=== PATIENT | female | born 1995 | race Caucasian/White ===

== ENCOUNTER 2022-10-13 19:51 | Outpatient (REF) | payer OTHER, SELFPAY ==
[2022-10-19 15:08] LABS: Age Gdln ACOG Testing Note (.); IGP, rfx Aptima HPV ASCU Note (.)
== END 2022-10-13 19:52 | disposition home or self-care (01) ==
LOC: LAB 19:51
PROVIDERS: Visit Provider Obstetrics & Gynecology
DX: Z01.419 Encounter for gynecological examination (general) (routine) without abnormal findings (principal)
CPT/HCPCS: G0145

== ENCOUNTER 2022-11-17 14:28 | Outpatient (OUT) | payer OTHER, SELFPAY ==
--- NOTE | 2022-11-17 14:32 | US_ITS ---
The [address] [address] Patient Name: ADINA RENE MRN: [id number] date: 1995 Sex: F Assigned Patient Location: [place] Current Patient Location: [place] Accession/Order Number: [id number] Exam Date: 11/17/2022 14:33 Report Date: 11/17/2022 15:41 At the request of: RAFAEL BORDEN Procedure: US pelvis w/ transvaginal EXAM: US pelvis w/ transvaginal HISTORY: PELVIC PAIN COMPARISON: Pelvic ultrasound 11/12/2020. TECHNIQUE: Real-time transabdominal and transvaginal imaging of the pelvis. Findings: Evaluation is limited due to patient's body habitus. The uterus measures 8.4 x 5.0 x 6.6 cm. Unremarkable parenchymal echotexture. No intrauterine mass. The endometrium is 0.9 cm thick. No fluid within the endometrial canal. The right ovary is not visualized due to overlying bowel gas. The left ovary measures 2.0 x 1.4 x 2.9 cm and is unremarkable.Blood flow is identified in the left ovary. No adnexal mass or free pelvic fluid. US/US pelvis w/ transvaginal IMPRESSION: 1. Nonvisualization of the right ovary. Otherwise, unremarkable pelvic ultrasound for age. Electronically authenticated by: STEPHANIE MUÑOZ Date: 11/17/2022 15:41
== END 2022-11-17 14:29 | disposition home or self-care (01) ==
LOC: US 14:28
PROVIDERS: Visit Provider Obstetrics & Gynecology
DX: R10.2 Pelvic and perineal pain (principal)
CPT/HCPCS: 76830; 76856

== ENCOUNTER 2023-10-18 21:51 | Outpatient (REF) | payer OTHER, SELFPAY ==
[2023-10-24 14:10] LABS: Age Gdln ACOG Testing Note (.); IGP, rfx Aptima HPV ASCU Note (.)
== END 2023-10-18 21:52 | disposition home or self-care (01) ==
LOC: LAB 21:51
PROVIDERS: Visit Provider Obstetrics & Gynecology
DX: Z01.419 Encounter for gynecological examination (general) (routine) without abnormal findings (principal)
CPT/HCPCS: 88175

== ENCOUNTER 2024-09-16 21:44 | Emergency (ER) | payer OTHER, SELFPAY ==
--- OUTSIDE RECORDS SUMMARY | 2013-11-24 09:40 | XMS_ITS | Continuity of Care Document ---
Author Organization [facility] Address [address] [facility] [place] [address] Phone Care Team Providers Care Service Desk Team Lead Name Role Phone Filomena Alvarado CNP, CNP Unavailable Un available Allergies, Adverse Reactions, Alerts Substance Reaction Status Criticality No Known Allergies Active No Inform ation Medications Medication Instructions Dosage Effective Dates (start - stop) Status Comments Sprintec (28) 0.25 mg-35 mcg tablet take 1 tablet by oral route every day 1.00 tablet - Active tobramycin 0.3 % eye drops instill 1 drop by ophthalmic route every 4 hours into affected eye(s) 1.00 drop - Active Procedures Procedure Date OFFICE/OUTPATIENT VISIT, [facility] Advance Directives Directive Yes / No Effective Date File Name No Information Encounters Encounter Description Practice Location Reason(s) For Visit Diagnoses Date Provider Providers Copied on Encounter OFFICE/OUTPA TIENT VISIT, [address] [facility], [address] [facility] [address], [place], [place], [id number] , [place] tel:[phone] [facility] eye problem (chief complaint) Conjunctivitis [address] [facility] [address], [place], [place], [id number], [place]. tel:[phone] Referring Provider: Filomena mckeon CNP, [facility] [address], [place], [address]. tel:[phone] Family History Family Member Type Diagnosis Age At Onset No Information Payers Payer name Insurance type Covered republican ID Authoriza tililiana(s) [facility] [id number] Social History Type Description Quantity Date Captured Comments Alcohol Use Details Unknown Caffeine Use Details Unknown Tobacco Use Status Never smoked tobacco 2013 Smoking Status Never smoker Non-Smoking Tobacco Use Details : No Details Available : No Details Available Sex Female Vital Signs Date / Time: Height Weight BMI Pulse Rate Blood Pressure Temperature Respiratory Rate Body Surface Area Head Circumference Head Circ. Percentile Wt./[place]. Percentile BMI percentile Pulse Ox Inhaled Ox 2:05 PM 112.037 kg (247.00 lbs) 82 /min 126/80 mm[Hg] 98.20 F 14 /min Chief Complaint And Reason For Visit From encounter dated '11/24/2013 13:40'. eye problem (chief complaint). Description: Onset: 1 Week. The problem is severe. The problem has worsened. The symptoms are persistent. Symptoms located at left upper lid and left conjunctiva. Discomfort is described as dull pain and sharp pain. Patient reports no discharge. Symptoms are associated with contact lens use. Symptoms are not associated with exposure to pink eye. Aggravating factors include contact lenses and light. Symptoms are relieved by OTC eye drops. Associated symptoms include eye pain, headache and rhinorrhea. Pertinent negatives include blurred vision. Reason For Referral Reason For Referral No Information History Of Present Illness Encounter Date Complaint History Of Prese nt Illness eye problem Onset: 1 Week. T he problem is severe. The problem has worsened. The symptoms are persistent. Symptoms located at left upper lid and left conjunctiva. Discomfort is described as dull pain and sharp pain. Patient reports no discharge. Symptoms are associated with contact lens use. Symptoms are not associated with exposure to pink eye. Aggravating factors include contact lenses and light. Symptoms are relieved by OTC eye drops. Associated symptoms include eye pain, headache and rhinorrhea. Pertinent negatives include blurred vision. Functional Status Date Functional Assessmen t No Information Instructions Date Instruction Additional Infor mation see plan detail Related to Conju nctivitis Assessments Type Assessment Date assessment Conjunctivitis Mental Status Date Cognitive Assessment Orientation - Gunter ed to time, place, person, situation. Patient Care Teams Name Effective Dates (start - stop) Status Members No Information
--- OUTSIDE RECORDS SUMMARY | 2024-09-12 08:44 | XMS_ITS ---
Author Name Auto Generated Organization OHIP Care Team Providers Care Preparatory Technician Name Role Phone QUIQUE VARGAS Attending Unavailable ROXANN, LINNEA J Primary Care Unavailable QUIQUE VARGAS Attending Unavailable QUIQUE VARGAS Referring Unavailable ROXANN, LINNEA J Primary Care Unavailable QUIQUE VARGAS M Referring Unavailable ROXANN, LINNEA J Primary Care Unavailable ROXANN LINNEA J Attending Unavailable ROXANN LINNEA J Attending Unavailable ROXANNALBERTINAH J Attending Unavailable RAFAEL BORDEN Attending Unavailable ROXANN, LINNEA J Attending Unavailable ROXANN, LINNEA J Attending Unavailable Roxann, Linnea J Primary Care Unavailable Kuns - CHC, Black P Admitting Unavailable Kuns - CHC, Black P Attending Unavailable Roxann, Linnea J Admitting Unavailable Roxann, Linnea J Primary Care Unavailable Roxann, Linnea J Attending Unavailable Quique Vargas Attending Unavailable Nidia Hughes Referring Unavailable Roxann, Linnea J Primary Care Unavailable Steven Vargasan Admitting Unavailable ROXANN, Linnea J Admitting Unavailable ROXANN, Linnea J Attending Unavailable Cliff Gusman. Attending Unavailable Cliff Gusman. Attending Unavailable Santos Booker Attending Unavailable Cliff Gusman Attending Unavailable Linnea HACKETT Admitting Unavailable Linnea HACKETT Attending Unavailable MOSHE MANRIQUEZ Attending Unavailable LINNEA HACKETT Primary Care Unavailabl e ROXANN, LINNEA KAISER Primary Care Unavailabl e BOBO SLAUGHTER Attending Unavailable KIMBERLY HENDERSON Referring Unavailable RUDDY SLATER Referring Unavailable KIMBERLY HENDERSON Attending Unavailable LINNEA HACKETT Primary Care Unavailabl e PROBLEMS DATE TYPE CONDITION / CODE ATTENDING STATUS [facility] 09/12/2024 Admitting Diagnosis Type 2 diabetes mellitus without complications / E11.9(ICD-10) QUIQUE VARGAS [facility] 08/29/2024 Active Abdominal bloati ng / R14.0(ICD-10) BOBO SLAUGHTER [facility] 08/29/2024 Active Epigastric pain / R10.13(ICD-10) BOBO SLAUGHTER Active [facility] 07/30/2024 Active Dyspepsia / R10.13(ICD-10) KIMBERLY HENDERSON Active [facility] 07/30/2024 Active Unintentional we ight loss / R63.4(ICD-10) KIMBERLY HENDERSON Active [facility] 06/21/2024 Active Generalized abdominal pain / R10.84(ICD-10) MOSHE MANRIQUEZ Active [facility] 06/21/2024 Active Nausea and vomit ing, unspecified vomiting type / R11.2(ICD-10) MOSHE MANRIQUEZ Active [facility] 06/21/2024 Active Decreased appeti te / R63.0(ICD-10) MOSHE MANRIQUEZ Active [facility] 06/21/2024 Active Acute cystitis w ith hematuria / N30.01(ICD-10) MOSHE MANRIQUEZ Active [facility] 05/08/2024 Admitting Diagnosis Postural orthostatic tachycardia syndrome (POTS) / G90.A(ICD-10) QUIQUE VARGAS [facility] 05/08/2024 Admitting Diagnosis Syncope and collapse / R55(ICD-10) QUIQUE VARGAS [facility] 05/08/2024 Admitting Diagnosis Hypothyroidism, unspecified / E03.9(ICD-10) [facility] 05/08/2024 Admitting Diagnosis Body mass index (BMI) 40.0-44.9, adult (Multi) / Z68.41(ICD-10) [facility] 05/08/2024 Admitting Diagnosis Other specified health status / Z78.9(ICD-10) [facility] PROCEDURES No Procedure Records Found RESULTS ANES POSTPROC EVAL Observed: 08/30/2024 12:18 PM Status: COMPLETED Source: [facility] HNO ID: [id number] Author: CAMI ESPINOSA APRN.CRNA Service: Anesthesiology Author Type: Nurse Oxygraph Operator Type: Anesthesia Postprocedure Evaluation Filed: 08/30/2024 12:20 Note Text: POST ANESTHESIA EVALUATION NOTE : 1995 Procedure Summary Date: 08/29/24 Room / Location: Ambulatory Surgery Anesthesia Start: 1111 Anesthesia Stop: 1139 Procedures: EGD DIAGNOSTIC COLONOSCOPY DIAGNOSTIC Diagnosis: Nausea and vomiting, unspecified vomiting type Abdominal bloating Epigastric pain Scheduled Providers: Bobo Slaughter MD Responsible Provider: Cami Espinosa APRN.CRNA Anesthesia Type: MAC ASA Status: 3 Anesthesia Type: MAC Last Vitals Vitals Value Taken Time BP 128/77 08/29/24 1205 Temp 08/30/24 1218 HR SpO2 80 08/29/24 1207 Resp 16 08/29/24 1205 SpO2 99 % 08/29/24 1207 Vitals shown include unfiled device data. Post Anesthesia Patient Status Patient Evaluation: bedside. Anticipated Disposition: phase 2 then home. Neurological Status: aware and responsive. Pulmonary Status: breathing comfortably on room air Airway Control: returned to baseline unsupported. Cardiovascular Status: stable. Pain Management: clinically adequate Postoperative Hydration: acceptable. Intraoperative Events: no significant anesthesia events Post Operative Nausea/Vomiting Status: no significant post operative nausea or vomiting Recommendation: continue current plan of care. 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 Refer to note in patient chart for documentation of history and physical. Last Colonoscopy: none. The patient's first colonoscopy is today. Referring Physician: Kimberly Henderson CNP (Referring MD), Linnea Hackett (Referring MD) Medicines: Monitored Anesthesia Care Complications: No immediate complications. Requesting Provider: Procedure: Pre-Anesthesia Assessment: - Prior to the procedure, a History and Physical was performed, and patient medications and allergies were reviewed. The patient is competent. The risks and benefits of the procedure and the sedation options and risks were discussed with the patient. All questions were answered and informed consent was obtained. Patient identification and proposed procedure were verified by the physician, the nurse and the bridge instructor in the procedure room at 11:11. Mental Status Examination: alert and oriented. Airway Examination: normal oropharyngeal airway and neck mobility. Respiratory Examination: clear to auscultation. CV Examination: normal. Prophylactic Antibiotics: The patient does not require prophylactic antibiotics. Prior Anticoagulants: The patient has taken no anticoagulant or antiplatelet agents. ASA Grade Assessment: II - A patient with mild systemic disease. After reviewing the risks and benefits, the patient was deemed in satisfactory condition to undergo the procedure. The anesthesia plan was to use monitored anesthesia care (MAC). Immediately prior to administration of medications, the patient was re-assessed for adequacy to receive sedatives. The heart rate, respiratory rate, oxygen saturations, blood pressure, adequacy of pulmonary ventilation, and response to care were monitored throughout the procedure. The physical status of the patient was re-assessed after the procedure. After I obtained informed consent, the scope was passed under direct vision. Throughout the procedure, the patient's blood pressure, pulse, and oxygen saturations were monitored continuously. The Colonoscope was introduced through the anus and advanced to the terminal ileum, with identification of the appendiceal orifice and IC valve. I was present and participated during the entire procedure, including non-mendez portions, and during the administration and monitoring of Moderate Sedation. The colonoscopy was performed without difficulty. The patient tolerated the procedure well. The quality of the bowel preparation was good. The terminal ileum, ileocecal valve, appendiceal orifice, and rectum were photographed. Scope Withdrawal Time: 0 hours 8 minutes 40 seconds Moderate Sedation: MAC anesthesia was administered by the anesthesia team. Findings: The perianal and digital rectal examinations were normal. Pertinent negatives include normal sphincter tone. The colon (entire examined portion) appeared normal. There is no endoscopic evidence of bleeding, diverticula, erythema, inflammation, mass, polyps, stenosis, stricture or ulcerations in the entire colon. The terminal ileum appeared normal. Impression: - The entire examined colon is normal. - The examined portion of the ileum was normal. - No specimens collected. Recommendation: - Patient has a contact number available for emergencies. The signs and symptoms of potential delayed complications were discussed with the patient. Return to normal activities tomorrow. Written discharge instructions were provided to the patient. - Resume previous diet. - Continue present medications. - Repeat colonoscopy at age 45 for surveillance. - Return to referring physician PRN. - Use Citrucel one tablespoon PO daily indefinitely. - Discharge patient to home (ambulatory). Procedure Code(s): --- Professional --- 21759, Colonoscopy, flexible; diagnostic, including collection of specimen(s) by brushing or washing, when performed (separate procedure) Diagnosis Code(s): --- Professional --- R10.84, Generalized abdominal pain CPT copyright 2020 [employer]. All rights reserved. The codes documented in this report are preliminary and upon pharmacist assistant review may be revised to meet current compliance requirements. Scope In: 11:25:29 AM Scope Out: 11:38:57 AM MD Bobo Sparks MD 08/29/2024 11:41:28 AM This report has been signed electronically by Bobo Slaughter MD Number of Addenda: 0 Note Initiated On: 08/29/2024 11:23 AM Estimated Blood Loss: Estimated blood loss: none. TISS PATH BX REPORT Collected: 08/30/19 11:16 AM Status: F Source: [facility] Order Comment: Specimen Type : TISSUE SPECIMEN Ordering Facility: [facility] Address: [address] [place] [address] TYPE CODE TESTS RESULT OUT OF RANGE REFERENCE UNITS PATHOLOGY [id number] CASE REPORT Result Comment: Surgical Pat hology Report Case: [id number] Authorizing Provider: Bobo Slaughter MD Collected: 08/29/2024 11:16 AM Ordering Location: Ambulatory Surgery Received: 08/29/2024 08:14 PM Pathologist: Ed Pruett MD, PhD Specimens: A) - Small Bowel, Duodenum, Biopsy, r/o celiac B) - Stomach, Biopsy, r/o h. pylori C) - Esophagus, Biopsy, r/o eoe and barretts PATHOLOGY [id number] FINAL DIAGNOSIS Result Comment: A. Duodenum, biopsy: - Duodenal mucosa with no significant diagnostic abnormality. B. Stomach, biopsy: - Reactive gastric antral and oxyntic mucosa with focal minimally active inflammation. - No evidence of H. pylori microorganisms on H&E sections. C. Esophagus, biopsy: - Reactive squamous mucosa and inflamed gastric cardia-type mucosa, negative for intestinal metaplasia. at 1549 EDT PATHOLOGY [id number] GROSS DESCRIPTION Result Comment: A. Small [place] el, Duodenum, Biopsy Received in formalin are multiple pieces of payne-brown, soft tissue aggregating to 1.0 x 0.3 x 0.2 cm. Totally submitted in one cassette. B. Stomach, Biopsy Received in formalin are multiple pieces of payne-brown, soft tissue aggregating to 1.6 x 0.4 x 0.2 cm. Totally submitted in one cassette. C. Esophagus, Biopsy Received in formalin are multiple pieces of payne, soft tissue aggregating to 1.8 x 0.3 x 0.2 cm. Totally submitted in one cassette. DL August 30, 2024 12:14 AM Gross examination performed at [facility], [address] [place] [address] PATHOLOGY [facility] FINAL PERFORMING LAB Result Comment: Diagnostic i nterpretation performed at: [facility], [address] [place] [address], Desk [place] [id number] CLIA# [id number] Mandrel Maker: Jose Heaton MD PATHOLOGY [id number] AP DISCLAIMER Result Comment: Laboratory D eveloped Test (LDT) Disclaimer: Performance characteristics of immunohistochemical, immunofluorescent, and chromogenic in-situ hybridization tests have been determined by the performing laboratory within [facility]'s Erick Macias Pathology and Laboratory Medicine Department ([facility], [facility], [facility], [facility], [facility], Count Includes [facility], or [facility]) in a manner consistent with CLIA requirements. One or more of these tests may not have been cleared or approved by the FDA. [facility] is regulated under CLIA as qualified to perform high-complexity testing. These tests are used for clinical purposes. These should not be regarded as investigational or for research. Positive and negative controls stain appropriately. Performed By: #### [id number] # ### [facility] CLIA [id number] [address] [place] [address] [place] HISTORY PHYSICAL Observed: 08/29/2024 11:15 AM Status: COMPLETED Source: [facility] HNO ID: [id number] Author: BOBO SLAUGHTER MD Service: Gastroenterology Author Type: Physician Type: H&P Filed: 08/29/2024 11:05 Note Text: HISTORY AND PHYSICAL Adina Rene, 29 year old female Current history and physical on file: Yes Is a new History and Physical required for today's visit? Yes Indication for procedure: Abdominal pain and Nausea AND Vomiting PROCEDURE(S) SCHEDULED FOR: Colonoscopy with or without biopsies and with or without removal of polyps or lesions, dilation (any means), treatment of bleeding (any means), based on clinical findings. and EGD (Esophagogastroduodenoscopy) with or without biopsies, removal of polyps or lesions, dilation ( any means), treatment of bleeding ( any means), Barrx treatment of Mannie's Esophagus, image tube placement or cryo therapy treatment based on clinical findings. BASELINE BEHAVIOR: Calm BASELINE ORIENTATION: A AND O x3 All medications and allergies reviewed: Yes Skin Assessment: Warm dry mucus membranes pink Airway/Respiratory Assessment: Airway: visualization of the uvula- Yes Mouth: opening greater than 2 fingerbreadths- Yes Neck: full range of motion- Yes Breath sounds clear/equal- Yes Cardiac Assessment: Regular rate and rhythm without murmur Abdominal Assessment: Abdomen soft, non-tender, no masses or organomegaly. Sedation Plan: MAC Additional Comments: None Bobo Slaughter MD NURSING PROG Observed: 08/29/2024 11:08 AM Status: COMPLETED Source: [facility] HNO ID: [id number] Author: TASIA EL RN Service: Nursing Author Type: Registered Nurse Type: Nursing Progress Note Filed: 08/29/2024 11:09 Note Text: PRE OP LEARNING ASSESSMENT PROCEDURE/SURGERY: GI PROCEDURES: Colonoscopy and EGD READINESS TO LEARN COGNITIVE ABILITY: Alert and oriented MOTIVATION TO LEARN: Interested FAMILY SUPPORT: Unable to assess - Family not present PATIENT LEARNS BEST BY: Individual Instruction Verbal Instruction FACTORS AFFECTING LEARNING: None PHYSICAL LIMITATIONS AFFECTING LEARNING: None Electronically Signed By: Tasia El RN In Department: AMBULATORY SURGERY UPPER GI ENDOSCOPY Observed: 08/29/2024 11:02 AM Status: C Source: [facility] G[facility] Patient Name: Adina Rene Procedure Date: 08/29/2024 11:02 AM Date of : 1995 Admit Type: Outpatient Age: 29 Room: [facility] 1 Gender: Female 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 Refer to note in patient chart for documentation of history and physical. Patient has symptoms of acute dyspepsia and acute vomiting. Referring Physician: Kimberly Henderson CNP (Referring MD), Linnea Hackett (Referring MD) Medicines: Monitored Anesthesia Care Complications: No immediate complications. Requesting Provider: Procedure: Pre-Anesthesia Assessment: - Prior to the procedure, a History and Physical was performed, and patient medications and allergies were reviewed. The patient is competent. The risks and benefits of the procedure and the sedation options and risks were discussed with the patient. All questions were answered and informed consent was obtained. Patient identification and proposed procedure were verified by the physician, the nurse and the bridge instructor in the procedure room at 11:11. Mental Status Examination: alert and oriented. Airway Examination: normal oropharyngeal airway and neck mobility. Respiratory Examination: clear to auscultation. CV Examination: normal. Prophylactic Antibiotics: The patient does not require prophylactic antibiotics. Prior Anticoagulants: The patient has taken no anticoagulant or antiplatelet agents. ASA Grade Assessment: II - A patient with mild systemic disease. After reviewing the risks and benefits, the patient was deemed in satisfactory condition to undergo the procedure. The anesthesia plan was to use monitored anesthesia care (MAC). Immediately prior to administration of medications, the patient was re-assessed for adequacy to receive sedatives. The heart rate, respiratory rate, oxygen saturations, blood pressure, adequacy of pulmonary ventilation, and response to care were monitored throughout the procedure. The physical status of the patient was re-assessed after the procedure. After obtaining informed consent, the endoscope was passed under direct vision. Throughout the procedure, the patient's blood pressure, pulse, and oxygen saturations were monitored continuously. The Endoscope was introduced through the mouth, and advanced to the third part of duodenum. I was present and participated during the entire procedure, including non-mendez portions, and during the administration and monitoring of Moderate Sedation. The upper GI endoscopy was accomplished without difficulty. The patient tolerated the procedure well. Moderate Sedation: MAC anesthesia was administered by the anesthesia team. Findings: LA Grade A (one or more mucosal breaks less than 5 mm, not extending between tops of 2 mucosal folds) esophagitis with no bleeding was found 37 to 38 cm from the incisors. Biopsies were taken with a cold forceps for histology. The exam of the esophagus was otherwise normal. The entire examined stomach was normal. Biopsies were taken with a cold forceps for histology. The examined duodenum was normal. Biopsies were taken with a cold forceps for histology. Impression: - LA Grade A reflux esophagitis with no bleeding. Biopsied. - Normal stomach. Biopsied. - Normal examined duodenum. Biopsied. Recommendation: - Await pathology results. - Resume previous diet. - Continue present medications. - Observe patient's clinical course. - Discharge patient to home (ambulatory). - Perform a colonoscopy today. Procedure Code(s): --- Professional --- 27888, Esophagogastroduodenoscopy, flexible, transoral; with biopsy, single or multiple Diagnosis Code(s): --- Professional --- K21.00, Gastro-esophageal reflux disease with esophagitis, without bleeding R11.2, Nausea with vomiting, unspecified CPT copyright 2020 [employer]. All rights reserved. The codes documented in this report are preliminary and upon pharmacist assistant review may be revised to meet current compliance requirements. Scope In: 11:15:53 AM Scope Out: 11:20:18 AM MD Bobo Sparks MD 08/29/2024 11:23:44 AM This report has been signed electronically by Bobo Slaughter MD Number of Addenda: 0 Note Initiated On: 08/29/2024 11:02 AM Estimated Blood Loss: Estimated blood loss: none. ANES PRE-OP Observed: 08/29/2024 11:00 AM Status: COMPLETED Source: [facility] HNO ID: [id number] Author: CAMI ESPINOSA APRN.CRNA Service: Anesthesiology Author Type: Nurse Oxygraph Operator Type: Anesthesia Preprocedure Evaluation Filed: 08/29/2024 11:03 Note Text: ANESTHESIOLOGY DAY OF SURGERY NOTE : 1995 Procedure Information Date/Time: 08/29/24 1115 Scheduled providers: Bobo Slaughter MD Procedures: EGD DIAGNOSTIC COLONOSCOPY DIAGNOSTIC Location: Ambulatory Surgery Estimated body mass index is 41.78 kg/m? as calculated from the following: Height as of 06/21/24: 172.7 cm (5' 8 ). Weight as of 07/30/24: 124.6 kg (274 lb 12.9 oz). Most recent hematocrit and potassium results: Hematocrit 38.2 06/21/2024 Potassium 4.0 06/21/2024 Relevant Problems ENDO (+) Acquired hypothyroidism I - PHYSICAL EVALUATION AIRWAY Patient intubated: No. Tracheostomy tube not present Mallampati: I. TM distance: >3 FB. Neck ROM: full ROM without neurological symptoms. Mouth opening: adequate. Short neck: no. Thick neck: no Amador present: no Microretrognathia/Micronagthia/Recessed Chin: No DENTAL Dental findings: teeth intact. Additional exam findings: no II - ANESTHESIA PLAN ASA Score: 3 Anesthetic Plan: MAC NPO Status: adequate Beta Ruslan Monitoring Plan Monitoring plan: standard ASA. Post Procedure Analgesic Plan Postoperative analgesic plan: per surgical service. Informed Consent Anesthetic risks, benefits, alternatives, personnel and consent discussed: yes. Patient / Responsible Alliance Party agrees to proceed: yes Patient / Surrogate agrees to blood products: blood products not planned DNR status not reviewed with patient and/or family prior to surgery. Significant changes in the patient condition since the History and Physical, not otherwise documented in primary service progress note: no. Potential Anesthesia issues that may suggest increased risk of complications or contraindication to planned procedure: none. No vitals data found for the desired time range. Outpatient Medications as of 08/29/2024 Medication Sig - albuterol-budesonide HFA (AIRSUPRA) 90-80 mcg/actuation inhaler Inhale 2 puffs as instructed every 4 hours as needed. - levothyroxine (SYNTHROID) 100 mcg tablet Take 100 mcg by mouth daily before breakfast. - omeprazole (PRILOSEC) 20 mg capsule Take 20 mg by mouth once daily. - metFORMIN (GLUCOPHAGE) 500 mg tablet Take 500 mg by mouth daily with breakfast. - Cholecalciferol, Vitamin D3, (VITAMIN D) 25 mcg (1,000 unit) cap Take 1,000 Units by mouth once daily. (Patient not taking: Reported on 07/30/2024) No current facility-administered medications on file as of 08/29/2024. I have interviewed and examined the patient. I have reviewed the medical record and/or the pre-anesthesia evaluation, pertinent labs, and test results. This contains updated information obtained within 48 hours of Surgery/Procedure. SIGNATURE: Cami Espinosa APRN.CRNA PATIENT NAME: Adina Rene DATE: August 29, 2024 TIME: 11:00 AM CSN: [id number] CA TILT TABLE TEST Observed: 08/28/2024 10:10 AM Status: COMPLETED Source: [facility] [place] [address] Cardiology Report Signed Patient: Adina Rene MR#: [id number] : 1995 Acct:[id number] Age/Sex: 29 / F ADM Date: 08/28/24 Loc: Room: Type: [facility] Attending Dr: Quique Vargas MD Copies to: Nidia Hughes MD Ordering Provider: Nidia Hughes MD Date of Service: 08/28/24 CA/CA tilt table test: Syncope, pre-syncope REFERRING PHYSICIAN: Dr. Vargas. REASON FOR STUDY: Orthostatic lightheadedness, dizziness, and presyncope. PROCEDURE: The patient underwent head-up tilt table test. She initially received a total of 250 mL of normal saline. Continuous blood pressure, ultrasound, and heart rate monitoring were established. The patient was tilted to the upright position. Initially, she demonstrated physiologic response to tilt maneuver. Around minute 8 through minute 21 of the test, the patient developed gradual profound symptomatic hypotension with systolic blood pressure down to 70, which was not associated with excessive tachycardia or bradycardia. This pattern seemed to be more consistent with autonomic dysfunction. The patient was placed in the supine position with improvement of his symptoms. CONCLUSION: Positive tilt table test for induction of symptomatic profound hypotension without excessive tachy or bradyarrhythmia consistent with autonomic dysfunction/autonomic failure with abnormal response to tilt maneuver. RECOMMENDATION: Advise the patient to increase her fluid and salt intake and assume supine position with any prodromal symptoms and to continue her long-term followup with her primary building associate. Transcribed By: MARY JANE 08/28/24 1738 Dictated By: Nidia Hughes MD 08/28/24 1010 Signed By: <Electronically signed by MD Nidia Hughes> 08/29/[address] ABDOMEN PELVIS WO CON Observed: 08/14 10:31 AM Status: COMPLETED Source: [facility] [place] [address] CT Scan Report Signed Patient: Adina Rene MR#: [id number] : 1995 Acct:[id number] Age/Sex: 29 / F ADM Date: 08/14/24 Loc: CT Room: Type: [facility] Attending Dr: Linnea Hackett PA-C, Copies to: Linnea Hackett Pa-C Ordering Provider: Linnea Hackett Pa-C Date of Service: 08/14/24 CT/CT abdomen pelvis wo con: R10.32, R19.05 CT ABDOMEN AND PELVIS WITHOUT INTRAVENOUS CONTRAST: CLINICAL HISTORY: Periumbilical mass COMPARISON: CT abdomen pelvis from outside facility 02/14/2023 TECHNIQUE: Spiral images were obtained through the abdomen and pelvis without intravenous contrast. This CT exam was performed using one or more following dose reduction techniques: Automated exposure control, adjustment of the mA and/or kV according to patient size, or use of iterative reconstruction technique. FINDINGS: Lung Bases: [No focal opacity within the bases. Small hiatal hernia.] Organs:Liver, spleen, adrenals, kidneys, pancreas unremarkable. Negative for nephrolithiasis. No hydronephrosis. Prior cholecystectomy.[ GI: Small hiatal hernia. Loof-tl-gfpejhlh retained stool within the colon. Mild colonic diverticulosis. Unremarkable appendix.[ Pelvis:[Bladder is collapsed. Uterus unremarkable. No adnexal mass.] Peritoneum/Retroperitoneum:No free air or free fluid. No adenopathy.[ Abd wall/Bones:Cutaneous markers right umbilical region. Likely areas of scarring noted right periumbilical region appearing decrease prior examination[no evidence of periumbilical mass identified. No suspicious osseous lesion. CT/CT abdomen pelvis wo con IMPRESSION: No soft tissue mass at site of clinical concern. Impression dictated by: Meet Miller M.D. 08/14/2024 11:03 AM Dictation Location: RADIO-PC-23 Transcribed By: [facility] 08/14/24 1103 Dictated By: Meet Miller MD 08/14/24 1031 Signed By: <Electronically signed by Meet Miller MD in OV> 08/14/24 1103 CNOV Observed: 07/30/2024 8:50 AM Status: COMPLETED Source: [facility] Office Visit ([facility]) ADINA RENE ([id number]) 1995 F Date Time Provider Department 07/30/24 8:50 AM KIMBERLY HENDERSON [facility] During your visit today, we recorded the following information about you: Pulse Blood pressure Weight 85/minute 120/81 124.6 kg Kimberly Henderson APRN.TAXONOMY TEACHER 07/30/2024 9:42 AM Signed Consultation requested by Dr. Ruddy Slater for an opinion regarding nausea/vomiting and abdominal pain. My final recommendations will be communicated back to the requesting physician by way of shared medical record or fax. REASON FOR VISIT: Abdominal Pain (Patient stated x2 years) HPI: Adina Rene is a 29 year old female who presents for chronic nausea, vomiting and abdominal pain which have been ongoing for approximately two years. Symptoms have progressively worsened, with significant exacerbations in May and June of this year. During these episodes, she was unable to retain any food, leading to an emergency room visit in June. Currently, she experiences intermittent severe nausea and vomiting, often occurring within 10 minutes of eating. If food is retained, she reports a sensation of it remaining in her stomach for 5-6 hours, accompanied by severe pain and bloating in the epigastric region. She describes the pain as hurts like no other and notes that her abdomen feels really hard and huge after eating. She denies daily heartburn or acid reflux but experiences these symptoms when food feels like it is sitting right here. To manage her symptoms, she often lies down immediately after eating in an attempt to keep food down. She denies any rectal bleeding. Patient has been taking omeprazole and Zofran for symptom management. Recently, her primary care physician prescribed Reglan, but she reports no improvement with this medication. She denies the use of injectable weight loss medications, marijuana, THC gummies, smoking, or alcohol consumption. She reports regular bowel movements and denies constipation. However, she has a history of severe constipation from fifth grade until about a year and a half ago, during which she would go three to four days without a bowel movement, sometimes causing her to miss school. She attributes the improvement in her bowel habits to a decreased food intake over the past year and a half due to her current symptoms. She has unintentionally lost 20 pounds since March of this year. Patient denies heartburn, regurgitation, dysphagia, changes in appetite, change in bowel habits, melena, hematochezia or hematemesis. No prior history of EGD or colonoscopy. No known FHx of GI tract malignancy or disease. History of cholecystectomy. Past Clinical Work-Up: [facility] 06/21/24: No acute findings in the abdomen or pelvis. MRI abdomen 02/23/23: Postoperative changes in the right ventral abdominal wall without residual/recurrent mass. Mild hepatic steatosis. ALLERGIES Allergen Reactions Bees Anaphylaxis Berries Hives raspberries PAST MEDICAL HISTORY Diagnosis Date Hypothyroidism Obesity Polycystic ovarian syndrome PAST SURGICAL HISTORY Procedure Laterality Date PAST SURGICAL HISTORY OF 12/2022 Resection right sided abdominal wall soft tissue mass No family history on file. Current Outpatient Medications Medication Sig levothyroxine (SYNTHROID) 100 mcg tablet Take 100 mcg by mouth daily before breakfast. FLUoxetine (PROZAC) 20 mg capsule Take 20 mg by mouth once daily. metFORMIN (GLUCOPHAGE) 500 mg tablet Take 500 mg by mouth daily with breakfast. Cholecalciferol, Vitamin D3, (VITAMIN D) 25 mcg (1,000 unit) cap Take 1,000 Units by mouth once daily. No current facility-administered medications for this visit. I have confirmed and edited, if necessary, the PFSH obtained by others. REVIEW OF SYSTEMS: CONSTITUTIONAL: Negative for malaise or fevers, +unintentional weight loss HEENT: Negative for frequent/significant headaches, changes in hearing/vision, nose bleeds or other nasal problems RESPIRATORY: Negative for cough, hemoptysis, wheezing or dyspnea CARDIOVASCULAR: Negative for chest pain, palpitations, syncope or lightheadedness GI: See HPI NEURO: Negative for encephalopathy, tremor or gait abnormality PSYCH: Negative for new changes in mood or affect I have confirmed and edited, if necessary, the PFSH obtained by others. PHYSICAL EXAM: BP 120/81 Pulse 85 Wt 124.6 kg (274 lb 12.9 oz) SpO2 97% BMI 41.78 kg/m? Gen: Comfortable in NAD Head: Normocephalic, atraumatic Skin: No jaundice, rashes or skin lesions Eyes: Sclera anicteric, conjunctiva pink Lungs: unlabored breathing Abd: Soft, non-distended, non-tender, bowel sounds present, no palpable masses or organomegaly Rectal Exam: Examination deferred by patient Neuro: Alert and oriented, no tremor or gross focal motor deficits Psych: Congruent mood and affect, appropriate insight and judgement ASSESSMENT/PLAN: Ms. 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 1. Nausea and vomiting, unspecified vomiting type (R11.2) Abdominal bloating (R14.0) Epigastric pain (R10.13) Dyspepsia (R10.13) Chronic symptoms for approximately two years, with exacerbations in May and June. Previous cholecystectomy and removal of a sarcoma. Currently on omeprazole, Zofran, and Reglan with minimal relief. No daily heartburn or acid reflux. Vomiting occurs shortly after eating, and food feels undigested. Abdominal bloating and epigastric pain present. No history of endoscopy or colonoscopy. No use of marijuana or THC products. No family history of gastrointestinal issues. Physical exam reveals tenderness in the epigastric area. - Ordered EGD and colonoscopy to evaluate for structural abnormalities. - Ordered gastric emptying study to assess for delayed gastric emptying. - Provided instructions for colonoscopy preparation using Miralax and Gatorade. - Advised patient that procedures will be performed at [facility]. - Discussed sedation and post-procedure care, including no working or driving on the day of the procedures. - Informed patient that if all tests are normal, a follow-up with a gastrointestinal MD 2. Unintentional weight loss (R63.4) Patient has lost approximately 20 pounds since March without trying. This note was dictated using [employer] speech recognition software and may contain some errors that were a result of the program not accurately transcribing what was dictated. Recording using [employer] (formerly [employer]) software for draft documentation of the visit was discussed with the patient/authorized direct sales representative; all questions welcomed and answered. Patient/authorized direct sales representative agreed to proceed Kimberly Henderson APRN.Kimberly Villafana APRN.CNP 07/30/2024 9:07 AM Addendum Thank you for seeing me in clinic today. As we discussed, my recommendations are as follows: 1.EGD 2.Colonoscopy 3.gastric emptying study If you have any questions about the above treatment plan, please do not hesitate to call the office or send me a [employer] message. COLONOSCOPY BOWEL PREPARATION INSTRUCTIONS MiraLAX? Your doctor has scheduled you for a colonoscopy. To have a successful colonoscopy, you must have a clean colon, that is empty. A clean colon allows your doctor to see the entire colon AND diagnose issues like polyps or cancer. For doctors, a clean colon is like driving on a ming day; a dirty colon like driving in a storm. It is very important that you follow these instructions exactly, or your colonoscopy may not be as effective, could be canceled, and you may need to do the bowel prep and colonoscopy again. TRANSPORTATION REQUIREMENTS You are receiving IV sedation. For your safety, a responsible adult escort must accompany you to and from your procedure: Your adult escort MUST be present with you at check-in for your colonoscopy. Your adult escort MUST remain in the endoscopy area until you are discharged. Your adult escort MUST transport you home once you are discharged. You are NOT allowed to operate any form of transportation (i.e. drive a car, bicycle, etc) or leave the Endoscopy Center ALONE. It is not safe to do so. If you cannot meet these requirements, your procedure will be canceled. MEDICATION REQUIREMENTS For your safety, certain medications will need to be stopped or adjusted before you can have your procedure: BLOOD THINNERS: If you take blood thinners, such as Coumadin (warfarin), Plavix (clopidogrel), Ticlid (ticlopidine hydrochloride), Agrylin (anagrelide), Xarelto (Rivaroxaban), Pradaxa (Dabigatran), Eliquis (Apixaban), or Effient (Prasugrel), contact the physician who is prescribing these medications at least 2 weeks prior to your procedure to discuss any necessary adjustments. DIABETES: If you take medications for diabetes, your dosage may need to be adjusted. If you are being treated for diabetes with insulin, diabetic pills, or other injectable medications do not take your REGULAR dose after midnight on the day of your procedure. If you are taking any other types of insulin such as Lantus, Humalog, NPH (long-acting insulin), or 70/30 insulin, take half your normal dose the day before your procedure. DIABETES/WEIGHT MANAGEMENT: If you take medications for weight-loss, your dosage may need to be adjusted Contact the doctor who prescribes this medication for further instructions. If you take medications for weight-loss like semaglutide (Ozempic, Wegovy, Rybelsus), dulaglutide (Trulicity), liraglutide (Victoza, Saxenda), exenatide (Byetta, Bydureon), or lixisenatide (Adylyxin), stop your medication 1 week prior to your procedure. If you take medications like canagliflozin (Invokana), dapagliflozin (Farxiga, Forxiga), empagliflozin (Jardiance), stop your medication 3 days prior to your procedure. If you take ertugliflozin (Steglatro) stop your medication 4 days prior to your procedure. IRON: If you take iron pills, STOP them 1 week BEFORE your procedure, may resume after. OTHER MEDS: May take all other medications (including aspirin, antibiotics, water pills / diuretics like Lasix or Metolozone, blood pressure meds, etc.) at their usual scheduled time with water. DIET REQUIREMENTS The day before your colonoscopy, you may have a clear liquid diet (see below). The day of your colonoscopy, you may continue a clear liquid diet until 3 hours before your colonoscopy. Within 3 hours of your colonoscopy, take only any medications (as above) with a sip of water. Clear Liquid Diet Broth (chicken, beef or vegetable broth or bullion. Just the broth, no solids). Water Coffee or Tea (NO milk or creamer), but sugar and sugar substitutes are allowed. Clear liquids including clear, yellow, green, blue (NO red, NO orange, NO purple) Sodas / soft drinks; Gatorade or other sports drinks Fruit juice (strained; no-pulp); Donte-Aid or flavored drinks Plain Jell-O or other gelatins Popsicles or hard candy Bowel prep can work differently from person to person. ? Some people's bowels move slowly and they may need different instructions. Please see your doctor in office or virtually for personalized bowel prep instructions if you have: BOWEL PREPARATION (MIRALAX/GATORADE) Split Dosing Bowel Prep: This means drinking your bowel prep in two doses. Split dosing helps clean your colon better and makes it less likely that your procedure will be canceled. You will need to purchase the following (no prescriptions are needed): 64 ounces Gatorade, Propel, Crystal Lite or other noncarbonated clear liquid sports drink (NOT red, orange, or purple). Diabetic patients buy sugar-free, e.g. Gatorade G2 4 Dulcolax laxative tablets containing 5mg bisacodyl each (do not buy the stool softener) 8.3 oz MiraLAX (238g) powder or generic polyethylene glycol 3350 (find in laxative aisle) The day before your colonoscopy mix 64 oz of the sports drink with 8.3 oz MiraLAX (238 g) in a pitcher. Stir or shake until MiraLAX completely dissolved. Chill if desired. On the evening before your colonoscopy: 5 PM take 4 Dulcolax laxative tablets with water by mouth. 6 PM drink the first half of the Gatorade/MiraLAX solution Drink one 8-ounce glass every 15 minutes. Six hours before your colonoscopy, drink the second half of the solution. Drink one 8-ounce glass every 15 minutes. You may continue a clear liquid diet until 3 hours before your colonoscopy. Bowel prep can work differently from person to person. Some people's bowels move slowly and they may need different instructions. Please see your doctor in office or virtually for personalized bowel prep instructions if you have: Medical condition that needs special accommodations Had a poor bowel prep results or failed bowel prep attempts in the past. Had difficulty with anesthesia during the procedure. FREQUENTLY ASKED QUESTIONS Q: What if I suffer from constipation? A: Recommend taking extra laxatives to resolve your constipation days prior to entering the bowel prep day. Q: What if have had prior poor preps results in past? A: Contact your physician as you will likely need additional bowel prep instructions. Q: What if I have motility issues like Parkinson's, MS (multiple sclerosis), wheelchair dependent, etc.? or on medications that slow colonic transit times (narcotics, gabapentin, anticholinergic medications etc.) A: Contact your physician as you will likely need extra time and additional laxatives to complete your bowel prep. Q: What if I cannot drink large volume of liquid? A: Start your prep 2-3 hours earlier to allow yourself more time to complete the entire prep. Q: What if I had bariatric surgery? Do I still have to complete the entire prep? A: Yes, gastric bypass surgery involves the stomach AND small bowel. You may need to drink smaller amounts, slower (may need more time to complete your bowel prep). Gastric bypass does not alter the length of your colon so you will need to complete the entire bowel prep, it may just take longer time to complete it. Q: What if I am on dialysis? A: Please consult your recruiting associate prior to scheduling to get instructions pertinent to you. In general, dialysis patients take the IPICOly bowel prep and have the procedure same day of their dialysis (colonoscopy in AM, dialysis in PM). Q: How do I know if something is considered as clear liquid diet? A: If you can pour it in a glass and you can see through it, it is considered clear liquid Q: Can I eat nuts, seeds, beans, popcorn, dried fruits, vegetables AND fruits that have skin peel? A: No, you will need to not eat these items starting 3 days prior to procedure. Q: Can I take Uber/Lyft/taxi/bus home? A: An adult MUST be present with you at check-in for your colonoscopy and remain in the endoscopy area until you are discharged. You can take Uber home only if this adult escort is with you at check in, remain in the endoscopy area until you are discharged, and takes the Uber with you to home. Q: Can I ?sleep it off? here and drive myself home? A: No, you must have an adult with you at time of procedure check in, remain in the endoscopy center during your procedure, and drive you home. You cannot drive a vehicle after your procedure the rest of the day. Q: What if I can't finish my bowel prep? A: If you cannot complete your entire bowel prep, there is high likelihood that your colonoscopy will need to be rescheduled due to inadequate prep quality. Referring Provider: RUDDY SLATER [[id number]] Allergies As of Date: 07/30/2024 Noted Allergy Reaction BEES 02/03/2023 10 - Anaphylaxis BERRIES 02/03/2023 4 - Hives Comments: raspberries Date Reviewed: 07/30/2024 Reviewed by: Jinny Zavaleta MA - Fully Assessed Reason for Visit: Abdominal Pain [1] Cmt: Patient stated about 2 years ago Primary Visit Diagnosis:Nausea and vomiting, unspecified vomiting type [R11.2] Other Visit Diagnoses:Abdominal bloating [R14.0] Epigastric pain [R10.13] Dyspepsia [R10.13] Unintentional weight loss [R63.4] Order(s):EGD DIAGNOSTIC [GI9] Order #: [id number] FUTURE COLONOSCOPY DIAGNOSTIC [GI11] Order #: [id number] FUTURE NM GASTRIC EMPTYING SOLID [9754974] Order #: [id number] FUTURE Prescriptions as of 07/30/2024 - albuterol-budesonide HFA (AIRSUPRA) 90-80 mcg/actuation inhaler Inhale 2 puffs as instructed every 4 hours as needed. - omeprazole (PRILOSEC) 20 mg capsule Take 20 mg by mouth once daily. - ondansetron (ZOFRAN) 4 mg tablet Take 4 mg by mouth three times a day as needed. - levothyroxine (SYNTHROID) 100 mcg tablet Take 100 mcg by mouth daily before breakfast. - metFORMIN (GLUCOPHAGE) 500 mg tablet Take 500 mg by mouth daily with breakfast. - Cholecalciferol, Vitamin D3, (VITAMIN D) 25 mcg (1,000 unit) cap Take 1,000 Units by mouth once daily. Problem List As Of Date 07/30/2024 Noted Resolved Acquired hypothyroidism [E03.9] 10/11/2019 Anxiety disorder [F41.9] 08/02/2022 Obesity (BMI 30-39.9) [E66.9] 01/30/2011 Depressive disorder [F32.A] 07/30/2024 Sarcoma (HCC) [C49.9] 03/28/2023 Other instructions from your clinician: Thank you for seeing me in clinic today. As we discussed, my recommendations are as follows: 1.EGD 2.Colonoscopy 3.gastric emptying study If you have any questions about the above treatment plan, please do not hesitate to call the office or send me a [employer] message. COLONOSCOPY BOWEL PREPARATION INSTRUCTIONS MiraLAX? Your doctor has scheduled you for a colonoscopy. To have a successful colonoscopy, you must have a clean colon, that is empty. A clean colon allows your doctor to see the entire colon AND diagnose issues like polyps or cancer. For doctors, a clean colon is like driving on a ming day; a dirty colon like driving in a storm. It is very important that you follow these instructions exactly, or your colonoscopy may not be as effective, could be canceled, and you may need to do the bowel prep and colonoscopy again. TRANSPORTATION REQUIREMENTS You are receiving IV sedation. For your safety, a responsible adult escort must accompany you to and from your procedure: Your adult escort MUST be present with you at check-in for your colonoscopy. Your adult escort MUST remain in the endoscopy area until you are discharged. Your adult escort MUST transport you home once you are discharged. You are NOT allowed to operate any form of transportation (i.e. drive a car, bicycle, etc) or leave the Endoscopy Center ALONE. It is not safe to do so. If you cannot meet these requirements, your procedure will be canceled. MEDICATION REQUIREMENTS For your safety, certain medications will need to be stopped or adjusted before you can have your procedure: BLOOD THINNERS: If you take blood thinners, such as Coumadin (warfarin), Plavix (clopidogrel), Ticlid (ticlopidine hydrochloride), Agrylin (anagrelide), Xarelto (Rivaroxaban), Pradaxa (Dabigatran), Eliquis (Apixaban), or Effient (Prasugrel), contact the physician who is prescribing these medications at least 2 weeks prior to your procedure to discuss any necessary adjustments. DIABETES: If you take medications for diabetes, your dosage may need to be adjusted. If you are being treated for diabetes with insulin, diabetic pills, or other injectable medications do not take your REGULAR dose after midnight on the day of your procedure. If you are taking any other types of insulin such as Lantus, Humalog, NPH (long-acting insulin), or 70/30 insulin, take half your normal dose the day before your procedure. DIABETES/WEIGHT MANAGEMENT: If you take medications for weight-loss, your dosage may need to be adjusted Contact the doctor who prescribes this medication for further instructions. If you take medications for weight-loss like semaglutide (Ozempic, Wegovy, Rybelsus), dulaglutide (Trulicity), liraglutide (Victoza, Saxenda), exenatide (Byetta, Bydureon), or lixisenatide (Adylyxin), stop your medication 1 week prior to your procedure. If you take medications like canagliflozin (Invokana), dapagliflozin (Farxiga, Forxiga), empagliflozin (Jardiance), stop your medication 3 days prior to your procedure. If you take ertugliflozin (Steglatro) stop your medication 4 days prior to your procedure. IRON: If you take iron pills, STOP them 1 week BEFORE your procedure, may resume after. OTHER MEDS: May take all other medications (including aspirin, antibiotics, water pills / diuretics like Lasix or Metolozone, blood pressure meds, etc.) at their usual scheduled time with water. DIET REQUIREMENTS The day before your colonoscopy, you may have a clear liquid diet (see below). The day of your colonoscopy, you may continue a clear liquid diet until 3 hours before your colonoscopy. Within 3 hours of your colonoscopy, take only any medications (as above) with a sip of water. Clear Liquid Diet Broth (chicken, beef or vegetable broth or bullion. Just the broth, no solids). Water Coffee or Tea (NO milk or creamer), but sugar and sugar substitutes are allowed. Clear liquids including clear, yellow, green, blue (NO red, NO orange, NO purple) Sodas / soft drinks; Gatorade or other sports drinks Fruit juice (strained; no-pulp); Donte-Aid or flavored drinks Plain Jell-O or other gelatins Popsicles or hard candy Bowel prep can work differently from person to person. ? Some people's bowels move slowly and they may need different instructions. Please see your doctor in office or virtually for personalized bowel prep instructions if you have: BOWEL PREPARATION (MIRALAX/GATORADE) Split Dosing Bowel Prep: This means drinking your bowel prep in two doses. Split dosing helps clean your colon better and makes it less likely that your procedure will be canceled. You will need to purchase the following (no prescriptions are needed): 64 ounces Gatorade, Propel, Crystal Lite or other noncarbonated clear liquid sports drink (NOT red, orange, or purple). Diabetic patients buy sugar-free, e.g. Gatorade G2 4 Dulcolax laxative tablets containing 5mg bisacodyl each (do not buy the stool softener) 8.3 oz MiraLAX (238g) powder or generic polyethylene glycol 3350 (find in laxative aisle) The day before your colonoscopy mix 64 oz of the sports drink with 8.3 oz MiraLAX (238 g) in a pitcher. Stir or shake until MiraLAX completely dissolved. Chill if desired. On the evening before your colonoscopy: 5 PM take 4 Dulcolax laxative tablets with water by mouth. 6 PM drink the first half of the Gatorade/MiraLAX solution Drink one 8-ounce glass every 15 minutes. Six hours before your colonoscopy, drink the second half of the solution. Drink one 8-ounce glass every 15 minutes. You may continue a clear liquid diet until 3 hours before your colonoscopy. Bowel prep can work differently from person to person. Some people's bowels move slowly and they may need different instructions. Please see your doctor in office or virtually for personalized bowel prep instructions if you have: Medical condition that needs special accommodations Had a poor bowel prep results or failed bowel prep attempts in the past. Had difficulty with anesthesia during the procedure. FREQUENTLY ASKED QUESTIONS Q: What if I suffer from constipation? A: Recommend taking extra laxatives to resolve your constipation days prior to entering the bowel prep day. Q: What if have had prior poor preps results in past? A: Contact your physician as you will likely need additional bowel prep instructions. Q: What if I have motility issues like Parkinson's, MS (multiple sclerosis), wheelchair dependent, etc.? or on medications that slow colonic transit times (narcotics, gabapentin, anticholinergic medications etc.) A: Contact your physician as you will likely need extra time and additional laxatives to complete your bowel prep. Q: What if I cannot drink large volume of liquid? A: Start your prep 2-3 hours earlier to allow yourself more time to complete the entire prep. Q: What if I had bariatric surgery? Do I still have to complete the entire prep? A: Yes, gastric bypass surgery involves the stomach AND small bowel. You may need to drink smaller amounts, slower (may need more time to complete your bowel prep). Gastric bypass does not alter the length of your colon so you will need to complete the entire bowel prep, it may just take longer time to complete it. Q: What if I am on dialysis? A: Please consult your recruiting associate prior to scheduling to get instructions pertinent to you. In general, dialysis patients take the RatePointytely bowel prep and have the procedure same day of their dialysis (colonoscopy in AM, dialysis in PM). Q: How do I know if something is considered as clear liquid diet? A: If you can pour it in a glass and you can see through it, it is considered clear liquid Q: Can I eat nuts, seeds, beans, popcorn, dried fruits, vegetables AND fruits that have skin peel? A: No, you will need to not eat these items starting 3 days prior to procedure. Q: Can I take Uber/Lyft/taxi/bus home? A: An adult MUST be present with you at check-in for your colonoscopy and remain in the endoscopy area until you are discharged. You can take Uber home only if this adult escort is with you at check in, remain in the endoscopy area until you are discharged, and takes the Uber with you to home. Q: Can I ?sleep it off? here and drive myself home? A: No, you must have an adult with you at time of procedure check in, remain in the endoscopy center during your procedure, and drive you home. You cannot drive a vehicle after your procedure the rest of the day. Q: What if I can't finish my bowel prep? A: If you cannot complete your entire bowel prep, there is high likelihood that your colonoscopy will need to be rescheduled due to inadequate prep quality. Medications Discontinued During This Encounter Prescriptions - FLUoxetine (PROZAC) 20 mg capsule (Discontinued) Reported on 07/30/2024 Encounter Status:Closed by KIMBERLY HENDERSON on 07/30/24 HISTORY PHYSICAL Observed: 07/30/2024 8:39 AM Status: COMPLETED Source: [facility] HNO ID: [id number] Author: KIMBERLY HENDERSON APRN.TAXONOMY TEACHER Service: ? Author Type: Nurse Practitioner Type: H&P Filed: 07/30/2024 09:42 Note Text: Consultation requested by Dr. Ruddy Slater for an opinion regarding nausea/vomiting and abdominal pain. My final recommendations will be communicated back to the requesting physician by way of shared medical record or fax. REASON FOR VISIT: Abdominal Pain (Patient stated x2 years) HPI: Adina Rene is a 29 year old female who presents for chronic nausea, vomiting and abdominal pain which have been ongoing for approximately two years. Symptoms have progressively worsened, with significant exacerbations in May and June of this year. During these episodes, she was unable to retain any food, leading to an emergency room visit in June. Currently, she experiences intermittent severe nausea and vomiting, often occurring within 10 minutes of eating. If food is retained, she reports a sensation of it remaining in her stomach for 5-6 hours, accompanied by severe pain and bloating in the epigastric region. She describes the pain as hurts like no other and notes that her abdomen feels really hard and huge after eating. She denies daily heartburn or acid reflux but experiences these symptoms when food feels like it is sitting right here. To manage her symptoms, she often lies down immediately after eating in an attempt to keep food down. She denies any rectal bleeding. Patient has been taking omeprazole and Zofran for symptom management. Recently, her primary care physician prescribed Reglan, but she reports no improvement with this medication. She denies the use of injectable weight loss medications, marijuana, THC gummies, smoking, or alcohol consumption. She reports regular bowel movements and denies constipation. However, she has a history of severe constipation from fifth grade until about a year and a half ago, during which she would go three to four days without a bowel movement, sometimes causing her to miss school. She attributes the improvement in her bowel habits to a decreased food intake over the past year and a half due to her current symptoms. She has unintentionally lost 20 pounds since March of this year. Patient denies heartburn, regurgitation, dysphagia, changes in appetite, change in bowel habits, melena, hematochezia or hematemesis. No prior history of EGD or colonoscopy. No known FHx of GI tract malignancy or disease. History of cholecystectomy. Past Clinical Work-Up: CTAP 06/21/24: No acute findings in the abdomen or pelvis. MRI abdomen 02/23/23: Postoperative changes in the right ventral abdominal wall without residual/recurrent mass. Mild hepatic steatosis. ALLERGIES Allergen Reactions Bees Anaphylaxis Berries Hives raspberries PAST MEDICAL HISTORY Diagnosis Date Hypothyroidism Obesity Polycystic ovarian syndrome PAST SURGICAL HISTORY Procedure Laterality Date PAST SURGICAL HISTORY OF 12/2022 Resection right sided abdominal wall soft tissue mass No family history on file. Current Outpatient Medications Medication Sig levothyroxine (SYNTHROID) 100 mcg tablet Take 100 mcg by mouth daily before breakfast. FLUoxetine (PROZAC) 20 mg capsule Take 20 mg by mouth once daily. metFORMIN (GLUCOPHAGE) 500 mg tablet Take 500 mg by mouth daily with breakfast. Cholecalciferol, Vitamin D3, (VITAMIN D) 25 mcg (1,000 unit) cap Take 1,000 Units by mouth once daily. No current facility-administered medications for this visit. I have confirmed and edited, if necessary, the PFSH obtained by others. REVIEW OF SYSTEMS: CONSTITUTIONAL: Negative for malaise or fevers, +unintentional weight loss HEENT: Negative for frequent/significant headaches, changes in hearing/vision, nose bleeds or other nasal problems RESPIRATORY: Negative for cough, hemoptysis, wheezing or dyspnea CARDIOVASCULAR: Negative for chest pain, palpitations, syncope or lightheadedness GI: See HPI NEURO: Negative for encephalopathy, tremor or gait abnormality PSYCH: Negative for new changes in mood or affect I have confirmed and edited, if necessary, the PFSH obtained by others. PHYSICAL EXAM: BP 120/81 Pulse 85 Wt 124.6 kg (274 lb 12.9 oz) SpO2 97% BMI 41.78 kg/m? Gen: Comfortable in NAD Head: Normocephalic, atraumatic Skin: No jaundice, rashes or skin lesions Eyes: Sclera anicteric, conjunctiva pink Lungs: unlabored breathing Abd: Soft, non-distended, non-tender, bowel sounds present, no palpable masses or organomegaly Rectal Exam: Examination deferred by patient Neuro: Alert and oriented, no tremor or gross focal motor deficits Psych: Congruent mood and affect, appropriate insight and judgement ASSESSMENT/PLAN: Ms. 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 1. Nausea and vomiting, unspecified vomiting type (R11.2) Abdominal bloating (R14.0) Epigastric pain (R10.13) Dyspepsia (R10.13) Chronic symptoms for approximately two years, with exacerbations in May and June. Previous cholecystectomy and removal of a sarcoma. Currently on omeprazole, Zofran, and Reglan with minimal relief. No daily heartburn or acid reflux. Vomiting occurs shortly after eating, and food feels undigested. Abdominal bloating and epigastric pain present. No history of endoscopy or colonoscopy. No use of marijuana or THC products. No family history of gastrointestinal issues. Physical exam reveals tenderness in the epigastric area. - Ordered EGD and colonoscopy to evaluate for structural abnormalities. - Ordered gastric emptying study to assess for delayed gastric emptying. - Provided instructions for colonoscopy preparation using Miralax and Gatorade. - Advised patient that procedures will be performed at [facility]. - Discussed sedation and post-procedure care, including no working or driving on the day of the procedures. - Informed patient that if all tests are normal, a follow-up with a gastrointestinal MD 2. Unintentional weight loss (R63.4) Patient has lost approximately 20 pounds since March without trying. This note was dictated using [employer] speech recognition software and may contain some errors that were a result of the program not accurately transcribing what was dictated. Recording using [employer] (formerly [employer]) software for draft documentation of the visit was discussed with the patient/authorized direct sales representative; all questions welcomed and answered. Patient/authorized direct sales representative agreed to proceed Kimberly Henderson APRN.CNP TRANSTHORACIC ECHO (TTE) COMPLETE Observed: 07/10/2024 7:46 AM Status: F Source: [address], [address] [place] [address] TRANSTHORACIC ECHOCARDIOGRAM REPORT Patient Name: ADINA WATERSMAITE Reading Physician: [id number] Quique Vargas MD, [facility] Study Date: 07/10/2024 Ordering Provider: [id number] QUIQUE VARGAS MRN/PID: [id number] Fellow: Nurse: Date of /Age: 11 1995 / years Mechanical Unit Repairer: Marli Castro RDCS Anna Gender Assigned at Additional Staff: : Height: 172.72 cm Admit Date: Weight: 129.73 kg Admission Status: BSA / BMI: 2.38 m2 / 43.49 Department Location: [facility] kg/m2 Heart [place] Blood Pressure: 114 /82 mmHg Study Type: TRANSTHORACIC ECHO (TTE) COMPLETE Diagnosis/ICD: Syncope-R55 Indication: Tachycardia, Morbid Obesity, Hypothyroid CPT Codes: Echo Complete w Full Doppler-[id number] Study Detail: The following Echo studies were performed: 2D, M-Mode, Doppler and color flow. PHYSICIAN INTERPRETATION: Left Ventricle: Left ventricular ejection fraction is normal, by visual estimate at 60-65%. There are no regional wall motion abnormalities. The left ventricular cavity size is normal. There is normal septal and normal posterior left ventricular wall thickness. Spectral Doppler shows a normal pattern of left ventricular diastolic filling. Left Atrium: The left atrial size is normal. Right Ventricle: The right ventricle is normal in size. There is normal right ventricular global systolic function. Right Atrium: The right atrial size is normal. Aortic Valve: The aortic valve is trileaflet. The aortic valve dimensionless index is 0.88. There is no evidence of aortic valve regurgitation. The peak instantaneous gradient of the aortic valve is 5 mmHg. The mean gradient of the aortic valve is 3 mmHg. Mitral Valve: The mitral valve is normal in structure. The peak instantaneous gradient of the mitral valve is 3 mmHg. There is no evidence of mitral valve regurgitation. Tricuspid Valve: The tricuspid valve is structurally normal. No evidence of tricuspid regurgitation. Pulmonic Valve: The pulmonic valve is structurally normal. There is no indication of pulmonic valve regurgitation. Pericardium: No pericardial effusion noted. Aorta: The aortic root is normal. Additional Comments: Normal Echocardiogram. In comparison to the previous echocardiogram(s): No previous studies are available for comparison. CONCLUSIONS: 1. Normal Echocardiogram. 2. Left ventricular ejection fraction is normal, by visual estimate at 60-65%. 3. No previous studies are available for comparison. QUANTITATIVE DATA SUMMARY: 2D MEASUREMENTS: Normal Ranges: Ao Root s: 2.50 cm LAs: 3.44 cm (2.7-4.0cm) RVIDd: 2.50 cm (0.9-3.6cm) IVSd: 0.93 cm (0.6-1.1cm) LVPWd: 0.78 cm (0.6-1.1cm) LVIDd: 5.08 cm (3.9-5.9cm) LVIDs: 3.50 cm LV Mass Index: 63.9 g/m2 LVEDV Index: 36.39 ml/m2 LV % FS 31.1 % LEFT ATRIUM: Normal Ranges: LA Vol A4C: 34.6 ml (22+/-6mL/m2) LA Vol A2C: 55.3 ml LA Vol BP: 45.9 ml LA Vol Index A4C: 14.5ml/m2 LA Vol Index A2C: 23.3 ml/m2 LA Vol Index BP: 19.3 ml/m2 LA Vol A4C: 31.6 ml LA Vol A2C: 51.4 ml LA Vol Index BSA: 17.4 ml/m2 LV SYSTOLIC FUNCTION: Normal Ranges: EF-A4C View: 52 % (>=55%) EF-A2C View: 52 % EF-Biplane: 52 % EF-Visual: 63 % LV EF Reported: 63 % LV DIASTOLIC FUNCTION: Normal Ranges: MV Peak E: 0.72 m/s (0.7-1.2 m/s) MV Peak A: 0.60 m/s (0.42-0.7 m/s) E/A Ratio: 1.21 (1.0-2.2) MV e' 0.117 m/s (>8.0) MV lateral e' 0.13 m/s MV medial e' 0.11 m/s E/e' Ratio: 6.19 (<8.0) MITRAL VALVE: Normal Ranges: MV Vmax: 0.81 m/s (<=1.3m/s) MV peak P.6 mmHg (<5mmHg) MV mean P.0 mmHg (<48mmHg) MV VTI: 24.70 cm (10-13cm) MV DT: 235 msec (150-240msec) AORTIC VALVE: Normal Ranges: AoV Vmax: 1.11 m/s (<=1.7m/s) AoV Peak P.9 mmHg (<20mmHg) AoV Mean P.8 mmHg (1.7-11.5mmHg) LVOT Max Praful: 1.01 m/s (<=1.1m/s) AoV VTI: 23.67 cm (18-25cm) LVOT VTI: 20.84 cm LVOT Diameter: 2.20 cm (1.8-2.4cm) AoV Area, VTI: 3.34 cm2 (2.5-5.5cm2) AoV Area,Vmax: 3.47 cm2 (2.5-4.5cm2) AoV Dimensionless Index: 0.88 RIGHT VENTRICLE: RV Basal 3.61 cm RV Mid 3.00 cm RV Major 5.9 cm RV s' 0.13 m/s TRICUSPID VALVE/RVSP: Normal Ranges: IVC Diam: 1.64 cm PULMONIC VALVE: Normal Ranges: RVOT Vmax: 0.56 m/s (0.6-0.9m/s) AORTA: Asc Ao Diam 2.86 cm [id number] Quique Vargas MD, FACC Electronically signed on 07/11/2024 at 7:44:30 AM Final ED NOTE Observed: 06/21/2024 8:20 PM Status: COMPLETED Source[facility] HNO ID: [id number] Author: RICH BATES, RN Service: Emergency Medicine Author Type: Registered Nurse Type: ED Notes Filed: 06/21/2024 20:20 Note Text: Pt. Provided with discharge instructions at this time. All questions answered, medications discussed and follow-up information reviewed at length. Pt. Verbalized understanding. VSS, PIV removed, pt. Ambulatory off unit in stable condition. CT ABD/PEL W IVCON Observed: 06/21/2024 6:21 PM Status: F Source: [facility] * * *Final Report* * * DATE OF EXAM: Jun 21 2024 6:21PM [facility] 0530 - CT ABD/PEL W IVCON / PROCEDURE REASON: Abdominal abscess/infection suspected * * * * Physician Interpretation * * * * EXAMINATION: CT ABDOMEN AND PELVIS WITH IV CONTRAST CLINICAL HISTORY: Upper abdominal pain for the last month. TECHNIQUE: CT of the abdomen and pelvis was performed using standard technique, scanning from just above the dome of the diaphragm to the symphysis pubis. MQ: CTAP_3 Contrast: IV: 100 ml of Omnipaque 350 CT Radiation dose: Integrated Dose-length product (DLP) for this visit = 1226 mGy*cm. CT Dose Reduction Employed: Automated exposure control (AEC) COMPARISON: CT abdomen and pelvis 11/18/2022, MRI 04/26/2022 RESULT: Liver: No mass. Biliary: No bile duct dilation. Cholecystectomy. Spleen: No mass. No splenomegaly. Pancreas: No mass or duct dilation. Adrenals: No mass. Kidneys: No mass, calculus or hydronephrosis. GI tract: No dilation or wall thickening. Normal appendix. Lymph nodes: No abdominal or pelvic lymphadenopathy. Mesentery/Peritoneum: Surgical clip seen in the left anterior pelvis (2:133), new from previous exam. No ascites or mass. Retroperitoneum: No mass or fluid collection. Vasculature: - Abdominal aorta and iliac arteries: No aneurysm. - Celiac and SMA: Patent without stenosis. - Portal venous system (SMV, splenic vein, portal vein and branches): Patent. - Hepatic veins: Incompletely opacified, likely due to early phase of enhancement. Pelvis: No mass, ascites or fluid collection. Bones/Soft Tissues: Previously noted subcutaneous fatty lesion in the right hemiabdomen has been resected in the interval. No significant osseous abnormality. Lower thorax: Metallic densities are again seen along the anterior right pericardium and right costochondral junction (2:8, 13) which may be related to prior operation or trauma. Right lower lobe granuloma. Localizer images: No additional findings. IMPRESSION: No acute findings in the abdomen or pelvis. 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 Transcribe Date/Time: Jun 21 2024 7:16P Dictated by : MUKUL CURTIS MD This examination was interpreted and the report reviewed and electronically signed by: JOVANY VALDEZ MD on Jun 21 2024 7:40PM EST [id number] COMP METAB 2000 PNL SERPL Collected: 3:02 PM Status: F Source: [facility] Order Comment: Specimen Type : BLOOD SPECIMEN Ordering Facility: [facility] Address: [address] [place] [address] TYPE CODE TESTS RESULT OUT OF RANGE REFERENCE UNITS LAB 2885-2(LOINC) Prot SerPl-mCnc 7.8 6.3-8.0 g/dL LAB 1751-7(LOINC) Albumin SerPl-mCnc 4.8 3.9-4.9 g/dL LAB 06031-2(LOINC) Calcium SerPl-mCnc 9.5 8.5-10.2 mg/dL LAB 1975-2(LOINC) Bilirub SerPl-mCnc 0.5 0.2-1.3 mg/dL LAB 6768-6(LOINC) ALP SerPl-cCnc 81 34-123 U/L LAB 1920-8(LOINC) AST SerPl-cCnc 27 13-35 U/L LAB 1742-6(LOINC) ALT SerPl-cCnc 31 7-38 U/L LAB 2345-7(LOINC) Glucose SerPl-mCnc 89 74-99 mg/dL Result Comment: The [place] Diabetes Association (ADA) provides guidance for cutoff values for fasting glucose and random glucose. The ADA defines fasting as no caloric intake for at least 8 hours. Fasting plasma glucose results between 100 to 125 mg/dL indicate increased risk for diabetes (prediabetes). Fasting plasma glucose results greater than or equal to 126 mg/dL meet the criteria for diagnosis of diabetes. In the absence of unequivocal hyperglycemia, results should be confirmed by repeat testing. In a patient with classic symptoms of hyperglycemia or hyperglycemic crisis, random plasma glucose results greater than or equal to 200 mg/dL meet the criteria for diagnosis of diabetes. Reference: Standards of Medical Care in Diabetes 2016, [place] [employer]. Diabetes Care. 2016.39(Suppl 1). LAB 3094-0(LOINC) BUN SerPl-mCnc 12 7-21 mg/ dL LAB 2160-0(LOINC) Creat SerPl-mCnc 0.70 0.58-0.96 mg/dL LAB 2951-2(LOINC) Sodium SerPl-sCnc 138 136-144 mmol/L LAB 2823-3(LOINC) Potassium SerPl-sCnc 4.0 3.7-5.1 mmol/L LAB 2075-0(LOINC) Chloride SerPl-sCnc 103 98-107 mmol/L LAB 2027-9(LOINC) CO2 SerPl-sCnc 23 22-30 mmo l/L LAB 56658-7(LOINC) Anion Gap SerPl-sCnc 12 8-15 mmol/L LAB 14921-8(LOINC) Creatinine + eGFR Pnl SerPlBld 120 >=60 mL/min/1 .73m??? Result Comment: Estimated Gl omerular Filtration Rate (eGFR) is calculated using the 2020 CKD-EPI creatinine equation. This equation utilizes serum creatinine, sex, and age as parameters. The creatinine assay has traceable calibration to isotope dilution-mass spectrometry. Refer to KDIGO guidelines for clinical interpretation. In patients with unstable renal function, e.g. those with acute kidney injury, the eGFR may not accurately reflect actual GFR. Performed By: #### 05855-5, 3040-3, 78059-2 #### [facility] CLIA [id number] [address] [place] [address] [place] LIPASE SERPL-CCNC Collected: 06/21/2024 3:02 PM Stat us: F Source: [facility] Order Comment: Specimen Type : BLOOD SPECIMEN Ordering Facility: [facility] Address: [address] [place] [address] TYPE CODE TESTS RESULT OUT OF RANGE REFERENCE UNITS LAB 3040-3(LOINC) Lipase SerPl-cCnc 28 16-61 U/L Performed By: #### 87461-9, 3040-3, 53475-4 #### [facility] CLIA [id number] [address] [place] [address] OF [facility] MAGNESIUM SERPL-MCNC Collected: 06/21/2024 3:02 PM S tatus: F Source: [facility] Order Comment: Specimen Type : BLOOD SPECIMEN Ordering Facility: [facility] Address: [address] [place] [address] TYPE CODE TESTS RESULT OUT OF RANGE REFERENCE UNITS LAB 54703-6([facility]) Magnesium SerPl-mCnc 2.1 1.7-2.3 mg/dL Performed By: #### 40609-2, 3040-3, 64312-4 #### [facility] CLIA [id number] [address] [place] [address] OF [facility] CBC W AUTO DIFF BLD Collected: 06/21/2024 3:[address] atus: F Source: [facility] Order Comment: Specimen Type : BLOOD SPECIMEN Ordering Facility: [facility] Address: [address] [place] [address] TYPE CODE TESTS RESULT OUT OF RANGE REFERENCE UNITS LAB 6690-2([facility]) WBC # Bld Auto 7.86 3.70-11.00 k/uL LAB 789-8(INC) RBC # Bld Auto 4.42 3.90-5.20 m/ uL LAB 718-7(INC) Hgb Bld-mCnc 12.4 11.5-15.5 g/dL LAB 4544-3([facility]) Hct VFr Bld Auto 38.2 36.0-46.0 % LAB 787-2(LOINC) MCV RBC Auto 86.4 80.0-100.0 fL LAB 785-6(LOINC) MCH RBC Qn Auto 28.1 26.0-34.0 p g LAB 786-4([facility]) MCHC RBC Auto-mCnc 32.5 30.5-36.0 g/dL LAB 48497-6([facility]) RDW RBC-Rto 13.4 11.5-15.0 % LAB 777-3([facility]) Platelet # Bld Auto 338 150-400 k/uL LAB 03356-6([facility]) PMV Bld Auto 10.0 9.0-12.7 fL LAB 770-8([facility]) Neutrophils/leuk NFr Bld Auto 66.0 % LAB 751-8([facility]) Neutrophils # Bld Auto 5.18 1.45-7.50 k/uL LAB 736-9([facility]) Lymphocytes/leuk NFr Bld Auto 26.8 % LAB 731-0([facility]) Lymphocytes # Bld Auto 2.11 1.00-4.00 k/uL LAB 5905-5([facility]) Monocytes/leuk NFr Bld Auto 5.3 % LAB 742-7([facility]) Monocytes # Bld Auto 0.42 <0.87 k/uL LAB 713-8([facility]) Eosinophil/leuk NFr Bld Auto 0.6 % LAB 711-2([facility]) Eosinophil # Bld Auto 0.05 <0.46 k/uL LAB 706-2([facility]) Basophils/leuk NFr Bld Auto 0.3 % LAB 704-7([facility]) Basophils # Bld Auto <0.03 <0.11 k/uL LAB 02366-3([facility]) Imm Granulocytes/laura k NFr Bld Auto 1.0 % LAB 10777-0([facility]) Imm Granulocytes # Bld Auto 0.08 <0.10 k/uL LAB 62195-1([facility]) nRBC/100 WBC Bld-Rto 0.0 /100 WBC LAB 771-6([facility]) nRBC # Bld Auto <0.01 <0.01 k/u L LAB 52396-5([facility]) Differential method Bld Auto Performed By: #### 58798-2 # ### [facility] CLIA [id number] [address] [place] [address] [place] HCG PREG UR QL Collected: 5 2:54 PM Status: F Source: [facility] Order Comment: Specimen Type : URINE SPECIMEN Ordering Facility: [facility] Address: [address] [place] [id number] TYPE CODE TESTS RESULT OUT OF RANGE REFERENCE UNITS LAB 2106-3([facility]) HCG Preg Ur Ql Negative Negative Result Comment: This test is intended to aid in the early detection of . Very dilute urine samples, as indicated by a low specific gravity, may not contain direct sales representative levels of hCG. This test detects intact hCG only. This test does not reliably detect hCG degradation products, including free-beta subunit and beta- core fragment. Therefore, this test may show reduced reactivity in urine after 8 weeks gestation. A number of conditions other than , including trophoblastic disease and certain non-trophoblastic neoplasms cause elevated levels of hCG. As with any assay employing mouse antibodies, the possibility exists for interference by human anti-mouse antibodies (HAMA) in the specimen. The test provides a presumptive diagnosis for . Performed By: #### 2106-3 ## ## [facility] CLIA [id number] [address] [place] [address] [place] URINALYSIS COMPLETE PNL UR Collected: 06/21/2024 2:54 PM Status: F Source: [facility] Order Comment: Specimen Type : URINE SPECIMEN Ordering Facility: [facility] Address: [address] [place] [address] TYPE CODE TESTS RESULT OUT OF RANGE REFERENCE UNITS LAB 5778-6(LOINC) Color Ur Yellow Yellow LAB 28942-9(LOINC) Clarity Spec Cloudy Abnormal Clear LAB 5792-7(LOINC) Glucose Ur Strip-mCnc Negative Negative LAB 5770-3(LOINC) Bilirub Ur Ql Strip Negative Negative LAB 2514-8(LOINC) Ketones Ur Strip Trace Abnormal Negative LAB 5811-5(LOINC) Sp Gr Ur Strip 1.026 1.005-1.030 LAB 5794-3(LOINC) Hgb Ur Ql Strip 2+ Abnormal Negative LAB 5803-2(LOINC) pH Ur Strip 5.5 <8.5 LAB 5804-0(LOINC) Prot Ur Strip-mCnc 1+ Abnormal Negative LAB 5818-0(LOINC) Urobilinogen Ur Strip 0.2 EU/dL 0.2-1.0 EU/dL LAB 5802-4(LOINC) Nitrite Ur Ql Strip Negative Negative LAB 5799-2(LOINC) Leukocyte esterase Ur Ql Strip 1+ Abnormal Negative LAB 5821-4(LOINC) WBC #/area UrnS HPF 11-20 /HPF Abnormal 0-5 /HPF LAB 06379-2(LOINC) RBC #/area UrnS HPF 3-5 /HPF Abnormal 0-2 /HPF LAB [id number] BACTERIA UL >9821 High Negative uL LAB 5787-7(LOINC) Epi Cells #/area UrnS HPF Many /HPF LAB 5796-8(LOINC) Hyaline Casts #/area UrnS LPF >10 /LPF Abnormal 0 /LPF Performed By: #### 630-4, 24 356-8 #### [facility] CLIA [id number] [address] [place] [address] BACTERIA UR CULT Observed: 06/21/2024 2:54 PM Status: F Source: [facility] ORGANISM ID: 1 >=100,000 CFU/ml Normal urogenital antwan Performed By: #### 630-4, 356-8 #### [facility] CLIA [id number] [address] [place] [address] OF [facility] ED PROV NOTE Observed: 06/21/2024 2:41 PM Status: COMPLETED Source: [facility] HNO ID: [id number] Author: RUDDY SLATER PA-C Service: Emergency Medicine Author 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 I performed a substantive portion of the visit including all aspects of the following. My mendez findings include: MDM/Plan: 29 year old female who presented with 5 weeks of abdominal pain and daily episodes of nonbloody, nonbilious emesis. Patient reports pain that is dull in nature in the upper abdomen and becomes sharp and more severe with eating. Reports that she has been vomiting frequently. Follow-up with her primary doctor and was prescribed Zofran without improvement. 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 Patient nontoxic and well-appearing. Afebrile. Does have tenderness across the upper abdomen without rebound or guarding. Labs interpreted and ED course and unrevealing. UA concerning for UTI, will treat. Patient signed out to oncoming attending at [address] abdomen and reevaluation. Review of external notes: Chart review per ED course. Independent test interpretation: see ED course Management decisions: Ddx considered, but not limited to pancreatitis, gastritis, gerd, malignancy less likely but considered given hx, sbo unlikely given duration of sx / clinical presentation, uti ED Course as of 06/23/24 0954 Anaya Hagen's Documentation MonJun 21, 2024 1500 Urinalysis w Microscopic, reflex Culture(!): Color Yellow Clarity Cloudy(!) Glucose, Urine Negative Bilirubin, Urine Negative Ketones, Urine Trace(!) Specific [place], Ur 1.026 Hemoglobin/Blood,Ur 2+(!) pH, Urine 5.5 Protein, Urine 1+(!) Urobilinogen 0.2 EU/dL Nitrites Negative Leukest 1+(!) WBC, Urine 11-20 /HPF(!) RBC, Urine 3-5 /HPF(!) Bacteria uL >9,821(!) Epithelial Cells Many Hyaline Cast >10 /LPF(!) Will treat for poss UTI 1500 HCG URINE QUALITATIVE: HCG Qualitative, Urine Negative Neg upreg 1501 Chart review: seen by cardiology 05/08/2024 for syncope and tachycardia thought to be due to POTS 1505 CBC + DIFF: WBC 7.86 RBC 4.42 Hemoglobin 12.4 Hematocrit 38.2 MCV 86.4 MCH 28.1 MCHC 32.5 RDW-CV 13.4 Platelet Count 338 MPV 10.0 Neut% 66.0 Abs Neut (ANC) 5.18 Lymph% 26.8 Abs Lymph 2.11 Garrard% 5.3 Abs Garrard 0.42 Eosin% 0.6 Abs Eosin 0.05 Baso% 0.3 Abs Baso <0.03 Immature Gran % 1.0 IMMATURE GRANS (ABS) 0.08 NRBC 0.0 Absolute nRBC <0.01 DTYPE Auto On leukocytosis or anemia 1505 COMP METABOLIC PANEL (BMP+LFT): Protein, Total 7.8 Albumin 4.8 Calcium 9.5 Bilirubin, Total 0.5 Alkaline Phosphatase 81 AST 27 ALT 31 Glucose 89 BUN 12 Creatinine 0.70 Sodium 138 Potassium 4.0 Chloride 103 CO2 23 Anion Gap 12 eGFR 120 Normal lytes and renal function 1505 MAGNESIUM BLD: Magnesium 2.1 wnl 1505 LIPASE BLD: Lipase 28 wnl Clinical Impressions as of 06/23/24 0954 Generalized abdominal pain Nausea and vomiting, unspecified vomiting type Decreased appetite Acute cystitis with hematuria Signature: Anaya Hagen DO Date: 06/23/2024 Time: 9:48 AM ED Provider Note Patient Name: Adina Rene : 1995 SERVICE DATE: 06/21/24 History Patient presents with: Abdominal Pain: Pt endorsing abdominal pain and nausea x1 month. 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 For past 3 days unable to tolerate any p.o. She reports daily for 5 episodes of nonbilious nonbloody vomiting. Nothing makes it better or worse. She denies any bowel movement changes. Last bowel movement was today morning. She denies any illicit drug use, excessive alcohol use. She was seen by her PCP give antiemetics with no relief. [place]atisfied with health care. Postcholecystectomy 03/2023. No other abdominal surgeries in the past. She denies fever, chills, shortness of breath, chest pain, URI symptoms. She denies frequency, urgency, pain with urination. She denies any vaginal bleeding, vaginal discharge. Currently none sexually active. No new medications. No other complaints PAST MEDICAL HISTORY Diagnosis Date Hypothyroidism Obesity Polycystic ovarian syndrome PAST SURGICAL HISTORY Procedure Laterality Date PAST SURGICAL HISTORY OF 12/2022 Resection right sided abdominal wall soft tissue mass No family history on file. Social History Tobacco Use Smoking status: Not on file Smokeless tobacco: Not on file Substance and Sexual Activity Alcohol use: Not on file Drug use: Not on file Sexual activity: Not on file ALLERGIES Allergen Reactions Bees Anaphylaxis Berries Hives raspberries Review of Systems Constitutional: Negative for chills and fever. Respiratory: Negative for shortness of breath. Cardiovascular: Negative for chest pain. Gastrointestinal: Positive for abdominal pain, nausea and vomiting. Negative for diarrhea. Genitourinary: Negative for dysuria, flank pain, frequency, urgency, vaginal bleeding, vaginal discharge and vaginal pain. Neurological: Negative for dizziness, weakness, light-headedness, numbness and headaches. Psychiatric/Behavioral: Negative for confusion. Physical Exam Vitals BP Pulse Temp Temp src Resp SpO2 Weight Height 06/21/24 1436 06/21/24 1435 06/21/24 1435 06/21/24 1435 06/21/24 1435 06/21/24 1435 06/21/24 1435 06/21/24 1435 139/97 74 36.8 ?C (98.2 ?F) Oral 18 99 % 122.5 kg (270 lb) 1.727 m (5' 8 ) Physical Exam Vitals and nursing note reviewed. Constitutional: General: She is not in acute distress. Appearance: Normal appearance. She is well-developed. She is not ill-appearing, toxic-appearing or diaphoretic. HENT: Head: Normocephalic and atraumatic. Mouth/Throat: Lips: [place]. Mouth: Mucous membranes are moist. Eyes: General: Lids are normal. Extraocular Movements: Extraocular movements intact. Conjunctiva/sclera: Conjunctivae normal. Pupils: Pupils are equal, round, and reactive to light. Cardiovascular: Rate and Rhythm: Normal rate and regular rhythm. Pulses: Normal pulses. Pulmonary: Effort: Pulmonary effort is normal. Breath sounds: Normal breath sounds. No decreased breath sounds, wheezing or rhonchi. Comments: Lungs CTA B/L Abdominal: General: Abdomen is flat. Bowel sounds are normal. There is no distension. Palpations: Abdomen is soft. Tenderness: There is abdominal tenderness in the epigastric area and left upper quadrant. There is no right CVA tenderness, left CVA tenderness, guarding or rebound. Comments: Mild TTP to epigastric/ LUQ No rebound or guarding No CVA TTP B/L Musculoskeletal: General: No swelling, tenderness or signs of injury. Normal range of motion. Cervical back: Full passive range of motion without pain. Right lower leg: No edema. Left lower leg: No edema. Skin: General: Skin is warm. Capillary Refill: Capillary refill takes less than 2 seconds. Neurological: General: No focal deficit present. Mental Status: She is alert and oriented to person, place, and time. Cranial Nerves: Cranial nerves 2-12 are intact. Sensory: Sensation is intact. Motor: Motor function is intact. Gait: Gait is intact. Psychiatric: Attention and Perception: Attention normal. Mood and Affect: Mood normal. Speech: Speech normal. Behavior: Behavior normal. Behavior is cooperative. Diagnostic Testing ED Labs Ordered and Reviewed - No data to display Procedures ED Course / Clinical Impression ED Course as of 06/21/241948 Others' Documentation MonJun 21, 2024 1501 Chart review: seen by cardiology 05/08/2024 for syncope and tachycardia thought to be due to POTS [KL] ED Course User Index [KL] Anaya Hagen DO Clinical Impressions as of 06/21/241948 Generalized abdominal pain Nausea and vomiting, unspecified vomiting type Decreased appetite Acute cystitis with hematuria MDM / Disposition / Plan Triage records were reviewed. Medical records were reviewed. Nursing notes were reviewed and incorporated. Physical exam demonstrated as above Chart review from relevant prior emergency / outpatient visits were reviewed. Relevant medical history in electronic chart was reviewed. HIPAA: Patient acknowledged and consented to discussion of HPI/PE/medical care/dispo with family/friends in room 04/1106/21/24 06/21/24 06/21/24 1600 1630 1700 1730 BP: 112/61 119/75 120/73 112/53 Pulse: 80 90 75 67 Resp: Temp: TempSrc: SpO2: 97% 97% 99% 98% Weight: Height: Patient is a 29-year-old female who presents to the ED with concerns of generalized abdominal pain, nausea, vomiting which has been gradually getting worse for the past 5 weeks. She is well-appearing, hemodynamically stable in no acute distress sitting in the bed comfortably. Afebrile, nontacky, BP 112/53. SpO2 99% on room air. On physical exam mild tenderness to palpation to the epigastric, and left upper quadrant. No rebound tenderness, guarding, no CVA tenderness bilaterally. No other abnormal findings as demonstrated above. Labs obtained. Giving persistent pain with a history of sarcoma, cholecystectomy. CT abdomen was obtained for further evaluation. Negative leukocytosis, HANDH within normal limits. CMP unremarkable negative JAMES negative transaminitis. Bilirubin, alkphos, calcium within normal limits. Lipase, magnesium within normal limits. hCG negative. UA 11/20 WBC, leuk esterase. Will treat prophylactically with Keflex. CT scan: No acute findings in the abdomen or pelvis. Patient was given 1 g of Tylenol for headache. Treated with GI cocktail, Pepcid, Zofran with some relief. On reevaluation patient reports some improvement. Able to tolerate PO Findings discussed with patient as noted above no acute abnormal finding on CT scan Most likely she feels comfortable going home and follow-up with GI has an appointment in September However I did place a follow-up request with [facility] request placed Scaption was sent to pharmacy. Discharged home with return verbal instructions return precautions with any worsening symptoms or concerns. History and Record Review External record(s) reviewed: immunization history and prior outpatient record. 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), Chronic bronchitis (2021), and Hypothyroidism Differential Diagnoses - Small bowel obstruction is less likely for the following reason(s): no evidence on imaging - Abdominal mass is less likely for the following reason(s): no evidence on imaging - Pancreatitis is less likely for the following reason(s): laboratory studies not suggestive and no evidence on imaging - Appendicitis is less likely for the following reason(s): no evidence on imaging and laboratory studies not suggestive - Pyelonephritis is less likely for the following reason(s): laboratory studies not suggestive and no evidence on imaging Management Radiology Reports CT ABD/PEL W IVCON Final Result IMPRESSION: No acute findings in the abdomen or pelvis. 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 Transcribe Date/Time: Jun 21 2024 7:16P Dictated by : MUKUL CURTIS MD This examination was interpreted and the report reviewed and electronically signed by: JOVANY VALDEZ MD on Jun 21 2024 7:40PM EST Meds Given During Visit ED Medication Administration from 06/21/2024 1427 to 06/21/2024 1959 Date/Time Order Dose Route Action 06/21/2024 1536 EDT famotidine 20 mg injection (PEPCID) 20 mg INTRAVENOUS Given 06/21/2024 1536 EDT ondansetron (PF) 4 mg injection (ZOFRAN) 4 mg INTRAVENOUS Given 06/21/2024 1639 EDT cefTRIAXone iv piggyback 1 g in dextrose (iso-osmotic) 50 mL (ROCEPHIN) 1 g INTRAVENOUS New Bag/Syringe/Bottle 06/21/2024 1709 EDT cefTRIAXone iv piggyback 1 g in dextrose (iso-osmotic) 50 mL (ROCEPHIN) 0 g INTRAVENOUS Infusion Complete 06/21/2024 1639 EDT acetaminophen 1,000 mg tab(s) (TYLENOL) 1,000 mg ORAL Given 06/21/2024 1639 EDT aluminum-magnesium hydroxide-simethicone 200-200-20 mg/5 mL 30 mL 30 mL ORAL Given Re-evaluation patient tolerating PO and clinically improved and feeling better Ruddy Slater PA-C Disposition The patient was discharged. Yes Escalation of care including transfer to ED considered. Reason(s) for deciding against admission/observation: No acute abnormal findings requiring hospitalization Counseled patient regarding lab results, radiology results and suspected diagnosis. Prescriptions and Discharge Orders Discharge Orders cephALEXin (KEFLEX) 500 mg capsule 2 TIMES DAILY Route: ORAL Dose: 500 mg metoclopramide HCl (REGLAN) 5 mg tablet EVERY 6 HOURS NEEDED Route: ORAL Dose: 5 mg SIGNATURE: KADY Jaffe ELISSAR 06/21/241958 ANAYA HAGEN 06/23/24 0954ANAYA HAGEN 06/23/24 0954 ED TRIAGE NOTE Observed: 06/21/2024 2:36 PM Status: COMPLETED Source: [facility] HNO ID: [id number] Author: CLIFFORD SCOTT MD Service: Emergency Medicine Author Type: Physician Type: ED Triage Notes Filed: 06/21/2024 14:37 Note Text: ED TRIAGE PROVIDER NOTE Patient Name: Adina Rene Service Date: 06/21/24 BRIEF HPI: This is a 29 year old female who presents to the ED with: upper abdominal pain for the last month. Unable to tolerate food BRIEF EXAM: NAD Awake and Alert Non labored breathing No focal neurological deficits INITIAL WORKUP AND DECISION MAKING: Orders Placed This Encounter COMP METABOLIC PANEL (BMP+LFT) MAGNESIUM BLD LIPASE BLD CBC + DIFF Urinalysis w Microscopic, reflex Culture HCG URINE QUALITATIVE SIGNATURE: Clifford Scott MD TSH WITH T4FR REFLEX Collected: 025 11:08 AM Status: F Source: [facility] TYPE CODE TESTS RESULT OUT OF RANGE REFERENCE UNITS LAB 3016-3(LOINC) THYROTROPIN:A CNC:PT:SER/PL :QN: 6.68 High 0.34-5.60 mcIU/mL Performed By: #### [id number] #### [facility] [address] [place] [address] FREE T4 Collected: 11:08 AM Status: F Source: [facility] TYPE CODE TESTS RESULT OUT OF RANGE REFERENCE UNITS LAB 3024-7(LOINC) THYROXINE.JACQUELYN E:MCNC:PT:SER /PLAS:QN: 0.61 Normal 0.58-1.64 ng/dL Performed By: #### [id number] # ### [facility] [address] [place] [address] ED PATIENT EDUCATION NOTE Observed: 11/12 6:47 PM Status: F Source: [facility] ED Patient Education Note Pulmonary Medicine Nonspecific Chest Pain, Adult Chest pain is an uncomfortable, tight, or painful feeling in the chest. The pain can feel like a crushing, aching, or squeezing pressure. A person can feel a burning or tingling sensation. Chest pain can also be felt in your back, neck, jaw, shoulder, or arm. This pain can be worse when you move, sneeze, or take a deep breath. Chest pain can be caused by a condition that is life-threatening. This must be treated right away. It can also be caused by something that is not life- threatening. If you have chest pain, it can be hard to know the difference, so it is important to get help right away to make sure that you do not have a serious condition. Some life-threatening causes of chest pain include: ? Heart attack. ? A tear in the body's main blood vessel (aortic dissection). ? Inflammation around your heart (pericarditis). ? A problem in the lungs, such as a blood clot (pulmonary embolism) or a collapsed lung (pneumothorax). Some non life-threatening causes of chest pain include: ? Heartburn. ? Anxiety or stress. ? Damage to the bones, muscles, and cartilage that make up your chest wall. ? Pneumonia or bronchitis. ? Shingles infection (varicella-zoster virus). Your chest pain may come and go. It may also be constant. Your health care provider will do tests and other studies to find the cause of your pain. Treatment will depend on the cause of your chest pain. Follow these instructions at home: Medicines ? Take [id number]-hyeeffm and prescription medicines only as told by your health care provider. ? If you were prescribed an antibiotic medicine, take it as told by your health care provider. Do not stop taking the antibiotic even if you start to feel better. Activity ? Avoid any activities that cause chest pain. ? Do not lift anything that is heavier than 10 lb (4.5 kg), or the limit that you are told, until your health care provider says that it is safe. ? Rest as directed by your health care provider. ? Return to your normal activities only as told by your health care provider. Ask your health care provider what activities are safe for you. Lifestyle ? Do not use any products that contain nicotine or tobacco, such as cigarettes, e-cigarettes, and chewing tobacco. If you need help quitting, ask your health care provider. ? Do not drink alcohol. ? Make healthy lifestyle changes as recommended. These may include: ? Getting regular exercise. Ask your health care provider to suggest some exercises that are safe for you. ? Eating a heart-healthy diet. This includes plenty of fresh fruits and vegetables, whole grains, low-fat (lean) protein, and low-fat dairy products. A dietitian can help you find healthy eating options. ? Maintaining a healthy weight. ? Managing any other health conditions you may have, such as high blood pressure (hypertension) or diabetes. ? Reducing stress, such as with yoga or relaxation techniques. General instructions ? Pay attention to any changes in your symptoms. ? It is up to you to get the results of any tests that were done. Ask your health care provider, or the department that is doing the tests, when your results will be ready. ? Keep all follow-up visits as told by your health care provider. This is important. ? You may be asked to go for further testing if your chest pain does not go away. Contact a health care provider if: ? Your chest pain does not go away. ? You feel depressed. ? You have a fever. ? You notice changes in your symptoms or develop new symptoms. Get help right away if: ? Your chest pain gets worse. ? You have a cough that gets worse, or you cough up blood. ? You have severe pain in your abdomen. ? You faint. ? You have sudden, unexplained chest discomfort. ? You have sudden, unexplained discomfort in your arms, back, neck, or jaw. ? You have shortness of breath at any time. ? You suddenly start to sweat, or your skin gets clammy. ? You feel nausea or you vomit. ? You suddenly feel lightheaded or dizzy. ? You have severe weakness, or unexplained weakness or fatigue. ? Your heart begins to beat quickly, or it feels like it is skipping beats. These symptoms may represent a serious problem that is an emergency. Do not wait to see if the symptoms will go away. Get medical help right away. Call your local emergency services (911 in the [place] Do not drive yourself to the hospital. Summary ? Chest pain can be caused by a condition that is serious and requires urgent treatment. It may also be caused by something that is not life-threatening. ? Your health care provider may do lab tests and other studies to find the cause of your pain. ? Follow your health care provider's instructions on taking medicines, making lifestyle changes, and getting emergency treatment if symptoms become worse. ? Keep all follow-up visits as told by your health care provider. This includes visits for any further testing if your chest pain does not go away. This information is not intended to replace advice given to you by your health care provider. Make sure you discuss any questions you have with your health care provider. Document Revised: 01/12/2023 Document Reviewed: 01/12/2023 [employer] Patient Education ? 2023 [employer]. ED PATIENT SUMMARY Observed: 12/06/2023 6:47 PM Status: F Source: [facility] ED Patient Summary [place] [id number] Patient Discharge Instructions Person Information Name: ADINA RENE Age: 28 Years Arrival Date: 12/06/2023 15:42:10 Discharge Diagnosis: Chest pain; Shortness of breath Primary Care Physician: Linnea HACKETT PA-C Provider Information Primary Provider: Cliff Gusman DO Advanced Health Safety Coordinator:Julio Chung PA-C The exam and treatment you received in the Emergency Department were for an urgent problem and are not intended as complete care. It is important that you follow up with a doctor, nurse practitioner, or physician?s faculty i on call medical assistant for ongoing care. If your symptoms become worse or you do not improve as expected and you are unable to reach your usual health care provider, you should return to the Emergency Department. We are available 24 hours a day. ADINA RENE has been given the following list of patient education materials, prescriptions and follow-up instructions: Follow-up Instructions: With: Address: When: Moises Ewing In 3 days 12/09/2023 With: Address: When: Linnea HACKETT [address] [place] [id number] [facility] (1) In 3 days In the event that this physician does not participate in your insurance network, please consult with your insurance company to find a nearby participating provider. Patient Education Materials: Nonspecific Chest Pain, Adult A MESSAGE TO ALL PATIENTS REGARDING OPIOIDS PRESCRIPTION OPIOIDS: WHAT YOU NEED TO KNOW Prescription opioids can be used to help relieve hlguazny-io-kcshje pain and are often prescribed following a surgery or injury, or for certain health conditions. These medications can be an important part of the treatment but also come with serious risks. It is important to work with your healthcare provider to make sure you are getting the safest, most effective care. WHAT ARE THE RISKS AND SIDE EFFECTS OF OPIOID USE? Prescription opioids carry serious risks of addiction and overdose, especially with prolonged use. An opioid overdose, often marked by slowed breathing, can cause sudden . The use of prescription opioids can have a number of side effects as well, even when taken as directed: ? Tolerance?meaning you might need to take more of the medication for the same pain relief ? Physical dependence?meaning you have symptoms of withdrawal when a medication is stopped ? Increased sensitivity to pain ? Constipation ? Nausea, vomiting, and dry mouth ? Sleepiness and dizziness ? Confusion ? Depression ? Low levels of testosterone that can result in lower sex drive, energy, and strength ? Itching and sweating RISKS ARE GREATER WITH: ? History of drug misuse, substance use disorder, or overdose ? Mental health conditions (such as depression or anxiety) ? Sleep apnea ? Older age (65 years and older) ? Avoid alcohol while taking prescription opioids. Also, unless specifically advised by your health care provider, medications to avoid include: ? Benzodiazepines (such as Xanax or Valium) ? Muscle relaxants (such as Soma or Flexeril) ? Hypnotics (such as Ambien or Lunesta) ? Other prescription opioids KNOW YOUR OPTIONS Talk to your health care provider about ways to manage your pain that don?t involve prescription opioids. Some of these options may actually work better and have fewer risks and side effects. Options may include: ? Pain relievers such as acetaminophen, ibuprofen, and naproxen ? Some medication that are also used for depression or seizures ? Physical therapy and exercise ? Cognitive behavioral therapy, a psychological, goal-directed approach, in which patients learn how to modify physical, behavioral, and emotional triggers of pain and stress. IF YOU ARE PRESCRIBED OPIOIDS FOR PAIN: ? Never take opioids in greater amounts or more often than prescribed. ? Follow up with your primary health care provider. o Work together to create a plan on how to manage your pain. o Talk about ways to help manage your pain that don?t involve prescription opioids. o Talk about any and all concerns and side effects. ? Help prevent misuse and abuse o Never sell or share prescription opioids. o Never use another person?s prescription opioids. ? Store prescription opioids in a secure place and out of reach of others (this may include visitors, children, friends, and family). ? Safely dispose of unused prescription opioids: Find your community drug take- back program or your pharmacy mail-back program, or flush them down the toilet, following guidance from the Food and Drug Administration (www.fda.gov/Drugs/ResourcesForYou). ? Visit www.cdc.gov/drugoverdose to learn about the risks of opioids abuse and overdose. ? If you believe you may be struggling with addiction, tell your health career development associate and ask for guidance or call [facility] National Helpline at 4-843-321-EOKD. d Source: [place] Department of Health and Human Services/Center for Disease Control & Prevention [facility] Medications Given: Medication Dose Route albuterol-ipratropium 3.00 mL Inhalation ketorolac 30.00 mg IV Push Right Antecubit Mico Medication Information: Medications to Continue with No Changes Other Medications dextromethorphan-promethazine (Promethazine DM oral syrup) 5 Milliliter By Mouth every 6 hours as needed for cough. Refills: 0. levothyroxine (levothyroxine 137 mcg (0.137 mg) oral capsule) 1 Capsules By Mouth every day. predniSONE (predniSONE 20 mg Tab) 3 By Mouth every day. Refills: 0. Comment: Pharmacy Information: Patient Portal You may access all of your results and other medical record information on our secure patient portal. If you are not signed up for this yet, please contact [employer] at [phone] to get signed up today. KOLE Award Nomination The KOLE (Diseases Attacking the Immune SYstem) Award is an international recognition program that honors and celebrates the skillful, compassionate care nurses provide every day. Anyone who experiences or observes amazing care being provided by a nurse is encouraged to submit a nomination. To nominate your nurse, use your smart phone to scan the QR code below. You may receive a survey from [employer] asking you to rate your care experience. Your feedback is important and will help us understand what we do well and how we can improve the quality of care we provide to you, your loved ones and our community. It?s an honor to serve you. Thank you for choosing [facility] Patient Education Materials: Nonspecific Chest Pain, Adult Chest pain is an uncomfortable, tight, or painful feeling in the chest. The pain can feel like a crushing, aching, or squeezing pressure. A person can feel a burning or tingling sensation. Chest pain can also be felt in your back, neck, jaw, shoulder, or arm. This pain can be worse when you move, sneeze, or take a deep breath. Chest pain can be caused by a condition that is life-threatening. This must be treated right away. It can also be caused by something that is not life- threatening. If you have chest pain, it can be hard to know the difference, so it is important to get help right away to make sure that you do not have a serious condition. Some life-threatening causes of chest pain include: ? Heart attack. ? A tear in the body's main blood vessel (aortic dissection). ? Inflammation around your heart (pericarditis). ? A problem in the lungs, such as a blood clot (pulmonary embolism) or a collapsed lung (pneumothorax). Some non life-threatening causes of chest pain include: ? Heartburn. ? Anxiety or stress. ? Damage to the bones, muscles, and cartilage that make up your chest wall. ? Pneumonia or bronchitis. ? Shingles infection (varicella-zoster virus). Your chest pain may come and go. It may also be constant. Your health care provider will do tests and other studies to find the cause of your pain. Treatment will depend on the cause of your chest pain. Follow these instructions at home: Medicines ? Take jcnl-rfa-yyujnbf and prescription medicines only as told by your health care provider. ? If you were prescribed an antibiotic medicine, take it as told by your health care provider. Do not stop taking the antibiotic even if you start to feel better. Activity ? Avoid any activities that cause chest pain. ? Do not lift anything that is heavier than 10 lb (4.5 kg), or the limit that you are told, until your health care provider says that it is safe. ? Rest as directed by your health care provider. ? Return to your normal activities only as told by your health care provider. Ask your health care provider what activities are safe for you. Lifestyle ? Do not use any products that contain nicotine or tobacco, such as cigarettes, e-cigarettes, and chewing tobacco. If you need help quitting, ask your health care provider. ? Do not drink alcohol. ? Make healthy lifestyle changes as recommended. These may include: ? Getting regular exercise. Ask your health care provider to suggest some exercises that are safe for you. ? Eating a heart-healthy diet. This includes plenty of fresh fruits and vegetables, whole grains, low-fat (lean) protein, and low-fat dairy products. A dietitian can help you find healthy eating options. ? Maintaining a healthy weight. ? Managing any other health conditions you may have, such as high blood pressure (hypertension) or diabetes. ? Reducing stress, such as with yoga or relaxation techniques. General instructions ? Pay attention to any changes in your symptoms. ? It is up to you to get the results of any tests that were done. Ask your health care provider, or the department that is doing the tests, when your results will be ready. ? Keep all follow-up visits as told by your health care provider. This is important. ? You may be asked to go for further testing if your chest pain does not go away. Contact a health care provider if: ? Your chest pain does not go away. ? You feel depressed. ? You have a fever. ? You notice changes in your symptoms or develop new symptoms. Get help right away if: ? Your chest pain gets worse. ? You have a cough that gets worse, or you cough up blood. ? You have severe pain in your abdomen. ? You faint. ? You have sudden, unexplained chest discomfort. ? You have sudden, unexplained discomfort in your arms, back, neck, or jaw. ? You have shortness of breath at any time. ? You suddenly start to sweat, or your skin gets clammy. ? You feel nausea or you vomit. ? You suddenly feel lightheaded or dizzy. ? You have severe weakness, or unexplained weakness or fatigue. ? Your heart begins to beat quickly, or it feels like it is skipping beats. These symptoms may represent a serious problem that is an emergency. Do not wait to see if the symptoms will go away. Get medical help right away. Call your local emergency services (911 in the [place] Do not drive yourself to the hospital. Summary ? Chest pain can be caused by a condition that is serious and requires urgent treatment. It may also be caused by something that is not life-threatening. ? Your health care provider may do lab tests and other studies to find the cause of your pain. ? Follow your health care provider's instructions on taking medicines, making lifestyle changes, and getting emergency treatment if symptoms become worse. ? Keep all follow-up visits as told by your health care provider. This includes visits for any further testing if your chest pain does not go away. This information is not intended to replace advice given to you by your health care provider. Make sure you discuss any questions you have with your health care provider. Document Revised: 01/12/2023 Document Reviewed: 01/12/2023 [employer] Patient Education ? 2023 [employer] ANJU Cruz OLIVIA PAIGE , have received the following patient education materials/instructions and have verbalized understanding: Patient Education Materials: Nonspecific Chest Pain, Adult Follow-up Instructions: With: Address: When: Moises Ewing In 3 days 12/09/2023 With: Address: When: Linnea HACKETT [address] [place] [phone] Business (1) In 3 days Patient Signature Date Clinician/Nurse Signature Date 12/06/2023 18:47:53 ED CLINICAL SUMMARY Observed: 12/06/2023 6:47 PM Status: F Source: [facility] ED Clinical Summary [place] [id number] ED Clinical Summary Person Information Name: ADINA RENE Kenny/[facility] Age: 28 Years : 1995 Sex: Female Language: Lao PCP: Linnea HACKETT PA-C Marital Status: Single Visit Id: Visit Reason: Shortness of breath; Chest pain; CHEST PAIN /O2 LOW Speciality: Acuity: 2 Enc Type: Emergency Med Service: Emergency Arrival: 12/06/2023 15:42:10 Discharge: 12/06/2023 18:47:34 LOS: 000 03:05 Checkin: 12/06/2023 15:42:10 Checkout: 12/06/2023 18:47:34 Dispo Type: Home (Routine DC) EVENTS: Event Name Event Status Request Date/Time Start Date/Time Complete Date/Time Arrive Complete 12/06/2023 15:42:10 12/06/2023 15:42:10 12/06/2023 15:42:10 Document Home Meds Request 12/06/2023 15:42:10 Triage Complete 12/06/2023 15:42:10 12/06/2023 15:53:38 12/06/2023 15:53:38 Bed Assign Complete 12/06/2023 15:46:23 12/06/2023 15:46:23 12/06/2023 15:46:23 Dr Exam Complete 12/06/2023 15:46:23 12/06/2023 15:46:54 12/06/2023 15:46:54 RN Exam Complete 12/06/2023 15:46:23 12/06/2023 16:03:53 12/06/2023 16:03:53 Registration Complete 12/06/2023 15:46:54 12/06/2023 15:55:43 12/06/2023 15:55:43 Dr Exam Complete 12/06/2023 15:47:35 12/06/2023 15:47:35 12/06/2023 15:47:35 EKG Complete 12/06/2023 15:48:17 12/06/2023 15:53:32 Reg Complete Request 12/06/2023 15:55:43 Reg Bed Request Complete 12/06/2023 15:55:43 12/06/2023 15:55:43 12/06/2023 15:55:43 Pending Labs Complete 12/06/2023 16:06:06 12/06/2023 17:57:52 Lab Complete 12/06/2023 16:06:06 12/06/2023 16:45:25 Patient Care Request 12/06/2023 16:06:06 X-Ray Complete 12/06/2023 16:06:06 12/06/2023 16:07:05 12/06/2023 16:40:21 Pending Labs Complete 12/06/2023 16:06:21 12/06/2023 16:50:19 Lab Complete 12/06/2023 16:06:22 12/06/2023 16:50:19 Swab Complete 12/06/2023 16:06:22 12/06/2023 16:50:19 Pending Labs Cancel 12/06/2023 16:10:58 12/06/2023 16:42:38 Lab Cancel 12/06/2023 16:10:58 12/06/2023 16:42:38 Pending Labs Complete 12/06/2023 16:18:35 12/06/2023 16:18:35 12/06/2023 16:45:25 Lab Complete 12/06/2023 16:18:35 12/06/2023 16:18:35 12/06/2023 16:45:25 Meds Admin Complete 12/06/2023 16:19:36 12/06/2023 16:34:46 RT Tx/ABG Complete 12/06/2023 16:19:37 12/06/2023 16:37:44 12/06/2023 16:37:44 RT Tx/ABG Complete 12/06/2023 16:19:37 12/06/2023 16:37:38 12/06/2023 16:37:38 Pending Labs Complete 12/06/2023 16:31:15 12/06/2023 16:31:15 12/06/2023 16:31:16 Wet Read Request 12/06/2023 16:40:21 Pending Labs Complete 12/06/2023 16:43:12 12/06/2023 16:43:12 12/06/2023 16:56:35 Lab Complete 12/06/2023 16:43:12 12/06/2023 16:43:12 12/06/2023 16:56:35 Meds Admin Complete 12/06/2023 17:06:18 12/06/2023 17:17:50 Discharge Complete 12/06/2023 18:27:34 12/06/2023 18:47:51 12/06/2023 18:47:51 Transfer Complete 12/06/2023 18:47:51 12/06/2023 18:47:51 12/06/2023 18:47:51 ADDRESS: [address] [place] [id number] [facility] DOC NOTES: MEDICAL INFORMATION: Prescriptions Given: Medications to Continue with No Changes Other Medications dextromethorphan-promethazine (Promethazine DM oral syrup) 5 Milliliter By Mouth every 6 hours as needed for cough. Refills: 0. levothyroxine (levothyroxine 137 mcg (0.137 mg) oral capsule) 1 Capsules By Mouth every day. predniSONE (predniSONE 20 mg Tab) 3 By Mouth every day. Refills: 0. PATIENT EDUCATION INFORMATION: Instructions: Nonspecific Chest Pain, Adult Follow up: With: Address: When: Moises Ewing In 3 days 12/09/2023 With: Address: When: Linnea HACKETT [address] [place] [address] Business (1) In 3 days DIAGNOSIS: Chest pain; Shortness of breath TROPONIN 1 HR. Collected: 5:17 PM Status: F Source: [facility] Order Comment: due @ 1714 TYPE CODE TESTS RESULT OUT OF RANGE REFERENCE UNITS LAB 54457605(LOINC) Troponin HS <2.30 Low 10.10-27.10 pg/mL Result Comment: The 95% CI ( Confidence Interval) PPV (Positive Predictive Value) for myocardial infarction in females is 38 pg/mL, in males 51 pg/mL. The results should be used in conjunction with clinical conditions of myocardial infarction. (Access High Sensitivity Troponin I Instructions For Use, [employer], October 2017) Performed By: #### [id number] #### [facility] [address] [place] [address] XR CHEST SINGLE VIEW Observed: 4:29 PM Status: F Source: [facility] Exam Date/Time: 12/06/2023 16:40 EDT Reason for Exam: Chest pain Report IMPRESSION: NO RADIOGRAPHIC EVIDENCE OF ACUTE INTRATHORACIC PROCESS. EXAM: XR Chest Single View History: Chest pain Technique: Portable AP view of the chest. Comparison: 10/13/2023 Findings: The cardiomediastinal silhouette is within normal limits. No pneumothorax, pleural effusion, or consolidation. Numerous metallic foreign bodies are again identified overlying the right hemithorax and right neck region. No acute osseous abnormality. Ordering Provider: Julio Chung FINAL REPORT Dictated: 12/06/2023 4:50 pm Erick Smart DO Signed (Electronic Signature): 12/06/2023 4:50 pm Signed by: Erick Smart DO Transcribed by: MIRIAM Technologist: JACKIE Technical Comments Radiation Dose: Ka,r in mGy = na DAP = na RAPID COVID ANTIGEN ([facility]) Collected: 0 12/06/2023 4:21 PM Status: F Source: [facility] TYPE CODE TESTS RESULT OUT OF RANGE REFERENCE UNITS LAB 70266-1(LOINC) SARS CORONAVIRUS+SA RS CORONAVIRUS 2 AG:PRTHR:PT:RE SPIRATORY SYSTEM SPECIMEN:ORD:I A.RAPID Not Detected Normal Not Detected Result Comment: The BD Verit or? System for Rapid Detection of SARS-CoV-2 is a chromatographic digital immunoassay intended for the direct and qualitative detection of SARS-CoV-2 nucleocapsid antigens in nasal swabs from individuals who are suspected of COVID-19 by their healthcare provider within the first five days of the onset of symptoms. Negative results should be treated as presumptive, do not rule out SARS-CoV-2 infection and should not be used as the sole basis for treatment or patient management decisions, including infection control decisions. Negative results should be considered in the context of a patient?s recent exposures, history and the presence of clinical signs and symptoms consistent with COVID-19, and confirmed with a molecular assay, if necessary, for patient management. For in vitro diagnostic use. In the [place], only for use under an Emergency Use Authorization. In the [place], this test has not been FDA cleared or approved; this test has been authorized by FDA under an EUA for use by authorized laboratories; use by laboratories certified under the CLIA, 42 U.S.C. ?263a, that meet requirements to perform moderate, high, or waived complexity tests and at the Point of Care (POC), i.e., in patient care settings operating under a CLIA Certificate of Waiver, Certificate of Compliance, or Certificate of Accreditation. This test has been authorized only for the detection of proteins from SARS-CoV-2, not for any other viruses or pathogens; and, in the [place], this test is only authorized for the duration of the declaration that circumstances exist justifying the authorization of emergency use of in vitro diagnostics for detection and/or diagnosis of the virus that causes COVID-19 under Section 564(b)(1) of the Act, 21 U.S.C. ? 360bbb- 3(b)(1), unless the authorization is terminated or revoked sooner. LAB CD:[id number]( [facility]) Rapid COV Int POS Ctl Pass Normal LAB CD:[id number]( [facility]) Rapid COV Int NEG Ctl Pass Normal Performed By: #### [id number] #### [facility] [address] [place] [id number] INFLUENZA A&B AG Collected: 12/06/2023 4:21 PM Statu s: F Source: [facility] TYPE CODE TESTS RESULT OUT OF RANGE REFERENCE UNITS LAB 17645456(LOINC) Influenzae A Ag NEGATIVE Normal Negativ e LAB 19496171(LOINC) Influenzae B Ag NEGATIVE Normal Negativ e Result Comment: Test sensiti vity and specificity vary for age group, specimen type, antigen types, and prevalence of disease. Test results must be evaluated in conjunction with other clinical data available to the physician. Individuals who received nasally administered Influenza A vaccine may have positive test results up to 3 days after vaccination. Performed By: #### [id number] #### [facility] [address] [place] [address] TROPONIN 0 HR. Collected: 4 4:14 PM Status: F Source: [facility] TYPE CODE TESTS RESULT OUT OF RANGE REFERENCE UNITS LAB [id number]([facility]) Troponin HS <2.30 Low 10.10-27.10 pg/mL Result Comment: The 95% CI ( Confidence Interval) PPV (Positive Predictive Value) for myocardial infarction in females is 38 pg/mL, in males 51 pg/mL. The results should be used in conjunction with clinical conditions of myocardial infarction. (Access High Sensitivity Troponin I Instructions For Use, [employer] [place], October 2017) Performed By: #### [id number] #### [facility] [address] [place] [address] PT & PTT Collected: 4 4:14 PM Status: F Source: [facility] TYPE CODE TESTS RESULT OUT OF RANGE REFERENCE UNITS LAB 5902-2(LOINC) COAGULATION TISSUE FACTOR INDUCED:TIME:P T:PPP:QN:COAG 10.9 Normal 9.4-12.5 second(s ) Result Comment: 15 days - 4 weeks 1 - 5 months 6 -11 months 1 ? 5 years 6 ? 10 years 11 -17 years Mean: 11.2 (9.5 ? 12.6) Mean: 11.0 (9.7 ? 12.8) Mean: 11.0 (9.8 ? 13.0) Mean: 11.3 (9.9 ? 13.4) Mean: 11.7 (10.0 ? 14.6) Mean: 11.8 (10.0 - 14.1) Pediatric Reference ranges were obtained from a study by Chris Henriquez et al. prepared from 1437 samples obtained at 7 different centers using the same coagulation reagent and instrumentation as [facility]. Currently there are no coagulation studies available worldwide for children to 14 days, and no normal ranges. LAB 99889-2([facility]) COAGULATION SURFACE INDUCED:TIME:P T:PPP:QN:COAG 34.3 Normal 25.1-36.5 second(s ) Result Comment: Parameter 15 days - 4 weeks 1 - 5 months 6 - 11 months 1 - 5 years 6 - 10 years 11 - 17 years PTT Mean: 35.4 (27.6-45.6) Mean: 33.5 (24.8-40.7) Mean: 32.4 (25.1-40.7) Mean: 31.6 (24.0-39.2) Mean: 31.6 (26.9-38.7) Mean: 31.0 (24.6-38.4) Pediatric Reference ranges were obtained from a study by Chris Henriquez et al. prepared from 1437 samples obtained at 7 different centers using the same coagulation reagent and instrumentation as [facility]. Currently there are no coagulation studies available worldwide for children to 14 days, and no normal ranges. Heparin therapeutic range (represented by Anti-Factor Xa activity of 0.2 - 0.4 U/mL) corresponds to PTT of 56.6 - 109.0 sec. LAB 6301-6([facility]) COAGULATION TISSUE FACTOR INDUCED.INR:RE LTIME:PT:PPP:Q N:COAG 0.97 Unknown Result Comment: INR results are specifically intended to assess patients stabilized on long-term Anticoagulation therapy suggested INR?s ?Less Intensive Anticoagulation? 2.0 ? 3.0 Conventional Range 3.0 ? 4.5 Performed By: #### [id number] #### [facility] [address] [place] [address] [facility] Collected: 4 4:14 PM Status: F Source: [facility] TYPE CODE TESTS RESULT OUT OF RANGE REFERENCE UNITS LAB 2345-7([facility]) GLUCOSE:MCNC :PT:SER/PLAS :QN: 118 Normal 55-199 mg/dL LAB 3094-0([facility]) UREA NITROGEN:MCN C:PT:SER/WINSOME S:QN: 11 Normal 5-21 mg/dL LAB 2160-0([facility]) CREATININE:M CNC:PT:SER/P LAS:QN: 0.7 Normal 0.5-1.3 mg/dL LAB 3097-3([facility]) UREA NITROGEN/CRE ATININE:MRTO :PT:SER/PLAS :QN: 16 Normal 10-20 No Units LAB 30178-6([facility]) CALCIUM:MCNC :PT:SER/PLAS :QN: 9.2 Normal 8.9-11.1 mg/dL LAB 2951-2([facility]) SODIUM:SCNC: PT:SER/PLAS: QN: 136 Normal 135-145 mmol/L LAB 2823-3([facility]) POTASSIUM:SC NC:PT:SER/PL :QN: 3.7 Normal 3.5-5.3 mmol/L LAB 2075-0([facility]) CHLORIDE:SCN C:PT:SER/WINSOME S:QN: 105 Normal 101-111 mmol/L LAB 2027-9([facility]) CARBON DIOXIDE:SCNC :PT:SER/PLAS :QN: 23 Normal 21-31 mmol/L LAB 27742-2([facility]) ANION GAP:SCNC:PT: SER/PLAS:QN: 12 Normal 6-16 mEq/L Performed By: #### [id number] # ### [facility] [address] [place] [id number] HEP FUNC PANEL Collected: 12/06/2023 4:14 PM Status: F Source: [facility] TYPE CODE TESTS RESULT OUT OF RANGE REFERENCE UNITS LAB 1744-2([facility]) ALANINE AMINOTRANSFERA SE:CCNC:PT:SER /PLAS:QN:NO ADDITION OF P-5'-P 17 Normal 6-46 Int._Unit /L LAB 1920-8([facility]) ASPARTATE AMINOTRANSFERA SE:CCNC:PT:SER /PLAS:QN: 16 Normal 5-43 Int._Unit /L LAB 1751-7([facility]) ALBUMIN:MCNC:P T:SER/PLAS:QN: 4.5 Normal 3.3-5.0 gm/dL LAB 70091-1([facility]) GLOBULIN:MCNC: PT:SER:QN:CALC ULATED 2.7 Normal 1.4-4.0 gm/dL LAB 01633-6([facility]) ALBUMIN/GLOBUL IN:MCRTO:PT:SE R:QN: 1.7 Normal 1.1-2.2 LAB 6768-6([facility]) ALKALINE PHOSPHATASE:CC NC:PT:SER/PLAS :QN: 73 Normal 21-98 Int._Unit /L LAB 1967-09([facility]) BILIRUBIN.GLUC URONIDATED+SCOTTY IRUBIN.ALBUMIN BOUND:MCNC:PT: SER/PLAS:QN: 0.0 Normal 0.0-0.4 mg/dL LAB 13182-9([facility]) BILIRUBIN.NON- GLUCURONIDATED :MSCNC:PT:SER/ PLAS:QN: 0.3 Normal 0.1-0.9 mg/dL LAB 1974-([facility]) BILIRUBIN:MCNC :PT:SER/PLAS:Q N: 0.3 Normal 0.0-1.1 mg/dL LAB 288-2([facility]) PROTEIN:MCNC:P T:SER/PLAS:QN: 7.2 Normal 6.0-7.8 gm/dL Performed By: #### [id number] # ### [facility] [address] [place] [address] CBC W/ AUTO DIFF Collected: 12/06/2023 4:14 PM Statu s: F Source: [facility] TYPE CODE TESTS RESULT OUT OF RANGE REFERENCE UNITS LAB 41293-3([facility]) LEUKOCYTES^^ELAINE ECTED FOR NUCLEATED ERYTHROCYTES:NCN C:PT:BLD:QN:AUTO MATED COUNT 10.7 Normal 4.0-11.0 E9/L LAB 789-8([facility]) ERYTHROCYTES:NCN C:PT:BLD:QN:AUTO MATED COUNT 4.2 Low 4.3-5.9 E12/L LAB 718-7([facility]) HEMOGLOBIN:MCNC: PT:BLD:QN: 12.2 Normal 12.0-16.0 gm/dL LAB 4544-3([facility]) HEMATOCRIT:VFR:P T:BLD:QN:AUTOMAT ED COUNT 36.1 Normal 34.0-46.0 % LAB 788-0([facility]) ERYTHROCYTE DISTRIBUTION WIDTH:RATIO:PT:R BC:QN:AUTOMATED COUNT 14.3 High 10.9-14.2 % LAB 785-6([facility]) ERYTHROCYTE MEAN CORPUSCULAR HEMOGLOBIN:ENTMA SS:PT:RBC:QN:AUT OMATED COUNT 29.2 Normal 27.0-34.0 pg LAB 786-4([facility]) ERYTHROCYTE MEAN CORPUSCULAR HEMOGLOBIN CONCENTRATION:MC NC:PT:RBC:QN:AUT OMATED COUNT 33.9 Normal 31.4-36.0 gm/dL LAB 787-2([facility]) ERYTHROCYTE MEAN CORPUSCULAR VOLUME:ENTVOL:PT :RBC:QN:AUTOMATE D COUNT 86.1 Normal 80.0-100.0 fL LAB 46737-9([facility]) PLATELET MEAN VOLUME:ENTVOL:PT :BLD:QN:AUTOMATE D COUNT 8.0 Normal 6.4-10.8 fL LAB 777-3([facility]) PLATELETS:NCNC:P T:BLD:QN:AUTOMAT ED COUNT 285.0 Normal 150.0-500.0 E9/L LAB 71584-7([facility]) NEUTROPHILS/100 LEUKOCYTES:NFR:P T:BLD:QN: 69.6 Normal 36.0-75.0 % LAB 731-0([facility]) LYMPHOCYTES:NCNC :PT:BLD:QN:AUTOM ATED COUNT 24.0 Normal 14.0-50.0 % LAB 742-7([facility]) MONOCYTES:NCNC:P T:BLD:QN:AUTOMAT ED COUNT 0.6 Normal 0.2-1.0 E9/L LAB 713-8([facility]) EOSINOPHILS/100 LEUKOCYTES:NFR:P T:BLD:QN:AUTOMAT ED COUNT 0.9 Normal 0.0-8.0 % LAB 704-7([facility]) BASOPHILS:NCNC:P T:BLD:QN:AUTOMAT ED COUNT 0.3 Normal 0.0-2.0 % LAB 751-8(INC) NEUTROPHILS:NCNC :PT:BLD:QN:AUTOM ATED COUNT 7.4 Normal 2.0-7.5 E9/L LAB 10639-4([facility]) LYMPHOCYTES:NCNC :PT:BLD:QN: 2.6 Normal 1.0-4.0 E9/L LAB 80785-8(LOINC) EOSINOPHILS:NCNC :PT:BLD:QN: 0.1 Normal 0.0-0.5 E9/L LAB 72414-0(LOINC) BASOPHILS/LEUKOC YTES:NFR.DF:PT:B LD:QN:AUTOMATED COUNT 0.0 Normal 0.0-0.2 E9/L Performed By: #### [id number] # ### [facility] [address] [place] [address] LIPASE LEVEL Collected: 12/06/2023 4:14 PM Status: F Source: [facility] TYPE CODE TESTS RESULT OUT OF RANGE REFERENCE UNITS LAB 3040-3([facility]) TRIACYLGLYCEROL LIPASE:CCNC:PT:SER/ PLAS:QN: 18 Normal 13-58 unit/L Performed By: #### [id number] # ### [facility] [address] [place] [address] EGFR Collected: 4:14 PM Status: F Source: [facility] TYPE CODE TESTS RESULT OUT OF RANGE REFERENCE UNITS LAB [id number]([facility]) eGFR 120 Normal >=59 mL/min/1 .7 3 m2 Performed By: #### [id number] #### [facility] [address] [place] [address] ED NOTE-PHYSICIAN Observed: 12/06/2023 4:11 PM Status: F Source: [facility] ED Note-Physician Basic Information Time Seen: Julio Chung PA-C 12/06/2023 15:46 Chief Complaint pt to er c/o CP and SOB that started a few days ago. Pt reports O2 at home dropped to 87%. 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 History of Present Illness Patient is a 28-year-old female with PMH of chronic migraines, depression, PCOS, anxiety that presents today for evaluation of her chest pain and shortness of breath it has been going on for the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
--- OUTSIDE RECORDS SUMMARY | 2024-09-12 09:00 | XMS_ITS | Encounter Summary ---
Author Organization [facility] Address [address] [place] [address] Phone Care Team Providers Care Vp Data Name Role Phone Linnea Escalante PA-C Primary Care Provider [phone] Reason for Referral * Consultation (Routine) - Authorized Specialty Diagnoses / Procedures Referred By Contac t Referred To Contact Cardiology Diagnoses Syncope, unspecified syncope type Procedures Follow Up In Cardiology Quique Vargas MD [address] [place] [address] 2, [address] [address] Phone: tel: fax: Quique Vargas MD [address] [place] [address] 2, [address] [address] Phone: tel: fax: Referral ID Status Reason Start Date Expiration Date V isits Requested Visits Authorized [id number] Authorized 09/12/2024 09/12/2025 1 1 Reason for Visit * Reason Comments Follow-up Tilt table * Consultation (Routine) - Authorized Specialty Diagnoses / Procedures Referred By Contac t Referred To Contact Cardiology Diagnoses Syncope, unspecified syncope type Procedures Follow Up In Cardiology Quique Vargas MD [address] [place] [address] 2, [address] [address] Phone: tel: fax: Quique Vargas MD [address] [place] [address] 2, [address] [address] Phone: tel: fax: Referral ID Status Reason Start Date Expiration Date V isits Requested Visits Authorized [id number] Authorized 05/08/2024 05/08/2025 1 1 Encounter Details Date Type Department Care Team (Late st Contact Info) Description 09/12/2024 9:00 AM EDT Office Visit [facility] [address] [facility] [address] [place] [address] Quique Vargas MD [address] [facility] [address] [place] [address] POTS (postural orthostatic tachycardia syndrome); Postural orthostatic tachycardia syndrome (POTS); Acquired hypothyroidism; Type 2 diabetes mellitus without complication, without long-term current use of insulin; Never smoked tobacco; BMI 40.0-44.9, adult (Multi) Social History Tobacco Use Types Packs/Day Years Used Date Smoking Tobacco: Never Smokeless Tobacco: Never Alcohol Use Standard Drinks/Week Comments Yes 0 (1 standard drink = 0.6 oz pur e alcohol) 1-2 yearly Comments Unknown Sex and Gender Information Value Date Recorded Sex Assigned at Not on file Legal Sex Female 12:14 PM EST Gender Identity Not on file Sexual Orientation Not on file documented as of this encounter Last Filed Vital Signs Vital Sign Reading Time Taken Comments Blood Pressure 132/72 09/12/2024 8:51 AM EDT Pulse 72 09/12/2024 8:51 AM EDT Temperature - - Respiratory Rate - - Oxygen Saturation - - Inhaled Oxygen Concentration - - Weight 126 kg (277 lb) 09/12/2024 8:51 AM EDT Height 172.7 cm (5' 8 ) 09/12/2024 8:51 AM EDT Body Mass Index 42.12 09/12/2024 8:51 AM EDT documented in this encounter Patient Instructions * Patient Instructions* Radha Hill LPN - 09/12/2024 9:00 AM EDT Please bring all medicines, vitamins, and herbal supplements with you when you come to the office. Prescriptions will not be filled unless you are compliant with your follow up appointments or have a follow up appointment scheduled as per instruction of your physician. Refills should be requested at the time of your visit. BMI was above normal measurement. Current weight: 126 kg (277 lb) Weight change since last visit (-) denotes wt loss -9 lbs Weight loss needed to achieve BMI 25: 112.9 Lbs Weight loss needed to achieve BMI 30: 80.1 Lbs Provided instructions on dietary changes Provided instructions on exercise. * Attachments The following attachments cannot be sent through Care Everywhere. * Heart Healthy Diet (Citizen Of [place]) documented in this encounter Progress Notes * Quique Vargas MD - 09/12/2024 9:00 AM EDT HPI Patient is in the office for follow-up for neurocardiogenic syncope that was confirmed by tilt table testing she had few months ago. She had profound hypotension but without tachycardia so it was a typical form of POTS. Since that time she had 1 episode of syncope at home unwitnessed. No injuries. She has been educated about the measures to ensure avoiding dehydration and has been following thesemeasures with drinking 4 L of fluid daily and increasing salt intake. Currently not on medical therapy for POTS. Her weight remains in the morbid obesity range at 42 kg/m??, she works in [employer] for [employer] and [employer]. She reports no palpitations orthopnea PND no chest pain and no dyspnea on exertion. Had an echocardiogram since her last visit which was normal and I shared the findings with her. Apart from morbid obesity physical examination today was normal. Assessment/recommendations: 1-POTS syndrome confirmed by tilt table testing, patient has taken the measures needed to ensure that she is always hydrated with increased salt intake and adequate hydration. Will add metoprolol succinate 50 mg daily open to prevent recurrent syncopal event. She continued to have intermittent episode of severe tachycardia with heart rate up to 190 bpm. We elected to open for other measures such as midodrine and Florinef. She will continue to monitor blood pressure reading at home. 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 Medical therapy is expected to relieve the symptoms. 5-hypothyroidism on replacement therapy under control managed by PCP 6-type 2 diabetes on metformin, weight loss and active lifestyle was recommended proper diet was advocated ROS Intermittent syncope Vitals: 09/12/24 0851 BP: 132/72 BP Location: Left arm Patient Position: Sitting Pulse: 72 Weight: 126 kg (277 lb) Height: 1.727 m (5' 8 ) Objective Physical Exam Constitutional: Appearance: Normal appearance. HENT: Nose: Nose normal. Neck: Vascular: No carotid bruit. Cardiovascular: Rate and Rhythm: Normal rate. Pulses: Normal pulses. Heart sounds: Normal heart sounds. Pulmonary: Effort: Pulmonary effort is normal. Abdominal: General: Bowel sounds are normal. Palpations: Abdomen is soft. Musculoskeletal: General: Normal range of motion. Cervical back: Normal range of motion. Right lower leg: No edema. Left lower leg: No edema. Skin: General: Skin is warm and dry. Neurological: General: No focal deficit present. Mental Status: She is alert. Psychiatric: Mood and Affect: Mood normal. Behavior: Behavior normal. Thought Content: Thought content normal. Judgment: Judgment normal. Allergies Patient has no known allergies. Current Medications Current Outpatient Medications Medication Instructions levothyroxine (SYNTHROID, LEVOXYL) 112 mcg, Daily before breakfast metFORMIN XR (GLUCOPHAGE-XR) 500 mg, Daily metoprolol succinate XL (TOPROL-XL) 50 mg, oral, Daily, Do not crush or chew. omeprazole (PRILOSEC) 20 mg, Daily RT Assessment/Plan 1. Syncope, unspecified syncope type Follow Up In Cardiology Follow Up In Cardiology 2. Postural orthostatic tachycardia syndrome (POTS) metoprolol succinate XL (Toprol-XL) 50 mg 24 hrtablet 3. Acquired hypothyroidism 4. Type 2 diabetes mellitus without complication, without long-term current use of insulin 5. Never smoked tobacco 6. BMI 40.0-44.9, adult (Multi) Scribe Attestation By signing my name below, Radha Cruz LPN, Scribe attest that this documentation has been prepared under the direction and in the presence of Quique Vargas MD. Provider Attestation - Scribe documentation All medical record entries made by the Scribe were at my direction and personally dictated by me. Edwina reviewed the chart and agree that the record accurately reflects my personal performance of the history, physical exam, discussion and plan. documented in this encounter Plan of Treatment Upcoming Encounters Date Type Department Care Team (Late st Contact Info) Description 05/06/2025 8:50 AM EST Office Visit [facility] [address] [facility] [address] [place] [address] Quique Vargas MD [facility] [facility] [address] [place] [address] documented as of this encounter Visit Diagnoses Diagnosis POTS (postural orthostatic tachycardia syndrome) Unspecified tachycardia Postural orthostatic tachycardia syndrome (POTS) Acquired hypothyroidism Unspecified hypothyroidism Type 2 diabetes mellitus without complication, without long-term current use of insulin Never smoked tobacco BMI 40.0-44.9, adult (Multi) documented in this encounter Additional Health Concerns Assessment Noted Time A fall risk assessment has been complete d for the patient 09/12/2024 8:50 AM EDT documented as of this encounter Care Teams Vp Data Relationship Specialty Start Date End Date Linnea Escalante PA-C [address] [place] [address] PCP - General Internal Medicine 04/16/24 documented as of this encounter
[2024-09-16 21:53] VITALS: BP 139/87; PULSE 98; TEMP 36.7; O2SAT 97; BMI 40.1
--- OUTSIDE RECORDS SUMMARY | 2024-09-16 21:54 | XMS_ITS | Encounter Summary ---
Author Organization [facility] Address [address] [place] [address] Care Team Providers Care Transmission System Operator Name Role Phone Linnea Escalante Unavailable [phone] Nickolas Isaacs MD Primary Care Provider [phone] Linnea Escalante Unavailable [phone] Encounter Details Date Type Department Care Team (Late st Contact Info) Description 12/27/2022 Abstract [facility] [address] [place] [address] Linnea Escalante PA [address] [place] [address] Social History Tobacco Use Types Packs/Day Years Used Date Smoking Tobacco: Never Smokeless Tobacco: Never Alcohol Use Standard Drinks/Week Comments Yes 0 (1 standard drink = 0.6 oz pure alcohol) 1-2 drinks of alcohol less than mthly Humiliation, Afraid, Rape, and Kick questionnair e Answer Date Recorded Within the last year, have y ou been afraid of your partner or ex-partner? No 08/01/2022 Within the last year, have y ou been humiliated or emotionally abused in other ways by your partner or ex-partner? No Within the last year, have y ou been kicked, hit, slapped, or otherwise physically hurt by your partner or ex-partner? No 08/01/2022 Within the last year, have y ou been raped or forced to have any kind of sexual activity by your partner or ex-partner? No 08/01/2022 Social Connection and Isolation Panel [NHANES] A nswer Date Recorded In a typical week, how many times do you talk on the phone with family, friends, or neighbors? Once a week 08/03/19 How often do you get togethe r with friends or relatives? Once a week 08/02/2022 How often do you attend chur ch or mu-ism services? 1 to 4 times per year 08/02/2022 Do you belong to any clubs o r organizations such as anglican groups, unions, fraternal or athletic groups, or school groups? No 08/02/2022 How often do you attend meet ings of the clubs or organizations you belong to? Never 08/02/2022 Are you , , di vorced, , never , or living with a partner? Never 08/02/2022 AUDIT-C Answer Date Recorded Q1: How often do you have a drink containing alc ohol? Monthly or less 08/01/2022 Q2: How many drinks containi ng alcohol do you have on a typical day when you are drinking? 1 or 2 08/01/2022 Q3: How often do you have si x or more drinks on one occasion? Never 08/01/2022 Overall Financial Resource Strain (CARDIA) Answe r Date Recorded How hard is it for you to pa y for the very basics like food, housing, medical care, and heating? Somewhat hard 08/01/2022 [facility] - Occupational Stress Questionnaire Answer Date Recorded Do you feel stress - tense, restless, nervous, or anxious, or unable to sleep at night because your mind is troubled all the time - these days? Not at all 08/02/2022 Exercise Vital Sign Answer Date Recorde d On average, how many days pe r week do you engage in moderate to strenuous exercise (like a brisk walk)? 4 days 08/01/2022 On average, how many minutes do you engage in exercise at this level? 50 min 08/01/2022 Hunger Vital Sign Answer Date Recorded Within the past 12 months, y ou worried that your food would run out before you got the money to buy more. Never true 08/03/19 Within the past 12 months, t he food you bought just didn't last and you didn't have money to get more. Never true 08/02/2022 PRAPARE - Transportation Answer Date Re corded In the past 12 months, has l ack of transportation kept you from medical appointments or from getting medications? No 07/12 In the past 12 months, has l ack of transportation kept you from meetings, work, or from getting things needed for daily living? No 08/01/2022 Housing Stability Vital Sign Answer Bryan e Recorded In the last 12 months, was t here a time when you were not able to pay the mortgage or rent on time? No 08/01/2022 In the last 12 months, how many places have you lived? 1 08/01/2022 In the last 12 months, was t here a time when you did not have a steady place to sleep or slept in a custodial (including now)? No 08/01/2022 Comments No Sex and Gender Information Value Date Recorded Sex Assigned at Female 08/01/2022 4:36 PM EDT Legal Sex Female 7:27 PM EDT Gender Identity Female 05/25/2022 7:27 PM EDT Sexual Orientation Straight 08/03/2022 8: 31 PM EDT COVID-19 Exposure Response Date Recorded In the last 10 days, have yo u been in contact with someone who was confirmed or suspected to have Coronavirus/COVID-19? No / Unsure 12/27/2022 9:43 AM EDT documented as of this encounter Plan of Treatment Upcoming Encounters Date Type Department Care Team (Late st Contact Info) Description 10/23/2024 3:00 PM EDT Office Visit [facility] [address] [facility] [place] [address] Db Keane, DO [address] [facility] [place] [address] documented as of this encounter Visit Diagnoses Not on filedocumented in this encounter Care Teams Transmission System Operator Relationship Specialty Start Date End Date Linnea Escalante PA [address] [place] [address] PCP - Medical [employer] 08/11/22 10/03/23 Nickolas Isaacs MD [address] [place] [address] PCP - General Family Medicine 09/28/22 Linnea Escalante PA [address] [place] [address] Physician Finish Specialist Family Medicine 09/28/22 documented as of this encounter
--- OUTSIDE RECORDS SUMMARY | 2024-09-16 21:54 | XMS_ITS | Encounter Summary ---
Author Organization [facility] Address [address] [place] [address] Care Team Providers Care Party Planner Name Role Phone Linnea Escalante Unavailable [phone] Nickolas Isaacs MD Primary Care Provider [phone] Linnea Escalante Unavailable [phone] Encounter Details Date Type Department Care Team (Late st Contact Info) Description 01/16/2023 Abstract [facility] [place] [address] [place] [address] Linnea Escalante PA [address] [place] [address] Social History Tobacco Use Types Packs/Day Years [...] often do you attend chur ch or christianity services? 1 to 4 times per year 08/02/2022 Do you belong to any clubs o r organizations such as mosque groups, unions, fraternal or athletic groups, or [...] medical care, and heating? Somewhat hard 08/01/2022 [facility] - Occupational [...] place to sleep or slept in a senior care (including now)? No 08/01/2022 Comments No Sex [...] suspected to have Coronavirus/COVID-19? No / Unsure 01/04/2023 12:44 PM EDT documented as of this encounter Plan of Treatment Upcoming Encounters Date Type Department Care Team (Late st Contact Info) Description 10/23/2024 3:00 PM EDT Office Visit [facility] [address] [facility] [address] Db Keane, DO [address] [facility] [place] [address] documented as of this encounter Visit Diagnoses Not on filedocumented in this encounter Care Teams Party Planner Relationship Specialty Start Date End Date Linnea Escalante PA [address] [place] [address] PCP - Medical [employer] 08/11/22 10/03/23 Nickolas Isaacs MD [address] [place] [address] PCP - General Family Medicine 09/28/22 Linnea Escalante PA [address] [place] [address] Physician Aluminum Molding Machine Operator Family Medicine 09/28/22 documented as of this encounter
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
--- OUTSIDE RECORDS SUMMARY | 2024-09-16 21:54 | XMS_ITS | Encounter Summary ---
Author Organization [facility] Address [address] [place] [address] Care Team Providers Care Fine Arts Teacher Name Role Phone Nickolas Isaacs MD Primary Care Provider [phone] Linnea Escalante Unavailable [phone] Encounter Details Date Type Department Care Team (Late st Contact Info) Description 10/10/2023 Orders Only [facility] [address] [place] [address] Ese Jones LPN [address] [place] [address] Social History Tobacco Use Types Packs/Day Years Used Date Smoking Tobacco: Never Smokeless Tobacco: Never Alcohol Use Standard Drinks/Week Comments Yes 0 (1 standard drink = 0.6 oz pure alcohol) 1-2 drinks of alcohol less than mthly B1300 Health Literacy Answer Date Recor ded How often do you need to hav e someone help you when you read instructions, pamphlets, or other written material from your doctor or pharmacy? Never 10/04/2023 Humiliation, Afraid, Rape, and Kick questionnair e [...] or ex-partner? No 08/01/2022 Social Connection and Isolat ion Panel [NHANES] Answer Date Recorded In a typical week, how many times do you talk on the phone with family, friends, or neighbors? Twice a week 10/04/2023 How often do you get togethe r with friends or relatives? Twice a week 10/04/2023 How often do you attend chur or christianity services? More than 4 times per year 10/04/2023 Do you belong to any clubs o r organizations such as uatsdin groups, unions, fraternal or athletic groups, or school groups? No 10/04/2023 How often do you attend meet ings of the clubs or organizations you belong to? Patient declined 10/04/2023 Are you , , di vorced, , never , or living with a partner? Never 10/04/2023 AUDIT-C Answer Date Recorded Q1: How often do you have a drink containing alcohol? Never 10/04/2023 Q2: How many drinks containi ng alcohol do you have on a typical day when you are drinking? Patient does not drink Q3: How often do you have si x or more drinks on one occasion? Never 10/04/2023 Overall Financial Resource Strain (CARDIA) Answe r Date Recorded How hard is it for you to pa y for the very basics like food, housing, medical care, and heating? Patient declined 10/04/2023 [facility] - Occupational Stress Questionnaire Answer Date Recorded Do you feel stress - tense, restless, nervous, or anxious, or unable to sleep at night because your mind is troubled all the time - these days? To some extent 10/04/2023 Exercise Vital Sign Answer Date Recorde d On average, how many days pe r week do you engage in moderate to strenuous exercise (like a brisk walk)? 5 days 10/04/2023 On average, how many minutes do you engage in exercise at this level? 50 min 10/04/2023 Hunger Vital Sign Answer Date Recorded Within the past 12 months, y ou worried that your food would run out before you got the money to buy more. Patient declined Within the past 12 months, t he food you bought just didn't last and you didn't have money to get more. Patient declined PRAPARE - Transportation Answer Date Re corded In the past 12 months, has l ack of transportation kept you from medical appointments or from getting medications? No 09/11 In the past 12 months, has l ack of transportation kept you from meetings, work, or from getting things needed for daily living? No 10/04/2023 Housing Stability Vital Sign Answer Bryan e [...] place to sleep or slept in a chcf (including now)? No 08/01/2022 Housing Stability Vital Sign Answer Bryan e Recorded In the last 12 months, was t here a time when you were not able to pay the mortgage or rent on time? Yes 10/04/2023 In the past 12 months, how m any times have you moved where you were living? 0 10/04/2023 At any time in the past 12 m [facility], were you homeless or living in a chcf (including now)? No 10/04/2023 Comments No Sex and Gender Information Value Date Recorded Sex Assigned at Female 08/01/2022 4:36 PM EDT Legal Sex Female 7:27 PM EDT Gender Identity Female 05/25/2022 7:27 PM EDT Sexual Orientation Straight 08/03/2022 8: 31 PM EDT documented as of this encounter Plan of Treatment Upcoming Encounters Date Type Department Care Team (Late st Contact Info) Description 10/23/2024 3:00 PM EDT Office Visit [facility] [address] [facility] [address] Db Keane, DO [address] [place] [address] documented as of this encounter Procedures Procedure Name Priority Date/Time Associated Diagnosis Comments PAP SMEAR Routine 10/13/2022 12:00 AM EDT documented in this encounter Results * Pap Smear (10/13/2022 12:00 AM EDT) Swab Cervical swab / Unknown us Diya Nurse [facility] LAB CYTOLOGY ORDERABLES Final Result EXTERNAL LAB documented in this encounter Visit Diagnoses Not on filedocumented in this encounter Care Teams Fine Arts Teacher Relationship Specialty Start Date End Date Nickolas Isaacs MD [address] [place] [address] PCP - General Family Medicine 09/28/22 Linnea Escalante PA [address] [place] [address] Orderly Family Medicine 09/28/22 documented as of this encounter
--- OUTSIDE RECORDS SUMMARY | 2024-09-16 21:54 | XMS_ITS | Encounter Summary ---
Author Organization [facility] Address [address] [place] [address] Care Team Providers Care Administrative Processor Name Role Phone Linnea Escalante PA-C Primary Care Provider Maddi Ochoa RN Unavailable Source Comments In the event this information is protected by the Federal Confidentiality of Alcohol and Drug AbusePatient Records regulations: The Federal rules restrict any use of the information to criminally investigate or prosecute any alcohol or drug abuse patient.[facility] Encounter Details Date Type Department Care Team (Late st Contact Info) Description 08/28/2024 GI Preprocedure Call Ambulatory Surgery [address] [place] [address] [place] [address] [place] [id number] Social History Tobacco Use Types Packs/Day Years Used Date Smoking Tobacco: Never Assessed Area Deprivation Index Answer Date Satish rded National Score (1-100), lower number is lower ri sk 76 11/18/2022 State Score (1-10), lower number is lower risk 6 11/18/2022 Data from: https://www.neigh marihoodatroas.medicine.[facility].edu/. Last address used for calculation [address] 11/18/2022 Comments Unknown Sex and Gender Information Value Date Recorded Sex Assigned at Female 01/12/2023 3:43 PM EDT Legal Sex Female 7:53 PM EDT Gender Identity Female 01/12/2023 3:43 PM EDT Sexual Orientation Straight 01/12/2023 3: 43 PM EDT documented as of this encounter Plan of Treatment Upcoming Encounters Date Type Department Care Team (Late st Contact Info) Description 09/24/2024 8:30 AM EDT Appointment Molecular Imaging [address] [place], [place] [id number] [place] GASTRIC EMPTYING SOLID documented as of this encounter Visit Diagnoses Not on filedocumented in this encounter Care Teams Administrative Processor Relationship Specialty Start Date End Date Linnea Escalante PA-C [address] [place] [address] PCP - General Family Medicine 02/03/23 Maddi Ochoa, [place] [address] [place] [phone] Specialty Rn Surgery Hematology/Oncology 02/10/23 documented as of this encounter
--- OUTSIDE RECORDS SUMMARY | 2024-09-16 21:54 | XMS_ITS | Encounter Summary ---
Author Organization [facility] Address [address] [place] [address] Care Team Providers Care Backside Grinder Name Role Phone Linnea Escalante PA-C Primary Care Provider Maddi Ochoa RN Unavailable Source Comments In the event this information is protected by the Federal Confidentiality of Alcohol and Drug AbusePatient Records regulations: The Federal rules restrict any use of the information to criminally investigate or prosecute any alcohol or drug abuse patient.[facility] Encounter Details Date Type Department Care Team (Late st Contact Info) Description 09/03/2024 Results Follow-Up Ambulatory Surgery [address] [place] [address] [place] [address] [place] [address] Social History Tobacco Use Types Packs/Day Years Used Date Smoking Tobacco: Never Smokeless Tobacco: Never Alcohol Use Standard Drinks/Week Comments Never 0 (1 standard drink = 0.6 oz pur e alcohol) Area Deprivation Index Answer Date Satish rded National Score (1-100), lower number is lower ri sk 76 11/18/2022 State Score (1-10), lower number is lower risk 6 11/18/2022 Data from: https://www.neigh marihoodatlas.medicine.[facility].edu/. Last address used for calculation 24 [...] 09/24/2024 8:30 AM EDT Appointment Molecular Imaging [address] [place] [address] [place] [employer] SOLID documented as of this encounter Visit Diagnoses Not on filedocumented in this encounter Care Teams Backside Grinder Relationship Specialty Start Date End Date Linnea Escalante PA-C [address] [place] [address] PCP - General Family Medicine 02/03/23 [place] [address] [place] [address] Specialty Real Estate Firm Manager Hematology/Oncology 02/10/23 documented as of this encounter
--- OUTSIDE RECORDS SUMMARY | 2024-09-16 21:54 | XMS_ITS | Encounter Summary ---
Author Organization [facility] Address [address] [place] [address] Phone Care Team Providers Care Pasteurizing Supervisor Name Role Phone Linnea Escalante PA-C Primary Care Provider [phone] Encounter Details Date Type Department Care Team (Late st Contact Info) Description 1995 Scanned Document [facility] [address] [place] [id number] Scanning, Generic Provider Social History Tobacco Use Types Packs/Day Years Used Date Smoking Tobacco: Never Assessed Comments Unknown Sex and Gender Information Value Date Recorded Sex Assigned at Not on file Legal Sex Female 12:14 PM EST Gender Identity Not on file Sexual Orientation Not on file documented as of this encounter Plan of Treatment Upcoming Encounters Date Type Department Care Team (Late st Contact Info) Description 05/06/2025 8:50 AM EST Office Visit [facility] [address] [facility] [address] [place] [address] Quique Vargas MD [address] [facility] [address], [address] [place], [place] [id number] documented as of this encounter Visit Diagnoses Not on filedocumented in this encounter Care Teams Pasteurizing Supervisor Relationship Specialty Start Date End Date Linnea Escalante PA-C [address] [place] [address] PCP - General Internal Medicine 04/16/24 documented as of this encounter
--- OUTSIDE RECORDS SUMMARY | 2024-09-16 21:54 | XMS_ITS | Encounter Summary ---
Author Organization [facility] Address [address] [place] [address] Care Team Providers Care Cryptologic Technician Operator/Analyst Name Role Phone Linnea Escalante PA-C Primary Care Provider Maddi Ochoa RN Unavailable Source Comments In the event this information is protected by the Federal Confidentiality of Alcohol and Drug AbusePatient Records regulations: The Federal rules restrict any use of the information to criminally investigate or prosecute any alcohol or drug abuse patient.[facility] Encounter Details Date Type Department Care Team (Late st Contact Info) Description 02/21/2023 [place] [address] Provider, Ccf Questionnaire Submission Social History Tobacco Use Types Packs/Day Years Used Date Smoking Tobacco: Never Assessed Area Deprivation Index Answer Date Satish rded National Score (1-100), lower number is lower ri sk 76 11/18/2022 State Score (1-10), lower number is lower risk 6 11/18/2022 Data from: https://www.neigh borhoodatlas.medicine.[facility].edu/. Last address used for calculation [address] [...] 8:30 AM EDT Appointment Molecular Imaging [address] [place] [address] [place] [employer] E[employer] SOLID documented as of this encounter Visit Diagnoses Not on filedocumented in this encounter Care Teams Cryptologic Technician Operator/Analyst Relationship Specialty Start Date End Date Linnea Escalante PA-C [address] [place] [address] PCP - General Family Medicine 02/03/23 [place] [address] [place] [address] Specialty Brush Polisher Hematology/Oncology 02/10/23 documented as of this encounter
--- OUTSIDE RECORDS SUMMARY | 2024-09-16 21:54 | XMS_ITS | Encounter Summary ---
Author Organization [facility] Address [address] [place] [address] Care Team Providers Care Flight Communications Specialist Name Role Phone Linnea Escalante Unavailable [phone] Nickolas Isaacs MD Primary Care Provider [phone] Linnea Escalante Unavailable [phone] Encounter Details Date Type Department Care Team (Late st Contact Info) Description 03/15/2023 Clinisync Result Encounter [facility] External Department Unsolicited Mily Dailey NP [address] [place], [place] [id number] Social History Tobacco Use Types Packs/Day Years [...] often do you attend chur ch or orthodoxy services? 1 to 4 times per year 08/02/2022 Do you belong to any clubs o r organizations such as mormon groups, unions, fraternal or athletic groups, or [...] medical care, and heating? Somewhat hard 08/01/2022 [facility] - Occupational [...] place to sleep or slept in a half-way (including now)? No 08/01/2022 Comments No Sex [...] PM EST documented as of this encounter Miscellaneous Notes * Result Encounter Note - Mily Dailey NP - 03/15/2023 11:59 PM EST No change since cta on 12/26. Does pt see pulmonology? documented in this encounter Plan of Treatment Upcoming Encounters Date Type Department Care Team (Late st Contact Info) Description 10/23/2024 3:00 PM EDT Office Visit [facility] [address] [facility] [place] [address] Db Keane, DO [address] [place], [place] [id number] documented as of this encounter Procedures Procedure Name Priority Date/Time Associated Diagnosis Comments XR CHEST 2 VIEWS 03/15/2023 6:28 PM EST documented in this encounter Results * XR CHEST 2 VIEWS (03/15/2023 6:28 PM EST) Anatomical Region Laterality Modality Other 03/15/2023 6:28 PM EST Narrative 03/15/2023 6:56 PM EST Exam Date/Time: 03/15/2023 18:37 EST Reason for Exam: Cough Report IMPRESSION: NO EVIDENCE OF ACTIVE CARDIOPULMONARY DISEASE. EXAM: XR Chest 2 Views DATE: 03/15/2023 6:28 PM CLINICAL HISTORY: Cough. COMPARISON: Two-view chest 04/11/2022 and chest CTA 12/26/2022 . TECHNIQUE: Upright PA and lateral radiographs of the chest were obtained. FINDINGS: There is no significant pulmonary infiltrate, cardiomegaly, pleural effusion, vascular congestion, pneumothorax, or displaced fractures identified. Numerous small radiodense BBs predominantly overlying the right thoracic inlet and a small calcified granuloma within the right lower lobe are again noted. Ordering Provider: , FINAL REPORT Dictated: 03/15/2023 6:53 pm Anton Mcneill MD Signed (Electronic Signature): 03/15/2023 6:53 pm Signed by: Anton Mcneill MD Transcribed by: MIRIAM Technologist: BRADLEY Technical Comments Radiation Dose: Ka,r in mGy = na DAP = na Procedure Note Radiology, Radiologist, - 03/16/2023 Exam Date/Time: 03/15/2023 18:37 EST Reason for Exam: Cough Report IMPRESSION: NO EVIDENCE OF ACTIVE CARDIOPULMONARY DISEASE. EXAM: XR Chest 2 Views DATE: 03/15/2023 6:28 PM CLINICAL HISTORY: Cough. COMPARISON: Two-view chest 04/11/2022 and chest CTA 12/26/2022 . TECHNIQUE: Upright PA and lateral radiographs of the chest wereobtained. FINDINGS: There is no significant pulmonary infiltrate, cardiomegaly, pleuraleffusion, vascular congestion, pneumothorax, or displaced fractures identified.Numerous small radiodense BBs predominantly overlying the right thoracic inlet and asmall calcified granuloma within the right lower lobe are again noted. Ordering Provider: , FINAL REPORT Dictated: 03/15/2023 6:53 pm Anton Mcneill MD Signed (Electronic Signature): 03/15/2023 6:53 pm Signed by: Anton Mcneill MD Transcribed by: MIRIAM Technologist: BRADLEY Technical Comments Radiation Dose: Ka,r in mGy = na DAP = na us Mily Dailey HORTICULTURE INSTRUCTOR [facility] Final Resul t documented in this encounter Visit Diagnoses Not on filedocumented in this encounter Care Teams Flight Communications Specialist Relationship Specialty Start Date End Date Linnea Escalante PA [address] [place] [address] PCP - Medical [facility] 08/11/22 10/03/23 Nickolas Isaacs MD [address] [place] [address] PCP - General Family Medicine 09/28/22 Linnea Escalante PA [address] [place] [address] Physician Goodwill Representative Family Medicine 09/28/22 documented as of this encounter
--- OUTSIDE RECORDS SUMMARY | 2024-09-16 21:54 | XMS_ITS | Encounter Summary ---
Author Organization [facility] Address [address] [place] [address] Care Team Providers Care Supervisor Alteration Workroom Name Role Phone Linnea Escalante Unavailable [phone] Nickolas Isaacs MD Primary Care Provider [phone] Linnea Escalante Unavailable [phone] Encounter Details Date Type Department Care Team (Late st Contact Info) Description 06/14/2023 Clinisync Result Encounter [facility] External Department Unsolicited Deon Parra MD [address] [facility] [place] [id number] Social History Tobacco Use Types Packs/Day Years [...] often do you attend chur ch or roman catholic services? 1 to 4 times per year 08/02/2022 Do you belong to any clubs o r organizations such as latter day groups, unions, fraternal or athletic groups, or school groups? No 08/02/2022 How often do you attend meet ings of the clubs or organizations you belong to? Never 08/02/2022 Are you , , di vorced, , never , or living with a partner? Never 08/02/2022 AUDIT-C Answer Date Recorded Q1: How often do you have a drink containing alc ohol? Monthly or less 04/19/2023 Q2: How many drinks containi ng alcohol do you have on a typical day when you are drinking? 1 or 2 04/19/2023 Q3: How often do you have si x or more drinks on one occasion? Never 04/19/2023 Overall Financial Resource Strain (CARDIA) Answe r Date Recorded How hard is it for you to pa y for the very basics like food, housing, medical care, and heating? Somewhat hard 08/01/2022 [facility] - Occupational Stress [...] place to sleep or slept in a assisted (including now)? No 08/01/2022 Comments No Sex [...] EDT Office Visit [facility] OB [address] [facility] [place] [phone] Db Keane, DO [address] [place] [address] [address] [place], [place] [id number] documented as of this encounter Procedures Procedure Name Priority Date/Time Associated Diagnosis Comments MRI BRAIN W/ + W/O CONTRAST 06/14/2023 7:50 AM EDT documented in this encounter Results * MRI BRAIN W/ + W/O CONTRAST (06/14/2023 7:50 AM EDT) Anatomical Region Laterality Modality Other 06/14/2023 7:50 AM EDT Narrative 06/15/2023 4:20 PM EDT Exam Date/Time: 06/14/2023 08:43 EDT Reason for Exam: G44.52 New daily persistent headache (NDPH), H81.4 Report IMPRESSION: No acute intracranial process or suspicious enhancement. Few punctate foci of increased T2 and FLAIR signal are noted in the supratentorial white matter which is a nonspecific finding, but likely within normal limits for age, or could be seen with migraine headaches or minimal microvascular ischemia. EXAMINATION: MRI Brain w/ + w/o Contrast HISTORY: G44.52 New daily persistent headache (NDPH), H81.4 TECHNIQUE: Routine brain MRI protocol without and with contrast including diffusion images. CONTRAST: 10 mL gadolinium (Vueway) COMPARISON: CT head 01/26/2023. RESULT: Acute Change: There is no evidence of restricted diffusion to suggest an acute infarct. Hemorrhage: No evidence of prior parenchymal hemorrhage. Mass Lesion/ Mass Effect: No evidence of an intracranial mass or extra-axial fluid collection. No abnormal parenchymal or leptomeningeal enhancement following contrast administration. No significant mass effect. Chronic Change: Few punctate foci of increased T2 and FLAIR signal are noted in the supratentorial white matter which is a nonspecific finding, but likely within normal limits for age, or could be seen with migraine headaches or minimal microvascular ischemia. Parenchyma: No significant volume loss for age. The brain parenchyma is otherwise within normal limits of signal intensity and morphology. Ventricles: Normal caliber and morphology. Skull Base: Hypothalamic and pituitary region are grossly normal. Craniocervical junction is normal. No significant marrow replacement process. Vasculature: Major intracranial arterial structures, and dural venous sinuses show typical flow void, suggesting patency. Report Other: The visualized paranasal are clear. Mastoid air cells are clear. The orbits are unremarkable. The extracranial soft tissues are unremarkable. Ordering Provider: Deon Parra FINAL REPORT Dictated: 06/15/2023 4:17 pm Leonardo Fairchild MD Signed (Electronic Signature): 06/15/2023 4:17 pm Signed by: Leonardo Fairchild MD Transcribed by: MIRIAM Technologist: FRANCESCA Technical Comments Vueway Contrast amount in ml's: 10 Procedure Note Radiology, Radiologist, - 06/15/2023 Exam Date/Time: 06/14/2023 08:43 EDT Reason for Exam: G44.52 New daily persistent headache (NDPH), H81.4 Report IMPRESSION: No acute intracranial process or suspicious enhancement. Few punctate foci of increased T2 and FLAIR signal are noted in thesupratentorial white matter which is a nonspecific finding, but likely within normallimits for age, or could be seen with migraine headaches or minimal microvascularischemia. EXAMINATION: MRI Brain w/ + w/o Contrast HISTORY: G44.52 New daily persistent headache (NDPH), H81.4 TECHNIQUE: Routine brain MRI protocol without and with contrast includingdiffusion images. CONTRAST: 10 mL gadolinium (Vueway) COMPARISON: CT head 01/26/2023. RESULT: Acute Change: There is no evidence of restricted diffusion to suggest anacute infarct. Hemorrhage: No evidence of prior parenchymal hemorrhage. Mass Lesion/ Mass Effect: No evidence of an intracranial mass orextra-axial fluid collection. No abnormal parenchymal or leptomeningeal enhancementfollowing contrast administration. No significant mass effect. Chronic Change: Few punctate foci of increased T2 and FLAIR signal arenoted in the supratentorial white matter which is a nonspecific finding, but likelywithin normal limits for age, or could be seen with migraine headaches or minimalmicrovascular ischemia. Parenchyma: No significant volume loss for age. The brain parenchyma isotherwise within normal limits of signal intensity and morphology. Ventricles: Normal caliber and morphology. Skull Base: Hypothalamic and pituitary region are grossly normal.Craniocervical junction is normal. No significant marrow replacement process. Vasculature: Major intracranial arterial structures, and dural venoussinuses show typical flow void, suggesting patency. Report Other: The visualized paranasal are clear. Mastoid air cells are clear.The orbits are unremarkable. The extracranial soft tissues are unremarkable. Ordering Provider: Deon Parra FINAL REPORT Dictated: 06/15/2023 4:17 pm Leonardo Fairchild MD. Signed (Electronic Signature): 06/15/2023 4:17 pm Signed by: Leonardo Fairchild MD Transcribed by: MIRIAM Technologist: FRANCESCA Technical Comments Vueway Contrast amount in ml's: 10 us Deon Parra MD [facility] Final Resul t documented in this encounter Visit Diagnoses Not on filedocumented in this encounter Care Teams Supervisor Alteration Workroom Relationship Specialty Start Date End Date Linnea Escalante PA [address] [place] [address] PCP - Medical [facility] 08/11/22 10/03/23 Nickolas Isaacs MD [address] [place] [address] PCP - General Family Medicine 09/28/22 Linnea Escalante PA [address] [place] [address] Physician Furnace Attendant Family Medicine 09/28/22 documented as of this encounter
--- OUTSIDE RECORDS SUMMARY | 2024-09-16 21:54 | XMS_ITS | Encounter Summary ---
Author Organization [facility] Address [address] [place] [address] Care Team Providers Care Pocket Operator Name Role Phone Nickolas Isaacs MD Primary Care Provider [phone] Linnea Escalante Unavailable [phone] Encounter Details Date Type Department Care Team (Late st Contact Info) Description 08/14/2024 External Result Encounter [facility] External Department Unsolicited Linnea Escalante PA [address] [place] [address] Social History Tobacco Use Types Packs/Day Years [...] How often do you attend chur or hoahaoism services? More than 4 times per year 10/04/2023 Do you belong to any clubs o r organizations such as shinto groups, unions, fraternal or athletic groups, or [...] medical care, and heating? [facility] Answer Date Recorded [...] place to sleep or slept in a long-term (including now)? No 08/01/2022 Housing Stability Vital Sign Answer Bryan e Recorded In the last 12 months, was t here a time when you were not able to pay the mortgage or rent on time? Yes 10/04/2023 In the past 12 months, how m any times have you moved where you were living? 0 10/04/2023 At any time in the [facility], were you homeless or living in a long-term (including now)? No 10/04/2023 Comments No Sex [...] EDT Office Visit [facility] [address] [place] [address] Db Keane, [address] [place], [place] [id number] documented as of this encounter Procedures Procedure Name Priority Date/Time Associated Diagnosis Comments CT ABDOMEN PELVIS WO IV CONTRAST 08/14/2024 10:31 AM EDT documented in this encounter Results * CT abdomen pelvis wo IV contrast (08/14/2024 10:31 AM EDT) Anatomical Region Laterality Modality Body, Pelvis, Abdomen Computed T omography 08/14/2024 10:3 1 AM EDT Impressions 08/14/2024 11:05 AM EDT No soft tissue mass at site of clinical concern. Impression dictated by: Meet Miller M.D. 08/14/2024 11:03 AM Dictation Location: [facility]-- Transcribed By: [facility] 08/14/24 1103 Dictated By: Meet Miller MD 08/14/24 1031 Signed By: <Electronically signed by Meet Miller MD in OV> 08/14/24 1103 Narrative 08/14/2024 11:05 AM EDT [facility] [place] [place] [address] CT Scan Report Signed Patient: Yolie Martinez MR#: [id number] : 1995 Acct:[id number] Age/Sex: 29 / F ADM Date: 08/14/24 Loc: CT Room: Type: [facility] Attending Dr: Linnea Escalante PA-C, Copies to: Linnea Escalante Pa-C Ordering Provider: Linnea Escalante Pa-C Date of Service: 08/14/24 CT/CT abdomen [...] hydronephrosis. Prior cholecystectomy.[ GI: Small hiatal hernia. Yshi-tt-kmqbygqb retained stool within the colon. Mild colonic diverticulosis. Unremarkable appendix.[ Pelvis:[Bladder is collapsed. Uterus unremarkable. No adnexal mass.] Peritoneum/Retroperitoneum:No free air or free fluid. No adenopathy.[ Abd wall/Bones:Cutaneous markers right umbilical region. Likely areas of scarring noted right periumbilical region appearing decrease prior examination[no evidence of periumbilical mass identified. No suspicious osseous lesion. CT/CT abdomen pelvis wo con Procedure Note Radiology, Radiologist, - 08/14/2024 [facility] [place] [address] [place] [address] CT Scan Report Signed Patient: Yolie Martinez PMR#: [id number] : 1995Acct:[id number] Age/Sex: 29 / FADM Date: 08/14/24 Loc: CT Room:Type: [facility] Attending Dr: Linnea Escalante PA-C, Copies to: Linnea Escalante Pa-C Ordering Provider: Linnea Escalante Pa-C Date of Service: 08/14/24 CT/CT abdomen pelvis wo con: R10.32, R19.05 CT ABDOMEN AND PELVIS WITHOUT INTRAVENOUS CONTRAST: CLINICAL HISTORY: Periumbilical mass COMPARISON: CT abdomen pelvis from outside facility 02/14/2023 TECHNIQUE: Spiral images were obtained through the abdomen and pelviswithout intravenous contrast. This CT exam was performed using one or more following dose reductiontechniques: Automated exposure control, adjustment of the mA and/or kV according to patientsize, or use of iterative reconstruction technique. FINDINGS: Lung Bases: [No focal opacity within the bases. Small hiatal hernia.] Organs:Liver, spleen, adrenals, kidneys, pancreas unremarkable. Negativefor nephrolithiasis. No hydronephrosis. Prior cholecystectomy.[ GI: Small hiatal hernia. Eeyk-gw-ohsxgdli retained stool within thecolon. Mild colonic diverticulosis. Unremarkable appendix.[ Pelvis:[Bladder is collapsed. Uterus unremarkable. No adnexal mass.] Peritoneum/Retroperitoneum:No free air or free fluid. No adenopathy.[ Abd wall/Bones:Cutaneous markers right umbilical region. Likely areas ofscarring noted right periumbilical region appearing decrease prior examination[no evidence ofperiumbilical mass identified. No suspicious osseous lesion. CT/CT abdomen pelvis wo con IMPRESSION: No soft tissue mass at site of clinical concern. Impression dictated by: Meet Miller M.D. 08/14/2024 11:03 AM Dictation Location: [facility]--23 Transcribed By: [facility] 08/14/24 1103 Dictated By: Meet Miller MD 08/14/24 1031 Signed By: <Electronically signed by Meet Miller MD in OV> 08/14/24 1103 us Linnea [facility] IM[facility] CT PROCEDURES Final Res ult documented in this encounter Visit Diagnoses Not on filedocumented in this encounter Care Teams Pocket Operator Relationship Specialty Start Date End Date Nickolas Isaacs MD [address] [place] [address] PCP - General Family Medicine 09/28/22 Linnea Escalante PA [address] [place] [address] Physician Chairlift Operator Family Medicine 09/28/22 documented as of this encounter
--- OUTSIDE RECORDS SUMMARY | 2024-09-16 21:54 | XMS_ITS | Encounter Summary ---
Author Organization [facility] Address [facility] [place] [address] Care Team Providers Care Senior Logistics Manager Name Role Phone Linnea Escalante PA-C Primary Care Provider Maddi Ochoa RN Unavailable Source Comments In the event this information is protected by the Federal Confidentiality of Alcohol and Drug AbusePatient Records regulations: The Federal rules restrict any use of the information to criminally investigate or prosecute any alcohol or drug abuse patient.[facility] Encounter Details Date Type Department Care Team (Late st Contact Info) Description 08/14/2024 Patient Msg [facility] [address] [place] [address] ProviderKieran colon prep instructions Social History Tobacco Use Types Packs/Day Years Used Date Smoking Tobacco: Never Assessed Area Deprivation Index Answer Date Satish rded National Score (1-100), lower number is lower ri sk 76 11/18/2022 State Score (1-10), lower number is lower risk 6 11/18/2022 Data from: https://www.neigh marihoodatrosa.medicine.[facility].edu/. Last address used for calculation [address] [...] 8:30 AM EDT Appointment Molecular Imaging [address] [place] [address] [place] [employer]STR[employer] EMPTY[employer] SOLID documented as of this encounter Visit Diagnoses Not on filedocumented in this encounter Care Teams Senior Logistics Manager Relationship Specialty Start Date End Date Linnea Escalante PA-C [address] [place] [address] PCP - General Family Medicine 02/03/23 [place] [address] [place] [address] Specialty Senior Statistical Programmer Hematology/Oncology 02/10/23 documented as of this encounter
--- OUTSIDE RECORDS SUMMARY | 2024-09-16 21:54 | XMS_ITS | Encounter Summary ---
Author Organization [facility] Address [address] [place] [address] Care Team Providers Care Rail Gang Supervisor Name Role Phone Linnea Escalante Unavailable [phone] Nickolas Isaacs MD Primary Care Provider [phone] Linnea Escalante Unavailable [phone] Encounter Details Date Type Department Care Team (Late st Contact Info) Description 04/05/[address] [facility] [address] [place] [id number] Linnea Escalante PA [address] [place] [address] Social History Tobacco Use Types Packs/Day Years [...] often do you attend chur ch or jain services? 1 to 4 times per year 08/02/2022 Do you belong to any clubs o r organizations such as baptist groups, unions, fraternal or athletic groups, or [...] medical care, and heating? Somewhat hard 08/01/2022 [facility] Occupat ional Health - Occupational Stress [...] place to sleep or slept in a intermediate (including now)? No 08/01/2022 Comments No Sex [...] 10/23/2024 3:00 PM EDT Office Visit [facility] OB [address] [place] [address] Db Keane, DO [address] [place], [place] [id number] documented as of this encounter Procedures Procedure Name Priority Date/Time Associated Diagnosis Comments MRI ABDOMEN W & WO CON Routine 04/05/2023 8:57 AM EST documented in this encounter Results * MRI ABDOMEN W & WO CON (04/05/2023 8:57 AM EST) Anatomical Region Laterality Modality Radiographic Magui ging us Linnea [facility] IMG XR PROCEDURES Final Res ult documented in this encounter Visit Diagnoses Not on filedocumented in this encounter Care Teams Rail Gang Supervisor Relationship Specialty Start Date End Date Linnea Escalante PA [address] [place] [address] PCP - Medical [facility] 08/11/22 10/03/23 Nickolas Isaacs MD [address] [place] [address] PCP - General Family Medicine 09/28/22 Linnea Escalante PA [address] [place] [address] Physician Egg Factory Worker Family Medicine 09/28/22 documented as of this encounter
--- OUTSIDE RECORDS SUMMARY | 2024-09-16 21:54 | XMS_ITS | Encounter Summary ---
Author Organization [facility] Address [address] [place] [address] Phone Care Team Providers Care Aircraft Structural Repair Mechanic Name Role Phone Linnea Escalante PA-C Primary Care Provider [phone] Encounter Details Date Type Department Care Team (Late st Contact Info) Description 04/16/2024 Scanned Document [facility] [address] [place] [phone] Scanning, Generic Provider Social History Tobacco Use [...] Description 05/06/2025 8:50 AM EST Office Visit [facility] [address] [facility] [address] [place] [address] Quique Vargas MD [address] [facility] [address], [address] [place], [place] [id number] documented as of this encounter Visit Diagnoses Not on filedocumented in this encounter Care Teams Aircraft Structural Repair Mechanic Relationship Specialty Start Date End Date Linnea Escalante PA-C [address] [place] [address] PCP - General Internal Medicine 04/16/24 documented as of this encounter
--- OUTSIDE RECORDS SUMMARY | 2024-09-16 21:54 | XMS_ITS | Encounter Summary ---
Author Organization [facility] Address [address] [place] [address] Phone Care Team Providers Care Pharmacy Cashier Name Role Phone Linnea Escalante PA-C Primary Care Provider [phone] Encounter Details Date Type Department Care Team (Late st Contact Info) Description 08/28/[address] [facility] [address] [place] [phone] Scanning, Generic Provider Social History Tobacco Use [...] Description 05/06/2025 8:50 AM EST Office Visit [facility] [address] [facility] [address] [place] [address] Quique Vargas MD [address] [facility] [address], [address] [place] [address] documented as of this encounter Visit Diagnoses Not on filedocumented in this encounter Care Teams Pharmacy Cashier Relationship Specialty Start Date End Date Linnea Escalante PA-C [address] [place] [address] PCP - General Internal Medicine 04/16/24 documented as of this encounter
--- OUTSIDE RECORDS SUMMARY | 2024-09-16 21:54 | XMS_ITS | Encounter Summary ---
Author Organization [facility] Address [address] [place] [address] Phone Care Team Providers Care Grit Removal Operator Name Role Phone Linnea Escalante PA-C Primary Care Provider [phone] Encounter Details Date Type Department Care Team (Latest Contact Info) Description 09/05/2024 Travel Social History Tobacco Use Types Packs/Day Years Used Date Smoking Tobacco: Never Smokeless Tobacco: Never Alcohol Use Standard Drinks/Week Comments Not Currently 0 (1 standard drink = 0.6 oz [...] Description 05/06/2025 8:50 AM EST Office Visit [facility] [address] [facility] [address] [place] [phone] Quique Vargas MD [address] [facility] [address], [address] [place] [address] documented as of this encounter Visit Diagnoses Not on filedocumented in this encounter Care Teams Grit Removal Operator Relationship Specialty Start Date End Date Linnea Escalante PA-C [address] [place] [address] PCP - General Internal Medicine 04/16/24 documented as of this encounter
--- OUTSIDE RECORDS SUMMARY | 2024-09-16 21:54 | XMS_ITS | Encounter Summary ---
Author Organization [facility] Address [address] [place] [address] Care Team Providers Care Kitchenhand Name Role Phone Linnea Escalante Unavailable [phone] Nickolas Isaacs MD Primary Care Provider [phone] Linnea Escalante Unavailable [phone] Encounter Details Date Type Department Care Team [...] How often do you attend chur or rastafari services? 1 to 4 times per year 08/02/2022 Do you belong to any clubs o r organizations such as synagogue groups, unions, fraternal or athletic groups, or [...] medical care, and heating? Somewhat hard 08/01/2022 [facility] Occupat ional Health - Occupational [...] place to sleep or slept in a penitentiary (including now)? No 08/01/2022 Comments No Sex [...] 10/23/2024 3:00 PM EDT Office Visit [facility] [address] [address] Db Keane, DO [address] [place] [address] [address] [place] [place], [place] [phone] documented as of this encounter Procedures Procedure Name Priority Date/Time Associated Diagnosis Comments MRI ABDOMEN WO/W IVCON 02/23/2023 3:32 PM EST documented in this encounter Results * MRI ABDOMEN WO/W IVCON (02/23/2023 3:32 PM EST) Anatomical Region Laterality Modality Other 02/23/2023 3:32 PM EST Narrative 02/23/2023 4:30 PM EST * * *Final Report* * * DATE OF EXAM: Feb 23 2023 3:32PM [facility] 0689 - MRI ABDOMEN WO/W IVCON / PROCEDURE REASON: [facility] referring - soft tissue mass, flank, deep * * * * Physician Interpretation * * * * RESULT: MRI ABDOMEN WITHOUT AND WITH IV CONTRAST CLINICAL HISTORY: 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 TECHNIQUE: Magnet: 1.5T scanner. Multiplanar MRI of the abdomen with multiple sequences, including both pre- and post-contrast imaging, utilizing liver protocol. Contrast: Intravenous: 19 ml of Dotarem COMPARISON: CT abdomen/pelvis 11/18/2022 RESULT: Liver: Normal morphology. Mild hepatic steatosis. No mass. Biliary: No intrahepatic or extrahepatic bile duct dilation. No biliary filling defect. Cholelithiasis. Spleen: No mass. No splenomegaly. Pancreas: No mass or duct dilation. Adrenals: No mass. Kidneys: No solid or cystic mass. No hydronephrosis. GI: No dilated bowel or wall thickening along imaged segments. Lymph nodes: No abdominal lymphadenopathy. Mesentery / Peritoneum / Retroperitoneum: No ascites or mass. Vasculature: The celiac axis and SMA are patent. The portal vein and branches, splenic vein, SMV, and hepatic veins are patent. Bones/Soft Tissues: Postoperative changes in the right mid ventral abdominal wall related to interval mass resection with linear T2 hypointense scarring. No residual mass or area of abnormal enhancement. Lower chest: Chest imaging performed will be reported separately. IMPRESSION: Postoperative changes in the right ventral abdominal wall without residual/recurrent mass. Mild hepatic steatosis. Transcribe Date/Time: Feb 23 2023 3:44P Dictated by: JESSICA BRIDGES, DO This examination was interpreted and the report reviewed and electronically signed by: PAULINE BAPTISTE MD on Feb 23 2023 4:28PM EST Thank you for allowing us to participate in the care of your patient. Should there be any questions regarding this interpretation, please call [phone]. If you are unable to reach us at the number above, please feel free to contact [facility] at [phone]. 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 TECHNIQUE: Magnet: 1.5T scanner. Multiplanar MRI of the abdomen with multiple sequences, including both pre- and post-contrast imaging, utilizing liver protocol. Contrast: Intravenous: 19 ml of Dotarem COMPARISON: CT abdomen/pelvis 11/18/2022 RESULT: Liver: Normal morphology. Mild hepatic steatosis. No mass. Biliary: No intrahepatic or extrahepatic bile duct dilation. No biliary filling defect. Cholelithiasis. Spleen: No mass. No splenomegaly. Pancreas: No mass or duct dilation. Adrenals: No mass. Kidneys: No solid or cystic mass. No hydronephrosis. GI: No dilated bowel or wall thickening along imaged segments. Lymph nodes: No abdominal lymphadenopathy. Mesentery / Peritoneum / Retroperitoneum: No ascites or mass. Vasculature: The celiac axis and SMA are patent. The portal vein and branches, splenic vein, SMV, and hepatic veins are patent. Bones/Soft Tissues: Postoperative changes in the right mid ventral abdominal wall related to interval mass resection with linear T2 hypointense scarring. No residual mass or area of abnormal enhancement. Lower chest: Chest imaging performed will be reported separately. IMPRESSION: Postoperative changes in the right ventral abdominal wall without residual/recurrent mass. Mild hepatic steatosis. Transcribe Date/Time: Feb 23 2023 3:44P Dictated by: JESSICA BRIDGES, DO This examination was interpreted and the report reviewed and electronically signed by: PAULINE BAPTISTE MD on Feb 23 2023 4:28PM EST Thank you for allowing us to participate in the care of your patient. Should there be any questions regarding this interpretation, please call [phone]. If you are unable to reach us at the number above, please feel free to contact [facility] at [phone]. [id number]^[email or web address]^ACN us Generic External Data Provider [facility] Final Result documented in this encounter Visit Diagnoses Not on filedocumented in this encounter Care Teams Kitchenhand Relationship Specialty Start Date End Date Boris, Linnea J, PA [address] [place] [address] PCP - Medical [facility] 08/11/22 10/03/23 Nickolas Isaacs MD [address] [place] [address] PCP - General Family Medicine 09/28/22 Linnea Escalante PA [address] [place] [address] Physician Fuel Cell Binder Family Medicine 09/28/22 documented as of this encounter
--- OUTSIDE RECORDS SUMMARY | 2024-09-16 21:54 | XMS_ITS | Encounter Summary ---
Author Organization [facility] Address [address] [place] [address] Care Team Providers Care Dimension Warehouse Supervisor Name Role Phone Linnea Escalante PA-C Primary Care Provider Maddi Ochoa RN Unavailable Source Comments In the event this information is protected by the Federal Confidentiality of Alcohol and Drug AbusePatient Records regulations: The Federal rules restrict any use of the information to criminally investigate or prosecute any alcohol or drug abuse patient.[facility] Encounter Details Date Type Department Care Team (Late st Contact Info) Description 09/05/2024 Get Medical Advice Gastroenterology [address] [place], [place] [phone] Irma Nava APRN.ANGLE SHEAR SET UP OPERATOR [address] [place], [place] [id number] GASTRIC EMPTYING STUDY Social History Tobacco Use Types Packs/Day Years Used Date Smoking Tobacco: Never Smokeless Tobacco: Never Alcohol Use Standard Drinks/Week Comments Never 0 (1 standard drink = 0.6 oz pur e alcohol) Area Deprivation Index Answer Date Satish rded National Score (1-100), lower number is lower ri sk 76 11/18/2022 State Score (1-10), lower number is lower risk 6 11/18/2022 Data from: https://www.neigh marihoodatrosa.medicine.[facility].edu/. Last address used for calculation 24 [...] 8:30 AM EDT Appointment Molecular Imaging [address] [id number] [place] GASTRIC EMPTYING SOLID documented as of this encounter Visit Diagnoses Not on filedocumented in this encounter Care Teams Dimension Warehouse Supervisor Relationship Specialty Start Date End Date Linnea Escalante PA-C [address] [place] [address] PCP - General Family Medicine 02/03/23 [place] [address] [place] [place] [id number] Specialty Faith Doctor Hematology/Oncology 02/10/23 documented as of this encounter
--- OUTSIDE RECORDS SUMMARY | 2024-09-16 21:54 | XMS_ITS | Encounter Summary ---
Author Organization [facility] Address [address] [place] [address] Care Team Providers Care Furnace Loader Name Role Phone Linnea Escalante Unavailable [phone] Nickolas Isaacs MD Primary Care Provider [phone] Linnea Escalante Unavailable [phone] Encounter Details Date Type Department Care Team (Late st Contact Info) Description 11/17/2022 Clinisync Result Encounter [facility] External Department Unsolicited Rafael Keane, DO [address] [place] [address] Social History Tobacco Use Types Packs/Day Years Used Date Smoking Tobacco: Never Smokeless Tobacco: Never Alcohol Use Standard Drinks/Week Comments Yes 0 (1 standard drink = 0.6 oz pur e alcohol) Caffeine: none Humiliation, Afraid, Rape, and Kick questionnair e [...] often do you attend chur ch or sabianism services? 1 to 4 times per year 08/02/2022 Do you belong to any clubs o r organizations such as yazidism groups, unions, fraternal or athletic groups, or [...] medical care, and heating? Somewhat hard 08/01/2022 [facility] Occupat ional Health - Occupational Stress [...] to sleep or slept in a senior living (including now)? No 08/01/2022 Comments No Sex [...] suspected to have Coronavirus/COVID-19? No / Unsure 11/17/2022 12:41 PM EDT documented as of this encounter Plan of Treatment Upcoming Encounters Date Type Department Care Team (Late st Contact Info) Description 10/23/2024 3:00 PM EDT Office Visit [facility] [address] [place] [address] Rafael Keane, DO [address] [place] [address] documented as of this encounter Procedures Procedure Name Priority Date/Time Associated Diagnosis Comments US PELVIS W/ TRANSVAGINAL 11/17/2022 3:41 PM EDT documented in this encounter Results * US PELVIS W/ TRANSVAGINAL (11/17/2022 3:41 PM EDT) Anatomical Region Laterality Modality Other 11/17/2022 3:41 PM EDT Narrative 11/17/2022 3:41 [place] [address] Ultrasound Report Signed Patient: ADINA MARTINEZ MR#: [id number] : 1995 Acct:[id number] Age/Sex: 27 / F ADM Date: 11/17/22 Loc: US Attending Dr: Rafael Keane D.O. Ordering Physician: Rafael Keane D.O. Date of Service: 11/17/22 Procedure(s): US pelvis w/ transvaginal Accession Number(s): [id number] cc: Rafael Keane D.O.; Physician,Non-Staff [place] [place] [id number] Patient Name: ADINA MARTINEZ MRN: [id number] date: 1995 Sex: F Assigned Patient Location: US Current Patient Location: US Accession/Order Number: [id number] Exam Date: 11/17/2022 14:33 Report Date: 11/17/2022 15:41 At the request of: RAFAEL KEANE Procedure: US pelvis w/ transvaginal EXAM: US pelvis w/ transvaginal HISTORY: PELVIC PAIN COMPARISON: Pelvic ultrasound 11/12/2020. TECHNIQUE: Real-time transabdominal and transvaginal imaging of the pelvis. Findings: Evaluation is limited due to patient's body habitus. The uterus measures 8.4 x 5.0 x 6.6 cm. Unremarkable parenchymal echotexture. No intrauterine mass. The endometrium is 0.9 cm thick. No fluid within the endometrial canal. The right ovary is not visualized due to overlying bowel gas. The left ovary measures 2.0 x 1.4 x 2.9 cm and is unremarkable.Blood flow is identified in the left ovary. No adnexal mass or free pelvic fluid. US/US pelvis w/ transvaginal IMPRESSION: 1. Nonvisualization of the right ovary. Otherwise, unremarkable pelvic ultrasound for age. Electronically authenticated by: STEPHANIE DAMON Date: 11/17/2022 15:41 Dictated By: Stephanie Damon M.D. Signed By: 11/17/22 1544 DD/ 1541 TD/TT: Visual Merchandising Associate: Procedure Note Radiology, Radiologist, MD - 12/02/2022 [place] [address] Ultrasound Report Signed Patient: ADINA MARTINEZMR#: [id number] : 1995Acct:[id number] Age/Sex: 27 / FADM Date: 11/17/22 Loc: US Attending Dr: Rafael Keane D.O. Ordering Physician: Rafael Keane D.O. Date of Service: 11/17/22 Procedure(s): US pelvis w/ transvaginal Accession Number(s): [id number] cc: Rafael Keane D.O.; Physician,Non-Staff [place] [facility] [place] [address] Patient Name: ADINA MARTINEZ MRN: [id number] date: 1995 Sex: F Assigned Patient Location: US Current Patient Location: US Accession/Order Number: [id number] Exam Date: 11/17/2022 14:33 Report Date: 11/17/2022 15:41 At the request of: RAFAEL KEANE Procedure: US pelvis w/ transvaginal EXAM: US pelvis w/ transvaginal HISTORY: PELVIC PAIN COMPARISON: Pelvic ultrasound 11/12/2020. TECHNIQUE: Real-time transabdominal and transvaginal imaging of thepelvis. Findings: Evaluation is limited due to patient's body habitus. The uterus measures 8.4 x 5.0 x 6.6 cm. Unremarkable parenchymalechotexture. No intrauterine mass. The endometrium is 0.9 cm thick. No fluid within the endometrial canal. The right ovary is not visualized due to overlying bowel gas. The leftovary measures 2.0 x 1.4 x 2.9 cm and is unremarkable.Blood flow is identifiedin the left ovary. No adnexal mass or free pelvic fluid. US/US pelvis w/ transvaginal IMPRESSION: 1. Nonvisualization of the right ovary. Otherwise, unremarkable pelvic ultrasound for age. Electronically authenticated by: STEPHANIE DAMON Date: 11/17/2022 15:41 Dictated By: Stephanie Damon M.D. Signed By:11/17/22 1544 DD/ 1541 TD/TT: Visual Merchandising Associate: us Rafael Diya DO [facility] Final Result documented in this encounter Visit Diagnoses Not on filedocumented in this encounter Care Teams Furnace Loader Relationship Specialty Start Date End Date Linnea Escalante PA [address] [place] [address] PCP - Medical [facility] 08/11/22 10/03/23 Nickolas Isaacs MD [address] [place] [address] PCP - General Family Medicine 09/28/22 Linnea Escalante PA [address] [place] [address] Physician Design Architect Family Medicine 09/28/22 documented as of this encounter
--- OUTSIDE RECORDS SUMMARY | 2024-09-16 21:54 | XMS_ITS | Encounter Summary ---
Author Organization [facility] Address [address] [place] [address] Phone Care Team Providers Care Collar Starcher Name Role Phone Linnea Escalante PA-C Primary Care Provider [phone] Encounter Details Date Type Department Care Team (Latest Contact Info) Description 09/12/2024 Travel Social History Tobacco Use Types Packs/Day [...] Description 05/06/2025 8:50 AM EST Office Visit [facility] [address] [facility] [address] [place] [id number] Quique Vargas MD [address] [place] [address] 2, [facility] [address] [place] [address] documented as of this encounter Visit Diagnoses Not on filedocumented in this encounter Additional Health Concerns Assessment Noted Time A fall risk assessment has been complete d for the patient 09/12/2024 8:50 AM EDT documented as of this encounter Care Teams Collar Starcher Relationship Specialty Start Date End Date Linnea Escalante PA-C [address] [place] [address] PCP - General Internal Medicine 04/16/24 documented as of this encounter
--- OUTSIDE RECORDS SUMMARY | 2024-09-16 21:54 | XMS_ITS | Clinical Summary ---
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 Radiologist, - 08/14/2024 [facility] Main [place] [address] [place] [address] CT Scan Report Signed Patient: Adina Rene PMR#: [id number] : 1995Acct:[id number] Age/Sex: 29 / FADM Date: 08/14/24 Loc: CT Room:Type: [facility] Attending Dr: Linnea Escalante PA-C, Copies [...] hydronephrosis. Prior cholecystectomy.[ GI: Small hiatal hernia. Ixzj-vz-sryzsuia retained stool within thecolon. Mild colonic diverticulosis. [...] Miller M.D. 08/14/2024 11:03 AM Dictation Location: [place] [address] Transcribed By: [facility] 08/14/24 1103 Dictated By: Meet Miller MD 08/14/24 1031 Signed By: <Electronically signed by Meet Miller MD in OV> 08/14/24 1103 us Linnea WEBSTER IMG CT PROCEDURES Final Res ult * Transthoracic echo (TTE) complete (07/10/2024 7:46 AM EDT) Anatomical Region Laterality Modality Ultrasound 07/10/2024 7:46 AM EDT Narrative 07/11/2024 7:44 AM EDT [address], [address] [address] TRANSTHORACIC ECHOCARDIOGRAM REPORT Patient Name: ADINASONY RENE Reading Physician: [id number] Aixa Vargas MD, [facility] Study Date: 07/10/2024 Ordering Provider: [id number] AIXA VARGAS MRN/PID: [id number] Fellow: Nurse: Date of /Age: 11 1995 / years Steam Hand: Marli Castro RDCS, T Gender Assigned at F Additional Staff: : Height: 172.72 cm Admit Date: Weight: 129.73 kg Admission Status: BSA / BMI: 2.38 m2 / 43.49 Department Location: [facility] kg/m2 [facility] Blood Pressure: 114 /82 mmHg Study Type: TRANSTHORACIC ECHO (TTE) COMPLETE Diagnosis/ICD: Syncope-R55 Indication: Tachycardia, Morbid Obesity, Hypothyroid CPT Codes: Echo Complete w Full Doppler-[id number] Study Detail: The following Echo studies were [...] (0.6-0.9m/s) AORTA: Asc Ao Diam 2.86 cm [id number] Aixa Vargas MD, [facility] Electronically signed on 07/11/2024 at 7:44:30 AM Final Procedure Note Radiology, Radiologist, - 07/11/[address], [address] [place] [address] TRANSTHORACIC ECHOCARDIOGRAM REPORT Patient Name: ADINA RENE Reading Physician: [id number] Peacock [facility] Study Date: 07/10/2024 Ordering Provider: [id number] VARGAS MRN/PID: [id number] Fellow: Nurse: Date of /Age: 11 1995 / 29 years Steam Hand: Sparkle BROCK RVT Gender Assigned at F Additional Staff: : Height: 172.72 cm Admit Date: Weight: 129.73 kg Admission Status: BSA / BMI: 2.38 m2 / 43.49 Department Location: [address] Blood Pressure: 114 /82 mmHg Study Type: TRANSTHORACIC ECHO (TTE) COMPLETE Diagnosis/ICD: Syncope-R55 Indication: Tachycardia, Morbid Obesity, Hypothyroid CPT Codes: Echo Complete w Full Doppler-[id number] Study Detail: The following Echo studies were performed: 2D, M-Mode,Doppler and color flow. PHYSICIAN INTERPRETATION: Left Ventricle: Left ventricular ejection fraction is normal, by visualestimate at 60-65%. There are no regional wall motion abnormalities. Theleft ventricular cavity size is normal. There is normal septal and normalposterior left ventricular wall thickness. Spectral Doppler shows a normalpattern of left ventricular diastolic filling. Left Atrium: The left atrial size is normal. Right Ventricle: The right ventricle is normal in size. There is normalright ventricular global systolic function. Right Atrium: The right atrial size is normal. Aortic Valve: The aortic valve is trileaflet. The aortic valvedimensionless index is 0.88. There is no evidence of aortic valveregurgitation. The peak instantaneous gradient of the aortic valve is 5mmHg. The mean gradient of the aortic valve is 3 mmHg. Mitral Valve: The mitral valve is normal in structure. The peakinstantaneous gradient of the mitral valve is 3 mmHg. There is no evidenceof mitral valve regurgitation. Tricuspid Valve: The tricuspid valve is structurally normal. No evidenceof tricuspid regurgitation. Pulmonic Valve: The pulmonic valve is structurally normal. There is noindication of pulmonic valve regurgitation. Pericardium: No pericardial effusion noted. Aorta: The aortic root is normal. Additional Comments: Normal Echocardiogram. In comparison to the previous echocardiogram(s): No previous studies areavailable for comparison. CONCLUSIONS: 1. Normal Echocardiogram. 2. Left ventricular ejection fraction is normal, by visual estimate at60-65%. 3. No previous studies are available for [...] (0.6-0.9m/s) AORTA: Asc Ao Diam 2.86 cm [id number] Aixa Vargas MD, [facility] Electronically signed on 07/11/2024 at 7:44:30 AM Final Generic External Data Provider CV ECHO PROCEDURE S Final Result * [facility] BACTERIA UR CULT (06/21/2024 2:54 PM EDT) [facility] BACTERIA UR CULT ORGANISM ID: 1 [id number] BACTERIA UR CULT >=100,000 CFU/ml Normal urogenital antwan [facility] 06/21/2024 2:54 PM EDT 06/21/2024 3:01 PM EDT Narrative [facility] - 06/22/2024 2:51 PM EDT Original Ordering Provider: CLIFFORD SCOTT Generic External Data Provider ESTELA F inal Result ESTELA [facility] [address] [place] [address] [facility] from Last 3 Months Insurance [employer] Care Teams Manager Concrete Relationship Specialty Start Date End Date Nickolas Isaacs MD [address] [place] [address] PCP - General Family Medicine 09/28/22 Linnea Escalante PA [address] [place] [address] Physician Plasma Processing Technician Family Medicine 09/28/22
--- OUTSIDE RECORDS SUMMARY | 2024-09-16 21:54 | XMS_ITS | Encounter Summary ---
Author Organization [facility] Address [address] [place] [address] Care Team Providers Care Assistant Program Director Name Role Phone Linnea Escalante Unavailable [phone] Nickolas Isaacs MD Primary Care Provider [phone] Linnea Escalante Unavailable [phone] Encounter Details Date Type Department Care Team (Late st Contact Info) Description 11/15/2022 Abstract [facility] [address] [place] [phone] Lizzie Garcia PA [address] [place], [place] [id number] Social History Tobacco Use Types Packs/Day Years [...] any clubs o r organizations such as religion groups, unions, fraternal or athletic groups, or [...] medical care, and heating? Somewhat hard 08/01/2022 [facility] [place] [facility] Occupat ional [facility] - Occupational Stress [...] place to sleep or slept in a care home (including now)? No 08/01/2022 Comments No Sex [...] EDT Office Visit [facility] [address] [place] [address] Db Keane, DO [address] [place], [place] [id number] documented as of this encounter Visit Diagnoses Not on filedocumented in this encounter Care Teams Assistant Program Director Relationship Specialty Start Date End Date Linnea Esclaante PA [address] [place] [address] PCP - Medical [employer] 08/11/22 10/03/23 Nickolas Isaacs MD [address] [place] [address] PCP - General Family Medicine 09/28/22 Linnea Escalante PA [address] [place] [address] Physician Metal Solderer Family Medicine 09/28/22 documented as of this encounter
--- OUTSIDE RECORDS SUMMARY | 2024-09-16 21:54 | XMS_ITS | Encounter Summary ---
Author Organization [facility] Address [address] [place] [address] Phone Care Team Providers Care Automotive Quality Manager Name Role Phone Linnea Escalante PA-C Primary Care Provider [phone] Encounter Details Date Type Department Care Team (Late st Contact Info) Description 12/06/2023 Scanned Document [facility] [address] [place] [phone] Scanning, Generic Provider Social History Tobacco Use [...] Description 05/06/2025 8:50 AM EST Office Visit [facility] [address] [phone] Quique Vargas MD [address] [facility] [address] [place] [address] documented as of this encounter Procedures Procedure Name Priority Date/Time Associated Diagnosis Comments OUTSIDE IMAGING SCAN 12/06/2023 documented in this encounter Results * OUTSIDE IMAGING SCAN (12/06/2023) Anatomical Region Laterality Modality Other Narrative 12/06/2023 Ordered by an unspecified provider. us Generic Provider Scanning OUTSIDE SCAN Final Result documented in this encounter Visit Diagnoses Not on filedocumented in this encounter Care Teams Automotive Quality Manager Relationship Specialty Start Date End Date Linnea Escalante, KADY [address] [place] [address] PCP - General Internal Medicine 04/16/24 documented as of this encounter
--- OUTSIDE RECORDS SUMMARY | 2024-09-16 21:54 | XMS_ITS | Clinical Summary ---
Author Organization [facility] Address [address] [place] [address] Care Team Providers Care Community Engagement Specialist Name Role Phone Linnea Escalante PA-C Primary Care Provider Maddi Ochoa RN Unavailable Allergies Active Allergy Reactions Criticality Noted Date Comments Bees Anaphylaxis 02/03/2023 Berries Hives 02/03/2023 raspberries Medications levothyroxine (SYNTHROID) 100 mcg tablet Take 100 mcg by mouth daily before breakfast. Active metFORMIN (GLUCOPHAGE) 500 mg tablet Take 500 mg by mouth daily with breakfast. Active Cholecalcifero l, Vitamin D3, (VITAMIN D) 25 mcg (1,000 unit) cap Take 1,000 Units by mouth once daily. Active albuterol-bude sonide HFA (AIRSUPRA) 90-80 mcg/actuation inhaler Inhale 2 puffs as instructed every 4 hours as needed. 05/31/[address] (PROTONIX) 40 mg tablet Take 1 tablet by mouth once daily. 90 tablet 08/30/19 25 025 Active omeprazole (PRILOSEC) 20 mg capsule Take 20 mg by mouth once daily. 04/19/19 25 025 Discontinued ondansetron (ZOFRAN) 4 mg tablet Take 4 mg by mouth three times a day as needed. 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 Anxiety disorder 08/02/2022 Acquired hypothyroidism 10/11/2019 Obesity (BMI 30-39.9) 01/30/2011 Encounters Date Type Department Care Team Description 09/05/2024 Get Medical Advice Gastroenterology [address] [place] [address] Irma Nava APRN.CNP GASTRIC EMPTYING STUDY 09/03/2024 Results Follow-Up Ambulatory Surgery [address] [place] [address] Gene Parson MD 08/29/2024 11:11 AM EDT Anesthesia Event Ambulatory Surgery [address] [place] [address] Cami Rivera APRN.CRNA Synk, Lacey, APRN.PANEL INSTRUMENT REPAIRER 08/29/2024 10:43 AM EDT - 08/29/2024 11:59 PM EDT Hospital Encounter Ambulatory Surgery [address] [place] [address] Gene Parson MD Nausea and vomiting, unspecified vomiting type [R11.2] Discharge Disposition: Home 08/29/2024 Travel 08/28/2024 Travel 08/28/2024 GI Preprocedure Call Ambulatory Surgery [address] [place] [address] Gene Parson MD 08/14/2024 Patient Msg [facility] [address] [place] [address] Provider, Ccf colon prep instructions 07/30/2024 8:50 AM EDT Office Visit Gastroenterology [address] [place] [address] Irma Nava APRN.CNP Nausea and vomiting, unspecified vomiting type (Primary Dx); Abdominal bloating; Epigastric pain; Dyspepsia; Unintentional weight loss 07/30/2024 Travel 07/23/2024 Travel 06/21/2024 2:39 PM EDT - 06/21/2024 8:20 PM EDT Emergency [facility] Emergency Department [address] [place] [address] Anaya Hagen DO Roth, Phuc Bernal DO, DPM stomach pain Discharge Disposition: Home 06/21/2024 Travel from Last 3 Months Social History Tobacco Use Types Packs/Day Years Used Date Smoking Tobacco: Never Smokeless Tobacco: Never Tobacco Cessation:Counseling Given: Not Answered Alcohol Use Standard Drinks/Week Comments Never 0 (1 standard drink = 0.6 oz pur e alcohol) Area Deprivation Index Answer Date Satish rded National Score (1-100), lower number is lower ri sk 76 11/18/2022 State Score (1-10), lower number is lower risk 6 11/18/2022 Data from: https://www.[facility]hoodatlas.medicine.[facility].edu/. Last address used for calculation [address] 11/18/2022 Comments Unknown Sex and Gender Information Value Date Recorded Sex Assigned at Female 01/12/2023 3:43 PM EDT Legal Sex Female 7:53 PM EDT Gender Identity Female 01/12/2023 3:43 PM EDT Sexual Orientation Straight 01/12/2023 3: 43 PM EDT Last Filed Vital Signs Vital Sign Reading Time Taken Comments Blood Pressure 128/77 08/29/2024 12:05 PM EDT Pulse 77 08/29/2024 12:05 PM EDT Temperature 36.8 C (98.2 F) 06/21/2024 2:35 PM EDT Respiratory Rate 16 08/29/2024 12:05 PM EDT Oxygen Saturation 99% 08/29/2024 12:05 PM EDT Inhaled Oxygen Concentration - - Weight 124.3 kg (274 lb) 08/29/2024 11:00 AM EDT Height 172.7 cm (5' 8 ) 08/29/2024 11:00 AM EDT Body Mass Index 41.66 08/29/2024 11:00 AM EDT Plan of Treatment Upcoming Encounters Date Type Department Care Team (Late st Contact Info) Description 09/24/2024 8:30 AM EDT Appointment Molecular Imaging [address] [place] [address] [place] GASTRIC EMPTYING SOLID Health Maintenance Due Date Last Done Comments DTaP,Tdap,Td Vaccine (6 - Tdap) 2006 06/30/2000, 04/24/1996, 1995, Additional history exists Annual PCP Team Chronic Dise ase Visit 2013 HIV Screening 2013 Hepatitis C Screening 2013 Cervical Cancer Screening 01/20/2016 Covid-19 Vaccine (4 - 2024-2 5 season) 2023 02/11/2021, 04/17/2020, 03/20/2020 Influenza Vaccine (#1) 2024 4, 11/12/2023, 12/08/2022, Additional history exists Hepatitis B Vaccine Completed 1995, 1995, 1995 Procedures Procedure Name Priority Date/Time Associated Diagnosis Comments COLONOSCOPY (THERAPEUTIC) Routine 08/29/2024 11:23 AM EDT COLONOSCOPY DIAGNOSTIC Routine 11:23 AM EDT Nausea and vomiting, unspecified vomiting type Abdominal bloating Epigastric pain SURGICAL PATHOLOGY Routine 08/29/2024 11 :16 AM EDT Nausea and vomiting, unspecified vomiting type Abdominal bloating Epigastric pain EGD - THERAPEUTIC, EUS, OR TUBE INTERVENTIONS Routine 08/29/2024 11:02 AM EDT EGD DIAGNOSTIC Routine 08/29/2024 11:02 AM EDT Nausea and vomiting, unspecified vomiting type PT ED DIGESTIVE DISEASE 07/31/2024 PT ED DIGESTIVE DISEASE 07/31/2024 PT ED PATIENT INFORMATION 07/09/2024 CT ABD/PEL W IVCON STAT 06/21/2024 6: 21 PM EDT CBC + DIFF STAT 06/21/2024 3:02 PM EDT LIPASE BLD STAT 06/21/2024 3:02 PM EDT MAGNESIUM BLD STAT 06/21/2024 3:02 PM EDT COMPREHENSIVE METABOLIC PANEL STAT 06/21/2024 3:02 PM EDT URINE CULTURE STAT 06/21/2024 2:54 PM EDT HCG QUAL UR STAT 06/21/2024 2:54 PM EDT URINALYSIS (WITH MICROSCOPIC) WITH CULTURE IF INDICATED STAT 06/21/2024 2:54 PM EDT from Last 3 Months Results * COLONOSCOPY DIAGNOSTIC (08/29/2024 11:23 AM EDT) Anatomical Region Laterality Modality Other 08/29/2024 11:2 3 AM EDT Narrative 09/09/2024 12:34 PM EDT [facility] Gastroenterology Gastrointestinal Endoscopy Patient Name: Adina Rene Procedure Date: 08/29/2024 11:23 AM Date of : 1995 Admit Type: Outpatient Age: 29 Room: [place] [address] Gender: Female Note Status: Manufacturing Operator Override Attending MD: Gene Parson MD, [id number] Procedure: Colonoscopy Indications: Generalized abdominal pain Providers: Gene Parson MD Patient Profile: This is a 29 year old female. Refer to note in patient chart for documentation of history and physical. Last Colonoscopy: none. The patient's first colonoscopy is today. Referring Physician: Irma Nava CNP (Referring MD), Linnea Escalante (Referring ) Medicines: Monitored Anesthesia Care Complications: No immediate [...] by the physician, the nurse and the drencher in the procedure room at 11:11. Mental [...] home (ambulatory). Procedure Code(s): --- Professional --- 37843, Colonoscopy, flexible; diagnostic, including collection of specimen(s) by brushing or washing, when performed (separate procedure) Diagnosis Code(s): --- Professional --- R10.84, Generalized abdominal pain CPT copyright 2020 [employer]. All rights reserved. The codes documented in this report are preliminary and upon company manager review may be revised to meet current compliance requirements. Scope In: 11:25:29 AM Scope Out: 11:38:57 AM MD Gene Sparks MD 08/29/2024 11:41:28 AM This report has been signed electronically by Gene Parson MD Number of Addenda: 0 Note Initiated On: 08/29/2024 11:23 AM Estimated Blood Loss: Estimated blood loss: none. Irma Nava APRN.CNP DIGESTIVE DISEASE Edited Re sult - Final * COLONOSCOPY (THERAPEUTIC) (08/29/2024 11:23 AM EDT) Anatomical Region Laterality Modality Other 08/29/2024 11:2 3 AM EDT Narrative 08/29/2024 11:43 AM EDT [facility] Gastroenterology Gastrointestinal Endoscopy Patient Name: Adina Rene Procedure Date: 08/29/2024 11:23 AM Date of : 1995 Admit Type: Outpatient Age: 29 Room: [facility]CLUDES [facility] 1 Gender: Female Note Status: Finalized Attending MD: Gene Parson MD, [id number] Procedure: Colonoscopy Indications: Generalized abdominal pain Providers: Gene Parson MD Patient Profile: This is a 29 [...] by the physician, the nurse and the drencher in the procedure room at 11:11. Mental [...] home (ambulatory). Procedure Code(s): --- Professional --- 17529, Colonoscopy, flexible; diagnostic, including collection of specimen(s) by brushing or washing, when performed (separate procedure) Diagnosis Code(s): --- Professional --- R10.84, Generalized abdominal pain CPT copyright 2020 [employer]. All rights reserved. The codes documented in this report are preliminary and upon company manager review may be revised to meet current compliance requirements. Scope In: 11:25:29 AM Scope Out: 11:38:57 AM MD Gene Sparks MD 08/29/2024 11:41:28 AM This report has been signed electronically by Gene Parson MD Number of Addenda: 0 Note Initiated On: 08/29/2024 11:23 AM Estimated Blood Loss: Estimated blood loss: none. Irma Pack PULP AND PAPER TESTER.AVIATION TECHNICAL SYSTEMS SPECIALIST DIGESTIVE DISEASE Final Res ult * SURGICAL PATHOLOGY (08/29/2024 11:16 AM EDT) Case Report Surgical Pathology Report Case: [id number] Authorizing Provider: Gene Parson MD Collected: 08/29/2024 11:16 AM Ordering Location: Ambulatory Surgery Received: 08/29/2024 08:14 PM Pathologist: Ed Pruett MD, PhD Specimens: A) - Small Bowel, Duodenum, Biopsy, r/o celiac B) - Stomach, Biopsy, r/o h. pylori C) - Esophagus, Biopsy, r/o eoe and barretts 08/30/2024 3:49 PM EDT [facility] FINAL DIAGNOSIS A. Duodenum, biopsy: - Duodenal mucosa with no significant diagnostic abnormality. B. Stomach, biopsy: - Reactive gastric antral and oxyntic mucosa with focal minimally active inflammation. - No evidence of H. pylori microorganisms on H&E sections. C. Esophagus, biopsy: - Reactive squamous mucosa and inflamed gastric cardia-type mucosa, negative for intestinal metaplasia. 08/30/2024 3:49 PM EDT [facility] at 1549 EDT Gross Description A. Small Bowel, Duodenum, Biopsy Received in [...] 2024 12:14 AM Gross examination performed at [facility], [address] [place] [address] 08/30/2024 3:49 PM EDT [facility] Performing Lab Diagnostic interpretation performed at: [facility], [address] [place] [address], [place] [address] CLIA# [id number] Escalator Constructor: Jose Heaton MD 08/30/2024 3:49 PM EDT [facility] Disclaimer Laboratory Developed Test (LDT) Disclaimer: Performance characteristics of immunohistochemica l, immunofluorescent, and chromogenic in-situ hybridization tests have been determined by the performing laboratory within [facility]'s [facility] Pathology and Laboratory Medicine Department ([facility], [facility], [facility], [facility], [facility], [facility], or [facility]) in a manner consistent with CLIA requirements. One or more of these tests may not have been cleared or approved by the FDA. [facility] is regulated under CLIA as qualified to perform high-complexity testing. These tests are used for clinical purposes. These should not be regarded as investigational or for research. Positive and negative controls stain appropriately. 08/30/2024 3:49 PM EDT [facility] Tissue SPECIMEN FROM ESOPHAGUS OBTAINED BY INCISIONAL BIOPSY / Unknown 08/29/2024 11:16 AM EDT 08/29/2024 8:14 PM EDT Tissue specimen (specimen) BIOPSY OF STOMACH / Unknown 08/29/2024 11:16 AM EDT 08/29/2024 8:14 PM EDT Tissue specimen (specimen) SPECIMEN FROM ESOPHAGUS OBTAINED BY INCISIONAL BIOPSY / Unknown 08/29/2024 11:16 AM EDT 08/29/2024 8:14 PM EDT Gene Parson MD SURGICAL PATHOLOGY Final Resu lt [facility] [address] [facility] [address] [place] [address], [place] * EGD DIAGNOSTIC (08/29/2024 11:02 AM EDT) Anatomical Region Laterality Modality Other 08/29/2024 11:0 2 AM EDT Narrative 09/09/2024 12:36 PM EDT [facility] Gastroenterology Gastrointestinal Endoscopy Patient Name: Adina Rene Procedure Date: 08/29/2024 11:02 AM Date of : 1995 Admit Type: Outpatient Age: 29 Room: [place] [address] Gender: Female Note Status: Manufacturing Operator Override Attending MD: Gene Parson MD, [id number] Procedure: Upper GI endoscopy Indications: Nausea with vomiting Providers: Gene Parson MD Patient Profile: This is a 29 [...] by the physician, the nurse and the drencher in the procedure room at 11:11. Mental [...] colonoscopy today. Procedure Code(s): --- Professional --- 87559, Esophagogastroduodenoscopy, flexible, transoral; with biopsy, single or multiple Diagnosis Code(s): --- Professional --- K21.00, Gastro-esophageal reflux disease with esophagitis, without bleeding R11.2, Nausea with vomiting, unspecified CPT copyright 2020 [employer]. All rights reserved. The codes documented in this report are preliminary and upon company manager review may be revised to meet current compliance requirements. Scope In: 11:15:53 AM Scope Out: 11:20:18 AM MD Gene Sparks MD 08/29/2024 11:23:44 AM This report has been signed electronically by Gene Parson MD Number of Addenda: 0 Note Initiated On: 08/29/2024 11:02 AM Estimated Blood Loss: Estimated blood loss: none. Irma Nava PULP AND PAPER TESTER.KATHE DIGESTIVE DISEASE Edited Re sult - Final * EGD - THERAPEUTIC, EUS, OR TUBE INTERVENTIONS (08/29/2024 11:02 AM EDT) Anatomical Region Laterality Modality Other 08/29/2024 11:0 2 AM EDT Narrative 08/29/2024 11:26 AM EDT [facility] Gastroenterology Gastrointestinal Endoscopy Patient Name: Adina Rene Procedure Date: 08/29/2024 11:02 AM Date of : 1995 Admit Type: Outpatient Age: 29 Room: [place] [address] Gender: Female Note Status: Finalized Attending MD: Gene Parson MD, [id number] Procedure: Upper GI endoscopy Indications: Nausea with vomiting Providers: Gene Parson MD Patient Profile: This is a 29 [...] by the physician, the nurse and the drencher in the procedure room at 11:11. Mental [...] colonoscopy today. Procedure Code(s): --- Professional --- 24200, Esophagogastroduodenoscopy, flexible, transoral; with biopsy, single or multiple Diagnosis Code(s): --- Professional --- K21.00, Gastro-esophageal reflux disease with esophagitis, without bleeding R11.2, Nausea with vomiting, unspecified CPT copyright 2020 [employer]. All rights reserved. The codes documented in this report are preliminary and upon company manager review may be revised to meet current compliance requirements. Scope In: 11:15:53 AM Scope Out: 11:20:18 AM MD Gene Sparks MD 08/29/2024 11:23:44 AM This report has been signed electronically by Gene Parson MD Number of Addenda: 0 Note Initiated On: 08/29/2024 11:02 AM Estimated Blood Loss: Estimated blood loss: none. us Irma Pack PULP AND PAPER TESTER.AVIATION TECHNICAL SYSTEMS SPECIALIST DIGESTIVE DISEASE Final Res ult * PT ED DIGESTIVE DISEASE (07/31/2024) Only the most recent of2 resultswithin the time period is included. 07/31/2024 Narrative [facility] - 07/31/2024 Provider BLADES your patient ADINA RENE started their Flakito on 07-31-2024 and completed it on 07-31-2024 [facility] program: UPPER GI ENDOSCOPY (EGD) Gene Parson MD [facility] Final Result Performing Organization Address City/[facility] Co de Phone Number [facility] * PT ED PATIENT INFORMATION (07/09/2024) 07/09/2024 Narrative [facility] - 07/15/2024 Provider PACK your patient ADINA RENE started their Flakito on 07-15-2024 and completed it on 07-15-2024 Flakito program: PATIENT SAFETY INSTRUCTIONS FOR HEALTHCARE SETTINGS us Irma Pack PULP AND PAPER TESTER.AVIATION TECHNICAL SYSTEMS SPECIALIST [facility] Final Resul t Performing Organization Address City/[facility] Co de Phone Number [facility] * CT ABD/PEL W IVCON (06/21/2024 6:21 PM EDT) Anatomical Region Laterality Modality Abdomen Computed Tomogra phy 06/21/2024 6:21 PM EDT Impressions 06/21/2024 7:42 PM EDT IMPRESSION: No acute findings in the abdomen or pelvis. Front Desk Admin: BRIT Transcribe Date/Time: Jun 21 2024 7:16P Dictated by : MUKUL CURTIS MD This examination was interpreted and the report reviewed and electronically signed by: JOVANY VALDEZ MD on Jun 21 2024 7:40PM EST Narrative 06/21/2024 7:42 PM EDT * * *Final Report* * * DATE OF EXAM: Jun 21 2024 6:21PM [facility] 0530 - CT ABD/PEL W IVCON [...] lobe granuloma. Localizer images: No additional findings. Procedure Note Provider, [facility] [place] - 06/21/2024 * * *Final Report* * * DATE OF EXAM: Jun 21 2024 6:21PM [facility] 0530 - CT ABD/PEL W IVCON [...] lobe granuloma. Localizer images: No additional findings. IMPRESSION IMPRESSION: No acute findings in the abdomen or pelvis. Front Desk Admin: BRIT Transcribe Date/Time: Jun 21 2024 7:16P Dictated by : MUKUL CURTIS MD This examination was interpreted and the report reviewed and electronically signed by: JOVANY VALDEZ MD on Jun 21 2024 7:40PM EST us Ruddy Zimmerman PA-C [facility] Final Resul t * MAGNESIUM (06/21/2024 3:02 PM EDT) [facility] Magnesium 2.1 1.7 - 2.3 mg/dL 06/21/2024 3:30 PM EDT [facility] Blood BLOOD SPECIMEN / Unknown Venipuncture / Unknown 06/21/2024 3:02 PM EDT 06/21/2024 3:09 PM EDT Lucy Hawkins MD LABORATORY Final Result Performing Organization Address City/[facility]/ZIP Co de Phone Number [facility] [address] [place] [address], [place] * LIPASE (06/21/2024 3:02 PM EDT) [facility] Lipase 28 16 - 61 U/L 06/21/2024 3:30 PM EDT [facility] Blood BLOOD SPECIMEN / Unknown Venipuncture / Unknown 06/21/2024 3:02 PM EDT 06/21/2024 3:09 PM EDT Lucy Hawkins MD LABORATORY Final Result [facility] [address] [place] [address], [place] * COMPREHENSIVE METABOLIC PANEL (06/21/2024 3:02 PM EDT) [facility] Protein, Total 7.8 6.3 - 8.0 g/dL 06/21/2024 3:30 PM EDT [facility] Albumin 4.8 3.9 - 4.9 g/dL 06/21/2024 3:30 PM EDT [facility] Calcium, Total 9.5 8.5 - 10.2 mg/dL 06/21/2024 3:30 PM EDT [facility] Bilirubin, Total 0.5 0.2 - 1.3 mg/dL 06/21/2024 3:30 PM EDT [facility] Alkaline Phosphatase 81 34 - 123 U/L 06/21/2024 3:30 PM EDT [facility] AST 27 13 - 35 U/L 06/21/2024 3:30 PM EDT [facility] ALT 31 7 - 38 U/L 06/21/2024 3:30 PM EDT [facility] Glucose 89 74 - 99 mg/dL 06/21/2024 3:30 PM EDT [facility] Comment: The [place] [employer] (ADA) provides guidance for cutoff [...] Standards of Medical Care in Diabetes 2016, [place] [employer]. Diabetes Care. 2016.39(Suppl 1). BUN 12 7 - 21 mg/dL 06/21/2024 3:30 PM EDT [facility] Creatinine 0.70 0.58 - 0.96 mg/dL 06/21/2024 3:30 PM T [facility] Sodium 138 136 - 144 mmol/L 06/21/2024 3:30 PM T [facility] Potassium 4.0 3.7 - 5.1 mmol/L 06/21/2024 3:30 PM T [facility] Chloride 103 98 - 107 mmol/L 06/21/2024 3:30 PM EDT [facility] CO2 23 22 - 30 mmol/L 06/21/2024 3:30 PM EDT [facility] Anion Gap 12 8 - 15 mmol/L 06/21/2024 3:30 PM EDT [facility] Estimated Glomerular Filtration Rate 120 >=60 mL/min/1.7 3m 06/21/2024 3:30 PM EDT [facility] Comment:Estimated Glomerular Filtration Rate (eGFR) is calculated using the 2020 CKD-EPI creatinine equation. This equation utilizes serum creatinine, sex, and age as parameters. The creatinine assay has traceable calibration to isotope dilution- mass spectrometry. Refer to KDIGO guidelines for clinical interpretation. In patients with unstable renal function, e.g. those with acute kidney injury, the eGFR may not accurately reflect actual GFR. Blood BLOOD SPECIMEN / Unknown Venipuncture / Unknown 06/21/2024 3:02 PM EDT 06/21/2024 3:09 PM EDT us Lucy Hawkins MD LABORATORY Final Result [facility] [address] [place] [address], * COMPLETE BLOOD COUNT AND DIFFERENTIAL (06/21/2024 3:02 PM EDT) WBC 7.86 3.70 - 11.00 k/uL 06/21/2024 3:16 PM EDT [facility] RBC 4.42 3.90 - 5.20 m/uL 06/21/2024 3:16 PM EDT [facility] Hemoglobin 12.4 11.5 - 15.5 g/dL 06/21/2024 3:16 PM EDT [facility] Hematocrit 38.2 36.0 - 46.0 % 06/21/2024 3:16 PM EDT [facility] MCV 86.4 80.0 - 100.0 fL 06/21/2024 3:16 PM EDT [facility] MCH 28.1 26.0 - 34.0 pg 06/21/2024 3:16 PM EDT [facility] MCHC 32.5 30.5 - 36.0 g/dL 06/21/2024 3:16 PM EDT [facility] RDW-CV 13.4 11.5 - 15.0 % 06/21/2024 3:16 PM EDT [facility] Platelet Count 338 150 - 400 k/uL 06/21/2024 3:16 PM EDT [facility] MPV 10.0 9.0 - 12.7 fL 06/21/2024 3:16 PM EDT [facility] Neutrophils % 66.0 % 06/21/2024 3:16 PM EDT [facility] Abs Neut 5.18 1.45 - 7.50 k/uL 06/21/2024 3:16 PM EDT [facility] Lymphocytes % 26.8 % 06/21/2024 3:16 PM EDT [facility] Abs Lymph 2.11 1.00 - 4.00 k/uL 06/21/2024 3:16 PM EDT [facility] Monocytes % 5.3 % 06/21/2024 3:16 PM EDT [facility] Abs Jasper 0.42 <0.87 k/uL 06/21/2024 3:16 PM EDT [facility] Eosinophils % 0.6 % 06/21/2024 3:16 PM EDT [facility] Abs Eosin 0.05 <0.46 k/uL 06/21/2024 3:16 PM EDT [facility] Basophils % 0.3 % 06/21/2024 3:16 PM EDT [facility] Abs Baso <0.03 <0.11 k/uL 06/21/2024 3:16 PM EDT [facility] Immature Granulocytes % 1.0 % 06/21/2024 3:16 PM EDT [facility] Abs Immature Gran 0.08 <0.10 k/uL 025 3:16 PM EDT [facility] NRBC 0.0 /100 WBC 06/21/2024 3:16 PM EDT [facility] Absolute nRBC <0.01 <0.01 k/uL 06/21/2024 3:16 PM EDT [facility] Diff Type Auto 06/21/2024 3:16 PM EDT [facility] Blood BLOOD SPECIMEN / Unknown Venipuncture / Unknown 06/21/2024 3:02 PM EDT 06/21/2024 3:09 PM EDT us Lucy Hawkins MD LABORATORY Final Result [facility] [address] [facility] [address], [place] * URINE CULTURE IF INDICATED (06/21/2024 2:54 PM EDT) Culture, Urine >=100,000 CFU/ml Normal urogenital antwan 06/22/2024 2:51 PM EDT [facility] Urine MID-STREAM URINE SPECIMEN / Unknown Non Blood / Unknown 06/21/2024 2:54 PM EDT 06/21/2024 3:01 PM EDT us Lucy Hawkins MD MICROBIOLOGY Final Result Performing Organization Address City/[facility] Co de Phone Number [facility] [address] [address], [place] * (ABNORMAL) URINALYSIS (WITH MICROSCOPIC) WITH CULTURE IF INDICATED (06/21/2024 2:54 PM EDT) Color Yellow Yellow 06/21/2024 3:42 PM EDT [facility] Clarity Cloudy(A) Clear 06/21/2024 3:42 PM EDT [facility] Glucose, Urine Negative Negative 06/21/2024 3:42 PM EDT [facility] Bilirubin, Urine Negative Negative 06/22/19 25 3:42 PM EDT [facility] Ketones, Urine Trace(A) Negative 06/21/2024 3:42 PM EDT [facility] Specific [place], Ur 1.026 1.005 - 1.030 06/21/2024 3:42 PM EDT [facility] Hemoglobin/Blood ,Ur 2+(A) Negative 06/21/2024 3:42 PM EDT [facility] pH, Urine 5.5 <8.5 06/21/2024 3:42 PM EDT [facility] Protein, Urine 1+(A) Negative 06/21/2024 3:42 PM EDT [facility] Urobilinogen 0.2 EU/dL 0.2-1.0 EU/dL 06/21/2024 3:42 PM EDT [facility] Nitrites Negative Negative 06/21/2024 3:42 PM EDT [facility] Leuk Esterase 1+(A) Negative 06/21/2024 3:42 PM EDT [facility] WBC, Urine 11-20 /HPF(A) 0-5 /HPF 06/21/2024 3:42 PM EDT [facility] RBC, Urine 3-5 /HPF(A) 0-2 /HPF 06/21/2024 3:42 PM EDT [facility] Bacteria uL >9,821(H) Negative uL 06/21/2024 3:42 PM EDT [facility] Squamous Epithelial Cells Many /HPF 06/21/2024 3:42 PM EDT [facility] Casts, Hyaline >10 /LPF(A) 0 /LPF 3:42 PM EDT [facility] Urine MID-STREAM URINE SPECIMEN / Unknown Non Blood / Unknown 06/21/2024 2:54 PM EDT 06/21/2024 3:01 PM EDT Narrative [facility] - 06/21/2024 3:42 PM EDT Rechecked by light microscopy Result rechecked This test was developed and its performance characteristics determined by [facility]'s Erick Jurado [facility] Pathology and Laboratory Medicine [place] ([facility]). It has not been cleared or approved by the FDA. [facility] is regulated under CLIA as qualified to perform high-complexity testing. This test is used for clinical purposes. It should not be regarded as investigational or for research. us Lucy Hawkins MD LABORATORY Final Result [facility] [address] [facility] Desk [address] [address], [place] * HCG, QUALITATIVE, URINE (06/21/2024 2:54 PM EDT) HCG Qualitative, Urine Negative Negative 06/21/2024 3:27 PM EDT [facility] Comment:This test is intende d to aid in the early detection of . Very dilute urine samples, as indicated by a low specific gravity, may not contain manufacturing sales representative levels of hCG. This test detects intact hCG only. This test does not reliably detect hCG degradation products, including free-beta subunit and beta-core fragment. Therefore, this test may show reduced reactivity in urine after 8 weeks gestation. A number of conditions other than , including trophoblastic disease and certain non-trophoblastic neoplasms cause elevated levels of hCG. As with any assay employing mouse antibodies, the possibility exists for interference by human anti-mouse antibodies (HAMA) in the specimen. The test provides a presumptive diagnosis for . 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
--- OUTSIDE RECORDS SUMMARY | 2024-09-16 21:55 | XMS_ITS | Clinical Summary ---
Author Organization [facility] Address [address] [place] [address] Phone Care Team Providers Care Customer Sales Consultant Name Role Phone Linnea Escalante PA-C Primary Care Provider [phone] Allergies No known active allergies Medications levothyroxine (Synthroid, Levoxyl) 112 mcg tablet Take 1 tablet (112 mcg) by mouth once daily in the morning. Take before meals. 04/18/2024 Active metFORMIN XR 500 mg 24 hr tablet Take 1 tablet (500 mg) by mouth once daily. 04/22/2024 Active omeprazole (PriLOSEC) [address] capsule Take 1 capsule (20 mg) by mouth once daily. 04/19/2024 07/14/19 26 Active metoprolol succinate XL (Toprol-XL) 50 mg 24 hr tabletIndication s:Postural orthostatic tachycardia syndrome (POTS) Take 1 tablet (50 mg) by mouth once daily. Do not crush or chew. 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 Hypothyroid 05/08/2024 Syncope 05/08/2024 Postural orthostatic tachycardia syndrome (POTS) 05/08/2024 Encounters Date Type Department Care Team Description 09/12/2024 9:00 AM EDT Office Visit [place] [address] [address] Aixa Vargas MD POTS (postural orthostatic tachycardia syndrome); Postural orthostatic tachycardia syndrome (POTS); Acquired hypothyroidism; Type 2 diabetes mellitus without complication, without long-term current use of insulin; Never smoked tobacco; BMI 40.0-44.9, adult (Multi) 09/12/2024 Travel 09/05/2024 Travel 08/28/2024 Orders Only [facility] [address] [place] [address] Nidia Hughes MD 08/28/2024 Scanned Document [facility] [address] [place] [phone] Scanning, Generic Provider 07/23/2024 Telephone [facility] [address] [facility] [address] [place] [phone] Aixa Vargas MD 07/10/2024 7:38 AM EDT - 07/10/2024 11:59 PM EDT Hospital Encounter [facility] [address] [facility] [address] [place] [address] Syncope, unspecified syncope type Discharge Disposition: Home 07/10/2024 Travel 07/03/2024 Travel from Last 3 Months Immunizations Immunization Administration Dates Next Due DTP 06/30/2000, 7,1995,1995,1995 Flu vaccine (IIV4), preserva tive free *Check age/dose* 12/08/2022 HPV, Unspecified 10/31/2007 Hepatitis B vaccine, 19 yrs and under (RECOMBIVAX, ENGERIX) 1995,1995,1995 HiB, unspecified 04/14/1996, 6,1995,1995 Influenza, seasonal, injectable 11/12/2023 MMR vaccine, subcutaneous (MMR II) 06/30/2000, Polio, Unspecified 06/30/2000, 6,1995,1995 Family History Medical History Relation Name Comments Hypertension Father Diabetes Mother Relation Name Status Comments Father Mother Social History Tobacco Use Types Packs/Day Years [...] on file Sexual Orientation Not on file Last Filed Vital Signs Vital Sign Reading [...] Mass Index 42.12 09/12/2024 8:51 AM EDT Plan of Treatment Upcoming Encounters Date Type Department Care Team (Late st Contact Info) Description 05/06/2025 8:50 AM EST Office Visit [facility] [address] [address] Aixa Vargas MD 703 [facility] 2, [facility] [address] [place] [address] Health Maintenance Due Date Last Done Comments Diabetes: Hemoglobin A1C 1995 Diabetes: Urine Protein Screening 1995 HIV Screening 1995 Lipid Panel 1995 TSH Level 1995 Diabetes: Retinopathy Screening 2005 DTaP/Tdap/Td Vaccines (6 - Tdap) 2006 06/30/2000, 04/24/1996, 1995, Additional history exists Varicella Vaccines (1 of 2 - 13+ 2-dose series) 01/20/2008 HPV Vaccines (2 - 2-dose series) 05/02/2008 10/31/2007 Hepatitis C Screening 2013 Pneumococcal Vaccine: Pediatrics and At-Risk Adult Patients (1 of 2 - PCV) 2014 Cervical Cancer Screening 01/20/2016 HPV/Cotest 01/20/2016 Pap Smear 01/20/2016 COVID-19 Vaccine ( season) 2023 02/11/2021, 04/17/2020, 03/20/2020 Yearly Adult Physical 10/18/2024 10/18/2023 , 10/06/2023, 10/13/2022 Influenza Vaccine (#1) 2024 , 11/12/2023, 12/08/2022 Zoster Vaccines (1 of 2) 2045 Hepatitis B Vaccines Completed 1995, 1995, 1995 HIB Vaccines Completed 04/14/1996, 10/1995, 1995, Additional history exists IPV Vaccines Completed 06/30/2000, 10/1995, 1995, Additional history exists MMR Vaccines Completed 06/30/2000, 04/14/1996 Hepatitis A Vaccines Aged Out No long er eligible based on patient's age to complete this topic Meningococcal Vaccine Aged Out No angelica kahlil eligible based on patient's age to complete this topic Rotavirus Vaccines Aged Out No longer eligible based on patient's age to complete this topic Procedures Procedure Name Priority Date/Time Associated Diagnosis Comments TILT TABLE 08/28/2024 10:10 AM EDT TRANSTHORACIC ECHO (TTE) COMPLETE Routine 07/10/2024 8:21 AM EDT Syncope, unspecified syncope type from Last 3 Months Results * Tilt table (08/28/2024 10:10 AM EDT) 08/28/2024 10:1 0 AM EDT Narrative [facility] - 08/29/2024 5:18 PM EDT [place] [address] Cardiology Report Signed Patient: Adina Martinez MR#: [id number] : 1995 Acct:[id number] Age/Sex: 29 / F ADM Date: 08/28/24 Loc: Room: [facility] Attending Dr: Aixa Vargas MD Copies to: Nidia Hughes MD [...] continue her 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 Transcribed By: MARY JANE 08/28/24 1738 Dictated By: Nidia Hughes MD 08/28/24 1010 Signed By: <Electronically signed by MD Nidia Hughes> 08/29/24 1718 us Nidia Hughes MD CV CARDIAC SERVICES PROCED URES Final Result [facility] [address] [place] [address], [place] * TRANSTHORACIC ECHO (TTE) COMPLETE (07/10/2024 8:21 AM EDT) AV mn grad 3 mmHg [facility] AV pk praful 1.11 m/s SYNGO LV Biplane EF 52 % SYNGO LVOT diam 2.20 cm SYNGO MV E/A ratio 1.21 SYNGO MV avg E/e' ratio 6.12 SYNGO LA vol index A/L 19.3 ml/m2 SYNGO LV EF 63 % SYNGO RV free wall pk S' 13.08 cm/s SYNGO LVIDd 5.08 cm SYNGO Aortic Valve Area by Continuity of Peak Velocity 3.47 cm2 SYNGO AV pk grad 5 mmHg SYNGO Aortic Valve Area by Continuity of VTI 3.34 cm2 SYNGO LV A4C EF 52.5 SYNGO 07/10/2024 7:46 AM EDT Narrative [facility] - 07/11/2024 7:44 AM EDT [address], [address], [place] [address] TRANSTHORACIC ECHOCARDIOGRAM REPORT Patient Name: ADINA MARTINEZ Reading Physician: [id number] Aixa Vargas MD, [facility] Study Date: 07/10/2024 Ordering Provider: [id number] AIXA VARGAS MRN/PID: [id number] Fellow: Nurse: Date of /Age: 11 1995 / years Service Plumber: Marli Castro RD, RVT Gender Assigned at F Additional Staff: : Height: 172.72 cm Admit Date: Weight: 129.73 kg Admission Status: BSA / BMI: 2.38 m2 / 43.49 Department Location: [facility] kg/m2 [facility] Blood Pressure: 114 /82 mmHg Study Type: TRANSTHORACIC ECHO (TTE) COMPLETE Diagnosis/ICD: Syncope-R55 Indication: Tachycardia, Morbid Obesity, Hypothyroid CPT Codes: Echo Complete w Full Doppler-[id number] Study Detail: The following Echo studies were [...] (0.6-0.9m/s) AORTA: Asc Ao Diam 2.86 cm [id number] Aixa Vargas MD, [facility] Electronically signed on 07/11/2024 at 7:44:30 AM Final Procedure Note Aixa Vargas MD - 07/11/[address], [address] [address] TRANSTHORACIC ECHOCARDIOGRAM REPORT Patient Name: ADINA MARTINEZ Reading Physician: [id number] Peacock [facility] Study Date: 07/10/2024 Ordering Provider: [id number] M VARGAS MRN/PID: [id number] Fellow: Nurse: Date of /Age: 11 1995 / 29 years Service Plumber: Sparkle BROCKRVT Gender Assigned at F Additional Staff: : Height: 172.72 cm Admit Date: Weight: 129.73 kg Admission Status: BSA / BMI: 2.38 m2 / 43.49 Department Location: [address] Blood Pressure: 114 /82 mmHg Study Type: TRANSTHORACIC ECHO (TTE) COMPLETE Diagnosis/ICD: Syncope-R55 Indication: Tachycardia, Morbid Obesity, Hypothyroid CPT Codes: Echo Complete w Full Doppler-[id number] Study Detail: The following Echo studies were [...] (0.6-0.9m/s) AORTA: Asc Ao Diam 2.86 cm [id number] Aixa Vargas MD, [facility] Electronically signed on 07/11/2024 at 7:44:30 AM Final us Aixa Vargas MD CV ECHO PROCEDURES Final Res ult IBAN from Last 3 Months Insurance [facility] Care Teams Customer Sales Consultant Relationship Specialty Start Date End Date Linnea Escalante PA-C [address] [place] [address] PCP - General Internal Medicine 04/16/24
--- OUTSIDE RECORDS SUMMARY | 2024-09-16 21:55 | XMS_ITS | Encounter Summary ---
Author Organization [facility] Address [address] [place] [address] Care Team Providers Care Rejogger Name Role Phone Linnea Hackett Unavailable [phone] Nickolas Isaacs MD Primary Care Provider [phone] Linnea Hackett Unavailable [phone] Encounter Details Date Type Department Care Team (Late st Contact Info) Description 08/01/2023 Clinisync Result Encounter [facility] Department Unsolicited Linnea Hackett PA [address] [place], [place] [id number] Social History Tobacco Use Types Packs/Day Years [...] any clubs o r organizations such as catholic groups, unions, fraternal or athletic groups, or [...] medical care, and heating? Somewhat hard 08/01/2022 [facility] - Occupational Stress [...] EDT Office Visit [facility] [address] [place] [address] Db Keane, DO [address] [place], [place] [id number] documented as of this encounter Procedures Procedure Name Priority Date/Time Associated Diagnosis Comments CTA NECK 08/01/2023 6:54 AM EDT documented in this encounter Results * CTA NECK (08/01/2023 6:54 AM EDT) Anatomical Region Laterality Modality Other 08/01/2023 6:54 AM EDT Narrative 08/03/2023 2:23 PM EDT Exam Date/Time: 08/01/2023 07:26 EDT Reason for Exam: S10.95XA Report IMPRESSION: STABLE NECK CT FROM 01/04/2022. EXAM: CTA Neck DATE: 08/01/2023 6:54 AM CLINICAL HISTORY: S10.95XA. COMPARISON: Neck CT 01/04/2022 and head MRI 06/14/2023. TECHNIQUE: Spiral imaging was obtained of the neck after the uneventful infusion of approximately 100 mL of Isovue 370 contrast with CTA protocol. All CT scans at this facility use dose modulation, iterative reconstruction, and/or weight based dosing when appropriate to reduce radiation dose to as low as reasonably achievable. Luminal narrowings are estimated by NASCET criteria. Routine and volume rendered images were obtained on a three-dimensional workstation. Unless otherwise stated, incidental findings identified in this report do not require routine follow-up imaging. FINDINGS: Numerous very small radiodense foreign bodies are again noted predominantly within the superficial aspect of the right neck and supraclavicular fossa; some oh- along the anterior margin of the right internal jugular vein. Brain: Visualized portions of the brain appear unremarkable Face: Unremarkable. Oropharynx: No significant tonsillar enlargement. No peritonsillar abscess. Hypopharynx: Unremarkable. Larynx: Unremarkable. Normal epiglottis and aryepiglottic folds. Trachea: Unremarkable. Retropharyngeal space: Unremarkable. Submandibular/parotid glands: Unremarkable. Glands are normal in size. Thyroid: Unremarkable. Bones/joints: No acute fracture or dislocation. Paraspinous soft tissues: Unremarkable. Vasculature: No significant atherosclerotic plaquing, significant stenosis, or evidence of dissection. Lymph nodes: Small shotty appearing cervical lymph nodes similar to the prior study. No pathologically enlarged lymph nodes. Orbits: Unremarkable. Sinuses: Clear paranasal sinuses. Report Mastoid air cells and middle ear cavities: Clear. Lung apices: Visualized upper lung murillo are clear. Additional findings: Noncontributory. Ordering Provider: Linnea HACKETT FINAL REPORT Dictated: 08/03/2023 2:20 pm Anton Mcneill MD Signed (Electronic Signature): 08/03/2023 2:20 pm Signed by: Anton Mcneill MD Transcribed by: MIRIAM Technologist: JOE Technical Comments GFR (mL/min/1/73m2) age Contrast: Isovue 370 Contrast amount in ml's: 100 Procedure Note Radiology, Radiologist, - 08/03/2023 Exam Date/Time: 08/01/2023 07:26 EDT Reason for Exam: S10.95XA Report IMPRESSION: STABLE NECK CT FROM 01/04/2022. EXAM: CTA Neck DATE: 08/01/2023 6:54 AM CLINICAL HISTORY: S10.95XA. COMPARISON: Neck CT 01/04/2022 and head MRI 06/14/2023. TECHNIQUE: Spiral imaging was obtained of the neck after the uneventfulinfusion of approximately 100 mL of Isovue 370 contrast with CTA protocol. All CT scans at this facility use dose modulation, iterativereconstruction, and/or weight based dosing when appropriate to reduce radiation dose to as low asreasonably achievable. Luminal narrowings are estimated by NASCET criteria. Routine and volumerendered images were obtained on a three-dimensional workstation. Unless otherwise stated, incidental findings identified in this report donot require routine follow-up imaging. FINDINGS: Numerous very small radiodense foreign bodies are again notedpredominantly within the superficial aspect of the right neck and supraclavicular fossa; someoh-along the anterior margin of the right internal jugular vein. Brain: Visualized portions of the brain appear unremarkable Face: Unremarkable. Oropharynx: No significant tonsillar enlargement. No peritonsillarabscess. Hypopharynx: Unremarkable. Larynx: Unremarkable. Normal epiglottis and aryepiglottic folds. Trachea: Unremarkable. Retropharyngeal space: Unremarkable. Submandibular/parotid glands: Unremarkable. Glands are normal in size. Thyroid: Unremarkable. Bones/joints: No acute fracture or dislocation. Paraspinous soft tissues: Unremarkable. Vasculature: No significant atherosclerotic plaquing, significantstenosis, or evidence of dissection. Lymph nodes: Small shotty appearing cervical lymph nodes similar to theprior study. No pathologically enlarged lymph nodes. Orbits: Unremarkable. Sinuses: Clear paranasal sinuses. Report Mastoid air cells and middle ear cavities: Clear. Lung apices: Visualized upper lung murillo are clear. Additional findings: Noncontributory. Ordering Provider: Linnea HACKETT FINAL REPORT Dictated: 08/03/2023 2:20 pm Anton Mcneill MD Signed (Electronic Signature): 08/03/2023 2:20 pm Signed by: Anton Mcneill MD Transcribed by: MIRIAM Technologist: JOE Technical Comments GFR (mL/min/1/73m2) age Contrast: Isovue 370 Contrast amount in ml's: 100 us [facility] Final Res ult documented in this encounter Visit Diagnoses Not on filedocumented in this encounter Care Teams Rejogger Relationship Specialty Start Date End Date Linnea Hackett PA [address] [place] [address] PCP - Medical [employer] 08/11/22 10/03/23 Nickolas Isaacs MD [address] [place] [address] PCP - General Family Medicine 09/28/22 Linnea Hackett PA [address] [place] [address] Physician Metal Trimmer Family Medicine 09/28/22 documented as of this encounter
--- OUTSIDE RECORDS SUMMARY | 2024-09-16 21:55 | XMS_ITS | Encounter Summary ---
Author Organization [facility] Address [address] [place] [address] Care Team Providers Care Youth Liaison Officer Name Role Phone Linnea Escalante PA-C Primary Care Provider Maddi Ochoa RN Unavailable Source Comments In the event this information is protected by the Federal Confidentiality of Alcohol and Drug AbusePatient Records regulations: The Federal rules restrict any use of the information to criminally investigate or prosecute any alcohol or drug abuse patient.[facility] Encounter Details Date Type Department Care Team (Late st Contact Info) Description 12/27/2022 Lab Requisition [facility] [place] [address] Dequan Cortes MD [address] [place] [address] Person encountering health services to consult on behalf of another person Social History Tobacco Use Types Packs/Day Years Used Date Smoking Tobacco: Never Assessed Area Deprivation Index Answer Date Satish rded National Score (1-100), lower number is lower ri sk 76 11/18/2022 State Score (1-10), lower number is lower risk 6 11/18/2022 Data from: https://[email or web address] [email or web address]/. Last address used for calculation [address] [...] 09/24/2024 8:30 AM EDT Appointment Molecular Imaging [address] [place] [address] NM GASTRIC EMPTYING SOLID documented as of this encounter Procedures Procedure Name Priority Date/Time Associated Diagnosis Comments SURGICAL PATHOLOGY REFERENCE LAB CONSULT Routine 12/27/2022 10:33 AM EDT Person encountering health services to consult on behalf of another person FISH FOR MDM2 Routine 12/27/2022 10:33 AM EDT Person encountering health services to consult on behalf of another person SARCOMA FUSION NGS PANEL Routine 12/27/2022 10:33 AM EDT Person encountering health services to consult on behalf of another person documented in this encounter Results * SARCOMA FUSION NGS PANEL (12/27/2022 10:33 AM EDT) SARCOMA FUSION NGS PANL Sarcoma Fusion NGS Laboratory Accession Number: [id number] Case #: [id number] Block #: [id number] ([id number]) Sample Type: FFPET % Tumor: 95 Result: Not Detected No gene fusions were detected in the submitted specimen. Methodology: The Sarcoma and Solid Tumor Fusion Analysis by Next Generation Sequencing is a laboratory developed test (LDT) based on anchored multiplex polymerase chain reaction (PCR). Total nucleic acid extracted from the specimen was subjected to nested multiplex PCR enriching 59 gene targets. The amplicons were subjected to massively parallel sequencing with 150x2 cycle pair-end reads. An informatics pipeline (v6.2.7) was used for read alignment (genome build [id number]), fusion gene identification (if any), and annotation. Reporting criteria of a gene fusion are (i) a minimum of five unique reads spanning the fusion junction, (ii) at least three unique start sites are present among these unique reads, and (iii) at least 10% of reads surrounding the break point support the fusion event. Fusion genes that do not meet the above criteria may be reported if they have been previously documented. Limitations: Based on validation, this LDT delivered greater than 900,000 total reads. The test demonstrated 94.1% sensitivity and 75.0% specificity in fusion gene identification. The lower limit of detection is approximately 10% of tumor cells present in the submitted specimen. Fusions below 10% of tumor proportion may be reported at the discretion of the molecular pathology professional staff if the technical quality of the sequencing is sufficient at that location and the call is unequivocal. Reported variants include known disease associated gene fusions and unclear fusion variants with little or no literature support. A sample may be reported as quality not sufficient when the following quality metric circumstances are not met: (i) the number of unique RNA reads is <20% of total reads; (ii) the average number of RNA reads with unique start sites derived from the control gene-specific primer 2 (GSP2) is <10. Due to the labile nature of this LDT's analyte, RNA, false negative results may not be excluded. Fusions resulting from complex rearrangements may not be detected. Fusions which have not been directly validated (see asterisks in table below) may not be detected. Structural variants that do not lead to a chimeric fusion transcript will not be detected. This test is not designed to detect single nucleotide variants, insertions, deletions, copy number changes, and RNA transcript isoforms, with the exception of BCOR exon 15 internal tandem duplications (ITD). This test does not distinguish between somatic and inherited variants. The following genes and corresponding exons are interrogated in this LDT: Gene Transcript Exon(s) Covered ALK NM_004304 2,4,6,10,16-21,25, 26 BCOR NM_[id number] 3-8,12,14,15,ex15 ITD BCOR NM_017745 8 BRAF NM_004333 1-5,7-16,18 CAMTA1 NM_015215 3,8-10 CCNB3 NM_033031 2-6 CIC NM_015125 12,17-20 CRTC1 NM_015321 1-4 CSF1 NM_000757 5-8 CSF1 NM_172212 9 EPC1 NM_025209 9-11 ETV6 NM_001987 1-7 EWSR1 NM_005243 4-14 FOS NM_005252 4 FOSB NM_006732 1,2 FOXO1 NM_002015 1-3 FUS NM_004960 3-11,13,14 GLI1 NM_005269 4-7 HMGA2 NM_003483 1-5 JAZF1 NM_175061 2-4 MAML2 NM_032427 2,3 MEAF6 NM_001270875 4,5 MKL2 NM_014048 11-13 MYB* NM_001130173 7-9,11-16 NCOA1 NM_147223 12-15 NCOA2 NM_006540 11-16 NCOA3 NM_181659 2,13-16 NCOA3 NM_181659 20 NOTCH1* NM_017617 2,4,24-31 NOTCH2 NM_024408 5-7,24-29 NOTCH3 NM_000435 25-30 NR4A3 NM_173200 3,4 NR4A3 NM_006981 2 NTRK1 NM_002529 2,4,6,8,10-14 NTRK2 NM_006180 5,7,9,11-18 NTRK3 NM_001007156 15 NTRK3 NM_002530 4,7,10,12-16 NUTM1 NM_175741 2-4,6 PAX3 NM_181459 6-8 PAX7 NM_002584 6-8 PDGFB NM_002608 2,3 PDGFD NM_025208 5-7 PGR* NM_000926 1-3 PHF1 NM_024165 1,2,10-12 PLAG1 NM_002655 1-4 PRDM10 NM_199437 12,13 PRKD1* NM_002742 10-13 RAF1* NM_002880 4-12 RELA NM_021975 3,4,11 RET NM_020630 2,4,6,11,15,16 RET NM_020975 8-14 ROS1 NM_002944 2,4,7,31-38 SRF NM_003131 2-4 SS18 NM_001007559 2-6,8-11 SS18 NM_005637 2,3 STAT6 NM_001178078 1-7,15-20 TAF15 NM_139215 5-7 TCF12 NM_207036 4-6 TFE3 NM_006521 2-8 TFEB* NM_007162 1-4,9 TFG NM_006070 3-7 TRIM11 NM_145214 2,3 USP6 NM_004505 1-3 WWTR1 NM_015472 3,4 YAP1 NM_001130145 1-9 YWHAE NM_006761 5 *Fusions involving these genes have not been previously identified in this laboratory. Disclaimer: This test was developed and its performance characteristics determined by [facility]'s [facility] [place] ([facility]). It has not been cleared or approved by the FDA. [facility] is regulated under CLIA as certified to perform high- complexity testing. This test is used for clinical purposes. It should not be regarded as investigational or for research. Testing and interpretation performed at [facility], [address] [place] [address]. CLIA Number: [id number] References: 1) Song VENTURA, Maco AM, Imani DEWEYG, Sruthi D, van Kim T, Afshin Grider, et al. Molecular Analysis of Gene Fusions in Bone and Soft Tissue Tumors by Anchored Multiplex PCR-Based Targeted Next-Generation Sequencing. J Mol Diagn. 2018 Sep;20(5):653-663. 2) NCCN Guidelines, Soft Tissue Sarcoma, Version 2.2018. 3) Michel Grider, Edinson Grider, Solomon Gregory. Role of Next-Generation Sequencing as a Diagnostic Tool for the Evaluation of Bone and Soft- Tissue Tumors. Pathobiology. 2017; 84(6):323-338. As reviewed by Kristy Heart, PhD, [facility] 01/26/2023 12:30 PM EST ILLUMINA Near Page LIMS Blocks or Slides PARAFFIN EMBEDDED TISSUE BLOCK SPECIMEN / Unknown 12/27/2022 10:33 AM EDT 01/17/2023 10:03 AM EST us Dequan Cortes MD LABORATORY Final Re sult [facility]UMINA CLARITY LIMS [address] [facility] [address] [place] [address], [place] * FISH FOR MDM2 (12/27/2022 10:33 AM EDT) FISH FOR MDM2 FISH for MDM2 Amplification Laboratory Accession Number: [id number] Block/Part ID: [id number] ([id number]; 3) Case: [id number] Sample Type: FFPET Sample Description: RIGHT ABDOMINAL WALL, LIPOMA Received Date: 12/30/2022 Number of nuclei scored: 40 RESULT: Amplification of the MDM2 gene at 12q15 was not observed. Clinical and pathological correlation is recommended. INTERPRETATION: A majority of tumor cells displayed at least 1 centromeric chromosome 12 signal and 1 MDM2 signal. There is no amplification of MDM2. The following results were observed: MDM2: 2.35 CEP12: 2.40 MDM2/CEP12 Ratio: 0.98 Chromosomal variation: EUSOMIC Nomenclature: nuc vivienne([id number],MDM2)x2[ ] METHODOLOGY: Interphase fluorescence in situ hybridization (FISH) was performed on formalin-fixed paraffin embedded tissue sections using probes specific to the MDM2 gene at 12q15 (LSI MDM2) and to the centromere of chromosome 12 (CEP 12) ([employer], [place], [place]). DISCLAIMER: This test was developed and its performance characteristics determined by the [facility]'s Erick [facility] [place] (-[facility]). It has not been cleared or approved by the FDA. -[facility] is regulated under CLIA as qualified to perform high- complexity testing. This test is used for clinical purposes. It should not be regarded as investigational or for research. Interpretation performed at [facility], [address] [place], [place] [address]. CLIA Number: [id number] As reviewed by Justyna Fine MD, PhD 01/05/2023 5:02 PM EDT ILLUMINA CLARITY LIMS Blocks or Slides PARAFFIN EMBEDDED TISSUE BLOCK SPECIMEN / Unknown 12/27/2022 10:33 AM EDT 12/29/2022 11:41 AM EDT Dequan Cortes MD LABORATORY Final Re sult AMBROSIO CALVO [address] [facility] [address] [place] [address], * SURGICAL PATHOLOGY REFERENCE LAB CONSULT (12/27/2022 10:33 AM EDT) Case Report Surgical Pathology Report Case: [id number] Authorizing Provider: Dequan Cortes MD Collected: 12/27/2022 10:33 AM Ordering Location: [facility] Received: 12/27/2022 10:29 AM [facility] Laboratory Pathologist: Lori Butcher MD Specimen: SLIDE(S)/BLOCK(S), 12 SLIDES ( 3 BLOCKS 2,3,5) [id number] 01/26/2023 3:51 PM EST [facility] FINAL DIAGNOSIS Soft tissue, right abdominal wall, 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 See comment. 01/26/2023 3:51 PM [facility] at 1318 EDT Diagnosis Comment Many thanks for sending in consultation this excision specimen from the right abdominal wall of a 27-year-old female. Per report, this is a 8.2 cm mass. . Histologic examination reveals a circumscribed mesenchymal neoplasm composed of scattered foci of spindled cells with pale eosinophilic cytoplasm arranged in short fascicles. These foci are admixed with extensive zones of adipocytes and vacuolated cells highly reminiscent of lipoblasts. Examination of the spindle cell component at higher magnification reveals subtle cytologic atypia and scattered mitoses but no atypical mitotic figures. Immunohistochemical stains performed at the [facility] show that the neoplastic cells are negative for PLAG1, S100, SOX10, HMB45, SMA, desmin, CD34, CK, and STAT6. To further characterize this process, FISH was performed at the [facility] and was negative for MDM2 gene amplification. This is a very challenging case. Although the morphologic features raised the possibility of PEComa with extensive lipid rich PEC cells, the tumor cells lack expression of HMB45 and Melan-A. We also considered the possibility of the newly recognized atypical spindle cell lipomatous tumor; however the tumor cells are negative for CD34, S100 and desmin. While this does not exclude this diagnosis, it makes it less likely. Finally our differential included the possibility of atypical lipomatous tumor, but the young age of the patient and absence of MDM2 amplification does not fit with this possibility. Regrettably, we are finding definitive diagnosis extremely challenging. This may represent an unusual lipomatous neoplasm or potentially another mesenchymal tumor with adipocytic differentiation. Given the unusual nature of the case, our next generation sequencing assay will be performed with results and a refined diagnosis reported in an addendum report. Thank you again for the opportunity to provide an opinion in this case. Please call the Bone and Soft Tissue Pathology Consultation Service at [phone] with questions or if additional follow-up information becomes available regarding this patient. This case was reviewed in conjunction with the Bone and Soft Tissue Pathology fellow, Dolly Johnson MD, PhD. Laboratory Developed Test (LDT) Disclaimer: Performance characteristics of immunohistochemical, immunofluorescent and chromogenic in-situ hybridization tests have been determined by the performing laboratory within [facility] s [facility] [place] ([facility], [facility], [facility], [facility], [facility], [facility], [facility], or [facility]) in a manner consistent with CLIA requirements. One or more of these tests have not been cleared or approved by the FDA. [facility] is regulated under CLIA as qualified to perform high-complexity testing. These tests are used for clinical purposes. They should not be regarded as investigational or for research. Positive and negative controls stain appropriately. 01/26/2023 3:51 PM EST [facility] Clinical History CONSULT REQUESTED 01/26/2023 3:51 PM EST [facility] Performing Lab Diagnostic interpretation performed at [facility], [address] [place] [id number] CLIA# [id number] [employer] Press Operator: Jose Heaton M.D. 01/26/2023 3:51 PM EST [facility] Addendum The tumor cells are negative for ERG and CD31. The diagnosis remains unchanged. 01/26/2023 3:51 PM EST [facility] Addendum electronically signed by Lori Butcher MD on 01/17/2023 at 1557 EST Addendum A next-generation sequencing sarcoma fusion panel performed at the [facility] was negative for gene fusions. 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 Given the challenges in classification, the biologic behavior of this lesion is also uncertain. Complete surgical excision with negative margins and clinical follow-up monitoring for local recurrence is recommended. 01/26/2023 3:51 PM EST [facility] Addendum electronically signed by Lori Butcher MD on 01/26/2023 at 1551 EST Blocks or Slides PARAFFIN EMBEDDED TISSUE BLOCK SPECIMEN / Unknown 12/27/2022 10:33 AM EDT 12/27/2022 10:29 AM EDT us Deqaun Cortes MD SURGICAL PATHOLOGY Edite d Result - Final [facility] [address] [address], documented in this encounter Visit Diagnoses Diagnosis Person encountering health services to consult on behalf of another person Other person consulting on behalf of another person documented in this encounter Care Teams Youth Liaison Officer Relationship Specialty Start Date End Date Linnea Escalante PA-C [address] [place] [address] PCP - General Family Medicine 02/03/23 Maddi Ochoa, [place] [address] [place] [address] Specialty Slitter Processed Film Hematology/Oncology 02/10/23 documented as of this encounter
--- OUTSIDE RECORDS SUMMARY | 2024-09-16 21:55 | XMS_ITS | Encounter Summary ---
Author Organization [facility] Address [address] [place] [address] Care Team Providers Care Central Supply Manager Name Role Phone Linnea Escalante Unavailable [phone] Nickolas Isaacs MD Primary Care Provider [phone] Linnea Escalante Unavailable [phone] Encounter Details Date Type Department Care Team (Late st Contact Info) Description 07/17/2023 Orders Only [facility] [address] [facility] [address] [place] [address] Isi Witt MA Social History Tobacco Use Types Packs/Day Years [...] often do you attend chur ch or confucianism services? 1 to 4 times per year 08/02/2022 Do you belong to any clubs o r organizations such as temple groups, unions, fraternal or athletic groups, or [...] medical care, and heating? Somewhat hard 08/01/2022 [facility] [place] of Occupat ional Health - Occupational Stress [...] place to sleep or slept in a halfway (including now)? No 08/01/2022 Comments No Sex [...] EDT Office Visit [facility] [address] [place] [id number] Db Keane DO [address] [place] [address] documented as of this encounter Visit Diagnoses Not on filedocumented in this encounter Care Teams Central Supply Manager Relationship Specialty Start Date End Date Linnea Escalante PA [address] [place] [address] PCP - Medical [employer] 08/11/22 10/03/23 Nickolas Isaacs MD [address] [place] [address] PCP - General Family Medicine 09/28/22 Linnea Escalante PA [address] [place] [address] Physician Polls Or Surveys Interviewer Family Medicine 09/28/22 documented as of this encounter
--- NOTE | 2024-09-16 22:14 | ED_ITS ---
HPI - Abdominal Pain General Chief Complaint: Abdominal Pain Stated Complaint: ABDOMINAL PAIN Time Seen by Provider: 09/16/24 21:53 Source: patient Mode of arrival: walk-in History of Present Illness HPI narrative: The patient is a 29-year-old female presenting to the emergency department with pelvic pain. The pelvic pain has been present for 5 days. The patient indicates that the pain is always there and about a 4 out of 10 but then she has intermittent sharp pains the last 4 to 5 minutes and are 7-8 out of 10 when they occur. And they move around. Sometimes they are in the left pelvis sometimes are in the right pelvis and sometimes in the right upper quadrant. Patient has had a cholecystectomy. Patient states that she has lumbar back pain as well with symmetrical on both sides. There is no midline point tenderness. She has not had any heavy lifting, moving, twisting or repetitive movements. She is not having any bulging in her abdomen at all. She has constant nausea with her currently working her up for gastroparesis. It is not worse than normal. She is not having any diarrhea or constipation. No recent black, bloody, tarry stools. The patient states that her period this month was 5 days late which is unusual for her. In addition, it is very heavy. Patient has a known past medical history of PCOS. Patient has abnormal periods as a result. Patient's never been . Patient is concerned at this time that she may be . She did not take any test prior to coming in. She denies any dysuria, hematuria, urgency with urination although she does admit she has frequency. She took Tylenol this morning and then again at 4 PM. Related Data Home Medications ?Medication ?Instructions ?Recorded ?Confirmed levothyroxine 112 mcg tablet 112 mcg PO DAILY 09/16/24 09/16/24 metformin 500 mg tablet,extended 500 mg PO DAILY 09/1609/16/24 release 24 hr omeprazole 20 mg capsule,delayed 20 mg PO Q8H 09/16/24 09/16/24 release Previous Rx's ?Medication ?Instructions ?Recorded hydrocodone 5 mg-acetaminophen 325 1 tab PO Q4H PRN pa in #10 tabs 09/16/24 mg tablet naproxen 500 mg tablet (Naprosyn) 500 mg PO BID PRN pa in #20 tabs 09/16/24 Allergies Allergy/AdvReac Type Severity Reaction Status Date / Time bee venom protein (honey bee) Allergy Severe Anaphylaxis Verified 09/16/24 21:51 raspberry Allergy Mild Anaphylaxis Verified 09/16/24 21:51 Review of Systems ROS Narrative 10 Systems were reviewed, and unless not ed in the HPI, all other systems are reviewed, unremarkable, or noncontributory. 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 Prior to touching the patient, I asked for consent to examine the patient.? General: Alert and oriented, well nourished, mild distress. Eye: PERRL, EOMI, normal conjunctiva. HENT: Normocephalic, normal hearing, moist oral mucosa, no scleral icterus Neck: Supple, non-tender, no carotid bruits, no JVD, no lymphadenopathy. Lungs: Clear to auscultation and percussion, non-labored respiration. No rhonchi, rales, wheezing Heart: Normal rate, regular rhythm, no murmur, gallop or edema. Abdomen: Soft, tender in the pelvis diffusely, non-distended, normal bowel sounds, no masses. Musculoskeletal: Normal range of motion and strength, no tenderness or swelling. No midline point tenderness Skin: Skin is warm, dry and pink, no rashes or lesions. Neurologic: Awake, alert, and oriented X3, CN II-XII intact. Psychiatric: Cooperative, appropriate mood and affect.? Following the conclusion of the examination, I have washed my hands thoroughly after removing examination gloves. Constitutional Vital Signs, click to edit/add: Last Vital Signs Temp 98.0 F 09/16/24 21:53 Pulse 98 H 09/16/24 21:53 Resp 18 09/16/24 21:53 BP 139/87 09/16/24 21:53 Pulse Ox 97 09/16/24 21:53 O2 Del Method Room Air 09/16/24 21:53 Course Course Hospital Course: Patient presents to the emergency department concerned that she has an ectopic . She appears uncomfortable but nontoxic and in no acute distress. Working to give her Toradol 15 mg IM for analgesic management. Next, we are getting blood work form her were to get a CBC, BMP and a quantitative hCG. If her quantitative hCG is high we will call the field handyman and for evaluation for an ectopic . Reevaluation(s) Reevaluation #1: I went back in and spoke with the patient. I gave her all the results and information opportunity to ask questions. At this time I believe the patient is having evidence of dysfunctional uterine bleeding. I did tell her that we could treat this with antiinflammatories and I would give her a couple of pain medications for her discomfort. Patient was told if her symptoms worsen and change her quality or characteristic she needs to return to the ER soon as poss ible for further evaluation and treatment. Time: 23:37 Vital Signs Vital signs: Vital Signs Temperature 98.0 F 09/16/24 21:53 Pulse Rate 98 H 09/16/24 21:53 Respiratory Rate 18 09/16/24 21:53 Blood Pressure 139/87 09/16/24 21:53 Pulse Oximetry 97 09/16/24 21:53 Oxygen Delivery Method Room Air 09/16/24 21:53 Temperature 98.0 F 09/16/24 21:53 Pulse Rate 98 H 09/16/24 21:53 Respiratory Rate 18 09/16/24 21:53 Blood Pressure 139/87 09/16/24 21:53 Pulse Oximetry 97 09/16/24 21:53 Oxygen Delivery Method Room Air 09/16/24 21:53 MDM - Abdominal Pain MDM Narrative Medical decision making narrative: Patient is a 29-year-old female with a history of POTS, hypothyroidism, PCOS, and who presents to the emergency department with pelvic pain for 5 days. Unknown what makes worse. Nothing makes it better. Patient would like to be evaluated for /ectopic Differential Diagnosis Differential diagnosis: Likely abdominal pain, acute appendicitis, calculus of kidney, constipation, diverticulitis, endometriosis, gastroenteritis, small bowel obstruction and other (ectopic , ocarian cyst) Medical Records Attestation: I reviewed the patient's medical records. Lab Data Attestation: I reviewed the patient's lab results. Labs: Lab Results 09/16/24 09/16/24 Range/Units 22:24 22:35 WBC 11.3 H (4.0-11.0) 10^3/uL RBC 4.03 L (4.20-5.40) 10^6/uL Hgb 11.8 L (12.0-16.0) g/dL Hct 34.8 L (36.0-48.0) % MCV 86.4 (81.0-99.0) fL MCH 29.3 (26.7-34.0) pg MCHC 33.9 (29.9-35.2) g/dL RDW 13.2 (11.0-15.0) % Plt Count 338 (150-450) 10^3/uL MPV 9.6 (9.5-13.5) fL Neut % (Auto) 63.0 (43.0-75.0) % Lymph % (Auto) 29.9 (20.5-60.0) % Alpine % (Auto) 5.8 (1.7-12.0) % Eos % (Auto) 0.9 (0.9-7.0) % Baso % (Auto) 0.2 (0.2-2.0) % Neut # (Auto) 7.1 H (1.4-6.5) 10^3/uL Lymph # (Auto) 3.4 (1.2-3.8) 10^3/uL Alpine # (Auto) 0.7 (0.3-0.8) 10^3/uL Eos # (Auto) 0.1 (0.0-0.7) 10^3/uL Baso # (Auto) 0.0 (0.0-0.1) 10^3/uL Abs Immat Gran (auto) 0.02 (0.00-0.03) 10^3/uL Imm/Tot Granulo (auto) 0.2 (0.0-0.5) % Sodium 140 (136-145) mmol/L Potassium 3.6 (3.5-5.1) mmol/L Chloride 105 (98-107) mmol/L Carbon Dioxide 24.2 (21.0-32.0) mmol/L Anion Gap 14.4 BUN 13.0 (7.0-18.0) mg/dL Creatinine 0.80 (0.55-1.02) mg/dL Est GFR ( Amer) >60 (>=60 mL/min/1.73m^2) Est GFR (Non-Af Amer) >60 (>=60 mL/min/1.73m^2) BUN/Creatinine Ratio 16.2 Glucose 114 H (74-106) mg/dL Calcium 8.9 (8.5-10.1) mg/dL HCG, Quant <1 mIU/mL Urine Color Lt. yellow (YELLOW) Urine Clarity Clear (CLEAR) Urine pH 6.0 (5.0-9.0) Ur Specific Yoder 1.020 (1.005-1.025) Urine Protein Negative (NEG/TRACE) mg/dL Urine Glucose (UA) Negative (NEGATIVE) mg/dL Urine Ketones Negative (NEGATIVE) mg/dL Urine Occult Blood Moderate A (NEGATIVE) Urine Nitrite Negative (NEGATIVE) Urine Bilirubin Negative (NEGATIVE) Urine Urobilinogen 0.2 (0.2-1.0) EU/dL Ur Leukocyte Esterase Negative (NEGATIVE) Urine RBC 0-2 (0-2) #/HPF Urine WBC 2-5 A (NONE SEEN) #/HPF Ur Squamous Epith Cells Moderate A (NONE/RARE) #/LPF Urine Crystals None seen (None Seen) #/HPF Urine Bacteria Small A (NONE SEEN) #/HPF Urine Casts None seen (NONE SEEN) #/LPF Urine Mucus None seen (NONE SEEN) Ur Culture Indicated? Yes-[facility] [place] Discharge Plan Discharge Chief Complaint: Abdominal Pain Clinical Impression: DUB (dysfunctional uterine bleeding) Patient Disposition: Home, Self-Care Time of Disposition Decision: 23:37 Condition: Good Mode of Transportation: Private Vehicle Prescriptions / Home Meds: New naproxen [Naprosyn] 500 mg tablet 500 mg PO BID PRN (Reason: pain) Qty: 20 0RF hydrocodone-acetaminophen 5-325 mg tablet 1 tab PO Q4H PRN (Reason: pain) Qty: 10 0RF No Action omeprazole 20 mg capsule,delayed release(DR/EC) 20 mg PO Q8H metformin 500 mg tablet extended release 24 hr 500 mg PO DAILY levothyroxine 112 mcg tablet 112 mcg PO DAILY Print Language: Costa [place] Instructions: Abnormal (Dysfunctional) Uterine Bleeding (ED) Referrals: Physician,Non-Staff, [Physician] - 1 week Discharge Date/Time: 09/16/24 23:46
[2024-09-16 22:30] LABS: Hematocrit 34.8 % (36.0-48.0); Hemoglobin 11.8 g/dL (12.0-16.0); Immature Granulocytes Abs Auto 0.02 10^3/uL (0.00-0.03); Immature Granulocytes Pct Auto 0.2 % (0.0-0.5); Lymphocytes Absolute Auto 3.4 10^3/uL (1.2-3.8); Mean Corpuscular HGB Conc 33.9 g/dL (29.9-35.2); Mean Corpuscular Hemoglobin 29.3 pg (26.7-34.0); Mean Corpuscular Volume 86.4 fL (81.0-99.0); Platelet Count 338 10^3/uL (150-450); Red Blood Count 4.03 10^6/uL (4.20-5.40); White Blood Count 11.3 10^3/uL (4.0-11.0)
[2024-09-16] MEDS: KETOROLAC TROMETHAMINE 30 MG/ML VIAL 15 MG IM (22:31)
[2024-09-16 22:51] LABS: Anion Gap 14.4; Blood Urea Nitrogen 13.0 mg/dL (7.0-18.0); Calcium 8.9 mg/dL (8.5-10.1); Carbon Dioxide 24.2 mmol/L (21.0-32.0); Chloride 105 mmol/L (98-107); Estimated GFR (African America >60 (>=60 mL/min/1.73m^2); Estimated GFR (Non-African Ame >60 (>=60 mL/min/1.73m^2); Glucose 114 mg/dL (74-106); Potassium 3.6 mmol/L (3.5-5.1); Sodium 140 mmol/L (136-145)
[2024-09-16 23:22] LABS: Glucose Urine UA NEGATIVE (NEGATIVE)
[2024-09-16 23:31] LABS: Cast Seen? NONE SEEN #/LPF (NONE SEEN); Crystals Seen? None Seen #/HPF (None Seen); Urine Culture Indicated YES-FRMC
== END 2024-09-16 23:46 | disposition home or self-care (01) ==
PROVIDERS: Emergency Provider Emergency Medicine; PCP Physician Assistant
DX: N93.8 Other specified abnormal uterine and vaginal bleeding (principal); Z90.49 Acquired absence of other specified parts of digestive tract
CPT/HCPCS: 36415; 80048; 81001; 81003; 84702; 85025; 87086; 96372; 99284; J1885

== ENCOUNTER 2024-10-21 17:42 | Emergency (ER) | payer OTHER, SELFPAY ==
--- OUTSIDE RECORDS SUMMARY | 2024-10-14 12:20 | XMS_ITS | Encounter Summary ---
Author Organization [facility] Address [address] [facility] [place] [address] Care Team Providers Care Slot Editor Name Role Phone Nickolas Isaacs MD Primary Care Provider [phone] Linnea Escalante Unavailable [phone] Encounter Details Date Type Department Care Team (Late st Contact Info) Description 10/14/2024 12:20 PM EDT Office Visit [facility] [address] [place] [address] Linnea Escalante PA [address] [place] [address] Preventative health care (Primary Dx) Social History [...] How often do you attend chur or baptist services? 1 to 4 times per year 10/08/2024 Do you belong to any clubs o r organizations such as mu-ism groups, unions, fraternal or athletic groups, or [...] and heating? Somewhat hard 10/08/2024 [facility] of Occupat ional Health - Occupational [...] place to sleep or slept in a residential (including now)? No 08/01/2022 Housing Stability Vital Sign Answer Bryan e Recorded In the last 12 months, was t here a time when you were not able to pay the mortgage or rent on time? No 10/08/2024 In the past 12 months, how m any times have you moved where you were living? 1 10/08/2024 At any time in the past 12 m [facility], were you homeless or living in a residential (including now)? No 10/08/2024 Comments No Sex [...] which led to a consultation with a open die inspector. This specialist referred her to a motility expert at the [facility]. She underwent an EGD and colonoscopy, [...] a tilt table test performed by her client partner, who initially suspected orthostatic hypotension. However, based on the tilt table results and her heart rate over the past year, he now believes she may have POTS. During the tilt table test, her blood pressure was recorded as 70/40. She was prescribed metoprolol 100 mg twice daily, which has been beneficial. Her client partner also advised her to monitor for reactive [...] 2 puffs, Inhalation, Every 4 hours PRN Zjlurhupsrc-Jqdoksahs-Kodjcw (Trelegy Ellipta) 200-62.5-25 MCG/ACT aerosol powder 1 [...] blood sugar levels twice a day. - Cream Tester advised to watch for reactive hypoglycemia. Assessment/Plan Problem List Items Addressed This Visit Preventative health care - Primary Health Maintenance Due Topic Date Due Influenza Vaccine (1) 11/11/2024 documented in this encounter Plan of Treatment Upcoming Encounters Date Type Department Care Team (Late st Contact Info) Description 10/23/2024 3:00 PM EDT Office Visit [facility] [address] [place] [address] Diya, Db, [address] [place] [address] 12/20/2024 8:00 AM EDT Office Visit [facility] [address] [place] [address] Linnea Escalante PA [address] [place] [address] documented as of this encounter Visit Diagnoses Diagnosis Preventative health care- Primary Routine general medical examination at a health care facility documented in this encounter Care Teams Slot Editor Relationship Specialty Start Date End Date Nickolas Isaacs MD [address] [place] [address] PCP - General Family Medicine 09/28/22 Linnea Escalante PA [address] [place] [address] Physician Financial Assistance Specialist Family Medicine 09/28/22 documented as of this encounter
[2024-10-21 17:45] VITALS: BP 133/84; PULSE 83; TEMP 36.6; O2SAT 100; BMI 40.6
--- OUTSIDE RECORDS SUMMARY | 2024-10-21 17:48 | XMS_ITS | Encounter Summary ---
Author Organization [facility] Address [address] [place] [address] Care Team Providers Care Bi Architect Name Role Phone Linnea Escalante Unavailable [phone] Nickolas Isaacs MD Primary Care Provider [phone] Linnea Escalante Unavailable [phone] Encounter Details Date Type Department Care Team [...] How often do you attend chur or episcopal services? 1 to 4 times per year 08/02/2022 Do you belong to any clubs o r organizations such as confucianism groups, unions, fraternal or athletic groups, or [...] medical care, and heating? Somewhat hard 08/01/2022 [facility] of Occupat ional Health - Occupational Stress [...] place to sleep or slept in a usp (including now)? No 08/01/2022 Comments No Sex [...] 10/23/2024 3:00 PM EDT Office Visit JAIME DIAZ [address] [facility] [address] Db Keane DO [address] [place], [place] [id number] 12/20/2024 8:00 AM EDT Office Visit [facility] [address] [place] [address] Linnea Escalante PA [address] [place] [address] documented as of this encounter Procedures Procedure Name Priority Date/Time Associated Diagnosis Comments MRI ABDOMEN WO/W IVCON 02/23/2023 3:32 PM EST documented in this encounter Results * MRI ABDOMEN WO/W IVCON (02/23/2023 3:32 PM EST) Anatomical Region Laterality Modality Other 02/23/2023 3:32 PM EST Narrative 02/23/2023 4:30 PM EST * * *Final Report* * * DATE OF EXAM: Feb 23 2023 3:32PM [facility] 0689 - MRI ABDOMEN WO/W IVCON / [...] 23 2023 3:44P Dictated by: JESSICA BRIDGES, This examination was interpreted and the report reviewed and electronically signed by: PAULINE BAPTISTE MD on Feb 23 2023 4:28PM EST Thank you for allowing us to participate in the care of your patient. Should there be any questions regarding this interpretation, please call [phone]. If you are unable to reach us at the number above, please feel free to contact [facility] at [phone]. [id number]^[email or web address]^ACN Procedure Note Radiology, Radiologist, - 02/24/2023 * * *Final Report* * * DATE OF EXAM: Feb 23 2023 3:32PM [facility] 0689 - MRI ABDOMEN WO/W IVCON / [...] any questions regarding this interpretation, please call [phone]. If you are unable to reach us at the number above, please feel free to contact [facility] at [phone]. [id number]^[email or web address]^SI^ACN us Generic External Data Provider [facility] Final Result documented in this encounter Visit Diagnoses Not on filedocumented in this encounter Care Teams Bi Architect Relationship Specialty Start Date End Date Linnea Escalante PA [address] [place] [address] PCP - Medical [place] [employer] 08/11/22 10/03/23 Nickolas Isaacs MD [address] [place] [address] PCP - General Family Medicine 09/28/22 Linnea Escalante PA [address] [place] [address] Physician Car Usher Family Medicine 09/28/22 documented as of this encounter
--- OUTSIDE RECORDS SUMMARY | 2024-10-21 17:48 | XMS_ITS | Encounter Summary ---
Author Organization [facility] Address [address] [place] [address] Care Team Providers Care Asbestos Removal Worker Name Role Phone Linnea Escalante Unavailable [phone] Nickolas Isaacs MD Primary Care Provider [phone] Linnea Escalante Unavailable [phone] Encounter Details Date Type Department Care Team [...] medical care, and heating? Somewhat hard 08/01/2022 [facility] of Occupat ional Health - Occupational [...] PM EDT Office Visit JAIME DIAZ [address] [place] [phone] Db Keane DO [address] [facility] [address] [place], [place] [id number] 12/20/2024 8:00 AM EDT Office Visit [facility] [address] [place] [address] Linnea Escalante PA [address] [place] [address] documented as of this encounter Procedures Procedure [...] MRI scan report for the abdomen findings. Night Clerk (topogram) images: No additional findings. IMPRESSION: 1. [...] any questions regarding this interpretation, please call [phone]. If you are unable to reach us at the number above, please feel free to contact [facility] at [phone]. [id number]^AGFA_[email or web address]^SI^ACN Procedure Note Radiology, Radiologist, - 02/24/2023 * [...] MRI scan report for the abdomen findings. Night Clerk (topogram) images: No additional findings. IMPRESSION: 1. [...] any questions regarding this interpretation, please call [phone]. If you are unable to reach us at the number above, please feel free to contact [facility] at [phone]. [id number]^[email or web address]^SI^ACN us Generic External Data Provider IMG CT PROCEDURES Final Result documented in this encounter Visit Diagnoses Not on filedocumented in this encounter Care Teams Asbestos Removal Worker Relationship Specialty Start Date End Date Linnea Escalante PA [address] [place] [address] PCP - Medical [place] [employer] 08/11/22 10/03/23 Nickolas Isaacs MD [address] [place] [address] PCP - General Family Medicine 09/28/22 Linnea Escalante PA [address] [place] [address] Physician Grain And Yeast Plants Supervisor Family Medicine 09/28/22 documented as of this encounter
--- OUTSIDE RECORDS SUMMARY | 2024-10-21 17:48 | XMS_ITS | Encounter Summary ---
Author Organization [facility] Address [address] [place] [address] Care Team Providers Care Bladder Blower Name Role Phone Linnea Escalante Unavailable [phone] Nickolas Isaacs MD Primary Care Provider [phone] Linnea Escalante Unavailable [phone] Encounter Details Date Type Department Care Team (Late st Contact Info) Description 11/15/2022 Abstract [facility] [address] [place] [address] Lizzie Garcia PA [address] [facility] [address] [place], [facility] Social History Tobacco Use Types Packs/Day Years [...] often do you attend chur ch or taoist services? 1 to 4 times per year [...] and heating? Somewhat hard 08/01/2022 [facility] Occupat ional Health - [...] in a mcfp (including now)? No 08/01/2022 Comments No Sex [...] PM EDT Office Visit JAIME DIAZ [address] [place] [address] Db Keane DO [address] [facility] [place] [address] 12/20/2024 8:00 AM EDT Office Visit [facility] [address] [place] [address] Linnea Escalante PA [address] [place] [address] documented as of this encounter Visit Diagnoses Not on filedocumented in this encounter Care Teams Bladder Blower Relationship Specialty Start Date End Date Linnea Escalante PA [address] [place] [address] PCP - Medical [facility] 08/11/22 10/03/23 Nickolas Isaacs MD [address] [place] [address] PCP - General Family Medicine 09/28/22 Linnea Escalante PA [address] [place] [address] Physician Materials Management Manager Family Medicine 09/28/22 documented as of this encounter
--- OUTSIDE RECORDS SUMMARY | 2024-10-21 17:48 | XMS_ITS | Encounter Summary ---
Author Organization [facility] Address [address] [facility] [place] [place] [address] Care Team Providers Care Psychiatric Lpn Name Role Phone Nickolas Isaacs MD Primary Care Provider [phone] Linnea Escalante Unavailable [phone] Encounter Details Date Type Department Care Team (Late st Contact Info) Description 10/14/2024 Bamboo flowsheet [facility] [address] [place] [address] Linnea Escalante PA [address] [place] [address] Social History Tobacco Use Types Packs/Day Years [...] How often do you attend chur or rastafarian services? 1 to 4 times per year 10/08/2024 Do you belong to any clubs o r organizations such as presybeterian groups, unions, fraternal or athletic groups, or [...] medical care, and heating? Somewhat hard 10/08/2024 [facility] of Occupat ional Health - [...] place to sleep or slept in a group home (including now)? No 08/01/2022 Housing Stability Vital Sign Answer Bryan e Recorded In the last 12 months, was t here a time when you were not able to pay the mortgage or rent on time? No 10/08/2024 In the past 12 months, how m any times have you moved where you were living? 1 10/08/2024 At any time in the past 12 m [facility], were you homeless or living in a group home (including now)? No 10/08/2024 Comments No Sex [...] Description 10/23/2024 3:00 PM EDT Office Visit [facility] [address] [facility] [place] [address] Db Keane, DO [address] [facility] [address] [place], [place] [address] 12/20/2024 8:00 AM EDT Office Visit [facility] [address] [place] [address] Linnea Escalante PA [address] [place] [address] documented as of this encounter Visit Diagnoses Not on filedocumented in this encounter Care Teams Psychiatric Lpn Relationship Specialty Start Date End Date Nickolas Isaacs MD [address] [place] [address] PCP - General Family Medicine 09/28/22 Linnea Escalante PA [address] [place] [address] Physician Power Transformer Repairer Family Medicine 09/28/22 documented as of this encounter
--- OUTSIDE RECORDS SUMMARY | 2024-10-21 17:48 | XMS_ITS | Encounter Summary ---
Author Organization [facility] Address [address] [facility] [place] [address] Care Team Providers Care Strand Forming Machine Operator Name Role Phone Nickolas Isaacs MD Primary Care Provider [phone] Linnea Escalante Unavailable [phone] Encounter Details Date Type Department Care Team (Late st Contact Info) Description 10/10/2023 Orders Only [facility] [address] [place] [address] Ese Jones LPN [address] [place] [address] Social History Tobacco Use Types [...] do you attend chur or rastafarian services? More than 4 times per year [...] Patient declined 10/04/2023 [facility] of Occupat ionga Health - Occupational Stress Questionnaire Answer Date [...] a senior care (including now)? No 08/01/2022 Housing Stability Vital Sign Answer Bryan e Recorded In the last 12 months, was t here a time when you were not able to pay the mortgage or rent on time? Yes 10/04/2023 In the past 12 months, how m any times have you moved where you were living? 0 10/04/2023 At any time in the past 12 m [facility], were you homeless or living in a senior care (including now)? No 10/04/2023 Comments No Sex [...] 10/23/2024 3:00 PM EDT Office Visit [facility] D[facility] [address] [facility] [address] [address] Db Keane, DO [address] [place], [place] [address] 12/20/2024 8:00 AM EDT Office Visit [facility] [address] [place] [address] Linnea Escalante PA [address] [place] [address] documented as of this encounter Procedures Procedure [...] on filedocumented in this encounter Care Teams Strand Forming Machine Operator Relationship Specialty Start Date End Date Nickolas Isaacs MD [address] [place] [address] PCP - General Family Medicine 09/28/22 Linnea Escalante PA [address] [place] [address] Physician Asphalt Tile Floor Layer Family Medicine 09/28/22 documented as of this encounter
--- OUTSIDE RECORDS SUMMARY | 2024-10-21 17:49 | XMS_ITS | Encounter Summary ---
Author Organization [facility] Address [address] [place] [address] Care Team Providers Care 3D Modeler Name Role Phone Linnea Escalante PA-C Primary Care Provider Maddi Ochoa RN Unavailable Source Comments In the event this information is protected by the Federal Confidentiality of Alcohol and Drug AbusePatient Records regulations: The Federal rules restrict any use of the information to criminally investigate or prosecute any alcohol or drug abuse patient.[facility] Encounter Details Date Type Department Care Team (Late st Contact Info) Description 02/21/2023 [place] [address] Provider, Ccf Questionnaire Submission Social History Tobacco Use Types Packs/Day Years Used Date Smoking Tobacco: Never Assessed Area Deprivation Index Answer Date Satish rded National Score (1-100), lower number is lower ri sk 76 11/18/2022 State Score (1-10), lower number is lower risk 6 11/18/2022 Data from: https://www.neigh borhoodatlas.medicine.[facility]/. Last address used for calculation [address] [...] Care Team (Late st Contact Info) Description 10/31/2024 8:00 AM EDT Office Visit Vascular Surgery [address] [place] [address] Nausea and vomiting, unspecified vomiting type [R11.2] 11/05/2024 9:00 AM EDT Nurse Visit [facility] Gastroenterology [facility] [address] [facility] [address] [place], [place] [id number] [facility], Nurse [facility] [address] [facility] [address] [place], [place] [address] Nausea and vomiting, unspecified vomiting type [R11.2] documented as of this encounter Visit Diagnoses Not on filedocumented in this encounter Care Teams 3D Modeler Relationship Specialty Start Date End Date Linnea Escalante PA-C [address] [place] [address] PCP - General Family Medicine 02/03/23 [place] [address] [place] [address] Specialty Electric Train Driver Hematology/Oncology 02/10/23 documented as of this encounter
--- OUTSIDE RECORDS SUMMARY | 2024-10-21 17:49 | XMS_ITS | Encounter Summary ---
Author Organization [facility] Address [address] [place] [address] Care Team Providers Care Online Program Coordinator Name Role Phone Nickolas Isaacs MD Primary Care Provider [phone] Linnea Escalante Unavailable [phone] Encounter Details Date Type Department Care Team (Late st Contact Info) Description 08/14/2024 External Result Encounter [facility] External Department Unsolicited Linnea Escalante PA [address] [place] [address] Social History Tobacco Use Types Packs/Day Years [...] How often do you attend chur or mandaeism services? More than 4 times per year 10/04/2023 Do you belong to any clubs o r organizations such as buddhist groups, unions, fraternal or athletic groups, or [...] medical care, and heating? Patient declined [facility] Answer Date [...] place to sleep or slept in a alf (including now)? No 08/01/2022 Housing Stability Vital Sign Answer Bryan e Recorded In the last 12 months, was t here a time when you were not able to pay the mortgage or rent on time? Yes 10/04/2023 In the past 12 months, how m any times have you moved where you were living? 0 10/04/2023 At any time in the past 12 m [facility], were you homeless or living in a alf (including now)? No 10/04/2023 Comments No Sex [...] PM EDT Office Visit JAIME DIAZ [address] [facility] [place] [address] Db Keane DO [address] [facility] [place] [address] 12/20/2024 8:00 AM EDT Office Visit [facility] [address] [place] [address] Linnea Escalante PA [address] [place] [address] documented as of this encounter Procedures Procedure [...] Miller M.D. 08/14/2024 11:03 AM Dictation Location: [facility] Transcribed By: [facility] 08/14/24 1103 Dictated By: Meet Miller MD 08/14/24 1031 Signed By: <Electronically signed by Meet Miller MD in OV> 08/14/24 1103 Narrative 08/14/2024 11:05 AM EDT [facility] Main [address] [address] [address] Scan Report Signed Patient: Yolie Martinez MR#: [id number] : 1995 Acct:[id number] Age/Sex: 29 / F ADM Date: 08/14/24 Loc: CT Room: Type: [facility] Attending Dr: Linnea Escalante PA-C, Copies to: [...] hydronephrosis. Prior cholecystectomy.[ GI: Small hiatal hernia. Kdea-aw-wggxbjic retained stool within the colon. Mild colonic diverticulosis. Unremarkable appendix.[ Pelvis:[Bladder is collapsed. Uterus unremarkable. No adnexal mass.] Peritoneum/Retroperitoneum:No free air or free fluid. No adenopathy.[ Abd wall/Bones:Cutaneous markers right umbilical region. Likely areas of scarring noted right periumbilical region appearing decrease prior examination[no evidence of periumbilical mass identified. No suspicious osseous lesion. CT/CT abdomen pelvis wo con Procedure Note Radiology, Radiologist, - 09/19/2024 [facility] Main [place] [address] [place] [address] CT Scan Report Signed Patient: Yolie Martinez PMR#: [id number] : 1995Acct:[id number] Age/Sex: 29 FADM Date: 08/14/24 Loc: CT Room:Type: [facility] Attending Dr: Linnea Escalante PA-C, Copies to: [...] hydronephrosis. Prior cholecystectomy.[ GI: Small hiatal hernia. Rkba-un-smaevabh retained stool within thecolon. Mild colonic diverticulosis. [...] Miller M.D. 08/14/2024 11:03 AM Dictation Location: [place] [address] Transcribed By: [facility] 08/14/24 1103 Dictated By: Meet Miller MD 08/14/24 1031 Signed By: <Electronically signed by Meet Miller MD in OV> 08/14/24 [address] PROCEDURES Edited Re sult - Final documented in this encounter Visit Diagnoses Not on filedocumented in this encounter Care Teams Online Program Coordinator Relationship Specialty Start Date End Date Nickolas Isaacs MD [address] [place] [address] PCP - General Family Medicine 09/28/22 Linnea Escalante PA [address] [place] [address] Physician Compress Trucker Family Medicine 09/28/22 documented as of this encounter
--- OUTSIDE RECORDS SUMMARY | 2024-10-21 17:49 | XMS_ITS | Clinical Summary ---
Author Organization [facility] Address [address] [place] [address] Care Team Providers Care Transportation Dispatcher Name Role Phone Nickolas Isaacs MD Primary Care Provider [phone] Linnea Escalante Unavailable [phone] Allergies Active Allergy Reactions Criticality Noted Date Comments Bee Venom Hives,Anaphylaxis High 08/02/2022 Food Rash Low 02/14/2020 Pt allergic to berries Other Unknown 02/14/2020 Raspberry Rash,Anaphylaxis High 10/13/2022 Medications albuterol HFA 90 mcg/act inhaler Inhale 2 [...] (four) hours if needed (SOB/wheezing) 10.7 g 5 05/31/19 24 Active promethazine-dextr omethorphan (Phenergan-DM) 6.25-15 MG/5ML syrupIndications:V iral upper respiratory tract infection,Mild intermittent asthma without complication (HCC) Take 5 mL by mouth every 6 (six) hours if needed for cough 240 mL 01/08/20 24 Active levothyroxine (Synthroid) 112 MCG [...] in the morning. 04/19/19 25 026 Active pantoprazole (ProtoNix) 40 MG EC tablet Take 40 mg by mouth Daily Active cholecalciferol (Vitamin D-3) 25 MCG (1000 UT) capsule Take 2 capsules by mouth Daily 025 Discontin ued(Thera py completed ) topiramate (Topamax) 100 MG tabletIndications: Intractable chronic migraine without aura and without status migrainosus Take 1 tablet (100 mg) by mouth at bedtime 30 tablet 11 06/17/19 24 025 Discontin ued(Thera py completed ) Drospirenone (Slynd) 4 MG tabletIndications: Menorrhagia with regular cycle Take 4 mg by mouth Daily 28 tablet 11 10/18/19 24 025 Discontin ued(Thera py completed ) albuterol (2.5 MG/3ML) 0.083% nebulizer solutionIndication s:Viral upper respiratory tract infection,Mild intermittent asthma without complication (HCC) Take 3 mL (2.5 mg) by nebulization every 6 (six) hours if needed for wheezing 75 mL 11 01/08/20 24 025 Discontin ued(Thera py completed ) azithromycin (Zithromax) 250 MG tabletIndications: Viral upper respiratory tract infection,Mild intermittent asthma without complication (HCC) Take 2 tabs PO x 1 day then 1 tab PO daily x 4 days 6 tablet 01/08/20 24 025 Discontin ued(Thera py completed ) methylPREDNISolone (Medrol Dospak) 4 MG tabletsIndications :Non-recurrent acute serous otitis media of right ear Follow schedule on package instructions 21 tablet 01/08/20 24 025 Discontin ued(Thera py completed ) Ubrelvy 100 MG tablet TAKE 1 TABLET BY MOUTH DAILY NEEDED. MAY REPEAT in 2 hours. max of 2 TABLETS in 24 hours. 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 Boo on Monday Assessment & Plan (11/22/2022 2:21 PM EDT): Reviewed CT results with patient Will refer to Dr. Rajeev CRYSTALP for further eval Abdominal pain 09/29/2022 Assessment [...] Encounters Date Type Department Care Team Description 10/21/2024 Travel 10/14/2024 12:20 PM EDT Office Visit [facility] [address] [place] [address] Linnea Escalante PA Preventative health care (Primary Dx) 10/14/2024 [facility] [address] [place] [address] Linnea Escalante PA 10/14/2024 Bamboo flowsheet [facility] [address] [place] [address] Linnea Escalante PA 10/14/2024 Travel 10/08/2024 Travel 09/24/2024 Clinisync Result Encounter [facility] External Department Unsolicited Provider, Generic External Data 09/18/2024 Patient Outreach [facility] [address] [place] [address] Bella Escalante LSW 09/16/2024 Clinisync Result Encounter [facility] External Department Unsolicited Provider, Generic External Data 08/29/2024 Clinisync Result Encounter [facility] External Department Unsolicited Provider, Generic External Data 08/29/2024 Clinisync Result Encounter [facility] External Department Unsolicited Provider, Generic External Data 08/14/2024 External Result Encounter [facility] External Department Unsolicited Linnea Escalante PA from Last 3 Months Immunizations Immunization Administration [...] History Relation Name Comments Hypertension Father Leonardo Martinez Mental illness Mother Fernanda Kenyon Miscarriages / Stillbirths Mother Fernanda Kenyon Cancer Paternal Grandfather Leonardo Cancer Paternal Grandmother Kathie Relation Name Status Comments Brother 1 5 brothers Brother 2 Alive Brother 3 Alive Brother 4 Alive Brother 5 Alive Father Leonardo Martinez Alive Mother Fernanda [place] Alive Paternal Grandfather Leonardo Paternal Grandmother Kathie [...] How often do you attend chur or lutheran services? 1 to 4 times per year 10/08/2024 Do you belong to any clubs o r organizations such as caodaism groups, unions, fraternal or athletic groups, or [...] medical care, and heating? Somewhat hard 10/08/2024 [facility] - Occupational [...] place to sleep or slept in a nursing home (including now)? No 08/01/2022 Housing Stability [...] any time in the past 12 m [facility], were you homeless or living in a nursing home (including now)? No 10/08/2024 Comments No [...] Mass Index 42.42 10/14/2024 12:05 PM EDT Plan of Treatment Upcoming Encounters Date Type Department Care Team (Late st Contact Info) Description 10/23/2024 3:00 PM EDT Office Visit [facility] [address] [place] [address] Db [place], [address] [place] [address] 12/20/2024 8:00 AM EDT Office Visit [facility] [place] [facility] [address] [place] [phone] Linnea Escalante PA [address] [place] [address] Health Maintenance Due Date Last Done Comments Influenza Vaccine (#1) 2024 , 11/12/2023, 12/08/2022, Additional history exists Procedures Procedure Name Priority Date/Time Associated Diagnosis Comments NM GASTRIC EMPTYING SOLID 09/24/2024 12:45 PM EDT URINE CULTURE - [facility] Routine 09/16/2024 10:35 PM EDT COLONOSCOPY 08/29/2024 11:23 AM EDT TISS PATH BX REPORT Routine 08/29/2024 1 1:16 AM EDT UPPER GI ENDOSCOPY 08/29/2024 11 :[address] ABDOMEN PELVIS WO IV CONTRAST 08/14/2024 10:31 AM EDT from Last 3 Months Results * NM GASTRIC EMPTYING SOLID (09/24/2024 12:45 PM EDT) Anatomical Region Laterality Modality Other 09/24/2024 12:4 5 PM EDT Narrative 09/27/2024 11:53 AM EDT * * *Final Report* * * DATE OF EXAM: Sep 24 2024 12:45PM [facility] 0017 - NM GASTRIC EMPTYING SOLID / PROCEDURE REASON: Dyspepsia * * * * Physician Interpretation * * * * EXAM: SOLID MEAL GASTRIC EMPTYING STUDY HISTORY: Dyspepsia Assess for abnormal gastric emptying of a solid meal. TECHNIQUE: 0.86 millicuries of Tc-99m sulfur colloid was administered PO in a meal consisting of 4 oz Egg Beaters, 1 slices of toast, 1 oz jelly, and 8 oz water, consumed over 5 to 10 minutes. Planar anterior and posterior images of the gastric region were obtained at 0, 1, 2, and 4 hours after ingestion. RESULTS: Solid meal gastric retention values: * 85% retention at 1 hour (normal range, 37-90%; accelerated emptying defined as <30% at 1 hour) * 49% retention at 2 hours (normal range, 30-60%) * 2% retention at 4 hours (normal range, 0-10%) IMPRESSION: Normal gastric emptying rate for the solid meal. Railroad Brake Repairer: PSCB Transcribe Date/Time: Sep 27 2024 11:50A Dictated by : PIETRO JONES MD This examination was interpreted and the report reviewed and electronically signed by: PIETRO JONES MD on Sep 27 2024 11:51AM EST [id number] Procedure Note Radiology, Radiologist, - 09/27/2024 * * *Final Report* * * DATE OF EXAM: Sep 24 2024 12:45PM [facility] 0017 - NM GASTRIC EMPTYING SOLID / PROCEDURE REASON: Dyspepsia * * * * Physician Interpretation * * * * EXAM: SOLID MEAL GASTRIC EMPTYING STUDY HISTORY: Dyspepsia Assess for abnormal gastric emptying of a solid meal. TECHNIQUE: 0.86 millicuries of Tc-99m sulfur colloid was administered PO in a meal consisting of 4 oz Egg Beaters, 1 slices of toast, 1 oz jelly, and 8 oz water, consumed over 5 to 10 minutes. Planar anterior and posterior images of the gastric region were obtained at 0, 1, 2, and 4 hours after ingestion. RESULTS: Solid meal gastric retention values: * 85% retention at 1 hour (normal range, 37-90%; accelerated emptying defined as <30% at 1 hour) * 49% retention at 2 hours (normal range, 30-60%) * 2% retention at 4 hours (normal range, 0-10%) IMPRESSION: Normal gastric emptying rate for the solid meal. Railroad Brake Repairer[facility] Transcribe Date/Time: Sep 27 2024 11:50A Dictated by : PIETRO JONES MD This examination was interpreted and the report reviewed and electronically signed by: PIETRO JONES MD on Sep 27 2024 11:51AM EST [id number] Generic External Data Provider [facility] Final Result * URINE CULTURE - [facility] (09/16/2024 10:35 PM EDT) [facility] URINE CULTURE - [facility] Urine Culture - [facility] <9,000 colonies/ml mixed [facility] URINE CULTURE - [facility] bacterial skin contaminants [facility] URINE CULTURE - [facility] 2 Days [facility] URINE [facility]ULTURE - [facility] URINE CULTURE - [facility] Testing performed at [facility] URINE CULTURE - [facility] [address] [place] [address] [facility] 09/16/2024 10:3 5 PM EDT 09/16/2024 11:20 PM EDT Narrative [facility] - 09/19/2024 12:08 PM EDT Generic External Data Provider LAB BLOOD ORDERAB LES Final Result [facility] * COLONOSCOPY (08/29/2024 11:23 AM EDT) Anatomical Region Laterality Modality Other 08/29/2024 11:2 3 AM EDT Addenda Addendum by Radiology, RadiologistMD on 09/09/2024 12:34 PM EDT [facility] Gastrointestinal Endoscopy Patient Name: Yolie Martinez Procedure Date: 08/29/2024 11:23 AM Date of : 1995 Admit Type: Outpatient Age: 29 Room: [facility] 1 Gender: Female Note Status: Trustee Of Estate Override Attending MD: Bobo Slaughter MD, [id number] Procedure: Colonoscopy Indications: Generalized abdominal pain Providers: [...] by the physician, the nurse and the septic technician in the procedure room at 11:11. Mental [...] home (ambulatory). Procedure Code(s): --- Professional --- 60786, Colonoscopy, flexible; diagnostic, including collection of specimen(s) by brushing or washing, when performed (separate procedure) Diagnosis Code(s): --- Professional --- R10.84, Generalized abdominal pain CPT copyright 2020 [employer]. All rights reserved. The codes documented in this report are preliminary and upon fountain roller assembler review may be revised to meet current compliance requirements. Scope In: 11:25:29 AM Scope Out: 11:38:57 AM MD Bobo Sparks MD 08/29/2024 11:41:28 AM This report has been signed electronically by Bobo Slaughter MD Number of Addenda: 0 Note Initiated On: 08/29/2024 11:23 AM Estimated Blood Loss: Estimated blood loss: none. Narrative 08/29/2024 11:41 AM EDT [facility] Gastrointestinal Endoscopy Patient Name: Yolie Martinez Procedure Date: 08/29/2024 11:23 AM Date of : 1995 Admit Type: Outpatient Age: 29 Room: [facility] 1 Gender: Female Note Status: Finalized Attending MD: Bobo Slaughter MD, [id number] Procedure: Colonoscopy Indications: Generalized abdominal pain Providers: [...] by the physician, the nurse and the septic technician in the procedure room at 11:11. Mental [...] home (ambulatory). Procedure Code(s): --- Professional --- 32502, Colonoscopy, flexible; diagnostic, including collection of specimen(s) by brushing or washing, when performed (separate procedure) Diagnosis Code(s): --- Professional --- R10.84, Generalized abdominal pain CPT copyright 2020 [employer]. All rights reserved. The codes documented in this report are preliminary and upon fountain roller assembler review may be revised to meet current compliance requirements. Scope In: 11:25:29 AM Scope Out: 11:38:57 AM MD Bobo Sparks MD 08/29/2024 11:41:28 AM This report has been signed electronically by Bobo Slaughter MD Number of Addenda: 0 Note Initiated On: 08/29/2024 11:23 AM Estimated Blood Loss: Estimated blood loss: none. Procedure Note Radiology, Radiologist, - 09/09/2024 [facility] Gastrointestinal Endoscopy Patient Name: Yolie Martinez Procedure Date: 08/29/2024 11:23 AM Date of : 1995 Admit Type: Outpatient Age: 29 Room: [place] [address] Gender: Female Note Status: Finalized Attending MD: Bobo Slaughter MD, [id number] Procedure: Colonoscopy Indications: Generalized abdominal pain Providers: [...] by the physician, the nurse and the septic technician in the procedure room at 11:11. Mental [...] home (ambulatory). Procedure Code(s): --- Professional --- 68256, Colonoscopy, flexible; diagnostic, including collection of specimen(s) by brushing or washing, when performed (separate procedure) Diagnosis Code(s): --- Professional --- R10.84, Generalized abdominal pain CPT copyright 2020 [employer]. All rights reserved. The codes documented in this report are preliminary and upon fountain roller assembler review may be revised to meet current compliance requirements. Scope In: 11:25:29 AM Scope Out: 11:38:57 AM MD Bobo Sparks MD 08/29/2024 11:41:28 AM This report has been signed electronically by Bobo Slaughter MD Number of Addenda: 0 Note Initiated On: 08/29/2024 11:23 AM Estimated Blood Loss: Estimated blood loss: none. us Generic External Data Provider K121 Edited Result - Final * TISS PATH BX REPORT (08/29/2024 11:16 AM EDT) [facility] CASE REPORT [facility] Comment: Surgical Pathology Report Case: [id number] Authorizing Provider: Bobo Slaughter MD Collected: 08/29/2024 [...] 2024 12:14 AM Gross examination performed at [facility], [address] [place] [address] [facility] FINAL PERFORMING LAB [facility] Comment: Diagnostic interpretation performed at: [facility], [address] [place] [address], [place] [address] CLIA# [id number] Dispatch Machine Runner: Jose Heaton MD AP DISCLAIMER [facility] Comment: Laboratory Developed Test (LDT) Disclaimer: Performance characteristics of immunohistochemical, immunofluorescent, and chromogenic in-situ hybridization tests have been determined by the performing laboratory within [facility]'s Erick Rhiannon [facility] Pathology and Laboratory Medicine Department ([facility], [facility], [facility], [facility], [facility], [facility], or [facility]) in [...] 6 AM EDT 08/29/2024 8:14 PM EDT Chantelle PALMER - 08/30/2024 3:49 PM EDT Specimen Type: TISSUE SPECIMEN Ordering Facility: [facility] Address: [address] [place] [address] Original Ordering Provider: BOBO SLAUGHTER us Generic External Data Provider LAB BLOOD ORDERAB LES Final Result [facility] [address] [place], [place] [id number] * UPPER GI ENDOSCOPY (08/29/2024 11:02 AM EDT) Anatomical Region Laterality Modality Other 08/29/2024 11:0 2 AM EDT Addenda Addendum by Radiology, Radiologist, on 09/09/2024 12:36 PM EDT [facility] Gastrointestinal Endoscopy Patient Name: Yolie Martinez Procedure Date: 08/29/2024 11:02 AM Date of : 1995 Admit Type: Outpatient Age: 29 Room: [place] [address] Gender: Female Note Status: Trustee Of Estate Override Attending MD: Bobo Slaughter MD, [id number] Procedure: Upper GI endoscopy Indications: Nausea with [...] by the physician, the nurse and the septic technician in the procedure room at 11:11. Mental [...] colonoscopy today. Procedure Code(s): --- Professional --- 10876, Esophagogastroduodenoscopy, flexible, transoral; with biopsy, single or multiple Diagnosis Code(s): --- Professional --- K21.00, Gastro-esophageal reflux disease with esophagitis, without bleeding R11.2, Nausea with vomiting, unspecified CPT copyright 2020 [employer]. All rights reserved. The codes documented in this report are preliminary and upon fountain roller assembler review may be revised to meet current compliance requirements. Scope In: 11:15:53 AM Scope Out: 11:20:18 AM MD Bobo Sparks MD 08/29/2024 11:23:44 AM This report has been signed electronically by Bobo Slaughter MD Number of Addenda: 0 Note Initiated On: 08/29/2024 11:02 AM Estimated Blood Loss: Estimated blood loss: none. Narrative 08/29/2024 11:23 AM [facility]astroenterology Gastrointestinal Endoscopy Patient Name: oYlie Martinez Procedure Date: 08/29/2024 11:02 AM Date of : 1995 Admit Type: Outpatient Age: 29 Room: [place] [address] Gender: Female Note Status: Finalized Attending MD: Bobo Slaughter MD, [id number] Procedure: Upper GI endoscopy Indications: Nausea with [...] by the physician, the nurse and the septic technician in the procedure room at 11:11. Mental [...] colonoscopy today. Procedure Code(s): --- Professional --- 87270, Esophagogastroduodenoscopy, flexible, transoral; with biopsy, single or multiple Diagnosis Code(s): --- Professional --- K21.00, Gastro-esophageal reflux disease with esophagitis, without bleeding R11.2, Nausea with vomiting, unspecified CPT copyright 2020 [employer]. All rights reserved. The codes documented in this report are preliminary and upon fountain roller assembler review may be revised to meet current compliance requirements. Scope In: 11:15:53 AM Scope Out: 11:20:18 AM MD Bobo Sparks MD 08/29/2024 11:23:44 AM This report has been signed electronically by Bobo Slaughter MD Number of Addenda: 0 Note Initiated On: 08/29/2024 11:02 AM Estimated Blood Loss: Estimated blood loss: none. Procedure Note Radiology, Sam, - 09/09/2024 [facility] Gastrointestinal Endoscopy Patient Name: Yolie Martinez Procedure Date: 08/29/2024 11:02 AM Date of : 1995 Admit Type: Outpatient Age: 29 Room: [place] [address] Gender: Female Note Status: Finalized Attending MD: Bobo Slaughter MD, [id number] Procedure: Upper GI endoscopy Indications: Nausea with [...] by the physician, the nurse and the septic technician in the procedure room at 11:11. Mental [...] colonoscopy today. Procedure Code(s): --- Professional --- 67031, Esophagogastroduodenoscopy, flexible, transoral; with biopsy, single or multiple Diagnosis Code(s): --- Professional --- K21.00, Gastro-esophageal reflux disease with esophagitis, without bleeding R11.2, Nausea with vomiting, unspecified CPT copyright 2020 [employer]. All rights reserved. The codes documented in this report are preliminary and upon fountain roller assembler review may be revised to meet current compliance requirements. Scope In: 11:15:53 AM Scope Out: 11:20:18 AM MD Bobo Sparks MD 08/29/2024 11:23:44 AM This report has been signed electronically by Bobo Slaughter MD Number of Addenda: 0 Note Initiated On: 08/29/2024 11:02 AM Estimated Blood Loss: Estimated blood loss: none. us Generic External Data Provider [facility] Edited Result - Final * CT abdomen pelvis wo IV contrast (08/14/2024 10:31 AM EDT) Anatomical Region Laterality Modality Body, Pelvis, Abdomen Computed T omography 08/14/2024 10:3 1 AM EDT Impressions 08/14/2024 11:05 AM EDT No soft tissue mass at site of clinical concern. Impression dictated by: Meet Miller M.D. 08/14/2024 11:03 AM Dictation Location: [place] [address] Transcribed By: [facility] 08/14/24 1103 Dictated By: Meet Miller MD 08/14/24 1031 Signed By: <Electronically signed by Meet Miller MD in OV> 08/14/24 1103 Narrative 08/14/2024 11:05 AM EDT [facility] [place] [address] CT Scan Report Signed Patient: Yolie Martinez MR#: [id number] : 1995 Acct:[id number] Age/Sex: 29 / F ADM Date: 08/14/24 Loc: CT Room: Type: [facility] Attending Dr: Linnea Escalante PA-C, Copies to: [...] hydronephrosis. Prior cholecystectomy.[ GI: Small hiatal hernia. Japc-rb-vnrrsbtl retained stool within the colon. Mild colonic diverticulosis. Unremarkable appendix.[ Pelvis:[Bladder is collapsed. Uterus unremarkable. No adnexal mass.] Peritoneum/Retroperitoneum:No free air or free fluid. No adenopathy.[ Abd wall/Bones:Cutaneous markers right umbilical region. Likely areas of scarring noted right periumbilical region appearing decrease prior examination[no evidence of periumbilical mass identified. No suspicious osseous lesion. CT/CT abdomen pelvis wo con Procedure Note Radiology, Radiologist, MD - 09/19/2024 [facility] Main [place] [address] [place] [address] CT Scan Report Signed Patient: Yolie Martinez PMR#: [id number] : 1995Acct:[id number] Age/Sex: 29 / FADM Date: 08/14/24 Loc: CT Room:Type: [facility] Attending Dr: Linnea Escalante PA-C, Copies to: [...] hydronephrosis. Prior cholecystectomy.[ GI: Small hiatal hernia. Zjhz-bb-aukumazd retained stool within thecolon. Mild colonic diverticulosis. [...] Miller M.D. 08/14/2024 11:03 AM Dictation Location: [place] [address] Transcribed By: [facility] 08/14/24 1103 Dictated By: Meet Miller MD 08/14/24 1031 Signed By: <Electronically signed by Meet Miller MD in OV> 08/14/24 [address] PROCEDURES Edited Re sult - Final from Last 3 Months Insurance [employer] Member Subscriber Plan / Payer (Ef fective 2022-Present) Name:Yolie Martinez Relation to Subscriber:Self Name:Yolie Martinez Payer ID:Not on file Type:Not on file Address: [place] [phone] Care Teams Transportation Dispatcher Relationship Specialty Start Date End Date Nickolas Isaacs MD [address] [place] [address] PCP - General Family Medicine 09/28/22 Linnea Escalante PA [address] [place] [address] Physician Solar Energy Advisor Family Medicine 09/28/22
--- OUTSIDE RECORDS SUMMARY | 2024-10-21 17:49 | XMS_ITS | Encounter Summary ---
Author Organization [facility] Address [address] [facility] [place] [address] Care Team Providers Care Sleeping Room Cleaner Name Role Phone Linnea Escalante Unavailable [phone] Nickolas Isaacs MD Primary Care Provider [phone] Linnea Escalante Unavailable [phone] Encounter Details Date Type Department Care Team (Late st Contact Info) Description 12/27/2022 Abstract [facility] [address] [place] [address] Linnea Escalante PA [address] [place] [address] Social History Tobacco Use Types Packs/Day Years [...] often do you attend chur ch or temple services? 1 to 4 times per year 08/02/2022 Do you belong to any clubs o r organizations such as denominational groups, unions, fraternal or athletic groups, or [...] medical care, and heating? Somewhat hard 08/01/2022 [facility] of Occupat ional [facility] - Occupational Stress Questionnaire Answer Date Recorded [...] PM EDT Office Visit JAIME DIAZ [address] [place] [address] Db Keane DO [address] [facility] [place] [address] 12/20/2024 8:00 AM EDT Office Visit [facility] [place] [facility] [address] [place] [phone] Linnea Escalante PA [address] [place] [address] documented as of this encounter Visit Diagnoses Not on filedocumented in this encounter Care Teams Sleeping Room Cleaner Relationship Specialty Start Date End Date Linnea Escalante PA [address] [place] [address] PCP - Medical [place] [employer] 08/11/22 10/03/23 Nickolas Isaacs MD [address] [place] [address] PCP - General Family Medicine 09/28/22 Linnea Escalante PA [address] [place] [address] Physician Plastics Process Hand Family Medicine 09/28/22 documented as of this encounter
--- OUTSIDE RECORDS SUMMARY | 2024-10-21 17:49 | XMS_ITS | Encounter Summary ---
Author Organization [facility] Address [address] [place] [address] Care Team Providers Care Chemistry Quality Control Technician Name Role Phone Linnea Escalante Unavailable [phone] Nickolas Isaacs MD Primary Care Provider [phone] Linnea Escalante Unavailable [phone] Encounter Details Date Type Department Care Team (Late st Contact Info) Description 03/15/2023 Clinisync Result Encounter [facility] External Department Unsolicited Mily Dailey NP [address] [place], [place] [id number] Social History Tobacco Use Types Packs/Day Years [...] often do you attend chur ch or yazidi services? 1 to 4 times per year 08/02/2022 Do you belong to any clubs o r organizations such as jain groups, unions, fraternal or athletic groups, or [...] medical care, and heating? Somewhat hard 08/01/2022 [facility] Occupat ional Health [...] 10/23/2024 3:00 PM EDT Office Visit [facility] [address] [place] [phone] Db Keane DO [address] [facility] [address] [place], [place] [id number] 12/20/2024 8:00 AM EDT Office Visit [facility] [address] [place] [address] Linnea Escalante PA [address] [place] [address] documented as of this encounter Procedures Procedure [...] na DAP = na us Mily Dailey [facility] Final Resul t documented in this encounter Visit Diagnoses Not on filedocumented in this encounter Care Teams Chemistry Quality Control Technician Relationship Specialty Start Date End Date Linnea Escalante PA [address] [place] [address] PCP - Medical Irene Commercial 08/11/22 10/03/23 Nickolas Isaacs MD [address] [place] [address] PCP - General Family Medicine 09/28/22 Linnea Escalante PA [address] [place] [address] Physician Ecd Family Medicine 09/28/22 documented as of this encounter
--- OUTSIDE RECORDS SUMMARY | 2024-10-21 17:49 | XMS_ITS | Encounter Summary ---
Author Organization [facility] Address [address] [place] [address] Care Team Providers Care Clinical Trial Leader Name Role Phone Nickolas Isaacs MD Primary Care Provider [phone] Linnea Escalante Unavailable [phone] Encounter Details Date Type Department Care Team (Latest Contact Info) Description 10/14/2024 Travel Social History Tobacco Use Types Packs/Day [...] 10/08/2024 How often do you attend chur ch or holiness services? 1 to 4 times per year 10/08/2024 Do you belong to any clubs o r organizations such as anabaptism groups, unions, fraternal or athletic groups, or [...] medical care, and heating? Somewhat hard 10/08/2024 [facility] of Occupat ional Health - Occupational Stress [...] place to sleep or slept in a [place] health care facility (including now)? No 08/01/2022 Housing Stability Vital Sign Answer Bryan e Recorded In the last 12 months, was t here a time when you were not able to pay the mortgage or rent on time? No 10/08/2024 In the past 12 months, how m any times have you moved where you were living? 1 10/08/2024 At any time in the past 12 m [facility], were you homeless or living in a [place] health care facility (including now)? No 10/08/2024 Comments No Sex [...] 3:00 PM EDT Office Visit [facility] [place] [facility] [address] [place] [address] Db Keane DO [address] [facility] [place] [address] 12/20/2024 8:00 AM EDT Office Visit [facility] [address] [place] [address] Linnea Escalante PA [address] [place] [address] documented as of this encounter Visit Diagnoses Not on filedocumented in this encounter Care Teams Clinical Trial Leader Relationship Specialty Start Date End Date Nickolas Isaacs MD [address] [place] [address] PCP - General Family Medicine 09/28/22 Linnea Escalante PA [address] [place] [address] Physician Communications Assistant Family Medicine 09/28/22 documented as of this encounter
--- OUTSIDE RECORDS SUMMARY | 2024-10-21 17:49 | XMS_ITS | Encounter Summary ---
Author Organization [facility] Address [address] [place] [address] Care Team Providers Care Motion Picture Commentator Name Role Phone Linnea Escalante PA-C Primary Care Provider Maddi Ochoa RN Unavailable Source Comments In the event this information is protected by the Federal Confidentiality of Alcohol and Drug AbusePatient Records regulations: The Federal rules restrict any use of the information to criminally investigate or prosecute any alcohol or drug abuse patient.[facility] Encounter Details Date Type Department Care Team (Late st Contact Info) Description 08/28/2024 GI Preprocedure Call Ambulatory Surgery [address] [place] [address] [place] [address] [place] [address] Social History Tobacco Use Types Packs/Day Years Used Date Smoking Tobacco: Never Assessed Area Deprivation Index Answer Date Satish rded National Score (1-100), lower number is lower ri sk 76 11/18/2022 State Score (1-10), lower number is lower risk 6 11/18/2022 Data from: https://www.neigh marihoodatrosa.medicine.[facility].edu/. Last address used for calculation [address] [...] 8:00 AM EDT Office Visit Vascular Surgery [address] [place] [phone] Nausea and vomiting, unspecified vomiting type [R11.2] 11/05/2024 9:00 AM EDT Nurse Visit [facility] Gastroenterology [facility] [address] [place] [address] [facility], Nurse [facility] [address] [facility] [address] [place], [place] [phone] Nausea and vomiting, unspecified vomiting type [R11.2] documented as of this encounter Visit Diagnoses Not on filedocumented in this encounter Care Teams Motion Picture Commentator Relationship Specialty Start Date End Date Linnea Escalante PA-C [address] [place] [address] PCP - General Family Medicine 02/03/23 [place] [address] [place] [address] Specialty Digital Composer Hematology/Oncology 02/10/23 documented as of this encounter
--- OUTSIDE RECORDS SUMMARY | 2024-10-21 17:49 | XMS_ITS | Clinical Summary ---
Author Organization [facility] Address [address] 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 05/31/2023 Active cholecalciferol (VITAMIN D3) 25 mcg (1,000 unit) capsule Take 2 capsules by mouth in the morning. Active TRELEGY ELLIPTA 200-62.5-25 mcg disk inhaler Inhale 1 puff by mouth in the morning. 05/31/2023 Active topiramate (TOPAMAX) 100 mg tablet Take 100 mg by mouth at bedtime. 06/17/2023 Active levothyroxine (SYNTHROID) 100 mcg tablet Take 100 mcg by mouth once daily, 30 min prior to meal. Active albuterol 2.5 mg/3 mL (0.083 %) NEB solution 2.5 mg every six to eight hours as needed. 01/08/2024 10/28/20 25 Active omeprazole 20 mg delayed release capsule Take 1 capsule (20 mg) by mouth once daily, 30 min prior to meal. 90 capsule 4 04/19/2024 07/14/19 26 Active Active Problems Problem Noted Date Diagnosed Date Nausea & vomiting 04/22/2024 Immunizations Immunization Administration Dates Next Due Influenza, Quadrivalent (P-f ree) (6 Mo And Older) (Inject) (Seasonal Historic) 12/08/2022 Family History Medical History Relation Name Comments Hypertension Father Leonardo Lung cancer Maternal Aunt Vera Ovarian cancer Maternal Aunt Vera Cystic fibrosis Maternal Cousin Laurent Thyroid disease Maternal Grandmother Mayra Hypo thyroid Breast cancer Maternal Great-Grandmother Alexandra Autoimmune disease Paternal Cousin Nallely POTS Diabetes Paternal Grandfather Leonardo Heart disease Paternal Grandfather Leonardo Melanoma Paternal Great-Grandmother Kathie Relation Name Status Comments Father Leonardo Maternal Aunt Vera Maternal Cousin Laurent Maternal Grandmother Mayra Maternal Great-Grandmother Alexandra Paternal Cousin Nallely Paternal Grandfather Leonardo Paternal Great-Grandmother Kathie Social History Tobacco Use Types Packs/Day Years Used Date Smoking Tobacco: Never Smokeless Tobacco: Never Tobacco Cessation:Counseling Given: Not Answered Comments:No changes 07/17/2024 AA Alcohol Use Standard Drinks/Week Comments Never 0 (1 standard drink = 0.6 oz pur e alcohol) [facility] Utilities Answer Date Recorded In the past 12 months has th e electric, gas, oil, or water company threatened to shut off services in your home? No 04/16/2024 Hunger Vital Sign Answer Date Recorded Within the past 12 months, y ou worried that your food would run out before you got the money to buy more. Never true 04/16/19 25 Within the past 12 months, t he food you bought just didn't last and you didn't have money to get more. Never true 04/16/2024 PRAPARE - Transportation Answer Date Re corded In the past 12 months, has l ack of transportation kept you from medical appointments or from getting medications? No 04/10/2023 Lack of Transportation (Non-Medical) Not on file 04/10/2023 [facility] - Inadequate Housing Answer Date Re corded Current Living Situation Not on file [address] you li ve. Do you have problems with any of the following? None of the above 04/16/2024 NCSS - Interpersonal Safety Answer Date Recorded Do you feel physically and e motionally safe where you currently live? Yes 04/16/2024 Within the past 12 months, h ave you been hit, slapped, kicked or otherwise physically hurt by someone? No 04/16/2024 Within the past 12 months, h ave you been humiliated or emotionally abused in other ways by your partner or ex-partner? No 04/16/2024 AHC - Transportation Answer Date Record ed In the past 12 months, has l ack of reliable transportation kept you from medical appointments, meetings, work or from getting things needed for daily living? No 04/16/2024 [facility] - Financial Strain Answer Date Satish rded How hard is it for you to pa y for the very basics like food, housing, medical care, and heating? Would you say it is: Somewhat hard 04/16/2024 Job Training Answer Date Recorded Do you have a hard time find ing work or another steady source of income? No 04/16/2024 Do you need help finding a [employer] center and/or job training? No 04/16/2024 Child or Elder Care Answer Date Recorde d In the last 4 weeks, did get ting summer child caregiver, elder care, or care for another person make it difficult to work, study, or get to medical visits? 2 No 04/16/2024 Virtual Care Answer Date Recorded How would you describe your comfort level with using technology (smart phones, mobile apps, patient portals) to access your health care? Rather comfortable 04/16/2024 Do you have internet access in your home that would allow you to participate in a realtime video visit with your provider? Yes 04/16/2024 Do you have access to a sung ce that would allow you to participate in virtual care with your provider, such as a laptop, computer, smart phone or tablet? Yes 06/2024 Social Isolation Answer Date Recorded Within the last 12 months, h ow often do you feel isolated from others? 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 file Not on file Not on file Last Filed Vital Signs Vital Sign Reading Time Taken Comments Blood Pressure 118/66 07/17/2024 8:18 AM EDT Pulse 82 07/17/2024 8:18 AM EDT Temperature 36.5 C (97.7 F) 07/17/2024 8:18 AM EDT Respiratory Rate 16 07/17/2024 8:18 AM EDT Oxygen Saturation - - Inhaled Oxygen Concentration - - Weight 125 kg (275 lb 9.6 oz) 07/17/2024 8:18 AM EDT WITH SHOES Height 170.2 cm (5' 7.01 ) 07/17/2024 8:18 AM ED T VERIFIED Body Mass Index 43.15 07/17/2024 8:18 AM EDT Plan of Treatment Upcoming Encounters Date Type Department Care Team (Late st Contact Info) Description 04/16/2025 8:30 AM EST Appointment [facility] Radiology [facility] Floor B1 Fire Prevention Chief A [address] [place] [address] [address] [place] [address] 04/16/2025 10:00 AM EST Office Visit [facility] Floor B1 Fire Prevention Chief E [address] [place] [address] Dr [address] [place] [phone] Rebeka Aleman PA-C [address] [place] [address] Dr [address] [facility] Center Floor B1 Fire Prevention Chief B [facility] [place] [address] Health Maintenance Due Date Last Done Comments Hepatitis C Screening 1995 DTaP,Tdap,and Td Vaccines (6 - Tdap) 2006 06/30/2000, 04/24/1996, 1995, Additional history exists Cervical Cancer Screening: Cytology 01/20/2016 COVID-19 Vaccine ( season) 2023 02/11/2021, 04/17/2020, 03/20/2020 Influenza Vaccine (#1) 2024 3, 2021, 01/10/2020 Respiratory Syncytial Virus (RSV) or ages 60 years and older (1 - 1-dose 75+ series) 2070 Hepatitis B Vaccine ages 19 years and older Completed 1995, 1995, 1995 Pneumococcal Combined Aged Out No angelica akhlil eligible based on patient's age to complete this topic Respiratory Syncytial Virus (RSV) ages 0 thru 19 months Aged Out No longer el igible based on patient's age to complete this topic Medical Devices Implanted Type Area Quality Compliance Consultant Device Identifier Shelf Expiration Date Model / Serial / Lot Unsafe Metal Fragments Insurance [facility] Care Teams Web Press Operator Assistant Relationship Specialty Start Date End Date Linnea Escalante PA-C [address] [place] [phone] PCP - General 04/16/24 Edmundo Sharma [address] [place] [address] Hematology and Oncology 03/28/23 Elizabeth Randall MD [address] [place] [address] [facility] Internal [place] [address] Specialty Physician Medical Oncology 04/12/23 Shyla Nuñez Oncology Bond Writer 04/14/23
--- OUTSIDE RECORDS SUMMARY | 2024-10-21 17:49 | XMS_ITS | Encounter Summary ---
Author Organization [facility] Address [address] [place] [address] Care Team Providers Care Naval Marine Engineer Name Role Phone Linnea Escalante PA-C Primary Care Provider Maddi Ochoa RN Unavailable Source Comments In the event this information is protected by the Federal Confidentiality of Alcohol and Drug AbusePatient Records regulations: The Federal rules restrict any use of the information to criminally investigate or prosecute any alcohol or drug abuse patient.[facility] Encounter Details Date Type Department Care Team (Late st Contact Info) Description 09/05/2024 Get Medical Advice Gastroenterology [address] [place], [place] [phone] Irma Nava APRN.STOCKBROKER [address] [place], [place] [phone] GASTRIC EMPTYING STUDY Social History Tobacco Use [...] risk 6 11/18/2022 Data from: https://www.neigh marihoodatrosa.medicine.[facility]/. Last address used for calculation [...] AM EDT Office Visit Vascular Surgery [address] [place] [address] Nausea and vomiting, unspecified vomiting type [R11.2] 11/05/2024 9:00 AM EDT Nurse Visit [facility] Gastroenterology [facility] [address] [place] [address] [facility], Nurse [facility] [address] [place], [place] [phone] Nausea and vomiting, unspecified vomiting type [R11.2] documented as of this encounter Visit Diagnoses Not on filedocumented in this encounter Care Teams Naval Marine Engineer Relationship Specialty Start Date End Date Linnea Escalante PA-C [address] [place] [address] PCP - General Family Medicine 02/03/23 [place] [address] [place] [address] Specialty Seed Pelleter Hematology/Oncology 02/10/23 documented as of this encounter
--- OUTSIDE RECORDS SUMMARY | 2024-10-21 17:49 | XMS_ITS | Encounter Summary ---
Author Organization [facility] Address [address] [place] [address] Care Team Providers Care Open Hearth Helper Name Role Phone Nickolas Isaacs MD Primary Care Provider [phone] Linnea Escalante Unavailable Encounter Details Date Type Department Care Team (Latest Contact Info) Description 10/08/2024 Travel Social History Tobacco Use Types Packs/Day [...] often do you attend chur ch or pentecostalism services? 1 to 4 times per year [...] medical care, and heating? Somewhat hard 10/08/2024 [facility] [place] of Occupat ional Health - Occupational Stress [...] place to sleep or slept in a long term (including now)? No 08/01/2022 Housing Stability Vital [...] time in the past 12 m [facility], were you homeless or living in a long term (including now)? No 10/08/2024 Comments No Sex and Gender Information Value Date Recorded Sex Assigned at Female 08/01/2022 4:36 PM EDT Legal Sex Female 7:27 PM EDT Gender Identity Female 05/25/2022 7:27 PM EDT Sexual Orientation Straight 08/03/2022 8: 31 PM EDT documented as of this encounter Functional Status * Audit-C Score Answer Date of Assessment Author 0 10/08/2024 10:37 AM EDT Mario, Generic * Q1: How often do you have a drink containing alcohol? Answer Date of Assessment Author Never 10/08/2024 10:37 AM EDT Mario, Generic * Q2: How many drinks containing alcohol do you have on a typical day when you are drinking? Answer Date of Assessment Author Patient does not drink 10/08/2024 10:37 AM EDT Steven castro Generic * Q3: How often do you have six or more drinks on one occasion? Answer Date of Assessment Author Never 10/08/2024 10:37 AM EDT Mario Generic documented as of this encounter Plan of Treatment Upcoming Encounters Date Type Department Care Team (Late st Contact Info) Description 10/23/2024 3:00 PM EDT Office Visit JAIME DIAZ [address] [place] [address] Db Keane DO [address] [facility] [address] [place] [address] 12/20/2024 8:00 AM EDT Office Visit [facility] [place] [facility] [address] [place] [address] Linnea Escalante PA [address] [place] [address] documented as of this encounter Visit Diagnoses Not on filedocumented in this encounter Care Teams Open Hearth Helper Relationship Specialty Start Date End Date Nickolas Isaacs MD [address] [place] [address] PCP - General Family Medicine 09/28/22 Linnea Escalante PA [address] [place] [address] Physician Cook Syrup Maker Family Medicine 09/28/22 documented as of this encounter
--- OUTSIDE RECORDS SUMMARY | 2024-10-21 17:49 | XMS_ITS | Encounter Summary ---
Author Organization [facility] Address [facility] [place] [address] Care Team Providers Care Etl Data Architect Name Role Phone Linnea Escalante PA-C Primary Care Provider Maddi Ochoa RN Unavailable Source Comments In the event this information is protected by the Federal Confidentiality of Alcohol and Drug AbusePatient Records regulations: The Federal rules restrict any use of the information to criminally investigate or prosecute any alcohol or drug abuse patient.[facility] Encounter Details Date Type Department Care Team (Late st Contact Info) Description 08/14/2024 Patient Msg [facility] [address] [place] [address] ProviderKieran colon prep instructions Social History Tobacco Use Types Packs/Day Years Used Date Smoking Tobacco: Never Assessed Area Deprivation Index Answer Date Satish rded National Score (1-100), lower number is lower ri sk 76 11/18/2022 State Score (1-10), lower number is lower risk 6 11/18/2022 Data from: https://www.elin guerrahoodphilip.medicine.[facility].edu/. Last address used for calculation 24 [...] AM EDT Office Visit Vascular Surgery [address] [place] [address] Nausea and vomiting, unspecified vomiting type [R11.2] 11/05/2024 9:00 AM EDT Nurse Visit [facility] Gastroenterology [facility] [address] [facility] [address] [place], [place] [phone] [facility], Nurse Beatrice Dunmore [address] [address] [place] [address] Nausea and vomiting, unspecified vomiting type [R11.2] documented as of this encounter Visit Diagnoses Not on filedocumented in this encounter Care Teams Etl Data Architect Relationship Specialty Start Date End Date Linnea Escalante PA-C [address] [place] [address] PCP - General Family Medicine 02/03/23 Madd[place], [place] [address] [place] [address] Specialty Automotive Parts Advisor Hematology/Oncology 02/10/23 documented as of this encounter
--- OUTSIDE RECORDS SUMMARY | 2024-10-21 17:49 | XMS_ITS | Encounter Summary ---
Author Organization [facility] Address [address] [place] [address] Care Team Providers Care Gifted Teacher Name Role Phone Linnea Escalante Unavailable [phone] Nickolas Isaacs MD Primary Care Provider [phone] Linnea Escalante Unavailable [phone] Encounter Details Date Type Department Care Team (Late st Contact Info) Description 04/05/2023 Orders Only [facility] [address] [place] [id number] Linnea Escalante PA [address] [place] [address] Social History Tobacco Use Types [...] often do you attend chur ch or amish services? 1 to 4 times per year 08/02/2022 Do you belong to any clubs o r organizations such as yarsanism groups, unions, fraternal or athletic groups, or [...] medical care, and heating? Somewhat hard 08/01/2022 [facility] - Occupational [...] a nursing home (including now)? No 08/01/2022 Comments No [...] PM EDT Office Visit JAIME DIAZ [address] [place] [phone] Db Keane DO [address] [facility] [facility] [address] [place], [place] [id number] 12/20/2024 8:00 AM EDT Office Visit [facility] [address] [place] [phone] Linnea Escalante PA [address] [place] [address] documented as of this encounter Procedures Procedure [...] on filedocumented in this encounter Care Teams Gifted Teacher Relationship Specialty Start Date End Date Linnea Escalante PA [address] [place] [address] PCP - Medical [place] [employer] 08/11/22 10/03/23 Nickolas Isaacs MD [address] [place] [address] PCP - General Family Medicine 09/28/22 Linnea Escalante PA [address] [place] [address] Physician Glass Lined Tank Repairer Family Medicine 09/28/22 documented as of this encounter
--- OUTSIDE RECORDS SUMMARY | 2024-10-21 17:49 | XMS_ITS | Encounter Summary ---
Author Organization [facility] Address [address] [place] [address] Care Team Providers Care Coke Oven Patcher Name Role Phone Linnea Escalante Unavailable [phone] Nickolas Isaacs MD Primary Care Provider [phone] Linnea Escalante Unavailable [phone] Encounter Details Date Type Department Care Team (Late st Contact Info) Description 06/14/2023 Clinisync Result Encounter [facility] External Department Unsolicited Deon Parra MD [address] [facility] [place] [id number] Social History Tobacco Use Types Packs/Day Years [...] often do you attend chur ch or worship services? 1 to 4 times per year 08/02/2022 Do you belong to any clubs o r organizations such as rastafari groups, unions, fraternal or athletic groups, or [...] medical care, and heating? Somewhat hard 08/01/2022 [facility] - Occupational [...] 10/23/2024 3:00 PM EDT Office Visit [facility] [place] [facility] [address] [facility] [address] [phone] Db Keane DO [address] [facility] [address] [place], [place] [phone] 12/20/2024 8:00 AM EDT Office Visit [facility] [address] [place] [address] Linnea Escalante PA [address] [place] [address] documented as of this encounter Procedures Procedure [...] Parra FINAL REPORT Dictated: 06/15/2023 4:17 pm Devorah VELASQUEZ, Leonardo Infante Signed (Electronic Signature): 06/15/2023 4:17 pm Signed [...] Parra FINAL REPORT Dictated: 06/15/2023 4:17 pm Devorah MD, Leonardo L. Signed (Electronic Signature): 06/15/2023 4:17 pm Signed by: Leonardo Fairchild MD Transcribed by: MIRIAM Technologist: FRANCESCA Technical Comments Vueway Contrast amount in ml's: 10 us Deon Parra MD [facility] Final Resul t documented in this encounter Visit Diagnoses Not on filedocumented in this encounter Care Teams Coke Oven Patcher Relationship Specialty Start Date End Date Linnea Escalante PA [address] [place] [address] PCP - Medical [place] Commercial 08/11/22 10/03/23 Nickolas Isaacs MD [address] [place] [address] PCP - General Family Medicine 09/28/22 Linnea Escalante PA [address] [place] [address] Physician Semiconductor Packages Leak Tester Family Medicine 09/28/22 documented as of this encounter
--- OUTSIDE RECORDS SUMMARY | 2024-10-21 17:49 | XMS_ITS | Clinical Summary ---
Author Organization [facility] Address [address] [place] [address] Care Team Providers Care Wellfield Technician Name Role Phone Linnea Escalante PA-C Primary Care Provider Maddi Ochoa RN Unavailable Allergies Active Allergy Reactions Criticality Noted Date Comments Bees Anaphylaxis 02/03/2023 Berries Hives 02/03/2023 raspberries Medications levothyroxine (SYNTHROID) 100 mcg tablet Take 100 mcg by mouth daily before breakfast. Active metFORMIN (GLUCOPHAGE) 500 mg tablet Take 500 mg by mouth daily with breakfast. Active Cholecalciferol , Vitamin D3, (VITAMIN D) 25 mcg (1,000 unit) cap Take 1,000 Units by mouth once daily. Active albuterol-budes onide HFA (AIRSUPRA) 90-80 mcg/actuation inhaler Inhale 2 puffs as instructed every 4 hours as needed. [address] (PROTONIX) 40 mg tablet Take 1 tablet by mouth once daily. 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 Anxiety disorder 08/02/2022 Acquired hypothyroidism 10/11/2019 Obesity (BMI 30-39.9) 01/30/2011 Encounters Date Type Department Care Team Description 09/30/2024 Get Medical Advice Gastroenterology [address] [place] [address] [place] [address] Irma Nava APRN.CNP Next steps 09/30/2024 Results Follow-Up Gastroenterology [address] [place] [address] [place] [address] Irma Nava APRN.DRIVER LIFTER OF SANITATION TRUCK 09/24/2024 8:21 AM EDT - 09/24/2024 11:59 PM EDT Hospital Encounter Molecular Imaging [address] [place] [address] Dyspepsia [R10.13] Discharge Disposition: Home 09/17/2024 Travel 09/05/2024 Get Medical Advice Gastroenterology [address] [place] [address] [place] [address] Irma Nava APRN.DRIVER LIFTER OF SANITATION TRUCK GASTRIC EMPTYING STUDY 09/03/2024 Results Follow-Up Ambulatory Surgery [address] [place] [address] Gene Parson MD 08/29/2024 11:11 AM EDT Anesthesia Event Ambulatory Surgery [address] [place] [address] Cami Rivera APRN.CRNA Synk, Lacey, APRN.CRNA 08/29/2024 10:43 AM EDT - 08/29/2024 11:59 PM EDT Hospital Encounter Ambulatory Surgery [address] [place] [address] Gene Parson MD Nausea and vomiting, unspecified vomiting type [R11.2] Discharge Disposition: Home 08/29/2024 Travel 08/28/2024 Travel 08/28/2024 GI Preprocedure Call Ambulatory Surgery [address] [place] [address] Gene Parson MD 08/14/2024 Patient Msg [facility] [address] [place] [address] Provider, [facility] colon prep instructions 07/30/2024 8:50 AM EDT Office Visit Gastroenterology [address] [place] [address] [place] [address] Irma Nava APRN.CNP Nausea and vomiting, unspecified vomiting type (Primary Dx); Abdominal bloating; Epigastric pain; Dyspepsia; Unintentional weight loss 07/30/2024 Travel 07/23/2024 Travel from Last 3 Months Social History [...] lower risk 6 11/18/2022 Data from: https://www.[facility] [email or web address].medicine.[facility].edu/. Last address used for calculation 24 [...] 8:00 AM EDT Office Visit Vascular Surgery [address] [place], [place] [phone] Nausea and vomiting, unspecified vomiting type [R11.2] 11/05/2024 9:00 AM EDT Nurse Visit [facility] Gastroenterology [facility] [address] [facility] [address] [place] [address] [facility], Nurse [place] [address] [facility] [address] [place] [address] Nausea and vomiting, unspecified vomiting type [R11.2] Health Maintenance Due Date Last Done Comments DTaP,Tdap,Td Vaccine (6 - Tdap) 2006 06/30/2000, 04/24/1996, 1995, Additional history exists Annual PCP Team Chronic Dise ase Visit 2013 HIV Screening 2013 Hepatitis C Screening 2013 Cervical Cancer Screening 01/20/2016 Influenza Vaccine (#1) 2024 , 11/12/2023, 12/08/2022, Additional history exists Hepatitis B Vaccine Completed 1995, 1995, 1995 HPV Vaccine Completed 10/31/2007, 05/11, 03/27/2007 Procedures Procedure Name Priority Date/Time Associated Diagnosis Comments PT ED PATIENT INFORMATION 10/09/2024 NM GASTRIC EMPTYING SOLID Routine 09/27/2024 11:02 AM EDT Dyspepsia COLONOSCOPY (THERAPEUTIC) Routine 08/29/2024 11:23 AM EDT [...] DISEASE 07/31/2024 PT ED DIGESTIVE DISEASE 07/31/2024 from Last 3 Months Results * PT ED PATIENT INFORMATION (10/09/2024) 10/09/2024 Narrative FLAKITO - 10/15/2024 Provider PROVIDER your patient ADINA RENE started their Flakito on 10-15-2024 and completed it on 10-15-2024 Flakito program: PATIENT SAFETY INSTRUCTIONS FOR HEALTHCARE SETTINGS us [facility] Provider FLAKITO Final Result FLAKITO * NM GASTRIC EMPTYING SOLID (09/27/2024 11:02 AM EDT) Anatomical Region Laterality Modality Nuclear Medicine 09/24/2024 12:4 5 PM EDT Impressions 09/27/2024 11:53 AM EDT IMPRESSION: Normal gastric emptying rate for the solid meal. Building Estimator: BRIT Transcribe Date/Time: Sep 27 2024 11:50A Dictated by : PIETRO JONES MD This examination was interpreted and the report reviewed and electronically signed by: PIETRO JONES MD on Sep 27 2024 11:51AM EST Narrative 09/27/2024 11:53 AM EDT * * *Final Report* * * DATE OF EXAM: Sep 24 2024 12:45PM N 0017 - NM GASTRIC EMPTYING SOLID / [...] retention at 4 hours (normal range, 0-10%) Procedure Note Provider, [facility] [place] - 09/27/2024 * * *Final Report* * * DATE OF EXAM: Sep 24 2024 12:45PM [facility] 0017 - NM GASTRIC EMPTYING SOLID / [...] retention at 4 hours (normal range, 0-10%) IMPRESSION IMPRESSION: Normal gastric emptying rate for the solid meal. Building Estimator: PSCB Transcribe Date/Time: Sep 27 2024 11:50A Dictated by : PIETRO JONES MD This examination was interpreted and the report reviewed and electronically signed by: PIETRO JONES MD on Sep 27 2024 11:51AM EST Irma Elijah TOOL DISTRIBUTOR.DRIVER LIFTER OF SANITATION TRUCK NM-PAMA Final Resul t * COLONOSCOPY DIAGNOSTIC (08/29/2024 11:23 AM EDT) Anatomical Region Laterality Modality Other 08/29/2024 11:2 3 AM EDT Narrative 09/09/2024 12:[address] [facility] Gastroenterology Gastrointestinal Endoscopy Patient Name: Adina Rene Procedure Date: 08/29/2024 11:23 AM Date of : 1995 Admit Type: Outpatient Age: 29 Room: [place] [address] Gender: Female Note Status: Neurosurgical Nurse Practitioner Override Attending MD: Gene Parson MD, [id number] Procedure: Colonoscopy Indications: Generalized abdominal pain Providers: [...] by the physician, the nurse and the relief salesperson in the procedure room at 11:11. Mental [...] home (ambulatory). Procedure Code(s): --- Professional --- 54041, Colonoscopy, flexible; diagnostic, including collection of specimen(s) by brushing or washing, when performed (separate procedure) Diagnosis Code(s): --- Professional --- R10.84, Generalized abdominal pain CPT copyright 2020 [employer]. All rights reserved. The codes documented in this report are preliminary and upon hair cutter review may be revised to meet current compliance requirements. Scope In: 11:25:29 AM Scope Out: 11:38:57 AM MD Gene Sparks MD 08/29/2024 11:41:28 AM This report has been signed electronically by Gene Parson MD Number of Addenda: 0 Note Initiated On: 08/29/2024 11:23 AM Estimated Blood Loss: Estimated blood loss: none. us Irma Pack TOOL DISTRIBUTOR.DRIVER LIFTER OF SANITATION TRUCK DIGESTIVE DISEASE Edited Re sult - Final * COLONOSCOPY (THERAPEUTIC) (08/29/2024 11:23 AM EDT) Anatomical Region Laterality Modality Other 08/29/2024 11:2 3 AM EDT Narrative 08/29/2024 11:[address] [facility] Gastroenterology Gastrointestinal Endoscopy Patient Name: Adina Rene Procedure Date: 08/29/2024 11:23 AM Date of : 1995 Admit Type: Outpatient Age: 29 Room: [facility] Gender: Female Note Status: Finalized Attending MD: Gene Parson MD, [id number] Procedure: Colonoscopy Indications: Generalized abdominal pain Providers: [...] by the physician, the nurse and the relief salesperson in the procedure room at 11:11. Mental [...] home (ambulatory). Procedure Code(s): --- Professional --- 05561, Colonoscopy, flexible; diagnostic, including collection of specimen(s) by brushing or washing, when performed (separate procedure) Diagnosis Code(s): --- Professional --- R10.84, Generalized abdominal pain CPT copyright 2020 [employer]. All rights reserved. The codes documented in this report are preliminary and upon hair cutter review may be revised to meet current compliance requirements. Scope In: 11:25:29 AM Scope Out: 11:38:57 AM MD Gene Sparks MD 08/29/2024 11:41:28 AM This report has been signed electronically by Gene Parson MD Number of Addenda: 0 Note Initiated On: 08/29/2024 11:23 AM Estimated Blood Loss: Estimated blood loss: none. us Irma Nava TOOL DISTRIBUTOR.DRIVER LIFTER OF SANITATION TRUCK DIGESTIVE DISEASE Final Res ult * SURGICAL PATHOLOGY (08/29/2024 11:16 AM EDT) Case Report Surgical Pathology Report Case: [id number] Authorizing Provider: Gene Parson MD Collected: 08/29/2024 11:16 AM Ordering Location: Ambulatory Surgery Received: 08/29/2024 08:14 PM Pathologist: Ed Pruett MD, PhD Specimens: A) - Small Bowel, Duodenum, Biopsy, r/o celiac B) - Stomach, Biopsy, r/o h. pylori C) - Esophagus, Biopsy, r/o eoe and barretts 08/30/2024 3:49 PM EDT [facility] FINAL DIAGNOSIS A. Duodenum, biopsy: - Duodenal mucosa with no significant diagnostic abnormality. B. Stomach, biopsy: - Reactive gastric antral and oxyntic mucosa with focal minimally active inflammation. - No evidence of H. pylori microorganisms on H&E sections. C. Esophagus, biopsy: - Reactive squamous mucosa and inflamed gastric cardia-type mucosa, negative for intestinal metaplasia. 08/30/2024 3:49 PM EDT [facility] at 1549 EDT Gross Description A. [...] 2024 12:14 AM Gross examination performed at [facility], [address] [place] [address] 08/30/2024 3:49 PM EDT [facility] Performing Lab Diagnostic interpretation performed at: [facility], [address] [place] [address], [place] [id number] CLIA# [id number] Wader Boot Top Assembler: Jose Heaton MD 08/30/2024 3:49 PM EDT [facility] Disclaimer Laboratory Developed Test (LDT) Disclaimer: Performance characteristics of immunohistochemica l, immunofluorescent, and chromogenic in-situ hybridization tests have been determined by the performing laboratory within [facility]'s Erick Macias Pathology and Laboratory Medicine Department ([facility], [facility], [facility], [facility], [facility], [facility], or [facility]) in a manner consistent with CLIA requirements. One or more of these tests may not have been cleared or approved by the FDA. [facility] is regulated under CLIA as qualified to perform high-complexity testing. These tests are used for clinical purposes. These should not be regarded as investigational or for research. Positive and negative controls stain appropriately. 08/30/2024 3:49 PM EDT [facility] Tissue SPECIMEN FROM ESOPHAGUS OBTAINED BY INCISIONAL BIOPSY / Unknown 08/29/2024 11:16 AM EDT 08/29/2024 8:14 PM EDT Tissue specimen (specimen) BIOPSY OF STOMACH / Unknown 08/29/2024 11:16 AM EDT 08/29/2024 8:14 PM EDT Tissue specimen (specimen) SPECIMEN FROM ESOPHAGUS OBTAINED BY INCISIONAL BIOPSY / Unknown 08/29/2024 11:16 AM EDT 08/29/2024 8:14 PM EDT Gene Parson MD SURGICAL PATHOLOGY Final Resu lt Performing Organization Address City/State/[facility] Co de Phone Number [facility] [address] [place] [phone], * EGD DIAGNOSTIC (08/29/2024 11:02 AM EDT) Anatomical Region Laterality Modality Other 08/29/2024 11:0 2 AM EDT Narrative 09/09/2024 12:[address] [facility] Gastroenterology Gastrointestinal Endoscopy Patient Name: Adina Rene Procedure Date: 08/29/2024 11:02 AM Date of : 1995 Admit Type: Outpatient Age: 29 Room: [facility] Gender: Female Note Status: Neurosurgical Nurse Practitioner Override Attending MD: Gene Parson MD, [id number] Procedure: Upper GI endoscopy Indications: Nausea with [...] by the physician, the nurse and the relief salesperson in the procedure room at 11:11. Mental [...] colonoscopy today. Procedure Code(s): --- Professional --- 17341, Esophagogastroduodenoscopy, flexible, transoral; with biopsy, single or multiple Diagnosis Code(s): --- Professional --- K21.00, Gastro-esophageal reflux disease with esophagitis, without bleeding R11.2, Nausea with vomiting, unspecified CPT copyright 2020 [employer]. All rights reserved. The codes documented in this report are preliminary and upon hair cutter review may be revised to meet current compliance requirements. Scope In: 11:15:53 AM Scope Out: 11:20:18 AM MD Gene Sparks MD 08/29/2024 11:23:44 AM This report has been signed electronically by Gene Parson MD Number of Addenda: 0 Note Initiated On: 08/29/2024 11:02 AM Estimated Blood Loss: Estimated blood loss: none. Irma Nava TOOL DISTRIBUTOR.DRIVER LIFTER OF SANITATION TRUCK DIGESTIVE DISEASE Edited Re sult - Final * EGD - THERAPEUTIC, EUS, OR TUBE INTERVENTIONS (08/29/2024 11:02 AM EDT) Anatomical Region Laterality Modality Other 08/29/2024 11:0 2 AM EDT Narrative 08/29/2024 11:[address] [facility] Gastroenterology Gastrointestinal Endoscopy Patient Name: Adina Rene Procedure Date: 08/29/2024 11:02 AM Date of : 1995 Admit Type: Outpatient Age: 29 Room: [place] [address] Gender: Female Note Status: Finalized Attending MD: Gene Parson MD, [id number] Procedure: Upper GI endoscopy Indications: Nausea with [...] by the physician, the nurse and the relief salesperson in the procedure room at 11:11. Mental [...] colonoscopy today. Procedure Code(s): --- Professional --- 00480, Esophagogastroduodenoscopy, flexible, transoral; with biopsy, single or multiple Diagnosis Code(s): --- Professional --- K21.00, Gastro-esophageal reflux disease with esophagitis, without bleeding R11.2, Nausea with vomiting, unspecified CPT copyright 2020 [employer]. All rights reserved. The codes documented in this report are preliminary and upon hair cutter review may be revised to meet current compliance requirements. Scope In: 11:15:53 AM Scope Out: 11:20:18 AM MD Gene Spraks MD 08/29/2024 11:23:44 AM This report has been signed electronically by Gene Parson MD Number of Addenda: 0 Note Initiated On: 08/29/2024 11:02 AM Estimated Blood Loss: Estimated blood loss: none. Irma Nava TOOL DISTRIBUTOR.DRIVER LIFTER OF SANITATION TRUCK DIGESTIVE DISEASE Final Res ult * PT ED DIGESTIVE DISEASE (07/31/2024) Only the most recent of2 resultswithin the time period is included. 07/31/2024 Narrative FLAKITO - 07/31/2024 Provider SUKHJINDER your patient ADINA RENE started their Flakito on 07-31-2024 and completed it on 07-31-2024 Flakito program: UPPER GI ENDOSCOPY (EGD) Gene Parson MD FLAKITO Final Result FLAKITO from Last 3 Months Insurance MMO [employer] PPO Care Teams Wellfield Technician Relationship Specialty Start Date End Date Linnea Esaclante PA-C [address] [place] [address] PCP - General Family Medicine 02/03/23 [place] [address] [place] [address] Specialty Boiler Out Hematology/Oncology 02/10/23
--- OUTSIDE RECORDS SUMMARY | 2024-10-21 17:49 | XMS_ITS | Encounter Summary ---
Author Organization [facility] Address [address] [place] [address] Care Team Providers Care Sustainable Systems Analyst Name Role Phone Linnea Escalante PA-C Primary Care Provider Maddi Ochoa RN Unavailable Source Comments In the event this information is protected by the Federal Confidentiality of Alcohol and Drug AbusePatient Records regulations: The Federal rules restrict any use of the information to criminally investigate or prosecute any alcohol or drug abuse patient.[facility] Encounter Details Date Type Department Care Team (Late st Contact Info) Description 12/27/2022 Lab Requisition [facility] [place] [address] Dequan Cortes MD [address] [place] [address] Person encountering health services to consult on behalf of another person Social History Tobacco Use Types Packs/Day Years Used Date Smoking Tobacco: Never Assessed Area Deprivation Index Answer Date Satish rded National Score (1-100), lower number is lower ri sk 76 11/18/2022 State Score (1-10), lower number is lower risk 6 11/18/2022 Data from: https://www.elin higgins.medicine.[facility]/. Last address used for calculation [address] [...] 8:00 AM EDT Office Visit Vascular Surgery [address] [place] [address] Nausea and vomiting, unspecified vomiting type [R11.2] 11/05/2024 9:00 AM EDT Nurse Visit [facility] Gastroenterology [facility] [address] [facility] [address] [place] [address] [facility], Nurse [facility] [address] [facility] [address] [place], [place] [id number] Nausea and vomiting, unspecified vomiting type [R11.2] documented as of this encounter Procedures Procedure [...] PANL Sarcoma Fusion NGS Laboratory Accession Number: [id number] Case #: [id number] Block #: A2 ([id number] 3) Sample Type: FFPET % Tumor: 95 [...] developed and its performance characteristics determined by [facility] Pathology and Laboratory Medicine [place] ([facility]). It has not been cleared or approved by the FDA. [facility] is regulated under CLIA as certified to perform high- complexity testing. This test is used for clinical purposes. It should not be regarded as investigational or for research. Testing and interpretation performed at [facility], [address] [place] [address]. CLIA Number: [id number] References: 1) Song VENTURA, Maco SANCHEZ, Imani BALDERAS, Sruthi D, joy Alvarez T, Afshin K, et al. Molecular Analysis of Gene Fusions [...] 84(6):323-338. As reviewed by Kristy Heart, PhD, [facility] 01/26/2023 12:30 PM EST [facility] Blocks or Slides PARAFFIN EMBEDDED TISSUE BLOCK SPECIMEN / Unknown 12/27/2022 10:33 AM EDT 01/17/2023 10:03 AM EST us Dequan Cortes MD LABORATORY Final Re sult [facility] [address] [facility] [place] [id number], * FISH FOR MDM2 (12/27/2022 10:33 AM EDT) FISH FOR MDM2 FISH for MDM2 Amplification Laboratory Accession Number: [id number] Block/Part ID: A2 ([id number]; 3) Case: [id number] Sample Type: FFPET Sample Description: RIGHT ABDOMINAL [...] and its performance characteristics determined by the [facility]'s Erick Rhiannon [facility] Pathology and Laboratory Medicine [place] ([facility]). It has not been cleared or approved by the FDA. [facility] is regulated under CLIA as qualified to perform high- complexity testing. This test is used for clinical purposes. It should not be regarded as investigational or for research. [place] [address]. CLIA Number: [id number] As reviewed by Justyna Fine MD, PhD 01/05/2023 5:02 PM EDT [facility] Blocks or Slides PARAFFIN EMBEDDED TISSUE BLOCK SPECIMEN / Unknown 12/27/2022 10:33 AM EDT 12/29/2022 11:41 AM EDT us Dequan Cortes MD LABORATORY Final Re sult [facility] [address] [place] [address] Desk 0 [place] [address], * SURGICAL PATHOLOGY REFERENCE LAB CONSULT (12/27/2022 10:33 AM EDT) Case Report Surgical Pathology Report Case: [id number] Authorizing Provider: Dequan Cortes MD Collected: 12/27/2022 10:33 AM Ordering Location: [facility] Received: 12/27/2022 10:29 AM [facility] Pathologist: Lori Butcher MD Specimen: SLIDE(S)/BLOCK(S), 12 SLIDES ( 3 BLOCKS 2,3,5) [id number] 01/26/2023 3:51 PM EST [facility] FINAL DIAGNOSIS Soft tissue, right abdominal wall, 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 See comment. 01/26/2023 3:51 PM [facility] at 1318 EDT Diagnosis Comment Many [...] mitotic figures. Immunohistochemical stains performed at the [facility] show that the neoplastic cells are negative for PLAG1, S100, SOX10, HMB45, SMA, desmin, CD34, CK, and STAT6. To further characterize this process, FISH was performed at the [facility] and was negative for MDM2 gene amplification. [...] and Soft Tissue Pathology Consultation Service at [phone] with questions or if additional follow-up information becomes available regarding this patient. This case was reviewed in conjunction with the Bone and Soft Tissue Pathology fellow, Dolly Johnson MD, PhD. Laboratory Developed Test (LDT) Disclaimer: Performance characteristics of immunohistochemical, immunofluorescent and chromogenic in-situ hybridization tests have been determined by the performing laboratory within [facility] s Erick Hutton Pathology and Laboratory Medicine [place] ([facility], [facility], [facility], [facility], [facility], [facility], or [facility]) in a manner consistent with CLIA requirements. One or more of these tests have not been cleared or approved by the FDA. [facility] is regulated under CLIA as qualified to perform high-complexity testing. These tests are used for clinical purposes. They should not be regarded as investigational or for research. Positive and negative controls stain appropriately. 01/26/2023 3:51 PM EST [facility] Clinical History CONSULT REQUESTED 01/26/2023 3:51 PM EST [facility] Performing Lab Diagnostic interpretation performed at [facility], [address] [place], [place] [id number] [facility]# [id number] Inspector Floor Sub Assembly: Jose Heaton M.D. 01/26/2023 3:51 PM EST [facility] Addendum The tumor cells are negative for ERG and CD31. The diagnosis remains unchanged. 01/26/2023 3:51 PM EST [facility] Addendum electronically signed by Lori Butcher MD on 01/17/2023 at 1557 EST Addendum A next-generation sequencing sarcoma fusion panel performed at the [facility] was negative for gene fusions. 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 Given the challenges in classification, the biologic behavior of this lesion is also uncertain. Complete surgical excision with negative margins and clinical follow-up monitoring for local recurrence is recommended. 01/26/2023 3:51 PM EST [facility] Addendum electronically signed by Lori Butcher MD on 01/26/2023 at 1551 EST Blocks or Slides PARAFFIN EMBEDDED TISSUE BLOCK SPECIMEN / Unknown 12/27/2022 10:33 AM EDT 12/27/2022 10:29 AM EDT us Dequan Cortes MD SURGICAL PATHOLOGY Edite d Result - Final [facility] [address] [place] [address] Desk [address] [place] [address], documented in this encounter Visit Diagnoses Diagnosis Person encountering health services to consult on behalf of another person Other person consulting on behalf of another person documented in this encounter Care Teams Sustainable Systems Analyst Relationship Specialty Start Date End Date Linnea Escalante PA-C [address] [place] [address] PCP - General Family Medicine 02/03/23 Maddi Ochoa, [place] [address] [place] [address] Specialty Office Nurse Practitioner Hematology/Oncology 02/10/23 documented as of this encounter
--- OUTSIDE RECORDS SUMMARY | 2024-10-21 17:49 | XMS_ITS | Clinical Summary ---
Author Organization [facility] Address [address] [place] [address] Phone Care Team Providers Care Property Field Inspector Name Role Phone Linnea Escalante PA-C Primary Care Provider [phone] Allergies No known active allergies Medications levothyroxine [...] Description 09/12/2024 9:00 AM EDT Office Visit [place] [address] [address] Quique Vargas MD POTS (postural orthostatic tachycardia syndrome); Postural orthostatic tachycardia syndrome (POTS); Acquired hypothyroidism; Type 2 diabetes mellitus without complication, without long-term current use of insulin; Never smoked tobacco; BMI 40.0-44.9, adult (Multi) 09/12/2024 Travel 09/05/2024 Travel 08/28/2024 Orders Only [facility] [address] [place] [address] Nidia Hughes MD 08/28/[address] [facility] [address] [place] [address] Scanning, Generic Provider 07/23/2024 Telephone [facility] [address] [address] Quique Vargas MD from Last 3 Months Immunizations Immunization Administration [...] Description 05/06/2025 8:50 AM EST Office Visit [facility] [address] [facility] [address] [place] [address] Quique Vargas MD [address] [facility] [address] [place] [address] Health Maintenance Due Date Last Done Comments Diabetes: Hemoglobin A1C 1995 Diabetes: Urine Protein Screening 1995 HIV Screening 1995 Lipid Panel 1995 TSH Level 1995 Diabetes: Retinopathy Screening 2005 DTaP/Tdap/Td Vaccines (6 - Tdap) 2006 06/30/2000, 04/24/1996, 1995, Additional history exists HPV Vaccines (2 - 2-dose series) 05/02/2008 [...] Comments TILT TABLE 08/28/2024 10:10 AM EDT from Last 3 Months Results * Tilt table (08/28/2024 10:10 AM EDT) 08/28/2024 10:1 0 AM EDT Narrative [facility] - 08/29/2024 5:18 PM EDT [facility] [place] [address] Cardiology Report Signed Patient: Yolie Martinez MR#: [id number] : 1995 Acct:[id number] Age/Sex: 29 / F ADM Date: 08/28/24 Loc: Room: Type: [facility] Attending Dr: Quique Vargas MD Copies [...] continue her long-term followup with her primary starter mechanic. Transcribed By: MARY JANE 08/28/24 1738 Dictated By: Nidia Hughes MD 08/28/24 1010 Signed By: <Electronically signed by MD Nidia Hughes> 08/29/24 1718 Nidia Hughes MD CV CARDIAC SERVICES PROCED URES Final Result [facility] [address] [place] [id number], from Last 3 Months Insurance [facility] Care Teams Property Field Inspector Relationship Specialty Start Date End Date Linnea Escalante PA-C [address] [place] [address] PCP - General Internal Medicine 04/16/24
--- OUTSIDE RECORDS SUMMARY | 2024-10-21 17:49 | XMS_ITS | Encounter Summary ---
Author Organization [facility] Address [address] [place] [address] Care Team Providers Care Hand Winder Name Role Phone Nickolas Isaacs MD Primary Care Provider [phone] Linnea Escalante Unavailable [phone] Encounter Details Date Type Department Care Team (Latest Contact Info) Description 10/21/2024 Travel Social History Tobacco Use Types Packs/Day [...] any clubs o r organizations such as hinduism groups, unions, fraternal or athletic groups, or [...] medical care, and heating? Somewhat hard 10/08/2024 [facility] [place] of Occupat ional Health - Occupational Stress [...] in a retirement (including now)? No 08/01/2022 Housing Stability Vital [...] time in the past 12 m [facility], were you homeless or living in a retirement (including now)? No 10/08/2024 Comments No Sex [...] EDT Office Visit [facility] [place] [facility] [address] [place] [address] Db Keane DO [address] [facility] [place] [address] 12/20/2024 8:00 AM EDT Office Visit [facility] [place] [facility] [address] [place] [address] Linnea Escalante PA [address] [place] [address] documented as of this encounter Visit Diagnoses Not on filedocumented in this encounter Care Teams Hand Winder Relationship Specialty Start Date End Date Nickolas Isaacs MD [address] [place] [address] PCP - General Family Medicine 09/28/22 Linnea Escalante PA [address] [place] [address] Physician Endbander Family Medicine 09/28/22 documented as of this encounter
--- OUTSIDE RECORDS SUMMARY | 2024-10-21 17:49 | XMS_ITS | Encounter Summary ---
Author Organization [facility] Address [address] [facility] [place] [address] Care Team Providers Care Shift Boss Name Role Phone Linnea Escalante Unavailable [phone] Nickolas Isaacs MD Primary Care Provider [phone] Linnea Escalante Unavailable [phone] Encounter Details Date Type Department Care Team (Late st Contact Info) Description 01/16/2023 Abstract [facility] [address] [place] [address] Linnea Escalante PA [address] [place] [address] Social History Tobacco Use Types Packs/Day Years [...] often do you attend chur ch or cheondoism services? 1 to 4 times per year 08/02/2022 Do you belong to any clubs o r organizations such as adventism groups, unions, fraternal or athletic groups, or [...] medical care, and heating? Somewhat hard 08/01/2022 [facility] of Occupat ional [facility] - Occupational Stress Questionnaire Answer Date Recorded [...] PM EDT Office Visit JAIME DIAZ [address] [place] [address] Db Keane DO [address] [facility] [place] [address] 12/20/2024 8:00 AM EDT Office Visit [facility] [address] [place] [address] Linnea Escalante PA [address] [place] [address] documented as of this encounter Visit Diagnoses Not on filedocumented in this encounter Care Teams Shift Boss Relationship Specialty Start Date End Date Linnea Escalante PA [address] [place] [address] PCP - Medical [employer] 08/11/22 10/03/23 Nickolas Isaacs MD [address] [place] [address] PCP - General Family Medicine 09/28/22 Linnea Escalante PA [address] [place] [address] Physician Headliner Installer Family Medicine 09/28/22 documented as of this encounter
--- OUTSIDE RECORDS SUMMARY | 2024-10-21 17:49 | XMS_ITS | Encounter Summary ---
Author Organization [facility] Address [address] [place] [address] Phone Care Team Providers Care Mortgage Collector Name Role Phone Linnea Escalante PA-C Primary Care Provider [phone] Encounter Details Date Type Department Care Team (Late st Contact Info) Description 1995 Scanned Document [facility] [address] [place] [address] Scanning, Generic Provider Social History Tobacco Use [...] Description 05/06/2025 8:50 AM EST Office Visit [facility] [address] [facility] [address] [place] [address] Quique Vargas MD [address] [facility] [address], [address] [place], [place] [address] documented as of this encounter Visit Diagnoses Not on filedocumented in this encounter Care Teams Mortgage Collector Relationship Specialty Start Date End Date Linnea Escalante PA-C [address] [place] [address] PCP - General Internal Medicine 04/16/24 documented as of this encounter
--- OUTSIDE RECORDS SUMMARY | 2024-10-21 17:49 | XMS_ITS | Encounter Summary ---
Author Organization [facility] Address [address] [place] [address] Care Team Providers Care Truss Builder Name Role Phone Linnea Escalante PA-C Primary Care Provider Maddi Ochoa RN Unavailable Source Comments In the event this information is protected by the Federal Confidentiality of Alcohol and Drug AbusePatient Records regulations: The Federal rules restrict any use of the information to criminally investigate or prosecute any alcohol or drug abuse patient.[facility] Encounter Details Date Type Department Care Team (Late st Contact Info) Description 09/03/2024 Results Follow-Up Ambulatory Surgery [address] [place], [place] [phone] [place] [address] [place] [address] Social History Tobacco Use Types [...] 6 11/18/2022 Data from: https://www.neigh marihoodatrosa.medicine.[facility]/. Last address used for calculation 24 [...] AM EDT Office Visit Vascular Surgery [address] [place] [address] Nausea and vomiting, unspecified vomiting type [R11.2] 11/05/2024 9:00 AM EDT Nurse Visit [facility] Gastroenterology [facility] [address] [facility] [address] [place] [address] [facility], Nurse [facility] [address] [facility] [address] [place], [place] [address] Nausea and vomiting, unspecified vomiting type [R11.2] documented as of this encounter Visit Diagnoses Not on filedocumented in this encounter Care Teams Truss Builder Relationship Specialty Start Date End Date Linnea Escalante PA-C [address] [place] [address] PCP - General Family Medicine 02/03/23 [place] [address] [place] [address] Specialty Blueprint Reproducer Hematology/Oncology 02/10/23 documented as of this encounter
--- OUTSIDE RECORDS SUMMARY | 2024-10-21 17:49 | XMS_ITS | Encounter Summary ---
Author Organization [facility] Address [address] [place] [address] Care Team Providers Care Water Chaser Name Role Phone Linnea Escalante PA-C Primary Care Provider Maddi Ochoa RN Unavailable Source Comments In the event this information is protected by the Federal Confidentiality of Alcohol and Drug AbusePatient Records regulations: The Federal rules restrict any use of the information to criminally investigate or prosecute any alcohol or drug abuse patient.[facility] Encounter Details Date Type Department Care Team (Late st Contact Info) Description 09/30/2024 Results Follow-Up Gastroenterology [address] [address] [place], [place] [phone] Irma Nava APRN.JANITORIAL TECH [address] [facility] [facility] [address] [place], [place] [address] Social History Tobacco Use Types Packs/Day Years Used Date Smoking Tobacco: Never Smokeless Tobacco: Never Alcohol Use Standard Drinks/Week Comments Never 0 (1 standard drink = 0.6 oz pur e alcohol) Area Deprivation Index Answer Date Satish rded National Score (1-100), lower number is lower ri sk 76 11/18/2022 State Score (1-10), lower number is lower risk 6 11/18/2022 Data from: https://www.neigh marihoodatrosa.medicine.[facility]/. Last address used for calculation [address] [...] AM EDT Office Visit Vascular Surgery [address] [place] [address] Nausea and vomiting, unspecified vomiting type [R11.2] 11/05/2024 9:00 AM EDT Nurse Visit [facility] Gastroenterology [facility] [address] [facility] [address] [place] [address] [facility], Nurse [facility] [address] [facility] [address] [place], [place] [phone] Nausea and vomiting, unspecified vomiting type [R11.2] documented as of this encounter Visit Diagnoses Not on filedocumented in this encounter Care Teams Water Chaser Relationship Specialty Start Date End Date Linnea Escalante PA-C [address] [place] [address] PCP - General Family Medicine 02/03/23 [place] [address] [place] [address] Hematology/Oncology 02/10/23 documented as of this encounter
--- OUTSIDE RECORDS SUMMARY | 2024-10-21 17:49 | XMS_ITS | Encounter Summary ---
Author Organization [facility] Address [address] [facility] [place] [address] Care Team Providers Care Larriman Name Role Phone Nickolas Isaacs MD Primary Care Provider [phone] Linnea Escalante Unavailable [phone] Encounter Details Date Type Department Care Team (Late st Contact Info) Description 10/14/2024 Results Follow-Up [facility] [place] [facility] [address] [place] [address] Linnea Escalante PA [address] [place] [address] Social History Tobacco Use Types Packs/Day Years [...] any clubs o r organizations such as pentecostal groups, unions, fraternal or athletic groups, or [...] medical care, and heating? Somewhat hard 10/08/2024 [facility] of Occupat ional Health - [...] in a intermediate (including now)? No 08/01/2022 Housing Stability Vital Sign Answer Bryan e Recorded In the last 12 months, was t here a time when you were not able to pay the mortgage or rent on time? No 10/08/2024 In the past 12 months, how m any times have you moved where you were living? 1 10/08/2024 At any time in the past 12 m [facility], were you homeless or living in a intermediate (including now)? No 10/08/2024 Comments No Sex [...] PM EDT Office Visit [facility] [address] [place] [phone] Db Keane, [address] [facility] [address] [place] [place], [place] [address] 12/20/2024 8:00 AM EDT Office Visit [facility] [address] [place] [address] Linnea Escalante PA [address] [place] [address] documented as of this encounter Visit Diagnoses Not on filedocumented in this encounter Care Teams Larriman Relationship Specialty Start Date End Date Nickolas Isaacs MD [address] [place] [address] PCP - General Family Medicine 09/28/22 Linnea Escalante PA [address] [place] [address] Physician Hospital Pharmacy Director Family Medicine 09/28/22 documented as of this encounter
--- OUTSIDE RECORDS SUMMARY | 2024-10-21 17:49 | XMS_ITS | Encounter Summary ---
Author Organization [facility] Address [address] [place] [address] Care Team Providers Care Human Relations Professor Name Role Phone Linnea Escalante Unavailable [phone] Nickolas Isaacs MD Primary Care Provider [phone] Linnea Escalante Unavailable [phone] Encounter Details Date Type Department Care Team (Late st Contact Info) Description 11/17/2022 Clinisync Result Encounter [facility] External Department Unsolicited Rafael Keane, DO [address] [facility] [place] [address] Social History Tobacco Use Types Packs/Day Years [...] often do you attend chur ch or nondenominational services? 1 to 4 times per year 08/02/2022 Do you belong to any clubs o r organizations such as nondenominational groups, unions, fraternal or athletic groups, or [...] medical care, and heating? Somewhat hard 08/01/2022 [facility] [place] of Occupat ional Health - Occupational Stress [...] place to sleep or slept in a longterm (including now)? No 08/01/2022 Comments No Sex [...] DIAZ [address] [place] [address] Rafael Keane DO [address] [place], [place] [id number] 12/20/2024 8:00 AM EDT Office Visit [facility] [address] [place] [address] Linnea Escalante PA [address] [place] [address] documented as of this encounter Procedures Procedure Name Priority Date/Time Associated Diagnosis Comments US PELVIS W/ TRANSVAGINAL 11/17/2022 3:41 PM EDT documented in this encounter Results * US PELVIS W/ TRANSVAGINAL (11/17/2022 3:41 PM EDT) Anatomical Region Laterality Modality Other 11/17/2022 3:41 PM EDT Narrative 11/17/2022 3:41 [place] [address] Ultrasound Report Signed Patient: ADINA MARTINEZ MR#: [id number] : 1995 Acct:[id number] Age/Sex: 27 / F ADM Date: 11/17/22 Loc: US Attending Dr: Rafael Keane D.O. Ordering Physician: Rafael Keane D.O. Date of Service: 11/17/22 Procedure(s): US pelvis w/ transvaginal Accession Number(s): [id number] cc: Rafael Keane D.O.; Physician,Non-Staff M.[facility] [place] [id number] Patient Name: ADINA MARTINEZ MRN: [id number] date: 1995 Sex: F Assigned Patient Location: Current Patient Location: Accession/Order Number: [id number] Exam Date: 11/17/2022 14:33 Report Date: 11/17/2022 [...] Signed By: 11/17/22 1544 DD/ 1541 TD/TT: Die Presser: Procedure Note Radiology, Radiologist, MD - 12/02/2022 [place] [address] Ultrasound Report Signed Patient: ADINA MARTINEZMR#: [id number] : 1995Acct:[id number] Age/Sex: 27 / FADM Date: 11/17/22 Loc: US Attending Dr: Rafael Keane D.O. Ordering Physician: Rafael Keane D.O. Date of Service: 11/17/22 Procedure(s): US pelvis w/ transvaginal Accession Number(s): [id number] cc: Rafael Keane D.O.; Physician,Non-Staff [place] [facility] [place] [id number] Patient Name: ADINA MARTINEZ MRN: [id number] date: 1995 Sex: F Assigned Patient Location: Current Patient Location: US Accession/Order Number: [id number] Exam Date: 11/17/2022 14:33 Report Date: 11/17/2022 [...] M.D. Signed By:11/17/22 1544 DD/ 1541 TD/TT: Die Presser: us Rafael Diya DO [facility] Final Result documented in this encounter Visit Diagnoses Not on filedocumented in this encounter Care Teams Human Relations Professor Relationship Specialty Start Date End Date Linnea Escalante PA [address] [place] [address] PCP - Medical [place] [employer] 08/11/22 10/03/23 Nickolas Isaacs MD [address] [place] [address] PCP - General Family Medicine 09/28/22 Linnea Escalante PA [address] [place] [address] Physician Pocketbook Maker Family Medicine 09/28/22 documented as of this encounter
--- OUTSIDE RECORDS SUMMARY | 2024-10-21 17:49 | XMS_ITS | Encounter Summary ---
Author Organization [facility] Address [address] [place] [address] Phone Care Team Providers Care Space Operations Name Role Phone Linnea Escalante PA-C Primary Care Provider [phone] Encounter Details Date Type Department Care Team (Late st Contact Info) Description 08/28/2024 Scanned Document [facility] [address] [place] [phone] Scanning, Generic Provider Social History Tobacco Use [...] Office Visit [facility] [address] [facility] [address] [place] [address] Quique Vargas MD [address] [facility] [address] [place] [address] documented as of this encounter Visit Diagnoses Not on filedocumented in this encounter Care Teams Space Operations Relationship Specialty Start Date End Date Linnea Escalante PA-C [address] [place] [address] PCP - General Internal Medicine 04/16/24 documented as of this encounter
--- OUTSIDE RECORDS SUMMARY | 2024-10-21 17:49 | XMS_ITS | Encounter Summary ---
Author Organization [facility] Address [address] [place] [address] Phone Care Team Providers Care Communication Analyst Name Role Phone Linnea Escalante PA-C Primary Care Provider [phone] Encounter Details Date Type Department Care Team (Late st Contact Info) Description 12/06/2023 Scanned Document [facility] [address] [place] [phone] Scanning, Generic Provider Social History Tobacco Use [...] Description 05/06/2025 8:50 AM EST Office Visit [facility] [address] [phone] Quique Vargas MD [address] [facility] [address] [place] [address] documented as of this encounter Procedures Procedure Name Priority Date/Time Associated Diagnosis Comments OUTSIDE IMAGING SCAN 12/06/2023 documented in this encounter Results * OUTSIDE IMAGING SCAN (12/06/2023) Anatomical Region Laterality Modality Other Narrative 12/06/2023 Ordered by an unspecified provider. us Generic Provider Scanning OUTSIDE SCAN Final Result documented in this encounter Visit Diagnoses Not on filedocumented in this encounter Care Teams Communication Analyst Relationship Specialty Start Date End Date Linnea Escalante, KADY [address] [place] [address] PCP - General Internal Medicine 04/16/24 documented as of this encounter
--- OUTSIDE RECORDS SUMMARY | 2024-10-21 17:49 | XMS_ITS | Encounter Summary ---
Author Organization [facility] Address [address] [place] [address] Phone Care Team Providers Care Economics Instructor Name Role Phone Linnea Escalante PA-C Primary Care Provider [phone] Encounter Details Date Type Department Care Team (Late st Contact Info) Description 04/16/2024 Scanned Document [facility] [address] [place] [phone] Scanning, Generic Provider Social History Tobacco Use [...] Description 05/06/2025 8:50 AM EST Office Visit [facility] [address] [facility] [address] [place] [phone] Quique Vargas MD [address] [facility] [address], [address] [place], [place] [phone] documented as of this encounter Visit Diagnoses Not on filedocumented in this encounter Care Teams Economics Instructor Relationship Specialty Start Date End Date Linnea Escalante PA-C [address] [place] [address] PCP - General Internal Medicine 04/16/24 documented as of this encounter
--- OUTSIDE RECORDS SUMMARY | 2024-10-21 17:49 | XMS_ITS | Encounter Summary ---
Author Organization [facility] Address [address] [address] Care Team Providers Care Fire And Explosion Investigator Name Role Phone Linnea Escalante Unavailable [phone] Nickolas Isaacs MD Primary Care Provider [phone] Linnea Escalante Unavailable [phone] Encounter Details Date Type Department Care Team (Late st Contact Info) Description 07/17/2023 Orders Only [facility] [address] [place] [address] Isi Witt MA Social History Tobacco Use [...] any clubs o r organizations such as protestant groups, unions, fraternal or athletic groups, or [...] medical care, and heating? Somewhat hard 08/01/2022 [facility] [place] of Occupat ional Health - Occupational Stress [...] place to sleep or slept in a jail (including now)? No 08/01/2022 Comments No Sex and Gender Information Value Date Recorded Sex Assigned at Female 08/01/2022 4:36 PM EDT Legal Sex Female 7:27 PM EDT Gender Identity Female 05/25/2022 7:27 PM EDT Sexual Orientation Straight 08/03/2022 8 :31 PM EDT documented as of this encounter Plan of Treatment Upcoming Encounters Date Type Department Care Team (Late st Contact Info) Description 10/23/2024 3:00 PM EDT Office Visit [facility] [address] [place] [address] Db Keane DO [address] [facility] [address] [place] [address] 12/20/2024 8:00 AM EDT Office Visit [facility] [address] [place] [address] Linnea Escalante PA [address] [place] [address] documented as of this encounter Visit Diagnoses Not on filedocumented in this encounter Care Teams Fire And Explosion Investigator Relationship Specialty Start Date End Date Linnea Escalante PA [address] [place] [address] PCP - Medical [facility] 08/11/22 10/03/23 Nickolas Isaacs MD [address] [place] [address] PCP - General Family Medicine 09/28/22 iLnnea Escalante PA [address] [place] [address] Physician Trouble Shooter Family Medicine 09/28/22 documented as of this encounter
--- OUTSIDE RECORDS SUMMARY | 2024-10-21 17:50 | XMS_ITS | Encounter Summary ---
Author Organization [facility] Address [address] [place] [address] Care Team Providers Care Driver Manager Name Role Phone Linnea Hackett Unavailable [phone] Nickolas Isaacs MD Primary Care Provider [phone] Linnae Hackett Unavailable [phone] Encounter Details Date Type Department Care Team (Late st Contact Info) Description 08/01/2023 Clinisync Result Encounter [facility] External Department Unsolicited Linnea Hackett PA [address] [place], [place] [id number] Social History Tobacco Use Types Packs/Day Years [...] often do you attend chur ch or oriental orthodox services? 1 to 4 times per year 08/02/2022 Do you belong to any clubs o r organizations such as orthodox groups, unions, fraternal or athletic groups, or [...] medical care, and heating? Somewhat hard 08/01/2022 [facility] of Occupat ional Health - [...] a long term (including now)? No 08/01/2022 Comments No Sex [...] PM EDT Office Visit [facility] DIAZ [address] [place] [phone] Db Keane DO [address] [place], [place] [id number] 12/20/2024 8:00 AM EDT Office Visit [facility] [address] [place] [address] Linnea Hackett PA [address] [place] [address] documented as of this encounter Procedures Procedure [...] on filedocumented in this encounter Care Teams Driver Manager Relationship Specialty Start Date End Date Linnea Hackett PA [address] [place] [address] PCP - Medical [place] [employer] 08/11/22 10/03/23 Nickolas Isaacs MD [address] [place] [address] PCP - General Family Medicine 09/28/22 Linnea Hackett PA [address] [place] [address] Physician Manager Wellness Family Medicine 09/28/22 documented as of this encounter
[2024-10-21 19:19] VITALS: BP 136/98; PULSE 68; TEMP 36.7; O2SAT 98
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
--- NOTE | 2024-10-21 19:31 | ED.GENADUL1 ---
HPI HPI - General Adult General Chief complaint: Extremity Injury, Upper Stated complaint: SHOULDER PAIN; R, BACK PAIN, R ARM PAIN/TINGLING Time Seen by Provider: 10/21/24 19:14 Source: patient Mode of arrival: walk-in History of Present Illness HPI narrative: The patient is a very pleasant 29-year-old female with a history of a sarcoma who in 2022, who presents to the emergency department secondary to right upper extremity pain. She has pain in her right shoulder, right scapular area, and right side of the neck that radiates down her right arm. It feels numb and tingly. It also feels swollen. She has decreased range of motion in her fingers as a result of the swelling. She has never had a history of a DVT or PE. She denies any history of injury. The patient indicates to me that she has not had any direct trauma to the right upper extremity. Pain is moderate in severity. Nothing has made it better. Touching it makes it exquisitely worse. No history of previous injury. Related Data Home Medications ?Medication ?Instructions ?Recorded ?Confirmed levothyroxine 112 mcg tablet 112 mcg PO DAILY 09/16/24 09/16/24 metformin 500 mg tablet,extended 500 mg PO DAILY 09/16/24 09/16/24 release 24 hr omeprazole 20 mg capsule,delayed 20 mg PO Q8H 09/16/24 09/16/24 release Previous Rx's ?Medication ?Instructions ?Recorded hydrocodone 5 mg-acetaminophen 325 1 tab PO Q4H PRN pain #10 tabs 09/16/24 mg tablet naproxen 500 mg tablet (Naprosyn) 500 mg PO BID PRN pain #20 tabs 09/16/24 cyclobenzaprine 5 mg tablet 5 mg PO TID PRN muscle spasm #14 10/22/24 tabs hydrocodone 5 mg-acetaminophen 325 1 tab PO Q6H PRN pain #10 tabs 10/22/24 mg tablet prednisone 10 mg tablet 10 mg PO DAILY #30 tabs 10/22/24 Allergies Allergy/AdvReac Type Severity Reaction Status Date / Time bee venom protein (honey bee) Allergy Severe Anaphylaxis Verified 09/16/24 21:51 raspberry Allergy Mild Anaphylaxis Verified 09/16/24 21:51 Opioid HPI Opioid Management Most Recent Opioid Data: Last Pain Scale 5 Today, 00:34 Last ED Pain Assessment 10/21/24, 19:30 Last MAR Pain Assessment 10/21/24, 20:30 Review of Systems ROS Status of ROS 10 or more systems reviewed and unremarkable except as noted in history and below [facility] Medical History Gall bladder disease ?K82.9 - Disease of gallbladder, unspecified (ICD-10) Mast cell activation, 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, unspecified (ICD-10) Hypothyroid ?E03.9 - Hypothyroidism, unspecified (ICD-10) 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) Cholecystitis ?K81.9 - Cholecystitis, unspecified (ICD-10) PCOS (polycystic ovarian syndrome) ?E28.2 - Polycystic ovarian syndrome (ICD-10) Sarcoma ?C49.9 - Malignant neoplasm of connective and soft tissue, unspecified (ICD-10) Surgical History (Updated 09/16/24 @ 22:18 by Haily Cabrera DO) H/O right knee surgery ?Z98.890 - Other specified postprocedural states (ICD-10) Social History Little interest or pleasure in doing things: not at all Feeling down, depressed, or hopeless: not at all Exam Narrative Exam Narrative: Prior to examining the patient, I have washed with hospital approved and provided Antiseptic Hand Instrument Mechanics Supervisor and have also applied gloves.? Prior to touching the patient, I asked for consent to examine the patient.? General: Alert and oriented, well nourished, mild distress. Eye: PERRL, EOMI, normal conjunctiva. HENT: Normocephalic, normal hearing, moist oral mucosa, no scleral icterus, Neck: Supple, tender along the right sternocleidomastoid muscle and trapezius, no lymphadenopathy. No midline point tenderness. Lungs: Clear to auscultation and percussion, non-labored respiration. Heart: Normal rate, regular rhythm, no murmur, gallop or edema. Musculoskeletal: Exquisite tenderness to palpation of the right paraspinal musculature of the right shoulder including the scapula, rhomboids, and lats. Skin: Skin is warm, dry and pink, no rashes or lesions. Neurologic: Awake, alert, and oriented X3, CN II-XII intact. No weakness to the upper extremity. But pain is elicited. Psychiatric: Cooperative, appropriate mood and affect.? Following the conclusion of the examination, I have washed my hands thoroughly after removing examination gloves. Constitutional Vital Signs, click to edit/add: Last Vital Signs Temp 98.1 F 10/21/24 19:19 Pulse 68 10/21/24 19:19 Resp 16 10/21/24 19:19 BP 136/98 H 10/21/24 19:19 Pulse Ox 98 10/21/24 19:19 O2 Del Method Room Air 10/21/24 17:45 Course Course Hospital Course: Patient was seen and evaluated in the emergency department. She received an injection of orphenadrine 60 mg IM and Toradol 30 mg IM. She had 1 tablet of [place]. She was doing well. X-ray was found to be unremarkable. When she was waiting for the ultrasound, 4 hours, the pain returned to a 5 out of 10. She was given a second tab of [place] and Flexeril 5 mg by mouth. Vital Signs Vital signs: Vital Signs Temperature 97.9 F 10/21/24 17:45 Pulse Rate 83 10/21/24 17:45 Respiratory Rate 20 10/21/24 17:45 Blood Pressure 133/84 10/21/24 17:45 Pulse Oximetry 100 10/21/24 17:45 Oxygen Delivery Method Room Air 10/21/24 17:45 Temperature 98.1 F 10/21/24 19:19 Pulse Rate 68 10/21/24 19:19 Respiratory Rate 16 10/21/24 19:19 Blood Pressure 136/98 H 10/21/24 19:19 Pulse Oximetry 98 10/21/24 19:19 Oxygen Delivery Method Room Air 10/21/24 17:45 Medical Decision Making MDM Narrative Medical decision making narrative: Patient is a 29-year-old female who presents to the emergency room with right upper extremity pain in the absence of any injury. This ogeuy-lclm-vulmzuwu female stated that she was having pain that radiated from her neck down into her shoulder and down her arm and then portions of her upper back were also involved and exquisitely tender to touch. X-ray was negative. Ultrasound is negative for DVT. My expectation for the patient is for her to follow-up with her primary care physician. 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 A CT scan may be the next best thing but does not have to be done on an emergent basis tonight. This can be done as an outpatient. At this time, we can get the patient's pain under control and hopefully with additional use of steroids will help to bring the nerve inflammation under control. Differential Diagnosis Differential Diagnosis: Fracture, dislocation, subluxation, complex regional pain syndrome, muscle Medical Records Medical records reviewed: Yes I reviewed the patient's medical records Imaging Data Xray shoulder: Attestation: I have reviewed the pertinent imaging results. Radiologist's impression: ITS Impressions Shoulder X-Ray 10/21/24 19:30 IMPRESSION: No acute findings. Impression dictated by: Ruy Merida M.D. 10/21/2024 8:36 PM Dictation Location: [facility] Electronically authenticated by: [id number] Y Date: 10/21/2024 20:36 Ultrasound was interpreted by board-certified radiologist and revealed that there is no evidence of DVT. Discharge Plan Discharge Chief Complaint: Extremity Injury, Upper Clinical Impression: Cervical radiculopathy Patient Disposition: Home, Self-Care Time of Disposition Decision: 00:57 Condition: Good Mode of Transportation: Private Vehicle Prescriptions / Home Meds: New hydrocodone-acetaminophen 5-325 mg tablet 1 tab PO Q6H PRN (Reason: pain) Qty: 10 0RF prednisone 10 mg tablet 10 mg PO DAILY Qty: 30 0RF Rx Instructions: 4 tabs x 3 days then 3 tabs x 3 days then 2 tabs x 3 days then 1 tab x 3 days cyclobenzaprine 5 mg tablet 5 mg PO TID PRN (Reason: muscle spasm) Qty: 14 0RF No Action omeprazole 20 mg capsule,delayed release(DR/EC) 20 mg PO Q8H metformin 500 mg tablet extended release 24 hr 500 mg PO DAILY levothyroxine 112 mcg tablet 112 mcg PO DAILY naproxen [Naprosyn] 500 mg tablet 500 mg PO BID PRN (Reason: pain) Qty: 20 0RF hydrocodone-acetaminophen 5-325 mg tablet 1 tab PO Q4H PRN (Reason: pain) Qty: 10 0RF Print Language: Hebrew Instructions: Cervical Radiculopathy (ED) Referrals: KYLER HACKETT [Primary Care Provider, Family Practice] - 1 week
[2024-10-21] MEDS: HYDROCODONE/ACET 5-325 MG TABLET 1 TAB PO (20:30)
[2024-10-21] MEDS: KETOROLAC TROMETHAMINE 30 MG/ML VIAL IM (20:31)
[2024-10-21] MEDS: ORPHENADRINE 60 MG/2 ML VIAL IM (20:31)
[2024-10-22] MEDS: HYDROCODONE/ACET 5-325 MG TABLET 1 TAB PO (00:34)
[2024-10-22] MEDS: CYCLOBENZAPRINE HCL 10 MG TABLET 5 MG PO (00:35)
[2024-10-22 01:03] VITALS: BP 132/88; O2SAT 98
== END 2024-10-22 01:06 | disposition home or self-care (01) ==
PROVIDERS: Emergency Provider Emergency Medicine; PCP Physician Assistant
DX: M54.12 Radiculopathy, cervical region (principal); M25.511 Pain in right shoulder; R20.2 Paresthesia of skin; R60.0 Localized edema
CPT/HCPCS: 73030; 93971; 96372; 99284; J1885; J2360

== ENCOUNTER 2024-10-23 18:59 | Outpatient (REF) | payer OTHER, SELFPAY ==
--- OUTSIDE RECORDS SUMMARY | 2024-10-14 12:20 | XMS_ITS | Encounter Summary ---
Author Organization [facility] Address [address] [facility] [place] [address] Care Team Providers Care Inspector Machine [employer] Name Role Phone Nickolas Isaacs MD Primary Care Provider [phone] Linnea Escalante Unavailable [phone] Encounter Details Date Type Department Care Team (Late st Contact Info) Description 10/14/2024 12:20 PM EDT Office Visit [facility] [address] [place] [id number] Linnea Escalante PA [address] [place] [address] Preventative health care (Primary Dx) Social History Tobacco Use Types Packs/Day Years [...] material from your doctor or pharmacy? Never 10/08/2024 Humiliation, Afraid, Rape, and Kick questionnair e Answer Date Recorded Within the last year, have y ou been afraid of your partner or ex-partner? No 10/08/2024 Within the last year, have y ou been humiliated or emotionally abused in other ways by your partner or ex-partner? No Within the last year, have y ou been kicked, hit, slapped, or otherwise physically hurt by your partner or ex-partner? No 10/08/2024 Within the last year, have y ou been raped or forced to have any kind of sexual activity by your partner or ex-partner? No 10/08/2024 Social Connection and Isolat ion Panel [NHANES] Answer Date Recorded In a typical week, how many times do you talk on the phone with family, friends, or neighbors? More than three times a week 10/08/2024 How often do you get togethe r with friends or relatives? Three times a week 10/08/2024 How often do you attend chur or church services? 1 to 4 times per year 10/08/2024 Do you belong to any clubs o r organizations such as restorationism groups, unions, fraternal or athletic groups, or school groups? No 10/08/2024 How often do you attend meet ings of the clubs or organizations you belong to? Never 10/08/2024 Are you , , di vorced, , never , or living with a partner? Never 10/08/2024 AUDIT-C Answer Date Recorded Q1: How often do you have a drink containing alcohol? Never 10/08/2024 Q2: How many drinks containi ng alcohol do you have on a typical day when you are drinking? Patient does not drink Q3: How often do you have si x or more drinks on one occasion? Never 10/08/2024 Overall Financial Resource Strain (CARDIA) Answe r Date Recorded How hard is it for you to pa y for the very basics like food, housing, medical care, and heating? Somewhat hard 10/08/2024 [facility] - Occupational Stress Questionnaire Answer Date Recorded Do you feel stress - tense, restless, nervous, or anxious, or unable to sleep at night because your mind is troubled all the time - these days? Only a little 10/08/2024 Exercise Vital Sign Answer Date Recorde d On average, how many days pe r week do you engage in moderate to strenuous exercise (like a brisk walk)? 4 days 10/08/2024 On average, how many minutes do you engage in exercise at this level? 40 min 10/08/2024 Hunger Vital Sign Answer Date Recorded Within the past 12 months, y ou worried that your food would run out before you got the money to buy more. Never true 10/09/19 25 Within the past 12 months, t he food you bought just didn't last and you didn't have money to get more. Never true 10/08/2024 PRAPARE - Transportation Answer Date Re corded In the past 12 months, has l ack of transportation kept you from medical appointments or from getting medications? No 09/11 In the past 12 months, has l ack of transportation kept you from meetings, work, or from getting things needed for daily living? No 10/08/2024 Housing Stability Vital Sign Answer Bryan e [...] a senior living (including now)? No 08/01/2022 Housing Stability Vital Sign Answer Bryan e Recorded In the last 12 months, was t here a time when you were not able to pay the mortgage or rent on time? No 10/08/2024 In the past 12 months, how m any times have you moved where you were living? 1 10/08/2024 At any time in the past 12 m [facility], were you homeless or living in a senior living (including now)? No 10/08/2024 Comments No Sex and Gender Information Value Date Recorded Sex Assigned at Female 08/01/2022 4:36 PM EDT Legal Sex Female 7:27 PM EDT Gender Identity Female 05/25/2022 7:27 PM EDT Sexual Orientation Straight 08/03/2022 8: 31 PM EDT documented as of this encounter Last Filed Vital Signs Vital Sign Reading Time Taken Comments Blood Pressure 118/82 10/14/2024 12:05 PM EDT Pulse 84 10/14/2024 12:05 PM EDT Temperature 36.5 C (97.7 F) 10/14/2024 12:05 PM EDT Respiratory Rate - - Oxygen Saturation 99% 10/14/2024 12:05 PM EDT Inhaled Oxygen Concentration - - Weight 127 kg (279 lb) 10/14/2024 12:05 PM EDT Height 172.7 cm (5' 8 ) 10/14/2024 12:05 PM EDT Body Mass Index 42.42 10/14/2024 12:05 PM EDT documented in this encounter Progress Notes * DARIN Mclean - 10/14/2024 12:20 PM EDT Images from the original note were not included. Yolie Martinez is a 29 y.o. female presents with chief complaint of No chief complaint on file. HPI: History of Present Illness The patient is a 29-year-old female who presents for her annual wellness physical. She has been experiencing difficulty with eating, which led to a consultation with a welding setter. This specialist referred her to a motility expert at the [facility]. She underwent an EGD and colonoscopy, which revealed esophagitis and diverticulosis. She was also diagnosed with acid reflux and prescribed pantoprazole, which has significantly improved her condition. A gastric emptying study was conducted, and the results were normal. However, she continues to experience daily vomiting without weight loss, severe bloating, and abdominal hardness and pain during bloating episodes. She is scheduled for a SIBO glucose breath test and a mesenteric ultrasound on 10/31/2024 and respectively to rule out any pressure on her celiac artery. She is currently taking omeprazole 40 mg and Zofran as needed, and was previously on Reglan. She had a tilt table test performed by her manager treasury, who initially suspected orthostatic hypotension. However, based on the tilt table results and her heart rate over the past year, he now believes she may have POTS. During the tilt table test, her blood pressure was recorded as 70/40. She was prescribed metoprolol 100 mg twice daily, which has been beneficial. Her manager treasury also advised her to monitor for reactive hypoglycemia due to previous episodes of low blood sugar. She has been checking her blood sugar twice daily. A few weeks ago, while assistingwith a move, her blood sugar dropped to 48, causing dizziness and near fainting. She carries a backpack with all her medications, including a glucometer and an oxygen device. She has been unable to donate blood due to consistently low iron levels. Her hemoglobin level was satisfactory during her last work physical, which was surprising as it typically ranges from 8 to 9. 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 metoclopramide (REGLAN) 5 mg, Every 6 hours PRN omeprazole (PRILOSEC) 20 mg, Daily RT pantoprazole (PROTONIX) 40 mg, Daily promethazine-dextromethorphan (Phenergan-DM) 6.25-15 MG/5ML syrup 5 mL, Oral, Every 6 hours PRN ALLERGIES: Allergies Allergen Reactions Bee Venom Hives and Anaphylaxis Raspberry Rash and Anaphylaxis Other Unknown Food Rash Pt allergic to berries Review of Systems General: Denies fever, chills, fatigue, CLAUDIO or weight loss/gain CV: Denies CP, palpitations or swelling in legs Resp: denies cough, SOB or wheezing GI: Denies abd pain/n/v/c/d Skin: Denies rash Neuro: Denies LH or dizziness Medical, Surgical, Family, and Social History reviewed. OBJECTIVE: Visit Vitals BP 118/82 (BP Location: Right arm, Patient Position: Sitting, BP Cuff Size: Large adult) Pulse 84 Temp 97.7 ??F (Temporal) Ht 5' 8 Wt 279 lb SpO2 99% BMI 42.42 kg/m?? OB Status Having periods Smoking Status Never BSA 2.47 m?? BP Readings from Last 3 Encounters: 10/14/24 118/82 07/08/24 124/82 04/16/24 114/78 Wt Readings from Last 3 Encounters: 10/14/24 279 lb 07/08/24 273 lb 3.2 oz 04/16/24 283 lb 9.6 oz Physical Exam Physical Exam Other: Blood pressure reading is 118/80. General: alert & oriented, NAD Head: NC/AT Oral Cavity: MMM Skin: warm, dry Heart: RRR, No m/r/g, S1S2 nml Lungs: CTA b/l Abdomen: soft, ND/NT, BS wnl Musculoskeletal: normal gait Extremities: no clubbing, cyanosis or edema Neurological: nonfocal Psych: mood/affect full range Results Labs - Hemoglobin: Fairly decent - Cholesterol levels: Normal Imaging - EGD: Esophagitis with mild to moderate inflammation in the esophagus and stomach tissue moving upinto the esophagus - Colonoscopy: Mild diverticulosis - Gastric emptying study: Normal Diagnostic Testing - Tilt table test: Orthostatic hypotension and POTS ASSESSMENT AND PLAN: Assessment & Plan 1. Esophagitis. - Reports pantoprazole has been significantly helpful for symptoms. - Gastric emptying study was normal; further tests including SIBO glucose breath test and mesenteric ultrasound are scheduled. - Mild to moderate inflammation noted in the esophagus. - Continues pantoprazole as prescribed. 2. Diverticulosis. - Diagnosed with mild diverticulosis. - No immediate treatment changes necessary. - Stomach tissue moving up into the esophagus noted. - Continues monitoring for any progression. 3. Orthostatic Hypotension. - Tilt table test indicated orthostatic hypotension. - Currently on metoprolol 100 mg twice a day, which has been beneficial. - Blood pressure during tilt table test was 70/40. - Continues metoprolol as prescribed. 4. Presyncope. - Experienced significant drop in blood sugar to 48 mg/dL a few weeks ago, leading to dizziness andnear-fainting. - Advised to carry quick sources of sugar, such as glucose tablets. - Continues monitoring blood sugar levels twice a day. - Hall Manager advised to watch for reactive hypoglycemia. Assessment/Plan Problem List Items Addressed This Visit Preventative health care - Primary Health Maintenance Due Topic Date Due Influenza Vaccine (1) 11/11/2024 documented in this encounter Plan of Treatment Upcoming Encounters Date Type Department Care Team (Late st Contact Info) Description 10/24/2024 12:40 PM EDT Office Visit [facility] [address] [place] [id number] Linnea Escalante PA [address] [place] [address] 12/20/2024 8:00 AM EDT Office Visit [facility] [address] [place] [phone] Linnea Escalante PA [address] [place] [address] documented as of this encounter Visit Diagnoses Diagnosis Preventative health care- Primary Routine general medical examination at a health care facility documented in this encounter Care Teams Inspector [employer] Relationship Specialty Start Date End Date Nickolas Isaacs MD [address] [place] [address] PCP - General Family Medicine 09/28/22 Linnea Escalante PA [address] [place] [address] Physician [facility] 09/28/22 documented as of this encounter
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
--- OUTSIDE RECORDS SUMMARY | 2024-10-23 19:05 | XMS_ITS | Encounter Summary ---
Author Organization [facility] Address [address] [place] [address] Care Team Providers Care Private Detective Name Role Phone Linnea Escalante Unavailable [phone] Nickolas Isaacs MD Primary Care Provider [phone] Linnea Escalante Unavailable [phone] Encounter Details Date Type Department Care Team (Late st Contact Info) Description 06/14/2023 Clinisync Result Encounter [facility] External Department Unsolicited Deon Parra MD [address] [facility] [place] [id number] Social History Tobacco Use Types Packs/Day Years [...] often do you attend chur ch or baptism services? 1 to 4 times per year 08/02/2022 Do you belong to any clubs o r organizations such as scientology groups, unions, fraternal or athletic groups, or [...] medical care, and heating? Somewhat hard 08/01/2022 [facility] [...] in a long-term (including now)? No 08/01/2022 Comments No Sex [...] Description 10/24/2024 12:40 PM EDT Office Visit [facility] [address] [place] [address] Linnea Escalante PA [address] [place] [address] 12/20/2024 8:00 AM EDT Office Visit [facility] [address] [place] [address] Linnea Escalante PA [address] [place] [address] documented as of this encounter Procedures Procedure [...] (Electronic Signature): 06/15/2023 4:17 pm Signed by: Devorah VELASQUEZ, Leonardo Infante Transcribed by: MIRIAM Technologist: FRANCESCA Technical Comments Vueway Contrast amount in ml's: 10 us Deon Parra MD [facility] Final Resul t documented in this encounter Visit Diagnoses Not on filedocumented in this encounter Care Teams Private Detective Relationship Specialty Start Date End Date Linnea Escalante PA [address] [place] [address] PCP - Medical [place] [employer] 08/11/22 10/03/23 Nickolas Isaacs MD [address] [place] [address] PCP - General Family Medicine 09/28/22 Linnea Escalante PA [address] [place] [address] Physician Coat Maker Family Medicine 09/28/22 documented as of this encounter
--- OUTSIDE RECORDS SUMMARY | 2024-10-23 19:05 | XMS_ITS | Encounter Summary ---
Author Organization [facility] Address [facility] [place] [address] Care Team Providers Care Swimming Pool Attendant Name Role Phone Linnea Escalante PA-C Primary Care Provider Maddi Ochoa RN Unavailable Source Comments In the event this information is protected by the Federal Confidentiality of Alcohol and Drug AbusePatient Records regulations: The Federal rules restrict any use of the information to criminally investigate or prosecute any alcohol or drug abuse patient.[facility] Encounter Details Date Type Department Care Team (Late st Contact Info) Description 08/14/2024 Patient Msg [facility] [address] [place] [address] ProviderKieran colon prep instructions Social History Tobacco Use Types Packs/Day Years Used Date Smoking Tobacco: Never Assessed Area Deprivation Index Answer Date Satish rded National Score (1-100), lower number is lower ri sk 76 11/18/2022 State Score (1-10), lower number is lower risk 6 11/18/2022 Data from: https://www.elin guerrahoodphilip.medicine.[facility].edu/. Last address used for calculation [address] [...] AM EDT Office Visit Vascular Surgery [address] [place] [address] Nausea and vomiting, unspecified vomiting type [R11.2] 11/05/2024 9:00 AM EDT Nurse Visit [facility] Gastroenterology [facility] [address] [facility] [address] [place], [place] [id number] [facility], Nurse Beatrice Luebbering [address] [place] [address] Nausea and vomiting, unspecified vomiting type [R11.2] documented as of this encounter Visit Diagnoses Not on filedocumented in this encounter Care Teams Swimming Pool Attendant Relationship Specialty Start Date End Date Linnea Escalante PA-C [address] [place] [place] [address] PCP - General Family Medicine 02/03/23 Maddi Ochoa, [place] [address] [place] [address] Specialty Speech Pathologist Hematology/Oncology 02/10/23 documented as of this encounter
--- OUTSIDE RECORDS SUMMARY | 2024-10-23 19:05 | XMS_ITS | Encounter Summary ---
Author Organization [facility] Address [address] [place] [address] Care Team Providers Care Paint Sprayer Sandblaster Name Role Phone Nickolas Isaacs MD Primary Care Provider [phone] Linnea Escalante Unavailable [phone] Encounter Details Date Type Department Care Team (Late st Contact Info) Description 10/23/2024 Bamboo flowsheet [facility] [address] [address] Db Keane DO [address] [facility] [address] [facility] [address] [place] [id number] Social History Tobacco Use Types Packs/Day Years [...] How often do you attend chur or catholic services? 1 to 4 times per year 10/08/2024 Do you belong to any clubs o r organizations such as scientologist groups, unions, fraternal or athletic groups, or [...] medical care, and heating? Somewhat hard 10/08/2024 [facility] of Occupat ional Health - [...] in a assisted (including now)? No 08/01/2022 Housing Stability Vital Sign Answer Bryan e Recorded In the last 12 months, was t here a time when you were not able to pay the mortgage or rent on time? No 10/08/2024 In the past 12 months, how m any times have you moved where you were living? 1 10/08/2024 At any time in the past 12 m [facility], were you homeless or living in a assisted (including now)? No 10/08/2024 Comments No Sex [...] [facility] [address] [place] [address] Linnea Escalante PA [address] [place] [address] 12/20/2024 8:00 AM EDT Office Visit [facility] [address] [place] [address] Linnea Escalante PA [address] [place] [address] documented as of this encounter Visit Diagnoses Not on filedocumented in this encounter Care Teams Paint Sprayer Sandblaster Relationship Specialty Start Date End Date Nickolas Isaacs MD [address] [place] [address] PCP - General Family Medicine 09/28/22 Linnea Escalante PA [address] [place] [address] Physician Spool Hauler Family Medicine 09/28/22 documented as of this encounter
--- OUTSIDE RECORDS SUMMARY | 2024-10-23 19:05 | XMS_ITS | Encounter Summary ---
Author Organization [facility] Address [address] [place] [address] Care Team Providers Care Choir Member Name Role Phone Nickolas Isaacs MD Primary Care Provider Linnea Escalante Unavailable [phone] Encounter Details Date Type Department Care Team [...] often do you attend chur ch or anglican services? 1 to 4 times per year 10/08/2024 Do you belong to any clubs o r organizations such as jew groups, unions, fraternal or athletic groups, or [...] medical care, and heating? Somewhat hard 10/08/2024 [facility] [place] of Occupat ional Health - Occupational Stress [...] time in the past 12 m [facility], were you homeless or living in [...] [facility] [address] [place] [phone] Linnea Escalante PA [address] [place] [address] 12/20/2024 8:00 AM EDT Office Visit [facility] [address] [place] [address] Linnea Escalante PA [address] [place] [address] documented as of this encounter Visit Diagnoses Not on filedocumented in this encounter Care Teams Choir Member Relationship Specialty Start Date End Date Nickolas Isaacs MD [address] [place] [address] PCP - General Family Medicine 09/28/22 Linnea Escalante PA [address] [place] [address] Physician Cardiac Nurse Family Medicine 09/28/22 documented as of this encounter
--- OUTSIDE RECORDS SUMMARY | 2024-10-23 19:05 | XMS_ITS | Encounter Summary ---
Author Organization [facility] Address [address] [place] [address] Care Team Providers Care Mental Retardation Nurse Name Role Phone Linnea Escalante PA-C Primary Care Provider Maddi Ochoa RN Unavailable Source Comments In the event this information is protected by the Federal Confidentiality of Alcohol and Drug AbusePatient Records regulations: The Federal rules restrict any use of the information to criminally investigate or prosecute any alcohol or drug abuse patient.[facility] Encounter Details Date Type Department Care Team (Late st Contact Info) Description 02/21/2023 [place] [address] Provider, C[facility] Questionnaire Submission Social History Tobacco Use Types Packs/Day Years Used Date Smoking Tobacco: Never Assessed Area Deprivation Index Answer Date Satish rded National Score (1-100), lower number is lower ri sk 76 11/18/2022 State Score (1-10), lower number is lower risk 6 11/18/2022 Data from: https://www.neigh borhoodatlas.medicine.[facility]/. Last address used for calculation 24 [...] AM EDT Office Visit Vascular Surgery [address] [place] [address] Nausea and vomiting, unspecified vomiting type [R11.2] 11/05/2024 9:00 AM EDT Nurse Visit [facility] Gastroenterology [facility] [address] [facility] [address] [place], [place] [phone] [facility], Nurse [facility] [address] [place], [place] [id number] Nausea and vomiting, unspecified vomiting type [R11.2] documented as of this encounter Visit Diagnoses Not on filedocumented in this encounter Care Teams Mental Retardation Nurse Relationship Specialty Start Date End Date Linnea Escalante PA-C [address] [place] [address] PCP - General Family Medicine 02/03/23 [place] [address] [place] [address] Specialty Language Tutor Hematology/Oncology 02/10/23 documented as of this encounter
--- OUTSIDE RECORDS SUMMARY | 2024-10-23 19:05 | XMS_ITS | Clinical Summary ---
Author Organization [facility] Address [address] [place] [address] Care Team Providers Care Brain Picker Name Role Phone Edmundo Sharma Unavailable Elizabeth [...] drink = 0.6 oz pur e alcohol) [facility] Utilities Answer Date Recorded In the [...] of Transportation (Non-Medical) Not on file 04/10/2023 [facility] - Inadequate Housing Answer Date Re [...] things needed for daily living? No 04/16/2024 [facility] - Financial Strain Answer Date Satish [...] 04/16/2024 Do you need help finding a [employer] center and/or job training? No 04/16/2024 Child or Elder Care Answer Date Recorde d In the last 4 weeks, did get ting child care assistant, elder care, or care for another person [...] Info) Description 04/16/2025 8:30 AM EST Appointment [facility] Radiology [facility] Floor B1 Assembler Mechanical Ordnance A [address] [place] [address] Dr [address] [place] [address] 04/16/2025 10:00 AM EST Office Visit [facility] [place] Floor B1 Assembler Mechanical Ordnance E [address] [place] [address] Dr [address] [place] [phone] Rebeka Aleman PA-C [address] [place] [address] Dr [address]AN [address] [facility] Floor B1 Assembler Mechanical Ordnance B [facility] [place] [address] Health Maintenance Due Date Last [...] 1995 Pneumococcal Combined Aged Out No angelica kahlil eligible based on patient's age to complete this topic Respiratory Syncytial Virus (RSV) ages 0 thru 19 months Aged Out No longer el igible based on patient's age to complete this topic Medical Devices Implanted Type Area Brim Plater Device Identifier Shelf Expiration Date Model / Serial / Lot [employer] Insurance [facility] Care Teams Brain Picker Relationship Specialty Start Date End Date Linnea Escalante PA-C [address] [place] [phone] PCP - General 04/16/24 Edmundo Sharma [address] [place] [address] Hematology and Oncology 03/28/23 Elizabeth Randall MD [address] [place] [address] [facility] [place] [address] Specialty Physician Medical Oncology 04/12/23 Shyla Nuñez Oncology Slasher Machine Operator 04/14/23
--- OUTSIDE RECORDS SUMMARY | 2024-10-23 19:05 | XMS_ITS | Encounter Summary ---
Author Organization [facility] Address [address] [place] [address] Care Team Providers Care Graduate Student Name Role Phone Linnea Escalante PA-C Primary Care Provider Maddi Ochoa RN Unavailable Source Comments In the event this information is protected by the Federal Confidentiality of Alcohol and Drug AbusePatient Records regulations: The Federal rules restrict any use of the information to criminally investigate or prosecute any alcohol or drug abuse patient.[facility] Encounter Details Date Type Department Care Team (Late st Contact Info) Description 09/30/2024 Results Follow-Up Gastroenterology [address] [place], [place] [id number] Irma Nava APRN.ASSISTANT BANQUET MANAGER [address] [place], [place] [id number] Social History Tobacco Use Types Packs/Day Years Used Date Smoking Tobacco: Never Smokeless Tobacco: Never Alcohol Use Standard Drinks/Week Comments Never 0 (1 standard drink = 0.6 oz pur e alcohol) Area Deprivation Index Answer Date Satish rded National Score (1-100), lower number is lower ri sk 76 11/18/2022 State Score (1-10), lower number is lower risk 6 11/18/2022 Data from: https://www.neigh marihoodatrosa.medicine.[facility]/. Last address used for calculation 24 [...] AM EDT Office Visit Vascular Surgery [address] [place] [address] Nausea and vomiting, unspecified vomiting type [R11.2] 11/05/2024 9:00 AM EDT Nurse Visit [facility] Gastroenterology [facility] [address] [place] [address] [facility], Nurse [facility] [address] [place], [place] [id number] Nausea and vomiting, unspecified vomiting type [R11.2] documented as of this encounter Visit Diagnoses Not on filedocumented in this encounter Care Teams Graduate Student Relationship Specialty Start Date End Date Linnea Escalante PA-C [address] [place] [address] PCP - General Family Medicine 02/03/23 [place] [address] [place] [address] Specialty Data Center Consultant Hematology/Oncology 02/10/23 documented as of this encounter
--- OUTSIDE RECORDS SUMMARY | 2024-10-23 19:05 | XMS_ITS | Encounter Summary ---
Author Organization [facility] Address [address] [facility] [place] [address] Care Team Providers Care Pace Analyst Name Role Phone Linnea Escalante Unavailable [phone] Nickolas Isaacs MD Primary Care Provider [phone] Linnea Escalante Unavailable [phone] Encounter Details Date Type Department Care Team (Late st Contact Info) Description 01/16/2023 Abstract [facility] [address] [place] [address] Linnea Escalante PA [address] [place] [address] Social History Tobacco Use Types Packs/Day Years [...] often do you attend chur ch or mormonism services? 1 to 4 times per year 08/02/2022 Do you belong to any clubs o r organizations such as confucianist groups, unions, fraternal or athletic groups, or [...] [facility] ional [facility] - Occupational Stress Questionnaire Answer Date [...] place to sleep or slept in a fpc (including now)? No 08/01/2022 Comments No Sex [...] Description 10/24/2024 12:40 PM EDT [facility] [address] [place] [phone] Linnea Escalante PA [address] [place] [address] 12/20/2024 8:00 AM EDT Office Visit [facility] [address] [place] [phone] Linnea Escalante PA [address] [place] [phone] documented as of this encounter Visit Diagnoses Not on filedocumented in this encounter Care Teams Pace Analyst Relationship Specialty Start Date End Date Linnea Escalante PA [address] [place] [address] PCP - Medical [facility] 08/11/22 10/03/23 Nickolas Isaacs MD [address] [place] [address] PCP - General Family Medicine 09/28/22 Linnea Escalante PA [address] [place] [address] Physician Forestry Engineer Family Medicine 09/28/22 documented as of this encounter
--- OUTSIDE RECORDS SUMMARY | 2024-10-23 19:05 | XMS_ITS | Encounter Summary ---
Author Organization [facility] Address [address] [place] [address] Care Team Providers Care Utility Locate Technician Name Role Phone Linnea Escalante Unavailable [phone] Nickolas Isaacs MD Primary Care Provider [phone] Linnea Escalante Unavailable [phone] Encounter Details Date Type Department Care Team (Late st Contact Info) Description 11/17/2022 Clinisync Result Encounter [facility] External Department Unsolicited Rafael Keane, DO [address] [place] [address] Social History Tobacco Use Types Packs/Day Years [...] often do you attend chur ch or buddhist services? 1 to 4 times per year 08/02/2022 Do you belong to any clubs o r organizations such as amish groups, unions, fraternal or athletic groups, or [...] medical care, and heating? Somewhat hard 08/01/2022 [facility] of Occupat ional Health - Occupational Stress [...] health care facility (including now)? No 08/01/2022 Comments No Sex [...] [facility] [address] [place] [address] Linnea Esclaante PA [address] [place] [address] 12/20/2024 8:00 AM EDT Office Visit [facility] [address] [place] [address] Linnea Escalante PA [address] [place] [address] documented as of this encounter Procedures Procedure Name Priority Date/Time Associated Diagnosis Comments US PELVIS W/ TRANSVAGINAL 11/17/2022 3:41 PM EDT documented in this encounter Results * US PELVIS W/ TRANSVAGINAL (11/17/2022 3:41 PM EDT) Anatomical Region Laterality Modality Other 11/17/2022 3:41 PM EDT Narrative 11/17/2022 3:41 [place] [address] Ultrasound Report Signed Patient: ADINA MARTINEZ MR#: [id number] : 1995 Acct:[id number] Age/Sex: 27 / F ADM Date: 11/17/22 Loc: US Attending Dr: Rafael Keane D.O. Ordering Physician: Rafael Keane D.O. Date of Service: 11/17/22 Procedure(s): US pelvis w/ transvaginal Accession Number(s): [id number] cc: Rafael Keane D.O.; Physician,Non-Staff M.DEula [facility] [place] [id number] Patient Name: ADINA MARTINEZ MRN: [id number] date: 1995 Sex: F Assigned Patient Location: Current Patient Location: Accession/Order Number: [id number] Exam Date: 11/17/2022 14:33 Report Date: 11/17/2022 [...] Signed By: 11/17/22 1544 DD/ 1541 TD/TT: Elderly Companion: Procedure Note Radiology, Radiologist, MD - 12/02/2022 [place] [address] Ultrasound Report Signed Patient: ADINA MARTINEZMR#: [id number] : 1995Acct:[id number] Age/Sex: 27 / FADM Date: 11/17/22 Loc: US Attending Dr: Rafael Keane D.O. Ordering Physician: Rafael Keane D.O. Date of Service: 11/17/22 Procedure(s): US pelvis w/ transvaginal Accession Number(s): [id number] cc: Rafael Keane D.O.; Physician,Non-Staff Keagan [facility] [place] [id number] Patient Name: ADINA MARTINEZ MRN: [id number] date: 1995 Sex: F Assigned Patient Location: US Current Patient Location: US Accession/Order Number: [id number] Exam Date: 11/17/2022 14:33 Report Date: 11/17/2022 [...] M.D. Signed By:11/17/22 1544 DD/ 1541 TD/TT: Elderly Companion: us Rafael Diya DO [facility] Final Result documented in this encounter Visit Diagnoses Not on filedocumented in this encounter Care Teams Utility Locate Technician Relationship Specialty Start Date End Date Linnea Escalante PA [address] [place] [address] PCP - Medical [place] [employer] 08/11/22 10/03/23 Nickolas Isaacs MD [address] [place] [address] PCP - General Family Medicine 09/28/22 Linnea Escalante PA [address] [place] [address] Physician Solar Energy Sales Specialist Family Medicine 09/28/22 documented as of this encounter
--- OUTSIDE RECORDS SUMMARY | 2024-10-23 19:05 | XMS_ITS | Encounter Summary ---
Author Organization [facility] Address [address] [place] [address] Care Team Providers Care Nurse Practitioner Physicians Assistant Name Role Phone Nickolas Isaacs MD Primary Care Provider [phone] Linnea Escalante Unavailable [phone] Encounter Details Date Type Department Care Team (Late st Contact Info) Description 10/14/2024 Bamboo flowsheet [facility] [address] [place] [address] Linnea Escalante PA [address] [place] [address] Social History Tobacco Use Types Packs/Day Years [...] How often do you attend chur or mosque services? 1 to 4 times per year 10/08/2024 Do you belong to any clubs o r organizations such as cheondoism groups, unions, fraternal or athletic groups, or [...] medical care, and heating? Somewhat hard 10/08/2024 [facility] Occupat ional Health - [...] place to sleep or slept in a mcc (including now)? No 08/01/2022 Housing Stability Vital [...] in the past 12 m [facility], were you homeless or living in a mcc (including now)? No 10/08/2024 Comments No Sex [...] [facility] [address] [place] [phone] Linnea Escalante PA [address] [place] [address] 12/20/2024 8:00 AM EDT Office Visit [facility] [address] [place] [address] Linnea Escalante PA [address] [place] [address] documented as of this encounter Visit Diagnoses Not on filedocumented in this encounter Care Teams Nurse Practitioner Physicians Assistant Relationship Specialty Start Date End Date Nickolas Isaacs MD [address] [place] [address] PCP - General Family Medicine 09/28/22 Linnea Escalante PA [address] [place] [address] Physician Time Cycle Operator Family Medicine 09/28/22 documented as of this encounter
--- OUTSIDE RECORDS SUMMARY | 2024-10-23 19:05 | XMS_ITS | Encounter Summary ---
Author Organization [facility] Address [address] [place] [address] Care Team Providers Care Fatback Trimmer Name Role Phone Nickolas Isaacs MD Primary Care Provider [phone] Linnea Escalante Unavailable [phone] Encounter Details Date Type Department Care Team (Late st Contact Info) Description 08/14/2024 External Result Encounter [facility] External Department Unsolicited Linnea Escalante PA [address] [place] [address] Social History Tobacco Use Types Packs/Day Years [...] How often do you attend chur or mormonism services? More than 4 times per year 10/04/2023 Do you belong to any clubs o r organizations such as gnosticist groups, unions, fraternal or athletic groups, or [...] medical care, and heating? Patient declined [facility]/04/2023 [facility] Questionnaire Answer Date Recorded [...] place to sleep or slept in a fdc (including now)? No 08/01/2022 Housing Stability Vital [...] time in the past 12 m [facility], were you homeless or living in a fdc (including now)? No 10/04/2023 Comments No Sex [...] [facility] [address] [place] [phone] Linnea Escalante PA [address] [place] [address] 12/20/2024 8:00 AM EDT Office Visit [facility] [address] [place] [address] Linnea Escalante PA [address] [place] [address] documented as of this encounter Procedures Procedure [...] Miller M.D. 08/14/2024 11:03 AM Dictation Location: [place] [address] Transcribed By: CHARLENE 08/14/24 1103 Dictated By: Meet Miller MD 08/14/24 1031 Signed By: <Electronically signed by Meet Miller MD in OV> 08/14/24 1103 Narrative 08/14/2024 11:05 AM EDT [facility] Main [place] [id number] CT Scan Report Signed Patient: Yolie Martinez MR#: [id number] : 1995 Acct:[id number] Age/Sex: 29 / F ADM Date: 08/14/24 Loc: CT Room: Type: [facility] Attending Dr: Linnea Escalante PA-C, [...] hydronephrosis. Prior cholecystectomy.[ GI: Small hiatal hernia. Dhmd-gc-nvswlahl retained stool within the colon. Mild colonic [...] con Procedure Note Radiology, Radiologist, - 09/19/2024 [facility] Main [place] [address] [place] [address] CT Scan Report Signed Patient: Yolie Martinez PMR#: [id number] : 1995Acct:[id number] Age/Sex: 29 FADM Date: 08/14/24 Loc: CT Room:Type: [facility] Attending Dr: Linnea Escalante PA-C, [...] hydronephrosis. Prior cholecystectomy.[ GI: Small hiatal hernia. Ktry-sc-oldlaopp retained stool within thecolon. Mild colonic diverticulosis. [...] Miller M.D. 08/14/2024 11:03 AM Dictation Location: [place] [address] Transcribed By: [facility] 08/14/24 1103 Dictated By: Meet Miller MD 08/14/24 1031 Signed By: <Electronically signed by Meet Miller MD in OV> 08/14/24 [address] PROCEDURES Edited Re sult - Final documented in this encounter Visit Diagnoses Not on filedocumented in this encounter Care Teams Fatback Trimmer Relationship Specialty Start Date End Date Nickolas Isaacs MD [address] [place] [address] PCP - General Family Medicine 09/28/22 Linnea Escalante PA [address] [place] [address] Physician Precision Agronomist Family Medicine 09/28/22 documented as of this encounter
--- OUTSIDE RECORDS SUMMARY | 2024-10-23 19:05 | XMS_ITS | Encounter Summary ---
Author Organization [facility] Address [address] [facility] [place] [address] Care Team Providers Care Compounding Scaler Name Role Phone Nickolas Isaacs MD Primary Care Provider [phone] Linnea Escalante Unavailable [phone] Encounter Details Date Type Department Care Team (Late st Contact Info) Description 10/14/2024 Results Follow-Up [facility] [address] [place] [address] Linnea Escalante PA [address] [place] [address] Social History Tobacco Use Types Packs/Day Years [...] How often do you attend chur or gnosticism services? 1 to 4 times per year [...] medical care, and heating? Somewhat hard 10/08/2024 [facility] of Occupat ional Health - Occupational [...] any time in the past 12 m [facility], were you homeless or living in a fdc (including now)? No 10/08/2024 Comments No Sex [...] [facility] [address] [place] [phone] Linnea Escalante PA [address] [place] [address] 12/20/2024 8:00 AM EDT Office Visit [facility] [address] [place] [address] Linnea Escalante PA [address] [place] [address] documented as of this encounter Visit Diagnoses Not on filedocumented in this encounter Care Teams Compounding Scaler Relationship Specialty Start Date End Date Nickolas Isaacs MD [address] [place] [address] PCP - General Family Medicine 09/28/22 Linnea Escalante PA [address] [place] [address] Physician Dry Janitor Family Medicine 09/28/22 documented as of this encounter
--- OUTSIDE RECORDS SUMMARY | 2024-10-23 19:05 | XMS_ITS | Encounter Summary ---
Author Organization [facility] Address [address] [facility] [place] [address] Care Team Providers Care Trolley Worker Name Role Phone Linnea Escalante Unavailable [phone] Nickolas Isaacs MD Primary Care Provider [phone] Linnea Escalante Unavailable [phone] Encounter Details Date Type Department Care Team (Late st Contact Info) Description 12/27/2022 Abstract [facility] [address] [place] [address] Linnea Escalante PA [address] [place] [address] Social History Tobacco Use Types Packs/Day Years [...] often do you attend chur ch or druze services? 1 to 4 times per year 08/02/2022 Do you belong to any clubs o r organizations such as congregational groups, unions, fraternal or athletic groups, or [...] 08/01/2022 [facility] of Occupat ional [facility] - Occupational Stress Questionnaire Answer Date [...] Description 10/24/2024 12:40 PM EDT [facility] [address] [place] [phone] Linnea Escalante PA [address] [place] [address] 12/20/2024 8:00 AM EDT Office Visit [facility] [address] [place] [phone] Linnea Escalante PA [address] [place] [phone] documented as of this encounter Visit Diagnoses Not on filedocumented in this encounter Care Teams Trolley Worker Relationship Specialty Start Date End Date Linnea Escalante PA [address] [place] [address] PCP - Medical [facility] 08/11/22 10/03/23 Nickolas Isaacs MD [address] [place] [address] PCP - General Family Medicine 09/28/22 Linnea Escalante PA [address] [place] [address] Physician Logistics Management Specialist Family Medicine 09/28/22 documented as of this encounter
--- OUTSIDE RECORDS SUMMARY | 2024-10-23 19:05 | XMS_ITS | Encounter Summary ---
Author Organization [facility] Address [address] [place] [address] Care Team Providers Care Strike Operations Officer Name Role Phone Nickolas Isaacs MD Primary Care Provider Linnea Escalante Unavailable [phone] Encounter Details Date Type Department Care Team (Latest Contact Info) Description 10/23/2024 Travel Social History Tobacco Use Types Packs/Day [...] medical care, and heating? Somewhat hard 10/08/2024 [facility] of Occupat ional Health - Occupational Stress [...] place to sleep or slept in a detention (including now)? No 08/01/2022 Housing Stability Vital Sign Answer Bryan e Recorded In the last 12 months, was t here a time when you were not able to pay the mortgage or rent on time? No 10/08/2024 In the past 12 months, how m any times have you moved where you were living? 1 10/08/2024 At any time in the past 12 m [facility], were you homeless or living in a detention (including now)? No 10/08/2024 Comments No Sex [...] [facility] [address] [place] [phone] Linnea Escalante PA [address] [place] [address] 12/20/2024 8:00 AM EDT Office Visit [facility] [address] [place] [address] Linnea Escalante PA [address] [place] [address] documented as of this encounter Visit Diagnoses Not on filedocumented in this encounter Care Teams Strike Operations Officer Relationship Specialty Start Date End Date Nickolas Isaacs MD [address] [place] [address] PCP - General Family Medicine 09/28/22 Linnea Escalante PA [address] [place] [address] Physician Manager Valuation Family Medicine 09/28/22 documented as of this encounter
--- OUTSIDE RECORDS SUMMARY | 2024-10-23 19:05 | XMS_ITS | Clinical Summary ---
Author Organization [facility] Address [address] [place] [address] Care Team Providers Care Senior Windows Engineer Name Role Phone Nickolas Isaacs MD Primary Care Provider [phone] Linnea Escalante Unavailable [phone] Allergies Active Allergy Reactions Criticality Noted Date Comments Bee Venom Hives,Anaphylaxis High 08/02/2022 Food Rash Low 02/14/2020 Pt allergic to berries Other Unknown 02/14/2020 Raspberry Rash,Anaphylaxis High 10/13/2022 Medications albuterol HFA 90 mcg/act inhaler Inhale 2 puffs every 4 (four) hours if needed for wheezing Active Albuterol-Budeson anthony (Airsupra) 90-80 MCG/ACT aerosolIndication s:Mild intermittent asthma without complication (HCC) Inhale 2 puffs every 4 (four) hours if needed (SOB/wheezing) 10.7 g 5 024 Active promethazine-dext romethorphan (Phenergan-DM) 6.25-15 MG/5ML syrupIndications: Viral upper respiratory tract infection,Mild intermittent asthma without complication (HCC) Take 5 mL by mouth every 6 (six) hours if needed for cough 240 mL 024 Active levothyroxine (Synthroid) 112 MCG tabletIndications :Acquired hypothyroidism Take 1 tablet (112 mcg) by mouth in the morning. Take before meals. 30 tablet 3 025 Active metoclopramide (Reglan) 5 MG tablet Take 5 mg by mouth every 6 (six) hours if needed 025 Active omeprazole (PriLOSEC) [address] capsule Take 20 mg by mouth in the morning. 025 2025 Active pantoprazole (ProtoNix) 40 MG EC tablet Take 40 mg by mouth Daily Active HYDROcodone-aceta minophen (Parsons) 5-325 MG tablet Take 1 tablet by mouth every 4 (four) hours if needed Active predniSONE (Deltasone) 10 MG tablet Take 10 mg by mouth Daily Active cyclobenzaprine (Flexeril) 5 MG tablet Take by mouth 2024 Active metFORMIN XR (Glucophage-XR) 500 MG 24 hr tabletIndications :Encounter for weight management,Weight gain Take 2 tablets (1,000 mg) by mouth in the evening. Take with meals Do not crush, chew, or split. 60 tablet 2025 Active cholecalciferol (Vitamin D-3) 25 MCG (1000 UT) capsule Take 2 capsules by mouth Daily 2024 Discontinued(T herapy completed) Fluticasone-Umecl idin-Vilant (Trelegy Ellipta) 200-62.5-25 MCG/ACT aerosol powderIndications :Mild intermittent asthma without complication (HCC) Inhale 1 puff Daily 1 each 5 2024 Discontinued topiramate (Topamax) 100 MG tabletIndications :Intractable chronic migraine without aura and without status migrainosus Take 1 tablet (100 mg) by mouth at bedtime 30 tablet 11 2024 Discontinued(T herapy completed) Drospirenone (Slynd) 4 MG tabletIndications :Menorrhagia with regular cycle Take 4 mg by mouth Daily 28 tablet 11 024 2024 Discontinued(T herapy completed) albuterol (2.5 MG/3ML) 0.083% nebulizer solutionIndicatio ns:Viral upper respiratory tract infection,Mild intermittent asthma without complication (HCC) Take 3 mL (2.5 mg) by nebulization every 6 (six) hours if needed for wheezing 75 mL 11 024 2024 Discontinued(T herapy completed) azithromycin (Zithromax) 250 MG tabletIndications :Viral upper respiratory tract infection,Mild intermittent asthma without complication (HCC) Take 2 tabs PO x 1 day then 1 tab PO daily x 4 days 6 tablet 024 2024 Discontinued(T herapy completed) methylPREDNISolon e (Medrol Dospak) 4 MG tabletsIndication s:Non-recurrent acute serous otitis media of right ear Follow schedule on package instructions 21 tablet 024 2024 Discontinued(T herapy completed) metFORMIN XR (Glucophage-XR) 500 MG 24 hr tabletIndications :Encounter for weight management Take 1 tablet (500 mg) by mouth in the evening. Take with meals Do not crush, chew, or split. 30 tablet 11 025 2024 Discontinued(R eorder) Ubrelvy 100 MG tablet TAKE 1 TABLET BY MOUTH DAILY NEEDED. MAY REPEAT in 2 hours. max of 2 TABLETS in 24 hours. 024 2024 Discontinued(T herapy completed) Active Problems Problem Noted Date Diagnosed Date [...] EDT): Patient will being seeing oncology at [facility] Had PET Scan done tomorrow Acute recurrent [...] EDT): Healing well, patient needs work excuse [id number]-- Patient was advised to work on deep breathing exercises [place] diet Patient has appt with Dr. Boo on Monday Assessment & Plan (11/22/2022 2:21 PM EDT): Reviewed CT results with patient Will refer to Dr. Boo [facility] for further eval Abdominal pain 09/29/2022 Assessment [...] Encounters Date Type Department Care Team Description 10/23/2024 3:00 PM EDT Office Visit [facility] DIA[facility] [address] [place] [address] Db Keane, Well woman exam with routine gynecological exam; Encounter for weight management; Weight gain 10/23/2024 Bamboo flowsheet [facility] Karen DIAZ [address] [place] [address] Db Keane DO 10/23/2024 Travel 10/22/2024 Patient Outreach [facility] [address] [place] [phone] Jimena Williamson LPN 10/21/2024 Travel 10/14/2024 12:20 PM EDT Office Visit [facility] [place] [facility] [address] [place] [phone] Linnea Escalante, PA Preventative health care (Primary Dx) 10/14/2024 Results Follow-Up [facility] [address] [place] [address] Linnea Escalante PA 10/14/2024 Bamboo flowsheet [facility] [address] [place] [phone] Linnea Escalante PA 10/14/2024 Travel 10/08/2024 Travel 09/24/2024 Clinisync Result Encounter [facility] External Department Unsolicited Provider, Generic External Data 09/18/2024 Patient Outreach [facility] [address] [place] [address] Bella Escalante LSW 09/16/2024 Clinisync Result Encounter [facility] External Department Unsolicited Provider, Generic External Data 08/29/2024 Clinisync Result Encounter [facility] External Department Unsolicited Provider, Generic External Data 08/29/2024 Clinisync Result Encounter [facility] External Department Unsolicited Provider, Generic External Data 08/14/2024 External Result Encounter [facility] External Department Unsolicited Linnea Escalante, PA from Last 3 Months Immunizations Immunization [...] Alive Father Leonardo Martinez Alive Mother Fernanda Kenyon Alive Paternal Grandfather [...] often do you attend chur ch or zoroastrianism services? 1 to 4 times per year [...] medical care, and heating? Somewhat hard 10/08/2024 [facility] of Occupat ional Health - Occupational Stress [...] in a usp (including now)? No 08/01/2022 Housing Stability Vital Sign Answer Bryan e Recorded In the last 12 months, was t here a time when you were not able to pay the mortgage or rent on time? No 10/08/2024 In the past 12 months, how m any times have you moved where you were living? 1 10/08/2024 At any time in the past 12 m [facility], were you homeless or living in a usp (including now)? No 10/08/2024 Comments No Sex and Gender Information Value Date Recorded Sex Assigned at Female 08/01/2022 4:36 PM EDT Legal Sex Female 7:27 PM EDT Gender Identity Female 05/25/2022 7:27 PM EDT Sexual Orientation Straight 08/03/2022 8: 31 PM EDT Last Filed Vital Signs Vital Sign Reading Time Taken Comments Blood Pressure 108/70 10/23/2024 3:19 PM EDT Pulse 84 10/14/2024 12:05 PM EDT Temperature 36.5 C (97.7 F) 10/14/2024 12:05 PM EDT Respiratory Rate - - Oxygen Saturation 99% 10/14/2024 12:05 PM EDT Inhaled Oxygen Concentration - - Weight 129 kg (283 lb 12 oz) 10/23/2024 3:19 PM EDT Height 172.7 cm (5' 8 ) 10/14/2024 12:05 PM EDT Body Mass Index 43.14 10/14/2024 12:05 PM EDT Plan of Treatment Upcoming Encounters Date Type Department Care Team (Late st Contact Info) Description 10/24/2024 12:40 PM EDT Office Visit [facility] [place] [facility] [address] [place] [phone] Linnea Escalante PA [address] [place] [address] 12/20/2024 8:00 AM EDT Office Visit [facility] [place] [facility] [address] [place] [address] Linnea Escalante PA [address] [place] [address] Health Maintenance Due Date Last Done Comments Influenza Vaccine (#1) 2024 , 11/12/2023, 12/08/2022, Additional history exists Procedures Procedure Name Priority Date/Time Associated Diagnosis Comments NM GASTRIC EMPTYING SOLID 09/24/2024 12:45 PM EDT [place] [facility] Routine 09/16/2024 10:35 PM EDT COLONOSCOPY 08/29/2024 [...] DATE OF EXAM: Sep 24 2024 12:45PM [facility] 0017 - NM GASTRIC EMPTYING SOLID [...] gastric emptying rate for the solid meal. Tomb Maker Helper: BRIT Transcribe Date/Time: Sep 27 2024 11:50A Dictated by : PIETRO JONES MD This examination was interpreted and the report reviewed and electronically signed by: PIETRO JONES MD on Sep 27 2024 11:51AM EST [id number] Procedure Note Radiology, Radiologist, - 09/27/2024 * * *Final Report* * * DATE OF EXAM: Sep 24 2024 12:45PM [facility] 0017 - NM GASTRIC EMPTYING SOLID [...] gastric emptying rate for the solid meal. Tomb Maker Helper: BRIT Transcribe Date/Time: Sep 27 2024 11:50A Dictated by : PIETRO JONES MD This examination was interpreted and the report reviewed and electronically signed by: PIETRO JONES MD on Sep 27 2024 11:51AM EST [id number]^[email or web address]^ACN us Generic External Data Provider [facility] Final Result * [facility] [place] [facility] (09/16/2024 10:35 PM EDT) [facility]ULTURE - [facility] Urine Culture - FR <9,000 colonies/ml mixed [facility] URINE CULTURE - FR bacterial skin contaminants [facility] URINE CULTURE - [facility] 2 Days [facility] URINE [facility]ULTURE - [facility]INE [facility]ULTURE - [facility] Testing performed at [facility]URE - [facility] [address] [place] [address] [facility] 09/16/2024 10:3 5 PM EDT 09/16/2024 11:20 PM EDT Narrative [facility] - 09/19/2024 12:08 PM EDT us Generic External Data Provider LAB BLOOD ORDERAB LES Final [facility] COLONOS[facility] (08/29/2024 11:23 AM EDT) Anatomical Region Laterality Modality Other 08/29/2024 11:2 3 AM EDT Addenda Addendum by Radiology, RadiologistMD on 09/09/2024 12:34 PM EDT [facility] Gastrointestinal Endoscopy Patient Name: Yolie Martinez Procedure Date: 08/29/2024 11:23 AM Date of : 1995 Admit Type: Outpatient Age: 29 Room: [place] [address] Gender: Female Note Status: Hat Liner Override Attending MD: Bobo Slaughter MD, [id number] Procedure: Colonoscopy Indications: Generalized abdominal pain Providers: [...] by the physician, the nurse and the emissions inspector in the procedure room at 11:11. Mental [...] home (ambulatory). Procedure Code(s): --- Professional --- 23099, Colonoscopy, flexible; diagnostic, including collection of specimen(s) by brushing or washing, when performed (separate procedure) Diagnosis Code(s): --- Professional --- R10.84, Generalized abdominal pain CPT copyright 2020 [employer]. All rights reserved. The codes documented in this report are preliminary and upon excellence manager review may be revised to meet current compliance requirements. Scope In: 11:25:29 AM Scope Out: 11:38:57 AM MD Bobo Sparks MD 08/29/2024 11:41:28 AM This report has been signed electronically by Bobo Slaughter MD Number of Addenda: 0 Note Initiated On: 08/29/2024 11:23 AM Estimated Blood Loss: Estimated blood loss: none. Narrative 08/29/2024 11:41 AM T [facility] Gastro[facility] Endoscopy Patient Name: Yolie Martinez Procedure Date: 08/29/2024 11:23 AM Date of : 1995 Admit Type: Outpatient Age: 29 Room: [place] [address] Gender: Female Note Status: Finalized Attending MD: Bobo Slaughter MD, [id number] Procedure: Colonoscopy Indications: Generalized abdominal pain Providers: [...] by the physician, the nurse and the emissions inspector in the procedure room at 11:11. Mental [...] home (ambulatory). Procedure Code(s): --- Professional --- 38319, Colonoscopy, flexible; diagnostic, including collection of specimen(s) by brushing or washing, when performed (separate procedure) Diagnosis Code(s): --- Professional --- R10.84, Generalized abdominal pain CPT copyright 2020 [employer]. All rights reserved. The codes documented in this report are preliminary and upon excellence manager review may be revised to meet current compliance requirements. Scope In: 11:25:29 AM Scope Out: 11:38:57 AM MD Bobo Sparks MD 08/29/2024 11:41:28 AM This report has been signed electronically by Bobo Slaughter MD Number of Addenda: 0 Note Initiated On: 08/29/2024 11:23 AM Estimated Blood Loss: Estimated blood loss: none. Procedure Note Radiology, Radiologist, - 09/09/2024 [facility] Gastrointestinal Endoscopy Patient Name: Yolie Martinez Procedure Date: 08/29/2024 11:23 AM Date of : 1995 Admit Type: Outpatient Age: 29 Room: [place] [address] Gender: Female Note Status: Finalized Attending MD: Bobo Slaughter MD, [id number] Procedure: Colonoscopy Indications: Generalized abdominal pain Providers: [...] by the physician, the nurse and the emissions inspector in the procedure room at 11:11. Mental [...] home (ambulatory). Procedure Code(s): --- Professional --- 21263, Colonoscopy, flexible; diagnostic, including collection of specimen(s) by brushing or washing, when performed (separate procedure) Diagnosis Code(s): --- Professional --- R10.84, Generalized abdominal pain CPT copyright 2020 [employer]. All rights reserved. The codes documented in this report are preliminary and upon excellence manager review may be revised to meet current compliance requirements. Scope In: 11:25:29 AM Scope Out: 11:38:57 AM MD Bobo Sparks MD 08/29/2024 11:41:28 AM This report has been signed electronically by Bobo Slaughter MD Number of Addenda: 0 Note Initiated On: 08/29/2024 11:23 AM Estimated Blood Loss: Estimated blood loss: none. us Generic External Data Provider [facility] Edited Result - Final * TISS PATH BX REPORT (08/29/2024 11:16 AM EDT) [facility] CASE REPORT [facility] Comment: Surgical Pathology Report Case: [id number] Authorizing Provider: Bobo Slaughter MD Collected: 08/29/2024 [...] 2024 12:14 AM Gross examination performed at [facility], [address] [place] [address] [facility] FINAL PERFORMING LAB [facility] Comment: Diagnostic interpretation performed at: [facility], [address] [place] [address], [place] [address] CLIA# [id number] Personnel Technician: Jose Heaton MD AP DISCLAIMER [facility] Comment: Laboratory Developed Test (LDT) Disclaimer: Performance characteristics of immunohistochemical, immunofluorescent, and chromogenic in-situ hybridization tests have been determined by the performing laboratory within [facility]'s [facility] Pathology and Laboratory Medicine Department ([facility], [facility], [facility], [facility], [facility], [facility], or [facility]) in a manner consistent with CLIA [...] AM EDT 08/29/2024 8:14 PM EDT Narrative [facility] - 08/30/2024 3:49 PM EDT Specimen Type: TISSUE SPECIMEN Ordering Facility: [facility] Address: [address] [place] [address] Original Ordering Provider: BOBO SLAUGHTER Authorkendra Provider Result Type Result Stat us Generic External Data Provider LAB BLOOD ORDERAB LES Final Result [facility] [id number] * UPPER GI ENDOSCOPY (08/29/2024 11:02 AM EDT) Anatomical Region Laterality Modality Other 08/29/2024 11:0 2 AM EDT Addenda Addendum by Radiology, RadiologistMD on 09/09/2024 12:36 PM EDT [facility] Gastrointestinal Endoscopy Patient Name: Yolie Martinez Procedure Date: 08/29/2024 11:02 AM Date of : 1995 Admit Type: Outpatient Age: 29 Room: [facility] Gender: Female Note Status: Hat Liner Override Attending MD: Bobo Slaughter MD, [id number] Procedure: Upper GI endoscopy Indications: Nausea with [...] by the physician, the nurse and the emissions inspector in the procedure room at 11:11. Mental [...] colonoscopy today. Procedure Code(s): --- Professional --- 11810, Esophagogastroduodenoscopy, flexible, transoral; with biopsy, single or multiple Diagnosis Code(s): --- Professional --- K21.00, Gastro-esophageal reflux disease with esophagitis, without bleeding R11.2, Nausea with vomiting, unspecified CPT copyright 2020 [employer]. All rights reserved. The codes documented in this report are preliminary and upon excellence manager review may be revised to meet current compliance requirements. Scope In: 11:15:53 AM Scope Out: 11:20:18 AM MD Bobo Sparks MD 08/29/2024 11:23:44 AM This report has been signed electronically by Bobo Slaughter MD Number of Addenda: 0 Note Initiated On: 08/29/2024 11:02 AM Estimated Blood Loss: Estimated blood loss: none. Narrative 08/29/2024 11:23 AM EDT [facility] Gastrointestinal Endoscopy Patient Name: Yolie Martinez Procedure Date: 08/29/2024 11:02 AM Date of : 1995 Admit Type: Outpatient Age: 29 Room: [facility] Gender: Female Note Status: Finalized Attending MD: Bobo Slaughter MD, [id number] Procedure: Upper GI endoscopy Indications: Nausea with [...] by the physician, the nurse and the emissions inspector in the procedure room at 11:11. Mental [...] colonoscopy today. Procedure Code(s): --- Professional --- 83194, Esophagogastroduodenoscopy, flexible, transoral; with biopsy, single or multiple Diagnosis Code(s): --- Professional --- K21.00, Gastro-esophageal reflux disease with esophagitis, without bleeding R11.2, Nausea with vomiting, unspecified CPT copyright 2020 [employer]. All rights reserved. The codes documented in this report are preliminary and upon excellence manager review may be revised to meet current compliance requirements. Scope In: 11:15:53 AM Scope Out: 11:20:18 AM MD Bobo Sparks MD 08/29/2024 11:23:44 AM This report has been signed electronically by Bobo Slaughter MD Number of Addenda: 0 Note Initiated On: 08/29/2024 11:02 AM Estimated Blood Loss: Estimated blood loss: none. Procedure Note Radiology, Radiologist, - 09/09/2024 [facility] Gastrointestinal Endoscopy Patient Name: Yolie Martinez Procedure Date: 08/29/2024 11:02 AM Date of : 1995 Admit Type: Outpatient Age: 29 Room: [place] [address] Gender: Female Note Status: Finalized Attending MD: Bobo Slaughter MD, [id number] Procedure: Upper GI endoscopy Indications: Nausea with [...] by the physician, the nurse and the emissions inspector in the procedure room at 11:11. Mental [...] colonoscopy today. Procedure Code(s): --- Professional --- 48857, Esophagogastroduodenoscopy, flexible, transoral; with biopsy, single or multiple Diagnosis Code(s): --- Professional --- K21.00, Gastro-esophageal reflux disease with esophagitis, without bleeding R11.2, Nausea with vomiting, unspecified CPT copyright 2020 [employer]. All rights reserved. The codes documented in this report are preliminary and upon excellence manager review may be revised to meet current compliance requirements. Scope In: 11:15:53 AM Scope Out: 11:20:18 AM MD Bobo Sparks MD 08/29/2024 11:23:44 AM This report has been signed electronically by Bobo Slaughter MD Number of Addenda: 0 Note Initiated On: 08/29/2024 11:02 AM Estimated Blood Loss: Estimated blood loss: none. [facility] External Data Provider [facility] Edited Result - Final * CT abdomen pelvis wo IV contrast (08/14/2024 10:31 AM EDT) Anatomical Region Laterality Modality Body, Pelvis, Abdomen Computed T omography 08/14/2024 10:3 1 AM EDT Impressions 08/14/2024 11:05 AM EDT No soft tissue mass at site of clinical concern. Impression dictated by: Meet Miller M.D. 08/14/2024 11:03 AM Dictation Location: [place] [address] Transcribed By: [facility] 08/14/24 1103 Dictated By: Meet Miller MD 08/14/24 1031 Signed By: <Electronically signed by Meet Miller MD in OV> 08/14/24 1103 Narrative 08/14/2024 11:05 AM EDT [facility] [place] [address] CT Scan Report Signed Patient: Yolie Martinez MR#: [id number] : 1995 Acct:[id number] Age/Sex: 29 / F ADM Date: 08/14/24 Loc: CT Room: Type: [facility] Attending Dr: Linnea Escalante PA-C, [...] hydronephrosis. Prior cholecystectomy.[ GI: Small hiatal hernia. Onsi-xa-fbnckkqm retained stool within the colon. Mild colonic [...] con Procedure Note Radiology, Radiologist, - 09/19/2024 [facility] Main [place] [id number] CT Scan Report Signed Patient: Yolie Martinez PMR#: [id number] : 1995Acct:[id number] Age/Sex: 29 / FADM Date: 08/14/24 Loc: CT Room:Type: [facility] Attending Dr: Linnea Escalante PA-C, [...] hydronephrosis. Prior cholecystectomy.[ GI: Small hiatal hernia. Xqmx-hp-zsnrqdoe retained stool within thecolon. Mild colonic diverticulosis. [...] Miller M.D. 08/14/2024 11:03 AM Dictation Location: [place] [address] Transcribed By: [facility] 08/14/24 1103 Dictated By: Meet Miller MD 08/14/24 1031 Signed By: <Electronically signed by Meet Miller MD in OV> 08/14/24 1103 us Linnea WEBSTER IMG CT PROCEDURES Edited Re sult - Final from Last 3 Months Insurance [employer] Care Teams Senior Windows Engineer Relationship Specialty Start Date End Date Nickolas Isaacs MD [address] [place] [address] PCP - General Family Medicine 09/28/22 Linnea Escalante PA [address] [place] [address] Physician Sound Effects Supervisor Family Medicine 09/28/22
--- OUTSIDE RECORDS SUMMARY | 2024-10-23 19:05 | XMS_ITS | Encounter Summary ---
Author Organization [facility] Address [address] [place] [place] [address] Care Team Providers Care Technology Infusion Specialist Name Role Phone Linnea Escalante Unavailable [phone] Nickolas Isaacs MD Primary Care Provider [phone] Linnea Escalante Unavailable [phone] Encounter Details Date Type Department Care Team (Late st Contact Info) Description 11/15/2022 Abstract [facility] [address] [place] [phone] Lizzie Garcia PA [address] [place], [facility] Social History Tobacco Use Types Packs/Day Years [...] often do you attend chur ch or quaker services? 1 to 4 times per year 08/02/2022 Do you belong to any clubs o r organizations such as jehovah's witness groups, unions, fraternal or athletic groups, or [...] medical care, and heating? Somewhat hard 08/01/2022 [facility] of Occupat ional Health - Occupational [...] Description 10/24/2024 12:40 PM EDT [facility] [address] [place] [phone] Linnea Escalante PA [address] [place] [address] 12/20/2024 8:00 AM EDT Office Visit [facility] [address] [place] [address] Linnea Escalante PA [address] [place] [id number] documented as of this encounter Visit Diagnoses Not on filedocumented in this encounter Care Teams Technology Infusion Specialist Relationship Specialty Start Date End Date Linnea Escalante PA [address] [place] [address] PCP - Medical [place] [employer] 08/11/22 10/03/23 Nickolas Isaacs MD [address] [place] [address] PCP - General Family Medicine 09/28/22 Linnea Escalante PA [address] [place] [address] Physician Grinder [facility]ke [place] [facility] 09/28/22 documented as of this encounter
--- OUTSIDE RECORDS SUMMARY | 2024-10-23 19:05 | XMS_ITS | Encounter Summary ---
Author Organization [facility] Address [address] [place] [address] Care Team Providers Care Brake Specialist Name Role Phone Linnea Escalante PA-C Primary Care Provider Maddi Ochoa RN Unavailable Source Comments In the event this information is protected by the Federal Confidentiality of Alcohol and Drug AbusePatient Records regulations: The Federal rules restrict any use of the information to criminally investigate or prosecute any alcohol or drug abuse patient.[facility] Encounter Details Date Type Department Care Team (Late st Contact Info) Description 09/05/2024 Get Medical Advice Gastroenterology [address] [place], [place] [id number] Irma Nava APRN.WHIPPER BEATER [address] [place], [place] [id number] GASTRIC EMPTYING STUDY Social History Tobacco Use [...] lower risk 6 11/18/2022 Data from: https://www.neigh marihoodatrosa.medicine.[facility]/. Last address used for calculation [...] AM EDT Office Visit Vascular Surgery [address] [place] [address] Nausea and vomiting, unspecified vomiting type [R11.2] 11/05/2024 9:00 AM EDT Nurse Visit [facility] Gastroenterology [facility] [address] [facility] [address] [place] [address] [facility], Nurse [facility] [address] [place], [place] [id number] Nausea and vomiting, unspecified vomiting type [R11.2] documented as of this encounter Visit Diagnoses Not on filedocumented in this encounter Care Teams Brake Specialist Relationship Specialty Start Date End Date Linnea Escalante PA-C [address] [place] [address] PCP - General Family Medicine 02/03/23 [place] [address] [place] [address] Specialty Server Systems Administrator Hematology/Oncology 02/10/23 documented as of this encounter
--- OUTSIDE RECORDS SUMMARY | 2024-10-23 19:05 | XMS_ITS ---
Author Organization [facility] Address [address] [facility] [place] [address] Care Team Providers Care Policy Intern Name Role Phone Nickolas Isaacs MD Primary Care Provider [phone] Linnea Escalante Unavailable [phone] Emergency Department Transitional Care Management (TCM) Status:Closed (Closed) Start date:10/22/2024 Enrollment date:10/22/2024 Enrollment reason:Identified using hospital discharge data End date:10/22/2024 Close reason:Assistance not needed Overview Discharged from The ER on 10/22. Please contact within 2 days of discharge for ERTOC and schedule a follow-up appointment if needed. Continued Care and Services Coordination
--- OUTSIDE RECORDS SUMMARY | 2024-10-23 19:05 | XMS_ITS | Encounter Summary ---
Author Organization [facility] Address [address] [place] [address] Care Team Providers Care Pipe Supervisor Name Role Phone Nickolas Isaacs MD Primary Care Provider [phone] Linnea Escalante Unavailable [phone] Encounter Details Date Type Department Care Team (Late st Contact Info) Description 10/22/2024 Patient Outreach [facility] [address] [place] [phone] Jimena Williamson LPN [address] [place] [address] Social History Tobacco Use [...] How often do you attend chur or moravian services? 1 to 4 times per year 10/08/2024 Do you belong to any clubs o r organizations such as quaker groups, unions, fraternal or athletic groups, or [...] medical care, and heating? Somewhat hard 10/08/2024 [employer] [employer] of Occupat ional Health - Occupational Stress [...] [facility] the [facility] were you [facility] or living in a fdc (including now)? No 10/08/2024 Comments No Sex and Gender Information Value Date Recorded Sex Assigned at Female 08/01/2022 4:36 PM EDT Legal Sex Female 7:27 PM EDT Gender Identity Female 05/25/2022 7:27 PM EDT Sexual Orientation Straight 08/03/2022 8: 31 PM EDT documented as of this encounter Progress Notes * Jimena Williamson LPN - 10/22/2024 11:08 AM EDT Images from the original note were not included. [facility] to [facility] for R upper ext pain, R shoulder, scapula and R neck to R arm area. The area felt swollen to pt with decreased movement to fingers. Pt received injection of orphenadrine 60 mgIM and Toradol 30 mg IM with 1 tablet of [place]. Xrays and US negative. Pt is to FU OP with PCP for possible CT scan. 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 Call to pt, message simona desai tcb. <October 22, 2024, 11:29 - Jimena Williamson LPN> Pt returns call and she is still having numbness/tingling in her arm. 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 Appt made for FU with Chitra Escalante 10/24/25. She will discuss getting an CT done at [facility]. LEONARDA completed and medications reconciled with pt. <October 22, 2024, 14:40 - Jimena Williamson LPN> Flowsheet Row Patient Outreach from 10/22/2024 in [facility] with Jimena Williamson LPN Hospital Information ED, Hospital or Nursing Home Facility Discharge? ED Patient has been contacted within 2 days of being seen in the ED Yes Diagnosis Cervical Radiculopathy Discharge Date 10/22/24 Discharged To: Home Setting Discharge Hospital [facility] Engagement Admission Date 10/21/24 Medications Discharge medications reviewed and reconciled from hospital? Yes Is the patient having any side effects they believe may be caused by any medication additions or changes? No Does the patient have all medications ordered at discharge? Yes Nursing Interventions Nurse provided patient education Prescription Comments Hydrocodone-Acetaminophen 5-325mg q6hprn, Prednisone 10mg as directed, Flexeril 5mg TID prn Is the patient taking all medications as directed (includes completed medication regime)? Yes Nursing Interventions Nurse provided patient education Appointments Does the patient have a primary care provider? Yes Nursing Interventions Verified appointment date/time/provider [10/24/24] Does the patient have any upcoming specialty appointments? No Nursing Interventions Advised patient to keep appointment Self Management Does patient have home health? no Patient Teaching Does the patient have access to their discharge instructions? Yes Nursing Interventions Reviewed instructions with patient What is the patient's perception of their health status since discharge? Improving Wrap Up Wrap Up Additional Comments Xray R shoulder, US R shoulder documented in this encounter Plan of Treatment Upcoming Encounters Date Type Department Care Team (Late st Contact Info) Description 10/24/2024 12:40 PM EDT Office Visit [facility] [place] [address] [place] [phone] Linnea Escalante PA [address] [place] [address] 12/20/2024 8:00 AM EDT Office Visit [facility] [place] [address] [place] [address] Linnea Escalante PA [address] [place] [address] documented as of this encounter Visit Diagnoses Diagnosis Cervical radiculopathy- Primary Brachial neuritis or radiculitis nos 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
--- OUTSIDE RECORDS SUMMARY | 2024-10-23 19:05 | XMS_ITS | Encounter Summary ---
Author Organization [facility] Address [address] [place] [address] Care Team Providers Care Car Repairer Pullman Name Role Phone Nickolas Isaacs MD Primary Care Provider [phone] Linnea Escalante Unavailable [phone] Encounter Details Date Type Department Care Team (Late st Contact Info) Description 10/10/2023 Orders Only [facility] [address] [place] [address] Ese Jones LPN [address] [place] [address] Social History Tobacco Use Types [...] How often do you attend chur or taoism services? More than 4 times per year 10/04/2023 Do you belong to any clubs o r organizations such as muslim groups, unions, fraternal or athletic groups, or [...] medical care, and heating? Patient declined 10/04/2023 [facility] of Occupat ionsd Health - Occupational Stress Questionnaire Answer Date [...] any time in the past 12 m onths, were you homeless or living in a [...] [facility] [address] [place] [phone] Linnea Escalante PA [address] [place] [address] 12/20/2024 8:00 AM EDT Office Visit [facility] [address] [place] [address] Linnea Escalante PA [address] [place] [address] documented as of this encounter Procedures Procedure [...] on filedocumented in this encounter Care Teams Car Repairer Pullman Relationship Specialty Start Date End Date Nickolas Isaacs MD [address] [place] [address] PCP - General Family Medicine 09/28/22 Linnea Escalante PA [address] [place] [address] Physician Materials And Processes Manager Family Medicine 09/28/22 documented as of this encounter
--- OUTSIDE RECORDS SUMMARY | 2024-10-23 19:05 | XMS_ITS | Encounter Summary ---
Author Organization [facility] Address [address] [place] [address] Care Team Providers Care Stratigraphy Teacher Name Role Phone Linnea Escalante Unavailable [phone] Nickolas Isaacs MD Primary Care Provider [phone] Linnea Escalante Unavailable [phone] Encounter Details Date Type Department Care Team [...] How often do you attend chur or mu-ism services? 1 to 4 times [...] place to sleep or slept in a fci (including now)? No 08/01/2022 Comments No Sex [...] Description 10/24/2024 12:40 PM EDT [facility] [address] [place] [address] Linnea Escalante PA [address] [place] [address] 12/20/2024 8:00 AM EDT [facility] [address] [place] [address] Linnea Escalante PA [address] [place] [address] documented as of this encounter Procedures Procedure Name Priority Date/Time Associated Diagnosis Comments MRI ABDOMEN WO/W IVCON 02/23/2023 3:32 PM EST documented in this encounter Results * MRI ABDOMEN WO/W IVCON (02/23/2023 3:32 PM EST) Anatomical Region Laterality Modality Other 02/23/2023 3:32 PM EST Narrative 02/23/2023 4:30 PM EST * * *Final Report* * * DATE OF EXAM: Feb 23 2023 3:32PM [facility] 0[facility] - MRI ABDOMEN WO/W IVCON / [...] any questions regarding this interpretation, please call [phone]. If you are unable to reach us at the number above, please feel free to contact [facility] at [phone]. [id number]^AGFA_IDC^SI^ACN Procedure Note Radiology, Radiologist, - 02/24/2023 * * *Final Report* * * DATE OF EXAM: Feb 23 2023 3:32PM [facility]689 - MRI ABDOMEN WO/W IVCON / [...] any questions regarding this interpretation, please call [phone]. If you are unable to reach us at the number above, please feel free to contact [facility] at [phone]. [id number]^AGFA_IDC^SI^ACN us Generic External Data Provider [facility] Final Result documented in this encounter Visit Diagnoses Not on filedocumented in this encounter Care Teams Stratigraphy Teacher Relationship Specialty Start Date End Date Linnea Escalante PA [address] [place] [address] PCP - Medical [employer] 08/11/22 10/03/23 Nickolas Isaacs MD [address] [place] [address] PCP - General Family Medicine 09/28/22 Linnea Escalante PA [address] [place] [address] Physician Facilities Custodian Family Medicine 09/28/22 documented as of this encounter
--- OUTSIDE RECORDS SUMMARY | 2024-10-23 19:05 | XMS_ITS | Encounter Summary ---
Author Organization [facility] Address [address] [place] [address] Care Team Providers Care Cabin Equipment Supervisor Name Role Phone Nickolas Isaacs MD Primary Care Provider [phone] Linnea Escalante Unavailable [phone] Encounter Details Date Type Department Care Team [...] often do you attend chur ch or jewish services? 1 to 4 times per year 10/08/2024 Do you belong to any clubs o r organizations such as taoism groups, unions, fraternal or athletic groups, or [...] medical care, and heating? Somewhat hard 10/08/2024 [facility] [place] of Occupat ional Health - Occupational Stress [...] any time in the past [address] [facility], were you homeless or living in [...] [facility] [address] [place] [phone] Linnea Escalante PA [address] [place] [address] 12/20/2024 8:00 AM EDT Office Visit [facility] [address] [place] [address] Linnea Escalante PA [address] [place] [address] documented as of this encounter Visit Diagnoses Not on filedocumented in this encounter Care Teams Cabin Equipment Supervisor Relationship Specialty Start Date End Date Nickolas Isaacs MD [address] [place] [address] PCP - General Family Medicine 09/28/22 Linnea Escalante PA [address] [place] [address] Physician Supervisor [employer] Family Medicine 09/28/22 documented as of this encounter
--- OUTSIDE RECORDS SUMMARY | 2024-10-23 19:05 | XMS_ITS | Encounter Summary ---
Author Organization [facility] Address [address] [place] [address] Care Team Providers Care Business Information Manager Name Role Phone Linnea Escalante PA-C Primary Care Provider Maddi Ochoa RN Unavailable Source Comments In the event this information is protected by the Federal Confidentiality of Alcohol and Drug AbusePatient Records regulations: The Federal rules restrict any use of the information to criminally investigate or prosecute any alcohol or drug abuse patient.[facility] Encounter Details Date Type Department Care Team (Late st Contact Info) Description 08/28/2024 GI Preprocedure Call Ambulatory Surgery [address] [place] [address] [place] [address] [place] [address] Social History Tobacco Use Types Packs/Day Years Used Date Smoking Tobacco: Never Assessed Area Deprivation Index Answer Date Satish rded National Score (1-100), lower number is lower ri sk 76 11/18/2022 State Score (1-10), lower number is lower risk 6 11/18/2022 Data from: https://www.neigh marihoodatrosa.medicine.[facility].edu/. Last address used for calculation 24 [...] 8:00 AM EDT Office Visit Vascular Surgery [address] [place] [id number] Nausea and vomiting, unspecified vomiting type [R11.2] 11/05/2024 9:00 AM EDT Nurse Visit [facility] Gastroenterology [facility] [address] [facility] [address] [place] [address] [facility], Nurse [facility] [address] [facility] [address] [place], [place] [phone] Nausea and vomiting, unspecified vomiting type [R11.2] documented as of this encounter Visit Diagnoses Not on filedocumented in this encounter Care Teams Business Information Manager Relationship Specialty Start Date End Date Linnea Esaclante PA-C [address] [place] [address] PCP - General Family Medicine 02/03/23 [place] [address] [place] [address] Specialty Mechanical Piping Designer Hematology/Oncology 02/10/23 documented as of this encounter
--- OUTSIDE RECORDS SUMMARY | 2024-10-23 19:05 | XMS_ITS | Encounter Summary ---
Author Organization [facility] Address [address] [place] [address] Care Team Providers Care Senior It Specialist Name Role Phone Linnea Escalante Unavailable [phone] Nickolas Isaacs MD Primary Care Provider [phone] Linnea Escalante Unavailable [phone] Encounter Details Date Type Department Care Team [...] medical care, and heating? Somewhat hard 08/01/2022 [facility] of Occupat ional Health - Occupational [...] Description 10/24/2024 12:40 PM EDT [facility] [address] [place] [address] Linnea Escalante PA [address] [place] [address] 12/20/2024 8:00 AM EDT [facility] [address] [place] [address] Linnea Escalante PA [address] [place] [address] documented as of this encounter Procedures Procedure [...] MRI scan report for the abdomen findings. Manager Paid (topogram) images: No additional findings. IMPRESSION: 1. [...] any questions regarding this interpretation, please call [phone]. If you are unable to reach us at the number above, please feel free to contact [facility] at [phone]. [id number]^AGFA_IDC^SI^ACN Procedure Note Radiology, Radiologist, - 02/24/2023 * [...] MRI scan report for the abdomen findings. Manager Paid (topogram) images: No additional findings. IMPRESSION: 1. [...] any questions regarding this interpretation, please call [phone]. If you are unable to reach us at the number above, please feel free to contact [facility] at [phone]. [id number]^AGFA_IDC^SI^ACN us Generic External Data Provider IMG CT PROCEDURES Final Result documented in this encounter Visit Diagnoses Not on filedocumented in this encounter Care Teams Senior It Specialist Relationship Specialty Start Date End Date Linnea Escalante PA [address] [place] [address] PCP - Medical [facility] 08/11/22 10/03/23 Nickolas Isaacs MD [address] [place] [address] PCP - General Family Medicine 09/28/22 Linnea Escalante PA [address] [place] [address] Physician Mutuel Machine Operator Family Medicine 09/28/22 documented as of this encounter
--- OUTSIDE RECORDS SUMMARY | 2024-10-23 19:06 | XMS_ITS | Encounter Summary ---
Author Organization [facility] Address [address] [place] [address] Care Team Providers Care Supervisor Pipeline Name Role Phone Linnea Escalante PA-C Primary Care Provider Maddi Ochoa RN Unavailable Source Comments In the event this information is protected by the Federal Confidentiality of Alcohol and Drug AbusePatient Records regulations: The Federal rules restrict any use of the information to criminally investigate or prosecute any alcohol or drug abuse patient.[facility] Encounter Details Date Type Department Care Team (Late st Contact Info) Description 12/27/2022 Lab Requisition [facility] Laboratory [facility] [place] [address] Dequan Cortes MD [address] [place] [address] Person encountering health services to consult on behalf of another person Social History Tobacco Use Types Packs/Day Years Used Date Smoking Tobacco: Never Assessed Area Deprivation Index Answer Date Satish rded National Score (1-100), lower number is lower ri sk 76 11/18/2022 State Score (1-10), lower number is lower risk 6 11/18/2022 Data from: https://www.elin higgins.medicine.[facility]/. Last address used for calculation 24 [...] 8:00 AM EDT Office Visit Vascular Surgery [address] [place] [address] Nausea and vomiting, unspecified vomiting type [R11.2] 11/05/2024 9:00 AM EDT Nurse Visit [facility] Gastroenterology [facility] [address] [place] [address] [facility], Nurse [facility] [address] [facility] [address] [place], [place] [id number] Nausea and vomiting, unspecified vomiting type [R11.2] [...] PANL Sarcoma Fusion NGS Laboratory Accession Number: [id number] Case #: [id number] Block #: A2 ([id number] 3) Sample Type: FFPET % Tumor: 95 [...] developed and its performance characteristics determined by [facility]'s [facility] [place] ([facility]). It has not been cleared or approved by the FDA. [facility] is regulated under CLIA as certified to perform high- complexity testing. This test is used for clinical purposes. It should not be regarded as investigational or for research. Testing and interpretation performed at [facility], [address] [place] [address]. CLIA Number: [id number] References: 1) Song VENTURA, Maco SANCHEZ, Imani [...] Tumors. Pathobiology. 2017; 84(6):323-338. As reviewed by Krsity Heart, PhD, [facility] 01/26/2023 12:30 PM EST [facility] Blocks or Slides PARAFFIN EMBEDDED TISSUE BLOCK SPECIMEN / Unknown 12/27/2022 10:33 AM EDT 01/17/2023 10:03 AM EST us Dequan Cortes MD LABORATORY Final Re sult [facility] [address] [facility] [place] [id number], * FISH FOR MDM2 (12/27/2022 10:33 AM EDT) FISH FOR MDM2 FISH for MDM2 Amplification Laboratory Accession Number: [id number] Block/Part ID: A2 ([id number]; 3) Case: [id number] Sample Type: FFPET Sample Description: RIGHT ABDOMINAL [...] and its performance characteristics determined by the [facility]'s [facility] Pathology and Laboratory Medicine [place] ([facility]). It has not been cleared or approved by the FDA. [facility] is regulated under CLIA as qualified to perform high- complexity testing. This test is used for clinical purposes. It should not be regarded as investigational or for research[place] [address]. CLIA Number: [id number] As reviewed by Justyna Fine MD, PhD 01/05/2023 5:02 PM EDT [facility] Blocks or Slides PARAFFIN EMBEDDED TISSUE BLOCK SPECIMEN / Unknown 12/27/2022 10:33 AM EDT 12/29/2022 11:41 AM EDT us Dequan Cortes MD LABORATORY Final Re sult [facility] [address] [place] [address] [address] [place] [address], * SURGICAL PATHOLOGY REFERENCE LAB CONSULT (12/27/2022 10:33 AM EDT) Case Report Surgical Pathology Report Case: [id number] Authorizing Provider: Dequan Cortes MD Collected: 12/27/2022 10:33 AM Ordering Location: [facility] Received: 12/27/2022 10:29 AM [facility] Laboratory Pathologist: Lori Butcher MD Specimen: SLIDE(S)/BLOCK(S), 12 SLIDES ( 3 BLOCKS 2,3,5) [id number] 01/26/2023 3:51 PM EST [facility] FINAL DIAGNOSIS Soft tissue, right abdominal wall, 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 See comment. 01/26/2023 3:51 PM [facility] at 1318 EDT Diagnosis Comment [...] mitotic figures. Immunohistochemical stains performed at the [facility] show that the neoplastic cells are negative for PLAG1, S100, SOX10, HMB45, SMA, desmin, CD34, CK, and STAT6. To further characterize this process, FISH was performed at the [facility] and was negative for MDM2 gene [...] and Soft Tissue Pathology Consultation Service at [phone] with questions or if additional follow-up information becomes available regarding this patient. This case was reviewed in conjunction with the Bone and Soft Tissue Pathology fellow, Dolly Johnson MD, PhD. Laboratory Developed Test (LDT) Disclaimer: Performance characteristics of immunohistochemical, immunofluorescent and chromogenic in-situ hybridization tests have been determined by the performing laboratory within [facility] s [facility] Pathology and Laboratory Medicine [place] ([facility], [facility], [facility], [facility], [facility], [facility], or [facility]) in a manner consistent with CLIA requirements. One or more of these tests have not been cleared or approved by the FDA. [facility] is regulated under CLIA as qualified to perform high-complexity testing. These tests are used for clinical purposes. They should not be regarded as investigational or for research. Positive and negative controls stain appropriately. 01/26/2023 3:51 PM EST [facility] Clinical History CONSULT REQUESTED 01/26/2023 3:51 PM EST [facility] Performing Lab Diagnostic interpretation performed at [facility], [address] [place], [place] [id number] [facility]# [id number] Oil Speculator: Jose Heaton M.D. 01/26/2023 3:51 PM EST [facility] Addendum The tumor cells are negative for ERG and CD31. The diagnosis remains unchanged. 01/26/2023 3:51 PM EST [facility] Addendum electronically signed by Lori Butcher MD on 01/17/2023 at 1557 EST Addendum A next-generation sequencing sarcoma fusion panel performed at the [facility] was negative for gene fusions. 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 Given the challenges in classification, the biologic behavior of this lesion is also uncertain. Complete surgical excision with negative margins and clinical follow-up monitoring for local recurrence is recommended. 01/26/2023 3:51 PM EST [facility] Addendum electronically signed by Lori Butcher MD on 01/26/2023 at 1551 EST Blocks or Slides PARAFFIN EMBEDDED TISSUE BLOCK SPECIMEN / Unknown 12/27/2022 10:33 AM EDT 12/27/2022 10:29 AM EDT us Dequan Cortes MD SURGICAL PATHOLOGY Edite d Result - Final [facility] [address] [place] [address] [address] [place] [address], documented in this encounter Visit Diagnoses Diagnosis Person encountering health services to consult on behalf of another person Other person consulting on behalf of another person documented in this encounter Care Teams Supervisor Pipeline Relationship Specialty Start Date End Date Linnea Escalante PA-C [address] [place] [address] PCP - General Family Medicine 02/03/23 Maddi Ochoa, CONY [address] [place] [address] Specialty Environmental Services Associate Hematology/Oncology 02/10/23 documented as of this encounter
--- OUTSIDE RECORDS SUMMARY | 2024-10-23 19:06 | XMS_ITS | Encounter Summary ---
Author Organization [facility] Address [address] [place] [address] Phone Care Team Providers Care General Clerk Name Role Phone Linnea Escalante PA-C Primary Care Provider [phone] Encounter Details Date Type Department Care Team (Late st Contact Info) Description 08/28/[address] [facility] [address] [place] [phone] Scanning, Generic Provider Social History Tobacco Use [...] Description 05/06/2025 8:50 AM EST Office Visit [facility] [address] [facility] [address] [place] [address] Quique Vargas MD [address] [facility] [address] [place] [address] documented as of this encounter Visit Diagnoses Not on filedocumented in this encounter Care Teams General Clerk Relationship Specialty Start Date End Date Linnea Escalante PA-C [address] [place] [address] PCP - General Internal Medicine 04/16/24 documented as of this encounter
--- OUTSIDE RECORDS SUMMARY | 2024-10-23 19:06 | XMS_ITS | Encounter Summary ---
Author Organization [facility] Address [address] [place] [address] Care Team Providers Care Children'S Minister Name Role Phone Linnea Escalante Unavailable [phone] Nickolas Isaacs MD Primary Care Provider [phone] Linnea Escalante Unavailable [phone] Encounter Details Date Type Department Care Team (Late st Contact Info) Description 04/05/2023 Orders Only [facility] [address] [place] [phone] Linnea Escalante PA [address] [place] [address] Social History Tobacco Use Types [...] often do you attend chur ch or sabianist services? 1 to 4 times per year 08/02/2022 Do you belong to any clubs o r organizations such as baptism groups, unions, fraternal or athletic groups, or [...] medical care, and heating? Somewhat hard 08/01/2022 [facility] - [...] in a fdc (including now)? No 08/01/2022 Comments No Sex [...] Description 10/24/2024 12:40 PM EDT [facility] [address] [place] [address] Linnea Escalante PA [address] [place] [address] 12/20/2024 8:00 AM EDT Office Visit [facility] [address] [place] [address] Linnea Escalante PA [address] [place] [address] documented as of this encounter Procedures Procedure [...] on filedocumented in this encounter Care Teams Children'S Minister Relationship Specialty Start Date End Date Linnea Escalante PA [address] [place] [address] PCP - Medical [employer] 08/11/22 10/03/23 Nickolas Isaacs MD [address] [place] [address] PCP - General Family Medicine 09/28/22 Linnea Escalante PA [address] [place] [address] Physician Export Freight Clerk Family Medicine 09/28/22 documented as of this encounter
--- OUTSIDE RECORDS SUMMARY | 2024-10-23 19:06 | XMS_ITS | Encounter Summary ---
Author Organization [facility] Address [address] [place] [address] Phone Care Team Providers Care Wood Patternmaker Apprentice Name Role Phone Linnea Escalante PA-C Primary Care Provider [phone] Encounter Details Date Type Department Care Team (Late st Contact Info) Description 04/16/2024 Scanned Document [facility] [address] [place] [phone] Scanning, Generic Provider Social History Tobacco Use [...] EST Office Visit [facility] [address] [facility] [address] [place] [address] Quique Vargas MD [address] [facility] [address], [address] [place], [place] [phone] documented as of this encounter Visit Diagnoses Not on filedocumented in this encounter Care Teams Wood Patternmaker Apprentice Relationship Specialty Start Date End Date Linnea Escalante PA-C [address] [place] [address] PCP - General Internal Medicine 04/16/24 documented as of this encounter
--- OUTSIDE RECORDS SUMMARY | 2024-10-23 19:06 | XMS_ITS | Encounter Summary ---
Author Organization [facility] Address [address] [place] [address] Care Team Providers Care Baseball Hand Sewer Name Role Phone Linnea Escalante PA-C Primary Care Provider Maddi Ochoa RN Unavailable Source Comments In the event this information is protected by the Federal Confidentiality of Alcohol and Drug AbusePatient Records regulations: The Federal rules restrict any use of the information to criminally investigate or prosecute any alcohol or drug abuse patient.[facility] Encounter Details Date Type Department Care Team (Late st Contact Info) Description 09/03/2024 Results Follow-Up Ambulatory Surgery [address] [place], [place] [id number] [place] [address] [place] [address] Social History Tobacco Use Types [...] lower risk 6 11/18/2022 Data from: https://www.neigh marihoodatrosa.medicine.[facility]/. Last address used for calculation [address] [...] AM EDT Office Visit Vascular Surgery [address] [place] [address] Nausea and vomiting, unspecified vomiting type [R11.2] 11/05/2024 9:00 AM EDT Nurse Visit [facility] Gastroenterology [facility] [address] [facility] [address] [place] [address] [facility], Nurse [facility] [address] [facility] [address] [place], [place] [id number] Nausea and vomiting, unspecified vomiting type [R11.2] documented as of this encounter Visit Diagnoses Not on filedocumented in this encounter Care Teams Baseball Hand Sewer Relationship Specialty Start Date End Date Linnea Escalante PA-C [address] [place] [address] PCP - General Family Medicine 02/03/23 [place] [address] [place] [address] Specialty Cafe Attendant Hematology/Oncology 02/10/23 documented as of this encounter
--- OUTSIDE RECORDS SUMMARY | 2024-10-23 19:06 | XMS_ITS | Encounter Summary ---
Author Organization [facility] Address [address] [facility] [place] [address] Care Team Providers Care Specialty Trimmer Name Role Phone Linnea Hackett Unavailable [phone] Nickolas Isaacs MD Primary Care Provider [phone] Linnea Hackett Unavailable [phone] Encounter Details Date Type Department Care Team (Late st Contact Info) Description 08/01/2023 Clinisync Result Encounter [facility] External Department Unsolicited Linnea Hackett PA [address] [place], [place] [id number] Social History Tobacco Use Types Packs/Day Years [...] any clubs o r organizations such as islam groups, unions, fraternal or athletic groups, or [...] Description 10/24/2024 12:40 PM EDT [facility] [address] [place] [address] Linnea Hackett PA [address] [place] [address] 12/20/2024 8:00 AM EDT [facility] [address] [place] [address] Linnea Hackett PA [address] [place] [address] documented as of this encounter Procedures Procedure [...] on filedocumented in this encounter Care Teams Specialty Trimmer Relationship Specialty Start Date End Date Linnea Hackett PA [address] [place] [address] PCP - Medical [place] [employer] 08/11/22 10/03/23 Nickolas Isaacs MD [address] [place] [address] PCP - General Family Medicine 09/28/22 Linnea Hackett PA [address] [place] [address] Physician Math And Science Instructor Family Medicine 09/28/22 documented as of this encounter
--- OUTSIDE RECORDS SUMMARY | 2024-10-23 19:06 | XMS_ITS | Encounter Summary ---
Author Organization [facility] Address [address] [place] [address] Phone Care Team Providers Care Audit Machine Operator Name Role Phone Linnea Escalante PA-C Primary Care Provider [phone] Encounter Details Date Type Department Care Team (Late st Contact Info) Description 12/06/2023 Scanned Document [facility] [address] [place] [address] Scanning, Generic Provider Social History Tobacco Use [...] Description 05/06/2025 8:50 AM EST Office Visit [facility] [address] [phone] Quique Vargas MD 703 [facility] [address], [address] [place] [address] documented as of this encounter Procedures Procedure Name Priority Date/Time Associated Diagnosis Comments OUTSIDE IMAGING SCAN 12/06/2023 documented in this encounter Results * OUTSIDE IMAGING SCAN (12/06/2023) Anatomical Region Laterality Modality Other Narrative 12/06/2023 Ordered by an unspecified provider. us Generic Provider Scanning OUTSIDE SCAN Final Result documented in this encounter Visit Diagnoses Not on filedocumented in this encounter Care Teams Audit Machine Operator Relationship Specialty Start Date End Date Linnea Escalante, KADY [address] [place] [address] PCP - General Internal Medicine 04/16/24 documented as of this encounter
--- OUTSIDE RECORDS SUMMARY | 2024-10-23 19:06 | XMS_ITS | Clinical Summary ---
Author Organization [facility] Address [address] [place] [address] Care Team Providers Care Slip Feeder Name Role Phone Linnea Escalante PA-C Primary [...] Team Description 09/30/2024 Get Medical Advice Gastroenterology [address] [place] [address] [place] [address] Irma Nava APRN.CNP Next steps 09/30/2024 Results Follow-Up Gastroenterology [address] [place] [address] [place] [address] rIma Nava APRN.DRY ROOM OPERATOR 09/24/2024 8:21 AM EDT - 09/24/2024 11:59 PM EDT Hospital Encounter Molecular Imaging [address] [place] [address] Dyspepsia [R10.13] Discharge Disposition: Home 09/17/2024 Travel 09/05/2024 Get Medical Advice Gastroenterology [address] [place] [address] [place] [address] Irma Nava APRN.DRY ROOM OPERATOR GASTRIC EMPTYING STUDY 09/03/2024 Results Follow-Up Ambulatory Surgery [address] [place] [address] Gene Parson MD 08/29/2024 11:11 AM EDT Anesthesia Event Ambulatory Surgery [address] [place] [address] Cami Rivera APRN.CRNA Synk, Lacey, APRN.CRNA 08/29/2024 10:43 AM EDT - 08/29/2024 11:59 PM EDT Hospital Encounter Ambulatory Surgery [address] [place] [address] Gene Parson MD Nausea and vomiting, unspecified vomiting type [R11.2] Discharge Disposition: Home 08/29/2024 Travel 08/28/2024 Travel 08/28/2024 GI Preprocedure Call Ambulatory Surgery [address] [place] [address] Gene Parson MD 08/14/2024 Patient Msg [facility] [address] [place] [address] Provider, Ccf colon prep instructions 07/30/2024 8:50 AM EDT Office Visit Gastroenterology [address] [place] [address] [place] [address] Irma Nava APRN.CNP Nausea and vomiting, unspecified [...] lower risk 6 11/18/2022 Data from: https://www.neigh peacehealthhoodatlas.medicine.[facility].edu/. Last address used for calculation 24 [...] 8:00 AM EDT Office Visit Vascular Surgery [address] [place], [place] [id number] Nausea and vomiting, unspecified vomiting type [R11.2] 11/05/2024 9:00 AM EDT Nurse Visit [facility] Gastroenterology [facility] [address] [facility] [address] [place] [address] [facility], Nurse [place] [address] [facility] [address] [place] [address] Nausea and vomiting, unspecified vomiting [...] gastric emptying rate for the solid meal. Marketing Automation Analyst: BRIT Transcribe Date/Time: Sep 27 2024 11:50A [...] hours (normal range, 0-10%) Procedure Note Provider, [facility] Imaging Welcome - 09/27/2024 * * *Final Report* * * DATE OF EXAM: Sep 24 2024 12:45PM [facility] 0017 - [place] GASTRIC EMPTYING SOLID [...] gastric emptying rate for the solid meal. Marketing Automation Analyst: PSCB Transcribe Date/Time: Sep 27 2024 11:50A Dictated by : PIETRO JONES MD This examination was interpreted and the report reviewed and electronically signed by: PIETRO JONES MD on Sep 27 2024 11:51AM EST Irma Elijah DIRECTOR OF LAND.DRY ROOM OPERATOR NM-PAMA Final Resul t * COLONOSCOPY DIAGNOSTIC (08/29/2024 11:23 AM EDT) Anatomical Region Laterality Modality Other 08/29/2024 11:2 3 AM EDT Narrative 09/09/2024 12:34 PM EDT [facility] Gastroenterology Gastrointestinal Endoscopy Patient Name: Adina Rene Procedure Date: 08/29/2024 11:23 AM Date of : 1995 Admit Type: Outpatient Age: 29 Room: [place] [address] Gender: Female Note Status: Knife Grinder Override Attending MD: Gene Parson MD, [id number] Procedure: Colonoscopy Indications: Generalized abdominal pain Providers: [...] by the physician, the nurse and the tile power shear operator in the procedure room at 11:11. Mental [...] and participated during the entire procedure, including non-menedz portions, and during the administration and monitoring [...] home (ambulatory). Procedure Code(s): --- Professional --- 62549, Colonoscopy, flexible; diagnostic, including collection of specimen(s) by brushing or washing, when performed (separate procedure) Diagnosis Code(s): --- Professional --- R10.84, Generalized abdominal pain CPT copyright 2020 [employer]. All rights reserved. The codes documented in this report are preliminary and upon manager lan review may be revised to meet current compliance requirements. Scope In: 11:25:29 AM Scope Out: 11:38:57 AM MD Gene Sparks MD 08/29/2024 11:41:28 AM This report has been signed electronically by Gene Parson MD Number of Addenda: 0 Note Initiated On: 08/29/2024 11:23 AM Estimated Blood Loss: Estimated blood loss: none. us Irma Pack DIRECTOR OF LAND.DRY ROOM OPERATOR DIGESTIVE DISEASE Edited Re sult - Final * COLONOSCOPY (THERAPEUTIC) (08/29/2024 11:23 AM EDT) Anatomical Region Laterality Modality Other 08/29/2024 11:2 3 AM EDT Narrative 08/29/2024 11:43 AM EDT [facility] Gastroenterology Gastrointestinal Endoscopy Patient Name: Adina Rene Procedure Date: 08/29/2024 11:23 AM Date of : 1995 Admit Type: Outpatient Age: 29 [facility] Gender: Female Note Status: Finalized Attending MD: Gene Parson MD, [id number] Procedure: Colonoscopy Indications: Generalized abdominal pain Providers: [...] by the physician, the nurse and the tile power shear operator in the procedure room at 11:11. Mental [...] home (ambulatory). Procedure Code(s): --- Professional --- 34500, Colonoscopy, flexible; diagnostic, including collection of specimen(s) by brushing or washing, when performed (separate procedure) Diagnosis Code(s): --- Professional --- R10.84, Generalized abdominal pain CPT copyright 2020 [employer]. All rights reserved. The codes documented in this report are preliminary and upon manager lan review may be revised to meet current compliance requirements. Scope In: 11:25:29 AM Scope Out: 11:38:57 AM MD Gene Sparks MD 08/29/2024 11:41:28 AM This report has been signed electronically by Gene Parson MD Number of Addenda: 0 Note Initiated On: 08/29/2024 11:23 AM Estimated Blood Loss: Estimated blood loss: none. us Irma Nava DIRECTOR OF LAND.DRY ROOM OPERATOR DIGESTIVE DISEASE Final Res ult * SURGICAL PATHOLOGY (08/29/2024 11:16 AM EDT) Case Report Surgical Pathology Report Case: [id number] Authorizing Provider: Gene Parson MD Collected: 08/29/2024 11:16 AM Ordering Location: Ambulatory Surgery Received: 08/29/2024 08:14 PM Pathologist: Ed Pruett MD, PhD Specimens: A) - Small Bowel, Duodenum, Biopsy, r/o celiac B) - Stomach, Biopsy, r/o h. pylori C) - Esophagus, Biopsy, r/o eoe and barretts 08/30/2024 3:49 PM EDT [facility] FINAL DIAGNOSIS A. Duodenum, biopsy: - Duodenal mucosa with no significant diagnostic abnormality. B. Stomach, biopsy: - Reactive gastric antral and oxyntic mucosa with focal minimally active inflammation. - No evidence of H. pylori microorganisms on H&E sections. C. Esophagus, biopsy: - Reactive squamous mucosa and inflamed gastric cardia-type mucosa, negative for intestinal metaplasia. 08/30/2024 3:49 PM EDT [facility] at 1549 EDT Gross Description A. [...] 2024 12:14 AM Gross examination performed at [facility], [address] [place] [address] 08/30/2024 3:49 PM EDT [facility] Performing Lab Diagnostic interpretation performed at: [facility], [address] [place] [address], [place] [id number] CLIA# [id number] Touch Up Carver: Jose Heaton MD 08/30/2024 3:49 PM EDT [facility] Disclaimer Laboratory Developed Test (LDT) Disclaimer: Performance characteristics of immunohistochemica l, immunofluorescent, and chromogenic in-situ hybridization tests have been determined by the performing laboratory within [facility]'s Erick Macias Pathology and Laboratory Medicine Department ([facility], [facility], [facility], [facility], [facility], [facility], or [facility]) in a manner consistent with CLIA requirements. One or more of these tests may not have been cleared or approved by the FDA. [facility] is regulated under CLIA as qualified to perform high-complexity testing. These tests are used for clinical purposes. These should not be regarded as investigational or for research. Positive and negative controls stain appropriately. 08/30/2024 3:49 PM EDT [facility] Tissue SPECIMEN FROM ESOPHAGUS OBTAINED BY [...] PATHOLOGY Final Resu lt Performing Organization Address City/State/[facility] Co de Phone Number [facility] [address] [phone], * EGD DIAGNOSTIC (08/29/2024 11:02 AM EDT) Anatomical Region Laterality Modality Other 08/29/2024 11:0 2 AM EDT Narrative 09/09/2024 12:36 PM EDT [facility] Gastroenterology Gastrointestinal Endoscopy Patient Name: Adina Rene Procedure Date: 08/29/2024 11:02 AM Date of : 1995 Admit Type: Outpatient Age: 29 [facility] Gender: Female Note Status: Knife Grinder Override Attending MD: Gene Parson MD, [id number] Procedure: Upper GI endoscopy Indications: Nausea with vomiting Providers: Gene Parson MD Patient Profile: This is a 29 year old female. Refer to note in patient chart for documentation of history and physical. Patient has symptoms of acute dyspepsia and acute vomiting. Referring Physician: Irma Nava CNP (Referring MD), Linnea Esaclante (Referring MD) Medicines: Monitored Anesthesia Care Complications: [...] by the physician, the nurse and the tile power shear operator in the procedure room at 11:11. Mental [...] colonoscopy today. Procedure Code(s): --- Professional --- 26990, Esophagogastroduodenoscopy, flexible, transoral; with biopsy, single or multiple Diagnosis Code(s): --- Professional --- K21.00, Gastro-esophageal reflux disease with esophagitis, without bleeding R11.2, Nausea with vomiting, unspecified CPT copyright 2020 [employer]. All rights reserved. The codes documented in this report are preliminary and upon manager lan review may be revised to meet current compliance requirements. Scope In: 11:15:53 AM Scope Out: 11:20:18 AM MD Gene Sparks MD 08/29/2024 11:23:44 AM This report has been signed electronically by Gene Parson MD Number of Addenda: 0 Note Initiated On: 08/29/2024 11:02 AM Estimated Blood Loss: Estimated blood loss: none. Irma Nava DIRECTOR OF LAND.DRY ROOM OPERATOR DIGESTIVE DISEASE Edited Re sult - Final * EGD - THERAPEUTIC, EUS, OR TUBE INTERVENTIONS (08/29/2024 11:02 AM EDT) Anatomical Region Laterality Modality Other 08/29/2024 11:0 2 AM EDT Narrative 08/29/2024 11:26 AM EDT [facility] Gastroenterology Gastrointestinal Endoscopy Patient Name: Adina Rene Procedure Date: 08/29/2024 11:02 AM Date of : 1995 Admit Type: Outpatient Age: 29 Room: [place] [address] Gender: Female Note Status: Finalized Attending MD: Gene Parson MD, [id number] Procedure: Upper GI endoscopy Indications: Nausea with [...] by the physician, the nurse and the tile power shear operator in the procedure room at 11:11. Mental [...] colonoscopy today. Procedure Code(s): --- Professional --- 81778, Esophagogastroduodenoscopy, flexible, transoral; with biopsy, single or multiple Diagnosis Code(s): --- Professional --- K21.00, Gastro-esophageal reflux disease with esophagitis, without bleeding R11.2, Nausea with vomiting, unspecified CPT copyright 2020 [employer]. All rights reserved. The codes documented in this report are preliminary and upon manager lan review may be revised to meet current compliance requirements. Scope In: 11:15:53 AM Scope Out: 11:20:18 AM MD Gene Sparks MD 08/29/2024 11:23:44 AM This report has been signed electronically by Gene Parson MD Number of Addenda: 0 Note Initiated On: 08/29/2024 11:02 AM Estimated Blood Loss: Estimated blood loss: none. Irma Nava DIRECTOR OF LAND.DRY ROOM OPERATOR DIGESTIVE DISEASE Final Res ult * PT [...] Months Insurance [employer] P[employer] Care Teams Slip Feeder Relationship Specialty Start Date End Date Linnea Escalante PA-C [address] [place] [place] [address] PCP - General Family Medicine 02/03/23 [place] [address] [place] [address] Specialty Stockroom Inventory Clerk Hematology/Oncology 02/10/23
--- OUTSIDE RECORDS SUMMARY | 2024-10-23 19:06 | XMS_ITS | Clinical Summary ---
Author Organization [facility] Address [address] [place] [address] Phone Care Team Providers Care Baby Nurse Name Role Phone Linnea Escalante PA-C Primary Care Provider [phone] Allergies No known active allergies Medications levothyroxine [...] Description 09/12/2024 9:00 AM EDT Office Visit [place] [address] [address] Quique Vargas MD POTS (postural orthostatic tachycardia syndrome); Postural orthostatic tachycardia syndrome (POTS); Acquired hypothyroidism; Type 2 diabetes mellitus without complication, without long-term current use of insulin; Never smoked tobacco; BMI 40.0-44.9, adult (Multi) 09/12/2024 Travel 09/05/2024 Travel 08/28/2024 Orders Only [facility] [address] [place] [address] Nidia Hughes MD 08/28/2024 Scanned Document [facility] [address] [place] [phone] Scanning, Generic Provider 07/23/2024 Telephone [facility] [address] [address] Quique Vargas MD from Last [...] Description 05/06/2025 8:50 AM EST Office Visit [facility] [address] [facility] [address] [place] [phone] Quique Vargas MD [address] [facility] [address] [place] [address] Health Maintenance Due Date Last [...] EDT) 08/28/2024 10:1 0 AM EDT Narrative [facility] - 08/29/2024 5:18 PM EDT [facility] [place] [address] Cardiology Report Signed Patient: Yolie Martinez MR#: [id number] : 1995 Acct:[id number] Age/Sex: 29 / F ADM Date: 08/28/24 Loc: Room: Type: [facility] Attending Dr: Quique Vargas MD Copies to: [...] continue her long-term followup with her primary liquefied natural gas plant operator. Transcribed By: MARY JANE 08/28/24 1738 Dictated By: Nidia Hughes MD 08/28/24 1010 Signed By: <Electronically signed by MD Nidia Hughes> 08/29/24 1718 Nidia Hughes MD CV CARDIAC SERVICES PROCED URES Final Result [facility] [address] [phone], from Last 3 Months Insurance [facility] Care Teams Baby Nurse Relationship Specialty Start Date End Date Linnea Escalante PA-C [address] [place] [address] PCP - General Internal Medicine 04/16/24
--- OUTSIDE RECORDS SUMMARY | 2024-10-23 19:06 | XMS_ITS | Encounter Summary ---
Author Organization [facility] Address [address] [place] [address] Care Team Providers Care Director Search Name Role Phone Linnea Escalante Unavailable [phone] Nickolas Isaacs MD Primary Care Provider [phone] Linnea Escalante Unavailable [phone] Encounter Details Date Type Department Care Team (Late st Contact Info) Description 03/15/2023 Clinisync Result Encounter [facility] External Department Unsolicited Mily Dailey NP [address] [place], [place] [id number] Social History Tobacco Use Types Packs/Day Years [...] often do you attend chur ch or jainism services? 1 to 4 times per year [...] medical care, and heating? Somewhat hard 08/01/2022 [facility] - Occupational [...] [facility] [address] [place] [phone] Linnea Escalante PA [address] [place] [address] 12/20/2024 8:00 AM EDT Office Visit [facility] [address] [place] [address] Linnea Escalante PA [address] [place] [address] documented as of this encounter Procedures Procedure [...] na DAP = na us Mily Dailey [facility] Final Resul t documented in this encounter Visit Diagnoses Not on filedocumented in this encounter Care Teams Director Search Relationship Specialty Start Date End Date Linnea Escalante PA [address] [place] [address] PCP - Medical [place] [employer] 08/11/22 10/03/23 Nickolas Isaacs MD [address] [place] [address] PCP - General Family Medicine 09/28/22 Linnea Escalante PA [address] [place] [address] Physician Shipping Services Sales Representative Family Medicine 09/28/22 documented as of this encounter
--- OUTSIDE RECORDS SUMMARY | 2024-10-23 19:06 | XMS_ITS | Encounter Summary ---
Author Organization [facility] Address [address] [place] [address] Phone Care Team Providers Care Volunteer Services Manager Name Role Phone Linnea Escalante PA-C Primary Care Provider [phone] Encounter Details Date Type Department Care Team (Late st Contact Info) Description 1995 Scanned Document [facility] [address] [place] [phone] Scanning, Generic Provider Social History Tobacco Use [...] Description 05/06/2025 8:50 AM EST Office Visit [facility] [address] [facility] [address] [place] [phone] Quique Vargas MD [address] [facility] [address] [place], [place] [phone] documented as of this encounter Visit Diagnoses Not on filedocumented in this encounter Care Teams Volunteer Services Manager Relationship Specialty Start Date End Date Linnea Esclaante PA-C [address] [place] [address] PCP - General Internal Medicine 04/16/24 documented as of this encounter
--- OUTSIDE RECORDS SUMMARY | 2024-10-23 19:06 | XMS_ITS | Encounter Summary ---
Author Organization [facility] Address [address] [place] [address] Care Team Providers Care Main Line Assembler Name Role Phone Linnea Escalante Unavailable [phone] Nickolas Isaacs MD Primary Care Provider [phone] Linnea Escalante Unavailable [phone] Encounter Details Date Type Department Care Team (Late st Contact Info) Description 07/17/2023 Orders Only [facility] [address] [place] [address] Isi Witt MA Social History Tobacco Use [...] often do you attend chur ch or gnosticism services? 1 to 4 times per year 08/02/2022 Do you belong to any clubs o r organizations such as sikh groups, unions, fraternal or athletic groups, or [...] medical care, and heating? Somewhat hard 08/01/2022 [facility] [place] [facility] Occupat ional Health - Occupational Stress [...] PM EDT Office [facility] [address] [place] [phone] Linnea Escalante PA [address] [place] [address] 12/20/2024 8:00 AM EDT Office Visit [facility] [address] [place] [address] Linnea Escalante PA [address] [place] [address] documented as of this encounter Visit Diagnoses Not on filedocumented in this encounter Care Teams Main Line Assembler Relationship Specialty Start Date End Date Linnea Escalante PA [address] [place] [address] PCP - Medical [place] [employer] 08/11/22 10/03/23 Nickolas Isaacs MD [address] [place] [address] PCP - General Family Medicine 09/28/22 Linnea Escalante PA [address] [place] [address] Physician Vp Patient Family Medicine 09/28/22 documented as of this encounter
--- OUTSIDE RECORDS SUMMARY | 2024-10-23 19:07 | XMS_ITS | CCD ---
Author Organization [facility] Care Team Providers Care Reduction Plant Supervisor Name Role Phone DR GRACIE RAMIREZ Consulting Unavailable DIYA, DR HALL Attending Unavailable DIYA, DR HALL Admitting Unavailable PREET, DR RICK Parsons Consulting Unavailable MD Nickolas Isaacs Primary Care Provider DO Black Zaidi Attending Provider Faby Fay Unavailable Nickolas Isaacs Primary Care Physician Linnea HACKETT Primary Care Physician Faby Gusman Unavailable MD Nickolas Isaacs Primary Care Provider [phone] DO Black Zaidi Attending Provider Linnea Hackett PA-C Primary Care Provider MD Kirk Rush Attending Provider KADY Hackett Primary Care Provider [phone] Linnea Pires Unavailable Nickolas Isaacs MD Primary Care Provider [phone] Linnea Pires Unavailable [phone] KADY Hackett Primary Care Provider DO Black Saleh Attending Provider Gabe GODWIN Attending Unavailable DO Jean Bullard Attending Unavailable REFERRAL, SELF Referring Unavailable Magdi Duong Admitting Unavailable Magdi Duong Attending Unavailable Santos Booker Attending Unavailable aSntos Booker Attending Unavailable Cliff Gusman Attending Unavailable NILL, Gabe R Admitting Unavailable NILL, Gabe R Attending Unavailable NILL, Gabe R Referring Unavailable NILL, Gabe R Attending Unavailable NILL, Gabe R Referring Unavailable NILL, Gabe R Admitting Unavailable IYER, IVETH Herndon Admitting Unavailable IYERIVETH Attending Unavailable Parra, Deon Moffett Admitting Unavailable Parra, Deon Moffett Attending Unavailable ParraDeon segal W Referring Unavailable Linnea HACKETT Attending Unavailable Linnea HACKETT Referring Unavailable Linnea HACKETT Admitting Unavailable SHARMAJACQUELINE Buenrostro Admitting Unavailabl e JACQUELINE SHARMA Attending Unavailabl e Linnea HACKETT Attending Unavailable Linnea HACKETT Admitting Unavailable Linnea HACKETT Admitting Unavailable Linnea HACKETT Attending Unavailable Héctor Christianson Attending Unavailable Linnea HACKETT Referring Unavailable NILDaniel, Gabe Parsons Attending Unavailable Linnea Hackett PA-C Primary Care Provider Maddi Ochoa RN Unavailable Linnea HACKETT Admitting Unavailable Linnea HACKETT Attending Unavailable Cliff Gusman Attending Unavailable Linnea HACKETT Attending Unavailable Linnea HACKETT Admitting Unavailable Linnea Hackett PA-C Primary Care Provider [phone] QUIQUE VAZQUEZ Referring Unavailable LINNEA HACKETT Primary Care Unavailable Linnea Hackett PA-C Primary Care Provider Linnea Hackett PA-C Attending Provider QUIQUE VAZQUEZ Attending Unavailable LINNEA HACKETT Primary Care Unavailable QUIQUE VAZQUEZ Attending Unavailable QUIQUE VAZQUEZ Referring Unavailable LINNEA HACKETT Primary Care Unavailable Quique Vazquez MD Attending Provider Nidia Hughes MD Referring Provider Hialy Mulligan DO Attending Provide r LINNEA HACKETT Primary Care Unavailabl e KIMBERLY NAVA Referring Unavailable ROXANNLINNEA PATTON Primary Care Unavailabl e RUDDY SLATER Referring Unavailable PACKKIMBERLY Attending Unavailable ROXANNLINNEA PATTON Primary Care Unavailabl e BOBO PARSON Attending Unavailable PACK, KIMBERLY Referring Unavailable MOSHE MANRIQUEZ Attending Unavailable LINNEA HACKETT Primary Care Unavailabl e NO FAMILY, PHYSICIAN Primary Care Provider Unava ilable [facility] Black BELTRAN Attending Provider Haily Mulligan Attending Unav ailable Haily Mulligan Admitting Unav ailable Nidia Hughes Referring Unavailable Quique Vazquez Attending Unavailable Quique Vazquez Admitting Unavailable Roxann, Linnea Herndon Primary Care Unavailable Roxann, Linnea Herndon Admitting Unavailable Roxann, Linnea Herndon Attending Unavailable Roxann, Linnea Herndon Primary Care Unavailable NO FAMILY, PHYSICIAN [facility] Ad[facility] Unavailable ROXANNLINNEA Attending Unavailable ROXANN, LINNEA Herndon Attending Unavailable ROXANN, LINNEA Herndon Attending Unavailable DB KEANE Attending Unavailable ROXANN, LINNEA Herndon Attending Unavailable ROXANN, LINNEA Herndon Attending Unavailable Allergies Allergy Classification Reported Allergen(s) Allergy Type Date of Onset Reaction(s) Facility Bee/Wasp/Ant Venom (2 sources) Bee/Wasp/Ant venom Substance Allergy Anaphylaxis [facility] raspberry extract (2 sources) raspberry extract; Translations: [raspberry] Drug Allergy Eruption of skin (disorder) [facility] (20 sources) Bee/Wasp/Ant venom; Translations: [Bee Stings] Allergy to substance 4 Weal (disorder), Swelling (morphologic abnormality) [facility] (20 sources) raspberry extract; Translations: [raspberry] Drug Allergy 4 Eruption of skin (disorder) [facility] (9 sources) [place]; Translations: [BERRIES] Food Allergy 3 Hives [facility] (9 sources) Bees; Translations: [BEES] Allergy to substance 3 Anaphylaxis [facility] (20 sources) Honey bee venom Allergy to substance 3 Hives, Anaphylaxis [facility] (20 sources) raspberry allergenic extract Drug Allergy 3 Rash, Anaphylaxis [facility] (20 sources) Food Propensity to adverse reactions 0 Rash [facility] (20 sources) Other Propensity to adverse reactions 0 Unknown [facility] Work Phone: Medications Current Medications Medication Drug Class(es) Dates Sig (Normalized) Sig (Original) acetaminophen 325 mg / HYDROcodone bitartrate 5 mg oral tablet (8 sources) Opioid Agonist Start: 09-17-2024 take 1 tablet by mouth every four hours as needed HYDROcodone-aceta minophen ([place]) 5-325 MG tablet Take 1 tablet by mouth every 4 (four) hours if needed 09/17/2024 Active Start: 04-06-2023 take 1 tablet by mouth every s ix hours as needed for pain Albuterol (Eqv-ProAir HFA) 90 mcg/inh inhalation aerosol (9 sources) Start: 12-12-2022 take 1 puff(s) by inhalation every six hours Albuterol (Eqv-ProAir HFA) 90 mcg/inh inhalation aerosol 1 puff(s), Inhalation, q6hr Shortness of breath or wheezing, Refill(s) 0 Start Date: 12/12/22 Status: Ordered Albuterol-Budesonide (Airsupra) 90-80 MCG/ACT aerosol (20 sources) Start: 05-31-2023 take 2 puff(s) by inhalation every four hours Albuterol-Budesonide (Airsupra) 90-80 MCG/ACT aerosol Indications: Mild intermittent asthma without complication (HCC) Inhale 2 puffs every 4 (four) hours if needed (SOB/wheezing) 10.7 g 5 05/31/2023 Active Start: 05-31-2023 take 2 puff(s) by in halation every four hours Albuterol-Budesonide (Airsupra) 90-80 MCG/ACT aerosol Indications: Mild intermittent asthma without complication (CMS/HCC) Inhale 2 puffs every 4 (four) hours if needed (SOB/wheezing) 10.7 g 5 05/31/2023 Active albuterol-budesonide HFA (AIRSUPRA) 90-80 mcg/actuation inhaler (3 sources) Start: 05-31-2023 take 2 puff(s) by inhalation every four hours as needed albuterol-budesonide HFA (AIRSUPRA) 90-80 mcg/actuation inhaler Inhale 2 puffs as instructed every 4 hours as needed. 05/31/2023 Active brompheniramine maleate 0.4 mg/ml / dextromethorphan hydrobromide 2 mg/ml / pseudoephedrine hydrochloride 6 mg/ml oral solution (3 sources) alpha-Adrenergic Agonist, Uncompetitive L-wjwfee-A-aspar zeng Receptor Antagonist, Sigma-1 Agonist Start: 05-26-2023 take 5 mL by mouth four times daily Bromfed DM oral syrup 5 mL, Oral, QID for cold symptoms, 200 mL, Refill(s) 0, [facility]/pharmacy #[id number], 173, cm, 05/25/23 22:46:00 EDT, Height/Length Dosing, 130.4, kg, 05/25/23 22:46:00 EDT, Weight Dosing Start Date: 05/26/23 Status: Ordered busPIRone hydrochloride 10 mg oral tablet (15 sources) Start: 11-24-2021 take 10 mg by mouth once daily busPIRone 10 mg, Oral, Daily, Refills(s) 0 Start Date: 11/24/21 Status: Ordered take 1 tablet by sheba th every twelve hours busPIRone HCl 10 MG 1 tablet Orally Twic e a day Active cyclobenzaprine hydrochloride 10 mg oral tablet (15 sources) Muscle Relaxant Start: 01-04-2022 take 1 tablet by mouth three times daily as needed for pain cyclobenzaprine 10 mg Tab 10 mg = 1 tab(s), Oral, TID, PRN Muscle pain, # 20 tab(s), Refills(s) 0, Pharmacy: [facility]/pharmacy #[id number], 174, cm, 01/04/22 0:47:00 EDT, Height/Length Dosing, 121.7, kg, 01/04/22 0:47:00 EDT, Weight Dosing Start Date: 01/04/22 Status: Ordered End: 10-31-2024 cyclobenzaprine (Flexeril) 5 MG tablet Take by mouth 10/31/2024 Active dextromethorphan hydrobromide 3 mg/ml / promethazine hydrochloride 1.25 mg/ml oral solution (20 sources) Phenothiazine, Uncompetitive R-hhwres-H-aspartate Receptor Antagonist, Sigma-1 Agonist Start: 01-08-2024 promethazine-dextromethorpha n (Phenergan-DM) 6.25-15 MG/5ML syrup Indications: Viral upper respiratory tract infection , Mild intermittent asthma without complication (HCC) Take 5 mL by mouth every 6 (six) hours if needed for cough 240 mL 01/08/2024 Active dicyclomine hydrochloride 10 mg oral capsule (16 sources) Anticholinergic Start: 02-14-2023 End: 02-21-2023 take 1 capsul e by mouth four times daily Bentyl 10 mg Cap 10 mg = 1 cap(s), Oral, QID, X 7 day(s), # 28 cap(s), Refills(s) 0, Pharmacy: [facility]/pharmacy #[id number], 173, cm, 02/14/23 2:34:00 EST, Height/Length Dosing, 119.3, kg, 02/14/23 2:34:00 EST, Weight Dosing Start Date: 02/14/23 Stop Date: 02/21/23 Status: Ordered Start: 02-14-2020 take 1 tablet by sheba th four times daily dicyclomine 20 mg Tab 20 mg = 1 tab(s), Oral, QID, # 12 tab(s), Refills(s) 0, Pharmacy: [facility]/pharmacy #[id number], 173, cm, 02/14/20 3:19:00 EST, Height/Length Dosing, 120, kg, 02/14/20 3:19:00 EST, Weight Dosing Start Date: 02/14/20 Status: Ordered doxycycline monohydrate 100 mg oral tablet (1 source) Tetracycline-class Drug Start: 10-13-2023 End: 10-20-2023 take 1 tablet by mouth twice daily doxycycline monohydrate 100 mg oral tablet 100 mg = 1 tab(s), Oral, BID, X 7 day(s), # 14 tab(s), Refills(s) 0, Pharmacy: [facility]/pharmacy #[id number], 173, cm, 10/13/23 7:45:00 EDT, Height/Length Dosing, 124.7, kg, 10/13/23 7:45:00 EDT, Weight Dosing Start Date: 10/13/23 Stop Date: 10/20/23 Status: Ordered famotidine 20 mg oral tablet (16 sources) Histamine-2 Receptor Antagonist Start: 02-14-2023 End: 02-21-2023 take 1 tablet by mouth once daily Pepcid 20 mg Tab 20 mg = 1 tab(s), Oral, Daily, X 7 day(s), # 7 tab(s), Refills(s) 0, Pharmacy: [facility]/pharmacy #[id number], 173, cm, 02/14/23 2:34:00 EST, Height/Length Dosing, 119.3, kg, 02/14/23 2:34:00 EST, Weight Dosing Start Date: 02/14/23 Stop Date: 02/21/23 Status: Ordered Start: 02-14-2020 take 1 tablet by sheba th twice daily Pepcid 20 mg Tab 20 mg = 1 tab(s), Oral, BID, # 15 tab(s), Refills(s) 0, Pharmacy: [facility]/pharmacy #[id number], 173, cm, 02/14/20 3:19:00 EST, Height/Length Dosing, 120, kg, 02/14/20 3:19:00 EST, Weight Dosing Start Date: 02/14/20 Status: Ordered FLUoxetine 10 mg oral capsule (20 sources) Serotonin Reuptake Inhibitor Start: 11-24-2021 take 1 capsule by mouth once daily Prozac 10 mg Cap 10 mg = 1 cap(s), Oral, Daily, Refills(s) 0, Anxiety Start Date: 11/24/21 Status: Ordered take 1 capsule by mouth once diane ly FLUoxetine (PROZAC) 20 mg capsule Take 20 mg by mouth once daily. Active Comment on above: Take 20 mg by mouth once daily. iv contrast (will be provided with radiology test) (2 sources) Start: 02-08-2023 End: 02-09-2023 iv contrast (will be provided with radiology test) CT Chest W -Inject, intravenously, once for 1 dose.No IV access, insert saline lock prior to the beginning of sedation, infusion, injection of imaging exam. Discontinue saline lock post exam. If Pt. has a central line or IVAD, may access for administration according to line specific nursing protocol. Once exam is complete flush line and de-access according to line specific nursing protocol in the CT contrast administration guidelines link. 1 Each 0 02/08/2023 02/09/2023 Active Start: 02-03-2023 End: 02-04-2023 iv contrast (will be provide d with radiology test) MRI ABD/PEL Inject, intravenously, once for 1 dose. No IV access, insert saline lock prior to the beginning of sedation, infusion, injection of imaging exam. Discontinue saline lock post exam. If Pt. has a central line or IVAD, may access for administration according to line specific nursing protocol. Once exam is complete flush line and de-access according to line specific nursing protocol in the MR contrast administration guidelines link. 1 Each 0 02/03/2023 02/04/2023 Active Comment on above: MRI ABD/PEL Inject, intravenously, once for 1 dose. No IV access, insert saline lock prior to the beginning of sedation, infusion, injection of imaging exam. Discontinue saline lock post exam. If Pt. has a central line or IVAD, may access for administration according to line specific nursing protocol. Once exam is complete flush line and de-access according to line specific nursing protocol in the MR contrast administration guidelines link. CT Chest W -Inject, intravenously, once for 1 dose.No IV access, insert saline lock prior to the beginning of sedation, infusion, injection of imaging exam. Discontinue saline lock post exam. If Pt. has a central line or IVAD, may access for administration according to line specific nursing protocol. Once exam is complete flush line and de-access according to line specific nursing protocol in the CT contrast administration guidelines link. levothyroxine sodium 0.112 mg oral tablet (20 sources) l-Thyroxine Start: 025 take 1 tablet by mouth before mealtime levothyroxine (Synthroid) 112 MCG tablet Indications: Acquired hypothyroidism Take 1 tablet (112 mcg) by mouth in the morning. Take before meals. 30 tablet 3 04/18/2024 Active Start: 01-16-2023 End: 04-18-2024 take 1 tablet by mouth once daily Start: 12-09-2022 take 1 capsule by [facility] daily levothyroxine 137 mcg (0.137 mg) oral capsule 137 mcg = 1 cap(s), Oral, Daily, Refills(s) 0, Thyroid Start Date: 12/09/22 Status: Ordered Start: 12-13-2019 take 1 tablet by sheba th once daily levothyroxine 50 mcg (0.05 mg) Tab 50 microgram = 1 tab(s), Oral, Daily, Refills(s) 0, Thyroid Start Date: 12/13/19 Status: Ordered take 1 tablet by sheba th once daily in the morning Levothyroxine Sodium 75 MCG 1 tablet in the morning on an empty stomach Orally Once a day Active Comment on above: Take 100 mcg by mout h daily before breakfast. 24 hr metFORMIN hydrochloride 500 mg extended release oral tablet (20 sources) Biguanide Start: End: take 2 tablets by mouth every twenty-four hours at mealtime metFORMIN XR (Glucophage-XR) 500 MG 24 hr tablet Indications: Encounter for weight management , Weight gain Take 2 tablets (1,000 mg) by mouth in the evening. Take with meals Do not crush, chew, or split. 60 tablet 11 10/23/2024 10/23/2025 Active Start: 04-22-2024 End: 10-23-2024 take 1 tablet by mouth every twenty-four hours at mealtime metFORMIN XR (Glucophage-XR) 500 MG 24 hr tablet Indications: Encounter for weight management Take 1 tablet (500 mg) by mouth in the evening. Take with meals Do not crush, chew, or split. 30 tablet 11 04/22/2024 10/23/2024 Discontinued (Reorder) Start: 04-22-2024 End: 05-22-2024 take 1 tablet by mouth once daily metFORMIN XR 500 mg 24 hr tablet Take 1 tablet (500 mg) by mouth once daily. 04/22/2024 Active Start: 11-30-2022 take 1 tablet by sheba th once daily metformin 500 mg ER Tab 500 mg = 1 tab(s), Oral, Daily, Refills(s) 0, Other (see comment) Start Date: 11/30/22 Status: Ordered Comment on above: Take 500 mg by mouth daily with breakfast. methocarbamol 750 mg oral tablet (1 source) Muscle Relaxant Start: End: take 1 tablet by mouth three times daily Robaxin-750 oral tablet 750 mg = 1 tab(s), Oral, TID, X 7 day(s), # 21 tab(s), Refills(s) 0, Pharmacy: [facility]/pharmacy #[id number], 173, cm, 10/13/23 7:45:00 EDT, Height/Length Dosing, 124.7, kg, 10/13/23 7:45:00 EDT, Weight Dosing Start Date: 10/13/23 Stop Date: 10/20/23 Status: Ordered metoclopramide 5 mg oral tablet (13 sources) Dopamine-2 Receptor Antagonist Start: take 1 tablet by mouth every six hours as needed metoclopramide (Reglan) 5 MG tablet Take 5 mg by mouth every 6 (six) hours if needed 06/21/2024 Active 24 hr metoprolol succinate 50 mg extended release oral tablet (1 source) beta-Adrenergic Ruslan Start: End: take 1 tablet by mouth once daily metoprolol succinate XL (Toprol-XL) 50 mg 24 hr tablet Indications: Postural orthostatic tachycardia syndrome (POTS) Take 1 tablet (50 mg) by mouth once daily. Do not crush or chew. 90 tablet 3 09/12/2024 09/12/2025 Active naproxen 500 mg oral tablet (9 sources) Nonsteroidal Anti-inflammatory Drug Start: 023 take 1 tablet by mouth twice daily Naprosyn 500 mg Tab 500 mg = 1 tab(s), Oral, BID, # 20 tab(s), Refills(s) 0, Pharmacy: [facility]/pharmacy #[id number], 170, cm, 12/26/22 14:57:00 EDT, Height/Length Dosing, 115.4, kg, 12/26/22 14:57:00 EDT, Weight Dosing Start Date: 12/26/22 Status: Ordered nitrofurantoin, macrocrystals 25 mg / nitrofurantoin, monohydrate 75 mg oral capsule (3 sources) Nitrofuran Antibacterial Start: End: take 1 capsule by mouth in the morning nitrofurantoin, macrocrystal-monohydr ate, (Macrobid) 100 MG capsule Indications: Acute cystitis with hematuria Take 1 capsule (100 mg) by mouth in the morning and 1 capsule (100 mg) before bedtime. Do all this for 7 days. 14 capsule 07/08/2024 07/15/2024 Active omeprazole 20 mg delayed release oral capsule (19 sources) Proton Pump Inhibitor Start: End: 026 take 1 capsule by mouth in the morning omeprazole (PriLOSEC) [address] capsule Take 20 mg by mouth in the morning. 04/19/2024 07/13/2025 Active take 1 tablet by mouth once cornelius y PriLOSEC OTC 20 MG 1 tablet 30 minutes before morning meal Orally Once a day Active pantoprazole 40 mg delayed release oral tablet (8 sources) Proton Pump Inhibitor Start: 08-29-2024 End: 11-27-2024 take 1 tablet by mouth once daily pantoprazole DR (PROTONIX) 40 mg tablet Take 1 tablet by mouth once daily. 90 tablet 08/29/2024 11/27/2024 Active phentermine hydrochloride 37.5 mg oral tablet (10 sources) Sympathomimetic Amine Anorectic Start: 11-30-2022 take 1 tablet by mouth once daily Adipex-P 37.5 mg Tab 37.5 mg = 1 tab(s), Oral, Daily, Refills(s) 0 Start Date: 11/30/22 Status: Ordered predniSONE 20 mg oral tablet (7 sources) Start: 10-13-2023 take 3 tablets by mouth once daily predniSONE 20 mg Tab 3, Oral, Daily, # 15 tab(s), Refills(s) 0, Pharmacy: [facility]/pharmacy #[id number], 173, cm, 10/13/23 7:45:00 EDT, Height/Length Dosing, 124.7, kg, 10/13/23 7:45:00 EDT, Weight Dosing Start Date: 10/13/23 Status: Ordered Start: 10-14-2022 End: 10-19-2022 take 3 tablets by mouth once daily predniSONE 20 mg Tab 60 mg = 3 tab(s), Oral, Daily, X 5 day(s), # 15 tab(s), Refills(s) 0, Pharmacy: [facility]/pharmacy #[id number], 172, cm, 10/14/22 16:35:00 EDT, Height/Length Dosing, 122.5, kg, 10/14/22 16:35:00 EDT, Weight Dosing Start Date: 10/14/22 Stop Date: 10/19/22 Status: Ordered take 1 tablet by sheba th once daily predniSONE (Deltasone) 10 MG tablet Take 10 mg by mouth Daily Active Promethazine (18 sources) Phenothiazine Start: 10-13-2023 take 5 mL by mouth every six hours for cough Promethazine DM oral syrup 5 mL, Oral, q6hr for cough, 120 mL, Refill(s) 0, [facility]/pharmacy #[id number], 173, cm, 10/13/23 7:45:00 EDT, Height/Length Dosing, 124.7, kg, 10/13/23 7:45:00 EDT, Weight Dosing Start Date: 10/13/23 Status: Ordered Start: 11-26-2021 take 12.5 mg rectal route every four hours as needed for nausea promethazine 12.5 mg Supp 12.5 mg = 1 supp, Rectal, q4hr, PRN for nausea/vomiting, # 12 supp, Refills(s) 0, Pharmacy: [facility], 172, cm, 11/26/21 18:14:00 EDT, Height/Length Dosing, 120.5, kg, 11/26/21 18:14:00 EDT, Weight Dosing Start Date: 11/26/21 Status: Ordered Start: 11-24-2021 End: 11-29-2021 take 1 tablet by mouth every six hours as needed for nausea promethazine 12.5 mg oral tablet 12.5 mg = 1 tab(s), Oral, q6hr, PRN for nausea/vomiting, X 5 day(s), # 20 tab(s), Refills(s) 0, Pharmacy: [facility], 172.7, cm, 11/24/21 21:47:00 EDT, Height/Length Dosing, 120.5, kg, 11/24/21 21:47:00 EDT, Weight Dosing Start Date: 11/24/21 Stop Date: 11/29/21 Status: Ordered Zofran ODT 4 mg Tab-Dis (17 sources) Start: 05-26-2023 take 1 tablet by mouth every eight hours Zofran ODT 4 mg Tab-Dis 4 mg = 1 tab(s), Oral, q8hr, # 12 tab(s), Refills(s) 0, Pharmacy: [facility]/pharmacy #[id number], 173, cm, 05/25/23 22:46:00 EDT, Height/Length Dosing, 130.4, kg, 05/25/23 22:46:00 EDT, Weight Dosing Start Date: 05/26/23 Status: Ordered Start: 02-14-2020 take 1 tablet by sheba th every eight hours Zofran ODT 4 mg Tab-Dis 4 mg = 1 tab(s), Oral, q8hr, # 10 tab(s), Refills(s) 0, [id number], cm, 02/14/20 3:19:00 EST, Height/Length Dosing, 120, kg, 02/14/20 3:19:00 EST, Weight Dosing Start Date: 02/14/20 Status: Ordered Completed/Discontinued Medications Medication Drug Class(es) Dates Sig (Normalized) Sig (Original) albuterol 0.83 mg/ml inhalation solution (20 sources) beta2-Adrenergic Agonist Start: 01-08-2024 End: 01-07-2025 albuterol (2.5 MG/3ML) 0.083% nebulizer solution Indications: Viral upper respiratory tract infection , Mild intermittent asthma without complication (HCC) Take 3 mL (2.5 mg) by nebulization every 6 (six) hours if needed for wheezing 75 mL 11 01/08/2024 10/14/2024 Discontinued (Therapy completed) take 2 puff(s) by in halation every four hours for wheezing albuterol HFA 90 mcg/act inhaler Inhale 2 puffs every 4 (four) hours if needed for wheezing Active azithromycin 250 mg oral tablet (20 sources) Macrolide Antimicrobial Start: 01-08-2024 End: 10-14-2024 azithromycin (Zithromax) 250 MG tablet Indications: Viral upper respiratory tract infection , Mild intermittent asthma without complication (HCC) Take 2 tabs PO x 1 day then 1 tab PO daily x 4 days 6 tablet 01/08/2024 10/14/2024 Discontinued (Therapy completed) cholecalciferol 0.025 mg oral capsule (20 sources) Vitamin D End: 10-14-2024 take 2 capsules by mouth once daily cholecalciferol (Vitamin D-3) 25 MCG (1000 UT) capsule Take 2 capsules by mouth Daily 10/14/2024 Discontinued (Therapy completed) Comment on above: Take 1,000 Units by mouth once daily. {21 (Desogestrel 0.15 MG / Ethinyl Estradiol 0.03 MG Oral Tablet) / 7 (Inert Ingredients 1 MG Oral Tablet) } Pack [Isibloom 28 Day] (10 sources) Progestin, Estrogen Start: 12-12-2022 take 1 tablet by mouth once daily Isibloom 0.15 mg-0.03 mg oral tablet 1 tab(s), Oral, Daily, Refill(s) 0, control/menstrual regulation Start Date: 12/12/22 Status: Ordered Start: 11-30-2022 take 1 tablet by sheba th once daily Apri oral tablet 1 tab(s), Oral, Daily, Refill(s) 0 Start Date: 11/30/22 Status: Ordered drospirenone 4 mg oral tablet (20 sources) Progestin Start: 10-18-2023 End: 10-14-2024 take 1 tablet by mouth once daily Drospirenone (Slynd) 4 MG tablet Indications: Menorrhagia with regular cycle Take 4 mg by mouth Daily 28 tablet 11 10/18/2023 10/14/2024 Discontinued (Therapy completed) Fluticasone-Umeclidi n-Vilant (Trelegy Ellipta) 200-62.5-25 MCG/ACT aerosol powder (20 sources) Start: 05-31-2023 End: 10-23-2024 take 1 puff(s) by inhalation once daily Fluticasone-Umeclid in-Vilant (Trelegy Ellipta) 200-62.5-25 MCG/ACT aerosol powder Indications: Mild intermittent asthma without complication (HCC) Inhale 1 puff Daily 1 each 5 05/31/2023 10/23/2024 Discontinued Start: 05-31-2023 take 1 puff(s) by inhalation once daily Psqgmpuguig-Xsuhevhon-Dkxxln (Trelegy Ellipta) 200-62.5-25 MCG/ACT aerosol powder Indications: Mild intermittent asthma without complication (HCC) Inhale 1 puff Daily 1 each 5 05/31/2023 Active Start: 05-31-2023 take 1 puff(s) by inhalation once daily Orfdlvgxxln-Qbaoubhsc-Ekasvf (Trelegy Ellipta) 200-62.5-25 MCG/ACT aerosol powder Indications: Mild intermittent asthma without complication (CMS/HCC) Inhale 1 puff Daily 1 each 5 05/31/2023 Active methylPREDNISolone (20 sources) Corticosteroid Start: 01-08-2024 End: 10-14-2024 methylPREDNISolone (Medrol Dospak) 4 MG tablets Indications: Non-recurrent acute serous otitis media of right ear Follow schedule on package instructions 21 tablet 01/08/2024 10/14/2024 Discontinued (Therapy completed) Start: 01-08-2024 methylPREDNISo lone (Medrol Dospak) 4 MG tablets Indications: Non-recurrent acute serous otitis media of right ear Follow schedule on package instructions 21 tablet 01/08/2024 Active ondansetron 4 mg oral tablet (7 sources) Serotonin-3 Receptor Antagonist Start: 11-23-2021 End: 04-04-2023 take 1 tablet by mouth every six hours as needed for nausea and vomiting Ondansetron Hcl 4 mg tablet Discontinued 4 MG PO Q6H as needed for nausea and vomiting November 23, 2021 6:38pm April 04, 2023 5:52pm topiramate 100 mg oral tablet (20 sources) Start: 06-17-2023 End: 10-14-2024 take 1 tablet by mouth at bedtime topiramate (Topamax) 100 MG tablet Indications: Intractable chronic migraine without aura and without status migrainosus Take 1 tablet (100 mg) by mouth at bedtime 30 tablet 11 06/17/2023 10/14/2024 Discontinued (Therapy completed) Toradol 30 mg/ml (1 source) Start: 03-22-2022 Toradol 30 mg/ ml Mar, 60 mg ubrogepant 100 mg oral tablet (11 sources) Start: 07-18-2023 End: 10-14-2024 take 1 tablet by mouth once daily as needed, then take 2 tablets by mouth every twenty-four hours as needed Ubrelvy 100 MG tablet TAKE 1 TABLET BY MOUTH DAILY NEEDED. MAY REPEAT in 2 hours. max of 2 TABLETS in 24 hours. 07/18/2023 10/14/2024 Discontinued (Therapy completed) Problems Active Problems Problem Classification Problem Date Documented Da te Episodic/Chronic Administrative/social admission (2 sources) Patient encounter status; Translations: [Persons encountering health services in other specified circumstances] 10-23-2024 Episodic Anxiety disorders (20 sources) Anxiety; Translations: [Anxiety disorder] Onset: 08-02-2022 11-30-2022 Chronic Asthma (20 sources) Mild intermittent asthma; Translations: [Mild intermittent asthma, uncomplicated] Onset: 12-27-2022 12-27-2022 Chronic Cancer of bone and connective tissue (20 sources) Sarcoma; 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, unspecified] Onset: 03-28-2023 03-28-2023 Chronic Cancer; other and unspecified primary (2 sources) History of soft tissue sarcoma; Translations: [Personal history of malignant neoplasm of soft tissue] 02-08-2023 Episodic Cardiac dysrhythmias (6 sources) Postural orthostatic tachycardia syndrome ; Translations: [Postural orthostatic tachycardia syndrome (POTS)] Onset: 05-08-2024 05-08-2024 Chronic Diabetes mellitus without complication (4 sources) Type 2 diabetes mellitus; Translations: [Type 2 diabetes mellitus without complications] Onset: 09-12-2024 09-12-2024 Chronic Headache; including migraine (20 sources) Migraine, unspecified, not intractable, without status migrainosus; Translations: [Migraine] Onset: 02-14-2023 Chronic Menstrual disorders (6 sources) Excessive and frequent menstruation with regular cycle; Translations: [Amenorrhea] Onset: 11-12-2020 Chronic Neoplasms of unspecified nature or uncertain behavior (2 sources) Neoplasm of soft tissue; Translations: [Neoplasm of unspecified behavior of bone, soft tissue, and skin] 02-03-2023 Episodic Nonspecific chest pain (4 sources) Chest pain; Translations: [Chest pain, unspecified] Onset: 11-24-2021 Episodic Other and unspecified benign neoplasm (2 sources) Lipoma of skin and subcutaneous tissue of trunk; Translations: [Benign lipomatous neoplasm of skin and subcutaneous tissue of trunk] Onset: 12-09-2022 Episodic Other endocrine disorders (20 sources) Polycystic ovary syndrome; Translations: [Polycystic ovarian syndrome] Onset: 02-14-2023 12-22-2022 Chronic Other gastrointestinal disorders (1 source) Abdominal bloating; Translations: [Abdominal distension (gaseous)] 08-29-2024 Episodic Other gastrointestinal disorders (1 source) Abdominal distension (gaseous); Translations: [Abdominal bloating] Onset: 07-30-2024 Episodic Other lower respiratory disease (3 sources) Dyspnea; Translations: [Dyspnea, unspecified] Onset: 11-24-2021 Episodic Other nutritional; endocrine; and metabolic disorders (20 sources) Body mass index 30+ - obesity; Translations: [Body mass index (BMI) 38.0-38.9, adult] Onset: 01-30-2011 12-09-2022 Chronic Other nutritional; endocrine; and metabolic disorders (20 sources) Morbid obesity; Translations: [Morbid (severe) obesity due to excess calories] Onset: 10-11-2019 11-30-2022 Chronic Other nutritional; endocrine; and metabolic disorders (20 sources) Obesity caused by energy imbalance; Translations: [Morbid (severe) obesity due to excess calories] Onset: 01-10-2020 08-02-2022 Chronic Other nutritional; endocrine; and metabolic disorders (5 sources) Body mass index 40+ - severely obese; Translations: [Body mass index (BMI) 40.0-44.9, adult] Onset: 05-08-2024 05-08-2024 Chronic Other nutritional; endocrine; and metabolic disorders (2 sources) Body mass index (BMI) 40.0-44.9, adult; Translations: [Body mass index (BMI) 40.0-44.9, adult (Multi)] Onset: 05-08-2024 Chronic Other nutritional; endocrine; and metabolic disorders (1 source) Abnormal weight loss; Translations: [Unintentional weight loss] Onset: 07-30-2024 Episodic Other nutritional; endocrine; and metabolic disorders (2 sources) Weight increased; Translations: [Abnormal weight gain] 10-23-2024 Episodic Otitis media and related conditions (2 sources) Acute non-suppurative otitis media - serous; Translations: [Acute serous otitis media, right ear] 01-08-2024 Episodic Pleurisy; pneumothorax; pulmonary collapse (1 source) Pleurisy; Translations: [Pleurisy] Onset: 12-26-2022 Episodic Pneumonia (except that caused by tuberculosis or sexually transmitted disease) (1 source) Pneumonia; Translations: [Pneumonia, unspecified organism] Onset: 10-13-2023 Episodic Poisoning by nonmedicinal substances (1 source) Poisoning by bee sting; Translations: [Toxic effect of venom of bees, accidental (unintentional), initial encounter] Onset: 10-14-2022 Episodic Residual codes; unclassified (2 sources) Family history of cancer; Translations: [Family history of malignant neoplasm, unspecified] 02-08-2023 Episodic Residual codes; unclassified (5 sources) Never smoked tobacco; Translations: [Other specified health status] Onset: 05-08-2024 05-08-2024 Episodic Spondylosis; intervertebral disc disorders; other back problems (1 source) Neck pain; Translations: [Cervicalgia] Onset: 01-04-2022 Episodic Sprains and strains (1 source) Injury of muscle and tendon at neck level; Translations: [Strain of muscle, fascia and tendon at neck level, initial encounter] Onset: 10-13-2023 Episodic Thyroid disorders (20 sources) Hypothyroidism; Translations: [Acquired hypothyroidism] Onset: 10-11-2019 12-13-2019 Chronic Past or Other Problems Problem Classification Problem Date Documented Da te Episodic/Chronic Abdominal pain (20 sources) Lower abdominal pain; Translations: [Abdominal pain] Onset: 09-29-2022 11-30-2022 Episodic Acute bronchitis (20 sources) Acute bronchitis co-occurrent with wheeze; Translations: [Acute bronchitis, unspecified] Onset: 03-16-2023 03-16-2023 Episodic Biliary tract disease (20 sources) Calculus of gallbladder with cholecystitis; Translations: [Calculus of gallbladder with chronic cholecystitis without obstruction] Onset: 03-16-2023 03-16-2023 Episodic Cardiac dysrhythmias (20 sources) Palpitations; Translations: [Tachycardia] Onset: 04-16-2024 04-16-2024 Episodic Chronic obstructive pulmonary disease and bronchiectasis (20 sources) Bronchitis; Translations: [Bronchitis, not specified as acute or chronic] Onset: 03-09-2023 03-09-2023 Episodic Conditions associated with dizziness or vertigo (20 sources) Vertigo of central origin; Translations: [Vertigo of central origin] Onset: 06-05-2023 06-05-2023 Episodic Diabetes mellitus without complication (20 sources) Prediabetes; Translations: [Prediabetes] Onset: 02-14-2023 Resolved: 05-26-2023 02-14-2023 Episodic Joint disorders and dislocations; trauma-related (20 sources) Tear of lateral meniscus of knee; Translations: [Other tear of lateral meniscus, current injury, unspecified knee, initial encounter] Onset: 08-02-2022 12-13-2019 Episodic Comment on above: right Malaise and fatigue (20 sources) Fatigue; Translations: [Other post infection and related fatigue syndromes] Onset: 08-02-2022 08-02-2022 Episodic Mood disorders (20 sources) Depressive disorder; Translations: [Depression] Onset: 02-14-2023 Resolved: 05-26-2023 11-30-2022 Chronic Nausea and vomiting (20 sources) Nausea; Translations: [Nausea] Onset: 12-27-2022 Resolved: 05-26-2023 12-27-2022 Episodic Other and unspecified benign neoplasm (20 sources) Lipoma of abdominal wall; Translations: [Benign lipomatous neoplasm of skin and subcutaneous tissue of trunk] Onset: 02-14-2023 Resolved: 05-26-2023 12-09-2022 Episodic Other circulatory disease (4 sources) Postural orthostatic tachycardia syndrome ; Translations: [Postural orthostatic tachycardia syndrome (POTS)] Onset: 05-08-2024 05-08-2024 Episodic Other connective tissue disease (20 sources) Muscle pain; Translations: [Myalgia, unspecified site] Onset: 08-02-2022 Resolved: 05-26-2023 08-02-2022 Episodic Other gastrointestinal disorders (20 sources) Central abdominal mass; Translations: [Periumbilic swelling, mass or lump] Onset: 11-22-2022 11-30-2022 Episodic Other infections; including parasitic (20 sources) Personal history of other infectious and parasitic diseases; Translations: [Personal history of COVID-19] Onset: 08-02-2022 08-02-2022 Episodic Other injuries and conditions due to external causes (20 sources) H/O: injury; Translations: [Personal history of other (healed) physical injury and trauma] Onset: 02-14-2023 11-30-2022 Episodic Other nervous system disorders (20 sources) Acute postoperative pain; Translations: [Other acute postprocedural pain] Onset: 05-26-2023 Resolved: 05-26-2023 04-06-2023 Episodic Other nutritional; endocrine; and metabolic disorders (1 source) Anorexia; Translations: [Decreased appetite] Onset: 06-21-2024 Episodic Other skin disorders (20 sources) Mass of subcutaneous tissue of abdominal wall; Translations: [Localized swelling, mass and lump, trunk] Onset: 02-14-2023 01-12-2023 Episodic Other skin disorders (20 sources) Pharyngeal swelling; Translations: [Localized swelling, mass and lump, neck] Onset: 04-16-2024 04-16-2024 Episodic Other upper respiratory infections (20 sources) Frontal sinusitis; Translations: [Chronic frontal sinusitis] Onset: 08-02-2022 Resolved: 10-12-2022 10-12-2022 Chronic Other upper respiratory infections (20 sources) Acute upper respiratory infection, unspecified; Translations: [Acute recurrent frontal sinusitis] Onset: 03-28-2023 Episodic Residual codes; unclassified (20 sources) Face goes red; Translations: [Flushing] Onset: 08-02-2022 Resolved: 05-26-2023 08-02-2022 Episodic Residual codes; unclassified (2 sources) Other specified health status; Translations: [Other specified health status] Onset: 05-08-2024 Episodic Superficial injury; contusion (20 sources) Superficial injury of neck; Translations: [Superficial foreign body of unspecified part of neck, initial encounter] Onset: 07-17-2023 Episodic Syncope (14 sources) Syncope; Translations: [Syncope and collapse] Onset: 05-08-2024 05-08-2024 Episodic Unclassified (1 source) Contact with and (suspected) exposure to covid-19 Z20.822 Onset: 11-23-2021 Resolved: 11-23-2021 Unclassified (1 source) Cough R05.9 Unclassified (1 source) Onset: 09-12-2024 09-12-2024 Urinary tract infections (16 sources) Acute cystitis; Translations: [Acute cystitis with hematuria] Onset: 06-21-2024 07-08-2024 Episodic Viral infection (20 sources) Disease caused by 2019-nCoV; Translations: [COVID-19] Onset: 05-26-2023 Resolved: 05-26-2023 11-23-2021 Episodic Viral infection (3 sources) COVID-19; Translations: [Disease caused by 2019-nCoV] Onset: 11-23-2021 Resolved: 11-23-2021 Results Test Name Value Interpretation Reference Range Facility Alanine aminotransferase [En zymatic activity/volume] in Serum or PlasmaOrdered By: Black Zaidi on 10-02-2024 ALT [Catalytic activity/Vol] 17 U/L Normal 7-52 [facility] Comment on above: Performed By: #### P ILLAR CMP, PILLAR CBC, PILLAR LIPID #### [facility] [address] [place] [address] [place] Albumin [Mass/volume] in Ser um or Plasma by Bromocresol green (BCG) dye binding methoOrdered By: Black Zaidi on 10-02-2024 Albumin BCG dye [Mass/Vol] 4.1 g/dL 3.5-5.7 [facility] Alkaline phosphatase [Enzyma tic activity/volume] in Serum or PlasmaOrdered By: Black Zaidi on 10-02-2024 ALP [Catalytic activity/Vol] 72 U/L Normal 34-104 [facility] Comment on above: Performed By: #### P ILLAR CMP, PILLAR CBC, PILLAR LIPID #### [facility] [address] [place] [address] [place] Aspartate aminotransferase [ Enzymatic activity/volume] in Serum or PlasmaOrdered By: Black Zaidi on 10-02-2024 AST [Catalytic activity/Vol] 16 U/L Normal 13-39 [facility] Comment on above: Performed By: #### P ILLAR CMP, PILLAR CBC, PILLAR LIPID #### [facility] [address] [place] [address] [place] Basophils [#/volume] in Bloo d by Automated countOrdered By: Black Zaidi on 10-02-2024 Basophils (Bld) [#/Vol] 0.1 10*3/uL Normal 0.0-0.2 [facility] Comment on above: Result Comment: PERF ORMED BY: [place] [address] PATHOLOGIST JEWEL WAXER BENOIT S MIKE M.D. Performed By: #### P ILLAR CMP, PILLAR CBC, PILLAR LIPID #### [facility] [address] [place] [address] [place] Basophils/100 leukocytes in Blood by Automated countOrdered By: Black Zaidi on 10-02-2024 Basophils/100 WBC (Bld) 0.9 % Normal . [facility] Comment on above: Performed By: #### P ILLAR CMP, PILLAR CBC, PILLAR LIPID #### [facility] [address] Bilirubin.total [Mass/volume ] in Serum or PlasmaOrdered By: Black Zaidi on 10-02-2024 Bilirubin [Mass/Vol] 0.4 mg/dL Normal 0.3-1.0 [facility] Comment on above: Performed By: #### P ILLAR CMP, PILLAR CBC, PILLAR LIPID #### [facility] [address] Calcium [Mass/volume] in Ser um or PlasmaOrdered By: Black Zaidi on 10-02-2024 Calcium [Mass/Vol] 8.6 mg/dL Normal 8.6-10.3 [facility] Comment on above: Performed By: #### P ILLAR CMP, PILLAR CBC, PILLAR LIPID #### [facility] [address] [place] [address] [place] Carbon dioxide, total [Moles /volume] in Serum or PlasmaOrdered By: Black Zaidi on 10-02-2024 CO2 [Moles/Vol] 25.2 mmol/L Normal 21.0-31.0 [facility] Comment on above: Performed By: #### P ILLAR CMP, PILLAR CBC, PILLAR LIPID #### [facility] [address] [place] [address] [place] Chloride [Moles/volume] in S ministerio or PlasmaOrdered By: Black Zaidi on 10-02-2024 Chloride [Moles/Vol] 106 mmol/L Normal 98-107 [facility] Comment on above: Performed By: #### P ILLAR CMP, PILLAR CBC, PILLAR LIPID #### [facility] [address] [place] [id number] [place] Cholesterol [Mass/volume] in Serum or PlasmaOrdered By: Black Zaidi on 10-02-2024 Cholesterol [Mass/Vol] 143 mg/dL Normal 140-200 [facility] Comment on above: Chol less than 200 m g/dl low riskChol 201-239 mg/dl borderline riskChol 240 mg/dl and greater high risk Result Comment: Chol less than 200 mg/dl low risk Chol 201-239 mg/dl borderline risk Chol 240 mg/dl and greater high risk Performed By: #### P ILLAR CMP, PILLAR CBC, PILLAR LIPID #### [facility] [address] [place] [id number] [place] Cholesterol in HDL [Mass/vol ume] in Serum or PlasmaOrdered By: Black Zaidi on 10-02-2024 Cholesterol in HDL [Mass/Vol] 37 mg/dL Normal 23-92 [facility] Comment on above: HDL CHOL ATP-III CLA SSIFICATION Cardiovascular RiskHDL > or equal to 60 mg/dL LOWHDL < 40 mg/dL HIGH Result Comment: HDL CHOL ATP-III CLASSIFICATION Cardiovascular Risk HDL > or equal to 60 mg/dL LOW HDL < 40 mg/dL HIGH Performed By: #### P ILLAR CMP, PILLAR CBC, PILLAR LIPID #### [facility] [address] [place] [id number] [place] Cholesterol in LDL Calc [Mas s/Vol]Ordered By: Black Zaidi on 10-02-2024 Cholesterol in LDL [Mass/Vol] 93 mg/dL 0-100 [facility] Comment on above: LDL ATP III CLASSIFI CATIONLDL less than 100 mg/dL OptimalLDL 100-129 mg/dL Near or above optimalLDL 130-159 mg/dL Borderline highLDL 160-189 mg/dL HighLDL greater than 189 mg/dL Very high Cholesterol in VLDL Calc [Ma ss/Vol]Ordered By: Black Zaidi on 10-02-2024 Cholesterol in VLDL [Mass/Vol] 13 mg/dL [facility] Creatinine [Mass/volume] in Serum or PlasmaOrdered By: Black Zaidi on 10-02-2024 Creatinine [Mass/Vol] 0.78 mg/dL Normal 0.60-1.20 [facility] Comment on above: Performed By: #### P ILLAR CMP, PILLAR CBC, PILLAR LIPID #### [facility] [address] [place] [address] Employee Comp Metabolic Pane angelica 10-02-2024 Albumin [Mass/Vol] 4.1 g/dL Normal 3.5-5.7 [facility] Comment on above: Performed By: #### P ILLAR CMP, PILLAR CBC, PILLAR LIPID #### [address] GFR/1.73 sq M.predicted MDRD (S/P/Bld) [Vol rate/Area] mL/min/{1.73_m2} Normal [facility] Comment on above: Performed By: #### P ILLAR CMP, PILLAR CBC, PILLAR LIPID #### [address] Employee Complete Blood Coun ton 10-02-2024 Mean Corpuscular HGB Conc 33.5 g/dL Normal 32.0-35.0 [facility] Comment on above: Performed By: #### P ILLAR CMP, PILLAR CBC, PILLAR LIPID #### [address] NRBC% 0.1 /100{WBC} Normal 0-0.5 [facility] Comment on above: Performed By: #### P ILLAR CMP, PILLAR CBC, PILLAR LIPID #### [address] White Blood Count 8.7 [CFU]/mL Normal 3.8-11.6 [facility] Comment on above: Performed By: #### P ILLAR CMP, PILLAR CBC, PILLAR LIPID #### [address] Employee Lipid Profileon LDL Cholesterol,Calculated 93 mg/dL Normal 0-100 [facility] Comment on above: Result Comment: LDL ATP III CLASSIFICATION LDL less than 100 mg/dL Optimal LDL 100-129 mg/dL Near or above optimal LDL 130-159 mg/dL Borderline high LDL 160-189 mg/dL High LDL greater than 189 mg/dL Very high Performed By: #### P ILLAR CMP, PILLAR CBC, PILLAR LIPID #### [address] Triglyceride w/Reflex 65 mg/dL Normal 0-149 [facility] Comment on above: Result Comment: TRIG ATP III CLASSIFICATION TRIG less than 150 mg/dL Normal TRIG 150-199 mg/dL Borderline high TRIG 200-500 mg/dL High TRIG greater than 500 mg/dL Very high Standard traceable to the Center for Disease Conrtrol and Prevention (CDC) test method. Performed By: #### P ILLAR CMP, PILLAR CBC, PILLAR LIPID #### [address] VLDL CHOLESTEROL 13 mg/dL Normal [facility] Comment on above: Performed By: #### P ILLAR CMP, PILLAR CBC, PILLAR LIPID #### [address] Eosinophils [#/volume] in Bl ood by Automated countOrdered By: Black Zaidi on 10-02-2024 Eosinophils (Bld) [#/Vol] 0.1 10*3/uL Normal 0.0-0.45 [facility] Comment on above: Performed By: #### P ILLAR CMP, PILLAR CBC, PILLAR LIPID #### [address] Eosinophils/100 leukocytes i n Blood by Automated countOrdered By: Black Zaidi on 10-02-2024 Eosinophils/100 WBC (Bld) 0.8 % Normal . [facility] Comment on above: Performed By: #### P ILLAR CMP, PILLAR CBC, PILLAR LIPID #### [address] Erythrocyte distribution wid th [Ratio] by Automated countOrdered By: Black Zaidi on 10-02-2024 Erythrocyte distribution width (RBC) [Ratio] 14.1 % Normal 11.9-15.3 [facility] Comment on above: Performed By: #### P ILLAR CMP, PILLAR CBC, PILLAR LIPID #### [facility] [address] Erythrocytes [#/volume] in B lood by Automated countOrdered By: Black Zaidi on 10-02-2024 RBC (Bld) [#/Vol] 4.14 10*6/uL Normal 3.60-5.00 [facility] Comment on above: Performed By: #### P ILLAR CMP, PILLAR CBC, PILLAR LIPID #### [facility] [address] [place] [address] [place] Glucose [Mass/volume] in Ser um or PlasmaOrdered By: Black Zaidi on 10-02-2024 Glucose [Mass/Vol] 92 mg/dL Normal 70-100 [facility] Comment on above: Performed By: #### P ILLAR CMP, PILLAR CBC, PILLAR LIPID #### [facility] [address] [place] [address] Hematocrit [Volume Fraction] of Blood by Automated countOrdered By: Black Zaidi on 10-02-2024 Hematocrit (Bld) [Volume fraction] 36.0 % Normal 34.0-46.4 [facility] Comment on above: Performed By: #### P ILLAR CMP, PILLAR CBC, PILLAR LIPID #### [facility] [address] [place] [address] Hemoglobin [Mass/volume] in BloodOrdered By: Black Zaidi on 10-02-2024 Hemoglobin (Bld) [Mass/Vol] 12.0 g/dL Normal 11.8-15.4 [facility] Comment on above: Performed By: #### P ILLAR CMP, PILLAR CBC, PILLAR LIPID #### [facility] [address] [place] [address] Leukocytes [#/volume] correc kiki for nucleated erythrocytes in Blood by Automated counOrdered By: Black Zaidi on 10-02-2024 WBC corrected for nucl RBC Auto (Bld) [#/Vol] 8.7 10*3/uL 3.8-11.6 [facility] Leukocytes [#/volume] in Blo od by Automated countOrdered By: Black Zaidi on 10-02-2024 WBC (Bld) [#/Vol] 8.7 10*3/uL Normal 3.8-11.6 [facility] Comment on above: Performed By: #### P ILLAR CMP, PILLAR CBC, PILLAR LIPID #### [facility] [address] Lymphocytes [#/volume] in Bl ood by Automated countOrdered By: Black Zaidi on 10-02-2024 Lymphocytes (Bld) [#/Vol] 2.1 10*3/uL Normal 1.00-4.8 [facility] Comment on above: Performed By: #### P ILLAR CMP, PILLAR CBC, PILLAR LIPID #### [address] Lymphocytes/100 leukocytes i n Blood by Automated countOrdered By: Black Zaidi on 10-02-2024 Lymphocytes/100 WBC (Bld) 24.0 % Normal . [facility] Comment on above: Performed By: #### P ILLAR CMP, PILLAR CBC, PILLAR LIPID #### [address] MCH [Entitic mass] by Automa kiki countOrdered By: Black Zaidi on 10-02-2024 MCH (RBC) [Entitic mass] 29.1 pg Normal 24.7-34.3 [facility] Comment on above: Performed By: #### P ILLAR CMP, PILLAR CBC, PILLAR LIPID #### [facility] [address] [place] [address] MCHC Auto (RBC) [Mass/Vol]Or dered By: Black Zaidi on 10-02-2024 MCHC (RBC) [Mass/Vol] 33.5 g/dL 32.0-35.0 [facility] MCV [Entitic volume] by Auto mated countOrdered By: Black Zaidi on 10-02-2024 MCV (RBC) [Entitic vol] 86.8 fL Normal 80-100 [facility] Comment on above: Performed By: #### P ILLAR CMP, PILLAR CBC, PILLAR LIPID #### [facility] [address] [place] [address] [place] Monocytes [#/volume] in Bloo d by Automated countOrdered By: Black Zaidi on 10-02-2024 Monocytes (Bld) [#/Vol] 0.4 10*3/uL Normal 0.0-0.8 [facility] Comment on above: Performed By: #### P ILLAR CMP, PILLAR CBC, PILLAR LIPID #### [facility] [address] [place] [address] [place] Monocytes/100 leukocytes in Blood by Automated countOrdered By: Black Zaidi on 10-02-2024 Monocytes/100 WBC (Bld) 4.2 % Normal . [facility] Comment on above: Performed By: #### P ILLAR CMP, PILLAR CBC, PILLAR LIPID #### [facility] [address] [place] [address] Neutrophils [#/volume] in Bl ood by Automated countOrdered By: Black Zaidi on 10-02-2024 Neutrophils (Bld) [#/Vol] 6.1 10*3/uL Normal 1.8-7.7 [facility] Comment on above: Performed By: #### P ILLAR CMP, PILLAR CBC, PILLAR LIPID #### [facility] [address] [place] [address] [place] Neutrophils/100 leukocytes i n Blood by Automated countOrdered By: Black Zaidi on 10-02-2024 Neutrophils/100 WBC (Bld) 70.1 % Normal . [facility] Comment on above: Performed By: #### P ILLAR CMP, PILLAR CBC, PILLAR LIPID #### [facility] [address] [place] [address] No Panel InformationOrdered By: Black Zaidi on 10-02-2024 Estimated GFR (CKD-EPI) > 60.0 mL/Min [facility] Creatinine Clearance (Chem N/A [facility] Nucleated erythrocytes [Pres ence] in Blood by Automated countOrdered By: Black Zaidi on 10-02-2024 Nucleated RBC Auto Ql (Bld) 0.1 /100{WBC} 0-0.5 [facility] Platelet mean volume [Entiti c volume] in Blood by Automated countOrdered By: Black Zaidi on 10-02-2024 Platelet mean volume (Bld) [Entitic vol] 8.6 fL Normal 6.3-10.7 [facility] Comment on above: Performed By: #### P ILLAR CMP, PILLAR CBC, PILLAR LIPID #### [facility] [address] Platelets [#/volume] in Bloo d by Automated countOrdered By: Black Zaidi on 10-02-2024 Platelets (Bld) [#/Vol] 308 10*3/uL Normal 150-450 [facility] Comment on above: Performed By: #### P ILLAR CMP, PILLAR CBC, PILLAR LIPID #### [address] Potassium [Moles/volume] in Serum or PlasmaOrdered By: Black Zaidi on 10-02-2024 Potassium [Moles/Vol] 4.3 mmol/L Normal 3.5-5.1 [facility] Comment on above: Performed By: #### P ILLAR CMP, PILLAR CBC, PILLAR LIPID #### [facility] [address] [place] [address] Protein [Mass/volume] in Ser um or PlasmaOrdered By: Black Zaidi on 10-02-2024 Protein [Mass/Vol] 6.5 g/dL Normal 6.4-8.9 [facility] Comment on above: Performed By: #### P ILLAR CMP, PILLAR CBC, PILLAR LIPID #### [facility] [address] [place] [address] Serum globulin measurement b y calculation (mass/volume)Ordered By: Black Zaidi on 10-02-2024 Globulin (S) [Mass/Vol] 2.4 g/dL Normal [facility] Comment on above: Performed By: #### P ILLAR CMP, PILLAR CBC, PILLAR LIPID #### [facility] [address] [place] [address] Serum or plasma albumin/glob ulin mass ratioOrdered By: Black Zaidi on 10-02-2024 Albumin/Globulin [Mass ratio] 1.7 {ratio} Normal [facility] Comment on above: Performed By: #### P ILLAR CMP, PILLAR CBC, PILLAR LIPID #### [facility] [address] Serum or plasma anion gap de terminationOrdered By: Black Zaidi on 10-02-2024 Anion gap [Moles/Vol] 10.1 mmol/L Normal 6.0-15.0 [facility] Comment on above: Performed By: #### P ILLAR CMP, PILLAR CBC, PILLAR LIPID #### [facility] [address] [place] [address] Serum or plasma total choles terol/high density lipoprotein (HDL) cholesterol mass ratOrdered By: Black Zaidi on 10-02-2024 Cholesterol.total/Ioana sterol in HDL [Mass ratio] 3.9 {ratio} Normal <5.0 [facility] Comment on above: Result Comment: PERF ORMED BY: [place] [address] PATHOLOGIST JEWEL WAXER BENOIT MCKEON M.D. Performed By: #### P ILLAR CMP, PILLAR CBC, PILLAR LIPID #### [address] Sodium [Moles/volume] in Ser um or PlasmaOrdered By: Black Zaidi on 10-02-2024 Sodium [Moles/Vol] 137 mmol/L Normal 136-145 [facility] Comment on above: Performed By: #### P ILLAR CMP, PILLAR CBC, PILLAR LIPID #### [facility] [address] [place] [address] Triglyceride [Mass/volume] i n Serum or PlasmaOrdered By: Black Zaidi on 10-02-2024 Triglyceride [Mass/Vol] 65 mg/dL 0-149 [facility] Comment on above: TRIG ATP III CLASSIF ICATIONTRIG less than 150 mg/dL NormalTRIG 150-199 mg/dL Borderline highTRIG 200-500 mg/dL High TRIG greater than 500 mg/dL Very highStandard traceable to the Center for Disease Conrtrol and Prevention (CDC) test method. Urea nitrogen [Mass/volume] in Serum or PlasmaOrdered By: Black Zaidi on 10-02-2024 Urea nitrogen [Mass/Vol] 9 mg/dL Normal 7-25 [facility] Comment on above: Performed By: #### P ILLAR CMP, PILLAR CBC, PILLAR LIPID #### [facility] [address] [place] GASTRIC EMPTYING SOLIDon 09-27-2024 * * *Final Report* * * DATE OF EXAM: Sep 24 2024 12:45PM [facility] 0017 - [place] GASTRIC EMPTYING SOLID / [...] gastric emptying rate for the solid meal. Activities Director Scouting: BRIT Transcribe Date/Time: Sep 27 2024 11:50A Dictated by : PIETRO JONES MD This examination was interpreted and the report reviewed and electronically signed by: PIETRO JONES MD on Sep 27 2024 11:51AM EST [id number] ^ACN [facility], Radiologist, - 09/27/2024 * * *Final Report* * * DATE OF EXAM: Sep 24 2024 12:45PM [facility] 0017 - [place] GASTRIC EMPTYING SOLID / [...] gastric emptying rate for the solid meal. Activities Director Scouting: BRIT Transcribe Date/Time: Sep 27 2024 11:50A Dictated by : PIETRO JONES MD This examination was interpreted and the report reviewed and electronically signed by: PIETRO JONES MD on Sep 27 2024 11:51AM EST [id number] ^ACN [facility] [place] GASTRIC EMPTYING SOLIDOrd ered By: Radiologist Radiology on 09-27-2024 [facility] Work Phone: [place] GASTRIC EMPTYING SOLIDon 09-24-2024 [place] GASTRIC EMPTYING SOLID * * *Final Report* * * DATE OF EXAM: Sep 24 2024 12:45PM [facility] 0017 - [place] GASTRIC EMPTYING SOLID [...] gastric emptying rate for the solid meal. Activities Director Scouting: PSCB Transcribe Date/Time: Sep 27 2024 11:50A Dictated by : PIETRO JONES MD This examination was interpreted and the report reviewed and electronically signed by: PIETRO JONES MD on Sep 27 2024 11:51AM EST [id number] Normal [facility] Radiology Study observation (narrative) [facility] Urine Cultureon 09-16-2024 Bacteria identified Cx Nom (U) <9,000 colonies/ml mixed bacterial skin contaminants 2 Days PERFORMED BY: [facility] [address] [place] [address] PATHOLOGIST JEWEL WAXER BENOIT Romero [facility] Comment on above: Performed By: #### C UU #### [facility] [address] Urine cultureOrdered By: Darryn Ash on 09-16-2024 Bacteria identified Cx Nom (U) 2 Days [facility] ANES POSTPROC EVALon 025 ANES POSTPROC EVAL HNO ID: [id number] Author: CAMI RIVERA APRN.CRNA Service: Anesthesiology Author Type: Nurse Pneumatic Hoist Operator Type: Anesthesia Postprocedure Evaluation Filed: 08/30/2024 12:20 Note Text: POST ANESTHESIA EVALUATION NOTE : 1995 Procedure Summary Date: 08/29/24 Room / Location: Ambulatory Surgery Anesthesia Start: 1111 Anesthesia Stop: 1139 Procedures: EGD DIAGNOSTIC COLONOSCOPY DIAGNOSTIC Diagnosis: Nausea and vomiting, unspecified vomiting type Abdominal bloating Epigastric pain Scheduled Providers: Bobo Parson MD Responsible Provider: Cami Rivera APRN.CRNA Anesthesia Type: MAC ASA Status: 3 [...] care. Anesthesia Observations No Documentation SIGNATURE: Cami Rivera APRN.CRNA PATIENT NAME: Adina Martinez DATE: August 30, 2024 TIME: 12:18 PM CSN: [id number] Normal [facility] ANES PRE-OPon 08-29-2024 ANES PRE-OP HNO ID: [id number] Author: CAMI RIVERA APRN.CRNA Service: Anesthesiology Author Type: Nurse Pneumatic Hoist Operator Type: Anesthesia Preprocedure Evaluation Filed: 08/29/2024 11:03 Note Text: ANESTHESIOLOGY DAY OF SURGERY NOTE : 1995 Procedure Information Date/Time: 08/29/24 1115 Scheduled providers: Bobo Parson MD Procedures: EGD DIAGNOSTIC COLONOSCOPY DIAGNOSTIC Location: [...] no. Thick neck: no Amador present: no Microretrognathia/Rodri ronagthia/Recessed Chin: No DENTAL Dental findings: teeth intact. Additional exam findings: no II - ANESTHESIA PLAN ASA Score: 3 Anesthetic Plan: MAC NPO Status: adequate Beta Ruslan Monitoring Plan Monitoring plan: standard ASA. Post Procedure Analgesic Plan Postoperative analgesic plan: per surgical service. Informed Consent Anesthetic risks, benefits, alternatives, personnel and consent discussed: yes. Patient / Responsible Democrat agrees to proceed: yes Patient / Surrogate [...] within 48 hours of Surgery/Procedure. SIGNATURE: Cami Rivera APRN.CRNA PATIENT NAME: Adina Martinez DATE: August 29, 2024 TIME: 11:00 AM CSN: [id number] Normal [facility] COLONOSCOPYon 08-29-2024 [facility] Gastroenterology Gastrointestinal Endoscopy Patient Name: Adina Martinez Procedure Date: 08/29/2024 11:23 AM Date of : 1995 Admit Type: Outpatient Age: 29 Room: [facility] Gender: Female Note Status: Finalized Attending MD: Bobo Parson MD, [id number] Procedure: Colonoscopy Indications: Generalized abdominal pain Providers: Bobo Parson MD Patient Profile: This is a 29 year old female. Refer to note in patient chart for documentation of history and physical. Last Colonoscopy: none. The patient's first colonoscopy is today. Referring Physician: Kimberly Nava CNP (Referring MD) Medicines: Monitored Anesthesia [...] by the physician, the nurse and the rn clinical documentation specialist in the procedure room at 11:11. Mental [...] Patient has a contact number available for (more content not included)... [facility], Radiologist, - 08/29/2024 [facility] Gastroenterology Gastrointestinal Endoscopy Patient Name: Adina Martinez Procedure Date: 08/29/2024 11:23 AM Date of : 1995 Admit Type: Outpatient Age: 29 Room: [place] [address] Gender: Female Note Status: Finalized Attending MD: Bobo Parson MD, [id number] Procedure: Colonoscopy Indications: Generalized abdominal pain Providers: Bobo Parson MD Patient Profile: This is a 29 year old female. Refer to note in patient chart for documentation of history and physical. Last Colonoscopy: none. The patient's first colonoscopy is today. Referring Physician: Kimberly Nava CNP (Referring MD) Medicines: Monitored Anesthesia [...] by the physician, the nurse and the rn clinical documentation specialist in the procedure room at 11:11. Mental [...] home (ambulatory). Procedure Code(s): --- Professional --- 57441, Colonoscopy, flexible; diagnostic, including collection of specimen(s) by brushing or washing, when performed (separate procedure) Diagnosis Code(s): --- Professional --- R10.84, Generalized abdominal pain CPT copyright 2020 [employer]. All rights reserved. The codes documented in this report are preliminary and upon warm in worker review may be revised to meet current compliance requirements. Scope In: 11:25:29 AM Scope Out: 11:38:57 AM MD Bobo Sparks MD 08/29/2024 11:41:28 AM This report has been signed electronically by Elgin Blades , MD Number (more content not included)... [facility] COLONOSCOPYOrdered By: [employer] [facility] Radiology on 08-29-2024 [facility] Work Phone: Colonoscopyon 08-29-2024 Colonoscopy [facility] Gastroenterology Gastrointestinal Endoscopy Patient Name: Adina Martinez Procedure Date: 08/29/2024 11:23 AM Date of : 1995 Admit Type: Outpatient Age: 29 Room: [facility] Gender: Female Note Status: Vest Tailor Override Attending MD: Bobo Parson MD, [id number] Procedure: Colonoscopy Indications: Generalized abdominal pain Providers: Bobo Parson MD Patient Profile: This is a 29 year old female. Refer to note in patient chart for documentation of history and physical. Last Colonoscopy: none. The patient's first colonoscopy is today. Referring Physician: Kimberly Nava CNP (Referring MD), Linnea Hackett (Referring MD) [...] by the physician, the nurse and the rn clinical documentation specialist in the procedure room at 11:11. Mental [...] home (ambulatory). Procedure Code(s): --- Professional --- 16083, Colonoscopy, flexible; diagnostic, including collection of specimen(s) by brushing or washing, when performed (separate procedure) Diagnosis Code(s): --- Professional --- R10.84, Generalized abdominal pain CPT copyright 2020 [employer]. All rights reserved. The codes documented in this report are preliminary and upon warm in worker review may be revised to meet current compliance requirements. Scope In: 11:25:29 AM Scope Out: 11:38:57 AM MD Bobo Sparks MD 08/29/2024 11:41:28 AM This report has been signed electronically by Bobo Parson MD Number of Addenda: 0 Note Initiated On: 08/29/2024 11:23 AM (more content not included)... Normal [facility] Colonoscopy studyon 08-30-19 [facility] Gastroenterology Gastrointestinal Endoscopy Patient Name: Adina Martinez Procedure Date: 08/29/2024 11:23 AM Date of : 1995 Admit Type: Outpatient Age: 29 Room: [facility] Gender: Female Note Status: Finalized Attending MD: Bobo Parson MD, [id number] Procedure: Colonoscopy Indications: Generalized abdominal pain Providers: Bobo Parson MD Patient Profile: This is a 29 year old female. Refer to note in patient chart for documentation of history and physical. Last Colonoscopy: none. The patient's first colonoscopy is today. Referring Physician: Kimberly Nava CNP (Referring MD) Medicines: Monitored Anesthesia [...] by the physician, the nurse and the rn clinical documentation specialist in the procedure room at 11:11. Mental [...] Patient has a contact number available for (more content not included)... [facility] EGD Study observation Irasema villanueva 08-29-2024 [facility] Gastroenterology Gastrointestinal Endoscopy Patient Name: Adina Martinez Procedure Date: 08/29/2024 11:02 AM Date of : 1995 Admit Type: Outpatient Age: 29 Room: [place] [address] Gender: Female Note Status: Finalized Attending MD: Bobo Parson MD, [id number] Procedure: Upper GI endoscopy Indications: Nausea with vomiting Providers: Bobo Parson MD Patient Profile: This is a 29 year old female. Refer to note in patient chart for documentation of history and physical. Patient has symptoms of acute dyspepsia and acute vomiting. Referring Physician: Kimberly Nava CNP (Referring MD) Medicines: Monitored Anesthesia [...] by the physician, the nurse and the rn clinical documentation specialist in the procedure room at 11:11. Mental [...] present medications. - Observe patient's clinical course. (more content not included)... [facility] HISTORY PHYSICALon HISTORY PHYSICAL HNO ID: [id number] Author: BOBO PARSON MD Service: Gastroenterology Author Type: Physician Type: H&P Filed: 08/29/2024 11:05 Note Text: HISTORY AND PHYSICAL Adina Martinez, 29 year old female Current history and physical on file: Yes Is a new History and Physical required for today's visit? Yes Indication for procedure: Abdominal pain and Nausea AND Vomiting PROCEDURE(S) SCHEDULED FOR: Colonoscopy with or without biopsies and with or without removal of polyps or lesions, dilation (any means), treatment of bleeding (any means), based on clinical findings. and EGD (Esophagogastroduoden oscopy) with or without biopsies, removal of polyps [...] Sedation Plan: MAC Additional Comments: None Bobo Parson MD Normal [facility] NURSING PROGon 08-29-2024 NURSING PROG HNO ID: [id number] Author: TASIA EL, RN Service: Nursing Author Type: Registered Nurse [...] Tasia El RN In Department: AMBULATORY SURGERY Normal [facility] No Panel Informationon 08-29 Radiology Study observation (narrative) [facility] Radiology Study observation (narrative) [facility] Pathology biopsy report Brodie (Tiss)on 08-29-2024 AP DISCLAIMER Normal [facility] Comment on above: Order Comment: Speci men Type: TISSUE SPECIMEN Ordering Facility: [facility] Address: [address] [place] [address] Result Comment: Leslie hancock Developed Test (LDT) Disclaimer: Performance characteristics of immunohistochemical, immunofluorescent, and chromogenic in-situ hybridization tests have been determined by the performing laboratory within [facility]'s [facility] Pathology and Laboratory Medicine Department ([facility], [facility], [facility], [facility], [facility], [facility], or [facility]) in a manner consistent with CLIA requirements. One or more of these tests may not have been cleared or approved by the FDA. [facility] is regulated under CLIA as qualified to perform high-complexity testing. These tests are used for clinical purposes. These should not be regarded as investigational or for research. Positive and negative controls stain appropriately. Performed By: #### 6 6121-5 #### [facility] CLIA [id number] [address] [place] [address] [place] CASE REPORT Normal [facility] Comment on above: Order Comment: Specjean rodríguez Type: TISSUE SPECIMEN Ordering Facility: [facility] Address: [address] [place] [address] Result Comment: Surg ica Pathology Report Case: [id number] Authorizing Provider: Bobo Parson MD Collected: 08/29/2024 11:16 AM Ordering Location: Ambulatory Surgery Received: 08/29/2024 08:14 PM Pathologist: Ed Pruett MD, PhD Specimens: A) - Small Bowel, Duodenum, Biopsy, r/o celiac B) - Stomach, Biopsy, r/o h. pylori C) - Esophagus, Biopsy, r/o eoe and barretts Performed By: #### 6 6121-5 #### [facility] CLIA [id number] [address] [place] [address] OF [facility] FINAL DIAGNOSIS Normal [facility] Comment on above: Order Comment: Jamar rodríguez Type: TISSUE SPECIMEN Ordering Facility: [facility] Address: [address] [place] [address] Result Comment: A. D uodenum, biopsy: - Duodenal mucosa with no significant diagnostic abnormality. B. Stomach, biopsy: - Reactive gastric antral and oxyntic mucosa with focal minimally active inflammation. - No evidence of H. pylori microorganisms on H&E sections. C. Esophagus, biopsy: - Reactive squamous mucosa and inflamed gastric cardia-type mucosa, negative for intestinal metaplasia. at 1549 EDT Performed By: #### 6 6121-5 #### [facility] CLIA [id number] [address] [place] [address] [place] FINAL PERFORMING LAB Normal [facility] Comment on above: Order Comment: Speci men Type: TISSUE SPECIMEN Ordering Facility: [facility] Address: [address] [place] [address] Result Comment: Diag nostic interpretation performed at: [facility], [address] [place] [address] CLIA# [id number] Radio Operator Ground: Jose Heaton MD Performed By: #### 6 6121-5 #### [facility] CLIA [id number] [address] [place] [address] OF [facility] GROSS DESCRIPTION Normal [facility] Comment on above: Order Comment: Speci men Type: TISSUE SPECIMEN Ordering Facility: [facility] Address: [address] [place] [address] Result Comment: A. S mall Bowel, Duodenum, Biopsy Received in formalin are [...] 2024 12:14 AM Gross examination performed at [facility], [address] [place] [address] Performed By: #### 6 6121-5 #### [facility] CLIA [id number] [address] [place] [address] [place] UPPER GI ENDOSCOPYon 08-29-2 025 [facility] Gastroenterology Gastrointestinal Endoscopy Patient Name: Adina Martinez Procedure Date: 08/29/2024 11:02 AM Date of : 1995 Admit Type: Outpatient Age: 29 Room: [place] [address] Gender: Female Note Status: Finalized Attending MD: Bobo Parson MD, [id number] Procedure: Upper GI endoscopy Indications: Nausea with vomiting Providers: Bobo Parson MD Patient Profile: This is a 29 year old female. Refer to note in patient chart for documentation of history and physical. Patient has symptoms of acute dyspepsia and acute vomiting. Referring Physician: Kimberly Nava CNP (Referring MD) Medicines: Monitored Anesthesia [...] by the physician, the nurse and the rn clinical documentation specialist in the procedure room at 11:11. Mental [...] present medications. - Observe patient's clinical course. (more content not included)... [facility], Radiologist, - 08/29/2024 [facility] Gastroenterology Gastrointestinal Endoscopy Patient Name: Adina Martinez Procedure Date: 08/29/2024 11:02 AM Date of : 1995 Admit Type: Outpatient Age: 29 Room: [place] [address] Gender: Female Note Status: Finalized Attending MD: Bobo Parson MD, [id number] Procedure: Upper GI endoscopy Indications: Nausea with vomiting Providers: Bobo Parson MD Patient Profile: This is a 29 year old female. Refer to note in patient chart for documentation of history and physical. Patient has symptoms of acute dyspepsia and acute vomiting. Referring Physician: Kimberly Nava CNP (Referring MD) Medicines: Monitored Anesthesia [...] by the physician, the nurse and the rn clinical documentation specialist in the procedure room at 11:11. Mental [...] colonoscopy today. Procedure Code(s): --- Professional --- 64098, Esophagogastroduodeno scopy, flexible, transoral; with biopsy, single or multiple Diagnosis Code(s): --- Professional --- K21.00, Gastro-esophageal reflux disease with esophagitis, without bleeding R11.2, Nausea with vomiting, unspecified CPT copyright 2020 [employer]. All rights reserved. The codes documented in this report are preliminary and upon warm in worker review may be revised to meet current compliance requirements. Scope In: 11:15:53 AM Scope Out: 11:20:18 AM MD Bobo Sparks MD 08/29/2024 11:23:44 AM This report has been signed electronically by Bobo Parson MD Number of Addenda: 0 Note Initiated On: 08/29/2024 11:02 AM Estimated Blood Loss: Estimated blood loss: none. [facility] [place] UPPER GI ENDOSCOPYOrdered By : Radiologist Radiology on 08-29-2024 [facility] [place] Work Phone: Upper GI endoscopyon 025 Upper GI endoscopy [facility] Gastroenterology Gastrointestinal Endoscopy Patient Name: Adina Martinez Procedure Date: 08/29/2024 11:02 AM Date of : 1995 Admit Type: Outpatient Age: 29 Room: [place] [address] Gender: Female Note Status: Vest Tailor Override Attending MD: Bobo Parson MD, [id number] Procedure: Upper GI endoscopy Indications: Nausea with vomiting Providers: Bobo Parson MD Patient Profile: This is a 29 year old female. Refer to note in patient chart for documentation of history and physical. Patient has symptoms of acute dyspepsia and acute vomiting. Referring Physician: Kimberly Nava CNP (Referring MD), Linnea Hackett (Referring MD) [...] by the physician, the nurse and the rn clinical documentation specialist in the procedure room at 11:11. Mental [...] colonoscopy today. Procedure Code(s): --- Professional --- 56958, Esophagogastroduodeno scopy, flexible, transoral; with biopsy, single or multiple Diagnosis Code(s): --- Professional --- K21.00, Gastro-esophageal reflux disease with esophagitis, without bleeding R11.2, Nausea with vomiting, unspecified CPT copyright 2020 [employer]. All rights reserved. The codes documented in this report are preliminary and upon warm in worker review may be revised to meet current compliance requirements. Scope In: 11:15:53 AM Scope Out: 11:20:18 AM MD Bobo Sparks MD 08/29/2024 11:23:44 AM This report has been signed electronically by Bobo Parson MD Number of Addenda: 0 Note Initiated On: 08/29/2024 11:02 AM Estimated Blood Loss: Estimated blood loss: none. Normal [facility] tilt table teston 025 [place] tilt table test [facility] [place] [address] [place] [address] Cardiology Report Signed Patient: Adina Martienz MR#: [id number] : 1995 Acct:[id number] Age/Sex: 29 / F ADM Date: 08/28/24 Loc: Room: Type: [facility] Attending Dr: Quique Vazquez MD Copies to: Nidia Hughes MD Ordering Provider: Nidia Hughes MD Date of Service: 08/28/24 CA/[place] tilt table test: Syncope, pre-syncope REFERRING PHYSICIAN: Dr. Vazquez. 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 Transcribed By: MARY JANE 08/28/24 1738 Dictated By: Nidia Hughes MD 08/28/24 1010 Signed By: 08/29/24 1718 Normal [facility] [place] abdomen pelvis wo conon 0 08-14-2024 CT abdomen pelvis wo con [facility] Main [address] [address] [address] Scan Report Signed Patient: Adina Martinez MR#: [id number] : 1995 Acct:[id number] Age/Sex: 29 / F ADM Date: 08/14/24 Loc: CT Room: Type: [facility] CLI Attending Dr: Linnea Hackett PA-C, Copies to: [...] hydronephrosis. Prior cholecystectomy.[ GI: Small hiatal hernia. Koml-ad-wvkushuo retained stool within the colon. Mild colonic diverticulosis. Unremarkable appendix.[ Pelvis:[Bladder is collapsed. Uterus unremarkable. No adnexal mass.] Peritoneum/Retroperit oneum:No free air or free fluid. No adenopathy.[ Abd wall/Bones:Cutaneous markers right umbilical region. Likely areas of scarring noted right periumbilical region appearing decrease prior examination[no evidence of periumbilical mass identified. No suspicious osseous lesion. CT/CT abdomen pelvis wo con IMPRESSION: No soft tissue mass at site of clinical concern. Impression dictated by: Meet Miller M.D. 08/14/2024 11:03 AM Dictation Location: [place] [address] Transcribed By: CHARLENE 08/14/24 1103 Dictated By: Meet Miller MD 08/14/24 1031 Signed By: 08/14/24 1103 Normal [facility] Hector 07-30-2024 CNOV Office Visit ([facility] ) ADINA MARTINEZ ([id number]) 1995 F Date Time Provider Department 07/30/24 8:[address] [facility] During your visit today, we recorded the following information about you: Pulse Blood pressure Weight 85/minute 120/81 124.6 kg Kimberly Nava APRN.CNP 07/30/2024 9:42 AM Signed Consultation requested by Dr. Ruddy Slater for an opinion regarding nausea/vomiting and abdominal pain. My final recommendations will be communicated back to the requesting physician by way of shared medical record or fax. REASON FOR VISIT: Abdominal Pain (Patient stated x2 years) HPI: Adina Martinez is a 29 year old female who [...] focal motor deficits Psych: Congruent mood and af (more content not included)... Normal [facility] HISTORY PHYSICALon HISTORY PHYSICAL HNO ID: [id number] Author: KIMBERLY NAVA APRN.KATHE Service: ? Author Type: Nurse Practitioner Type: H&P Filed: 07/30/2024 09:42 Note Text: Consultation requested by Dr. Ruddy Slater for an opinion regarding nausea/vomiting and abdominal pain. My final recommendations will be communicated back to the requesting physician by way of shared medical record or fax. REASON FOR VISIT: Abdominal Pain (Patient stated x2 years) HPI: Adina Martinez is a 29 year old female who [...] affect, appropriate insight and judgement ASSESSMENT/PLAN: Ms. 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 Normal [facility] Transthoracic echo (TTE) com pleteon 07-11-[address], [address] [address] TRANSTHORACIC ECHOCARDIOGRAM REPORT Patient Name: ADINA MARTINEZ Reading Physician: [id number] Quique Vazquez MD, [facility] Study Date: 07/10/2024 Ordering Provider: [id number] QUIQUE VAZQUEZ MRN/PID: [id number] Fellow: Nurse: Date of /Age: 11 1995 / 29 years Career Orientation Teacher: Marli Castro RDCS Giselle Gender Assigned at F Additional Staff: : Height: 172.72 cm Admit Date: Weight: 129.73 kg Admission Status: BSA / BMI: 2.38 m2 / 43.49 Department Location: [facility] kg/m2 [facility] Blood Pressure: 114 /82 mmHg Study Type: TRANSTHORACIC ECHO (TTE) COMPLETE Diagnosis/ICD: Syncope-R55 Indication: Tachycardia, Morbid Obesity, Hypothyroid CPT Codes: Echo Complete w Full Doppler-61593 Study Detail: The following Echo studies were [...] 23.67 cm (18-25cm) LVOT VTI: 20.84 cm LV (more content not included)... Radiology, Radiologist, MD - 07/11/[address], [address], [place] [address] TRANSTHORACIC ECHOCARDIOGRAM REPORT Patient Name: ADINA WATERSRASHID Pineda Physician: [id number] Quique Vazquez MD, [facility] Study Date: 07/10/2024 Ordering Provider: [id number] QUIQUE VAZQUEZ MRN/PID: [id number] Fellow: Nurse: Date of /Age: 11 1995 / 29 years Career Orientation Teacher: Marli Castro RDCS, RVT Gender Assigned at F Additional Staff: : Height: 172.72 cm Admit Date: Weight: 129.73 kg Admission Status: BSA / BMI: 2.38 m2 / 43.49 Department Location: [facility] kg/m2 [facility] [place] Blood Pressure: 114 /82 mmHg Study Type: TRANSTHORACIC ECHO (TTE) COMPLETE Diagnosis/ICD: Syncope-R55 Indication: Tachycardia, Morbid Obesity, Hypothyroid CPT Codes: Echo Complete w Full Doppler-07690 Study Detail: The following Echo studies were [...] (0.6-0.9m/s) AORTA: Asc Ao Diam 2.86 cm [id number] Quique Vazquez MD, [facility] Electronically signed on 07/11/2024 at 7:44:30 AM Final [facility] Transthoracic echo (TTE) com pleteOrdered By: Radiologist Radiology on 07-11-2024 [facility] Work Phone: TRANSTHORACIC ECHO (TTE) COM PLETEon 07-10-2024 TRANSTHORACIC ECHO (TTE) COMPLETE [address], [address] [place] [address] TRANSTHORACIC ECHOCARDIOGRAM REPORT Patient Name: ADINA Pineda Physician: [id number] Quique Vazquez MD, [facility] Study Date: 07/10/2024 Ordering Provider: [id number] QUIQUE VAZQUEZ MRN/PID: [id number] Fellow: Nurse: Date of /Age: 11 1995 / 29 years Career Orientation Teacher: Marli Castro RDCS RVT Gender Assigned at F Additional Staff: : Height: 172.72 cm Admit Date: Weight: 129.73 kg Admission Status: BSA / BMI: 2.38 m2 / 43.49 Department Location: [facility] [address] Blood Pressure: 114 /82 mmHg Study Type: TRANSTHORACIC ECHO (TTE) COMPLETE Diagnosis/ICD: Syncope-R55 Indication: Tachycardia, Morbid Obesity, Hypothyroid CPT Codes: Echo Complete w Full Doppler-83300 Study Detail: The following Echo studies were [...] (0.6-0.9m/s) AORTA: Asc Ao Diam 2.86 cm [id number] Quique Vazquez MD, FACC Electronically signed on 07/11/2024 at 7:44:30 AM Final Normal [facility] Transthoracic echo (TTE) com pleteon 07-10-2024 Radiology Study observation (narrative) [facility] BACTERIA UR CULTon 06-22 [facility] BACTERIA UR CULT ORGANISM ID: 1 [facility] BACTERIA UR CULT >=100,000 CFU/ml Normal urogenital antwan [facility] Original Ordering Provider: CLIFFORD PALMER [facility] Bacteria Ur Culton Bacteria identified Cx Nom (U) ORGANISM ID: 1 >=100,000 CFU/ml Normal urogenital antwan Normal [facility] Comment on above: Performed By: #### 2 4356-8, 630-4 #### [facility] CLIA [id number] [address] [place] [address] [place] CBC W Auto Differential pane l (Bld)on 06-21-2024 Basophils (Bld) [#/Vol] 10*3/uL Normal <0.11 [facility] Comment on above: Order Comment: Speci men Type: TISSUE SPECIMEN Ordering Facility: [facility] Address: [address] [place] [address] Performed By: #### 6 6121-5 #### [facility] [place] [id number] [address] [place] [address] [place] Basophils/100 WBC (Bld) 0.3 % Normal [facility] Comment on above: Order Comment: Speci men Type: TISSUE SPECIMEN Ordering Facility: [facility] Address: [address] [place] [address] Performed By: #### 6 6121-5 #### [facility] CLIA [id number] [address] [place] [address] [place] Differential cell count method Nom (Bld) Auto Normal [facility] Comment on above: Order Comment: Speci men Type: TISSUE SPECIMEN Ordering Facility: [facility] Address: [address] [place] [address] Performed By: #### 6 6121-5 #### [facility] CLIA [id number] [address] [place] [address] [place] Eosinophils (Bld) [#/Vol] 0.05 10*3/uL Normal <0.46 [facility] Comment on above: Order Comment: Speci men Type: TISSUE SPECIMEN Ordering Facility: [facility] Address: [address] [place] [address] Performed By: #### 6 6121-5 #### [facility] CLIA [id number] [address] [place] [address] [place] Eosinophils/100 WBC (Bld) 0.6 % Normal [facility] Comment on above: Order Comment: Speci men Type: TISSUE SPECIMEN Ordering Facility: [facility] Address: [address] [place] [address] Performed By: #### 6 6121-5 #### [facility] CLIA [id number] [address] [place] [address] [place] Erythrocyte distribution width (RBC) [Ratio] 13.4 % Normal 11.5-15.0 [facility] Comment on above: Order Comment: Speci men Type: TISSUE SPECIMEN Ordering Facility: [facility] Address: [address] [place] [address] Performed By: #### 6 6121-5 #### [facility] CLIA [id number] [address] [place] [address] [place] Hematocrit (Bld) [Volume fraction] 38.2 % Normal 36.0-46.0 [facility] Comment on above: Order Comment: Speci men Type: TISSUE SPECIMEN Ordering Facility: [facility] Address: [address] [place] [address] Performed By: #### 6 6121-5 #### [facility] CLIA [id number] [address] [place] [address] [place] Hemoglobin (Bld) [Mass/Vol] 12.4 g/dL Normal 11.5-15.5 [facility] Comment on above: Order Comment: Speci men Type: TISSUE SPECIMEN Ordering Facility: [facility] Address: [address] [place] [address] Performed By: #### 6 6121-5 #### [facility] CLIA [id number] [address] [place] [address] [place] Immature granulocytes (Bld) [#/Vol] 0.08 10*3/uL Normal <0.10 [facility] Comment on above: Order Comment: Speci men Type: TISSUE SPECIMEN Ordering Facility: [facility] Address: [address] [place] [address] Performed By: #### 6 6121-5 #### [facility] CLIA [id number] [address] [place] [address] [place] Immature granulocytes/100 WBC (Bld) 1.0 % Normal [facility] Comment on above: Order Comment: Speci men Type: TISSUE SPECIMEN Ordering Facility: [facility] Address: [address] [place] [address] Performed By: #### 6 6121-5 #### [facility] CLIA [id number] [address] [place] [address] [place] Lymphocytes (Bld) [#/Vol] 2.11 10*3/uL Normal 1.00-4.00 [facility] Comment on above: Order Comment: Speci men Type: TISSUE SPECIMEN Ordering Facility: [facility] Address: [address] [place] [address] Performed By: #### 6 6121-5 #### [facility] CLIA [id number] [address] [place] [address] [place] Lymphocytes/100 WBC (Bld) 26.8 % Normal [facility] Comment on above: Order Comment: Speci men Type: TISSUE SPECIMEN Ordering Facility: [facility] Address: [address] [place] [address] Performed By: #### 6 6121-5 #### [facility] CLIA [id number] [address] [place] [address] [place] MCH (RBC) [Entitic mass] 28.1 pg Normal 26.0-34.0 [facility] Comment on above: Order Comment: Speci men Type: TISSUE SPECIMEN Ordering Facility: [facility] Address: [address] [place] [address] Performed By: #### 6 6121-5 #### [facility] CLIA [id number] [address] [place] [address] [place] MCHC (RBC) [Mass/Vol] 32.5 g/dL Normal 30.5-36.0 Rafa [facility] Comment on above: Order Comment: Speci men Type: TISSUE SPECIMEN Ordering Facility: [facility] Address: [address] [place] [address] Performed By: #### 6 6121-5 #### [facility] CLIA [id number] [address] [place] [address] [place] MCV (RBC) [Entitic vol] 86.4 fL Normal 80.0-100.0 C [facility] Comment on above: Order Comment: Speci men Type: TISSUE SPECIMEN Ordering Facility: [facility] Address: [address] [place] [address] Performed By: #### 6 6121-5 #### [facility] CLIA [id number] [address] [id number] [address] [place] Monocytes (Bld) [#/Vol] 0.42 10*3/uL Normal <0.87 [facility] Comment on above: Order Comment: Speci men Type: TISSUE SPECIMEN Ordering Facility: [facility] Address: [address] [place] [address] Performed By: #### 6 6121-5 #### [facility] CLIA [id number] [address] [place] [address] [place] Monocytes/100 WBC (Bld) 5.3 % Normal [facility] Comment on above: Order Comment: Speci men Type: TISSUE SPECIMEN Ordering Facility: [facility] Address: [address] [place] [address] Performed By: #### 6 6121-5 #### [facility] CLIA [id number] [address] [place] [address] [place] Neutrophils (Bld) [#/Vol] 5.18 10*3/uL Normal 1.45-7.50 [facility] Comment on above: Order Comment: Speci men Type: TISSUE SPECIMEN Ordering Facility: [facility] Address: [address] [place] [address] Performed By: #### 6 6121-5 #### [facility] CLIA [id number] [address] [place] [address] [place] Neutrophils/100 WBC (Bld) 66.0 % Normal [facility] Comment on above: Order Comment: Speci men Type: TISSUE SPECIMEN Ordering Facility: [facility] Address: [address] [place] [address] Performed By: #### 6 6121-5 #### [facility] CLIA [id number] [address] [place] [address] [place] Nucleated RBC (Bld) [#/Vol] 10*3/uL Normal <0.01 [facility] Comment on above: Order Comment: Speci men Type: TISSUE SPECIMEN Ordering Facility: [facility] Address: [address] [place] [address] Performed By: #### 6 6121-5 #### [facility] CLIA [id number] [address] [place] [address] [place] Nucleated RBC/100 WBC (Bld) [Ratio] 0.0 /100 WBC Normal [facility] Comment on above: Order Comment: Speci men Type: TISSUE SPECIMEN Ordering Facility: [facility] Address: [address] [place] [address] Performed By: #### 6 6121-5 #### [facility] CLIA [id number] [address] [place] [address] [place] Platelet mean volume (Bld) [Entitic vol] 10.0 fL Normal 9.0-12.7 [facility] Comment on above: Order Comment: Speci men Type: TISSUE SPECIMEN Ordering Facility: [facility] Address: [address] [place] [address] Performed By: #### 6 6121-5 #### [facility] CLIA [id number] [address] [place] [address] [place] Platelets (Bld) [#/Vol] 338 10*3/uL Normal 150-400 [facility] Comment on above: Order Comment: Speci men Type: TISSUE SPECIMEN Ordering Facility: [facility] Address: [address] [place] [address] Performed By: #### 6 6121-5 #### [facility] CLIA [id number] [address] [place] [address] [place] RBC (Bld) [#/Vol] 4.42 10*6/uL Normal 3.90-5.20 [facility] Comment on above: Order Comment: Speci men Type: TISSUE SPECIMEN Ordering Facility: [facility] Address: [address] [place] [address] Performed By: #### 6 6121-5 #### [facility] CLIA [id number] [address] [place] [address] [place] WBC (Bld) [#/Vol] 7.86 10*3/uL Normal 3.70-11.00 [facility] Comment on above: Order Comment: Speci men Type: TISSUE SPECIMEN Ordering Facility: [facility] Address: [address] [place] [address] Performed By: #### 6 6121-5 #### [facility] CLIA [id number] [address] [place], [place] [address] [place] CT ABD/PEL W IVCONon 025 CT ABD/PEL W IVCON * * *Final Report* * * DATE OF EXAM: Jun 21 2024 6:21PM [facility] 0530 - CT ABD/PEL W IVCON [...] acute findings in the abdomen or pelvis. Activities Director Scouting: PSCB Transcribe Date/Time: Jun 21 2024 7:16P Dictated by : MUKUL CURTIS MD This examination was interpreted and the report reviewed and electronically signed by: JOVANY VALDEZ MD on Jun 21 2024 7:40PM EST [id number] Normal [facility] Comprehensive metabolic 2000 panelon 06-21-2024 Albumin [Mass/Vol] 4.8 g/dL Normal 3.9-4.9 [facility] Comment on above: Order Comment: Speci men Type: BLOOD SPECIMENOrdering Facility: [facility] Address: [address] [place] [address] Performed By: #### 2 4356-8, 630-4 #### [facility] CLIA [id number] [address] [place] [address] [place] ALP [Catalytic activity/Vol] 81 U/L Normal 34-123 [facility] Comment on above: Order Comment: Speci men Type: BLOOD SPECIMENOrdering Facility: [facility] Address: [address] [place] [address] Performed By: #### 2 4356-8, 630-4 #### [facility] CLIA [id number] [address] [place] [address] [place] ALT [Catalytic activity/Vol] 31 U/L Normal 7-38 [facility] Comment on above: Order Comment: Speci men Type: BLOOD SPECIMENOrdering Facility: [facility] Address: [address] [place] [address] Performed By: #### 2 4356-8, 630-4 #### [facility] CLIA [id number] [address] [place], [place] [address] [place] Anion gap [Moles/Vol] 12 mmol/L Normal 8-15 [facility] Comment on above: Order Comment: Speci men Type: BLOOD SPECIMENOrdering Facility: [facility] Address: [address] [place] [address] Performed By: #### 2 4356-8, 630-4 #### [facility] CLIA [id number] [address] [place], [place] [address] [place] AST [Catalytic activity/Vol] 27 U/L Normal 13-35 [facility] Comment on above: Order Comment: Speci men Type: BLOOD SPECIMENOrdering Facility: [facility] Address: [address] [place] [address] Performed By: #### 2 4356-8, 630-4 #### [facility] CLIA [id number] [address] [place] [address] [place] Bilirubin [Mass/Vol] 0.5 mg/dL Normal 0.2-1.3 [facility] Comment on above: Order Comment: Speci men Type: BLOOD SPECIMENOrdering Facility: [facility] Address: [address] [place] [address] Performed By: #### 2 4356-8, 630-4 #### [facility] CLIA [id number] [address] [place] [address] [place] Calcium [Mass/Vol] 9.5 mg/dL Normal 8.5-10.2 [facility] Comment on above: Order Comment: Speci men Type: BLOOD SPECIMENOrdering Facility: [facility] Address: [address] [place] [address] Performed By: #### 2 4356-8, 630-4 #### [facility] CLIA [id number] [address] [place] [address] [place] Chloride [Moles/Vol] 103 mmol/L Normal 98-107 [facility] Comment on above: Order Comment: Speci men Type: BLOOD SPECIMENOrdering Facility: [facility] Address: [address] [place] [address] Performed By: #### 2 4356-8, 630-4 #### [facility] CLIA [id number] [address] [place] [address] [place] CO2 [Moles/Vol] 23 mmol/L Normal 22-30 [facility] Comment on above: Order Comment: Speci men Type: BLOOD SPECIMENOrdering Facility: [facility] Address: [address] [place] [address] Performed By: #### 2 4356-8, 630-4 #### [facility] CLIA [id number] [address] [place] [address] [place] Creatinine [Mass/Vol] 0.70 mg/dL Normal 0.58-0.96 [facility] Comment on above: Order Comment: Speci men Type: BLOOD SPECIMENOrdering Facility: [facility] Address: [address] [place] [address] Performed By: #### 2 4356-8, 630-4 #### [facility] CLIA [id number] [address] [place] [address] [facility] [place] Creatinine and Glomerular filtration rate.predicted panel (S/P/Bld) 120 mL/min/1.73m??? Normal >=60 [facility] Comment on above: Order Comment: Speci men Type: BLOOD SPECIMENOrdering Facility: [facility] Address: [address] [place] [address] Result Comment: Cristy mated Glomerular Filtration Rate (eGFR) is calculated using the 2020 CKD-EPI creatinine equation. This equation utilizes serum creatinine, sex, and age as parameters. The creatinine assay has traceable calibration to isotope dilution-mass spectrometry. Refer to KDIGO guidelines for clinical interpretation. In patients with unstable renal function, e.g. those with acute kidney injury, the eGFR may not accurately reflect actual GFR. Performed By: #### 2 4356-8, 630-4 #### [facility] CLIA [id number] [address] [place] [address] [place] Glucose [Mass/Vol] 89 mg/dL Normal 74-99 [facility] Comment on above: Order Comment: Speci men Type: BLOOD SPECIMENOrdering Facility: [facility] Address: [address] [place] [address] Result Comment: The [place] Diabetes Association (ADA) provides guidance for cutoff [...] Standards of Medical Care in Diabetes 2016, [place] Diabetes Association. Diabetes Care. 2016.39(Suppl 1). Performed By: #### 2 4356-8, 630-4 #### [facility] CLIA [id number] [address] [place] [address] [place] Potassium [Moles/Vol] 4.0 mmol/L Normal 3.7-5.1 [facility] Comment on above: Order Comment: Speci men Type: BLOOD SPECIMENOrdering Facility: [facility] Address: [address] [place] [address] Performed By: #### 2 4356-8, 630-4 #### [facility] IA [id number] [address] [place] [address] [place] Protein [Mass/Vol] 7.8 g/dL Normal 6.3-8.0 [facility] Comment on above: Order Comment: Speci men Type: BLOOD SPECIMENOrdering Facility: [facility] Address: [address] [place] [id number] Performed By: #### 2 4356-8, 630-4 #### [facility] CLIA [id number] [address] [place] [address] [place] Sodium [Moles/Vol] 138 mmol/L Normal 136-144 [facility] Comment on above: Order Comment: Speci men Type: BLOOD SPECIMENOrdering Facility: [facility] Address: [address] [place] [address] Performed By: #### 2 4356-8, 630-4 #### [facility] CLIA [id number] [address] [place] [address] [place] Urea nitrogen [Mass/Vol] 12 mg/dL Normal 7-21 [facility] Comment on above: Order Comment: Speci men Type: BLOOD SPECIMENOrdering Facility: [facility] Address: [address] [place] [address] Performed By: #### 2 4356-8, 630-4 #### [facility] CLIA [id number] [address] [place] [address] [place] ED NOTEon 06-21-2024 ED NOTE HNO ID: [id number] Author: RICH BATES RN Service: Emergency Medicine Author Type: Registered Nurse Type: ED Notes Filed: 06/21/2024 20:20 Note Text: Pt. Provided with discharge instructions at this time. All questions answered, medications discussed and follow-up information reviewed at length. Pt. Verbalized understanding. VSS, PIV removed, pt. Ambulatory off unit in stable condition. Normal [facility] ED PROV NOTEon 06-21-2024 ED PROV NOTE HNO ID: [id number] Author: RUDDY SLATER PA-C Service: Emergency Medicine Author Type: Physician Day Habilitation Supervisor Type: ED Provider Notes Filed: 06/21/2024 19:59 [...] Bilirubin, Urine Negative Ketones, Urine Trace(!) Specific [place], Ur 1.026 Hemoglobin/Blood,Ur 2+(!) pH, Urine 5.5 [...] (ANC) 5.18 Lymph% 26.8 Abs Lymph 2.11 [place]% 5.3 Abs [place] 0.42 Eosin% 0.6 Abs Eosin 0.05 Baso% [...] AM ED Provider Note Patient Name: Adina Martienz : 1995 SERVICE DATE: 06/21/24 History Patient [...] SURGICAL HISTORY Procedure Laterality Date PAST SURGICAL HIS (more content not included)... Normal [facility] ED Triage Noteon 06-21-2024 ED Triage Note HNO ID: [id number] Author: CLIFFORD SCOTT MD Service: Emergency Medicine Author Type: Physician Type: ED Triage Notes Filed: 06/21/2024 14:37 Note Text: ED TRIAGE PROVIDER NOTE Patient Name: Adina Martinez Service Date: 06/21/24 BRIEF HPI: This is [...] HCG URINE QUALITATIVE SIGNATURE: Clifford Scott MD Normal [facility] HCG Preg Ur Qlon 06-21-2024 HCG ( test) Ql (U) Negative Normal Negative [facility] Comment on above: Order Comment: Speci men Type: TISSUE SPECIMEN Ordering Facility: [facility] Address: [address] [place] [address] Result Comment: This test is intended to aid in the early detection of . Very dilute urine samples, as indicated by a low specific gravity, may not contain sales promotion representative levels of hCG. This test detects [...] presumptive diagnosis for . Performed By: #### 6 6121-5 #### [facility] CLIA [id number] [address] [place] [address] [place] Lipase SerPl-cCncon 06-22-19 25 Lipase [Catalytic activity/Vol] 28 U/L Normal 16-61 [facility] Comment on above: Order Comment: Speci men Type: BLOOD SPECIMENOrdering Facility: [facility] Address: [address] [place] [address] Performed By: #### 2 4356-8, 630-4 #### [facility] CLIA [id number] [address] [place] [address] [place] Magnesium SerPl-mCncon 06-21 Magnesium [Mass/Vol] 2.1 mg/dL Normal 1.7-2.3 [facility] Comment on above: Order Comment: Speci marcos Type: BLOOD SPECIMENOrdering Facility: [facility] Address: [address] [place] [address] Performed By: #### 2 4356-8, 630-4 #### [facility] CLIA [id number] [address] [place] [address] [place] Urinalysis complete panel (U )on 06-21-2024 BACTERIA UL >9821 High Negative [facility] Comment on above: Order Comment: Speci men Type: URINE SPECIMEN Ordering Facility: [facility] Address: [address] [place] [address] Performed By: #### 2 4356-8, 630-4 #### [facility] CLIA [id number] [address] [id number] [place] Bilirubin Ql (U) Negative Normal Negative [facility] Comment on above: Order Comment: Speci men Type: URINE SPECIMEN Ordering Facility: [facility] Address: [address] [place] [address] Performed By: #### 2 4356-8, 630-4 #### [facility] CLIA [id number] [address] [place] [address] [place] Clarity (Unsp spec) Cloudy Abnormal Clear [facility] Comment on above: Order Comment: Speci men Type: URINE SPECIMEN Ordering Facility: [facility] Address: [address] [place] [address] Performed By: #### 2 4356-8, 630-4 #### [facility] CLIA [id number] [address] [place] [address] [place] [facility] Color (U) Yellow Normal Yellow [facility] Comment on above: Order Comment: Speci men Type: URINE SPECIMEN Ordering Facility: [facility] Address: [address] [place] [address] Performed By: #### 2 4356-8, 630-4 #### [facility] CLIA [id number] [address] [place] [address] [place] Epithelial cells LM.HPF (Urine sed) [#/Area] Many Normal [facility] Comment on above: Order Comment: Speci men Type: URINE SPECIMEN Ordering Facility: [facility] Address: [address] [place] [address] Performed By: #### 2 4356-8, 630-4 #### [facility] CLIA [id number] [address] [place] [address] [place] Glucose Test strip (U) [Mass/Vol] Negative Normal Negative [facility] Comment on above: Order Comment: Speci men Type: URINE SPECIMEN Ordering Facility: [facility] Address: [address] [place] [address] Performed By: #### 2 4356-8, 630-4 #### [facility] CLIA [id number] [address] [place] [address] [place] Hemoglobin Ql (U) 2+ Abnormal Negative [facility] Comment on above: Order Comment: Speci men Type: URINE SPECIMEN Ordering Facility: [facility] Address: [address] [place] [address] Performed By: #### 2 4356-8, 630-4 #### [facility] CLIA [id number] [address] [place] [address] [place] Hyaline casts (Urine sed) [#/Area] /[LPF] Abnormal 0 /LPF [facility] Comment on above: Order Comment: Speci men Type: URINE SPECIMEN Ordering Facility: [facility] Address: [address] [place] [address] Performed By: #### 2 4356-8, 630-4 #### [facility] CLIA [id number] [address] [place] [address] [place] Ketones Ql (U) Trace Abnormal Negative [facility] Comment on above: Order Comment: Speci men Type: URINE SPECIMEN Ordering Facility: [facility] Address: [address] [place] [address] Performed By: #### 2 4356-8, 630-4 #### [facility] CLIA [id number] [address] [place] [address] [place] Leukocyte esterase Test strip Ql (U) 1+ Abnormal Negative [facility] Comment on above: Order Comment: Speci men Type: URINE SPECIMEN Ordering Facility: [facility] Address: [address] [place] [address] Performed By: #### 2 4356-8, 630-4 #### [facility] CLIA [id number] [address] [place] [address] [place] Nitrite Ql (U) Negative Normal Negative [facility] Comment on above: Order Comment: Speci men Type: URINE SPECIMEN Ordering Facility: [facility] Address: [address] [place] [address] Performed By: #### 2 4356-8, 630-4 #### [facility] CLIA [id number] [address] [place] [address] [place] pH (U) 5.5 [pH] Normal <8.5 [facility] Comment on above: Order Comment: Speci men Type: URINE SPECIMEN Ordering Facility: [facility] Address: [address] [place] [address] Performed By: #### 2 4356-8, 630-4 #### [facility] CLIA [id number] [address] [place] [address] [place] Protein (U) [Mass/Vol] 1+ Abnormal Negative [facility] Comment on above: Order Comment: Speci men Type: URINE SPECIMEN Ordering Facility: [facility] Address: [address] [place] [address] Performed By: #### 2 4356-8, 630-4 #### [facility] CLIA [id number] [address] [place] [address] [place] RBC LM.HPF (Urine sed) [#/Area] 3-5 /HPF Abnormal 0-2 /HPF [facility] Comment on above: Order Comment: Speci men Type: URINE SPECIMEN Ordering Facility: [facility] Address: [address] [place] [address] Performed By: #### 2 4356-8, 630-4 #### [facility] CLIA [id number] [address] [place] [address] [place] Specific gravity (U) [Rel density] 1.026 Normal 1.005-1.030 [facility] Comment on above: Order Comment: Speci men Type: URINE SPECIMEN Ordering Facility: [facility] Address: [address] [place] [address] Performed By: #### 2 4356-8, 630-4 #### [facility] CLIA [id number] [address] [place] [address] [place] Urobilinogen Ql (U) 0.2 EU/dL Normal 0.2-1.0 EU/dL [facility] Comment on above: Order Comment: Speci men Type: URINE SPECIMEN Ordering Facility: [facility] Address: [address] [place] [address] Performed By: #### 2 4356-8, 630-4 #### [facility] CLIA [id number] [address] [place] [address] [place] WBC LM.HPF (Urine sed) [#/Area] 11-20 /HPF Abnormal 0-5 /HPF [facility] Comment on above: Order Comment: Speci men Type: URINE SPECIMEN Ordering Facility: [facility] Address: [address] [place] [address] Performed By: #### 2 4356-8, 630-4 #### [facility] CLIA [id number] [address] [place] [address] [place] ECG 12 Leadon 05-08-2024 ECG revealed normal sinus rhythm, normal ECG [facility] Work Phone: CHEMISTRYOrdered By: SYSTEM SYSTEM on 04-16-2024 Free T4 [Mass/Vol] 0.61 ng/dL Normal 0.58 - 1. 64 ng/dL [facility] Chem TSH Qn 6.68 m[IU]/L High 0.34 - 5.60 mcIU/mL Remisol Chem [facility] TSH WITH T4FR REFLEXon 04-16-2024 FT THYROTROPIN:ACNC:PT:SER /PLAS:QN: 6.68 High [facility] Interpretation and review of laboratory results Abnormal [facility] Original Ordering Provider: [facility]Y [facility]ACK[facility]T [facility] Free T4on 04-16-2024 Free T4 [Mass/Vol] 0.61 ng/dL Normal 0.58-1.64 [facility] Comment on above: Performed By: #### 2 [id number] #### [facility] [address] [place] [address] TSH With T4fr Reflexon 04-16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 80.0-100.0 [facility] Comment on above: Performed By: #### 2 [id number] #### [facility] [address] [place] [address] Platelet mean volume (Bld) [Entitic vol] 8.1 fL Normal 6.4-10.8 [facility] Comment on above: Performed By: #### 2 [id number] #### [facility] [address] [place] [address] Platelets (Bld) [#/Vol] 347.0 E9/L Normal 150.0-500.0 [facility] Comment on above: Performed By: #### 2 [id number] #### [facility] [address] [place] [address] RBC (Bld) [#/Vol] 4.4 E12/L Normal 4.3-5.9 [facility] Comment on above: Performed By: #### 2 [id number] #### [facility] [address] [place] [address] WBC corrected for nucl RBC Auto (Bld) [#/Vol] 10.7 E9/L Normal 4.0-11.0 [facility] Comment on above: Performed By: #### 2 [id number] #### [facility] [address] [place] [address] CHEMISTRYOrdered By: SYSTEM SYSTEM on 02-14-2023 Albumin [Mass/Vol] 3.8 g/dL Normal 3.3 - 5.0 gm/dL [facility] Albumin/Globulin [Mass ratio] 1.0 {ratio} Low 1.1 - 2.2 [facility] ALP [Catalytic activity/Vol] 72 [iU]/d Normal 21 - 98 Int._Unit/L [facility] ALT No additional P-5'-P [Catalytic activity/Vol] 14 [iU]/d Normal 6 - 46 Int._Unit/L [facility] Anion gap [Moles/Vol] 10 mmol/L Normal 6 - 16 mEq/L [facility] AST [Catalytic activity/Vol] 20 [iU]/d Normal 5 - 43 Int._Unit/L [facility] Bilirubin [Mass/Vol] 0.3 mg/dL Normal 0.0 - 1 .1 mg/dL [facility] Calcium [Mass/Vol] 9.6 mg/dL Normal 8.9 - 11. 1 mg/dL [facility] Chloride [Moles/Vol] 109 mmol/L Normal 101 - 1 11 mmol/L [facility] CO2 [Moles/Vol] 24 mmol/L Normal 21 - 31 mmol/L [facility] Creatinine [Mass/Vol] 0.7 mg/dL Normal 0.5 - 1.3 mg/dL [facility] GFR/1.73 sq M.predicted among non-blacks MDRD (S/P/Bld) [Vol rate/Area] 121 mL/min/1.73 m2 Normal >=59mL/min/ 1.73 m2 [facility] Chem S Comment on above: Interpretive Data: C hronic kidney disease could be indicated at eGFR's of less than 60 mL/min/1.73m2. Kidney failure is indicated at less than 15 mL/min/1.73m2. Globulin (S) [Mass/Vol] 3.7 g/dL Normal 1.4 - 4.0 gm/dL [facility] Glucose [Mass/Vol] 92 mg/dL Normal 55 - 199 mg/dL [facility] Comment on above: Interpretive Data: I f this glucose result represents a fasting glucose, interpretation should refer to the following reference range: 55-99 mg/dL Potassium [Moles/Vol] 3.9 mmol/L Normal 3.5 - 5.3 mmol/L [facility] Protein [Mass/Vol] 7.5 g/dL Normal 6.0 - 7.8 gm/dL [facility] Sodium [Moles/Vol] 139 mmol/L Normal 135 - 145 mmol/L [facility] Urea nitrogen [Mass/Vol] 12 mg/dL Normal 5 - 21 mg/dL [facility] Urea nitrogen/Creatinine [Mass ratio] 17 mg/mg Normal 10 - 20 [facility] Albumin [Mass/Vol] 3.7 g/dL Normal 3.3 - 5.0 gm/dL [facility] Albumin/Globulin [Mass ratio] 1.1 {ratio} Normal 1.1 - 2.2 [facility] ALP [Catalytic activity/Vol] 74 [iU]/d Normal 21 - 98 Int._Unit/L [facility] ALT No additional P-5'-P [Catalytic activity/Vol] 14 [iU]/d Normal 6 - 46 Int._Unit/L [facility] Anion gap [Moles/Vol] 9 mmol/L Normal 6 - 16 mEq/L [facility] AST [Catalytic activity/Vol] 15 [iU]/d Normal 5 - 43 Int._Unit/L [facility] Bilirubin [Mass/Vol] 0.2 mg/dL Normal 0.0 - 1 .1 mg/dL [facility] Bilirubin.direct [Mass/Vol] mg/dL Normal 0.1 - 0.4 mg/dL [facility] Bilirubin.indirect [Mass or moles/Vol] Unable to Calculate mg/dL Invalid Interpretation Code 0.1 - 0.9 mg/dL [facility] Calcium [Mass/Vol] 8.7 mg/dL Low 8.9 - 11. 1 mg/dL [facility] Chloride [Moles/Vol] 108 mmol/L Normal 101 - 1 11 mmol/L [facility] CO2 [Moles/Vol] 24 mmol/L Normal 21 - 31 mmol/L [facility] Creatinine [Mass/Vol] 0.8 mg/dL Normal 0.5 - 1.3 mg/dL [facility] GFR/1.73 sq M.predicted among non-blacks MDRD (S/P/Bld) [Vol rate/Area] 103 mL/min/1.73 m2 Normal >=59mL/min/ 1.73 m2 [facility] Chem S Comment on above: Interpretive Data: C hronic kidney disease could be indicated at eGFR's of less than 60 mL/min/1.73m2. Kidney failure is indicated at less than 15 mL/min/1.73m2. Globulin (S) [Mass/Vol] 3.4 g/dL Normal 1.4 - 4.0 gm/dL [facility] Glucose [Mass/Vol] 107 mg/dL Normal 55 - 199 mg/dL [facility] Comment on above: Interpretive Data: I f this glucose result represents a fasting glucose, interpretation should refer to the following reference range: 55-99 mg/dL Lipase [Catalytic activity/Vol] 35 U/L Normal 13 - 58 unit/L [facility] Potassium [Moles/Vol] 3.5 mmol/L Normal 3.5 - 5.3 mmol/L [facility] Protein [Mass/Vol] 7.1 g/dL Normal 6.0 - 7.8 gm/dL [facility] Sodium [Moles/Vol] 137 mmol/L Normal 135 - 145 mmol/L [facility] Urea nitrogen [Mass/Vol] 13 mg/dL Normal 5 - 21 mg/dL [facility] Remisol Urea nitrogen/Creatinine [Mass ratio] 16 mg/mg Normal 10 - 20 [facility] Remisol CMPon 02-14-2023 Albumin [Mass/Vol] 3.8 g/dL Normal 3.3-5.0 [facility] Comment on above: Performed By: #### 2 [id number] #### [facility] [address] [place] [address] Albumin/Globulin (S) [Mass conc ratio] 1.0 Low 1.1-2.2 [facility] Comment on above: Performed By: #### 2 [id number] #### [facility] [address] [place] [address] ALP [Catalytic activity/Vol] 72 Int._Unit/L Normal 21-98 [facility] Comment on above: Performed By: #### 2 [id number] #### [facility] [address] [place] [address] ALT No additional P-5'-P [Catalytic activity/Vol] 14 Int._Unit/L Normal 6-46 [facility] Comment on above: Performed By: #### 2 [id number] #### [facility] [address] [place] [address] Anion gap [Moles/Vol] 10 mmol/L Normal 6-16 [facility] Comment on above: Performed By: #### 2 [id number] #### [facility] [address] [place] [address] AST [Catalytic activity/Vol] 20 Int._Unit/L Normal 5-43 [facility] Comment on above: Performed By: #### 2 [id number] #### [facility] [address] [place] [address] Bilirubin [Mass/Vol] 0.3 mg/dL Normal 0.0-1.1 [facility] Comment on above: Performed By: #### 2 [id number] #### [facility] [address] [place] [address] Calcium [Mass/Vol] 9.6 mg/dL Normal 8.9-11.1 [facility] Comment on above: Performed By: #### 2 [id number] #### [facility] [address] [place] [address] Chloride [Moles/Vol] 109 mmol/L Normal 101-[address] [facility] Comment on above: Performed By: #### 2 [id number] #### [facility] [address] [place] [address] CO2 [Moles/Vol] 24 mmol/L Normal 21-31 [facility] Comment on above: Performed By: #### 2 [id number] #### [facility] [address] [place] [address] Creatinine [Mass/Vol] 0.7 mg/dL Normal 0.5-1.3 [facility] Comment on above: Performed By: #### 2 [id number] #### [facility] [address] [place] [address] Globulin (S) [Mass/Vol] 3.7 g/dL Normal 1.4-4.0 [facility] Comment on above: Performed By: #### 2 [id number] #### [facility] [address] [place] [address] Glucose [Mass/Vol] 92 mg/dL Normal 55-199 [facility] Comment on above: Result Comment: If t his glucose result represents a fasting glucose, interpretation should refer to the following reference range: 55-99 mg/dL Performed By: #### 2 [id number] #### [facility] [address] [place] [address] Potassium [Moles/Vol] 3.9 mmol/L Normal 3.5-5.3 [facility] Comment on above: Performed By: #### 2 [id number] #### [facility] [address] [place] [address] Protein [Mass/Vol] 7.5 g/dL Normal 6.0-7.8 [facility] Comment on above: Performed By: #### 2 [id number] #### [facility] [address] [place] [address] Sodium [Moles/Vol] 139 mmol/L Normal 135-145 [facility] Comment on above: Performed By: #### 2 [id number] #### [facility] [address] [place] [address] Urea nitrogen [Mass/Vol] 12 mg/dL Normal 5-21 [facility] Comment on above: Performed By: #### 2 [id number] #### [facility] [address] [place] [address] Urea nitrogen/Creatinine [Mass ratio] 17 No Units Normal 10-20 [facility] Comment on above: Performed By: #### 2 [id number] #### [facility] [address] [place] [address] CT Abdomen/Pelvis w/ Contras ton 02-14-2023 CT Abdomen/Pelvis w/ Contrast Exam Date/Time: 02/14/2023 03:58 EST Reason for Exam: Abdominal pain, acute, nonlocalized;Other (please specify) Report IMPRESSION: No acute process in the abdomen/pelvis. Likely postsurgical changes/scarring of the right abdominal wall from resection fat density lesion, as discussed. Correlate with the surgical pathology. EXAMINATION: CT Abdomen/Pelvis w/ Contrast HISTORY: Abdominal pain, acute, nonlocalized. Upper abdominal pain, worsening. History of PCOS. History of excision of lipoma from the right abdominal wall. TECHNIQUE: CT of the abdomen and pelvis was performed using standard technique with intravenous contrast, scanning from just above the dome of the diaphragm to the symphysis pubis. Including delayed images through the kidneys. Including sagittal and coronal reconstructions on both phases. All CT scans at this facility use dose modulation, iterative reconstruction, and/or weight based dosing when appropriate to reduce radiation dose to as low as reasonably achievable. COMPARISON: CT 11/18/2022. RESULT: Liver: No mass or lesion. Biliary: Gallbladder unremarkable. No biliary ductal dilation. Pancreas: No mass or duct dilation. Spleen: No mass or splenomegaly. Adrenals: No mass. Kidneys: No mass, calculus or hydronephrosis. Delayed phase imaging with normal excreted contrast in the renal collecting system, ureters, and bladder. GI tract: No dilation or wall thickening. Normal appendix. No evidence for diverticulitis. Scattered colonic feces. Lymph nodes: No abdominal or pelvic lymphadenopathy. Mesentery/Peritoneum/ Retroperitoneum: No ascites or mass. Report Vasculature: The celiac axis and SMA are patent. The portal vein and branches, splenic vein, SMV, and hepatic veins are patent. No abdominal aortic or iliac artery aneurysm. Pelvis: No significant free fluid. Uterus unremarkable. Bladder unremarkable. Bones: No acute osseous findings. Soft tissues: Small area of ill-defined subcutaneous stranding within the right abdomen periumbilical region, likely postsurgical scarring, as on the prior study from 11/18/2022 there is a well-circumscribed fat density lesion at this site, and there is given clinical history of resection of lipoma from the right abdominal wall. Subcutaneous tissues otherwise unremarkable. Lower thorax: Calcified granuloma at the right lung base. Ordering Provider: Héctor Christianson FINAL REPORT Dictated: 02/14/2023 8:53 am Leonardo Fairchild MD Signed (Electronic Signature): 02/14/2023 8:53 am Signed by: Leonardo Fairchild MD Transcribed by: MIRIAM Technologist: CAROLINE Technical Comments GFR (mL/min/1/73m2) n/a; age Contrast: Isovue 300 Contrast amount in ml's: 100 Normal [facility] Consent for Treatmenton Consent for Treatment [id number]#1 .00TIFF Normal [facility] Consent for Treatment [id number] .00TIFF Normal [facility] Discharge Instructionson Discharge Instructions [id number]# 1.00TIFF Normal [facility] ED Clinical Summaryon 2022 ED Clinical Summary [place] [id number] ED Clinical Summary Person Information Name: ADINA MARTINEZ/[facility] Age: 28 Years : 1995 Sex: Female Language: Australian PCP: Linnea HACKETT PA-C Marital Status: Single Visit Id: Visit Reason: Medical problem - minor; Abdominal pain; ABD PAIN Speciality: Acuity: 3 Enc Type: Emergency Med Service: Emergency Arrival: 02/14/2023 02:28:07 Discharge: 02/14/2023 07:13:50 LOS: 000 04:45 Checkin: 02/14/2023 02:28:07 Checkout: 02/14/2023 07:13:50 Dispo Type: Home (Routine DC) EVENTS: Event Name Event Status Request Date/Time Start Date/Time Complete Date/Time Arrive Complete 02/14/2023 02:28:07 02/14/2023 02:28:07 02/14/2023 02:28:07 Document Home Meds Request 02/14/2023 02:28:07 Triage Complete 02/14/2023 02:28:07 02/14/2023 02:34:25 02/14/2023 02:34:25 Registration Complete 02/14/2023 02:30:20 02/14/2023 02:30:20 02/14/2023 02:30:20 Reg Complete Request 02/14/2023 02:30:20 Reg Bed Request Complete 02/14/2023 02:30:20 02/14/2023 02:30:20 02/14/2023 02:30:20 Dr Exam Complete 02/14/2023 02:31:33 02/14/2023 02:31:33 02/14/2023 02:31:33 Registration Start 02/14/2023 02:31:33 02/14/2023 02:35:46 Bed Assign Complete 02/14/2023 02:35:46 02/14/2023 02:35:46 02/14/2023 02:35:46 RN Exam Complete 02/14/2023 02:35:46 02/14/2023 05:36:36 02/14/2023 05:36:36 Meds Admin Complete 02/14/2023 02:40:11 02/14/2023 02:49:52 Pending Labs Complete 02/14/2023 02:40:11 02/14/2023 06:11:09 Lab Complete 02/14/2023 02:40:11 02/14/2023 06:11:09 Urine Collect Complete 02/14/2023 02:40:11 02/14/2023 06:11:09 Patient Care Request 02/14/2023 02:40:11 CT Complete 02/14/2023 02:40:11 02/14/2023 03:36:20 02/14/2023 03:58:43 Pending Labs Complete 02/14/2023 02:51:43 02/14/2023 02:51:43 02/14/2023 03:18:21 Lab Complete 02/14/2023 02:51:43 02/14/2023 02:51:43 02/14/2023 03:18:21 Pending Labs Complete 02/14/2023 02:55:24 02/14/2023 02:55:24 02/14/2023 02:55:34 Lab Complete 02/14/2023 02:55:24 02/14/2023 02:55:24 02/14/2023 02:55:34 Meds Admin Complete 02/14/2023 03:12:47 02/14/2023 03:21:46 Meds Admin Complete 02/14/2023 03:41:47 02/14/2023 04:11:53 Pending Labs Complete 02/14/2023 06:07:23 02/14/2023 06:07:23 02/14/2023 06:07:23 Pending Labs Collected 02/14/2023 06:11:10 02/14/2023 06:11:10 Lab Collected 02/14/2023 06:11:10 02/14/2023 06:11:10 Discharge Complete 02/14/2023 06:26:02 02/14/2023 07:14:20 02/14/2023 07:14:20 Transfer Complete 02/14/2023 07:14:20 02/14/2023 07:14:20 02/14/2023 07:14:20 ADDRESS: [address] [place] [id number] PHYS DOC NOTES: MEDICAL INFORMATION: Prescriptions Given: New Medications [id number], [address] [place], [place] [id number], [phone] dicyclomine (Bentyl 10 mg Cap) 1 Capsules By Mouth 4 times a day for 7 Days. Refills: 0. famotidine (Pepcid 20 mg Tab) 1 Tablets By Mouth every day for 7 Days. Refills: 0. Medications to Continue with No Changes Other Medications albuterol (Albuterol (Eqv-ProAir HFA) 90 mcg/inh inhalation aerosol) 1 Puffs Inhalation every 6 hours as needed Shortness of breath or wheezing. desogestrel-ethinyl estradiol (Isibloom 0.15 mg-0.03 mg oral tablet) 1 Tablets By Mouth every day. fluoxetine (Prozac 10 mg Cap) 1 Capsules By Mouth every day. levothyroxine (levothyroxine 137 mcg (0.137 mg) oral capsule) 1 Capsules By Mouth every day. metformin (metformin 500 mg ER Tab) 1 Tablets By Mouth every day. naproxen (Naprosyn 500 mg Tab) 1 Tablets By Mouth 2 times a day. Refills: 0. phentermine (Adipex-P 37.5 mg Tab) 1 Tablets By Mouth every day. PATIENT EDUCATION INFORMATION: Instructions: Abdominal Pain, Adult Follow up: With: Address: When: Linnea HACKETT [address] [place] [address] Business (1) In 3 days DIAGNOSIS: AP (abdominal pain) Normal [facility] ED Note-Physicianon 02-15-20 ED Note-Physician Basic Information Time Seen: Héctor Christianson DO 02/14/2023 02:31 Chief Complaint Upper ABD pain since 0000 and feels as though everything is twisting. Pain has been worsening. No N/V/D. History of Present Illness HPI: Patient is a 28-year-old female past ministry of anxiety, depression, migraines, PCOS who presents the ED for abdominal pain. Patient states this for started yesterday morning and has been steadily worsening. The pain is in her upper abdomen more on the right than the left. She states that it feels like it is pushing on her diaphragm and making it hard to breathe. She denies any nausea or vomiting. She denies any change in bowel movements. She denies any urinary symptoms. She denies any fever or chills. She has never had pain like this in the past. ROS: Pertinent review of systems conducted and is negative except as noted above. Physical exam: General: nontoxic appearing and in no distress HEENT: Mucous membranes moist Neuro: awake and alert Neck: supple, trachea midline Card: Heart regular rate and rhythm no murmur Resp: Lungs clear to auscultation no wheeze or rhonchi Abd: Soft and nondistended. Right Upper quadrant tenderness without rebound or guarding. Small horizontal surgical scar to the right of the umbilicus with out surrounding erythema. Ext: No gross deformity or edema Physical Exam Vitals & Measurements T: 37.1 ?C(Tympanic) HR: 94(Peripheral) RR: 16 BP: 156/113 SpO2: 100% HT: 173 cm WT: 119.3 kg BMI: 39.86 Medical Decision Making MEDICAL DECISION MAKING Number and Complexity of Problems Differential Diagnosis: [] [facility] Data External documents reviewed: N/A My EKG interpretation: Noted in chart if applicable My CT interpretation: N/A My X-ray interpretation: Noted in chart if applicable My Ultrasound interpretation: N/A Decision rules/scores evaluated: N/A Discussed with: N/A Treatment and Disposition ED Course: Patient is nontoxic-appearing and in no distress. She does have some significant tenderness of the right upper quadrant so we will obtain a CT scan of the abdomen pelvis in addition to blood work and urinalysis to evaluate. Patient was given IV fluids as well as Toradol initially for pain. Blood work is overall reassuring. Urine shows no sign of acute infection. She did have some continued discomfort so she was given a dose of morphine as well. CT abdomen pelvis shows no acute intra-abdominal process. There is some subcutaneous infiltration of the right abdominal wall to the right of the umbilicus. On reviewing of the CT scan and reevaluation of the patient's abdomen the small area of subcutaneous infiltration noted on the scan is in the area where she has the small surgical incision scar where she had a small lipoma removed. There is no erythema or tenderness in this area. I discussed the patient's results with her at bedside. We discussed the plan of discharge with a prescription for Bentyl and Pepcid. She reports that she already has a appointment scheduled with her physician later today. I encouraged her to keep this follow-up appointment. We also discussed increasing oral hydration and sticking to an easy to digest diet. Patient states understanding agreement this plan is discharged in stable condition. Shared decision making: As above Code status: N/A Assessment/Plan AP (abdominal pain) (R10.9: Unspecified abdominal pain) Orders: dicyclomine, 10 mg = 1 cap(s), Oral, QID, X 7 day(s), # 28 cap(s), Refills(s) 0, Pharmacy: [id number], 173, cm, 02/14/23 2:34:00 EST, Height/Length Dosing, 119.3, kg, 02/14/23 2:34:00 EST, Weight Dosing famotidine, 20 mg = 1 tab(s), Oral, Daily, X 7 day(s), # 7 tab(s), Refills(s) 0, Pharmacy: [id number], 173, cm, 02/14/23 2:34:00 EST, Height/Length Dosing, 119.3, kg, 02/14/23 2:34:00 EST, Weight Dosing HYDROmorphone, 0.5 mg = 0.5 mL, Injection, IV Push, Once, Stop date 02/14/23 3:41:00 EST, STAT, Start date 02/14/23 3:41:00 EST, 02/14/23 3:41:00 EST ketorolac, 15 mg = 1 mL, Injection, IV Push, Once, Stop date 02/14/23 2:39:00 EST, STAT, Start date 02/14/23 2:39:00 EST, 02/14/23 2:39:00 EST morphine, 4 mg = 1 mL, Injection, IV Push, Once, Stop date 02/14/23 3:12:00 EST, STAT, Start date 02/14/23 3:12:00 EST, 02/14/23 3:12:00 EST Sodium Chloride 0.9% intravenous solution, 1,000 mL, Soln-IV, IV, Once, Stop date 02/14/23 2:39:00 EST, STAT, Start date 02/14/23 2:39:00 EST, Infuse over 61, minute(s) Automated Diff Basic Metabolic Panel Beta hCG Qual CBC w/ Auto Diff CT Abdomen/Pelvis w/ Contrast eGFR Extra Blue Tube Hepatic Function Panel Lipase Level Saline Lock Insert UA With Cult Reflex Urine Culture Medications Administered Given HYDROmorphone 1 mg/mL injectable solution, 0.5 mg, IV Push ketorolac 15 mg/mL Inj, 15 mg, IV Push morphine 4 mg/mL Inj, 4 mg, IV Push NS 1000 ml Bolus, 1000 mL, IV Disposition Plan Discharge Prescription List Prescriptions Bentyl 10 mg Cap, 10 mg= 1 cap(s (more content not included)... Normal [facility] Comment on above: Result Comment: Elec tronically Signed By: Héctor Christianson DO\.br\Date and Time Signed: 02/14/23 06:29 EST ED Patient Education Noteon 02-14-2023 ED Patient Education Note Gastroenterology Abdominal Pain, Adult Pain in the abdomen (abdominal pain) can be caused by many things. Often, abdominal pain is not serious and it gets better with no treatment or by being treated at home. However, sometimes abdominal pain is serious. Your health care provider will ask questions about your medical history and do a physical exam to try to determine the cause of your abdominal pain. Follow these instructions at home: Medicines ? Take zclo-tzl-wzszmbs and prescription medicines only as told by your health care provider. ? Do not take a laxative unless told by your health care provider. General instructions ? Watch your condition for any changes. ? Drink enough fluid to keep your urine pale yellow. ? Keep all follow-up visits as told by your health care provider. This is important. Contact a health care provider if: ? Your abdominal pain changes or gets worse. ? You are not hungry or you lose weight without trying. ? You are constipated or have diarrhea for more than 2?3 days. ? You have pain when you urinate or have a bowel movement. ? Your abdominal pain wakes you up at night. ? Your pain gets worse with meals, after eating, or with certain foods. ? You are vomiting and cannot keep anything down. ? You have a fever. ? You have blood in your urine. Get help right away if: ? Your pain does not go away as soon as your health care provider told you to expect. ? You cannot stop vomiting. ? Your pain is only in areas of the abdomen, such as the right side or the left lower portion of the abdomen. Pain on the right side could be caused by appendicitis. ? You have bloody or black stools, or stools that look like tar. ? You have severe pain, cramping, or bloating in your abdomen. ? You have signs of dehydration, such as: ? Dark urine, very little urine, or no urine. ? Cracked lips. ? Dry mouth. ? Sunken eyes. ? Sleepiness. ? Weakness. ? You have trouble breathing or chest pain. Summary ? Often, abdominal pain is not serious and it gets better with no treatment or by being treated at home. However, sometimes abdominal pain is serious. ? Watch your condition for any changes. ? Take erkr-adu-dobcsfc and prescription medicines only as told by your health care provider. ? Contact a health care provider if your abdominal pain changes or gets worse. ? Get help right away if you have severe pain, cramping, or bloating in your abdomen. This information is not intended to replace advice given to you by your health care provider. Make sure you discuss any questions you have with your health care provider. Document Revised: 04/17/2020 Document Reviewed: 07/08/2019 [employer] Patient Education ? 2022 [employer] Normal [facility] ED Patient Summaryon 023 ED Patient Summary [place] [id number] Patient Discharge Instructions Person Information Name: ADINA MARTINEZ Age: 28 Years Arrival Date: 02/14/2023 02:28:07 Discharge Diagnosis: AP (abdominal pain) Primary Care Physician: Linnea HACKETT PA-C Provider Information Primary Provider: Héctor Christianson DO [employer] Sr Strategy Manager:None The exam and treatment you received in the Emergency Department were for an urgent problem and are not intended as complete care. It is important that you follow up with a doctor, nurse practitioner, or physician?s plant attendant or assistant operator for ongoing care. If your symptoms become worse or you do not improve as expected and you are unable to reach your usual health care provider, you should return to the Emergency Department. We are available 24 hours a day. ADINA MARTINEZ has been given the following list of patient education materials, prescriptions and follow-up instructions: Follow-up Instructions: With: Address: When: Linnea HACKETT [address] [place] [phone] Business (1) In 3 days In the event that this physician does not participate in your insurance network, please consult with your insurance company to find a nearby participating provider. Patient Education Materials: Abdominal Pain, Adult A MESSAGE TO ALL PATIENTS REGARDING OPIOIDS PRESCRIPTION OPIOIDS: WHAT YOU NEED TO KNOW Prescription opioids can be used to help relieve ngjsunri-vb-gkdquq pain and are often prescribed following a [...] unused prescription opioids: Find your community drug take-back program or your pharmacy mail-back program, or flush them down the toilet, following guidance from the Food and Drug Administration (www.fda.gov/Drugs/Re sourcesForYou). ? Visit www.cdc.gov/drugoverd ose to learn about the risks of opioids abuse and overdose. ? If you believe you may be struggling with addiction, tell your health nanny caregiver and ask for guidance or call [facility] National Helpline at 8-757-261-WVEJ. i Source: [place] Department of (more content not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 02/14/2020 03:36 Tiff Mcgill RN Comment: jessica - 11/26/2021 18:17 - Maddi Gomez RN Comment: Denies. - 01/04/2022 00:Maricruz - Kely Luis RN 12/12/2022 Use: Current Frequency: 1-2 times per year Substance Abuse 12/12/2022 Risk Assessment: Denies Substance Abuse Comment: denmary - 02/14/2020 03:36 - Tiff Benoit RN Comment: jessica - 11/26/2021 18:17 - Maddi Gomez RN Comment: Denies. - 01/04/2022 00:Kely Rodriguez RN Tobacco 12/12/2022 Risk Assessment: Denies Tobacco Use 12/12/2022 Tobacco Use: Never (less than 100 in l Smokeless tobacco use: Never . Physical Examination Airway: Mallampati classification: II (soft palate, fauces, uvula visible). Respiratory: adequate air exchange. Cardiovascular: Regular rhythm. Plan [place] [employer]hesi[employer] (ASA) physical status classification: Class II. Anesthetic Preoperative Plan: Anesthesia General. [facility] Comment on above: Result Comment: Elec tronically Signed By: Chapito Holland Jr, DO\.afsaneh\Date and Time Signed: 12/23/22 15:47 EDT Progress Note-Physician Patient: ADINA MARTINEZ Age: 27 years Sex: Female : 1995 Associated Diagnoses: None Author: Chapito Holland Jr, DO Postoperative Information Postoperative disposition: Postoperative disposition: To PACU. Optimetrix number: Optimetrix number [id number]. Anesthetic utilized: General. Health Status Allergies: Allergic Reactions (Selected) Severe Bee Stings- Anaphylaxis. Moderate Raspberry- Rash. Physical Examination Vital Signs 12/22/2022 11:01 EDT Respiratory Rate 20 br/min 12/22/2022 11:01 EDT Temperature Axillary 36.4 DegC 12/22/2022 11:00 EDT Systolic Blood Pressure 141 mmHg HI Diastolic Blood Pressure 91 mmHg HI Blood Pressure Location Right arm Mean Arterial Pressure, Monitered 108 mmHg 12/22/2022 10:13 EDT Heart Rate Monitored 79 bpm SpO2 97 % 12/22/2022 10:12 EDT Systolic Blood Pressure 134 mmHg Diastolic Blood Pressure 80 mmHg Mean Arterial Pressure, Monitered 98 mmHg 12/22/2022 10:12 EDT Temperature Temporal Artery 36.7 DegC Heart Rate Monitored 80 bpm Respiratory Rate 12 br/min LOW Respiratory Rate Monitored 15 br/min Blood Pressure Location Right arm Mean Arterial Pressure, Cuff 98 mmHg SpO2 95 % 12/22/2022 10:05 EDT Temperature Axillary 36.9 DegC HI Heart Rate Monitored 78 bpm Respiratory Rate Monitored 15 br/min Systolic Blood Pressure 122 mmHg Diastolic Blood Pressure 84 mmHg Blood Pressure Location Right arm Mean Arterial Pressure, Cuff 97 mmHg SpO2 95 % Pain Assessment: Controlled. General: Awake, Alert, Appropriate. Respiratory: Adequate air exchange. Cardiovascular: Stable, Normal peripheral perfusion. Neurological: Normal sensory function, Normal motor function. Assessment Anesthetic outcome No anesthetic complications noted. Adequate pain relief. able to void without difficulty, able to ambulate with assist, tolerating PO intake, no N/V. Review / Management Condition: Stable. Plan Transfer/Discharge: Transfer/Discharge Discharge when meets criteria ( To home ). Normal [facility] Comment on above: Result Comment: Elec tronically Signed By: Chapito Holland Jr, DO\.br\Date and Time Signed: 12/23/22 15:46 EDT Capillary Glucose POCon 12-11 Glucose [Mass/Vol] 93 mg/dL Normal 55-99 [facility] Comment on above: Result Comment: Tonia lynn Meter Performed By: #### 2 [id number] #### [facility] [address] [place] [address] Consent for Treatmenton 12-11 Consent for Treatment [id number] Normal [facility] Discharge Instructionson Discharge Instructions ADINA MARTINEZ :1995 Visit Date:12/22/2022 Inpatient Discharge Instructions Your Care Team Admitting Physician - Gabe GODWIN MD Referring Physician - CITLALI VELASQUEZ, Gabe Parsons Reason for Your Visit LIPOMA Procedure History Arthroscopy of knee (12/20/2019), Extraction of wisdom tooth. What to do next Instructions From Your Doctor Event Name Event Result Discharge Instructions Freetext may shower tomorrow, remove dressing tomorrow and leave open to air, no tub baths for 10 days Discharge Activity Resume normal activities in 24 hours, Arrange for a responsible adult supervision for 24 hours Discharge Restrictions No driving for 24 hrs, Do not operate machinery or tools, Do not make important decisions for 24 hours, Do not drink alcoholic beverages for 24 hours Discharge Diet(s) Regular Call Your Doctor For Persistent or heavy bleeding, Temperature above 101.5 degrees, Redness, swelling, or pus at operative site, Severe pain at the operative site, Persistent vomiting Wound Care Keep incision dry, Remove dressing as instructed Remove Dressing On 1 Discharge Instructions Discharge Instructions New Follow Up Appointments after Discharge Follow Up with Gabe GODWIN When: Within 7 to 10 days Where: [facility] [address], [address] [address]- [facility] (1) Medications What How Much When Instructions Next Dose Unchanged albuterol (Albuterol (Eqv-ProAir HFA) 90 mcg/ inh inhalation aerosol) 1 Puffs Inhalation Every 6 hours as needed for Shortness of breath or wheezing Unchanged desogestrel-ethinyl estradiol (Isibloom 0.15 mg-0.03 mg oral tablet) 1 Tablets By Mouth Every day Unchanged fluoxetine (Prozac 10 mg Cap) 1 Capsules By Mouth Every day Unchanged levothyroxine (levothyroxine 137 mcg (0.137 mg) oral capsule) 1 Capsules By Mouth Every day Unchanged metformin (metformin 500 mg ER Tab) 1 Tablets By Mouth Every day Unchanged phentermine (Adipex-P 37.5 mg Tab) 1 Tablets By Mouth Every day Education Materials Lipoma Removal, Care After The following information offers guidance on how to care for yourself after your procedure. Your health care provider may also give you more specific instructions. If you have problems or questions, contact your health care provider. What can I expect after the procedure? After the procedure, it is common to have: ? Mild pain. ? Swelling. ? Bruising. Follow these instructions at home: Bathing ? Do not take baths, swim, or use a hot tub until your health care provider approves. Ask your health care provider if you may take showers. You may only be allowed to take sponge baths. ? Keep your bandage (dressing) clean and dry until your health care provider says it can be removed. Incision care ? Follow instructions from your health care provider about how to take care of your incision. Make sure you: ? Wash your hands with soap and water for at least 20 seconds before and after you change your dressing. If soap and water are not available, use hand ultimate hoops scoreboard operator. ? Change your dressing as told by your health care provider. ? Leave stitches (sutures), skin glue, or adhesive strips in place. These skin closures may need to stay in place for 2 weeks or longer. If adhesive strip edges start to loosen and curl up, you may trim the loose edges. Do not remove adhesive strips completely unless your health care provider tells you to do that. ? Check your incision area every day for signs of infection. Check for: ? More redness, swelling, or pain. ? Fluid or blood. ? Warmth. ? Pus or a bad smell. Medicines ? Take [id number] and prescription medicines only as told by your health care provider. ? If you were prescribed an antibiotic medicine, use it as told by your health care provider. Do not stop using the antibiotic even if you start to feel better. General instructions ? If you were given a sedative during the procedure, it can affect you for several hours. Do not drive or operate machinery until your health care provider says that it is safe. ? Do not use any products that contain nicotine or tobacco before the procedure. These products include cigarettes, chewing tobacco, and vaping devices, such as e-cigarettes. These can delay healing after surgery. If you need help quitting, ask your health care provider. ? Return to your normal activities as told by your health care provider. Ask your health care provider what activities are safe for you. ? Keep all follow-up visits. This is important. Contact a health care provider if: ? You have more redness, swelling, or pain around your incision. ? You have fluid or blood coming from your incision. ? Your incision feels warm to the touch. ? You have pus or a bad smell coming from your incision. ? You have pain philip (more content not included)... Normal [facility] Comment on above: Result Comment: Elec tronically Signed By: Placido DONNELLY, Gordon Grider\.br\Date and Time Signed: 12/22/22 10:15 EDT Inpatient Patient Summaryon 12-22-2022 Inpatient Patient Summary [place] [id number] [facility] Clinical Discharge Instructions PERSON INFORMATION Name: ADINA MARTINEZ PHYSICIANS Admitting Physician: Gabe GODWIN MD Attending Physician: Gabe GODWIN MD PCP: Linnea HACKETT PA-C Discharge Diagnosis: Lipoma of abdominal wall Comment: PATIENT EDUCATION INFORMATION Instructions: Medication Leaflets: Follow up: With: Address: When: Gabe GODWIN [address] [place] [address], [facility] [address], [place] [address] [facility] (1) Within 7 to 10 days MEDICATION LIST Medications to Continue with No Changes Other Medications albuterol (Albuterol (Eqv-ProAir HFA) 90 mcg/inh inhalation aerosol) 1 Puffs Inhalation every 6 hours as needed Shortness of breath or wheezing. desogestrel-ethinyl estradiol (Isibloom 0.15 mg-0.03 mg oral tablet) 1 Tablets By Mouth every day. fluoxetine (Prozac 10 mg Cap) 1 Capsules By Mouth every day. levothyroxine (levothyroxine 137 mcg (0.137 mg) oral capsule) 1 Capsules By Mouth every day. metformin (metformin 500 mg ER Tab) 1 Tablets By Mouth every day., PCOS phentermine (Adipex-P 37.5 mg Tab) 1 Tablets By Mouth every day., PCOS Comment: Normal [facility] Main OR Intraoperative Recor gayatri 12-22-2022 Main OR Intraoperative Record IntraOp Document Type FT Summary Primary Physician: Gabe GODWIN MD Finalized Date/Time: 12/22/22 13:42:37 Pt. Name: ADINA MARTINEZ /Sex: 1995 Female Med Rec #: [id number] Physician: Gabe GODWIN MD Financial #: [id number] Pt. Type: A Room/Bed: [place] [address] Admit/Disch: 12/22/22 06:48:48 - 12/22/22 11:25:00 Institution: Case Times FT Entry 1 Patient Times In Room 12/22/22 08:42:00 Out Room 12/22/22 09:19:00 Procedure Times Start 12/22/22 08:53:00 Stop 12/22/22 09:08:00 Anesthesia Times Start 12/22/22 08:42:00 Stop 12/22/22 09:19:00 Last Modified By: Sarah DONNELLY, Tatianna Warner 12/22/22 09:21:15 General Comments: 12/22/22 Chart oened to review and send charges LRoth CSFA Case Attendance FT Entry 1 Entry 2 Entry 3 Case Attendee Abhilash JORGE, Kemi GODWIN MD, Chapito Casiano Role Performed FUNDS DEVELOPMENT DIRECTOR Surgeon - Primary PSYCHOLOGIST INDUSTRIAL ORGANIZATIONAL/SA Time In 12/22/22 08:42:00 12/22/22 08:42:00 12/22/22 08:42:00 Time Out 12/22/22 09:19:00 12/22/22 09:19:00 12/22/22 09:19:00 Procedure CYST LESION REMOVAL CYST LESION REMOVAL CYST LESION REMOVAL GENERAL ANES(.) GENERAL ANES(.) GENERAL ANES(.) Comments DR. HOLLAND SUPERVISING Last Modified By: Sarah DONNELLY, Tatianna Smith RN, Tatianna Smith RN, Tatianna Warner 12/22/22 Dolly Warner 12/22/22 Dolly Warner 12/22/22 09:21:16 09:21:16 09:21:16 Entry 4 Entry 5 Case Attendee Sarah DONNELLY, Ursula Mckeon Role Performed Reimbursement Analyst - Primary Scrub - Primary Time In 12/22/22 08:42:00 12/22/22 08:42:00 Time Out 12/22/22 09:19:00 12/22/22 09:19:00 Procedure CYST LESION REMOVAL CYST LESION REMOVAL GENERAL ANES(.) GENERAL ANES(.) Comments Last Modified By: Sarah DONNELLY, Tatianna Owens RN 12/22/22 Dolly Warenr 12/22/22 09:21:16 09:21:16 Perioperative Protocols FT Pre-Care Text: Implements protective measures prior to operative or invasive procedure, confirms identity before the operative or invasive procedure, verifies operative procedure, surgical site, and laterality Entry 1 Procedure(s) CYST LESION REMOVAL Patient Identity Birthday, ID Band GENERAL ANES(.) Verified (select at Check, Patient least 2): Participation Consents / H and P Anesthesia Consent, Operative Site Present Verified HandP, Surgery/Procedure Marking Verified Consent Surgical Site Yes Laterality Verified Yes Verified Procedure Verified Yes Correct Patient Yes Position Verified Availability Equipment, Medication Prep Dry n/a Verified (If Applicable) PreOp Antibiotic Yes Time Out Gabe GODWIN MD, Given Participants Kemi Hung CRNA, Boyer, James W, Sarah DONNELLY, Leidy Torres Sydney A Time Out Complete 12/22/22 08:53:00 Outcomes Met? Yes Last Modified By: Tatianna Smith RN 12/22/22 08:56:47 Post-Care Text: The patient is free from signs and symptoms of injury caused by extraneous objects Allergy Information FT Pre-Care Text: Verifies allergies Entry 1 Allergies Reviewed? Yes Allergies Reviewed Self/Patient With Outcomes Met? Yes Last Modified By: Tatianna Smith RN 12/22/22 08:56:51 Post-Care Text: The patient received appropriate medication(s) safely administered during the perioperative period Surgical Procedures FT Entry 1 Procedure Description Procedure CYST LESION REMOVAL Modifiers . GENERAL ANES Surgeon Description RIGHT ABDOMINAL WALL LIPOMA EXCISION Primary Procedure Yes Primary Surgeon Gabe GODWIN MD Start 12/22/22 08:53:00 Stop 12/22/22 09:08:00 Anesthesia Type General Surgical Service General Wound Class 1 - Clean Last Modified By: Tatianna Smith RN 12/22/22 09:08:38 General Case Data FT Pre-Care Text: Classifies surgical wound, implements aseptic technique, initiates traffic control Entry 1 Case Information OR OR 5 FT Case Level Level 2 Wound Class 1 - Clean Specialty General ASA Class 2 Preop Diagnosis ABDOMINAL WALL LIPOMA Postop Same As Preop Yes Postop Diagnosis ABDOMINAL WALL LIPOMA Outcomes Met? Yes Last Modified By: Tatianna Smith RN 12/22/22 08:57:17 Post-Care Text: The patient is free from signs and symptoms of infection Skin Assessment (Pre Procedure) FT Pre-Care Text: Implements protective measures to prevent skin/ tissue injury due to thermal or mechanical sources Evaluates for signs and symptoms of physical injury to skin and tissue Entry 1 Skin Integrity Intact, [place], Warm, and Skin Abnormality No Dry Outcomes Met? Yes Last Modified By: Tatianna Smith RN 12/22/22 08:57:22 Post-Care Text: The patient is free from signs and symptoms of injury caused by extraneous objects Patient Positioning FT Pre-Care Text: Identifies physical alterations that require additional precautions for procedure-specific positioning, verifies presence of prosthetics or corrective devices, positions the patient, evaluates the patient fo (more content not included)... Normal [facility] Main OR PACU I Recordon 12-11 Main OR PACU I Record PACU Phase I Docum ent Type FT Summary Primary Physician: Gabe GODWIN MD Finalized Date/Time: 12/22/22 10:30:05 Pt. Name: ADINA MARTINEZ/Sex: 1995 Female Med Rec #: [id number] Physician: Gabe GODWIN MD Financial #: [id number] Pt. Type: A Room/Bed: [facility] Admit/Disch: 12/22/22 06:48:48 - Institution: Case Times PACU I FT Pre-Care Text: Identifies barriers to communication and implements measures to provide psychological support Develops individualized plan of care, and ensures continuity of care Maintains patient's dignity and privacy, and maintains patient confidentiality Identifies and reports philosophical, cultural, and spiritual beliefs and values Identifies individual values and wishes concerning care Implements aseptic technique, and administers prescribed antibiotic therapy and immunizing agents as ordered Evaluates postoperative tissue perfusion Implements thermoregulation measures, and monitors body temperature Evaluates postoperative respiratory status Evaluates postoperative cardiac status Evaluates postoperative neurological status Assesses pain control, collaborated in initiating patient-controlled analgesia and implements alternative methods of pain control Verifies allergies, administers prescribed medications and solutions, evaluates response to medications Entry 1 In PACU I 12/22/22 09:16:00 Discharge from PACU 12/22/22 10:08:00 I Outcomes Met? Yes Last Modified By: Wendy Solomon RN 12/22/22 10:29:51 Post-Care Text: The patient demonstrates knowledge of the expected response to the operative or invasive procedure The patient's care is consistent with the individualized perioperative plan of care The patient's right to privacy is maintained The patient's value system, lifestyle, ethnicity, and culture are considered, respected, and incorporated into the perioperative plan of care The patient participates in decisions affecting his or her perioperative plan of care The patient is free from signs and symptoms of infection The patient has wound/tissue perfusion consistent with or improved from baseline levels established preoperatively The patient is at or returning to normothermia at the conclusion of the immediate postoperative period The patient's respiratory function is consistent with or improved from baseline levels established preoperatively The patient's cardiovascular status is consistent with or improved from baseline levels established preoperatively The patient's cardiovascular status is consistent with or improved from baseline levels established preoperatively The patient demonstrates and/or reports adequate pain control throughout the perioperative period The patient received appropriate medication(s), safely administered during the perioperative period Acuity Level PACU I FT Entry 1 Start Time 12/22/22 09:16:00 Stop Time 12/22/22 10:08:00 Acuity Level Acuity Level I Last Modified By: Wendy Solomon RN 12/22/22 10:30:02 Finalized By: Wendy Solomon RN Document Signatures Signed By: Wendy Solomon RN 12/22/22 10:30 [facility] Main OR PACU II Recordon Main OR PACU II Record PACU Phase II Document Type FT Summary Primary Physician: Gabe GODWIN MD Finalized Date/Time: 12/22/22 12:44:13 Pt. Name: ADINA MARTINEZ /Sex: 1995 Female Med Rec #: [id number] Physician: Gabe GODWIN MD Financial #: [id number] Pt. Type: A Room/Bed: [place] [address] Admit/Disch: 12/22/22 06:48:48 - Institution: Case Times PACU II FT Pre-Care Text: Identifies barriers to communication and implements measures to provide psychological support and determines knowledge level Develops individualized plan of care, and ensures continuity of care Maintains patient's dignity and privacy, and maintains patient confidentiality Identifies and reports philosophical, cultural, and spiritual beliefs and values Identifies individual values and wishes concerning care administers prescribed antibiotic therapy and immunizing agents as ordered, Evaluates postoperative tissue perfusion Implements thermoregulation measures, and monitors body temperature Evaluates postoperative respiratory status Evaluates postoperative cardiac status Evaluates postoperative neurological status Assesses pain control, collaborated in initiating patient-controlled analgesia and implements alternative methods of pain control Verifies allergies, administers prescribed medications and solutions, evaluates response to medications Entry 1 In PACU II 12/22/22 10:10:00 Discharge from PACU 12/22/22 11:25:00 II Outcomes Met? Yes Last Modified By: Geraldine Ivan LPN 12/22/22 12:44:05 Post-Care Text: The patient demonstrates knowledge of the expected response to the operative or invasive procedure The patient's care is consistent with the individualized perioperative plan of care The patient's right to privacy is maintained The patient's value system, lifestyle, ethnicity, and culture are considered, respected, and incorporated into the perioperative plan of care The patient participates in decisions affecting his or her perioperative plan of care. The patient is free from signs and symptoms of infection The patient has wound/tissue perfusion consistent with or improved from baseline levels established preoperatively The patient is at or returning to normothermia at the conclusion of the immediate postoperative period The patient's respiratory function is consistent with or improved from baseline levels established preoperatively The patient's cardiovascular status is consistent with or improved from baseline levels established preoperatively The patient's neurological status is consistent with or improved from baseline levels established preoperatively The patient demonstrates and/or reports adequate pain control throughout the perioperative period The patient received appropriate medication(s), safely administered during the perioperative period Finalized By: Geraldine Ivan LPN Document Signatures Signed By: Geraldine Ivan LPN 12/22/22 12:44 Geraldine Ivan LPN 12/22/22 12:44 Normal [facility] Main OR Preoperative Recordo n 12-22-2022 Main OR Preoperative Record PreOp Document Type FT Summary Primary Physician: Gabe GODWIN MD Finalized Date/Time: 12/22/22 08:59:46 Pt. Name: ADINA MARTINEZ /Sex: 1995 Female Med Rec #: [id number] Physician: Gabe GODWIN MD Financial #: [id number] Pt. Type: A Room/Bed: [facility] Admit/Disch: 12/22/22 06:48:48 - Institution: Case Times PreOp FT Pre-Care Text: Verifies consent for planned procedure, identifies individual values and wishes concerning care, includes family members in perioperative teaching Entry 1 Patient Times. In Pre Surgery 12/22/22 06:55:00 Out Pre Surgery 12/22/22 08:40:00 Outcomes Met? Yes Last Modified By: Tatianna Smith RN 12/22/22 08:59:45 Post-Care Text: The patient participates in decisions affecting his or her perioperative plan of care Finalized By: Tatianna Smith RN Document Signatures Signed By: Tatianna Smith RN 12/22/22 08:59 Normal [facility] Monitor Recordon 12-22-2022 Monitor Record [id number] Normal [facility] Outpatient Surgery Discharge Instructionon 12-22-2022 Outpatient Surgery Discharge Instruction [address] [address] Patient Discharge Instructions PERSON INFORMATION Name: ADINA MARTINEZ Date of : 1995 Current Date: 12/22/2022 09:19:15 PHYSICIANS Admitting Physician: Gabe GODWIN MD Discharge Diagnosis: Lipoma of abdominal wall ADINA MARTINEZ has been given the following list of follow-up instructions, prescriptions, and patient education materials: PATIENT FOLLOW-UP INFORMATION Diet: Regular Discharge Activity: Resume normal activities in 24 hours, Arrange for a responsible adult supervision for 24 hours Discharge Restrictions: No driving for 24 hrs, Do not operate machinery or tools, Do not make important decisions for 24 hours, Do not drink alcoholic beverages for 24 hours Call Your Doctor For: Persistent or heavy bleeding, Temperature above 101.5 degrees, Redness, swelling, or pus at operative site, Severe pain at the operative site, Persistent vomiting Wound Care Instructions: Keep incision dry, Remove dressing as instructed Remove Your Dressing In 1 Days Additional Instructions: may shower tomorrow, remove dressing and leave open to air, no tub baths for 10 days IF UNABLE TO CONTACT YOUR PHYSICIAN AND YOU FEEL IT IS AN EMERGENCY, GO TO THE NEAREST EMERGENCY ROOM OR CALL 911 JUAN Cruz OLIVIA PAIGE, have received the attached patient education materials/instruction s and have verbalized understanding: May we do a follow up call? Yes No I was present when discharge instructions were given Patient Signature Date Clinican/Nurse Signature Date Follow up: With: Address: When: [address], [address], [place] [address] [facility] (1) Within 7 to 10 days Pharmacy Information: You may receive a survey from [employer] asking you to rate your care experience. Your feedback is important and will help us understand what we do well and how we can improve the quality of care we provide to you, your loved ones and our community. It?s an honor to serve you. Thank you for choosing [facility] HERE ARE THE MEDICATION CHANGES THAT OCCURRED DURING YOUR HOSPITAL STAY Medications to Continue with No Changes Other Medications albuterol (Albuterol (Eqv-ProAir HFA) 90 mcg/inh inhalation aerosol) 1 Puffs Inhalation every 6 hours as needed Shortness of breath or wheezing. desogestrel-ethinyl estradiol (Isibloom 0.15 mg-0.03 mg oral tablet) 1 Tablets By Mouth every day. fluoxetine (Prozac 10 mg Cap) 1 Capsules By Mouth every day. levothyroxine (levothyroxine 137 mcg (0.137 mg) oral capsule) 1 Capsules By Mouth every day. metformin (metformin 500 mg ER Tab) 1 Tablets By Mouth every day., PCOS phentermine (Adipex-P 37.5 mg Tab) 1 Tablets By Mouth every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 [facility] Platelets Auto (Bld) [#/Vol] Ordered By: Black Zaidi on 10-29-2021 Platelets (Bld) [#/Vol] 320 10*3/uL 150-450 [facility] Protein [Mass/volume] in Ser um or PlasmaOrdered By: Black Zaidi on 10-29-2021 Protein [Mass/Vol] 6.5 g/dL 6.1-7.9 [facility] RBC Auto (Bld) [#/Vol]Ordere d By: Black Zaidi on 10-29-2021 RBC (Bld) [#/Vol] 4.26 10*6/uL 3.60-5.00 [facility] Serum or plasma alanine ellis otransferase measurement without P-5'-P (enzymatic activiOrdered By: Black Zaidi on 10-29-2021 ALT No additional P-5'-P [Catalytic activity/Vol] 20 U/L 10-60 [facility] Serum or plasma albumin/glob ulin mass ratioOrdered By: Black Zaidi on 10-29-2021 Albumin/Globulin [Mass ratio] 1.4 {ratio} [facility] Serum or plasma alkaline niru sphatase measurement (enzymatic activity/volume)Ordered By: Black Zaidi on 10-29-2021 ALP [Catalytic activity/Vol] 64 U/L 32-92 [facility] Serum or plasma aspartate am inotransferase measurement (enzymatic activity/volume)Ordered By: Black Zaidi on 10-29-2021 AST [Catalytic activity/Vol] 20 U/L 10-42 [facility] Serum or plasma calcium ian urement (mass/volume)Ordered By: Black Zaidi on 10-29-2021 Calcium [Mass/Vol] 9.4 mg/dL 8.2-10.2 [facility] Serum or plasma chloride harika surement (moles/volume)Ordered By: Black Zaidi on 10-29-2021 Chloride [Moles/Vol] 104 mmol/L 95-114 [facility] Serum or plasma high density lipoprotein (HDL) cholesterol measurementOrdered By: Black Zaidi on 10-29-2021 Cholesterol in HDL [Mass/Vol] 40 mg/dL 35-85 [facility] Comment on above: HDL CHOL ATP-III CLA SSIFICATION Cardiovascular Risk HDL > or equal to 60 mg/dL LOW HDL < 40 mg/dL HIGH Serum or plasma potassium me asurement (moles/volume)Ordered By: Black Zaidi on 10-29-2021 Potassium [Moles/Vol] 4.2 mmol/L 3.5-5.1 [facility] Serum or plasma sodium measu rement (moles/volume)Ordered By: Black Zaidi on 10-29-2021 Sodium [Moles/Vol] 137 mmol/L 136-146 [facility] Serum or plasma total biliru bin measurement (mass/volume)Ordered By: Black Zaidi on 10-29-2021 Bilirubin [Mass/Vol] 0.3 mg/dL 0.3-1.2 [facility] Serum or plasma total carbon dioxide measurement (moles/volume)Ordered By: Black Zaidi on 10-29-2021 CO2 [Moles/Vol] 22.5 mmol/L 22.0-30.0 [facility] Serum or plasma total choles terol/high density lipoprotein (HDL) cholesterol mass ratOrdered By: Black Zaidi on 10-29-2021 Cholesterol.total/Ioana sterol in HDL [Mass ratio] 3.8 {ratio} <5.0 [facility] Serum or plasma urea nitroge n measurement (mass/volume)Ordered By: Black Zaidi on 10-29-2021 Urea nitrogen [Mass/Vol] 10 mg/dL 12-03 [facility] TSH DL <= 0.005 mIU/L QnOrde red By: Black Zaidi on 10-29-2021 TSH Qn 6.15 m[IU]/L 0.45-5.33 [facility] Free T4on 07-08-2021 Free T4 [Mass/Vol] 0.95 ng/dL Normal 0.80-1.80 [facility] [employer] Comment on above: Performed By: #### F T4, TSH reflex FT4 #### [facility] [address], [place] [id number] TSH w/ Reflex to Free T4on 0 07-08-2021 FT4 reflex Free T4 Normal [facility] [employer] Comment on above: Performed By: #### F T4, TSH reflex FT4 #### [facility] [address], [place] [id number] TSH 4.690 uIU/mL High 0.400-4.500 [facility] [employer] Comment on above: Performed By: #### F T4, TSH reflex FT4 #### [facility] [address], [place] [id number] US PELVIS AND TRANSVAGon US PELVIS AND TRANSVAG EXAMINATION: US PELVIS AND TRANSVAG HISTORY: Excessive and frequent menstruation COMPARISON: No relevant comparison available. TECHNIQUE: Transabdominal and transvaginal sonographic examination. FINDINGS: UTERUS: Normal size and appearance. Uterus size: 9.4 x 6.6 x 4.9 cm ENDOMETRIUM: Normal homogeneous appearance. Endometrial thickness: 7 mm RIGHT OVARY: Normal size and appearance. Blood flow present within ovary on color Doppler. Ovary size: 3.5 x 1.7 x 1.5 cm LEFT OVARY: Contains a 2.8 cm benign-appearing cyst. Duplex Doppler demonstrates normal waveform and flow; resistive index 0.53. Ovary size: 3.5 x 3.0 x 2.4 cm CUL-DE-SAC: Unremarkable. No significant free fluid. BLADDER: Unremarkable. OTHER: None. IMPRESSION: 1. No suspicious findings to account for the patient's symptoms. Electronically authenticated by: RICK OVIEDO Date: 2020-11-12 13:48 Normal [facility] Vital Signs Date Time Vital Sign Value Performing Clinician Facility 10-23-2024 15:19-0400 Body mass index (BMI) [Ratio] 43.14 kg/m2 [employer] Work Phone: [facility] 10-23-2024 15:19-0400 Body weight 128.71 kg [employer] Work Phone: [facility] 10-23-2024 15:19-0400 Diastolic blood pressure 70 mm[Hg] [employer] Work Phone: [facility] 10-23-2024 15:19-0400 Systolic blood pressure 108 mm[Hg] [employer] Work Phone: [facility] 10-14-2024 12:05-0400 Body height 172.7 cm Linnea Hackett PA Work Phone: [facility] 10-14-2024 12:05-0400 Body mass index (BMI) [Ratio] 42.42 kg/m2 Linnea Hackett PA Work Phone: [facility] 10-14-2024 12:05-0400 Body temperature 97.7 [degF] Linnea Hackett PA Work Phone: [facility] 10-14-2024 12:05-0400 Body weight 126.55 kg Linnea Hackett PA Work Phone: [facility] 10-14-2024 12:05-0400 Diastolic blood pressure 82 mm[Hg] Linnea Hackett PA Work Phone: [facility] 10-14-2024 12:05-0400 Heart rate 84 /min Linnea Hackett PA Work Phone: [facility] 10-14-2024 12:05-0400 SaO2% (BldA) [Mass fraction] 99 % Linnea WEBSTER Work Phone: [facility] 10-14-2024 12:05-0400 Systolic blood pressure 118 mm[Hg] Linnea WEBSTER Work Phone: [facility] 09-12-2024 08:51-0400 Body height 172.7 cm Quique Vazquez MD Work Phone: [facility] 09-12-2024 08:51-0400 Body mass index (BMI) [Ratio] 42.12 kg/m2 Quique Vazquez MD Work Phone: [facility] 09-12-2024 08:51-0400 Body weight 125.65 kg Quique Vazquez MD Work Phone: [facility] 09-12-2024 08:51-0400 Diastolic blood pressure 72 mm[Hg] Quique Vazquez MD Work Phone: [facility] 09-12-2024 08:51-0400 Heart rate 72 /min Quique Vazquez MD Work Phone: [facility] 09-12-2024 08:51-0400 Systolic blood pressure 132 mm[Hg] Quique Vazquez MD Work Phone: [facility] 08-29-2024 12:05-0400 Diastolic blood pressure 77 mm[Hg] Bobo Parson MD Work Phone: [facility] 08-29-2024 12:05-0400 Heart rate 77 /min Bobo Parson MD Work Phone: [facility] 08-29-2024 12:05-0400 Respiratory rate 16 /min Bobo Parson MD Work Phone: [facility] 08-29-2024 12:05-0400 SaO2% (BldA) [Mass fraction] 99 % Bobo Parson MD Work Phone: [facility] 08-29-2024 12:05-0400 Systolic blood pressure 128 mm[Hg] Bobo Parson MD Work Phone: [facility] 08-29-2024 11:00-0400 Body height 172.7 cm Bobo Parson MD Work Phone: [facility] 08-29-2024 11:00-0400 Body mass index (BMI) [Ratio] 41.66 kg/m2 Bobo Parson MD Work Phone: [facility] 08-29-2024 11:00-0400 Body weight 124.29 kg Bobo Parson MD Work Phone: [facility] 08-28-2024 10:49-0400 SaO2% (BldA) [Mass fraction] 99 % Linnea Hackett PA-C Work Phone: [facility] 07-10-2024 07:44-0400 Body height 172.[address] 07-10-2024 07:44-0400 Body mass index (BMI) [Ratio] 43.49 kg/m2 [address] 07-10-2024 07:44-0400 Body weight 129.[address] 07-10-2024 07:44-0400 Diastolic blood pressure 82 mm[Hg] [address] 07-10-2024 07:44-0400 Systolic blood pressure 114 mm[Hg] [address] 07-08-2024 10:54-0400 Body height 172.7 cm Linnea WEBSTER Work Phone: [facility] 07-08-2024 10:54-0400 Body mass index (BMI) [Ratio] 41.54 kg/m2 Linnea WEBSTER Work Phone: [facility] 07-08-2024 10:54-0400 Body temperature 98.01 [degF] Linnea WEBSTER Work Phone: [facility] 07-08-2024 10:54-0400 Body weight 123.92 kg Linnea WEBSTER Work Phone: [facility] 07-08-2024 10:54-0400 Diastolic blood pressure 82 mm[Hg] Linnea Hackett PA Work Phone: [facility] 07-08-2024 10:54-0400 Heart rate 83 /min Linnea Hackett PA Work Phone: [facility] 07-08-2024 10:54-0400 SaO2% (BldA) [Mass fraction] 98 % Linnea Hackett PA Work Phone: [facility] 07-08-2024 10:54-0400 Systolic blood pressure 124 mm[Hg] Linnea Hackett PA Work Phone: [facility] 05-08-2024 09:42-0500 Diastolic blood pressure 82 mm[Hg] Quique Vazquez MD Work Phone: [facility] 05-08-2024 09:42-0500 Systolic blood pressure 118 mm[Hg] Quique Vazquez MD Work Phone: [facility] 05-08-2024 09:36-0500 Body height 172.7 cm Quique Vazquez MD Work Phone: [facility] 05-08-2024 09:36-0500 Body mass index (BMI) [Ratio] 43.49 kg/m2 Quique Vazquez MD Work Phone: [facility] 05-08-2024 09:36-0500 Body weight 129.73 kg Quique Vazquez MD Work Phone: [facility] 05-08-2024 09:36-0500 Heart rate 79 /min Quique Vazquez MD Work Phone: [facility] 04-16-2024 09:59-0500 Body height 172.7 cm Linnea Hackett PA Work Phone: [facility] 04-16-2024 09:59-0500 Body mass index (BMI) [Ratio] 43.12 kg/m2 Linnea WEBSTER Work Phone: [facility] 04-16-2024 09:59-0500 Body temperature 98.4 [degF] Linnea Roxann PA Work Phone: [facility] 04-16-2024 09:59-0500 Body weight 128.64 kg Linnea Roxann PA Work Phone: [facility] 04-16-2024 09:59-0500 Diastolic blood pressure 78 mm[Hg] Linnea Roxann PA Work Phone: [facility] 04-16-2024 09:59-0500 Heart rate 80 /min Linnea Roxann PA Work Phone: [facility] 04-16-2024 09:59-0500 SaO2% (BldA) [Mass fraction] 99 % Linnea Roxann PA Work Phone: [facility] 04-16-2024 09:59-0500 Systolic blood pressure 114 mm[Hg] Linnea Roxann PA Work Phone: [facility] 01-18-2024 08:17-0500 Body height 172.7 cm Linnea Roxann PA Work Phone: [facility] 01-18-2024 08:17-0500 Body mass index (BMI) [Ratio] 42.06 kg/m2 Linnea Roxann PA Work Phone: [facility] 01-18-2024 08:17-0500 Body temperature 97.7 [degF] Linnea Roxann PA Work Phone: [facility] 01-18-2024 08:17-0500 Body weight 125.47 kg Linnea Roxann PA Work Phone: [facility] 01-18-2024 08:17-0500 Diastolic blood pressure 82 mm[Hg] Linnea Roxann PA Work Phone: [facility] 01-18-2024 08:17-0500 Heart rate 78 /min Linnea Roxann PA Work Phone: [facility] 01-18-2024 08:17-0500 SaO2% (BldA) [Mass fraction] 98 % Linnea Hackett PA Work Phone: [facility] 01-18-2024 08:17-0500 Systolic blood pressure 118 mm[Hg] Linnea Hackett PA Work Phone: [facility] 01-08-2024 11:17-0400 Body height 172.7 cm Linnea Hackett PA Work Phone: [facility] 01-08-2024 11:17-0400 Body mass index (BMI) [Ratio] 42.45 kg/m2 Linnea Hackett PA Work Phone: [facility] 01-08-2024 11:17-0400 Body temperature 98.6 [degF] Linnea Hackett PA Work Phone: [facility] 01-08-2024 11:17-0400 Body weight 126.64 kg Linnea Hackett PA Work Phone: [facility] 01-08-2024 11:17-0400 Diastolic blood pressure 78 mm[Hg] Linnea Hackett PA Work Phone: [facility] 01-08-2024 11:17-0400 Heart rate 87 /min Linnea Hackett PA Work Phone: [facility] 01-08-2024 11:17-0400 SaO2% (BldA) [Mass fraction] 97 % Linnea Hackett PA Work Phone: [facility] 01-08-2024 11:17-0400 Systolic blood pressure 124 mm[Hg] Linnea Hackett PA Work Phone: [facility] 12-06-2023 18:32-0400 Hourly Rounding Cliff Gusman [facility] 12-06-2023 18:31-0400 Diastolic blood pressure 76 mm[Hg] Cliff Gusman [facility] 12-06-2023 18:31-0400 Heart rate 75 /min Cliff Naseem [facility] 12-06-2023 18:31-0400 Mean blood pressure 91 mm[Hg] Cliff Naseem [facility] 12-06-2023 18:31-0400 Respiratory rate 22 /min Cliff Naseem [facility] 12-06-2023 18:31-0400 SaO2% (BldA) [Mass fraction] 99 % Cliff Naseem [facility] 12-06-2023 18:31-0400 Systolic blood pressure 121 mm[Hg] Cliff Naseem [facility] 12-06-2023 17:45-0400 Diastolic blood pressure 76 mm[Hg] Cliff Naseem [facility] 12-06-2023 17:45-0400 Heart rate 83 /min Cliff Naseem [facility] 12-06-2023 17:45-0400 Hourly Rounding Cliff Naseem [facility] 12-06-2023 17:45-0400 Mean blood pressure 90 mm[Hg] Cliff Naseem [facility] 12-06-2023 17:45-0400 Respiratory rate 18 /min Cliff Naseem [facility] 12-06-2023 17:45-0400 SaO2% (BldA) [Mass fraction] 99 % Cliff Naseem [facility] 12-06-2023 17:45-0400 Systolic blood pressure 119 mm[Hg] Cliff Naseem [facility] 12-06-2023 16:45-0400 Diastolic blood pressure 98 mm[Hg] Cliff Naseem [facility] 12-06-2023 16:45-0400 Heart rate 93 /min Cliff Naseem [facility] 12-06-2023 16:45-0400 Hourly Rounding Cliff Naseem [facility] 12-06-2023 16:45-0400 Mean blood pressure 104 mm[Hg] Cliff Naseem [facility] 12-06-2023 16:45-0400 Promise to Return Cliff Naseem [facility] 12-06-2023 16:45-0400 Respiratory rate 16 /min Cliff Naseem [facility] 12-06-2023 16:45-0400 SaO2% (BldA) [Mass fraction] 99 % Cliff Naseem [facility] 12-06-2023 16:45-0400 Systolic blood pressure 116 mm[Hg] Cliff Naseem [facility] 12-06-2023 16:43-0400 Respiratory rate 20 /min Cliff Naseem [facility] 12-06-2023 16:34-0400 Respiratory rate 20 /min Cliff Naseem [facility] 12-06-2023 15:46-0400 Body temperature 97.88 [degF] Cliff Naseem [facility] 12-06-2023 15:46-0400 Heart rate 90 /min Cliff Naseem [facility] 12-06-2023 15:46-0400 Respiratory rate 22 /min Cliff Naseem [facility] 10-13-2023 08:26-0400 Heart rate 116 /min Santos Booker [facility] 10-13-2023 08:26-0400 Respiratory rate 18 /min Santos Booker [facility] 10-13-2023 07:43-0400 Body temperature 98.24 [degF] Santos Booker [facility] 10-13-2023 07:43-0400 Diastolic blood pressure 93 mm[Hg] Santos Booker [facility] 10-13-2023 07:43-0400 Heart rate 116 /min Santos Booker [facility] 10-13-2023 07:43-0400 Respiratory rate 18 /min Santos Booker [facility] 10-13-2023 07:43-0400 SaO2% (BldA) [Mass fraction] 97 % Santos Booker [facility] 10-13-2023 07:43-0400 Systolic blood pressure 146 mm[Hg] Santos Booker [facility] 09-04-2023 07:58-0400 Blood Pressure Location Magdi Duong [facility] 09-04-2023 07:58-0400 Diastolic blood pressure 88 mm[Hg] Didipietro Ad [facility] 09-04-2023 07:58-0400 Heart rate 96 /min Magdi Ad [facility] 09-04-2023 07:58-0400 Respiratory rate 16 /min Magdi Ad [facility] 09-04-2023 07:58-0400 SaO2% (BldA) [Mass fraction] 99 % Magdi Ad [facility] 09-04-2023 07:58-0400 Systolic blood pressure 130 mm[Hg] Magdi Ad [facility] 05-26-2023 01:32-0400 Hourly Rounding Kaylinn Dokken [facility] 05-26-2023 01:32-0400 Promise to Return Kaylinn Dokken [facility] 05-26-2023 01:00-0400 Diastolic blood pressure 85 mm[Hg] Kaylinn Dokken [facility] 05-26-2023 01:00-0400 Heart rate 71 /min Kaylinn Dokken [facility] 05-26-2023 01:00-0400 Respiratory rate 18 /min Kaylinn Dokken [facility] 05-26-2023 01:00-0400 SaO2% (BldA) [Mass fraction] 98 % Kaylinn Dokken [facility] 05-26-2023 01:00-0400 Systolic blood pressure 132 mm[Hg] Kaylinn Dokken [facility] 05-26-2023 00:00-0400 Heart rate 76 /min Kaylinn Dokken [facility] 05-26-2023 00:00-0400 Hourly Rounding Kaylinn Dokken [facility] 05-26-2023 00:00-0400 Promise to Return Kaylinn Dokken [facility] 05-26-2023 00:00-0400 Systolic blood pressure 142 mm[Hg] Kaylinn Dokken [facility] 05-25-2023 23:44-0400 Diastolic blood pressure 90 mm[Hg] Kaylinn Dokken [facility] 05-25-2023 23:44-0400 Heart rate 86 /min Janellinn Dokken [facility] 05-25-2023 23:44-0400 Mean blood pressure 110 mm[Hg] Sandraylinn Dokken [facility] 05-25-2023 23:44-0400 Respiratory rate 20 /min Janellinn Dokken [facility] 05-25-2023 23:44-0400 SaO2% (BldA) [Mass fraction] 99 % Janellinn Dokken [facility] 05-25-2023 23:44-0400 Systolic blood pressure 150 mm[Hg] Janellinn Dokken [facility] 05-25-2023 22:41-0400 Body temperature 98.06 [degF] Tarynn kken [facility] 05-25-2023 22:41-0400 Heart rate 99 /min Tarynn Dokken [facility] 04-06-2023 15:56-0500 Diastolic blood pressure 80 mm[Hg] PA-C Linnea Roxann Work Phone: [facility] 04-06-2023 15:56-0500 Heart rate 91 /min PA-C Linnea Roxann Work Phone: [facility] 04-06-2023 15:56-0500 Respiratory rate 16 /min PA-C Linnea Roxann Work Phone: [facility] 04-06-2023 15:56-0500 SaO2% (BldA) [Mass fraction] 96 % PA-C Linnea Roxann Work Phone: [facility] 04-06-2023 15:56-0500 Systolic blood pressure 123 mm[Hg] PA-C Linnea Hackett Work Phone: [facility] 04-06-2023 15:06-0500 Body temperature 98 [degF] PA-C Linnea Hackett Work Phone: [facility] 04-06-2023 14:31-0500 Inhaled oxygen flow rate 10 L/min PA-C Linnea Hackett Work Phone: [facility] 04-06-2023 12:40-0500 Body height 172.72 cm PA-C Linnea Hackett Work Phone: [facility] 04-06-2023 12:40-0500 Body mass index (BMI) [Ratio] 41.2 kg/m2 PA-C Linnea Hackett Work Phone: [facility] 04-06-2023 12:40-0500 Body weight 123 kg PA-C Linnea Hackett Work Phone: [facility] 02-14-2023 06:30-0500 Diastolic blood pressure 74 mm[Hg] Héctor Meghan [facility] 02-14-2023 06:30-0500 Heart rate 69 /min Héctor Meghan [facility] 02-14-2023 06:30-0500 Mean blood pressure 91 mm[Hg] Héctor Meghan [facility] 02-14-2023 06:30-0500 SaO2% (BldA) [Mass fraction] 98 % Héctor Meghan [facility] 02-14-2023 06:30-0500 Systolic blood pressure 126 mm[Hg] Héctor Meghan [facility] 02-14-2023 06:00-0500 Diastolic blood pressure 83 mm[Hg] Héctor Meghan [facility] 02-14-2023 06:00-0500 Heart rate 68 /min Héctor Meghan [facility] 02-14-2023 06:00-0500 Mean blood pressure 99 mm[Hg] Héctor Meghan [facility] 02-14-2023 06:00-0500 SaO2% (BldA) [Mass fraction] 100 % Héctor Meghan [facility] 02-14-2023 06:00-0500 Systolic blood pressure 132 mm[Hg] Héctor Meghan [facility] 02-14-2023 05:00-0500 Diastolic blood pressure 76 mm[Hg] Héctor Meghan [facility] 02-14-2023 05:00-0500 Heart rate 85 /min Héctor Meghan [facility] 02-14-2023 05:00-0500 Mean blood pressure 90 mm[Hg] Héctor Meghan [facility] 02-14-2023 05:00-0500 Respiratory rate 17 /min Héctor Meghan [facility] 02-14-2023 05:00-0500 Systolic blood pressure 118 mm[Hg] Héctor Meghan [facility] 02-14-2023 02:30-0500 Body temperature 98.78 [degF] Héctor Meghan [facility] 02-14-2023 02:30-0500 Heart rate 94 /min Héctor Meghan [facility] 02-14-2023 02:30-0500 Respiratory rate 16 /min Héctor Meghan [facility] 02-03-2023 07:56-0500 Body height 169.9 cm Jacqueline Sharma MD Work Phone: [facility] 02-03-2023 07:56-0500 Body temperature 96.8 [degF] Jacqueline Sharma MD Work Phone: [facility] 02-03-2023 07:56-0500 Body weight 118.62 kg Jacqueline Sharma MD Work Phone: [facility] 02-03-2023 07:56-0500 Diastolic blood pressure 78 mm[Hg] Jacqueline Sharma MD Work Phone: [facility] 02-03-2023 07:56-0500 Heart rate 111 /min Jacqueline Sharma MD Work Phone: [facility] 02-03-2023 07:56-0500 Respiratory rate 20 /min Jacqueline Sharma MD Work Phone: [facility] 02-03-2023 07:56-0500 SaO2% (BldA) [Mass fraction] 98 % Jacqueline Sharma MD Work Phone: [facility] 02-03-2023 07:56-0500 Systolic blood pressure 145 mm[Hg] Jacqueline Sharma MD Work Phone: [facility] 12-26-2022 18:04-0400 Diastolic blood pressure 95 mm[Hg] Santos Booker [facility] 12-26-2022 18:04-0400 Heart rate 112 /min Santos [facility] [facility] 12-26-2022 18:04-0400 Mean blood pressure 111 mm[Hg] Santos Booker [facility] 12-26-2022 18:04-0400 Respiratory rate 18 /min Santos Galee [facility] 12-26-2022 18:04-0400 SaO2% (BldA) [Mass fraction] 99 % Santos Jhony [facility] 12-26-2022 18:04-0400 Systolic blood pressure 144 mm[Hg] Santos Jhony [facility] 12-26-2022 17:42-0400 Diastolic blood pressure 96 mm[Hg] Santos Jhony [facility] 12-26-2022 17:42-0400 Heart rate 106 /min Santos Jhony [facility] 12-26-2022 17:42-0400 Mean blood pressure 112 mm[Hg] Santos Jhony [facility] 12-26-2022 17:42-0400 Respiratory rate 18 /min Santos Jhony [facility] 12-26-2022 17:42-0400 SaO2% (BldA) [Mass fraction] 99 % Santos Jhony [facility] 12-26-2022 17:42-0400 Systolic blood pressure 144 mm[Hg] Santos Jhony [facility] 12-26-2022 16:56-0400 Diastolic blood pressure 96 mm[Hg] Santos Jhony [facility] 12-26-2022 16:56-0400 Heart rate 105 /min Santos Jhony [facility] 12-26-2022 16:56-0400 Mean blood pressure 111 mm[Hg] Santos Jhony [facility] 12-26-2022 16:56-0400 Respiratory rate 18 /min Santos Jhony [facility] 12-26-2022 16:56-0400 SaO2% (BldA) [Mass fraction] 100 % Santos Jhony [facility] 12-26-2022 16:56-0400 Systolic blood pressure 140 mm[Hg] Santos Booker [facility] 12-26-2022 14:52-0400 Body temperature 98.06 [degF] Santos Booker [facility] 12-26-2022 14:52-0400 Heart rate 135 /min Santos Booker [facility] 12-26-2022 14:52-0400 Respiratory rate 20 /min Santos Booker [facility] 12-09-2022 09:29-0400 Blood Pressure Location Gabe NILL [facility] [place] 12-09-2022 09:29-0400 Diastolic blood pressure 85 mm[Hg] Gabe NILL [facility] [place] 12-09-2022 09:29-0400 Heart rate 89 /min Gabe NILL [facility] [place] 12-09-2022 09:29-0400 Respiratory rate 16 /min Gabe NILL [facility] [place] 12-09-2022 09:29-0400 Systolic blood pressure 121 mm[Hg] Gabe NILL [facility] [place] 10-14-2022 16:30-0400 Body temperature 97.88 [degF] Cliff Gusman [facility] 10-14-2022 16:30-0400 Diastolic blood pressure 102 mm[Hg] Cliff Gusman [facility] 10-14-2022 16:30-0400 Heart rate 106 /min Cliff Gusman [facility] 08-04-2023 16:30-0400 Mean blood pressure 119 mm[Hg] Cliff Gusman [facility] 10-14-2022 16:30-0400 Respiratory rate 18 /min Cliff Gusman [facility] 10-14-2022 16:30-0400 SaO2% (BldA) [Mass fraction] 100 % Cliff Gusman [facility] 10-14-2022 16:30-0400 Systolic blood pressure 153 mm[Hg] Cliff Gusman [facility] 03-22-2022 12:00-0500 Body height 172.72 cm Faby Gusman Other [employer] Other 03-22-2022 12:00-0500 Body mass index (BMI) [Ratio] 41.05 kg/m2 Faby Gusman Other [employer] Other 03-22-2022 12:00-0500 Body temperature 98.5 [degF] Faby Gusman Other [employer] Other 03-22-2022 12:00-0500 Body weight 122.47 kg Faby Gusman Other [employer] Other 03-22-2022 12:00-0500 Diastolic blood pressure 76 mm[Hg] Faby Gusman Other [employer] Other 03-22-2022 12:00-0500 Respiratory rate 20 /min Faby Gusman Other [employer] Other 03-22-2022 12:00-0500 SaO2% (BldA) [Mass fraction] 99 % Faby Gusman Other [employer] Other 03-22-2022 12:00-0500 Systolic blood pressure 119 mm[Hg] Faby Naseem Other [place] [employer] Other 02-22-2022 15:41-0500 Blood Pressure Location Leonardo Bates [facility] 02-22-2022 15:41-0500 Diastolic blood pressure 86 mm[Hg] Leonardo Bates [facility] 02-22-2022 15:41-0500 Heart rate 79 /min Leonardo Bates [facility] 02-22-2022 15:41-0500 Respiratory rate 18 /min Leonardo Bates [facility] 02-22-2022 15:41-0500 SaO2% (BldA) [Mass fraction] 100 % Leonardo Bates [facility] 02-22-2022 15:41-0500 Systolic blood pressure 128 mm[Hg] Leonardo Bates [facility] 01-04-2022 14:00-0400 Hourly Rounding Héctor Meghan [facility] 01-04-2022 14:00-0400 Promise to Return Héctor Meghan [facility] 01-04-2022 02:44-0400 Diastolic blood pressure 80 mm[Hg] Héctor Meghan [facility] 01-04-2022 02:44-0400 Heart rate 71 /min Héctor Meghan [facility] 01-04-2022 02:44-0400 Mean blood pressure 92 mm[Hg] Héctor Meghan [facility] 01-04-2022 02:44-0400 SaO2% (BldA) [Mass fraction] 98 % Héctor Meghan [facility] 01-04-2022 02:44-0400 Systolic blood pressure 117 mm[Hg] Héctor Meghan [facility] 01-04-2022 01:41-0400 Diastolic blood pressure 75 mm[Hg] Héctor Meghan [facility] 01-04-2022 01:41-0400 Heart rate 79 /min Héctor Meghan [facility] 01-04-2022 01:41-0400 Mean blood pressure 89 mm[Hg] Héctor Meghan [facility] 01-04-2022 01:41-0400 SaO2% (BldA) [Mass fraction] 99 % Héctor Meghan [facility] 01-04-2022 01:41-0400 Systolic blood pressure 118 mm[Hg] Héctor Meghan [facility] 01-04-2022 01:00-0400 Hourly Rounding Héctor Meghan [facility] 01-04-2022 01:00-0400 Promise to Return Héctor Meghan [facility] 01-04-2022 00:45-0400 Body temperature 97.52 [degF] Héctor Meghan [facility] 01-04-2022 00:45-0400 Diastolic blood pressure 88 mm[Hg] Héctor Meghan [facility] 01-04-2022 00:45-0400 Heart rate 82 /min Héctor Meghan [facility] 01-04-2022 00:45-0400 Respiratory rate 16 /min Héctor Meghan [facility] 01-04-2022 00:45-0400 SaO2% (BldA) [Mass fraction] 100 % Héctor Christianson [facility] 01-04-2022 00:45-0400 Systolic blood pressure 154 mm[Hg] Héctor Christianson [facility] 11-26-2021 20:34-0400 Diastolic blood pressure 89 mm[Hg] Cliff Gusman [facility] 11-26-2021 20:34-0400 Heart rate 73 /min Cliff Gusman [facility] 11-26-2021 20:34-0400 Respiratory rate 18 /min Cliff Gusman [facility] 11-26-2021 20:34-0400 SaO2% (BldA) [Mass fraction] 100 % Cliff Gusman [facility] 11-26-2021 20:34-0400 Systolic blood pressure 128 mm[Hg] Cliff Gusman [facility] 11-26-2021 19:35-0400 Diastolic blood pressure 84 mm[Hg] Cliff Gusman [facility] 11-26-2021 19:35-0400 Heart rate 72 /min Cliff Gusman [facility] 11-26-2021 19:35-0400 Hourly Rounding Cliff Gusman [facility] 11-26-2021 19:35-0400 Mean blood pressure 99 mm[Hg] Cliff Gusman [facility] 11-26-2021 19:35-0400 Nursing Progress Note Reason Other: Pt back from CT and resting on cart. Denies any needs at this time. Cliff Gusman [facility] 11-26-2021 19:35-0400 Respiratory rate 18 /min Cliff Naseem [facility] 11-26-2021 19:35-0400 SaO2% (BldA) [Mass fraction] 100 % Cliff Naseem [facility] 11-26-2021 19:35-0400 Systolic blood pressure 130 mm[Hg] Cliff Naseem [facility] 11-26-2021 19:08-0400 Diastolic blood pressure 74 mm[Hg] Cliff Naseem [facility] 11-26-2021 19:08-0400 Heart rate 67 /min Cliff Naseem [facility] 11-26-2021 19:08-0400 Mean blood pressure 92 mm[Hg] Cliff Naseem [facility] 11-26-2021 19:08-0400 Respiratory rate 18 /min Cliff Naseem [facility] 11-26-2021 19:08-0400 SaO2% (BldA) [Mass fraction] 97 % Cliff Gusman [facility] 11-26-2021 19:08-0400 Systolic blood pressure 129 mm[Hg] Cliff Gusman [facility] 11-26-2021 18:08-0400 Body temperature 97.88 [degF] Cliff Gusman [facility] 11-26-2021 18:08-0400 Heart rate 82 /min Cliff Naseem [facility] 11-24-2021 23:30-0400 Diastolic blood pressure 61 mm[Hg] Héctor Meghan [facility] 11-24-2021 23:30-0400 Heart rate 71 /min Héctor Meghan [facility] 11-24-2021 23:30-0400 Mean blood pressure 75 mm[Hg] Héctor Meghan [facility] 11-24-2021 23:30-0400 Respiratory rate 22 /min Héctor Meghan [facility] 11-24-2021 23:30-0400 SaO2% (BldA) [Mass fraction] 98 % Héctor Meghan [facility] 11-24-2021 23:30-0400 Systolic blood pressure 104 mm[Hg] Héctor Meghan [facility] 11-24-2021 22:21-0400 Diastolic blood pressure 72 mm[Hg] Héctor Meghan [facility] 11-24-2021 22:21-0400 Heart rate 79 /min Héctor Meghan [facility] 11-24-2021 22:21-0400 Mean blood pressure 86 mm[Hg] Héctor Meghan [facility] 11-24-2021 22:21-0400 Respiratory rate 15 /min Héctor Meghan [facility] 11-24-2021 22:21-0400 SaO2% (BldA) [Mass fraction] 98 % Héctor Meghan [facility] 11-24-2021 22:21-0400 Systolic blood pressure 115 mm[Hg] Héctor Meghan [facility] 11-24-2021 21:32-0400 Body temperature 98.06 [degF] Héctor Meghan [facility] 11-24-2021 21:32-0400 Diastolic blood pressure 94 mm[Hg] Héctor Meghan [facility] 11-24-2021 21:32-0400 Heart rate 86 /min Héctor Walkerner [facility] 11-24-2021 21:32-0400 Respiratory rate 28 /min Héctor Christianson [facility] 11-24-2021 21:32-0400 SaO2% (BldA) [Mass fraction] 98 % Héctor Meghan [facility] 11-24-2021 21:32-0400 Systolic blood pressure 124 mm[Hg] Héctor Meghan [facility] Encounters Encounter Date Encounter Type Care Provider Facility Start: 10-23-2024 End: 10-23-2024 Patient encounter procedure Db Diya DO Work Phone: [facility] Start: 10-23-2024 End: 10-23-2024 Periodic preventive med est patient 18-39 yrs Db Diya DO Work Phone: [facility] Comment on above: Well woman exam with routine gynecological exam; Encounter for weight management; Weight gain Start: 10-23-2024 End: 10-23-2024 Bamboo flowsheet Db Diya DO Work Phone: [facility] Start: 10-23-2024 End: 10-23-2024 Bamboo flowsheet Db Diya DO Work Phone: [facility] Start: 10-14-2024 End: 10-14-2024 Bamboo flowsheet Lninea WEBSTER Work Phone: [facility] Start: 10-14-2024 End: 10-14-2024 Bamboo flowsheet Linnea WEBSTER Work Phone: [facility] Start: 10-14-2024 End: 10-14-2024 Patient encounter status Linnea WEBSTER Work Phone: [facility] Work Phone: Start: 10-14-2024 End: 10-14-2024 Periodic preventive med est patient 18-39 yrs Linnea Hackett PA Work Phone: [facility] [place] [facility] Comment on above: Preventative health care (Primary Dx) Start: 10-14-2024 End: 10-14-2024 ambulatory LINNEA HACKETT Not Available Start: 10-02-2024 End: 10-02-2024 Departed Referred Black Warner DO [facility] Start: 10-02-2024 End: 10-02-2024 ambulatory Linnea JOHNSONC Work Phone: [facility] Work Phone: Start: 09-30-2024 End: 10-01-2024 ambulatory Kimberly Pack [employer] Work Phone: Gastroenterology Comment on above: Next steps Start: 09-24-2024 End: 09-27-2024 Clinisync Result Encounter Generic External Data Provider [facility] External Department Unsolicited Start: 09-24-2024 End: 09-27-2024 Clinisync Result Encounter Generic External Data Provider [facility] External Department Unsolicited Start: 09-24-2024 ambulatory LINNEA HACKETT Facility:[facility] Start: 09-24-2024 End: 09-24-2024 Subsequent hospital visit by physician [facility] Comment on above: Dyspepsia [R10.13] Start: 09-16-2024 End: 09-16-2024 ambulatory Linnea JOHNSONC Work Phone: [facility] Work Phone: Start: 09-16-2024 End: 09-16-2024 Departed Referred Haily Harris DO -[facility] Start: 09-16-2024 End: 09-16-2024 Clinisync Result Encounter Generic External Data Provider [facility] External Department Unsolicited Start: 09-16-2024 End: 09-16-2024 Clinisync Result Encounter Generic External Data Provider [facility] External Department Unsolicited Start: 09-12-2024 End: 09-12-2024 Office outpatient visit 25 minutes Quique Vazquez MD Work Phone: [facility] Comment on above: POTS (postural ortho static tachycardia syndrome); Postural orthostatic tachycardia syndrome (POTS); Acquired hypothyroidism; Type 2 diabetes mellitus without complication, without long-term current use of insulin; Never smoked tobacco; BMI 40.0-44.9, adult (Multi) Start: 09-12-2024 End: 09-12-2024 ambulatory QUIQUE Harris [facility] Start: 08-29-2024 End: 08-29-2024 Clinisync Result Encounter Generic External Data Provider [facility] External Department Unsolicited Start: 08-29-2024 End: 08-29-2024 Clinisync Result Encounter Generic External Data Provider [facility] External Department Unsolicited Start: 08-29-2024 ambulatory LINNEA HACKETT Facility:[facility] Start: 08-29-2024 End: 08-29-2024 Subsequent hospital visit by physician Bobo Parson MD Work Phone: Ambulatory Surgery Comment on above: Nausea and vomiting, unspecified vomiting type [R11.2] Start: 08-28-2024 End: 08-28-2024 Patient encounter procedure Quique Harris MD [facility] -Electrodiagnostics Work Phone: Start: 08-28-2024 End: 08-28-2024 ambulatory Nidia Hughes Facility:[facility] Start: 08-14-2024 End: 08-14-2024 Patient encounter procedure Linnea Hackett PA-C Work Phone: [facility] [place] Work Phone: Start: 08-14-2024 End: 08-14-2024 ambulatory Linnea Hackett PA-C Work Phone: [facility] Work Phone: Start: 07-30-2024 End: 07-30-2024 ambulatory LINNEA HACKETT Facility:[facility] Start: 07-10-2024 End: 07-11-2024 Clinisync Result Encounter Generic External Data Provider [facility] External Department Unsolicited Start: 07-10-2024 End: 07-11-2024 Clinisync Result Encounter Generic External Data Provider [facility] External Department Unsolicited Start: 07-10-2024 End: 07-10-2024 Subsequent hospital visit by physician Karo Avina Echo/Vasc Room 2 [facility] Comment on above: Syncope, unspecified syncope type Start: 07-10-2024 End: 07[facility]10[facility] Start: 07-08-2024 End: 07-08-2024 Bamboo flowsheet Linnea Hackett PA Work Phone: [facility] Start: 07-08-2024 End: 07-08-2024 Bamboo flowsheet Linnea Hackett PA Work Phone: [facility] Start: 07-08-2024 End: 07-08-2024 Office outpatient visit 25 minutes Linnea WEBSTER Work Phone: [facility] Comment on above: Acute cystitis with hematuria (Primary Dx); Periumbilical mass; Epigastric pain Start: 07-08-2024 End: 07-08-2024 ambulatory LINNEA HACKETT Not Available Start: 06-21-2024 End: 06-21-2024 Emergency department patient visit MOSHE MANRIQUEZ Facility:[facility] Start: 06-21-2024 End: 06-22-2024 Clinisync Result Encounter Generic External Data Provider [facility] External Department Unsolicited Start: 06-21-2024 End: 06-22-2024 Clinisync Result Encounter Generic External Data Provider [facility] External Department Unsolicited Start: 05-08-2024 End: 05-08-2024 Office outpatient new 45 minutes Quique Vazquez MD Work Phone: [facility] Comment on above: Postural orthostatic tachycardia syndrome (POTS) (Primary Dx); Syncope, unspecified syncope type; Hypothyroidism, unspecified type; BMI 40.0-44.9, adult (Multi); Never smoked tobacco; Morbid obesity (Multi) Start: 05-08-2024 End: 05-08-2024 ambulatory [facility] Start: 04-18-2024 End: 04-19-2024 Telephone encounter Linnea WEBSTER Work Phone: [facility] Start: 04-16-2024 End: 04-16-2024 Bamboo flowsheet Linnea Hackett PA Work Phone: [facility] Start: 04-16-2024 End: 04-16-2024 Bamboo flowsheet Linnea Hackett PA Work Phone: [facility] Start: 04-16-2024 End: 04-16-2024 Clinisync Result Encounter Linnea Hackett PA Work Phone: [facility] Department Unsolicited Start: 04-16-2024 End: 04-16-2024 ambulatory Linnea HACKETT Facility:[facility] Start: 04-16-2024 End: 04-16-2024 Patient encounter procedure Linnea HACKETT [facility] Start: 04-16-2024 End: 04-16-2024 Office outpatient visit 25 minutes Linnea Hackett PA Work Phone: [facility] Comment on above: Throat swelling (Megan karen Dx); Lower abdominal pain; Heart palpitations; Tachycardia; Acquired hypothyroidism ([facility]/HCC) Start: 04-16-2024 End: 04-16-2024 ambulatory LINNEA HACKETT Not Available Start: 01-18-2024 End: 01-18-2024 Bamboo flowsheet Linnea Hackett PA Work Phone: [facility] Start: 01-18-2024 End: 01-18-2024 Bamboo flowsheet Linnea Hackett PA Work Phone: [facility] Start: 01-18-2024 End: 01-18-2024 Office outpatient visit 25 minutes Linnea WEBSTER Work Phone: [facility] Comment on above: Viral upper respirat ory tract infection (Primary Dx); Mild intermittent asthma without complication (CMS/HCC) Start: 01-18-2024 End: 01-18-2024 ambulatory LINNEA HACKETT Not Available Start: 01-08-2024 End: 01-08-2024 Bamboo flowsheet Linnea Hackett PA Work Phone: [facility] Start: 01-08-2024 End: 01-08-2024 Bamboo flowsheet Linnea Hackett PA Work Phone: [facility] Start: 01-08-2024 End: 01-08-2024 Office outpatient visit 25 minutes Linnea WEBSTER Work Phone: [facility] Comment on above: Viral upper respirat ory tract infection (Primary Dx); Mild intermittent asthma without complication (CMS/HCC); Non-recurrent acute serous otitis media of right ear Start: 01-08-2024 End: 01-08-2024 ambulatory LINNEA HACKETT Not Available Start: 12-06-2023 End: 12-06-2023 Emergency department patient visit Cliff Gusman [facility] Start: 10-18-2023 End: 10-18-2023 ambulatory DB KEANE Not Available Start: 10-13-2023 End: 10-13-2023 Emergency department patient visit Santos Booker [facility] Start: 10-06-2023 Patient encounter status Linnea WEBSTER Work Phone: [facility] Start: 09-21-2023 End: 09-21-2023 ambulatory KADY Hackett Work Phone: [facility] Work Phone: Start: 09-21-2023 End: 09-21-2023 Departed Referred KADY Hackett Work Phone: [facility] Start: 09-04-2023 End: 09-04-2023 ambulatory SELF REFERRAL Facility:[facility] Start: 09-04-2023 End: 09-04-2023 Patient encounter procedure Magdi ReglaEula Duong [facility] Start: 08-01-2023 End: 08-01-2023 ambulatory Linnea HACKETT Facility:[facility] Start: 08-01-2023 End: 08-01-2023 Patient encounter procedure Linnea HACKETT [facility] Start: 06-14-2023 End: 06-14-2023 ambulatory Deon Parra Facility:[facility] Start: 06-14-2023 End: 06-14-2023 Patient encounter procedure Deon Parra [facility] Start: 05-25-2023 End: 05-26-2023 Emergency department patient visit Tarynbia Mariana Aleah [facility] Start: 05-08-2023 End: 05-08-2023 ambulatory Linnea HACKETT Facility:[facility] Start: 04-19-2023 Chart abstracting Kirk guillen MD Work Phone: [facility] Start: 04-18-2023 End: 04-18-2023 Office outpatient visit 15 minutes Linnea WEBSTER Work Phone: [facility] Comment on above: Intractable chronic migraine without 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); Sarcoma (CMS/HCC) Start: 04-06-2023 End: 04-06-2023 Admission to same day surgery center KADY Hackett Work Phone: [facility] [place] Start: 04-06-2023 End: 04-06-2023 ambulatory DARIN-Subha Hackett Work Phone: [facility] Work Phone: Start: 04-04-2023 End: 04-04-2023 ambulatory DARIN-Subha Hackett Work Phone: [facility] Work Phone: Start: 04-04-2023 End: 04-04-2023 Patient encounter procedure KADY Hackett Work Phone: [facility] Work Phone: Start: 03-15-2023 End: 03-15-2023 ambulatory IVETH IYER Facility:[facility] Start: 03-15-2023 End: 03-15-2023 Patient encounter procedure IVETH IYER [facility] Start: 02-23-2023 End: 02-23-2023 Subsequent hospital visit by physician Adri Lancaster (Lg Bore/1.5t) Work Phone: Radiology Comment on above: 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 Sharma) Start: 02-03-2023 End: 02-03-2023 ambulatory Jacqueline Sharma MD Work Phone: Hematology/Oncology Comment on above: History of sarcoma o f soft tissue (Primary Dx); Family history of cancer Start: 02-03-2023 End: 02-03-2023 Patient encounter procedure Leonardo Bray MD Work Phone: General Surgery Comment on above: Soft tissue tumor (P rimary Dx) Start: 01-26-2023 End: 01-26-2023 Emergency department patient visit Cliff Gusman Facility:[facility] Start: 01-05-2023 End: 01-05-2023 ambulatory Linnea HACKETT Facility:[facility] Start: 01-05-2023 End: 01-05-2023 Patient encounter procedure Linnea HACKETT [facility] Start: 12-30-2022 End: 12-30-2022 ambulatory Gabe R DELMYL Facility:[facility] Start: 12-30-2022 End: 12-30-2022 Patient encounter procedure Gabe R NILL [facility] Start: 12-26-2022 End: 12-26-2022 Emergency department patient visit Santos Booker [facility] Start: 12-22-2022 End: 12-22-2022 ambulatory Gabe R NILL Facility:[facility] Start: 12-12-2022 End: 12-12-2022 ambulatory Gabe R NILL Facility:[facility] Start: 12-09-2022 End: 12-09-2022 ambulatory Linnea HACKETT [facility] [facility] Start: 12-09-2022 End: 12-09-2022 Patient encounter procedure Gabe R NILL [facility] Start: 12-08-2022 End: 12-08-2022 ambulatory MD Nickolas Isaacs Work Phone: [facility] Work Phone: Start: 12-08-2022 End: 12-08-2022 Patient encounter procedure MD Nickolas Isaacs Work Phone: [facility]-Flu Vaccine Start: 11-24-2022 ambulatory Gabe GODWIN Facility:Yahir Guillen [place] Start: 10-14-2022 End: 10-14-2022 Emergency department patient visit Cliff Gusman [facility] Start: 10-13-2022 End: 10-13-2022 Patient encounter procedure Db KEANE [facility] Start: 04-11-2022 End: 04-11-2022 Patient encounter procedure Neyda Weinstein [facility] Start: 03-22-2022 End: 03-22-2022 Patient encounter procedure Linnea HACKETT [facility] Start: 03-22-2022 End: 03-22-2022 ambulatory Faby Gusman Other [email or web address] Other Start: 03-22-2022 Office outpatient vi sit 15 minutes Faby Gusman [facility] Start: 03-16-2022 End: 04-01-2022 Pre-admission assessment Rebeka ALVAREZ [facility] Start: 02-28-2022 End: 02-28-2022 Patient encounter procedure Leonardo Bates [facility] Start: 02-23-2022 End: 04-05-2022 Pre-admission assessment Leonardo Herndon Bates [facility] Start: 02-22-2022 End: 02-22-2022 Patient encounter procedure Leonardo Herndon Bates [facility] Start: 02-08-2022 End: 02-08-2022 Patient encounter procedure Linnea Yanick HACKETT [facility] Start: 01-04-2022 End: 01-04-2022 Emergency department patient visit Héctor SEula Christianson [facility] Start: 11-26-2021 End: 11-26-2021 Emergency department patient visit Cliff Gusman [facility] Start: 11-24-2021 End: 11-24-2021 Emergency department patient visit Héctor ConnieEula Christianson [facility] Start: 11-23-2021 End: 11-23-2021 ambulatory Faby Fay Other [place] [employer] Other Start: 11-23-2021 Office outpatient vi sit 5 minutes Faby Fay [facility] Start: 10-29-2021 End: 10-29-2021 Departed Referred MD Nickolas Isaacs Work Phone: [facility]-Employee Benefit Screening Start: 11-12-2020 End: 11-13-[address] GRACIE RAMIREZ Facility:H1 Procedures Date Procedure Procedure Detail Performing Clinician Start: 09-24-2024 NM GASTRIC EMPTYING SOLID Generic External Data Provider Start: 09-16-2024 [facility] [place] [place] [facility] [place] [facility] External Data Provider Start: 09-16-2024 Urine culture Linnea alvarez PA-C Work Phone: Start: 08-29-2024 Colonoscopy Generic Ex ternal Data Provider Start: 08-29-2024 Colonoscopy flx dx w /collj spec when pfrmd Kimberly Pack [employer] Work Phone: Start: 08-29-2024 Esophagoscp rig velasquez soral hypopharynx crv esoph Kimberly Pack [employer] Work Phone: Start: 08-29-2024 UPPER GI ENDOSCOPY Gene lian External Data Provider Start: 08-14-2024 CT of abdomen and pe lvis without contrast Linnea Hackett PA-C Work Phone: Start: 07-10-2024 Echo tthrc r-t 2d w/ wom-mode compl spec&colr d Generic External Data Provider Start: 06-21-2024 [facility] Ge neric External Data Provider Start: 05-08-2024 Ecg routine ecg w/le ast 12 lds w/i&r Quique Vazquez MD Work Phone: Start: 04-16-2024 [facility] TSH WITH T4FR REFLEX Linnea WEBSTER Work Phone: Start: 04-06-2023 Laparoscopic cholecystectomy KADY Hackett Work Phone: Start: 02-23-2023 Mri abdomen w/o & w/ contrast material Leonardo Bray MD Work Phone: Start: 02-23-2023 Ct thorax w/contrast material Jacqueline Sharma MD Work Phone: Start: 12-22-2022 Excision of lipoma Santos Booker Start: 12-20-2019 Arthroscopy of knee Elizabeth h Meghan Comment on above: RIGHT KNEE ARTHROSCO PY, partial lateral menisectomy Extraction of wisdom tooth N oah Meghan Plan of Treatment Date Care Activity Detail Author Start: 2045 Zoster Vaccines (1 o f 2) Zoster Vaccines (1 of 2) [facility] Start: 05-06-2025 End: 05-06-2025 Patient encounter procedure 05/06/2025 8:50 AM EST Office Visit [facility] [address] [place] [phone] Quique Vazquez MD [address] [place] [address] [facility] Start: 12-20-2024 End: 12-20-2024 Patient encounter procedure 12/20/2024 8:00 AM EDT Office Visit [facility] [place] [facility] [address] [place] [address] Linnea Hackett PA [address] [place] [address] [facility] [place] [facility] Start: 11-11-2024 Influenza vaccination Influenza Vacc ine (#1) [facility] Start: 10-24-2024 End: 10-24-2024 Patient encounter procedure 10/24/2024 12:40 PM EDT Office Visit [facility] [place] [facility] [address] [place] [address] Linnea Hackett, PA [address] [place] [address] [facility] [place] [facility] Start: 10-23-2024 End: 10-23-2024 Patient encounter procedure [facility] Comment on above: Arrived Start: 10-18-2024 Yearly Adult Physical Yearly Adult P hysical [facility] Start: 10-14-2024 End: 10-14-2024 Patient encounter procedure 10/14/2024 12:20 PM EDT Office Visit [facility] [place] [facility] [address] [place] [id number] Linnea Hackett PA [address] [place] [address] Arrived [facility] [place] [facility] Comment on above: Arrived Start: 09-16-2024 Urine culture [facility] Start: 09-16-2024 Bacteria identified in Urine by Culture Urine Culture [facility] Start: 08-01-2024 End: 08-01-2024 Patient encounter procedure 08/01/2024 10:40 AM EDT Office Visit [facility] [address] [place] [address] Quique Vazquez MD [address] [place] [address] [facility] Start: 07-08-2024 End: 07-08-2024 Patient encounter procedure 07/08/2024 11:00 AM EDT Office Visit JAIME DEXTER [address] [place] [address] Linnea Hackett PA [address] [place] [address] Arrived [facility] DEXTER Comment on above: Arrived Start: 05-08-2024 End: 05-08-2026 Tilt table study [facility] Routine Postural orthostatic tachycardia syndrome (POTS) Syncope, unspecified syncope type Expected: 05/08/2024 (Approximate), Expires: 05/08/2026 [facility] Service Area Work Phone: Comment on above: Expected: 05/08/2024 (Approximate), Expires: 05/08/2026 Start: 04-16-2024 End: 04-16-2025 TSH W/REFLEX TO FT4 TSH W/REFLEX TO FT4 Lab Routine Acquired hypothyroidism (CMS/HCC) Expected: 04/16/2024 (Approximate), Expires: 04/16/2025 [facility] Work Phone: Comment on above: Expected: 04/16/2024 (Approximate), Expires: 04/16/2025 Start: 04-16-2024 End: 04-16-2024 Patient encounter procedure 04/16/2024 10:00 AM EST Office Visit [facility] [address] [place] [phone] Linnea Hackett PA [address] [place] [address] Arrived [facility] Comment on above: Arrived Start: 01-18-2024 End: 01-18-2024 Patient encounter procedure [facility] Comment on above: Arrived Start: 01-08-2024 End: 01-08-2024 Patient encounter procedure 01/08/2024 11:30 AM EDT Office Visit [facility] [address] [place] [phone] Linnea Hackett, PA [address] [place] [address] Arrived [facility] Comment on above: Arrived Start: 11-12-2023 Covid-19 Vaccine ( season) Covid-19 Vaccine ( season) [facility] Start: 11-12-2023 COVID-19 Vaccine ( season) COVID-19 Vaccine ( season) [facility] Start: 11-12-2023 Influenza vaccination Influenza Vacc ine (#1) [facility] Start: 10-18-2023 End: 10-18-2023 Patient encounter procedure 10/18/2023 2:20 PM EDT Office Visit [facility] [address] [place] [phone] Db [place], [address] [place] [address] [facility] Start: 05-31-2023 End: 05-31-2023 Patient encounter procedure 05/31/2023 9:00 AM EDT Consult [facility] [address] [place] [phone] Nichol Kiser, DO [address] [place] [address] [facility] Start: 04-19-2023 End: 04-19-2023 Patient encounter procedure 04/19/2023 9:30 AM EST Office Visit [facility] [address] [facility] [address] [place] [phone] Kirk Rush MD [address] [facility] [address] [place] [address] [facility] Start: 04-06-2023 [facility] Start: 04-06-2023 [facility] Start: 02-15-2023 End: 03-09-2024 CT CHEST W IVCON CT CHEST W IVCON Radiology Routine History of sarcoma of soft tissue Family history of cancer Expected: 02/15/2023, Expires: 03/09/2024 [facility] Work Phone: Comment on above: Expected: 02/15/2023 , Expires: 03/09/2024 Start: 11-11-2022 Covid-19 Vaccine ( season) Covid-19 Vaccine ( season) [facility] Start: 03-13-2022 Depression Assessment Depression Ass essment [facility] Start: 01-20-2016 Pap Testing Pap Testing [facility] Start: 01-20-2016 Screening for malign ant neoplasm of cervix [facility] Start: 2014 Pneumococcal Vaccine : Pediatrics and At-Risk Adult Patients (1 of 2 - PCV) Pneumococcal Vaccine: Pediatrics and At-Risk Adult Patients (1 of 2 - PCV) [facility] Start: 2013 Annual 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 Disease Visit Annual PCP Team Chronic Disease Visit [facility] Start: 2013 Anxiety Screening Anxiety Screening [facility] Start: 2013 Depression Screening Depression Scre ening [facility] Start: 2013 Diabetes mellitus screening Diabetes Screening [facility] Start: 11-09-2013 Hepatitis C Screening Hepatitis C [facility] Start: 2013 Hepatitis C screening Hepatitis C [facility] Start: 2013 HIV Screening HIV Screening [facility] Start: 2013 HIV screening HIV Screening [facility] Start: 05-02-2008 HPV Vaccines (2 - 2-dose series) HPV Vaccines (2 - 2-dose series) [facility] Start: 01-20-2008 Varicella vaccination Varicell a Vaccines (1 of 2 - 13+ 2-dose series) [facility] Start: 2006 DTaP/Tdap/Td Vaccine s (6 - Tdap) DTaP/Tdap/Td Vaccines (6 - Tdap) [facility] Start: 2006 Urine microalbumin profile DTaP,Tdap,Td Vaccine (6 - Tdap) [facility] Start: 2005 Glaucoma screening Diabetes: R etinopathy Screening [facility] Start: 1995 Hemoglobin A1c measurement Diabetes: Hemoglobin A1C [facility] Start: 1995 HIV screening HIV Screening [facility] Start: 1995 Lipid panel Lipid Panel [facility] Start: 1995 Thyroid stimulating hormone measurement TSH Level [facility] Start: 1995 Urine screening for protein Diabetes: Urine Protein Screening [facility] Start: 1995 Yearly Adult Physical Yearly Adult P hysical [facility] End: 10-01-2025 BREATH TEST GLUCOSE BREATH TEST GLUCOSE Endoscopy Routine Nausea and vomiting, unspecified vomiting type 1 Occurrences starting 10/01/2024 until 10/01/2025 [facility] Comment on above: 1 Occurrences starti ng 10/01/2024 until 10/01/2025 Cytology Cervical or vaginal smear or scraping study Pap Smear Pathology and Cytology Routine Well woman exam with routine gynecological exam Ordered: 10/23/2024 [facility] Work Phone: Comment on above: Ordered: 10/23/2024 End: 03-04-2024 Mri abdomen w/o & w/contrast material MRI ABDOMEN WO/W IVCON Radiology Routine Soft tissue tumor 1 Occurrences starting 02/03/2023 until 03/04/2024 [facility] Work Phone: Comment on above: 1 Occurrences starti ng 02/03/2023 until 03/04/2024 NM Stomach Views for gastric emptying solid phase W radionuclide PO NM GASTRIC EMPTYING SOLID Radiology Routine Dyspepsia 09/24/2024 9:32 AM EDT [facility] Work Phone: Patient Education Cholecystectom y (DC) Hydrocodone and Acetaminophen [facility]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 seen in the ED Yes Diagnosis Stomach pain Discharge Date 06/21/24 Discharged To: Home Setting Discharge [facility] Engagement Admission Date 06/21/24 Medications Discharge medications reviewed and reconciled from hospital? Yes Is the patient having any side effects they believe may be caused by any medication additions or changes? No Does the patient have all medications ordered at discharge? Yes Nursing Interventions No intervention needed Is the patient taking all medications as directed (includes completed medication regime)? Yes Nursing Interventions Nurse provided patient education Appointments Does the patient have a primary care provider? Yes Nursing Interventions Verified appointment date/time/provider Self Management Does patient have home health? no Patient Teaching Does the patient have access to their discharge instructions? Yes Nursing Interventions Reviewed instructions with patient What is the patient's perception of their health status since discharge? Improving Is the patient/caregiver able to teach back the hierarchy of who to call/visit for symptoms/problems? PCP, Specialist, Home Health nurse, Urgent Care, ED, 911 Yes Wrap Up Is the patient/caregiver familiar with Advance Care Planning? Yes Would the patient like more information on Advance Care Planning? No Wrap Up Additional Comments PT had CT, labs, and urine done History of Present Illness The patient is a 29-year-old female who presents for evaluation of nausea and vomiting, urinary tract infection, POTS, and bruising. Approximately 6 weeks ago, she experienced an episode of severe illness following a meal, initially attributing it to food poisoning. However, the symptoms have persisted, with postprandial nausea and vomiting occurring 2 to 3 hours after eating. An inability to retain even water is reported, as evidenced by an episode of vomiting at 1:00 AM today. Despite normal CT scan results, an antibiotic was prescribed due to elevated bacterial levels, which did not alleviate her gastrointestinal symptoms. A burning sensation in her stomach is described, accompanied by sweating, nausea, and excessive salivation. A sensation of food stagnation in her stomach for several hours post-consumption is also reported. A scheduled appointment with a msws is on 09/03/2024. Her father had advised her to go to the [facility] in hopes of getting an earlier appointment. However, they informed her that this could not be arranged through the emergency department. Pain medication and Zofran were administered, and she was then sent home. Attempts to consume crackers, mashed potatoes, rice, and chicken broth have all resulted in vomiting. She continues to force herself to eat despite the associated discomfort and has lost weight. She recalls going on vacation in May before all these symptoms started. She was in [place] and had a good time. For the most part, she felt well while she was there, although she did experience some pain here and there. Additionally, being out in the sun made her feel exhausted. She has been prescribed Reglan, Zofran, and omeprazole, but these medications have not provided significant relief. No dysuria was initially reported, but a recent development of a burning sensation during urination is noted. Keflex was previously prescribed for a urinary tract infection. An echocardiogram was done on Monday through [facility] because a doctor diagnosed her with POTS due to all her cardiac issues. He thinks that might be part of the reason why she has had extreme fatigue, shortness of breath, and migraines. Confirmation with the tilt table test is planned for next . Unexplained bruising on various parts of her body, including her shoulder blade and buttocks, is reported without any history of falls. MEDICATIONS: Current Outpatient Medications Medication Instructions albuterol HFA 90 mcg/act inhaler 2 puffs, Every 4 hours PRN Albuterol-Budesonide (Airsupra) 90-80 MCG/ACT aerosol 2 puffs, Inhalation, Every 4 hours PRN albuterol 2.5 mg, Nebulization, Every 6 hours PRN azithromycin (Zithromax) 250 MG tablet Take 2 tabs PO x 1 day then 1 tab PO daily x 4 days cholecalciferol (Vitamin D-3) 25 MCG (1000 UT) capsule 2 capsules, Daily Ooolslctvyr-Aulrwhgxt-Yvbdpt (Trelegy Ellipta) 200-62.5-25 MCG/ACT aerosol powder 1 puff, Inhalation, Daily levothyroxine (SYNTHROID) 112 mcg, Oral, Daily before breakfast metFORMIN XR (GLUCOPHAGE-XR) 500 mg, Oral, Daily with evening meal, Do not crush, chew, or split. methylPREDNISolone (Medrol Dospak) 4 MG tablets Follow schedule on package instructions metoclopramide (REGLAN) 5 mg, Every 6 hours PRN nitrofurantoin (macrocrystal-monohydrate) (MACROBID) 100 mg, Oral, 2 times daily omeprazole (PRILOSEC) 20 mg, Daily RT promethazine-dextromethorphan (Phenergan-DM) 6.25-15 MG/5ML syrup 5 mL, Oral, Every 6 hours PRN Slynd 4 mg, Oral, Daily topiramate (TOPAMAX) 100 mg, Oral, Nightly Ubrelvy 100 MG tablet TAKE 1 TABLET BY MOUTH DAILY NEEDED. MAY REPEAT in 2 hours. max of 2 TABLETS in 24 hours. ALLERGIES: Allergies Allergen Reactions Bee Venom Hives [...] Social History reviewed. OBJECTIVE: Visit Vitals BP 124/82 (BP Location: Right arm, Patient Position: Sitting, BP Cuff Size: Large adult) Pulse 83 Temp 98 F (Temporal) Ht 5' 8 Wt 273 lb 3.2 oz SpO2 98% BMI 41.54 kg/m OB Status Having periods Smoking Status Never BSA 2.44 m BP Readings from Last 3 Encounters: 07/08/24 124/82 04/16/24 114/78 01/18/24 118/82 Wt Readings from Last 3 Encounters: 07/08/24 273 lb 3.2 oz 04/16/24 283 lb 9.6 oz 01/18/24 276 lb 9.6 oz Physical Exam Physical Exam General: alert & oriented, NAD Head: NC/AT Oral Cavity: MMM Skin: warm, dry Heart: RRR, No m/r/g, S1S2 nml Lungs: CTA b/l Abdomen: soft, ND/NT, BS wnl Musculoskeletal: normal gait Extremities: no clubbing, cyanosis or edema Neurological: nonfocal Psych: mood/affect full range Results Labs - Urinalysis: 06/21/2024, Significant bacteria count greater than 9000, normal urogenital antwan Imaging - CT scan: Normal ASSESSMENT AND PLAN: Assessment & Plan 1. Nausea and vomiting. - Symptoms suggest a potential motility disorder, characterized by delayed gastric emptying and subsequent nausea. - Despite normal CT scan results, significant discomfort persists. - Currently taking metoclopramide, Zofran, and omeprazole; initial relief from metoclopramide was noted but has since diminished. - Encouraged to keep the upcoming appointment with the msws on 09/03/2024 for further evaluation. 2. Urinary tract infection. - Reports a burning sensation during urination. - Urinalysis showed a significant bacterial count with normal urogenital antwan. - Previously prescribed Keflex, which did not alleviate symptoms. - Prescription for Macrobid will be sent to [facility] in [place] to target the urinary tract infection more specifically. 3. Postural Orthostatic Tachycardia Syndrome (POTS). - Diagnosed with POTS, contributing to symptoms of extreme fatigue, shortness of breath, and migraines. - Recent echocardiogram performed; scheduled for a tilt table test next to confirm the diagnosis. - Follow-up with the irrigationist designer next week. 4. Bruising. - Reports unexplained bruising on the shoulder blade and buttocks. - Potentially related to current medications. - No changes to the medication regimen recommended at this time. FMLA completed Assessment/Plan Problem List Items Addressed This Visit Abdominal pain Periumbilical mass Acute cystitis with hematuria - Primary Relevant Medications nitrofurantoin, macrocrystal-monohydrate, (Macrobid) 100 MG capsule There are no preventive care reminders to display for this patient. documented in this encounter [facility] 05-08-2024 History of Present illness Narrative Cardiology Consultation- New Consult Reason for referral: Tachycardia/syncope HPI: Adina Martinez is a 29 y.o. female who is being seen for evaluation of recurrent symptoms of tachycardia and syncope. The patient has classical symptoms of POTS started 2 years ago. She has multiple events of syncope during activity and during situations of being in hot humid environment. Examples of that would be like being in the shower. She was evaluated by Dr. Mcfadden at [facility] couple years ago and had an echocardiogram which was normal. She had no other testing. She has no sleep apnea and no history of seizure activities. She has morbid obesity and recently was started on metformin. 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 It seems to be quiescent. The patient has polycystic ovarian disease. EKG revealed normal sinus rhythm and physical examination was normal outside of her morbid obesity. She is non-smoker nondrinker with no family history of premature cardiovascular disease. She is single. Assessment/recommendations: 1-clinical scenario highly consistent with POTS syndrome. Patient was provided with extensive education about the conservative measures to prevent clinical events such as maintaining adequate hydration, high salt diet, avoiding environments of heat and humidity. Medical therapy was not prescribed and the options available were discussed with the patient. She will be referred for a formal documentation of the disease with a tilt table test. After that further advice to be provided, will obtain copy of the echocardiogram from [facility]. 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 5-hypothyroidism on replacement therapy under control managed by PCP Past Medical History: She has no past medical history on file. Surgical History: She has a past surgical history that includes Knee cartilage surgery (2019); Cholecystectomy; and Other surgical history. Family History: Family History Problem Relation Name Age of Onset Diabetes Mother Hypertension Father Social History: Social History Tobacco Use Smoking status: Never Smokeless tobacco: Never Substance Use Topics Alcohol use: Yes Comment: 1-2 yearly Allergies: Patient has no known allergies. Current Medications: Current Outpatient Medications: levothyroxine (Synthroid, Levoxyl) 112 mcg tablet, Take 1 tablet (112 mcg) by mouth once daily in the morning. Take before meals., Disp: , Rfl: metFORMIN XR 500 mg 24 hr tablet, Take 1 tablet (500 mg) by mouth once daily., Disp: , Rfl: omeprazole (PriLOSEC) [address] capsule, Take 1 capsule (20 mg) by mouth once daily., Disp: , Rfl: Vitals: Vitals: 05/08/24 0936 05/08/24 0942 BP: 110/86 118/82 BP Location: Right arm Left arm Patient Position: Sitting Sitting Pulse: 79 Weight: 130 kg (286 lb) Height: 1.727 m (5' 8 ) EKG done in office today Review of Systems Constitutional: Positive for malaise/fatigue. Cardiovascular: Positive for chest pain, irregular heartbeat, palpitations and syncope. Respiratory: Positive for shortness of breath. Neurological: Positive for light-headedness. All other systems reviewed and are negative. Objective Physical Exam Constitutional: Appearance: Normal appearance. [...] Content: Thought content normal. Judgment: Judgment normal. Assessment and Plan: 1. Postural orthostatic tachycardia syndrome (POTS) 2. Syncope, unspecified syncope type 3. Hypothyroidism, unspecified type 4. BMI 40.0-44.9, adult (Multi) 5. Never smoked tobacco Scribe Attestation By signing my name below, I, Irais Gregory LPN , Gila attest that this documentation has been prepared under the direction and in the presence of Quique Vazquez MD. Provider Attestation - Scribe documentation All medical record entries made by the Scribe were at my direction and personally dictated by me. I have reviewed the chart and agree that the record accurately reflects my personal performance of the history, physical exam, discussion and plan. documented in this encounter [facility] Work Phone: 05-08-2024 Instructions Irais Antoine LPN - 05/08/2024 9:40 AM EST Please bring all medicines, vitamins, and herbal supplements with you when you come to the office. Prescriptions will not be filled unless you are compliant with your follow up appointments or have a follow up appointment scheduled as per instruction of your physician. Refills should be requested at the time of your visit. [place] [facility] [place] Visit for results BMI was above normal measurement. Current weight: 130 kg (286 lb) Weight change since last visit (-) denotes wt loss 286 lbs Weight loss needed to achieve BMI 25: 121.9 Lbs Weight loss needed to achieve BMI 30: 89.1 Lbs Provided instructions on dietary changes. documented in this encounter [facility] Work Phone: 04-19-2024 Telephone encounter Note reviewed [facility] 04-19-2024 Miscellaneous Notes reviewed Please call patient blood work shows we need to increase thyroid medication, sent new dose to [facility] See in 3 months for follow up documented in this encounter [facility] 04-18-2024 Telephone encounter Note Please call patient blood work shows we need to increase thyroid medication, sent new dose to [facility] See in 3 months for follow up [facility] 04-16-2024 History of Present illness Narrative Images from the original note were not included. Adina Martinez is a 29 y.o. female presents with chief complaint of Allergy Testing and Heart Problem (Wants to talk about cardiology referral) HPI: History of Present Illness The patient is a 29-year-old female who presents for evaluation of tachycardia, weight gain, abdominal pain, sarcoma, and suspected allergies. She was previously advised to seek a cardiology consultation following an emergency room visit due to elevated heart rate and decreased oxygen saturation. She reports persistent tachycardia, with heart rates ranging from 80 to 120 at rest, and escalating to 140 or 150 during physical activity. This has been ongoing for approximately 3 months. She experiences occasional presyncope, dizziness upon standing, and vertigo-like symptoms. She also reports tinnitus. Her blood pressure today is 114/78, although she notes it tends to be higher during hospital visits, which she attributes to pain and anxiety. She has an upcoming appointment with her oncologist on 07/11/2024. During her last visit, it was noted that the pancreatic lesion remained unchanged, but there was evidence of growth in the pulmonary nodules. A follow-up imaging study is planned for July 2024. If the nodules continue to enlarge or exhibit changes, a biopsy will be considered. Subsequent treatment options, including chemotherapy and radiation therapy, will be discussed based on the biopsy results. She has been experiencing bloating after consuming certain foods, accompanied by a sensation of throat swelling. She also reports severe abdominal pain at night, describing it as a burning sensation. She has attempted dietary modifications, including gluten elimination and sugar reduction, in an effort to lose weight, but these have been unsuccessful. She has not had her thyroid function tested recently. Despite regular exercise, she continues to gain weight. She has noticed a hard lump in the middle of her abdomen, which she is unsure if it is related to muscle contraction during sit-ups. She has expressed interest in undergoing allergy testing with Dr. Davies. She recalls a previous plan for allergy and genetic testing at the [facility], but these were not completed. She has not discussed this with her oncologist. She has been monitoring her blood glucose levels due to rapid drops. She carries a nebulizer and 5 different inhalers with her at all times. She plans to discuss hormone testing with her cattle sorter, as her mother suggested this could be contributing to her weight loss challenges, given her history of polycystic ovary syndrome (PCOS). MEDICATIONS: Current Outpatient Medications Medication Instructions albuterol HFA 90 mcg/act inhaler 2 puffs, Every 4 hours PRN Albuterol-Budesonide (Airsupra) 90-80 MCG/ACT aerosol 2 puffs, Inhalation, Every 4 hours PRN albuterol 2.5 mg, Nebulization, Every 6 hours PRN azithromycin (Zithromax) 250 MG tablet Take 2 tabs PO x 1 day then 1 tab PO daily x 4 days cholecalciferol (Vitamin D-3) 25 MCG (1000 UT) capsule 2 capsules, Daily Ylovndhpbyq-Xevgrjkfi-Geygpd (Trelegy Ellipta) 200-62.5-25 MCG/ACT aerosol powder 1 puff, Inhalation, Daily levothyroxine (Synthroid, Levoxyl) 100 MCG tablet TAKE 1 TABLET BY MOUTH EVERY MORNING; TAKE BEFORE MEALS methylPREDNISolone (Medrol Dospak) 4 MG tablets Follow schedule on package instructions promethazine-dextromethorphan (Phenergan-DM) 6.25-15 MG/5ML syrup 5 mL, Oral, Every 6 hours PRN Slynd 4 mg, Oral, Daily topiramate (TOPAMAX) 100 mg, Oral, Nightly ALLERGIES: Allergies Allergen Reactions Bee Venom Hives [...] Social History reviewed. OBJECTIVE: Visit Vitals BP 114/78 (BP Location: Left arm, Patient Position: Sitting, BP Cuff Size: Large adult) Pulse 80 Temp 98.4 F (Temporal) Ht 5' 8 Wt 283 lb 9.6 oz SpO2 99% BMI 43.12 kg/m OB Status Having periods Smoking Status Never BSA 2.49 m BP Readings from Last 3 Encounters: 04/16/24 114/78 01/18/24 118/82 01/08/24 124/78 Wt Readings from Last 3 Encounters: 04/16/24 283 lb 9.6 oz 01/18/24 276 lb 9.6 oz 01/08/24 279 lb 3.2 oz Physical Exam Physical Exam Vital Signs The patient's blood pressure is 114/78. The patient's heart rate is 80. General: alert & oriented, NAD Head: NC/AT Oral Cavity: MMM Skin: warm, dry Heart: RRR, No m/r/g, S1S2 nml Lungs: CTA b/l Abdomen: soft, ND/NT, BS wnl Musculoskeletal: normal gait Extremities: no clubbing, cyanosis or edema Neurological: nonfocal Psych: mood/affect full range Results ASSESSMENT AND PLAN: Assessment & Plan 1. Tachycardia. She reports experiencing high heart rates, ranging from 80-120 bpm at rest and 140-150 bpm with minimal activity, persisting for about 3 months. She also experiences dizziness and ringing in her ears. A referral to Cardiology at [facility] has been initiated. 2. Abdominal pain. She describes a burning sensation in her abdomen, particularly at night, which is not related to her known acid reflux. She has also noticed a hard lump in the middle of her abdomen. She is advised to inform her sarcoma specialist about this new symptom, as it may be related to her existing condition. 3. Sarcoma. She has a scheduled appointment with her sarcoma specialist on 07/11/2024 to evaluate the existing pancreatic lesion and growing lung nodules. She is advised to discuss the possibility of genetic testing with her sarcoma specialist during her next visit. If the nodules have grown or changed, a biopsy will be considered, followed by potential chemotherapy or radiation therapy if cancerous. 4. Suspected allergies. She experiences bloating and throat swelling with certain foods. A referral for allergy testing with Dr. Davies has been initiated. 5. Weight gain. Despite cutting out gluten and reducing sugar intake, she continues to gain weight. A thyroid function test has been ordered to rule out any underlying issues. She is advised to continue her current diet and exercise regimen. Assessment/Plan Problem List Items Addressed This Visit Acquired hypothyroidism (CMS/HCC) Relevant Orders TSH W/REFLEX TO FT4 Abdominal pain Relevant Orders Ambulatory referral to Allergy Throat swelling - Primary Relevant Orders Ambulatory referral to Allergy Heart palpitations Relevant Orders Ambulatory referral to Cardiology Tachycardia Relevant Orders Ambulatory referral to Cardiology There are no preventive care reminders to display for this patient. documented in this encounter [facility] 01-18-2024 History of Present illness Narrative Images from the original note were not included. Adina Martinez is a 28 y.o. female presents with chief complaint of Follow-up HPI: History of Present Illness The patient is a 28-year-old female who presents for a follow-up visit. She was unable to attend her scheduled follow-up in 09/2023 due to unforeseen circumstances. She had a consultation in [place] yesterday where it was discovered that her uterus is approximately three times its normal size. She was advised to consult her cattle sorter as this could be indicative of Polycystic Ovary Syndrome (PCOS) or another condition. 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 While these are often benign, there is a 1 to 10 percent chance of them developing into pancreatic cancer. Her doctor plans to discuss the preliminary reports with a chemical engineering technician and will contact her to discuss the findings. She also has a hiatal hernia. Spots on her lungs, initially measured at 0.01 cm, have grown to 4 cm. She was given an x-ray and a CT scan of her chest, but she has not yet received the results. Her doctor suggested that the spots could be scar tissue from a recent illness. She continues to use Trelegy and albuterol, and performs breathing treatments twice daily. She has completed her course of antibiotics and steroids, and has some cough suppressant medication remaining. She has requested paperwork for her Family and Medical Leave Act (FMLA) to be completed. MEDICATIONS: Current Outpatient Medications Medication Instructions albuterol HFA 90 mcg/act inhaler 2 puffs, Every 4 hours PRN Albuterol-Budesonide (Airsupra) 90-80 MCG/ACT aerosol 2 puffs, Inhalation, Every 4 hours PRN albuterol 2.5 mg, Nebulization, Every 6 hours PRN azithromycin (Zithromax) 250 MG tablet Take 2 tabs PO x 1 day then 1 tab PO daily x 4 days cholecalciferol (Vitamin D-3) 25 MCG (1000 UT) capsule 2 capsules, Daily Aberprgfxwu-Xyfqbawgv-Fauqji (Trelegy Ellipta) 200-62.5-25 MCG/ACT aerosol powder 1 puff, Inhalation, Daily levothyroxine (Synthroid, Levoxyl) 100 MCG tablet TAKE 1 TABLET BY MOUTH EVERY MORNING; TAKE BEFORE MEALS methylPREDNISolone (Medrol Dospak) 4 MG tablets Follow schedule on package instructions promethazine-dextromethorphan (Phenergan-DM) 6.25-15 MG/5ML syrup 5 mL, Oral, Every 6 hours PRN Slynd 4 mg, Oral, Daily topiramate (TOPAMAX) 100 mg, Oral, Nightly ALLERGIES: Allergies Allergen Reactions Bee Venom Hives and Anaphylaxis Raspberry Rash and Anaphylaxis Other Unknown Food Rash Pt allergic to berries Review of Systems General: Denies fever, chills, fatigue, CLADUIO or weight loss/gain CV: Denies CP, palpitations or swelling in legs Resp: denies cough, SOB or wheezing GI: Denies abd pain/n/v/c/d Skin: Denies rash Neuro: Denies LH or dizziness Medical, Surgical, Family, and Social History reviewed. OBJECTIVE: Visit Vitals BP 118/82 (BP Location: Left arm, Patient Position: Sitting, BP Cuff Size: Large adult) Pulse 78 Temp 97.7 F (Temporal) Ht 5' 8 Wt 276 lb 9.6 oz LMP 12/12/2023 SpO2 98% BMI 42.06 kg/m OB Status Having periods Smoking Status Never BSA 2.45 m BP Readings from Last 3 Encounters: 01/18/24 118/82 01/08/24 124/78 10/18/23 122/72 Wt Readings from Last 3 Encounters: 01/18/24 276 lb 9.6 oz 01/08/24 279 lb 3.2 oz 10/18/23 279 lb Physical Exam Physical Exam General: alert & oriented, NAD Head: NC/AT Oral Cavity: MMM Skin: warm, dry Heart: RRR, No m/r/g, S1S2 nml Lungs: CTA b/l Abdomen: soft, ND/NT, BS wnl Musculoskeletal: normal gait Extremities: no clubbing, cyanosis or edema Neurological: nonfocal Psych: mood/affect full range Results Imaging Uterus is about three times the size it should be. Tumor on pancreas, identified as a sidebranch IPMN. Hiatal hernia present. Spots on lungs have increased from 0.01 cm to 4 cm. Chest X-ray shows no evidence of acute cardiopulmonary disease, congestion, focal consolidation, mass, effusion, pneumothorax, pulmonary nodules, or abnormally enlarged lymph nodes. ASSESSMENT AND PLAN: Assessment & Plan 1. Enlarged Uterus. The patient reports that her uterus is about three times the size it should be. She was advised to contact her cattle sorter for further evaluation. Differential diagnosis includes Polycystic Ovary Syndrome (PCOS) and other potential gynecological conditions. 2. Pancreatic Tumor. A tumor on the pancreas was identified, suspected to be a side-branch Intraductal Papillary Mucinous Neoplasm (IPMN). Preliminary reports suggest it is likely benign, but there is a 1-10% chance of it becoming pancreatic cancer. Awaiting official radiology report for further assessment. 3. Hiatal Hernia. The patient has been diagnosed with a hiatal hernia. No specific treatment plan was discussed during this visit. 4. Lung Nodules. Previously identified lung spots have increased from 0.01 cm to 4 cm. A chest x-ray was performed, showing no evidence of acute cardiopulmonary disease, congestion, focal consolidation, mass, effusion, pneumothorax, pulmonary nodules, or enlarged lymph nodes. A CT scan of the chest was also performed, and results are pending. The patient was informed that the spots might be scar tissue from a recent illness. 5. Respiratory Symptoms. The patient continues to use Trelegy, albuterol, and perform breathing treatments twice a day. She recently completed a course of antibiotics and steroids. She has some remaining cough suppressant medication but did not request a refill. Her lungs sound quiet but are moving air adequately. 6. Medication Management. The patient completed her antibiotic and steroid courses. She continues to use Trelegy and albuterol as prescribed. Assessment/Plan Problem List Items Addressed This Visit Mild intermittent asthma without complication (CMS/HCC) Viral upper respiratory tract infection - Primary There are no preventive care reminders to display for this patient. documented in this encounter [facility] 01-08-2024 History of Present illness Narrative Images from the original note were not included. Telehealth Encounter: Verbal consent was obtained from patient for Telehealth Services. Patient Location ([place]) Adina Martinez is a 28 y.o. female presents with chief complaint of Shortness of Breath (Patient reporting issues with breathing. Patient reporting exposure to RSV and pneumonia approximately two weeks. States breathing has been getting worse over last two weeks. Reporting no fevers.) and Cough (Patient reporting chronic cough over last two weeks. ) HPI: History of Present Illness The patient is a 28-year-old female who presents for evaluation of a persistent cough. She has been experiencing this cough for the past 2 weeks, which has progressively worsened. Despite testing negative for COVID-19 on four separate occasions, she has been exposed to RSV and pneumonia. Her coughing episodes are severe, leading to vomiting and urinary incontinence. She has been producing green phlegm from her nose and mouth. A month ago, she sought emergency care due to a low oxygen level of 88, but the cause was not identified. She was given breathing treatments and discharged. She has been managing her symptoms with Trelegy, Airsupra, and a regular inhaler, which were effective prior to this illness. She also has a nebulizer but lacks albuterol. She reports feeling winded easily and experiences a tingling sensation and squeaky noise when blowing her nose. Her symptoms tend to worsen at night, around 9 or 10 PM, and when lying down. She has been trying to alleviate this by lying on her stomach or sitting up. She has also been experiencing episodes of low blood sugar. For example, during a recent hike with her sister, her blood sugar dropped to 58 by the time she returned to the car. She has been monitoring her blood sugar regularly. She is uncertain if these episodes are related to the tumor on her pancreas. She is scheduled for a CT scan of her chest and abdomen. MEDICATIONS: Current Outpatient Medications Medication Instructions albuterol HFA 90 mcg/act inhaler 2 puffs, Every 4 hours PRN Albuterol-Budesonide (Airsupra) 90-80 MCG/ACT aerosol 2 puffs, Inhalation, Every 4 hours PRN albuterol 2.5 mg, Nebulization, Every 6 hours PRN azithromycin (Zithromax) 250 MG tablet Take 2 tabs PO x 1 day then 1 tab PO daily x 4 days cholecalciferol (Vitamin D-3) 25 MCG (1000 UT) capsule 2 capsules, Daily Kchpdwmjybw-Upparpaqj-Lznoig (Trelegy Ellipta) 200-62.5-25 MCG/ACT aerosol powder 1 puff, Inhalation, Daily levothyroxine (Synthroid, Levoxyl) 100 MCG tablet TAKE 1 TABLET BY MOUTH EVERY MORNING; TAKE BEFORE MEALS methylPREDNISolone (Medrol Dospak) 4 MG tablets Follow schedule on package instructions promethazine-dextromethorphan (Phenergan-DM) 6.25-15 MG/5ML syrup 5 mL, Oral, Every 6 hours PRN Slynd 4 mg, Oral, Daily topiramate (TOPAMAX) 100 mg, Oral, Nightly ALLERGIES: Allergies Allergen Reactions Bee Venom Hives [...] Social History reviewed. OBJECTIVE: Visit Vitals BP 124/78 (BP Location: Left arm, Patient Position: Sitting, BP Cuff Size: Large adult) Pulse 87 Temp 98.6 F (Temporal) Ht 5' 8 Wt 279 lb 3.2 oz LMP 12/12/2023 SpO2 97% BMI 42.45 kg/m OB Status Having periods Smoking Status Never BSA 2.47 m BP Readings from Last 3 Encounters: 01/08/24 124/78 10/18/23 122/72 10/06/23 110/66 Wt Readings from Last 3 Encounters: 01/08/24 279 lb 3.2 oz 10/18/23 279 lb 10/06/23 279 lb 3.2 oz Physical Exam Physical Exam Vital Signs Oxygen saturation is at 97 percent. General: alert & oriented, NAD Head: NC/AT Oral Cavity: MMM Skin: warm, dry Heart: RRR, No m/r/g, S1S2 nml Lungs: CTA b/l Abdomen: soft, ND/NT, BS wnl Musculoskeletal: normal gait Extremities: no clubbing, cyanosis or edema Neurological: nonfocal Psych: mood/affect full range Results Laboratory Studies Covid test: Negative ASSESSMENT AND PLAN: Assessment & Plan 1. Respiratory Infection. The patient has been experiencing worsening symptoms over the past two weeks, including coughing up green phlegm and vomiting due to severe coughing. She tested negative for COVID-19 but has been exposed to RSV and pneumonia. An antibiotic regimen with Z-Stephan will be initiated to target the suspected mycoplasma bacteria. A cough medicine containing Phenergan will be prescribed to help suppress the cough and alleviate nausea. A round of steroids will also be initiated to reduce inflammation. Refills for the nebulizer, including albuterol, will be sent to [facility] in [place]. 2. Asthma. The patient has been using Trelegy, her regular inhaler, and a nebulizer but has run out of albuterol. She will continue using her current asthma medications, and albuterol will be called in for her nebulizer. 3. Hypoglycemia. The patient has been experiencing low blood sugar levels, particularly after physical activity. She has been monitoring her blood sugar regularly using her mother's old glucometer. She is advised to eat small, frequent meals to help manage her blood sugar levels. She will discuss this further with her oncologist during her upcoming appointment. 4. Pancreatic Tumor. The patient has a known tumor on her pancreas, which may be contributing to her hypoglycemia. She will undergo a CT scan of her chest and abdomen on January 17, 2024, followed by an appointment with her oncologist to review the results and determine the next steps. Assessment/Plan Problem List Items Addressed This Visit Mild intermittent asthma without complication (CMS/HCC) Relevant Medications promethazine-dextromethorphan (Phenergan-DM) 6.25-15 MG/5ML syrup albuterol (2.5 MG/3ML) 0.083% nebulizer solution azithromycin (Zithromax) 250 MG tablet Viral upper respiratory tract infection - Primary Relevant Medications promethazine-dextromethorphan (Phenergan-DM) 6.25-15 MG/5ML syrup albuterol (2.5 MG/3ML) 0.083% nebulizer solution azithromycin (Zithromax) 250 MG tablet Other Visit Diagnoses Non-recurrent acute serous otitis media of right ear Relevant Medications methylPREDNISolone (Medrol Dospak) 4 MG tablets There are no preventive care reminders to display for this patient. documented in this encounter [facility] 12-06-2023 Hospital Discharge instructions Patient Education 12/06/2023 18:47:51 Nonspecific Chest Pain, Adult Nonspecific Chest Pain, Adult Chest pain is [...] caused by something that is not life-threatening. If you have chest pain, it can be hard to know the difference, so it is important to get help right away to make sure that you do not have a serious condition. Some life-threatening causes of chest pain include: Heart attack. A tear in the body's main blood vessel (aortic dissection). Inflammation around your heart (pericarditis). A problem in the lungs, such as a blood clot (pulmonary embolism) or a collapsed lung (pneumothorax). Some non life-threatening causes of chest pain include: Heartburn. Anxiety or stress. Damage to the bones, muscles, and cartilage that make up your chest wall. Pneumonia or bronchitis. Shingles infection (varicella-zoster virus). Your chest pain may come and go. It may also be constant. Your health care provider will do tests and other studies to find the cause of your pain. Treatment will depend on the cause of your chest pain. Follow these instructions at home: Medicines Take xguv-hjq-boinlon and prescription medicines only as told by your health care provider. If you were prescribed an antibiotic medicine, take it as told by your health care provider. Do not stop taking the antibiotic even if you start to feel better. Activity Avoid any activities that cause chest pain. Do not lift anything that is heavier than 10 lb (4.5 kg), or the limit that you are told, until your health care provider says that it is safe. Rest as directed by your health care provider. Return to your normal activities only as told by your health care provider. Ask your health care provider what activities are safe for you. Lifestyle Do not use any products that contain nicotine or tobacco, such as cigarettes, e-cigarettes, and chewing tobacco. If you need help quitting, ask your health care provider. Do not drink alcohol. Make healthy lifestyle changes as recommended. These may include: ?Getting regular exercise. Ask your health care provider to suggest some exercises that are safe for you. ?Eating a heart-healthy diet. This includes plenty of fresh fruits and vegetables, whole grains, low-fat (lean) protein, and low-fat dairy products. A dietitian can help you find healthy eating options. ?Maintaining a healthy weight. ?Managing any other health conditions you may have, such as high blood pressure (hypertension) or diabetes. ?Reducing stress, such as with yoga or relaxation techniques. General instructions Pay attention to any changes in your symptoms. It is up to you to get the results of any tests that were done. Ask your health care provider, or the department that is doing the tests, when your results will be ready. Keep all follow-up visits as told by your health care provider. This is important. You may be asked to go for further testing if your chest pain does not go away. Contact a health care provider if: Your chest pain does not go away. You feel depressed. You have a fever. You notice changes in your symptoms or develop new symptoms. Get help right away if: Your chest pain gets worse. You have a cough that gets worse, or you cough up blood. You have severe pain in your abdomen. You faint. You have sudden, unexplained chest discomfort. You have sudden, unexplained discomfort in your arms, back, neck, or jaw. You have shortness of breath at any time. You suddenly start to sweat, or your skin gets clammy. You feel nausea or you vomit. You suddenly feel lightheaded or dizzy. You have severe weakness, or unexplained weakness or fatigue. Your heart begins to beat quickly, or it feels like it is skipping beats. These symptoms may represent a serious problem that is an emergency. Do not wait to see if the symptoms will go away. Get medical help right away. Call your local emergency services (911 in the [place] Do not drive yourself to the hospital. Summary Chest pain can be caused by a condition that is serious and requires urgent treatment. It may also be caused by something that is not life-threatening. Your health care provider may do lab tests and other studies to find the cause of your pain. Follow your health care provider's instructions on taking medicines, making lifestyle changes, and getting emergency treatment if symptoms become worse. Keep all follow-up visits as told by your health care provider. This includes visits for any further testing if your chest pain does not go away. This information is not intended to replace advice given to you by your health care provider. Make sure you discuss any questions you have with your health care provider. Document Revised: 01/12/2023 Document Reviewed: 01/12/2023 [employer] Patient Education 2023 [employer]. Follow Up Care 12/06/2023 15:44:08 With:Moises Ewing Address:Unknown When:12/09/2023 18:27:27 With:Linnea HACKETT Address: [address] [place] [address]- Business (1) When:Within 3 Day(s) [facility] 12-06-2023 Note ED Patient Education Note Pulmonary Medicine Nonspecific [...] caused by something that is not life-threatening. If you have chest pain, it can [...] these instructions at home: Medicines ? Take kszj-zqb-antamrl and prescription medicines only as told by [...] if symptoms become worse. ? Keep all follo (more content not included)... [facility] 12-06-2023 Evaluation + Plan note Extrac kiki from: Title:ED Note Author:Julio Chung PA-C te:12/06/23 Chest pain (R07.9: Chest natasha n, unspecified) Shortness of breath (R06.02: Shortness of [...] Saturation PT & PTT Rapid COVID Antigen ([facility]) Saline Lock Insert Troponin 0 Hr. Troponin 1 Hr. XR Chest Single View [facility] 08-02-2024 Evaluation + Plan noteExtracted from: Title:ED Note Author:Santos Booker DO Date:10/12 Neck strain (S16.1XXA: Strai n of muscle, fascia and tendon at neck level, initial encounter) Pneumonia (J18.9: Pneumonia, unspecified organism) Orders: albuterol-ipratropium, 3 mL, Soln-Inh, Inhalation, Once, Stop date 10/13/23 8:08:00 EDT, STAT, Start date 10/13/23 8:08:00 EDT dextromethorphan-promethazine, 5 mL, Oral, q6hr for cough, 120 mL, Refill(s) 0, [id number], 173, cm, 10/13/23 7:45:00 EDT, Height/Length Dosing, 124.7, kg, 10/13/23 7:45:00 EDT, Weight Dosing doxycycline, 100 mg = 1 tab(s), Oral, BID, X 7 day(s), # 14 tab(s), Refills(s) 0, Pharmacy: [id number], 173, cm, 10/13/23 7:45:00 EDT, Height/Length Dosing, 124.7, kg, 10/13/23 7:45:00 EDT, Weight Dosing methocarbamol, 750 mg = 1 tab(s), Oral, TID, X 7 day(s), # 21 tab(s), Refills(s) 0, Pharmacy: [id number], 173, cm, 10/13/23 7:45:00 EDT, Height/Length Dosing, 124.7, kg, 10/13/23 7:45:00 EDT, Weight Dosing predniSONE, 3, Oral, Daily, # 15 tab(s), Refills(s) 0, Pharmacy: [id number], 173, cm, 10/13/23 7:45:00 EDT, Height/Length Dosing, 124.7, kg, 10/13/23 7:45:00 EDT, Weight Dosing XR Chest 2 Views [facility] 08-02-2024 Hospital Discharge instructions Follow Up Care 10/13/2023 07:41:30 With:Linnea HACKETT Address: [address] [place], [place] [id number] Business (1) When:Within 3 Day(s) [facility] 03-15-2024 Evaluation + Plan noteExtracted from: Title:ED Note Author:Jean Bullard DO Date :05/26/23 Acute URI (J06.9: Acute uppe r respiratory infection, unspecified) N&V (nausea and vomiting) (R11.2: Nausea with vomiting, unspecified) Orders: albuterol-ipratropium, 3 mL, Soln-Inh, Inhalation, Once, Stop date 05/25/23 23:23:00 EDT, STAT, Start date 05/25/23 23:23:00 EDT brompheniramine/dextromethorphan/PSE, 5 mL, Oral, QID for cold symptoms, 200 mL, Refill(s) 0, [id number], 173, cm, 05/25/23 22:46:00 EDT, Height/Length Dosing, 130.4, kg, 05/25/23 22:46:00 EDT, Weight Dosing brompheniramine/dextromethorphan/PSE, 5 mL, Syrup, Oral, Once, Stop date 05/25/23 23:23:00 EDT, STAT, Start date 05/25/23 23:23:00 EDT dexamethasone, 10 mg = 2.5 mL, Injection, IV Push, Once, Stop date 05/25/23 23:23:00 EDT, STAT, Start date 05/25/23 23:23:00 EDT, 05/25/23 23:23:00 EDT ketorolac, 30 mg = 1 mL, Injection, IV Push, Once, Stop date 05/25/23 23:23:00 EDT, STAT, Start date 05/25/23 23:23:00 EDT, 05/25/23 23:23:00 EDT metoclopramide, 10 mg = 2 mL, Injection, IV Push, Once, Stop date 05/25/23 23:23:00 EDT, STAT, Start date 05/25/23 23:23:00 EDT, 05/25/23 23:23:00 EDT ondansetron, 4 mg = 1 tab(s), Oral, q8hr, # 12 tab(s), Refills(s) 0, Pharmacy: [facility]/pharmacy #[id number], 173, cm, 05/25/23 22:46:00 EDT, Height/Length Dosing, 130.4, kg, 05/25/23 22:46:00 EDT, Weight Dosing Sodium Chloride 0.9% intravenous solution 1,000 mL, 1,000 mL, IV, 983.61 mL/hr, for 30 day(s), Stop date 06/24/23 23:23:00 EDT, STAT, Start date 05/25/23 23:24:00 EDT, 61 minute(s), Total volume (mL): 1,000, 130.4 kg, 2.5, m2 B-Type Natriuretic Peptide Basic Metabolic Panel Beta hCG Qual CBC w/ Auto Diff Continuous Pulse Oximetry ECG 12 Lead Adult ED Cardiac Monitoring eGFR Group A Strep by PCR Influenza A&B Ag Oxygen Therapy PT & PTT Rapid COVID Antigen ([facility]) Rapid Strep w/rfx Saline Lock Insert Troponin 0 Hr. XR Chest Single View [facility]03-15-2024 Hospital Discharge instructions Patient Education 05/26/2023 01:33:30 Upper Respiratory Infection, Adult, Pxgj-gk-Tvkj Upper Respiratory Infection, Adult An upper respiratory infection (URI) affects the nose, throat, and upper airways that lead to the lungs. The most common type of URI is often called the common cold. URIs usually get better on their own, without medical treatment. What are the causes? A URI is caused by a germ (virus). You may catch these germs by: Breathing in droplets from an infected person's cough or sneeze. Touching something that has the germ on it (is contaminated) and then touching your mouth, nose, oreyes. What increases the risk? You are more likely to get a URI if: You are very young or very old. You have close contact with others, such as at work, school, or a health care facility. You smoke. You have long-term (chronic) heart or lung disease. You have a weakened disease-fighting system (immune system). You have nasal allergies or asthma. You have a lot of stress. You have poor nutrition. What are the signs or symptoms? Runny or stuffy (congested) nose. Cough. Sneezing. Sore throat. Headache. Feeling tired (fatigue). Fever. Not wanting to eat as much as usual. Pain in your forehead, behind your eyes, and over your cheekbones (sinus pain). Muscle aches. Redness or irritation of the eyes. Pressure in the ears or face. How is this treated? URIs usually get better on their own within 7 10 days. Medicines cannot cure URIs, but your doctor may recommend certain medicines to help relieve symptoms, such as: Fplj-gds-berfrhn cold medicines. Medicines to reduce coughing (cough suppressants). Coughing is a type of defense against infection that helps to clear the nose, throat, windpipe, and lungs (respiratory system). Take these medicinesonly as told by your doctor. Medicines to lower your fever. Follow these instructions at home: Activity Rest as needed. If you have a fever, stay home from work or school until your fever is gone, or until your doctor says you may return to work or school. ?You should stay home until you cannot spread the infection anymore (you are not contagious). ?Your doctor may have you wear a face mask so you have less risk of spreading the infection. Relieving symptoms Rinse your mouth often with salt water. To make salt water, dissolve 1 tsp (3 6 g) of salt in 1 cup(237 mL) of warm water. Use a cool-mist humidifier to add moisture to the air. This can help you breathe more easily. Eating and drinking Drink enough fluid to keep your pee (urine) pale yellow. Eat soups and other clear broths. General instructions Take vimv-kht-ldpawmg and prescription medicines only as told by your doctor. Do not smoke or use any products that contain nicotine or tobacco. If you need help quitting, ask your doctor. Avoid being where people are smoking (avoid secondhand smoke). Stay up to date on all your shots (immunizations), and get the flu shot every year. Keep all follow-up visits. How to prevent the spread of infection to others Wash your hands with soap and water for at least 20 seconds. If you cannot use soap and water, use hand ultimate hoops scoreboard operator. Avoid touching your mouth, face, eyes, or nose. Cough or sneeze into a tissue or your sleeve or elbow. Do not cough or sneeze into your hand or into the air. Contact a doctor if: You are getting worse, not better. You have any of these: ?A fever or chills. ?Brown or red mucus in your nose. ?Yellow or brown fluid (discharge)coming from your nose. ?Pain in your face, especially when you bend forward. ?Swollen neck glands. ?Pain when you swallow. ?White areas in the back of your throat. Get help right away if: You have shortness of breath that gets worse. You have very bad or constant: ?Headache. ?Ear pain. ?Pain in your forehead, behind your eyes, and over your cheekbones (sinus pain). ?Chest pain. You have long-lasting (chronic) lung disease along with any of these: ?Making high-pitched whistling sounds when you breathe, most often when you breathe out (wheezing). ?Long-lasting cough (more than 14 days). ?Coughing up blood. ?A change in your usual mucus. You have a stiff neck. You have changes in your: ?Vision. ?Hearing. ?Thinking. ?Mood. These symptoms may be an emergency. Get help right away. Call 911. Do not wait to see if the symptoms will go away. Do not drive yourself to the hospital. Summary An upper respiratory infection (URI) is caused by a germ (virus). The most common type of URI is often called the common cold. URIs usually get better within 7 10 days. Take qbme-bdv-jhwsftm and prescription medicines only as told by your doctor. This information is not intended to replace advice given to you by your health care provider. Make sure you discuss any questions you have with your health care provider. Document Revised: 09/29/2021 Document Reviewed: 09/29/2021 [employer] Patient Education 2022 [employer]. 05/26/2023 01:33:30 Nausea and Vomiting, Adult, Lhpf-el-Dixs Nausea and Vomiting, Adult Nausea is feeling that you have an upset stomach and that you are about to vomit. Vomiting is when food in your stomach forcefully comes out of your mouth. Vomiting can make you feel weak. If you vomit, or if you are not able to drink enough fluids, you may not have enough water in your body (get dehydrated). If you do not have enough water in your body, you may: Feel tired. Feel thirsty. Have a dry mouth. Have cracked lips. Pee (urinate) less often. Older adults and people with other diseases or a weak body defense system (immune system) are at higher risk for not having enough water in the body. If you feel like you may vomit or you vomit, it is important to follow instructions from your doctor about how to take care of yourself. Follow these instructions at home: Watch your symptoms for any changes. Tell your doctor about them. Eating and drinking Take an ORS (oral rehydration solution). This is a drink that is sold at pharmacies and stores. Drink clear fluids in small amounts as you are able, such as: ?Water. ?Ice chips. ?Fruit juice that has water added (diluted fruit juice). ?Low-calorie sports drinks. Eat bland, enqw-wx-mgapgk foods in small amounts as you are able, such as: ?Bananas. ?Applesauce. ?Rice. ?Low-fat (lean) meats. ?Colma. ?Crackers. Avoid drinking fluids that have a lot of sugar or caffeine in them. This includes energy drinks, sports drinks, and soda. Avoid alcohol. Avoid spicy or fatty foods. General instructions Take phie-zrp-mwrwlqu and prescription medicines only as told by your doctor. Drink enough fluid to keep your pee (urine) pale yellow. Wash your hands often with soap and water for at least 20 seconds. If you cannot use soap and water, use hand ultimate hoops scoreboard operator. Make sure that everyone in your home washes their hands well and often. Rest at home until you feel better. Watch your condition for any changes. Take slow and deep breaths when you feel like you may vomit. Keep all follow-up visits. Contact a doctor if: Your symptoms get worse. You have new symptoms. You have a fever. You cannot drink fluids without vomiting. You feel like you may vomit for more than 2 days. You feel light-headed or dizzy. You have a headache. You have muscle cramps. You have a rash. You have pain while peeing. Get help right away if: You have pain in your chest, neck, arm, or jaw. You feel very weak or you faint. You vomit again and again. You have vomit that is bright red or looks like black coffee grounds. You have bloody or black poop (stools) or poop that looks like tar. You have a very bad headache, a stiff neck, or both. You have very bad pain, cramping, or bloating in your belly (abdomen). You have trouble breathing. You are breathing very quickly. Your heart is beating very quickly. Your skin feels cold and clammy. You feel confused. You have signs of losing too much water in your body, such as: ?Dark pee, very little pee, or no pee. ?Cracked lips. ?Dry mouth. ?Sunken eyes. ?Sleepiness. ?Weakness. These symptoms may be an emergency. Get help right away. Call 911. Do not wait to see if the symptoms will go away. Do not drive yourself to the hospital. Summary Nausea is feeling that you have an upset stomach and that you are about to vomit. Vomiting is when food in your stomach comes out of your mouth. Follow instructions from your doctor about eating and drinking. Take aybi-mbg-ilgqwbp and prescription medicines only as told by your doctor. Contact your doctor if your symptoms get worse or you have new symptoms. Keep all follow-up visits. This information is not intended to replace advice given to you by your health care provider. Make sure you discuss any questions you have with your health care provider. Document Revised: 09/03/2021 Document Reviewed: 09/03/2021 [employer] Patient Education 2022 [employer]. Follow Up Care 05/25/2023 22:37:43 With:Linnea HACKETT Address: [address] [place] [address] Business (1) When:05/29/2023 Comments:You can use the Bromfed, Zofran every 6 hours as needed for cough, nausea and vomiting. Please follow-up with your primary care doctor in the next 2 to 3 days for further evaluation management. Please return to the ED for any new or worsening symptoms. [facility]02-06-2024 History of Present illness Narrative* DARIN Mclean - 04/18/2023 1:30 PM EST Telehealth Encounter: Verbal consent was obtained from patient for Telehealth Services. Patient Location ([place]) Adina Martinez is a 28 y.o. female presents with chief complaint of No chief complaint on file. HPI: HPI Patient states that she is here for follow up. Went to [facility] for second opinion regarding sarcoma. Has pulmomology appt in one month Patient states has history of migraines, and specialist for sarcoma and wants referral to neurology SUBJECTIVE: MEDICATIONS: Current Outpatient Medications Medication Instructions levothyroxine (SYNTHROID) 100 mcg, Oral, Daily before breakfast ALLERGIES: Allergies Allergen Reactions Bee Venom Hives and Anaphylaxis Raspberry Rash Other Unknown Food Rash Pt allergic to berries SOCIAL HISTORY: Social History Tobacco Use Smoking status: Never Smokeless tobacco: Never Substance Use Topics Alcohol use: Yes Comment: 1-2 drinks of alcohol less than mthly Drug use: Never Depression: Not on file REVIEW OF SYMPTOMS: General: Denies fever, chills, fatigue, CLAUDIO or weight loss/gain CV: Denies CP, palpitations or swelling in legs Resp: denies cough, SOB or wheezing GI: Denies abd pain/n/v/c/d Skin: Denies rash Neuro: Denies LH or dizziness OBJECTIVE: Visit Vitals OB Status Having periods Smoking Status Never General: alert & oriented, NAD Head: NC/AT Oral Cavity: MMM Skin: warm, dry Extremities: no clubbing, cyanosis or edema Neurological: nonfocal Psych: mood/affect full range ASSESSMENT AND PLAN: Assessment/Plan Problem List Items Addressed This Visit Migraines ([facility]) - Primary Relevant Orders Ambulatory referral to Neurology Sarcoma ([facility]) Relevant Orders Ambulatory referral to Neurology documented in this encounterF[facility] [id number] History of Present illness Narrative* Chapito Dean RT(R) - 02/23/2023 3:00 PM EST Radiology Service Progress Note DATE OF SERVICE: February 23, 2023 TIME: 2:53 PM PATIENT IDENTITY VERIFICATION COMPLETED USING TWO (2) STANDARD IDENTIFIERS: Name and Date of confirmed by patient verbally. FALL SCREENING: Has the patient had 2 falls in the last year or 1 fall with injury or currently using an Ambulatory Assistive Device (Walker, Cane, Wheelchair, Crutches, etc.)? No PATIENT GENDER DATA: Female. status: : No status: NO. PATIENT RELEVANT IMPLANT DATA REVIEWED: Yes ALLERGIES: Reviewed and unchanged CONTRAST ALLERGY: NO. EXAM: MRI - CONTRAST TYPE: GROUP II PERIPHERAL IV DATA: Ambulatory: A peripheral IV was started in the Left antecubital site with a Angio cath: 22 gauge. RADIOLOGY DEPARTMENT: MR; Exam(s) Completed: Body: Liver (routine) SIGNATURE: RT Aristeo(Issa) PATIENT NAME: Adina Martinez DATE: February 23, 2023 TIME: 2:53 PM [facility] History of Present illness Narrative* Osiris Laureano Tech - 02/23/2023 2:00 PM EST Radiology Service Progress Note DATE OF SERVICE: February 23, 2023 TIME: 1:54 PM PATIENT IDENTITY VERIFICATION COMPLETED USING TWO (2) STANDARD IDENTIFIERS: Name and Date of confirmed by patient verbally. FALL SCREENING: Has the patient had 2 falls in the last year or 1 fall with injury or currently using an Ambulatory Assistive Device (Walker, Cane, Wheelchair, Crutches, etc.)? No PATIENT GENDER DATA: Female. status: : No status: NO. PATIENT RELEVANT IMPLANT DATA REVIEWED: Not Applicable ALLERGIES: Reviewed and unchanged CONTRAST ALLERGY: NO. EXAM: CT -CONTRAST INDUCED NEPHROPATHY RISK FACTORS: History of Kidney surgery, Kidney neoplasm, Liver disease, and/or any recent Nephrotoxic Chemotherapy or other Nephrotoxic medications CREATININE: Creatinine Date Value Ref Range Status 11/18/2022 0.69 0.58 - 0.96 mg/dL Final Estimated Glomerular Filtration Rate Date Value Ref Range Status 11/18/2022 122 >=60 mL/min/1.73m Final Comment: Estimated Glomerular Filtration Rate (eGFR) is calculated using the 2020 CKD-EPI creatinine equation. This equation utilizes serum creatinine, sex, and age as parameters. The creatinine assay has traceable calibration to isotope dilution- mass spectrometry. Refer to KDIGO guidelines for clinical interpretation. In patients with unstable renal function, e.g. those with acute kidney injury, the eGFRmay not accurately reflect actual GFR. P.O.C.T. RESULTS: Outside Creatinine: 0.7 mg/dl, Calculated GFR 120.7, Date 02/14/23 February 23, 2023 TREATMENT: N/A PERIPHERAL IV DATA: Ambulatory: A peripheral IV was started in the Right antecubital site with a Angio cath/Butterfly: 22 gauge. RADIOLOGY DEPARTMENT: CT; Exam(s) Completed: Chest SIGNATURE: Charissa Kurtz PATIENT NAME: Adina Martinez DATE: February 23, 2023 TIME: 1:54 PM documented in this encounterOhio [facility]12-[facility]23 Evaluation + Plan note Extracted from: Title:ED Note Author:Héctor Christianson DO Date :02/14/23 AP (abdominal pain) (R10.9: Unspecified abdominal pain) Orders: dicyclomine, 10 mg = 1 cap(s), Oral, QID, X 7 day(s), # 28 cap(s), Refills(s) 0, [id number], cm, 02/14/23 2:34:00 EST, Height/Length Dosing, 119.3, kg, 02/14/23 2:34:00 EST, Weight Dosing famotidine, 20 mg = 1 tab(s), Oral, Daily, X 7 day(s), # 7 tab(s), Refills(s) 0, [id number] 173, cm, 02/14/23 2:34:00 EST, Height/Length Dosing, 119.3, kg, 02/14/23 2:34:00 EST, Weight Dosing HYDROmorphone, 0.5 mg = 0.5 mL, Injection, IV Push, Once, Stop date 02/14/23 3:41:00 EST, STAT, Start date 02/14/23 3:41:00 EST, 02/14/23 3:41:00 EST ketorolac, 15 mg = 1 mL, Injection, IV Push, Once, Stop date 02/14/23 2:39:00 EST, STAT, Start date 02/14/23 2:39:00 EST, 02/14/23 2:39:00 EST morphine, 4 mg = 1 mL, Injection, IV Push, Once, Stop date 02/14/23 3:12:00 EST, STAT, Start date 02/14/23 3:12:00 EST, 02/14/23 3:12:00 EST Sodium Chloride 0.9% intravenous solution, 1,000 mL, Soln-IV, IV, Once, Stop date 02/14/23 2:39:00 EST, STAT, Start date 02/14/23 2:39:00 EST, Infuse over 61, minute(s) Automated Diff Basic Metabolic Panel Beta hCG Qual CBC w/ Auto Diff CT Abdomen/Pelvis w/ Contrast eGFR Extra Blue Tube Hepatic Function Panel Lipase Level Saline Lock Insert UA With Cult Reflex Urine Culture Diagnostic Tests Pending * Urine Culture 02/14/23 Future Scheduled Tests Laboratory* Lipid Panel 02/22/22 [facility]12-05-2023 Hospital Discharge instructions Patient Education 02/14/2023 07:14:20 Abdominal Pain, Adult Abdominal Pain, Adult Pain in the abdomen (abdominal pain) can be caused by many things. Often, abdominal pain is not serious and it gets better with no treatment or by being treated at home. However, sometimes abdominal pain is serious. Your health care provider will ask questions about your medical history and do a physical exam to try to determine the cause of your abdominal pain. Follow these instructions at home: Medicines Take lgjt-xge-puavsee and prescription medicines only as told by your health care provider. Do not take a laxative unless told by your health care provider. General instructions Watch your condition for any changes. Drink enough fluid to keep your urine pale yellow. Keep all follow-up visits as told by your health care provider. This is important. Contact a health care provider if: Your abdominal pain changes or gets worse. You are not hungry or you lose weight without trying. You are constipated or have diarrhea for more than 2 3 days. You have pain when you urinate or have a bowel movement. Your abdominal pain wakes you up at night. Your pain gets worse with meals, after eating, or with certain foods. You are vomiting and cannot keep anything down. You have a fever. You have blood in your urine. Get help right away if: Your pain does not go away as soon as your health care provider told you to expect. You cannot stop vomiting. Your pain is only in areas of the abdomen, such as the right side or the left lower portion of the abdomen. Pain on the right side could be caused by appendicitis. You have bloody or black stools, or stools that look like tar. You have severe pain, cramping, or bloating in your abdomen. You have signs of dehydration, such as: ?Dark urine, very little urine, or no urine. ?Cracked lips. ?Dry mouth. ?Sunken eyes. ?Sleepiness. ?Weakness. You have trouble breathing or chest pain. Summary Often, abdominal pain is not serious and it gets better with no treatment or by being treated at home. However, sometimes abdominal pain is serious. Watch your condition for any changes. Take evtv-hbx-wlfamgh and prescription medicines only as told by your health care provider. Contact a health care provider if your abdominal pain changes or gets worse. Get help right away if you have severe pain, cramping, or bloating in your abdomen. This information is not intended to replace advice given to you by your health care provider. Make sure you discuss any questions you have with your health care provider. Document Revised: 04/17/2020 Document Reviewed: 07/08/2019 [employer] Patient Education 2022 [employer]. Follow Up Care 02/14/2023 02:28:51 With:Linnea SYEDMERS Address: [address] [place] [phone] Business (1) When:Within 3 Day(s) [facility]11-29-2023 Miscellaneous Notes* Telephone Encounter - Maddi Ochoa RN - 02/08/2023 11:29 AM EST Note and orders faxed as requested. Maddi Ochoa RN, BSN Specialty Technician Anatomic Pathology * Telephone Encounter - Winsome Blanc - 02/06/2023 1:09 PM EST Adina Juan('s) is calling Jacqueline Sharma MD today regarding Technician Anatomic Pathology - Other (Need office note from 02/[address] Sharma) Anne Marie from Dr. Godwin's office called requesting the office note from 02/03 visit. The note needs to be completed. Once completed, the note will be faxed to [phone] Patient has been identified by name and birthdate. Requesting response back: [phone] (home) [phone] (cell) Winsome Blanc February 06, 2023 [facility] History of Present illness Narrative* Jacqueline Sharma MD - 02/08/2023 10:24 AM EST This consult was requested by Dr. Gabe Godwin for an opinion regarding systemic treatment options for a resected tumor from the abdominal wall and my final recommendations will be communicated to the requesting health care provider by way of a the shared electronic medical record or a letter viathe [employer]. HISTORY OF PRESENT ILLNESS: Ms. Martinez is a 28-year-old female who noted a lump in her abdomen earlier this year. Also reported some weight loss. Initially a CT scan was denied. Eventually went to the emergency room on November 16, 2022. CT scan showed a mass measuring about 7 cm in the right lower abdominal wall abutting the anterior sheath of the rectus muscle. In December 2022, she had resection of the tumor. Reported aspiecemeal resection. Path[facility] without inability to determine a precise histology. 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 Since surgery, she has some occasional bloating and early satiety. Reports constipation. Has a decrease in the weight loss. Occasional nausea. Has noted migraines for the past [address] scan of the chest. Review of systems is otherwise negative. Current Outpatient Medications Medication Sig Dispense Refill levothyroxine (SYNTHROID) 100 mcg tablet Take 100 mcg by mouth daily before breakfast. FLUoxetine (PROZAC) 20 mg capsule Take 20 mg by mouth once daily. metFORMIN (GLUCOPHAGE) 500 mg tablet Take 500 mg by mouth daily with breakfast. Cholecalciferol, Vitamin D3, (VITAMIN D) 25 mcg (1,000 unit) cap Take 1,000 Units by mouth once daily. No current facility-administered medications for this visit. PAST MEDICAL HISTORY Diagnosis Date Hypothyroidism Obesity Polycystic ovarian syndrome PAST SURGICAL HISTORY Procedure Laterality Date PAST SURGICAL HISTORY OF 12/2022 Resection right sided abdominal wall soft tissue mass FAMILY HISTORY: Maternal great aunt with ovarian cancer, maternal great-grandmother with breast cancer, maternal great aunt with lung cancer, paternal grandfather with Hodgkin's, paternal great grandfather with a skin cancer of unknown type, paternal great grandfather with prostate cancer. PHYSICAL EXAM : BP 145/78 Pulse 111 Temp 36 C (96.8 F) Resp 20 Ht 169.9 cm (5' 6.89 ) Wt 118.6 kg (261 lb8 oz) SpO2 98% BMI 41.09 kg/m General Appearance : Patient is in no acute distress. ECOG 1 HEENT : EOMI with no scleral icterus Cardiovascular : Asymptomatic tachycardia Abdomen : Not distended MS: Normal gait. Psych: conversational with normal affect ASSESSMENT/RECOMMENDATIONS A 28-year-old female with recent resection of a tumor from the abdominal wall here today for discussion of adjuvant treatment. We have reviewed the pathology from her resection. Unfortunately, margins cannot be determined based on the removal of tumor in pieces. This does not fit neatly into a defined histology, but looks tofollow within the category of a sarcoma. We have discussed the lack of clear benefit for adjuvant chemotherapy in this setting. She is meeting with general surgery. Tumor board discussion for the role of any radiation, however this is not likely to be recommended. Tumor board discussion for reexcision versus observation. I recommended a CT scan of the chest for completeness and she is worried about her overall risk for cancer and I have recommended a consult with a genetic counselor which I have ordered. Jacqueline Sharma MD, PhD Staff, Hematology and Medical Oncology cc: DARIN Mclean, PA-C [address] [place] [address] Gabe Godwin [address] [place] [address] [address] [place] [address] documented in [facility] History of Present illness Narrative* Leonardo Bray MD - 02/03/2023 8:44 AM EST Consultation requested by Dr. Godwin for an opinion regarding abdominal wall tumor. My final recommendations will be communicated back to the requesting physician by way of shared Medical record or letter to requesting physician via [place] mail. This is a 28-year-old female who presents for the evaluation of an abdominal wall tumor. She felt amass in the right lower quadrant last July. She ultimately had a CT scan in November (directly reviewed) which was notable for a ~[id number] mass in the right lower abdominal wall (deep to Scarpas) abutting the anterior sheath of the rectus muscle. She was taken to the OR in December 2022 for resection, per the operative report it was a piecemeal resection. 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 MDM2 was not amplified and the sarcoma fusion panel did not reveal any abnormalities. She recovered from the resection fairly well but did have some shortness of breath, she had post op nausea and vomiting too. She thinks shemight feel something on the left side now. CT chest directly reviewed - no evidence of metastatic disease. PMHx notable for hypothyroidism, PCOS and obesity Current Outpatient Medications on File Prior to Visit Medication Sig levothyroxine (SYNTHROID) 100 mcg tablet Take 100 mcg by mouth daily before breakfast. FLUoxetine (PROZAC) 20 mg capsule Take 20 mg by mouth once daily. metFORMIN (GLUCOPHAGE) 500 mg tablet Take 500 mg by mouth daily with breakfast. Cholecalciferol, Vitamin D3, (VITAMIN D) 25 mcg (1,000 unit) cap Take 1,000 Units by mouth once daily. No current facility-administered medications on file prior to visit. Heart Reg Breathing comfortably on room air Abdo soft, non tender, healed transverse incision in right mid abdomen, I am unable to clearly palpate a mass on the left Imp: S/P non oncologic resection of abdominal wall mass, the tumor does not fit a clear histologic entity Plan: Check MRI to look for residual disease and as a baseline Based on that and discussion at sarcoma tumor board will decide on observation versus re-excision. Doubt there is a role for adjuvant radiation. Medical Decision Making: Problems: Moderate: New problem with uncertain prognosis Data: Unique test result(s) reviewed: 3+ Unique test(s) ordered: 1 Medical Decision Making Level: 4 - Moderate Leonardo Bray MD documented in [facility] Nurse Note* Mildred Rudd LPN - 02/03/2023 8:18 AM EST Reviewed and confirmed with patient that there were no changes in the the nursing assessment and vitals that were completed on 02/03/2023 during previous provider appointment. documented in [facility] Nurse Note* Brooke Garrett RN - 02/03/2023 7:55 AM EST Additional intake questions: Has the patient had fever, nausea, vomiting, diarrhea, constipation, fatigue for > 1 week? Yes, fatigue and migrains Does the patient have a decreased appetite? No Does patient want to see a Pile Driving Technician? No (yes to any of above refer patient to schedulers for dietitian appointment) ) Does patient have any new or increased numbness or tingling of extremities? No Is patient interested in fertility information? No Does patient need any prescription refills? No Does patient have an advanced directive in place? No, Patient referred to [facility] documented in [facility] Hospital Discharge instructions Patient Education 12/26/2022 18:20:38 Pleurisy Pleurisy Pleurisy is irritation and inflammation of the linings of the lungs (pleura). Pleura cover the outside of the lungs and the inside of the chest wall. Normally, there is a small amount of fluid (pleural fluid) between the pleura that allows the lungsto move in and out smoothly when you breathe. Pleurisy can cause the pleura to be rough and dry andrub together when breathing, making it difficult to breathe or cough. In some cases, pleurisy can be associated with a buildup of fluid between the pleura (pleural effusion). Pleurisy is also called pleuritis. What are the causes? Common causes of this condition include: A lung infection caused by bacteria or a virus. A blood clot that travels to the lungs (pulmonary embolism). Air leaking into the pleural space (pneumothorax). This can happen due to injury or trauma to the chest. Lung cancer or a lung tumor. Heart or chest surgery. Lung damage from inhaling asbestos. A lung reaction to certain medicines, or treatments for cancer, such as chemotherapy or radiation therapy to the chest. Diseases that can cause lung inflammation. These include rheumatoid arthritis, lupus, sickle cell disease, inflammatory bowel disease, and pancreatitis. Sometimes, the cause of this condition is not known. What are the signs or symptoms? The main symptom of this condition is chest pain. The pain is usually on one side. Chest pain may start suddenly and be sharp or stabbing. It may become a constant dull ache. You may also feel pain in your back or shoulder. The pain may get worse when you cough, take deep breaths, or make sudden movements. Other symptoms may include: Shortness of breath. Noisy breathing (wheezing or rattling). Cough. Chills. Fever. Coughing up blood (hemoptysis) or yellowish mucus from your lungs (sputum). Symptoms can be worse with certain positions, such as when lying down or lying to one side. Signs and symptoms of pleurisy may be very similar to the signs and symptoms of a heart attack or inflammation of the heart (pericarditis). How is this diagnosed? This condition may be diagnosed based on: Your medical history, especially if you have heart or lung disease. Your symptoms. A physical exam. Your health care provider will listen to your breathing with a stethoscope to check for a rough, rubbing sound (friction rub) when you breathe. Your breath sounds may be muffled and decreased on the affected side. Tests. You may have: ?Blood tests to check for infections or diseases and to measure the oxygen in your blood. ?An EKG to look at your heart rhythm. ?Imaging tests of your lungs. These may include a chest X-ray, ultrasound, an MRI, or a CT scan. ?A procedure using a needle to remove pleural fluid for testing (thoracentesis). How is this treated? Treatment for this condition depends on the cause. Pleurisy that was caused by a virus usually clears up within 2 weeks. Treatment for pleurisy may include: NSAIDs, such as ibuprofen, to help relieve pain and inflammation. Antibiotic medicines, if your condition was caused by a bacterial infection. Prescription pain medicine or cough medicine. Blood-thinning (anticoagulant) medicines to treat blood clots, if your condition was caused by pulmonary embolism. Removal of pleural fluid (thoracentesis) or air, using a chest tube to vacuum fluid or air from thepleural space. Follow these instructions at home: Medicines Take bwgg-dmz-mkyddrv and prescription medicines only as told by your health care provider. If you were prescribed an antibiotic, take it as told by your health care provider. Do not stop taking the antibiotic even if you start to feel better. If you were prescribed medicines to remove extra fluid from your lungs (diuretics), take them as told by your health care provider. If you were prescribed an anticoagulant, take it exactly as told by your health care provider. Thisis important. Activity Rest and return to your normal activities as told by your health care provider. Ask your health care provider what activities are safe for you. Ask your health care provider if the medicine prescribed to you requires you to avoid driving or using machinery. General instructions Watch for any changes in your condition. Take deep breaths often, even if it is painful. This can help prevent lung infection (pneumonia) and collapse of lung tissue (atelectasis). You may be given a medical laboratory scientist (incentive spirometer) to help exercise your lungs and breathing,to prevent lung complications. Do not use any products that contain nicotine or tobacco, such as cigarettes, e- cigarettes, and chewing tobacco. If you need help quitting, ask your health care provider. Keep all follow-up visits as told by your health care provider. This is important. Contact a health care provider if: You have pain that: ?Gets worse or more frequent. ?Does not get better with medicines you were prescribed. You have a fever or chills. Your cough or shortness of breath is not improving or getting worse. You cough up pus-like (purulent) fluid. Get help right away if: You cough up blood. You have any of the following symptoms that get worse: ?Difficulty breathing with activity, especially minimal activity. ?Shortness of breath. ?Wheezing. You have pain that spreads into your neck, arms, or jaw. You feel dizzy or faint. These symptoms may represent a serious problem that is an emergency. Do not wait to see if the symptoms will go away. Get medical help right away. Call your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 recommend that you see a physical therapist. This person can help youcome up with a safe exercise program. Do any exercises as told by your physical therapist. Lower your stress level. Stress can worsen musculoskeletal pain. Ways to lower stress may include meditation, yoga, cognitive or behavioral therapy, acupuncture, and massage therapy. This information is not intended to replace advice given to you by your health care provider. Make sure you discuss any questions you have with your health care provider. Document Released: 02/27/2006 Document Revised: 02/09/2018 Document Reviewed: 03/29/2017 [employer] Patient Education 2020 [employer]. Follow Up Care 01/04/2022 00:38:27 With:Linnea HACKETT Address: [address] [place] [phone] Business (1) When:Within 3 Day(s) [facility]09-16-2022 Hospital Discharge instructions Patient Education 11/26/2021 20:55:46 Shortness of Breath, Adult Shortness of Breath, Adult Shortness of breath is when a person has trouble breathing enough air or when a person feels like she or he is having trouble breathing in enough air. Shortness of breath could be a sign of a medicalproblem. Follow these instructions at home: Pay attention to any changes in your symptoms. Do not use any products that contain nicotine or tobacco, such as cigarettes, e- cigarettes, and chewing tobacco. Do not smoke. Smoking is a common cause of shortness of breath. If you need help quitting, ask yourhealth care provider. Avoid things that can irritate your airways, such as: ?Mold. ?Dust. ?Air pollution. ?Chemical fumes. ?Things that can cause allergy symptoms (allergens), if you have allergies. Keep your living space clean and free of mold and dust. Rest as needed. Slowly return to your usual activities. Take gjff-rui-kawbvas and prescription medicines only as told by your health care provider. This includes oxygen therapy and inhaled medicines. Keep all follow-up visits as told by your health care provider. This is important. Contact a health care provider if: Your condition does not improve as soon as expected. You have a hard time doing your normal activities, even after you rest. You have new symptoms. Get help right away if: Your shortness of breath gets worse. You have shortness of breath when you are resting. You feel light-headed or you faint. You have a cough that is not controlled with medicines. You cough up blood. You have pain with breathing. You have pain in your chest, arms, shoulders, or abdomen. You have a fever. You cannot walk up stairs or exercise the way that you normally do. These symptoms may represent a serious problem that is an emergency. Do not wait to see if the symptoms will go away. Get medical help right away. Call your local emergency services (911 in the [place] Do not drive yourself to the hospital. Summary Shortness of breath is when a person has trouble breathing enough air. It can be a sign of a medical problem. Avoid things that irritate your lungs, such as smoking, pollution, mold, and dust. Pay attention to changes in your symptoms and contact your health care provider if you have a hard time completing daily activities because of shortness of breath. This information is not intended to replace advice given to you by your health care provider. Make sure you discuss any questions you have with your health care provider. Document Released: 11/22/2001 Document Revised: 07/30/2018 Document Reviewed: 07/30/2018 [employer] Patient Education 2020 [employer]. 11/26/2021 20:55:46 Nonspecific Chest Pain, Adult Nonspecific Chest Pain, Adult Chest pain can be caused by many different conditions. It can be caused by a condition that is life-threatening and requires treatment right away. It can also be caused by something that is not life-threatening. If you have chest pain, it can be hard to know the difference, so it is important to get help right away to make sure that you do not have a serious condition. Some life-threatening causes of chest pain include: Heart attack. A tear in the body's main blood vessel (aortic dissection). Inflammation around your heart (pericarditis). A problem in the lungs, such as a blood clot (pulmonary embolism) or a collapsed lung (pneumothorax). Some non life-threatening causes of chest pain include: Heartburn. Anxiety or stress. Damage to the bones, muscles, and cartilage that make up your chest wall. Pneumonia or bronchitis. Shingles infection (varicella-zoster virus). Chest pain can feel like: Pain or discomfort on the surface of your chest or deep in your chest. Crushing, pressure, aching, or squeezing pain. Burning or tingling. Dull or sharp pain that is worse when you move, cough, or take a deep breath. Pain or discomfort that is also felt in your back, neck, jaw, shoulder, or arm, or pain that spreads to any of these areas. Your chest pain may come and go. It may also be constant. Your health care provider will do lab tests and other studies to find the cause of your pain. Treatment will depend on the cause of your chest pain. Follow these instructions at home: Medicines Take arkk-npa-fwhivvp and prescription medicines only as told by your health care provider. If you were prescribed an antibiotic, take it as told by your health care provider. Do not stop taking the antibiotic even if you start to feel better. Lifestyle Rest as directed by your health care provider. Do not use any products that contain nicotine or tobacco, such as cigarettes and e-cigarettes. If you need help quitting, ask your health care provider. Do not drink alcohol. Make healthy lifestyle choices as recommended. These may include: ?Getting regular exercise. Ask your health care provider to suggest some activities that are safe for you. ?Eating a heart-healthy diet. This includes plenty of fresh fruits and vegetables, whole grains, low-fat (lean) protein, and low-fat dairy products. A dietitian can help you find healthy eating options. ?Maintaining a healthy weight. ?Managing any other health conditions you have, such as high blood pressure (hypertension) or diabetes. ?Reducing stress, such as with yoga or relaxation techniques. General instructions Pay attention to any changes in your symptoms. Tell your health care provider about them or any newsymptoms. Avoid any activities that cause chest pain. Keep all follow-up visits as told by your health care provider. This is important. This includes visits for any further testing if your chest pain does not go away. Contact a health care provider if: Your chest pain does not go away. You feel depressed. You have a fever. Get help right away if: Your chest pain gets worse. You have a cough that gets worse, or you cough up blood. You have severe pain in your abdomen. You faint. You have sudden, unexplained chest discomfort. You have sudden, unexplained discomfort in your arms, back, neck, or jaw. You have shortness of breath at any time. You suddenly start to sweat, or your skin gets clammy. You feel nausea or you vomit. You suddenly feel lightheaded or dizzy. You have severe weakness, or unexplained weakness or fatigue. Your heart begins to beat quickly, or it feels like it is skipping beats. These symptoms may represent a serious problem that is an emergency. Do not wait to see if the symptoms will go away. Get medical help right away. Call your local emergency services (911 in the [place] Do not drive yourself to the hospital. Summary Chest pain can be caused by a condition that is serious and requires urgent treatment. It may also be caused by something that is not life-threatening. If you have chest pain, it is very important to see your health care provider. Your health care provider may do lab tests and other studies to find the cause of your pain. Follow your health care provider's instructions on taking medicines, making lifestyle changes, and getting emergency treatment if symptoms become worse. Keep all follow-up visits as told by your health care provider. This includes visits for any further testing if your chest pain does not go away. This information is not intended to replace advice given to you by your health care provider. Make sure you discuss any questions you have with your health care provider. Document Released: 12/07/2005 Document Revised: 08/30/2018 Document Reviewed: 08/30/2018 [employer] 2020 [employer]. 11/26/2021 20:55:46 Cough, Adult Cough, Adult Coughing is a reflex that clears your throat and your airways (respiratory system). Coughing helps to heal and protect your lungs. It is normal to cough occasionally, but a cough that happens with other symptoms or lasts a long time may be a sign of a condition that needs treatment. An acute cough may only last 2 3 weeks, while a chronic cough may last 8 or more weeks. Coughing is commonly caused by: Infection of the respiratory systemby viruses or bacteria. Breathing in substances that irritate your lungs. Allergies. Asthma. Mucus that runs down the back of your throat (postnasal drip). Smoking. Acid backing up from the stomach into the esophagus (gastroesophageal reflux). Certain medicines. Chronic lung problems. Other medical conditions such as heart failure or a blood clot in the lung (pulmonary embolism). Follow these instructions at home: Medicines Take jths-pwm-naamaiw and prescription medicines only as told by your health care provider. Talk with your health care provider before you take a cough suppressant medicine. Lifestyle Avoid cigarette smoke. Do not use any products that contain nicotine or tobacco, such as cigarettes, e-cigarettes, and chewing tobacco. If you need help quitting, ask your health care provider. Drink enough fluid to keep your urine pale yellow. Avoid caffeine. Do not drink alcohol if your health care provider tells you not to drink. General instructions Pay close attention to changes in your cough. Tell your health care provider about them. Always cover your mouth when you cough. Avoid things that make you cough, such as perfume, candles, cleaning products, or campfire or tobacco smoke. If the air is dry, use a cool mist vaporizer or humidifier in your bedroom or your home to help loosen secretions. If your cough is worse at night, try to sleep in a semi-upright position. Rest as needed. Keep all follow-up visits as told by your health care provider. This is important. Contact a health care provider if you: Have new symptoms. Cough up pus. Have a cough that does not get better after 2 3 weeks or gets worse. Cannot control your cough with cough suppressant medicines and you are losing sleep. Have pain that gets worse or pain that is not helped with medicine. Have a fever. Have unexplained weight loss. Have night sweats. Get help right away if: You cough up blood. You have difficulty breathing. Your heartbeat is very fast. These symptoms may represent a serious problem that is an emergency. Do not wait to see if the symptoms will go away. Get medical help right away. Call your local emergency services (911 in the [place] Do not drive yourself to the hospital. Summary Coughing is a reflex that clears your throat and your airways. It is normal to cough occasionally, but a cough that happens with other symptoms or lasts a long time may be a sign of a condition that needs treatment. Take ilaw-oxl-szebmph and prescription medicines only as told by your health care provider. Always cover your mouth when you cough. Contact a health care provider if you have new symptoms or a cough that does not get better after 23 weeks or gets worse. This information is not intended to replace advice given to you by your health care provider. Make sure you discuss any questions you have with your health care provider. Document Released: 08/26/2011 Document Revised: 03/18/2019 Document Reviewed: 03/18/2019 [employer] Patient Education 2020 [employer]. 11/26/2021 20:55:46 COVID-19: How to Protect Yourself and Others - CDC COVID-19: How to Protect Yourself and Others Know how it spreads There is currently no vaccine to prevent coronavirus disease 2019 (COVID-19). The best way to prevent illness is to avoid being exposed to this virus. The virus is thought to spread mainly from pbaehh-ca-dntorf. ?Between people who are in close contact with one another (within about 6 feet). ?Through respiratory droplets produced when an infected person coughs, sneezes or talks. ?These droplets can land in the mouths or noses of people who are nearby or possibly be inhaled into the lungs. ?Some recent studies have suggested that COVID-19 may be spread by people who are not showing symptoms. Everyone should Clean your hands often Wash your hands often with soap and water for at least 20 seconds especially after you have been es public place, or after blowing your nose, coughing, or sneezing. If soap and water are not readily available, use a hand ultimate hoops scoreboard operator that contains at least 60% alcohol. Cover all surfaces of your hands and rub them together until they feel dry. Avoid touching your eyes, nose, and mouth with unwashed hands. Avoid close contact Limit contact with others as much as possible. Avoid close contact with people who are sick. Put distance between yourself and other people. ?Remember that some people without symptoms may be able to spread virus. ?This is especially important for people who are at higher risk of getting very sick.www.cdc.gov/cor onavirus/2019-ncov/nykk-ckdnr-nurtyqakhen/fuwxeq-yp-nxtnwc-risk.html Cover your mouth and nose with a cloth face cover when around others You could spread COVID-19 to others even if you do not feel sick. Everyone should wear a cloth face covering in public settings and when around people not living in their household, especially when social distancing is difficult to maintain. ?Cloth face coverings should not be placed on young children under age 2, anyone who has trouble breathing, or is unconscious, incapacitated or otherwise unable to remove the mask without assistance. The cloth face cover is meant to protect other people in case you are infected. Do NOT use a facemask meant for a healthcare worker. Continue to keep about 6 feet between yourself and others. The cloth face cover is not a substitutefor social distancing. Cover coughs and sneezes Always cover your mouth and nose with a tissue when you cough or sneeze or use the inside of your elbow. Throw used tissues in the trash. Immediately wash your hands with soap and water for at least 20 seconds. If soap and water are not readily available, clean your hands with a hand ultimate hoops scoreboard operator that contains at least 60% alcohol. Clean and disinfect Clean AND disinfect frequently touched surfaces daily. This includes tables, doorknobs, light switches, countertops, handles, desks, phones, keyboards, toilets, faucets, and sinks. www.cdc.gov/coronav irus/2019-ncov/bxaodht-motdxaz-bcoa/qlkrgehrllxx-fkea-aoky.html If surfaces are dirty, clean them: Use detergent or soap and water prior to disinfection. Then, use a household disinfectant. You can see a list of EPA-registered household disinfectants here. cdc.gov/coronavirus 09/10/2019 This information is not intended to replace advice given to you by your health care provider. Make sure you discuss any questions you have with your health care provider. Document Released: 06/25/2019 Document Revised: 09/19/2019 Document Reviewed: 09/19/2019 [employer] Patient Education 2020 [employer] 11/26/2021 20:55:46 COVID-19 Frequently Asked Questions COVID-19 Frequently Asked Questions COVID-19 (coronavirus disease) is an infection that is caused by a large family of viruses. Some viruses cause illness in people and others cause illness in animals like camels, cats, and bats. In some cases, the viruses that cause illness in animals can spread to humans. Where did the coronavirus come from? In February 2019, [place] told the World Health Organization (WHO) of several cases of lung disease (human respiratory illness). These cases were linked to an open seafood and livestock market in the city of [place]. The link to the seafood and livestock market suggests that the virus may have spread from animals to humans. However, since that first outbreak in February, the virus has also been shownto spread from person to person. What is the name of the disease and the virus? Disease name Early on, this disease was called novel coronavirus. This is because scientists determined that thedisease was caused by a new (novel) respiratory virus. The World Health Organization (WHO) has now named the disease COVID-19, or coronavirus disease. Virus name The virus that causes the disease is called severe acute respiratory syndrome coronavirus 2 (SARS-CoV-2). More information on disease and virus naming World Health Organization (WHO): www.who.int/emergencies/diseases/ynuic-nowypbgmecv-3488/technical-g uidance/jwyurz-yez-dvcqkcaqscb-disease-(covid-2019)-lro-jnq-vaoux-gsmf-bhgafa-da Who is at risk for complications from coronavirus disease? Some people may be at higher risk for complications from coronavirus disease. This includes older adults and people who have chronic diseases, such as heart disease, diabetes, and lung disease. If you are at higher risk for complications, take these extra precautions: Avoid close contact with people who are sick or have a fever or cough. Stay at least 3 6 ft (1 2 m)away from them, if possible. Wash your hands often with soap and water for at least 20 seconds. Avoid touching your face, mouth, nose, or eyes. Keep supplies on hand at home, such as food, medicine, and cleaning supplies. Stay home as much as possible. Avoid social gatherings and travel. How does coronavirus disease spread? The virus that causes coronavirus disease spreads easily from person to person (is contagious). There are also cases of community-spread disease. This means the disease has spread to: People who have no known contact with other infected people. People who have not traveled to areas where there are known cases. It appears to spread from one person to another through droplets from coughing or sneezing. Can I get the virus from touching surfaces or objects? There is still a lot that we do not know about the virus that causes coronavirus disease. Scientists are basing a lot of information on what they know about similar viruses, such as: Viruses cannot generally survive on surfaces for long. They need a human body (host) to survive. It is more likely that the virus is spread by close contact with people who are sick (direct contact), such as through: ?Shaking hands or hugging. ?Breathing in respiratory droplets that travel through the air. This can happen when an infected person coughs or sneezes on or near other people. It is less likely that the virus is spread when a person touches a surface or object that has the virus on it (indirect contact). The virus may be able to enter the body if the person touches a surface or object and then touches his or her face, eyes, nose, or mouth. Can a person spread the virus without having symptoms of the disease? It may be possible for the virus to spread before a person has symptoms of the disease, but this ismost likely not the main way the virus is spreading. It is more likely for the virus to spread by being in close contact with people who are sick and breathing in the respiratory droplets of a sick person's cough or sneeze. What are the symptoms of coronavirus disease? Symptoms vary from person to person and can range from mild to severe. Symptoms may include: Fever. Cough. Tiredness, weakness, or fatigue. Fast breathing or feeling short of breath. These symptoms can appear anywhere from 2 to 14 days after you have been exposed to the virus. If you develop symptoms, call your health care provider. People with severe symptoms may need hospital care. If I am exposed to the virus, how long does it take before symptoms start? Symptoms of coronavirus disease may appear anywhere from 2 to 14 days after a person has been exposed to the virus. If you develop symptoms, call your health care provider. Should I be tested for this virus? Your health care provider will decide whether to test you based on your symptoms, history of exposure, and your risk factors. How does a health care provider test for this virus? Health care providers will collect samples to send for testing. Samples may include: Taking a swab of fluid from the nose. Taking fluid from the lungs by having you cough up mucus (sputum) into a sterile cup. Taking a blood sample. Taking a stool or urine sample. Is there a treatment or vaccine for this virus? Currently, there is no vaccine to prevent coronavirus disease. Also, there are no medicines like antibiotics or antivirals to treat the virus. A person who becomes sick is given supportive care, which means rest and fluids. A person may also relieve his or her symptoms by using tfet-enx-dolakax medicines that treat sneezing, coughing, and runny nose. These are the same medicines that a person takes for the common cold. If you develop symptoms, call your health care provider. People with severe symptoms may need hospital care. What can I do to protect myself and my family from this virus? You can protect yourself and your family by taking the same actions that you would take to prevent the spread of other viruses. Take the following actions: Wash your hands often with soap and water for at least 20 seconds. If soap and water are not available, use alcohol-based hand ultimate hoops scoreboard operator. Avoid touching your face, mouth, nose, or eyes. Cough or sneeze into a tissue, sleeve, or elbow. Do not cough or sneeze into your hand or the air. ?If you cough or sneeze into a tissue, throw it away immediately and wash your hands. Disinfect objects and surfaces that you frequently touch every day. Avoid close contact with people who are sick or have a fever or cough. Stay at least 3 6 ft (1 2 m)away from them, if possible. Stay home if you are sick, except to get medical care. Call your health care provider before you get medical care. Make sure your vaccines are up to date. Ask your health care provider what vaccines you need. What should I do if I need to travel? Follow travel recommendations from your local health authority, the CDC, and WHO. Travel information and advice Centers for Disease Control and Prevention (CDC): www.cdc.gov/coronavirus/2019-ncov/travelers/index.html World Health Organization (WHO): www.who.int/emergencies/diseases/dbtkv-hkezxrsluxh-2809/travel-advice Know the risks and take action to protect your health You are at higher risk of getting coronavirus disease if you are traveling to areas with an outbreak or if you are exposed to travelers from areas with an outbreak. Wash your hands often and practice good hygiene to lower the risk of catching or spreading the virus. What should I do if I am sick? General instructions to stop the spread of infection Wash your hands often with soap and water for at least 20 seconds. If soap and water are not available, use alcohol-based hand ultimate hoops scoreboard operator. Cough or sneeze into a tissue, sleeve, or elbow. Do not cough or sneeze into your hand or the air. If you cough or sneeze into a tissue, throw it away immediately and wash your hands. Stay home unless you must get medical care. Call your health care provider or local health authority before you get medical care. Avoid public areas. Do not take public transportation, if possible. If you can, wear a mask if you must go out of the house or if you are in close contact with someonewho is not sick. Keep your home clean Disinfect objects and surfaces that are frequently touched every day. This may include: ?Counters and tables. ?Doorknobs and light switches. ?Sinks and faucets. ?Electronics such as phones, remote controls, keyboards, computers, and tablets. Wash dishes in hot, soapy water or use a patient insurance clerk. Air-dry your dishes. Wash laundry in hot water. Prevent infecting other household members Let healthy household members care for children and pets, if possible. If you have to care for children or pets, wash your hands often and wear a mask. Sleep in a different bedroom or bed, if possible. Do not share personal items, such as razors, toothbrushes, deodorant, jimenez, brushes, towels, and washcloths. Where to find more information Centers for Disease Control and Prevention (CDC) Information and news updates: www.cdc.gov/coronavirus/2019-ncov World Health Organization (WHO) Information and news updates: www.who.int/emergencies/diseases/hgffg-bbhfrewifnr-3757 Coronavirus health topic: www.who.int/health-topics/coronavirus Questions and answers on COVID-19: www.who.int/news-room/q-a-detail/u-m-rtlsblqhhzdju Global tracker: who.[employer] [place] [employer] (AAP) Information for families: www.healthychildren.org/[place]/health-issues/conditions/chest-lungs/Pages /1700-Azijm-Qxwpxxeeiso.aspx The coronavirus situation is changing rapidly. Check your local health authority website or the CDCand WHO websites for updates and news. When should I contact a health care provider? Contact your health care provider if you have symptoms of an infection, such as fever or cough, andyou: ?Have been near anyone who is known to have coronavirus disease. ?Have come into contact with a person who is suspected to have coronavirus disease. ?Have traveled outside of the country. When should I get emergency medical care? Get help right away by calling your local emergency services (911 in the [place] if you have: ?Trouble breathing. ?Pain or pressure in your chest. ?Confusion. ?Blue-tinged lips and fingernails. ?Difficulty waking from sleep. ?Symptoms that get worse. Let the emergency medical personnel know if you think you have coronavirus disease. Summary A new respiratory virus is spreading from person to person and causing COVID-19 (coronavirus disease). The virus that causes COVID-19 appears to spread easily. It spreads from one person to another through droplets from coughing or sneezing. Older adults and those with chronic diseases are at higher risk of disease. If you are at higher risk for complications, take extra precautions. There is currently no vaccine to prevent coronavirus disease. There are no medicines, such as antibiotics or antivirals, to treat the virus. You can protect yourself and your family by washing your hands often, avoiding touching your face, and covering your coughs and sneezes. This information is not intended to replace advice given to you by your health care provider. Make sure you discuss any questions you have with your health care provider. Document Released: 06/25/2019 Document Revised: 06/25/2019 Document Reviewed: 06/25/2019 [employer] Patient Education 2019 [employer]. 11/26/2021 20:55:46 COVID-19 COVID-19 COVID-19 is a respiratory infection that is caused by a virus called severe acute respiratory syndrome coronavirus 2 (SARS-CoV-2). The disease is also known as coronavirus disease or novel coronavirus. In some people, the virus may not cause any symptoms. In others, it may cause a serious infection. The infection can get worse quickly and can lead to complications, such as: Pneumonia, or infection of the lungs. Acute respiratory distress syndrome or ARDS. This is fluid build-up in the lungs. Acute respiratory failure. This is a condition in which there is not enough oxygen passing from thelungs to the body. Sepsis or septic shock. This is a serious bodily reaction to an infection. Blood clotting problems. Secondary infections due to bacteria or fungus. The virus that causes COVID-19 is contagious. This means that it can spread from person to person through droplets from coughs and sneezes (respiratory secretions). What are the causes? This illness is caused by a virus. You may catch the virus by: Breathing in droplets from an infected person's cough or sneeze. Touching something, like a table or a doorknob, that was exposed to the virus (contaminated) and then touching your mouth, nose, or eyes. What increases the risk? Risk for infection You are more likely to be infected with this virus if you: Live in or travel to an area with a COVID-19 outbreak. Come in contact with a sick person who recently traveled to an area with a COVID-19 outbreak. Provide care for or live with a person who is infected with COVID-19. Risk for serious illness You are more likely to become seriously ill from the virus if you: Are 65 years of age or older. Have a long-term disease that lowers your body's ability to fight infection (immunocompromised). Live in a longterm or long-term care facility. Have a long-term (chronic) disease such as: ?Chronic lung disease, including chronic obstructive pulmonary disease or asthma ?Heart disease. ?Diabetes. ?Chronic kidney disease. ?Liver disease. Are obese. What are the signs or symptoms? Symptoms of this condition can range from mild to severe. Symptoms may appear any time from 2 to 14days after being exposed to the virus. They include: A fever. A cough. Difficulty breathing. Chills. Muscle pains. A sore throat. Loss of taste or smell. Some people may also have stomach problems, such as nausea, vomiting, or diarrhea. Other people may not have any symptoms of COVID-19. How is this diagnosed? This condition may be diagnosed based on: Your signs and symptoms, especially if: ?You live in an area with a COVID-19 outbreak. ?You recently traveled to or from an area where the virus is common. ?You provide care for or live with a person who was diagnosed with COVID-19. A physical exam. Lab tests, which may include: ?A nasal swab to take a sample of fluid from your nose. ?A throat swab to take a sample of fluid from your throat. ?A sample of mucus from your lungs (sputum). ?Blood tests. Imaging tests, which may include, X-rays, CT scan, or ultrasound. How is this treated? At present, there is no medicine to treat COVID-19. Medicines that treat other diseases are being used on a trial basis to see if they are effective against COVID-19. Your health care provider will talk with you about ways to treat your symptoms. For most people, the infection is mild and can be managed at home with rest, fluids, and oqvc-sre-enuzhxi medicines. Treatment for a serious infection usually takes places in a hospital intensive care unit (ICU). It may include one or more of the following treatments. These treatments are given until your symptoms improve. Receiving fluids and medicines through an IV. Supplemental oxygen. Extra oxygen is given through a tube in the nose, a face mask, or a carranza. Positioning you to lie on your stomach (prone position). This makes it easier for oxygen to get into the lungs. Continuous positive airway pressure (CPAP) or bi-level positive airway pressure (BPAP) machine. This treatment uses mild air pressure to keep the airways open. A tube that is connected to a motor delivers oxygen to the body. Ventilator. This treatment moves air into and out of the lungs by using a tube that is placed in your windpipe. Tracheostomy. This is a procedure to create a hole in the neck so that a breathing tube can be inserted. Extracorporeal membrane oxygenation (ECMO). This procedure gives the lungs a chance to recover by taking over the functions of the heart and lungs. It supplies oxygen to the body and removes carbon dioxide. Follow these instructions at home: Lifestyle If you are sick, stay home except to get medical care. Your health care provider will tell you how long to stay home. Call your health care provider before you go for medical care. Rest at home as told by your health care provider. Do not use any products that contain nicotine or tobacco, such as cigarettes, e- cigarettes, and chewing tobacco. If you need help quitting, ask your health care provider. Return to your normal activities as told by your health care provider. Ask your health care provider what activities are safe for you. General instructions Take ngoo-ghz-loyxogn and prescription medicines only as told by your health care provider. Drink enough fluid to keep your urine pale yellow. Keep all follow-up visits as told by your health care provider. This is important. How is this prevented? There is no vaccine to help prevent COVID-19 infection. However, there are steps you can take to protect yourself and others from this virus. To protect yourself: Do not travel to areas where COVID-19 is a risk. The areas where COVID-19 is reported change often.To identify high-risk areas and travel restrictions, check the CDC travel website: wwwnc.cdc.gov/travel/notices If you live in, or must travel to, an area where COVID-19 is a risk, take precautions to avoid infection. ?Stay away from people who are sick. ?Wash your hands often with soap and water for 20 seconds. If soap and water are not available, usean alcohol-based hand ultimate hoops scoreboard operator. ?Avoid touching your mouth, face, eyes, or nose. ?Avoid going out in public, follow guidance from your state and local health authorities. ?If you must go out in public, wear a cloth face covering or face mask. ?Disinfect objects and surfaces that are frequently touched every day. This may include: ?Counters and tables. ?Doorknobs and light switches. ?Sinks and faucets. ?Electronics, such as phones, remote controls, keyboards, computers, and tablets. To protect others: If you have symptoms of COVID-19, take steps to prevent the virus from spreading to others. If you think you have a COVID-19 infection, contact your health care provider right away. Tell yourhealth care team that you think you may have a COVID-19 infection. Stay home. Leave your house only to seek medical care. Do not use public transport. Do not travel while you are sick. Wash your hands often with soap and water for 20 seconds. If soap and water are not available, use alcohol-based hand ultimate hoops scoreboard operator. Stay away from other members of your household. Let healthy household members care for children andpets, if possible. If you have to care for children or pets, wash your hands often and wear a mask.If possible, stay in your own room, separate from others. Use a different bathroom. Make sure that all people in your household wash their hands well and often. Cough or sneeze into a tissue or your sleeve or elbow. Do not cough or sneeze into your hand or into the air. Wear a cloth face covering or face mask. Where to find more information Centers for Disease Control and Prevention: www.cdc.gov/coronavirus/2019-ncov/index.html World Health Organization: www.who.int/health-topics/coronavirus Contact a health care provider if: You live in or have traveled to an area where COVID-19 is a risk and you have symptoms of the infection. You have had contact with someone who has COVID-19 and you have symptoms of the infection. Get help right away if: You have trouble breathing. You have pain or pressure in your chest. You have confusion. You have bluish lips and fingernails. You have difficulty waking from sleep. You have symptoms that get worse. These symptoms may represent a serious problem that is an emergency. Do not wait to see if the symptoms will go away. Get medical help right away. Call your local emergency services (911 in the [place] Do not drive yourself to the hospital. Let the emergency medical personnel know if you think you have COVID-19. Summary COVID-19 is a respiratory infection that is caused by a virus. It is also known as coronavirus disease or novel coronavirus. It can cause serious infections, such as pneumonia, acute respiratory distress syndrome, acute respiratory failure, or sepsis. The virus that causes COVID-19 is contagious. This means that it can spread from person to person through droplets from coughs and sneezes. You are more likely to develop a serious illness if you are 65 years of age or older, have a weak immunity, live in a longterm, or have chronic disease. There is no medicine to treat COVID-19. Your health care provider will talk with you about ways to treat your symptoms. Take steps to protect yourself and others from infection. Wash your hands often and disinfect objects and surfaces that are frequently touched every day. Stay away from people who are sick and wear amask if you are sick. This information is not intended to replace advice given to you by your health care provider. Make sure you discuss any questions you have with your health care provider. Document Released: 04/04/2019 Document Revised: 07/25/2019 Document Reviewed: 04/04/2019 [employer] Patient Education 2020 [employer] Follow Up Care 11/26/2021 18:05:35 With:Nickolas Isaacs Address: [address] [place] [address] [facility] [place] [address] Business (1) When:11/29/2021 20:25:56 Comments:Follow-up with your primary care provider in 3 to 5 days. If symptoms worsen, do not improve, or new symptoms arise please report back to emergency department for further evaluation. [facility]09-15-2022 Hospital Discharge instructions Patient Education 11/24/2021 23:34:54 Shortness of Breath, Adult, Etjr-fs-Yhcw Shortness of Breath, Adult Shortness of breath means you have trouble breathing. Shortness of breath could be a sign of a medical problem. Follow these instructions at home: Watch for any changes in your symptoms. Do not use any products that contain nicotine or tobacco, such as cigarettes, e- cigarettes, and chewing tobacco. Do not smoke. Smoking can cause shortness of breath. If you need help to quit smoking, ask your doctor. Avoid things that can make it harder to breathe, such as: ?Mold. ?Dust. ?Air pollution. ?Chemical smells. ?Things that can cause allergy symptoms (allergens), if you have allergies. Keep your living space clean. Use products that help remove mold and dust. Rest as needed. Slowly return to your normal activities. Take wstc-gdj-kvffqot and prescription medicines only as told by your doctor. This includes oxygen therapy and inhaled medicines. Keep all follow-up visits as told by your doctor. This is important. Contact a doctor if: Your condition does not get better as soon as expected. You have a hard time doing your normal activities, even after you rest. You have new symptoms. Get help right away if: Your shortness of breath gets worse. You have trouble breathing when you are resting. You feel light-headed or you pass out (faint). You have a cough that is not helped by medicines. You cough up blood. You have pain with breathing. You have pain in your chest, arms, shoulders, or belly (abdomen). You have a fever. You cannot walk up stairs. You cannot exercise the way you normally do. These symptoms may represent a serious problem that is an emergency. Do not wait to see if the symptoms will go away. Get medical help right away. Call your local emergency services (911 in the [place] Do not drive yourself to the hospital. Summary Shortness of breath is when you have trouble breathing enough air. It can be a sign of a medical problem. Avoid things that make it hard for you to breathe, such as smoking, pollution, mold, and dust. Watch for any changes in your symptoms. Contact your doctor if you do not get better or you get worse. This information is not intended to replace advice given to you by your health care provider. Make sure you discuss any questions you have with your health care provider. Document Released: 08/15/2008 Document Revised: 07/30/2018 Document Reviewed: 07/30/2018 [employer] Patient Education 2020 [employer]. 11/24/2021 23:34:54 Nonspecific Chest Pain, Adult, Iyxl-du-Wstv Nonspecific Chest Pain Chest pain can be caused by many different conditions. Some causes of chest pain can be life-threatening. These will require treatment right away. Serious causes of chest pain include: Heart attack. A tear in the body's main blood vessel. Redness and swelling (inflammation) around your heart. Blood clot in your lungs. Other causes of chest pain may not be so serious. These include: Heartburn. Anxiety or stress. Damage to bones or muscles in your chest. Lung infections. Chest pain can feel like: Pain or discomfort in your chest. Crushing, pressure, aching, or squeezing pain. Burning or tingling. Dull or sharp pain that is worse when you move, cough, or take a deep breath. Pain or discomfort that is also felt in your back, neck, jaw, shoulder, or arm, or pain that spreads to any of these areas. It is hard to know whether your pain is caused by something that is serious or something that is not so serious. So it is important to see your doctor right away if you have chest pain. Follow these instructions at home: Medicines Take vnyq-tkz-aoinwlq and prescription medicines only as told by your doctor. If you were prescribed an antibiotic medicine, take it as told by your doctor. Do not stop taking the antibiotic even if you start to feel better. Lifestyle Rest as told by your doctor. Do not use any products that contain nicotine or tobacco, such as cigarettes, e- cigarettes, and chewing tobacco. If you need help quitting, ask your doctor. Do not drink alcohol. Make lifestyle changes as told by your doctor. These may include: ?Getting regular exercise. Ask your doctor what activities are safe for you. ?Eating a heart-healthy diet. A diet and nutritionist public health (dietitian) can help you to learn healthy eating options. ?Staying at a healthy weight. ?Treating diabetes or high blood pressure, if needed. ?Lowering your stress. Activities such as yoga and relaxation techniques can help. General instructions Pay attention to any changes in your symptoms. Tell your doctor about them or any new symptoms. Avoid any activities that cause chest pain. Keep all follow-up visits as told by your doctor. This is important. You may need more testing if your chest pain does not go away. Contact a doctor if: Your chest pain does not go away. You feel depressed. You have a fever. Get help right away if: Your chest pain is worse. You have a cough that gets worse, or you cough up blood. You have very bad (severe) pain in your belly (abdomen). You pass out (faint). You have either of these for no clear reason: ?Sudden chest discomfort. ?Sudden discomfort in your arms, back, neck, or jaw. You have shortness of breath at any time. You suddenly start to sweat, or your skin gets clammy. You feel sick to your stomach (nauseous). You throw up (vomit). You suddenly feel lightheaded or dizzy. You feel very weak or tired. Your heart starts to beat fast, or it feels like it is skipping beats. These symptoms may be an emergency. Do not wait to see if the symptoms will go away. Get medical help right away. Call your local emergency services (911 in the [place] Do not drive yourself to the hospital. Summary Chest pain can be caused by many different conditions. The cause may be serious and need treatment right away. If you have chest pain, see your doctor right away. Follow your doctor's instructions for taking medicines and making lifestyle changes. Keep all follow-up visits as told by your doctor. This includes visits for any further testing if your chest pain does not go away. Be sure to know the signs that show that your condition has become worse. Get help right away if you have these symptoms. This information is not intended to replace advice given to you by your health care provider. Make sure you discuss any questions you have with your health care provider. Document Released: 08/15/2008 Document Revised: 08/30/2018 Document Reviewed: 08/30/2018 [employer] Patient Education 2020 [employer] 11/24/2021 23:34:54 COVID-19: How to Protect Yourself and Others - [facility] COVID-19: How to Protect Yourself and Others Know how it spreads There is currently no vaccine to prevent coronavirus disease 2019 (COVID-19). The best way to prevent illness is to avoid being exposed to this virus. The virus is thought to spread mainly from eabhps-tu-kdemhj. ?Between people who are in close contact with one another (within about 6 feet). ?Through respiratory droplets produced when an infected person coughs, sneezes or talks. ?These droplets can land in the mouths or noses of people who are nearby or possibly be inhaled into the lungs. ?Some recent studies have suggested that COVID-19 may be spread by people who are not showing symptoms. Everyone should Clean your hands often Wash your hands often with soap and water for at least 20 seconds especially after you have been es public place, or after blowing your nose, coughing, or sneezing. If soap and water are not readily available, use a hand ultimate hoops scoreboard operator that contains at least 60% alcohol. Cover all surfaces of your hands and rub them together until they feel dry. Avoid touching your eyes, nose, and mouth with unwashed hands. Avoid close contact Limit contact with others as much as possible. Avoid close contact with people who are sick. Put distance between yourself and other people. ?Remember that some people without symptoms may be able to spread virus. ?This is especially important for people who are at higher risk of getting very sick.www.cdc.gov/cor onavirus/2019-ncov/yhqa-fbbjw-rtssxmlohhq/fiiloo-jf-uuibej-risk.html Cover your mouth and nose with a cloth face cover when around others You could spread COVID-19 to others even if you do not feel sick. Everyone should wear a cloth face covering in public settings and when around people not living in their household, especially when social distancing is difficult to maintain. ?Cloth face coverings should not be placed on young children under age 2, anyone who has trouble breathing, or is unconscious, incapacitated or otherwise unable to remove the mask without assistance. The cloth face cover is meant to protect other people in case you are infected. Do NOT use a facemask meant for a healthcare worker. Continue to keep about 6 feet between yourself and others. The cloth face cover is not a substitutefor social distancing. Cover coughs and sneezes Always cover your mouth and nose with a tissue when you cough or sneeze or use the inside of your elbow. Throw used tissues in the trash. Immediately wash your hands with soap and water for at least 20 seconds. If soap and water are not readily available, clean your hands with a hand ultimate hoops scoreboard operator that contains at least 60% alcohol. Clean and disinfect Clean AND disinfect frequently touched surfaces daily. This includes tables, doorknobs, light switches, countertops, handles, desks, phones, keyboards, toilets, faucets, and sinks. www.cdc.gov/coronav irus/2019-ncov/pzmmklj-lqhscmc-elhn/midwlrnqbcnl-kvjr-rcrp.html If surfaces are dirty, clean them: Use detergent or soap and water prior to disinfection. Then, use a household disinfectant. You can see a list of EPA-registered household disinfectants here. cdc.gov/coronavirus 09/10/2019 This information is not intended to replace advice given to you by your health care provider. Make sure you discuss any questions you have with your health care provider. Document Released: 06/25/2019 Document Revised: 09/19/2019 Document Reviewed: 09/19/2019 [employer] Patient Education 2019 [employer] 11/24/2021 23:34:54 COVID-19 Frequently Asked Questions COVID-19 Frequently Asked Questions COVID-19 (coronavirus disease) is an infection that is caused by a large family of viruses. Some viruses cause illness in people and others cause illness in animals like camels, cats, and bats. In some cases, the viruses that cause illness in animals can spread to humans. Where did the coronavirus come from? In February 2019, [place] told the World Health Organization (WHO) of several cases of lung disease (human respiratory illness). These cases were linked to an open seafood and livestock market in the city of [place]. The link to the seafood and livestock market suggests that the virus may have spread from animals to humans. However, since that first outbreak in February, the virus has also been shownto spread from person to person. What is the name of the disease and the virus? Disease name Early on, this disease was called novel coronavirus. This is because scientists determined that thedisease was caused by a new (novel) respiratory virus. The World Health Organization (WHO) has now named the disease COVID-19, or coronavirus disease. Virus name The virus that causes the disease is called severe acute respiratory syndrome coronavirus 2 (SARS-CoV-2). More information on disease and virus naming World Health Organization (WHO): www.who.int/emergencies/diseases/riwrs-xukjtdzyuni-8802/technical-g uidance/enpqic-fiw-akacyciemyx-disease-(covid-2019)-uue-zad-jhdyr-gyua-risfsd-cs Who is at risk for complications from coronavirus disease? Some people may be at higher risk for complications from coronavirus disease. This includes older adults and people who have chronic diseases, such as heart disease, diabetes, and lung disease. If you are at higher risk for complications, take these extra precautions: Avoid close contact with people who are sick or have a fever or cough. Stay at least 3 6 ft (1 2 m)away from them, if possible. Wash your hands often with soap and water for at least 20 seconds. Avoid touching your face, mouth, nose, or eyes. Keep supplies on hand at home, such as food, medicine, and cleaning supplies. Stay home as much as possible. Avoid social gatherings and travel. How does coronavirus disease spread? The virus that causes coronavirus disease spreads easily from person to person (is contagious). There are also cases of community-spread disease. This means the disease has spread to: People who have no known contact with other infected people. People who have not traveled to areas where there are known cases. It appears to spread from one person to another through droplets from coughing or sneezing. Can I get the virus from touching surfaces or objects? There is still a lot that we do not know about the virus that causes coronavirus disease. Scientists are basing a lot of information on what they know about similar viruses, such as: Viruses cannot generally survive on surfaces for long. They need a human body (host) to survive. It is more likely that the virus is spread by close contact with people who are sick (direct contact), such as through: ?Shaking hands or hugging. ?Breathing in respiratory droplets that travel through the air. This can happen when an infected person coughs or sneezes on or near other people. It is less likely that the virus is spread when a person touches a surface or object that has the virus on it (indirect contact). The virus may be able to enter the body if the person touches a surface or object and then touches his or her face, eyes, nose, or mouth. Can a person spread the virus without having symptoms of the disease? It may be possible for the virus to spread before a person has symptoms of the disease, but this ismost likely not the main way the virus is spreading. It is more likely for the virus to spread by being in close contact with people who are sick and breathing in the respiratory droplets of a sick person's cough or sneeze. What are the symptoms of coronavirus disease? Symptoms vary from person to person and can range from mild to severe. Symptoms may include: Fever. Cough. Tiredness, weakness, or fatigue. Fast breathing or feeling short of breath. These symptoms can appear anywhere from 2 to 14 days after you have been exposed to the virus. If you develop symptoms, call your health care provider. People with severe symptoms may need hospital care. If I am exposed to the virus, how long does it take before symptoms start? Symptoms of coronavirus disease may appear anywhere from 2 to 14 days after a person has been exposed to the virus. If you develop symptoms, call your health care provider. Should I be tested for this virus? Your health care provider will decide whether to test you based on your symptoms, history of exposure, and your risk factors. How does a health care provider test for this virus? Health care providers will collect samples to send for testing. Samples may include: Taking a swab of fluid from the nose. Taking fluid from the lungs by having you cough up mucus (sputum) into a sterile cup. Taking a blood sample. Taking a stool or urine sample. Is there a treatment or vaccine for this virus? Currently, there is no vaccine to prevent coronavirus disease. Also, there are no medicines like antibiotics or antivirals to treat the virus. A person who becomes sick is given supportive care, which means rest and fluids. A person may also relieve his or her symptoms by using rxnn-sik-fxezokg medicines that treat sneezing, coughing, and runny nose. These are the same medicines that a person takes for the common cold. If you develop symptoms, call your health care provider. People with severe symptoms may need hospital care. What can I do to protect myself and my family from this virus? You can protect yourself and your family by taking the same actions that you would take to prevent the spread of other viruses. Take the following actions: Wash your hands often with soap and water for at least 20 seconds. If soap and water are not available, use alcohol-based hand ultimate hoops scoreboard operator. Avoid touching your face, mouth, nose, or eyes. Cough or sneeze into a tissue, sleeve, or elbow. Do not cough or sneeze into your hand or the air. ?If you cough or sneeze into a tissue, throw it away immediately and wash your hands. Disinfect objects and surfaces that you frequently touch every day. Avoid close contact with people who are sick or have a fever or cough. Stay at least 3 6 ft (1 2 m)away from them, if possible. Stay home if you are sick, except to get medical care. Call your health care provider before you get medical care. Make sure your vaccines are up to date. Ask your health care provider what vaccines you need. What should I do if I need to travel? Follow travel recommendations from your local health authority, the CDC, and WHO. Travel information and advice Centers for Disease Control and Prevention (CDC): www.cdc.gov/coronavirus/2019-ncov/travelers/index.html World Health Organization (WHO): www.who.int/emergencies/diseases/xcenz-ykgqzcmdert-4014/travel-advice Know the risks and take action to protect your health You are at higher risk of getting coronavirus disease if you are traveling to areas with an outbreak or if you are exposed to travelers from areas with an outbreak. Wash your hands often and practice good hygiene to lower the risk of catching or spreading the virus. What should I do if I am sick? General instructions to stop the spread of infection Wash your hands often with soap and water for at least 20 seconds. If soap and water are not available, use alcohol-based hand ultimate hoops scoreboard operator. Cough or sneeze into a tissue, sleeve, or elbow. Do not cough or sneeze into your hand or the air. If you cough or sneeze into a tissue, throw it away immediately and wash your hands. Stay home unless you must get medical care. Call your health care provider or local health authority before you get medical care. Avoid public areas. Do not take public transportation, if possible. If you can, wear a mask if you must go out of the house or if you are in close contact with someonewho is not sick. Keep your home clean Disinfect objects and surfaces that are frequently touched every day. This may include: ?Counters and tables. ?Doorknobs and light switches. ?Sinks and faucets. ?Electronics such as phones, remote controls, keyboards, computers, and tablets. Wash dishes in hot, soapy water or use a patient insurance clerk. Air-dry your dishes. Wash laundry in hot water. Prevent infecting other household members Let healthy household members care for children and pets, if possible. If you have to care for children or pets, wash your hands often and wear a mask. Sleep in a different bedroom or bed, if possible. Do not share personal items, such as razors, toothbrushes, deodorant, jimenez, brushes, towels, and washcloths. Where to find more information Centers for Disease Control and Prevention (CDC) Information and news updates: www.cdc.gov/coronavirus/2019-ncov World Health Organization (WHO) Information and news updates: www.who.int/emergencies/diseases/nmdtg-oebnoacbayv-7909 Coronavirus health topic: www.who.int/health-topics/coronavirus Questions and answers on COVID-19: www.who.int/news-room/q-a-detail/f-z-mjubccsggtavk Global tracker: who.Flybits [place] [employer] (AAP) Information for families: www.healthychildren.org/Australian/health-issues/conditions/chest-lungs/Pages /9229-Tksbs-Laausdiwnlr.aspx The coronavirus situation is changing rapidly. Check your local health authority website or the CDCand WHO websites for updates and news. When should I contact a health care provider? Contact your health care provider if you have symptoms of an infection, such as fever or cough, andyou: ?Have been near anyone who is known to have coronavirus disease. ?Have come into contact with a person who is suspected to have coronavirus disease. ?Have traveled outside of the country. When should I get emergency medical care? Get help right away by calling your local emergency services (911 in the [place] if you have: ?Trouble breathing. ?Pain or pressure in your chest. ?Confusion. ?Blue-tinged lips and fingernails. ?Difficulty waking from sleep. ?Symptoms that get worse. Let the emergency medical personnel know if you think you have coronavirus disease. Summary A new respiratory virus is spreading from person to person and causing COVID-19 (coronavirus disease). The virus that causes COVID-19 appears to spread easily. It spreads from one person to another through droplets from coughing or sneezing. Older adults and those with chronic diseases are at higher risk of disease. If you are at higher risk for complications, take extra precautions. There is currently no vaccine to prevent coronavirus disease. There are no medicines, such as antibiotics or antivirals, to treat the virus. You can protect yourself and your family by washing your hands often, avoiding touching your face, and covering your coughs and sneezes. This information is not intended to replace advice given to you by your health care provider. Make sure you discuss any questions you have with your health care provider. Document Released: 06/25/2019 Document Revised: 06/25/2019 Document Reviewed: 06/25/2019 [employer] Patient Education 2020 [employer] 11/24/2021 23:34:54 COVID-19 COVID-19 COVID-19 is a respiratory infection that is caused by a virus called severe acute respiratory syndrome coronavirus 2 (SARS-CoV-2). The disease is also known as coronavirus disease or novel coronavirus. In some people, the virus may not cause any symptoms. In others, it may cause a serious infection. The infection can get worse quickly and can lead to complications, such as: Pneumonia, or infection of the lungs. Acute respiratory distress syndrome or ARDS. This is fluid build-up in the lungs. Acute respiratory failure. This is a condition in which there is not enough oxygen passing from thelungs to the body. Sepsis or septic shock. This is a serious bodily reaction to an infection. Blood clotting problems. Secondary infections due to bacteria or fungus. The virus that causes COVID-19 is contagious. This means that it can spread from person to person through droplets from coughs and sneezes (respiratory secretions). What are the causes? This illness is caused by a virus. You may catch the virus by: Breathing in droplets from an infected person's cough or sneeze. Touching something, like a table or a doorknob, that was exposed to the virus (contaminated) and then touching your mouth, nose, or eyes. What increases the risk? Risk for infection You are more likely to be infected with this virus if you: Live in or travel to an area with a COVID-19 outbreak. Come in contact with a sick person who recently traveled to an area with a COVID-19 outbreak. Provide care for or live with a person who is infected with COVID-19. Risk for serious illness You are more likely to become seriously ill from the virus if you: Are 65 years of age or older. Have a long-term disease that lowers your body's ability to fight infection (immunocompromised). Live in a longterm or long-term care facility. Have a long-term (chronic) disease such as: ?Chronic lung disease, including chronic obstructive pulmonary disease or asthma ?Heart disease. ?Diabetes. ?Chronic kidney disease. ?Liver disease. Are obese. What are the signs or symptoms? Symptoms of this condition can range from mild to severe. Symptoms may appear any time from 2 to 14days after being exposed to the virus. They include: A fever. A cough. Difficulty breathing. Chills. Muscle pains. A sore throat. Loss of taste or smell. Some people may also have stomach problems, such as nausea, vomiting, or diarrhea. Other people may not have any symptoms of COVID-19. How is this diagnosed? This condition may be diagnosed based on: Your signs and symptoms, especially if: ?You live in an area with a COVID-19 outbreak. ?You recently traveled to or from an area where the virus is common. ?You provide care for or live with a person who was diagnosed with COVID-19. A physical exam. Lab tests, which may include: ?A nasal swab to take a sample of fluid from your nose. ?A throat swab to take a sample of fluid from your throat. ?A sample of mucus from your lungs (sputum). ?Blood tests. Imaging tests, which may include, X-rays, CT scan, or ultrasound. How is this treated? At present, there is no medicine to treat COVID-19. Medicines that treat other diseases are being used on a trial basis to see if they are effective against COVID-19. Your health care provider will talk with you about ways to treat your symptoms. For most people, the infection is mild and can be managed at home with rest, fluids, and ymzt-ahp-fatcroi medicines. Treatment for a serious infection usually takes places in a hospital intensive care unit (ICU). It may include one or more of the following treatments. These treatments are given until your symptoms improve. Receiving fluids and medicines through an IV. Supplemental oxygen. Extra oxygen is given through a tube in the nose, a face mask, or a carranza. Positioning you to lie on your stomach (prone position). This makes it easier for oxygen to get into the lungs. Continuous positive airway pressure (CPAP) or bi-level positive airway pressure (BPAP) machine. This treatment uses mild air pressure to keep the airways open. A tube that is connected to a motor delivers oxygen to the body. Ventilator. This treatment moves air into and out of the lungs by using a tube that is placed in your windpipe. Tracheostomy. This is a procedure to create a hole in the neck so that a breathing tube can be inserted. Extracorporeal membrane oxygenation (ECMO). This procedure gives the lungs a chance to recover by taking over the functions of the heart and lungs. It supplies oxygen to the body and removes carbon dioxide. Follow these instructions at home: Lifestyle If you are sick, stay home except to get medical care. Your health care provider will tell you how long to stay home. Call your health care provider before you go for medical care. Rest at home as told by your health care provider. Do not use any products that contain nicotine or tobacco, such as cigarettes, e- cigarettes, and chewing tobacco. If you need help quitting, ask your health care provider. Return to your normal activities as told by your health care provider. Ask your health care provider what activities are safe for you. General instructions Take vvbh-jyp-clwixjl and prescription medicines only as told by your health care provider. Drink enough fluid to keep your urine pale yellow. Keep all follow-up visits as told by your health care provider. This is important. How is this prevented? There is no vaccine to help prevent COVID-19 infection. However, there are steps you can take to protect yourself and others from this virus. To protect yourself: Do not travel to areas where COVID-19 is a risk. The areas where COVID-19 is reported change often.To identify high-risk areas and travel restrictions, check the CDC travel website: wwwnc.cdc.gov/travel/notices If you live in, or must travel to, an area where COVID-19 is a risk, take precautions to avoid infection. ?Stay away from people who are sick. ?Wash your hands often with soap and water for 20 seconds. If soap and water are not available, usean alcohol-based hand ultimate hoops scoreboard operator. ?Avoid touching your mouth, face, eyes, or nose. ?Avoid going out in public, follow guidance from your state and local health authorities. ?If you must go out in public, wear a cloth face covering or face mask. ?Disinfect objects and surfaces that are frequently touched every day. This may include: ?Counters and tables. ?Doorknobs and light switches. ?Sinks and faucets. ?Electronics, such as phones, remote controls, keyboards, computers, and tablets. To protect others: If you have symptoms of COVID-19, take steps to prevent the virus from spreading to others. If you think you have a COVID-19 infection, contact your health care provider right away. Tell yourhealth care team that you think you may have a COVID-19 infection. Stay home. Leave your house only to seek medical care. Do not use public transport. Do not travel while you are sick. Wash your hands often with soap and water for 20 seconds. If soap and water are not available, use alcohol-based hand ultimate hoops scoreboard operator. Stay away from other members of your household. Let healthy household members care for children andpets, if possible. If you have to care for children or pets, wash your hands often and wear a mask.If possible, stay in your own room, separate from others. Use a different bathroom. Make sure that all people in your household wash their hands well and often. Cough or sneeze into a tissue or your sleeve or elbow. Do not cough or sneeze into your hand or into the air. Wear a cloth face covering or face mask. Where to find more information Centers for Disease Control and Prevention: www.cdc.gov/coronavirus/2019-ncov/index.html World Health Organization: www.who.int/health-topics/coronavirus Contact a health care provider if: You live in or have traveled to an area where COVID-19 is a risk and you have symptoms of the infection. You have had contact with someone who has COVID-19 and you have symptoms of the infection. Get help right away if: You have trouble breathing. You have pain or pressure in your chest. You have confusion. You have bluish lips and fingernails. You have difficulty waking from sleep. You have symptoms that get worse. These symptoms may represent a serious problem that is an emergency. Do not wait to see if the symptoms will go away. Get medical help right away. Call your local emergency services (911 in the [place] Do not drive yourself to the hospital. Let the emergency medical personnel know if you think you have COVID-19. Summary COVID-19 is a respiratory infection that is caused by a virus. It is also known as coronavirus disease or novel coronavirus. It can cause serious infections, such as pneumonia, acute respiratory distress syndrome, acute respiratory failure, or sepsis. The virus that causes COVID-19 is contagious. This means that it can spread from person to person through droplets from coughs and sneezes. You are more likely to develop a serious illness if you are 65 years of age or older, have a weak immunity, live in a longterm, or have chronic disease. There is no medicine to treat COVID-19. Your health care provider will talk with you about ways to treat your symptoms. Take steps to protect yourself and others from infection. Wash your hands often and disinfect objects and surfaces that are frequently touched every day. Stay away from people who are sick and wear amask if you are sick. This information is not intended to replace advice given to you by your health care provider. Make sure you discuss any questions you have with your health care provider. Document Released: 04/04/2019 Document Revised: 07/25/2019 Document Reviewed: 04/04/2019 [employer] Patient Education 2020 [employer] Follow Up Care 11/24/2021 21:32:05 With:Nickolas Isaacs Address: [address] [place] [phone] Business (1) When:11/27/2021 Comments:Follow-up with your primary care provider in 3 to 5 days. If symptoms worsen, do not improve, or new symptoms arise please report back to emergency department for further evaluation. Continue to takeyour inhaler and nausea medication, as well as Tylenol and ibuprofen to deal with your symptoms. [facility]09-14-2022 Evaluation + Plan noteExtracted from: Title:ED Note Author:Laurent Apodaca PA-C te:11/24/21 COVID (U07.1: COVID-19) Dyspnea (R06.00: Dyspnea, unspecified) Nonspecific chest pain (R07.9: Chest pain, unspecified) Orders: dexamethasone, 8 mg = 2 mL, Injection, Oral, Once, Stop date 11/24/21 22:56:00 EDT, STAT, Start date 11/24/21 22:56:00 EDT, 11/24/21 22:56:00 EDT promethazine, 25 mg = 1 tab(s), Tab, Oral, Once, Stop date 11/24/21 22:57:00 EDT, STAT, Start date 11/24/21 22:57:00 EDT, 11/24/21 22:57:00 EDT promethazine, 12.5 mg = 0.5 mL, Injection, IV Push, Once, Stop date 11/24/21 21:57:00 EDT, STAT, Start date 11/24/21 21:57:00 EDT, 11/24/21 21:57:00 EDT promethazine, 12.5 mg = 1 tab(s), Oral, q6hr, PRN for nausea/vomiting, X 5 day(s), # 20 tab(s), Refills(s) 0, Pharmacy: [facility], 172.7, cm, 11/24/21 21:47:00 EDT, Height/Length Dosing, 120.5, kg, 11/24/21 21:47:00 EDT, Weight Dosing Automated Diff Basic Metabolic Panel CBC w/ Auto Diff ED Cardiac Monitoring eGFR Oxygen Saturation PT & PTT Saline Lock Insert Troponin 0 Hr. Troponin 3 Hr. Troponin 6 Hr. Troponin 9 Hr. XR Chest Single View [facility]09-13-2022 Evaluation note* Encounter Date Diagnosis Assessment Notes Treatment Notes Treatment Clinical Notes Nov, Contact with and (suspected) exposure to covid-19 (ICD-10 - Z20.822) covid pos, see above. Nov, COVID (ICD-10 - U07.1) Informed pt of POS covid test. They are to contact the covid employee hotline regarding quarantine and RTW instructions. Pt understood and agreed to tx plan. [employer] Other [phone] Evaluation + Plan note Future Appointments Appointment Date:03/31/2022 01:00:00 PM Scheduled Provider: Location:[facility] Appointment Type:CV Echo (FT) Appointment Date:03/31/2022 02:45:00 PM Scheduled Provider: Location[facility] Appointment Type:CV Stress (FT) Appointment Date:04/04/2022 03:45:00 PM Scheduled Provider:Leonardo Bates MD Location:[facility] Appointment Type:Cardiology Follow Up (FT) Diagnostic Tests Pending * Respiratory Panel by PCR 03/22/22 * Sputum Culture 03/22/22 Future Scheduled Tests Laboratory* Lipid Panel 02/22/22 Radiology* Echo Transthoracic Complete 03/31/22 * ECG Stress Exercise 03/31/22 [facility]2020 Evaluation + Plan note Future Appointments Appointment Date:03/31/2022 01:00:00 PM Scheduled Provider: Location[facility] Appointment Type:CV Echo (FT) Appointment Date:03/31/2022 02:45:00 PM Scheduled Provider: Location[facility] Appointment Type:CV Stress (FT) Appointment Date:04/04/2022 03:45:00 PM Scheduled Provider:Leonardo Bates MD Location:[facility] Appointment Type:Cardiology Follow Up (FT) Future Scheduled Tests Laboratory* Lipid Panel 02/22/22 Radiology* Echo Transthoracic Complete 03/31/22 * ECG Stress Exercise [facility]31[facility]22 [facility]ments Appointment Date:03/24/2022 10:45:00 AM Scheduled Provider: Location[facility] Appointment Type:NM Myocard Spect Multi Rest/Stress-Res Appointment Date:03/24/2022 11:45:00 AM Scheduled Provider: Location[facility] Appointment Type:NM Myocard Spect Multi Rest/Stress - R Appointment Date:03/31/2022 08:30:00 AM Scheduled Provider: Location[facility] Appointment Type:NM Myocard Spect MultiRest/Stress-Stre Appointment Date:03/31/2022 09:30:00 AM Scheduled Provider: Location[facility] Appointment Type:NM Myocard Spect Multi Rest/Stress - S Appointment Date:03/31/2022 01:00:00 PM Scheduled Provider: [facility] Type:CV Echo ([facility]) Appointment Date:04/04/2022 03:45:00 PM Scheduled Provider:Leonardo Bates MD Location[facility] Appointment Type:Cardiology Follow Up (FT) Future Scheduled Tests Laboratory* Lipid Panel 02/22/22 Radiology* NM Myocardial Spect Rest/Stress 1 Day 02/22/22 * Echo Transthoracic Complete 03/31/22 * NM Myocardial Spect Rest/Stress 2 Day 03[facility]24/22 [facility] Future App[facility]ments Appointment Date:12/12/2022 02:30:00 PM Scheduled Provider: Location:[facility] Appointment Type:Surgical PAT FT Appointment Date:12/22/2022 09:00:00 AM Scheduled Provider: Location:[facility] Appointment Type:Surgery FT Future Scheduled Tests Laboratory* Lipid Panel 02/22/22 [facility] [place] Evaluation noteNo assessment information available [facility] Work Phone: Evaluation note* Diagnosis 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, soft tissue, and skin [facility] Diagnosis History of sarcoma of soft tissue- Primary Personal history of malignant neoplasm of other site Family history of cancer Family history of unspecified malignant neoplasm [facility] Diagnosis Intractable chronic migraine without aura and without status migrainosus (CMS/HCC)- Primary 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, site unspecified [facility] Soft tissue tumor Neoplasm of unspecified nature of bone, soft tissue, and skin [facility] History of sarcoma of soft tissue Personal history of malignant neoplasm of other site Family history of cancer Family history of unspecified malignant neoplasm [facility] Diagnosis Acquired hypothyroidism (CMS/HCC)- Primary Unspecified hypothyroidism Generalized anxiety disorder (CMS/HCC) Generalized anxiety disorder Periumbilical abdominal pain Abdominal pain, periumbilic Periumbilical mass Abdominal or pelvic swelling, mass or lump, periumbilic Lower abdominal pain- Primary Abdominal pain, other specified site Periumbilical mass Abdominal or pelvic swelling, mass or lump, periumbilic Periumbilical mass- Primary Abdominal or pelvic swelling, mass or lump, periumbilic Mild intermittent asthma without complication (CMS/HCC) Nausea Nausea alone Acquired hypothyroidism (CMS/HCC)- Primary Unspecified hypothyroidism Subcutaneous mass of abdominal wall- Primary 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, site unspecified Acute bronchitis with wheezing Mild intermittent asthma without complication (CMS/HCC) Acute recurrent frontal sinusitis Generalized anxiety disorder (CMS/HCC)- Primary Generalized anxiety disorder Acquired hypothyroidism (CMS/HCC) Unspecified hypothyroidism Intractable chronic migraine without aura and without status migrainosus (CMS/HCC) 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, site unspecified Preventative health care- Primary Routine general medical examination at a health care facility Viral upper respiratory tract infection- Primary Acute upper respiratory infections of unspecified site Mild intermittent asthma without complication (CMS/HCC) Non-recurrent acute serous otitis media of right ear [facility] Acquired hypothyroidism (CMS/HCC)- Primary Unspecified hypothyroidism Generalized anxiety disorder (CMS/HCC) Generalized anxiety disorder Periumbilical abdominal pain Abdominal pain, periumbilic Periumbilical mass Abdominal or pelvic swelling, mass or lump, periumbilic Lower abdominal pain- Primary Abdominal pain, other specified site Periumbilical mass Abdominal or pelvic swelling, mass or lump, periumbilic Periumbilical mass- Primary Abdominal or pelvic swelling, mass or lump, periumbilic Mild intermittent asthma without complication (CMS/HCC) Nausea Nausea alone Acquired hypothyroidism (CMS/HCC)- Primary Unspecified hypothyroidism Subcutaneous mass of abdominal wall- Primary 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, site unspecified Acute bronchitis with wheezing Mild intermittent asthma without complication (CMS/HCC) Acute recurrent frontal sinusitis Generalized anxiety disorder (CMS/HCC)- Primary Generalized anxiety disorder Acquired hypothyroidism (CMS/HCC) Unspecified hypothyroidism Intractable chronic migraine without aura and without status migrainosus (CMS/HCC) 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, site unspecified Preventative health care- Primary Routine general medical examination at a health care facility Viral upper respiratory tract infection- Primary Acute upper respiratory infections of unspecified site Mild intermittent asthma without complication (CMS/HCC) documented in this encounter [facility]* Diagnosis Acquired hypothyroidism (CMS/HCC)- Primary Unspecified hypothyroidism Generalized anxiety disorder (CMS/HCC) Generalized anxiety disorder Periumbilical abdominal pain Abdominal pain, periumbilic Periumbilical mass Abdominal or pelvic swelling, mass or lump, periumbilic Lower abdominal pain- Primary Abdominal pain, other specified site Periumbilical mass Abdominal or pelvic swelling, mass or lump, periumbilic Periumbilical mass- Primary Abdominal or pelvic swelling, mass or lump, periumbilic Mild intermittent asthma without complication (CMS/HCC) Nausea Nausea alone Acquired hypothyroidism (CMS/HCC)- Primary Unspecified hypothyroidism Subcutaneous mass of abdominal wall- Primary 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, site unspecified Acute bronchitis with wheezing Mild intermittent asthma without complication (CMS/HCC) Acute recurrent frontal sinusitis Generalized anxiety disorder (CMS/HCC)- Primary Generalized anxiety disorder Acquired hypothyroidism (CMS/HCC) Unspecified hypothyroidism Intractable chronic migraine without aura and without status migrainosus (CMS/HCC) 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, site unspecified Preventative health care- Primary Routine general medical examination at a health care facility Throat swelling- Primary Swelling, mass, or lump in head and neck Lower abdominal pain Abdominal pain, other specified site Heart palpitations Palpitations Tachycardia Unspecified tachycardia Acquired hypothyroidism (CMS/HCC) Unspecified hypothyroidism documented in this encounter [facility] HealthcareEvaluation note* Diagnosis Acquired hypothyroidism (CMS/HCC)- Primary Unspecified hypothyroidism Generalized anxiety disorder (CMS/HCC) Generalized anxiety disorder Periumbilical abdominal pain Abdominal pain, periumbilic Periumbilical mass Abdominal or pelvic swelling, mass or lump, periumbilic Lower abdominal pain- Primary Abdominal pain, other specified site Periumbilical mass Abdominal or pelvic swelling, mass or lump, periumbilic Periumbilical mass- Primary Abdominal or pelvic swelling, mass or lump, periumbilic Mild intermittent asthma without complication (CMS/HCC) Nausea Nausea alone Acquired hypothyroidism (CMS/HCC)- Primary Unspecified hypothyroidism Subcutaneous mass of abdominal wall- Primary 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, site unspecified Acute bronchitis with wheezing Mild intermittent asthma without complication (CMS/HCC) Acute recurrent frontal sinusitis Generalized anxiety disorder (CMS/HCC)- Primary Generalized anxiety disorder Acquired hypothyroidism (CMS/HCC) Unspecified hypothyroidism Intractable chronic migraine without aura and without status migrainosus (CMS/HCC) 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, site unspecified Preventative health care- Primary Routine general medical examination at a health care facility Acquired hypothyroidism (CMS/HCC)- Primary Unspecified hypothyroidism [facility] Diagnosis Postural orthostatic tachycardia syndrome (POTS)- Primary Syncope, unspecified syncope type Hypothyroidism, unspecified type BMI 40.0-44.9, adult (Multi) Never smoked tobacco Morbid obesity (Multi) Morbid obesity documented in this encounter [facility] Work Phone: Evaluation note* Diagnosis Acquired hypothyroidism (CMS/HCC)- Primary Unspecified hypothyroidism Generalized anxiety disorder (CMS/HCC) Generalized anxiety disorder Periumbilical abdominal pain Abdominal pain, periumbilic Periumbilical mass Abdominal or pelvic swelling, mass or lump, periumbilic Lower abdominal pain- Primary Abdominal pain, other specified site Periumbilical mass Abdominal or pelvic swelling, mass or lump, periumbilic Periumbilical mass- Primary Abdominal or pelvic swelling, mass or lump, periumbilic Mild intermittent asthma without complication (CMS/HCC) Nausea Nausea alone Acquired hypothyroidism (CMS/HCC)- Primary Unspecified hypothyroidism Subcutaneous mass of abdominal wall- Primary 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, site unspecified Acute bronchitis with wheezing Mild intermittent asthma without complication (CMS/HCC) Acute recurrent frontal sinusitis Generalized anxiety disorder (CMS/HCC)- Primary Generalized anxiety disorder Acquired hypothyroidism (CMS/HCC) Unspecified hypothyroidism Intractable chronic migraine without aura and without status migrainosus (CMS/HCC) 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, site unspecified Preventative health care- Primary Routine general medical examination at a health care facility Acute cystitis with hematuria- Primary Periumbilical mass Abdominal or pelvic swelling, mass or lump, periumbilic Epigastric pain Abdominal pain, epigastric [facility]* Diagnosis Syncope, unspecified syncope type documented in this encounter [facility] Work Phone: Evaluation note* Diagnosis Nausea and vomiting, unspecified vomiting type Abdominal bloating Flatulence, eructation, and gas pain Epigastric pain Abdominal pain, epigastric [facility] Diagnosis POTS (postural orthostatic tachycardia syndrome) Unspecified tachycardia Postural orthostatic tachycardia syndrome (POTS) Acquired hypothyroidism Unspecified hypothyroidism Type 2 diabetes mellitus without complication, without long-term current use of insulin Never smoked tobacco BMI 40.0-44.9, adult (Multi) documented in this encounter [facility] Work Phone: Evaluation note* Diagnosis Dyspepsia Dyspepsia and other specified disorders of function of stomach [facility] Diagnosis Nausea and vomiting, unspecified vomiting type- Primary [facility] Diagnosis Acquired hypothyroidism- Primary Unspecified hypothyroidism Generalized anxiety disorder Generalized anxiety disorder Periumbilical abdominal pain Abdominal pain, periumbilic Periumbilical mass Abdominal or pelvic swelling, mass or lump, periumbilic Lower abdominal pain- Primary Abdominal pain, other specified site Periumbilical mass Abdominal or pelvic swelling, mass or lump, periumbilic Periumbilical mass- Primary Abdominal or pelvic swelling, mass or lump, periumbilic Mild intermittent asthma without complication (HCC) Nausea Nausea alone Acquired hypothyroidism- Primary Unspecified hypothyroidism Subcutaneous mass of abdominal wall- Primary Sarcoma (HCC) 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, site unspecified Acute bronchitis with wheezing Mild intermittent asthma without complication (HCC) Acute recurrent frontal sinusitis Generalized anxiety disorder- Primary Generalized anxiety disorder Acquired hypothyroidism Unspecified hypothyroidism Intractable chronic migraine without aura and without status migrainosus Sarcoma (HCC) 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, site unspecified Preventative health care- Primary Routine general medical examination at a health care facility Preventative health care- Primary Routine general medical examination at a health care facility [facility] Acquired hypothyroidism- Primary Unspecified hypothyroidism Generalized anxiety disorder Generalized anxiety disorder Periumbilical abdominal pain Abdominal pain, periumbilic Periumbilical mass Abdominal or pelvic swelling, mass or lump, periumbilic Lower abdominal pain- Primary Abdominal pain, other specified site Periumbilical mass Abdominal or pelvic swelling, mass or lump, periumbilic Periumbilical mass- Primary Abdominal or pelvic swelling, mass or lump, periumbilic Mild intermittent asthma without complication (HCC) Nausea Nausea alone Acquired hypothyroidism- Primary Unspecified hypothyroidism Subcutaneous mass of abdominal wall- Primary Sarcoma (HCC) 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, site unspecified Acute bronchitis with wheezing Mild intermittent asthma without complication (HCC) Acute recurrent frontal sinusitis Generalized anxiety disorder- Primary Generalized anxiety disorder Acquired hypothyroidism Unspecified hypothyroidism Intractable chronic migraine without aura and without status migrainosus Sarcoma (HCC) 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 [employer] Other Hospital course Narrative No data available for this section [facility] No data available for this section [facility] Discharge instructions Additional Instructions 1. No driving if taking narcotic pain medication. 2. No lifting more than 20 pounds for 2 weeks. 3. May shower.[facility] Work Phone: Progress note No data available for this section [facility]ative[facility] Consultation (Routine) - Pending Review Specialty Diagnoses / Procedures Referred By Linda desai Referred To Contact Neurology Diagnoses Intractable chronic migraine without aura and without status migrainosus (CMS/HCC) Sarcoma (CMS/HCC) Procedures [place] OFFICE/OUTPATIENT [facility] 60 MINUTES Linnea Hackett PA [address] [place] [address] Deon Parra MD [address] [facility] [address] [place] [address] Referral ID Status Reason Start Date Expiration Date Visits Requested Visits Authorized [id number] Pending Review Specialty Services Required 04/18/2023 10/15/2023 1 1 [facility] (narrative)No reason for referral [facility] Reason for visit Narrative* CV Imaging (Routine) - Authorized Specialty Diagnoses / Procedures Referred By Linda t Referred To Contact Cardiology Diagnoses Syncope, unspecified syncope type Procedures Transthoracic Echo Complete [place] ECHO TTHRC R-T 2D W/WOM-MODE COMPL SPEC&COLR D Quique Vazquez MD [address] [facility] [address] [place] [address] Phone: tel: fax: Referral ID Status Reason Start Date Expiration Date Visits Requested Visits Authorized [id number] Authorized Perform Procedure 05/09/2024 05/09/2025 1 1 [facility] Work Phone: Reason for visit Narrative* Outpatient Procedure (Routine) - Closed Specialty Diagnoses / Procedures Referred By Linda desai Referred To Contact [facility] Diagnoses Nausea and vomiting, unspecified vomiting type Abdominal bloating Epigastric pain Procedures COLONOSCOPY DIAGNOSTIC COLONOSCOPY FLX DX W/COLLJ SPEC WHEN PFRMD Kimberly Nava APRN.EXECUTIVE PRODUCER [address] [place] [address] Phone: tel: fax: [facility] [address] [place] [address] Referral ID Status Reason Start Date Expiration Date V isits Requested Visits Authorized [id number] Closed Auto-Generate d Referral 07/30/2024 07/30/2025 1 1 [facility] Summary Purpose Family History Relationship Condition Age at Onset Recorded Date/T soren father Hypertension Unknown Not Specified Hodgkin lymphoma Unknown Not Specified Alive and well Unknown Not Specified Malignant neoplasm of ovary Unknown Not Specified Hepatic cirrhosis Unknown Relationship Condition Age at Onset Recorded Date/T soren father Hypertension Unknown paternal grandfather Hodgkin lymphoma Unknown mother Alive and well Unknown paternal grandmother Malignant neoplasm of ovary Unkno wn maternal grandmother Hepatic cirrhosis Unknown Advance Directives Advance Directive Response Recorded Date/ Time Advance Directives No April 2:22pm Advance Directive Response Recorded Date/ Time Advance Directives No April 1:22pm Chief Complaint and Reason for Visit Chief Complaint pillars Chief Complaint flu vaccine Chief Complaint cholelithiasis Chief Complaint cholelithiasis cholelithiasis Chief Complaint Pillars Chief Complaint Admit Date R10.33 R19.05 August 14, 2024 7:38a m Chief Complaint Admit Date R10.33 R19.05 August 14, 2024 7:38a m G90.A R55 August 28, 2024 8:28 am Unknown September 16, 2024 10:35 pm Chief Complaint Admit Date R10.33 R19.05 August 14, 2024 7:38a m G90.A R55 August 28, 2024 8:28 am Unknown September 16, 2024 10:35 pm Pillars October 02, 2024 8:04 am Reason for Referral Specialty Diagnoses / Procedures Referred By Linda desai Referred To Contact CT IMAGING Diagnoses History of sarcoma of soft tissue Family history of cancer Procedures CT CHEST W IVCON DIAGNOSTIC COMPUTED TOMOGRAPHY THORAX W/[place] [id number] Imaging [id number] Referral ID Status Reason Start Date Expiration Date Visits Requested Visits Authorized [id number] Pending Review Auto-Generat ed Referral 02/15/2023 03/09/2024 1 1 Specialty Diagnoses / Procedures Referred By Linda desai Referred To Contact Diagnoses History of sarcoma of soft tissue Family history of cancer Procedures CONSULT TO SOLID TUMOR GENOMICS CLINIC OFFICE/OUTPATIENT [facility] HIGH MDM 60-[place] [id number] Referral ID Status Reason Start Date Expiration Date Visits Requested Visits Authorized [id number] Authorized PCP Requested Referral 02/08/2024 1 1 Specialty Diagnoses / Procedures Referred By Linda desai Referred To Contact MR IMAGING Diagnoses Soft tissue tumor Procedures MRI ABDOMEN WO/W IVCON MRI ABDOMEN W/O & W/CONTRAST MATERIAL Leonardo Bray MD [address] [facility] [place] [address] Mr Imaging [place] [address] Referral ID Status Reason Start Date Expiration Date Visits Requested Visits Authorized [id number] Pending Review Auto-Generat ed Referral 3 03/04/2024 1 1 Additional Source Comments INFORMATION SOURCE (unrecogn ized section and content) DATE CREATED AUTHOR 11/22/2020 [facility] DATE CREATED AUTHOR AUTHOR'S ORGANIZ ATION 07/11/2021 [facility] dical Specialist DATE CREATED AUTHOR AUTHOR'S ORGANIZ ATION 10/20/2023 [facility] DATE CREATED AUTHOR AUTHOR'S ORGANIZ ATION 04/18/2024 [facility] DATE CREATED AUTHOR AUTHOR'S ORGANIZ ATION 04/27/2024 [facility] DATE CREATED AUTHOR AUTHOR'S ORGANIZ ATION 07/24/2024 [facility] DATE CREATED AUTHOR AUTHOR'S ORGANIZ ATION 09/14/2024 [facility] DATE CREATED AUTHOR AUTHOR'S ORGANIZ ATION 09/27/2024 [facility] DATE CREATED AUTHOR AUTHOR'S ORGANIZ ATION 10/03/2024 [facility] DATE CREATED AUTHOR AUTHOR'S ORGANIZ ATION 10/16/2024 [facility] dical Specialists EPIC Care Teams (unrecognized sec tion and content) Team Status: Active Member Role Status Dates Nickolas Isaacs MD Primary Care Provider Active Team Status: Inactive Member Role Status Dates Nickolas Isaacs MD Primary Care Provider Active Black Zaidi , [facility] Attending Provider Active Reduction Plant Supervisor Relationship Specialty Start Date End Date Linnea Hackett PA-C [address] [place] [address] PCP - General Family Medicine 02/03/23 [employer] Plant Supervisor Relationship Specialty Start Date End Date Linnea Hackett PA-C [address] [place] [address] PCP - General Family Medicine 02/03/23 Reduction Plant Supervisor Relationship Specialty Start Date End Date Linnea Hackett PA-C [address] [place] [address] PCP - General Family Medicine 02/03/23 Team Status: Active Member Role Status Dates Linnea Hackett PA-C Primary Care Provider Active Team Status: Inactive Member Role Status Dates Kirk Rush MD Attending Provider Active Sta rt: April 04, 2023 End: April 04, 2023 Linnea Hackett PA-C Primary Care Provider Active Start: April 04, 2023 End: April 04, 2023 Team Status: Inactive Member Role Status Dates Kirk Rush MD Attending Provider Active Sta rt: April 06, 2023 End: April 06, 2023 Linnea Hackett PA-C Primary Care Provider Active Start: April 06, 2023 End: April 06, 2023 Reduction Plant Supervisor Relationship Specialty Start Date End Date Linnea Hackett PA [address] [place] [address] PCP - Medical [facility] 08/11/22 Nickolas Isaacs MD [address] [place] [address] PCP - General Family Medicine 09/28/22 Linnea Hackett PA [address] [place] [address] Physician Day Habilitation Supervisor Family Medicine 09/28/22 Reduction Plant Supervisor Relationship Specialty Start Date End Date Linnea Hackett PA [address] [place] [address] PCP - Medical [facility] 08/11/22 Nickolas Isaacs MD [address] [place] [address] PCP - General Family Medicine 09/28/22 Linnea Hackett PA [address] [place] [address] Physician Day Habilitation Supervisor Family Medicine 09/28/22 Team Status: Inactive Member Role Status Dates Linnea Hackett PA-C Primary Care Provider Active Start: September 21, 2023 End: September 21, 2023 Black Zaidi - [facility] , DO [facility] Attending Provider Active Start: September 21, 2023 End: September 21, 2023 Reduction Plant Supervisor Relationship Specialty Start Date End Date Linnea Hackett PA-C [address] [place] [address] PCP - General Family Medicine 02/03/23 [place] [address] [place] [address] Specialty Technician Anatomic Pathology Hematology/Oncology 02/10/23 Reduction Plant Supervisor Relationship Specialty Start Date End Date Linnea Hackett PA-C [address] [place] [address] PCP - General Family Medicine 02/03/23 [place] [address] [place] [address] Specialty Technician Anatomic Pathology Hematology/Oncology 02/10/23 Reduction Plant Supervisor Relationship Specialty Start Date End Date Nickolas Isaacs MD [address] [place] [address] PCP - General Family Medicine 09/28/22 Linnea Hackett PA [address] [place] [address] Physician Day Habilitation Supervisor Family Medicine 09/28/22 Reduction Plant Supervisor Relationship Specialty Start Date End Date Nickolas Isaacs MD [address] [place] [address] PCP - General Family Medicine 09/28/22 Linnea Hackett PA [address] [place] [address] Physician Day Habilitation Supervisor Family Medicine 09/28/22 Reduction Plant Supervisor Relationship Specialty Start Date End Date Nickolas Isaacs MD [address] [place] [address] PCP - General Family Medicine 09/28/22 Linnea Hackett PA [address] [place] [address] Physician Day Habilitation Supervisor Family Medicine 09/28/22 Reduction Plant Supervisor Relationship Specialty Start Date End Date Nickolas Isaacs MD [address] [place] [address] PCP - General Family Medicine 09/28/22 Linnea Hackett PA [address] [place] [address] Physician Day Habilitation Supervisor Family Medicine 09/28/22 Reduction Plant Supervisor Relationship Specialty Start Date End Date Nickolas Isaacs MD [address] [place] [address] PCP - General Family Medicine 09/28/22 Linnea Hackett PA [address] [place] [address] Physician Day Habilitation Supervisor Family Medicine 09/28/22 Reduction Plant Supervisor Relationship Specialty Start Date End Date Nickolas Isaacs MD [address] [place] [address] PCP - General Family Medicine 09/28/22 Linnea Hackett PA [address] [place] [address] Physician Day Habilitation Supervisor Family Medicine 09/28/22 Reduction Plant Supervisor Relationship Specialty Start Date End Date Linnea Hackett PA-C [address] [place] [address] PCP - General Internal Medicine 04/16/24 Reduction Plant Supervisor Relationship Specialty Start Date End Date Nickolas Isaacs MD [address] [place] [address] PCP - General Family Medicine 09/28/22 Linnea Hackett PA [address] [place] [address] Physician Day Habilitation Supervisor Family Medicine 09/28/22 Reduction Plant Supervisor Relationship Specialty Start Date End Date Nickolas Isaacs MD [address] [place] [address] PCP - General Family Medicine 09/28/22 Linnea Hackett PA [address] [place] [address] Physician Day Habilitation Supervisor Family Medicine 09/28/22 Reduction Plant Supervisor Relationship Specialty Start Date End Date Linnea Hackett PA-C [address] [place] [address] PCP - General Internal Medicine 04/16/24 Reduction Plant Supervisor Relationship Specialty Start Date End Date Nickolas Isaacs MD [address] [place] [address] PCP - General Family Medicine 09/28/22 Linnea Hackett PA [address] [place] [address] Physician Day Habilitation Supervisor Family Medicine 09/28/22 Team Status: Inactive Member Role Status Dates Linnea Hackett PA-C Primary Care Pr ovidernesto, Attending Provider Active Start: August 14, 2024 End: August 14, 2024 Reduction Plant Supervisor Relationship Specialty Start Date End Date Nickolas Isaacs MD [address] [place] [address] PCP - General Family Medicine 09/28/22 Linnea Hackett PA [address] [place] [address] Physician Day Habilitation Supervisor Family Medicine 09/28/22 Reduction Plant Supervisor Relationship Specialty Start Date End Date Linnea Hackett PA-C [address] [place] [address] PCP - General Family Medicine 02/03/23 [place] [address] [place] [address] Specialty Technician Anatomic Pathology Hematology/Oncology 02/10/23 Reduction Plant Supervisor Relationship Specialty Start Date End Date Linnea Hackett PA-C [address] [place] [address] PCP - General Internal Medicine 04/16/24 Reduction Plant Supervisor Relationship Specialty Start Date End Date Nickolas Isaacs MD [address] [place] [address] PCP - General Family Medicine 09/28/22 Linnea Hackett PA [address] [place] [address] Physician Day Habilitation Supervisor Family Medicine 09/28/22 Team Status: Inactive Member Role Status Dates Linnea Hackett PA-C Primary Care Provider Active Start: August 14, 2024 End: August 14, 2024 Linnea Hackett PA-C Attending Provider Active Start: August 14, 2024 End: August 14, 2024 Team Status: Inactive Member Role Status Dates Linnea Hackett PA-C Primary Care Provider Active Start: August 28, 2024 End: August 28, 2024 Quique Vazquez MD Attending Provider Active St art: August 28, 2024 End: August 28, 2024 Nidia Hughes MD Referring Provider Active Start: August 28, 2024 End: August 28, 2024 Team Status: Inactive Member Role Status Dates Haily Ash DO Attending Provider Act gregory Start: September 16, 2024 End: September 16, 2024 Reduction Plant Supervisor Relationship Specialty Start Date End Date Linnea Hackett PA-C [address] [place] [address] PCP - General Family Medicine 02/03/23 [place] [address] [place] [address] Specialty Technician Anatomic Pathology Hematology/Oncology 02/10/23 Reduction Plant Supervisor Relationship Specialty Start Date End Date Linnea Hackett PA-C [address] [place] [address] PCP - General Family Medicine 02/03/23 [place], [place] [address] [place] [address] Specialty Technician Anatomic Pathology Hematology/Oncology 02/10/23 Team Status: Active Member Role Status Dates PHYSICIAN NO FAMILY Primary Care Provider Active Team Status: Inactive Member Role Status Dates PHYSICIAN NO FAMILY Primary Care Provider Active Start: October 02, 2024 End: October 02, 2024 Black MOCK DO [facility] Attending Provider Active Start: October 02, 2024 End: October 02, 2024 Reduction Plant Supervisor Relationship Specialty Start Date End Date Nickolas Isaacs MD [address] [place] [address] PCP - General Family Medicine 09/28/22 Linnea Hackett PA [address] [place] [address] Physician Day Habilitation Supervisor Family Medicine 09/28/22 Goals (unrecognized section and content) Goals may be documented in a n alternate sectionNo Information No data available for this section No data available for this section No data available for this section No data available for this section No data available for this section No data available for this section No data available for this section No data available for this section No data available for this section No data available for this section No data available for this section No data available for this sectionNo Information No data available for this section No data available for this section No data available for this section No data available for this section No data available for this section No data available for this sectionGoals may be documented in an alternate section No data available for this section No data available for this section No data available for this sectionGoals may be documented in an alternate section No data available for this section No data available for this section No data available for this section No data available for this sectionGoals may be documented in an alternate section No data available for this section No data available for this section No data available for this sectionGoals may be documented in an alternate sectionGoals may be documented in an alternate sectionGoals may be documented in an alternate section REASON FOR VISIT (unrecogniz ed section and content) Reason Comments Consult Reason Comments Consult Reason Comments Technician Anatomic Pathology - Other Need office not e from 02/[address] Sharma Reason Comments Radiology MRI Specialty Diagnoses / Procedures Referred By Contac t Referred To Contact MR IMAGING Diagnoses Soft tissue tumor Procedures MRI ABDOMEN WO/W IVCON MRI ABDOMEN W/O & W/CONTRAST MATERIAL Leonardo Bray MD [address] [place] [address] [place] [address] Referral ID Status Reason Start Date Expiration Date V isits Requested Visits Authorized [id number] Closed Auto-Generate d Referral 02/03/2023 03/04/2024 1 [address] Specialty Diagnoses / Procedures Referred By Contac t Referred To Contact CT IMAGING Diagnoses History of sarcoma of soft tissue Family history of cancer Procedures CT CHEST W IVCON DIAGNOSTIC COMPUTED TOMOGRAPHY THORAX W/[place] [id number] [place] [address] Referral ID Status Reason Start Date Expiration Date V isits Requested Visits Authorized [id number] Closed Auto-Generate d Referral 02/15/2023 03/09/2024 1 1 Reason Comments Shortness of Breath Patient reporting is sues with breathing. Patient reporting exposure to RSV and pneumonia approximately two weeks. States breathing has been getting worse over last two weeks. Reporting no fevers. Cough Patient reporting ch ronic cough over last two weeks. Reason Comments Follow-up Reason Comments Allergy Testing Heart Problem Wants to talk about cardiology referral Reason Comments New Patient Visit Palps tachycardia Specialty Diagnoses / Procedures Referred By Adamac t Referred To Contact Diagnoses Postural orthostatic tachycardia syndrome (POTS) Syncope, unspecified syncope type Procedures ECG 12 Lead Quique Vazquez MD [address] [place], [place] [id number] Phone: tel: fax: Referral ID Status Reason Start Date Expiration Date V isits Requested Visits Authorized [id number] Authorized 05/08/2024 05/08/2025 1 1 Reason Comments ER Follow-up Abdominal Pain Reason Comments Follow-up Tilt table Specialty Diagnoses / Procedures Referred By Adamac t Referred To Contact Cardiology Diagnoses Syncope, unspecified syncope type Procedures Follow Up In Cardiology Quique Vazquez MD [address] [place] [address] Phone: tel: fax: Quique Vazquez MD [address] [place] [address] Phone: tel: fax: Referral ID Status Reason Start Date Expiration Date V isits Requested Visits Authorized [id number] Authorized 05/08/2024 05/08/2025 1 1 Reason Comments Radiology NM Specialty Diagnoses / Procedures Referred By Contac t Referred To Contact MOLECULAR & FUNCTIONAL IMAGING Diagnoses Dyspepsia Nausea Procedures NM GASTRIC EMPTYING SOLID GASTRIC EMPTYING STUDY Elijah, MAITE Solis.[facility] [address] [address] Phone: tel: fax: Molecular Imaging [address] [place] [id number] Phone: tel: Referral ID Status Reason Start Date Expiration Date V isits Requested Visits Authorized [id number] Closed Auto-Generate d Referral 07/30/2024 08/29/2025 1 1 Reason Comments [facility] Visit Source Comments (unrecognize d section and content) In the event this informatio n is protected by the Federal Confidentiality of Alcohol and Drug Abuse Patient Records regulations: The Federal rules restrict any use of the information to criminally investigate or prosecute any alcohol or drug abuse patient.[facility] the event this information is protected by the Federal Confidentiality of Alcohol and Drug Abuse Patient Records regulations: The Federal rules restrict any use of the information to criminally investigate or prosecute any alcohol or drug abuse patient.[facility] the event this information is protected by the Federal Confidentiality of Alcohol and Drug Abuse Patient Records regulations: The Federal rules restrict any use of the information to criminally investigate or prosecute any alcohol or drug abuse patient.[facility] the event this information is protected by the Federal Confidentiality of Alcohol and Drug Abuse Patient Records regulations: The Federal rules restrict any use of the information to criminally investigate or prosecute any alcohol or drug abuse patient.[facility] the event this information is protected by the Federal Confidentiality of Alcohol and Drug Abuse Patient Records regulations: The Federal rules restrict any use of the information to criminally investigate or prosecute any alcohol or drug abuse patient.[facility] the event this information is protected by the Federal Confidentiality of Alcohol and Drug Abuse Patient Records regulations: The Federal rules restrict any use of the information to criminally investigate or prosecute any alcohol or drug abuse patient.[facility] the event this information is protected by the Federal Confidentiality of Alcohol and Drug Abuse Patient Records regulations: The Federal rules restrict any use of the information to criminally investigate or prosecute any alcohol or drug abuse patient.[facility] the event this information is protected by the Federal Confidentiality of Alcohol and Drug Abuse Patient Records regulations: The Federal rules restrict any use of the information to criminally investigate or prosecute any alcohol or drug abuse patient.[facility] FOR RECORDS PERTAINING TO PATIENTS WHO ARE OR HAVE BEEN ENROLLED IN A CHEMICAL DEPENDENCY/SUBSTANCEABUSE PROGRAM, SOME INFORMATION MAY BE OMITTED. This clinical summary was aggregated from multiple sources. Caution should be exercised in using it in the provision of clinical care. This summary normalizes information from multiple sources, and as a consequence, information in this document may materially change the coding, format and clinical context of patient data. In addition, data may be omitted in some cases. CLINICAL DECISIONS SHOULD BE BASED ON THE PRIMARY CLINICAL RECORDS. [facility] [employer] [facility] provides no warranty or guarantee of the accuracy or completeness of information in this document.
[2024-10-28 12:08] LABS: Age Gdln ACOG Testing Note (.); IGP, rfx Aptima HPV ASCU Note (.)
== END 2024-10-23 19:00 | disposition home or self-care (01) ==
LOC: LAB 18:59
PROVIDERS: PCP Physician Assistant; Visit Provider Obstetrics & Gynecology
DX: Z01.419 Encounter for gynecological examination (general) (routine) without abnormal findings (principal)
CPT/HCPCS: 88175

== ENCOUNTER 2024-11-15 06:48 | Outpatient (OUT) | payer OTHER, SELFPAY ==
--- NOTE | 2024-11-15 06:50 | US_ITS ---
The [address] [address] Patient Name: ADINA RENE MRN: [id number] date: 1995 Sex: F Assigned Patient Location: US Current Patient Location: US Accession/Order Number: [id number] Exam Date: 11/15/2024 07:01 Report Date: 11/15/2024 09:32 At the request of: RAFAEL BORDEN DO Procedure: US pelvis w/ transvaginal ULTRASOUND PELVIS WITH TRANSVAGINAL COMPARISON: 11/17/2022 CLINICAL DATA: Chronic worsening bloating and pelvic pain Real-time ultrasound evaluation the pelvis was performed utilizing both a transabdominal and transvaginal approach. TRANSABDOMINAL: Estimated uterine size is approximately 9.8 x 4.5 x 6.2 cm. No focal myometrial abnormalities are seen. The endometrial lining is estimated at 3-4 mm. Only the right ovary is identified. TRANSVAGINAL: Transvaginal scans were performed to better evaluate the uterus and adnexa. By this approach, no focal myometrial abnormalities are noted. The endometrial lining is estimated at 8 mm. Both ovaries are identified. The right measures 4.0 x 1.8 x 1.7 cm. The left ovary measures 3.3 x 1.5 x 1.8 cm . Small follicles are present. There are no dominant adnexal cysts. There is documentation of ovarian blood flow. No free fluid is seen. US/US pelvis w/ transvaginal IMPRESSION: WITHIN NORMAL LIMITS. Impression dictated by: Lori Valenzuela M.D. 11/15/2024 9:32 AM Dictation Location: [place] [address] Electronically authenticated by: [id number] Date: 11/15/2024 09:32
--- OUTSIDE RECORDS SUMMARY | 2024-11-15 06:52 | XMS_ITS | CCD ---
Author Organization [facility] Care Team Providers Care Rn Stars Name Role Phone DR GRACIE RAMIREZ Consulting Unavailable DIYA, DR HALL Attending Unavailable DIYA, DR HALL Admitting Unavailable PREET, DR RICK Parsons Consulting Unavailable MD Nickolas Isaacs Primary Care Provider [phone] DO Black Zaidi Attending Provider Faby Fay Unavailable Nickolas Isaacs Primary Care Physician Linnea HACKETT Primary Care Physician Faby Gusman Unavailable MD Nickolas Isaacs Primary Care Provider DO Black Zaidi Attending Provider Linnea Hackett PA-C Primary Care Provider MD Kirk Rush Attending Provider KADY Hackett Primary Care Provider [phone] Linnea Pires Unavailable Nickolas Isaacs MD Primary Care Provider Linnea Pires Unavailable KADY Hackett Primary Care Provider [phone] DO Black Saleh Attending Provider Gabe GODWIN Attending Unavailable DO Jean Bullard Attending Unavailable REFERRAL, SELF Referring Unavailable Magdi Duong Admitting Unavailable Magdi Duong Attending Unavailable Santos Booker Attending Unavailable Santos Booker Attending Unavailable Cliff Gusman Attending Unavailable NILL, Gabe R Admitting Unavailable NILL, Gabe R Attending Unavailable NILL, Gabe R Referring Unavailable NILL, Gabe R Attending Unavailable NILL, Gabe R Referring Unavailable NILL, Gabe R Admitting Unavailable IYER, IVETH Herndon Admitting Unavailable IYER, IVETH Herndon Attending Unavailable Parra, Deon W Admitting Unavailable Parra, Deon W Attending Unavailable Parra, Deon W Referring Unavailable Linnea HACKETT Attending Unavailable Linnea HACKETT Referring Unavailable Linnea HACKETT Admitting Unavailable SHARMAJACQUELINE Buenrostro Admitting Unavailberenice e JACQUELINE SHARMA Attending Unavailabl e Linnea HACKETT Attending Unavailable Linnea HACKETT Admitting Unavailable Linnea HACKETT Admitting Unavailable Linnea HACKETT Attending Unavailable Héctor Christianson Attending Unavailable Linnea HACKETT Referring Unavailable NILDaniel, Gabe Parsons Attending Unavailable Linnea Hackett PA-C Primary Care Provider Maddi Ochoa RN Unavailable Linnea HACKETT Admitting Unavailable Linnea HACKETT Attending Unavailable Cliff Gusman Attending Unavailable Linnea Hackett PA-C Primary Care Provider QUIQUE VAZQUEZ Referring Unavailable LINNEA HACKETT Primary Care Unavailable Linnea Hackett PA-C Primary Care Provider Linnea Hackett PA-C Attending Provider QUIQUE VAZQUEZ Attending Unavailable LINNEA HACKETT Primary Care Unavailable QUIQUE VAZQUEZ Attending Unavailable QUIQUE VAZQUEZ Referring Unavailable LINNEA HACKETT Primary Care Unavailable Quique Vazquez MD Attending Provider [phone] Nidia Hughes MD Referring Provider Haily Mulligan DO Attending Provide r NO FAMILY, PHYSICIAN Primary Care Provider Unava ilcortney [facility] Black BELTRAN Attending Provider Haily Mulligan Attending Unav ailable Haily Mulligan Admitting Unav ailable Ellen Lowellnoni Referring Unavailable Quique Vazquez Attending Unavailable Vazquez, Quique Admitting Unavailable Roxann, Linnea Herndon Primary Care Unavailable Roxann, Linnea Herndon Admitting Unavailable Roxann, Linnea Herndon Attending Unavailable Roxann, Linnea Herndon Primary Care Unavailable NO FAMILY, PHYSICIAN Primary Care Unavailable [facility], Black P Attending Unavailable Kuns - [facility], Black P Admitting Unavailable ROXANN, LINNEA Herndon Attending Unavailable ROXANN, LINNEA Herndon Attending Unavailable ROXANN, LINNEA Herndon Attending Unavailable DB KEANE Attending Unavailable ROXANN, LINNEA Herndon Attending Unavailable ROXANN, LINNEA Herndon Attending Unavailable ROXANN, LINNEA Herndon Attending Unavailable ROXANN, Linnea Herndon Attending Unavailable ROXANN, Linnea Herndon Admitting Unavailable ROXANN, Linnea Herndon Attending Unavailable ROXANN, Linnea Herndon Admitting Unavailable ROXANN, Linnea Herndon Attending Unavailable ROXANN, Linnea Herndon Admitting Unavailable PACK, KIMBERLY Attending Unavailable RUDDY SLATER Referring Unavailable ROXANN, LINNEA [facility] Primary Care Unavailabl e BOBO PARSON Attending Unavailable PACK, KIMBERLY Referring Unavailable ROXANN, LINNEA [facility] Primary Care Unavailabl e PACK, KIMBERLY Referring Unavailable ROXANN, LINNEA [facility] Primary Care Unavailabl e PACK, KIMBERLY Referring Unavailable ROXANN, LINNEA [facility] Primary [facility] Unavailabl e PACK, KIMBERLY Referring Unavailable ROXANN, LINNEA JOB [facility] Unavailabl e ROXANN, [facility] Primary [facility] Unavailabl e MOSHE MANRIQUEZ Attending Unavailable KUSH MARMOLEJO Attending Unavailable ROXANN, LINNEA JOB Primary Care Unavailabl e Allergies Allergy Classification Reported Allergen(s) Allergy Type Date of Onset Reaction(s) Facility Bee/Wasp/Ant Venom (2 sources) Bee/Wasp/Ant venom Substance Allergy Anaphylaxis [facility] raspberry extract (2 sources) raspberry extract; Translations: [raspberry] Drug Allergy Eruption of skin (disorder) [facility] (20 sources) Bee/Wasp/Ant venom; Translations: [Bee Stings] Allergy to substance 4 Weal (disorder), Swelling (morphologic abnormality) [facility] (20 sources) raspberry extract; Translations: [raspberry] Drug Allergy 4 Eruption of skin (disorder) [facility] (12 sources) Parish; Translations: [BERRIES] Food Allergy 3 Hives [facility] (12 sources) Bees; Translations: [BEES] Allergy to substance 3 Anaphylaxis [facility] (20 sources) Honey bee venom Allergy to substance 3 Hives, Anaphylaxis [facility] (20 sources) raspberry allergenic extract Drug Allergy 3 Rash, Anaphylaxis [facility] (20 sources) Food Propensity to adverse reactions 0 Rash [facility] (20 sources) Other Propensity to adverse reactions 0 Unknown [facility] Work Phone: Medications Current Medications Medication Drug Class(es) Dates Sig (Normalized) Sig (Original) acetaminophen 325 mg / HYDROcodone bitartrate 5 mg oral tablet (12 sources) Opioid Agonist Start: 09-17-2024 take 1 tablet by mouth every four hours as needed HYDROcodone-aceta minophen ([place]) 5-325 MG tablet Take 1 tablet by [...] Active albuterol-budesonide HFA (AIRSUPRA) 90-80 mcg/actuation inhaler (6 sources) Start: 05-31-2023 take 2 puff(s) by inhalation every four hours as needed albuterol-budesonide HFA (AIRSUPRA) 90-80 mcg/actuation inhaler Inhale 2 puffs as instructed every 4 hours as needed. 05/31/2023 Active brompheniramine maleate 0.4 mg/ml / dextromethorphan hydrobromide 2 mg/ml / pseudoephedrine hydrochloride 6 mg/ml oral solution (3 sources) alpha-Adrenergic Agonist, Uncompetitive N-lvfhfx-Z-aspar zeng Receptor Antagonist, Sigma-1 Agonist Start: 05-26-2023 take 5 mL by mouth four times daily Bromfed DM oral syrup 5 mL, Oral, QID for cold symptoms, 200 mL, Refill(s) 0, [facility]/pharmacy #[id number], 173, cm, 05/25/23 22:46:00 EDT, Height/Length [...] tablet Orally Twic e a day Active cholecalciferol 0.025 mg oral capsule (20 sources) Vitamin D End: 10-14-2024 Cholecalciferol, Vitamin D3, (VITAMIN D) 25 mcg (1,000 unit) cap Take 1,000 Units by mouth once daily. Active Comment on above: Take 1,000 Units by mouth once daily. cyclobenzaprine hydrochloride 10 mg oral tablet (19 sources) Muscle Relaxant Start: 01-04-2022 take 1 tablet by mouth three times daily as needed for pain cyclobenzaprine 10 mg Tab 10 mg = 1 tab(s), Oral, TID, PRN Muscle pain, # 20 tab(s), Refills(s) 0, Pharmacy: [facility]/pharmacy #[id number], 174, cm, 01/04/22 0:47:00 EDT, Height/Length Dosing, 121.7, kg, 01/04/22 0:47:00 EDT, Weight Dosing Start Date: 01/04/22 Status: Ordered End: 10-31-2024 cyclobenzaprine (Flexeril) 5 MG tablet Take by mouth 10/31/2024 dextromethorphan hydrobromide 3 mg/ml / promethazine hydrochloride 1.25 mg/ml oral solution (20 sources) Phenothiazine, Uncompetitive Z-cvhvuq-I-aspartate Receptor Antagonist, Sigma-1 Agonist Start: 01-08-2024 promethazine-dextromethorpha [...] day(s), # 28 cap(s), Refills(s) 0, Pharmacy: [facility]/pharmacy #[id number], 173, cm, 02/14/23 2:34:00 EST, Height/Length Dosing, 119.3, kg, 02/14/23 2:34:00 EST, Weight Dosing Start Date: 02/14/23 Stop Date: 02/21/23 Status: Ordered Start: 02-14-2020 take 1 tablet by sheba th four times daily dicyclomine 20 mg Tab 20 mg = 1 tab(s), Oral, QID, # 12 tab(s), Refills(s) 0, Pharmacy: [facility]/pharmacy #[id number], 173, cm, 02/14/20 3:19:00 EST, Height/Length Dosing, 120, kg, 02/14/20 3:19:00 EST, Weight Dosing Start Date: 02/14/20 Status: Ordered doxycycline monohydrate 100 mg oral tablet (1 source) Tetracycline-class Drug Start: 10-13-2023 End: 10-20-2023 take 1 tablet by mouth twice daily doxycycline monohydrate 100 mg oral tablet 100 mg = 1 tab(s), Oral, BID, X 7 day(s), # 14 tab(s), Refills(s) 0, Pharmacy: [facility]/pharmacy #[id number], 173, cm, 10/13/23 7:45:00 EDT, Height/Length [...] day(s), # 7 tab(s), Refills(s) 0, Pharmacy: [facility]/pharmacy #[id number], 173, cm, 02/14/23 2:34:00 EST, Height/Length Dosing, 119.3, kg, 02/14/23 2:34:00 EST, Weight Dosing Start Date: 02/14/23 Stop Date: 02/21/23 Status: Ordered Start: 02-14-2020 take 1 tablet by sheba th twice daily Pepcid 20 mg Tab 20 mg = 1 tab(s), Oral, BID, # 15 tab(s), Refills(s) 0, Pharmacy: [facility]/pharmacy #[id number], 173, cm, 02/14/20 3:19:00 EST, Height/Length [...] mg oral tablet (20 sources) l-Thyroxine Start: take 1 tablet by mouth before mealtime levothyroxine (Synthroid) 112 MCG tablet Indications: Acquired hypothyroidism Take 1 tablet (112 mcg) by mouth in the morning. Take before meals. 30 tablet 3 04/18/2024 Active Start: 01-16-2023 End: 04-18-2024 take 1 tablet by mouth once daily Start: 12-09-2022 take 1 capsule by mo uth once daily levothyroxine 137 mcg (0.137 mg) [...] oral tablet (20 sources) Biguanide Start: End: 6 take 2 tablets by mouth every twenty-four [...] day(s), # 21 tab(s), Refills(s) 0, Pharmacy: [facility]/pharmacy #[id number], 173, cm, 10/13/23 7:45:00 EDT, Height/Length Dosing, 124.7, kg, 10/13/23 7:45:00 EDT, Weight Dosing Start Date: 10/13/23 Stop Date: 10/20/23 Status: Ordered metoclopramide 5 mg oral tablet (17 sources) Dopamine-2 Receptor Antagonist Start: take 1 [...] BID, # 20 tab(s), Refills(s) 0, Pharmacy: [facility]/pharmacy #[id number], 170, cm, 12/26/22 14:57:00 EDT, Height/Length [...] omeprazole 20 mg delayed release oral capsule (20 sources) Proton Pump Inhibitor Start: End: take 1 capsule by mouth in the morning omeprazole (PriLOSEC) [address] capsule Take 20 mg by mouth in the morning. 04/19/2024 07/13/2025 Active take 1 tablet by mouth once cornelius y PriLOSEC OTC 20 MG 1 tablet 30 minutes before morning meal Orally Once a day Active pantoprazole 40 mg delayed release oral tablet (15 sources) Proton Pump Inhibitor Start: 08-29-2024 End: [...] Status: Ordered predniSONE 20 mg oral tablet (11 sources) Start: 10-13-2023 take 3 tablets by mouth once daily predniSONE 20 mg Tab 3, Oral, Daily, # 15 tab(s), Refills(s) 0, [id number], cm, 10/13/23 7:45:00 EDT, Height/Length Dosing, 124.7, kg, 10/13/23 7:45:00 EDT, Weight Dosing Start Date: 10/13/23 Status: Ordered Start: 10-14-2022 End: 10-19-2022 take 3 tablets by mouth once daily predniSONE 20 mg Tab 60 mg = 3 tab(s), Oral, Daily, X 5 day(s), # 15 tab(s), Refills(s) 0, [id number] 172, cm, 10/14/22 16:35:00 EDT, Height/Length [...] q6hr for cough, 120 mL, Refill(s) 0, [id number], cm, 10/13/23 7:45:00 EDT, Height/Length Dosing, 124.7, kg, 10/13/23 7:45:00 EDT, Weight Dosing Start Date: 10/13/23 Status: Ordered Start: 11-26-2021 take 12.5 mg rectal route every four hours as needed for nausea promethazine 12.5 mg Supp 12.5 mg = 1 supp, Rectal, q4hr, PRN for nausea/vomiting, # 12 supp, Refills(s) 0, Pharmacy: [facility], 172, cm, 11/26/21 18:14:00 EDT, Height/Length Dosing, 120.5, kg, 11/26/21 18:14:00 EDT, Weight Dosing Start Date: 11/26/21 Status: Ordered Start: 11-24-2021 End: 11-29-2021 take 1 tablet by mouth every six hours as needed for nausea promethazine 12.5 mg oral tablet 12.5 mg = 1 tab(s), Oral, q6hr, PRN for nausea/vomiting, X 5 day(s), # 20 tab(s), Refills(s) 0, Pharmacy: [facility], 172.7, cm, 11/24/21 21:47:00 EDT, Height/Length Dosing, 120.5, kg, 11/24/21 21:47:00 EDT, Weight Dosing Start Date: 11/24/21 Stop Date: 11/29/21 Status: Ordered Zofran ODT 4 mg Tab-Dis (17 sources) Start: 05-26-2023 take 1 tablet by mouth every eight hours Zofran ODT 4 mg Tab-Dis 4 mg = 1 tab(s), Oral, q8hr, # 12 tab(s), Refills(s) 0, Pharmacy: [facility]/pharmacy #[id number], 173, cm, 05/25/23 22:46:00 EDT, Height/Length Dosing, 130.4, kg, 05/25/23 22:46:00 EDT, Weight Dosing Start Date: 05/26/23 Status: Ordered Start: 02-14-2020 take 1 tablet by sheba th every eight hours Zofran ODT 4 mg Tab-Dis 4 mg = 1 tab(s), Oral, q8hr, # 10 tab(s), Refills(s) 0, Pharmacy: [facility]/pharmacy #[id number], 173, cm, 02/14/20 3:19:00 EST, Height/Length [...] 6 tablet 01/08/2024 10/14/2024 Discontinued (Therapy completed) {21 (Desogestrel 0.15 MG / Ethinyl Estradiol 0.03 MG Oral Tablet) / 7 (Inert Ingredients 1 MG Oral Tablet) } Pack [Isibloom 28 Day] (10 sources) Progestin, Estrogen Start: 12-12-2022 take 1 tablet by mouth once daily Isibloom 0.15 mg-0.03 mg oral tablet 1 tab(s), Oral, Daily, Refill(s) 0, control/menstrual regulation Start Date: 12/12/22 Status: Ordered Start: 11-30-2022 take 1 tablet by sheba once daily Apri oral tablet 1 tab(s), [...] take 1 puff(s) by inhalation once daily Ahwnsxjwtfr-Hafomcocs-Gfqvne (Trelegy Ellipta) 200-62.5-25 MCG/ACT aerosol powder Indications: Mild intermittent asthma without complication (HCC) Inhale 1 puff Daily 1 each 5 05/31/2023 Active Start: 05-31-2023 take 1 puff(s) by inhalation once daily Npzxgqiqtyd-Bbsoqjvtw-Vungvq (Trelegy Ellipta) 200-62.5-25 MCG/ACT aerosol powder Indications: [...] regular cycle; Translations: [Amenorrhea] Onset: 11-12-2020 Chronic Mood disorders (20 sources) Depressive disorder; Translations: [Depression] Onset: 02-14-2023 Resolved: 05-26-2023 11-30-2022 Chronic Neoplasms of unspecified nature or uncertain [...] Onset: 02-14-2023 12-22-2022 Chronic Other gastrointestinal disorders (2 sources) Abdominal bloating; Translations: [Abdominal distension (gaseous)] 08-29-2024 Episodic Other lower respiratory disease (3 sources) [...] Spondylosis; intervertebral disc disorders; other back problems (5 sources) Neck pain; Translations: [Cervicalgia] Onset: 01-04-2022 Episodic [...] related fatigue syndromes] Onset: 08-02-2022 08-02-2022 Episodic Nausea and vomiting (20 sources) Nausea; Translations: [...] or lump] Onset: 11-22-2022 11-30-2022 Episodic Other gastrointestinal disorders (1 source) Abdominal distension (gaseous); Translations: [Abdominal bloating] Onset: 07-30-2024 Episodic Other infections; including parasitic (20 sources) [...] source) Onset: 09-12-2024 09-12-2024 Urinary tract infections (20 sources) Acute cystitis; Translations: [Acute cystitis with hematuria] Onset: 06-21-2024 07-08-2024 Episodic Viral infection (20 sources) Disease caused by 2019-nCoV; Translations: [COVID-19] Onset: 05-26-2023 Resolved: 05-26-2023 11-23-2021 Episodic Viral infection (3 sources) COVID-19; Translations: [Disease caused by 2019-nCoV] Onset: 11-23-2021 Resolved: 11-23-2021 Results Test Name Value Interpretation Reference Range Facility [facility] 11-05-2024 [facility] Nurse Visit (GASTPE) ADINA MARTINEZ ([id number]) 1995 F Date Time Provider Department 11/05/24 9:00 AM NURSE [facility] During your visit today, we recorded the following information about you: Ludy Fabian MA 11/05/2024 11:33 AM Signed Glucose - SIBO Hydrogen Breath Test November 05, 2024 Referring Physician: Kimberly Nava APRN.SMALL STOCK FACER Indication Nausea and Vomiting Prep: 4 weeks following: none 1 hour before: No Smoking Day of test - No gum chewing Baseline Hydrogen: 16 Methane: 9 Ludy Fabian MA Time given: 8:40am 50 grams / 50 grams Clock time start: 8:45am 15 minutes Hydrogen: 30 Methane: 9 Ludy Fabian MA 30 minutes Hydrogen: 22 Methane: 11 Ludy Fabian MA 45 minutes Hydrogen: 31 Methane: 11 Ludy Fabian MA 1 hour Hydrogen: 24 Methane: 10 Ludy Fabian MA 1 hour, 15 minutes Hydrogen: 23 Methane: 10 Ludy Fabian MA 1 hour, 30 minutes Hydrogen: 20 Methane: 8 Ludy Fabian MA Symptoms developed during the study: None Patient Results Preliminary Test Results (not given to patient): Pending Ludy Fabian MA Referring Provider: KIMBERLY NAVA [[id number]] Allergies As of Date: 11/05/2024 Noted Allergy Reaction BEES 02/03/2023 10 - Anaphylaxis BERRIES 02/03/2023 4 - Hives Comments: raspberries Date Reviewed: 08/29/2024 Reviewed by: Filomena Brink, RN - Fully Assessed Visit Diagnosis:Nausea and vomiting, unspecified vomiting type [R11.2] Order(s):BREATH TEST GLUCOSE [[id number]] Order #: [id number] Prescriptions as of 11/05/2024 - pantoprazole DR (PROTONIX) 40 mg tablet Take 1 tablet by mouth once daily. - albuterol-budesonide HFA (AIRSUPRA) 90-80 mcg/actuation inhaler [...] once daily. 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 Your glucose breath test is negative. (H2 or CH4 increases at least 12ppm over the lowest preceding value within the test period may be indicative of a positive study.) Please follow up with the ordering physician with instructions for next steps. Kush Marmolejo MD [employer] Glucose - SIBO Hydrogen Breath Test November 05, 2024 Referring Physician: Kimberly Nava APRN.SMALL STOCK FACER Indication Nausea and Vomiting Prep: 4 weeks following: none 1 hour before: No Smoking Day of test - No gum chewing Baseline Hydrogen: 16 Methane: 9 Ludy Restifo, MA Time given: 8:40am 50 grams / 50 grams Clock time start: 8:45am 15 minutes Hydrogen: 30 Methane: 9 Ludy Restifo, [place] 30 minutes Hydrogen: 22 Methane: 11 Ludy Restifo, [place] 45 minutes Hydrogen: 31 Methane: 11 Ludy Restifo, MA 1 hour Hydrogen: 24 Methane: 10 Ludy Restifo, MA 1 hour, 15 minutes Hydrogen: 23 Methane: 10 Ludy Restifo, MA 1 hour, 30 minutes Hydrogen: 20 Methane: 8 Ludy Restifo, [place] Symptoms developed during the study: None Patient Results Preliminary Test Results (not given to patient): Pending Ludy Restifo, [place] [employer] US MESENTERIC ARTERY CMPLT V LABon 10-31-2024 US MESENTERIC ARTERY CMPLT VAS LAB Non-Invasive Vascular Laboratory [facility] F30 Renal or Mesenteric Duplex Bilateral/Complete Date of service/time: 10/31/2024 8:08:19 AM Name: MS. ADINA MARTINEZ Date of : 1995 Age: 29 years Gender: F Clinical Indication Nausea, vomiting, and abdominal pain. TECHNIQUE -------- A visceral duplex ultrasound examination was performed, including grayscale imaging and color Doppler and spectral Doppler examination of the below mentioned arteries and veins. FINDINGS -------- Aorta proximal PSV: 102 cm/s. EDV: 21 cm/s. Aorta at renals PSV: 108 cm/s. EDV: 22 cm/s. Aorta mid PSV: 101 cm/s. EDV: 0 cm/s. Aorta distal PSV: 77 cm/s. EDV: 0 cm/s. Heterogeneous plaque in the abdominal aorta throughout. Celiac origin PSV: 196 cm/s. EDV: 83 cm/s. Celiac proximal PSV: 158 cm/s. EDV: 65 cm/s. Celiac mid PSV: 192 cm/s. EDV: 69 cm/s. Celiac with inspiration PSV: 142 cm/s. EDV: 33 cm/s. Hepatic proximal PSV: 148 cm/s. EDV: 33 cm/s. Splenic proximal PSV: 198 cm/s. EDV: 58 cm/s. Superior mesenteric artery origin PSV: 166 cm/s. EDV: 24 cm/s. Superior mesenteric artery proximal PSV: 270 cm/s. EDV: 48 cm/s. Superior mesenteric artery mid PSV: 90 cm/s. EDV: 16 cm/s. Superior mesenteric artery distal PSV: 67 cm/s. EDV: 0 cm/s. Inferior mesenteric artery origin PSV: 95 cm/s. EDV: 0 cm/s. Inferior mesenteric artery proximal PSV: 88 cm/s. EDV: 0 cm/s. Inferior mesenteric artery mid PSV: 73 cm/s. EDV: 0 cm/s. IMPRESSION AORTA Aorta plaque noted without evidence of hemodynamically significant stenosis throughout. MESENTERIC VESSELS Celiac: 0-69% stenosis. No evidence of hemodynamically significant stenosis. Hepatic: Patent. Splenic: Patent. Superior mesenteric artery: 0-69% stenosis. No evidence of hemodynamically significant stenosis. Inferior mesenteric artery: 0-69% stenosis. No evidence of hemodynamically significant stenosis. Technologist: Vera Balderas RVT Ordering physician: KIMBERLY NAVA Interpreting physician: KENNY Waters DO Final CC [facility] Image : [id number] amicsSISUID See Link below for Image Normal [facility] IGP,APTIMA HPV,AGE GDLNon AGE GDLN ACOG TESTING Note . [facility] Comment on above: TESTS RESULT FLAG ITS REF RANGE LAB Clinician Provided Cytology Information Source.............Cervix;Endocervix No. of containers..01 ThinPrep Vial Age Algo ACOG Davida... FLAG LEGEND: L-Low Normal,H-High Normal,LL-Alert Low,HH-Alert High <-Panic Low,>-Panic High,A-Abnormal,AA-Critical Abnormal Performed at: 01 =G [facility] [id number] Eloisa Perez MD, IGP, RFX APTIMA HPV ASCU Note . [facility] Comment on above: TESTS RESULT FLAG UN ITS REF RANGE LAB DIAGNOSIS: 02 NEGATIVE FOR INTRAEPITHELIAL LESION OR MALIGNANCY. Specimen adequacy: 02 Satisfactory for evaluation. Endocervical and/or squamous metaplastic cells (endocervical component) are present. Performed by: Brad Cunningham, Health Information Provider ([facility]) . 02 Note: Note 02 The Pap smear is a screening test designed to aid in the detection of premalignant and malignant conditions of the uterine cervix. It is not a diagnostic procedure and should not be used as the sole means of detecting cervical cancer. Both false-positive and false-negative reports do occur. Test Methodology: Note 02 This liquid based ThinPrep(R) pap test was screened with the use of an image guided system. . 02 The HPV DNA reflex criteria were not met with this specimen result therefore, no HPV testing was performed. FLAG LEGEND: L-Low Normal,H-High Normal,LL-Alert Low,HH-Alert High <-Panic Low,>-Panic High,A-Abnormal,AA-Critical Abnormal Performed at: 02 WB [facility] [address] [address] Eloisa Perez MD, Performed at: =G - [facility] [address] [id number] Suede Cleaner: Eloisa Perez MD, Phone: [phone] Performed at: - [facility] [id number] Suede Cleaner: Eloisa Perez MD, Phone: [phone] [facility]hon 10-24-2024 ABO/Rh Positive Invalid Interpretation Code [facility] Comment on above: Performed By: #### [id number] #### [facility] [address] [place] [address] ABO/Rh History Checkon 10-24 ABO/Rh History Check Patient discharged prior Normal [facility] Comment on above: Performed By: #### [id number] #### [facility] [address] [place] [address] ABSCon 10-24-2024 ABSC Gel Interp Negative Normal [facility] Comment on above: Performed By: #### 1 [id number] #### Mackenzie Meritus [facility] [address] [place] [address] Blood Bank ID#on 10-24-2024 BBID# [id number] Invalid Interpret[address] Code [facility] Comment on above: Performed By: #### 1 [id number] #### [facility] [address] [place] [address] [facility] ABO/RHon 10-24-2024 [facility] ABO/RH Positive [facility] BLOOD BANK ID#on 2024 [facility] BBID# [id number] [facility] No Panel Informationon 10-24 [facility] [address] [place] [address] [facility] Alanine aminotransferase [En zymatic activity/volume] in Serum or PlasmaOrdered By: Black Zaidi on 10-02-2024 ALT [Catalytic activity/Vol] 17 U/L Normal 7-52 [facility] Comment on above: Performed By: #### P ILLAR CMP, PILLAR CBC, PILLAR LIPID #### [facility] [address] [place] [address] [place] Albumin [Mass/volume] in Ser um or Plasma by Bromocresol green (BCG) dye binding methoOrdered By: Black Zaidi on 10-02-2024 Albumin BCG dye [Mass/Vol] 4.1 g/dL 3.5-5.7 [facility] Alkaline phosphatase [Enzyma tic activity/volume] in Serum or PlasmaOrdered By: Black Zaidi on 10-02-2024 ALP [Catalytic activity/Vol] 72 U/L Normal 34-104 [facility] Comment on above: Performed By: #### P ILLAR CMP, PILLAR CBC, PILLAR LIPID #### [facility] [address] [place] [id number] [place] Aspartate aminotransferase [ Enzymatic activity/volume] in Serum or PlasmaOrdered By: Black Zaidi on 10-02-2024 AST [Catalytic activity/Vol] 16 U/L Normal 13-39 [facility] Comment on above: Performed By: #### P ILLAR CMP, PILLAR CBC, PILLAR LIPID #### [facility] [address] Basophils [#/volume] in Bloo d by Automated countOrdered By: Black Zaidi on 10-02-2024 Basophils (Bld) [#/Vol] 0.1 10*3/uL Normal 0.0-0.2 [facility] Comment on above: Result Comment: PERF ORMED BY: [facility] [address] [place] [address] PATHOLOGIST PROGRESSIVE CARE MANAGER BENOIT MCKEON M.D. Performed By: #### P ILLAR CMP, PILLAR CBC, PILLAR LIPID #### [place] [address] [place] Basophils/100 leukocytes in Blood by Automated countOrdered By: Black Zaidi on 10-02-2024 Basophils/100 WBC (Bld) 0.9 % Normal . [facility] Comment on above: Performed By: #### P ILLAR CMP, PILLAR CBC, PILLAR LIPID #### [facility] [address] Bilirubin.total [Mass/volume ] in Serum or PlasmaOrdered By: Black Zaidi on 10-02-2024 Bilirubin [Mass/Vol] 0.4 mg/dL Normal 0.3-1.0 [facility] Comment on above: Performed By: #### P ILLAR CMP, PILLAR CBC, PILLAR LIPID #### [facility] [address] [place] [address] [place] Calcium [Mass/volume] in Ser um or PlasmaOrdered By: Black Zaidi on 10-02-2024 Calcium [Mass/Vol] 8.6 mg/dL Normal 8.6-10.3 [facility] Comment on above: Performed By: #### P ILLAR CMP, PILLAR CBC, PILLAR LIPID #### [facility] [address] [place] [address] [place] Carbon dioxide, total [Moles /volume] in Serum or PlasmaOrdered By: Black Zaidi on 10-02-2024 CO2 [Moles/Vol] 25.2 mmol/L Normal 21.0-31.[address] [facility] Comment on above: Performed By: #### P ILLAR CMP, PILLAR CBC, PILLAR LIPID #### [facility] [address] [place] [address] [place] Chloride [Moles/volume] in S ministerio or PlasmaOrdered By: Black Zaidi on 10-02-2024 Chloride [Moles/Vol] 106 mmol/L Normal 98-107 [facility] Comment on above: Performed By: #### P ILLAR CMP, PILLAR CBC, PILLAR LIPID #### [facility] [address] [place] [address] [place] Cholesterol [Mass/volume] in Serum or PlasmaOrdered By: Black Zaidi on 10-02-2024 Cholesterol [Mass/Vol] 143 mg/dL Normal 140-200 [facility] Comment on above: Chol less than 200 m g/dl low riskChol 201-239 mg/dl borderline riskChol 240 mg/dl and greater high risk Result Comment: Chol less than 200 mg/dl low risk Chol 201-239 mg/dl borderline risk Chol 240 mg/dl and greater high risk Performed By: #### P ILLAR CMP, PILLAR CBC, PILLAR LIPID #### [facility] [address] [place] [id number] [place] Cholesterol in HDL [Mass/vol ume] in Serum or PlasmaOrdered By: Black Zaidi on 10-02-2024 Cholesterol in HDL [Mass/Vol] 37 mg/dL Normal 23-92 [facility] Comment on above: HDL CHOL ATP-III CLA SSIFICATION Cardiovascular RiskHDL > or equal to 60 mg/dL LOWHDL < 40 mg/dL HIGH Result Comment: HDL CHOL ATP-III CLASSIFICATION Cardiovascular Risk HDL > or equal to 60 mg/dL LOW HDL < 40 mg/dL HIGH Performed By: #### P ILLAR CMP, PILLAR CBC, PILLAR LIPID #### [facility] [address] [place] [id number] [place] Cholesterol in LDL Calc [Mas s/Vol]Ordered By: Black Zaidi on 10-02-2024 Cholesterol in LDL [Mass/Vol] 93 mg/dL 0-100 [facility] Comment on above: LDL ATP III CLASSIFI CATIONLDL less than 100 mg/dL OptimalLDL 100-129 mg/dL Near or above optimalLDL 130-159 mg/dL Borderline highLDL 160-189 mg/dL HighLDL greater than 189 mg/dL Very high Cholesterol in VLDL Calc [Ma ss/Vol]Ordered By: Black Zaidi on 10-02-2024 Cholesterol in VLDL [Mass/Vol] 13 mg/dL [facility] Creatinine [Mass/volume] in Serum or PlasmaOrdered By: Black Zaidi on 10-02-2024 Creatinine [Mass/Vol] 0.78 mg/dL Normal 0.60-1.20 [facility] Comment on above: Performed By: #### P ILLAR CMP, PILLAR CBC, PILLAR LIPID #### [address] Employee Comp Metabolic Pane angelica 10-02-2024 Albumin [Mass/Vol] 4.1 g/dL Normal 3.5-5.7 [facility] Comment on above: Performed By: #### P ILLAR CMP, PILLAR CBC, PILLAR LIPID #### [address] GFR/1.73 sq M.predicted MDRD (S/P/Bld) [Vol rate/Area] mL/min/{1.73_m2} Normal The Count Includes [facility] Comment on above: Performed By: #### P ILLAR CMP, PILLAR CBC, PILLAR LIPID #### [facility] [address] [place] [address] Employee Complete Blood Coun ton 10-02-2024 Mean Corpuscular HGB Conc 33.5 g/dL Normal 32.0-35.0 The Count Includes [facility] Comment on above: Performed By: #### P ILLAR CMP, PILLAR CBC, PILLAR LIPID #### [address] NRBC% 0.1 /100{WBC} Normal 0-0.5 [facility] Comment on above: Performed By: #### P ILLAR CMP, PILLAR CBC, PILLAR LIPID #### [facility] [address] White Blood Count 8.7 [CFU]/mL Normal 3.8-11.6 [facility] Comment on above: Performed By: #### P ILLAR CMP, PILLAR CBC, PILLAR LIPID #### [facility] [address] Employee Lipid Profileon LDL Cholesterol,Calculated 93 mg/dL Normal 0-100 [facility] Comment on above: Result Comment: LDL ATP III CLASSIFICATION LDL less than 100 mg/dL Optimal LDL 100-129 mg/dL Near or above optimal LDL 130-159 mg/dL Borderline high LDL 160-189 mg/dL High LDL greater than 189 mg/dL Very high Performed By: #### P ILLAR CMP, PILLAR CBC, PILLAR LIPID #### [facility] [address] Triglyceride w/Reflex 65 mg/dL Normal 0-149 The Count Includes [facility] Comment on above: Result Comment: TRIG ATP III CLASSIFICATION TRIG less than 150 mg/dL Normal TRIG 150-199 mg/dL Borderline high TRIG 200-500 mg/dL High TRIG greater than 500 mg/dL Very high Standard traceable to the Center for Disease Conrtrol and Prevention (CDC) test method. Performed By: #### P ILLAR CMP, PILLAR CBC, PILLAR LIPID #### [facility] [address] VLDL CHOLESTEROL 13 mg/dL Normal [facility] Comment on above: Performed By: #### P ILLAR CMP, PILLAR CBC, PILLAR LIPID #### [facility] [address] Eosinophils [#/volume] in Bl ood by Automated countOrdered By: Black Zaidi on 10-02-2024 Eosinophils (Bld) [#/Vol] 0.1 10*3/uL Normal 0.0-0.45 [facility] Comment on above: Performed By: #### P ILLAR CMP, PILLAR CBC, PILLAR LIPID #### [facility] [address] [place] [address] [place] Eosinophils/100 leukocytes i n Blood by Automated countOrdered By: Black Zaidi on 10-02-2024 Eosinophils/100 WBC (Bld) 0.8 % Normal . [facility] Comment on above: Performed By: #### P ILLAR CMP, PILLAR CBC, PILLAR LIPID #### [facility] [address] [place] [address] Erythrocyte distribution wid th [Ratio] by Automated countOrdered By: Black Zaidi on 10-02-2024 Erythrocyte distribution width (RBC) [Ratio] 14.1 % Normal 11.9-15.3 [facility] Comment on above: Performed By: #### P ILLAR CMP, PILLAR CBC, PILLAR LIPID #### [address] Erythrocytes [#/volume] in B lood by Automated countOrdered By: Black Zaidi on 10-02-2024 RBC (Bld) [#/Vol] 4.14 10*6/uL Normal 3.60-5.[address] [facility] Comment on above: Performed By: #### P ILLAR CMP, PILLAR CBC, PILLAR LIPID #### [place] [address] [place] Glucose [Mass/volume] in Ser um or PlasmaOrdered By: Black Zaidi on 10-02-2024 Glucose [Mass/Vol] 92 mg/dL Normal 70-100 [facility] Comment on above: Performed By: #### P ILLAR CMP, PILLAR CBC, PILLAR LIPID #### [place] [address] [place] Hematocrit [Volume Fraction] of Blood by Automated countOrdered By: Black Zaidi on 10-02-2024 Hematocrit (Bld) [Volume fraction] 36.0 % Normal 34.0-46.4 [facility] Comment on above: Performed By: #### P ILLAR CMP, PILLAR CBC, PILLAR LIPID #### [place] [address] [place] Hemoglobin [Mass/volume] in BloodOrdered By: Black Zaidi on 10-02-2024 Hemoglobin (Bld) [Mass/Vol] 12.0 g/dL Normal 11.8-15.4 [facility] Comment on above: Performed By: #### P ILLAR CMP, PILLAR CBC, PILLAR LIPID #### [address] Leukocytes [#/volume] correc kiki for nucleated erythrocytes in Blood by Automated counOrdered By: Black Zaidi on 10-02-2024 WBC corrected for nucl RBC Auto (Bld) [#/Vol] 8.7 10*3/uL 3.8-11.6 [facility] Leukocytes [#/volume] in Blo od by Automated countOrdered By: Black Zaidi on 10-02-2024 WBC (Bld) [#/Vol] 8.7 10*3/uL Normal 3.8-11.6 [facility] Comment on above: Performed By: #### P ILLAR CMP, PILLAR CBC, PILLAR LIPID #### [address] Lymphocytes [#/volume] in Bl ood by Automated countOrdered By: Black Zaidi on 10-02-2024 Lymphocytes (Bld) [#/Vol] 2.1 10*3/uL Normal 1.00-4.8 [facility] Comment on above: Performed By: #### P ILLAR CMP, PILLAR CBC, PILLAR LIPID #### [address] Lymphocytes/100 leukocytes i n Blood by Automated countOrdered By: Black Zaidi on 10-02-2024 Lymphocytes/100 WBC (Bld) 24.0 % Normal . [facility] Comment on above: Performed By: #### P ILLAR CMP, PILLAR CBC, PILLAR LIPID #### [place] [address] [place] MCH [Entitic mass] by Automa kiki countOrdered By: Black Zaidi on 10-02-2024 MCH (RBC) [Entitic mass] 29.1 pg Normal 24.7-34.3 [facility] Comment on above: Performed By: #### P ILLAR CMP, PILLAR CBC, PILLAR LIPID #### [facility] [address] MCHC Auto (RBC) [Mass/Vol]Or dered By: Black Zaidi on 10-02-2024 MCHC (RBC) [Mass/Vol] 33.5 g/dL 32.0-35.0 [facility] MCV [Entitic volume] by Auto mated countOrdered By: Black Zaidi on 10-02-2024 MCV (RBC) [Entitic vol] 86.8 fL Normal 80-100 [facility] Comment on above: Performed By: #### P ILLAR CMP, PILLAR CBC, PILLAR LIPID #### [address] Monocytes [#/volume] in Bloo d by Automated countOrdered By: Black Zaidi on 10-02-2024 Monocytes (Bld) [#/Vol] 0.4 10*3/uL Normal 0.0-0.8 [facility] Comment on above: Performed By: #### P ILLAR CMP, PILLAR CBC, PILLAR LIPID #### [facility] [address] [place] [address] [place] Monocytes/100 leukocytes in Blood by Automated countOrdered By: Black Zaidi on 10-02-2024 Monocytes/100 WBC (Bld) 4.2 % Normal . [facility] Comment on above: Performed By: #### P ILLAR CMP, PILLAR CBC, PILLAR LIPID #### [facility] [address] [place] [address] [place] Neutrophils [#/volume] in Bl ood by Automated countOrdered By: Black Zaidi on 10-02-2024 Neutrophils (Bld) [#/Vol] 6.1 10*3/uL Normal 1.8-7.7 [facility] Comment on above: Performed By: #### P ILLAR CMP, PILLAR CBC, PILLAR LIPID #### [facility] [address] [place] [address] [place] Neutrophils/100 leukocytes i n Blood by Automated countOrdered By: Black Zaidi on 10-02-2024 Neutrophils/100 WBC (Bld) 70.1 % Normal . [facility] Comment on above: Performed By: #### P ILLAR CMP, PILLAR CBC, PILLAR LIPID #### [facility] [address] [place] [address] No Panel InformationOrdered By: Black Zaidi on 10-02-2024 Estimated GFR (CKD-EPI) > 60.0 mL/Min [facility] Creatinine Clearance (Chem N/A [facility] Nucleated erythrocytes [Pres ence] in Blood by Automated countOrdered By: Black Zaidi on 10-02-2024 Nucleated RBC Auto Ql (Bld) 0.1 /100{WBC} 0-0.5 [facility] Platelet mean volume [Entiti c volume] in Blood by Automated countOrdered By: Black Zaidi on 10-02-2024 Platelet mean volume (Bld) [Entitic vol] 8.6 fL Normal 6.3-10.7 [facility] Comment on above: Performed By: #### P ILLAR CMP, PILLAR CBC, PILLAR LIPID #### [facility] [address] [place] [address] Platelets [#/volume] in Bloo d by Automated countOrdered By: Black Zaidi on 10-02-2024 Platelets (Bld) [#/Vol] 308 10*3/uL Normal 150-450 [facility] Comment on above: Performed By: #### P ILLAR CMP, PILLAR CBC, PILLAR LIPID #### [facility] [address] [place] [address] [place] Potassium [Moles/volume] in Serum or PlasmaOrdered By: Black Zaidi on 10-02-2024 Potassium [Moles/Vol] 4.3 mmol/L Normal 3.5-5.1 [facility] Comment on above: Performed By: #### P ILLAR CMP, PILLAR CBC, PILLAR LIPID #### [facility] [address] [place] [address] [place] Protein [Mass/volume] in Ser um or PlasmaOrdered By: Black Zaidi on 10-02-2024 Protein [Mass/Vol] 6.5 g/dL Normal 6.4-8.9 [facility] Comment on above: Performed By: #### P ILLAR CMP, PILLAR CBC, PILLAR LIPID #### [facility] [address] Serum globulin measurement b y calculation (mass/volume)Ordered By: Black Zaidi on 10-02-2024 Globulin (S) [Mass/Vol] 2.4 g/dL Normal [facility] Comment on above: Performed By: #### P ILLAR CMP, PILLAR CBC, PILLAR LIPID #### [facility] [address] Serum or plasma albumin/glob ulin mass ratioOrdered By: Black Zaidi on 10-02-2024 Albumin/Globulin [Mass ratio] 1.7 {ratio} Normal [facility] Comment on above: Performed By: #### P ILLAR CMP, PILLAR CBC, PILLAR LIPID #### [facility] [address] [place] [address] Serum or plasma anion gap de terminationOrdered By: Black Zaidi on 10-02-2024 Anion gap [Moles/Vol] 10.1 mmol/L Normal 6.0-15.0 [facility] Comment on above: Performed By: #### P ILLAR CMP, PILLAR CBC, PILLAR LIPID #### [facility] [address] [place] [address] Serum or plasma total choles terol/high density lipoprotein (HDL) cholesterol mass ratOrdered By: Black Zaidi on 10-02-2024 Cholesterol.total/Ioana sterol in HDL [Mass ratio] 3.9 {ratio} Normal <5.0 [facility] Comment on above: Result Comment: PERF ORMED BY: [place] [address] PATHOLOGIST PROGRESSIVE CARE MANAGER BENOIT MCKEON M.D. Performed By: #### P ILLAR CMP, PILLAR CBC, PILLAR LIPID #### [facility] [address] [place] [address] Sodium [Moles/volume] in Ser um or PlasmaOrdered By: Black Zaidi on 10-02-2024 Sodium [Moles/Vol] 137 mmol/L Normal 136-145 [facility] Comment on above: Performed By: #### P ILLAR CMP, PILLAR CBC, PILLAR LIPID #### [facility] [address] [place] [id number] [facility] Triglyceride [Mass/volume] i n Serum or PlasmaOrdered By: Black Zaidi on 10-02-2024 Triglyceride [Mass/Vol] 65 mg/dL 0-149 [facility] Comment on above: TRIG ATP III CLASSIF ICATIONTRIG less than 150 mg/dL NormalTRIG 150-199 mg/dL Borderline highTRIG 200-500 mg/dL High TRIG greater than 500 mg/dL Very highStandard traceable to the Center for Disease Conrtrol and Prevention (CDC) test method. Urea nitrogen [Mass/volume] in Serum or PlasmaOrdered By: Black Zaidi on 10-02-2024 Urea nitrogen [Mass/Vol] 9 mg/dL Normal 7-25 [facility] Comment on above: Performed By: #### P ILLAR CMP, PILLAR CBC, PILLAR LIPID #### [facility] [address] [place] [id number] [facility] [place] GASTRIC EMPTYING SOLIDon 09-27-2024 * * *Final Report* * * DATE OF EXAM: Sep 24 2024 12:45PM [facility] 0017 - [place] GASTRIC EMPTYING SOLID / [...] gastric emptying rate for the solid meal. Ornament Stitcher: BRIT Transcribe Date/Time: Sep 27 2024 11:50A Dictated by : PIETRO JONES MD This examination was interpreted and the report reviewed and electronically signed by: PIETRO JONES MD on Sep 27 2024 11:51AM EST [id number] ^ACN [facility] Radiology, Radiologist, - 09/27/2024 * * *Final [...] gastric emptying rate for the solid meal. Ornament Stitcher: [facility] Transcribe Date/Time: Sep 27 2024 11:50A Dictated by : PIETRO JONES MD This examination was interpreted and the report reviewed and electronically signed by: PIETRO JONES MD on Sep 27 2024 11:51AM EST [id number]^SI ^ACN [facility] NM GASTRIC EMPTYING SOLIDOrd ered By: Radiologist Radiology on 09-27-2024 [facility] Work Phone: [place] GASTRIC EMPTYING SOLIDon 09-24-2024 [...] gastric emptying rate for the solid meal. Ornament Stitcher: [facility] Date/Time: Sep 27 2024 11:50A Dictated by : PIETRO JONES MD This examination was interpreted and the report reviewed and electronically signed by: PIETRO JONES MD on Sep 27 2024 11:51AM EST [id number] Normal [facility] Radiology Study observation (narrative) [facility] Urine Cultureon 09-16-2024 Bacteria identified Cx Nom (U) <9,000 colonies/ml mixed bacterial skin contaminants 2 Days PERFORMED BY: [place] [address] PATHOLOGIST PROGRESSIVE CARE MANAGER BENOIT MCKEON M.D. Normal The Count Includes [facility] Comment on above: Performed By: #### C UU #### [address] Urine cultureOrdered By: Darryn Ash on 09-16-2024 Bacteria identified Cx Nom (U) 2 Days [facility] ANES POSTPROC EVALon 025 ANES POSTPROC EVAL HNO ID: [id number] Author: CAMI RIVERA APRN.PARKING SUPERVISOR Service: Anesthesiology Author Type: Nurse Hearing Aid Repairer Type: Anesthesia Postprocedure Evaluation Filed: 08/30/2024 12:20 [...] August 30, 2024 TIME: 12:18 PM CSN: [id number] Normal [facility] ANES PRE-OPon 08-29-2024 ANES PRE-OP HNO ID: [id number] Author: CAMI RIVERA APRN.CRNA Service: Anesthesiology Author Type: Nurse Hearing Aid Repairer Type: Anesthesia Preprocedure Evaluation Filed: 08/29/2024 11:03 [...] August 29, 2024 TIME: 11:00 AM CSN: [id number] Normal [facility] COLONOSCOPYon 08-29-2024 [facility] Gastroenterology Gastrointestinal Endoscopy Patient Name: Adina Martinez Procedure Date: 08/29/2024 11:23 AM Date of : 1995 Admit Type: Outpatient Age: 29 Room: [facility] 1 Gender: Female Note Status: Finalized Attending MD: Bobo Parson MD, [id number] Procedure: Colonoscopy Indications: Generalized abdominal pain Providers: [...] by the physician, the nurse and the mud tank operator in the procedure room at 11:11. [...] not included)... F Radiology, Radiologist, - 08/29/2024 [facility] Gastroenterology Gastrointestinal Endoscopy Patient Name: Adina Martinez Procedure Date: 08/29/2024 11:23 AM Date of : 1995 Admit Type: Outpatient Age: 29 Room: [place] [address] Gender: Female Note Status: Finalized Attending MD: Bobo Parson MD, [id number] Procedure: Colonoscopy Indications: Generalized abdominal pain Providers: [...] by the physician, the nurse and the mud tank operator in the procedure room at 11:11. [...] home (ambulatory). Procedure Code(s): --- Professional --- 54215, Colonoscopy, flexible; diagnostic, including collection of specimen(s) by brushing or washing, when performed (separate procedure) Diagnosis Code(s): --- Professional --- R10.84, Generalized abdominal pain CPT copyright 2020 [employer]. All rights reserved. The codes documented in this report are preliminary and upon shipmaster review may be revised to meet current compliance requirements. Scope In: 11:25:29 AM Scope Out: 11:38:57 AM MD Bobo Sparks MD 08/29/2024 11:41:28 AM This report has been signed electronically by Bobo Parson MD Number (more content not included)... [email or web address] COLONOSCOPYOrdered By: [facility] on 08-29-2024 [email or web address] Work Phone: Colonoscopyon 08-29-2024 Colonoscopy [facility] Gastroenterology Gastrointestinal Endoscopy Patient Name: Adina Martinez Procedure Date: 08/29/2024 11:23 AM Date of : 1995 Admit Type: Outpatient Age: 29 Room: [place] [address] Gender: Female Note Status: Facility Maintenance Helper Override Attending MD: Bobo Parson MD, [id number] Procedure: Colonoscopy Indications: Generalized abdominal pain Providers: Bobo Parson MD Patient Profile: This is a 29 year old female. Refer to note in patient chart for documentation of history and physical. Last Colonoscopy: none. The patient's first colonoscopy is today. Referring Physician: Kimberly Nava CNP (Referring MD), Linnea Hackett (Referring ) Medicines: Monitored Anesthesia Care Complications: [...] by the physician, the nurse and the mud tank operator in the procedure room at 11:11. [...] home (ambulatory). Procedure Code(s): --- Professional --- 27524, Colonoscopy, flexible; diagnostic, including collection of specimen(s) by brushing or washing, when performed (separate procedure) Diagnosis Code(s): --- Professional --- R10.84, Generalized abdominal pain CPT copyright 2020 [employer]. All rights reserved. The codes documented in this report are preliminary and upon shipmaster review may be revised to meet current compliance requirements. Scope In: 11:25:29 AM Scope Out: 11:38:57 AM MD Bobo Sparks MD 08/29/2024 11:41:28 AM This report has been signed electronically by Bobo Parson MD Number of Addenda: 0 Note Initiated On: 08/29/2024 11:23 AM (more content not included)... Normal [facility] Colonoscopy studyon 08-30-[address] [place] [address] Gastroenterology Gastrointestinal Endoscopy Patient Name: Adina Martinez Procedure Date: 08/29/2024 11:23 AM Date of : 1995 Admit Type: Outpatient Age: 29 Room: [place] [address] Gender: Female Note Status: Finalized Attending MD: Bobo Parson MD, [id number] Procedure: Colonoscopy Indications: Generalized abdominal pain Providers: [...] by the physician, the nurse and the mud tank operator in the procedure room at 11:11. [...] available for (more content not included)... [facility] EGD Study observation Irasema villanueva 08-29-2024 [facility] Gastroenterology Gastrointestinal Endoscopy Patient Name: Adina Martinez Procedure Date: 08/29/2024 11:02 AM Date of : 1995 Admit Type: Outpatient Age: 29 Room: [place] [address] Gender: Female Note Status: Finalized Attending MD: Bobo Parson MD, [id number] Procedure: Upper GI endoscopy Indications: Nausea with [...] by the physician, the nurse and the mud tank operator in the procedure room at 11:11. [...] clinical course. (more content not included)... PROVATION [facility] HISTORY PHYSICALon HISTORY PHYSICAL HNO ID: [id number] Author: BOBO PARSON MD Service: Gastroenterology Author [...] Additional Comments: None Bobo Parson MD Normal [facility] NURSING PROGon 08-29-2024 NURSING PROG HNO ID: [id number] Author: TASIA EL, CONY Service: Nursing Author Type: Registered Nurse Type: [...] El RN In Department: AMBULATORY SURGERY Normal [facility] No Panel Informationon 08-29 Radiology Study observation (narrative) [facility] Radiology Study observation (narrative) [facility] Pathology biopsy report Brodie (Tiss)on 08-29-2024 AP DISCLAIMER Normal [facility] Comment on above: Order Comment: Speci men Type: TISSUE SPECIMENOrdering Facility: [facility] Address: [address] [place] [address] Result Comment: Leslie hancock Developed Test (LDT) Disclaimer: Performance characteristics of immunohistochemical, immunofluorescent, and chromogenic in-situ hybridization tests have been determined by the performing laboratory within [facility]'s [facility] Pathology and Laboratory Medicine Department ([facility], [facility], [facility], [facility], [facility], [facility], or [facility]) in a manner consistent with CLIA requirements. One or more of these tests may not have been cleared or approved by the FDA. [facility] is regulated under CLIA as qualified to perform high-complexity testing. These tests are used for clinical purposes. These should not be regarded as investigational or for research. Positive and negative controls stain appropriately. Performed By: #### 6 6121-5 ####[facility] LABCL[facility] [id number] [place] [address] [place] CASE REPORT Normal [facility] Comment on above: Order Comment: Speci men Type: TISSUE SPECIMENOrdering Facility: [facility] Address: [address] [place] [address] Result Comment: Surg ical Pathology Report Case: [id number] Authorizing Provider: Bobo Parson MD Collected: 08/29/2024 11:16 AM Ordering Location: Ambulatory Surgery Received: 08/29/2024 08:14 PM Pathologist: Ed Pruett MD, PhD Specimens: A) - Small Bowel, Duodenum, Biopsy, r/o celiac B) - Stomach, Biopsy, r/o h. pylori C) - Esophagus, Biopsy, r/o eoe and barretts Performed By: #### 6 6121-5 ####[facility] LABCLIA [id number] [address] FINAL DIAGNOSIS Normal [facility] Comment on above: Order Comment: Speci men Type: TISSUE SPECIMENOrdering Facility: [facility] Address: [address] [place] [address] Result Comment: A. D uodenum, biopsy: - Duodenal mucosa with no significant diagnostic abnormality. B. Stomach, biopsy: - Reactive gastric antral and oxyntic mucosa with focal minimally active inflammation. - No evidence of H. pylori microorganisms on H&E sections. C. Esophagus, biopsy: - Reactive squamous mucosa and inflamed gastric cardia-type mucosa, negative for intestinal metaplasia. at 1549 EDT Performed By: #### 6 6121-5 ####[facility] LABCLIA [id number] [address] OF [facility] FINAL PERFORMING LAB Normal [facility] Comment on above: Order Comment: Speci men Type: TISSUE SPECIMENOrdering Facility: [facility] Address: [address] [place] [address] Result Comment: Diag nostic interpretation performed at: [facility], [address] [place] [address] CLIA# [id number] Hearing Impaired Teacher: Jose Heaton MD Performed By: #### 6 6121-5 ####[facility]CL[facility] [id number] [address] OF [facility] GROSS DESCRIPTION Normal [facility] Comment on above: Order Comment: Speci men Type: TISSUE SPECIMENOrdering Facility: [facility] Address: [address] [place] [address] Result Comment: A. S mall Bowel, Duodenum, [...] 2024 12:14 AM Gross examination performed at [facility], [address] [place] [address] Performed By: #### 6 6121-5 ####[facility]CLIA [id number] [address] UPPER GI ENDOSCOPYon [address] [place] [address] Gastroenterology Gastrointestinal Endoscopy Patient Name: Adina Martinez Procedure Date: 08/29/2024 11:02 AM Date of : 1995 Admit Type: Outpatient Age: 29 Room: [place] [address] Gender: Female Note Status: Finalized Attending MD: Bobo Parson MD, [id number] Procedure: Upper GI endoscopy Indications: Nausea with [...] by the physician, the nurse and the mud tank operator in the procedure room at 11:11. [...] not included)... [facility], Radiologist, - 08/29/2024 [facility] Gastroenterology Gastrointestinal Endoscopy Patient Name: Adina Martinez Procedure Date: 08/29/2024 11:02 AM Date of : 1995 Admit Type: Outpatient Age: 29 Room: [place] [address] Gender: Female Note Status: Finalized Attending MD: Bobo Parson MD, [id number] Procedure: Upper GI endoscopy Indications: Nausea with [...] by the physician, the nurse and the mud tank operator in the procedure room at 11:11. [...] colonoscopy today. Procedure Code(s): --- Professional --- 90258, Esophagogastroduodeno scopy, flexible, transoral; with biopsy, single or multiple Diagnosis Code(s): --- Professional --- K21.00, Gastro-esophageal reflux disease with esophagitis, without bleeding R11.2, Nausea with vomiting, unspecified CPT copyright 2020 [employer]. All rights reserved. The codes documented in this report are preliminary and upon shipmaster review may be revised to meet current compliance requirements. Scope In: 11:15:53 AM Scope Out: 11:20:18 AM MD Bobo Sparks MD 08/29/2024 11:23:44 AM This report has been signed electronically by Bobo Parson MD Number of Addenda: 0 Note Initiated On: 08/29/2024 11:02 AM Estimated Blood Loss: Estimated blood loss: none. [facility] UPPER GI ENDOSCOPYOrdered By : Radiologist Radiology on 08-29-2024 [facility] Work Phone: Upper GI endoscopyon 025 Upper GI endoscopy [facility] Gastroenterology Gastrointestinal Endoscopy Patient Name: Adina Martinez Procedure Date: 08/29/2024 11:02 AM Date of : 1995 Admit Type: Outpatient Age: 29 Room: [facility] Gender: Female Note Status: Facility Maintenance Helper Override Attending MD: Bobo Parson MD, [id number] Procedure: Upper GI endoscopy Indications: Nausea with [...] by the physician, the nurse and the mud tank operator in the procedure room at 11:11. [...] colonoscopy today. Procedure Code(s): --- Professional --- 20657, Esophagogastroduodeno scopy, flexible, transoral; with biopsy, single or multiple Diagnosis Code(s): --- Professional --- K21.00, Gastro-esophageal reflux disease with esophagitis, without bleeding R11.2, Nausea with vomiting, unspecified CPT copyright 2020 [employer]. All rights reserved. The codes documented in this report are preliminary and upon shipmaster review may be revised to meet current compliance requirements. Scope In: 11:15:53 AM Scope Out: 11:20:18 AM MD Bobo Sparks MD 08/29/2024 11:23:44 AM This report has been signed electronically by Boob Parson MD Number of Addenda: 0 Note Initiated On: 08/29/2024 11:02 AM Estimated Blood Loss: Estimated blood loss: none. Normal [facility] CA tilt table teston 025 CA tilt table test [facility] [place] [address] Cardiology Report Signed Patient: Adina Martinez MR#: [id number] : 1995 Acct:[id number] Age/Sex: 29 / F ADM Date: 08/28/24 Loc: Room: Type: [facility] Attending Dr: Quique Vazquez MD Copies to: [...] continue her long-term followup with her primary process consultant. Transcribed By: MARY JANE 08/28/24 1738 Dictated By: Nidia Hughes MD 08/28/24 1010 Signed By: 08/29/24 1718 Normal The Count Includes [facility] CT abdomen pelvis wo conon 0 08-14-2024 CT abdomen pelvis wo [facility] [place] [address] CT Scan Report Signed Patient: Adina Martinez MR#: [id number] : 1995 Acct:[id number] Age/Sex: 29 / F ADM Date: 08/14/24 Loc: CT Room: Type: [facility] Attending Dr: Linnea Hackett PA-C, Copies [...] hydronephrosis. Prior cholecystectomy.[ GI: Small hiatal hernia. Bmww-eo-iuhdtrky retained stool within the colon. Mild colonic [...] Miller M.D. 08/14/2024 11:03 AM Dictation Location: [facility]-- Transcribed By: [facility] 08/14/24 1103 Dictated By: Meet Miller MD 08/14/24 1031 Signed By: 08/14/24 1103 Normal The Count Includes [facility] CNOVon 07-30-2024 CNOV Office Visit ([facility] ) ADINA MARTINEZ ([id number]) 1995 F Date Time Provider Department 07/30/24 8:50 AM KIMBERLY NAVA [place] During your visit today, we recorded the following information about you: Pulse Blood pressure Weight 85/minute 120/81 124.6 kg Kimberly Nava APRN.SMALL STOCK FACER 07/30/2024 9:42 AM Signed Consultation requested by [...] and af (more content not included)... Normal [facility] HISTORY PHYSICALon HISTORY PHYSICAL HNO ID: [id number] Author: KIMBERLY NAVA APRN.SMALL STOCK FACER Service: ? Author Type: Nurse Practitioner Type: [...] obesity and (more content not included)... Normal [facility], [address], [place] [address] TRANSTHORACIC ECHOCARDIOGRAM REPORT Patient Name: ADINA MARTINEZ Reading Physician: [id number] Quique Vazquez MD, [facility] Study Date: 07/10/2024 Ordering Provider: [id number] QUIQUE VAZQUEZ MRN/PID: [id number] Fellow: Nurse: Date of /Age: 11 1995 / years Woods Boss: Marli Gloria RDCS, RVT Gender Assigned at F Additional Staff: : Height: 172.72 cm Admit Date: Weight: 129.73 kg Admission Status: BSA / BMI: 2.38 m2 / 43.49 Department Location: [facility] kg/m2 Heart [place] Blood Pressure: 114 /82 mmHg Study Type: TRANSTHORACIC ECHO (TTE) COMPLETE Diagnosis/ICD: Syncope-R55 Indication: Tachycardia, Morbid Obesity, Hypothyroid CPT Codes: Echo Complete w Full Doppler-21962 Study Detail: The following Echo studies were [...] not included)... Radiology, Radiologist, MD - 07/11/2024 [facility] [address] [facility], [address], [place] [address] TRANSTHORACIC ECHOCARDIOGRAM REPORT Patient Name: ADINA MARTINEZ Reading Physician: [id number] Quique Vazquez MD, [facility] Study Date: 07/10/2024 Ordering Provider: [id number] QUIQUE VAZQUEZ MRN/PID: [id number] Fellow: Nurse: Date of /Age: 11 1995 / years Woods Boss: Marli Castro RDCS, RVT Gender Assigned at F Additional Staff: : Height: 172.72 cm Admit Date: Weight: 129.73 kg Admission Status: BSA / BMI: 2.38 m2 / 43.49 Department Location: [facility] kg/m2 [facility] [place] Blood Pressure: 114 /82 mmHg Study Type: TRANSTHORACIC ECHO (TTE) COMPLETE Diagnosis/ICD: Syncope-R55 Indication: Tachycardia, Morbid Obesity, Hypothyroid CPT Codes: Echo Complete w Full Doppler-43204 Study Detail: The following Echo studies were [...] (0.6-0.9m/s) AORTA: Asc Ao Diam 2.86 cm [id number] Quique Vazquez MD, [facility] Electronically signed on 07/11/2024 at 7:44:30 AM Final [facility] [employer] Transthoracic echo (TTE) com pleteOrdered By: Radiologist Radiology on 07-11-2024 [facility] [employer] Work Phone: TRANSTHORACIC ECHO (TTE) COM PLETEon 07-10-2024 TRANSTHORACIC ECHO (TTE) COMPLETE [address], Suite [facility], [place] [address] TRANSTHORACIC ECHOCARDIOGRAM REPORT Patient Name: ADINA MARTINEZ Reading Physician: [id number] Quique Vazquez MD, [facility] Study Date: 07/10/2024 Ordering Provider: [id number] QUIQUE VAZQUEZ MRN/PID: [id number] Fellow: Nurse: Date of /Age: 11 1995 / 29 years Woods Boss: Marli Castro RDCS, RVT Gender Assigned at F Additional Staff: : Height: 172.72 cm Admit Date: Weight: 129.73 kg Admission Status: BSA / BMI: 2.38 m2 / 43.49 Department Location: [facility] kg/m2 [facility] [place] Blood Pressure: 114 /82 mmHg Study Type: TRANSTHORACIC ECHO (TTE) COMPLETE Diagnosis/ICD: Syncope-R55 Indication: Tachycardia, Morbid Obesity, Hypothyroid CPT Codes: Echo Complete w Full Doppler-58239 Study Detail: The following Echo studies were [...] (0.6-0.9m/s) AORTA: Asc Ao Diam 2.86 cm 14301 Quique Vazquez MD, FACC Electronically signed on 07/11/2024 at 7:44:30 AM Final [facility] Transthoracic echo (TTE) com pleteon 07-10-2024 Radiology Study observation (narrative) [facility] BACTERIA UR CULTon 06-22 [facility] BACTERIA UR CULT ORGANISM ID: 1 [facility] BACTERIA UR CULT >=100,000 CFU/ml Normal urogenital antwan [facility] Original Ordering Provider: CLIFFORD PALMER [facility] Bacteria Ur Culton Bacteria identified Cx Nom (U) ORGANISM ID: 1 >=100,000 CFU/ml Normal urogenital antwan Normal [facility] Comment on above: Performed By: #### 2 4356-8, 630-4 ####[facility]CL[facility] [id number] [address] [place] CBC W Auto Differential pane l (Bld)on 06-21-2024 Basophils (Bld) [#/Vol] 10*3/uL Normal <0.11 [facility] Comment on above: Order Comment: Speci men Type: BLOOD SPECIMENOrdering Facility: [facility] Address: [address] [place] [address] Performed By: #### 5 7021-8 ####[facility] LABCLIA [id number] [facility] [place] [id number] [place] Basophils/100 WBC (Bld) 0.3 % Normal [facility] Comment on above: Order Comment: Speci men Type: BLOOD SPECIMENOrdering Facility: [facility] Address: [address] [place] [address] Performed By: #### 5 7021-8 ####[facility] LABCLIA [id number] [place] [address] [place] Differential cell count method Nom (Bld) Auto Normal [facility] Comment on above: Order Comment: Speci men Type: BLOOD SPECIMENOrdering Facility: [facility] Address: [address] [place] [address] Performed By: #### 5 7021-8 ####[facility] LABCLIA [id number] [facility] [place] [address] [place] Eosinophils (Bld) [#/Vol] 0.05 10*3/uL Normal <0.46 [facility] Comment on above: Order Comment: Speci men Type: BLOOD SPECIMENOrdering Facility: [facility] Address: [address] [place] [address] Performed By: #### 5 7021-8 ####[facility] LABCLIA [id number] [place] [address] [place] Eosinophils/100 WBC (Bld) 0.6 % Normal [facility] Comment on above: Order Comment: Speci men Type: BLOOD SPECIMENOrdering Facility: [facility] Address: [address] [place] [address] Performed By: #### 5 7021-8 ####[facility] LABCLIA [id number] [place] [address] [place] Erythrocyte distribution width (RBC) [Ratio] 13.4 % Normal 11.5-15.0 [facility] Comment on above: Order Comment: Speci men Type: BLOOD SPECIMENOrdering Facility: [facility] Address: [address] [place] [address] Performed By: #### 5 7021-8 ####[facility] LABCLIA [id number] [place] [address] [place] Hematocrit (Bld) [Volume fraction] 38.2 % Normal 36.0-46.0 [facility] Comment on above: Order Comment: Speci men Type: BLOOD SPECIMENOrdering Facility: [facility] Address: [address] [place] [address] Performed By: #### 5 7021-8 ####[facility] LABIA [id number] [place] [address] [place] Hemoglobin (Bld) [Mass/Vol] 12.4 g/dL Normal 11.5-15.5 [facility] Comment on above: Order Comment: Speci men Type: BLOOD SPECIMENOrdering Facility: [facility] Address: [address] [place] [address] Performed By: #### 5 7021-8 ####[facility] LABIA [id number] [place] [address] [place] Immature granulocytes (Bld) [#/Vol] 0.08 10*3/uL Normal <0.10 [facility] Comment on above: Order Comment: Speci men Type: BLOOD SPECIMENOrdering Facility: [facility] Address: [address] [place] [address] Performed By: #### 5 7021-8 ####[facility] LABIA [id number] [place] [address] [place] Immature granulocytes/100 WBC (Bld) 1.0 % Normal [facility] Comment on above: Order Comment: Speci men Type: BLOOD SPECIMENOrdering Facility: [facility] Address: [address] [place] [address] Performed By: #### 5 7021-8 ####[facility] LABCLIA [id number] [place] [address] [place] Lymphocytes (Bld) [#/Vol] 2.11 10*3/uL Normal 1.00-4.00 [facility] Comment on above: Order Comment: Speci men Type: BLOOD SPECIMENOrdering Facility: [facility] Address: [address] [place] [address] Performed By: #### 5 7021-8 ####[facility] LABCLIA [id number] [place] [address] [place] Lymphocytes/100 WBC (Bld) 26.8 % Normal [facility] Comment on above: Order Comment: Speci men Type: BLOOD SPECIMENOrdering Facility: [facility] Address: [address] [place] [address] Performed By: #### 5 7021-8 ####[facility] LABCLIA [id number] [place] [address] [place] MCH (RBC) [Entitic mass] 28.1 pg Normal 26.0-34.0 [facility] Comment on above: Order Comment: Speci men Type: BLOOD SPECIMENOrdering Facility: [facility] Address: [address] [place] [address] Performed By: #### 5 7021-8 ####[facility] LABCLIA [id number] [place] [address] [place] MCHC (RBC) [Mass/Vol] 32.5 g/dL Normal 30.5-36.0 [facility] Comment on above: Order Comment: Speci men Type: BLOOD SPECIMENOrdering Facility: [facility] Address: [address] [place] [address] Performed By: #### 5 7021-8 ####[facility] LABCLIA [id number] [address], [facility] [place] MCV (RBC) [Entitic vol] 86.4 fL Normal 80.0-100.0 [facility] Comment on above: Order Comment: Speci men Type: BLOOD SPECIMENOrdering Facility: [facility] Address: [address] [place] [address] Performed By: #### 5 7021-8 ####[facility]CLIA [id number] [address], [place] [address] [place] Monocytes (Bld) [#/Vol] 0.42 10*3/uL Normal <0.87 [facility] Comment on above: Order Comment: Speci men Type: BLOOD SPECIMENOrdering Facility: [facility] Address: [address] [place] [address] Performed By: #### 5 7021-8 ####[facility] LABIA [id number] [address], [place] [address] [place] Monocytes/100 WBC (Bld) 5.3 % Normal [facility] Comment on above: Order Comment: Speci men Type: BLOOD SPECIMENOrdering Facility: [facility] Address: [address] [place] [address] Performed By: #### 5 7021-8 ####[facility]CLIA [id number] [address], [facility]95 [place] Neutrophils (Bld) [#/Vol] 5.18 10*3/uL Normal 1.45-7.50 [facility] Comment on above: Order Comment: Speci men Type: BLOOD SPECIMENOrdering Facility: [facility] Address: [address] [place] [address] Performed By: #### 5 7021-8 ####[facility] LABIA [id number] [place] [address] [place] Neutrophils/100 WBC (Bld) 66.0 % Normal [facility] Comment on above: Order Comment: Speci men Type: BLOOD SPECIMENOrdering Facility: [facility] Address: [address] [place] [address] Performed By: #### 5 7021-8 ####[facility] LABCLIA [id number] [place] [address] [place] Nucleated RBC (Bld) [#/Vol] 10*3/uL Normal <0.01 [facility] Comment on above: Order Comment: Speci men Type: BLOOD SPECIMENOrdering Facility: [facility] Address: [address] [place] [address] Performed By: #### 5 7021-8 ####[facility]CLIA [id number] [place] [address] [place] Nucleated RBC/100 WBC (Bld) [Ratio] 0.0 /100 WBC Normal [facility] Comment on above: Order Comment: Speci men Type: BLOOD SPECIMENOrdering Facility: [facility] Address: [address] [place] [address] Performed By: #### 5 7021-8 ####[facility]CLIA [id number] [place] [address] [place] Platelet mean volume (Bld) [Entitic vol] 10.0 fL Normal 9.0-12.7 [facility] Comment on above: Order Comment: Speci men Type: BLOOD SPECIMENOrdering Facility: [facility] Address: [address] [place] [address] Performed By: #### 5 7021-8 ####[facility] LABCLIA [id number] [place] [address] [place] Platelets (Bld) [#/Vol] 338 10*3/uL Normal 150-400 [facility] Comment on above: Order Comment: Speci men Type: BLOOD SPECIMENOrdering Facility: [facility] Address: [address] [place] [address] Performed By: #### 5 7021-8 ####[facility] [id number] [place] [address] [place] RBC (Bld) [#/Vol] 4.42 10*6/uL Normal 3.90-5.20 [facility] Comment on above: Order Comment: Speci men Type: BLOOD SPECIMENOrdering Facility: [facility] Address: [address] [place] [address] Performed By: #### 5 7021-8 ####[facility] [id number] [place] [address] [place] WBC (Bld) [#/Vol] 7.86 10*3/uL Normal 3.70-11.00 [facility] Comment on above: Order Comment: Speci men Type: BLOOD SPECIMENOrdering Facility: [facility] Address: [address] [place] [address] Performed By: #### 5 7021-8 ####[facility] [id number] [place] [address] [place] ABD/PEL W IVCONon 11-[address] ABD/PEL W IVCON * * *Final Report* * * DATE OF EXAM: Jun 21 2024 6:21PM [facility] 0530 - CT ABD/PEL W IVCON [...] acute findings in the abdomen or pelvis. Ornament Stitcher: PSCB Transcribe Date/Time: Jun 21 2024 7:16P Dictated by : MUKUL CURTIS MD This examination was interpreted and the report reviewed and electronically signed by: JOVANY VALDEZ MD on Jun 21 2024 7:40PM EST [id number] Normal [facility] [facility] Comprehensive metabolic 2000 panelon 06-21-2024 Albumin [Mass/Vol] 4.8 g/dL Normal 3.9-4.9 [facility] Comment on above: Order Comment: Speci men Type: BLOOD SPECIMENOrdering Facility: [facility] Address: [address] [place] [address] Performed By: #### 2 4323-8, 3040-3, 69880-7 ####[facility] LABCLIA [id number] [place] [address] [place] ALP [Catalytic activity/Vol] 81 U/L Normal 34-123 [facility] Comment on above: Order Comment: Speci men Type: BLOOD SPECIMENOrdering Facility: [facility] Address: [address] [id number] Performed By: #### 2 4323-8, 3, ####[facility] LABCLIA [id number] [address] [address] [place] ALT [Catalytic activity/Vol] 31 U/L Normal 7-38 [facility] Comment on above: Order Comment: Speci men Type: BLOOD SPECIMENOrdering Facility: [facility] Address: [address] [place], [place] [address] Performed By: #### 2 4323-8, 3, ####[facility] LABCLIA [id number] [address] [address] [place] Anion gap [Moles/Vol] 12 mmol/L Normal 8-15 [facility] Comment on above: Order Comment: Speci men Type: BLOOD SPECIMENOrdering Facility: [facility] Address: [address] [place], [place] [address] Performed By: #### 2 4323-8, 3039-05, ####[facility] LABCLIA [id number] [address] [address] [place] AST [Catalytic activity/Vol] 27 U/L Normal 13-35 [facility] Comment on above: Order Comment: Speci men Type: BLOOD SPECIMENOrdering Facility: [facility] Address: [address] [place] [address] Performed By: #### 2 4323-8, 3, ####[facility] LABCLIA [id number] [address] [address] [place] Bilirubin [Mass/Vol] 0.5 mg/dL Normal 0.2-1.3 [facility] Comment on above: Order Comment: Speci men Type: BLOOD SPECIMENOrdering Facility: [facility] Address: [address] [place] [address] Performed By: #### 2 4323-8, 3, ####[facility] LABCLIA [id number] [address] [address] [place] Calcium [Mass/Vol] 9.5 mg/dL Normal 8.5-10.2 [facility] Comment on above: Order Comment: Speci men Type: BLOOD SPECIMENOrdering Facility: [facility] Address: [address] [place], [place] [address] Performed By: #### 2 4323-8, 3, ####[facility] LABCLIA [id number] [address] [address] [place] Chloride [Moles/Vol] 103 mmol/L Normal 98-107 [facility] Comment on above: Order Comment: Speci men Type: BLOOD SPECIMENOrdering Facility: [facility] Address: [address] [place], [place] [address] Performed By: #### 2 4323-8, 3, ####[facility] LABIA [id number] [address] [address] [place] CO2 [Moles/Vol] 23 mmol/L Normal 22-30 [facility] Comment on above: Order Comment: Speci men Type: BLOOD SPECIMENOrdering Facility: [facility] Address: [address] [place] [address] Performed By: #### 2 4323-8, 3, ####[facility] LABIA [id number] [address] [address] [place] Creatinine [Mass/Vol] 0.70 mg/dL Normal 0.58-0.96 [facility] Comment on above: Order Comment: Speci men Type: BLOOD SPECIMENOrdering Facility: [facility] Address: [address] [place] [address] Performed By: #### 2 4323-8, 3040-3, ####[facility] LABIA [id number] [place] [address] [place] Creatinine and Glomerular filtration rate.predicted panel (S/P/Bld) 120 mL/min/1.73m??? Normal >=60 [facility] Comment on above: Order Comment: Jamar rodríguez Type: BLOOD SPECIMENOrdering Facility: [facility] Address: [address] [place] [address] Result Comment: Cristy mated Glomerular Filtration Rate [...] reflect actual GFR. Performed By: #### 2 4323-8, 3040-3, ####[facility] LABIA [id number] [address] [address] [place] Glucose [Mass/Vol] 89 mg/dL Normal 74-99 [facility] Comment on above: Order Comment: Jamar rodríguez Type: BLOOD SPECIMENOrdering Facility: [facility] Address: [address] [place] [address] Result Comment: The [place] [employer] (ADA) provides guidance for cutoff [...] Standards of Medical Care in Diabetes 2016, [place] [employer]. Diabetes Care. 2016.39(Suppl 1). Performed By: #### 2 4323-8, 3039-3, ####[facility] LABCLIA [id number] [address] [address] [place] Potassium [Moles/Vol] 4.0 mmol/L Normal 3.7-5.1 [facility] Comment on above: Order Comment: Speci men Type: BLOOD SPECIMENOrdering Facility: [facility] Address: [address] [place], [place] [address] Performed By: #### 2 4323-8, 3039-3, ####[facility] LABCLIA [id number] [address] [address] [place] Protein [Mass/Vol] 7.8 g/dL Normal 6.3-8.0 [facility] Comment on above: Order Comment: Speci men Type: BLOOD SPECIMENOrdering Facility: [facility] Address: [address] [place], [place] [address] Performed By: #### 2 4323-8, 3, ####[facility] LABCLIA [id number] [address] [address] [place] Sodium [Moles/Vol] 138 mmol/L Normal 136-144 [facility] Comment on above: Order Comment: Speci men Type: BLOOD SPECIMENOrdering Facility: [facility] Address: [address] [place] [address] Performed By: #### 2 4323-8, 3, ####[facility] LABCLIA [id number] [address] [address] [place] Urea nitrogen [Mass/Vol] 12 mg/dL Normal 7-21 [facility] Comment on above: Order Comment: Speci men Type: BLOOD SPECIMENOrdering Facility: [facility] Address: [address] [place] [address] Performed By: #### 2 4323-8, 3039-3, ####[facility] LABCLSONY [id number] [facility]Chit[facility] [address] [place] ED NOTEon 06-21-2024 ED NOTE HNO ID: [id number] Author: RICH BATES, RN Service: Emergency Medicine Author Type: Registered Nurse Type: ED Notes Filed: 06/21/2024 20:20 Note Text: Pt. Provided with discharge instructions at this time. All questions answered, medications discussed and follow-up information reviewed at length. Pt. Verbalized understanding. VSS, PIV removed, pt. Ambulatory off unit in stable condition. Normal [facility] ED PROV NOTEon 06-21-2024 ED PROV NOTE HNO ID: [id number] Author: RUDDY SLATER PA-C Service: Emergency Medicine Author Type: Physician Bookmobile Driver Type: ED Provider Notes Filed: 06/21/2024 19:59 [...] Bilirubin, Urine Negative Ketones, Urine Trace(!) Specific [place], Ur 1.026 Hemoglobin/Blood,Ur 2+(!) pH, Urine 5.5 [...] (ANC) 5.18 Lymph% 26.8 Abs Lymph 2.11 [place]% 5.3 Abs [place] 0.42 Eosin% 0.6 Abs Eosin 0.05 Baso% [...] appetite Acute cystitis with hematuria Signature: Anaya DO Hieu Date: 06/23/2024 Time: 9:48 AM ED Provider Note Patient Name: Adina Martinez : 1995 SERVICE DATE: 06/21/24 History Patient [...] SURGICAL HIS (more content not included)... Normal [facility] ED Triage Noteon 06-21-2024 ED Triage Note HNO ID: [id number] Author: CLIFFORD SCOTT MD Service: Emergency Medicine [...] URINE QUALITATIVE SIGNATURE: Clifford Scott MD Normal [facility] HCG Preg Ur Qlon 06-21-2024 HCG ( test) Ql (U) Negative Normal Negative [facility] Comment on above: Order Comment: Speci men Type: URINE SPECIMENOrdering Facility: [facility] Address: [address] [place] [address] Result Comment: This test is intended to aid in the early detection of . Very dilute urine samples, as indicated by a low specific gravity, may not contain healthcare representative levels of hCG. This test detects [...] presumptive diagnosis for . Performed By: #### 2 106-3 ####[facility] LABCLIA [id number] [place] [address] [place] Lipase SerPl-cCncon 06-22-19 25 Lipase [Catalytic activity/Vol] 28 U/L Normal 16-61 [facility] Comment on above: Order Comment: Speci men Type: BLOOD SPECIMENOrdering Facility: [facility] Address: [address] [place] [address] Performed By: #### 2 4323-8, 3040-3, 27238-8 ####[facility] LABCLIA [id number] [address] [address] [place] Magnesium SerPl-mCncon 06-21 Magnesium [Mass/Vol] 2.1 mg/dL Normal 1.7-2.3 [facility] Comment on above: Order Comment: Speci men Type: BLOOD SPECIMENOrdering Facility: [facility] Address: [address] [place] [address] Performed By: #### 2 4323-8, 3040-3, 63495-8 ####[facility] LABCLIA [id number] [address], [place] [address] [place] Urinalysis complete panel (U )on 06-21-2024 BACTERIA UL >9821 High Negative [facility] Comment on above: Order Comment: Speci men Type: URINE SPECIMENOrdering Facility: [facility] Address: [address] [place] [address] Performed By: #### 2 4356-8, 630-4 ####[facility] LABCLIA [id number] [address], [place] [address] [place] Bilirubin Ql (U) Negative Normal Negative [facility] Comment on above: Order Comment: Speci men Type: URINE SPECIMENOrdering Facility: [facility] Address: [address] [place] [address] Performed By: #### 2 4356-8, 630-4 ####[facility] LABCLIA [id number] [address], [facility]95 [place] Clarity (Unsp spec) Cloudy Abnormal Clear [facility] Comment on above: Order Comment: Speci men Type: URINE SPECIMENOrdering Facility: [facility] Address: [address] [place] [address] Performed By: #### 2 4356-8, 630-4 ####[facility] LABCLIA [id number] [address], [facility]95 [place] Color (U) Yellow Normal Yellow [facility] Comment on above: Order Comment: Speci men Type: URINE SPECIMENOrdering Facility: [facility] Address: [address] [place] [address] Performed By: #### 2 4356-8, 630-4 ####[facility] LABCLIA [id number] [address], [place] [address] [place] [facility] Epithelial cells LM.HPF (Urine sed) [#/Area] Many Normal [facility] Comment on above: Order Comment: Speci men Type: URINE SPECIMENOrdering Facility: [facility] Address: [address] [place] [address] Performed By: #### 2 4356-8, 630-4 ####[facility] LABCLIA [id number] [address] Glucose Test strip (U) [Mass/Vol] Negative Normal Negative [facility] Comment on above: Order Comment: Speci men Type: URINE SPECIMENOrdering Facility: [facility] Address: [address] [place] [address] Performed By: #### 2 4356-8, 630-4 ####[facility] LABCLIA [id number] [place] [address] [place] Hemoglobin Ql (U) 2+ Abnormal Negative [facility] Comment on above: Order Comment: Speci men Type: URINE SPECIMENOrdering Facility: [facility] Address: [address] [place] [address] Performed By: #### 2 4356-8, 630-4 ####[facility] LABCLIA [id number] [address], [facility]95 [place] Hyaline casts (Urine sed) [#/Area] /[LPF] Abnormal 0 /LPF [facility] Comment on above: Order Comment: Speci men Type: URINE SPECIMENOrdering Facility: [facility] Address: [address] [place] [address] Performed By: #### 2 4356-8, 630-4 ####[facility] LABCLIA [id number] [facility] [address] [place] [address] [place] Ketones Ql (U) Trace Abnormal Negative [facility] Comment on above: Order Comment: Speci men Type: URINE SPECIMENOrdering Facility: [facility] Address: [address] [place] [address] Performed By: #### 2 4356-8, 630-4 ####[facility] LABCLIA [id number] [address], [place] [address] [place] Leukocyte esterase Test strip Ql (U) 1+ Abnormal Negative [facility] Comment on above: Order Comment: Speci men Type: URINE SPECIMENOrdering Facility: [facility] Address: [address] [place] [address] Performed By: #### 2 4356-8, 630-4 ####[facility] LABCLIA [id number] [address], [place] [address] [place] Nitrite Ql (U) Negative Normal Negative [facility] Comment on above: Order Comment: Speci men Type: URINE SPECIMENOrdering Facility: [facility] Address: [address] [place] [address] Performed By: #### 2 4356-8, 630-4 ####[facility] LABCLIA [id number] [address], [place] [address] [place] pH (U) 5.5 [pH] Normal <8.5 [facility] Comment on above: Order Comment: Speci men Type: URINE SPECIMENOrdering Facility: [facility] Address: [address] [place] [address] Performed By: #### 2 4356-8, 630-4 ####[facility] LABCLIA [id number] [address], [facility]95 [place] Protein (U) [Mass/Vol] 1+ Abnormal Negative Cl [facility] Comment on above: Order Comment: Speci men Type: URINE SPECIMENOrdering Facility: [facility] Address: [address] [place] [address] Performed By: #### 2 4356-8, 630-4 ####[facility] LABIA [id number] [place] [address] [place] RBC LM.HPF (Urine sed) [#/Area] 3-5 /HPF Abnormal 0-2 /HPF [facility] Comment on above: Order Comment: Speci men Type: URINE SPECIMENOrdering Facility: [facility] Address: [address] [place] [address] Performed By: #### 2 4356-8, 630-4 ####[facility] [id number] [place] [address] [place] Specific gravity (U) [Rel density] 1.026 Normal 1.005-1.030 [facility] Comment on above: Order Comment: Speci men Type: URINE SPECIMENOrdering Facility: [facility] Address: [address] [place] [address] Performed By: #### 2 4356-8, 630-4 ####[facility] [id number] [place] [address] [place] Urobilinogen Ql (U) 0.2 EU/dL Normal 0.2-1.0 EU/dL [facility] Comment on above: Order Comment: Speci men Type: URINE SPECIMENOrdering Facility: [facility] Address: [address] [place] [address] Performed By: #### 2 4356-8, 630-4 ####[facility] [id number] [place] [address] [place] WBC LM.HPF (Urine sed) [#/Area] 11-20 /HPF Abnormal 0-5 /HPF [facility] Comment on above: Order Comment: Speci men Type: URINE SPECIMENOrdering Facility: [facility] Address: [address] [place] [address] Performed By: #### 2 4356-8, 630-4 ####[facility] LABCLIA [id number] [place] [address] [place] ECG 12 Leadon 05-08-2024 ECG revealed normal sinus rhythm, normal ECG [facility] Work Phone: CHEMISTRYOrdered By: SYSTEM SYSTEM on 04-16-2024 Free T4 [Mass/Vol] 0.61 ng/dL Normal 0.58 - 1. 64 ng/dL Remisol Chem TSH Qn 6.68 m[IU]/L High 0.34 - 5.60 mcIU/mL Remisol Chem [facility] TSH WITH T4FR REFLEXon 04-16-2024 [facility] THYROTROPIN:ACNC:PT:SER /PLAS:QN: 6.68 High [facility] Healthcare Interpretation and review of laboratory results Abnormal [facility] Original Ordering Provider[facility] Free T4on 04-16-2024 Free T4 [Mass/Vol] 0.61 ng/dL Normal 0.58-1.64 [facility] Comment on above: Performed By: #### 2 [id number] #### [facility] [address] [place] [address] TSH With T4fr Reflexon 04-16 TSH Qn 6.68 m[IU]/L High 0.34-5.60 [facility] Comment on above: Performed By: #### 1 [id number] #### [facility] [address] [place] [address] CHEMISTRYOrdered By: SYSTEM SYSTEM on 12-06-2023 Troponin [...] [employer], October 2017) Urea nitrogen [Mass/Vol] 11 mg/dL Normal 5 - 21 mg/dL Remisol Chem Urea nitrogen/Creatinine [Mass ratio] 16 mg/mg Normal 10 - 20 Remisol Chem COAGULATIONOrdered By: Emerita Judge on 12-06-2023 aPTT Coag (PPP) [Time] 34.3 s Normal 25.1 - 36.5 second(s) [facility] Auto Coag Comment on above: Interpretive Data: [...] the same coagulation reagent and instrumentation as [facility]. Currently there are no coagulation studies available worldwide for children to 14 days, and no normal ranges. Heparin therapeutic range (represented by Anti-Factor Xa activity of 0.2 - 0.4 U/mL) corresponds to PTT of 56.6 - 109.0 sec. INR Coag (PPP) [Relative time] 0.97 {INR} Invalid Interpretation Code [facility] Comment on above: Interpretive Data: I NR results are specifically intended to assess patients stabilized on long-term Anticoagulation therapy suggested INR s Less Intensive Anticoagulation 2.0 3.0 Conventional Range 3.0 4.5 PT Coag (PPP) [Time] 10.9 s Normal 9.4 - 1 2.5 second(s) [facility] Auto Coag Comment on above: Interpretive Data: [...] the same coagulation reagent and instrumentation as [facility]. Currently there are no coagulation studies available worldwide for children to 14 days, and no normal ranges. ED Clinical Summaryon 2023 ED Clinical Summary ED Clinical Summary [place] [id number] ED Clinical Summary Person Information Name: ADINA MARTINEZ [facility] Age: 28 Years : 1995 Sex: Female Language: Thai PCP: Linnea HACKETT PA-C Marital Status: Single [...] 12/06/2023 18:47:51 12/06/2023 18:47:51 12/06/2023 18:47:51 ADDRESS: [address] [place] [phone] [facility] DOC NOTES: MEDICAL INFORMATION: Prescriptions Given: Medications [...] 12/09/2023 With: Address: When: Linnea HACKETT [address] [place] [address] [employer] In 3 days DIAGNOSIS: Chest pain; Shortness of breath Normal [facility] ED Note-Physicianon 12-06-19 ED Note-Physician ED [...] for pos (more content not included)... Normal [facility] Comment on above: Result Comment: Elec tronically Signed By: Julio Chung PA-C\.br\Date and Time Signed: 12/06/23 18:33 EDT\.br\Electronically Co-Signed By: Cliff Gusman DO.br\Date and Time Co-Signed: 12/06/23 19:07 EDT ED Patient Summaryon 024 ED Patient Summary ED Patient Summary [address] [address] Patient Discharge Instructions Person Information Name: ADINA MARTINEZ Age: 28 Years Arrival Date: 12/06/2023 15:42:10 Discharge Diagnosis: Chest pain; Shortness of breath Primary Care Physician: Linnea HACKETT PA-C Provider Information Primary Provider: Cliff Gusman DO Advanced Three Dimensional Map Modeler:Julio Chung PA-C The exam and treatment you received in the Emergency Department were for an urgent problem and are not intended as complete care. It is important that you follow up with a doctor, nurse practitioner, or physician?s assistant activities director for ongoing care. If your symptoms become [...] days 12/09/2023 With: Address: When: Linnea HACKETT [place] [id number] [facility] (1) In 3 days In the event that this physician does not participate in your insurance network, please consult with your insurance company to find a nearby participating provider. Patient Education Materials: Nonspecific Chest Pain, Adult A MESSAGE TO ALL PATIENTS REGARDING OPIOIDS PRESCRIPTION OPIOIDS: WHAT YOU NEED TO KNOW Prescription opioids can be used to help relieve zhhgqafj-xr-mnubec pain and are often prescribed following a [...] health car (more content not included)... Normal [facility] HEMATOLOGYOrdered By: SYSTEM SYSTEM on 12-06-2023 [...] Ag Negative (12/06/23 4:21 PM) Normal Negative [facility] Influenzae B Ag Negative 1 (12/06/23 4:21 PM) Normal Negative [facility] Comment on above: Interpretive Data: [...] NEG [place] (12/06/23 4:21 PM) Normal [facility] Rapid COV Int POS Ctl [place] (12/06/23 4:21 PM) Normal [facility] SARS-CoV+SARS-CoV-2 (COVID-19) Ag IA.rapid Ql (Resp) Not Detected 7 (12/06/23 4:21 PM) Normal Not Detected [facility] Comment on above: Interpretive Data: T he [employer] microcaps Veritor System for Rapid Detection of SARS-CoV-2 [...] Hr.on 12-06-2023 Troponin HS <2.30 Low 10.10-27.10 [facility] Comment on above: Order Comment: due @ 7544 Result Comment: The 95% CI (Confidence Interval) PPV (Positive Predictive Value) for myocardial infarction in females is 38 pg/mL, in males 51 pg/mL. The results should be used in conjunction with clinical conditions of myocardial infarction. (Access High Sensitivity Troponin I Instructions For Use, [employer], October 2017) Performed By: #### 1 [id number] #### [facility] [address] [place] [address] ED Clinical Summaryon 2023 ED Clinical Summary ED Clinical Summary [address] [address] ED Clinical Summary Person Information Name: ADINA MARTINEZ [facility] Age: 28 Years : 1995 Sex: Female Language: Thai PCP: Linnea HACKETT PA-C Marital Status: Single [...] 10/13/2023 09:02:33 10/13/2023 09:02:33 10/13/2023 09:02:33 ADDRESS: [address] [place] [phone] PHYS DOC NOTES: MEDICAL INFORMATION: Prescriptions Given: New Medications [facility]/pharmacy #[id number], [address] [place], [place] [id number], [phone] dextromethorphan-prom ethazine (Promethazine DM oral syrup) 5 [...] Address: When: Linnea HACKETT [address] [place] [address] Business (1) In 3 days DIAGNOSIS: Neck strain; Pneumonia Normal [facility] ED Note-Physicianon 10-13-19 ED Note-Physician ED [...] q6hr for cough, 120 mL, Refill(s) 0, [facility]/pharmacy #[id number], 173, cm, 10/13/23 7:45:00 EDT, Height/Length Dosing, 124.7, kg, 10/13/23 7:45:00 EDT, Weight Dosing doxycycline, 100 mg = 1 tab(s), Oral, BID, X 7 day(s), # 14 tab(s), Refills(s) 0, [id number], 173, cm, 10/13/23 7:45:00 EDT, Height/Length Dosing, 124.7, kg, 10/13/23 7:45:00 EDT, Weight Dosing methocarbamol, 750 mg = 1 tab(s), Oral, TID, X 7 day(s), # 21 tab(s), Refills(s) 0, [id number], 173, cm, 10/13/23 7:45:00 EDT, Height/Length Dosing, 124.7, kg, 10/13/23 7:45:00 EDT, Weight Dosing predniSONE, 3, Oral, Daily, # 15 tab(s), Refills(s) 0, [facility] [id number], 173, cm, 10/13/23 7:45:00 EDT, Height/Length [...] TID Follow-up With When Contact Information Linnea HACKETT In [address] [place] [address]- Business (1) Additional Instructions: Problem List/Past Medical [...] tablet, 7 (more content not included)... Normal [facility] Comment on above: Result Comment: Elec tronically Signed By: Santos Booker DO\.br\Date and Time Signed: 10/13/23 08:12 EDT ED Patient Education Noteon 10-13-2023 ED Patient Education Note ED Patient Education Note Normal [facility] ED Patient Summaryon 024 ED Patient Summary ED Patient Summary [address] [address] Patient Discharge Instructions Person Information Name: ADINA MARTINEZ Age: 28 Years Arrival Date: 10/13/2023 07:40:18 Discharge Diagnosis: Neck strain; Pneumonia Primary Care Physician: Linnea HACKETT PA-C Provider Information Primary Provider: Santos Booker DO Advanced Three Dimensional Map Modeler:None The exam and treatment you received in the Emergency Department were for an urgent problem and are not intended as complete care. It is important that you follow up with a doctor, nurse practitioner, or physician?s assistant activities director for ongoing care. If your symptoms become [...] Address: When: Linnea HACKETT [address] [place] [address] Business (1) In 3 days In the event that this physician does not participate in your insurance network, please consult with your insurance company to find a nearby participating provider. Patient Education Materials: A MESSAGE TO ALL PATIENTS REGARDING OPIOIDS PRESCRIPTION OPIOIDS: WHAT YOU NEED TO KNOW Prescription opioids can be used to help relieve mzzodiov-sl-zeemhk pain and are often prescribed following a [...] be struggling with addiction, tell your health health care facilities inspector and ask for guidance or call [facility]?S National Helpline at 6-896-887-DLYW. t Source: Department of [facility] (more content not included)... [facility] XR Chest 2 Viewson XR Chest 2 Views Exam Date/Time: 10/13/2023 [...] MIRIAM Technologist: ARELIS Technical Comments Radiation Dose: Kar in mGy = na DAP = na [facility] Basophils Auto (Bld) [#/Vol] Ordered By: Black Zaidi on 09-21-2023 Basophils (Bld) [#/Vol] 0.1 10*3/uL 0.0-0.2 [facility] Basophils/100 WBC Auto (Bld) Ordered By: Black Zaidi on 09-21-2023 Basophils/100 WBC (Bld) 1.0 % . [facility] Calcium [Mass/volume] in Ser um or PlasmaOrdered By: Black Zaidi on 09-21-2023 Calcium [Mass/Vol] 9.6 mg/dL 8.6-10.3 [facility] Carbon dioxide, total [Moles /volume] in Serum or PlasmaOrdered By: Black Zaidi on 09-21-2023 CO2 [Moles/Vol] 25.1 mmol/L 21.0-31.[address] [facility] Chloride [Moles/volume] in S ministerio or PlasmaOrdered By: Black Zaidi on 09-21-2023 Chloride [Moles/Vol] 105 mmol/L 98-107 [facility] Cholesterol [Mass/volume] in Serum or PlasmaOrdered By: Black Zaidi on 09-21-2023 Cholesterol [Mass/Vol] 159 mg/dL 140-200 [facility] Comment on above: Chol less than 200 m g/dl low riskChol 201-239 mg/dl borderline riskChol 240 mg/dl and greater high risk Cholesterol in LDL Calc [Mas s/Vol]Ordered By: Black Zaidi on 09-21-2023 Cholesterol in LDL [Mass/Vol] 100 mg/dL 0-100 [facility] Comment on above: LDL ATP III CLASSIFI CATIONLDL less than 100 mg/dL OptimalLDL 100-129 mg/dL Near or above optimalLDL 130-159 mg/dL Borderline highLDL 160-189 mg/dL HighLDL greater than 189 mg/dL Very high Cholesterol in VLDL Calc [Ma ss/Vol]Ordered By: Black Zaidi on 09-21-2023 Cholesterol in VLDL [Mass/Vol] 18 mg/dL [facility] Creatinine [Mass/volume] in Serum or PlasmaOrdered By: Black Zaidi on 09-21-2023 Creatinine [Mass/Vol] 0.69 mg/dL 0.60-1.20 [facility] Eosinophils Auto (Bld) [#/Vo l]Ordered By: Black Zaidi on 09-21-2023 Eosinophils (Bld) [#/Vol] 0.1 10*3/uL 0.0-0.45 [facility] Eosinophils/100 WBC Auto (Bl d)Ordered By: Black Zaidi on 09-21-2023 Eosinophils/100 WBC (Bld) 1.1 % . [facility] Erythrocyte distribution wid th Auto (RBC) [Ratio]Ordered By: Black Zaidi on 09-21-2023 Erythrocyte distribution width (RBC) [Ratio] 15.6 % High 11.9-15.3 [facility] Glucose [Mass/volume] in Ser um or PlasmaOrdered By: Black Zaidi on 09-21-2023 Glucose [Mass/Vol] 94 mg/dL 70-100 [facility] Hematocrit Auto (Bld) [Volum e fraction]Ordered By: Black Zaidi on 09-21-2023 Hematocrit (Bld) [Volume fraction] 38.3 % 34.0-46.4 [facility] Hemoglobin [Mass/volume] in BloodOrdered By: Black Zaidi on 09-21-2023 Hemoglobin (Bld) [Mass/Vol] 12.9 g/dL 11.8-15.4 [facility] Leukocytes [#/volume] correc kiki for nucleated erythrocytes in Blood by Automated counOrdered By: Black Zaidi on 09-21-2023 WBC corrected for nucl RBC Auto (Bld) [#/Vol] 8.1 10*3/uL 3.8-11.6 [facility] Lymphocytes Auto (Bld) [#/Vo l]Ordered By: Black Zaidi on 09-21-2023 Lymphocytes (Bld) [#/Vol] 2.2 10*3/uL 1.00-4.8 [facility] Lymphocytes/100 WBC Auto (Bl d)Ordered By: Black Zaidi on 09-21-2023 Lymphocytes/100 WBC (Bld) 27.1 % . [facility] MCH Auto (RBC) [Entitic mass ]Ordered By: Black Zaidi on 09-21-2023 MCH (RBC) [Entitic mass] 28.6 pg 24.7-34.3 [facility] MCHC Auto (RBC) [Mass/Vol]Or dered By: Black Zaidi on 09-21-2023 MCHC (RBC) [Mass/Vol] 33.6 g/dL 32.0-35.0 [facility] MCV Auto (RBC) [Entitic vol] Ordered By: Black Zaidi on 09-21-2023 MCV (RBC) [Entitic vol] 85.2 fL 80-100 [facility] Monocytes Auto (Bld) [#/Vol] Ordered By: Black Zaidi on 09-21-2023 Monocytes (Bld) [#/Vol] 0.5 10*3/uL 0.0-0.8 [facility] Monocytes/100 WBC Auto (Bld) Ordered By: Black Zaidi on 09-21-2023 Monocytes/100 WBC (Bld) 6.6 % . [facility] Neutrophils Auto (Bld) [#/Vo l]Ordered By: Black Zaidi on 09-21-2023 Neutrophils (Bld) [#/Vol] 5.2 10*3/uL 1.8-7.7 [facility] Neutrophils/100 WBC Auto (Bl d)Ordered By: Black Zaidi on 09-21-2023 Neutrophils/100 WBC (Bld) 64.2 % . [facility] No Panel InformationOrdered By: Black Zaidi on 09-21-2023 Estimated GFR (CKD-EPI) > 60.0 mL/Min [facility] Creatinine Clearance (Chem N/A [facility] Nucleated erythrocytes [Pres ence] in Blood by Automated countOrdered By: Black Zaidi on 09-21-2023 Nucleated RBC Auto Ql (Bld) 0.1 /100{WBC} 0-0.5 [facility] Platelet mean volume Auto (B ld) [Entitic vol]Ordered By: Black Zaidi on 09-21-2023 Platelet mean volume (Bld) [Entitic vol] 8.0 fL 6.3-10.7 [facility] Platelets Auto (Bld) [#/Vol] Ordered By: Black Zaidi on 09-21-2023 Platelets (Bld) [#/Vol] 344 10*3/uL 150-450 [facility] Potassium [Moles/volume] in Serum or PlasmaOrdered By: Black Zaidi on 09-21-2023 Potassium [Moles/Vol] 4.6 mmol/L 3.5-5.1 [facility] RBC Auto (Bld) [#/Vol]Ordere d By: Black Zaidi on 09-21-2023 RBC (Bld) [#/Vol] 4.50 10*6/uL 3.60-5.[address] [facility] Serum or plasma anion gap de terminationOrdered By: Black Zaidi on 09-21-2023 Anion gap [Moles/Vol] 11.5 mmol/L 6.0-15.0 [facility] Serum or plasma high density lipoprotein (HDL) cholesterol measurementOrdered By: Black Zaidi on 09-21-2023 Cholesterol in HDL [Mass/Vol] 40 mg/dL 23-92 [facility] Comment on above: HDL CHOL ATP-III CLA SSIFICATION Cardiovascular RiskHDL > or equal to 60 mg/dL LOWHDL < 40 mg/dL HIGH Serum or plasma total choles terol/high density lipoprotein (HDL) cholesterol mass ratOrdered By: Black Zaidi on 09-21-2023 Cholesterol.total/Ioana sterol in HDL [Mass ratio] 4.0 {ratio} <5.0 [facility] Sodium [Moles/volume] in Ser um or PlasmaOrdered By: Black Zaidi on 09-21-2023 Sodium [Moles/Vol] 137 mmol/L 136-145 [facility] Thyrotropin [Units/volume] i n Serum or PlasmaOrdered By: Black Zaidi on 09-21-2023 TSH Qn 3.78 m[IU]/L 0.45-5.33 [facility] Triglyceride [Mass/volume] i n Serum or PlasmaOrdered By: Black Zaidi on 09-21-2023 Triglyceride [Mass/Vol] 94 mg/dL 0-149 [facility] Comment on above: TRIG ATP III CLASSIF ICATIONTRIG less than 150 mg/dL NormalTRIG 150-199 mg/dL Borderline highTRIG 200-500 mg/dL High TRIG greater than 500 mg/dL Very highStandard traceable to the Center for Disease Conrtrol and Prevention (CDC) test method. Urea nitrogen [Mass/volume] in Serum or PlasmaOrdered By: Black Zaidi on 09-21-2023 Urea nitrogen [Mass/Vol] 13 mg/dL 7 [facility] WBC Auto (Bld) [#/Vol]Ordere d By: Black Zaidi on 09-21-2023 WBC (Bld) [#/Vol] 8.1 10*3/uL 3.8-11.6 [facility] Consent for Treatmenton 08-12 Consent for Treatment [id number]#[address] [facility] Heart and Vascular Office/Cl inic Noteon [...] SARS-CoV-2 (COVID-19) mRNA-1273 vaccine 03/20/[address] [facility] Comment on above: Result Comment: Elec tronically Signed By: Ad VELASQUEZ, Magdi FEula\.br\Date and Time Signed: 09/04/23 08:26 EDT Outside Recordson 09-04-2023 Outside Records [id number]#[address] [facility] Physician Orderon 09-04-2023 Physician Order [id number]#[address] [facility] CTA Neckon 08-03-2023 CTA Neck Exam [...] 370 Contrast amount in ml's: [address] [facility] Consent for Treatmenton 07-12 Consent for Treatment [id number]#[address] [facility] Insurance Correspondenceon 0 07-24-2023 Insurance Correspondence [id number]# 1.00TIFF Normal [facility] Physician Orderon 07-24-2023 Physician Order [id number]# 1.00TIFF Normal [facility] MRI Brain w/ + w/o Contrasto [...] Vueway Contrast amount in ml's: [address] [facility] Consent for Treatmenton Consent for Treatment [id number]#[address] [facility] RAD - MRI Screening Formon 0 06-14-2023 RAD - MRI Screening Form [id number]# 1.00TIFF Normal [facility] Physician Orderon 06-06-2023 Physician Order [id number]#[address] [facility] BMPon 05-26-2023 Anion gap [Moles/Vol] 14 mmol/L Normal 6-16 [facility] Comment on above: Performed By: #### 2 153436, 63999897, 60821835, 07278927, 9536820, 46438873 ####[facility] [address] [place] [address] Calcium [Mass/Vol] 9.3 mg/dL Normal 8.9-11.1 [facility] Comment on above: Performed By: #### 2 665932, 74979801, 88711689, 07657686, 5780410, 49630778 ####[facility] [address] [place] [address] Chloride [Moles/Vol] 106 mmol/L Normal 101-111 [facility] Comment on above: Performed By: #### 2 310026, 38689989, 66814701, 71121920, 2863381, 56314484 ####[facility] [address] [place] [address] CO2 [Moles/Vol] 22 mmol/L Normal 21-31 [facility] Comment on above: Performed By: #### 2 979313, 61687331, 62049637, 08354687, 5916676, 17029562 ####[facility] [address] [place] [address] Creatinine [Mass/Vol] 0.6 mg/dL Normal 0.5-1.3 [facility] Comment on above: Performed By: #### 2 358475, 64401600, 10927050, 47115979, 4183326, 49334254 ####[facility] [address] [place] [address] Glucose [Mass/Vol] 128 mg/dL Normal 55-199 [facility] Comment on above: Performed By: #### 2 774365, 83349833, 42990595, 14586660, 3141253, 36020938 ####[facility] [address] [place] [address] Potassium [Moles/Vol] 3.8 mmol/L Normal 3.5-5.3 [facility] Comment on above: Performed By: #### 2 920366, 43590680, 52964352, 48819250, 3304217, 06026307 ####[facility] [address] [place] [address] Sodium [Moles/Vol] 138 mmol/L Normal 135-145 [facility] Comment on above: Performed By: #### 2 629963, 99941589, 02296418, 49627147, 3474250, 13451660 ####[facility] [address] [place] [address] Urea nitrogen [Mass/Vol] 17 mg/dL Normal 5-21 [facility] Comment on above: Performed By: #### 2 581436, 31001462, 97207833, 94885463, 3430539, 63208559 ####[facility] [address] [place] [address] Urea nitrogen/Creatinine [Mass ratio] 28 No Units High 10-20 [facility] Comment on above: Performed By: #### 2 655794, 24226822, 05824822, 94845090, 0277206, 81747975 ####[facility] [address] [place] [address] BNPon 05-26-2023 Int Ctr BNP Pass Normal [facility] Comment on above: Performed By: #### 2 617055, 02058169, 24348937, 09112089, 9416183, 92015449 ####[facility] [address] [place] [address] Natriuretic peptide B (Bld) [Mass/Vol] pg/mL Normal 5-80 [facility] Comment on above: Performed By: #### 2 244533, 91378840, 88997918, 75068877, 6213306, 43152688 ####[facility] [address] [place] [address] Discharge Instructionson Discharge Instructions [id number]#[address] [facility] ED Clinical Summaryon 2023 ED Clinical Summary [address] [address] ED Clinical Summary Person Information Name: ADINA MARTINEZ [facility] Age: 28 Years : 1995 Sex: Female Language: Thai PCP: Linnea HACKETT PA-C Marital Status: Single [...] 05/26/2023 01:33:30 05/26/2023 01:33:30 05/26/2023 01:33:30 ADDRESS: [address] [place] [address] [id number] PHYS DOC NOTES: MEDICAL INFORMATION: Prescriptions Given: New Medications [id number], [address] [place], [place] [id number], [phone] brompheniramine/dextr omethorphan/PSE (Bromfed DM oral syrup) 5 [...] EDUCATION INFORMATION: Instructions: Upper Respiratory Infection, Adult, Muoa-aj-Qpug; Nausea and Vomiting, Adult, Yaqn-uq-Ksrh Follow up: With: Address: When: Linnea HACKETT [address] [place], [place] [address] Business (1) In 3 days 05/29/2023 Comments: You can use the Bromfed, Zofran every 6 hours as needed for cough, nausea and vomiting. Please follow-up with your primary care doctor in the next 2 to 3 days for further evaluation management. Please return to the ED for any new or worsening symptoms. DIAGNOSIS: Acute URI; N&V (nausea and vomiting) Normal [facility] ED Note-Physicianon 05-26-19 24 ED Note-Physician Basic Information Time Seen: Jean [...] and Complexity of Problems Differential Diagnosis: [] [facility] Data External documents reviewed: [] My EKG [...] for cold symptoms, 200 mL, Refill(s) 0, [facility], 173, cm, 05/25/23 22:46:00 EDT, Height/Length [...] Oral, q8 (more content not included)... Normal [facility] Comment on above: Result Comment: Elec tronically Signed By: Jean Bullard DO\.afsaneh\Date and Time Signed: 05/26/23 00:52 EDT ED [...] ? Low-calorie sports drinks. ? Eat bland, ccsr-mg-rlvipr foods in small amounts as you are able, such as: ? Bananas. ? Applesauce. ? Rice. ? Low-fat (lean) meats. ? Mcdermott. ? Crackers. ? Avoid drinking fluids that have a lot of sugar or caffeine in them. This includes energy drinks, sports drinks, and soda. ? Avoid alcohol. ? Avoid spicy or fatty foods. General instructions ? Take aisk-fqv-suynrbm and prescription medicines only as told by your doctor. ? Drink enough fluid to keep your pee (urine) pale yellow. ? Wash your hands often with soap and water for at least 20 seconds. If you cannot use soap and water, use hand resource forester. ? Make sure that everyone in your [...] doctor about eating and drinking. ? Take mkeo-wnx-hcuqjsd and prescription medicines only as told by your doctor. ? Contact your doctor if your symptoms get worse or you have new symptoms. ? Keep all follow-up visits. This information is not intended to replace advice given to you by your health care provider. Make sure you discuss any questions you have with your health care provider. Document Revised: 09/03/2021 Document Reviewed: 09/03/2021 ElseCRV Patient Education ? 2022 [email or web address] Infectious Disease Upper Respiratory Infection, Adult An [...] lung disease (more content not included)... Normal [facility] ED Patient Summaryon 024 ED Patient Summary [address] [address] Patient Discharge Instructions Person Information Name: ADINA MARTINEZ Age: 28 Years Arrival Date: 05/25/2023 22:37:09 Discharge Diagnosis: Acute URI; N&V (nausea and vomiting) Primary Care Physician: Linnea HACKETT PA-C Provider Information Primary Provider: Jean Bullard DO Advanced Three Dimensional Map Modeler:None The exam and treatment you received in the Emergency Department were for an urgent problem and are not intended as complete care. It is important that you follow up with a doctor, nurse practitioner, or physician?s assistant activities director for ongoing care. If your symptoms become [...] With: Address: When: Linnea HACKETT [address] [place] [address] Business (1) In 3 days [...] Patient Education Materials: Upper Respiratory Infection, Adult, Xmfl-kk-Orhs; Nausea and Vomiting, Adult, Aung-oj-Yzry A MESSAGE TO ALL PATIENTS REGARDING OPIOIDS PRESCRIPTION OPIOIDS: WHAT YOU NEED TO KNOW Prescription opioids can be used to help relieve hmvjuqln-tj-jewngu pain and are often prescribed following a [...] guidance fr (more content not included)... Normal [facility] Grp A Strp PCRon 05-26-2023 Grp A Strp Intrl Ctrl Pass Normal Fis [facility] Comment on above: Order Comment: Order Added on by Discern Rule. Performed By: #### 2 [id number], [id number] #### [facility] [address] [place] [address] S. pyogenes DNA KAITLIN+probe Ql (Throat) Negative Normal [facility] Comment on above: Order Comment: Order Added on by Discern Rule. Result Comment: Test ing performed using DNA amplification. Performed By: #### 2 [id number], [id number] #### [facility] [address] [place] [address] Influenza A&B Agon 4 Influenzae A Ag Negative Normal Negative [facility] Comment on above: Performed By: #### 2 [id number], [id number] #### [facility] [address] [place] [address] Influenzae B Ag Negative Normal Negative [facility] Comment on above: Result Comment: Test sensitivity and specificity vary for age group, specimen type, antigen types, and prevalence of disease. Test results must be evaluated in conjunction with other clinical data available to the physician. Individuals who received nasally administered Influenza A vaccine may have positive test results up to 3 days after vaccination. Performed By: #### 2 [id number], [id number] #### [facility] [address] [place] [address] Rapid COVID Antigen ([facility])on 05-26-2023 Rapid COV Int NEG Ctl Pass Normal Fis her [facility] Comment on above: Performed By: #### 2 [id number], [id number] #### [facility] [address] [place] [address] Rapid COV Int POS Ctl Pass Normal Fis her [facility] Comment on above: Performed By: #### 2 [id number], [id number] #### [facility] [address] [place] [address] SARS-CoV+SARS-CoV-2 (COVID-19) Ag IA.rapid Ql (Resp) Not detected Normal Not Detected [facility] Comment on above: Result Comment: The [place] System for Rapid Detection of SARS-CoV-2 is [...] For in vitro diagnostic use. In the [facility], only for use under an Emergency Use [...] or revoked sooner. Performed By: #### 2 [id number], [id number] #### [facility] [address] [place] [address] Rapid Strep w/rfxon 05-26-19 24 S. pyogenes Ag IA.rapid Ql (Throat) Negative Normal Negative [facility] Comment on above: Performed By: #### 2 [id number], [id number] #### [facility] [address] [place] [address] Troponin 0 Hr.on 05-26-2023 Troponin I.cardiac [Mass/Vol] ng/mL Low 10.10-27.10 [facility] Comment on above: Result Comment: The 95% CI (Confidence Interval) PPV (Positive Predictive Value) for myocardial infarction in females is 38 pg/mL, in males 51 pg/mL. The results should be used in conjunction with clinical conditions of myocardial infarction. (Access High Sensitivity Troponin I Instructions For Use, [employer], October 2017) Performed By: #### 2 327123, 47224485, 04698963, 56789386, 3145694, 51224160 ####[facility] [address] [place] [address] XR Chest Single Viewon 05-25 XR Chest Single View Exam Date/Time: 05/26/2023 00:38 EDT Reason for Exam: Cough Report [facility] [id number] IMPRESSION: There are no acute cardiopulmonary changes. [...] mGy = n/a DAP = n/a Normal [facility] eGFRon 05-26-2023 eGFR 125 mL/min/1.73 m2 Normal >=59 [facility] Comment on above: Order Comment: Order added by Discern Expert. Performed By: #### 2 114823, 01203160, 97826016, 63502358, 1033743, 14735715 ####[facility] [address] [place] [address] B hCG Qualon 05-25-2023 Beta HCG ( test) Ql Negative Normal [facility] Comment on above: Performed By: #### 2 [id number] #### [facility] [address] [place] [address] CBC w/ Auto Diffon 4 Basophils/100 WBC (Bld) 0.7 % Normal 0.0-2.0 [facility] Comment on above: Performed By: #### 2 877513, 29242925, 48082886, 53618171, 9246671, 13471519 #### [facility] [address] [place] [address] Basophils/Leukocytes Auto (Bld) [Pure # fraction] 0.1 E9/L Normal 0.0-0.2 [facility] Comment on above: Performed By: #### 2 430173, 94892997, 87062211, 25201268, 3234027, 02881815 #### [facility] [address] [place] [address] Eosinophils (Bld) [#/Vol] 0.1 E9/L Normal 0.0-0.5 [facility] Comment on above: Performed By: #### 2 157671, 23477394, 86646158, 31666508, 6661245, 15774899 #### [facility] [address] [place] [address] Eosinophils/100 WBC (Bld) 1.3 % Normal 0.0-8.0 [facility] Comment on above: Performed By: #### 2 612353, 22282393, 30629694, 43339644, 1959175, 21958969 #### [facility] [address] [place] [address] Erythrocyte distribution width (RBC) [Ratio] 14.5 % High 10.9-14.2 [facility] Comment on above: Performed By: #### 2 720735, 85243269, 92827407, 90756321, 3186273, 24597632 #### [facility] [address] [place] [address] Hematocrit (Bld) [Volume fraction] 33.3 % Low 34.0-46.0 [facility] Comment on above: Performed By: #### 2 124518, 93952606, 04605293, 78800226, 8255552, 44329131 #### [facility] [address] [place] [address] Hemoglobin (Bld) [Mass/Vol] 11.2 g/dL Low 12.0-16.0 [facility] Comment on above: Performed By: #### 2 508847, 83024670, 03015842, 59994693, 5280743, 68415394 #### [facility] [address] [place] [address] Lymphocytes (Bld) [#/Vol] 2.7 E9/L Normal 1.0-4.0 [facility] Comment on above: Performed By: #### 2 353798, 07948943, 90616260, [id number], [id number], [id number] #### [facility] [address] [place] [address] Lymphocytes/100 WBC (Bld) 32.5 % Normal 14.0-50.0 [facility] Comment on above: Performed By: #### 2 597516, 24055518, 97606922, 53338524, 4115390, 35755379 #### [facility] [address] [place] [address] MCH (RBC) [Entitic mass] 28.6 pg Normal 27.0-34.0 [facility] Comment on above: Performed By: #### 2 307032, 57504041, 92906458, 12779535, 0446398, 89533712 #### [facility] [address] [place] [address] MCHC (RBC) [Mass/Vol] 33.7 g/dL Normal 31.4-36.0 [facility] Comment on above: Performed By: #### 2 765347, 32340937, 30853157, 06907736, 6939966, 81071078 #### [facility] [address] [place] [address] MCV (RBC) [Entitic vol] 84.9 fL Normal 80.0-100.0 [facility] Comment on above: Performed By: #### 2 873589, 45749042, 71795026, 65055665, 6194031, 51019922 #### [facility] [address] [place] [address] Monocytes (Bld) [#/Vol] 0.5 E9/L Normal 0.2-1.0 [facility] Comment on above: Performed By: #### 2 724395, 86746974, 35808526, 89386136, 2163270, 22470356 #### [facility] [address] [place] [address] Neutrophils (Bld) [#/Vol] 4.9 E9/L Normal 2.0-7.5 [facility] Comment on above: Performed By: #### 2 218235, 72815077, 81807332, 26514244, 3891837, 86915266 #### [facility] [address] [place] [address] Neutrophils/100 WBC (Bld) 59.4 % Normal 36.0-75.0 [facility] Comment on above: Performed By: #### 2 557711, 57073065, 32472201, 70986788, 3053526, 20758348 #### [facility] [address] [place] [address] Platelet 332.0 E9/L Normal 150.0-500.0 [facility] Comment on above: Performed By: #### 2 891241, 40533065, 93566376, 00721855, 7233552, 99384378 #### [facility] [address] [place] [address] Platelet mean volume (Bld) [Entitic vol] 7.7 fL Normal 6.4-10.8 [facility] Comment on above: Performed By: #### 2 311568, 03241027, 14204083, 99185638, 7030164, 75418938 #### [facility] [address] [place] [address] RBC (Bld) [#/Vol] 3.9 E12/L Low 4.3-5.9 [facility] Comment on above: Performed By: #### 2 531340, 69416160, 89966573, 78367833, 0641319, 08109575 #### [facility] [address] [place] [address] WBC corrected for nucl RBC Auto (Bld) [#/Vol] 8.3 E9/L Normal 4.0-11.0 [facility] Comment on above: Performed By: #### 2 078552, 48444965, 70058998, 43755135, 0644059, 67066637 #### [facility] [address] [place] [address] CHEMISTRYOrdered By: SYSTEM SYSTEM on 05-25-2023 Anion [...] Sensitivity Troponin I Instructions For Use, [place], October 2017) Urea nitrogen [Mass/Vol] 17 mg/dL Normal 5 - 21 mg/dL Remisol Chem Urea nitrogen/Creatinine [Mass ratio] 28 mg/mg High 10 - 20 Remisol Chem CHEMISTRYOrdered By: Arash crouch on 05-25-2023 Natriuretic peptide B (Bld) [Mass/Vol] pg/mL Normal 5 - 80 pg/mL [facility] COAGULATIONOrdered By: Arash Sullivan on 05-25-2023 aPTT Coag (PPP) [Time] 35.4 s Normal 25.1 - 36.5 second(s) [facility] Auto Coag Comment on above: Interpretive Data: [...] obtained from a study by vicente Yepez alEula prepared from 1437 samples obtained at 7 different centers using the same coagulation reagent and instrumentation as [facility]. Currently there are no coagulation studies available worldwide for children to 14 days, and no normal ranges. Heparin therapeutic range (represented by Anti-Factor Xa activity of 0.2 - 0.4 U/mL) corresponds to PTT of 56.6 - 109.0 sec. INR Coag (PPP) [Relative time] 0.98 {INR} Invalid Interpretation Code [facility] Auto Coag Comment on above: Interpretive Data: I NR results are specifically intended to assess patients stabilized on long-term Anticoagulation therapy suggested INR s Less Intensive Anticoagulation 2.0 3.0 Conventional Range 3.0 4.5 PT Coag (PPP) [Time] 11.0 s Normal 9.4 - 1 2.5 second(s) [facility] Auto Coag Comment on above: Interpretive Data: [...] the same coagulation reagent and instrumentation as [facility]. Currently there are no coagulation studies available worldwide for children to 14 days, and no normal ranges. Consent for Treatmenton 05-11 Consent for Treatment [id number]#[address] [facility] HEMATOLOGYOrdered By: SYSTEM SYSTEM on 05-25-2023 [...] Ag Negative (05/25/23 11:57 PM) Normal Negative [facility] Man Sero Influenzae B Ag Negative 1 (05/25/23 11:57 PM) Normal Negative [facility] Man Sero Comment on above: Interpretive Data: [...] NEG Ctl Pass (05/25/23 11:57 PM) Normal [facility] Man Sero Rapid COV Int POS Ctl Pass (05/25/23 11:57 PM) Normal [facility] Sero S. pyogenes Ag IA.rapid Ql (Throat) Negative (05/25/23 11:57 PM) Normal Negative [facility] Sero SARS-CoV+SARS-CoV-2 (COVID-19) Ag IA.rapid Ql (Resp) Not Detected 6 (05/25/23 11:57 PM) Normal Not Detected [facility] Man Sero Comment on above: Interpretive Data: T he [employer] microcaps Veritor System for Rapid Detection of SARS-CoV-2 [...] Coag (PPP) [Time] 35.4 second(s) Normal 25.1-36.5 [facility] Comment on above: Result Comment: Para [...] the same coagulation reagent and instrumentation as [facility]. Currently there are no coagulation studies available worldwide for children to 14 days, and no normal ranges. Heparin therapeutic range (represented by Anti-Factor Xa activity of 0.2 - 0.4 U/mL) corresponds to PTT of 56.6 - 109.0 sec. Performed By: #### 2 633723, 38450182, 38331701, 54865032, 3086799, 02947156 ####[facility] [place] [address] INR Coag (PPP) [Relative time] 0.98 {INR} Invalid Interpretation Code [facility] Comment on above: Result Comment: INR results are specifically intended to assess patients stabilized on long-term Anticoagulation therapy suggested INR?s ?Less Intensive Anticoagulation? 2.0 ? 3.0 Conventional Range 3.0 ? 4.5 Performed By: #### 2 795233, 97316637, 78098791, 72772501, 2078521, 86838715 ####[facility] [address] [place] [address] PT Coag (PPP) [Time] 11.0 second(s) Normal 9.4-12.5 [facility] Comment on above: Result Comment: 15 [...] the same coagulation reagent and instrumentation as [facility]. Currently there are no coagulation studies available worldwide for children to 14 days, and no normal ranges. Performed By: #### 2 780224, 90398447, 06011347, 37431042, 9665740, 13945117 ####[facility] [address] [place] [address] SEROLOGYOrdered By: Arash garduno on 05-25-2023 Beta HCG ( test) Ql Negative (05/25/23 11:34 PM) Normal [facility] Man Sero Consent for Treatmenton 04-14 Consent for Treatment [id number]#[address] [facility] Physician Orderon 05-08-2023 Physician Order [id number]#[address] [facility] TSH With T4fr Reflexon 05-08 TSH Qn 2.36 m[IU]/L Normal 0.34-5.60 [facility] Comment on above: Performed By: #### 1 [id number] #### [facility] [address] [place] [address] Pathology Noteon 04-26-2023 Pathology Note [id number]#[address] [facility] Alkaline phosphatase [Enzyma tic activity/volume] in Serum or PlasmaOrdered By: Kirk Rush on 04-06-2023 ALP [Catalytic activity/Vol] 63 U/L 34-104 [facility] Amylase [Enzymatic activity/ volume] in Serum or PlasmaOrdered By: Kirk Rush on 04-06-2023 Amylase [Catalytic activity/Vol] 32 U/L 29-103 [facility] Bilirubin.direct [Mass/volum e] in Serum or PlasmaOrdered By: Kirk Rush on 04-06-2023 Bilirubin.direct [Mass/Vol] 0.10 mg/dL 0.03-0.18 [facility] Bilirubin.total [Mass/volume ] in Serum or PlasmaOrdered By: Kirk Rush on 04-06-2023 Bilirubin [Mass/Vol] 0.5 mg/dL 0.3-1.0 [facility] HCG ( test) IA.rapi d Ql (U)Ordered By: Alonzo Robledo on 04-06-2023 HCG ( test) Ql (U) Negative [facility] Lipase [Enzymatic activity/v olume] in Serum or PlasmaOrdered By: Kirk Rush on 04-06-2023 Lipase [Catalytic activity/Vol] 11.0 U/L 11.0-82.0 [facility] Serum or plasma non-glucuron idated bilirubin measurement (mass/volume)Ordered By: Kirk Rush on 04-06-2023 Bilirubin.indirect [Mass/Vol] 0.4 mg/dL [facility] Pathology Noteon 04-05-2023 Pathology Note [id number]#1. 00TIFF Normal [facility] Pathology Reporton Pathology Report [id number]#1. 00TIFF Normal [facility] Consent for Treatmenton Consent for Treatment [id number]#[address] [facility] Physician Orderon 03-15-2023 Physician Order [id number]# 1.00TIFF Normal [facility] XR Chest 2 Viewson 4 XR [...] mGy = na DAP = na Normal [facility] CT Chest W contrast Monisha IMPRESSION: 1. No interval change since 12/26/22. 2. Subcentimeter nodular opacities measuring less than 5 mm, stable. 3. Findings compatible with previous granulomatous disease. Transcribe Date/Time: Feb 24 2023 2:23P Dictated by: ALBINO ZAMBRANO MD This examination was interpreted and the report reviewed and electronically signed by: ALBINO ZAMBRANO MD on Dec 15 2023 2:37PM EST Thank you for allowing us to participate in the care of your patient. Should there be any questions regarding this interpretation, please call [phone]. If you are unable to reach us at the number above, please feel free to contact [facility] at [phone]. DIVISION OF RADIOLOGY * * *Final Report* [...] MRI scan report for the abdomen findings. Roll Shop Supervisor (topogram) images: No additional findings. DIVISION OF RADIOLOGY Provider, Kieran Jung - 02/24/2023 * * *Final Report* * [...] MRI scan report for the abdomen findings. Roll Shop Supervisor (topogram) images: No additional findings. IMPRESSION IMPRESSION: [...] any questions regarding this interpretation, please call [phone]. If you are unable to reach us at the number above, please feel free to contact [facility] eRadiology at [phone]. [facility] CT Chest W contrast IVOrdere d By: Ccf Provider on 02-24-2023 [facility] MR Abdomen WO and W contrast [...] any questions regarding this interpretation, please call [phone]. If you are unable to reach us at the number above, please feel free to contact [facility]Radiology at [phone]. DIVISION OF RADIOLOGY * * *Final Report* * * DATE OF EXAM: Feb 23 2023 3:32PM [facility] 0689 - MRI ABDOMEN WO/W [...] be reported separately. DIVISION OF RADIOLOGY Provider, Kate Arlet [facility] - 02/23/2023 * * *Final Report* * * DATE OF EXAM: Feb 23 2023 3:32PM [facility] 0689 - MRI ABDOMEN WO/W [...] any questions regarding this interpretation, please call [phone]. If you are unable to reach us at the number above, please feel free to contact [facility] at [phone]. [facility] MR Abdomen WO and W contrast IVOrdered By: Ccf Provider on 02-23-2023 [facility] No Panel Informationon 02-23 Radiology Study observation (narrative) Fer buenrostro [facility] C Urineon 02-16-2023 Bacteria identified Cx Nom (U) Microbiology PROCEDURE: Urine Culture [R1] SOURCE: U CleanCatch BODY SITE: COLLECTED DATE/TIME: 02/14/2023 05:26 EST RECEIVED DATE/TIME: 02/14/2023 08:35 EST START DATE/TIME: 02/14/2023 08:36 EST FREE TEXT SOURCE: Héctor Christianson DO, DO, Héctor Guillen. FINAL REPORTS Final Report [] Verified Date/Time: 02/16/2023 07:11 EST 25,000 cfu/ml Mixed skin contaminants Performing Locations R1: This test was performed at: [facility], [address] [place] [address], [address] , , Normal [facility] Comment on above: Performed By: #### 2 [id number] #### [facility] [address] [place] [address] Auto Diffon 02-14-2023 Basophils/100 WBC (Bld) 0.9 % Normal 0.0-2.0 [facility] Comment on above: Order Comment: Order Added by Discern Expert. Performed By: #### 2 [id number] #### [facility] [address] [place] [address] Basophils/Leukocytes Auto (Bld) [Pure # fraction] 0.1 E9/L Normal 0.0-0.2 [facility] Comment on above: Order Comment: Order Added by Discern Expert. Performed By: #### 2 [id number] #### [facility] [address] [place] [address] Eosinophils/100 WBC (Bld) 1.5 % Normal 0.0-8.0 [facility] Comment on above: Order Comment: Order Added by Discern Expert. Performed By: #### 2 [id number] #### [facility] [address] [place] [address] Eosinophils/Leukocytes Auto (Bld) [Pure # fraction] 0.2 E9/L Normal 0.0-0.5 [facility] Comment on above: Order Comment: Order Added by Discern Expert. Performed By: #### 2 [id number] #### [facility] [address] [place] [address] Lymphocytes/100 WBC (Bld) 35.5 % Normal 14.0-50.0 [facility] Comment on above: Order Comment: Order Added by Discern Expert. Performed By: #### 2 [id number] #### [facility] [address] [place] [address] Lymphocytes/Leukocytes Auto (Bld) [Pure # fraction] 3.8 E9/L Normal 1.0-4.0 [facility] Comment on above: Order Comment: Order Added by Discern Expert. Performed By: #### 2 [id number] #### [facility] [address] [place] [address] Monocytes/100 WBC (Bld) 6.2 % Normal 4.0-14.0 [facility] Comment on above: Order Comment: Order Added by Discern Expert. Performed By: #### 2 [id number] #### [facility] [address] [place] [address] Monocytes/Leukocytes Auto (Bld) [Pure # fraction] 0.7 E9/L Normal 0.2-1.0 [facility] Comment on above: Order Comment: Order Added by Discern Expert. Performed By: #### 2 [id number] #### [facility] [address] [place] [address] Neutrophils/100 WBC (Bld) 55.9 % Normal 36.0-75.0 [facility] Comment on above: Order Comment: Order Added by Discern Expert. Performed By: #### 2 [id number] #### [facility] [address] [place] [address] Neutrophils/Leukocytes Auto (Bld) [Pure # fraction] 6.0 E9/L Normal 2.0-7.5 [facility] Comment on above: Order Comment: Order Added by Discern Expert. Performed By: #### 2 [id number] #### [facility] [address] [place] [address] B hCG Qualon 02-14-2023 Beta HCG ( test) Ql Negative Normal [facility] Comment on above: Performed By: #### 2 [id number] #### [facility] [address] [place] [address] BMPon 02-14-2023 Creatinine [Mass/Vol] 0.8 mg/dL Normal 0.5-1.3 [facility] Comment on above: Performed By: #### 2 6139486 #### [facility] [address] [place] [address] Urea nitrogen [Mass/Vol] 13 mg/dL Normal 5-21 [facility] Comment on above: Performed By: #### 2 [id number] #### [facility] [address] [place] [address] Urea nitrogen/Creatinine [Mass ratio] 16 No Units Normal 10-20 [facility] Comment on above: Performed By: #### 2 [id number] #### [facility] [address] [place] [address] Anion gap [Moles/Vol] 9 mmol/L Normal 6-16 [facility] Comment on above: Performed By: #### 2 [id number] #### [facility] [address] [place] [address] Calcium [Mass/Vol] 8.7 mg/dL Low 8.9-11.1 [facility] Comment on above: Performed By: #### 2 [id number] #### [facility] [address] [place] [address] Chloride [Moles/Vol] 108 mmol/L Normal 101-111 [facility] Comment on above: Performed By: #### 2 2823987 #### [facility] [address] [place] [address] CO2 [Moles/Vol] 24 mmol/L Normal 21-31 [facility] Comment on above: Performed By: #### 2 [id number] #### [facility] [address] [place] [address] Glucose [Mass/Vol] 107 mg/dL Normal 55-199 [facility] Comment on above: Result Comment: If t his glucose result represents a fasting glucose, interpretation should refer to the following reference range: 55-99 mg/dL Performed By: #### 2 [id number] #### [facility] [address] [place] [address] Potassium [Moles/Vol] 3.5 mmol/L Normal 3.5-5.3 [facility] Comment on above: Performed By: #### 2 [id number] #### [facility] [address] [place] [address] Sodium [Moles/Vol] 137 mmol/L Normal 135-145 [facility] Comment on above: Performed By: #### 2 [id number] #### [facility] [address] [place] [address] CBC w/ Auto Diffon 3 Erythrocyte distribution width (RBC) [Ratio] 13.6 % Normal 10.9-14.2 [facility] Comment on above: Performed By: #### 2 [id number] #### [facility] [address] [place] [address] Hematocrit (Bld) [Volume fraction] 37.6 % Normal 34.0-46.0 [facility] Comment on above: Performed By: #### 2 [id number] #### [facility] [address] [place] [address] Hemoglobin (Bld) [Mass/Vol] 12.2 g/dL Normal 12.0-16.0 [facility] Comment on above: Performed By: #### 2 [id number] #### [facility] [address] [place] [address] MCH (RBC) [Entitic mass] 27.8 pg Normal 27.0-34.0 [facility] Comment on above: Performed By: #### 2 [id number] #### [facility] [address] [place] [address] MCHC (RBC) [Mass/Vol] 32.5 g/dL Normal 31.4-36.0 [facility] Comment on above: Performed By: #### 2 [id number] #### [facility] [address] [place] [address] MCV (RBC) [Entitic vol] 85.5 fL Normal 80.0-100.0 [facility] Comment on above: Performed By: #### 2 [id number] #### [facility] [address] [place] [address] Platelet mean volume (Bld) [Entitic vol] 8.1 fL Normal 6.4-10.8 [facility] Comment on above: Performed By: #### 2 [id number] #### [facility] [address] [place] [address] Platelets (Bld) [#/Vol] 347.0 E9/L Normal 150.0-500.0 [facility] Comment on above: Performed By: #### 2 [id number] #### [facility] [address] [place] [address] RBC (Bld) [#/Vol] 4.4 E12/L Normal 4.3-5.9 [facility] Comment on above: Performed By: #### 2 [id number] #### [facility] [address] [place] [address] WBC corrected for nucl RBC Auto (Bld) [#/Vol] 10.7 E9/L Normal 4.0-11.0 [facility] Comment on above: Performed By: #### 2 [id number] #### [facility] [address] [place] [address] CHEMISTRYOrdered By: SYSTEM SYSTEM on 02-14-2023 Albumin [...] 121 mL/min/1.73 m2 Normal >=59mL/min/ 1.73 m2 [facility] Chem S Comment on above: Interpretive Data: C hronic kidney disease could be indicated at eGFR's of less than 60 mL/min/1.73m2. Kidney failure is indicated at less than 15 mL/min/1.73m2. Globulin (S) [Mass/Vol] 3.7 g/dL Normal 1.4 - 4.0 gm/dL [facility] Remisol Glucose [Mass/Vol] 92 mg/dL Normal 55 - 199 mg/dL [facility] [...] 3.7 g/dL Normal 3.3 - 5.0 gm/dL [facility] Remisol Albumin/Globulin [Mass ratio] 1.1 {ratio} Normal [...] 103 mL/min/1.73 m2 Normal >=59mL/min/ 1.73 m2 [facility] Chem S Comment on above: Interpretive Data: C hronic kidney disease could be indicated at eGFR's of less than 60 mL/min/1.73m2. Kidney failure is indicated at less than 15 mL/min/1.73m2. Globulin (S) [Mass/Vol] 3.4 g/dL Normal 1.4 - 4.0 gm/dL [facility] Remisol Glucose [Mass/Vol] 107 mg/dL Normal 55 - 199 mg/dL [facility] Remisol Comment on above: Interpretive Data: I f this glucose result represents a fasting glucose, interpretation should refer to the following reference range: 55-99 mg/dL Lipase [Catalytic activity/Vol] 35 U/L Normal 13 - 58 unit/L [facility] Remisol Potassium [Moles/Vol] 3.5 mmol/L Normal 3.5 - 5.3 mmol/L [facility] Remisol Protein [Mass/Vol] 7.1 g/dL Normal 6.0 - 7.8 gm/dL [facility] Remisol Sodium [Moles/Vol] 137 mmol/L Normal 135 - 145 mmol/L [facility] Remisol Urea nitrogen [Mass/Vol] 13 mg/dL Normal 5 - 21 mg/dL [facility] Remisol Urea nitrogen/Creatinine [Mass ratio] 16 mg/mg Normal 10 - 20 [facility] Remisol CMPon 02-14-2023 Albumin [Mass/Vol] 3.8 g/dL Normal 3.3-5.0 [facility] Comment on above: Performed By: #### 2 [id number] #### [facility] [address] [place] [address] Albumin/Globulin (S) [Mass conc ratio] 1.0 Low 1.1-2.2 [facility] Comment on above: Performed By: #### 2 [id number] #### [facility] [address] [place] [address] ALP [Catalytic activity/Vol] 72 Int._Unit/L Normal 21-98 [facility] Comment on above: Performed By: #### 2 [id number] #### [facility] [address] [place] [address] ALT No additional P-5'-P [Catalytic activity/Vol] 14 Int._Unit/L Normal 6-46 [facility] Comment on above: Performed By: #### 2 [id number] #### [facility] [address] [place] [address] Anion gap [Moles/Vol] 10 mmol/L Normal 6-16 [facility] Comment on above: Performed By: #### 2 [id number] #### [facility] [address] [place] [address] AST [Catalytic activity/Vol] 20 Int._Unit/L Normal 5-43 [facility] Comment on above: Performed By: #### 2 [id number] #### [facility] [address] [place] [address] Bilirubin [Mass/Vol] 0.3 mg/dL Normal 0.0-1.1 [facility] Comment on above: Performed By: #### 2 [id number] #### [facility] [address] [place] [address] Calcium [Mass/Vol] 9.6 mg/dL Normal 8.9-11.1 [facility] Comment on above: Performed By: #### 2 [id number] #### [facility] [address] [place] [address] Chloride [Moles/Vol] 109 mmol/L Normal 101-111 [facility] Comment on above: Performed By: #### 2 [id number] #### [facility] [address] [place] [address] CO2 [Moles/Vol] 24 mmol/L Normal 21-31 [facility] Comment on above: Performed By: #### 2 [id number] #### [facility] [address] [place] [address] Creatinine [Mass/Vol] 0.7 mg/dL Normal 0.5-1.3 [facility] Comment on above: Performed By: #### 2 [id number] #### [facility] [address] [place] [address] Globulin (S) [Mass/Vol] 3.7 g/dL Normal 1.4-4.0 [facility] Comment on above: Performed By: #### 2 [id number] #### [facility] [address] [place] [address] Glucose [Mass/Vol] 92 mg/dL Normal 55-199 [facility] Comment on above: Result Comment: If t his glucose result represents a fasting glucose, interpretation should refer to the following reference range: 55-99 mg/dL Performed By: #### 2 [id number] #### [facility] [address] [place] [address] Potassium [Moles/Vol] 3.9 mmol/L Normal 3.5-5.3 [facility] Comment on above: Performed By: #### 2 [id number] #### [facility] [address] [place] [address] Protein [Mass/Vol] 7.5 g/dL Normal 6.0-7.8 [facility] Comment on above: Performed By: #### 2 [id number] #### [facility] [address] [place] [address] Sodium [Moles/Vol] 139 mmol/L Normal 135-145 [facility] Comment on above: Performed By: #### 2 [id number] #### [facility] [address] [place] [address] Urea nitrogen [Mass/Vol] 12 mg/dL Normal 5-21 [facility] Comment on above: Performed By: #### 2 [id number] #### [facility] [address] [place] [address] Urea nitrogen/Creatinine [Mass ratio] 17 No Units Normal 10-20 [facility] Comment on above: Performed By: #### 2 [id number] #### [facility] [address] [place] [address] CT Abdomen/Pelvis w/ Contras ton 02-14-2023 CT [...] 300 Contrast amount in ml's: [address] [facility] Consent for Treatmenton Consent for Treatment [id number]#1 [address] [facility] Consent for Treatment [id number]#[address] [facility] Discharge Instructionson Discharge Instructions [id number]# 1.00TIFF Normal [facility] ED Clinical Summaryon 2022 ED Clinical Summary [place] [id number] ED Clinical Summary Person Information Name: ADINA MARTINEZ [facility] Age: 28 Years : 1995 Sex: Female Language: Thai PCP: Linnea HACKETT PA-C Marital Status: Single [...] 02/14/2023 07:14:20 02/14/2023 07:14:20 02/14/2023 07:14:20 ADDRESS: [address] [place] [id number] PHYS DOC NOTES: MEDICAL INFORMATION: Prescriptions Given: New Medications [facility]/pharmacy #[id number], [address] [place], [place] [id number], [phone] dicyclomine (Bentyl 10 mg Cap) 1 Capsules [...] Address: When: Linnea HACKETT [address] [place] [address] Business (1) In 3 days DIAGNOSIS: AP (abdominal pain) Normal [facility] ED Note-Physicianon 02-15-20 ED Note-Physician Basic Information Time Seen: Héctor Christianson DO [place] 02/14/2023 02:31 Chief Complaint Upper ABD pain [...] and Complexity of Problems Differential Diagnosis: [] MDM Data External documents reviewed: N/A My EKG [...] day(s), # 28 cap(s), Refills(s) 0, Pharmacy: [facility]/pharmacy #[id number], 173, cm, 02/14/23 2:34:00 EST, Height/Length Dosing, 119.3, kg, 02/14/23 2:34:00 EST, Weight Dosing famotidine, 20 mg = 1 tab(s), Oral, Daily, X 7 day(s), # 7 tab(s), Refills(s) 0, Pharmacy: [facility]/pharmacy #[id number], 173, cm, 02/14/23 2:34:00 EST, Height/Length [...] 1 cap(s (more content not included)... Normal [facility] Comment on above: Result Comment: Elec [...] these instructions at home: Medicines ? Take dsks-yim-hjrdxgh and prescription medicines only as told by [...] your condition for any changes. ? Take nfsg-ldy-jshjbqv and prescription medicines only as told by [...] provider. Document Revised: 04/17/2020 Document Reviewed: 07/08/2019 Elsevier Patient Education ? 2022 [email or web address] Normal [facility] ED Patient Summaryon 023 ED Patient Summary [address] [address] Patient Discharge Instructions Person Information Name: ADINA MARTINEZ Age: 28 Years Arrival Date: 02/14/2023 02:28:07 Discharge Diagnosis: AP (abdominal pain) Primary Care Physician: Linnea HACKETT PA-C Provider Information Primary Provider: Héctor Christianson DO Advanced Three Dimensional Map Modeler:None The exam and treatment you received in the Emergency Department were for an urgent problem and are not intended as complete care. It is important that you follow up with a doctor, nurse practitioner, or physician?s assistant activities director for ongoing care. If your symptoms become worse or you do not improve as expected and you are unable to reach your usual health care provider, you should return to the Emergency Department. We are available 24 hours a day. ADINA MARTINEZ has been given the following list of patient education materials, prescriptions and follow-up instructions: Follow-up Instructions: With: Address: When: Linnea HACKETT [address] [place] [address] Business (1) In 3 days In the event that this physician does not participate in your insurance network, please consult with your insurance company to find a nearby participating provider. Patient Education Materials: Abdominal Pain, Adult A MESSAGE TO ALL PATIENTS REGARDING OPIOIDS PRESCRIPTION OPIOIDS: WHAT YOU NEED TO KNOW Prescription opioids can be used to help relieve wejebmub-ls-epkoyu pain and are often prescribed following a [...] be struggling with addiction, tell your health health care facilities inspector and ask for guidance or call [facility]?S National Helpline at 2-445-200-LVQC. y Source: [place] Department of (more content not included)... Normal [facility] HEMATOLOGYOrdered By: SYSTEM SYSTEM on 02-14-2023 [...] 6.0 E9/L Normal 2.0 - 7.5 E9/L [facility] HemeAutoSS HEMATOLOGYOrdered By: Nuvia Emerson on 02-14-2023 Erythrocyte distribution width (RBC) [Ratio] 13.6 % Normal 10.9 - 14.2 % [facility] HemeAutoSS Hematocrit (Bld) [Volume fraction] 37.6 % Normal 34.0 - 46.0 % [facility] HemeAutoSS Hemoglobin (Bld) [Mass/Vol] 12.2 g/dL Normal 12.0 - 16.0 gm/dL [facility] HemeAutoSS MCH (RBC) [Entitic mass] 27.8 pg Normal 27.0 - 34.0 pg [facility] HemeAutoSS MCHC (RBC) [Mass/Vol] 32.5 g/dL Normal 31.4 - 36.0 gm/dL [facility] HemeAutoSS MCV (RBC) [Entitic vol] 85.5 fL Normal 80.0 - 100.0 fL [facility] HemeAutoSS Platelet mean volume (Bld) [Entitic vol] 8.1 fL Normal 6.4 - 10.8 fL [facility] HemeAutoSS Platelets (Bld) [#/Vol] 347.0 E9/L Normal 150. 0 - 500.0 E9/L [facility] HemeAutoSS RBC (Bld) [#/Vol] 4.4 E12/L Normal 4.3 - 5.9 E12/L [facility] HemeAutoSS WBC corrected for nucl RBC Auto (Bld) [#/Vol] 10.7 E9/L Normal 4.0 - 11.0 E9/L [facility] HemeAutoSS Hep Func Panelon 02-14-2023 Bilirubin.indirect [Mass or moles/Vol] UTC Abnormal 0.1-0.9 [facility] Comment on above: Result Comment: Resu lt verified by Discern Rule. Performed result UTC (Unable to Calculate) was sent as an Alpha code due the inability to calculate a valid numeric value. Performed By: #### 2 [id number] #### [facility] [address] [place] [address] Albumin [Mass/Vol] 3.7 g/dL Normal 3.3-5.0 [facility] Comment on above: Performed By: #### 2 [id number] #### [facility] [address] [place] [address] Albumin/Globulin (S) [Mass conc ratio] 1.1 Normal 1.1-2.2 [facility] Comment on above: Performed By: #### 2 [id number] #### [facility] [address] [place] [address] ALP [Catalytic activity/Vol] 74 Int._Unit/L Normal 21-98 [facility] Comment on above: Performed By: #### 2 [id number] #### [facility] [address] [place] [address] ALT No additional P-5'-P [Catalytic activity/Vol] 14 Int._Unit/L Normal 6-46 [facility] Comment on above: Performed By: #### 2 [id number] #### [facility] [address] [place] [address] AST [Catalytic activity/Vol] 15 Int._Unit/L Normal 5-43 [facility] Comment on above: Performed By: #### 2 [id number] #### [facility] [address] [place] [address] Bilirubin [Mass/Vol] 0.2 mg/dL Normal 0.0-1.1 [facility] Comment on above: Performed By: #### 2 [id number] #### [facility] [address] [place] [address] Globulin (S) [Mass/Vol] 3.4 g/dL Normal 1.4-4.0 [facility] Comment on above: Performed By: #### 2 [id number] #### [facility] [address] [place] [address] Protein [Mass/Vol] 7.1 g/dL Normal 6.0-7.8 [facility] Comment on above: Performed By: #### 2 [id number] #### [facility] [address] [place] [address] Bilirubin.direct [Mass/Vol] mg/dL Normal 0.1-0.4 [facility] Comment on above: Performed By: #### 2 [id number] #### [facility] [address] [place] [address] Lipase Levelon 02-14-2023 Lipase [Catalytic activity/Vol] 35 U/L Normal 13-58 [facility] Comment on above: Performed By: #### 2 [id number] #### [facility] [address] [place] [address] Physician Orderon 02-14-2023 Physician Order [id number]# 1.00TIFF Normal [facility] RAD - Preliminary Cat Scan R eporton 02-14-2023 RAD - Preliminary Cat Scan Report [id number]# 1.00TIFF Normal [facility] SEROLOGYOrdered By: Pallavi Emerson on 02-14-2023 Beta HCG ( test) Ql Negative (02/14/23 2:47 AM) Normal [facility] Man Sero UA With Cult Reflexon 2022 Bacteria LM Ql (Urine sed) 2+ /HPF Abnormal Trace [facility] Comment on above: Performed By: #### 2 [id number] #### [facility] [address] [place] [address] Bilirubin Ql (U) Negative Normal Negative [facility] Comment on above: Performed By: #### 2 [id number] #### [facility] [address] [place] [address] Clarity (U) CLOUDY Abnormal Clear [facility] Comment on above: Performed By: #### 2 [id number] #### [facility] [address] [place] [address] Color (U) YELLOW Normal Yellow [facility] Comment on above: Performed By: #### 2 [id number] #### [facility] [address] [place] [address] Crystals LM Ql (Urine sed) Present Normal [facility] Comment on above: Performed By: #### 2 [id number] #### [facility] [address] [place] [address] Epithelial cells.squamous LM.HPF (Urine sed) [#/Area] /[HPF] Normal 0-2 [facility] Comment on above: Performed By: #### 2 [id number] #### [facility] [address] [place] [address] Glucose Test strip (U) [Mass/Vol] Negative Normal Negative [facility] Comment on above: Performed By: #### 2 [id number] #### [facility] [address] [place] [address] Hemoglobin Ql (U) 3+ Abnormal Negative [facility] Comment on above: Performed By: #### 2 [id number] #### [facility] [address] [place] [address] Ketones (U) [Mass/Vol] Negative Normal Negative [facility] Comment on above: Performed By: #### 2 [id number] #### [facility] [address] [place] [address] Tunica.plasma/Tunica. RBC (Bld) [Mass ratio] 4-20 Normal 0-3 [facility] Comment on above: Performed By: #### 2 [id number] #### [facility] [address] [place] [address] Mucus Ql (Urine sed) TRACE Normal [facility] Comment on above: Performed By: #### 2 [id number] #### [facility] [address] [place] [address] Nitrite Ql (U) Negative Normal Negative [facility] Comment on above: Performed By: #### 2 [id number] #### [facility] [address] [place] [address] pH (U) 5.0 [pH] Invalid Interpretation Code 5.0-9.0 [facility] Comment on above: Performed By: #### 2 [id number] #### [facility] [address] [place] [address] Protein (U) [Mass/Vol] 1+ Abnormal Negative [facility] Comment on above: Performed By: #### 2 [id number] #### [facility] [address] [place] [address] Specific gravity (U) [Rel density] 1.020 Invalid Interpretation Code 1.005-1.030 [facility] Comment on above: Performed By: #### 2 [id number] #### [facility] [address] [place] [address] Type of Urine collection method Clean Catch Normal [facility] Comment on above: Performed By: #### 2 [id number] #### [facility] [address] [place] [address] Urobilinogen Qn (U) 0.2 {Vidya'U}/dL Normal 0.0-1.0 [facility] Comment on above: Performed By: #### 2 [id number] #### [facility] [address] [place] [address] WBC Auto Ql (U) Negative Normal Negative [facility] Comment on above: Performed By: #### 2 [id number] #### [facility] [address] [place] [address] WBC LM.HPF (Urine sed) [#/Area] 0-5 Normal 0-5 [facility] Comment on above: Performed By: #### 2 [id number] #### [facility] [address] [place] [address] URINALYSISOrdered By: Nuvia Emerson on 02-14-2023 Bacteria LM Ql (Urine sed) 2+ /HPF Invalid Interpretation Code Trace/HPF [facility] UA Auto SS Bilirubin Ql (U) Negative [...] AM) Normal Negative [facility] UA Auto SS Tunica.plasma/Tunica. RBC (Bld) [Mass ratio] 4-20 /HPF Normal 0-3/HPF [facility] UA A uto SS Mucus Ql (Urine sed) Trace (02/14/23 5:26 AM) Normal [facility] UA Auto SS Nitrite Ql (U) Negative (02/14/23 5:26 AM) Normal Negative [facility] UA Auto SS pH (U) 5.0 *NA* (02/14/23 5:26 AM) Invalid Interpretation Code 5.0 - 9.0 [facility] UA Auto SS Protein (U) [Mass/Vol] 1+ *ABN* (02/14/23 5:26 AM) Invalid Interpretation Code Negative [facility] UA Auto SS Specific gravity (U) [Rel density] 1.020 *NA* (02/14/23 5:26 AM) Invalid Interpretation Code 1.005 - 1.030 [facility] UA Auto SS UA Spec Desc Clean Catch (02/14/23 5:26 AM) Normal [facility] UA Auto SS Urobilinogen Qn (U) 0.9486264 {Vidya'U}/dL Normal 0.0 - 1.0 EU/dL [facility] UA Auto SS WBC Auto Ql (U) Negative (02/14/23 5:26 AM) Normal Negative [facility] UA Auto SS WBC LM.HPF (Urine sed) [#/Area] 0-5 /HPF Normal 0-5/HPF [facility] UA Auto SS eGFRon 02-14-2023 GFR/1.73 sq M.predicted among non-blacks MDRD (S/P/Bld) [Vol rate/Area] 121 mL/min/1.73 m2 Normal >=59 [facility] Comment on above: Order Comment: Order added by Discern Expert. Result Comment: Senior [employer] Developer andrews kidney disease could be indicated at eGFR's of less than 60 mL/min/1.73m2. Kidney failure is indicated at less than 15 mL/min/1.73m2. Performed By: #### 2 [id number] #### [facility] [address] [place] [address] GFR/1.73 sq M.predicted among non-blacks MDRD (S/P/Bld) [Vol rate/Area] 103 mL/min/1.73 m2 Normal >=59 [facility] Comment on above: Order Comment: Order added by Discern Expert. Result Comment: Senior [employer] Developer andrews kidney disease could be indicated at eGFR's of less than 60 mL/min/1.73m2. Kidney failure is indicated at less than 15 mL/min/1.73m2. Performed By: #### 2 [id number] #### [facility] [address] [place] [address] Consultation Noteon 02-09-20 Consultation Note [id number]#1 [address] [facility] ED Note-Physicianon 01-28-20 ED Note-Physician Basic Information Time Seen: Cassi HILLMAN Viky N 01/26/2023 15:31 Chief Complaint pt states migraine [...] Information Linnea HACKETT In [address] [place] [address]- Business (1) Additional Instructions: Patient Education Migraine Headache Attestation Patient was treated and evaluated by the Physician Bookmobile Driver. The attending physician was in the Emergency [...] puff(s), Inhalation, (more content not included)... Normal [facility] Comment on above: Result Comment: Elec tronically Signed By: Viky Ye PA-C\.br\Date and Time Signed: 01/27/23 00:43 EST\.br\Electronically Co-Signed By: Cliff Gusman DO\.br\Date and Time Co-Signed: 01/27/23 06:39 EST Pathology Noteon 01-27-2023 Pathology Note [id number]#[address] [facility] Pathology Reporton 3 Pathology Report [id number]# 1.00TIFF Normal [facility] CT Head or Brain w/o Contras [...] Nguyễn MD, V. Transcribed by: MIRIAM Technologist: [facility] Normal [facility] Consent for Treatmenton 01-11 Consent for Treatment [id number]#1 .00TIFF [facility] Discharge Instructionson Discharge Instructions [id number]# 1.00TIFF Normal [facility] ED Clinical Summaryon 2022 ED Clinical Summary [place] [id number] ED Clinical Summary Person Information Name: ADINA MARTINEZ [facility] Age: 28 Years : 1995 Sex: Female Language: Thai PCP: Linnea HACKETT PA-C Marital Status: Single [...] 01/26/2023 18:22:10 01/26/2023 18:22:10 01/26/2023 18:22:10 ADDRESS: [address] [place] [phone] PHYS DOC NOTES: MEDICAL INFORMATION: Prescriptions Given: [...] Address: When: Linnea HACKETT [address] [place] [address] Business (1) In 3 days DIAGNOSIS: 1:Migraine headache Normal [facility] ED Patient Education Noteon 01-26-2023 ED [...] these instructions at home: Medicines ? Take vqbf-fsp-sevaudx and prescription medicines only as told by your health care provider. ? Ask your health care provider if the medicine prescribed to you: ? Requires you to avoid driving or using heavy machinery. ? Can cause constipation. You may need to take these actions to prevent or treat constipation: ? Drink enough fluid to keep your urine pale yellow. ? Take xjli-hul-rhzifys or prescription medicines. ? Eat foods that [...] different or (more content not included)... Normal [facility] ED Patient Summaryon 023 ED Patient Summary [address] [address] Patient Discharge Instructions Person Information Name: ADINA MARTINEZ Age: 28 Years Arrival Date: 01/26/2023 14:45:24 Discharge Diagnosis: 1:Migraine headache Primary Care Physician: ROXANN HILLMAN, Linnea Herndon Provider Information Primary Provider: Cliff Gusman DO Advanced Three Dimensional Map Modeler:Viky Ye PA-C The exam and treatment you received in the Emergency Department were for an urgent problem and are not intended as complete care. It is important that you follow up with a doctor, nurse practitioner, or physician?s assistant activities director for ongoing care. If your symptoms become [...] Address: When: Linnea HACKETT [address] [place] [phone] Business (1) In 3 days In the event that this physician does not participate in your insurance network, please consult with your insurance company to find a nearby participating provider. Patient Education Materials: Migraine Headache A MESSAGE TO ALL PATIENTS REGARDING OPIOIDS PRESCRIPTION OPIOIDS: WHAT YOU NEED TO KNOW Prescription opioids can be used to help relieve oagnsppy-fv-lmszzv pain and are often prescribed following a [...] be struggling with addiction, tell your health health care facilities inspector and ask for guidance or call [employer]?S National Helpline at 4-249-649-RUMG. v Source: [place] D (more content not included)... Normal [facility] Pathology Noteon 01-18-2023 Pathology Note [id number]#[address] [facility] Pathology Reporton Pathology Report [id number]#[address] [facility] Pathology Noteon 01-13-2023 Pathology Note [id number]#[address] [facility] Pathology Noteon 01-12-2023 Pathology Note [id number]#[address] [facility] Pathology Reporton Pathology Report [id number]# 1.00TIFF Normal [facility] CHEMISTRYOrdered By: SYSTEM SYSTEM on 01-05-2023 Free T4 [Mass/Vol] 1.13 ng/dL Normal 0.58 - 1. 64 ng/dL [facility] Remisol TSH Qn 0.01 m[IU]/L Low 0.34 - 5.60 mcIU/mL [facility] Remisol Consent for Treatmenton 12-12 Consent for Treatment [id number]#[address] [facility] Free T4on 01-05-2023 Free T4 [Mass/Vol] 1.13 ng/dL Normal 0.58-1.64 [facility] Comment on above: Order Comment: Free T4 added by Discern Rule due to a TSH result of <0.34 or >5.60. Performed By: #### 2 [id number], [id number] ####[facility] [address] [place] [address] Physician Orderon 01-05-2023 Physician Order [id number]# 1.00TIFF Normal [facility] TSH With T4fr Reflexon 01-05 TSH Qn 0.01 m[IU]/L Low 0.34-5.60 [facility] Comment on above: Performed By: #### 2 [id number], [id number] ####[facility] [address] [place] [address] Ambulatory Visit Summaryon 1 Ambulatory Visit Summary ADINA MARTINEZ :1995 Visit Date:12/30/2022 Ambulatory Visit Instructions Your [...] PCOS (polycystic ovarian syndrome) Periumbilical mass Normal [facility] General Surgery Office/Clini c Noteon 12-30-2022 General Surgery Office/Clinic Note Chief Complaint post operative follow up HPI Staff 8 day post operative follow up post excisional biopsy right abdominal wall lipoma. Denies discomfort, bleeding or drainage. History of Present Illness 8 day s/p excisional biopsy of nodule right abd wall; no pain now, no drainage from incision. pathology sent out to [facility], still pending. Review of Systems ROS - [...] follow-up visit, related to the original procedure [id number] Follow-up No qualifying data available Problem List/Past [...] Recorded SARS-CoV-2 (COVID-19) mRNA-1273 vaccine 03/20/2020 Recorded [facility] Comment on above: Result Comment: Elec tronically Signed By: CITLALI VELASQUEZ, Gabe Monte\Date and Time Signed: 12/30/22 16:32 EDT IntraOperative Documentson 1 IntraOperative Documents [id number]# 1.00TIFF [facility] Prescriptions/Work Noteson 1 Prescriptions/Work Notes [id number]#1 .00TIFF [facility] Auto Diffon 12-26-2022 Basophils/100 WBC (Bld) 0.9 % Normal 0.0-2.0 [facility] Comment on above: Order Comment: Order Added by Discern Expert. Performed By: #### 2 [id number], [id number] #### [facility] [address] [place] [address]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 Instruction [place] [id number] Patient Discharge Instructions PERSON INFORMATION Name: ANJURANJITHSONY VICTOR Date of : 1995 Current Date: 12/22/2022 [...] THE NEAREST EMERGENCY ROOM OR CALL 911 I, ADINA MARTINEZ, have received the attached patient education materials/instruction s and have verbalized understanding: May we do a follow up call? Yes No I was present when discharge instructions were given Patient Signature Date Clinican/Nurse Signature Date Follow up: With: Address: When: Gabe Alvarado [address], [address], [facility] [address] [id number] [facility] (1) Within 7 to 10 days Pharmacy Information: You may receive a survey from [employer] asking you to rate your care experience. Your feedback is important and will help us understand what we do well and how we can improve the quality of care we provide to you, your loved ones and our community. It?s an honor to serve you. Thank you for choosing [facility] HERE ARE THE MEDICATION CHANGES THAT [...] PCOS PATIENT EDUCATION INFORMATION Instructions: Medication Leaflets: Heather [facility] Patient Education - Texton 1 Patient Education [...] and water are not available, use hand resource forester. ? Change your dressing as told by [...] or a bad smell. Medicines ? Take qnsl-uym-luhnbuj and prescription medicines only as told by [...] provider. Document Revised: 03/18/2022 Document Reviewed: 03/18/2022 [email or web address] Patient Education ? 2022 [email or web address] Normal [facility] Consent for Procedure/Surger yon 12-13-2022 Consent for Procedure/Surgery [id number]# 1.00CD:[address] [facility] CBC w/Indiceson 12-12-2022 Erythrocyte distribution width (RBC) [Ratio] 13.1 % Normal 10.9-14.2 [facility] Comment on above: Performed By: #### 2 [id number] ####[facility] [place] [address] Hematocrit (Bld) [Volume fraction] 35.8 % Normal 34.0-46.0 [facility] Comment on above: Performed By: #### 2 [id number] ####[address] [address] Hemoglobin (Bld) [Mass/Vol] 12.3 g/dL Normal 12.0-16.0 [facility] Comment on above: Performed By: #### 2 [id number] ####[address] [address] MCH (RBC) [Entitic mass] 29.2 pg Normal 27.0-34.0 [facility] Comment on above: Performed By: #### 2 [id number] ####[address] [address] MCHC (RBC) [Mass/Vol] 34.5 g/dL Normal 31.4-36.0 [facility] Comment on above: Performed By: #### 2 [id number] ####[address] [address] MCV (RBC) [Entitic vol] 84.7 fL Normal 80.0-100.0 [facility] Comment on above: Performed By: #### 2 [id number] ####[address] [address] Platelet mean volume (Bld) [Entitic vol] 8.7 fL Normal 6.4-10.8 [facility] Comment on above: Performed By: #### 2 [id number] ####[address] [address] Platelets (Bld) [#/Vol] 273.0 E9/L Normal 150.0-500.0 [facility] Comment on above: Performed By: #### 2 [id number] ####[address] [address] RBC (Bld) [#/Vol] 4.2 E12/L Low 4.3-5.9 [facility] Comment on above: Performed By: #### 2 [id number] ####[facility] [address] [place] [address] WBC corrected for nucl RBC Auto (Bld) [#/Vol] 5.6 E9/L Normal 4.0-11.0 [facility] Comment on above: Performed By: #### 2 [id number] ####[facility] [address] [place] [address] Consent for Treatmenton Consent for Treatment [id number] .00CD:[address] [facility] U BetaHcg Qualon 12-12-2022 HCG.beta subunit (U) [Moles/Vol] Negative Normal [facility] Comment on above: Performed By: #### 2 [id number] #### [facility] [address] [place] [address] Ambulatory Visit Summaryon 0 12-09-2022 Ambulatory Visit [...] Follow-Up Appointments Monday 2:30 PM EDT Where: [facility] 2022 9:00 AM EDT Where: [facility] Medications What How Much When [...] abdominal pain Migraines Morbid obesity Periumbilical mass [facility] Consent for Procedure/Surger yon 12-09-2022 Consent for Procedure/Surgery [id number] .00CD:127 [facility] Provider Letteron 12-09-2022 Provider Letter December 09, 2022 ADINA MARTINEZ [address] [place] [id number] : 1995 To Whom It May Concern, Please excuse above patient from work 12/22/2022-12/25/2022 . May return to work without restrictions 12/26/2022. Sincerely, Dr. Gabe Godwin MD [facility] ED Note-Physicianon 11-26-19 23 ED Note-Physician [id number]#1 .00CD:127 [facility] Physician Referralon 023 Physician Referral [id number]#1 .00CD:127 [facility] RAD - CT Reporton 11-25-2022 RAD - CT Report [id number]#1. 00CD:127 [facility] CHEMISTRYOrdered By: SYSTEM SYSTEM on 10-13-2022 Free T4 [Mass/Vol] 1.06 [...] (COVID-19) RNA KAITLIN+probe Ql (Unsp spec) Negative [employer] Other COVID/FLU RT-PCR Negative TRA [facility] [employer] Other CHEMISTRYOrdered By: SYSTEM SYSTEM on 02-08-2022 [...] Normal >=59mL/min/ 1.73 m2 [facility] Chem S Glucose [Mass/Vol] 102 mg/dL Normal 55 - 199 mg/dL [facility] Remisol Potassium [Moles/Vol] 3.6 mmol/L Normal 3.5 - 5.3 mmol/L [facility] Remisol Sodium [Moles/Vol] 137 mmol/L Normal 135 - 145 mmol/L [facility] Remisol TSH Qn 1.71 m[IU]/L Normal 0.34 - 5.60 mcIU/mL [facility] Rem[facility] Urea nitrogen [Mass/Vol] 15 mg/dL Normal 5 - 21 mg/dL [facility] Remisol Urea nitrogen/Creatinine [Mass ratio] 19 mg/mg Normal 10 - 20 [facility] Remisol HEMATOLOGYOrdered By: SYSTEM SYSTEM on 01-04-2022 [...] 30.2 % Normal 14.0 - 50.0 % [facility] HemeAutoSS Lymphocytes/Leukocytes Auto (Bld) [Pure # fraction] 2.7 E9/L Normal 1.0 - 4.0 E9/L [facility] HemeAutoSS Monocytes/100 WBC (Bld) 6.7 % Normal 4.0 - 14.0 % [facility] HemeAutoSS Monocytes/Leukocytes Auto (Bld) [Pure # fraction] 0.6 E9/L Normal 0.2 - 1.0 E9/L [facility] HemeAutoSS Neutrophils/100 WBC (Bld) 61.8 % Normal 36.0 - 75.0 % [facility] HemeAutoSS Neutrophils/Leukocytes Auto (Bld) [Pure # fraction] 5.5 E9/L Normal 2.0 - 7.5 E9/L [facility] HemeAutoSS HEMATOLOGYOrdered By: Nuvia Emerson on 01-04-2022 Erythrocyte distribution width (RBC) [Ratio] 15.0 % High 10.9 - 14.2 % [facility] HemeAutoSS Hematocrit (Bld) [Volume fraction] 36.2 % Normal 34.0 - 46.0 % [facility] HemeAutoSS Hemoglobin (Bld) [Mass/Vol] 11.9 g/dL Low 12.0 - 16.0 gm/dL [facility] HemeAutoSS MCH (RBC) [Entitic mass] 27.6 pg Normal 27.0 - 34.0 pg [facility] HemeAutoSS MCHC (RBC) [Mass/Vol] 32.9 g/dL Normal 31.4 - 36.0 gm/dL [facility] HemeAutoSS MCV (RBC) [Entitic vol] 83.9 fL Normal 80.0 - 100.0 fL [facility] HemeAutoSS Platelet mean volume (Bld) [Entitic vol] 8.8 fL Normal 6.4 - 10.8 fL [facility] HemeAutoSS Platelets (Bld) [#/Vol] 286.0 E9/L Normal 150. 0 - 500.0 E9/L [facility] HemeAutoSS RBC (Bld) [#/Vol] 4.3 E12/L Normal 4.3 - 5.9 E12/L [facility] HemeAutoSS WBC corrected for nucl RBC Auto (Bld) [#/Vol] 8.9 E9/L Normal 4.0 - 11.0 E9/L [facility] HemeAutoSS CHEMISTRYOrdered By: SYSTEM SYSTEM on 11-26-2021 Anion gap [Moles/Vol] 13 mmol/L Normal 6 - 16 mEq/L [facility] Remisol Calcium [Mass/Vol] 8.6 mg/dL Low 8.9 [...] rate/Area] mL/min/1.73 m2 Normal >=59mL/min/ 1.73 m2 [facility] Chem S Glucose [Mass/Vol] 92 mg/dL Normal 55 - 199 mg/dL [facility] Remisol Potassium [Moles/Vol] 3.1 mmol/L Low 3.5 - 5.3 mmol/L [facility] Remisol Sodium [Moles/Vol] 139 mmol/L Normal 135 - 145 mmol/L [facility] Remisol Troponin I.cardiac [Mass/Vol] pg/mL Low 10.10 - 27.10 pg/mL [facility] Remisol Urea nitrogen [Mass/Vol] 14 mg/dL Normal 5 - 21 mg/dL [facility] Remisol Urea nitrogen/Creatinine [Mass ratio] 18 mg/mg [...] 4.0 E12/L Low 4.3 - 5.9 E12/L [facility] HemeAutoSS WBC corrected for nucl RBC Auto (Bld) [#/Vol] 7.1 E9/L Normal 4.0 - 11.0 E9/L [facility] HemeAutoSS SEROLOGYOrdered By: Mara Judge on 11-26-2021 Beta hCG Ql Negative (11/26/21 6:17 PM) Normal [facility] Man Sero CHEMISTRYOrdered By: SYSTEM SYSTEM on [...] rate/Area] mL/min/1.73 m2 Normal >=59mL/min/ 1.73 m2 [facility] Chem S GFR/1.73 sq M.predicted among non-blacks MDRD (S/P/Bld) [Vol rate/Area] mL/min/1.73 m2 Normal >=59mL/min/ 1.73 m2 [facility] Chem S Glucose [Mass/Vol] 95 mg/dL Normal [...] 4.2 E12/L Low 4.3 - 5.9 E12/L [facility] HemeAutoSS WBC corrected for nucl RBC Auto (Bld) [#/Vol] 5.8 E9/L Normal 4.0 - 11.0 E9/L [facility] HemeAutoSS SARS-CoV-2 (COVID-19) RNA NA A+probe Ql (Resp)on 11-23-2021 SARS-CoV-2 (COVID-19) RNA KAITLIN+probe Ql (Unsp spec) Positive Spotjournal Other Basophils Auto (Bld) [#/Vol] Ordered By: Black Zaidi on 10-29-2021 Basophils (Bld) [#/Vol] 0.1 10*3/uL 0.0-0.2 [facility] Basophils/100 WBC Auto (Bld) Ordered By: Black Zaidi on 10-29-2021 Basophils/100 WBC (Bld) 0.8 % . F [facility] Blood hemoglobin measurement (mass/volume)Ordered By: Black Zaidi on 10-29-2021 Hemoglobin (Bld) [Mass/Vol] 11.7 g/dL 11.8-15.4 [facility] Blood leukocytes automated c ount (number/volume)Ordered By: Black Zaidi on 10-29-2021 WBC (Bld) [#/Vol] 6.7 10*3/uL 4.5-11.0 [facility] Body fluid albumin measureme nt (mass/volume)Ordered By: Black Zaidi on 10-29-2021 Albumin (Body fld) [Mass/Vol] 3.8 g/dL 3.2-5.5 [facility] Cholesterol [Mass/volume] in Serum or PlasmaOrdered By: Black Zaidi on 10-29-2021 Cholesterol [Mass/Vol] 153 mg/dL 140-200 [facility] Comment on above: Chol less than 200 m g/dl low risk Chol 201-239 mg/dl borderline risk Chol 240 mg/dl and greater high risk Cholesterol in LDL Calc [Mas s/Vol]Ordered By: Black Zaidi on 10-29-2021 Cholesterol in LDL [Mass/Vol] 99 mg/dL 0-100 [facility] Comment on above: LDL ATP III CLASSIFI CATION LDL less than 100 mg/dL Optimal LDL 100-129 mg/dL Near or above optimal LDL 130-159 mg/dL Borderline high LDL 160-189 mg/dL High LDL greater than 189 mg/dL Very high Cholesterol in VLDL Calc [Ma ss/Vol]Ordered By: Black Zaidi on 10-29-2021 Cholesterol in VLDL [Mass/Vol] 14 mg/dL [facility] Creatinine and Glomerular fi ltration rate.predicted panel (S/P/Bld)Ordered By: Black Zaidi on 10-29-2021 Creatinine [Mass/Vol] 0.78 mg/dL 0.44-1.03 [facility] Eosinophils Auto (Bld) [#/Vo l]Ordered By: Black Zaidi on 10-29-2021 Eosinophils (Bld) [#/Vol] 0.1 10*3/uL 0.0-0.45 [facility] Eosinophils/100 WBC Auto (Bl d)Ordered By: Black Zaidi on 10-29-2021 Eosinophils/100 WBC (Bld) 1.8 % . [facility] Erythrocyte distribution wid th Auto (RBC) [Ratio]Ordered By: Black Zaidi on 10-29-2021 Erythrocyte distribution width (RBC) [Ratio] 15.9 % 11.9-15.3 [facility] Estimated glomerular filtrat ion rate (GFR) non- AmericanOrdered By: Black Zaidi on 10-29-2021 GFR/1.73 sq M.predicted among non-blacks MDRD (S/P/Bld) [Vol rate/Area] > 60 mL/Min [facility] Globulin Calc (S) [Mass/Vol] Ordered By: Black Zaidi on 10-29-2021 Globulin (S) [Mass/Vol] 2.7 g/dL [facility] Hematocrit Auto (Bld) [Volum e fraction]Ordered By: Black Zaidi on 10-29-2021 Hematocrit (Bld) [Volume fraction] 35.9 % 34.0-46.4 [facility] Laboratory - Chemistry and C hemistry - challengeOrdered By: Black Zaidi on 10-29-2021 Glucose [Mass/Vol] 92 mg/dL 70-100 [facility] Laboratory - Hematology and Cell countsOrdered By: Black Zaidi on 10-29-2021 Nucleated RBC/100 WBC (Bld) [Ratio] 0.1 % 0-0.5 [facility] Lymphocytes Auto (Bld) [#/Vo l]Ordered By: Black Zaidi on 10-29-2021 Lymphocytes (Bld) [#/Vol] 2.1 10*3/uL 1.00-4.8 [facility] Lymphocytes/100 WBC Auto (Bl d)Ordered By: Black Zaidi on 10-29-2021 Lymphocytes/100 WBC (Bld) 31.6 % . [facility] MCH Auto (RBC) [Entitic mass ]Ordered By: Black Zaidi on 10-29-2021 MCH (RBC) [Entitic mass] 27.4 pg 24.7-34.3 [facility] MCHC Auto (RBC) [Mass/Vol]Or dered By: Black Zaidi on 10-29-2021 MCHC (RBC) [Mass/Vol] 32.5 g/dL 32.0-35.0 [facility] MCV Auto (RBC) [Entitic vol] Ordered By: Black Zaidi on 10-29-2021 MCV (RBC) [Entitic vol] 84.3 fL 80-100 [facility] Monocyte %Ordered By: Black Zaidi on 10-29-2021 Monocyte % 72 mg/dL 35-149 [facility] Comment on above: TRIG ATP III CLASSIF ICATION TRIG less than 150 mg/dL Normal TRIG 150-199 mg/dL Borderline high TRIG 200-500 mg/dL High TRIG greater than 500 mg/dL Very high Standard traceable to the Center for Disease Conrtrol and Prevention (CDC) test method. Monocytes Auto (Bld) [#/Vol] Ordered By: Black Zaidi on 10-29-2021 Monocytes (Bld) [#/Vol] 0.4 10*3/uL 0.0-0.8 [facility] Monocytes/100 WBC Auto (Bld) Ordered By: Black Zaidi on 10-29-2021 Monocytes/100 WBC (Bld) 6.4 % . [facility] Neutrophils Auto (Bld) [#/Vo l]Ordered By: Black Zaidi on 10-29-2021 Neutrophils (Bld) [#/Vol] 4.0 10*3/uL 1.8-7.7 [facility] Neutrophils/100 WBC Auto (Bl d)Ordered By: Black Zaidi on 10-29-2021 Neutrophils/100 WBC (Bld) 59.4 % . [facility] No Panel InformationOrdered By: Black Zaidi on 10-29-2021 Estimated GFR () > 60 mL/Min [facility] Comment on above: GFR estimated refere nce range: According to KDOQI guidelines, <60 ml/min/1.73m2 is sufficient to diagnose a patient with chronic kidney disease. Nicotine Metabolite Negative Cutoff=[address] [facility] Comment on above: Performed at: [address] [id number] [employer]: Chucky Marie MD, Phone: [phone] Pharmacy Creatinine Clearance (Chem N/A [facility] Platelet mean volume Auto (B ld) [Entitic vol]Ordered By: Black Zaidi on 10-29-2021 Platelet mean volume (Bld) [Entitic vol] 8.9 fL 6.3-10.7 [facility] Platelets Auto (Bld) [#/Vol] Ordered By: Black Zaidi on 08-19-2022 Platelets (Bld) [#/Vol] 320 10*3/uL 150-450 [facility] Protein [Mass/volume] in Ser um or PlasmaOrdered By: Black Zaidi on 10-29-2021 Protein [Mass/Vol] 6.5 g/dL 6.1-7.9 [facility] RBC Auto (Bld) [#/Vol]Ordere d By: Black Zaidi on 10-29-2021 RBC (Bld) [#/Vol] 4.26 10*6/uL 3.60-5.[address] [facility] Serum or plasma alanine ellis otransferase measurement without P-5'-P (enzymatic activiOrdered By: Black Zaidi on 10-29-2021 ALT No additional P-5'-P [Catalytic activity/Vol] 20 U/L 10-60 [facility] Serum or plasma albumin/glob ulin mass ratioOrdered By: Black Zaidi on 10-29-2021 Albumin/Globulin [Mass ratio] 1.4 {ratio} [facility] Serum or plasma alkaline niru sphatase measurement (enzymatic activity/volume)Ordered By: Black Zaidi on 10-29-2021 ALP [Catalytic activity/Vol] 64 U/L 32-92 [facility] Serum or plasma aspartate am inotransferase measurement (enzymatic activity/volume)Ordered By: Black Zaidi on 10-29-2021 AST [Catalytic activity/Vol] 20 U/L 10-42 [facility] Serum or plasma calcium ian urement (mass/volume)Ordered By: Black Zaidi on 10-29-2021 Calcium [Mass/Vol] 9.4 mg/dL 8.2-10.2 [facility] Serum or plasma chloride harika surement (moles/volume)Ordered By: Black Zaidi on 10-29-2021 Chloride [Moles/Vol] 104 mmol/L 95-114 [facility] Serum or plasma high density lipoprotein (HDL) cholesterol measurementOrdered By: Black Zaidi on 10-29-2021 Cholesterol in HDL [Mass/Vol] 40 mg/dL 35-85 [facility] Comment on above: HDL CHOL ATP-III CLA SSIFICATION Cardiovascular Risk HDL > or equal to 60 mg/dL LOW HDL < 40 mg/dL HIGH Serum or plasma potassium me asurement (moles/volume)Ordered By: Black Zaidi on 10-29-2021 Potassium [Moles/Vol] 4.2 mmol/L 3.5-5.1 [facility] Serum or plasma sodium measu rement (moles/volume)Ordered By: Black Zaidi on 10-29-2021 Sodium [Moles/Vol] 137 mmol/L 136-146 [facility] Serum or plasma total biliru bin measurement (mass/volume)Ordered By: Black Zaidi on 10-29-2021 Bilirubin [Mass/Vol] 0.3 mg/dL 0.3-1.2 [facility] Serum or plasma total carbon dioxide measurement (moles/volume)Ordered By: Black Zaidi on 10-29-2021 CO2 [Moles/Vol] 22.5 mmol/L 22.0-30.[address] [facility] Serum or plasma total choles terol/high density lipoprotein (HDL) cholesterol mass ratOrdered By: Black Zaidi on 10-29-2021 Cholesterol.total/Ioana sterol in HDL [Mass ratio] 3.8 {ratio} <5.0 [facility] Serum or plasma urea nitroge n measurement (mass/volume)Ordered By: Black Zaidi on 10-29-2021 Urea nitrogen [Mass/Vol] 10 mg/dL 9-23 [facility] TSH DL <= 0.005 mIU/L QnOrde red By: Black Zaidi on 10-29-2021 TSH Qn 6.15 m[IU]/L 0.45-5.33 [facility] Free T4on 07-08-2021 Free T4 [Mass/Vol] 0.95 ng/dL Normal 0.80-1.80 Nell donnelly [place] [employer] Comment on above: Performed By: #### F T4, TSH reflex FT4 #### [facility] [address] [facility] [place], [place] [id number] TSH w/ Reflex to Free T4on 0 07-08-2021 FT4 reflex Free T4 Normal [facility] [employer] Comment on above: Performed By: #### F T4, TSH reflex FT4 #### [facility] [address] [place], [place] [id number] TSH 4.690 uIU/mL High 0.400-4.500 [facility] io [employer] Comment on above: Performed By: #### F T4, TSH reflex FT4 #### [facility] [address] [place], [place] [id number] US PELVIS AND TRANSVAGon US PELVIS AND [...] by: RICK OVIEDO Date: 2020-11-12 13:48 Normal [facility] Vital Signs Date Time Vital Sign Value Performing Clinician Facility 10-24-2024 12:20-0400 Body height 172.7 cm Linnea WEBSTER Work Phone: [facility] 10-24-2024 12:20-0400 Body mass index (BMI) [Ratio] 43.09 kg/m2 Linnea WEBSTER Work Phone: [facility] 10-24-2024 12:20-0400 Body temperature 98.1 [degF] Linnea WEBSTER Work Phone: [facility] 10-24-2024 12:20-0400 Body weight 128.55 kg Linnea WEBSTER Work Phone: [facility] 10-24-2024 12:20-0400 Diastolic blood pressure 80 mm[Hg] Linnea Hackett PA Work Phone: [facility] 10-24-2024 12:20-0400 Heart rate 66 /min Linnea Hackett PA Work Phone: [facility] 10-24-2024 12:20-0400 SaO2% (BldA) [Mass fraction] 99 % Linnea Hackett PA Work Phone: [facility] 10-24-2024 12:20-0400 Systolic blood pressure 124 mm[Hg] Linnea Hackett PA Work Phone: [facility] 10-23-2024 15:19-0400 Body mass index (BMI) [Ratio] 43.14 kg/m2 Db Diya DO Work Phone: [facility] 10-23-2024 15:19-0400 Body weight 128.71 kg Db Diya DO Work Phone: [facility] 10-23-2024 15:19-0400 Diastolic blood pressure 70 mm[Hg] Db Diya DO Work Phone: [facility] 10-23-2024 15:19-0400 Systolic blood pressure 108 mm[Hg] Db Diya DO Work Phone: [facility] 10-14-2024 12:05-0400 Body height 172.7 cm Linnea Hackett PA Work Phone: [facility] 10-14-2024 12:05-0400 Body mass index (BMI) [Ratio] 42.42 kg/m2 Linnea Hackett PA Work Phone: [facility] 10-14-2024 12:05-0400 Body temperature 97.7 [degF] Linnea Hackett PA Work Phone: [facility] 10-14-2024 12:05-0400 Body weight 126.55 kg Linnea Hackett PA Work Phone: [facility] 10-14-2024 12:05-0400 Diastolic blood pressure 82 mm[Hg] Linnea Hackett PA Work Phone: [facility] 10-14-2024 12:05-0400 Heart rate 84 /min Linnea Hackett PA Work Phone: [facility] 10-14-2024 12:05-0400 SaO2% (BldA) [Mass fraction] 99 % Linnea Hackett PA Work Phone: [facility] 10-14-2024 12:05-0400 Systolic blood pressure 118 mm[Hg] Linnea Hackett PA Work Phone: [facility] 09-12-2024 08:51-0400 Body height 172.7 cm Quique Vazquez MD Work Phone: [facility] 09-12-2024 08:51-0400 Body mass index (BMI) [Ratio] 42.12 kg/m2 Quique Vazquez MD Work Phone: [facility] 09-12-2024 08:51-0400 Body weight 125.65 kg Quique Vazquez MD Work Phone: [facility] 09-12-2024 08:51-0400 Diastolic blood pressure 72 mm[Hg] Quique Vazquez MD Work Phone: [facility] 09-12-2024 08:51-0400 Heart rate 72 /min Quique Vazquez MD Work Phone: [facility] 09-12-2024 08:51-0400 Systolic blood pressure 132 mm[Hg] Quique Vazquez MD Work Phone: [facility] 08-29-2024 12:05-0400 Diastolic blood pressure 77 mm[Hg] Bobo Parson MD Work Phone: [facility] 08-29-2024 12:05-0400 Heart rate 77 /min Bobo Parson MD Work Phone: [facility] 08-29-2024 12:05-0400 Respiratory rate 16 /min Bobo Parson MD Work Phone: [facility] 08-29-2024 12:05-0400 SaO2% (BldA) [Mass fraction] 99 % Bobo Parson MD Work Phone: [facility] 08-29-2024 12:05-0400 Systolic blood pressure 128 mm[Hg] Bobo Parson MD Work Phone: [facility] 08-29-2024 11:00-0400 Body height 172.7 cm Bobo Parson MD Work Phone: [facility] 08-29-2024 11:00-0400 Body mass index (BMI) [Ratio] 41.66 kg/m2 Bobo Parson MD Work Phone: [facility] 08-29-2024 11:00-0400 Body weight 124.29 kg Bobo Parson MD Work Phone: [facility] 08-28-2024 10:49-0400 SaO2% (BldA) [Mass fraction] 99 % Linnea Hackett PA-C Work Phone: [facility] 07-10-2024 07:44-0400 Body height 172.[address] 07-10-2024 07:44-0400 Body mass index (BMI) [Ratio] 43.49 kg/m2 [address] 07-10-2024 07:44-0400 Body weight 129.[address] 07-10-2024 07:44-0400 Diastolic blood pressure 82 mm[Hg] [address] 07-10-2024 07:44-0400 Systolic blood pressure 114 mm[Hg] [address] 07-08-2024 10:54-0400 Body height 172.7 cm Linnea WEBSTER Work Phone: [facility] 07-08-2024 10:54-0400 Body mass index (BMI) [Ratio] 41.54 kg/m2 Linnea WEBSTER Work Phone: [facility] 07-08-2024 10:54-0400 Body temperature 98.01 [degF] Linnea Hackett PA Work Phone: [facility] 07-08-2024 10:54-0400 Body weight 123.92 kg Linnea Hackett PA Work Phone: [facility] 07-08-2024 10:54-0400 Diastolic blood pressure 82 mm[Hg] Linnea Hackett PA Work Phone: [facility] 07-08-2024 10:54-0400 Heart rate 83 /min Linnea Hackett PA Work Phone: [facility] 07-08-2024 10:54-0400 SaO2% (BldA) [Mass fraction] 98 % Linnea Hackett PA Work Phone: [facility] 07-08-2024 10:54-0400 Systolic blood pressure 124 mm[Hg] Linnea Hackett PA Work Phone: [facility] 05-08-2024 09:42-0500 Diastolic blood pressure 82 mm[Hg] Quique Vazquez MD Work Phone: [facility] 05-08-2024 09:42-0500 Systolic blood pressure 118 mm[Hg] Quique Vazquez MD Work Phone: [facility] 05-08-2024 09:36-0500 Body height 172.7 cm Quique Vazquez MD Work Phone: [facility] 05-08-2024 09:36-0500 Body mass index (BMI) [Ratio] 43.49 kg/m2 Quique Vazquez MD Work Phone: [facility] 05-08-2024 09:36-0500 Body weight 129.73 kg Quique Vazquez MD Work Phone: [facility] 05-08-2024 09:36-0500 Heart rate 79 /min Quique Vazquez MD Work Phone: [facility] 04-16-2024 09:59-0500 Body height 172.7 cm Linnea Hackett PA Work Phone: [facility] 04-16-2024 09:59-0500 Body mass index (BMI) [Ratio] 43.12 kg/m2 Linnea Roxann PA Work Phone: [facility] 04-16-2024 09:59-0500 Body temperature 98.4 [degF] Linnea Roxann PA Work Phone: [facility] 04-16-2024 09:59-0500 Body weight 128.64 kg Linnea Roxann PA Work Phone: [facility] 04-16-2024 09:59-0500 Diastolic blood pressure 78 mm[Hg] Linnea Hackett PA Work Phone: [facility] 04-16-2024 09:59-0500 Heart rate 80 /min Linnea Hackett PA Work Phone: [facility] 04-16-2024 09:59-0500 SaO2% (BldA) [Mass fraction] 99 % Linnea Hackett PA Work Phone: [facility] 04-16-2024 09:59-0500 Systolic blood pressure 114 mm[Hg] Linnea Hackett PA Work Phone: [facility] 01-18-2024 08:17-0500 Body height 172.7 cm Linnea Hackett PA Work Phone: [facility] 01-18-2024 08:17-0500 Body mass index (BMI) [Ratio] 42.06 kg/m2 Linnea Roxann PA Work Phone: [facility] 01-18-2024 08:17-0500 Body temperature 97.7 [degF] Linnea Roxann PA Work Phone: [facility] 01-18-2024 08:17-0500 Body weight 125.47 kg Linnea Hackett PA Work Phone: [facility] 01-18-2024 08:17-0500 Diastolic blood pressure 82 mm[Hg] Linnea Roxann PA Work Phone: [facility] 01-18-2024 08:17-0500 Heart rate 78 /min Linnea Roxann PA Work Phone: [facility] 01-18-2024 08:17-0500 SaO2% (BldA) [Mass fraction] 98 % Linnea Roxann PA Work Phone: [facility] 01-18-2024 08:17-0500 Systolic blood pressure 118 mm[Hg] Linnea Roxann PA Work Phone: [facility] 01-08-2024 11:17-0400 Body height 172.7 cm Linnea Hackett PA Work Phone: [facility] 01-08-2024 11:17-0400 Body mass index (BMI) [Ratio] 42.45 kg/m2 Linnea Hackett PA Work Phone: [facility] 01-08-2024 11:17-0400 Body temperature 98.6 [degF] Linnea Hackett PA Work Phone: [facility] 01-08-2024 11:17-0400 Body weight 126.64 kg Linnea Hackett PA Work Phone: [facility] 01-08-2024 11:17-0400 Diastolic blood pressure 78 mm[Hg] Linnea Roxann PA Work Phone: [facility] 01-08-2024 11:17-0400 Heart rate 87 /min Linnea Roxann PA Work Phone: [facility] 01-08-2024 11:17-0400 SaO2% (BldA) [Mass fraction] 97 % Linnea Roxann PA Work Phone: [facility] 01-08-2024 11:17-0400 Systolic blood pressure 124 mm[Hg] Linnea Roxann PA Work Phone: [facility] 12-06-2023 18:32-0400 Hourly Rounding Cliff Naseem [facility] 12-06-2023 18:31-0400 Diastolic blood pressure 76 mm[Hg] Cliff Naseem [facility] 12-06-2023 18:31-0400 Heart rate 75 /min Cliff Naseem [facility] 12-06-2023 18:31-0400 Mean blood pressure 91 mm[Hg] Cliff Naseem [facility] 12-06-2023 18:31-0400 Respiratory rate 22 /min Cliff Naseem [facility] 12-06-2023 18:31-0400 SaO2% (BldA) [Mass fraction] 99 % Cliff Naseem [facility] 12-06-2023 18:31-0400 Systolic blood pressure 121 mm[Hg] Cliff Naseem [facility] 12-06-2023 17:45-0400 Diastolic blood pressure 76 mm[Hg] Cliff Naseem [facility] 12-06-2023 17:45-0400 Heart rate 83 /min Cliff Naseem [facility] 12-06-2023 17:45-0400 Hourly Rounding Cliff Naseem [facility] 12-06-2023 17:45-0400 Mean blood pressure 90 mm[Hg] Cliff Naseem [facility] 12-06-2023 17:45-0400 Respiratory rate 18 /min Cliff Naseem [facility] 12-06-2023 17:45-0400 SaO2% (BldA) [Mass fraction] 99 % Cliff Naseem [facility] 12-06-2023 17:45-0400 Systolic blood pressure 119 mm[Hg] Cliff Naseem [facility] 12-06-2023 16:45-0400 Diastolic blood pressure 98 mm[Hg] Cliff Naseem [facility] 12-06-2023 16:45-0400 Heart rate 93 /min Cliff Naseem [facility] 12-06-2023 16:45-0400 Hourly Rounding Cliff Naseem [facility] 12-06-2023 16:45-0400 Mean blood pressure 104 mm[Hg] Cliff Naseem [facility] 12-06-2023 16:45-0400 Promise to Return Cliffaudra Gusman [facility] 12-06-2023 16:45-0400 Respiratory rate 16 /min Cliff Naseem [facility] 12-06-2023 16:45-0400 SaO2% (BldA) [Mass fraction] 99 % Cliff Naseem [facility] 12-06-2023 16:45-0400 Systolic blood pressure 116 mm[Hg] Cliff Naseem [facility] 12-06-2023 16:43-0400 Respiratory rate 20 /min Cliff Naseem [facility] 12-06-2023 16:34-0400 Respiratory rate 20 /min Cliff Naseem [facility] 12-06-2023 15:46-0400 Body temperature 97.88 [degF] Cliff Naseem [facility] 12-06-2023 15:46-0400 Heart rate 90 /min Cliff Naseem [facility] 12-06-2023 15:46-0400 Respiratory rate 22 /min Cliff Gusman [facility] 10-13-2023 08:26-0400 Heart rate 116 /min Santos Booker [facility] 10-13-2023 08:26-0400 Respiratory rate 18 /min Santos Booker [facility] 10-13-2023 07:43-0400 Body temperature 98.24 [degF] Santos Booker [facility] 10-13-2023 07:43-0400 Diastolic blood pressure 93 mm[Hg] Santos Booker [facility] 10-13-2023 07:43-0400 Heart rate 116 /min Santos Booker [facility] 10-13-2023 07:43-0400 Respiratory rate 18 /min Santos Booker [facility] 10-13-2023 07:43-0400 SaO2% (BldA) [Mass fraction] 97 % Santos Booker [facility] 10-13-2023 07:43-0400 Systolic blood pressure 146 mm[Hg] Santos Booker [facility] 09-04-2023 07:58-0400 Blood Pressure Location Magdi Ad [facility] 09-04-2023 07:58-0400 Diastolic blood pressure 88 mm[Hg] Magdi Watkinsan [facility] 09-04-2023 07:58-0400 Heart rate 96 /min Didipietro Duong [facility] 09-04-2023 07:58-0400 Respiratory rate 16 /min Magdi Duong [facility] 09-04-2023 07:58-0400 SaO2% (BldA) [Mass fraction] 99 % Magdi Duong [facility] 09-04-2023 07:58-0400 Systolic blood pressure 130 mm[Hg] Magdi Watkinsan [facility] 05-26-2023 01:32-0400 Hourly Rounding Kaylinn Dokken [facility] 05-26-2023 01:32-0400 Promise to Return Kaylinn Dokken [facility] 05-26-2023 01:00-0400 Diastolic blood pressure 85 mm[Hg] Kaylinn Dokken [facility] 05-26-2023 01:00-0400 Heart rate 71 /min Kaylinn Dokken [facility] 05-26-2023 01:00-0400 Respiratory rate 18 /min Kaylinn Dokken [facility] 05-26-2023 01:00-0400 SaO2% (BldA) [Mass fraction] 98 % Kaylinn Dokken [facility] 05-26-2023 01:00-0400 Systolic blood pressure 132 mm[Hg] Kaylinn Dokken [facility] 05-26-2023 00:00-0400 Heart rate 76 /min Kaylinn Dokken [facility] 05-26-2023 00:00-0400 Hourly Rounding Kaylinn Dokken [facility] 05-26-2023 00:00-0400 Promise to Return Kaylinn Dokken [facility] 05-26-2023 00:00-0400 Systolic blood pressure 142 mm[Hg] Kaylinn Dokken [facility] 05-25-2023 23:44-0400 Diastolic blood pressure 90 mm[Hg] Kaylinn Dokken [facility] 05-25-2023 23:44-0400 Heart rate 86 /min Sandraylinn Dokken [facility] 05-25-2023 23:44-0400 Mean blood pressure 110 mm[Hg] Sandraylinn Dokken [facility] 05-25-2023 23:44-0400 Respiratory rate 20 /min Janellinn Dokken [facility] 05-25-2023 23:44-0400 SaO2% (BldA) [Mass fraction] 99 % Janellinn Dokken [facility] 05-25-2023 23:44-0400 Systolic blood pressure 150 mm[Hg] Sandraylinn Dokken [facility] 05-25-2023 22:41-0400 Body temperature 98.06 [degF] Janellinn Dokken [facility] 05-25-2023 22:41-0400 Heart rate 99 /min Janellinn Dokken [facility] 04-06-2023 15:56-0500 Diastolic blood pressure 80 mm[Hg] PA-Subha Hackett Work Phone: [facility] 04-06-2023 15:56-0500 Heart rate 91 /min PADony Hackett Work Phone: [facility] 04-06-2023 15:56-0500 Respiratory rate 16 /min PA-C Linnea Hackett Work Phone: [facility] 04-06-2023 15:56-0500 SaO2% (BldA) [Mass fraction] 96 % PA-C Linnea Hackett Work Phone: [facility] 04-06-2023 15:56-0500 Systolic blood pressure 123 mm[Hg] PA-C Linnea Hackett Work Phone: [facility] 04-06-2023 15:06-0500 Body temperature 98 [degF] PA-C Linnea Hackett Work Phone: [facility] 04-06-2023 14:31-0500 Inhaled oxygen flow rate 10 L/min PA-C Linnea Hackett Work Phone: [facility] 04-06-2023 12:40-0500 Body height 172.72 cm PA-C Linnea Hackett Work Phone: [facility] 04-06-2023 12:40-0500 Body mass index (BMI) [Ratio] 41.2 kg/m2 PA-C Linnea Hackett Work Phone: [facility] 04-06-2023 12:40-0500 Body weight 123 kg PA-C Linnea Hackett Work Phone: [facility] 02-14-2023 06:30-0500 Diastolic blood pressure 74 mm[Hg] Héctor Meghan [facility] 02-14-2023 06:30-0500 Heart rate 69 /min Héctor Meghan [facility] 02-14-2023 06:30-0500 Mean blood pressure 91 mm[Hg] Héctor Meghan [facility] 02-14-2023 06:30-0500 SaO2% (BldA) [Mass fraction] 98 % Héctor Meghan [facility] 02-14-2023 06:30-0500 Systolic blood pressure 126 mm[Hg] Héctor Meghan [facility] 02-14-2023 06:00-0500 Diastolic blood pressure 83 mm[Hg] Héctor Meghan [facility] 02-14-2023 06:00-0500 Heart rate 68 /min Héctor Meghan [facility] 02-14-2023 06:00-0500 Mean blood pressure 99 mm[Hg] Héctor Meghan [facility] 02-14-2023 06:00-0500 SaO2% (BldA) [Mass fraction] 100 % Héctor Meghan [facility] 02-14-2023 06:00-0500 Systolic blood pressure 132 mm[Hg] Héctor Meghan [facility] 02-14-2023 05:00-0500 Diastolic blood pressure 76 mm[Hg] Héctor Meghan [facility] 02-14-2023 05:00-0500 Heart rate 85 /min Héctor Meghan [facility] 02-14-2023 05:00-0500 Mean blood pressure 90 mm[Hg] Héctor Meghan [facility] 02-14-2023 05:00-0500 Respiratory rate 17 /min Héctor Meghan [facility] 02-14-2023 05:00-0500 Systolic blood pressure 118 mm[Hg] Héctor Meghan [facility] 02-14-2023 02:30-0500 Body temperature 98.78 [degF] Héctor Meghan [facility] 02-14-2023 02:30-0500 Heart rate 94 /min Héctor Christianson [facility] 02-14-2023 02:30-0500 Respiratory rate 16 /min Héctor Christianson [facility] 02-03-2023 07:56-0500 Body height 169.9 cm Jacqueline Sharma MD Work Phone: [facility] 02-03-2023 07:56-0500 Body temperature 96.8 [degF] Jacqueline Sharma MD Work Phone: [facility] 02-03-2023 07:56-0500 Body weight 118.62 kg Jacqueline Sharma MD Work Phone: [facility] 02-03-2023 07:56-0500 Diastolic blood pressure 78 mm[Hg] Jacqueline Sharma MD Work Phone: [facility] 02-03-2023 07:56-0500 Heart rate 111 /min Jacqueline Sharma MD Work Phone: [facility] 02-03-2023 07:56-0500 Respiratory rate 20 /min Jacqueline Sharma MD Work Phone: [facility] 02-03-2023 07:56-0500 SaO2% (BldA) [Mass fraction] 98 % Jacqueline Sharma MD Work Phone: [facility] 02-03-2023 07:56-0500 Systolic blood pressure 145 mm[Hg] Jacqueline Sharma MD Work Phone: [facility] 12-26-2022 18:04-0400 Diastolic blood pressure 95 mm[Hg] Santos Booker [facility] 12-26-2022 18:04-0400 Heart rate 112 /min Santos Booker [facility] 12-26-2022 18:04-0400 Mean blood pressure 111 mm[Hg] Santos Jhony [facility] 12-26-2022 18:04-0400 Respiratory rate 18 /min Santos Jhony [facility] 12-26-2022 18:04-0400 SaO2% (BldA) [Mass fraction] 99 % Santos Jhony [facility] 12-26-2022 18:04-0400 Systolic blood pressure 144 mm[Hg] Santos Jhony [facility] 12-26-2022 17:42-0400 Diastolic blood pressure 96 mm[Hg] Santos Jhony [facility] 12-26-2022 17:42-0400 Heart rate 106 /min Santos Jhony [facility] 12-26-2022 17:42-0400 Mean blood pressure 112 mm[Hg] Santos Jhony [facility] 12-26-2022 17:42-0400 Respiratory rate 18 /min Santos Jhony [facility] 12-26-2022 17:42-0400 SaO2% (BldA) [Mass fraction] 99 % Santos Jhony [facility] 12-26-2022 17:42-0400 Systolic blood pressure 144 mm[Hg] Santos Jhony [facility] 12-26-2022 16:56-0400 Diastolic blood pressure 96 mm[Hg] Santos Jhony [facility] 12-26-2022 16:56-0400 Heart rate 105 /min Santos Jhony [facility] 12-26-2022 16:56-0400 Mean blood pressure 111 mm[Hg] Santos Jhony [facility] 12-26-2022 16:56-0400 Respiratory rate 18 /min Santos Booker [facility] 12-26-2022 16:56-0400 SaO2% (BldA) [Mass fraction] 100 % Santos Booker [facility] 12-26-2022 16:56-0400 Systolic blood pressure 140 mm[Hg] Santos Booker [facility] 12-26-2022 14:52-0400 Body temperature 98.06 [degF] Santos Booker [facility] 12-26-2022 14:52-0400 Heart rate 135 /min Santos Booker [facility] 12-26-2022 14:52-0400 Respiratory rate 20 /min Santos Booker [facility] 12-09-2022 09:29-0400 Blood Pressure Location Gabe NILL [facility] [place] 12-09-2022 09:29-0400 Diastolic blood pressure 85 mm[Hg] Gabe NILL [facility] [place] 12-09-2022 09:29-0400 Heart rate 89 /min Gabe NILL [facility] [place] 12-09-2022 09:29-0400 Respiratory rate 16 /min Gabe NILL [facility] [place] 12-09-2022 09:29-0400 Systolic blood pressure 121 mm[Hg] Gabe NILL [facility] [place] 10-14-2022 16:30-0400 Body temperature 97.88 [degF] Cliff Gusman [facility] 10-14-2022 16:30-0400 Diastolic blood pressure 102 mm[Hg] Cliff Gusman [facility] 10-14-2022 16:30-0400 Heart rate 106 /min Cliff Gusman [facility] 10-14-2022 16:30-0400 Mean blood pressure 119 mm[Hg] Cliff Gusman [facility] 10-14-2022 16:30-0400 Respiratory rate 18 /min Cliff Gusman [facility] 10-14-2022 16:30-0400 SaO2% (BldA) [Mass fraction] 100 % Cliff Gusman [facility] 10-14-2022 16:30-0400 Systolic blood pressure 153 mm[Hg] Cliff Gusman [facility] 03-22-2022 12:00-0500 Body height 172.72 cm Faby Gusman Other [facility] Other 03-22-2022 12:00-0500 Body mass index (BMI) [Ratio] 41.05 kg/m2 Faby Gusman Other [facility] Other 03-22-2022 12:00-0500 Body temperature 98.5 [degF] Faby Gusman Other [facility] Other 03-22-2022 12:00-0500 Body weight 122.47 kg Faby Gusman Other [facility] Other 03-22-2022 12:00-0500 Diastolic blood pressure 76 mm[Hg] Faby Gusman Other [facility] Other 01-10-2023 12:00-0500 Respiratory rate 20 /min Faby Gusman Other [facility] Other 03-22-2022 12:00-0500 SaO2% (BldA) [Mass fraction] 99 % Faby Gusman Other [facility] Other 03-22-2022 12:00-0500 Systolic blood pressure 119 mm[Hg] Faby Gusman Other [facility] Other 02-22-2022 15:41-0500 Blood Pressure Location Leonardo Bates [facility] 02-22-2022 15:41-0500 Diastolic blood pressure 86 mm[Hg] Leonardo Bates [facility] 02-22-2022 15:41-0500 Heart rate 79 /min Leonardo Bates [facility] 02-22-2022 15:41-0500 Respiratory rate 18 /min Leonardo Bates [facility] 02-22-2022 15:41-0500 SaO2% (BldA) [Mass fraction] 100 % Leonardo Bates [facility] 02-22-2022 15:41-0500 Systolic blood pressure 128 mm[Hg] Leonardo Bates [facility] 01-04-2022 14:00-0400 Hourly Rounding Héctor Meghan [facility] 01-04-2022 14:00-0400 Promise to Return Héctor Meghan [facility] 01-04-2022 02:44-0400 Diastolic blood pressure 80 mm[Hg] Héctor Meghan [facility] 01-04-2022 02:44-0400 Heart rate 71 /min Héctor Meghan [facility] 01-04-2022 02:44-0400 Mean blood pressure 92 mm[Hg] Héctor Meghan [facility] 01-04-2022 02:44-0400 SaO2% (BldA) [Mass fraction] 98 % Héctor Meghan [facility] 01-04-2022 02:44-0400 Systolic blood pressure 117 mm[Hg] Héctor Meghan [facility] 01-04-2022 01:41-0400 Diastolic blood pressure 75 mm[Hg] Héctor Meghan [facility] 01-04-2022 01:41-0400 Heart rate 79 /min Héctor Meghan [facility] 01-04-2022 01:41-0400 Mean blood pressure 89 mm[Hg] Héctor Meghan [facility] 01-04-2022 01:41-0400 SaO2% (BldA) [Mass fraction] 99 % Héctor Meghan [facility] 01-04-2022 01:41-0400 Systolic blood pressure 118 mm[Hg] Héctor Meghan [facility] 01-04-2022 01:00-0400 Hourly Rounding Héctor Meghan [facility] 01-04-2022 01:00-0400 Promise to Return Héctor Meghan [facility] 01-04-2022 00:45-0400 Body temperature 97.52 [degF] Héctor Meghan [facility] 01-04-2022 00:45-0400 Diastolic blood pressure 88 mm[Hg] Héctor Meghan [facility] 01-04-2022 00:45-0400 Heart rate 82 /min Héctor Meghan [facility] 01-04-2022 00:45-0400 Respiratory rate 16 /min Héctor Meghan [facility] 01-04-2022 00:45-0400 SaO2% (BldA) [Mass fraction] 100 % Héctor Meghan [facility] 01-04-2022 00:45-0400 Systolic blood pressure 154 mm[Hg] Héctor Meghan [facility] 11-26-2021 20:34-0400 Diastolic blood pressure 89 mm[Hg] Cliff Naseem [facility] 11-26-2021 20:34-0400 Heart rate 73 /min Cliff Naseem [facility] 11-26-2021 20:34-0400 Respiratory rate 18 /min Cliff Naseem [facility] 11-26-2021 20:34-0400 SaO2% (BldA) [Mass fraction] 100 % Cliff Naseem [facility] 11-26-2021 20:34-0400 Systolic blood pressure 128 mm[Hg] Cliff Naseem [facility] 11-26-2021 19:35-0400 Diastolic blood pressure 84 mm[Hg] Cliff Naseem [facility] 11-26-2021 19:35-0400 Heart rate 72 /min Cliff Naseem [facility] 11-26-2021 19:35-0400 Hourly Rounding Cliff Naseem [facility] 11-26-2021 19:35-0400 Mean blood pressure 99 mm[Hg] Cliff Gusman [facility] 11-26-2021 19:35-0400 Nursing Progress Note Reason Other: Pt back from CT and resting on cart. Denies any needs at this time. Cliff Gusman [facility] 11-26-2021 19:35-0400 Respiratory rate 18 /min Cliff Gusman [facility] 11-26-2021 19:35-0400 SaO2% (BldA) [Mass fraction] 100 % Cliff Gusman [facility] 11-26-2021 19:35-0400 Systolic blood pressure 130 mm[Hg] Cliff Gusman [facility] 11-26-2021 19:08-0400 Diastolic blood pressure 74 mm[Hg] Cliff Gusman [facility] 11-26-2021 19:08-0400 Heart rate 67 /min Cliffaudra Gusman [facility] 11-26-2021 19:08-0400 Mean blood pressure 92 mm[Hg] Cliff Gusman [facility] 11-26-2021 19:08-0400 Respiratory rate 18 /min Cliff Gusman [facility] 11-26-2021 19:08-0400 SaO2% (BldA) [Mass fraction] 97 % Cliff Gusman [facility] 11-26-2021 19:08-0400 Systolic blood pressure 129 mm[Hg] Cliff Naseem [facility] 11-26-2021 18:08-0400 Body temperature 97.88 [degF] Cliff Naseem [facility] 11-26-2021 18:08-0400 Heart rate 82 /min Cliff Naseem [facility] 11-24-2021 23:30-0400 Diastolic blood pressure 61 mm[Hg] Héctor Meghan [facility] 11-24-2021 23:30-0400 Heart rate 71 /min Héctor Meghan [facility] 11-24-2021 23:30-0400 Mean blood pressure 75 mm[Hg] Héctor Meghan [facility] 11-24-2021 23:30-0400 Respiratory rate 22 /min Héctor Meghan [facility] 11-24-2021 23:30-0400 SaO2% (BldA) [Mass fraction] 98 % Héctor Meghan [facility] 11-24-2021 23:30-0400 Systolic blood pressure 104 mm[Hg] Héctor Meghan [facility] 11-24-2021 22:21-0400 Diastolic blood pressure 72 mm[Hg] Héctor Meghan [facility] 11-24-2021 22:21-0400 Heart rate 79 /min Héctor Meghan [facility] 11-24-2021 22:21-0400 Mean blood pressure 86 mm[Hg] Héctor Meghan [facility] 11-24-2021 22:21-0400 Respiratory rate 15 /min Héctor Meghan [facility] 11-24-2021 22:21-0400 SaO2% (BldA) [Mass fraction] 98 % Héctor Meghan [facility] 11-24-2021 22:21-0400 Systolic blood pressure 115 mm[Hg] Héctor Meghan [facility] 11-24-2021 21:32-0400 Body temperature 98.06 [degF] Héctor Meghan [facility] 11-24-2021 21:32-0400 Diastolic blood pressure 94 mm[Hg] Héctor Meghan [facility] 11-24-2021 21:32-0400 Heart rate 86 /min Héctor Meghan [facility] 11-24-2021 21:32-0400 Respiratory rate 28 /min [facility] Meghan [facility] 11-24-2021 21:32-0400 SaO2% (BldA) [Mass fraction] 98 % Héctor Meghan [facility] 11-24-2021 21:32-0400 Systolic blood pressure 124 mm[Hg] [facility] Meghan [facility] Encounters Encounter Date Encounter Type Care Provider Facility Start: 11-05-2024 End: 11-05-2024 Patient encounter procedure Kush Marmolejo MD Work Phone: [facility] Comment on above: Results Start: 11-05-2024 End: 11-05-2024 ambulatory KUSH MARMOLEJO Facility:[facility] Start: 11-05-2024 End: 11-05-2024 Nursing evaluation of patient and report Nurse Emmett Leavitt Work Phone: [facility] Comment on above: Nausea and vomiting, unspecified vomiting type Start: 11-05-2024 End: 11-05-2024 ambulatory KIMBERLY PACK Facility:[facility] Start: 10-31-2024 End: 10-31-2024 ambulatory KIMBERLY PACK Facility:[facility] Start: 10-24-2024 End: 10-24-2024 ambulatory Linnea HACKETT Facility:[facility] Start: 10-24-2024 End: 10-24-2024 Clinisync Result Encounter Linnea Hackett PA Work Phone: [facility] Unsolicited Start: 10-24-2024 End: 10-24-2024 Clinisync Result Encounter Linnea WEBSTER Work Phone: [facility] External Department Unsolicited Start: 10-24-2024 End: 10-24-2024 Office outpatient visit 25 minutes Linnea WEBSTER Work Phone: [facility] Comment on above: Cervical radiculopat hy (Primary Dx) Start: 10-24-2024 End: 10-24-2024 ambulatory LINNEA HACKETT Not Available Start: 10-23-2024 End: 10-23-2024 Patient encounter procedure Db Diya DO Work Phone: [facility] Start: 10-23-2024 End: 10-23-2024 Periodic preventive med est patient 18-39 yrs Db Diya DO Work Phone: [facility] Comment on above: Well woman exam with routine gynecological exam; Encounter for weight management; Weight gain Start: 10-23-2024 End: 10-23-2024 ambulatory DB DIYA Not Available Start: 10-23-2024 End: 10-23-2024 Bamboo flowsheet Db Diya DO Work Phone: [facility] Start: 10-23-2024 End: 10-28-2024 Bamboo flowsheet Db Diya DO Work Phone: [facility] Start: 10-23-2024 End: 10-28-2024 Clinisync Result Encounter Generic External Data Provider [facility] External Department Unsolicited Start: 10-14-2024 End: 10-14-2024 Bamboo flowsheet Linnea WEBSTER Work Phone: [facility] [place] [facility] Start: 10-14-2024 End: 10-14-2024 Bamboo flowsheet Linnea WEBSTER Work Phone: [facility] Start: 10-14-2024 End: 10-14-2024 Patient encounter status Linnea WEBSTER Work Phone: [facility] Work Phone: Start: 10-14-2024 End: 10-14-2024 Periodic preventive med est patient 18-39 yrs Linnea WEBSTER Work Phone: [facility] Comment on above: Preventative health care (Primary Dx) Start: 10-14-2024 End: 10-14-2024 ambulatory LINNEA HACKETT Not Available Start: 10-02-2024 End: 10-02-2024 Departed Referred [employer] Start: 10-02-2024 End: 10-02-2024 ambulatory Linnea Hackett PA-C Work Phone: [facility] Work Phone: Start: 09-30-2024 End: 10-01-2024 ambulatory Kimberly Pack [employer] Work Phone: Gastroenterology Comment on above: Next steps Start: 09-24-2024 End: 09-27-2024 Clinisync Result Encounter Generic External Data Provider [facility] External Department Unsolicited Start: 09-24-2024 End: 09-27-2024 Clinisync Result Encounter Generic External Data Provider [facility] External Department Unsolicited Start: 09-24-2024 ambulatory KIMBERLY PACK Facility:[facility] Start: 09-24-2024 End: 09-24-2024 Subsequent hospital visit by physician [facility] Comment on above: Dyspepsia [R10.13] Start: 09-16-2024 End: 09-16-2024 ambulatory Linnea JOHNSONC Work Phone: [facility] Work Phone: Start: 09-16-2024 End: 09-16-2024 Departed Referred Haily Harris DO -LAB [facility] Start: 09-16-2024 End: 09-16-2024 Clinisync Result Encounter Generic External Data Provider [facility] External Department Unsolicited Start: 09-16-2024 End: 09-16-2024 Clinisync Result Encounter Generic External Data Provider [facility] External Department Unsolicited Start: 09-12-2024 End: 09-12-2024 Office outpatient visit 25 minutes Quique Vazquez MD Work Phone: [facility] Comment on above: POTS (postural ortho static tachycardia syndrome); Postural orthostatic tachycardia syndrome (POTS); Acquired hypothyroidism; Type 2 diabetes mellitus without complication, without long-term current use of insulin; Never smoked tobacco; BMI 40.0-44.9, adult (Multi) Start: 09-12-2024 End: 09-12-2024 ambulatory QUIQUE Harris [facility] Start: 09-03-2024 End: 11-03-2024 Follow-up encounter Bobo Parson MD Work Phone: Ambulatory Surgery Start: 08-29-2024 End: 08-29-2024 Clinisync Result Encounter Generic External Data Provider [facility] External Department Unsolicited Start: 08-29-2024 End: 08-29-2024 Clinisync Result Encounter Generic External Data Provider [facility] External Department Unsolicited Start: 08-29-2024 ambulatory BOBO PARSON Facilit y:[facility] Start: 08-29-2024 End: 08-29-2024 Subsequent hospital visit by physician Bobo Parson MD Work Phone: Ambulatory Surgery Comment on above: Nausea and vomiting, unspecified vomiting type [R11.2] Start: 08-28-2024 End: 08-28-2024 Patient encounter procedure Quique Harris MD [facility] -Electrodiagnostics Work Phone: Start: 08-28-2024 End: 08-28-2024 ambulatory Nidia Hughes Facility:[facility] Start: 08-14-2024 End: 08-14-2024 Patient encounter procedure Linnea Hackett PA-C Work Phone: [facility]-CT [facility] [place] Work Phone: Start: 08-14-2024 End: 08-14-2024 ambulatory Linnea Hackett PA-C Work Phone: [facility] Work Phone: Start: 07-30-2024 End: 07-30-2024 ambulatory KIMBERLY PACK Facility:[facility] Start: 07-10-2024 End: 07-11-2024 Clinisync Result Encounter Generic External Data Provider [facility] External Department Unsolicited Start: 07-10-2024 End: 07-11-2024 Clinisync Result Encounter Generic External Data Provider [facility] External Department Unsolicited Start: 07-10-2024 End: 07-10-2024 Subsequent hospital visit by physician Karo Avina Echo/Vasc Room 2 [facility] Comment on above: Syncope, unspecified syncope type Start: 07-10-2024 End: 07-10-2024 ambulatory [facility] Start: 07-08-2024 End: 07-08-2024 Bamboo flowsheet Linnea WEBSTER Work Phone: [facility] Start: 07-08-2024 [...] 06-21-2024 End: 06-21-2024 Emergency department patient visit LINNEA HACKETT Facility:[facility] Start: 06-21-2024 End: 06-22-2024 Clinisync Result Encounter Generic External Data Provider [facility] External Department Unsolicited Start: 06-21-2024 End: 06-22-2024 Clinisync Result Encounter Generic External Data Provider [facility] External Department Unsolicited Start: 05-08-2024 End: 05-08-2024 Office outpatient new 45 minutes Quique Vazquez MD Work Phone: [facility] Comment on above: Postural orthostatic tachycardia syndrome (POTS) (Primary Dx); Syncope, unspecified syncope type; Hypothyroidism, unspecified type; BMI 40.0-44.9, adult (Multi); Never smoked tobacco; Morbid obesity (Multi) Start: 05-08-2024 End: 05-08-2024 ambulatory QUIQUE Harris [facility] Start: 04-18-2024 End: 04-19-2024 Telephone encounter Linnea WEBSTER Work Phone: [facility] Start: 04-16-2024 End: 04-16-2024 Bamboo flowsheet Linnea WEBSTER Work Phone: [facility] Start: 04-16-2024 End: 04-16-2024 Bamboo flowsheet Linnea Hackett PA Work Phone: [facility] Start: 04-16-2024 End: 04-16-2024 Clinisync Result Encounter Linnea WEBSTER Work Phone: [facility] External [facility] Unsolicited Start: 04-16-2024 End: 04-16-2024 ambulatory Linnea HACKETT Facility:[facility] Start: 04-16-2024 End: 04-16-2024 Patient encounter procedure Linnea HACKETT [facility] Start: 04-16-2024 End: 04-16-2024 Office outpatient visit 25 minutes Linnea Hackett PA Work Phone: [facility] Comment on above: Throat swelling (Megan karen Dx); Lower abdominal pain; Heart palpitations; Tachycardia; Acquired hypothyroidism (CMS/HCC) Start: 04-16-2024 End: 04-16-2024 ambulatory LINNEA HACKETT Not Available Start: 01-18-2024 End: 01-18-2024 Bamboo flowsheet Linnea Hackett PA Work Phone: [facility] Start: 01-18-2024 End: 01-18-2024 Bamboo flowsheet Linnea Hackett PA Work Phone: [facility] Start: 01-18-2024 End: 01-18-2024 Office outpatient visit 25 minutes Linnea Hackett [...] 12-06-2023 Emergency department patient visit Cliff Gusman [facility] Start: 10-13-2023 End: 10-13-2023 Emergency department patient visit Santos Jhony [facility] Start: 10-06-2023 Patient encounter status Lninea WEBSTER Work Phone: [facility] Start: 09-21-2023 End: 09-21-2023 ambulatory PA-C Linnea Hackett Work Phone: [facility] Work Phone: Start: 09-21-2023 End: 09-21-2023 Departed Referred PA-C Linnea Hackett Work Phone: [facility] Start: 09-04-2023 End: 09-04-2023 ambulatory SELF REFERRAL Facility:[facility] Start: 09-04-2023 End: 09-04-2023 Patient encounter procedure Magdi Duong [facility] Start: 08-01-2023 End: 08-01-2023 ambulatory Linnea HACKETT Facility:[facility] Start: 08-01-2023 End: 08-01-2023 Patient encounter procedure Linnea HACKETT [facility] Start: 06-14-2023 End: 06-14-2023 ambulatory Deon Parra Facility:[facility] Start: 06-14-2023 End: 06-14-2023 Patient encounter procedure Deon Parra [facility] Start: 05-25-2023 End: 05-26-2023 Emergency department patient visit Jean Bullard [facility] Start: 05-08-2023 End: 05-08-2023 ambulatory Linnea HACKETT Facility:[facility] Start: 04-19-2023 Chart abstracting Kirk guillen MD Work Phone: [facility] Start: 04-18-2023 End: 04-18-2023 Office outpatient visit 15 minutes Linnea WEBSTER Work Phone: [facility] Comment on above: Intractable chronic migraine without 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); Sarcoma (CMS/HCC) Start: 04-06-2023 End: 04-06-2023 Admission to same day surgery center KADY Hackett Work Phone: [facility] [place] Start: 04-06-2023 End: 04-06-2023 ambulatory DARIN-Subha Hackett Work Phone: [facility] Work Phone: Start: 04-04-2023 End: 04-04-2023 ambulatory DARIN-Subha Hackett Work Phone: [facility] Work Phone: Start: 04-04-2023 End: 04-04-2023 Patient encounter procedure KADY Hackett Work Phone: [facility] Work Phone: Start: 03-15-2023 End: 03-15-2023 ambulatory IVETH IYER Facility:[facility] Start: 03-15-2023 End: 03-15-2023 Patient encounter procedure IVETH IYER [facility] Start: 02-23-2023 End: 02-23-2023 Subsequent hospital visit by physician Adri Lancaster (Lg Bore/1.5t) Work Phone: Radiology Comment on above: 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] Start: 02-14-2023 End: 02-14-2023 ambulatory JACQUELINE SHARMA Facility:[facility] Start: 02-14-2023 End: 02-14-2023 Patient encounter procedure JACQUELINE SHARMA [facility] Start: 02-14-2023 End: 02-14-2023 Emergency department patient visit Héctor SEula Meghan [facility] Start: 02-06-2023 Telephone encounter Jacqueline Lua rd, MD Work Phone: Hematology/Oncology 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 Start: 12-30-2022 End: 12-30-2022 Patient encounter procedure Gabe R DELMYL [facility] Start: 12-26-2022 End: 12-26-2022 Emergency department patient visit Santos Booker [facility] Start: 12-22-2022 End: 12-22-2022 ambulatory Gabe R NILL Facility:[facility] Start: 12-12-2022 End: 12-12-2022 ambulatory Gabe R NILL Facility:[facility] Start: 12-09-2022 End: 12-09-2022 ambulatory Linnea HACKETT Facility:[facility] Start: 12-09-2022 End: 12-09-2022 Patient encounter procedure Gabe GODWIN [facility] [place] Start: 12-08-2022 End: 12-08-2022 ambulatory MD Nickolas Isaacs Work Phone: [facility] Work Phone: Start: 12-08-2022 End: 12-08-2022 Patient encounter procedure MD Nickolas Isaacs Work Phone: [facility]-Flu Vaccine Start: 11-24-2022 ambulatory Gabe GODWIN Facility:[facility] Start: 10-14-2022 End: 10-14-2022 Emergency department patient visit Cliff Gusman [facility] Start: 10-13-2022 End: 10-13-2022 Patient encounter procedure Db KEANE [facility] Start: 04-11-2022 End: 04-11-2022 Patient encounter procedure Neyda Weinstein [facility] Start: 03-22-2022 End: 03-22-2022 Patient encounter procedure Linnea HACKETT [facility] Start: 03-22-2022 End: 03-22-2022 ambulatory Faby Gusman Other [employer] Other Start: 03-22-2022 Office outpatient vi sit [address] [facility] Start: 03-16-2022 End: 04-01-2022 Pre-admission assessment Rebeka ALVAREZ [facility] Start: 02-28-2022 End: 02-28-2022 Patient encounter procedure Leonardo Herndon Jean [facility] Start: 02-23-2022 End: 04-05-2022 Pre-admission assessment Leonardo J Jean [facility] Start: 02-22-2022 End: 02-22-2022 Patient encounter procedure Leonardo J Jean [facility] Start: 02-08-2022 End: 02-08-2022 Patient encounter procedure Linnea HACKETT [facility] Start: 01-04-2022 End: 01-04-2022 Emergency department patient visit Héctorzahraa Kaminski Meghan [facility] Start: 11-26-2021 End: 11-26-2021 Emergency department patient visit Cliff Gusman [facility] Start: 11-24-2021 End: 11-24-2021 Emergency department patient visit Héctor Walkerner [facility] Start: 11-23-2021 End: 11-23-2021 ambulatory Faby Fay Other [employer] Other Start: 11-23-2021 Office outpatient vi sit [address] [facility] Start: 10-29-2021 End: 10-29-2021 Departed Referred MD Nickolas Isaacs Work Phone: [facility]-Employee Benefit Screening Start: 11-12-2020 End: 11-13-[address] GRAICE RAMIREZ Facility:[facility]1 Procedures Date Procedure Procedure Detail Performing Clinician Start: 11-05-2024 Breath hydrogen/methane test Kimberly Pack [employer] Work Phone: Start: 10-24-2024 [facility] ABO/RH Linnea WEBSTER Work Phone: Start: 10-24-2024 [facility] BLOOD BANK ID# Ngoc jaimezahraa Yanick WEBSTER Work Phone: Start: 10-23-2024 IGP,APTIMA HPV,AGE GDLN Db Diya DO Work Phone: Start: 09-24-2024 NM GASTRIC EMPTYING SOLID Generic External Data Provider Start: 09-16-2024 URINE CULTURE - [facility] Ge neric External Data Provider Start: 09-16-2024 Urine culture Linnea alvarez PA-C Work Phone: Start: 08-29-2024 Colonoscopy Generic Ex ternal Data Provider Start: 08-29-2024 Colonoscopy flx dx w /collj spec when pfrmd Kimberly Pack [employer] Work Phone: Start: 08-29-2024 Esophagoscp rig velasquez soral hypopharynx crv esoph Kimberly Pack [employer] Work Phone: Start: 08-29-2024 UPPER GI ENDOSCOPY [...] Quique Vazquez MD Work Phone: Start: 04-16-2024 [facility] TSH WITH T4FR REFLEX Linnea WEBSTER Work Phone: Start: 04-06-2023 Laparoscopic cholecystectomy KADY Hackett Work Phone: Start: 02-23-2023 Mri abdomen w/o & w/ contrast material Leonardo Bray MD Work Phone: Start: 02-23-2023 Ct thorax w/contrast material Jacqueline Sharma MD Work Phone: Start: 12-22-2022 Excision of lipoma Santos Booker Start: 12-20-2019 Arthroscopy of knee Elizabeth yifan Meghan Comment on above: RIGHT KNEE ARTHROSCO PY, partial lateral menisectomy Extraction of wisdom tooth N oah Meghan Plan of Treatment Date Care Activity Detail Author Start: 2045 Zoster Vaccines (1 of 2) Zoster Vaccines (1 of 2) [facility] Start: 10-28-2025 End: 10-28-2025 Patient encounter procedure 10/28/2025 8:30 AM EDT Procedure Visit [facility] [address] [place] [address] Db Keane DO [address] [place], [place] [id number] JAIME DIAZ Start: 05-06-2025 End: 05-06-2025 Patient encounter procedure 05/06/2025 8:50 AM EST Office Visit [facility] [address] [place] [address] Quique Vazquez MD [address] [place] [address] [facility] Start: 12-20-2024 End: 12-20-2024 Patient encounter procedure 12/20/2024 8:00 AM EDT Office Visit JAIME [place] [facility] [place] [address] Linnea Hackett PA [address] [place] [address] JAIME [place] [facility] Start: 11-11-2024 Influenza vaccination Influenza Vaccine (#1) [facility] Start: 11-05-2024 End: 11-05-2024 Nursing evaluation of patient and report 11/05/2024 9:00 AM EDT Nurse Visit [facility] Gastroenterology [facility] [address] [place], [place] [id number] [facility], Nurse [facility] [address] [place] [address] Nausea and vomiting, unspecified vomiting type [R11.2] [facility] Comment on above: Nausea and vomiting, unspecified vomitin g type [R11.2] Start: 10-24-2024 End: 10-24-2024 Patient encounter procedure 10/24/2024 12:40 PM EDT Office Visit JAIME [place] [facility] [address] [place] [address] Linnea Hackett PA [address] [place] [address] JAIME [place] [facility] Start: 10-23-2024 End: 10-23-2024 Patient encounter procedure [facility] Comment on above: Arrived Start: 10-18-2024 Yearly Adult Physical Yearly Adult Physical [facility] Start: 10-14-2024 End: 10-14-2024 Patient encounter procedure 10/14/2024 12:20 PM EDT Office Visit JAIME [place] [facility] [address] [place] [id number] Linnea Hackett PA [address] [place] [address] Arrived [facility] Comment on above: Arrived Start: 09-16-2024 Urine culture [facility] Start: 09-16-2024 Bacteria identified in Urine by Culture Urine Culture [facility] Start: 08-01-2024 End: 08-01-2024 Patient encounter procedure 08/01/2024 10:40 AM EDT Office Visit [facility] [address] [place] [address] Quique Vazquez MD [address] [place] [address] [facility] Start: 07-08-2024 End: 07-08-2024 Patient encounter procedure 07/08/2024 11:00 AM EDT Office Visit [facility] [address] [place] [phone] Linnea Hackett PA [address] [place] [address] Arrived [facility] Comment on above: Arrived Start: 05-08-2024 End: 05-08-2026 Tilt table study T[facility] Cardiac Services Routine Postural orthostatic tachycardia syndrome (POTS) Syncope, unspecified syncope type Expected: 05/08/2024 (Approximate), Expires: 05/08/2026 [facility] Service Area Work Phone: Comment on above: Expected: 05/08/2024 (Approximate), Expi res: 05/08/2026 Start: 04-16-2024 End: 04-16-2025 TSH W/REFLEX TO FT4 TSH W/REFLEX TO FT4 Lab Routine Acquired hypothyroidism (CMS/HCC) Expected: 04/16/2024 (Approximate), Expires: 04/16/2025 [facility] Work Phone: Comment on above: Expected: 04/16/2024 (Approximate), Expi res: 04/16/2025 Start: 04-16-2024 End: 04-16-2024 Patient encounter procedure 04/16/2024 10:00 AM EST Office Visit [facility] [address] [place] [address] Linnea Hackett PA [address] [place] [address] Arrived [facility] DEXTER Comment on above: Arrived Start: 01-18-2024 End: 01-18-2024 Patient encounter procedure [facility] Comment on above: Arrived Start: 01-08-2024 End: 01-08-2024 Patient encounter procedure 01/08/2024 11:30 AM EDT Office Visit [facility] [address] [place] [address] Linnea Hackett PA [address] [place] [address] Arrived NOM[facility] DEXTER Comment on above: Arrived Start: 11-12-2023 Covid-19 Vaccine ( season) Covid-19 Vaccine ( season) [facility] Start: 11-12-2023 COVID-19 Vaccine ( season) COVID-19 Vaccine ( season) [facility] Start: 11-12-2023 Influenza vaccination Influenza Vaccine (#1) [facility] Start: 10-18-2023 End: 10-18-2023 Patient encounter procedure 10/18/2023 2:20 PM EDT Office Visit [facility] [address] [place] [id number] Db Keane, DO [address] [place] [address] [facility] Start: 05-31-2023 End: 05-31-2023 Patient encounter procedure 05/31/2023 9:00 AM EDT Consult [facility] [address] [place] [address] Nichol Kiser, DO [address] [place] [address] [facility] Start: 04-19-2023 End: 04-19-2023 Patient encounter procedure 04/19/2023 9:30 AM EST Office Visit JAIME JIMENEZ [address] [facility] [address] [place] [id number] Kirk Rush MD [address] [facility] [address] [place] [address] JAIME JIMENEZ Start: 04-06-2023 [facility] Start: 04-06-2023 [facility] Start: 02-15-2023 End: 03-09-2024 CT CHEST W IVCON CT CHEST W IVCON Radiology Routine History of sarcoma of soft tissue Family history of cancer Expected: 02/15/2023, Expires: 03/09/2024 [facility] Work Phone: Comment on above: Expected: 02/15/2023, Expires: Start: 11-11-2022 Covid-19 Vaccine () Covid-19 Vaccine () [facility] Start: 03-13-2022 Depression Assessment Depression Assessment [facility] Start: 01-20-2016 Pap Testing Pap Testing [facility] Start: 01-20-2016 Screening for malignant neoplasm of cervix [facility] Start: 2014 Pneumococcal Vaccine: Pediatrics and At-Risk Adult Patients (1 of 2 - PCV) Pneumococcal Vaccine: Pediatrics and At-Risk Adult Patients (1 of 2 - PCV) [facility] Start: 2013 Annual PCP Team Chronic Disease Visit Annual PCP Team Chronic Disease Visit [facility] Start: 2013 Anxiety Screening Anxiety Screening [facility] Start: 2013 Depression Screening Depression Screening [facility] Start: 2013 Diabetes mellitus screening Diabetes Screening [facility] Start: 2013 Hepatitis C Screening Hepatitis C Screening [facility] Start: 2013 Hepatitis C screening Hepatitis C Screening [facility] Start: 2013 HIV Screening HIV Screening [facility] Start: 2013 HIV screening HIV Screening [facility] Start: 05-02-2008 HPV Vaccines (2 - 2-dose series) HPV Vaccines (2 - 2-dose series) [facility] Start: 01-20-2008 Varicella vaccination Varicella Vaccines (1 of 2 - 13+ 2-dose series) [facility] Start: 2006 DTaP/Tdap/Td Vaccines (6 - Tdap) DTaP/Tdap/Td Vaccines (6 - Tdap) [facility] Start: 2006 Urine microalbumin profile DTaP,Tdap,Td Vaccine (6 - Tdap) [facility] Start: 2005 Glaucoma screening Diabetes: Retinopathy Screening [facility] Start: 1995 Hemoglobin A1c measurement Diabetes: Hemoglobin A1C [facility] Start: 1995 HIV screening HIV Screening [facility] Start: 1995 Lipid panel Lipid Panel [facility] Start: 1995 Thyroid stimulating hormone measurement TSH Level [facility] Start: 1995 Urine screening for protein Diabetes: Urine Protein Screening [facility] Start: 1995 Yearly Adult Physical Yearly Adult Physical [facility] End: 10-01-2025 BREATH TEST GLUCOSE BREATH TEST GLUCOSE Endoscopy Routine Nausea and vomiting, unspecified vomiting type 1 Occurrences starting 10/01/2024 until 10/01/2025 [facility] Comment on above: 1 Occurrences starting 10/01/2024 until 10/01/2025 Cytology Cervical or vaginal smear or scraping study Pap Smear Pathology and Cytology Routine Well woman exam with routine gynecological exam Ordered: 10/23/2024 [facility] Work Phone: Comment on above: Ordered: 10/23/2024 End: 03-04-2024 Mri abdomen w/o & w/contrast material MRI ABDOMEN WO/W IVCON Radiology Routine Soft tissue tumor 1 Occurrences starting 02/03/2023 until 03/04/2024 [facility] Work Phone: Comment on above: 1 Occurrences starting 02/03/2023 until 03/04/2024 NM Stomach Views for gastric emptying solid phase W radionuclide PO NM GASTRIC EMPTYING SOLID Radiology Routine Dyspepsia 09/24/2024 9:32 AM EDT [facility] Work Phone: Patient Education Cholecystectom y (DC) Hydrocodone and Acetaminophen [facility] Work Phone: Patient referral [facility] Work Phone: Tissue Pathology biopsy report [facility] Work Phone: Comment on above: Release Upon Ordering for 1 Occurrences starting 08/29/2024, 1 completed URINE CULTURE - [facility] URINE CULTU RE - [facility] Lab Routine 09/16/2024 10:35 PM EDT [facility] End: 07-10-2024 US Heart Transthoracic [facility] Work Phone: Comment on above: Once for 1 Occurrences starting 07/11/19 until 07/10/2024 End: 10-01-2025 US Mesenteric arteries US MESENTERIC ARTERY [facility] Vascular Lab Routine Nausea and vomiting, unspecified vomiting type 1 Occurrences starting 10/01/2024 until 10/01/2025 [facility] Work Phone: Comment on above: 1 Occurrences starting 10/01/2024 until 10/01/2025 [facility] Immunizations Immunization Date Immunization Notes Care Provider [facility] 01-05-2024 influenza virus vaccine, unspecified formulation Quique Vazquez MD Work Phone: [facility] Work Phone: 11-12-2023 influenza, seasonal, injectable Quique Vazquez MD Work Phone: [facility] Work Phone: 12-08-2022 influenza, injectabl e, quadrivalent, preservative free Kirk Ruvalcaba MD Work Phone: [facility] 12-08-2022 influenza virus vaccine, unspecified formulation Mri Bore/1.5t) Work Phone: [facility] 11-21-2022 influenza, seasonal, injectable Kirk Ruvalcaba MD Work Phone: [facility] 02-11-2021 SARS-CoV-2 (COVID-19 ) [id number] vaccine Gabe GODWIN [facility] [place] 2021 influenza, injectabl e, quadrivalent, contains preservative Kirk Ruvalcaba MD Work Phone: [facility] 04-17-2020 COVID-19 mRNA-[id number] (Fernando) MD Nickolas Isaacs Work Phone: [facility] 03-20-2020 COVID-19 mRNA-1273 (Fernando) MD Nickolas Isaacs Work Phone: [facility] 01-10-2020 seasonal influenza, intradermal, preservative free Kirk Ruvalcaba MD Work Phone: [facility] 12-30-2011 influenza, seasonal, injectable, preservative free Kirk Ruvalcaba MD Work Phone: [facility] 10-31-2007 HPV, unspecified formulation Kirk Ruvalcaba MD Work Phone: [facility] 05-30-2007 human papilloma viru s vaccine, quadrivalent Kirk Ruvalcaba MD Work Phone: [facility] 03-27-2007 human papilloma viru s vaccine, quadrivalent Kirk Ruvalcaba MD Work Phone: [facility] 06-30-2000 diphtheria, tetanus toxoids and pertussis vaccine Kirk Ruvalcaba MD Work Phone: [facility] 06-30-2000 measles, mumps and rubella virus vaccine Kirk Ruvalcaba MD Work Phone: [facility] 06-30-2000 poliovirus vaccine, unspecified formulation Kirk Ruvalcaba MD Work Phone: [facility] 04-24-1996 diphtheria, tetanus toxoids and pertussis vaccine Kirk Ruvalcaba MD Work Phone: [facility] 04-14-1996 haemophilus influenz ae type b vaccine, conjugate unspecified formulation Kirk Ruvalcaba MD Work Phone: [facility] 04-14-1996 measles, mumps and rubella virus vaccine Kirk Ruvalcaba MD Work Phone: [facility] 1995 diphtheria, tetanus toxoids and pertussis vaccine Kirk Ruvalcaba MD Work Phone: [facility] 1995 haemophilus influenz ae type b vaccine, conjugate unspecified formulation Kirk Ruvalcaba MD Work Phone: [facility] 1995 hepatitis B vaccine, pediatric or pediatric/adolescent dosage Kirk Ruvalcaba MD Work Phone: [facility] 1995 poliovirus vaccine, unspecified formulation Kirk Ruvalcaba MD Work Phone: [facility] 1995 poliovirus vaccine, unspecified formulation Kirk Ruvalcaba MD Work Phone: [facility] 1995 diphtheria, tetanus toxoids and pertussis vaccine Kirk Ruvalcaba MD Work Phone: [facility] 1995 haemophilus influenz ae type b vaccine, conjugate unspecified formulation Kirk Ruvalcaba MD Work Phone: [facility] 1995 diphtheria, tetanus toxoids and pertussis vaccine Kirk Ruvalcaba MD Work Phone: [facility] 1995 haemophilus influenz ae type b vaccine, conjugate unspecified formulation Kirk Ruvalcaba MD Work Phone: [facility] 1995 poliovirus vaccine, unspecified formulation Kirk Ruvalcaba MD Work Phone: [facility] 1995 hepatitis B vaccine, pediatric or pediatric/adolescent dosage Kirk Ruvalcaba MD Work Phone: [facility] 1995 hepatitis B vaccine, pediatric or pediatric/adolescent dosage Kirk Ruvalcaba MD Work Phone: [facility] Payers Date Payer Category Payer [facility] [id number] 2022 Private Health Insurance [id number] 2022 Unknown [id number] [id number]. [id number] 1995 Unknown [id number] 2.16.840.1.700677.3.579.2. 593 1995 Unknown [id number] 2.16.840.1.036591.3.579.2. 1995 Unknown [id number] 2.16.840.1.582128.3.579.2. 1995 Unknown [id number] 2.16.840.1.340140.3.579.2. 1995 Unknown [id number] 2.16.840.1.090438.3.579.2. 72 1995 Unknown [id number] 2.16.840.1.966741.3.579.2. 72 1995 Unknown [id number] 2.16.840.1.618836.3.579.2. 1995 Unknown [id number] 2.16.840.1.762855.3.579.2. 1995 Unknown [id number] 2.16.840.1.335078.3.579.2. 72 1995 Unknown [id number] 2.16.840.1.961794.3.579.2. 1995 Unknown [id number] 2.16.840.1.877620.3.579.2. 72 1995 Unknown [id number] 2.16.840.1.524484.3.579.2. 72 1995 Unknown [id number] 2.16.840.1.639100.3.579.2. 1995 Unknown [id number] 2.16.840.1.409678.3.579.2. 72 1995 Unknown [id number] 2.16.840.1.246581.3.579.2. 1995 Unknown [id number] 2.16.840.1.151260.3.579.2. 1995 Unknown [id number] 2.16.840.1.466245.3.579.2. 1995 Unknown [id number] 2.16.840.1.519260.3.579.2. 1995 Unknown [id number] 2.16.840.1.402657.3.579.2. 1995 Unknown [id number] 2.16.840.1.839347.3.579.2. 1995 Unknown [id number] 2.16.840.1.553473.3.579.2. 1245 1995 Unknown [id number] 2.16.840.1.580758.3.579.2. 1243 1995 Unknown [id number] 2.16.840.1.818944.3.579.2. 124 1995 Unknown [id number] 2.16.840.1.150168.3.579.2. 1258 1995 Unknown [id number] 2.16.840.1.377810.3.579.2. 1259 1995 Unknown [id number] 2.16.840.1.478085.3.579.2. 1259 1995 Unknown [id number] 2.16.840.1.938375.3.579.2. 1259 1995 Unknown [id number] 2.16.840.1.685850.3.579.2. 9 1995 Unknown [id number] 2.16.840.1.783120.3.579.2. 1259 1995 Unknown [id number] 2.16.840.1.576455.3.579.2. 1259 1995 Unknown [id number] 2.16.840.1.136090.3.579.2. 727 1959 Unknown [id number] Self-pay Self Pay [id number] Social History Date Type Detail Facility [facility] Work Phone: Start: 1995 Sex Assigned At Female F [facility] Start: 11-18-2022 End: 08-29-2024 Sex Assigned At [employer] Other Tobacco [facility] Comment on above: denies DEnies. Tobacco smoking status No Smokin g Status Entered [facility] Start: 12-09-2022 End: 08-29-2024 Tobacco smoking status Never smoked tobacco (finding) [facility] [place] Start: 11-17-2022 Tobacco smoking status Never [facility] smoking consumption unknown [facility] Start: 11-18-2022 End: 08-29-2024 History of Social function [facility] Start: 05-25-2022 Gender identity Identifies as female gender (finding) [facility] Start: 08-03-2022 Sexual orientation Heterosexual (fin ding) [facility] Start: 08-02-2022 End: 08-29-2024 Tobacco use and exposure Smokeless tobacco non-user [facility] Start: 04-04-2023 End: 10-24-2024 Alcohol intake Current drinker of alcohol (finding) [...] Not at all [facility] (I/We) worried whegautam er (my/our) food would run out before [...] Healthcare Start: 05-08-2024 Alcohol Comment 1-2 yearly [facility] Work Phone: Start: 1995 Sex assigned at Not on file [facility] Work Phone: Start: 04-28-2024 End: 07-10-2024 Exposure to SARS-CoV-2 (event) Not sure [facility] Start: 08-15-2024 Sex Female (finding) [facility] Start: 08-29-2024 Alcoholic beverage intake Lifetime non-drinker (finding) [facility] Do you feel stress - tense, restless, nervous, or anxious, or unable to sleep at night because your mind is troubled all the time - these days [OSQ] Only a little [facility] Goals Date Patient Goal Desired Activity /State Functional Status Date Assessment Result Facility 12-06-2023 Functional Status N/A [facility] 10-13-2023 Functional Status N/A [facility] 09-04-2023 Functional Status No [facility] 05-25-2023 Functional Status N/A [facility] 02-14-2023 Functional Status N/A [facility] 12-26-2022 Functional Status N/A [facility] 12-09-2022 Functional Status N/A [facility] [place] 10-14-2022 Functional Status N/A [facility] 02-22-2022 Functional Status N/A [facility] 01-04-2022 Functional Status N/A [facility] 11-26-2021 Functional Status Yes [facility] 11-24-2021 Functional Status Yes [facility] Clinical Notes 03-31-2019 to 11-05-2024 Ludy Fabian MA - 11/05/2024 11:25 AM DARIN Jacobsen - 10/24/2024 12:40 PM DARIN Jacobsen - 10/24/2024 12:40 PM Tahmina Lyles LPN - 10/23/2024 3:00 PM EDTPatient Instructions Note Date & Type Note Facility 11-05-2024 Note HNO ID: [id number] Author: LUDY FABIAN MA Service: ? Author Type: Programs Assistant Type: Progress Notes Filed: 11/05/2024 11:33 Note Text: Glucose - SIBO Hydrogen Breath Test November 05, 2024 Referring Physician: Kimberly Nava APRN.CNP Indication Nausea and Vomiting Prep: 4 weeks following: none 1 hour before: No Smoking Day of test - No gum chewing Baseline Hydrogen: 16 Methane: 9 Ludy Fabian MA Time given: 8:40am 50 grams / 50 grams Clock time start: 8:45am 15 minutes Hydrogen: 30 Methane: 9 Ludy Fabian MA 30 minutes Hydrogen: 22 Methane: 11 Ludy Restifo, MA 45 minutes Hydrogen: 31 Methane: 11 Ludy Darbyo, MA 1 hour Hydrogen: 24 Methane: 10 Ludy Fabian MA 1 hour, 15 minutes Hydrogen: 23 Methane: 10 Ludy Darbyo, MA 1 hour, 30 minutes Hydrogen: 20 Methane: 8 Ludy Fabian MA Symptoms developed during the study: None Patient Results Preliminary Test Results (not given to patient): Pending Ludy Fabian MA [facility] 11-05-2024 History of Present illness Narrative Glucose - SIBO Hydrogen Breath Test November 05, 2024 Referring Physician: Kimberly Nava APRN.SMALL STOCK FACER Indication Nausea and Vomiting Prep: 4 weeks following: none 1 hour before: No Smoking Day of test - No gum chewing Baseline Hydrogen: 16 Methane: 9 Ludy Fabian MA Time given: 8:40am 50 grams / 50 grams Clock time start: 8:45am 15 minutes Hydrogen: 30 Methane: 9 Ludy Fabian MA 30 minutes Hydrogen: 22 Methane: 11 Ludy Fabian MA 45 minutes Hydrogen: 31 Methane: 11 Ludy Darbyo, MA 1 hour Hydrogen: 24 Methane: 10 Ludy Darbyo MA 1 hour, 15 minutes Hydrogen: 23 Methane: 10 Ludy Fabian MA 1 hour, 30 minutes Hydrogen: 20 Methane: 8 Ludy Fabian MA Symptoms developed during the study: None Patient Results Preliminary Test Results (not given to patient): Pending Ludy Fabian MA documented in this encounter [facility] 10-24-2024 History of Present illness Narrative Images from the original note were not included. Adina Martinez is a 29 y.o. female presents with chief complaint of No chief complaint on file. HPI: History of Present Illness MEDICATIONS: Current Outpatient Medications Medication Instructions albuterol HFA 90 mcg/act inhaler 2 puffs, Every 4 hours PRN Albuterol-Budesonide (Airsupra) 90-80 MCG/ACT aerosol 2 puffs, Inhalation, Every 4 hours PRN cyclobenzaprine (Flexeril) 5 MG tablet Take by mouth HYDROcodone-acetaminophen ([place]) 5-325 MG tablet 1 tablet, Every 4 hours PRN levothyroxine (SYNTHROID) 112 mcg, Oral, Daily before breakfast metFORMIN XR (GLUCOPHAGE-XR) 1,000 mg, Oral, Daily with evening meal, Do [...] Social History reviewed. OBJECTIVE: Visit Vitals BP 124/80 (BP Location: Left arm, Patient Position: Sitting, BP Cuff Size: Large adult) Pulse 66 Temp 98.1 F (Temporal) Ht 5' 8 Wt 283 lb 6.4 oz LMP 10/06/2024 (Exact Date) SpO2 99% BMI 43.09 kg/m OB Status Having periods Smoking Status Never BSA 2.49 m BP Readings from Last 3 Encounters: 10/24/24 124/80 10/23/24 108/70 10/14/24 118/82 Wt Readings from Last 3 Encounters: 10/24/24 283 lb 6.4 oz 10/23/24 283 lb 12 oz 10/14/24 279 lb Physical Exam Physical Exam General: alert & oriented, NAD Head: NC/AT Oral Cavity: MMM Skin: warm, dry Heart: RRR, No m/r/g, S1S2 nml Lungs: CTA b/l Abdomen: soft, ND/NT, BS wnl Musculoskeletal: normal gait Extremities: no clubbing, cyanosis or edema Neurological: nonfocal Psych: mood/affect full range Results ASSESSMENT AND PLAN: Assessment & Plan Assessment/Plan Health Maintenance Due Topic Date Due Influenza Vaccine (1) 11/11/2024 Images from the original note were not included. Adina Martinez is a 29 y.o. female presents with chief complaint of No chief complaint on file. HPI: Flowsheet Row Patient Outreach from 10/22/2024 in [facility] with Jimena Williamson LPN Hospital Information ED, Hospital or Correction Facility Discharge? ED Patient has been contacted within 2 days of being seen in the ED Yes Diagnosis Cervical Radiculopathy Discharge Date 10/22/24 Discharged To: Home Setting Discharge Hospital [facility] Admission Date 10/21/24 Medications Discharge medications reviewed [...] Advised patient to keep appointment Self Management Patient Teaching Does the patient have access to their discharge instructions? Yes Nursing Interventions Reviewed instructions with patient What is the patient's perception of their health status since discharge? Improving Wrap Up Wrap Up Additional Comments Xray R shoulder, US R shoulder History of Present Illness The patient is a 29-year-old female who presents for an ER follow-up. She reports that her arm had turned blue, prompting her to seek emergency care. The discoloration has not recurred since then. She continues to experience a tingling sensation in her arm, but the pain has subsided. She has been managing the discomfort with muscle relaxants and pain medication. She believes the issue may be due to a pinched nerve and prefers to wait before pursuing further treatment. She recalls experiencing shoulder pain, which she also attributed to a pinched nerve, but the pain intensified and radiated up her neck, down her arm, and into her back. She has considered massage therapy as a potential treatment option. She received two injections during her ER visit, one upon arrival and another before discharge, which left her feeling drowsy. She has regained mobility in her arm, which was not possible on Monday. She has been taking the prescribed muscle relaxant and pain medication, but does not feel the need for additional refills at this time. She took the muscle relaxant on Monday night and Monday after work but did not take it last night due to her late work schedule. She plans to take it tonight after work. She had a gynecology appointment yesterday, during which her metformin dosage was increased. Despite maintaining a healthy diet and regular exercise, she continues to struggle with weight gain. She is considering Ozempic as a potential treatment option. She is curious about her prediabetic status, as she has never been informed of this diagnosis. She has been unable to obtain her blood type from [facility] or [facility], despite having undergone two surgeries at these facilities. Her oncologist has recommended that she get a bracelet made with all her medical information due to her POTS diagnosis, as there is a concern that she may faint and be mistaken for someone without a medical history. Diet: She reports maintaining a healthy diet. PAST SURGICAL HISTORY: - Two unspecified surgeries at [facility]. MEDICATIONS: Current Outpatient Medications Medication Instructions albuterol HFA 90 mcg/act inhaler 2 puffs, Every 4 hours PRN Albuterol-Budesonide (Airsupra) 90-80 MCG/ACT aerosol 2 puffs, Inhalation, Every 4 hours PRN HYDROcodone-acetaminophen ([place]) 5-325 MG tablet 1 tablet, Every 4 hours PRN levothyroxine (SYNTHROID) 112 mcg, Oral, Daily before breakfast metFORMIN XR (GLUCOPHAGE-XR) 1,000 mg, Oral, Daily with evening meal, Do [...] Social History reviewed. OBJECTIVE: Visit Vitals BP 124/80 (BP Location: Left arm, Patient Position: Sitting, BP Cuff Size: Large adult) Pulse 66 Temp 98.1 F (Temporal) Ht 5' 8 Wt 283 lb 6.4 oz LMP 10/06/2024 (Exact Date) SpO2 99% BMI 43.09 kg/m OB Status Having periods Smoking Status Never BSA 2.49 m BP Readings from Last 3 Encounters: 10/24/24 124/80 10/23/24 108/70 10/14/24 118/82 Wt Readings from Last 3 Encounters: 10/24/24 283 lb 6.4 oz 10/23/24 283 lb 12 oz 10/14/24 279 lb Physical Exam Physical Exam Extremities: Bluish discoloration noted in the right arm, improved since ER visit. General: alert & oriented, NAD Head: NC/AT Oral Cavity: MMM Skin: warm, dry Heart: RRR, No m/r/g, S1S2 nml Lungs: CTA b/l Abdomen: soft, ND/NT, BS wnl Musculoskeletal: normal gait Extremities: no clubbing, cyanosis or edema Neurological: nonfocal Psych: mood/affect full range Results Labs - Hemoglobin A1c: 2022, 5.6% ASSESSMENT AND PLAN: Assessment & Plan 1. Post-ER follow-up. - Arm discoloration has improved, but tingling sensations persist. - Pain has subsided with muscle relaxants and pain medications. - Suspected pinched nerve; physical therapy discussed as a potential next step if symptoms persist. - Advised to continue muscle relaxant before bedtime and perform exercises to keep the shoulder joint mobile. 2. Weight management. - Ongoing weight gain despite working out and eating healthy. - Pattern Illustrator increased metformin dosage. - Possibility of using Ozempic discussed but will be considered later. - Advised to continue increased metformin dosage and follow up with heavy mobile equipment operator. 3. Blood type determination. - Requested printout of blood type information to take to [facility]. - Order for blood type determination placed on 10/14/2024. Assessment/Plan Problem List Items Addressed This Visit Cervical radiculopathy - Primary Health Maintenance Due Topic Date Due Influenza Vaccine (1) 11/11/2024 documented in this encounter [facility] 10-23-2024 History of Present illness Narrative Reason [...] 5 MG tablet Take by mouth HYDROcodone-acetaminophen ([place]) 5-325 MG tablet 1 tablet, Every 4 [...] Morbid (severe) obesity due to excess calories ([facility]) 01/10/2020 Acquired hypothyroidism 10/11/2019 Anxiety disorder 08/02/2022 Morbid obesity ([facility]) 10/11/2019 Personal history of COVID-19 08/02/2022 Tear [...] POTS (postural orthostatic tachycardia syndrome) Thyroid disease [facility] ER- thyroid ultrasound, trouble swallowing - 12/30/21 Trouble swallowing 12/30/2021 Vitamin D deficiency Social History Tobacco Use Smoking status: Never Smokeless tobacco: Never Substance Use Topics Alcohol use: Yes Comment: 1-2 drinks of alcohol less than mthly Drug use: Never FAMILY HISTORY Family History Problem Relation Name Age of Onset Mental illness Mother Fernanda Lofter Miscarriages / Stillbirths Mother Fernanda Lofter Hypertension Father Leonardo Martinez Cancer Paternal Grandfather [...] nursing note reviewed. Exam conducted with a textiles and clothing teacher present. Vitals: Estimated body mass index is [...] them. Patient can also view results via RoomClipt. I reinforced importance of condom use for [...] Db Keane DO documented in this encounter [facility] 10-14-2024 History of Present illness Narrative Images from the original note were not included. Adina Martinez is a 29 y.o. female presents with chief complaint of No chief complaint on file. HPI: History of Present Illness The patient is a 29-year-old female who presents for her annual wellness physical. She has been experiencing difficulty with eating, which led to a consultation with a production mechanic. This specialist referred her to a motility expert at the [facility]. She underwent an EGD and colonoscopy, [...] a tilt table test performed by her process consultant, who initially suspected orthostatic hypotension. However, based on the tilt table results and her heart rate over the past year, he now believes she may have POTS. During the tilt table test, her blood pressure was recorded as 70/40. She was prescribed metoprolol 100 mg twice daily, which has been beneficial. Her process consultant also advised her to monitor for reactive [...] 2 puffs, Inhalation, Every 4 hours PRN Nhtizndohot-Ahqbdidda-Aybsrn (Trelegy Ellipta) 200-62.5-25 MCG/ACT aerosol powder 1 [...] blood sugar levels twice a day. - E Learning Developer advised to watch for reactive hypoglycemia. Assessment/Plan Problem List Items Addressed This Visit Preventative health care - Primary Health Maintenance Due Topic Date Due Influenza Vaccine (1) 11/11/2024 documented in this encounter [facility] 09-24-2024 History of Present illness Narrative RADIOLOGY [...] PATIENT PRESENTS WITH AN IMPLANTABLE OR ATTACHED PHYSICIAN ASSISTANT PSYCHIATRY: No CREATININE: Creatinine Date Value Ref Range [...] 0835 PATIENT DISCHARGED TO: Ambulatory patient, left [place] department area. Is this a therapy: No A Diagnostic radioactive procedure has taken place, with no further precautions necessary other than routine body substance precautions. More information regarding radiation safety can be found using this link: [email or web address] [email or web address]-%20Diagnostic%20Nucl ear%20Medicine%20Procedures.[email or web address] SIGNATURE: Prema Martinez PATIENT NAME: Adina Martinez DATE: September 24, 2024 TIME: 9:31 AM PAGER/CONTACT #: documented in this encounter [facility] 09-24-2024 Note HNO ID: [id number] Author: CHATO BRAY Nuclear Tech Service: ? [...] PATIENT PRESENTS WITH AN IMPLANTABLE OR ATTACHED PHYSICIAN ASSISTANT PSYCHIATRY: No CREATININE: Creatinine Date Value Ref Range [...] [address] PERFORMED: No IV SITE: [place] only - not applicable, oral or physician administered agents given to patient POST EXAM PIV STATUS: Not applicable PROCEDURE TYPE: NM GET: 0.86 mCi Tc99m SULFUR COLLOID was administered orally via 4 ounces of Egg Beaters,1 pieces of toast, 1 ounce of jelly with 8 ounces of water orally ADMINISTRATION TIME: 0835 PATIENT DISCHARGED TO: Ambulatory patient, left [place] department area. Is this a therapy: No A Diagnostic radioactive procedure has taken place, with no further precautions necessary other than routine body substance precautions. More information regarding radiation safety can be found using this link: [email or web address] [email or web address]-% 20Diagnostic%20Nuclear%20Medicine %20Procedures.pdf SIGNATURE: Chato Bray [place] PATIENT NAME: Adina Martinez DATE: September 24, 2024 TIME: 9:31 AM PAGER/CONTACT #: [facility] 09-12-2024 History of Present illness Narrative HPI [...] at 42 kg/m , she works in [employer] She reports no palpitations orthopnea PND no [...] Attestation By signing my name below, I, Gila Gurrola LPN attest that this documentation has been prepared [...] discussion and plan. documented in this encounter [facility] Work Phone: 09-12-2024 Instructions Radha Hill LPN [...] be sent through Care Everywhere.Heart Healthy Diet (Thai)documented in this encounter [facility] Work Phone: 08-29-2024 History and physical note [...] MAC Additional Comments: None Bobo Parson MD [facility] 08-29-2024 History and physical note HISTORY AND [...] Bobo Parson MD documented in this encounter [facility] 08-29-2024 Nurse Note PRE OP LEARNING ASSESSMENT PROCEDURE/SURGERY: GI PROCEDURES: Colonoscopy and EGD READINESS TO LEARN COGNITIVE ABILITY: Alert and oriented MOTIVATION TO LEARN: Interested FAMILY SUPPORT: Unable to assess - Family not present PATIENT LEARNS BEST BY: Individual Instruction Verbal Instruction FACTORS AFFECTING LEARNING: None PHYSICAL LIMITATIONS AFFECTING LEARNING: None Electronically Signed By: Tasia El RN In Department: AMBULATORY SURGERY [facility] 08-29-2024 Nurse Note PRE OP LEARNING [...] Department: AMBULATORY SURGERY documented in this encounter [facility] 08-14-2024 Radiology Diagnostic study note [facility] [place] [address] [place] [address] CT Scan Report Signed Patient: Adina Martinez MR#: [id number] : 1995 Acct:[id number] Age/Sex: 29 / F ADM Date: 5 Loc: CT Room: Type: [facility] Attending Dr: Linnea Hackett PA-C, Copies to: Linnea Hackett Pa-C~ Ordering Provider: Linnea Hackett Pa-C Date [...] hydronephrosis. Prior cholecystectomy.[ GI: Small hiatal hernia. Phss-lk-ydioctnb retained stool within the colon. Mild colonic [...] Miller M.D. 08/14/2024 11:03 AM Dictation Location: [place] [address] Transcribed By: CHARLENE 08/14/24 1103 Dictated By: Meet Miller MD 08/14/24 1031 Signed By: 08/14/24 1103 [facility] [place] Work Phone: 07-08-2024 History of Present illness Narrative Images from the original note were not included. Adina Martinez is a 29 y.o. female presents with chief complaint of ER Follow-up and Abdominal Pain HPI: Flowsheet Row Office Visit from 07/08/2024 in [facility] with DARIN Mclean Hospital Information ED, Hospital or Correction Facility Discharge? ED Patient has been contacted within 2 days of being seen in the ED Yes Diagnosis Stomach pain Discharge Date 06/21/24 Discharged To: Home Setting Discharge [facility] Engagement Admission Date 06/21/24 Medications Discharge [...] also reported. A scheduled appointment with a production mechanic is on 09/03/2024. Her father had advised her to go to the [facility] in hopes of getting an earlier [...] all these symptoms started. She was in [place] and had a good time. For the [...] An echocardiogram was done on Monday through [facility] because a doctor diagnosed her with POTS [...] MCG (1000 UT) capsule 2 capsules, Daily Naaoxyltnwv-Ntgwddckj-Tqbjwy (Trelegy Ellipta) 200-62.5-25 MCG/ACT aerosol powder 1 [...] to keep the upcoming appointment with the production mechanic on 09/03/2024 for further evaluation. 2. Urinary tract infection. - Reports a burning sensation during urination. - Urinalysis showed a significant bacterial count with normal urogenital antwan. - Previously prescribed Keflex, which did not alleviate symptoms. - Prescription for Macrobid will be sent to [facility] in [place] to target the urinary tract infection more specifically. 3. Postural Orthostatic Tachycardia Syndrome (POTS). - Diagnosed with POTS, contributing to symptoms of extreme fatigue, shortness of breath, and migraines. - Recent echocardiogram performed; scheduled for a tilt table test next to confirm the diagnosis. - Follow-up with the process consultant next week. 4. Bruising. - Reports unexplained bruising on the shoulder blade and buttocks. - Potentially related to current medications. - No changes to the medication regimen recommended at this time. LA completed Assessment/Plan Problem List Items Addressed This Visit Abdominal pain Periumbilical mass Acute cystitis with hematuria - Primary Relevant Medications nitrofurantoin, macrocrystal-monohydrate, (Macrobid) 100 MG capsule There are no preventive care reminders to display for this patient. documented in this encounter [facility] 05-08-2024 History of Present illness Narrative Cardiology [...] She was evaluated by Dr. Mcfadden at [facility] couple years ago and had an echocardiogram [...] will obtain copy of the echocardiogram from [facility]. 2-morbid obesity, patient was advised on measures [...] Scribe Attestation By signing my name below, Irais Cruz LPN, Scribe attest that this documentation [...] discussion and plan. documented in this encounter [facility] Work Phone: 05-08-2024 Instructions Irais Antoine LPN [...] at the time of your visit. Retrieve [facility] Tilt tablet Visit for results BMI was above normal measurement. Current weight: 130 kg (286 lb) Weight change since last visit (-) denotes wt loss 286 lbs Weight loss needed to achieve BMI 25: 121.9 Lbs Weight loss needed to achieve BMI 30: 89.1 Lbs Provided instructions on dietary changes. documented in this encounter [facility] Work Phone: 04-19-2024 Telephone encounter Note reviewed [facility] 04-19-2024 Miscellaneous Notes reviewed Please call patient blood work shows we need to increase thyroid medication, sent new dose to [facility] See in 3 months for follow up documented in this encounter [facility] 04-18-2024 Telephone encounter Note Please call patient blood work shows we need to increase thyroid medication, sent new dose to [facility] See in 3 months for follow up [facility] 04-16-2024 History of Present illness Narrative Images [...] for allergy and genetic testing at the [facility], but these were not completed. She has not discussed this with her oncologist. She has been monitoring her blood glucose levels due to rapid drops. She carries a nebulizer and 5 different inhalers with her at all times. She plans to discuss hormone testing with her heavy mobile equipment operator, as her mother suggested this could be [...] MCG (1000 UT) capsule 2 capsules, Daily Dqwjyidvtim-Onyrfnjcg-Igyysv (Trelegy Ellipta) 200-62.5-25 MCG/ACT aerosol powder 1 [...] her ears. A referral to Cardiology at [facility] has been initiated. 2. Abdominal pain. She [...] for this patient. documented in this encounter [facility] 01-18-2024 History of Present illness Narrative Images from the original note were not included. Adina Martinez is a 28 y.o. female presents with chief complaint of Follow-up HPI: History of Present Illness The patient is a 28-year-old female who presents for a follow-up visit. She was unable to attend her scheduled follow-up in 09/2023 due to unforeseen circumstances. She had a consultation in [place] yesterday where it was discovered that her uterus is approximately three times its normal size. She was advised to consult her heavy mobile equipment operator as this could be indicative of Polycystic Ovary Syndrome (PCOS) or another condition. 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 While these are often benign, there is a 1 to 10 percent chance of them developing into pancreatic cancer. Her doctor plans to discuss the preliminary reports with a copy room technician and will contact her to discuss [...] MCG (1000 UT) capsule 2 capsules, Daily Umfkexzsemy-Bwvdwjamy-Wzalbt (Trelegy Ellipta) 200-62.5-25 MCG/ACT aerosol powder 1 [...] be. She was advised to contact her heavy mobile equipment operator for further evaluation. Differential diagnosis includes Polycystic [...] for this patient. documented in this encounter [facility] 01-08-2024 History of Present illness Narrative Images from the original note were not included. Telehealth Encounter: Verbal consent was obtained from patient for Telehealth Services. Patient Location ([place]) Adina Martinez is a 28 y.o. female [...] MCG (1000 UT) capsule 2 capsules, Daily Ummxiwrkgav-Hpgyfghdk-Typyua (Trelegy Ellipta) 200-62.5-25 MCG/ACT aerosol powder 1 [...] nebulizer, including albuterol, will be sent to [facility] in [place]. 2. Asthma. The patient has been using [...] for this patient. documented in this encounter [facility] 12-06-2023 Hospital Discharge instructions Patient Education 12/06/2023 [...] Follow these instructions at home: Medicines Take akzg-cmg-issehqr and prescription medicines only as told by [...] provider. Document Revised: 01/12/2023 Document Reviewed: 01/12/2023 [email or web address] Patient Education 2023 [employer] Follow Up Care 12/06/2023 15:44:08 With:Moises Ewing Address:Unknown When:12/09/2023 18:27:27 With:Linnea HACKETT Address: [address] [place] [phone] Business (1) When:Within 3 Day(s) [facility] 12-06-2023 Note ED Patient Education Note Pulmonary [...] these instructions at home: Medicines ? Take khhz-jxe-zxpiyvt and prescription medicines only as told by [...] Keep all follo (more content not included)... [facility] 12-06-2023 Evaluation + Plan note Extrac kiki from: Title:ED Note Author:Juliet HILLMAN, Julio Maravilla te:12/06/23 Chest pain (R07.9: Chest natasha n, [...] Saturation PT & PTT Rapid COVID Antigen ([facility]) Saline Lock Insert Troponin 0 Hr. Troponin 1 Hr. XR Chest Single View [facility] 08-02-2024 Evaluation + Plan noteExtracted from: Title:ED Note Author:Santos Booker DO Date:10/12 Neck strain (S16.1XXA: Strai n of muscle, fascia and tendon at neck level, initial encounter) Pneumonia (J18.9: Pneumonia, unspecified organism) Orders: albuterol-ipratropium, 3 mL, Soln-Inh, Inhalation, Once, Stop date 10/13/23 8:08:00 EDT, STAT, Start date 10/13/23 8:08:00 EDT dextromethorphan-promethazine, 5 mL, Oral, q6hr for cough, 120 mL, Refill(s) 0, [facility]/pharmacy #[id number], 173, cm, 10/13/23 7:45:00 EDT, Height/Length Dosing, 124.7, kg, 10/13/23 7:45:00 EDT, Weight Dosing doxycycline, 100 mg = 1 tab(s), Oral, BID, X 7 day(s), # 14 tab(s), Refills(s) 0, Pharmacy: [facility]/pharmacy #[id number], 173, cm, 10/13/23 7:45:00 EDT, Height/Length Dosing, 124.7, kg, 10/13/23 7:45:00 EDT, Weight Dosing methocarbamol, 750 mg = 1 tab(s), Oral, TID, X 7 day(s), # 21 tab(s), Refills(s) 0, Pharmacy: [facility]/pharmacy #[id number], 173, cm, 10/13/23 7:45:00 EDT, Height/Length Dosing, 124.7, kg, 10/13/23 7:45:00 EDT, Weight Dosing predniSONE, 3, Oral, Daily, # 15 tab(s), Refills(s) 0, Pharmacy: [facility]/pharmacy #[id number], 173, cm, 10/13/23 7:45:00 EDT, Height/Length Dosing, 124.7, kg, 10/13/23 7:45:00 EDT, Weight Dosing XR Chest 2 Views [facility] 08-02-2024 Hospital Discharge instructions Follow Up Care 10/13/2023 07:41:30 With:Linnea HACKETT Address: [address] [place] [address] [place] [address]- Business (1) When:Within 3 Day(s) [facility] 03-15-2024 Evaluation + Plan noteExtracted from: Title:ED Note Author:Jean Bullard DO Date :05/26/23 Acute URI (J06.9: Acute uppe r respiratory infection, unspecified) N&V (nausea and vomiting) (R11.2: Nausea with vomiting, unspecified) Orders: albuterol-ipratropium, 3 mL, Soln-Inh, Inhalation, Once, Stop date 05/25/23 23:23:00 EDT, STAT, Start date 05/25/23 23:23:00 EDT brompheniramine/dextromethorphan/PSE, 5 mL, Oral, QID for cold symptoms, 200 mL, Refill(s) 0, [id number], 173, cm, 05/25/23 22:46:00 EDT, Height/Length [...] q8hr, # 12 tab(s), Refills(s) 0, Pharmacy: [facility]/pharmacy #[id number], 173, cm, 05/25/23 22:46:00 EDT, Height/Length [...] Therapy PT & PTT Rapid COVID Antigen ([facility]) Rapid Strep w/rfx Saline Lock Insert Troponin 0 Hr. XR Chest Single View [facility]03-15-2024 Hospital Discharge instructions Patient Education 05/26/2023 01:33:30 Upper Respiratory Infection, Adult, Mlmn-mt-Mqgy Upper Respiratory Infection, Adult An upper respiratory [...] medicines to help relieve symptoms, such as: Swgb-bke-dzajcxv cold medicines. Medicines to reduce coughing (cough [...] and other clear broths. General instructions Take bkso-dre-alrejpm and prescription medicines only as told by [...] cannot use soap and water, use hand resource forester. Avoid touching your mouth, face, eyes, or [...] get better within 7 10 days. Take oxmx-ruv-xdknfik and prescription medicines only as told by your doctor. This information is not intended to replace advice given to you by your health care provider. Make sure you discuss any questions you have with your health care provider. Document Revised: 09/29/2021 Document Reviewed: 09/29/2021 [email or web address] Patient Education 2022 [employer]. 05/26/2023 01:33:30 Nausea and Vomiting, Adult, Cphl-hw-Jbrs Nausea and Vomiting, Adult Nausea is feeling [...] fruit juice). ?Low-calorie sports drinks. Eat bland, soml-gn-aqxvoy foods in small amounts as you are able, such as: ?Bananas. ?Applesauce. ?Rice. ?Low-fat (lean) meats. ?Mcdermott. ?Crackers. Avoid drinking fluids that have a lot of sugar or caffeine in them. This includes energy drinks, sports drinks, and soda. Avoid alcohol. Avoid spicy or fatty foods. General instructions Take rues-zro-dotyrgg and prescription medicines only as told by your doctor. Drink enough fluid to keep your pee (urine) pale yellow. Wash your hands often with soap and water for at least 20 seconds. If you cannot use soap and water, use hand resource forester. Make sure that everyone in your home [...] your doctor about eating and drinking. Take frvp-ite-crhuxxa and prescription medicines only as told by your doctor. Contact your doctor if your symptoms get worse or you have new symptoms. Keep all follow-up visits. This information is not intended to replace advice given to you by your health care provider. Make sure you discuss any questions you have with your health care provider. Document Revised: 09/03/2021 Document Reviewed: 09/03/2021 [email or web address] Patient Education 2022 [employer]. Follow Up Care 05/25/2023 22:37:43 With:Linnea HACKETT Address: [facility] [place] [address] Business (1) When:05/29/2023 Comments:You can use the Bromfed, Zofran every 6 hours as needed for cough, nausea and vomiting. Please follow-up with your primary care doctor in the next 2 to 3 days for further evaluation management. Please return to the ED for any new or worsening symptoms. [facility]02-06-2024 History of Present illness Narrative* DARIN Mclean - 04/18/2023 1:30 PM EST Telehealth Encounter: Verbal consent was obtained from patient for Telehealth Services. Patient Location ([place]) Adina Martinez is a 28 y.o. female presents with chief complaint of No chief complaint on file. HPI: HPI Patient states that she is here for follow up. 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/HCC) - Primary Relevant Orders Ambulatory referral to Neurology Sarcoma ([facility]) Relevant Orders Ambulatory referral to Neurology [id number] History of Present illness Narrative* Chapito Dean RT(Issa) - 02/23/2023 3:00 PM EST Radiology Service [...] Exam(s) Completed: Body: Liver (routine) SIGNATURE: RT Aristeo(R) PATIENT NAME: Adina Martinez DATE: February 23, 2023 TIME: 2:53 PM [facility] History of Present illness Narrative* Osiris [...] 2023 TIME: 1:54 PM [facility] Evaluation + Plan note Extracted from: Title:ED Note Author:Héctor Christianson DO Date :02/14/23 AP (abdominal pain) (R10.9: Unspecified abdominal pain) Orders: dicyclomine, 10 mg = 1 cap(s), Oral, QID, X 7 day(s), # 28 cap(s), Refills(s) 0, Pharmacy: [facility]/pharmacy #[id number], 173, cm, 02/14/23 2:34:00 EST, Height/Length Dosing, 119.3, kg, 02/14/23 2:34:00 EST, Weight Dosing famotidine, 20 mg = 1 tab(s), Oral, Daily, X 7 day(s), # 7 tab(s), Refills(s) 0, Pharmacy: [facility]/pharmacy #[id number], 173, cm, 02/14/23 2:34:00 EST, Height/Length [...] Future Scheduled Tests Laboratory* Lipid Panel 02/22/22 [facility]12-05-2023 Hospital Discharge instructions Patient Education 02/14/2023 07:14:20 [...] Follow these instructions at home: Medicines Take hakf-rjs-ripoiue and prescription medicines only as told by [...] Watch your condition for any changes. Take sbqr-zxp-vodkkvv and prescription medicines only as told by [...] provider. Document Revised: 04/17/2020 Document Reviewed: 07/08/2019 [email or web address] Patient Education 2022 [employer]. Follow Up Care 02/14/2023 02:28:51 With:Linnea HACKETT Address: [address] [place] [phone] Business (1) When:Within 3 Day(s) [facility]11-29-2023 Miscellaneous Notes* Telephone Encounter - Maddi Ochoa RN - 02/08/2023 11:29 AM EST Note and orders faxed as requested. Maddi Ochoa RN, BSN Specialty Freelance Writer * Telephone Encounter - Wisnome Blanc - 02/06/2023 1:09 PM EST Adina Martinez('s) is calling Jacqueline Sharma MD today regarding Freelance Writer - Other (Need office note from 02/[address] Sharma) Anne Marie from Dr. Godwin's office called requesting the office note from 02/03 visit. The note needs to be completed. Once completed, the note will be faxed to [phone] Patient has been identified by name and birthdate. Requesting response back: [phone] (home) [phone] (cell) Winsome Guanaco February 06, 2023 [facility] History of Present illness Narrative* Jacqueline Sharma MD - 02/08/2023 10:24 AM EST This consult was requested by Dr. Gabe Godwin for an opinion regarding systemic treatment options for a resected tumor from the abdominal wall and my final recommendations will be communicated to the requesting health care provider by way of a the shared electronic medical record or a letter viathe [employer]. HISTORY OF PRESENT ILLNESS: Ms. [...] resection. Pathology has been reviewed here at [facility] without inability to determine a precise [...] Mclean, PA-C [address] [place] [address] Gabe Godwin [address] [place] [address] [address] [facility] [id number] [facility] History of Present illness Narrative* Leonardo [...] (directly reviewed) which was notable for a ~56t96mv mass in the right lower abdominal wall (deep to Scarpas) abutting the anterior sheath of the rectus muscle. She was taken to the OR in December 2022 for resection, per the operative report it was a piecemeal resection. 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 [facility]* Brooke Garrett RN - 02/03/2023 7:55 AM EST Additional intake questions: Has the patient had fever, nausea, vomiting, diarrhea, constipation, fatigue for > 1 week? Yes, fatigue and migrains Does the patient have a decreased appetite? No Does patient want to see a Tool Mechanic? No (yes to any of above refer patient to schedulers for dietitian appointment) ) Does patient have any new or increased numbness or tingling of extremities? No Is patient interested in fertility information? No Does patient need any prescription refills? No Does patient have an advanced directive in place? No, Patient referred to [facility] Hospital Discharge instructions Patient Education 12/26/2022 [...] Follow these instructions at home: Medicines Take hiwv-kri-fzmwzrm and prescription medicines only as told by [...] (atelectasis). You may be given a medical malpractice paralegal (incentive spirometer) to help exercise your lungs [...] provider. Document Revised: 04/02/2020 Document Reviewed: 04/02/2020 [email or web address] Patient Education 2022 [employer]. 12/26/2022 18:20:38 Nonspecific Chest Pain, Adult Nonspecific [...] Follow these instructions at home: Medicines Take rrtt-kba-lvmqxja and prescription medicines only as told by [...] provider. Document Revised: 05/13/2021 Document Reviewed: 05/13/2021 [email or web address] Patient Education 2022 [employer]. Follow Up Care 12/26/2022 14:50:27 With:Linnea HACKETT Address: [address] [place] [phone] Business (1) When:12/29/2022 17:49:27 [facility]10-16-2023 Evaluation + Plan noteExtracted from: Title:ED Note [...] BID, # 20 tab(s), Refills(s) 0, Pharmacy: [facility]/pharmacy #[id number], 170, cm, 12/26/22 14:57:00 EDT, Height/Length [...] Date:12/30/2022 03:00:00 PM Scheduled Provider:Gabe GODWIN MD Location:[facility] Appointment Type: Post Op 15 Future Scheduled Tests Laboratory* Lipid Panel 02/22/22 [facility]10-12-2023 NotePatient: ADINA MARTINEZ Age: 27 years Sex: Female : 1995 Associated Diagnoses: None Author: Gabe GODWIN MD Subjective no changes to & [facility] HospitalComment on above:Result Comment: Electronically Signed By: Gabe GODWIN MD\.br\Date and Time Signed: 12/22/22 08:31 [id number]:127 [facility]09-29-2023 NoteChief Complaint consultation for abdominal pain/mass HPI Staff 27 year old female presents on consultation from Ngoc Hackett for abdominal pain/mass. Presented to [facility] 11/18 with complaint of right flank [...] patient had evaluation for abd pain at [facility] 3 weeks ago, abd/pelvic ct scan [...] 04/17/2020 Recorded SARS-CoV-2 (COVID-19) mRNA-1273 vaccine 03/20/2020 RecordedSt[facility] Of [facility] HospitalComment on above:Result Comment: Electronically Signed By: Gabe GODWIN MD\Date and Time Signed: 12/09/22 10:04 [id number] Hospital Discharge instructions Patient Education 10/14/2022 17:44:52 [...] your health care provider. Apply or take guky-sfb-mrujvmd and prescription medicines only as told by [...] provider. Document Revised: 12/20/2020 Document Reviewed: 12/22/2020 [email or web address] Patient Education 2022 [employer]. Follow Up Care 10/14/2022 16:24:03 With:Linnea HACKETT Address: [place] [address] Business (1) When:10/17/2022 17:34:38 [facility]08-04-2023 Evaluation + Plan noteExtracted from: Title:ED Note [...] day(s), # 15 tab(s), Refills(s) 0, Pharmacy: [facility]/pharmacy #[id number], 172, cm, 10/14/22 16:35:00 EDT, Height/Length Dosing, 122.5, kg, 10/14/22 16:35:00 EDT, Weight Dosing Future Scheduled Tests Laboratory* Lipid Panel 02/22/22 [facility]08-03-2023 Evaluation + Plan note Diagnostic Tests Pending * FSH and LH 10/13/22 * DHEAS 10/13/22 * DHEA 10/13/22 Future Scheduled Tests Laboratory* Lipid Panel 02/22/22 [facility]01-10-2023 Evaluation note* Encounter Date Diagnosis Assessment Notes [...] R05.9) covid and flu neg, see above. [employer] Other 12-13-2022 Evaluation + Plan note Future Scheduled Tests Laboratory* Lipid Panel 02/22/22 Radiology* NM Myocardial Spect Rest/Stress 1 Day 02/22/22 * Echo Transthoracic Complete 02/22/22 [facility]12-13-2022 Evaluation + Plan note Future Scheduled Tests Laboratory* Lipid Panel 02/22/22 [facility]10-25-2022 Evaluation + Plan noteExtracted from: Title:ED Note Author:Héctor Christianson DO Date :01/04/22 Anterior neck pain (M54.2: C ervicalgia) Orders: cyclobenzaprine, 10 mg = 1 tab(s), Oral, TID, PRN Muscle pain, # 20 tab(s), Refills(s) 0, Pharmacy: [id number], 174, cm, 01/04/22 0:47:00 EDT, Height/Length Dosing, 121.7, kg, 01/04/22 0:47:00 EDT, Weight Dosing Automated Diff Basic Metabolic Panel CBC w/ Auto Diff CT Soft Tissue Neck w/ Contrast eGFR TSH With T4fr Reflex [facility]10-25-2022 Hospital Discharge instructions Patient Education 01/04/2022 02:49:57 [...] exercise. Managing pain, stiffness, and swelling Take qbrz-uxi-eabfkxo and prescription medicines only as told by [...] 02/27/2006 Document Revised: 02/09/2018 Document Reviewed: 03/29/2017 [email or web address] Patient Education 2020 [employer]. Follow Up Care 01/04/2022 00:38:27 With:Linnea HACKETT Address: [address] [place] [phone] Business (1) When:Within 3 Day(s) [facility]09-16-2022 Hospital Discharge instructions Patient Education 11/26/2021 20:55:46 [...] Slowly return to your usual activities. Take ctok-dyf-yzbeecp and prescription medicines only as told by [...] 11/22/2001 Document Revised: 07/30/2018 Document Reviewed: 07/30/2018 [email or web address] Patient Education 2020 [employer]. 11/26/2021 20:55:46 Nonspecific Chest Pain, Adult Nonspecific [...] Follow these instructions at home: Medicines Take ollj-sky-rhtsyiy and prescription medicines only as told by [...] 12/07/2005 Document Revised: 08/30/2018 Document Reviewed: 08/30/2018 [email or web address] Patient Education 2020 [email or web address] 11/26/2021 20:55:46 Cough, Adult Cough, Adult Coughing [...] Follow these instructions at home: Medicines Take fdvf-qxb-jofwlae and prescription medicines only as told by [...] of a condition that needs treatment. Take aaiw-fdm-fgjrddr and prescription medicines only as told by [...] 08/26/2011 Document Revised: 03/18/2019 Document Reviewed: 03/18/2019 [email or web address] Patient Education 2020 [employer]. 11/26/2021 20:55:46 COVID-19: How to Protect Yourself and Others - [facility] COVID-19: How to Protect Yourself and Others Know how it spreads There is currently no vaccine to prevent coronavirus disease 2019 (COVID-19). The best way to prevent illness is to avoid being exposed to this virus. The virus is thought to spread mainly from lpzzsv-te-pqijuc. ?Between people who are in close contact [...] are not readily available, use a hand resource forester that contains at least 60% alcohol. Cover [...] at higher risk of getting very sick.www.cdc.gov/cor onavirus/2019-ncov/zsne-vxbxx-awoymyeuvqw/kmgvid-pp-mbhebf-risk.html Cover your mouth and nose with a [...] available, clean your hands with a hand resource forester that contains at least 60% alcohol. Clean and disinfect Clean AND disinfect frequently touched surfaces daily. This includes tables, doorknobs, light switches, countertops, handles, desks, phones, keyboards, toilets, faucets, and sinks. www.cdc.gov/coronav irus/2019-ncov/zpzoxxv-fgqnsmo-awad/yxiagpwparja-chua-miwj.html If surfaces are dirty, clean them: Use [...] 06/25/2019 Document Revised: 09/19/2019 Document Reviewed: 09/19/2019 [employer] Patient Education 2019 [email or web address] 11/26/2021 20:55:46 COVID-19 Frequently Asked Questions [...] the coronavirus come from? In February 2019, [place] told the World Health Organization (WHO) of several cases of lung disease (human respiratory illness). These cases were linked to an open seafood and livestock market in the city of [facility]. The link to the seafood and [...] and virus naming World Health Organization (WHO): www.who.int/emergencies/diseases/jbqzc-gzlwgbqzidp-0361/technical-g uidance/zxpmiy-jvo-jbpblmvkvme-disease-(covid-2019)-ijl-qni-zsswi-djpx-hxlhqr-ry Who is at risk for complications from [...] relieve his or her symptoms by using uqew-gax-ymprowi medicines that treat sneezing, coughing, and runny [...] water are not available, use alcohol-based hand resource forester. Avoid touching your face, mouth, nose, or [...] Prevention (CDC): www.cdc.gov/coronavirus/2019-ncov/travelers/index.html World Health Organization (WHO): www.who.int/emergencies/diseases/wirpz-afgghwwauri-7138/travel-advice Know the risks and take action to [...] water are not available, use alcohol-based hand resource forester. Cough or sneeze into a tissue, sleeve, [...] in hot, soapy water or use a strategic marketing manager. Air-dry your dishes. Wash laundry in hot [...] Health Organization (WHO) Information and news updates: www.who.int/emergencies/diseases/nmvpy-nxkglutzcyv-1203 Coronavirus health topic: www.who.int/health-topics/coronavirus Questions and answers on COVID-19: www.who.int/news-room/q-a-detail/o-e-zjylvfanuoznu Global tracker: [employer] [place] [employer] (AAP) Information for families: www.healthychildren.org/Thai/health-issues/conditions/chest-lungs/Pages /0705-Yepoz-Ntwtzzayocz.aspx The coronavirus situation is changing rapidly. Check [...] 06/25/2019 Document Revised: 06/25/2019 Document Reviewed: 06/25/2019 [email or web address] Patient Education 2020 [employer]. 11/26/2021 20:55:46 COVID-19 COVID-19 COVID-19 is a [...] to fight infection (immunocompromised). Live in a care home or long-term care facility. Have a long-term [...] managed at home with rest, fluids, and gfdr-pzh-ubowhca medicines. Treatment for a serious infection usually [...] are safe for you. General instructions Take ncnm-yxv-aznyfdt and prescription medicines only as told by [...] water are not available, usean alcohol-based hand resource forester. ?Avoid touching your mouth, face, eyes, or [...] water are not available, use alcohol-based hand resource forester. Stay away from other members of your [...] have a weak immunity, live in a care home, or have chronic disease. There is no [...] 04/04/2019 Document Revised: 07/25/2019 Document Reviewed: 04/04/2019 [email or web address] Patient Education 2019 [employer]. Follow Up Care 11/26/2021 18:05:35 With:Nickolas Isaacs Address: [employer] [place] [phone] Business (1) When:11/29/2021 20:25:56 Comments:Follow-up with your primary care provider in 3 to 5 days. If symptoms worsen, do not improve, or new symptoms arise please report back to emergency department for further evaluation. [facility]09-15-2022 Hospital Discharge instructions Patient Education 11/24/2021 23:34:54 Shortness of Breath, Adult, Umvb-tl-Opyp Shortness of Breath, Adult Shortness of breath [...] Slowly return to your normal activities. Take mymx-asa-inngnqc and prescription medicines only as told by [...] 08/15/2008 Document Revised: 07/30/2018 Document Reviewed: 07/30/2018 [email or web address] Patient Education 2020 [employer]. 11/24/2021 23:34:54 Nonspecific Chest Pain, Adult, Dsxe-pe-Zvie Nonspecific Chest Pain Chest pain can be [...] Follow these instructions at home: Medicines Take aoko-ulg-gvqttkm and prescription medicines only as told by [...] ?Eating a heart-healthy diet. A diet and nutrition counselor (dietitian) can help you to learn healthy [...] 08/15/2008 Document Revised: 08/30/2018 Document Reviewed: 08/30/2018 [email or web address] Patient Education 2020 [employer]. 11/24/2021 23:34:54 COVID-19: How to Protect Yourself and Others - [facility] COVID-19: How to Protect Yourself and Others Know how it spreads There is currently no vaccine to prevent coronavirus disease 2019 (COVID-19). The best way to prevent illness is to avoid being exposed to this virus. The virus is thought to spread mainly from cycphv-pi-zjxrnj. ?Between people who are in close contact [...] are not readily available, use a hand resource forester that contains at least 60% alcohol. Cover [...] at higher risk of getting very sick.www.cdc.gov/cor onavirus/2019-ncov/melf-eyjuv-uejxjdtnpic/velett-bd-kssubp-risk.html Cover your mouth and nose with a [...] available, clean your hands with a hand resource forester that contains at least 60% alcohol. Clean and disinfect Clean AND disinfect frequently touched surfaces daily. This includes tables, doorknobs, light switches, countertops, handles, desks, phones, keyboards, toilets, faucets, and sinks. www.cdc.gov/coronav irus/2019-ncov/qbpdmmm-beknhsp-axjv/xouysdtbsjpg-ggwy-wgzk.html If surfaces are dirty, clean them: Use [...] 06/25/2019 Document Revised: 09/19/2019 Document Reviewed: 09/19/2019 [email or web address] Patient Education 2019 [email or web address] 11/24/2021 23:34:54 COVID-19 Frequently Asked Questions [...] the coronavirus come from? In February 2019, [place] told the World Health Organization (WHO) of several cases of lung disease (human respiratory illness). These cases were linked to an open seafood and livestock market in the city of [facility]. The link to the seafood and [...] and virus naming World Health Organization (WHO): www.who.int/emergencies/diseases/yhjov-tgyratkfodg-3328/technical-g uidance/evnnbw-plg-vwkyvcbjqyj-disease-(covid-2019)-yhr-xlj-eyrrv-glqd-swwsfr-hn Who is at risk for complications from [...] relieve his or her symptoms by using qfqm-mmi-uasnpqo medicines that treat sneezing, coughing, and runny [...] water are not available, use alcohol-based hand resource forester. Avoid touching your face, mouth, nose, or [...] Prevention (CDC): www.cdc.gov/coronavirus/2019-ncov/travelers/index.html World Health Organization (WHO): www.who.int/emergencies/diseases/yiusg-qjmqtyzckiw-1692/travel-advice Know the risks and take action to [...] water are not available, use alcohol-based hand resource forester. Cough or sneeze into a tissue, sleeve, [...] in hot, soapy water or use a strategic marketing manager. Air-dry your dishes. Wash laundry in hot [...] Health Organization (WHO) Information and news updates: www.who.int/emergencies/diseases/xskrg-uihusbbxqdi-0992 Coronavirus health topic: www.who.int/health-topics/coronavirus Questions and answers on COVID-19: www.who.int/news-room/q-a-detail/x-t-jkdvrxtnnwdva Global tracker: [employer] [place] [employer] (AAP) Information for families: www.healthychildren.org/Thai/health-issues/conditions/chest-lungs/Pages /8805-Eugjb-Ocxxjuhvjaf.aspx The coronavirus situation is changing rapidly. Check [...] 06/25/2019 Document Revised: 06/25/2019 Document Reviewed: 06/25/2019 [email or web address] Patient Education 2019 [email or web address] 11/24/2021 23:34:54 COVID-19 COVID-19 COVID-19 is [...] to fight infection (immunocompromised). Live in a care home or long-term care facility. Have a long-term [...] managed at home with rest, fluids, and kimq-qgs-ktyeazc medicines. Treatment for a serious infection usually [...] are safe for you. General instructions Take maut-tjt-xjkhgfa and prescription medicines only as told by [...] water are not available, usean alcohol-based hand resource forester. ?Avoid touching your mouth, face, eyes, or [...] water are not available, use alcohol-based hand resource forester. Stay away from other members of your [...] have a weak immunity, live in a care home, or have chronic disease. There is no [...] 04/04/2019 Document Revised: 07/25/2019 Document Reviewed: 04/04/2019 [email or web address] Patient Education 2020 [employer]. Follow Up Care 11/24/2021 21:32:05 With:Nickolas Isaacs Address: [address] [place] [phone] Business (1) When:11/27/2021 Comments:Follow-up with your primary care provider in 3 to 5 days. If symptoms worsen, do not improve, or new symptoms arise please report back to emergency department for further evaluation. Continue to takeyour inhaler and nausea medication, as well as Tylenol and ibuprofen to deal with your symptoms. [facility]09-14-2022 Evaluation + Plan noteExtracted from: Title:ED Note Author:Paulie HILLMAN, Laurent Maravilla te:11/24/21 COVID (U07.1: COVID-19) Dyspnea (R06.00: Dyspnea, [...] day(s), # 20 tab(s), Refills(s) 0, Pharmacy: [facility], 172.7, cm, 11/24/21 21:47:00 EDT, Height/Length Dosing, 120.5, kg, 11/24/21 21:47:00 EDT, Weight Dosing Automated Diff Basic Metabolic Panel CBC w/ Auto Diff ED Cardiac Monitoring eGFR Oxygen Saturation PT & PTT Saline Lock Insert Troponin 0 Hr. Troponin 3 Hr. Troponin 6 Hr. Troponin 9 Hr. XR Chest Single View [facility]09-13-2022 Evaluation note* Encounter Date Diagnosis Assessment Notes Treatment Notes Treatment Clinical Notes Nov, Contact with and (suspected) exposure to covid-19 (ICD-10 - Z20.822) covid pos, see above. Nov, COVID (ICD-10 - U07.1) Informed pt of POS covid test. They are to contact the covid employee hotline regarding quarantine and RTW instructions. Pt understood and agreed to tx plan. [employer] Other 2020 Evaluation + Plan note Future Appointments Appointment Date:03/31/2022 01:00:00 PM Scheduled Provider: Location:[facility] Appointment Type:CV Echo (FT) Appointment Date:03/31/2022 02:45:00 PM Scheduled Provider: Location:[facility] Appointment Type:CV Stress (FT) Appointment Date:04/04/2022 03:45:00 PM Scheduled Provider:Leonardo Bates MD Location:[facility] Appointment Type:Cardiology Follow Up (FT) Diagnostic Tests Pending * Respiratory Panel by PCR 03/22/22 * Sputum Culture 03/22/22 Future Scheduled Tests Laboratory* Lipid Panel 02/22/22 Radiology* Echo Transthoracic Complete 03/31/22 * ECG Stress Exercise 03/31/22 [facility]2020 Evaluation + Plan note Future Appointments Appointment Date:03/31/2022 01:00:00 PM Scheduled [facility]: [facility] Type:[facility] Echo (FT) Appointment Date:03/31/2022 02:45:00 PM Scheduled Provider: [facility] Type:CV Stress (FT) Appointment Date:04/04/2022 03:45:00 PM Scheduled Provider:Leonardo Bates MD [facility] Type:Cardiology Follow Up (FT) Future Scheduled Tests Laboratory* Lipid Panel 02/22/22 Radiology* Echo Transthoracic Complete 03/31/22 * ECG Stress Exercise 03/31/22 [facility] Future Appointments Appointment Date:03/24/2022 10:45:00 AM Scheduled Provider: [facility] App[facility] Type:NM Myocard Spect Multi Rest/Stress-Res Appointment Date:03/24/2022 11:45:00 AM Scheduled Provider: [facility] Type:NM Myocard Spect Multi Rest/Stress - R Appointment Date:03/31/2022 08:30:00 AM Scheduled Provider: [facility] App[facility] Type:NM Myocard Spect MultiRest/Stress-Stre Appointment Date:03/31/2022 09:30:00 AM Scheduled Provider: [facility] App[facility] Type:NM Myocard Spect Multi Rest/Stress - S Appointment Date:03/31/2022 01:00:00 PM Scheduled Provider: [facility] Type:CV Echo (FT) Appointment Date:04/04/2022 03:45:00 PM Scheduled Provider:Leonardo Bates MD [facility] Type:Cardiology Follow Up (FT) Future Scheduled Tests Laboratory* Lipid Panel 02/22/22 Radiology* NM Myocardial Spect Rest/Stress 1 Day 02/22/22 * Echo Transthoracic Complete 03/31/22 * NM Myocardial Spect Rest/Stress 2 Day 03/24/22 [facility] Future Appointments Appointment Date:12/12/2022 02:30:00 PM Scheduled Provider: Location:[facility] Appointment Type:Surgical PAT FT Appointment Date:12/22/2022 09:00:00 AM Scheduled [facility]: [facility] Type:[facility]gery FT Future Scheduled Tests Laboratory* Lipid Panel 02/22/22 [facility] [place] Evaluation noteNo assessment information available [facility] Work Phone: Evaluation note* Diagnosis 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, soft tissue, and skin [facility] History of sarcoma of soft tissue- Primary Personal history of malignant neoplasm of other site Family history of cancer Family history of unspecified malignant neoplasm [facility] Diagnosis Intractable chronic migraine without aura and without status migrainosus (CMS/HCC)- Primary 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, site unspecified [facility] Diagnosis Soft tissue tumor Neoplasm of unspecified nature of bone, soft tissue, and skin [facility]* Diagnosis History of sarcoma of soft tissue Personal history of malignant neoplasm of other site Family history of cancer Family history of unspecified malignant neoplasm [facility]* Diagnosis Acquired hypothyroidism (CMS/HCC)- Primary Unspecified [...] of right ear documented in this encounter [facility]* Diagnosis Acquired hypothyroidism (CMS/HCC)- Primary [...] without complication (CMS/HCC) documented in this encounter [facility]* Diagnosis Acquired hypothyroidism (CMS/HCC)- Primary [...] (CMS/HCC) Unspecified hypothyroidism [facility] Diagnosis Acquired hypothyroidism (CMS/HCC)- Primary [...] Primary Unspecified hypothyroidism documented in this encounter [facility]* Diagnosis Postural orthostatic tachycardia syndrome (POTS)- Primary Syncope, unspecified syncope type Hypothyroidism, unspecified type BMI 40.0-44.9, adult (Multi) Never smoked tobacco Morbid obesity (Multi) Morbid obesity documented in this encounter [facility] Work Phone: Evaluation note* Diagnosis Acquired hypothyroidism [...] Abdominal pain, epigastric [facility] Diagnosis Syncope, unspecified syncope type documented in this encounter [facility] Work Phone: Evaluation note* Diagnosis Nausea and vomiting, unspecified vomiting type Abdominal bloating Flatulence, eructation, and gas pain Epigastric pain Abdominal pain, epigastric [facility]* Diagnosis POTS (postural orthostatic tachycardia syndrome) Unspecified tachycardia Postural orthostatic tachycardia syndrome (POTS) Acquired hypothyroidism Unspecified hypothyroidism Type 2 diabetes mellitus without complication, without long-term current use of insulin Never smoked tobacco BMI 40.0-44.9, adult (Multi) documented in this encounter [facility] Work Phone: Evaluation note* Diagnosis Dyspepsia Dyspepsia and other specified disorders of function of stomach [facility] Diagnosis Nausea and vomiting, unspecified vomiting type- Primary [facility] Diagnosis Acquired hypothyroidism- Primary Unspecified hypothyroidism [...] health care facility [facility] Diagnosis Acquired hypothyroidism- Primary Unspecified hypothyroidism [...] and development [facility] Diagnosis Acquired hypothyroidism- Primary Unspecified hypothyroidism [...] medical examination at a health care facility Cervical radiculopathy- Primary Brachial neuritis or radiculitis nos documented in this encounter [facility]* Diagnosis Nausea and vomiting, unspecified vomiting type [facility] Diagnosis Bloating- Primary Flatulence, eructation, and gas pain documented in this encounter [facility] general Narrative - Reported* Type Description Date Medical History [facility] Spotjournal Other Hospital course Narrative No data available for this section [facility] No data available for this section [facility] Discharge instructions Additional Instructions 1. No driving if taking narcotic pain medication. 2. No lifting more than 20 pounds for 2 weeks. 3. May shower.[facility] Work Phone: Progress note No data available for this section [facility] Rehabilitation[facility] for referral (narrative)* Consultation (Routine) - Pending Review Specialty Diagnoses / Procedures Referred By Linda desai Referred To Contact Neurology Diagnoses Intractable chronic migraine without aura and without status migrainosus (CMS/HCC) Sarcoma (CMS/HCC) Procedures TX OFFICE/OUTPATIENT [facility] 60 MINUTES Linnea Hackett PA [address] [place] [address] Deon Parra MD [address] [place] [address] Referral ID Status Reason Start Date Expiration Date Visits Requested Visits Authorized [id number] Pending Review Specialty Services Required 04/18/2023 10/15/2023 1 1 [facility]ative[facility]No reason for referral information [facility] Work Phone: Reason for visit Narrative* CV Imaging (Routine) - Authorized Specialty Diagnoses / Procedures Referred By Contac t Referred To Contact Cardiology Diagnoses Syncope, unspecified syncope type Procedures Transthoracic Echo Complete TX ECHO TTHRC R-T 2D W/WOM-MODE COMPL SPEC&COLR D Quique Vazquez MD [address] [address], [address] [address] Phone: tel: fax: Referral ID Status Reason Start Date Expiration Date Visits Requested Visits Authorized [id number] Authorized Perform Procedure 05/09/2024 05/09/2025 1 1 [facility] Work Phone: Reason for visit Narrative* Outpatient Procedure (Routine) - Closed Specialty Diagnoses / Procedures Referred By Linda t Referred To Contact [facility] Diagnoses Nausea and vomiting, unspecified vomiting type Abdominal bloating Epigastric pain Procedures COLONOSCOPY DIAGNOSTIC COLONOSCOPY FLX DX W/COLLJ SPEC WHEN PFRMD Elijah, MAITE Solis.SMALL STOCK FACER [address] [place] [address] Phone: tel: fax: [facility] [address] [place] [address] Referral ID Status Reason Start Date Expiration Date V isits Requested Visits Authorized [id number] Closed Auto-Generate d Referral 07/30/2024 07/30/2025 1 1 [facility] for visit Narrative* Outpatient Procedure (Routine) - Closed Specialty Diagnoses / Procedures [facility] Referred To Contact [facility] Diagnoses Nausea and vomiting, unspecified vomiting type Procedures BREATH TEST GLUCOSE BREATH HYDROGEN/METHANE TEST Pack, APRN. KimberlySMALL STOCK FACER [address] [place] [address] Phone: tel: fax: [facility] [address] [place] [address] Referral ID Status Reason Start Date Expiration Date V isits Requested Visits Authorized [id number] Closed Auto-Generate d Referral 10/01/2024 10/01/2025 1 1 [facility] Summary Purpose Family History No Family History Records Found Relationship Condition Age at Onset Recorded Date/T [...] maternal grandmother Hepatic cirrhosis Unknown Advance Directives No Advanced Directives Records Found Advance Directive Response Recorded Date/ Time Advance [...] COMPUTED TOMOGRAPHY THORAX W/[place] [address] [place] [address] [place] [address] Referral ID Status Reason Start Date Expiration Date Visits Requested Visits Authorized [id number] Pending Review Auto-Generat ed Referral 02/15/2023 03/09/2024 1 1 Specialty Diagnoses / Procedures Referred By Contac t Referred To Contact Diagnoses History of sarcoma of soft tissue Family history of cancer Procedures CONSULT TO SOLID TUMOR GENOMICS CLINIC OFFICE/OUTPATIENT NEW HIGH MDM 60-[place] [address] [place] [address] Referral ID Status Reason Start Date Expiration Date Visits Requested Visits Authorized [id number] Authorized PCP Requested Referral 3 02/08/2024 1 1 Specialty Diagnoses / Procedures Referred By Contac t Referred To Contact MR IMAGING Diagnoses Soft tissue tumor Procedures MRI ABDOMEN WO/W IVCON MRI ABDOMEN W/O & W/CONTRAST MATERIAL Leonardo Bray MD [address] [place] [address] Mr Imaging [facility] Referral ID Status Reason Start Date Expiration Date Visits Requested Visits Authorized [id number] Pending Review Auto-Generat ed Referral 3 03/04/2024 1 1 Additional Source Comments INFORMATION SOURCE (unrecogn ized section and content) DATE CREATED AUTHOR 11/22/2020 [facility] DATE CREATED AUTHOR AUTHOR'S ORGANIZ ATION 07/11/2021 [facility] dical Specialist DATE CREATED AUTHOR AUTHOR'S ORGANIZ ATION 10/20/2023 Mackenzie Michael [facility] ical Center DATE CREATED AUTHOR AUTHOR'S ORGANIZ ATION 04/18/2024 [place] [facility] DATE CREATED AUTHOR AUTHOR'S ORGANIZ ATION 07/24/2024 [facility] DATE CREATED AUTHOR AUTHOR'S ORGANIZ ATION 09/14/2024 [facility] DATE CREATED AUTHOR AUTHOR'S ORGANIZ ATION 10/03/2024 [facility] DATE CREATED AUTHOR AUTHOR'S ORGANIZ ATION 10/25/2024 [facility] dical Specialists EPIC DATE CREATED AUTHOR AUTHOR'S ORGANIZ ATION 10/26/2024 Mackenzie Chowan [facility] ical Center DATE CREATED AUTHOR AUTHOR'S ORGANIZ ATION 11/01/2024 Mackenzie Michael [facility] ical Center DATE CREATED AUTHOR AUTHOR'S ORGANIZ ATION 11/06/2024 [facility] Care Teams (unrecognized sec tion and content) Team Status: Active Member Role Status Dates Nickolas Isaacs MD Primary Care Provider Active Team Status: Inactive Member Role Status Dates Nickolas Isaacs MD Primary Care Provider Active DO NISH Enrique Attending Provider Active Rn Stars Relationship Specialty Start Date End Date Linnea Hackett PA-C [address] [place] [address] PCP - General Family Medicine 02/03/23 Rn Stars Relationship Specialty Start Date End Date Linnea Hackett PA-C [address] [place] [address] PCP - General Family Medicine 02/03/23 Rn Stars Relationship Specialty Start Date End Date Linnea Hackett PA-C [address] [place] [address] PCP - General Family Medicine 02/03/23 Team [...] April 06, 2023 End: April 06, 2023 Rn Stars Relationship Specialty Start Date End Date Linnea Hackett PA [address] [place] [address] PCP - Medical [employer] 08/11/22 Nickolas Isaacs MD [address] [place] [address] PCP - General Family Medicine 09/28/22 Linnea Hackett PA [address] [place] [address] Physician Bookmobile Driver Family Medicine 09/28/22 Rn Stars Relationship Specialty Start Date End Date Linnea Hackett PA [address] [place] [address] PCP - Medical [facility] 08/11/22 Nickolas Isaacs MD [address] [place] [address] PCP - General Family Medicine 09/28/22 Linnea Hackett PA [address] [place] [address] Physician Bookmobile Driver Family Medicine 09/28/22 Team Status: Inactive Member Role Status Dates Linnea Hackett PA-C Primary Care Provider Active Start: September 21, 2023 End: September 21, 2023 Black Zaidi - [facility] , DO [facility] Attending Provider Active Start: September 21, 2023 End: September 21, 2023 Rn Stars Relationship Specialty Start Date End Date Linnea Hackett PA-C [address] [place] [address] PCP - General Family Medicine 02/03/23 [place] [address] [place] [address] Specialty Freelance Writer Hematology/Oncology 02/10/23 Rn Stars Relationship Specialty Start Date End Date Linnea Hackett PA-C [address] [place] [address] PCP - General Family Medicine 02/03/23 [place] [address] [place] [address] Specialty Freelance Writer Hematology/Oncology 02/10/23 Rn Stars Relationship Specialty Start Date End Date Nickolas Isaacs MD [address] [place] [address] PCP - General Family Medicine 09/28/22 Linnea Hackett PA [address] [place] [address] Physician Bookmobile Driver Family Medicine 09/28/22 Rn Stars Relationship Specialty Start Date End Date Nickolas Isaacs MD [address] [place] [address] PCP - General Family Medicine 09/28/22 Linnea Hackett PA [address] [place] [address] Physician Bookmobile Driver Family Medicine 09/28/22 Rn Stars Relationship Specialty Start Date End Date Nickolas Isaacs MD [address] [place] [address] PCP - General Family Medicine 09/28/22 Linnea Hackett PA [address] [place] [address] Physician Bookmobile Driver Family Medicine 09/28/22 Rn Stars Relationship Specialty Start Date End Date Nickolas Isaacs MD [address] [place] [address] PCP - General Family Medicine 09/28/22 Linnea Hackett PA [address] [place] [address] Physician Bookmobile Driver Family Medicine 09/28/22 Rn Stars Relationship Specialty Start Date End Date Nickolas Isaacs MD [address] [place] [address] PCP - General Family Medicine 09/28/22 Linnea Hackett PA [address] [place] [address] Physician Bookmobile Driver Family Medicine 09/28/22 Rn Stars Relationship Specialty Start Date End Date Nickolas Isaacs MD [address] [place] [address] PCP - General Family Medicine 09/28/22 Linnea Hackett PA [address] [place] [address] Physician Bookmobile Driver Family Medicine 09/28/22 Rn Stars Relationship Specialty Start Date End Date Linnea Hackett PA-C [address] [place] [address] PCP - General Internal Medicine 04/16/24 Rn Stars Relationship Specialty Start Date End Date Nickolas Isaacs MD [address] [place] [address] PCP - General Family Medicine 09/28/22 Linnea Hackett PA [address] [place] [address] Physician Bookmobile Driver Family Medicine 09/28/22 Rn Stars Relationship Specialty Start Date End Date Nickolas Isaacs MD [address] [place] [address] PCP - General Family Medicine 09/28/22 Linnea Hackett PA [address] [place] [address] Physician Bookmobile Driver Family Medicine 09/28/22 Rn Stars Relationship Specialty Start Date End Date Linnea Hackett PA-C [address] [place] [address] PCP - General Internal Medicine 04/16/24 Rn Stars Relationship Specialty Start Date End Date Nickolas Isaacs MD [address] [place] [address] PCP - General Family Medicine 09/28/22 Linnea Hackett PA [address] [place] [address] Physician Bookmobile Driver Family Medicine 09/28/22 Team Status: Inactive Member Role Status Dates Linnea Hackett PA-C Primary Care Pr ovider, Attending Provider Active Start: August 14, 2024 End: August 14, 2024 Rn Stars Relationship Specialty Start Date End Date Nickolas Isaacs MD [address] [place] [address] PCP - General Family Medicine 09/28/22 Linnea Hackett PA [address] [place] [address] Physician Bookmobile Driver Family Medicine 09/28/22 Rn Stars Relationship Specialty Start Date End Date Linnea Hackett PA-C [address] [place] [address] PCP - General Family Medicine 02/03/23 [place] [address] [place] [address] Specialty Freelance Writer Hematology/Oncology 02/10/23 Rn Stars Relationship Specialty Start Date End Date Linnea Hackett PA-C [address] [place] [address] PCP - General Internal Medicine 04/16/24 Rn Stars Relationship Specialty Start Date End Date Nickolas Isaacs MD [address] [place] [address] PCP - General Family Medicine 09/28/22 Linnea Hackett PA [address] [place] [address] Physician Bookmobile Driver Family Medicine 09/28/22 Team Status: Inactive Member [...] September 16, 2024 End: September 16, 2024 Rn Stars Relationship Specialty Start Date End Date Linnea Hackett PA-C [address] [place] [address] PCP - General Family Medicine 02/03/23 [place], [place] [address] [address] [place] [address] Specialty Freelance Writer Hematology/Oncology 02/10/23 Rn Stars Relationship Specialty Start Date End Date Linnea Hackett PA-C [address] [place] [address] PCP - General Family Medicine 02/03/23 [place] [address] [place] [address] Specialty Freelance Writer Hematology/Oncology 02/10/23 Team Status: Active Member Role Status Dates PHYSICIAN NO FAMILY Primary Care Provider Active Team Status: Inactive Member Role Status Dates PHYSICIAN NO FAMILY Primary Care Provider Active Start: October 02, 2024 End: October 02, 2024 Black Zaidi - [facility] , [facility] Attending Provider Active Start: October 02, 2024 End: October 02, 2024 Rn Stars Relationship Specialty Start Date End Date Nickolas Isaacs MD [address] [place] [address] PCP - General Family Medicine 09/28/22 Linnea Hackett PA [address] [place] [address] Physician Bookmobile Driver Family Medicine 09/28/22 Rn Stars Relationship Specialty Start Date End Date Nickolas Isaacs MD [address] [place] [address] PCP - General Family Medicine 09/28/22 Linnea Hackett PA [address] [place] [address] Physician Bookmobile Driver Family Medicine 09/28/22 Rn Stars Relationship Specialty Start Date End Date Linnea Hackett PA-C [address] [place] [address] PCP - General Family Medicine 02/03/23 [place] [address] [place] [address] Specialty Freelance Writer Hematology/Oncology 02/10/23 Rn Stars Relationship Specialty Start Date End Date Linnea Hackett PA-C [address] [place] [address] PCP - General Family Medicine 02/03/23 [place] [address] [place] [address] Specialty Freelance Writer Hematology/Oncology 02/10/23 Goals (unrecognized section and content) Goals may [...] Comments Consult Reason Comments Consult Reason Comments Freelance Writer - Other Need office not e from 02/[address] Sharma Reason Comments Radiology MRI Specialty Diagnoses / Procedures Referred By Contac t Referred To Contact MR IMAGING Diagnoses Soft tissue tumor Procedures MRI ABDOMEN WO/W IVCON MRI ABDOMEN W/O & W/CONTRAST MATERIAL Leonardo Bray MD [address] [place] [address] [place] [address] Referral ID Status Reason Start Date Expiration Date V isits Requested Visits Authorized [id number] Closed Auto-Generate d Referral 02/03/2023 03/04/2024 1 [address] Specialty Diagnoses / Procedures Referred By Contac t Referred To Contact CT IMAGING Diagnoses History of sarcoma of soft tissue Family history of cancer Procedures CT CHEST W IVCON DIAGNOSTIC COMPUTED TOMOGRAPHY THORAX W/[place] [address] [place] [address] [place] [address] Referral ID Status Reason Start Date Expiration Date V isits Requested Visits Authorized [id number] Closed Auto-Generate d Referral 02/15/2023 03/09/2024 1 [...] tachycardia Specialty Diagnoses / Procedures Referred By Contac t Referred To Contact Diagnoses Postural orthostatic tachycardia syndrome (POTS) Syncope, unspecified syncope type Procedures ECG 12 Lead Quique Vazquez MD [address] [place] [address], [address] [address] Phone: tel: fax: Referral ID Status Reason Start Date Expiration Date V isits Requested Visits Authorized [id number] Authorized 05/08/2024 05/08/2025 1 1 Reason Comments ER Follow-up Abdominal Pain Reason Comments Follow-up Tilt table Specialty Diagnoses / Procedures Referred By Contac t Referred To Contact Cardiology Diagnoses Syncope, unspecified syncope type Procedures Follow Up In Cardiology Quique Vazquez MD [address] [place] [address] Phone: tel: fax: Quique Vazquez MD [address] [place] [address] 2, [address] [address] Phone: tel: fax: Referral ID Status Reason Start Date Expiration Date V isits Requested Visits Authorized [id number] Authorized 05/08/2024 05/08/2025 1 1 Reason Comments Radiology NM Specialty Diagnoses / Procedures Referred By Contac t Referred To Contact MOLECULAR & FUNCTIONAL IMAGING Diagnoses Dyspepsia Nausea Procedures NM GASTRIC EMPTYING SOLID GASTRIC EMPTYING STUDY Elijah, MAITE Solis.[facility] [address] [place] [address] Phone: tel: fax: Molecular Imaging [address] [place] [address] Phone: tel: Referral ID Status Reason Start Date Expiration Date V isits Requested Visits Authorized [id number] Closed Auto-Generate d Referral 07/30/2024 08/29/2025 1 1 Reason Comments [facility] Visit Reason Comments Results Source Comments (unrecognize d section and content) In the event this informatio n is protected by the Federal Confidentiality of Alcohol and Drug Abuse Patient Records regulations: The Federal rules restrict any use of the information to criminally investigate or prosecute any alcohol or drug abuse patient.[facility] the event this information is protected by the Federal Confidentiality of Alcohol and Drug Abuse Patient Records regulations: The Federal rules restrict any use of the information to criminally investigate or prosecute any alcohol or drug abuse patient.[facility] the event this information is protected by the Federal Confidentiality of Alcohol and Drug Abuse Patient Records regulations: The Federal rules restrict any use of the information to criminally investigate or prosecute any alcohol or drug abuse patient.[facility] the event this information is protected by the Federal Confidentiality of Alcohol and Drug Abuse Patient Records regulations: The Federal rules restrict any use of the information to criminally investigate or prosecute any alcohol or drug abuse patient.[facility] the event this information is protected by the Federal Confidentiality of Alcohol and Drug Abuse Patient Records regulations: The Federal rules restrict any use of the information to criminally investigate or prosecute any alcohol or drug abuse patient.[facility] the event this information is protected by the Federal Confidentiality of Alcohol and Drug Abuse Patient Records regulations: The Federal rules restrict any use of the information to criminally investigate or prosecute any alcohol or drug abuse patient.[facility] the event this information is protected by the Federal Confidentiality of Alcohol and Drug Abuse Patient Records regulations: The Federal rules restrict any use of the information to criminally investigate or prosecute any alcohol or drug abuse patient.[facility] the event this information is protected by the Federal Confidentiality of Alcohol and Drug Abuse Patient Records regulations: The Federal rules restrict any use of the information to criminally investigate or prosecute any alcohol or drug abuse patient.[facility] the event this information is protected by the Federal Confidentiality of Alcohol and Drug Abuse Patient Records regulations: The Federal rules restrict any use of the information to criminally investigate or prosecute any alcohol or drug abuse patient.[facility] the event this information is protected by the Federal Confidentiality of Alcohol and Drug Abuse Patient Records regulations: The Federal rules restrict any use of the information to criminally investigate or prosecute any alcohol or drug abuse patient.[facility] the event this information is protected by the Federal Confidentiality of Alcohol and Drug Abuse Patient Records regulations: The Federal rules restrict any use of the information to criminally investigate or prosecute any alcohol or drug abuse patient.[facility] FOR RECORDS PERTAINING TO PATIENTS WHO [...] BE BASED ON THE PRIMARY CLINICAL RECORDS. [facility] [employer] [facility]. provides no warranty or guarantee of the accuracy or completeness of information in this document.
== END 2024-11-15 06:49 | disposition home or self-care (01) ==
LOC: US 06:48
PROVIDERS: PCP Physician Assistant; Visit Provider Obstetrics & Gynecology
DX: R14.0 Abdominal distension (gaseous) (principal); R10.2 Pelvic and perineal pain
CPT/HCPCS: 76830; 76856

== ENCOUNTER 2025-01-14 11:05 | Outpatient (OUT) | payer OTHER, SELFPAY ==
--- OUTSIDE RECORDS SUMMARY | 2025-01-14 11:07 | XMS_ITS | Clinical Summary ---
Author Organization [facility] Address [address] [place] [address] Phone Care Team Providers Care Demonstrator Knitting Name Role Phone Linnea Escalante PA-C Primary Care Provider [phone] Allergies No known active allergies Medications MedicationSigDispense QuantityRefillsLast FilledStart DateEnd DateStatus levothyroxine (Synthroid, Levoxyl) 112 mcg tablet Take 1 tablet (112 mcg) by mouth once daily in the morning. Take before meals. 5Active metFORMIN XR 500 mg 24 hr tablet Take 1 tablet (500 mg) by mouth once daily.5Active omeprazole (PriLOSEC) [address] capsule Take 1 capsule (20 mg) by mouth once daily./ctive metoprolol succinate XL (Toprol-XL) 50 mg 24 hr tablet Indications:Postural orthostatic tachycardia syndrome (POTS)Take 1 tablet (50 mg) by mouth once daily. Do not crush or chew. 90 tablet 7/ctive Active Problems ProblemNoted DateDiagnosed DateType 2 diabetes mellitus without complication, without long-term current use of kfilytr6909/12/2024MI 40.0-44.9, adult05/08/2024 Never smoked waideic3905/08/20246022Spsyebk36/26/5375Bobzlavtkeu58/26/2025Syncope 05/08/2024Postural orthostatic tachycardia syndrome (POTS)05/08/2024 Encounters DateTypeDepartmentCare OlnnYjnfxtbeeqc54/15/2025Telephone [facility] [address] [place] [phone] Kady Lutz, CONY Sweat Chloride Testing; CFTR Genetic Testingfrom Last 3 Months Immunizations ImmunizationAdministration DatesNext XbfWLV8406/30/2000,04/24/1996,1995, 1995,1995Flu vaccine (IIV4), preservative free *Check age/dose* 12/08/2022HPV, Pzbflfptcym23/20/2008Hepatitis B vaccine, 19 yrs and under (RECOMBIVAX, ENGERIX)1995,1995,1995HiB, uqiehbijfvw83/02/1997, 1995,1995,1995Influenza, seasonal, wowtmpoqfg52/01/2024MMR vaccine, subcutaneous (MMR II)06/30/2000,04/14/1996Polio, Euzzdtvnefr24/20/2001, 1995,1995,1995 Family History Medical HistoryRelationNameCommentsHypertensionFatherDiabetesMotherRelationName StatusCommentsFatherMother Social History Tobacco UseTypesPacks/DayYears UsedDateSmoking Tobacco: NeverSmokeless Tobacco: Never Tobacco Cessation:Counseling Given: Not Answered Alcohol UseStandard Drinks/WeekCommentsYes0 (1 standard drink = 0.6 oz pure alcohol)1-2 yearlyCommentsUnknownSex and Gender InformationValueDate RecordedSex Assigned at BirthNot on fileLegal HhsVdtmit47/04/2025 12:14 PM EST Gender IdentityNot on fileSexual OrientationNot on file Last Filed Vital Signs Vital SignReadingTime TakenCommentsBlood Kigqiynp323/72009/12/2024 8:51 AM EDT Yeekf0826/03/2025 8:51 AM EDTTemperature--Respiratory Rate--Oxygen Saturation-- Inhaled Oxygen Concentration--Yyvckt505 kg (277 lb)09/12/2024 8:51 AM EDTHeight 172.7 cm (5' 8 )09/12/2024 8:51 AM EDTBody Mass Index42.12009/12/2024 8:51 AM EDT Plan of Treatment DateTypeDepartmentCare Team (Latest Contact Info)Ueneqdegqlh59/19/2025 9:00 AM ESTClinical Support [facility] [address] [place] [phone] 01/29/2025 10:00 AM ESTMultidisciplinary Visit [facility] [address] [place] [address] [place] [address] [place] [address] 05/06/2025 8:50 AM ESTOffice Visit [facility] [address] [facility] [address] [place] [phone] Quique Vargas MD [address] [facility] [address] [place] [address] Health MaintenanceDue DateLast DoneCommentsDiabetes: Hemoglobin A1C1995 Diabetes: Urine Protein Qxvbrlwbr1995HIV Hgpfkidts1995Lipid Panel 1995TSH Level1995Diabetes: Retinopathy Lkilmyqts68/09/2005 DTaP/Tdap/Td Vaccines (6 - Tdap), 04/24/1996, 1995, Additional history existsHPV Vaccines (2 - 2-dose series) Hepatitis C Mbllcxtwl03/09/2013Pneumococcal Vaccine: Pediatrics and At-Risk Adult Patients (1 of 2 - PCV)2014Cervical Cancer Ciwxcrufx10/09/2016 HPV/Ijznbo9401/20/2016Pap Smear01/20/2016Influenza Vaccine (#1)2024 01/05/2024, 11/12/2023, 12/08/2022Yearly Adult Poqdgayo19/09/2023, 10/06/2023, 3COVID-19 Vaccine ( season)512/04/2020, 04/17/2020, 03/20/2020Zoster Vaccines (1 of 2)2045Hepatitis B Vaccines Aflkmpxjc46/08/1996, 1995, 1995HIB QlwaqeidSagzoauxe14/02/1997, 1995, 1995, Additional history existsIPV VaccinesCompleted 06/30/2000, 1995, 1995, Additional history existsMMR Vaccines Lurdfxzyx31/20/2001, 04/14/1996Hepatitis A VaccinesAged OutNo longer eligible based on patient's age to complete this topicMeningococcal VaccineAged OutNo longer eligible based on patient's age to complete this topicRotavirus Vaccines Aged OutNo longer eligible based on patient's age to complete this topic Insurance Care Teams Team MemberRelationshipSpecialtyStart DateEnd Date Linnea Escalante, KADY [address] [place] [address] PCP - GeneralInternal Medicine04/16/24
--- OUTSIDE RECORDS SUMMARY | 2025-01-14 11:07 | XMS_ITS | Encounter Summary ---
Author Organization [facility] Address [address] [facility] [place] [address] Care Team Providers Care Stitching Machine Operator Name Role Phone Linnea Escalante Unavailable [phone] Nickolas Isaacs MD Primary Care Provider [phone] Linnea Escalante Unavailable [phone] Encounter Details DateTypeDepartmentCare Team (Latest Contact Info)Vaekjdewlvk11/03/2024Clinisync Result Encounter [facility] External Department Unsolicited Mily Dailey, ARACELIS [address] [place], [place] [id number] Social History Tobacco UseTypesPacks/DayYears UsedDateSmoking Tobacco: NeverSmokeless Tobacco: NeverAlcohol UseStandard Drinks/WeekCommentsYes0 (1 standard drink = 0.6 oz pure alcohol)1-2 drinks of alcohol less than [id number] Health LiteracyAnswerDate RecordedHow often do you need to have someone help you when you read instructions, pamphlets, or other written material from your doctor or pharmacy? Never10/08/2024Humiliation, Afraid, Rape, and Kick questionnaireAnswerDate RecordedWithin the last year, have you been afraid of your partner or ex-partner?No10/08/2024Within the last year, have you been humiliated or emotionally abused in other ways by your partner or ex-partner?No10/08/2024 Within the last year, have you been kicked, hit, slapped, or otherwise physically hurt by your partner or ex-partner?No10/08/2024Within the last year, have you been raped or forced to have any kind of sexual activity by your part ner or ex-partner?No10/08/2024Social Connection and Isolation PanelAnswerDate RecordedIn a typical week, how many times do you talk on the phone with family, friends, or neighbors?More than three times a week10/08/2024How often do you get together with friends or relatives?Three times a week10/08/2024How often do you attend episcopalian or gnosticist services?1 to 4 times per year10/08/2024Do you belong to any clubs or organizations such as episcopalian groups, unions, fraIntacct or athletic groups, or school groups?No10/08/2024How often do you attend meetings of the clubs or organizations you belong to?Never10/08/2024re you , , , , never , or living with a partner?Never phgssoa4910/08/2024UDIT-CAnswerDate RecordedQ1: How often do you have a drink containing alcohol?Never10/08/2024Q2: How many drinks containing alcohol do you have on a typical day when you are drinking?Patient does not drink10/08/2024Q3: How often do you have six or more drinks on one occasion?Never10/08/2024Overall Financial Resource Strain (CARDIA)AnswerDate RecordedHow hard is it for you to pay for the very basics like food, housing, medical care, and heating?Somewhat hard10/08/2024PHQ-2AnswerDate RecordedPatient Health Questionnaire-2 Score0 12/20/2024[facility] [place] of Occupational Health - Occupational Stress QuestionnaireAnswerDate RecordedDo you feel stress - tense, restless, nervous, or anxious, or unable to sleep at night because yourmind is troubled all the time - these days?Only a bhemjt4210/08/2024Exercise Vital SignAnswerDate Recorded On average, how many days per week do you engage in moderate to strenuous exercise (like a brisk walk)?4 days10/08/2024On average, how many minutes do you engage in exercise at this level?40 min10/08/2024Hunger Vital SignAnswerDate RecordedWithin the past 12 months, you worried that your food would run out before you got the money to buymore.Never true10/08/2024Within the past 12 months, the food you bought just didn't last and you didn't have money to get more.Never true10/08/2024PRAPARE - TransportationAnswerDate RecordedIn the past 12 months, has lack of transportation kept you from medical appointments or from getting medications?No10/08/2024In the past 12 months, has lack of transportation kept you from meetings, work, or from getting things needed for daily living?No10/08/2024Housing Stability Vital SignAnswerDate RecordedIn the last 12 months, was there a time when you were not able to pay the mortgage or rent on time?No08/01/2022In the last 12 months, how many places have you lived?1 08/01/2022In the last 12 months, was there a time when you did not have a steady place to sleep or slept in [facility] (including now)?No08/01/2022Housing Stability Vital SignAnswerDate RecordedIn the last 12 months, was there a time when you were not able to pay the mortgage or rent on time?No10/08/2024In the past 12 months, how many times have you moved where you were living? At any time in the past 12 months, were you homeless or living in a custodial (including now)?No10/08/2024CommentsNoSex and Gender InformationValue Date RecordedSex Assigned at GjqlgNmszoo88/22/2023 4:36 PM EDTLegal SexFemale 05/25/2022 7:27 PM EDTGender YshccmxkPeecny40/15/2023 7:27 PM EDTSexual RwogguwrwiaObdldpbl72/24/2023 8:31 PM EDTCOVID-19 ExposureResponseDate Recorded In the last 10 days, have you been in contact with someone who was confirmed or suspected to have Coronavirus/COVID-19?No / Xoqlhy7002/13/2023 2:39 PM EST documented as of this encounter Functional Status * AUDIT-C ScoreAnswerDate of IkdchnpsqvPfouzq072/29/2025 10:37 AM EDTOANychlayla, Generic * Q1: How often do you have a drink containing alcohol?AnswerDate of Assessment HclvuaIazas19/29/2025 10:37 AM EDTOANychlayla, Generic * Q2: How many drinks containing alcohol do you have on a typical day when you are drinking?AnswerDate of AssessmentAuthorPatient does not drink10/08/2024 10:37 AM EDTOANychlayla, Generic * Q3: How often do you have six or more drinks on one occasion?AnswerDate of LiuqbtwzljKtebraMzhsk45/29/2025 10:37 AM EDTOANychlayla, Generic * Over the past 2 weeks, how often have you been bothered by any of the following problems?QuestionAnswerDate of AssessmentAuthorLittle interest or pleasure in doing thingsNot at all12/20/2024 8:04 AM Mago Morin MA Feeling down, depressed, or hopelessNot at all12/20/2024 8:04 AM Mago Morin MAPatient Health Questionnaire-2 Czoup296 8:04 AM Mago Morin MA documented as of this encounter Miscellaneous Notes * Result Encounter Note - Mily Dailey NP - 03/15/2023 11:59 PM EST No change since cta on 12/26. Does pt see pulmonology? documented in this encounter Plan of Treatment DateTypeDepartmentCare Team (Latest Contact Info)Bytgunmnqbl90/18/2026 8:30 AM EDTProcedure Visit [facility] [address] [place] [address] Db Keane DO [address] [place], [place] [id number] documented as of this encounter Procedures Procedure NamePriorityDate/TimeAssociated DiagnosisCommentsXR CHEST 2 VIEWS 03/15/2023 6:28 PM EST documented in this encounter Results * XR CHEST 2 VIEWS (03/15/2023 6:28 PM EST)Anatomical RegionLateralityModality OtherSpecimen (Source)Anatomical Location / LateralityCollection Method / VolumeCollection TimeReceived Time03/15/2023 6:28 PM EST Narrative 03/15/2023 6:56 PM EST Exam Date/Time: 03/15/2023 18:37 EST Reason for Exam: Cough Report IMPRESSION: ??NO EVIDENCE OF ACTIVE CARDIOPULMONARY DISEASE. EXAM: XR Chest 2 Views DATE: 03/15/2023 6:28 PM CLINICAL HISTORY: ??Cough. COMPARISON: Two-view chest 04/11/2022 and chest CTA 12/26/2022 . TECHNIQUE: Upright PA and lateral radiographs of the chest were obtained. FINDINGS: ?? There is no significant pulmonary infiltrate, cardiomegaly, pleural effusion, vascular congestion, pneumothorax, or displaced fractures identified. Numerous small radiodense BBs predominantly overlying the right thoracic inlet and a small calcified granuloma within the right lower lobe are again noted. Ordering Provider: , FINAL REPORT Dictated: ??03/15/2023 6:53 pm ? Anton Mcneill MD Signed (Electronic Signature): ??03/15/2023 6:53 pm Signed by: ??Anton Mcneill MD Transcribed by: ??DP ? Technologist: ??CNK Technical Comments Radiation Dose: Ka,r in mGy [...] in mGy = na DAP = na Authorizing ProviderResult TypeResult StatusDanielle J Dailey NPCLINISYNC IMAGING Final Result documented in this encounter Visit Diagnoses Not on filedocumented in this encounter Care Teams Team MemberRelationshipSpecialtyStart DateEnd Date Linnea Escalante PA [address] [place] [address] PCP - Medical [facility]08/12/2311 Nickolas Isaacs MD [address] [place] [address] [facility] - [facility] Linnea Escalante PA [address] [place] [address] Physician AssistantWestern [facility] Hospital Medicine09/28/22documented as of this encounter
--- OUTSIDE RECORDS SUMMARY | 2025-01-14 11:07 | XMS_ITS | Encounter Summary ---
Author Organization [facility] Address [address] [facility] [place] [address] Care Team Providers Care Brand Manager Name Role Phone Linnea Escalante Unavailable [phone] Nickolas Isaacs MD Primary Care Provider [phone] Linnea Escalante Unavailable [phone] Encounter Details DateTypeDepartmentCare Team (Latest Contact Info)Oltevcniqyw52/14/2023Clinisync Result Encounter [facility] External Department Unsolicited Provider, Generic External Data Social History Tobacco UseTypesPacks/DayYears UsedDateSmoking Tobacco: NeverSmokeless Tobacco: NeverAlcohol UseStandard Drinks/WeekCommentsYes0 (1 standard drink = 0.6 oz pure alcohol)1-2 drinks of alcohol less than [id number] Health LiteracyAnswerDate RecordedHow often do you need [...] times a week10/08/2024How often do you attend advent or cheondoism services?1 to 4 times per year10/08/2024Do you belong to any clubs or organizations such as advent groups, unions, fraNasuni or athletic groups, or school groups?No10/08/2024How often do you attend meetings of the clubs or organizations you belong to?Never10/08/2024re you , , , , never , or living with a partner?Never trplsxk2210/08/2024UDIT-CAnswerDate RecordedQ1: How often do you have a [...] and heating?Somewhat hard10/08/2024PHQ-2AnswerDate RecordedPatient Health Questionnaire-2 Score0 12/20/2024[facility] [place] of Occupational Health - Occupational Stress QuestionnaireAnswerDate RecordedDo you feel stress - tense, restless, nervous, or anxious, or unable to sleep at night because yourmind is troubled all the time - these days?Only a wzuopg8810/08/2024Exercise Vital SignAnswerDate Recorded On average, how many [...] steady place to sleep or slept in [facility] (including now)?No08/01/2022Housing Stability Vital SignAnswerDate RecordedIn the last 12 months, was there a time when you were not able to pay the mortgage or rent on time?No10/08/2024In the past 12 months, how many times have you moved where you were living? At any time in the past 12 months, were you homeless or living in a assisted (including now)?No10/08/2024CommentsNoSex and Gender InformationValue Date RecordedSex Assigned at KiaqvByrnhx88/22/2023 4:36 PM EDTLegal SexFemale 05/25/2022 7:27 PM EDTGender XmenvipnYpkiss22/15/2023 7:27 PM EDTSexual RkgfutwtxurJpntfwsb12/24/2023 8:31 PM EDTCOVID-19 ExposureResponseDate Recorded In the last 10 days, have you been in contact with someone who was confirmed or suspected to have Coronavirus/COVID-19?No / Hdkelq4802/13/2023 2:39 PM EST documented as of this encounter Functional Status * AUDIT-C ScoreAnswerDate of BlzpywopmaOidvmf302/29/2025 10:37 AM Miles Araujo * Q1: How often do you have a drink containing alcohol?AnswerDate of Assessment EfkpsgDxkhk68/29/2025 10:37 AM Gayle Generic * Q2: How many drinks containing alcohol do you have on a typical day when you are drinking?AnswerDate of AssessmentAuthorPatient does not drink10/08/2024 10:37 AM Gayle Generic * Q3: How often do you have six or more drinks on one occasion?AnswerDate of FlvzcmllijQnjrmpPrrqt55/29/2025 10:37 AM Gayle Generic * Over the past 2 weeks, how often have you been bothered by any of the following problems?QuestionAnswerDate of AssessmentAuthorLittle interest or pleasure in doing thingsNot at all12/20/2024 8:04 AM Mago Morin MA Feeling down, depressed, or hopelessNot at all12/20/2024 8:04 AM Mago Morin MAPatient Health Questionnaire-2 Oheob779 8:04 AM Mago Morin MA documented as of this encounter Plan of Treatment DateTypeDepartmentCare Team (Latest Contact Info)Ohjrwakrkvq99/18/2026 8:30 AM EDTProcedure Visit [facility] [address] [facility] [place] [address] Db Keane DO [address] [facility] [address] [place], [place] [id number] documented as of this encounter Procedures Procedure NamePriorityDate/TimeAssociated DiagnosisCommentsMRI ABDOMEN WO/W IVCON02/23/2023 3:32 PM EST documented in this encounter Results * MRI ABDOMEN WO/W IVCON (02/23/2023 3:32 PM EST)Anatomical RegionLaterality ModalityOtherSpecimen (Source)Anatomical Location / LateralityCollection Method / VolumeCollection TimeReceived Time02/23/2023 3:32 PM EST Narrative 02/23/2023 4:30 PM EST * * *Final Report* * * DATE OF EXAM: Feb 23 2023 ??3:32PM ?? NIM ?? [id number] ??- ??MRI ABDOMEN WO/W IVCON ??/ PROCEDURE REASON: [facility] referring - soft tissue mass, flank, deep ? 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 TECHNIQUE: Magnet: ??1.5T scanner. Multiplanar MRI of the abdomen with multiple sequences, including both pre- and post-contrast imaging, utilizing liver protocol. Contrast: Intravenous: ??19 ml of Dotarem COMPARISON: CT abdomen/pelvis 11/18/2022 RESULT: Liver: Normal morphology. ??Mild hepatic steatosis. ??No mass. Biliary: No intrahepatic or extrahepatic bile duct dilation. ??No biliary filling defect. ??Cholelithiasis. Spleen: No mass. No splenomegaly. Pancreas: No mass or duct dilation. Adrenals: No mass. Kidneys: ??No solid or cystic mass. ??No hydronephrosis. GI: No dilated bowel or wall thickening along imaged segments. Lymph nodes: No abdominal lymphadenopathy. Mesentery / Peritoneum / Retroperitoneum: No ascites or mass. Vasculature: ??The celiac axis and SMA are patent. The portal vein and branches, splenic vein, SMV, and hepatic veins are patent. Bones/Soft Tissues: Postoperative changes in the right mid ventral abdominal wall related to interval mass resection with linear T2 hypointense scarring. ??No residual mass or area of abnormal enhancement. Lower chest: Chest imaging performed will be reported separately. IMPRESSION: Postoperative changes in the right ventral abdominal wall without residual/recurrent mass. Mild hepatic steatosis. Transcribe Date/Time: Feb 23 2023 ??3:44P Dictated by: JESSICA BRIDGES, DO This examination was interpreted and the report reviewed and electronically signed by: PAULINE BAPTISTE MD on Feb 23 2023 ??4:28PM ??EST Thank you for allowing us to participate in the care of your patient. Should there be any questions regarding this interpretation, please call [phone]. If you are unable to reach us at the number above, please feel free to contact [facility] at [phone]. [id number]^AGFA_IDC^SI^ACN Procedure Note Radiology, Radiologist, - 02/24/2023 * * *Final Report* * * DATE OF EXAM: Feb 23 2023 3:32PM [facility] 0689 - MRI ABDOMEN WO/W IVCON / [...] any questions regarding this interpretation, please call [phone]. If you are unable to reach us at the number above, please feel free to contact [facility] at [phone]. [id number]^AGFA_IDC^SI^ACN Authorizing ProviderResult TypeResult StatusGeneric External Data Provider CLINISYNC IMAGINGFinal Result documented in this encounter Visit Diagnoses Not on filedocumented in this encounter Care Teams Team MemberRelationshipSpecialtyStart DateEnd Date Linnea Escalante PA [address] [place] [address] PCP - Medical [facility]08/12/2311 Nickolas Isaacs MD [address] [place] [address] PCP - GeneralFamily Medicine09/28/22 Linnea Escalante PA [address] [place] [address] Physician AssistantFamily Medicine09/28/22documented as of this encounter
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
--- OUTSIDE RECORDS SUMMARY | 2025-01-14 11:07 | XMS_ITS | Encounter Summary ---
Author Organization [facility] Address [address] [facility] [place] [address] Care Team Providers Care Interface Developer Name Role Phone Linnea Escalante Unavailable [phone] Nickolas Isaacs MD Primary Care Provider [phone] Linnea Escalante Unavailable [phone] Encounter Details DateTypeDepartmentCare Team (Latest Contact Info)Izgrfcpcjkf86/03/2024Clinisync Result Encounter [facility] External Department Unsolicited Deon Parra MD [address] [facility] [place] [address] Social History Tobacco UseTypesPacks/DayYears UsedDateSmoking Tobacco: NeverSmokeless Tobacco: NeverAlcohol UseStandard Drinks/WeekCommentsYes0 (1 standard drink = 0.6 oz pure alcohol)1-2 drinks of alcohol less than [id number] Health LiteracyAnswerDate RecordedHow often do you need [...] times a week10/08/2024How often do you attend yazidism or church services?1 to 4 times per year10/08/2024Do you belong to any clubs or organizations such as yazidism groups, unions, fraZoona or athletic groups, or school groups?No10/08/2024How often do you attend meetings of the clubs or organizations you belong to?Never10/08/2024re you , , , , never , or living with a partner?Never gpibqtq1810/08/2024UDIT-CAnswerDate RecordedQ1: How often do you have a [...] and heating?Somewhat hard10/08/2024PHQ-2AnswerDate RecordedPatient Health Questionnaire-2 Score0 12/20/2024[facility] [place] [facility] - Occupational Stress QuestionnaireAnswerDate RecordedDo you feel stress - tense, restless, nervous, or anxious, or unable to sleep at night because yourmind is troubled all the time - these days?Only a raiqhw1010/08/2024Exercise Vital SignAnswerDate Recorded On average, how many [...] steady place to sleep or slept in [facility] (including now)?No08/01/2022Housing Stability Vital SignAnswerDate RecordedIn the last 12 months, was there a time when you were not able to pay the mortgage or rent on time?No10/08/2024In the past 12 months, how many times have you moved where you were living? At any time in the past 12 months, were you homeless or living in a usp (including now)?No10/08/2024CommentsNoSex and Gender InformationValue Date RecordedSex Assigned at AnpmgKbkeoe14/22/2023 4:36 PM EDTLegal SexFemale 05/25/2022 7:27 PM EDTGender CdmbvuetGpakga89/15/2023 7:27 PM EDTSexual GkpawzgiznrBtphtvnu00/24/2023 8:31 PM EDTdocumented as of this encounter Functional Status * AUDIT-C ScoreAnswerDate of TolhbeedwvDyhucx991/29/2025 10:37 AM Miles Araujo * Q1: How often do you have a drink containing alcohol?AnswerDate of Assessment NxkcpzCkonp09/29/2025 10:37 AM EDVanda, Generic * Q2: How many drinks containing alcohol do you have on a typical day when you are drinking?AnswerDate of AssessmentAuthorPatient does not drink10/08/2024 10:37 AM EDTMychlayla, Generic * Q3: How often do you have six or more drinks on one occasion?AnswerDate of IbiyocurobXvupvbTzlnd40/29/2025 10:37 AM EDVanda, Generic * Over the past 2 weeks, how often have you been bothered by any of the following problems?QuestionAnswerDate of AssessmentAuthorLittle interest or pleasure in doing thingsNot at all12/20/2024 8:04 AM Mago Morin MA Feeling down, depressed, or hopelessNot at all12/20/2024 8:04 AM Mago Morin MAPatient Health Questionnaire-2 Jtado232 8:04 AM Mago Morin MA documented as of this encounter Plan of Treatment DateTypeDepartmentCare Team (Latest Contact Info)Citnodqdsfl09/18/2026 8:30 AM EDTProcedure Visit [facility] [address] [address] Db Keane DO [address] [place] [address] documented as of this encounter Procedures Procedure NamePriorityDate/TimeAssociated DiagnosisCommentsMRI BRAIN W/ + W/O ZIOMUSSF63/03/2024 7:50 AM EDT documented in this encounter Results * MRI BRAIN W/ + W/O CONTRAST (06/14/2023 7:50 AM EDT)Anatomical Region LateralityModalityOtherSpecimen (Source)Anatomical Location / Laterality Collection Method / VolumeCollection TimeReceived Time06/14/2023 7:50 AM EDT Narrative 06/15/2023 4:20 PM [...] migraine headaches or minimal microvascular ischemia. EXAMINATION: ??MRI Brain w/ + w/o Contrast HISTORY: ??G44.52 New daily persistent headache (NDPH), H81.4 TECHNIQUE: ??Routine brain MRI protocol without and with contrast including diffusion images. ?? CONTRAST: ??10 mL gadolinium (Vueway) COMPARISON: CT head 01/26/2023. RESULT: Acute Change: ?? There is no evidence of restricted diffusion to suggest an acute infarct. ?? Hemorrhage: ?No evidence of prior parenchymal hemorrhage. Mass Lesion/ Mass Effect: ?No evidence of an intracranial mass or extra- axial fluid collection. ??No abnormal parenchymal or leptomeningeal enhancement following contrast administration. ??No significant mass effect. Chronic Change: ??Few punctate foci of increased T2 and FLAIR signal are noted in the supratentorial white matter which is a nonspecific finding, but likely within normal limits for age, or could be seen with migraine headaches or minimal microvascular ischemia. Parenchyma: ?? No significant volume loss for age. ??The brain parenchyma is otherwise within normal limits of signal intensity and morphology. ?? Ventricles: ? Normal caliber and morphology. Skull Base: ?Hypothalamic and pituitary region are grossly normal. ?? Craniocervical junction is normal. No significant marrow replacement process. Vasculature: ?Major intracranial arterial structures, and dural venous sinuses show typical flow void, suggesting patency. ?? Report Other: ??The visualized paranasal are clear. ??Mastoid air cells are clear. ??The orbits are unremarkable. ??The extracranial soft tissues are unremarkable. Ordering Provider: Deon Parra FINAL REPORT Dictated: ??06/15/2023 4:17 pm ? Leonardo Fairchild MD Signed (Electronic Signature): ??06/15/2023 4:17 pm Signed by: ??Leonardo Fairchild MD Transcribed by: ??DP ? Technologist: ??JPD Technical Comments Vueway Contrast amount in ml's: [...] Comments Vueway Contrast amount in ml's: 10 Authorizing ProviderResult TypeResult StatusBrelizzette Parra MDCLINISYNC IMAGING Final Result documented in this encounter Visit Diagnoses Not on filedocumented in this encounter Care Teams Team MemberRelationshipSpecialtyStart DateEnd Date Linnea Escalante PA [address] [place] [address] PCP - Medical [facility]08/12/2311 Nickolas Isaacs MD [address] [place] [address] [facility] Linnea Escalante PA [address] [place] [address] Physician AssistantFamily Medicine09/28/22documented as of this encounter
--- OUTSIDE RECORDS SUMMARY | 2025-01-14 11:07 | XMS_ITS | Clinical Summary ---
Author Organization [facility] Address [address] [facility] [place] [address] Care Team Providers Care Personal Injury Litigation Paralegal Name Role Phone Linnea Hackett Unavailable [phone] Nickolas Isaacs MD Primary Care Provider [phone] Linnea Hackett Unavailable [phone] Allergies Active AllergyReactionsCriticalityNoted DateCommentsBee VenomAnaphylaxis,Hives High08/02/2022 Other Reaction(s): Hives NlyuSxxxJji96/04/2020 Pt allergic to berries FinyeMohhygi08/04/2020RaspberryRash,SjlgoffamctDrux40/03/2023 Medications MedicationSigDispense QuantityRefillsLast FilledStart DateEnd DateStatus albuterol HFA 90 mcg/act inhaler Inhale 2 puffs every 4 (four) hours if needed for wheezingActive Albuterol-Budesonide (Airsupra) 90-80 MCG/ACT aerosol Indications:Mild intermittent asthma without complication (HCC)Inhale 2 puffs every 4 (four) hours if needed (SOB/wheezing) 10.7 g 4Active levothyroxine (Synthroid) 112 MCG tablet Indications:Acquired hypothyroidismTake 1 tablet (112 mcg) by mouth in the morning. Take before meals. 30 tablet 5Active metoclopramide (Reglan) 5 MG tablet Take 5 mg by mouth every 6 (six) hours if nzvebt585Active pantoprazole (ProtoNix) 40 MG EC tablet Take 40 mg by mouth DailyActive metFORMIN XR (Glucophage-XR) 500 MG 24 hr tablet Indications:Encounter for weight management,Weight gainTake 2 tablets (1,000 mg) by mouth in the evening. Take with meals Do not crush, chew, or split. 60 tablet 11010/23//6Active metoprolol succinate XL (Toprol-XL) 50 MG 24 hr tablet TAKE 1 TABLET (50 MG) BY MOUTH EVERY DAY DO NOT CRUSH OR CHEWActive methylPREDNISolone (Medrol Dospak) 4 MG tablets Indications:Non-recurrent acute serous otitis media of right earFollow schedule on package instructions 21 tablet 5Active azithromycin (Zithromax) 250 MG tablet Indications:Acute bronchitis with wheezingTake 2 tabs PO x 1 day then 1 tab PO daily x 4 days 6 tablet 5Active promethazine-dextromethorphan (Phenergan-DM) 6.25-15 MG/5ML syrup Indications:Viral upper respiratory tract infection,Mild intermittent asthma without complication (HCC)Take 5 mL by mouth every 6 (six) hours if needed for cough 240 mL 5Active promethazine-dextromethorphan (Phenergan-DM) 6.25-15 MG/5ML syrup Indications:Viral upper respiratory tract infection,Mild intermittent asthma without complication (HCC)Take 5 mL by mouth every 6 (six) hours if needed for cough 240 mL Discontinued(Reorder) Active Problems ProblemNoted DateDiagnosed DateCervical oylrphwvwiflk31/25/2025Encounter for Rh blood wszxfl9610/14/2024ute cystitis with rbezeisbs14/28/2025Throat swelling 04/16/2024Heart qfunmsavqwtu32/04/1804Xmeoiqiaxcf00/04/2025Viral upper respiratory tract vzqieujew63/06/2024reventative health care10/06/2023 Assessment & Plan (10/06/2023 10:48 AM EDT): Annual exam in one year Foreign body of neck07/17/2023New daily persistent xzlfobmn27/25/2024Vertigo of central enrird9206/05/2023ight upper quadrant pain04/04/20231888Ayytxye53/16/2024 Assessment & Plan (07/11/2023 3:12 PM EDT): Patient will being seeing oncology at [facility] Had PET Scan done tomorrow Acute recurrent frontal pnjjwgjju65/16/2024 Assessment & Plan (03/28/2023 2:42 PM EST): Discussed treatment and side effects of medications and concerning symptoms to monitor for Acute bronchitis with hvibgivf73/04/2024alculus of gallbladder with cholecystitis without biliary fpgpeqkwkco41/04/1705Nbgmjvyjze47/28/2023MI 38.0-38.9,adult02/14/2023History of gunshot wound02/14/20238783Qztqdqbey71/05/2023 Assessment & Plan (07/11/2023 3:10 PM EDT): Improving working with neurology PCOS (polycystic ovarian syndrome)02/14/2023Subcutaneous mass of abdominal wall 02/14/2023Mild intermittent asthma without kmwnybmvmqmg78/17/2023Nausea 12/27/2022 Assessment & Plan (12/27/2022 11:53 AM EDT): Will order zofran as needed Periumbilical mass11/22/2022 Assessment & Plan (12/27/2022 11:56 AM EDT): Healing well, patient needs work excuse 86-28-00- Patient was advised to work on deep breathing exercises Pine diet Patient has appt with Dr. Boo on Monday Assessment & Plan (11/22/2022 2:21 PM EDT): Reviewed CT results with patient Will refer to Dr. Rajeev CRYSTALP for further eval Abdominal pain09/29/2022 Assessment & Plan (11/22/2022 2:22 PM EDT): Will refer to Dr. Boo for further eval Anxiety /23/2023 Assessment & Plan (07/11/2023 3:10 PM EDT): Stable, FMLA completed Assessment & Plan (01/05/2023 3:13 PM EDT): Will increase prozac to 20 mg Personal history of COVID-19008/02/2022Tear of lateral meniscus of knee08/02/2022 Overview (08/02/2022): right Other post infection and related fatigue yokrmsato35/23/2023Morbid (severe) obesity due to excess sukuvkgx08/30/2020Acquired npmziaurpzexqm90/31/2020 Assessment & Plan (07/11/2023 3:10 PM EDT): Continue current medications Assessment & Plan (01/05/2023 3:13 PM EDT): Will check labs and call with results Assessment & Plan (09/29/2022 12:49 PM EDT): Declined will increase med to 112 mcg cornelius Will refer to endo Morbid ywgoewi0410/11/2019 Resolved Problems ProblemNoted DateDiagnosed DateResolved DateOther acute postprocedural pain /OVID-190epression/ Lipoma of abdominal wall/7117Afatbsuggwe15/05/202303/ Frontal rqsdsilwi94/04/20223697Cciuzpt02/23/202303/Facial flushing / Encounters DateTypeDepartmentCare MppuPgkchyrvudb42/16/2025 11:10 AM EDTConsult JAIME DIAZ [address] [place] [address] Rafael Keane DO Pre-op evaluation; Pelvic pain in female; Dysfunctional uterine bleeding; Menorrhagia with irregular cycle12/26/2024amboo flowsheet JAIME DIAZ [address] [place] [address] Rafael Keane DO 12/20/2024 8:00 AM EDTOffice Visit [facility] [address] [place] [address] Linnea Hackett PA Acute bronchitis with wheezing (Primary Dx); Non-recurrent acute serous otitis media of right ear; Viral upper respiratory tract infection; Mild intermittent asthma without complication (HCC)12/20/2024amb flowsheet [facility] [address] [place] [address] Linnea Hackett PA 12/20/20244567Epplzk49/09/4686Mrntwt77/10/2025 1:30 PM EDTOffice Visit [facility] [address] [place] [address] Susie Rodriges NP Pelvic pain in female (Primary Dx); Dysfunctional uterine bleeding; Menorrhagia with irregular cycle11/20/2024[facility] flowsheet [facility] [address] [place] [address] Susie Rodriges NP 11/15/2024linisync Result Encounter [facility] External Department Unsolicited Provider, Generic External Data 11/14/20241657Qwzhus85/03/2025Telephone [facility] [address] [place] [address] Yashira Calderon MA 11/04/2024Results Follow-Up [facility] [address] [place] [address] Linnea Hackett PA Transthoracic echo (TTE) axocfbut85/25/2025Results Follow-Up [facility] [address] [place] [address] Linnea Hackett PA [facility] [place] [facility] [place] [facility] ID#, [facility] [place], [facility] [place] HISTORY CHECK11/01/2024 Orders Only [facility] [address] [place] [address] Ese Jones LPN 10/24/2024 12:40 PM EDTOffice Visit [facility] [address] [place] [address] Linnea Hackett PA Cervical radiculopathy (Primary Dx)10/24/2024linisync Result Encounter [facility] External Department Unsolicited Linnea Hackett PA 10/24/20240205Wpuiea53/13/2025 3:00 PM EDTOffice Visit [facility] [address] [place] [address] Rafael Keane DO Well woman exam with routine gynecological exam; Encounter for weight management; Weight gain10/23/2024linisync Result Encounter [facility] External Department Unsolicited Provider, Generic External Data 10/23/2024amboo flowsheet [facility] [address] [place] [address] Rafael Keane DO 10/23/20244334Krwudb36/12/2025Patient Outreach [facility] [address] [place] [address] Jimena Williamson, PRINTING SUPERVISOR 10/21/20241140Vrvkbo46/04/2025 12:20 PM EDTOffice Visit [facility] [address] [place] [phone] Linnea Hackett PA Preventative health care (Primary Dx)10/14/2024Results Follow-Up [facility] [address] [place] [address] abdomen pelvis wo IV /04/2025amboo flowsheet [facility] [address] [place] [address] Linnea Hackett PA 10/14/2024Travelfrom Last 3 Months Immunizations ImmunizationAdministration DatesNext NvpZJO3906/30/2000,04/24/1996,1995, 1995,1995HPV, Iedviziphetb95/19/2008,03/27/2007HPV, Unspecified 10/31/2007Hep B, Adolescent or Znkmwpftl57/08/1996,1995,1995HiB, rlsdwerfsqj53/02/1997,1995,1995,1995Influenza, injectable, bkunhwwrczpg23/09/2021Influenza, injectable, quadrivalent, preservative free 12/08/2022Influenza, seasonal, gsurnxvbnj18/11/2023Influenza, seasonal, injectable, preservative free12/30/2011Influenza, seasonal, intradermal, preservative free01/10/2020MMR06/30/2000,04/14/1996Polio, Cjofddcaqbd94/20/2001, 1995,1995,1995 Family History Medical HistoryRelationNameCommentsHypertensionFatherDaniel ClinkerMental illnessMotherJodi JudgeMiscarriages / StillbirthsMotherJodi JudgeCancerPaternal GrandfatherDanielCancerPaternal GrandmotherEvelynRelationNameStatusComments Brother 15 brothersBrother 2AliveBrother 3AliveBrother 4AliveBrother 5Alive FatherDaniel ClinkerAliveMotherJodi JudgeAlivePaternal GrandfatherDanielPaternal GrandmotherEvelynSister 15 sistersSister 2AliveSister 3AliveSister 4AliveSister 5Alive Social History Tobacco UseTypesPacks/DayYears UsedDateSmoking Tobacco: NeverSmokeless Tobacco: Never Tobacco Cessation:Counseling Given: Not Answered Alcohol UseStandard Drinks/WeekCommentsYes0 (1 standard drink = 0.6 oz pure alcohol)1-2 drinks of alcohol less than zhshbC4624 Health LiteracyAnswerDate RecordedHow often do you need [...] times a week10/08/2024How often do you attend nondenominational or baptist services?1 to 4 times per year10/08/2024Do you belong to any clubs or organizations such as nondenominational groups, unions, fraternal or athletic groups, or school groups?No10/08/2024How often do you attend meetings of the clubs or organizations you belong to?Never10/08/2024re you , , , , never , or living with a partner?Never alzthjt4610/08/2024UDIT-CAnswerDate RecordedQ1: How often do you have a [...] and heating?Somewhat hard10/08/2024PHQ-2AnswerDate RecordedPatient Health Questionnaire-2 Score0 12/20/2024[facility] - Occupational Stress QuestionnaireAnswerDate RecordedDo you feel stress - tense, restless, nervous, or anxious, or unable to sleep at night because yourmind is troubled all the time - these days?Only a gxxrgp0910/08/2024Exercise Vital SignAnswerDate Recorded On average, how many [...] steady place to sleep or slept in uticaelter (including now)?No08/01/2022Housing Stability Vital SignAnswerDate RecordedIn the last 12 months, was there a time when you were not able to pay the mortgage or rent on time?No10/08/2024In the past 12 months, how many times have you moved where you were living? At any time in the past 12 months, were you homeless or living in a long-term (including now)?No10/08/2024CommentsNoSex and Gender InformationValue Date RecordedSex Assigned at EpzpvUusyto86/22/2023 4:36 PM EDTLegal SexFemale 05/25/2022 7:27 PM EDTGender XhfijfyhIsokaa01/15/2023 7:27 PM EDTSexual OsdpvhrrecmCmtrduqe86/24/2023 8:31 PM EDT Last Filed Vital Signs Vital SignReadingTime TakenCommentsBlood Kkminuij386/7412/26/2024 11:28 AM EDT Wowfc554412/20/2024 8:05 AM BDTDutmrihqdsb78.9 ??C (98.4 ??F)12/20/2024 8:05 AM EDTRespiratory Rate--Oxygen Ojmjcmbhiu36%12/20/2024 8:05 AM EDTInhaled Oxygen Concentration--Rizoej460 kg (280 lb)12/26/2024 11:28 AM YADQsiwal852.7 cm (5' 8 )12/26/2024 11:28 AM EDTBody Mass Index42.5712/26/2024 11:28 AM EDT Plan of Treatment DateTypeDepartmentCare Team (Latest Contact Info)Qqnydreydly89/18/2026 8:30 AM EDTProcedure Visit [facility] [address] [place] [address] Rafael Keane, [address] [place] [address] Health MaintenanceDue DateLast DoneCommentsPneumococcal Vaccine: Pediatrics (0 to 5 Years) and At-Risk Patients (6 to 64 Years) (1 of 2 - PCV)2014COVID- 19 Vaccine (2024- season), 04/17/2020, 03/20/2020 Influenza Vaccine (#1), 11/12/2023, 12/08/2022, Additional history exists Procedures Procedure NamePriorityDate/TimeAssociated DiagnosisCommentsUS PELVIS W/ VGTFXVUNZOXD50/05/2025 9:32 AM EDT [facility] [place] HISTORY HXYYCVydadxw49/14/2025 4:03 PM EDT [facility] [place] ANLHXumzklv42/14/2025 4:03 PM EDT [facility] [place] ID#[id number]/24/2024 4:03 PM EDT [facility] [place] [place]BO/CRZfsjqha23/14/2025 4:03 PM EDT IGP,APTIMA HPV,AGE EGSXVmxyykw60/13/2025 3:08 PM EDT PAP OMUBDYvucxkk60/13/2025 12:00 AM EDTfrom Last 3 Months Results * US PELVIS W/ TRANSVAGINAL (11/15/2024 9:32 AM EDT)Anatomical RegionLaterality ModalityOtherSpecimen (Source)Anatomical Location / LateralityCollection Method / VolumeCollection TimeReceived Time11/15/2024 9:32 AM EDT Narrative 11/15/2024 9:34 AM EDT [facility] ?[address] ? [place] [address] ? Ultrasound Report ? Signed ? Patient: ADINA RENE ?MR#: [id number] ?? : 1995 ?Acct:[id number] ?? Age/Sex: 29 / F ?ADM Date: 11/15/24 ?? Loc: US ? Attending Dr: Rafael Keane D.O. ? Ordering Physician: Rafael Keane D.O. ?? Date of Service: 11/15/24 ?? Procedure(s): US pelvis w/ transvaginal ?? Accession Number(s): [id number] ? cc: Rafael Keane D.O.; LINNEA HACKETT ? [facility] ? [address] ? [place] [address] ? Patient Name: ?? ADINA RENE ? MRN: [facility]:[id number] ? date: 1995 ?Sex: F ?? Assigned Patient Location: US ?? Current Patient Location: [place] ?? Accession/Order Number: [id number] ?? Exam Date: 11/15/2024 ??07:01 ?Report Date: 11/15/2024 ??09:32 ? At the request of: ?? RAFAEL ??DIYA ??DO ? Procedure: ??US pelvis w/ transvaginal ? ULTRASOUND PELVIS WITH TRANSVAGINAL ? COMPARISON: 11/17/2022 ? CLINICAL DATA: Chronic worsening bloating and pelvic pain ? Real-time ultrasound evaluation the pelvis was performed utilizing both a ?? transabdominal and transvaginal approach. ? TRANSABDOMINAL: Estimated uterine size is approximately 9.8 x 4.5 x 6.2 cm. ? No focal myometrial abnormalities are seen. ??The endometrial lining is ?? estimated at 3-4 mm. ??Only the right ovary is identified. ? TRANSVAGINAL: Transvaginal scans were performed to better evaluate the uterus ?? and adnexa. ??By this approach, no focal myometrial abnormalities are noted. ? The endometrial lining is estimated at 8 mm. ??Both ovaries are identified. ? The right measures 4.0 x 1.8 x 1.7 cm. ??The left ovary measures 3.3 x 1.5 x ?? 1.8 cm . Small follicles are present. ??There are no dominant adnexal cysts. ? There is documentation of ovarian blood flow. ??No free fluid is seen. ? US/US pelvis w/ transvaginal ?? IMPRESSION: ? WITHIN NORMAL LIMITS. ? Impression dictated by: Lori Valenzuela M.D. ??11/15/2024 9:32 AM ? Dictation Location: [place] [address] ? Electronically authenticated by: [id number] ??Y ?? Date: 11/15/2024 ??09:32 ? Dictated By: ?Lori Valenzuela M.D. ? Signed By: ?11/15/24 0934 ? DD/ 0932 ? TD/TT: ? Raw Stock Dyeing Machine Tender: Procedure Note Radiology, Radiologist, MD - 11/15/2024 [place] [address] Ultrasound Report Signed Patient: ADINA RENE PMR#: [id number] : 1995Acct:[id number] Age/Sex: 29 / FADM Date: 11/15/24 Loc: US Attending Dr: Rafael Keane D.O. Ordering Physician: Rafael Keane D.O. Date of Service: 11/15/24 Procedure(s): US pelvis w/ transvaginal Accession Number(s): [id number] cc: Rafael Keane D.O.; LINNEA HACKETT [place] [id number] Patient Name: ADINA RENE MRN: [facility]:[id number] date: 1995 Sex: F Assigned Patient Location: Current Patient Location: [place] Accession/Order Number: [id number] Exam Date: 11/15/2024 07:01 Report Date: 11/15/2024 09:32 At the request of: RAFAEL KEANE DO Procedure: US pelvis w/ transvaginal ULTRASOUND PELVIS WITH TRANSVAGINAL COMPARISON: 11/17/2022 CLINICAL DATA: Chronic worsening bloating and pelvic pain Real-time ultrasound evaluation the pelvis was performed utilizing both a transabdominal and transvaginal approach. TRANSABDOMINAL: Estimated uterine size is approximately 9.8 x 4.5 x 6.2cm. No focal myometrial abnormalities are seen. The endometrial lining is estimated at 3-4 mm. Only the right ovary is identified. TRANSVAGINAL: Transvaginal scans were performed to better evaluate theuterus and adnexa. By this approach, no focal myometrial abnormalities arenoted. The endometrial lining is estimated at 8 mm. Both ovaries are identified. The right measures 4.0 x 1.8 x 1.7 cm. The left ovary measures 3.3 x 1.5x 1.8 cm . Small follicles are present. There are no dominant adnexalcysts. There is documentation of ovarian blood flow. No free fluid is seen. US/US pelvis w/ transvaginal IMPRESSION: WITHIN NORMAL LIMITS. Impression dictated by: Lori Valenzuela M.D. 11/15/2024 9:32 AM Dictation Location: [place] [address] Electronically authenticated by: [id number] Y Date: 9:32 Dictated By: Lori Valenzuela M.D. Signed By:11/15/24 0934 DD/ 1 TD/TT: Raw Stock Dyeing Machine Tender: Authorizing ProviderResult TypeResult StatusGeneric External Data Provider [facility] IMAGINGFinal Result * [facility] [place] [place]# (10/24/2024 4:03 PM EDT)ComponentValueRef RangeTest Method Analysis TimePerformed AtPathologist SignatureMER[facility] [place] [place] BBID#[id number] (Source)Anatomical Location / LateralityCollection Method / VolumeCollection TimeReceived CiwvWavff31/14/2025 4:03 PM EDT10/24/2024 4:17 PM EDT Narrative CLINISYAK - 10/24/2024 4:46 PM EDT [facility] [address] [place] [address] Authorizing ProviderResult TypeResult StatusLinnea Hackett PACLINISYNCFinal ResultPerforming OrganizationAddressty/State/ZIP CodePhone Number [facility] * [facility] [place] [place] (10/24/2024 4:03 PM EDT)ComponentValueRef RangeTest MethodAnalysis TimePerformed AtPathologist SignatureMERCY [facility] [place] GEL INTERPNegativeFTMCSpecimen (Source)Anatomical Location / LateralityCollection Method / VolumeCollection TimeReceived BqjpNeqsc84/14/2025 4:03 PM EDT10/24/2024 4:17 PM EDT Narrative CLINISYAK - 10/24/2024 5:09 PM EDT [facility] [address] [place] [address] Authorizing ProviderResult TypeResult StatusLinnea Hackett PACLINISYNCFinal ResultPerforming OrganizationAddressCity/State/ZIP CodePhone Number [facility] * [facility] [place] [place]/RH HISTORY CHECK (10/24/2024 4:03 PM EDT)ComponentValueRef RangeTest MethodAnalysis TimePerformed AtPathologist SignatureMER[facility] [place] [place] H[place] Patient discharged priorFTMCSpecimen (Source)Anatomical Location / Laterality Collection Method / VolumeCollection TimeReceived GoonZwncu82/14/2025 4:03 PM EDT10/24/2024 4:17 PM EDT Narrative CLINISYNC - 10/24/2024 8:51 PM EDT [facility] [address] [place] [address] Authorizing ProviderResult TypeResult StatusDebobby Hackett PACLINISYNCFinal ResultPerforming OrganizationAddressCity/State/ZIP CodePhone Number [facility] * [facility] [place] (10/24/2024 4:03 PM EDT)ComponentValueRef RangeTest MethodAnalysis TimePerformed AtPathologist SignatureMER[facility] [place]/RHO POSFTMCSpecimen (Source) Anatomical Location / LateralityCollection Method / VolumeCollection Time Received ZnepYdiha29/14/2025 4:03 PM EDT10/24/2024 4:17 PM EDT Narrative CLINISYAK - 10/24/2024 4:46 PM EDT [facility] [address] [place] [address] Authorizing ProviderResult TypeResult StatusLinnea Hackett PACLINISYNCFinal ResultPerforming OrganizationAddressCity/State/ZIP CodePhone Number [facility] * IGP,APTIMA HPV,AGE GDLN (10/23/2024 3:08 PM EDT)ComponentValueRef RangeTest MethodAnalysis TimePerformed AtPathologist SignatureAGE GDLN ACOG TESTINGNote. TBHComment: ?? TESTS ? RESULT ??FLAG ??UNITS ?REF RANGE ??LAB ?? Clinician Provided Cytology Information ?? Source.............Cervix;Endocervix ?? No. of containers..01 ThinPrep Vial Age Algo ACOG Davida... ??21-29 ? 01 ?FLAG LEGEND: ?L-Low Normal,H-High Normal,LL-Alert Low,HH-Alert High <-Panic Low,>-Panic High,A-Abnormal,AA-Critical Abnormal Performed at: 01 =G ?[facility] ?? [address] [place], [place] ??[address] ?? Eloisa Perez MD, IGP, RFX APTIMA HPV ASCUNote.TBHComment: ?? TESTS ? RESULT ??FLAG ??UNITS ?REF RANGE ??LAB DIAGNOSIS: ?02 ?? NEGATIVE FOR INTRAEPITHELIAL LESION OR MALIGNANCY. Specimen adequacy: ?02 ?? Satisfactory for evaluation. ??Endocervical and/or squamous metaplastic ?? cells (endocervical component) are present. Performed by: ? 02 ?? Justyna Cunningham, Bleach Range Operator (ASCP) . ? 02 Note: ? Note ?02 ?? The Pap smear is a screening test designed to aid in the ?? detection of premalignant and malignant conditions of the ?? uterine cervix. ??It is not a diagnostic procedure and ?? should not be used as the sole means of detecting cervical ?? cancer. ??Both false-positive and false-negative reports do ?? occur. Test Methodology: ? Note ?02 ?? This liquid based ThinPrep(R) pap test was screened with ?? the use of an image guided system. . ? 02 ?? The HPV DNA reflex criteria were not met with this specimen ?? result therefore, no HPV testing was performed. ?FLAG LEGEND: ?L-Low Normal,H-High Normal,LL-Alert Low,HH-Alert High <-Panic Low,>-Panic High,A-Abnormal,AA-Critical Abnormal Performed at: 02 WB ?[facility] ?? [address] [place] ??[address] ?? Eloisa Perez MD, Performed at: ??=G - [facility] [address] [facility], [place] ??[id number] Broaching Machine Operator: Eloisa Perez MD, Phone: ??[phone] Performed at: ??WB - [facility] [address] [facility], [place] ??[id number] Broaching Machine Operator: Eloisa Perez MD, Phone: ??[phone] Specimen (Source)Anatomical Location / LateralityCollection Method / Volume Collection TimeReceived Time10/23/2024 3:08 PM EDT10/23/2024 9:50 PM EDT Narrative CLINISYNC - 10/28/2024 12:08 PM EDT BRUSH-SPATULA CERVIX ENDOCERVIX Authorizing ProviderResult TypeResult StatusCorey Diya DOLAB BLOOD ORDERABLES Final ResultPerforming OrganizationAddressCity/State/ZIP CodePhone Number [facility] * Pap Smear (10/23/2024 12:00 AM EDT)Specimen (Source)Anatomical Location / LateralityCollection Method / VolumeCollection TimeReceived TimeSwabCervical swab / Unknown Narrative Authorizing ProviderResult TypeResult StatusFazio Nurse [facility] ObLAB CYTOLOGY ORDERABLESFinal ResultPerforming OrganizationAddressCity/State/ZIP CodePhone Number EXTERNAL LAB from Last 3 Months Insurance Care Teams Team MemberRelationshipSpecialtyStart DateEnd Date Linnea Hackett PA [address] [place] [address] PCP - [facility]08/12/2311 Nickolas Isaacs MD [address] [place] [address] PCP - [facility]09/28/22 Linnea Hackett PA [address] [place] [address] Physician [facility]09/28/22
--- OUTSIDE RECORDS SUMMARY | 2025-01-14 11:07 | XMS_ITS | Encounter Summary ---
Author Organization [facility] Address [address] [facility] [place] [address] Care Team Providers Care Kit Assembler Name Role Phone Linnea Hackett Unavailable [phone] Nickolas Isaacs MD Primary Care Provider [phone] Linnea Hackett Unavailable [phone] Encounter Details DateTypeDepartmentCare Team (Latest Contact Info)Qntsbofjtzt69/21/2024Clinisync Result Encounter [facility] Department Unsolicited Linnea Hackett PA [address] [place] [id number] Social History Tobacco UseTypesPacks/DayYears UsedDateSmoking Tobacco: NeverSmokeless Tobacco: NeverAlcohol UseStandard Drinks/WeekCommentsYes0 (1 standard drink = 0.6 oz pure alcohol)1-2 drinks of alcohol less than [id number] Health LiteracyAnswerDate RecordedHow often do you need [...] times a week10/08/2024How often do you attend rastafarian or restoration services?1 to 4 times per year10/08/2024Do you belong to any clubs or organizations such as rastafarian groups, unions, fraternal or athletic groups, or school groups?No10/08/2024How often do you attend meetings of the clubs or organizations you belong to?Never10/08/2024re you , , , , never , or living with a partner?Never gnrxvey3410/08/2024UDIT-CAnswerDate RecordedQ1: How often do you have a [...] and heating?Somewhat hard10/08/2024PHQ-2AnswerDate RecordedPatient Health Questionnaire-2 Score0 12/20/2024[facility] [place] [facility] Occupational [facility] - Occupational Stress QuestionnaireAnswerDate RecordedDo you feel stress - tense, restless, nervous, or anxious, or unable to sleep at night because yourmind is troubled all the time - these days?Only a fricpf7310/08/2024Exercise Vital SignAnswerDate Recorded On average, how many [...] steady place to sleep or slept in [facility] (including now)?No08/01/2022Housing Stability Vital SignAnswerDate RecordedIn the last 12 months, was there a time when you were not able to pay the mortgage or rent on time?No10/08/2024In the past 12 months, how many times have you moved where you were living? At any time in the past 12 months, were you homeless or living in a senior living (including now)?No10/08/2024CommentsNoSex and Gender InformationValue Date RecordedSex Assigned at UlaftKbisni63/22/2023 4:36 PM EDTLegal SexFemale 05/25/2022 7:27 PM EDTGender WxlvebipPqvuwm18/15/2023 7:27 PM EDTSexual QusileadmcwKhsmdsgk93/24/2023 8:31 PM EDTdocumented as of this encounter Functional Status * AUDIT-C ScoreAnswerDate of GbcgvmrgocZuykrv670/29/2025 10:37 AM Miles Araujo * Q1: How often do you have a drink containing alcohol?AnswerDate of Assessment JppebsQrujg18/29/2025 10:37 AM Gayle Generic * Q2: How many drinks containing alcohol do you have on a typical day when you are drinking?AnswerDate of AssessmentAuthorPatient does not drink10/08/2024 10:37 AM Gayle Generic * Q3: How often do you have six or more drinks on one occasion?AnswerDate of HsvxznwwjzWqgkvsXcejt27/29/2025 10:37 AM Gayle Generic * Over the past 2 weeks, how often have you been bothered by any of the following problems?QuestionAnswerDate of AssessmentAuthorLittle interest or pleasure in doing thingsNot at all12/20/2024 8:04 AM Mago Morin MA Feeling down, depressed, or hopelessNot at all12/20/2024 8:04 AM Mago Morin MAPatient Health Questionnaire-2 Zwikb929 8:04 AM Mago Morin MA documented as of this encounter Plan of Treatment DateTypeDepartmentCare Team (Latest Contact Info)Wuoszutqwaz26/18/2026 8:30 AM EDTProcedure Visit [facility] [address] [facility] [place] [address] Db Keane DO [address] [place], [place] [phone] documented as of this encounter Procedures Procedure NamePriorityDate/TimeAssociated DiagnosisCommentsCTA NECK08/01/2023 6:54 AM EDT documented in this encounter Results * CTA NECK (08/01/2023 6:54 AM EDT)Anatomical RegionLateralityModalityOther Specimen (Source)Anatomical Location / LateralityCollection Method / Volume Collection TimeReceived Time08/01/2023 6:54 AM EDT Narrative 08/03/2023 2:23 PM EDT Exam Date/Time: 08/01/2023 07:26 EDT Reason for Exam: [id number] Report IMPRESSION: ??STABLE NECK CT FROM 01/04/2022. EXAM: CTA Neck DATE: 08/01/2023 6:54 AM CLINICAL HISTORY: ??S10.95XA. COMPARISON: ??Neck CT 01/04/2022 and head MRI 06/14/2023. TECHNIQUE: Spiral imaging was obtained of the neck after the uneventful infusion of approximately 100 mL of Isovue 370 contrast with CTA protocol. All CT scans at this facility use dose modulation, iterative reconstruction, and/or weight based dosing when appropriate to reduce radiation dose to as low as reasonably achievable. Luminal narrowings are estimated by NASCET criteria. ??Routine and volume rendered images were obtained on a three-dimensional workstation. Unless otherwise stated, incidental findings identified in this report do not require routine follow-up imaging. FINDINGS: Numerous very small radiodense foreign bodies are again noted predominantly within the superficial aspect of the right neck and supraclavicular fossa; some oh- along the anterior margin of the right internal jugular vein. Brain: ??Visualized portions of the brain appear unremarkable Face: Unremarkable. Oropharynx: ??No significant tonsillar enlargement. ??No peritonsillar abscess. Hypopharynx: ??Unremarkable. Larynx: ??Unremarkable. ??Normal epiglottis and aryepiglottic folds. Trachea: ??Unremarkable. Retropharyngeal space: ??Unremarkable. Submandibular/parotid glands: ??Unremarkable. ??Glands are normal in size. Thyroid: ??Unremarkable. ?? Bones/joints: ??No acute fracture or dislocation. Paraspinous soft tissues: ??Unremarkable. Vasculature: ??No significant atherosclerotic plaquing, significant stenosis, or evidence of dissection. Lymph nodes: ??Small shotty appearing cervical lymph nodes similar to the prior study. No pathologically enlarged lymph nodes. Orbits: Unremarkable. Sinuses: ??Clear paranasal sinuses. Report Mastoid air cells and middle ear cavities: ??Clear. Lung apices: ??Visualized upper lung murillo are clear. Additional findings: Noncontributory. Ordering Provider: Linnea HACKETT FINAL REPORT Dictated: ??08/03/2023 2:20 pm ? Anton Mcneill MD Signed (Electronic Signature): ??08/03/2023 2:20 pm Signed by: ??Anton Mcneill MD Transcribed by: ??DP ? Technologist: ??JLW Technical Comments GFR (mL/min/1/73m2) age Contrast: Isovue [...] are clear. Additional findings: Noncontributory. Ordering Provider: ROXANN, Linnea FINAL REPORT Dictated: 08/03/2023 2:20 pm Anton Mcneill MD Signed (Electronic Signature): 08/03/2023 2:20 pm Signed by: Anton Mcneill MD Transcribed by: MIRIAM Technologist: JOE Technical Comments GFR (mL/min/1/73m2) age Contrast: Isovue 370 Contrast amount in ml's: 100 Authorizing ProviderResult TypeResult StatusDeborzahraa Hackett PACLINISYNC IMAGINGFinal Result documented in this encounter Visit Diagnoses Not on filedocumented in this encounter Care Teams Team MemberRelationshipSpecialtyStart DateEnd Date Linnea Hackett PA [address] [place] [address] PCP - Medical [facility]08/12/2311 Nickolas Isaacs MD [address] [place] [address] [facility] - [facility] Linnea Hackett PA [address] [place] [address] [facility]09/28/22documented as of this encounter
--- OUTSIDE RECORDS SUMMARY | 2025-01-14 11:07 | XMS_ITS | Clinical Summary ---
Author Organization [facility] Address [address] [place] [address] Care Team Providers Care Joint Finisher Name Role Phone Edmundo Sharma Unavailable Elizabeth Randall MD Unavailable Shyla Nuñez Unavailable Unavailable Linnea Escalante PA-C Primary Care Provider Allergies Active AllergyReactionsCriticalityNoted DateCommentsBee/Wasp StingAnaphylaxis High014RaspberryAnaphylaxis,Rash-IifkPrkt53/03/2023Venom-Honey Bee Anaphylaxis,NwdlxMyqd25/23/2023 Medications MedicationSigDispense QuantityRefillsLast FilledStart DateEnd DateStatus AIRSUPRA 90-80 mcg/actuation HFA inhaler Inhale 2 puffs by mouth every four hours as needed.05/31/2023ctive cholecalciferol (VITAMIN D3) 25 mcg (1,000 unit) capsule Take 2 capsules by mouth in the morning.Active TRELEGY ELLIPTA 200-62.5-25 mcg disk inhaler Inhale 1 puff by mouth in the morning.05/31/2023ctive topiramate (TOPAMAX) 100 mg tablet Take 100 mg by mouth at bedtime.06/17/2023ctive levothyroxine (SYNTHROID) 100 mcg tablet Take 100 mcg by mouth once daily, 30 min prior to meal.Active albuterol 2.5 mg/3 mL (0.083 %) NEB solution 2.5 mg every six to eight hours as needed.4Active omeprazole 20 mg delayed release capsule Take 1 capsule (20 mg) by mouth once daily, 30 min prior to meal. 90 capsule /6Active Active Problems ProblemNoted DateDiagnosed DateNausea & /10/2025 Immunizations ImmunizationAdministration DatesNext DueInfluenza, Quadrivalent (P-free) (6 Mo And Older) (Inject) (Seasonal Historic)12/08/2022 Family History Medical HistoryRelationNameCommentsHypertensionFatherDanielLung cancerMaternal AuntKathleenOvarian cancerMaternal AuntKathleenCystic fibrosisMaternal Cousin LeviThyroid diseaseMaternal GrandmotherLouannHypothyroidBreast cancerMaternal Great-GrandmotherKittyAutoimmune diseasePaternal CousinCheyennePOTSDiabetes Paternal GrandfatherDanielHeart diseasePaternal GrandfatherDanielMelanoma Paternal Great-GrandmotherEvelynRelationNameStatusCommentsFatherDanielMaternal AuntKathleenMaternal CousinLeviMaternal GrandmotherLouannMaternal Great-GrandmotherKittyPaternal CousinCheyennePaternal GrandfatherDanielPaternal Great-GrandmotherEvelyn Social History Tobacco UseTypesPacks/DayYears UsedDateSmoking Tobacco: NeverSmokeless Tobacco: Never Tobacco Cessation:Counseling Given: Not Answered Comments:No changes 07/17/2024 AA Alcohol UseStandard Drinks/WeekCommentsNever0 (1 standard drink = 0.6 oz pure alcohol)[facility] UtilitiesAnswerDate RecordedIn the past 12 months has the [employer], gas, oil, or water [employer] threatened to shut off services in your home?No 04/16/2024Hunger Vital SignAnswerDate RecordedWithin the past 12 months, you worried that your food would run out before you got the money to buymore.Never true04/16/2024Within the past 12 months, the food you bought just didn't last and you didn't have money to get more.Never true02/04/2025PRAPARE - TransportationAnswerDate RecordedIn the past 12 months, has lack of transportation kept you from medical appointments or from getting medications?No 04/10/2023Lack of Transportation (Non-Medical)Not on file04/10/2023HC - Inadequate HousingAnswerDate RecordedCurrent Living SituationNot on file 04/16/2024Think about the place you live. Do you have problems with any of the following?None of the above04/16/2024NCSS - Interpersonal SafetyAnswerDate RecordedDo you feel physically and emotionally safe where you currently live?Yes 04/16/2024Within the past 12 months, have you been hit, slapped, kicked or otherwise physically hurt by someone?No04/16/2024Within the past 12 months, have you been humiliated or emotionally abused in other ways by your partner or ex-partner?No04/16/2024HC - TransportationAnswerDate RecordedIn the past 12 months, has lack of reliable transportation kept you from medical appointments, meetings, work or from getting things needed for daily living?No04/16/2024HC - Financial StrainAnswerDate RecordedHow hard is it for you to pay for the very basics like food, housing, medical care, and heating? Would you say it is: Somewhat hard04/16/2024Intimate Partner ViolenceAnswerDate RecordedWithin the last year, have you felt unsafe in your home or been afraid of someone close to you?No04/10/2023HumiliationNot on file04/10/2023Within the last year, have you been kicked, hit, slapped, or otherwise physically hurt by someone close to you? No04/10/2023Within the past 12 months, have you been raped or forced to have any kind of sexual activity by someone?No04/10/2023Job TrainingAnswerDate RecordedDo you have a hard time finding work or another steady source of income?No 04/16/2024Do you need help finding a local career center and/or job training?No 04/16/2024hild or Elder CareAnswerDate RecordedIn the last 4 weeks, did getting child protection specialist, elder care, or care for another person make it difficult to work, study, or get to medical visits? 2No04/16/2024Virtual CareAnswerDate RecordedHow would you describe your comfort level with using technology (smart phones, mobile apps, patientportals) to access your health care?Rather comfortable 04/16/2024Do you have internet access in your home that would allow you to participate in a realtime video visit with your provider?Yes04/16/2024Do you have access to a device that would allow you to participate in virtual care with your provider, such as a laptop, computer, smart phone or tablet?Yes04/16/2024 Social IsolationAnswerDate RecordedWithin the last 12 months, how often do you feel isolated from others?Rgelhc4904/16/2024CommentsUnknownSex and Gender InformationValueDate RecordedSex Assigned at BirthNot on fileLegal SexFemale 03/28/2023 4:38 PM ESTGender IdentityNot on fileSexual OrientationNot on file OccupationIndustryJob Start DateJob End DateChildren/Adolescent Mental Health WorkerNot on fileNot on fileNot on file Last Filed Vital Signs Vital SignReadingTime TakenCommentsBlood Gwiokxor871/6605 8:18 AM EDT Ezpbi8909 8:18 AM AATGfkesdcgnil57.5 ??C (97.7 ??F)07/17/2024 8:18 AM EDTRespiratory Jeqw114807/17/2024 8:18 AM EDTOxygen Saturation--Inhaled Oxygen Concentration--Kkoiws146 kg (275 lb 9.6 oz)07/17/2024 8:18 AM EDTWITH SHOES Qgsvlj462.2 cm (5' 7.01 )07/17/2024 8:18 AM EDTVERIFIEDBody Mass Index43.15 07/17/2024 8:18 AM EDT Plan of Treatment DateTypeDepartmentCare Team (Latest Contact Info)Lpkebnmwfyc47/04/2026 8:20 AM ESTAppointment [facility] Floor B1 Mental Health Counselor A [address] [place] [address] 04/16/2025 10:00 AM ESTOffice Visit [facility] Floor B1 Mental Health Counselor E [address] [place] [address] Rebeka Aleman PA-C [facility] [address] [facility] Floor B1 Mental Health Counselor [facility] [place] [address] Health MaintenanceDue DateLast DoneCommentsHepatitis C Tfycglofu1995 DTaP,Tdap,and Td Vaccines (6 - Tdap), 04/24/1996, 1995, Additional history existsCervical Cancer Screening: Cytology 01/20/2016COVID-19 Vaccine ( season)512/04/2020, 04/17/2020, 03/20/2020Influenza Vaccine (#1)509/, 2021, 01/10/2020 Respiratory Syncytial Virus (RSV) or ages 60 years and older (1 - 1- dose 75+ series)2070Hepatitis B Vaccine ages 19 years and olderCompleted 1995, 1995, 1995Pneumococcal CombinedAged OutNo longer eligible based on patient's age to complete this topicRespiratory Syncytial Virus (RSV) ages 0 thru 19 monthsAged OutNo longer eligible based on patient's age to complete this topic Medical Devices ImplantedTypeAreaManufacturerDevice IdentifierShelf Expiration DateModel / Serial / LotUnsafe Metal Fragments Insurance Care Teams Team MemberRelationshipSpecialtyStart DateEnd Date Linnea Escalante PA-C [address] [place] [address] PCP - General04/16/24 Edmundo Sharma [address] [place] [address] Hematology and Oncology03/28/23 Elizabeth Randall MD [address] [place] [address] [facility] [place] [phone] Specialty PhysicianMedical Oncology04/12/23 Shyla Nuñez Oncology Care Navigator04/14/23
--- NOTE | 2025-01-14 11:08 | ECG_ITS ---
[facility] Test Date: 2025-01-14 Pat Name: ADINA RENE Department: Room: - Gender: Female Busperson: : 1995 Requested By: RAFAEL BORDEN Order Number: [id number] Reading MD: MANAN JJ Measurements Intervals [place] Rate: 71 P: 14 AK: 146 QRS: 14 QRSD: 108 T: 13 QT: 378 QTc: 411 Interpretive Statements SINUS RHYTHM WITH SINUS ARRHYTHMIA No previous ECG available for comparison Electronically Signed On 01-14-2025 12:26:15 EST by MANAN JJ
--- OUTSIDE RECORDS SUMMARY | 2025-01-14 11:18 | XMS_ITS | CCD ---
Author Organization [facility] Care Team Providers Care Supervisor Channel Process Name Role Phone DR GRACIE RAMIREZ Consulting [...] Attending Provider KADY Hackett Primary Care Provider Linnea Pires Unavailable Nickolas Isaacs MD Primary Care Provider Linnea Pires Unavailable [phone] KADY Hackett Primary Care Provider [phone] DO Black Saleh Attending Provider Gabe GODWIN [...] Referring Unavailable NILL, Gabe R Admitting Unavailable IEYR, IVETH Herndon Admitting Unavailable IYER, IVETH Herndon [...] Attending Provider Nidia Hughes MD Referring Provider Haily Mulligan DO Attending Provide r NO FAMILY, PHYSICIAN Primary Care Provider Unava ilcortney [facility] Black BELTRAN Attending Provider Haily Mulligan Attending Unav ailable Haily Mulligan Admitting Unav ailable Ellen Lowellnoni Referring Unavailable Quique Vazquez Attending Unavailable VazquezQuique yun Admitting Unavailable BorisLinnea patton Primary Care Unavailable Boris, Linnea Herndon Admitting Unavailable Boris, Linnea Herndon Attending Unavailable BorisLinnea Primary Care Unavailable NO FAMILY, PHYSICIAN Primary Care Unavailable [facility], Black P Attending Unavailable [facility], Black P Admitting Unavailable BORIS, Linnea Herndon Attending Unavailable BORISLinnea Admitting Unavailable BORIS, Linnea Herndon Attending Unavailable BORISLinnea Admitting Unavailable BORIS, Linnea Herndon Attending Unavailable BORIS, Linnea Herndon Admitting Unavailable PACK, IRMA Attending Unavailable RUDDY SLATER Referring Unavailable BORIS, LINNEA JOB Primary [facility] [place] Unavailabl e GENE PARSON Attending Unavailable PACK, IRMA Referring Un[facility] PACK, IRMA Referring Unavailable BORIS, [facility] Unavailabl e PACK, IRMA Referring Unavailable BORIS, [facility] Unavailabl e PACK, IRMA Referring Unavailable BORIS, [facility] Unavailabl e BORIS, [facility] Unavailabl e MOSHE MANRIQUEZ Attending Unavailable URIEL MARMOLEJO Attending Unavailable BORIS, [facility] Unavail[facility] e Boris Linnea WEBSTER Unavailable LINNEA HACKETT Attending Unavailable BORISLINNEA PATTON Attending Unavailable BORISLINNEA PATTON Attending Unavailable DB KEANE Attending Unavailable BORISLINNEA PATTON Attending Unavailable SUSIE RODRIGES Attending Unavailable BORISLINNEA PATTON Attending Unavailable BORISLINNEA PATTON Attending Unavailable BORISLINNEA PATTON Attending Unavailable DB KEANE Attending Unavailable Allergies Allergy ClassificationReported Allergen(s)Allergy TypeDate of OnsetReaction(s) FacilityBee/Wasp/Ant Venom (2 sources)Bee/Wasp/Ant venomSubstance AllergyAnaphylaxisTrinity Health System East Campusraspberry extract (2 sources)raspberry extract; Translations: [raspberry]Drug AllergyEruption of skin (disorder)[facility] (20 sources)Bee/Wasp/Ant venom; Translations: [Bee Stings]Allergy to substance 39-61-1836Fytf (disorder), Swelling (morphologic abnormality)[facility] (20 sources)raspberry extract; Translations: [raspberry]Drug Qzfbhyx91-98-5701 Eruption of skin (disorder)[facility] (12 sources)Parish; Translations: [BERRIES]Food Qoeqvpy18-92-5496[facility] (12 sources)Bees; Translations: [BEES]Allergy to fvfzcfeeh34-50-7078Qxzbompwosi [facility] (20 sources)Honey bee venomAllergy to -97-4934Tucwd, [facility]aphylaxisL[facility] ([facility] sources)raspberry allergenic extractDrug Jqfzyzu88-65-6315Jiyd, Anaphylaxis [facility] (20 sources)FoodPropensity to adverse mmjedocyx41-20-6652DspsWJKW Healthcare (20 sources)OtherPropensity to adverse ojzpcrwmd59-79-4814EfxrptdHSDW Healthcare Work Phone: Medications Current Medications MedicationDrug Class(es)DatesSig (Normalized)Sig (Original)Albuterol (Eqv-ProAir HFA) 90 mcg/inh inhalation aerosol (9 sources)Start: 86-37-0744dodu 1 puff(s) by inhalation every six hours Albuterol (Eqv-ProAir HFA) 90 mcg/inh inhalation aerosol 1 puff(s), Inhalation, q6hr Shortness of breath or wheezing, Refill(s) 0 Start Date: 12/12/22 Status: OrderedAlbuterol-Budesonide (Airsupra) 90-80 MCG/ACT aerosol (20 sources)Start: 36-05-3264witz 2 puff(s) by inhalation every four hours Albuterol-Budesonide (Airsupra) 90-80 MCG/ACT aerosol Indications: Mild intermittent asthma withoutcomplication (HCC) Inhale 2 puffs every 4 (four) hours if needed (SOB/wheezing) 10.7 g 5 05/31/2023ctiveStart: 16-06-5384pdiy 2 puff(s) by inhalation every four hoursAlbuterol-Budesonide (Airsupra) 90-80 MCG/ACT aerosol Indications: Mild intermittent asthma withoutcomplication (CMS/HCC) Inhale 2 puffs every 4 (four) hours if needed (SOB/wheezing) 10.7 g 5 05/31/2023 Activealbuterol-budesonide HFA (AIRSUPRA) 90-80 mcg/actuation inhaler (6 sources)Start: 28-00-1886epfw 2 puff(s) by inhalation every four hours as neededalbuterol-budesonide HFA (AIRSUPRA) 90-80 mcg/actuation inhaler Inhale 2 puffs as instructed every 4 hours as needed. 05/31/2023 Activeazithromycin 250 mg oral tablet (20 sources)Macrolide AntimicrobialStart: 67-44-2116fdvjddhfjpvm (Zithromax) 250 MG tablet Indications: Acute bronchitis with wheezing Take 2 tabs PO x1 day then 1 tab PO daily x 4 days 6 tablet 12/20/2024 ActiveStart: 01-08-2024 End: 15-23-9870niexytvispog (Zithromax) 250 MG tablet Indications: Viral upper respiratory tract infection , Mild intermittent asthma without complication (HCC) Take 2 tabs PO x 1 day then 1 tab PO daily x 4 days 6tablet 01/08/2024 10/14/2024 Discontinued (Therapy completed)brompheniramine maleate 0.4 mg/ml / dextromethorphan hydrobromide 2 mg/ml / pseudoephedrine hydrochloride 6 mg/ml oral solution (3 sources)alpha-Adrenergic Agonist, Uncompetitive G-kvvffy-U-aspartate Receptor Antagonist, Sigma-1 AgonistStart: 75-54-7371ilnp 5 mL by mouth four times daily Bromfed DM oral syrup 5 mL, Oral, QID for cold symptoms, 200 mL, Refill(s) 0, [facility]/pharmacy #[id number], 173, cm, 05/25/23 22:46:00 EDT, Height/Length Dosing, 130.4, kg, 05/25/23 22:46:00 EDT, Weight DosingStart Date: 05/26/23 Status: Ordered busPIRone hydrochloride 10 mg oral tablet (15 sources)Start: 09-67-2770elbi 10 mg by mouth once dailybusPIRone 10 mg, Oral, Daily, Refills(s) 0 Start Date: 11/24/21 Status: Orderedtake 1 tablet by mouth every twelve hoursbusPIRone HCl 10 MG 1 tablet Orally Twice a day Active cholecalciferol 0.025 mg oral capsule (20 sources)Vitamin D End: 26-16-2029Optnwfxjqbfddql, Vitamin D3, (VITAMIN D) 25 mcg (1,000 unit) cap Take 1,000 Units by mouth once daily. ActiveComment on above:Take 1,000 Units by mouth once daily.cyclobenzaprine hydrochloride 10 mg oral tablet (19 sources)Muscle RelaxantStart: 49-64-4062dten 1 tablet by mouth three times daily as needed for paincyclobenzaprine 10 mg Tab 10 mg = 1 tab(s), Oral, TID, PRN Muscle pain, # 20 tab(s), Refills(s) 0, Pharmacy: [facility]/pharmacy #[id number], 174, cm, 01/04/22 0:47:00 EDT, Height/Length Dosing, 121.7, kg, 01/04/22 0:47:00 EDT, Weight Dosing Start Date: 01/04/22 Status: Ordered End: 64-02-4485aerfgwbuctumjli (Flexeril) 5 MG tablet Take by mouth 10/31/2024 Expireddextromethorphan hydrobromide 3 mg/ml / promethazine hydrochloride 1.25 mg/ml oral solution (20 sources)Phenothiazine, Uncompetitive K-slmlxt-H-aspartate Receptor Antagonist, Sigma-1 AgonistStart: 12-76-9650wfbomftcakyy-dextromethorphan (Phenergan-DM) 6.25-15 MG/5ML syrup Indications: Viral upper respiratory tract infection , Mild intermittent asthma without complication (HCC) Take 5 mL by mouth every 6(six) hours if needed for cough 240 mL 12/20/2024 ActiveStart: 01-08-2024 End: 78-67-8331xhsqtguggypm-dextromethorphan (Phenergan-DM) 6.25-15 MG/5ML syrup Indications: Viral upper respiratory tract infection , Mild intermittent asthma without complication (HCC) Take 5 mL by mouth every 6(six) hours if needed for cough 240 mL 12/20/2024 Activedicyclomine hydrochloride 10 mg oral capsule (16 sources)AnticholinergicStart: 02-14-2023 End: 30-98-1885vizj 1 capsule by mouth four times dailyBentyl 10 mg Cap 10 mg = 1 cap(s), Oral, QID, X 7 day(s), # 28 cap(s), Refills(s) 0, Pharmacy: [facility] #[id number], 173, cm, 02/14/23 2:34:00 EST, Height/Length Dosing, 119.3, kg, 02/14/23 2:34:00 EST, Weight Dosing Start Date: 02/14/23 Stop Date: 02/21/23 Status: OrderedStart: 48-94-9789qixa 1 tablet by mouth four times daily dicyclomine 20 mg Tab 20 mg = 1 tab(s), Oral, QID, # 12 tab(s), Refills(s) 0, Pharmacy: [facility]/pharmacy #[id number], 173, cm, 02/14/20 3:19:00 EST, Height/Length Dosing, 120, kg, 02/14/20 3:19:00 EST, Weight Dosing Start Date: 02/14/20 Status: Ordereddoxycycline monohydrate 100 mg oral tablet (1 source)Tetracycline-class DrugStart: 10-13-2023 End: 53-25-2237wrib 1 tablet by mouth twice dailydoxycycline monohydrate 100 mg oral tablet 100 mg = 1 tab(s), Oral, BID, X 7 day(s), # 14 tab(s), Refills(s) 0, Pharmacy: [facility]/pharmacy #[id number], 173, cm, 10/13/23 7:45:00 EDT, Height/Length Dosing, 124.7, kg, 10/13/23 7:45:00 EDT, Weight Dosing Start Date: 10/13/23 Stop Date: 10/20/23 Status: Orderedfamotidine 20 mg oral tablet (16 sources)Histamine-2 Receptor AntagonistStart: 02-14-2023 End: 09-66-6289caae 1 tablet by mouth once dailyPepcid 20 mg Tab 20 mg = 1 tab(s), Oral, Daily, X 7 day(s), # 7 tab(s), Refills(s) 0, Pharmacy: [facility]/ pharmacy #[id number], 173, cm, 02/14/23 2:34:00 EST, Height/Length Dosing, 119.3, kg, 02/14/23 2:34:00 EST, Weight Dosing Start Date: 02/14/23 Stop Date: 02/21/23 Status: OrderedStart: 96-82-9133vlid 1 tablet by mouth twice dailyPepcid 20 mg Tab 20 mg = 1 tab(s), Oral, BID, # 15 tab(s), Refills(s) 0, Pharmacy: [facility]/pharmacy #[id number], 173, cm, 02/14/20 3:19:00 EST, Height/Length Dosing, 120, kg, 02/14/20 3:19:00 EST, Weight Dosing Start Date: 02/14/20 Status: Ordered FLUoxetine 10 mg oral capsule (20 sources)Serotonin Reuptake InhibitorStart: 70-76-9068otka 1 capsule by mouth once dailyProzac 10 mg Cap 10 mg = 1 cap(s), Oral, Daily, Refills(s) 0, Anxiety Start Date: 11/24/21 Status: Orderedtake 1 capsule by mouth once dailyFLUoxetine (PROZAC) 20 mg capsule Take 20 mg by mouth once daily. ActiveComment on above: Take 20 mg by mouth once daily.iv contrast (will be provided with radiology test) (2 sources)Start: 02-08-2023 End: 08-40-0466my contrast (will be provided with radiology test) CT Chest W - Inject, intravenously, once for 1 dose.No IV access, insert saline lock prior to the beginning of sedation, infusion, injection of imaging exam. Discontinue saline lock post exam. If Pt. has a central line or IVAD, may access for adminis tration according to line specific nursing protocol. Once exam is complete flush line and de-accessaccording to line specific nursing protocol in the CT contrast administration guidelines link. 1 Each 0 02/08/2023 02/09/2023 Active Start: 02-03-2023 End: 70-44-8966wp contrast (will be provided with radiology test) MRI ABD/PEL Inject, intravenously, once for 1 dose. No IV access, insert saline lock prior to the beginning of sedation, infusion, injection of imaging exam. Discontinue saline lock post exam. If Pt. has a central line or IVAD, may access for admini stration according to line specific nursing protocol. Once exam is complete flush line and de-access according to line specific nursing protocol in the MR contrast administration guidelines link. 1 Each 0 02/03/2023 02/04/2023 Active Comment on above:MRI ABD/PEL Inject, intravenously, once for 1 dose. No IV access, insert saline lock prior to the beginning of sedation, infusion, injection of imaging exam. Discontinue saline lock post exam. If Pt.has a central line or IVAD, may access for administration according to line specific nursing protocol. Once exam is complete flush line and de-access according to line specific nursing protocol in the MR contrast administration guidelines link.CT Chest W -Inject, intravenously, once for 1 dose.No IV access, insert saline lock prior to the beginning of sedation, infusion, injection of imaging exam. Discontinue saline lock post exam. If Pt. has a central line or IVAD, may access for administration according to line specific nursing protocol. Once exam is complete flush line and de-access according to line specific nursing protocol in theCT contrast administration guidelines link.levothyroxine sodium 0.112 mg oral tablet (20 sources)l-ThyroxineStart: 14-69-2894alqi 1 tablet by mouth before mealtime levothyroxine (Synthroid) 112 MCG tablet Indications: Acquired hypothyroidism Take 1 tablet (112 mcg) by mouth in the morning. Take before meals. 30 tablet 3 04/18/2024 ActiveStart: 01-16-2023 End: 26-90-0290rjcr 1 tablet by mouth once dailyStart: 14-99-7736bniq 1 capsule by mouth once dailylevothyroxine 137 mcg (0.137 mg) oral capsule 137 mcg = 1 cap(s), Oral, Daily, Refills(s) 0, Thyroid Start Date: 12/09/22 Status: Ordered Start: 30-93-1376hxsr 1 tablet by mouth once dailylevothyroxine 50 mcg (0.05 mg) Tab 50 microgram = 1 tab(s), Oral, Daily, Refills(s) 0, Thyroid Start Date: 12/13/19 Status: Orderedtake 1 tablet by mouth once daily in the morning Levothyroxine Sodium 75 MCG 1 tablet in the morning on an empty stomach Orally Once a day ActiveComment on above:Take 100 mcg by mouth daily before breakfast. 24 hr metFORMIN hydrochloride 500 mg extended release oral tablet (20 sources)BiguanideStart: 10-23-2024 End: 53-41-8661iyeh 2 tablets by mouth every twenty-four hours at mealtime metFORMIN XR (Glucophage-XR) 500 MG 24 hr tablet Indications: Encounter for weight management , Weight gain Take 2 tablets (1,000 mg) by mouth in the evening. Take with meals Do not crush, chew, or split. 60 tablet 11 10/23/2024 10/23/2025 ActiveStart: 04-22-2024 End: 34-73-7809fcrz 1 tablet by mouth every twenty-four hours at mealtime metFORMIN XR (Glucophage-XR) 500 MG 24 hr tablet Indications: Encounter for weight management Take 1 tablet (500 mg) by mouth in the evening. Take with meals Do not crush, chew, or split. 30 tablet 11 04/22/2024 10/23/2024 Discontinued (Reorder)Start: 04-22-2024 End: 54-58-4688ceas 1 tablet by mouth once dailymetFORMIN XR 500 mg 24 hr tablet Take 1 tablet (500 mg) by mouth once daily. 04/22/2024 ActiveStart: 11-30-2022 take 1 tablet by mouth once dailymetformin 500 mg ER Tab 500 mg = 1 tab(s), Oral, Daily, Refills(s) 0, Other (see comment) Start Date: 11/30/22 Status: OrderedComment on above:Take 500 mg by mouth daily with breakfast.methocarbamol 750 mg oral tablet (1 source)Muscle RelaxantStart: 10-13-2023 End: 29-90-8125ohct 1 tablet by mouth three times dailyRobaxin-750 oral tablet 750 mg = 1 tab(s), Oral, TID, X 7 day(s), # 21 tab(s), Refills(s) 0, Pharmacy: [facility]/pharmacy #[id number], 173, cm, 10/13/23 7:45:00 EDT, Height/Length Dosing, 124.7, kg, 10/13/23 7:45:00 EDT, Weight Dosing Start Date: 10/13/23 Stop Date: 10/20/23 Status: OrderedmethylPREDNISolone (20 sources)CorticosteroidStart: 11-10-1746sberhbVFHEPTRhqfjo (Medrol Dospak) 4 MG tablets Indications: Non-recurrent acute serous otitis media of right ear Follow schedule on package instructions 21 tablet 12/20/2024 ActiveStart: 01-08-2024 End: 09-35-3772uiuyqdNRCQRWUkrgek (Medrol Dospak) 4 MG tablets Indications: Non- recurrent acute serous otitis media of right ear Follow schedule on package instructions 21 tablet 01/08/2024 10/14/2024 Discontinued (Therapy completed) Start: 65-32-2751nbcrwoIKSVWIXexyog (Medrol Dospak) 4 MG tablets Indications: Non-recurrent acute serous otitis media of right ear Follow schedule on package instructions 21 tablet 01/08/2024 Activemetoclopramide 5 mg oral tablet (20 sources)Dopamine-2 Receptor AntagonistStart: 57-25-5740wkvn 1 tablet by mouth every six hours as neededmetoclopramide (Reglan) 5 MG tablet Take 5 mg by mouth every 6 (six) hours if needed 06/21/2024 Nsvujq20 hr metoprolol succinate 50 mg extended release oral tablet (8 sources)beta-Adrenergic BlockerStart: 09-12-2024 End: 91-57-6376skwf 1 tablet by mouth once dailymetoprolol succinate XL (Toprol- XL) 50 mg 24 hr tablet Indications: Postural orthostatic tachycardia syndrome (POTS) Take 1 tablet (50 mg) by mouth once daily. Do not crush or chew. 90 tablet 3 09/12/2024 09/12/2025 Activenaproxen 500 mg oral tablet (9 sources)Nonsteroidal Anti-inflammatory DrugStart: 51-76-3397xkcw 1 tablet by mouth twice dailyNaprosyn 500 mg Tab 500 mg = 1 tab(s), Oral, BID, # 20 tab(s), Refills(s) 0, Pharmacy: [facility]/pharmacy#[id number], 170, cm, 12/26/22 14:57:00 EDT, Height/Length Dosing, 115.4, kg, 12/26/22 14:57:00 EDT, Weight Dosing Start Date: 12/26/22 Status: Orderednitrofurantoin, macrocrystals 25 mg / nitrofurantoin, monohydrate 75 mg oral capsule (3 sources)Nitrofuran AntibacterialStart: 07-08-2024 End: 32-68-3724udau 1 capsule by mouth in the morningnitrofurantoin, macrocrystal-monohydrate, (Macrobid) 100 MG capsule Indications: Acute cystitis with hematuria Take 1 capsule (100 mg) by mouth in the morning and 1 capsule (100 mg) before bedtime. Do all this for 7 days. 14 capsule 07/08/2024 07/15/2024 Activepantoprazole 40 mg delayed release oral tablet (20 sources)Proton Pump InhibitorStart: 08-29-2024 End: 44-33-7746xlvb 1 tablet by mouth once dailypantoprazole DR (PROTONIX) 40 mg tablet Take 1 tablet by mouth once daily. 90 tablet 08/29/2024 11/27/2024 Activephentermine hydrochloride 37.5 mg oral tablet (10 sources)Sympathomimetic Amine AnorecticStart: 26-21-8017jtya 1 tablet by mouth once dailyAdipex-P 37.5 mg Tab 37.5 mg = 1 tab(s), Oral, Daily, Refills(s) 0 Start Date: 11/30/22 Status: OrderedpredniSONE 20 mg oral tablet (15 sources)Start: 36-81-9681mfvb 3 tablets by mouth once dailypredniSONE 20 mg Tab 3, Oral, Daily, # 15 tab(s), Refills(s) 0, Pharmacy: [facility]/pharmacy #[id number], 173, cm, 10/13/23 7:45:00 EDT, Height/Length Dosing, 124.7, kg, 10/13/23 7:45:00 EDT, Weight Dosing StartDate: 10/13/23 Status: OrderedStart: 10-14-2022 End: 66-80-2806qzzq 3 tablets by mouth once dailypredniSONE 20 mg Tab 60 mg = 3 tab(s), Oral, Daily, X 5 day(s), # 15 tab(s), Refills(s) 0, Pharmacy: [facility]/pharmacy #[id number], 172, cm, 10/14/22 16:35:00 EDT, Height/Length Dosing, 122.5, kg, 10/14/22 16:35:00 EDT, Weight Dosing Start Date: 10/14/22 Stop Date: 10/19/22 Status: Ordered End: 02-66-4828flws 1 tablet by mouth once dailypredniSONE (Deltasone) 10 MG tablet Take 10 mg by mouth Daily 11/20/2024 DiscontinuedPromethazine (18 sources)PhenothiazineStart: 20-19-1388bbnr 5 mL by mouth every six hours for coughPromethazine DM oral syrup 5 mL, Oral, q6hr for cough, 120 mL, Refill(s) 0, [facility]/pharmacy #[id number], 173, cm, 10/13/23 7:45:00 EDT, Height/Length Dosing, 124.7, kg, 10/13/23 7:45:00 EDT, Weight Dosing Start Date: 10/13/23 Status: OrderedStart: 17-77-8732yofp 12.5 mg rectal route every four hours as needed for nauseapromethazine 12.5 mg Supp 12.5 mg = 1 supp, Rectal, q4hr, PRN for nausea/vomiting, # 12 supp, Refills(s) 0, Pharmacy: [facility], 172, cm, 11/26/21 18:14:00 EDT, Height/Length Dosing, 120.5, kg, 11/26/21 18:14:00 EDT, Weight Dosing Start Date: 11/26/21 Status: OrderedStart: 11-24-2021 End: 83-69-4285pudg 1 tablet by mouth every six hours as needed for nausea promethazine 12.5 mg oral tablet 12.5 mg = 1 tab(s), Oral, q6hr, PRN for nausea/vomiting, X 5 day(s), # 20 tab(s), Refills(s) 0, Pharmacy: [facility], 172.7, cm, 11/24/21 21:47:00 EDT, Height/Length Dosing, 120.5, kg, 11/24/21 21:47:00 EDT, Weight Dosing Start Date: 11/24/21 Stop Date: 11/29/21 Status: OrderedZofran ODT 4 mg Tab-Dis (17 sources)Start: 88-87-4261gieg 1 tablet by mouth every eight hoursZofran ODT 4 mg Tab-Dis 4 mg = 1 tab(s), Oral, q8hr, # 12 tab(s), Refills(s) 0, Pharmacy: [facility]/pharmacy #[id number], 173, cm, 05/25/23 22:46:00 EDT, Height/Length Dosing, 130.4, kg, 05/25/23 22:46:00 EDT, Weight Dosing Start Date: 05/26/23 Status: Ordered Start: 23-48-2324iuhl 1 tablet by mouth every eight hoursZofran ODT 4 mg Tab-Dis 4 mg = 1 tab(s), Oral, q8hr, # 10 tab(s), Refills(s) 0, Pharmacy: [facility]/pharmacy #[id number], 173, cm, 02/14/20 3:19:00 EST, Height/Length Dosing, 120, kg, 02/14/20 3:19:00 EST, Weight Dosing Start Date: 02/14/20 Status: Ordered Completed/Discontinued Medications MedicationDrug Class(es)DatesSig (Normalized)Sig (Original)acetaminophen 325 mg / HYDROcodone bitartrate 5 mg oral tablet (16 sources)Opioid AgonistStart: 09-17-2024 End: 79-54-7284xcui 1 tablet by mouth every four hours as neededHYDROcodone- acetaminophen ([place]) 5-325 MG tablet Take 1 tablet by mouth every 4 (four) hours if needed 09/17/2024 11/20/2024 DiscontinuedStart: 93-58-4166odtv 1 tablet by mouth every six hours as needed for painalbuterol 0.83 mg/ml inhalation solution (20 sources)beta2-Adrenergic AgonistStart: 01-08-2024 End: 08-92-4210ybzpunmpi (2.5 MG/3ML) 0.083% nebulizer solution Indications: Viral upper respiratory tract infection , Mild intermittent asthma without complication (HCC) Take 3 mL (2.5 mg) by nebulization every 6 (six) hours if needed for wheezing 75 mL 11 01/08/2024 10/14/2024 Discontinued (Therapy completed)take 2 puff(s) by inhalation every four hours for wheezingalbuterol HFA 90 mcg/act inhaler Inhale 2 puffs every 4 (four) hours if needed for wheezing Active{21 (Desogestrel 0.15 MG / Ethinyl Estradiol 0.03 MG Oral Tablet) / 7 (Inert Ingredients 1 MG Oral Tablet) } Pack [Isibloom 28 Day] (10 sources)Progestin, EstrogenStart: 73-52-0971gtet 1 tablet by mouth once dailyIsibloom 0.15 mg-0.03 mg oral tablet 1 tab(s), Oral, Daily, Refill(s) 0, control/menstrual regulation Start Date: 12/12/22 Status: OrderedStart: 78-53-2548jkhl 1 tablet by mouth once dailyApri oral tablet 1 tab(s), Oral, Daily, Refill(s) 0 Start Date: 11/30/22 Status: Ordereddrospirenone 4 mg oral tablet (20 sources)ProgestinStart: 10-18-2023 End: 51-79-1254hfjq 1 tablet by mouth once dailyDrospirenone (Slynd) 4 MG tablet Indications: Menorrhagia with regular cycle Take 4 mg by mouth Daily 28 tablet 11 10/18/2023 10/14/2024 Discontinued (Therapy completed) Owqvpxmmvxp-Mrihppqew-Zriowx (Trelegy Ellipta) 200-62.5-25 MCG/ACT aerosol powder (20 sources)Start: 05-31-2023 End: 90-93-8697glfw 1 puff(s) by inhalation once daily Aphwzfwjzxj-Zwjdkncnc-Qyydxp (Trelegy Ellipta) 200-62.5-25 MCG/ACT aerosol powder Indications: Mildintermittent asthma without complication (HCC) Inhale 1 puff Daily 1 each 5 05/31/2023 10/23/2024 DiscontinuedStart: 66-23-3041zrgi 1 puff(s) by inhalation once tccmtHlnplpbhcsg-Uizylmtsj-Qplbyc (Trelegy Ellipta) 200-62.5-25 MCG/ACT aerosol powder Indications: Mildintermittent asthma without complication (HCC) Inhale 1 puff Daily 1 each 5 05/31/2023 ActiveStart: 95-76-4627qjas 1 puff(s) by inhalation once qrydaKhuxpjlpzxr-Czktljbgo-Abtkcx (Trelegy Ellipta) 200-62.5-25 MCG/ACT aerosol powder Indications: Mild intermittent asthma without complication (CMS/HCC) Inhale 1 puff Daily 1 each 5 05/31/2023 Activeomeprazole 20 mg delayed release oral capsule (20 sources)Proton Pump InhibitorStart: 04-19-2024 End: 57-50-6238wgxv 1 capsule by mouth in the morningomeprazole (PriLOSEC) [address] capsule Take 20 mg by mouth in the morning. 04/19/2024 11/20/2024 Dis continuedtake 1 tablet by mouth once dailyPriLOSEC OTC 20 MG 1 tablet 30 minutes before morning meal Orally Once a day Activeondansetron 4 mg oral tablet (7 sources)Serotonin-3 Receptor AntagonistStart: 11-23-2021 End: 25-77-1781upxi 1 tablet by mouth every six hours as needed for nausea and vomitingOndansetron Hcl 4 mg tablet Discontinued 4 MG PO Q6H as needed for nausea and vomiting November 23, 2021 6:38pm April 04, 2023 5:52pm topiramate 100 mg oral tablet (20 sources)Start: 06-17-2023 End: 83-94-3225rprb 1 tablet by mouth at bedtimetopiramate (Topamax) 100 MG tablet Indications: Intractable chronic migraine without aura and without status migrainosus Take 1 tablet (100 mg) by mouth at bedtime 30 tablet 11 06/17/2023 10/14/2024 Discontinued (Therapy completed)Toradol 30 mg/ml (1 source)Start: 58-68-8195Jdouteq 30 mg/ml Mar, 60 mgubrogepant 100 mg oral tablet (11 sources)Start: 07-18-2023 End: 59-52-6376mzkq 1 tablet by mouth once daily as needed, then take 2 tablets by mouth every twenty-four hours as neededUbrelvy 100 MG tablet TAKE 1 TABLET BY MOUTH DAILY NEEDED. MAY REPEAT in 2 hours. max of 2 TABLETS in 24 hours. 07/18/2023 10/14/2024 Discontinued (Therapy completed) Problems Active Problems Problem ClassificationProblemDateDocumented DateEpisodic/Chronic Administrative/social admission (2 sources)Patient encounter status; Translations: [Persons encountering health services in other specified circumstances]92-80-7854SrjresmgBdnpdkk disorders (20 sources)Anxiety; Translations: [Anxiety disorder]Onset: 693137-19-9623 ChronicAsthma (20 sources)Mild intermittent asthma; Translations: [Mild intermittent asthma, uncomplicated]Onset: 571174-99-5684TalualiWeavcy of bone and connective tissue (20 sources)Sarcoma; 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, unspecified]Onset: 809179-86-1408GxsdaajAjoysm; other and unspecified primary (2 sources)History of soft tissue sarcoma; Translations: [Personal history of malignant neoplasm of soft tissue]70-90-9722CwimpjglUoxdtir dysrhythmias (6 sources)Postural orthostatic tachycardia syndrome ; Translations: [Postural orthostatic tachycardia syndrome (POTS)]Onset: hronic Diabetes mellitus without complication (4 sources)Type 2 diabetes mellitus; Translations: [Type 2 diabetes mellitus without complications]Onset: 894748-75-5390KxdaiowCftboxiu; including migraine (20 sources)Migraine, unspecified, not intractable, without status migrainosus; Translations: [Migraine]Onset: 57-48-4944ZemthycGmpjrikak disorders (9 sources)Excessive and frequent menstruation with regular cycle; Translations: [Amenorrhea]Onset: 70-51-5571LiyvfasHowlpmxvj of unspecified nature or uncertain behavior (2 sources)Neoplasm of soft tissue; Translations: [Neoplasm of unspecified behavior of bone, soft tissue, and skin]02-65-4697LsgoqbjjVfsueovewpz chest pain (4 sources)Chest pain; Translations: [Chest pain, unspecified]Onset: 11-24-2021 EpisodicOther and unspecified benign neoplasm (2 sources)Lipoma of skin and subcutaneous tissue of trunk; Translations: [Benign lipomatous neoplasm of skin and subcutaneous tissue of trunk]Onset: 07-89-5078EauxpanfWdhqx endocrine disorders (20 sources)Polycystic ovary syndrome; Translations: [Polycystic ovarian syndrome]Onset: 846199-44-2332WuihsrjMxomc female genital disorders (3 sources)Abnormal uterine bleeding; Translations: [Other specified abnormal uterine and vaginal bleeding]80-11-2498TqnknvlCldfd female genital disorders (1 source)Pain in female pelvis; Translations: [Pelvic pain in female]12-26-2024 EpisodicOther gastrointestinal disorders (2 sources)Abdominal bloating; Translations: [Abdominal distension (gaseous)] 14-95-6035OllthvgqBqjzu lower respiratory disease (3 sources)Dyspnea; Translations: [Dyspnea, unspecified]Onset: 11-24-2021 EpisodicOther nutritional; endocrine; and metabolic disorders (20 sources)Body mass index 30+ - obesity; Translations: [Body mass index (BMI) 38.0-38.9, adult]Onset: 190146-17-4406MejcbrfRtxmp nutritional; endocrine; and metabolic disorders (20 sources)Morbid obesity; Translations: [Morbid (severe) obesity due to excess calories]Onset: 388475-21-9255JsitfueLdxfk nutritional; endocrine; and metabolic disorders (20 sources)Obesity caused by energy imbalance; Translations: [Morbid (severe) obesity due to excess calories]Onset: 337449-79-3655SibprdkUaepy nutritional; endocrine; and metabolic disorders (5 sources)Body mass index 40+ - severely obese; Translations: [Body mass index (BMI) 40.0-44.9, adult]Onset: 888690-49-5519ZyalksnQbtsm nutritional; endocrine; and metabolic disorders (2 sources)Body mass index (BMI) 40.0-44.9, adult; Translations: [Body mass index (BMI) 40.0-44.9, adult (Multi)]Onset: 78-72-7027XrdpcasTmsgz nutritional; endocrine; and metabolic disorders (2 sources)Weight increased; Translations: [Abnormal weight gain]10-23-2024 EpisodicOtitis media and related conditions (4 sources)Acute non-suppurative otitis media - serous; Translations: [Acute serous otitis media, right ear]88-60-2060SjxmecvsCzdilpbm; pneumothorax; pulmonary collapse (1 source)Pleurisy; Translations: [Pleurisy]Onset: 85-61-9979CksqiyplOmyxrrkpf (except that caused by tuberculosis or sexually transmitted disease) (1 source)Pneumonia; Translations: [Pneumonia, unspecified organism]Onset: 54-40-7990KkahctnlIkxlvffnr by nonmedicinal substances (1 source)Poisoning by bee sting; Translations: [Toxic effect of venom of bees, accidental (unintentional), initial encounter]Onset: 39-97-9177FjvwbuwgIorwkgcp codes; unclassified (2 sources)Family history of cancer; Translations: [Family history of malignant neoplasm, unspecified]92-94-3105QsglrxzvPisqwkoi codes; unclassified (5 sources)Never smoked tobacco; Translations: [Other specified health status] Onset: 730052-13-4548PeyajsryTltjxiaxjds; intervertebral disc disorders; other back problems (19 sources)Neck pain; Translations: [Cervicalgia]Onset: 95-93-6375Naxwwyrz Sprains and strains (1 source)Injury of muscle and tendon at neck level; Translations: [Strain of muscle, fascia and tendon at neck level, initial encounter]Onset: 10-13-2023 EpisodicThyroid disorders (20 sources)Hypothyroidism; Translations: [Acquired hypothyroidism]Onset: 100701-64-8842Aigxvxc Past or Other Problems Problem ClassificationProblemDateDocumented DateEpisodic/ChronicAbdominal pain (20 sources)Lower abdominal pain; Translations: [Abdominal pain]Onset: 948923-70-4906XxeevhjzQvbth bronchitis (20 sources)Acute bronchitis co-occurrent with wheeze; Translations: [Acute bronchitis, unspecified]Onset: 025466-84-6580UjtnkzgpDfmjdhx tract disease (20 sources)Calculus of gallbladder with cholecystitis; Translations: [Calculus of gallbladder with chronic cholecystitis without obstruction]Onset: 03-16-2023 53-25-1743GpbxzohgMcdieca dysrhythmias (20 sources)Palpitations; Translations: [Tachycardia]Onset: EpisodicChronic obstructive pulmonary disease and bronchiectasis (20 sources)Bronchitis; Translations: [Bronchitis, not specified as acute or chronic]Onset: 874761-25-6146RueaebwxMzgszfsmxd associated with dizziness or vertigo (20 sources)Vertigo of central origin; Translations: [Vertigo of central origin] Onset: 049646-34-1241GjfxaegeItvcqlci mellitus without complication (20 sources)Prediabetes; Translations: [Prediabetes]Onset: 02-14-2023 Resolved: 418387-64-9516SmgxbctgQbrnk disorders and dislocations; trauma-related (20 sources)Tear of lateral meniscus of knee; Translations: [Other tear of lateral meniscus, current injury, unspecified knee, initial encounter]Onset: 789625-95-8819NdhwbvvsXpuqygr on above:rightMalaise and fatigue (20 sources)Fatigue; Translations: [Other post infection and related fatigue syndromes]Onset: 545266-86-2309OxftckxdWbrb disorders (20 sources)Depressive disorder; Translations: [Depression]Onset: 02-14-2023 Resolved: 481277-00-8739QtxtgkoDxjmbp and vomiting (20 sources)Nausea; Translations: [Nausea]Onset: 12-27-2022 Resolved: 364680-34-1462NjnopqbnSodma and unspecified benign neoplasm (20 sources)Lipoma of abdominal wall; Translations: [Benign lipomatous neoplasm of skin and subcutaneous tissueof trunk]Onset: 02-14-2023 Resolved: 907150-85-4653OkyvgejxRpxpd circulatory disease (4 sources)Postural orthostatic tachycardia syndrome ; Translations: [Postural orthostatic tachycardia syndrome (POTS)]Onset: 536248-25-8070IrudoxchUggby connective tissue disease (20 sources)Muscle pain; Translations: [Myalgia, unspecified site]Onset: 08-02-2022 Resolved: 234169-80-5976BozvlynmDkyzo gastrointestinal disorders (20 sources)Central abdominal mass; Translations: [Periumbilic swelling, mass or lump]Onset: 560345-74-5749HjuefopwBepye gastrointestinal disorders (1 source)Abdominal distension (gaseous); Translations: [Abdominal bloating] Onset: 36-45-9040PdxotjdtAalyl infections; including parasitic (20 sources)Personal history of other infectious and parasitic diseases; Translations: [Personal history of COVID-19]Onset: 632958-40-4934Thnpnwtj Other injuries and conditions due to external causes (20 sources)H/O: injury; Translations: [Personal history of other (healed) physical injury and trauma]Onset: 758440-46-1346UwsqrfyxTanhs nervous system disorders (20 sources)Acute postoperative pain; Translations: [Other acute postprocedural pain]Onset: 05-26-2023 Resolved: 873597-14-4082VscrrmxgFkbfy nutritional; endocrine; and metabolic disorders (1 source)Abnormal weight loss; Translations: [Unintentional weight loss]Onset: 00-39-5536LjptoywxQzchg nutritional; endocrine; and metabolic disorders (1 source)Anorexia; Translations: [Decreased appetite]Onset: 69-30-8342Jfurwmpd Other skin disorders (20 sources)Mass of subcutaneous tissue of abdominal wall; Translations: [Localized swelling, mass and lump, trunk]Onset: 871267-45-0412Cwocbaoy Other skin disorders (20 sources)Pharyngeal swelling; Translations: [Localized swelling, mass and lump, neck]Onset: 835351-89-8463BlepvqjpBidmb upper respiratory infections (20 sources)Frontal sinusitis; Translations: [Chronic frontal sinusitis]Onset: 08-02-2022 Resolved: 169500-03-4216GbckirtOiamt upper respiratory infections (20 sources)Acute upper respiratory infection, unspecified; Translations: [Acute recurrent frontal sinusitis]Onset: 94-67-4517AbctwzflUwkrwwtt codes; unclassified (20 sources)Face goes red; Translations: [Flushing]Onset: 08-02-2022 Resolved: 573380-41-0067LfhznnvtQjiqrzbg codes; unclassified (2 sources)Other specified health status; Translations: [Other specified health status]Onset: 98-63-5254ZzboanqsUccupoedwcw injury; contusion (20 sources)Superficial injury of neck; Translations: [Superficial foreign body of unspecified part of neck, initial encounter]Onset: 12-29-9284MkeqtjxbKuaqorj (14 sources)Syncope; Translations: [Syncope and collapse]Onset: 05-08-2024 12-09-1651ZgttzvqrTmhsttvpmnet (1 source)Contact with and (suspected) exposure to covid-19 Z20.822Onset: 11-23-2021 Resolved: 88-79-1036Itxeipvtywdo (1 source)Cough R05.9Unclassified (1 source)Onset: 611642-71-2562Xaktqfo tract infections (20 sources)Acute cystitis; Translations: [Acute cystitis with hematuria]Onset: 675307-44-5859OssuxqnaDhpxv infection (20 sources)Disease caused by 2019-nCoV; Translations: [COVID-19]Onset: 05-26-2023 Resolved: 635258-91-4610AfeghoxaAhmdz infection (3 sources)COVID-19; Translations: [Disease caused by 2019-nCoV]Onset: 11-23-2021 Resolved: 11-23-2021 Results Test NameValueInterpretationReference RangeFacilityUS PELVIS W/ TRANSVAGINALon 83-79-0930[place] [address] Ultrasound Report Signed Patient: ADINA MARTINEZ MR#: [id number] : 1995 Acct:[id number] Age/Sex: 29 / F ADM Date: 11/15/24 Loc: Attending Dr: Db Keane D.O. Ordering Physician: Db Keane D.O. Date of Service: 11/15/24 Procedure(s): US pelvis w/ transvaginal Accession Number(s): [id number] cc: Db Keane D.O.; ILNNEA HACKETT [address] [address] Patient Name: ADINA MARTINEZ MRN: [id number] date: 1995 Sex: F Assigned Patient Location: Current Patient Location: US Accession/Order Number: [id number] Exam Date: 11/15/2024 07:01 Report Date: 11/15/2024 09:32 At the request of: DB KEANE DO Procedure: US pelvis w/ transvaginal ULTRASOUND PELVIS WITH TRANSVAGINAL COMPARISON: 11/17/2022 CLINICAL DATA: Chronic worsening bloating and pelvic pain Real-time ultrasound evaluation the pelvis was performed utilizing both a transabdominal and transvaginal approach. TRANSABDOMINAL: Estimated uterine size is approximately 9.8 x 4.5 x 6.2 cm. No focal myometrial abnormalities are seen. The endometrial lining is estimated at 3-4 mm. Only the right ovary is identified. TRANSVAGINAL: Transvaginal scans were performed to better evaluate the uterus and adnexa. By this approach, no focal myometrial abnormalities are noted. The endometrial lining is estimated at 8 mm. Both ovaries are identified. The right measures 4.0 x 1.8 x 1.7 cm. The left ovary measures 3.3 x 1.5 x 1.8 cm . Small follicles are present. There are no dominant adnexal cysts. There is documentation of ovarian blood flow. No free fluid is seen. US/US pelvis w/ transvaginal IMPRESSION: WITHIN NORMAL LIMITS. Impression dictated by: Lori Valenzuela M.D. 11/15/2024 9:32 AM Dictation Location: [place] [address] Electronically authenticated by: [id number] Y Date: 11/15/2024 09:32 Dictated By: Lori Valenzuela M.D. Signed By: 11/15/24 0934 DD/ TD/TT: Furnace Puncher:TBHRadiology, Radiologist, - 11/15/2024 [place] [address] Ultrasound Report Signed Patient: ADINA MARTINEZ MR#: [id number] : 1995 Acct:[id number] Age/Sex: 29 / F ADM Date: 11/15/24 Loc: US Attending Dr: Db Keane D.O. Ordering Physician: Db Keane D.O. Date of Service: 11/15/24 Procedure(s): US pelvis w/ transvaginal Accession Number(s): [id number] cc: Db Keane D.O.; LINNEA HACKETT [place] [id number] Patient Name: ADINA MARTINEZ MRN: [id number] date: 1995 Sex: F Assigned Patient Location: US Current Patient Location: Accession/Order Number: [id number] Exam Date: 11/15/2024 07:01 Report Date: 11/15/2024 09:32 At the request of: DB KEANE DO Procedure: US pelvis w/ transvaginal ULTRASOUND PELVIS WITH TRANSVAGINAL COMPARISON: 11/17/2022 CLINICAL DATA: Chronic worsening bloating and pelvic pain Real-time ultrasound evaluation the pelvis was performed utilizing both a transabdominal and transvaginal approach. TRANSABDOMINAL: Estimated uterine size is approximately 9.8 x 4.5 x 6.2 cm. No focal myometrial abnormalities are seen. The endometrial lining is estimated at 3-4 mm. Only the right ovary is identified. TRANSVAGINAL: Transvaginal scans were performed to better evaluate the uterus and adnexa. By this approach, no focal myometrial abnormalities are noted. The endometrial lining is estimated at 8 mm. Both ovaries are identified. The right measures 4.0 x 1.8 x 1.7 cm. The left ovary measures 3.3 x 1.5 x 1.8 cm . Small follicles are present. There are no dominant adnexal cysts. There is documentation of ovarian blood flow. No free fluid is seen. US/US pelvis w/ transvaginal IMPRESSION: WITHIN NORMAL LIMITS. Impression dictated by: Lori Valenzuela M.D. 11/15/2024 9:32 AM Dictation Location: [place] [address] Electronically authenticated by: [id number] Y Date: 11/15/2024 09:32 Dictated By: Lori Valenzuela M.D. Signed By: 11/15/2434 DD/ 1 TD/TT: Furnace Puncher: JAIME HealthcareRadiology Study observation (narrative)NOM HealthcareUS PELVIS W/ TRANSVAGINALOrdered By: Radiologist Radiology on 05-95-6627VV[facility] Work Phone: cNNURSEon [phone] Visit (GASTPE) JUANADINA ([id number]) 1995 F Date Time Provider Department 11/05/24 9:00 AM NURSE BEATRICE [facility] During your visit today, we recorded the following information about you: Ludy Fabian MA 11/05/2024 11:33 AM Signed Glucose - SIBO Hydrogen Breath Test November 05, 2024 Referring Physician: Irma Nava APRN.EMBROIDERY PATTERNMAKER Indication Nausea and Vomiting Prep: 4 weeks following: none 1 hour before: No Smoking Day of test - No gum chewing Baseline Hydrogen: 16 Methane: 9 Ludy Fabian MA Time given: 8:40am 50 grams / 50 grams Clock time start: 8:45am 15 minutes Hydrogen: 30 Methane: 9 Ludy Fabian MA 30 minutes Hydrogen: 22 Methane: 11 Ludy Fabina MA 45 minutes Hydrogen: 31 Methane: 11 Ludy Fabian MA 1 hour Hydrogen: 24 Methane: 10 Ludy Fabian MA 1 hour, 15 minutes Hydrogen: 23 Methane: 10 Ludy Fabian MA 1 hour, 30 minutes Hydrogen: 20 Methane: 8 Ludy Fabian MA Symptoms developed during the study: None Patient Results Preliminary Test Results (not given to patient): Pending Ludy Fabian MA Referring Provider: IRMA NAVA [[id number]] Allergies As of Date: 11/05/2024 Noted Allergy Reaction BEES 02/03/2023 10 - Anaphylaxis BERRIES 02/03/2023 4 - Hives Comments: raspberries Date Reviewed: 08/29/2024 Reviewed by: Filomena Brink, CONY - Fully Assessed Visit Diagnosis:Nausea and vomiting, unspecified vomiting type [R11.2] Order(s):BREATH TEST GLUCOSE [4475877] Order #: [id number] Prescriptions as of 11/05/2024 - pantoprazole DR [...] 03/28/2023 Encounter Status:Closed by LUDY FABIAN on 11/05/24NormalCRegency Hospital ToledoGlucose challenge (hydrogen breath test) (Exhl gas) [Interp]Ordered By: Uriel Marmolejo on 83-63-3642Pugkxihzvfddgt and review of laboratory results [facility] Work Phone: [facility] Work Phone: Radiology Study observation (narrative)[facility] Work Phone: Glucose challenge (hydrogen breath test) (Exhl gas) [Interp]on 15-67-6929Uzs have completed your breath test. Your glucose breath test is negative. (H2 or CH4 increases at least 12ppm over the lowest preceding value within the test period may be indicative of a positive study.) Please follow up with the ordering physician with instructions for next steps. Uriel Marmolejo MD PROVATIONGlucose - SIBO Hydrogen Breath Test November 05, 2024 Referring Physician: Irma Nava APRN.EMBROIDERY PATTERNMAKER Indication Nausea and Vomiting Prep: 4 weeks following: none 1 hour before: No Smoking Day of test - No gum chewing Baseline Hydrogen: 16 Methane: 9 Ludy Fabian MA Time given: 8:40am 50 grams / 50 grams Clock time start: 8:45am 15 minutes Hydrogen: 30 Methane: 9 Ludy Restifo, MA 30 minutes Hydrogen: 22 Methane: 11 Uldy Restifo, MA 45 minutes Hydrogen: 31 Methane: 11 Ludy Restifo, MA 1 hour Hydrogen: 24 Methane: 10 Ludy Restifo, MA 1 hour, 15 minutes Hydrogen: 23 Methane: 10 Ludy Restifo, MA 1 hour, 30 minutes Hydrogen: 20 Methane: 8 Ludy Restifo, MA Symptoms developed during the study: None Patient Results Preliminary Test Results (not given to patient): Pending Ludy Restifo, MA [employer] MESENTERIC ARTERY CMPLT VAS LABon 30-30-6122YS MESENTERIC ARTERY CMPLT VAS LABNon-Invasive Vascular Laboratory [facility] F30 Renal or Mesenteric Duplex Bilateral/Complete Date [...] stenosis. Technologist: Vera Balderas RVT Ordering physician: IRMA NAVA Interpreting physician: KENNY Waters DO Final CC [facility] : [id number] See Link below for ImageNormalClevelReplaced by [facility],APTIMA HPV,AGE GDLN on 93-30-7706CFU GDLN ACOG TESTINGNote.NOMS HealthcareComment on above:TESTS RESULT FLAG UNITS REF RANGE LAB Clinician Provided Cytology Information Source.............Cervix;Endocervix No. of containers..01 ThinPrep Vial Age Algo ACOG Davida... FLAG LEGEND: L-Low Normal,H-High Normal,LL-Alert Low,HH-Alert High <-Panic Low,>-Panic High,A-Abnormal,AA-Critical Abnormal Performed at: 01 =[address] [address] Eloisa Perez MD, IGP, RFX APTIMA HPV ASCUNote.NOMS HealthcareComment on above:TESTS RESULT FLAG UNITS REF RANGE LAB DIAGNOSIS: 02 NEGATIVE FOR INTRAEPITHELIAL LESION OR MALIGNANCY. Specimen adequacy: 02 Satisfactory for evaluation. Endocervical and/or squamous metaplastic cells (endocervical component) are present. Performed by: Brad Cunningham, Electrical Engineering Technician ([facility]) . 02 Note: Note 02 The Pap [...] <-Panic Low,>-Panic High,A-Abnormal,AA-Critical Abnormal Performed at: [address] [facility] [address] [address] Eloisa Perez MD, Performed at: =G - [facility] [address] [id number] Director Of Nursing: Eloisa Perez MD, Phone: [phone] Performed at: - [facility] [id number] Director Of Nursing: Eloisa Perez MD, Phone: [phone] BRUSH-SPATULA CERVIX ENDOCERVIX CLINISYNCNOMS HealthcareABO/Rhon 97-17-3853KTE/RhPositiveInvalid Interpretation [facility] HospitalComment on above:Performed By: #### [id number] #### [facility] [address] [place] [address]AUS/Rh History Checkon 82-02-4072DOI/Rh History CheckPatient discharged priorNoThe Bellevue HospitalComment on above:Performed By: #### [id number] #### [facility] [address], [place] [address]TTHHru 20-38-9843MVBX Gel InterpNegativeNoThe Bellevue HospitalComment on above:Performed By: #### [id number] #### [facility] [address], [place] [address] ID#on [id number] Interpretation [facility] HospitalComment on above:Performed By: #### [id number] #### [facility] [address], [place] [address]ZTOL ABO/RHon 58-34-2718XTRF ABO/RHPositiveNOSt. Luke's Hospital BLOOD BANK ID#on [id number] BBID#[id number] [facility] Panel Information on 32-79-0370OdkvuqBrandenburg Center Laboratory [address], [place] [address]LBKRIRUWZGJCD HealthcareAlanine aminotransferase [Enzymatic activity/volume] in Serum or PlasmaOrdered By: Black Zaidi on 84-77-9411WWV [Catalytic activity/Vol]17 U/LNormal7-52Gal[facility] Community HospitalComment on above:Performed By: #### KARLAR CMP, PILLAR CBC, PILLAR LIPID #### [facility] [address] [place] [address] USAAlbumin [Mass/volume] in Serum or Plasma by Bromocresol green (BCG) dye binding methoOrdered By: Black Zaidi on 66-62-3067Eagozjy BCG dye [Mass/Vol]4.1 g/dL3.5-5.7FGuernsey Memorial HospitalAlkaline phosphatase [Enzymatic activity/volume] in Serum or PlasmaOrdered By: Black Zaidi on 48-95-5133PYS [Catalytic activity/Vol]72 U/CNlqsog32-685PwwfspncfGalion Community HospitalComment on above:Performed By: #### KARLAR CMP, PILLAR CBC, PILLAR LIPID #### [facility] [address] [place] [address] USAAspartate aminotransferase [Enzymatic activity/volume] in Serum or PlasmaOrdered By: Black Zaidi on 21-96-9483BRD [Catalytic activity/Vol] 16 U/NUcojuw21-48OybgohsnnGalion Community HospitalComment on above:Performed By: #### KARLAR CMP, PILLAR CBC, PILLAR LIPID #### [facility] [address] [place] [address] USABasophils [#/volume] in Blood by Automated countOrdered By: Black Zaidi on 29-66-3953Darotslpr (Bld) [#/Vol]0.1 10*3/uLNormal0.0-0.2 [facility] HospitalComment on above:Result Comment: PERFORMED BY: [place] [address] PATHOLOGIST WINDING MACHINE OPERATOR BENOIT MCKEON M.D.Performed By: #### PILLAR CMP, PILLAR CBC, PILLAR LIPID #### [place] [address] USABasophils/100 leukocytes in Blood by Automated count Ordered By: Black Zaidi on 23-61-1958Knzoxgvex/100 WBC (Bld)0.9 %Normal.[facility] HospitalComment on above:Performed By: #### PILLAR CMP, PILLAR CBC, PILLAR LIPID #### [place] [address] USABilirubin.total [Mass/volume] in Serum or PlasmaOrdered By: Black Zaidi on 19-35-5876Bxgyeixhy [Mass/Vol]0.4 mg/dLNormal0.3-1.0[facility] HospitalComment on above:Performed By: #### PILLAR CMP, PILLAR CBC, PILLAR LIPID #### [place] [address] USACalcium [Mass/volume] in Serum or PlasmaOrdered By: Black Zaidi on 90-08-6492Qgmghdg [Mass/Vol]8.6 mg/dLNormal8.6-10.3FGuernsey Memorial HospitalComment on above:Performed By: #### PILLAR CMP, PILLAR CBC, PILLAR LIPID #### [facility] [address] [place] [address] USACarbon dioxide, total [Moles/volume] in Serum or Plasma Ordered By: Black Zaidi on 65-60-5713QQ6 [Moles/Vol]25.2 mmol/TTiblms10.0-31.0 [facility] HospitalComment on above:Performed By: #### PILLAR CMP, PILLAR CBC, PILLAR LIPID #### [facility] [address] [place] [address] USAChloride [Moles/volume] in Serum or PlasmaOrdered By: Black Zaidi on 68-11-1586Dsouadri [Moles/Vol]106 mmol/FIxkicj05-003PdhhosmnjGalion Community HospitalComment on above:Performed By: #### PILLAR CMP, PILLAR CBC, PILLAR LIPID #### [facility] [address] [place] [address] USACholesterol [Mass/volume] in Serum or PlasmaOrdered By: Black Zaidi on 41-45-3286Imcdgtkymbi [Mass/Vol]143 mg/tNScndpe827-357PfupahjcwGalion Community HospitalComment on above:Chol less than 200 mg/dl low riskChol 201-239 mg/dl borderline riskChol 240 mg/dl and greater high riskResult Comment: Chol less than 200 mg/dl low risk Chol 201-239 mg/dl borderline risk Chol 240 mg/dl and greater high riskPerformed By: #### PILLAR CMP, PILLAR CBC, PILLAR LIPID #### [facility] [address] [place] [address] USACholesterol in HDL [Mass/volume] in Serum or PlasmaOrdered By: Black Zaidi on 59-15-7124Ylzoiqbmxdg in HDL [Mass/Vol]37 mg/uZVddzpl35-34 [facility] HospitalComment on above:HDL CHOL ATP-III CLASSIFICATION Cardiovascular RiskHDL > or equal to 60 mg/dL LOWHDL < 40 mg/dL HIGHResult Comment: HDL CHOL ATP-III CLASSIFICATION Cardiovascular Risk HDL > or equal to 60 mg/dL LOW HDL < 40 mg/dL HIGHPerformed By: #### PILLAR CMP, PILLAR CBC, PILLAR LIPID #### [facility] [address] [place] [address] USACholesterol in LDL Calc [Mass/Vol]Ordered By: Black Zaidi on 86-68-6576Brkmrhgrejz in LDL [Mass/Vol]93 mg/dL0-100[facility] HospitalComment on above:LDL ATP III CLASSIFICATIONLDL less than 100 mg/dL OptimalLDL 100-129 mg/dL Near or above sppakbsSEM817-994 mg/dL Borderline highLDL 160-189 mg/dL HighLDL greater than 189 mg/dL Very highCholesterol in VLDL Calc [Mass/Vol]Ordered By: Black Zaidi on 81-28-2294Qtjvsnxxcpr in VLDL [Mass/Vol]13 mg/dLGalion Community HospitalCreatinine [Mass/volume] in Serum or PlasmaOrdered By: Black Zaidi on 11-24-7755Buoarycqbc [Mass/Vol]0.78 mg/dLNormal0.60-1.20[facility] HospitalComment on above:Performed By: #### PILLAR CMP, PILLAR CBC, PILLAR LIPID #### [place] [address] USAEmployee Comp Metabolic Panelon 10-98-5360Umsqrle [Mass/Vol]4.1 g/dLNormal3.5-5.7The [facility] Physician GroupComment on above: Performed By: #### PILLAR CMP, PILLAR CBC, PILLAR LIPID #### [place] [address] USAGFR/1.73 sq M.predicted MDRD (S/P/Bld) [Vol rate/Area] mL/min/{1.73_m2}NormalThe [facility] Physician [facility] Health BiloxiComment on above:Performed By: #### PILLAR CMP, PILLAR CBC, PILLAR LIPID #### [place] [address] USAEmployee Complete Blood Counton 96-85-5213Ewyi Corpuscular HGB Conc33.5 g/tHAkppdl20.0-35.0The [facility] Physician GroupComment on above: Performed By: #### PILLAR CMP, PILLAR CBC, PILLAR LIPID #### [facility] [address] [place] [address] USANRBC%0.1 /100{WBC}Normal0-0.5[facility] Comment on above:Performed By: #### PILLAR CMP, PILLAR CBC, PILLAR LIPID #### [facility] [address] [place] [address] USAWhite Blood Count8.7 [CFU]/mLNormal3.8-11.6[facility] Physician GroupComment on above:Performed By: #### PILLAR CMP, PILLAR CBC, PILLAR LIPID #### [facility] [address] [place] [address] USAEmployee Lipid Profileon 45-33-9714CJV Cholesterol,Uvnpfbuony56 mg/dLNormal0-100The [facility] Physician GroupComment on above:Result Comment: LDL ATP III CLASSIFICATION LDL less than 100 mg/dL Optimal LDL 100-129 mg/dL Near or above optimal LDL 130-159 mg/dL Borderline high LDL 160-189 mg/dL High LDL greater than 189 mg/dL Very highPerformed By: #### PILLAR CMP, PILLAR CBC, PILLAR LIPID #### [facility] [address] [place] [address] USATriglyceride w/Dhthuu84 mg/dLNormal0-149The [facility] Physician GroupComment on above:Result Comment: TRIG ATP III CLASSIFICATION TRIG less than 150 mg/dL Normal TRIG 150-199 mg/dL Borderline high TRIG 200-500 mg/dL High TRIG greater than 500 mg/dL Very high Standard traceable to the Center for Disease Conrtrol and Prevention (CDC) test method.Performed By: #### PILLAR CMP, PILLAR CBC, PILLAR LIPID #### [facility] [address] [place] [address] USAVLDL ZVULQBOSBUY58 mg/dLNormalThe [facility] Hospital Physician GroupComment on above:Performed By: #### PILLAR CMP, PILLAR CBC, PILLAR LIPID #### [facility] [address] [place] [id number] USAEosinophils [#/volume] in Blood by Automated countOrdered By: Black Zaidi on 33-09-7526Sbhuaubmgft (Bld) [#/Vol]0.1 10*3/uLNormal0.0-0.45 [facility] HospitalComment on above:Performed By: #### PILLAR CMP, PILLAR CBC, PILLAR LIPID #### [facility] [address] [place] [id number] USAEosinophils/100 leukocytes in Blood by Automated count Ordered By: Black Zaidi on 01-50-0007Ruypjukilug/100 WBC (Bld)0.8 %Normal. [facility] HospitalComment on above:Performed By: #### PILLAR CMP, PILLAR CBC, PILLAR LIPID #### [facility] [address] [place] [address] USAErythrocyte distribution width [Ratio] by Automated count Ordered By: Black Zaidi on 28-28-5644Jpidsewrwky distribution width (RBC) [Ratio] 14.1 %Tyqgsf25.9-15.3FGuernsey Memorial HospitalComment on above:Performed By: #### PILLAR CMP, PILLAR CBC, PILLAR LIPID #### [place] [address] USAErythrocytes [#/volume] in Blood by Automated countOrdered By: Black Zaidi on 06-41-0042RBU (Bld) [#/Vol]4.14 10*6/uLNormal3.60-5.00 [facility] HospitalComment on above:Performed By: #### PILLAR CMP, PILLAR CBC, PILLAR LIPID #### [facility] [address] [place] [address] USAGlucose [Mass/volume] in Serum or PlasmaOrdered By: Black Zaidi on 01-90-8894Alwgugq [Mass/Vol]92 mg/dJXjsptm34-571PjoolpixdGalion Community HospitalComascension st. john hospital on above:Performed By: #### PILLAR CMP, PILLAR CBC, PILLAR LIPID #### [facility] [address] [place] [address] USAHematocrit [Volume Fraction] of Blood by Automated count Ordered By: Black Zaidi on 79-44-6134Sxlcyhgpuc (Bld) [Volume fraction]36.0 % Qkovti68.0-46.4FGuernsey Memorial HospitalComment on above:Performed By: #### PILLAR CMP, PILLAR CBC, PILLAR LIPID #### [place] [address] USAHemoglobin [Mass/volume] in BloodOrdered By: Black Zaidi on 98-01-1121Qqjzffckds (Bld) [Mass/Vol]12.0 g/gOMfxxev93.8-15.4Fire[facility] Regional Medical CenterComment on above:Performed By: #### PILLAR CMP, PILLAR CBC, PILLAR LIPID #### [facility] [address] [place] [address] USALeukocytes [#/volume] corrected for nucleated erythrocytes in Blood by Automated counOrdered By: Black Zaidi on 32-36-6220VPC corrected for nucl RBC Auto (Bld) [#/Vol]8.7 10*3/uL3.8-11.6FGuernsey Memorial Hospital Leukocytes [#/volume] in Blood by Automated countOrdered By: Black Zaidi on 92-19-3561RTB (Bld) [#/Vol]8.7 10*3/uLNormal3.8-11.6FGuernsey Memorial HospitalComment on above:Performed By: #### PILLAR CMP, PILLAR CBC, PILLAR LIPID #### [facility] [address] [place] [address] USALymphocytes [#/volume] in Blood by Automated countOrdered By: Black Zaidi on 00-67-0448Hdtfwtwrvxn (Bld) [#/Vol]2.1 10*3/uLNormal1.00-4.8 [facility] HospitalComment on above:Performed By: #### PILLAR CMP, PILLAR CBC, PILLAR LIPID #### [facility] [address] [place] [address] USALymphocytes/100 leukocytes in Blood by Automated count Ordered By: Black Zaidi on 55-61-2550Fllkfkvjxye/100 WBC (Bld)24.0 %Normal. [facility] HospitalComment on above:Performed By: #### PILLAR CMP, PILLAR CBC, PILLAR LIPID #### [facility] [address] [place] [address] USAMCH [Entitic mass] by Automated countOrdered By: Black Zaidi on 01-22-5674WRH (RBC) [Entitic mass]29.1 bkDdxbco47.7-34.3FGuernsey Memorial HospitalComment on above:Performed By: #### PILLAR CMP, PILLAR CBC, PILLAR LIPID #### [facility] [address] [place] [phone] USAHC Auto (RBC) [Mass/Vol]Ordered By: Black Zaidi on 85-56-0553YQPM (RBC) [Mass/Vol]33.5 g/dL32.0-35.0[facility] HospitalMCV [Entitic volume] by Automated countOrdered By: Black Zaidi on 03-43-3160ATK (RBC) [Entitic vol]86.8 tJRfvxpy78-303UwoltwgtpGalion Community HospitalComment on above:Performed By: #### PILLAR CMP, PILLAR CBC, PILLAR LIPID #### [facility] [address] [place] [address] USAMonocytes [#/volume] in Blood by Automated countOrdered By: Black Zaidi on 00-10-2668Ppaisijmg (Bld) [#/Vol]0.4 10*3/uLNormal0.0-0.8 [facility] HospitalComment on above:Performed By: #### PILLAR CMP, PILLAR CBC, PILLAR LIPID #### [facility] [address] [place] [phone] USAMonocytes/100 leukocytes in Blood by Automated count Ordered By: Black Zaidi on 17-29-8340Flmzhqdlw/100 WBC (Bld)4.2 %Normal.[facility] HospitalComment on above:Performed By: #### PILLAR CMP, PILLAR CBC, PILLAR LIPID #### [facility] [address] [place] [phone] USANeutrophils [#/volume] in Blood by Automated countOrdered By: Black Zaidi on 16-33-9838Pjpvbsmfnhk (Bld) [#/Vol]6.1 10*3/uLNormal1.8-7.7 [facility] HospitalComment on above:Performed By: #### PILLAR CMP, PILLAR CBC, PILLAR LIPID #### [facility] [address] [place] [address] USANeutrophils/100 leukocytes in Blood by Automated count Ordered By: Black Zaidi on 64-59-2599Gqincybgplu/100 WBC (Bld)70.1 %Normal. [facility] HospitalComment on above:Performed By: #### PILLAR CMP, PILLAR CBC, PILLAR LIPID #### [facility] [address] [place] [address] USANo Panel InformationOrdered By: Black Zaidi on 10-02-2024 Estimated GFR (CKD-EPI)> 60.0 mL/MinGalion Community HospitalPharmacy Creatinine Clearance (ChemN/AFGuernsey Memorial HospitalNucleated erythrocytes [Presence] in Blood by Automated countOrdered By: Black Zaidi on 25-57-9840Wqtxvygtx RBC Auto Ql (Bld)0.1 /100{WBC}0-0.5FGuernsey Memorial HospitalPlatelet mean volume [Entitic volume] in Blood by Automated count Ordered By: Black Zaidi on 76-08-5177Lbzshlag mean volume (Bld) [Entitic vol]8.6 fLNormal6.3-10.7FGuernsey Memorial HospitalComment on above:Performed By: #### PILLAR CMP, PILLAR CBC, PILLAR LIPID #### [facility] [address] [place] [address] USAPlatelets [#/volume] in Blood by Automated countOrdered By: Black Zaidi on 39-10-4750Lmtfswznp (Bld) [#/Vol]308 10*3/qXVnbfga169-958 [facility] HospitalComment on above:Performed By: #### PILLAR CMP, PILLAR CBC, PILLAR LIPID #### [facility] [address] [place] [address] USAPotassium [Moles/volume] in Serum or PlasmaOrdered By: Black Zaidi on 74-79-3387Cxecwzeyn [Moles/Vol]4.3 mmol/LNormal3.5-5.1FGuernsey Memorial HospitalComment on above:Performed By: #### PILLAR CMP, PILLAR CBC, PILLAR LIPID #### [facility] [address] [place] [address] USAProtein [Mass/volume] in Serum or PlasmaOrdered By: Black Zaidi on 93-19-0959Bdhcjgs [Mass/Vol]6.5 g/dLNormal6.4-8.9[facility] HospitalComment on above:Performed By: #### PILLAR CMP, PILLAR CBC, PILLAR LIPID #### [facility] [address] [place] [address] USASerum globulin measurement by calculation (mass/volume) Ordered By: Black Zaidi on 08-64-8985Necsvphq (S) [Mass/Vol]2.4 g/dLNormal [facility] HospitalComment on above:Performed By: #### PILLAR CMP, PILLAR CBC, PILLAR LIPID #### [facility] [address] [place] [address] USASerum or plasma albumin/globulin mass ratioOrdered By: Black Zaidi on 89-81-3597Mqajoae/Globulin [Mass ratio]1.7 {ratio}NormalGalion Community HospitalComment on above:Performed By: #### PILLAR CMP, PILLAR CBC, PILLAR LIPID #### [place] [address] USASerum or plasma anion gap determinationOrdered By: Black Zaidi on 72-66-1214Qpvdb gap [Moles/Vol]10.1 mmol/LNormal6.0-15.0[facility] HospitalComment on above:Performed By: #### PILLAR CMP, PILLAR CBC, PILLAR LIPID #### [facility] [address] [place] [address] USASerum or plasma total cholesterol/high density lipoprotein (HDL) cholesterol mass ratOrdered By: Black Zaidi on 10-02-2024 Cholesterol.total/Cholesterol in HDL [Mass ratio]3.9 {ratio}Normal<5.0[facility] HospitalComment on above:Result Comment: PERFORMED BY: [place] [address] PATHOLOGIST WINDING MACHINE OPERATOR BENOIT MKCEON M.D.Performed By: #### PILLAR CMP, PILLAR CBC, PILLAR LIPID #### [facility] [address] [place] [address] USASodium [Moles/volume] in Serum or PlasmaOrdered By: Black Zaidi on 39-94-3643Vfpmzc [Moles/Vol]137 mmol/QGppudr092-130AtnwlyxwmGalion Community HospitalComment on above:Performed By: #### PILLAR CMP, PILLAR CBC, PILLAR LIPID #### [facility] [address] [place] [address] USATriglyceride [Mass/volume] in Serum or PlasmaOrdered By: Black Zaidi on 21-77-3122Lbfvaddplsem [Mass/Vol]65 mg/dL0-149[facility] HospitalComment on above:TRIG ATP III CLASSIFICATIONTRIG less than 150 mg/dL NormalTRIG 150-199 mg/dL Borderline highTRIG 200-500 mg/dL High TRIG greater than 500 mg/dL Very highStandard traceable to the Center for Disease Co nrtrol and Prevention (CDC) test method.Urea nitrogen [Mass/volume] in Serum or PlasmaOrdered By: Black Zaidi on 21-85-8922Oggd nitrogen [Mass/Vol]9 mg/dLNormal 7-25[facility] HospitalComment on above:Performed By: #### PILLAR CMP, PILLAR CBC, PILLAR LIPID #### [facility] [address] [place] [address] USANM GASTRIC EMPTYING SOLIDon 09-27-2024* * *Final Report* * * DATE OF EXAM: Sep 24 2024 12:45PM [facility] 0017 - [place] GASTRIC EMPTYING SOLID [...] gastric emptying rate for the solid meal. Furnace Puncher: BRIT Transcribe Date/Time: Sep 27 2024 11:50A Dictated by : PIETRO JONES MD This examination was interpreted and the report reviewed and electronically signed by: PIETRO JONES MD on Sep 27 2024 11:51AM EST [id number]^AGFA_IDC^SI^ACNCCFRadiology, RadiologistMD - 09/27/2024 * * *Final Report* * [...] gastric emptying rate for the solid meal. Furnace Puncher: BRIT Transcribe Date/Time: Sep 27 2024 11:50A Dictated by : PIETRO JONES MD This examination was interpreted and the report reviewed and electronically signed by: PIETRO JONES MD on Sep 27 2024 11:51AM EST [id number]^AGFA_IDC^SI^ACN NOMS HealthcareNM GASTRIC EMPTYING SOLIDOrdered By: Radiologist Radiology on 16-88-2568NITTLakeland Regional Hospital Work Phone: NM GASTRIC EMPTYING SOLIDon 84-85-9851KU GASTRIC EMPTYING SOLID* * *Final Report* * * DATE OF [...] gastric emptying rate for the solid meal. Furnace Puncher: [facility] HOSPITALBri Transcribe Date/Time: Sep 27 2024 11:50A Dictated by : PIETRO JONES MD This examination was interpreted and the report reviewed and electronically signed by: PIETRO JONES MD on Sep 27 2024 11:51AM EST [id number]_[id number] [facility] Study observation (narrative)NOMS HealthcareUrine Cultureon 76-73-4644Haahmfia identified Cx Nom (U)<9,000 colonies/ml mixed bacterial skin contaminants 2 Days PERFORMED BY: [place] [address] PATHOLOGIST WINDING MACHINE OPERATOR BENOIT MCKEON M.D.NormalThe [facility] Carolina Hospital Physician GroupComment on above: Performed By: #### CUU #### [place] [address] USAUrine cultureOrdered By: Haily Ash on 09-16-2024 Bacteria identified Cx Nom (U)2 DaysGalion Community HospitalANES POSTPROC EVALon 20-31-9731FEOK POSTPROC EVALHNO ID: [id number] Author: SHERON RIVERA APRN.CHEMICAL WEIGHER Service: Anesthesiology Author Type: Nurse Corrugated Sheet Material Sheeter Type: Anesthesia Postprocedure Evaluation Filed: 08/30/2024 12:20 Note Text: POST ANESTHESIA EVALUATION NOTE : 1995 Procedure Summary Date: 08/29/24 Room / Location: Ambulatory Surgery Anesthesia Start: 1111 Anesthesia Stop: 1139 Procedures: EGD DIAGNOSTIC COLONOSCOPY DIAGNOSTIC Diagnosis: Nausea and vomiting, unspecified vomiting type Abdominal bloating Epigastric pain Scheduled Providers: Gene Parson MD Responsible Provider: Sheron Rivera APRN.CRNA Anesthesia Type: MAC ASA Status: [...] of care. Anesthesia Observations No Documentation SIGNATURE: Sheron Rivera APRN.CRNA PATIENT NAME: Adina Martinez DATE: August 30, 2024 TIME: 12:18 PM CSN: [id number]i Shrin[facility] Hospital PRE-OPon 87-60-3777JPUZ PRE-OPHNO ID: [id number] Author: SHERON RIVERA APRN.CRNA Service: Anesthesiology Author Type: Nurse Corrugated Sheet Material Sheeter Type: Anesthesia Preprocedure Evaluation Filed: 08/29/2024 11:03 Note Text: ANESTHESIOLOGY DAY OF SURGERY NOTE : 1995 Procedure Information Date/Time: 08/29/24 1115 Scheduled providers: Gene Parson MD Procedures: EGD DIAGNOSTIC COLONOSCOPY DIAGNOSTIC [...] obtained within 48 hours of Surgery/Procedure. SIGNATURE: Sheron Rivera APRN.CRNA PATIENT NAME: Adina Martinez DATE: August 29, 2024 TIME: 11:00 AM CSN: [id number] Hospital DaytonLONOSCOPYon 34-59-3502Wpqyq [facility] Patient Name: Adina Martinez Procedure Date: 08/29/2024 11:23 AM Date of : 1995 Admit Type: Outpatient Age: 29 Room: [facility] 1 Gender: Female Note Status: Finalized Attending MD: Gene Parson MD, [id number] Procedure: Colonoscopy Indications: Generalized abdominal pain Providers: [...] by the physician, the nurse and the rehabilitation aide/scheduler in the procedure room at 11:11. Mental [...] contact number available for (more content not included)...CCFRadiology, Radiologist, - 08/29/2024 [facility] Gastroenterology Gastrointestinal Endoscopy Patient Name: Adina Martinez Procedure Date: 08/29/2024 11:23 AM Date of : 1995 Admit Type: Outpatient Age: 29 Room: [place] [address] Gender: Female Note Status: Finalized Attending MD: Gene Parson MD, [id number] Procedure: Colonoscopy Indications: Generalized abdominal pain Providers: [...] by the physician, the nurse and the rehabilitation aide/scheduler in the procedure room at 11:11. Mental [...] home (ambulatory). Procedure Code(s): --- Professional --- 23762, Colonoscopy, flexible; diagnostic, including collection of specimen(s) by brushing or washing, when performed (separate procedure) Diagnosis Code(s): --- Professional --- R10.84, Generalized abdominal pain CPT copyright 2020 [employer]. All rights reserved. The codes documented in this report are preliminary and upon telephone assembler review may be revised to meet current compliance requirements. 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 Refer to note in patient chart for documentation of history and physical. Last Colonoscopy: none. The patient's first colonoscopy is today. Referring Physician: Irma Nava CNP (Referring MD), Linnea Hackett (Referring [...] by the physician, the nurse and the rehabilitation aide/scheduler in the procedure room at 11:11. Mental [...] home (ambulatory). Procedure Code(s): --- Professional --- 02207, Colonoscopy, flexible; diagnostic, including collection of specimen(s) by brushing or washing, when performed (separate procedure) Diagnosis Code(s): --- Professional --- R10.84, Generalized abdominal pain CPT copyright 2020 [employer]. All rights reserved. The codes documented in this report are preliminary and upon telephone assembler review may be revised to meet current compliance requirements. Scope In: 11:25:29 AM Scope Out: 11:38:57 AM MD Gene Sparks MD 08/29/2024 11:41:28 AM This report has been signed electronically by Gene Parson MD Number of Addenda: 0 Note Initiated On: 08/29/2024 11:23 AM (more content not included)...NormalKettering Health Springfieldlonoscopy study on [id number] [facility] Patient Name: Adina Martinez Procedure Date: 08/29/2024 11:23 AM Date of : 1995 Admit Type: Outpatient Age: 29 Room: [place] [address] Gender: Female Note Status: Finalized Attending MD: Gene Parson MD, [id number] Procedure: Colonoscopy Indications: Generalized abdominal pain Providers: [...] by the physician, the nurse and the rehabilitation aide/scheduler in the procedure room at 11:11. Mental [...] contact number available for (more content not included)...[facility] Study observation Narrativeon 65-62-9688Ypymc [facility] Patient Name: Adina Martinez Procedure Date: 08/29/2024 11:02 AM Date of : 1995 Admit Type: Outpatient Age: 29 Room: [place] [address] Gender: Female Note Status: Finalized Attending MD: Gene Parson MD, [id number] Procedure: Upper GI endoscopy Indications: Nausea with [...] by the physician, the nurse and the rehabilitation aide/scheduler in the procedure room at 11:11. Mental [...] Observe patient's clinical course. (more content not included)...[facility] Hospital PHYSICALon [id number] PHYSICALHNO ID: [id number] Author: GENE PARSON MD Service: Gastroenterology Author Type: Physician [...] organomegaly. Sedation Plan: MAC Additional Comments: None Gene Parson MDNormSelect Medical [facility] [place] PROGon 08-29-2024 NURSING PROGHNO ID: [id number] Author: TASIA EL RN Service: Nursing Author [...] Tasia El RN In Department: AMBULATORY SURGERY [facility] CenterNo Panel Informationon 30-27-3002Glkgqnfhk Study observation (narrative)[facility] HealthcareRadiology Study observation (narrative) [facility] HospitalPathology biopsy report Brodie (Tiss)on [id number] DISCLAIMER [facility] CenterComascension st. john hospital on above:Order Comment: Specimen Type: TISSUE SPECIMENOrdering Facility: [facility] Address: [address] [place], [place] [address]Result Comment: Laboratory Developed Test (LDT) Disclaimer: Performance characteristics of immunohistochemical, immunofluorescent, and chromogenic in-situ hybridization tests have been determined by the performing laboratory within [facility] Pathology and Laboratory Medicine Department ([facility], [facility], [facility], [facility], [facility], [facility], or [facility]) in a manner consistent with CLIA requirements. One or more of these tests may not have been cleared or approved by the FDA. [facility] is regulated under CLIA as qualified to perform high- complexity testing. These tests are used for clinical purposes. These should not be regarded asinvestigational or for research. Positive and negative controls stain appropriately.Performed By: #### 92886-5 ####[facility] LABCLIA [id number] [place] [id number] [facility] REPORTNormalCRegency Hospital ToledoComascension st. john hospital on above:Order Comment: Specimen Type: TISSUE SPECIMENOrdering Facility: [facility] Address: [address] [place], [place] [address]Result Comment: Surgical Pathology Report Case: [id number] Authorizing Provider: Gene Parson MD Collected: 08/29/2024 11:16 AM Ordering Location: Ambulatory Surgery Received: 08/29/2024 08:14 PM Pathologist: Ed Pruett MD, PhD Specimens: A) - Small Bowel, Duodenum, Biopsy, r/o celiac B) - Stomach, Biopsy, r/o h. pylori C) - Esophagus, Biopsy, r/o eoe and barrettsPerformed By: #### [id number] ####[facility] LABCLIA [id number] [address] [place] [address] CITIZENS BAPTISTFINKettering Health MiamisburgComment on above:Order Comment: Specimen Type: TISSUE SPECIMENOrdering Facility: [facility] Address: [address] [place], [place] [address]Result Comment: A. Duodenum, biopsy: - Duodenal mucosa with no significant diagnostic abnormality. B. Stomach, biopsy: - Reactive gastric antral and oxyntic mucosa with focal minimally active inflammation. - No evidence of H. pylori microorganisms on H&E sections. C. Esophagus, biopsy: - Reactive squamous mucosa and inflamed gastric cardia-type mucosa, negative for intestinal metaplasia. at 1549 EDTPerformed By: #### 03124-7 ####[facility] LABCLIA [id number] [address] [address] [facility] NormalMercer County Community Hospital on above:Order Comment: Specimen Type: TISSUE SPECIMENOrdering Facility: [facility] Address: [address] [place], [place] [address]Result Comment: Diagnostic interpretation performed at: [facility], [address] [place] [address] CLIA# [id number] Fiber Machine Tender: TILA Parraerformed By: #### 52807-0 ####[facility] LABCLIA [id number] [address] [place] [address] [facility] DESCRIPTIONOhioHealth Southeastern Medical [facility] Comment on above:Order Comment: Specimen Type: TISSUE SPECIMENOrdering Facility: [facility] Address: [address] [place], [place] [address]Result Comment: A. Small Bowel, Duodenum, Biopsy Received [...] 2024 12:14 AM Gross examination performed at [facility], [facility] [place], [place] [address]Performed By: #### 49822-4 ####[facility] LABCLIA [id number] [address] OF [facility] GI ENDOSCOPYon 11-11-5858Ndgkw [place] [facility] Gastrointestinal Endoscopy Patient Name: Adina Martinez Procedure Date: 08/29/2024 11:02 AM Date of : 1995 Admit Type: Outpatient Age: 29 Room: [place] [address] Gender: Female Note Status: Finalized Attending MD: Gene Parson MD, [id number] Procedure: Upper GI endoscopy Indications: Nausea with [...] by the physician, the nurse and the rehabilitation aide/scheduler in the procedure room at 11:11. Mental [...] Observe patient's clinical course. (more content not included)...CCFRadiology, Radiologist, - 08/29/2024 [facility] Gastroenterology Gastrointestinal Endoscopy Patient Name: Adina Martinez Procedure Date: 08/29/2024 11:02 AM Date of : 1995 Admit Type: Outpatient Age: 29 Room: [place] [address] Gender: Female Note Status: Finalized Attending MD: Gene Parson MD, [id number] Procedure: Upper GI endoscopy Indications: Nausea with [...] by the physician, the nurse and the rehabilitation aide/scheduler in the procedure room at 11:11. Mental [...] colonoscopy today. Procedure Code(s): --- Professional --- 83240, Esophagogastroduodenoscopy, flexible, transoral; with biopsy, single or multiple Diagnosis Code(s): --- Professional --- K21.00, Gastro-esophageal reflux disease with esophagitis, without bleeding R11.2, Nausea with vomiting, unspecified CPT copyright 2020 [employer]. All rights reserved. The codes documented in this report are preliminary and upon telephone assembler review may be revised to meet current compliance requirements. Scope In: 11:15:53 AM Scope Out: 11:20:18 AM MD Gene Sparks MD 08/29/2024 11:23:44 AM This report has been signed electronically by Gene Parson MD Number of Addenda: 0 Note Initiated On: 08/29/2024 11:02 AM Estimated Blood Loss: Estimated blood loss: none. [facility] GI ENDOSCOPYOrdered By: Radiologist Radiology on 08-29-2024 [facility] Work Phone: 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 Refer to note in patient chart for documentation of history and physical. Patient has symptoms of acute dyspepsia and acute vomiting. Referring Physician: Irma Nava CNP (Referring MD), Linnea Hackett (Referring [...] by the physician, the nurse and the rehabilitation aide/scheduler in the procedure room at 11:11. Mental [...] colonoscopy today. Procedure Code(s): --- Professional --- 34131, Esophagogastroduodenoscopy, flexible, transoral; with biopsy, single or multiple Diagnosis Code(s): --- Professional --- K21.00, Gastro-esophageal reflux disease with esophagitis, without bleeding R11.2, Nausea with vomiting, unspecified CPT copyright 2020 [employer]. All rights reserved. The codes documented in this report are preliminary and upon telephone assembler review may be revised to meet current compliance requirements. Scope In: 11:15:53 AM Scope Out: 11:20:18 AM MD Gene Sparks MD 08/29/2024 11:23:44 AM This report has been signed electronically by Gene Parson MD Number of Addenda: 0 Note Initiated On: 08/29/2024 11:02 AM Estimated Blood Loss: Estimated blood loss: none.NormalUniversity Hospitals [facility] tilt table teston 96-84-6297DX tilt table testLIMA [place] [address] Cardiology Report Signed Patient: Adina Martinez MR#: [id number] : 1995 Acct:[id number] Age/Sex: 29 / F ADM Date: 08/28/24 Loc: Room: Type: [facility] Attending Dr: Quique Vazquez MD Copies [...] continue her long-term followup with her primary transition nurse. Transcribed By: MARY JANE 08/28/24 1738 Dictated By: Nidia Hughes MD 08/28/24 1010 Signed By: 08/29/24 1718[facility] Physician GroupCT abdomen pelvis wo con 39-43-3526OL abdomen pelvis wo [facility] [place] [address] CT Scan Report Signed Patient: Adina Martinez MR#: [id number] : 1995 Acct:[id number] Age/Sex: 29 / F ADM Date: 08/14/24 Loc: CT Room: Type: [facility] Attending Dr: Linnea Hackett PA-C, Copies to: [...] hydronephrosis. Prior cholecystectomy.[ GI: Small hiatal hernia. Nbip-ir-jkfemodl retained stool within the colon. Mild colonic [...] Miller M.D. 08/14/2024 11:03 AM Dictation Location: [place] [address] Transcribed By: [facility] 08/14/24 1103 Dictated By: Meet Miller MD 08/14/24 1031 Signed By: 08/14/24 1103[facility] Physician GroupSaint John's Health System 70-37-7586EAPMUilvgj Visit (GAST) JTRANJITH ARORAIA ([id number]) 1995 F Date Time Provider Department 07/30/24 8:50 AM IRMA NAVA [facility] During your visit today, we recorded the following information about you: Pulse Blood pressure Weight 85/minute 120/81 124.6 kg Irma Nava APRN.CNP 07/30/2024 9:42 AM Signed Consultation [...] Congruent mood and af (more content not included)...[facility]South[facility] PHYSICALon 34-35-1516ADBIKWL PHYSICALHNO ID: [id number] Author: IRMA NAVA APRN.EMBROIDERY PATTERNMAKER Service: ? Author Type: Nurse Practitioner Type: [...] bronchitis (2021), obesity and (more content not included)...NormalCleveland Clinic FoundationTransthoracic echo (TTE) completeon 07-11-[address], [address], [place] [address] TRANSTHORACIC ECHOCARDIOGRAM REPORT Patient Name: ADINA MARTINEZ Reading Physician: [id number] Quique Vazquez MD, [facility] Study Date: 07/10/2024 Ordering Provider: [id number] QUIQUE VAZQUEZ MRN/PID: [id number] Fellow: Nurse: Date of /Age: 11 1995 / 29 years Support Services Manager: Marli Castro RDCS, RVT Gender Assigned at F Additional Staff: : Height: 172.72 cm Admit Date: Weight: 129.73 kg Admission Status: BSA / BMI: 2.38 m2 / 43.49 Department Location: [facility] kg/m2 Heart Dick Blood Pressure: 114 /82 mmHg Study Type: TRANSTHORACIC ECHO (TTE) COMPLETE Diagnosis/ICD: Syncope-R55 Indication: Tachycardia, Morbid Obesity, Hypothyroid CPT Codes: Echo Complete w Full Doppler-69958 Study Detail: The following Echo studies were [...] normal. There is no indication of pulmonic valveregurgitation. Pericardium: No pericardial effusion noted. Aorta: The [...] VTI: 20.84 cm LV (more content not included)...Radiology, Radiologist, MD - 07/11/2024 [facility] [address], [address], [place] [address] TRANSTHORACIC ECHOCARDIOGRAM REPORT Patient Name: ADINA MARTINEZ Reading Physician: [id number] Quique Vazquez MD, [facility] Study Date: 07/10/2024 Ordering Provider: [id number] QUIQUE VAZQUEZ MRN/PID: [id number] Fellow: Nurse: Date of /Age: 11 1995 / 29 years Support Services Manager: Marli Castro RD, T Gender Assigned at F Additional Staff: : Height: 172.72 cm Admit Date: Weight: 129.73 kg Admission Status: BSA / BMI: 2.38 m2 / 43.49 Department Location: [facility] kg/m2 Heart Kiefer Blood Pressure: 114 /82 mmHg Study Type: TRANSTHORACIC ECHO (TTE) COMPLETE Diagnosis/ICD: Syncope-R55 Indication: Tachycardia, Morbid Obesity, Hypothyroid CPT Codes: Echo Complete w Full Doppler-47372 Study Detail: The following Echo studies were [...] normal. There is no indication of pulmonic valveregurgitation. Pericardium: No pericardial effusion noted. Aorta: The [...] (0.6-0.9m/s) AORTA: Asc Ao Diam 2.86 cm [id number] Quique Vazquez MD, FACC Electronically signed on 07/11/2024 at 7:44:30 AM Final NOMS HealthcareTransthoracic echo (TTE) completeOrdered By: Radiologist Radiology on [id number] Replise Work Phone: TRANSTHORACIC ECHO (TTE) COMPLETEon 07-10-2024 TRANSTHORACIC ECHO (TTE) COMPLETENortRegina Ville [id number] [facility] [address], [address], [place] [address] TRANSTHORACIC ECHOCARDIOGRAM REPORT Patient Name: ADINA MARTINEZ Reading Physician: [id number] Quique Vazquez MD, [facility] Study Date: 07/10/2024 Ordering Provider: [id number] QUIQUE VAZQUEZ MRN/PID: [id number] Fellow: Nurse: Date of /Age: 11 1995 / years Support Services Manager: Marli Castro RDCS, RVT Gender Assigned at F Additional Staff: : Height: 172.72 cm Admit Date: Weight: 129.73 kg Admission Status: BSA / BMI: 2.38 m2 / 43.49 Department Location: [facility] kg/m2 Heart Kiefer Blood Pressure: 114 /82 mmHg Study Type: TRANSTHORACIC ECHO (TTE) COMPLETE Diagnosis/ICD: Syncope-R55 Indication: Tachycardia, Morbid Obesity, Hypothyroid CPT Codes: Echo Complete w Full Doppler-11438 Study Detail: The following Echo studies were [...] normal. There is no indication of pulmonic valveregurgitation. Pericardium: No pericardial effusion noted. Aorta: The [...] (0.6-0.9m/s) AORTA: Asc Ao Diam 2.86 cm [id number] [facility]quez MD, [facility] Electronically signed on 07/11/2024 at 7:44:[address] [facility] HospitalTransthoracic echo (TTE) completeon 80-84-2833Ouazyvyrz Study observation (narrative)NOMS HealthcareCCF BACTERIA UR CULTon 72-53-6947UUZ BACTERIA UR CULTORGANISM ID: 1 N[facility] HealthcareCCF BACTERIA UR CULT>=100,000 CFU/ml Normal urogenital floraNOMS HealthcareOriginal Ordering Provider: CLIFF[facility] Bacteria Ur Culton 88-55-1199Sipfepzo identified Cx Nom (U)ORGANISM ID: 1 >=100,000 CFU/ml Normal urogenital floraNormalCRegency Hospital ToledoComment on above:Performed By: #### 46650-7, 630-4 ####[facility] LABCLIA [id number] [address], [place] [address] [place] AMERICACB W Auto Differential panel (Bld)on 67-74-6783Eqnjmmsmu (Bld) [#/Vol] 10*3/uLNormal<0.11CCleveland Clinic [facility]'s [facility] on above:Order Comment: Specimen Type: BLOOD SPECIMENOrdering Facility: [facility] Address:[address] [place], [place] [address]Performed By: #### 23809-7 ####[facility] LABIA [id number] [address], [place] [address] [place] AMERICABasophils/100 WBC (Bld)0.3 % NormalMercer County Community Hospital on above:Order Comment: Specimen Type: BLOOD SPECIMENOrdering Facility: [facility] Address:[address] [place], [place] [address]Performed By: #### 09297-1 ####[facility] LABIA [id number] [place] [address] [place] [facility] WESTDifferential cell count method Nom (Bld)AutoNormalClevelDelaware County Hospital on above:Order Comment: Specimen Type: BLOOD SPECIMENOrdering Facility: [facility] Address:[address] [place], [place] [address]Performed By: #### 80657-0 ####[facility] LABIA [id number] [address], [place] [address] [place] [facility] WESTEosinophils (Bld) [#/Vol]0.05 10*3/uLNormal<0.46[facility] on above:Order Comment: Specimen Type: BLOOD SPECIMENOrdering Facility: [facility] Address:[address] [place], [place] [address]Performed By: #### 01378-4 ####[facility] LABIA [id number] [address], [place] [address] [place] Eosinophils/100 WBC (Bld)0.6 %NormalMercer County Community Hospital on above: Order Comment: Specimen Type: BLOOD SPECIMENOrdering Facility: [facility] Address:[address] [place], [place] [address]Performed By: #### 71739- 8 ####[facility] TIFFIN HOSPITALIA [id number] [place] [address] [place] AMERICAErythrocyte distribution width (RBC) [Ratio]13.4 %Pqkkvy68.5-15.0[facility] on above: Order Comment: Specimen Type: BLOOD SPECIMENOrdering Facility: [facility] Address:[address] [place], [place] [address]Performed By: #### 33578- 8 ####[facility] [id number] [address] STATES OF AMERICAHematocrit (Bld) [Volume fraction]38.2 %Qkmkgv29.0-46.0[facility] on above:Order Comment: Specimen Type: BLOOD SPECIMENOrdering Facility: [facility] Address:[address] [place], [place] [address]Performed By: #### 84104- 8 ####[facility] TIFFIN HOSPITALIA [id number] [place] [address] [place] AMERICAHemoglobin (Bld) [Mass/Vol]12.4 g/rOIwrybe76.5-15.5CCleveland Clinic Children's Hospital for Rehabilitation on above:Order Comment: Specimen Type: BLOOD SPECIMENOrdering Facility: [facility] Address:[address] [place], [place] [address]Performed By: #### 77445-8 ####[facility] LABNORTHWESTERN [facility] [id number] [place] [address] [place] AMERICAImmature granulocytes (Bld) [#/Vol]0.08 10*3/uLNormal<0.10[facility] on above:Order Comment: Specimen Type: BLOOD SPECIMENOrdering Facility: [facility] Address:[address] [place], [place] [address]Performed By: #### 28443- 8 ####[facility] LABCLIA [id number] [place] [address] [place] [facility] WESTImmature granulocytes/100 WBC (Bld)1.0 %NormalMercer County Community Hospital on above:Order Comment: Specimen Type: BLOOD SPECIMENOrdering Facility: [facility] Address:[address] [place], [place] [address]Performed By: #### 81263-8 ####[facility] LABIA [id number] [place] [address] [place] AMERICALymphocytes (Bld) [#/Vol]2.11 10*3/uLNormal1.00-4.00[facility] on above:Order Comment: Specimen Type: BLOOD SPECIMENOrdering Facility: [facility] Address:[address] [place], [place] [address]Performed By: #### 05798-6 ####[facility] LABIA [id number] [place] [address] [place] AMERICALymphocytes/100 WBC (Bld)26.8 % NormalMercer County Community Hospital on above:Order Comment: Specimen Type: BLOOD SPECIMENOrdering Facility: [facility] Address:[address] [place], [place] [address]Performed By: #### 01924-6 ####[facility] LABIA [id number] [place] [address] [place] AMERICAMCH (RBC) [Entitic mass]28.1 iwHnmvyz16.0-34.0[facility] on above:Order Comment: Specimen Type: BLOOD SPECIMENOrdering Facility: [facility] Address:[address] [place], [place] [address]Performed By: #### 51463-2 ####[facility] LABIA [id number] [place] [address] [place] MCHC (RBC) [Mass/Vol]32.5 g/aAGzmpzx18.5-36.0[facility] on above:Order Comment: Specimen Type: BLOOD SPECIMENOrdering Facility: [facility] Address:[address] [place] [address] Performed By: #### 34584-1 ####[facility] LABIA [id number] [place] [address] [place] MCV (RBC) [Entitic vol]86.4 uPEcsftu80.0-100.0[facility] on above:Order Comment: Specimen Type: BLOOD SPECIMENOrdering Facility: [facility] Address:[address] [place] [address] Performed By: #### 92309-8 ####[facility] TIFFIN HOSPITALIA [id number] [place] [address] [place] Monocytes (Bld) [#/Vol]0.42 10*3/uLNormal<0.87[facility] on above:Order Comment: Specimen Type: BLOOD SPECIMENOrdering Facility: [facility] Address:[address] [place] [address] Performed By: #### 53260-4 ####[facility] LABIA [id number] [place] [address] [place] Monocytes/100 WBC (Bld)5.3 %NormalMercer County Community Hospital on above: Order Comment: Specimen Type: BLOOD SPECIMENOrdering Facility: [facility] Address:[address] [place], [place] [address]Performed By: #### 44514- 8 ####[facility] LABIA [id number] [place] [address] [place] AMERICANeutrophils (Bld) [#/Vol]5.18 10*3/uLNormal1.45-7.50[facility] on above:Order Comment: Specimen Type: BLOOD SPECIMENOrdering Facility: [facility] Address:[address] [place], [place] [address]Performed By: #### 96891-5 ####[facility] LABCLIA [id number] [place] [address] [place] AMERICANeutrophils/100 WBC (Bld)66.0 % NormalMercer County Community Hospital on above:Order Comment: Specimen Type: BLOOD SPECIMENOrdering Facility: [facility] Address:[address] [place], [place] [address]Performed By: #### 35411-1 ####[facility] LABCLIA [id number] [place] [address] [place] AMERICANucleated RBC (Bld) [#/Vol]10*3/uLNormal<0.01[facility] on above:Order Comment: Specimen Type: BLOOD SPECIMENOrdering Facility: [facility] Address:[address] [place], [place] [address]Performed By: #### 24439-0 ####[facility] LABCLIA [id number] [place] [address] [place] Nucleated RBC/100 WBC (Bld) [Ratio]0.0 /100 WBCNormalClevelOn license of [facility] Comment on above:Order Comment: Specimen Type: BLOOD SPECIMENOrdering Facility: [facility] Address:[address] [place] [address] Performed By: #### 07815-0 ####[facility] LABCLIA [id number] [place] [address] [place] Platelet mean volume (Bld) [Entitic vol]10.0 fLNormal9.0-12.7ClevelDelaware County Hospital on above:Order Comment: Specimen Type: BLOOD SPECIMENOrdering Facility: [facility] Address:[address] [place], [place] [address]Performed By: #### 14337-1 ####[facility] LABCLIA [id number] [address] [address] [place] Platelets (Bld) [#/Vol]338 10*3/mDCcgssn170-084QmuxbxrkpMercer County Community Hospital on above:Order Comment: Specimen Type: BLOOD SPECIMENOrdering Facility: [facility] Address:[address] [place] [address] Performed By: #### 19814-4 ####[facility] LABIA [id number] [address] [place] RBC (Bld) [#/Vol]4.42 10*6/uLNormal3.90-5.20[facility] on above:Order Comment: Specimen Type: BLOOD SPECIMENOrdering Facility: [facility] Address:[address] [place], [place] [address]Performed By: #### 76871-1 ####[facility] HOSPITALIA [id number] [address] STATES OF [facility] - WESTWBC (Bld) [#/Vol]7.86 10*3/uLNormal3.70-11.00[facility] on above:Order Comment: Specimen Type: BLOOD SPECIMENOrdering Facility: [facility] Address:[address] [place], [place] [address]Performed By: #### 81714-5 ####[facility] [id number] [place] [address] [place] OF AMERICACT ABD/PEL W IVCONon 37-08-5358TH ABD/PEL W IVCON* * *Final Report* * * DATE OF EXAM: Jun 21 2024 6:21PM [facility] 0530 - CT ABD/PEL W IVCON [...] acute findings in the abdomen or pelvis. Furnace Puncher[facility] Transcribe Date/Time: Jun 21 2024 7:16P Dictated by : MUKUL CURTIS MD This examination was interpreted and the report reviewed and electronically signed by: JOVANY VALDEZ MD on Jun 21 2024 7:40PM EST [id number] Clinic FoundationComprehensive metabolic 2000 panelon 66-56-0920Hsvuipg [Mass/Vol]4.8 g/dLNormal3.9-4.9CCleveland Clinic [facility]'s [facility] on above:Order Comment: Specimen Type: BLOOD SPECIMENOrdering Facility: [facility] Address:[address] [place], [place] [address]Performed By: #### 94555-1, 3040-3, 71365-4 ####[facility] LABCLIA [id number] [address] [place] AMERICAALP [Catalytic activity/Vol]81 U/RPbsqiu85-068QkswsyunwMercer County Community Hospital on above:Order Comment: Specimen Type: BLOOD SPECIMENOrdering Facility: [facility] Address:[address] [place], [place] [address]Performed By: #### 46502-4, 3040-3, 51445-1 ####[facility] LABCLIA [id number] [place] [address] [place] AMERICAALT [Catalytic activity/Vol]31 U/LNormal7-38[facility] on above:Order Comment: Specimen Type: BLOOD SPECIMENOrdering Facility: [facility] Address:[address] [place], [place] [address]Performed By: #### 65384-7, 3040-3, ####[facility] LABIA [id number] VILLE [address] [place] AMERICAAnion gap [Moles/Vol]12 mmol/LNormal8-15[facility] on above:Order Comment: Specimen Type: BLOOD SPECIMENOrdering Facility: [facility] Address:[address] [place], [place] [address]Performed By: #### 94352-5, 3040-3, ####[facility] LABIA [id number] [place] [address] [place] AMERICAAST [Catalytic activity/Vol]27 U/OYuwupj64-63SkhcvdpkhMercer County Community Hospital on above:Order Comment: Specimen Type: BLOOD SPECIMENOrdering Facility: [facility] Address:[address] [place], [place] [address]Performed By: #### 85845-2, 3040-3, ####[facility] LABCLIA [id number] [address] [address] [place] AMERICABilirubin [Mass/Vol]0.5 mg/dLNormal0.2-1.3ClevelDelaware County Hospital on above:Order Comment: Specimen Type: BLOOD SPECIMENOrdering Facility: [facility] Address:[address] [place], [place] [address]Performed By: #### 59187-4, 3039-3, ####[facility] LABCLIA [id number] [address] [address] [place] AMERICACalcium [Mass/Vol]9.5 mg/dLNormal8.5-10.2ClevelOn license of UNC Medical CenterComment on above:Order Comment: Specimen Type: BLOOD SPECIMENOrdering Facility: [facility] Address:[address] [place], [place] [address]Performed By: #### 48954-4, 3039-3, ####[facility] LABCLIA [id number] [address] [place] AMERICAChloride [Moles/Vol]103 mmol/KMvqmgn32-504XajjqnuweCleveland Clinic FoundationComascension st. john hospital on above:Order Comment: Specimen Type: BLOOD SPECIMENOrdering Facility: [facility] Address:[address] [place], [place] [address]Performed By: #### 25169-6, 3, ####[facility] LABCLIA [id number] [address] [address] [place] AMERICACO2 [Moles/Vol]23 mmol/NNpvcwf31-54UmvlrqyhjCleveland Clinic Foundation Comment on above:Order Comment: Specimen Type: BLOOD SPECIMENOrdering Facility: [facility] Address:[address] [place], [place] [address] Performed By: #### 50009-2, 3040-3, ####[facility] LABCLIA [id number] [address] [place] AMERICACreatinine [Mass/Vol]0.70 mg/dLNormal0.58-0.96[facility] Comment on above:Order Comment: Specimen Type: BLOOD SPECIMENOrdering Facility: [facility] Address:[address] [place] [address] Performed By: #### 57027-4, 3040-3, ####[facility] [id number] VIL[place] [id number] [place] OF AMERICACreatinine and Glomerular filtration rate.predicted panel (S/P/Bld)120 mL/min/1.73m???Normal>=60[facility] on above:Order Comment: Specimen Type: BLOOD SPECIMENOrdering Facility: [facility] Address:[address] [id number] Comment: Estimated Glomerular Filtration Rate (eGFR) is calculated using the 2020 CKD-EPI cre atinine equation. This equation utilizes serum creatinine, sex, and age as parameters. The creatinine assay has traceable calibration to isotope dilution- mass spectrometry. Refer to KDIGO guidelines for clinical interpretation. In patients with unstable renal function, e.g. those with acute kidney injury, the eGFR may not accurately reflect actual GFR.Performed By: #### 13768-6, 0-3, ####[facility] LABNOR[facility] [id number] [address] [place] OF AMERICAGlucose [Mass/Vol]89 mg/dLNormal 74-99[facility] on above:Order Comment: Specimen Type: BLOOD SPECIMENOrdering Facility: [facility] Address:[address] [id number] Comment: The [place] Diabetes Association (ADA) provides guidance for cutoff [...] Standards of Medical Care in Diabetes 2016, [place] [employer] Association. Diabetes Care. 2016.39(Suppl 1).Performed By: #### 96787-1, 0-3, ####[facility] LABCLIA [id number] [address] [place] AMERICAPotassium [Moles/Vol] 4.0 mmol/LNormal3.7-5.1CCleveland Clinic [facility]'s [facility] on above:Order Comment: Specimen Type: BLOOD SPECIMENOrdering Facility: [facility] Address:[address] [place], [place] [address]Performed By: #### 21847-2, 3, ####[facility] LABIA [id number] [address] [place] AMERICAProtein [Mass/Vol]7.8 g/dLNormal 6.3-8.0[facility] on above:Order Comment: Specimen Type: BLOOD SPECIMENOrdering Facility: [facility] Address:[address] [place], [place] [address]Performed By: #### 25197-7, 3, ####[facility] LABIA [id number] OF AMERICASodium [Moles/Vol]138 mmol/L Ddcgvd780-424XmnchbmlsMercer County Community Hospital on above:Order Comment: Specimen Type: BLOOD SPECIMENOrdering Facility: [facility] Address:[address] [place], [place] [address]Performed By: #### 61169-9, 3, ####[facility] LABIA [id number] [place] [id number] [place] OF AMERICAUrea nitrogen [Mass/Vol]12 mg/dL Normal7-21C[facility] Clinic FoundationComment on above:Order Comment: Specimen Type: BLOOD SPECIMENOrdering Facility: [facility] Address:[place], [place] [address]Performed By: #### 46319-6, 3040-3, 53134-9 ####[facility] LABCLIA [id number] WASHBURNDES[address]ED NOTEon [id number] NOTEHNO ID: [id number] Author: RICH BATES, RN Service: Emergency Medicine Author Type: Registered Nurse Type: ED Notes Filed: 06/21/2024 20:20 Note Text: Pt. Provided with discharge instructions at this time. All questions answered, medications discussed and follow-up information reviewed at length. Pt. Verbalized understanding. VSS, PIV removed, pt. Ambulatory off unit in stable condition.NormalProtestant [facility] PROV NOTEon [id number] PROV NOTE HNO ID: [id number] Author: RUDDY SLATER PA-C Service: Emergency Medicine Author Type: Physician Shipping Support Type: ED Provider Notes Filed: 06/21/2024 19:59 [...] Bilirubin, Urine Negative Ketones, Urine Trace(!) Specific [place], Ur 1.026 Hemoglobin/Blood,Ur 2+(!) pH, Urine 5.5 [...] (ANC) 5.18 Lymph% 26.8 Abs Lymph 2.11 Riley% 5.3 Abs Riley 0.42 Eosin% 0.6 Abs Eosin 0.05 Baso% [...] Date PAST SURGICAL HIS (more content not included)...NormalCleveland Clinic Foundation ED Triage Noteon 58-56-4317QB Triage NoteHNO ID: [id number] Author: CLIFFORD SCOTT MD Service: Emergency Medicine [...] Culture HCG URINE QUALITATIVE SIGNATURE: Clifford Scott MDNormalCRegency Hospital ToledoHCG Preg Ur Qlon 75-87-6643NEX ( test) Ql (U)NegativeNormalNegativeCleveland Clinic FoundationComment on above:Order Comment: Specimen Type: URINE SPECIMENOrdering Facility: [facility] Address:[address] [place], [place] [address]Result Comment: This test is intended to aid in the early detection of . Very dilute urinesamples, as indicated by a low specific gravity, may not contain volunteer patient representative levels of hCG. Thistest detects intact hCG only. This test does [...] for interference by human anti-mouse antibodies (HAMA) inthe specimen. The test provides a presumptive diagnosis for .Performed By: #### 2106-3 ####[facility] LABCLIA [id number] [place] [address] [place] Lipase SerPl-cCncon 07-49-3795Jifajc [Catalytic activity/Vol]28 U/TXcrpas70-01 [facility] on above:Order Comment: Specimen Type: BLOOD SPECIMENOrdering Facility: [facility] Address:[address] [place], [place] [address]Performed By: #### 51317-4, 3040-3, 18291-2 ####[facility] LABCLIA [id number] [address] [place] [address] [place] AMERICAMagnesium SerPl-mCncon 71-81-9441Gwksdpttq [Mass/Vol]2.1 mg/dLNormal1.7-2.3CCleveland Clinic Children's [facility] on above:Order Comment: Specimen Type: BLOOD SPECIMENOrdering Facility: [facility] Address:[address] [place], [place] [address]Performed By: #### 45196- 8, 3040-3, ####[facility] LABCLIA [id number] [place] [address] [place] AMERICAUrinalysis complete panel (U)on 12-56-6750NYUEAZVT UL>9821HighNegativeCleveland Clinic Foundation Comment on above:Order Comment: Specimen Type: URINE SPECIMENOrdering Facility: [facility] Address:[address] [place] [address] Performed By: #### 48055-9, 630-4 ####[facility] LABCLIA [id number] [address] [place] [address] [place] Bilirubin Ql (U)NegativeNormalNegativeMercer County Community Hospital on above:Order Comment: Specimen Type: URINE SPECIMENOrdering Facility: [facility] Address:[address] [place], [place] [address]Performed By: #### 98196-9, 630-4 ####[facility] LABCLIA [id number] [address] [place] [address] [place] AMERICAClarity (Unsp spec) CloudyAbnormalClearCCleveland Clinic Children's Hospital for Rehabilitation on above:Order Comment: Specimen Type: URINE SPECIMENOrdering Facility: [facility] Address:[address] [place], [place] [address]Performed By: #### 66037-9, 630-4 ####[facility] LABCLIA [id number] [address] [place] [address] [place] AMERICAColor (U)YellowNormalYellow [facility] on above:Order Comment: Specimen Type: URINE SPECIMENOrdering Facility: [facility] Address:[address] [place], [place] [address]Performed By: #### 75143-2, 630-4 ####[facility] LABCLIA [id number] [place] [id number] [place] AMERICAEpithelial cells LM.HPF (Urine sed) [#/Area]ManyNormalCCleveland Clinic Children's Hospital for Rehabilitation on above:Order Comment: Specimen Type: URINE SPECIMENOrdering Facility: [facility] Address:[address] [place], [place] [address]Performed By: #### 49244-3, 630-4 ####[facility] LABCLIA [id number] [address], [facility] [place] AMERICAGlucose Test strip (U) [Mass/Vol]NegativeNormalNegative [facility] on above:Order Comment: Specimen Type: URINE SPECIMENOrdering Facility: [facility] Address:[address] [place], [place] [address]Performed By: #### 43475-9, 630-4 ####[facility] LABCLIA [id number] [address], [facility] [place] AMERICAHemoglobin Ql (U)2+AbnormalNegativeCleveland Clinic Foundation Comment on above:Order Comment: Specimen Type: URINE SPECIMENOrdering Facility: [facility] Address:[address] [place] [address] Performed By: #### 66540-0, 630-4 ####[facility] LABCLIA [id number] [address], [facility] [place] Hyaline casts (Urine sed) [#/Area]/[LPF]Abnormal0 /LPFClevelOn license of [facility] Comment on above:Order Comment: Specimen Type: URINE SPECIMENOrdering Facility: [facility] Address:[address] [place] [address] Performed By: #### 15067-3, 630-4 ####[facility] LABCLIA [id number] [address], [place] [address] [place] Ketones Ql (U)TraceAbnormalNegativeMercer County Community Hospital on above: Order Comment: Specimen Type: URINE SPECIMENOrdering Facility: [facility] Address:[address] [place], [place] [address]Performed By: #### 97470- 8, 630-4 ####[facility] LABCLIA [id number] [address] STATES OF [facility] WESTLeukocyte esterase Test strip Ql (U)1+AbnormalNegativeCleveland Clinic FoundationComment on above:Order Comment: Specimen Type: URINE SPECIMENOrdering Facility: [facility] Address:[address] [place], [place] [address]Performed By: #### 32062- 8, 630-4 ####[facility] LABCLIA [id number] [place] [address] [place] AMERICANitrite Ql (U)Negative NormalNegativeMercer County Community Hospital on above:Order Comment: Specimen Type: URINE SPECIMENOrdering Facility: [facility] Address:[address] [place], [place] [address]Performed By: #### 97413-3, 630-4 ####[facility] LABCLIA [id number] [place] [address] [place] [facility] WESTpH (U)5.5 [pH]Normal<8.5ClevelOn license of [facility] Comment on above:Order Comment: Specimen Type: URINE SPECIMENOrdering Facility: [facility] Address:[address] [place] [address] Performed By: #### 29917-0, 630-4 ####[facility] LABIA [id number] [place] [address] [place] Protein (U) [Mass/Vol]1+AbnormalNegativeMercer County Community Hospital on above:Order Comment: Specimen Type: URINE SPECIMENOrdering Facility: [facility] Address:[address] [place], [place] [address]Performed By: #### 58992-8, 630-4 ####[facility] LABIA [id number] [place] [address] [facility] LM.HPF (Urine sed) [#/Area]3-5 /HPFAbnormal0-2 /HPFMercer County Community Hospital on above: Order Comment: Specimen Type: URINE SPECIMENOrdering Facility: [facility] Address:[address] [place], [place] [address]Performed By: #### 70208- 8, 630-4 ####[facility] LABIA [id number] [facility] [place] [address] [place] AMERICASpecific gravity (U) [Rel density]1.384Kwvkpb4.005-1.030[facility] on above:Order Comment: Specimen Type: URINE SPECIMENOrdering Facility: [facility] Address:[address] [place], [place] [address]Performed By: #### 25492- 8, 630-4 ####[facility] TIFFIN HOSPITALIA [id number] [place] [address] [place] [facility] WESTUrobilinogen Ql (U)0.2 EU/dLNormal0.2-1.0 EU/dLMercer County Community Hospital on above:Order Comment: Specimen Type: URINE SPECIMENOrdering Facility: [facility] Address:[address] [place], [place] [address]Performed By: #### 36559- 8, 630-4 ####[facility] LABCLIA [id number] [place] [id number], [place] [address] [place] OF AMERICAWBC LM.HPF (Urine sed) [#/Area]11-20 /HPFAbnormal0-5 /HPFCleveland Clinic FoundationComment on above: Order Comment: Specimen Type: URINE SPECIMENOrdering Facility: [facility] Address:[address] [place], [place] [address], [place] [address]Performed By: #### 37734- 8, 630-4 ####[facility] LABCLIA [id number] [address] [id number], [facility] [place] OF AMERICAECG 12 Leadon 05-08-2024 ECG revealed normal sinus rhythm, normal ECGCPWood County Hospital Work Phone: CHEMISTRYOrdered By: SYSTEM SYSTEM on 51-15-0336Ttku T4 [Mass/Vol]0.61 ng/dLNormal0.58 - 1.64 ng/dLRemisol ChemTS Qn6.68 m[IU]/LHigh 0.34 - 5.60 mcIU/mLRemisol [facility] TSH WITH T4FR REFLEXon 85-67-6855IAJL THYROTROPIN:ACNC:PT:SER/PLAS:QN:6.68[facility] HealthcareInterpretation and review of laboratory resultsAbnormalBEAR RIVER VALLEY [facility]OSPITAL HealthcareOriginal Ordering Provider: KADY BANGINISYNCNOMS HealthcareFree T4on 07-36-0424Phou T4 [Mass/Vol] 0.61 ng/dLNormal0.58-1.64[facility] HospitalComment on above:Performed By: #### [id number] #### [facility] [address], [place] [address]KCR With T4fr Reflexon 42-30-9950BCO Qn6.68 m[IU]/LHigh 0.34-5.60[facility] HospitalComment on above:Performed By: #### [id number] #### [facility] [address], [place] [address]TPSHAOWQQLgoriuj By: SYSTEM SYSTEM on 16-24-4914Tmuvmukt HS pg/mLLow10.10 - 27.10 pg/mLRemisol ChemComment on above:Interpretive Data: The 95% CI (Confidence Interval) PPV (Positive Predictive Value) for myocardial i nfarction in females is 38 pg/mL, in males 51 pg/mL. The results should be used in conjunction withclinical conditions of myocardial infarction. (Access High Sensitivity Troponin I Instructions For Use, Dewey Lindsay, October 2017)Albumin [Mass/Vol]4.5 g/dLNormal3.3 - 5.0 gm/dLRemisol Chem Albumin/Globulin [Mass ratio]1.7 {ratio}Normal1.1 - 2.2Remisol ChemALP [Catalytic activity/Vol]73 [iU]/rQdtydj20 - 98 Int._Unit/LRemisol ChemALT No additional P-5'-P [Catalytic activity/Vol]17 [iU]/dNormal6 - 46 Int._Unit/L Remisol ChemAnion gap [Moles/Vol]12 mmol/LNormal6 - 16 mEq/LRemisol ChemAST [Catalytic activity/Vol]16 [iU]/dNormal5 - 43 Int._Unit/LRemisol ChemBilirubin [Mass/Vol]0.3 mg/dLNormal0.0 - 1.1 mg/dLRemisol ChemBilirubin.direct [Mass/Vol] 0.0 mg/dLNormal0.0 - 0.4 mg/dLRemisol ChemBilirubin.indirect [Mass or moles/Vol] 0.3 mg/dLNormal0.1 - 0.9 mg/dLRemisol ChemCalcium [Mass/Vol]9.2 mg/dLNormal8.9 - 11.1 mg/dLRemisol ChemChloride [Moles/Vol]105 mmol/LAlnsoj013 - 111 mmol/L Remisol ChemCO2 [Moles/Vol]23 mmol/YIadmjq89 - 31 mmol/LRemisol ChemCreatinine [Mass/Vol]0.7 mg/dLNormal0.5 - 1.3 mg/dLRemisol DtwqyXNP513 mL/min/1.73 e1Zviesi >=59mL/min/1.73 s9Bnsayoj ChemGlobulin (S) [Mass/Vol]2.7 g/dLNormal1.4 - 4.0 gm/dLRemisol ChemGlucose [Mass/Vol]118 mg/aLTnxfki64 - 199 mg/dLRemisol Chem Lipase [Catalytic activity/Vol]18 U/NEkdqsr18 - 58 unit/LRemisol ChemPotassium [Moles/Vol]3.7 mmol/LNormal3.5 - 5.3 mmol/LRemisol ChemProtein [Mass/Vol]7.2 g/dLNormal6.0 - 7.8 gm/dLRemisol ChemSodium [Moles/Vol]136 mmol/HMagqmt823 - 145 mmol/LRemisol ChemTroponin HSpg/mLLow10.10 - 27.10 pg/mLRemisol ChemComment on above:Interpretive Data: The 95% CI (Confidence Interval) PPV (Positive Predictive Value) for myocardial infarction in females is 38 pg/mL, in males 51 pg/mL. The results should be used in conjunction withclinical conditions of myocardial infarction. (Access High Sensitivity Troponin I Instructions For Use, Dewey Sony, October 2017)Urea nitrogen [Mass/Vol]11 mg/dLNormal5 - 21 mg/dLRemisol ChemUrea nitrogen/Creatinine [Mass ratio]16 mg/plReuyho73 - 20Remisol ChemCOAGULATION Ordered By: Mara Judge on 93-86-2516pSCH Coag (PPP) [Time]34.3 lGzqpuf59.1 - 36.5 second(s)[facility] Auto CoagComment on above:Interpretive Data: Parameter 15 days - 4 weeks 1 - 5 months 6 - 11 months 1 - 5 years 6 - 10 years 11 - 17 years PTT Mean: 35.4 (27.6-45.6) Mean: 33.5 (24.8-40.7) Mean: 32.4 (25.1-40.7) Mean: 31.6 (24.0-39.2) Mean: 31.6 (26.9-38.7) Mean: 31.0 (24.6-38.4) Pediatric Reference ranges were obtained from a study by kyung Yepez. prepared from 1437 samples obtained at 7 different centers using the same coagulation reagent and instrumentation as [facility]. Currently there are no coagulation studies available worldwide for children to 14 days, andno normal ranges. Heparin therapeutic range (represented by Anti-Factor Xa activity of 0.2 - 0.4 U/mL) corresponds to PTT of 56.6 - 109.0 sec.INR Coag (PPP) [Relative time]0.97 {INR}Invalid Interpretation CodeGRIFFIN MEMORIAL HOSPITAL – [facility] Auto CoagComment on above:Interpretive Data: INR results are specifically intended to assess patients stabilized on long-term Anticoagulation therapy suggested INR s Less Intensive Anticoagulation 2.0 3.0 Conventional Range 3.0 4.5PT Coag (PPP) [Time]10.9 sNormal9.4 - 12.5 second(s) [facility] Auto CoagComment on above:Interpretive Data: 15 days - 4 weeks 1 - [...] the same coagulation reagent and instrumentation as [facility]. Currently there are no coagulation studies available worldwide for children to 14 days, andno normal ranges.ED Clinical Summaryon [id number] Clinical SummaryED Clinical Summary [address] [address] ED Clinical Summary Person Information Name: ADINA MARTINEZ [facility] Age: 28 Years : 1995 Sex: Female Language: Danish PCP: Linnea HACKETT PA-C Marital Status: Single [...] 12/06/2023 18:47:51 12/06/2023 18:47:51 12/06/2023 18:47:51 ADDR[address]: [address] [place] [id number] PHYS DOC NOTES: MEDICAL INFORMATION: Prescriptions Given: [...] days 12/09/2023 With: Address: When: [place] [address] [employer] ([employer]™ In 3 days DIAGNOSIS: Chest pain; Shortness of breathNormalFisher Ouachita Medical CenterED Note-Physicianon 43-60-7427YG Note-PhysicianED Note-Physician Basic Information Time Seen: Julio Chung [...] it has been going on for the last3 days. Patient states that she had similar [...] other associated symptoms no other prior treatments orcomplaints. Family: Reviewed and noncontributory Social: lives at [...] <1% risk of major adverse cardiac event in30 days Medical Decision Making Patient is a 28-year-old female with PMH of chronic migraines, depression, PCOS, anxiety who presents today for evaluation of her chest pain and shortness of breath has been going on for the last 3 days. She had similar symptoms a while back and was diagnosed with pneumonia here in the ED. She doesendorse a intermittent nonproductive cough as well as some nausea but denies any other systemic signs or symptoms. On exam patient is afebrile nontoxic-appearing. SpO2 on percent on room air. Slightly tachypneic with 22 respirations per minute. CTA to bilateral lung murillo. RRR. Abdomen is soft andnontender with no evidence of guarding or distention. [...] 1 episode here in the ED where shebecame tachycardic around 125 bpm and her oxygen [...] an outpatient for pos (more content not included)...[facility] HospitalComment on above:Result Comment: Electronically Signed By: Julio Chung PA-C\.br\Date and Time Signed: 12/05/2417:33 EDT\.br\Electronically Co-Signed By: Cliff Gusman DO\.br\Date and Time Co-Signed: 12/05/2418:07 EDTED Patient Summaryon [id number] Patient SummaryED Patient Summary [address] [address] Patient Discharge Instructions Person Information Name: ADINA MARTINEZ Age: 28 Years Arrival Date: 12/06/2023 15:42:10 Discharge Diagnosis: Chest pain; Shortness of breath Primary Care Physician: Linnea HACKETT PA-C Provider Information Primary Provider: Cliff Gusman DO Advanced Fire Coordinator:Julio Chung PA-C The exam and treatment you received in the Emergency Department were for an urgent problem and are not intended as complete care. It is important that you follow up with a doctor, nurse practitioner,or physician?s talent assistant for ongoing care. If your symptoms [...] days 12/09/2023 With: Address: When: Linnea HACKETT [address] [place] [address] Business (1) In 3 days In the event that this physician does not participate in your insurance network, please consult with your insurance company to find a nearby participating provider. Patient Education Materials: Nonspecific Chest Pain, Adult A MESSAGE TO ALL PATIENTS REGARDING OPIOIDS PRESCRIPTION OPIOIDS: WHAT YOU NEED TO KNOW Prescription opioids can be used to help relieve clzfdyna-rn-bqphfz pain and are often prescribed following a [...] and have fewer risks and side effects. Optionsmay include: ? Pain relievers such as acetaminophen, [...] your community drug take- back program or yourpharmacy mail-back program, or flush them down the toilet, following guidance from the Food and Drug Administration (www.fda.gov/Drugs/ResourcesForYou). ? Visit www.cdc.gov/drugoverdose to learn about the risks of opioids abuse and overdose. ? If you believe you may be struggling with addiction, tell your health car (more content not included)...[facility] HospitalHEMATOLOGYOrdered By: SYSTEM SYSTEM on 94-69-1526Sqeljgspa/100 WBC (Bld)0.3 %Normal0.0 - 2.0 % Remisol HemeBasophils/Leukocytes Auto (Bld) [Pure # fraction]0.0 E9/LNormal0.0 - 0.2 E9/LRemisol HemeEosinophils (Bld) [#/Vol]0.1 E9/LNormal0.0 - 0.5 E9/LRemisol HemeEosinophils/100 WBC (Bld)0.9 %Normal0.0 - 8.0 %Remisol HemeErythrocyte distribution width (RBC) [Ratio]14.3 %High10.9 - 14.2 %Remisol HemeHematocrit (Bld) [Volume fraction]36.1 %Riopsk87.0 - 46.0 %Remisol HemeHemoglobin (Bld) [Mass/Vol]12.2 g/xLWhspen42.0 - 16.0 gm/dLRemisol HemeLymphocytes (Bld) [#/Vol] 2.6 E9/LNormal1.0 - 4.0 E9/LRemisol HemeLymphocytes/100 WBC (Bld)24.0 %Normal 14.0 - 50.0 %Remisol HemeMCH (RBC) [Entitic mass]29.2 qyRzouqm53.0 - 34.0 pg Remisol HemeMCHC (RBC) [Mass/Vol]33.9 g/lTYmsfhl76.4 - 36.0 gm/dLRemisol HemeMCV (RBC) [Entitic vol]86.1 pSHjutkp32.0 - 100.0 fLRemisol HemeMonocytes (Bld) [#/Vol]0.6 E9/LNormal0.2 - 1.0 E9/LRemisol HemeMonocytes/100 WBC (Bld)5.2 % Normal4.0 - 14.0 %Remisol HemeNeutrophils (Bld) [#/Vol]7.4 E9/LNormal2.0 - 7.5 E9/LRemisol HemeNeutrophils/100 WBC (Bld)69.6 %Pcdfgt47.0 - 75.0 %Remisol Heme Platelet mean volume (Bld) [Entitic vol]8.0 fLNormal6.4 - 10.8 fLRemisol Heme Platelets (Bld) [#/Vol]285.0 E9/TOmfqnp460.0 - 500.0 E9/LRemisol HemeRBC (Bld) [#/Vol]4.2 E12/LLow4.3 - 5.9 E12/LRemisol HemeWBC corrected for nucl RBC Auto (Bld) [#/Vol]10.7 E9/LNormal4.0 - 11.0 E9/LRemisol HemeMICRO OTHER TESTSOrdered By: Mara Judge on 60-36-7528Lflpbmzotu A AgNegative (12/06/23 4:21 PM)NormalNegativeGRIFFIN [facility] Man SeroInfluenzae B AgNegative 1 (12/06/23 4:21 PM)NormalNegativeGRIFFIN [facility] Man SeroComment on above:Interpretive Data: Test sensitivity and specificity vary for age group, specimen type, antigen types, and prevalence of disease. Test results must be evaluated in conjunction with other clinical dataavailable to the physician. Individuals who received nasally administered Influenza A vaccine may have positive test results up to 3 days after vaccination.Rapid COV Int NEG CtlPass (12/06/23 4:21 PM)NormalFT Man SeroRapid COV Int POS CtlPass (12/06/23 4:21 PM)NormalGRIFFIN MEMORIAL [facility]OSPITAL [facility] Man SeroSARS-CoV+SARS-CoV-2 (COVID-19) Ag IA.rapid Ql (Resp)Not Detected 7 (12/06/23 4:21 PM)NormalNot DetectedFT Man SeroComment on above:Interpretive Data: The Accedo System for Rapid Detection of SARS-CoV-2 is a chromatographic digital immunoassay intended for the direct and qualitative detection of SARS-CoV-2 nucleocapsid antigens in nasal swabs from individuals who are suspected of COVID-19 by their healthcare provider withinthe first five days of the onset of [...] of proteins from SARS-CoV-2, not for any otherviruses or pathogens; and, in the [place], this test is only authorized for the duration of the declaration that circumstances exist justifying the authorization of emergency use of in vitro diagnostics for detection and/or diagnosis of the virus that causes COVID-19 under Section 564(b)(1) of the Act,21 U.S.C. 360bbb-3(b)(1), unless the authorization is terminated or revoked sooner.Troponin 1 Hr.on 82-44-6599Bjylhghj HS<2.30Low 10.10-27.10[place] HospitalComment on above:Order Comment: due @ 7915 Result Comment: The 95% CI (Confidence Interval) PPV (Positive Predictive Value) for myocardial infarction in females is 38 pg/mL, in males 51 pg/mL. The results should be used in conjunction with clinical conditions of myocardial infarction. (Access High Sensitivity Troponin I Instructions For Use, [employer], October 2017)Performed By: #### [id number] #### [facility] [address] [place] [address] [id number] Clinical Summaryon [id number] Clinical SummaryED Clinical Summary [address] [address] ED Clinical Summary Person Information Name: ADINA MARTINEZ [place] Age: 28 Years : 1995 Sex: Female Language: Danish PCP: Linnea HACKETT PA-C Marital Status: Single [...] 10/13/2023 09:02:33 10/13/2023 09:02:33 10/13/2023 09:02:33 ADDRESS: [address] [place] [id number] PHYS DOC NOTES: MEDICAL INFORMATION: Prescriptions Given: New Medications [facility]/pharmacy #[id number], [address], [place] [id number], [phone] dextromethorphan-promethazine (Promethazine DM oral syrup) 5 Milliliter [...] Address: When: Linnea HACKETT [address] [place] [address] [employer] (1) In 3 days DIAGNOSIS: Neck strain; PneumoniaNormalFisher Michael Medical CenterED Note-Physicianon [id number] Note-PhysicianED Note-Physician Basic Information Time Seen: Santos Booker [...] into the posterior aspect of her neck. Shedenies any chance of stating that she is currently on her menstrual cycle. No other aggrav ating or relieving factors no other associated symptoms [...] addition to the steroids and also given Zithromax.Follow-up the outpatient setting return to ER symptoms change or worsen. Assessment/Plan Neck strain (S16.1XXA: Strain of muscle, fascia and tendon at neck level, initial encounter) Pneumonia (J18.9: Pneumonia, unspecified organism) Orders: albuterol-ipratropium, 3 mL, Soln-Inh, Inhalation, Once, Stop date 10/13/23 8:08:00 EDT, STAT, Start date 10/13/23 8:08:00 EDT dextromethorphan-promethazine, 5 mL, Oral, q6hr for cough, 120 mL, Refill(s) 0, [facility]/pharmacy #[id number],173, cm, 10/13/23 7:45:00 EDT, Height/Length Dosing, 124.7, kg, 10/13/23 7:45:00 EDT, Weight Dosing doxycycline, 100 mg = 1 tab(s), Oral, BID, X 7 day(s), # 14 tab(s), Refills(s) 0, Pharmacy: [facility]/pharmacy #[id number], 173, cm, 10/13/23 7:45:00 EDT, Height/Length Dosing, 124.7, kg, 10/13/23 7:45:00 EDT, Weight Dosing methocarbamol, 750 mg = 1 tab(s), Oral, TID, X 7 day(s), # 21 tab(s), Refills(s) 0, Pharmacy: [facility]/pharmacy #[id number], 173, cm, 10/13/23 7:45:00 EDT, Height/Length Dosing, 124.7, kg, 10/13/23 7:45:00 EDT,Weight Dosing predniSONE, 3, Oral, Daily, # 15 tab(s), Refills(s) 0, Pharmacy: [facility]/pharmacy #[id number], 173, cm, 10/13/23 7:45:00 EDT, [...] TID Follow-up With When Contact Information Linnea BORIS In 3 days [address] [place] [address]- Business (1) Additional Instructions: Problem List/Past Medical [...] Robaxin-750 oral tablet, 7 (more content not included)...[facility] HospitalComment on above:Result Comment: Electronically Signed By: Santos Booker DO\.afsaneh\Date and Time Signed: 10/13/23 08:12EDTED Patient Education Noteon [id number] Patient Education NoteED Patient Education NoteNoWestern Reserve Hospital CenterED Patient Summaryon [id number] Patient SummaryED Patient Summary [address] [address] Patient Discharge Instructions Person Information Name: ADINA MARTINEZ Age: 28 Years Arrival Date: 10/13/2023 07:40:18 Discharge Diagnosis: Neck strain; Pneumonia Primary Care Physician: Linnea HACKETT PA-C Provider Information Primary Provider: Santos Booker DO Advanced Fire Coordinator:None The exam and treatment you received in the Emergency Department were for an urgent problem and are not intended as complete care. It is important that you follow up with a doctor, nurse practitioner,or physician?s talent assistant for ongoing care. If your symptoms [...] Follow-up Instructions: With: Address: When: Linnea HACKETT [address] [place] [phone] Business (1) In 3 days In the event that this physician does not participate in your insurance network, please consult with your insurance company to find a nearby participating provider. Patient Education Materials: A MESSAGE TO ALL PATIENTS REGARDING OPIOIDS PRESCRIPTION OPIOIDS: WHAT YOU NEED TO KNOW Prescription opioids can be used to help relieve zqoxefax-iy-uqfanu pain and are often prescribed following a [...] and have fewer risks and side effects. Optionsmay include: ? Pain relievers such as acetaminophen, [...] your community drug take- back program or yourSaber Sevenrmacy mail-back program, or flush them down the toilet, following guidance from the Food and Drug Administration (www.fda.gov/Drugs/ResourcesForYou). ? Visit www.cdc.gov/drugoverdose to learn about the risks of opioids abuse and overdose. ? If you believe you may be struggling with addiction, tell your health hemodialysis patient care specialist and ask for guidance or call SAMHSA?S National Helpline at 0-252-568-GHTE. v Source: Department of [place] (more content not included)...[facility] HospitalXR Chest 2 Viewson 35-91-4661EF Chest 2 ViewsExam Date/Time: 10/13/2023 07:58 EDT Reason for Exam: [...] Kar in mGy = na DAP = naNormalFisher [facility] Hospital CenterBasophils Auto (Bld) [#/Vol]Ordered By: Black Zaidi on 94-49-9879Fmyvnuuba (Bld) [#/Vol]0.1 10*3/uL0.0-0.2FGuernsey Memorial HospitalBasophils/100 WBC Auto (Bld)Ordered By: Black Zaidi on 53-76-5809Jxnhiaavy/100 WBC (Bld)1.0 %.[facility] HospitalCalcium [Mass/volume] in Serum or PlasmaOrdered By: Black Zaidi on 17-97-6082Ctfkzkc [Mass/Vol]9.6 mg/dL8.6-10.3FGuernsey Memorial HospitalCarbon dioxide, total [Moles/volume] in Serum or PlasmaOrdered By: Black Zaidi on 35-04-5720ZW1 [Moles/Vol]25.1 mmol/L21.0-31.0[facility] HospitalChloride [Moles/volume] in Serum or PlasmaOrdered By: Black Zaidi on 84-24-9897Ypzhjevj [Moles/Vol]105 mmol/A70-480EywuyutvyGalion Community HospitalCholesterol [Mass/volume] in Serum or PlasmaOrdered By: Black Zaidi on 06-80-9128Scoxltqswix [Mass/Vol]159 mg/eX054-873UmjmahuzfGalion Community HospitalComment on above:Chol less than 200 mg/dl low riskChol 201-239 mg/dl borderline riskChol 240 mg/dl and greater high riskCholesterol in LDL Calc [Mass/Vol]Ordered By: Black Zaidi on 10-76-7146Fnpyahtefzx in LDL [Mass/Vol]100 mg/dL0-100[facility] HospitalComment on above:LDL ATP III CLASSIFICATIONLDL less than 100 mg/dL OptimalLDL 100-129 mg/dL Near or above eubeyurETQ920-826 mg/dL Borderline highLDL 160-189 mg/dL HighLDL greater than 189 mg/dL Very highCholesterol in VLDL Calc [Mass/Vol]Ordered By: Black Zaidi on 72-06-9298Egeohtzamcm in VLDL [Mass/Vol]18 mg/dLGalion Community HospitalCreatinine [Mass/volume] in Serum or PlasmaOrdered By: Black Zaidi on 49-22-1917Fqznerkxqk [Mass/Vol]0.69 mg/dL0.60-1.20[facility] HospitalEosinophils Auto (Bld) [#/Vol] Ordered By: Black Zaidi on 34-21-3618Djddadmezpc (Bld) [#/Vol]0.1 10*3/uL0.0-0.45 [facility] HospitalEosinophils/100 WBC Auto (Bld)Ordered By: Black Zaidi on 47-26-2251Vyqaekbcopp/100 WBC (Bld)1.1 %.[facility] HospitalErythrocyte distribution width Auto (RBC) [Ratio]Ordered By: Black Zaidi on 85-85-9230Mmcabbccxer distribution width (RBC) [Ratio]15.6 %High11.9-15.3 [facility] HospitalGlucose [Mass/volume] in Serum or PlasmaOrdered By: Black Zaidi on 35-53-4801Hzeyxdq [Mass/Vol]94 mg/tU57-524DwsmsbjvhGalion Community HospitalHematocrit Auto (Bld) [Volume fraction]Ordered By: Black Zaidi on 28-90-2083Amkzipfhef (Bld) [Volume fraction]38.3 %34.0-46.4FGuernsey Memorial HospitalHemoglobin [Mass/volume] in BloodOrdered By: Black Zaidi on 21-38-6246Wqdawhzkmt (Bld) [Mass/Vol]12.9 g/dL11.8-15.4FGuernsey Memorial HospitalLeukocytes [#/volume] corrected for nucleated erythrocytes in Blood by Automated counOrdered By: Black Zaidi on 56-24-3528STJ corrected for nucl RBC Auto (Bld) [#/Vol]8.1 10*3/uL3.8-11.6FGuernsey Memorial Hospital Lymphocytes Auto (Bld) [#/Vol]Ordered By: Black Zaidi on 57-58-0504Gknzagjbajq (Bld) [#/Vol]2.2 10*3/uL1.00-4.8[facility] HospitalLymphocytes/100 WBC Auto (Bld)Ordered By: Black Zaidi on 94-91-1634Feiyzvfvpsj/100 WBC (Bld)27.1 %.[facility] Auto (RBC) [Entitic mass]Ordered By: Black Zaidi on 52-30-5140NUF (RBC) [Entitic mass]28.6 pg24.7-34.3FGuernsey Memorial HospitalMCHC Auto (RBC) [Mass/Vol]Ordered By: Black Zaidi on 93-88-8810CHTB (RBC) [Mass/Vol]33.6 g/dL32.0-35.0[facility] HospitalMCV Auto (RBC) [Entitic vol]Ordered By: Black Zaidi on 32-48-3560OBU (RBC) [Entitic vol]85.2 uY85-206DlgkqfpeuGalion Community HospitalMonocytes Auto (Bld) [#/Vol]Ordered By: Black Zaidi on 26-67-3137Beudhmhgy (Bld) [#/Vol]0.5 10*3/uL 0.0-0.8[facility] HospitalMonocytes/100 WBC Auto (Bld)Ordered By: Black Zaidi on 73-04-3237Cxughlpwu/100 WBC (Bld)6.6 %.[facility] HospitalNeutrophils Auto (Bld) [#/Vol]Ordered By: Black Zaidi on 09-21-2023 Neutrophils (Bld) [#/Vol]5.2 10*3/uL1.8-7.7FGuernsey Memorial Hospital Neutrophils/100 WBC Auto (Bld)Ordered By: Black Zaidi on 09-21-2023 Neutrophils/100 WBC (Bld)64.2 %.[facility] HospitalNo Panel InformationOrdered By: Black Zaidi on 92-55-8741Hgelhsmus GFR (CKD-EPI)> 60.0 mL/MinGalion Community HospitalPharmacy Creatinine Clearance (ChemN/A [facility] HospitalNucleated erythrocytes [Presence] in Blood by Automated countOrdered By: Black Zaidi on 51-89-5424Dmxiuduap RBC Auto Ql (Bld) 0.1 /100{WBC}0-0.5FGuernsey Memorial HospitalPlatelet mean volume Auto (Bld) [Entitic vol]Ordered By: Black Zaidi on 60-45-8828Jfozglse mean volume (Bld) [Entitic vol]8.0 fL6.3-10.7FGuernsey Memorial HospitalPlatelets Auto (Bld) [#/Vol]Ordered By: Black Zaidi on 10-72-0289Jczpedxwz (Bld) [#/Vol]344 10*3/lW785-099PdbxrtpkeGalion Community HospitalPotassium [Moles/volume] in Serum or PlasmaOrdered By: Black Zaidi on 16-42-2509Blhtdbvps [Moles/Vol]4.6 mmol/L 3.5-5.1FGuernsey Memorial HospitalRBC Auto (Bld) [#/Vol]Ordered By: Black Zaidi on 38-57-9933GTR (Bld) [#/Vol]4.50 10*6/uL3.60-5.00[facility] Hospital - Cantonerum or plasma anion gap determinationOrdered By: Black Zaidi on 24-12-2712Vpbfu gap [Moles/Vol]11.5 mmol/L6.0-15.0[facility] - Cantonerum or plasma high density lipoprotein (HDL) cholesterol measurement Ordered By: Black Zaidi on 73-77-6842Ulugnsvgejf in HDL [Mass/Vol]40 mg/dL23-92 [facility] HospitalComment on above:HDL CHOL ATP-III CLASSIFICATION Cardiovascular RiskHDL > or equal to 60 mg/dL LOWHDL < 40 mg/dL HIGHSerum or plasma total cholesterol/high density lipoprotein (HDL) cholesterol mass ratOrdered By: Black Zaidi on 46-82-0237Hbhykluqhqi.total/Cholesterol in HDL [Mass ratio]4.0 {ratio}<5.0[facility] Hospital - Cantonodium [Moles/volume] in Serum or PlasmaOrdered By: Black Zaidi on 74-76-6670Ktdeot [Moles/Vol]137 mmol/B924-187CldrvrwjrGalion Community HospitalThyrotropin [Units/volume] in Serum or PlasmaOrdered By: Black Zaidi on 67-74-5576ASU Qn3.78 m[IU]/L0.45-5.33[facility] HospitalTriglyceride [Mass/volume] in Serum or PlasmaOrdered By: Black Zaidi on 70-54-4046Eufqmwpnhqtn [Mass/Vol]94 mg/dL0-149[facility] HospitalComment on above:TRIG ATP III CLASSIFICATIONTRIG less than 150 mg/dL NormalTRIG 150-199 mg/dL Borderline highTRIG 200-500 mg/dL High TRIG greater than 500 mg/dL Very highStandard traceable to the Center for Disease Conrtrol and Prevention (CDC) test method. Urea nitrogen [Mass/volume] in Serum or PlasmaOrdered By: Black Zaidi on 76-75-4674Hwtn nitrogen [Mass/Vol]13 mg/dL7-25[facility] WBC Auto (Bld) [#/Vol]Ordered By: Black Zaidi on 29-58-4700WKR (Bld) [#/Vol]8.1 10*3/uL3.8-11.6FGuernsey Memorial HospitalConsent for Treatmenton 16-00-6949Pqvtsbs for [id number]#1.00TIFF [facility] HospitalHeart and Vascular Office/Clinic Noteon 49-45-8531Uxvvc and Vascular Office/Clinic NoteChief Complaint Establish Care History of Present Illness [...] no food allergies, no recurrent infections, no impairedimmunity Additional ROS info: Except as noted in [...] for age, motor strength equal & normal bilaterally,sensation equal & normal bilaterally, speech normal Psychiatric: [...] 04/17/2020 Recorded SARS-CoV-2 (COVID-19) mRNA-1273 vaccine 03/20/2020 RecordedNoThe Bellevue HospitalComment on above:Result Comment: Electronically Signed By: Ad VELASQUEZ, Magdi Lipscomb\.br\Date and Time Signed: 09/04/23 08:26 EDTOutside Recordson 55-40-5062Nukggsv [id number]#1.00TIFFNokerry Mackenzie [facility] CenterPhysician Orderon 39-86-2591Hrbhstgpf Order [id number]#1.00TIFFBaironAdena Regional Medical CenterCTA NECKon 08-03-2023 Exam Date/Time: 08/01/2023 07:26 EDT Reason for [...] Contrast: Isovue 370 Contrast amount in ml's: 100[facility] NORMANRadiology, Radiologist, - 08/03/2023 Exam Date/Time: 08/01/2023 07:26 [...] Isovue 370 Contrast amount in ml's: 100 [facility] HealthcareCTA NECKOrdered By: Radiologist Radiology on 18-61-2368WYCO Replise Work Phone: cTA Neckon 48-21-3083LLJ NeckExam Date/Time: 08/01/2023 07:26 EDT Reason for Exam: [...] Contrast: Isovue 370 Contrast amount in ml's: 100NoThe Bellevue HospitalCTA NECKon 91-79-4401Fnmtzakix Study observation (narrative)[facility] HealthcareConsent for Treatmenton 24-48-4974Clnofst for Treatment [id number]#1.00TIFZanesville City HospitalInsurance Correspondenceon 93-46-6997Thnqwvfru Correspondence [id number]#1.00TIFZanesville City HospitalPhysician Orderon 61-29-7244Fukclcgxk Order [id number]#1.00TIFZanesville City HospitalMRI BRAIN W/ + W/O CONTRASTon 06-15-2023 Exam Date/Time: 06/14/2023 08:43 EDT Reason for [...] Technical Comments Vueway Contrast amount in ml's: [facility]ITALRadiology, Radiologist, - 06/15/2023 Exam Date/Time: 06/14/2023 08:43 [...] Comments Vueway Contrast amount in ml's: 10 [facility] RepliseMRI BRAIN W/ + W/O CONTRASTOrdered By: Radiologist Radiology on 74-96-1979YAQDLakeland Regional Hospital Work Phone: MRI Brain w/ + w/o Contraston 09-57-8973LKB Brain w/ + w/o ContrastExam Date/Time: 06/14/2023 08:43 EDT Reason for Exam: [...] Technical Comments Vueway Contrast amount in ml's: 10NormalFisher [facility] Hospital CenterConsent for Treatmenton 83-88-4446Kvryjfp for Treatment [id number]#1.00[facility] HospitalMRI BRAIN W/ + W/O CONTRASTon 53-33-5345Caqmtcavj Study observation (narrative)[facility] HealthcareRAD - MRI Screening Formon 51-65-2377YDJ - MRI Screening [id number]#1.00[facility] HospitalPhysician Orderon 09-66-9835Snqpznzqw Order [id number]#1.00[facility] HospitalBMPon 77-38-6193Fjopy gap [Moles/Vol]14 mmol/LNormal6-16[facility] HospitalComment on above:Performed By: #### [id number], 36115488, 42108558, 68012989, 4897587, 21658531 ####[facility] [address] [place], [place] [address]Nauwioh [Mass/Vol]9.3 mg/dLNormal8.9-11.1FBellevue HospitalComment on above:Performed By: #### 2635926, 99228060, 56856017, 01163335, 5631454, 96795643 ####[facility] [address]NKneeland, [place] [address]Pniglzmm [Moles/Vol]106 mmol/LNormal 101-111[facility] HospitalComment on above:Performed By: #### 6056257, 17363101, 31426989, 73119957, 7965734, 54631177 ####[facility] [address]Nora.o. fox [facility] [place], [place] [address]EI2 [Moles/Vol]22 mmol/LZstzri34-47 [facility] HospitalComment on above:Performed By: #### 0513844, 96946638, 01456362, 11036503, 9638177, 52937972 ####[facility] [address] [place], [place] [address]Yxetsotvdf [Mass/Vol]0.6 mg/dLNormal 0.5-1.3FBellevue HospitalComment on above:Performed By: #### 3667964, 19011933, 16764810, 81393856, 9806217, 19034151 ####[facility] [address] [place], [place] [address]Modlyxx [Mass/Vol]128 mg/dLNormal 55-199[facility] HospitalComment on above:Performed By: #### 7820174, 00256636, 48069583, 89907916, 0327238, 09522184 ####[place] [address] [place], [place] [address]Jzjsigmig [Moles/Vol]3.8 mmol/LNormal 3.5-5.3FBellevue HospitalComment on above:Performed By: #### 0031619, 68952915, 19779859, 49972225, 6994565, 45651335 ####[facility] [address] [place], [place] [address]Kpfyvy [Moles/Vol]138 mmol/LNormal 135-145[facility] HospitalComment on above:Performed By: #### 5409853, 27340522, 23225104, 31097849, 8055252, 71948947 ####[facility] [address] [place], [place] [address]Lsnp nitrogen [Mass/Vol]17 mg/dL Normal5-21[facility] HospitalComment on above:Performed By: #### 2910342, 97138079, 60628215, 49442515, 0686818, 97807701 ####[facility] [address] [place], [place] [address]Yeag nitrogen/Creatinine [Mass ratio]28 No BtbltUpbz38-44GwmrctBluffton Hospital Comment on above:Performed By: #### 2164524, 36602246, 23440927, 63215008, 8107755, 62271838 ####[facility] [address] [place], [place] [address]XSClw 27-31-4888Spf Ctr BNPPassNormalBluffton HospitalComment on above:Performed By: #### 6380123, 25579906, 57441429, 24751407, 6963305, 27256351 ####[facility] [address] [place], [place] [address]Xrlvxcjpugz peptide B (Bld) [Mass/Vol]pg/mLNormal5-80[facility] HospitalComment on above:Performed By: #### 7285122, 87376153, 30586364, 43473471, 2197221, 13858535 ####[facility] [address] [place], [place] [address]Qvvkurtru Instructionson 05-26-2023 Discharge [id number]#1.00TIFFNormal [facility] Clinical Summaryon 46-93-6193MF Clinical Summary [address] [address] ED Clinical Summary Person Information Name: ADINA MARTINEZ [facility] Age: 28 Years : 1995 Sex: Female Language: Danish PCP: Linnea HACKETT PA-C Marital Status: Single [...] 05/26/2023 01:33:30 05/26/2023 01:33:30 05/26/2023 01:33:30 ADDRESS: [address] [place] [id number] PHYS DOC NOTES: MEDICAL INFORMATION: Prescriptions Given: New Medications [facility]/pharmacy #[id number], [address] [place], [place] [id number], [phone] brompheniramine/dextromethorphan/PSE (Bromfed DM oral syrup) 5 Milliliter By Mouth 4 times a day asneeded for cold symptoms. Refills: 0. ondansetron (Zofran [...] EDUCATION INFORMATION: Instructions: Upper Respiratory Infection, Adult, Cfyo-er-Euwi; Nausea and Vomiting, Adult, Gueu-pl-Zsxm Follow up: With: Address: When: Linnea HACKETT [address] [place] [address] [employer] (1) In 3 days 05/29/2023 Comments: You can use the Bromfed, Zofran every 6 hours as needed for cough, nausea and vomiting. Please follow-up with your primary care doctor in the next 2 to 3 days for further evaluation management. Please return to the ED for any new or worsening symptoms. DIAGNOSIS: Acute URI; N&V (nausea and vomiting)[facility] CenterED Note-Physicianon 73-17-4058EM Note-PhysicianBasic Information Time Seen: Jean Bullard DO 05/25/2023 [...] and Complexity of Problems Differential Diagnosis: [] [facility] Data External documents reviewed: [] [...] are negative. Please patient symptoms are likely viral.Discussed findings with patient she is comfortable with [...] for cold symptoms, 200 mL, Refill(s) 0, [facility]/pharmacy #[id number], 173, cm, 05/25/23 22:46:00 EDT, [...] 1 tab(s), Oral, q8 (more content not included)...Normal [facility] HospitalComment on above:Result Comment: Electronically Signed By: Jean Bullard DO\Date and Time Signed: 05/26/23 00:52 EDTED Patient Education Noteon 00-67-3458CW Patient Education NoteGastroenterology Nausea and Vomiting, Adult Nausea is feeling [...] ? Low-calorie sports drinks. ? Eat bland, aodn-nx-ynqrnd foods in small amounts as you are able, such as: ? Bananas. ? Applesauce. ? Rice. ? Low-fat (lean) meats. ? [place]. ? Crackers. ? Avoid drinking fluids that have a lot of sugar or caffeine in them. This includes energy drinks, sports drinks, and soda. ? Avoid alcohol. ? Avoid spicy or fatty foods. General instructions ? Take ymuh-qax-olelrkm and prescription medicines only as told by your doctor. ? Drink enough fluid to keep your pee (urine) pale yellow. ? Wash your hands often with soap and water for at least 20 seconds. If you cannot use soap and water, use hand level designer. ? Make sure that everyone in your [...] doctor about eating and drinking. ? Take dgoi-mpy-qwvufqb and prescription medicines only as told by your doctor. ? Contact your doctor if your symptoms get worse or you have new symptoms. ? Keep all follow-up visits. This information is not intended to replace advice given to you by your health care provider. Make sure you discuss any questions you have with your health care provider. Document Revised: 09/03/2021 Document Reviewed: 09/03/2021 [employer] Patient Education ? 2022 [employer]. Infectious Disease Upper Respiratory Infection, Adult An [...] heart or lung disease (more content not included)...[facility] Patient Summaryon [id number] Patient Summary [address] [address] Patient Discharge Instructions Person Information Name: ADINA MARTINEZ Age: 28 Years Arrival Date: 05/25/2023 22:37:09 Discharge Diagnosis: Acute URI; N&V (nausea and vomiting) Primary Care Physician: Linnea HACKETT PA-C Provider Information Primary Provider: Jean Bullard DO Advanced Fire Coordinator:None The exam and treatment you received in the Emergency Department were for an urgent problem and are not intended as complete care. It is important that you follow up with a doctor, nurse practitioner,or physician?s talent assistant for ongoing care. If your symptoms [...] Address: When: Linnea HACKETT [address] [place] [address] Business (1) In 3 days [...] Patient Education Materials: Upper Respiratory Infection, Adult, Fqev-uj-Ahgd; Nausea and Vomiting, Adult, Oygh-hr-Jrwh A MESSAGE TO ALL PATIENTS REGARDING OPIOIDS PRESCRIPTION OPIOIDS: WHAT YOU NEED TO KNOW Prescription opioids can be used to help relieve tvotijoy-yl-kgeyrw pain and are often prescribed following a [...] and have fewer risks and side effects. Optionsmay include: ? Pain relievers such as acetaminophen, [...] your community drug take- back program or [employer] mail-back program, or flush them down the toilet, following guidance fr (more content not included)...[facility] HospitalGrp A Strp PCRon 36-21-9975Zgj A Strp Intrl CtrlPassNormalBluffton HospitalComment on above:Order Comment: Order Added on by Discern Rule. Performed By: #### [id number], [id number] #### [facility] [address] [place], [place] [address]X. pyogenes DNA KAITLIN+probe Ql (Throat)NegativeAvita Health System Bucyrus HospitalComment on above:Order Comment: Order Added on by Discern Rule. Result Comment: Testing performed using DNA amplification.Performed By: #### [id number], [id number] #### [facility] [address], [place] [address]Ataaqxbnb A&B Agon 50-36-8324Xjowcorgxl A AgNegativeNormal NegativeBluffton HospitalComment on above:Performed By: #### [id number], [id number] #### [facility] [address], [place] [address]Nicdsadlnx B AgNegativeNormalNegativeFisher Michael Medical CenterComment on above:Result Comment: Test sensitivity and specificity vary for age group, specimen type, antigen types, and prevalence of disease. Test results must be evaluated in conjunction with other clinical data available to the physician. Individuals who received nasally administered Influenza A vaccine may havepositive test results up to 3 days after vaccination.Performed By: #### [id number], [id number] #### Gurdeep [facility] [address], [place] [address]Wapwr COVID Antigen ([facility])on 20-56-4631Nlkwr COV Int NEG Ctl PassNormAdena Regional Medical CenterComment on above:Performed By: #### [id number], [id number] #### Gurdeep [facility] [address], [place] [address]Exsna COV Int POS CtlPassNoThe [facility] Comment on above:Performed By: #### [id number], [id number] #### Gurdeep [facility] [address], [place] [address]TTDT-HkH+SARS-CoV-2 (COVID-19) Ag IA.rapid Ql (Resp)Not detectedNormalNot [facility] HospitalComment on above:Result Comment: The Accedo? System for Rapid Detection of SARS-CoV-2 is a chromatographic digital immunoassay intended for the direct and qualitative detection of SARS-CoV-2 nucleocapsid antigensin nasal swabs from individuals who are suspected [...] of proteins from SARS-CoV-2, not for any otherviruses or pathogens; and, in the [place], this test is only authorized for the duration of the declaration that circumstances exist justifying the authorization of emergency use of in vitro diagnostics for detection and/or diagnosis of the virus that causes COVID-19 under Section 564(b)(1) of the Act,21 U.S.C. ? 360bbb-3(b)(1), unless the authorization is terminated or revoked sooner.Performed By: #### [id number], [id number] #### [facility] [address], [place] [address]Bobcn Strep w/rfxon 05-26-2023S. pyogenes Ag IA.rapid Ql (Throat)NegativeNormalNegativeBluffton HospitalComment on above: Performed By: #### [id number], [id number] #### [facility] [address], [place] [address]Vgikuswf 0 Hr.on 25-95-7871Yxnrsmgu I.cardiac [Mass/Vol]ng/mL Low10.10-27.10[facility] HospitalComment on above:Result Comment: The 95% CI (Confidence Interval) PPV (Positive Predictive Value) for myocardial infa rction in females is 38 pg/mL, in males 51 pg/mL. The results should be used in conjunction with clinical conditions of myocardial infarction. (Access High Sensitivity Troponin I Instructions For Use, Dewey Lindsay, October 2017)Performed By: #### [id number], [id number], [id number], 78000648, [id number], [id number] ####[facility] [address] [place], [place] [address]ZR Chest Single Viewon 12-20-1998LW Chest Single ViewExam Date/Time: 05/26/2023 00:38 EDT Reason for Exam: Cough Report [facility] [phone] IMPRESSION: There are no acute cardiopulmonary changes. [...] Ka,r in mGy = n/a DAP = n/aNormalBluffton HospitaleGFRon 39-13-1011oSAA935 mL/min/1.73 t5Bgttpf>=59Bl[facility]ton HospitalComment on above:Order Comment: Order added by Discern Expert.Performed By: #### [id number], [id number], 70234506, 13296217, 2920596, [id number] ####[facility] [address] [place], [place] [address]S hCG Qualon 29-41-6056Uoge HCG ( test) Ql NegativeNormalBluffton HospitalComment on above:Performed By: #### [id number] #### [facility] [address], [place] [address]SRF w/ Auto Diffon 71-54-4890Btnznuizr/100 WBC (Bld)0.7 %Normal 0.0-2.0[facility] HospitalComment on above:Performed By: #### 2487771, 13916067, 57763050, 42037535, 1830430, 80091034 #### [facility] [address], [place] [address]Fwybqifzy/Leukocytes Auto (Bld) [Pure # fraction]0.1 E9/LNormal 0.0-0.2Fisher [facility] CenterComment on above:Performed By: #### 5183248, 22207227, 50618186, 87210833, 7660033, 06958850 #### [facility] [address], [place] [address]Jjflvmxhhty (Bld) [#/Vol]0.1 E9/LNormal0.0-0.5Fisher [facility] CenterComment on above:Performed By: #### 8732500, 91404870, 78127301, 42720268, 6699468, 15607081 #### [facility] [address] [place] [address]5555Jwyojceecbv/100 WBC (Bld)1.3 %Normal0.0-8.0[facility] HospitalComment on above:Performed By: #### 1007703, 17990219, 94489490, 15656131, 4248616, 90725495 #### [facility] [address] [place] [address]Ejmkuwxkhgk distribution width (RBC) [Ratio]14.5 %High10.9-14.2 [facility] HospitalComment on above:Performed By: #### 7259219, 20643741, 67281817, 29242644, 7674884, 14017706 #### [facility] [address] [place] [address]Agfddgxvcu (Bld) [Volume fraction]33.3 %Low34.0-46.0[facility] HospitalComment on above:Performed By: #### 1740521, 73739813, 63442262, 67921570, 5624740, 75709353 #### [facility] [address], [place] [address]Ajrrkvgnkm (Bld) [Mass/Vol]11.2 g/dLLow12.0-16.0[facility] HospitalComment on above:Performed By: #### 0534207, 67093107, 54385917, 67732188, 9415640, 27886366 #### [facility] [address], [place] [address]Plzlvncfvjl (Bld) [#/Vol]2.7 E9/LNormal1.0-4.0[facility] HospitalComment on above:Performed By: #### 9444383, 65762962, 76302582, 58986048, 3061906, 15946509 #### [facility] [address], [place] [address]Gmzjnayxxvh/100 WBC (Bld)32.5 %Trfvmh99.0-50.0[facility] HospitalComment on above:Performed By: #### 5334290, 88839195, 71018607, 75945092, 3935346, 53422379 #### [facility] [address], [place] [address]KRE (RBC) [Entitic mass]28.6 vuYfzrwu31.0-34.0[facility] HospitalComment on above:Performed By: #### 1504046, 13195259, 53134189, 88428841, 6721451, 39250490 #### [facility] [address], [place] [address]XZVH (RBC) [Mass/Vol]33.7 g/jSFidwfd44.4-36.0[facility] HospitalComment on above:Performed By: #### 6472717, 91567621, 01644499, 41539569, 4815449, 94016643 #### [facility] [address], [place] [address]WZP (RBC) [Entitic vol]84.9 aGVexeau57.0-100.0[facility] HospitalComment on above:Performed By: #### 9752394, 98918985, 25853246, 79439464, 0146748, 27153251 #### [facility] [address] [place] [address]Wpkkhrqku (Bld) [#/Vol]0.5 E9/LNormal0.2-1.0[facility] HospitalComment on above:Performed By: #### 6549893, 62396763, 00258760, 99211513, 6802731, 40356902 #### [facility] [address], [place] [address]Gvkndwhvidh (Bld) [#/Vol]4.9 E9/LNormal2.0-7.5FBellevue HospitalComment on above:Performed By: #### 8530182, 52803878, 97064355, 49937828, 2900993, 59256923 #### [facility] [address], [place] [address]Lwqhuiyztnd/100 WBC (Bld)59.4 %Eorxjd88.0-75.0[facility] HospitalComment on above:Performed By: #### 1146318, 37097481, 37030636, 79902525, 3131515, 60447559 #### [facility] [address], [place] [address]Glqcigmn287.0 E9/SKdzwkh717.0-500.0[facility] Comment on above:Performed By: #### 9804658, 82155764, 90448904, 79145869, 0430542, 95860589 #### [facility] [address], [place] [address]Ihexisfm mean volume (Bld) [Entitic vol]7.7 fLNormal6.4-10.8 [facility] HospitalComment on above:Performed By: #### 8006145, 71450998, 99271494, 99231221, 9780776, 74561320 #### [facility] [address], [place] [address]IZG (Bld) [#/Vol]3.9 E12/LLow4.3-5.9[facility] Comment on above:Performed By: #### 9083950, 81596880, 99321111, 40499742, 9572460, 22181136 #### Gurdeep [facility] [address], [place] [address]UZS corrected for nucl RBC Auto (Bld) [#/Vol]8.3 E9/LNormal 4.0-11.0[facility] HospitalComment on above:Performed By: #### 1357262, 01408119, 59481182, 77201119, 0838156, 67408545 #### Gurdeep [facility] [address], [place] [address]NMPUWVVOHEflascq By: SYSTEM SYSTEM on 10-51-2704Fxwpp gap [Moles/Vol]14 mmol/LNormal6 - 16 mEq/LRemisol ChemCalcium [Mass/Vol]9.3 mg/dL Normal8.9 - 11.1 mg/dLRemisol ChemChloride [Moles/Vol]106 mmol/LHhoxaz630 - 111 mmol/LRemisol ChemCO2 [Moles/Vol]22 mmol/BPmkfcy60 - 31 mmol/LRemisol Chem Creatinine [Mass/Vol]0.6 mg/dLNormal0.5 - 1.3 mg/dLRemisol TwaynFNJ879 mL/min/1.73 s7Fvtqhw>=59mL/min/1.73 w9Ngpnekt ChemGlucose [Mass/Vol]128 mg/dL Teyknk31 - 199 mg/dLRemisol ChemPotassium [Moles/Vol]3.8 mmol/LNormal3.5 - 5.3 mmol/LRemisol ChemSodium [Moles/Vol]138 mmol/DLlhacj200 - 145 mmol/LRemisol Chem Troponinpg/mLLow10.10 - 27.10 pg/mLRemisol ChemComment on above:Interpretive Data: The 95% CI (Confidence Interval) PPV (Positive Predictive Value) for myocardial infarction in females is 38 pg/mL, in males 51 pg/mL. The results should be used in conjunction withclinical conditions of myocardial infarction. (Access High Sensitivity Troponin I Instructions For Use, Dewey Lindsay, October 2017)Urea nitrogen [Mass/Vol]17 mg/dLNormal5 - 21 mg/dLRemisol ChemUrea nitrogen/Creatinine [Mass ratio]28 mg/sbIhjj13 - 20Remisol ChemCHEMISTRYOrdered By: Arash Sullivan on 29-32-3165Atinrudygrr peptide B (Bld) [Mass/Vol]pg/mL Normal5 - 80 pg/mLGRIFFIN [facility] HemeManSSCOAGULATIONOrdered By: Arash Sullivan on 10-13-3717zHFM Coag (PPP) [Time]35.4 bLbvugv77.1 - 36.5 second(s)[facility] Auto Coag Comment on above:Interpretive Data: Parameter 15 days - 4 weeks 1 [...] the same coagulation reagent and instrumentation as [facility]. Currently there are no coagulation studies available worldwide for children to 14 days, andno normal ranges. Heparin therapeutic range (represented by Anti-Factor Xa activity of 0.2 - 0.4 U/mL) corresponds to PTT of 56.6 - 109.0 sec.INR Coag (PPP) [Relative time]0.98 {INR}Invalid Interpretation CodeGRIFFIN MEMORIAL HOSPITAL [facility] Auto CoagComment on above:Interpretive Data: INR results are specifically intended to assess patients stabilized on long-term Anticoagulation therapy suggested INR s Less Intensive Anticoagulation 2.0 3.0 Conventional Range 3.0 4.5PT Coag (PPP) [Time]11.0 sNormal9.4 - 12.5 second(s) [facility] Auto CoagComment on above:Interpretive Data: 15 days - 4 weeks 1 - [...] the same coagulation reagent and instrumentation as [facility]. Currently there are no coagulation studies available worldwide for children to 14 days, andno normal ranges.Consent for Treatmenton 75-32-1956Ezwlagn for Treatment [id number]#1.00TIFFAvita Health System Bucyrus HospitalHEMATOLOGYOrdered By: SYSTEM SYSTEM on 58-03-0526Biyyraoek/100 WBC (Bld) 0.7 %Normal0.0 - 2.0 %Remisol HemeBasophils/Leukocytes Auto (Bld) [Pure # fraction]0.1 E9/LNormal0.0 - 0.2 E9/LRemisol HemeEosinophils (Bld) [#/Vol]0.1 E9/LNormal0.0 - 0.5 E9/LRemisol HemeEosinophils/100 WBC (Bld)1.3 %Normal0.0 - 8.0 %Remisol HemeErythrocyte distribution width (RBC) [Ratio]14.5 %High10.9 - 14.2 %Remisol HemeHematocrit (Bld) [Volume fraction]33.3 %Low34.0 - 46.0 % Remisol HemeHemoglobin (Bld) [Mass/Vol]11.2 g/dLLow12.0 - 16.0 gm/dLRemisol Heme Lymphocytes (Bld) [#/Vol]2.7 E9/LNormal1.0 - 4.0 E9/LRemisol HemeLymphocytes/100 WBC (Bld)32.5 %Bjkpae28.0 - 50.0 %Remisol HemeMCH (RBC) [Entitic mass]28.6 pg Qloiyy81.0 - 34.0 pgRemisol HemeMCHC (RBC) [Mass/Vol]33.7 g/iWYpnvml81.4 - 36.0 gm/dLRemisol HemeMCV (RBC) [Entitic vol]84.9 wTGrdtxn77.0 - 100.0 fLRemisol Heme Monocytes (Bld) [#/Vol]0.5 E9/LNormal0.2 - 1.0 E9/LRemisol HemeMonocytes/100 WBC (Bld)6.1 %Normal4.0 - 14.0 %Remisol HemeNeutrophils (Bld) [#/Vol]4.9 E9/LNormal 2.0 - 7.5 E9/LRemisol HemeNeutrophils/100 WBC (Bld)59.4 %Lqtmvu11.0 - 75.0 % Remisol IhepJdgamxsi186.0 E9/ECsadps446.0 - 500.0 E9/LRemisol HemePlatelet mean volume (Bld) [Entitic vol]7.7 fLNormal6.4 - 10.8 fLRemisol HemeRBC (Bld) [#/Vol] 3.9 E12/LLow4.3 - 5.9 E12/LRemisol HemeWBC corrected for nucl RBC Auto (Bld) [#/Vol]8.3 E9/LNormal4.0 - 11.0 E9/LRemisol HemeMICRO OTHER TESTSOrdered By: Arash Sullivan on 75-88-9627Sppbibbwke A AgNegative (05/25/23 11:57 PM)NormalNegativeGRIFFIN [facility] Man SeroInfluenzae B AgNegative 1 (05/25/23 11:57 PM)NormalNegativeGRIFFIN [facility] Man SeroComment on above:Interpretive Data: Test sensitivity and specificity vary for age group, specimen type, antigen types, and prevalence of disease. Test results must be evaluated in conjunction with other clinical dataavailable to the physician. Individuals who received nasally administered Influenza A vaccine may have positive test results up to 3 days after vaccination.Rapid COV Int NEG CtlPass (05/25/23 11:57 PM)NormalGRIFFIN [facility]IAL [facility] Man SeroRapid COV Int POS CtlPass (05/25/23 11:57 PM)NormalGRIFFIN [facility]IAL [facility] Man SeroS. pyogenes Ag IA.rapid Ql (Throat)Negative (05/25/23 11:57 PM)NormalNegativeGRIFFIN [facility] Man SeroSARS-CoV+SARS-CoV-2 (COVID-19) Ag IA.rapid Ql (Resp)Not Detected 6 (05/25/23 11:57 PM)NormalNot DetectedGRIFFIN [facility]ORIAL [facility]OS[facility] Man SeroComment on above:Interpretive Data: The [facility] Veritor System for Rapid Detection of SARS-CoV-2 is a chromatographic digital immunoassay intended for the direct and qualitative detection of SARS-CoV-2 nucleocapsid antigens in nasal swabs from individuals who are suspected of COVID-19 by their healthcare provider withinthe first five days of the onset of [...] of proteins from SARS-CoV-2, not for any otherviruses or pathogens; and, in the [facility], this test is only authorized for the duration of the declaration that circumstances exist justifying the authorization of emergency use of in vitro diagnostics for detection and/or diagnosis of the virus that causes COVID-19 under Section 564(b)(1) of the Act,21 U.S.C. 360bbb-3(b)(1), unless the authorization is terminated or revoked sooner.PT & PTTon 01-53-9298nTQH Coag (PPP) [Time]35.4 second(s)Gteoev30.1-36.5Fisher [facility] CenterComment on above:Result Comment: Parameter 15 days - 4 weeks [...] the same coagulation reagent and instrumentation as [facility]. Currently there are no coagulation studies available worldwide for children to 14 days, andno normal ranges. Heparin therapeutic range (represented by Anti-Factor Xa activity of 0.2 - 0.4 U/mL) corresponds to PTT of 56.6 - 109.0 sec.Performed By: #### 1573915, 94247536, 49436802, 47525510, 0891787, 03833963 ####[facility] [address] [place], [place] [address]VBF Coag (PPP) [Relative time]0.98 {INR}Invalid Interpretation CodeBluffton HospitalComment on above: Result Comment: INR results are specifically intended to assess patients stabilized on long-term Anticoagulation therapy suggested INR?s ?Less Intensive Anticoagulation? 2.0 ? 3.0 Conventional Range 3.0 ? 4.5Performed By: #### 2445483, 55020485, 32272293, 05060683, 0777187, 24001709 ####[facility] [address] [place], [place] [address]IW Coag (PPP) [Time]11.0 second(s)Normal9.4-12.5 [facility] HospitalComment on above:Result Comment: 15 days - 4 weeks 1 [...] the same coagulation reagent and instrumentation as [facility]. Currently there are no coagulation studies available worldwide for children to 14 days, andno normal ranges.Performed By: #### 6701157, 76780518, 83410050, 92026813, 1885900, 97872667 ####Gurdeep [facility] [address] [place], [place] [address]JCLDJDZEMvgoxgn By: Arash Sullivan on 01-09-1444Ezbu HCG ( test) QlNegative (05/25/23 11:34 PM)NormalGRIFFIN MEMORIAL [facility]OSPITAL [facility] Man SeroConsent for Treatmenton 37-05-7818Qahubbn for [id number]#1.00TIFZanesville City HospitalPhysician Orderon 16-82-2836Tioiszcsw Order [id number]#1.00TIFZanesville City HospitalTS With T4fr Reflexon 20-73-4672ZOJ Qn2.36 m[IU]/LNormal0.34-5.60[facility] HospitalComment on above:Performed By: #### [id number] #### Gurdeep [facility] [address], [place] [address]Wsueoekqj Noteon 09-02-2286Nravglkho Note [id number]#1.00[facility] HospitalAlkaline phosphatase [Enzymatic activity/volume] in Serum or PlasmaOrdered By: Kirk Rush on 86-77-6951QMX [Catalytic activity/Vol]63 U/N44-149ZkjjgqxjjGalion Community HospitalAmylase [Enzymatic activity/volume] in Serum or Plasma Ordered By: Kirk Rush on 47-20-7966Rufomza [Catalytic activity/Vol]32 U/L 29-103Gal[facility] Community HospitalBilirubin.direct [Mass/volume] in Serum or PlasmaOrdered By: Kirk Rush on 16-40-7278Iolmqquke.direct [Mass/Vol]0.10 mg/dL0.03-0.18FGuernsey Memorial HospitalBilirubin.total [Mass/volume] in Serum or PlasmaOrdered By: Kirk Rush on 44-79-5925Jlkidzorl [Mass/Vol]0.5 mg/dL0.3-1.0[facility] Community HospitalHC ( test) IA.rapid Ql (U)Ordered By: Alonzo Robledo on 61-38-8400ORJ ( test) Ql (U)Negative [facility] HospitalLipase [Enzymatic activity/volume] in Serum or PlasmaOrdered By: Kirk Rush on 67-90-4026Prmebk [Catalytic activity/Vol]11.0 U/L11.0-82.0[facility] Hospital - Cantonerum or plasma non-glucuronidated bilirubin measurement (mass/volume)Ordered By: Kirk Rush on 04-06-2023 Bilirubin.indirect [Mass/Vol]0.4 mg/dLGalion Community HospitalPathology Noteon 07-04-0971Ketteqdmk [id number]#1.00TIFF [facility] HospitalPathology Reporton 98-80-0387Ffupbpvtj Report [id number]#1.00TIFZanesville City HospitalConsent for Treatmenton 84-26-2248Bsljnlw for Treatment [id number]#1.00[facility] HospitalPhysician Orderon 25-94-3532Gqcwcjduo Order [id number]#1.00[facility] HospitalXR CHEST 2 VIEWSon 03-15-2023 Exam Date/Time: 03/15/2023 18:37 EST Reason for [...] Ka,r in mGy = na DAP = naFTMCRadiology, RadiologistMD - 03/16/2023 Exam Date/Time: 03/15/2023 18:37 EST [...] in mGy = na DAP = na [facility] HealthcareRadiology Study observation (narrative)[facility] HealthcareXR CHEST 2 VIEWSOrdered By: Radiologist Radiology on 27-74-1448[facility] Work Phone: XR Chest 2 Viewson 71-24-4900II Chest 2 ViewsExam Date/Time: 03/15/2023 18:37 EST Reason for Exam: [...] Ka,r in mGy = na DAP = naNormalFisher [facility] CenterCT Chest W contrast Monisha 02-24-2023 IMPRESSION: 1. No interval change since 12/26/22. [...] any questions regarding this interpretation, please call [phone]. If you are unable to reach us at the number above, please feel free to contact [facility] Hospitaliology at [phone].DIVISION OF RADIOLOGY* * *Final Report* * * DATE OF [...] MRI scan report for the abdomen findings. Fixture Maker (topogram) images: No additional findings. DIVISION OF RADIOLOGYProvider, [facility] [place] - 02/24/2023 * * *Final Report* * [...] MRI scan report for the abdomen findings. Fixture Maker (topogram) images: No additional findings. IMPRESSION IMPRESSION: [...] any questions regarding this interpretation, please call [phone]. If you are unable to reach us at the number above, please feel free to contact [facility] eRadiology at [phone]. [facility]* * *Final Report* * * DATE OF [...] MRI scan report for the abdomen findings. Fixture Maker (topogram) images: No additional findings. IMPRESSION: 1. [...] any questions regarding this interpretation, please call [phone]. If you are unable to reach us at the number above, please feel free to contact [facility] Hospitaliology at [phone]. [id number]^AGFA_IDC^SI^ACNCCFRadiology, Radiologist, - 02/24/2023 * * *Final Report* [...] MRI scan report for the abdomen findings. Fixture Maker (topogram) images: No additional findings. IMPRESSION: 1. [...] any questions regarding this interpretation, please call [phone]. If you are unable to reach us at the number above, please feel free to contact [facility] eRadiology at [phone]. [id number]^AGFA_IDC^SI^ACN [facility] HealthcareCT Chest W contrast IVOrdered By: Ccf Provider on 02-24-2023 [facility] HospitalMR Abdomen WO and W contrast Monisha 42-70-5580LQSENVRBID: Postoperative changes in the right ventral abdominal [...] any questions regarding this interpretation, please call [phone]. If you are unable to reach us at the number above, please feel free to contact [facility] eRadiology at [phone].DIVISION OF RADIOLOGY* * *Final Report* * * DATE OF EXAM: Feb 23 2023 3:32PM [facility] 0689 - MRI ABDOMEN WO/W IVCON [...] performed will be reported separately. DIVISION OF RADIOLOGYProvider, [facility] [place] - 02/23/2023 * * *Final Report* * * DATE OF EXAM: Feb 23 2023 3:32PM [facility] 0689 - MRI ABDOMEN WO/W IVCON [...] any questions regarding this interpretation, please call [phone]. If you are unable to reach us at the number above, please feel free to contact [facility] eRadiology at [phone]. [facility]MRI [facility]/W IVCONon 02-23-2023* * *Final Report* * * DATE OF EXAM: Feb 23 2023 3:32PM [facility] 0689 - MRI ABDOMEN WO/W IVCON [...] any questions regarding this interpretation, please call [phone]. If you are unable to reach us at the number above, please feel free to contact [facility] eRadiology at [phone]. [id number]^AGFA_IDC^SI^ACNCCFRadiology, RadiologistMD - 02/24/2023 * * *Final Report* * * DATE OF EXAM: Feb 23 2023 3:32PM [facility] 0689 - MRI ABDOMEN WO/W IVCON [...] any questions regarding this interpretation, please call [phone]. If you are unable to reach us at the number above, please feel free to contact [facility] Hospital[facility] at [phone]. [id number]^AGFA_IDC^SI^ACN [facility] HealthcareNo Panel InformationOrdered By: Ccf Provider on 02-23-2023 [facility] Panel Informationon 28-80-1903Julikuezy Study observation (narrative)[facility] Urineon 24-62-4051Tenkowhi identified Cx Nom (U) Microbiology PROCEDURE: Urine Culture [R1] SOURCE: U CleanCatch BODY SITE: COLLECTED DATE/TIME: 02/14/2023 05:26 EST RECEIVED DATE/TIME: 02/14/2023 08:35 EST START DATE/TIME: 02/14/2023 08:36 EST FREE TEXT SOURCE: Héctor Christianson DO. Héctor Christianson DO. FINAL REPORTS Final Report [] Verified Date/Time: 02/16/2023 07:11 EST 25,000 cfu/ml Mixed skin contaminants Performing Locations R1: This test was performed at: [facility], [address] [place] [address], [address] [place] [address], UekwzgIwhogaThe Bellevue HospitalComment on above:Performed By: #### [id number] #### [facility] [address] [place] [address]Iqpg Diffon 81-94-7462Rrkdqnxxt/100 WBC (Bld)0.9 %Normal0.0-2.0 [facility] HospitalComment on above:Order Comment: Order Added by Discern Expert.Performed By: #### [id number] #### [address] [address]Qjfzfnlxk/Leukocytes Auto (Bld) [Pure # fraction]0.1 E9/LNormal 0.0-0.2FBellevue HospitalComment on above:Order Comment: Order Added by Discern Expert.Performed By: #### [id number] #### [facility] [address] [place] [address]Tkjydzyzbne/100 WBC (Bld)1.5 %Normal0.0-8.0[facility] HospitalComment on above:Order Comment: Order Added by Discern Expert.Performed By: #### [id number] #### [address], [place] [address]Xyjsvhgwshh/Leukocytes Auto (Bld) [Pure # fraction]0.2 E9/L Normal0.0-0.5FBellevue HospitalComment on above:Order Comment: Order Added by Discern Expert.Performed By: #### [id number] #### [facility] [address] [place] [address]Jqaynusdgyo/100 WBC (Bld)35.5 %Kpjrob12.0-50.0[facility] HospitalComment on above:Order Comment: Order Added by Discern Expert. Performed By: #### [id number] #### [facility] [address] [place] [address]Fgnwcuelvnt/Leukocytes Auto (Bld) [Pure # fraction]3.8 E9/L Normal1.0-4.0[facility] HospitalComment on above:Order Comment: Order Added by Discern Expert.Performed By: #### [id number] #### [facility] [address] [place] [address]Tqonzomrn/100 WBC (Bld)6.2 %Normal4.0-14.0[facility] HospitalComment on above:Order Comment: Order Added by Discern Expert.Performed By: #### [id number] #### [facility] [address] [place] [address]Ywebtpioh/Leukocytes Auto (Bld) [Pure # fraction]0.7 E9/LNormal 0.2-1.0[facility] HospitalComment on above:Order Comment: Order Added by Discern Expert.Performed By: #### [id number] #### [facility] [address] [place] [address]Bkfebapnzfy/100 WBC (Bld)55.9 %Wigdvl05.0-75.0[facility] HospitalComment on above:Order Comment: Order Added by Discern Expert. Performed By: #### [id number] #### [facility] [address] [place] [address]Wncroygeqen/Leukocytes Auto (Bld) [Pure # fraction]6.0 E9/L Normal2.0-7.5FBellevue HospitalComment on above:Order Comment: Order Added by Discern Expert.Performed By: #### [id number] #### [facility] [address], [place] [address]T hCG Qualon 43-62-5988Cioq HCG ( test) QlNegative NormalBluffton HospitalComment on above:Performed By: #### [id number] #### [facility] [address], [place] [address]SUAnu 04-29-9214Xxmmbrphhx [Mass/Vol]0.8 mg/dLNormal0.5-1.3 [facility] HospitalComment on above:Performed By: #### [id number] #### [facility] [address], [place] [address]Dakc nitrogen [Mass/Vol]13 mg/dLNormal5-21Bl[facility]ton HospitalComment on above:Performed By: #### [id number] #### [facility] [address], [place] [address]Yhra nitrogen/Creatinine [Mass ratio]16 No VeuetIceejr81-08 [facility] HospitalComment on above:Performed By: #### [id number] #### [facility] [address], [place] [address]Sueie gap [Moles/Vol]9 mmol/LNormal6-16[facility] HospitalComment on above:Performed By: #### [id number] #### [facility] [address], [place] [address]Clcqwqi [Mass/Vol]8.7 mg/dLLow8.9-11.1FBellevue HospitalComment on above:Performed By: #### [id number] #### [facility] [address], [place] [address]Iogmcoad [Moles/Vol]108 mmol/VOyroso002-997AvjwkvBluffton HospitalComment on above:Performed By: #### [id number] #### [facility] [address], [place] [address]KX1 [Moles/Vol]24 mmol/HFrdkmg67-98WtzemrBluffton Hospital Comment on above:Performed By: #### [id number] #### [facility] [address], [place] [address]Autvnke [Mass/Vol]107 mg/sIJcnjxt34-596AsmyeaBluffton HospitalComment on above:Result Comment: If this glucose result represents a fasting glucose, interpretation should refer tothe following reference range: 55-99 mg/dLPerformed By: #### [id number] #### [facility] [address], [place] [address]Opvbebior [Moles/Vol]3.5 mmol/LNormal3.5-5.3FBellevue HospitalComment on above:Performed By: #### [id number] #### [facility] [address] [place] [address]Sixscc [Moles/Vol]137 mmol/KHhbkoo436-499TttettBluffton HospitalComment on above:Performed By: #### [id number] #### [facility] [address] [place] [address]GKA w/ Auto Diffon 13-51-6182Awpaelyxttr distribution width (RBC) [Ratio]13.6 %Qjtbwe17.9-14.2FBellevue HospitalComment on above: Performed By: #### [id number] #### [facility] [address] [place] [address]Ccjselaurz (Bld) [Volume fraction]37.6 %Ufyzpa72.0-46.0[facility]ton HospitalComment on above:Performed By: #### [id number] #### [facility] [address] [place] [address]Wdyxoyltsi (Bld) [Mass/Vol]12.2 g/oEOpaxcy32.0-16.0[facility]ton HospitalComment on above:Performed By: #### [id number] #### [facility] [address], [place] [address]CTD (RBC) [Entitic mass]27.8 ezJabtea09.0-34.0[facility]ton HospitalComment on above:Performed By: #### [id number] #### [facility] [address] [place] [address]NQWP (RBC) [Mass/Vol]32.5 g/bSJejipn86.4-36.0[facility]ton HospitalComment on above:Performed By: #### [id number] #### [facility] [address] [place] [address]LMI (RBC) [Entitic vol]85.5 zTAsvrbq22.0-100.0Bl[facility]ton HospitalComment on above:Performed By: #### [id number] #### [facility] [address] [place] [address]Pczidnhs mean volume (Bld) [Entitic vol]8.1 fLNormal6.4-10.8 [facility] HospitalComment on above:Performed By: #### [id number] #### [facility] [address] [place] [address]Klgenberw (Bld) [#/Vol]347.0 E9/MGlusia423.0-500.0[facility]ton HospitalComment on above:Performed By: #### [id number] #### [facility] [address] [place] [address]GXH (Bld) [#/Vol]4.4 E12/LNormal4.3-5.9[facility]ton HospitalComment on above:Performed By: #### [id number] #### [facility] [address] [place] [address]MGU corrected for nucl RBC Auto (Bld) [#/Vol]10.7 E9/LNormal 4.0-11.0Bl[facility]ton HospitalComment on above:Performed By: #### [id number] #### [facility] [address] [place], [place] [address]KVLBEEONFFglakzw By: SYSTEM SYSTEM on 52-63-0974Qewkzpk [Mass/Vol]3.8 g/dLNormal3.3 - 5.0 gm/dLFTMC RemisolAlbumin/Globulin [Mass ratio] 1.0 {ratio}Low1.1 - 2.2[facility] RemisolALP [Catalytic activity/Vol]72 [iU]/jJxgtpv10 - 98 Int._Unit/LFTMC RemisolALT No additional P-5'-P [Catalytic activity/Vol]14 [iU]/dNormal6 - 46 Int._Unit/LFTMC RemisolAnion gap [Moles/Vol]10 mmol/LNormal6 - 16 mEq/LFTMC RemisolAST [Catalytic activity/Vol]20 [iU]/dNormal5 - 43 Int._Unit/LFTMC RemisolBilirubin [Mass/Vol]0.3 mg/dLNormal0.0 - 1.1 mg/dLFTMC RemisolCalcium [Mass/Vol]9.6 mg/dLNormal8.9 - 11.1 mg/dLFTMC RemisolChloride [Moles/Vol]109 mmol/BQmtdwt940 - 111 mmol/LFTMC RemisolCO2 [Moles/Vol]24 mmol/L Mxvdhu40 - 31 mmol/LFTMC RemisolCreatinine [Mass/Vol]0.7 mg/dLNormal0.5 - 1.3 mg/dLFTMC RemisolGFR/1.73 sq M.predicted among non-blacks MDRD (S/P/Bld) [Vol rate/Area]121 mL/min/1.73 k6Seexrw>=59mL/min/1.73 m2FT[facility] Chem SComment on above: Interpretive Data: Chronic kidney disease could be indicated at eGFR's of less than 60 mL/min/1.73m2. Kidney failure is indicated at less than 15 mL/min/1.73m2.Globulin (S) [Mass/Vol]3.7 g/dLNormal1.4 - 4.0 gm/dLFTMC Remisol Glucose [Mass/Vol]92 mg/kXQffnpr97 - 199 mg/dLFTMC RemisolComment on above: Interpretive Data: If this glucose result represents a fasting glucose, interpretation should referto the following reference range: 55-99 mg/dL Potassium [Moles/Vol]3.9 mmol/LNormal3.5 - 5.3 mmol/LFTMC RemisolProtein [Mass/Vol]7.5 g/dLNormal6.0 - 7.8 gm/dLFTMC RemisolSodium [Moles/Vol]139 mmol/L Zzgrfx080 - 145 mmol/LFTMC RemisolUrea nitrogen [Mass/Vol]12 mg/dLNormal5 - 21 mg/dLFTMC RemisolUrea nitrogen/Creatinine [Mass ratio]17 mg/hfClemtu61 - 20[facility] RemisolAlbumin [Mass/Vol]3.7 g/dLNormal3.3 - 5.0 gm/dLFTMC Remisol Albumin/Globulin [Mass ratio]1.1 {ratio}Normal1.1 - 2.2[facility] RemisolALP [Catalytic activity/Vol]74 [iU]/wBuxjnb92 - 98 Int._Unit/LFTMC RemisolALT No additional P-5'-P [Catalytic activity/Vol]14 [iU]/dNormal6 - 46 Int._Unit/LFTMC RemisolAnion gap [Moles/Vol]9 mmol/LNormal6 - 16 mEq/LFTMC RemisolAST [Catalytic activity/Vol]15 [iU]/dNormal5 - 43 Int._Unit/LFTMC RemisolBilirubin [Mass/Vol] 0.2 mg/dLNormal0.0 - 1.1 mg/dLFTMC RemisolBilirubin.direct [Mass/Vol]mg/dLNormal 0.1 - 0.4 mg/dLFTMC RemisolBilirubin.indirect [Mass or moles/Vol]Unable to Calculate mg/dLInvalid Interpretation Code0.1 - 0.9 mg/dLFTMC RemisolCalcium [Mass/Vol]8.7 mg/dLLow8.9 - 11.1 mg/dLFTMC RemisolChloride [Moles/Vol]108 mmol/L Lbpbmz202 - 111 mmol/LFTMC RemisolCO2 [Moles/Vol]24 mmol/OIenxlf17 - 31 mmol/L [facility] RemisolCreatinine [Mass/Vol]0.8 mg/dLNormal0.5 - 1.3 mg/dLFT Remisol GFR/1.73 sq M.predicted among non-blacks MDRD (S/P/Bld) [Vol rate/Area]103 mL/min/1.73 y1Ozhcio>=59mL/min/1.73 m2[facility] Chem SComment on above:Interpretive Data: Chronic kidney disease could be indicated at eGFR's of less than 60 mL/min/1.73m2. Kidney failure is indicated at less than 15 mL/min/1.73m2. Globulin (S) [Mass/Vol]3.4 g/dLNormal1.4 - 4.0 gm/dLFT RemisolGlucose [Mass/Vol]107 mg/sWRueiuz68 - 199 mg/dLGRIFFIN [facility]ORIAL [facility] RemisolComment on above:Interpretive Data: If this glucose result represents a fasting glucose, interpretation should referto the following reference range: 55-99 mg/dLLipase [Catalytic activity/Vol]35 U/RHudwop61 - 58 unit/LFTMC RemisolPotassium [Moles/Vol]3.5 mmol/LNormal3.5 - 5.3 mmol/LFC RemisolProtein [Mass/Vol]7.1 g/dLNormal6.0 - 7.8 gm/dLGRIFFIN [facility] RemisolSodium [Moles/Vol]137 mmol/KKhgaxq563 - 145 mmol/LFTMC RemisolUrea nitrogen [Mass/Vol]13 mg/dLNormal5 - 21 mg/dLGRIFFIN [facility]IAL [facility] RemisolUrea nitrogen/Creatinine [Mass ratio]16 mg/fuGxubvu44 - 20[facility] RemisolCMPon 53-44-7948Sugwcgf [Mass/Vol]3.8 g/dLNormal3.3-5.0[facility] Comment on above:Performed By: #### [id number] #### [facility] [address] [place] [address]Rpwbgpq/Globulin (S) [Mass conc ratio]1.0Low1.1-2.2FBellevue HospitalComment on above:Performed By: #### [id number] #### [facility] [address], [place] [address]GNY [Catalytic activity/Vol]72 Int._Unit/VVldwrb10-81WqqknhBluffton HospitalComment on above:Performed By: #### [id number] #### [facility] [address], [place] [address]TUK No additional P-5'-P [Catalytic activity/Vol]14 Int._Unit/L Normal6-46[facility] HospitalComment on above:Performed By: #### [id number] #### [facility] [address] [place] [address]Tljbq gap [Moles/Vol]10 mmol/LNormal6-16[facility] HospitalComment on above:Performed By: #### [id number] #### [facility] [address] [place] [address]DBX [Catalytic activity/Vol]20 Int._Unit/LNormal5-43[facility] HospitalComment on above:Performed By: #### [id number] #### [facility] [address] [place] [address]Enofdmgnc [Mass/Vol]0.3 mg/dLNormal0.0-1.1FBellevue HospitalComment on above:Performed By: #### [id number] #### [facility] [address], [place] [address]Xkwjtyh [Mass/Vol]9.6 mg/dLNormal8.9-11.1FBellevue HospitalComment on above:Performed By: #### [id number] #### [facility] [address], [place] [address]Bnccucdv [Moles/Vol]109 mmol/MSfkkfh411-793FodfraBluffton HospitalComment on above:Performed By: #### [id number] #### [facility] [address], [place] [address]RI8 [Moles/Vol]24 mmol/DTfxkjn16-68BtpmehBluffton Hospital Comment on above:Performed By: #### [id number] #### [facility] [address], [place] [address]Ahrfyfprde [Mass/Vol]0.7 mg/dLNormal0.5-1.3FBellevue HospitalComment on above:Performed By: #### [id number] #### [facility] [address], [place] [address]Cayocolv (S) [Mass/Vol]3.7 g/dLNormal1.4-4.0[facility] HospitalComment on above:Performed By: #### [id number] #### [facility] [address], [place] [address]Qjwrfks [Mass/Vol]92 mg/xRGkckby41-720UjksymBluffton HospitalComment on above:Result Comment: If this glucose result represents a fasting glucose, interpretation should refer tothe following reference range: 55-99 mg/dLPerformed By: #### [id number] #### [facility] [address], [place] [address]Gfgdrsfci [Moles/Vol]3.9 mmol/LNormal3.5-5.3FBellevue HospitalComment on above:Performed By: #### [id number] #### [facility] [address], [place] [address]Bnjfrkb [Mass/Vol]7.5 g/dLNormal6.0-7.8[facility] HospitalComment on above:Performed By: #### [id number] #### [facility] [address], [place] [address]Twqhet [Moles/Vol]139 mmol/SHtatnk864-853DkgnmsBluffton HospitalComment on above:Performed By: #### [id number] #### [facility] [address], [place] [address]Uzcr nitrogen [Mass/Vol]12 mg/dLNormal5-21Fish [facility] Medical CenterComment on above:Performed By: #### [id number] #### [facility] [address], [place] [address]Tcaf nitrogen/Creatinine [Mass ratio]17 No YmaebSukhzb60-01 [facility] HospitalComment on above:Performed By: #### [id number] #### [facility] [address], [place] [address]DU Abdomen/Pelvis w/ Contraston 02-74-2198XX Abdomen/Pelvis w/ ContrastExam Date/Time: 02/14/2023 03:58 EST Reason for Exam: [...] Lymph nodes: No abdominal or pelvic lymphadenopathy. Mesentery/Peritoneum/Retroperitoneum: No ascites or mass. Report Vasculature: The [...] Contrast: Isovue 300 Contrast amount in ml's: 100NoThe Bellevue HospitalConsent for Treatmenton 27-39-7586Qkntuve for Treatment [id number]#1.00TIFFAvita Health System Bucyrus HospitalConsent for [id number]#1.00TIFF [facility] HospitalDischarge Instructionson [id number] [id number]#1.00TIFMercy Health Cl[facility] Clinical Summaryon [id number] Clinical Summary [place] [address] ED Clinical Summary Person Information Name: ADINA MARTINEZ [facility] Age: 28 Years : 1995 Sex: Female Language: Danish PCP: Linnea HACKETT PA-C Marital Status: Single [...] 02/14/2023 07:14:20 02/14/2023 07:14:20 02/14/2023 07:14:20 ADDRESS: [address] [place] [id number] [facility] DOC NOTES: MEDICAL INFORMATION: Prescriptions Given: New Medications [facility]/pharmacy #[id number], [address] [place] [id number], [phone] dicyclomine (Bentyl 10 mg Cap) 1 Capsules [...] Pain, Adult Follow up: With: Address: When: iLnnea HACKETT [address] [place] [id number] [employer] (1) In 3 days DIAGNOSIS: AP (abdominal pain)[facility] CenterED Note-Physicianon 67-65-4825EP Note-PhysicianBasic Information Time Seen: Meghan Héctor 02/14/2023 02:31 Chief Complaint Upper ABD pain since 0000 and feels as though everything is twisting. Pain has been worsening. NoN/V/D. History of Present Illness HPI: Patient is [...] and Complexity of Problems Differential Diagnosis: [] [facility] Data External documents reviewed: N/A My EKG [...] she has the small surgical incision scar whereshe had a small lipoma removed. There is [...] day(s), # 28 cap(s), Refills(s) 0, [id number] 173, cm, 02/14/23 2:34:00 EST, Height/Length Dosing, 119.3, kg, 02/14/23 2:34:00 EST, Weight Dosing famotidine, 20 mg = 1 tab(s), Oral, Daily, X 7 day(s), # 7 tab(s), Refills(s) 0, Pharmacy: [facility]/pharmacy #[id number], 173, cm, 02/14/23 2:34:00 EST, Height/Length Dosing, 119.3, kg, 02/14/23 2:34:00 EST, Weight Dosing HYDROmorphone, 0.5 mg = 0.5 mL, Injection, IV Push, Once, Stop date 02/14/23 3:41:00 EST, STAT, Start date 02/14/23 3:41:00 EST, 02/14/23 3:41:00 EST ketorolac, 15 mg = 1 mL, Injection, IV Push, Once, Stop date 02/14/23 2:39:00 EST, STAT, Start date02/14/23 2:39:00 EST, 02/14/23 2:39:00 EST morphine, 4 [...] 10 mg= 1 cap(s (more content not included)...[facility] HospitalComment on above:Result Comment: Electronically Signed By: Hécotr Christianson DO\.br\Date and Time Signed: 02/14/23 06:29 ESTED Patient Education Noteon 09-10-9014NT Patient Education NoteGastroenterology Abdominal Pain, Adult Pain in the abdomen [...] these instructions at home: Medicines ? Take jujf-zzw-ytxahgh and prescription medicines only as told by [...] your condition for any changes. ? Take fxly-vhs-bpjhjqw and prescription medicines only as told by [...] Reviewed: 07/08/2019 Elsevier Patient Education ? 2022 [employer].[facility] ED Patient Summaryon [id number] Patient Summary [address] [address] Patient Discharge Instructions Person Information Name: ADINA MARTINEZ Age: 28 Years Arrival Date: 02/14/2023 02:28:07 Discharge Diagnosis: AP (abdominal pain) Primary Care Physician: Linnea HACKETT PA-C Provider Information Primary Provider: Héctor Christianson DO Advanced Fire Coordinator:None The exam and treatment you received in the Emergency Department were for an urgent problem and are not intended as complete care. It is important that you follow up with a doctor, nurse practitioner,or physician?s talent assistant for ongoing care. If your symptoms become worse or you do not improve as expected and you are unable to reach your usual health care provider, you should return to the Emergency Department. We are available 24 hours a day. JTADINA ARORA has been given the following list of patient education materials, prescriptions and follow-up instructions: Follow-up Instructions: With: Address: When: Linnea HACKETT [address] [place] [address] Business (1) In 3 days In the event that this physician does not participate in your insurance network, please consult with your insurance company to find a nearby participating provider. Patient Education Materials: Abdominal Pain, Adult A MESSAGE TO ALL PATIENTS REGARDING OPIOIDS PRESCRIPTION OPIOIDS: WHAT YOU NEED TO KNOW Prescription opioids can be used to help relieve rsigbzku-ax-nqdrxx pain and are often prescribed following a [...] and have fewer risks and side effects. Optionsmay include: ? Pain relievers such as acetaminophen, [...] your community drug take- back program or yourfranciscan healthrmUnited Mobile Apps mail-back program, or flush them down the toilet, following guidance from the Food and Drug Administration (www.fda.gov/Drugs/ResourcesForYou). ? Visit www.cdc.gov/drugoverdose to learn about the risks of opioids abuse and overdose. ? If you believe you may be struggling with addiction, tell your health hemodialysis patient care specialist and ask for guidance or call [facility]?S National Helpline at 9-279-523-BLDE. g Source: Department of (more content not included)...[facility] HospitalHEMATOLOGYOrdered By: SYSTEM SYSTEM on 20-88-0679Mbshivlcs/100 WBC (Bld)0.9 %Normal0.0 - 2.0 %[facility] HemeAutoSSBasophils/Leukocytes Auto (Bld) [Pure # fraction]0.1 E9/LNormal0.0 - 0.2 E9/LFTMC HemeAutoSSEosinophils/100 WBC (Bld) 1.5 %Normal0.0 - 8.0 %[facility] HemeAutoSSEosinophils/Leukocytes Auto (Bld) [Pure # fraction]0.2 E9/LNormal0.0 - 0.5 E9/LFTMC HemeAutoSSLymphocytes/100 WBC (Bld) 35.5 %Wfvlir71.0 - 50.0 %[facility] HemeAutoSSLymphocytes/Leukocytes Auto (Bld) [Pure # fraction]3.8 E9/LNormal1.0 - 4.0 E9/LFT[facility] HemeAutoSSMonocytes/100 WBC (Bld)6.2 %Normal4.0 - 14.0 %[facility] HemeAutoSSMonocytes/Leukocytes Auto (Bld) [Pure # fraction]0.7 E9/LNormal0.2 - 1.0 E9/LFTMC HemeAutoSSNeutrophils/100 WBC (Bld) 55.9 %Zzyvsh01.0 - 75.0 %FT HemeAutoSSNeutrophils/Leukocytes Auto (Bld) [Pure # fraction]6.0 E9/LNormal2.0 - 7.5 E9/LFC HemeAutoSSHEMATOLOGYOrdered By: Pallavi Emerson on 59-02-3141Pygdajgyzcb distribution width (RBC) [Ratio]13.6 % Apyszm43.9 - 14.2 %FT HemeAutoSSHematocrit (Bld) [Volume fraction]37.6 %Normal 34.0 - 46.0 %FT HemeAutoSSHemoglobin (Bld) [Mass/Vol]12.2 g/aOBwjzbi27.0 - 16.0 gm/dLFTMC HemeAutoSSMCH (RBC) [Entitic mass]27.8 rzQhogiz64.0 - 34.0 pgFTMC HemeAutoSSMCHC (RBC) [Mass/Vol]32.5 g/hLIdawpb65.4 - 36.0 gm/dLFTMC HemeAutoSS MCV (RBC) [Entitic vol]85.5 cHMoyroz73.0 - 100.0 fLFT HemeAutoSSPlatelet mean volume (Bld) [Entitic vol]8.1 fLNormal6.4 - 10.8 fLFTMC HemeAutoSSPlatelets (Bld) [#/Vol]347.0 E9/SStucnh951.0 - 500.0 E9/LFC HemeAutoSSRBC (Bld) [#/Vol] 4.4 E12/LNormal4.3 - 5.9 E12/LFC HemeAutoSSWBC corrected for nucl RBC Auto (Bld) [#/Vol]10.7 E9/LNormal4.0 - 11.0 E9/LFOKLAHOMA SPINE HOSPITAL [facility] [place] HemeAutoSSHep Func Panelon 31-58-1001Zkqywftlu.indirect [Mass or moles/Vol]UTCAbnormal0.1-0.9[facility] HospitalComment on above:Result Comment: Result verified by Discern Rule. Performed result UTC (Unable to Calculate) was sent as an Alpha code due the inability to calculate a valid numeric value.Performed By: #### [id number] #### [facility] [address], [place] [address]Zltdvwz [Mass/Vol]3.7 g/dLNormal3.3-5.0[facility] HospitalComment on above:Performed By: #### [id number] #### [facility] [address], [place] [address]Kgjwikd/Globulin (S) [Mass conc ratio]1.4Cjgvue9.1-2.2FBellevue HospitalComment on above:Performed By: #### [id number] #### [facility] [address], [place] [address]HTL [Catalytic activity/Vol]74 Int._Unit/LAzdacn51-43CjyqzlBluffton HospitalComment on above:Performed By: #### [id number] #### [facility] [address], [place] [address]ZOL No additional P-5'-P [Catalytic activity/Vol]14 Int._Unit/L Normal6-46[facility] HospitalComment on above:Performed By: #### [id number] #### [facility] [address], [place] [address]NBU [Catalytic activity/Vol]15 Int._Unit/LNormal5-43[facility] HospitalComment on above:Performed By: #### [id number] #### [facility] [address], [place] [address]Sxzuuvith [Mass/Vol]0.2 mg/dLNormal0.0-1.1FBellevue HospitalComment on above:Performed By: #### [id number] #### [facility] [address], [place] [address]Nsnqfnyx (S) [Mass/Vol]3.4 g/dLNormal1.4-4.0[facility] HospitalComment on above:Performed By: #### [id number] #### [facility] [address], [place] [address]Yrfejlg [Mass/Vol]7.1 g/dLNormal6.0-7.8[facility] HospitalComment on above:Performed By: #### [id number] #### [facility] [address], [place] [address]Pwyaagcms.direct [Mass/Vol]mg/dLNormal0.1-0.4FBellevue HospitalComment on above:Performed By: #### [id number] #### [facility] [address], [place] [address]Kkdiwx Levelon 08-05-8627Sywwgg [Catalytic activity/Vol]35 U/L Lxamks38-89BagekhBluffton HospitalComment on above:Performed By: #### [id number] #### [facility] [address], [place] [address]Jejxjvzih Orderon [id number] Order [id number]#1.00TIFZanesville City HospitalRAD - Preliminary Cat Scan Reporton [id number] - Preliminary Cat Scan [id number]#1.00TIFMartins Ferry HospitalEROLOGYOrdered By: Pallavi Emerson on 58-15-7284Eicm HCG ( test) QlNegative (02/14/23 2:47 AM)NormalGRIFFIN [facility]IAL [facility] Man SeroUA With Cult Reflexon [id number] LM Ql (Urine sed)2+ /HPFAbnormalTraceBluffton HospitalComment on above: Performed By: #### [id number] #### [facility] [address], [place] [address]Nnjeoavcg Ql (U)NegativeNormalNegativeBluffton HospitalComment on above:Performed By: #### [id number] #### [facility] [address], [place] [address]Twgkcwt (U)CLOUDYAbnormalClearFBellevue Hospital Comment on above:Performed By: #### [id number] #### [facility] [address], [place] [address]Yjnba (U)YELLOWNormalYellowBluffton HospitalComment on above:Performed By: #### [id number] #### [facility] [address], [place] [address]Neeiirdd LM Ql (Urine sed)PresentNormalBluffton HospitalComment on above:Performed By: #### [id number] #### [facility] [address], [place] [address]Qsfcngtgkp cells.squamous LM.HPF (Urine sed) [#/Area]/[HPF] Normal0-2FBellevue HospitalComment on above:Performed By: #### [id number] #### [facility] [address], [place] [address]Fsksvji Test strip (U) [Mass/Vol]NegativeNormalNegKettering Health Main CampusComment on above:Performed By: #### [id number] #### [facility] [address], [place] [address]Hakldxzale Ql (U)3+AbnormalNegKettering Health Main Campus Comment on above:Performed By: #### [id number] #### [facility] [address], [place] [address]Kwdapza (U) [Mass/Vol]NegativeNormalNegativeBluffton HospitalComment on above:Performed By: #### [id number] #### [facility] [address], [place] [address]Drwmugv.plasma/[place].RBC (Bld) [Mass ratio]4-26Eftaza4-2 [facility] HospitalComment on above:Performed By: #### [id number] #### [facility] [address], [place] [address]Flril Ql (Urine sed)TRACENormAdena Regional Medical Center Comment on above:Performed By: #### [id number] #### [facility] [address] [place] [address]Xccehjt Ql (U)NegativeNormalNegativeBluffton Hospital Comment on above:Performed By: #### [id number] #### [facility] [address] [place] [address]rP (U)5.0 [pH]Invalid Interpretation Code5.0-9.0Bl[facility]ton HospitalComment on above:Performed By: #### [id number] #### [facility] [address] [place] [address]Wqalmgf (U) [Mass/Vol]1+AbnormalNegativeBluffton HospitalComment on above:Performed By: #### [id number] #### [facility] [address] [place] [address]Exhqypvr gravity (U) [Rel density]1.020Invalid Interpretation Code1.005-1.030Bl[facility]ton HospitalComment on above:Performed By: #### [id number] #### [facility] [address] [place] [address]Cabv of Urine collection methodClean CatchNormalBluffton HospitalComment on above:Performed By: #### [id number] #### [facility] [address] [place] [address]Hhlnhxrwscjv Qn (U)0.2 {Vidya'U}/dLNormal0.0-1.0[facility] HospitalComment on above:Performed By: #### [id number] #### [facility] [address] [place] [address]NQF Auto Ql (U)NegativeNormalNegativeBluffton HospitalComment on above:Performed By: #### [id number] #### [facility] [address] [place] [address] 79769MZT LM.HPF (Urine sed) [#/Area]7-4Emyfjw4-7Nfbqxf [facility] CenterComment on above:Performed By: #### [id number] #### [facility] [address] [place], [place] [address]MNBQVFEQDYUbbcuty By: Pallavi Emerson on 06-97-9307Gvcgiflc LM Ql (Urine sed)2+ /HPFInvalid Interpretation CodeTrace/HPFFT UA Auto SS Bilirubin Ql (U)Negative (02/14/23 5:26 AM)NormalNegativeGRIFFIN [facility] UA Auto SSClarity (U)Cloudy *ABN* (02/14/23 5:26 AM)Invalid Interpretation CodeClearFOKLAHOMA [facility] [place] UA Auto SSColor (U)Yellow (02/14/23 5:26 AM)NormalYellowGRIFFIN MEMORIAL HOSPITAL [facility] UA Auto SSCrystals LM Ql (Urine sed)Present (02/14/23 5:26 AM)NormalGRIFFIN [facility]ORIAL [facility]OSP[facility] UA Auto SSEpithelial cells.squamous LM.HPF (Urine sed) [#/Area]/[HPF]Normal0-2/HPFGRIFFIN MEMORIAL HOSPITAL – [facility] UA Auto SSGlucose Test strip (U) [Mass/Vol] Negative (02/14/23 5:26 AM)NormalNegativeGRIFFIN [facility]IAL [facility] UA Auto SSHemoglobin Ql (U)3+ *ABN* (02/14/23 5:26 AM)Invalid Interpretation CodeNegativeGRIFFIN [facility]IAL [facility] UA Auto SSKetones (U) [Mass/Vol]Negative (02/14/23 5:26 AM)NormalNegativeGRIFFIN [facility] UA Auto SSLithium.plasma/[place].RBC (Bld) [Mass ratio]4-20 /HPFNormal0-3/HPFGRIFFIN MEMORIAL HOSPITAL – [facility] UA Auto SSMucus Ql (Urine sed)Trace (02/14/23 5:26 AM)NormalGRIFFIN [facility]ORIAL [facility] UA Auto SSNitrite Ql (U)Negative (02/14/23 5:26 AM)NormalNegativeGRIFFIN [facility] UA Auto SSpH (U)5.0 *NA* (02/14/23 5:26 AM)Invalid Interpretation Code5.0 - 9.0[facility] UA Auto SSProtein (U) [Mass/Vol]1+ *ABN* (02/14/23 5:26 AM)Invalid Interpretation CodeNegativeGRIFFIN [facility]IAL [facility] UA Auto SSSpecific gravity (U) [Rel density]1.020 *NA* (02/14/23 5:26 AM)Invalid Interpretation Code1.005 - 1.030[facility] UA Auto SSUA Spec DescClean Catch (02/14/23 5:26 AM)NormalGRIFFIN [facility]ORIAL [facility]OSP[facility] UA Auto SSUrobilinogen Qn (U)0.6884731 {Vidya'U}/dLNormal0.0 - 1.0 EU/dLGRIFFIN MEMORIAL [facility]OSP[facility] UA Auto SSWBC Auto Ql (U)Negative (02/14/23 5:26 AM)NormalNegativeGRIFFIN [facility] UA Auto SSWBC LM.HPF (Urine sed) [#/Area]0-5 /HPFNormal0-5/HPFGRIFFIN MEMORIAL HOSPITAL – [facility] UA Auto SSeGFRon 77-81-7471DDO/1.73 sq M.predicted among non-blacks MDRD (S/P/Bld) [Vol rate/Area]121 mL/min/1.73 v1Fgqcar>=59Bl[facility] HospitalComment on above:Order Comment: Order added by Discern Expert.Result Comment: Chronic kidney disease could be indicated at eGFR's of less than 60 mL/min/1.73m2. Kidney failure is indicated at less than 15 mL/min/1.73m2.Performed By: #### [id number] #### [facility] [address], [place] [address]PNT/1.73 sq M.predicted among non-blacks MDRD (S/P/Bld) [Vol rate/Area]103 mL/min/1.73 j8Ahydbw>=59Bl[facility] HospitalComment on above:Order Comment: Order added by Discern Expert.Result Comment: Chronic kidney disease could be indicated at eGFR's of less than 60 mL/min/1.73m2. K idney failure is indicated at less than 15 mL/min/1.73m2.Performed By: #### [id number] #### [facility] [address], [place] [address]Frlcqxariofk Noteon 25-19-1770Isuvbtnmmasv Note [id number]#1.00TIFFNormWVUMedicine Harrison Community Hospital CenterED Note-Physicianon 74-93-8271AJ Note-PhysicianBasic Information Time Seen: Viky Ye PA-C 01/26/2023 15:31 Chief Complaint pt states migraine and nausea x12 days History of Present Illness 28-year-old female presents to ED complaining of headache. Patient reports that she has been havinga migraine headache for the last 12 days. [...] Once, Stop date 01/26/23 16:18:00 EST, STAT, Startdate 01/26/23 16:18:00 EST, 01/26/23 16:18:00 EST orphenadrine, [...] HACKETT In [address] [place] [address]- Business (1) Additional Instructions: Patient Education Migraine Headache Attestation Patient was treated and evaluated by the Physician Shipping Support. The attending physician was in the Emergency [...] aerosol, 1 puff(s), Inhalation, (more content not included)...[facility] HospitalComment on above: Result Comment: Electronically Signed By: Viky Ye PA-C\.br\Date and Time Signed: 01/27/23 00:43 EST\.br\Electronically Co-Signed By: Cliff Gusman DO\.br\Date and Time Co-Signed: 01/27/23 06:39 ESTPathology Noteon 01-27-2023 Pathology [id number]#1.00TIFZanesville City HospitalPathology Reporton 35-07-4392Oszlvvahw Report [id number]#1.00TIFZanesville City HospitalCT Head or Brain w/o Contraston 79-20-7562NU Head or Brain w/o Contrast Exam Date/Time: [...] Nguyễn MD, V. Transcribed by: MIRIAM Technologist: [facility] HospitalConsent for Treatmenton 25-96-5428Hcnrilv for Treatment [id number]#1.00TIFZanesville City HospitalDischarge Instructionson 49-97-0942Fquwmaslu Instructions [id number]#1.00TIFMercy Health Clermont Hospital Clinical Summaryon 80-65-0990QP Clinical Summary [place] [address] ED Clinical Summary Person Information Name: ADINA MARTINEZ [facility] Age: 28 Years : 1995 Sex: Female Language: Danish PCP: Linnea HACKETT PA-C Marital Status: Single [...] 01/26/2023 18:22:10 01/26/2023 18:22:10 01/26/2023 18:22:10 ADDRESS: [address] [place] [id number] [facility] DOC NOTES: MEDICAL INFORMATION: Prescriptions Given: [...] Headache Follow up: With: Address: When: Linnea SYEDMERS [address] [place] [phone] [employer] (1) In 3 days DIAGNOSIS: 1:Migraine headacheNormalFisher Michael Medical CenterED Patient Education Noteon 33-10-8067OS Patient Education NoteNeurology Migraine Headache A migraine headache is an [...] these instructions at home: Medicines ? Take rier-phd-wqohefv and prescription medicines only as told by your health care provider. ? Ask your health care provider if the medicine prescribed to you: ? Requires you to avoid driving or using heavy machinery. ? Can cause constipation. You may need to take these actions to prevent or treat constipation: ? Drink enough fluid to keep your urine pale yellow. ? Take jymq-hom-iewegsd or prescription medicines. ? Eat foods that [...] are different or (more content not included)... [facility] Patient Summaryon 40-76-2583DM Patient Summary [place] [address] Patient Discharge Instructions Person Information Name: ADINA MARTINEZ Age: 28 Years Arrival Date: 01/26/2023 14:45:24 Discharge Diagnosis: 1:Migraine headache Primary Care Physician: Linnea HACKETT PA-C Provider Information Primary Provider: Cliff Gusman DO Advanced Fire Coordinator:Viky Ye PA-C The exam and treatment you received in the Emergency Department were for an urgent problem and are not intended as complete care. It is important that you follow up with a doctor, nurse practitioner,or physician?s talent assistant for ongoing care. If your symptoms [...] Address: When: Linnea HACKETT [address] [place] [address] Business (1) In 3 days In the event that this physician does not participate in your insurance network, please consult with your insurance company to find a nearby participating provider. Patient Education Materials: Migraine Headache A MESSAGE TO ALL PATIENTS REGARDING OPIOIDS PRESCRIPTION OPIOIDS: WHAT YOU NEED TO KNOW Prescription opioids can be used to help relieve whvejllw-qa-mnfspr pain and are often prescribed following a [...] and have fewer risks and side effects. Optionsmay include: ? Pain relievers such as acetaminophen, [...] your community drug take- back program or [employer] mail-back program, or flush them down the toilet, following guidance from the Food and Drug Administration (www.fda.gov/Drugs/ResourcesForYou). ? Visit www.cdc.gov/drugoverdose to learn about the risks of opioids abuse and overdose. ? If you believe you may be struggling with addiction, tell your health hemodialysis patient care specialist and ask for guidance or call [facility]?S National Helpline at 3-134-521-KRHP. v Source: US D (more content not included)...[facility] Pathology Noteon 61-33-3522Dnpvujdkj Note [id number]#1.00TIFFNoThe Bellevue HospitalPathology Reporton 69-85-9309Myjembdws Report [id number]#1.00TIFFNormAdena Regional Medical CenterPathology Noteon 21-97-3616Iggrnddnk Note [id number]#1.00TIFFNoThe Bellevue HospitalPathology Noteon 04-50-2703Ynrimgvux Note [id number]#1.00TIFFNoThe Bellevue HospitalPathology Reporton 92-33-0009Ycggloipj Report [id number]#1.00[facility] Memorial HospitalCHEMISTRYOrdered By: SYSTEM SYSTEM on 55-47-5651Qckc T4 [Mass/Vol]1.13 ng/dLNormal0.58 - 1.64 ng/dLGRIFFIN [facility]IAL [facility] RemisolTSH Qn0.01 m[IU]/LLow0.34 - 5.60 mcIU/mL [facility] RemisolConsent for Treatmenton 68-91-1034Odprplf for Treatment [id number]#1.00TIFZanesville City HospitalFree T4on 82-34-3712Uqsh T4 [Mass/Vol]1.13 ng/dLNormal0.58-1.64Bluffton HospitalComment on above:Order Comment: Free T4 added by Discern Rule due to a TSH result of <0.34 or >5.60.Performed By: #### [id number], [id number] ####[facility] [address] [place] [address] Physician Orderon 36-23-7611Rmxojoubm Order [id number]#1.00TIFZanesville City HospitalTS With T4fr Reflexon 70-04-5347MOW Qn0.01 m[IU]/LLow0.34-5.60[facility] HospitalComment on above:Performed By: #### [id number], [id number] ####[facility] [address] [place] [address] Ambulatory Visit Summaryon 08-73-5531Ycdpbhpulk Visit Summary ADINA MARTINEZ :1995 Visit Date:12/30/2022 Ambulatory Visit Instructions Your Care Team Attending Physician - CITLALI VELASQUEZ, Gabe Parsons Primary Care Physician - BORIS HILLMAN, Linnea Herndon This Is Your Medications [...] Capsules By Mouth Every day Contact prescribing physicianif questions or concerns Unchanged levothyroxine (levothyroxine 137 [...] obesity PCOS (polycystic ovarian syndrome) Periumbilical mass [facility] Noteon 02-02-7463Keqktsq Surgery Office/Clinic NoteChief Complaint post operative follow up HPI Staff 8 day post operative follow up post excisional biopsy right abdominal wall lipoma. Denies discomfort, bleeding or drainage. History of Present Illness 8 day s/p excisional biopsy of nodule right abd wall; no pain now, no drainage from incision. pathology sent out to [facility], still pending. Review of Systems ROS - [...] follow-up visit, related to the original procedure [id number] Follow-up No qualifying data available Problem List/Past [...] 04/17/2020 Recorded SARS-CoV-2 (COVID-19) mRNA-1273 vaccine 03/20/2020 RecordedAvita Health System Bucyrus HospitalComment on above:Result Comment: Electronically Signed By: CITLALI VELASQUEZ, Gabe Monte\Date and Time Signed: 12/30/22 16:32 EDTIntraOperative Documentson 86-75-1008WeswcGvtrkfbxp Documents [id number]#1.00TIFZanesville City HospitalPrescriptions/Work Noteson 64-12-2597Wfokwhqskxiaj/Work Notes [id number]#1.00TIFZanesville City HospitalAuto Diffon 32-89-9153Sgqfdzlsu/100 WBC (Bld)0.9 %Normal0.0-2.0[facility] HospitalComment on above:Order Comment: Order Added by Discern Expert.Performed By: #### [id number], [id number] #### [facility] [address] [place] [address] 03194Ckvgaqrdl/Leukocytes Auto (Bld) [Pure # fraction]0.1 E9/LNormal 0.0-0.2FBellevue HospitalComment on above:Order Comment: Order Added by Discern Expert.Performed By: #### [id number], [id number] #### [facility] [address] [place] [address] 66[address]Vhsajjsrwnz/100 WBC (Bld)0.7 %Normal0.0-8.0[facility] HospitalComment on above:Order Comment: Order Added by Discern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 Benoit RN Comment: jina - 11/26/2021 18:17 - Maddi Gomez RN Comment: Denies. - 01/04/2022 00:57 - Kely Luis RN Tobacco 12/12/2022 Risk Assessment: Denies Tobacco Use 12/12/2022 Tobacco Use: Never (less than 100 in l Smokeless tobacco use: Never . Physical Examination Airway: Mallampati classification: II (soft palate, fauces, uvula visible). Respiratory: adequate air exchange. Cardiovascular: Regular rhythm. Plan [place] [employer] Anesthesiologists (ASA) physical status classification: Class II. Anesthetic Preoperative Plan: Anesthesia General.[facility] HospitalComment on above:Result Comment: Electronically Signed By: Chapito Holland Jr, DO\.br\Date and Time Signed: 12/23/22 15:47 EDTProgress Note-Physician Patient: ADINA MARTINEZ Age: 27 years [...] Discharge when meets criteria ( To home ).[facility] HospitalComment on above:Result Comment: Electronically Signed By: Chapito Holland Jr, DO\Eulabr\Date and Time Signed: 12/23/22 15:46 EDTCapillary Glucose POCon 78-45-6028Otcpsoo [Mass/Vol]93 mg/dL [address] Edwards StreetComment on above:Result Comment: Cleaned MeterPerformed By: #### [id number] #### [facility] [address] [place] [address]Gwtqufv for Treatmenton 63-32-1363Pgfwyiw for Treatment [id number]#1.00TIFFNoalBluffton HospitalDischarge Instructionson 95-73-6786Dxqyzutfe Instructions ADINA MARTINEZ :1995 Visit Date:12/22/2022 Inpatient [...] When: Within 7 to 10 days Where: [address] [place] [address], [facility] [address] [address]- [facility] (1) Medications What How Much [...] your health care provider approves. Ask your healthcare provider if you may take showers. You [...] and water are not available, use hand level designer. ? Change your dressing as told by [...] or a bad smell. Medicines ? Take pqtv-lzg-zlyrfbo and prescription medicines only as told by [...] You have pain philip (more content not included)...[facility] HospitalComment on above:Result Comment: Electronically Signed By: Placido DONNELLY, Gordon Grider\.br\Date and Time Signed: 12/22/22 10:15 EDTInpatient Patient Summaryon 12-55-0004Aizbrnxar Patient Summary [address] [address] [facility] Clinical Discharge Instructions PERSON INFORMATION Name: ADINA MARTINEZ PHYSICIANS Admitting Physician: Gabe GODWIN MD Attending Physician: Gabe GODWIN MD PCP: Linnea HACKETT PA-C Discharge Diagnosis: Lipoma of abdominal wall Comment: PATIENT EDUCATION INFORMATION Instructions: Medication Leaflets: Follow up: With: Address: When: Gabe GODWIN [address] [facility], [address], [place] [id number] [facility] (1) Within 7 to 10 [...] 1 Tablets By Mouth every day., PCOS Comment:[facility] HospitalMain OR Intraoperative Recordon 95-19-6385Qrlt OR Intraoperative RecordIntraOp Document Type FT Summary Primary Physician: Gabe GODWIN MD Finalized Date/Time: 12/22/22 13:42:37 Pt. Name: ADINA MARTINEZ /Sex: 1995 Female Med Rec #: [id number] Physician: Gabe GODWIN MD Financial #: [id number] Pt. Type: A Room/Bed: [place] [address] Admit/Disch: 12/22/22 06:48:48 - 12/22/22 11:25:00 Institution: [...] Kemi GODWIN MD, Chapito Casiano Role Performed CHEMICAL WEIGHER Surgeon - Primary STRIPPER PRELIMINARY/SA Time In 12/22/22 08:42:00 12/22/22 08:42:00 12/22/22 [...] Attendee Sarah DONNELLY, Ursula Mckeon Role Performed Substation Electrician Supervisor - Primary Scrub - Primary Time In 12/22/22 08:42:00 12/22/22 08:42:00 Time Out 12/22/22 09:19:00 12/22/22 09:19:00 Procedure CYST LESION REMOVAL CYST LESION REMOVAL GENERAL ANES(.) GENERAL ANES(.) Comments Last Modified By: Sarah DONNELLY, Tatianna Owens RN 12/22/22 Dolly Warner 12/22/22 09:21:16 09:21:16 Perioperative Protocols FT Pre-Care [...] and tissue Entry 1 Skin Integrity Intact, [place], Warm, and Skin Abnormality No Dry Outcomes [...] evaluates the patient fo (more content not included)...[facility] HospitalMain OR PACU I Recordon 51-17-2415Dswf OR PACU I RecordPACU Phase I Document Type FT Summary Primary Physician: Gabe GODWIN MD Finalized Date/Time: 12/22/22 10:30:05 Pt. Name: ADINA MARTINEZ/Sex: 1995 Female Med Rec #: [id number] Physician: Gabe GODWIN MD Financial #: [id number] Pt. Type: A Room/Bed: [place] [address] Admit/Disch: 12/22/22 06:48:48 - Institution: Case Times [...] individualized perioperative plan of care The patient's rightto privacy is maintained The patient's value system, [...] with or improved from baseline levels established preoperativelyThe patient's cardiovascular status is consistent with or improved from baseline levels established preoperatively The patient's cardiovascular status is consistent with or improved from baseline levels established preoperatively The patient demonstrates and/or reports adequate pain control throughout the perioperative period The patient received appropriate medication(s), safely administered during the perioperativeperiod Acuity Level PACU I FT Entry 1 Start Time 12/22/22 09:16:00 Stop Time 12/22/22 10:08:00 Acuity Level Acuity Level I Last Modified By: Wendy Solomon RN 12/22/22 10:30:02 Finalized By: Wendy Solomon RN Document Signatures Signed By: Wendy Solomon RN 12/22/22 10:30[facility] HospitalMain OR PACU II Recordon 95-36-6756Dyas OR PACU II RecordPACU Phase II Document Type FT Summary Primary Physician: Gabe GODWIN MD Finalized Date/Time: 12/22/22 12:44:13 Pt. Name: ADINA MARTINEZ Oneal/Sex: 1995 Female Med Rec #: [id number] Physician: Gabe GODWIN MD [facility] #: [id number] Pt. Type: A Room/Bed: [facility] Admit/Disch: 12/22/22 06:48:48 - Institution: Case Times [...] and monitors body temperature Evaluates postoperative respiratory statusEvaluates postoperative cardiac status Evaluates postoperative neurological status [...] individualized perioperative plan of care The patient's rightto privacy is maintained The patient's value system, [...] with or improved from baseline levels established preoperativelyThe patient's cardiovascular status is consistent with or improved from baseline levels established preoperatively The patient's neurological status is consistent with or improved from baseline levels established preoperatively The patient demonstrates and/or reports adequate pain control throughout the perioperative period The patient received appropriate medication(s), safely administered during the perioperativeperiod Finalized By: Geraldine Ivan LPN Document Signatures Signed By: Geraldine Ivan LPN 12/22/22 12:44 Geraldine Ivan LPN 12/22/22 12:44Normal [facility] HospitalMain OR Preoperative Recordon 86-92-4044Rrrm OR Preoperative RecordPreOp Document Type FT Summary Primary Physician: Gabe GODWIN MD Finalized Date/Time: 12/22/22 08:59:46 Pt. Name: ADINA MARTINEZ /Sex: 1995 Female Med Rec #: [id number] Physician: Gabe GODWIN MD Financial #: [id number] Pt. Type: A Room/Bed: [facility] Admit/Disch: 12/22/22 06:48:48 - Institution: Case Times [...] Signatures Signed By: Tatianna Smith RN 12/22/22 08:59NoThe [facility] Hospital Monitor Recordon 02-40-2539Odlpuwd Record [id number]#1.00TIFFAvita Health System Bucyrus HospitalOutpatient Surgery Discharge Instructionon 92-64-4782Nkmlonqxzu Surgery Discharge Instruction [place] [id number] Patient Discharge Instructions PERSON INFORMATION Name: ADINA [...] PAIGE, have received the attached patient education materials/instructions and have verbalized understanding: May we do a follow up call? Yes No I was present when discharge instructions were given Patient Signature Date Clinican/Nurse Signature Date Follow up: With: Address: When: Gabe Cabral[address], [address], [place] [id number] [facility] (1) Within 7 to 10 days Pharmacy Information: You may receive a survey from [employer] asking you to rate your care experience. Your feedback is important and will help us understand what we do well and how we can improve the quality of care we provide to you, your loved ones and our community. It?s an honor to serve you. Thank you for choosing [facility] HERE ARE THE MEDICATION CHANGES THAT [...] day., PCOS PATIENT EDUCATION INFORMATION Instructions: Medication Leaflets:[facility] HospitalPatient Education - Texton 75-33-8077Dvmvydn Education - Text Dermatology Lipoma Removal, Care [...] and water are not available, use hand level designer. ? Change your dressing as told by your health care provider. ? Leave stitches (sutures), skin glue, or adhesive strips in place. These skin closures may need tostay in place for 2 weeks or longer. If adhesive strip edges start to loosen and curl up, you may trim the loose edges. Do not remove adhesive strips completely unless your health care provider tellsyou to do that. ? Check your incision area every day for signs of infection. Check for: ? More redness, swelling, or pain. ? Fluid or blood. ? Warmth. ? Pus or a bad smell. Medicines ? Take egqz-woc-qrwbeni and prescription medicines only as told by [...] provider. Document Revised: 03/18/2022 Document Reviewed: 03/18/2022 [employer] Patient Education ? 2022 [employer] Consent for Procedure/Surgeryon 11-93-6924Eaunwec for Procedure/Surgery [id number]#1.00CD:127NormalBluffton HospitalCBC w/Indiceson 08-07-8520Jyocbmkyfqd distribution width (RBC) [Ratio]13.1 %Iqubrt73.9-14.2FBellevue HospitalComment on above:Performed By: #### [id number] ####[address] [address]Gapgyqbxuv (Bld) [Volume fraction]35.8 %Stlnlt24.0-46.0[facility] HospitalComment on above:Performed By: #### [id number] ####[address] [address]Himjtiikrm (Bld) [Mass/Vol] 12.3 g/oDAbbqnu81.0-16.0[facility] HospitalComment on above:Performed By: #### [id number] ####[address] [address]VER (RBC) [Entitic mass]29.2 efWieioj06.0-34.0[facility] HospitalComment on above:Performed By: #### [id number] ####[place] [address] [place], [place] [address]PCUU (RBC) [Mass/Vol] 34.5 g/jUZuotzh44.4-36.0[facility] HospitalComment on above:Performed By: #### [id number] ####[address], [place] [address]PZO (RBC) [Entitic vol]84.7 lORreehr70.0-100.0[facility] HospitalComment on above:Performed By: #### [id number] ####[place] [address] [place], [place] [address]Kgiifpqe mean volume (Bld) [Entitic vol]8.7 fLNormal6.4-10.8[facility] HospitalComment on above:Performed By: #### [id number] ####[address] [address]Hxovwacjk (Bld) [#/Vol]273.0 E9/YIiwwbg390.0-500.0 [facility] HospitalComment on above:Performed By: #### [id number] ####[address] [address]GTA (Bld) [#/Vol]4.2 E12/LLow4.3-5.9[facility] HospitalComment on above: Performed By: #### [id number] ####[address] [address]JSY corrected for nucl RBC Auto (Bld) [#/Vol]5.6 E9/LNormal4.0-11.0Bluffton HospitalComment on above:Performed By: #### [id number] ####[address] [address]Djcphjw for Treatmenton 55-13-0684Hpvufoc for Treatment [id number]#1.00CD:127NormalBluffton HospitalU BetaHcg Qualon 14-90-8539BFR.beta subunit (U) [Moles/Vol]NegativeNormal Bluffton HospitalComment on above:Performed By: #### [id number] #### [facility] [address] [place] [address]Iompjvxhmt Visit Summaryon 98-19-5114Xbzilfjgce Visit Summary ADINA MARTINEZ :1995 Visit Date:12/09/2022 Ambulatory Visit Instructions Your Diagnosis Lipoma of abdominal wall Your Care Team Attending Physician - CITLALI VELASQUEZ, Gabe Parsons Primary Care Physician - BORIS HILLMAN, Linnea Herndon This Is Your Medications [...] Follow-Up Appointments Monday 2:30 PM EDT Where: [facility] 2022 9:00 AM EDT Where: [facility] Medications What How Much When Instructions Unchanged desogestrel-ethinyl estradiol (Apri oral tablet) 1 Tablets By Mouth Every day Contact prescribing physician if questions or concerns Unchanged fluoxetine (Prozac 10 mg Cap) 1 Capsules By Mouth Every day Contact prescribing physicianif questions or concerns Unchanged levothyroxine (levothyroxine 137 [...] abdominal pain Migraines Morbid obesity Periumbilical mass [facility] HospitalConsent for Procedure/Surgeryon 39-34-3810Brshgtu for Procedure/Surgery [id number]#1.00CD:[address] [place], [place] [address]Provider Letteron 49-02-5238Otmqxbqb Letter December 09, 2022 ADINA MARTINEZ [address] [place] [id number] : 1995 To Whom It May Concern, Please excuse above patient from work 12/22/2022-12/25/2022. May return to work without restrictions 12/26/2022. Sincerely, Dr. Gabe Godwin MD [facility] CenterED Note-Physicianon 20-74-0381KS Note-[id number]#1.00CD:[address] [place], [place] [address]Physician Referralon 26-14-4101Eplpekyrd Referral [id number]#1.00CD:[address] [place], [place] [address]RAD - CT Reporton 06-33-2727QKP - CT Report [id number]#1.00CD:[address] [place], [place] [address]CHEMISTRYOrdered By: SYSTEM SYSTEM on 83-85-4236Bxjk T4 [Mass/Vol]1.06 ng/dLNormal0.58 - 1.64 ng/dLGRIFFIN [facility]OR[facility] RemisolHCG.beta subunit QnmIU/mLNormal1 - 3 mIU/mLFT RemisolTSH Qn1.45 m[IU]/LNormal0.34 - 5.60 mcIU/mLFTMC Remisol CHEMISTRYOrdered By: Nirmala Kumar on 04-50-4166WdE0e (Bld) [Mass fraction]5.6 % Normal<=5.9%[facility] ChemAutoSSHEMATOLOGYOrdered By: SYSTEM SYSTEM on 10-13-2022 Basophils/100 WBC (Bld)0.2 %Normal0.0 - 2.0 %[facility] HemeAutoSSBasophils/Leukocytes Auto (Bld) [Pure # fraction]0.0 E9/LNormal0.0 - 0.2 E9/LFTMC HemeAutoSS Eosinophils/100 WBC (Bld)1.0 %Normal0.0 - 8.0 %[facility] HemeAutoSS Eosinophils/Leukocytes Auto (Bld) [Pure # fraction]0.1 E9/LNormal0.0 - 0.5 E9/L [facility] HemeAutoSSLymphocytes/100 WBC (Bld)25.2 %Ttmihn94.0 - 50.0 %[facility] HemeAutoSS Lymphocytes/Leukocytes Auto (Bld) [Pure # fraction]1.7 E9/LNormal1.0 - 4.0 E9/L [facility] HemeAutoSSMonocytes/100 WBC (Bld)5.7 %Normal4.0 - 14.0 %[facility] HemeAutoSS Monocytes/Leukocytes Auto (Bld) [Pure # fraction]0.4 E9/LNormal0.2 - 1.0 E9/L [facility] HemeAutoSSNeutrophils/100 WBC (Bld)67.9 %Hrrolu46.0 - 75.0 %[facility] HemeAutoSS Neutrophils/Leukocytes Auto (Bld) [Pure # fraction]4.6 E9/LNormal2.0 - 7.5 E9/L [facility] HemeAutoSSHEMATOLOGYOrdered By: Elaina Bradley on 41-06-4515Ihkdcczjbxt distribution width (RBC) [Ratio]15.0 %High10.9 - 14.2 %[facility] HemeAutoSSHematocrit (Bld) [Volume fraction]36.7 %Xgwkfc15.0 - 46.0 %[facility] HemeAutoSSHemoglobin (Bld) [Mass/Vol]12.0 g/xYHvfeos80.0 - 16.0 gm/dLFTMC HemeAutoSSMCH (RBC) [Entitic mass]28.4 qvRtiduk05.0 - 34.0 pgFTMC HemeAutoSSMCHC (RBC) [Mass/Vol]32.8 g/dL Kmdjxb69.4 - 36.0 gm/dLFTMC HemeAutoSSMCV (RBC) [Entitic vol]86.6 mXOvrgva68.0 - 100.0 fLFTMC HemeAutoSSPlatelet mean volume (Bld) [Entitic vol]8.7 fLNormal6.4 - 10.8 fLFTMC HemeAutoSSPlatelets (Bld) [#/Vol]307.0 E9/DGhgqgq923.0 - 500.0 E9/L [facility] HemeAutoSSRBC (Bld) [#/Vol]4.2 E12/LLow4.3 - 5.9 E12/LFTMC HemeAutoSSWBC corrected for nucl RBC Auto (Bld) [#/Vol]6.8 E9/LNormal4.0 - 11.0 E9/LFTMC HemeAutoSSCOVID/FLU RT-PCRon 78-93-1412VBXA-CoV-2 (COVID-19) RNA KAITLIN+probe Ql (Unsp spec)NegativeNoIluminage Beauty Other COVID/FLU RT-PCRNegativeNoPeak Rx #2 Other CHEMISTRYOrdered By: SYSTEM SYSTEM on 98-95-6973VGX Qn 0.09 m[IU]/LLow0.34 - 5.60 mcIU/mLFTMC RemisolCHEMISTRYOrdered By: SYSTEM SYSTEM on 78-45-7294Yqlcc gap [Moles/Vol]14 mmol/LNormal6 - 16 mEq/LFT[facility] Remisol Calcium [Mass/Vol]9.1 mg/dLNormal8.9 - 11.1 mg/dLFTMC RemisolChloride [Moles/Vol]104 mmol/BRyjlou699 - 111 mmol/LFTMC RemisolCO2 [Moles/Vol]23 mmol/L Csizyb69 - 31 mmol/LFT[facility] RemisolCreatinine [Mass/Vol]0.8 mg/dLNormal0.5 - 1.3 mg/dLFTMC RemisolGFR/1.73 sq M.predicted among blacks MDRD (S/P/Bld) [Vol rate/Area]mL/min/1.73 x3[place]>=59mL/min/1.73 m2[facility] Chem SGFR/1.73 sq M.predicted among non-blacks MDRD (S/P/Bld) [Vol rate/Area]mL/min/1.73 c6Pmcczk >=59mL/min/1.73 m2FT Chem SGlucose [Mass/Vol]102 mg/vYLsorgc39 - 199 mg/dLFTMC RemisolPotassium [Moles/Vol]3.6 mmol/LNormal3.5 - 5.3 mmol/LFT[facility] RemisolSodium [Moles/Vol]137 mmol/YXcddis232 - 145 mmol/LFTMC RemisolTSH Qn1.71 m[IU]/LNormal 0.34 - 5.60 mcIU/mLFTMC RemisolUrea nitrogen [Mass/Vol]15 mg/dLNormal5 - 21 mg/dLFTMC RemisolUrea nitrogen/Creatinine [Mass ratio]19 mg/yhDwokcy77 - 20[facility] RemisolHEMATOLOGYOrdered By: SYSTEM SYSTEM on 05-82-5859Uootrjatv/100 WBC (Bld) 0.3 %Normal0.0 - 2.0 %[facility] HemeAutoSSBasophils/Leukocytes Auto (Bld) [Pure # fraction]0.0 E9/LNormal0.0 - 0.2 E9/LFTMC HemeAutoSSEosinophils/100 WBC (Bld)1.0 %Normal0.0 - 8.0 %[facility] HemeAutoSSEosinophils/Leukocytes Auto (Bld) [Pure # fraction]0.1 E9/LNormal0.0 - 0.5 E9/LFTMC HemeAutoSSLymphocytes/100 WBC (Bld) 30.2 %Ykwdzd28.0 - 50.0 %[facility] HemeAutoSSLymphocytes/Leukocytes Auto (Bld) [Pure # fraction]2.7 E9/LNormal1.0 - 4.0 E9/LFT[facility] HemeAutoSSMonocytes/100 WBC (Bld)6.7 %Normal4.0 - 14.0 %[facility] HemeAutoSSMonocytes/Leukocytes Auto (Bld) [Pure # fraction]0.6 E9/LNormal0.2 - 1.0 E9/LFTMC HemeAutoSSNeutrophils/100 WBC (Bld) 61.8 %Aackmr22.0 - 75.0 %[facility] HemeAutoSSNeutrophils/Leukocytes Auto (Bld) [Pure # fraction]5.5 E9/LNormal2.0 - 7.5 E9/LFTMC HemeAutoSSHEMATOLOGYOrdered By: Pallavi Emerson on 27-72-4733Qrjybqwqmbj distribution width (RBC) [Ratio]15.0 % High10.9 - 14.2 %[facility] HemeAutoSSHematocrit (Bld) [Volume fraction]36.2 %Normal 34.0 - 46.0 %[facility] HemeAutoSSHemoglobin (Bld) [Mass/Vol]11.9 g/dLLow12.0 - 16.0 gm/dLFTMC HemeAutoSSMCH (RBC) [Entitic mass]27.6 pcRkzhgt09.0 - 34.0 pgFTMC HemeAutoSSMCHC (RBC) [Mass/Vol]32.9 g/rDNecqjs29.4 - 36.0 gm/dLFTMC HemeAutoSS MCV (RBC) [Entitic vol]83.9 oKCozoto90.0 - 100.0 fLFTMC HemeAutoSSPlatelet mean volume (Bld) [Entitic vol]8.8 fLNormal6.4 - 10.8 fLFTMC HemeAutoSSPlatelets (Bld) [#/Vol]286.0 E9/MZryttt856.0 - 500.0 E9/LFT[facility] HemeAutoSSRBC (Bld) [#/Vol] 4.3 E12/LNormal4.3 - 5.9 E12/LFT[facility] HemeAutoSSWBC corrected for nucl RBC Auto (Bld) [#/Vol]8.9 E9/LNormal4.0 - 11.0 E9/L[facility] HemeAutoSSCHEMISTRYOrdered By: SYSTEM SYSTEM on 73-27-8950Ibcvx gap [Moles/Vol]13 mmol/LNormal6 - 16 mEq/LFT[facility] RemisolCalcium [Mass/Vol]8.6 mg/dLLow8.9 - 11.1 mg/dLFTMC RemisolChloride [Moles/Vol]107 mmol/LHbxdyu774 - 111 mmol/LFT[facility] RemisolCO2 [Moles/Vol]22 mmol/L Hnqhrj83 - 31 mmol/LFT[facility] RemisolCreatinine [Mass/Vol]0.8 mg/dLNormal0.5 - 1.3 mg/dLFTMC RemisolGFR/1.73 sq M.predicted among blacks MDRD (S/P/Bld) [Vol rate/Area]mL/min/1.73 j4Powqcl>=59mL/min/1.73 m2[facility] Chem SGFR/1.73 sq M.predicted among non-blacks MDRD (S/P/Bld) [Vol rate/Area]mL/min/1.73 s0Fngolb >=59mL/min/1.73 m2[facility] Chem SGlucose [Mass/Vol]92 mg/yQVtarjk82 - 199 mg/dLFT[facility] RemisolPotassium [Moles/Vol]3.1 mmol/LLow3.5 - 5.3 mmol/LFT[facility] RemisolSodium [Moles/Vol]139 mmol/XJhugln358 - 145 mmol/LFTMC RemisolTroponin I.cardiac [Mass/Vol]pg/mLLow10.10 - 27.10 pg/mLFTMC RemisolUrea nitrogen [Mass/Vol]14 mg/dLNormal5 - 21 mg/dLFT[facility] RemisolUrea nitrogen/Creatinine [Mass ratio]18 mg/mg Yxwuxz19 - 20[facility] RemisolCOAGULATIONOrdered By: Mara Judge on 11-26-2021 aPTT Coag (PPP) [Time]31.6 fYytssz12.1 - 36.5 second(s)[facility] Auto CoagINR Coag (PPP) [Relative time]1.0 {INR}Invalid Interpretation CodeFTMC Auto CoagPT Coag (PPP) [Time]11.7 sNormal9.4 - 12.5 second(s)[facility] Auto CoagHEMATOLOGYOrdered By: SYSTEM SYSTEM on 24-18-4590Smfbcfbgo/100 WBC (Bld)0.2 %Normal0.0 - 2.0 %[facility] HemeAutoSSBasophils/Leukocytes Auto (Bld) [Pure # fraction]0.0 E9/LNormal0.0 - 0.2 E9/LFTMC HemeAutoSSEosinophils/100 WBC (Bld)0.7 %Normal0.0 - 8.0 %[facility] HemeAutoSSEosinophils/Leukocytes Auto (Bld) [Pure # fraction]0.0 E9/LNormal0.0 - 0.5 E9/LFT[facility] HemeAutoSSLymphocytes/100 WBC (Bld)33.1 %Fqlixb32.0 - 50.0 %[facility] HemeAutoSSLymphocytes/Leukocytes Auto (Bld) [Pure # fraction]2.4 E9/LNormal1.0 - 4.0 E9/LFT[facility] HemeAutoSSMonocytes/100 WBC (Bld)5.6 %Normal4.0 - 14.0 %[facility] HemeAutoSSMonocytes/Leukocytes Auto (Bld) [Pure # fraction]0.4 E9/LNormal0.2 - 1.0 E9/LFT[facility] HemeAutoSSNeutrophils/100 WBC (Bld)60.4 %Fjcurx68.0 - 75.0 %[facility] HemeAutoSSNeutrophils/Leukocytes Auto (Bld) [Pure # fraction]4.3 E9/LNormal2.0 - 7.5 E9/LFT[facility] HemeAutoSSHEMATOLOGYOrdered By: Pallavi Emerson on 11-26-2021 Erythrocyte distribution width (RBC) [Ratio]15.3 %High10.9 - 14.2 %[facility] HemeAutoSSHematocrit (Bld) [Volume fraction]33.4 %Low34.0 - 46.0 %[facility] HemeAutoSSHemoglobin (Bld) [Mass/Vol]11.1 g/dLLow12.0 - 16.0 gm/dLFTMC HemeAutoSSMCH (RBC) [Entitic mass]27.7 raDnvlld40.0 - 34.0 pgFTMC HemeAutoSSMCHC (RBC) [Mass/Vol]33.4 g/cEKjlbmg02.4 - 36.0 gm/dLFTMC HemeAutoSSMCV (RBC) [Entitic vol]82.9 kYKlbpir10.0 - 100.0 fLFTMC HemeAutoSSPlatelet mean volume (Bld) [Entitic vol]8.2 fLNormal6.4 - 10.8 fLFTMC HemeAutoSSPlatelets (Bld) [#/Vol]277.0 E9/KHmewqn002.0 - 500.0 E9/LFT[facility] HemeAutoSSRBC (Bld) [#/Vol]4.0 E12/LLow4.3 - 5.9 E12/L[facility] HemeAutoSSWBC corrected for nucl RBC Auto (Bld) [#/Vol]7.1 E9/LNormal4.0 - 11.0 E9/LFT[facility] HemeAutoSSSEROLOGYOrdered By: Mara Judge on 86-41-0028Paxu hCG QlNegative (11/26/21 6:17 PM)NormalFTMC Man SeroCHEMISTRYOrdered By: SYSTEM SYSTEM on 24-24-9081Wtlit gap [Moles/Vol]12 mmol/LNormal6 - 16 mEq/L[facility] RemisolCalcium [Mass/Vol]9.3 mg/dLNormal8.9 - 11.1 mg/dLFT[facility] RemisolChloride [Moles/Vol]107 mmol/ZUuavlw343 - 111 mmol/LFT[facility] RemisolCO2 [Moles/Vol]24 mmol/JLmmynk51 - 31 mmol/LFT[facility] RemisolCreatinine [Mass/Vol]0.8 mg/dLNormal0.5 - 1.3 mg/dLFT[facility] RemisolGFR/1.73 sq M.predicted among blacks MDRD (S/P/Bld) [Vol rate/Area] mL/min/1.73 e6Zqrezx>=59mL/min/1.73 m2[facility] Chem SGFR/1.73 sq M.predicted among non-blacks MDRD (S/P/Bld) [Vol rate/Area]mL/min/1.73 w2Vfoxqw>=59mL/min/1.73 m2 [facility] Chem SGlucose [Mass/Vol]95 mg/zKVxcgxb48 - 199 mg/dLFT[facility] RemisolPotassium [Moles/Vol]3.7 mmol/LNormal3.5 - 5.3 mmol/LFT[facility] RemisolSodium [Moles/Vol]139 mmol/AXhsrct577 - 145 mmol/LFT[facility] RemisolTroponin I.cardiac [Mass/Vol]pg/mLLow 10.10 - 27.10 pg/mLFTMC RemisolUrea nitrogen [Mass/Vol]16 mg/dLNormal5 - 21 mg/dLFT[facility] RemisolUrea nitrogen/Creatinine [Mass ratio]20 mg/llOqyluj24 - 20[facility] RemisolCOAGULATIONOrdered By: Arash Sullivan on 60-53-0021bFPN Coag (PPP) [Time]32.2 fNkosws96.1 - 36.5 second(s)[facility] Auto CoagINR Coag (PPP) [Relative time]1.0 {INR}Invalid Interpretation CodeFTMC Auto CoagPT Coag (PPP) [Time]11.6 sNormal9.4 - 12.5 second(s)[facility] Auto CoagHEMATOLOGYOrdered By: SYSTEM SYSTEM on 78-49-1915Rrurdfeqv/100 WBC (Bld)0.2 %Normal0.0 - 2.0 %[facility] HemeAutoSS Basophils/Leukocytes Auto (Bld) [Pure # fraction]0.0 E9/LNormal0.0 - 0.2 E9/L [facility] HemeAutoSSEosinophils/100 WBC (Bld)0.7 %Normal0.0 - 8.0 %[facility] HemeAutoSS Eosinophils/Leukocytes Auto (Bld) [Pure # fraction]0.0 E9/LNormal0.0 - 0.5 E9/L [facility] HemeAutoSSLymphocytes/100 WBC (Bld)27.7 %Rjjdkg83.0 - 50.0 %[facility] HemeAutoSS Lymphocytes/Leukocytes Auto (Bld) [Pure # fraction]1.6 E9/LNormal1.0 - 4.0 E9/L [facility] HemeAutoSSMonocytes/100 WBC (Bld)13.6 %Normal4.0 - 14.0 %[facility] HemeAutoSS Monocytes/Leukocytes Auto (Bld) [Pure # fraction]0.8 E9/LNormal0.2 - 1.0 E9/L [facility] HemeAutoSSNeutrophils/100 WBC (Bld)57.8 %Krzusz90.0 - 75.0 %[facility] HemeAutoSS Neutrophils/Leukocytes Auto (Bld) [Pure # fraction]3.4 E9/LNormal2.0 - 7.5 E9/L [facility] HemeAutoSSHEMATOLOGYOrdered By: Moraima Lancaster on 40-66-2337Bsorkmdedzx distribution width (RBC) [Ratio]15.7 %High10.9 - 14.2 %[facility] HemeAutoSSHematocrit (Bld) [Volume fraction]34.4 %Hzjigx77.0 - 46.0 %[facility] HemeAutoSSHemoglobin (Bld) [Mass/Vol]11.5 g/dLLow12.0 - 16.0 gm/dLGRIFFIN [facility]ORIAL [facility] HemeAutoSSMCH (RBC) [Entitic mass] 27.7 buRcjlbc38.0 - 34.0 [facility] HemeAutoSSMCHC (RBC) [Mass/Vol]33.6 g/dLNormal 31.4 - 36.0 gm/dLFT HemeAutoSSMCV (RBC) [Entitic vol]82.7 wODmaovw66.0 - 100.0 fLGRIFFIN MEMORIAL HOSPITAL – [facility] HemeAutoSSPlatelet mean volume (Bld) [Entitic vol]8.2 fLNormal6.4 - 10.8 fLGRIFFIN MEMORIAL HOSPITAL – [facility] HemeAutoSSPlatelets (Bld) [#/Vol]248.0 E9/SBvvzuq750.0 - 500.0 E9/LFTM HemeAutoSSRBC (Bld) [#/Vol]4.2 E12/LLow4.3 - 5.9 E12/LFOKLAHOMA SPINE HOSPITAL – [place] HemeAutoSSWBC corrected for nucl RBC Auto (Bld) [#/Vol]5.8 E9/LNormal4.0 - 11.0 E9/LFOKLAHOMA SPINE HOSPITAL – [place] TsjiKdfxBWQAYI-IpS-0 (COVID-19) RNA KAITLIN+probe Ql (Resp)on 28-40-5666GLII-CoV-2 (COVID-19) RNA KAITLIN+probe Ql (Unsp spec)PositiveNort nodishes.co.uk Other Basophils Auto (Bld) [#/Vol]Ordered By: Black Zaidi on 43-65-0113Vqyuklenh (Bld) [#/Vol]0.1 10*3/uL0.0-0.2FGuernsey Memorial HospitalBasophils/100 WBC Auto (Bld)Ordered By: Black Zaidi on 10-29-2021 Basophils/100 WBC (Bld)0.8 %.[facility] HospitalBlood hemoglobin measurement (mass/volume)Ordered By: Black Zaidi on 17-44-0348Mjxkjvxxhh (Bld) [Mass/Vol]11.7 g/dL11.8-15.4FGuernsey Memorial HospitalBlood leukocytes automated count (number/volume)Ordered By: Black Zaidi on 10-39-8537CUP (Bld) [#/Vol]6.7 10*3/uL4.5-11.0[facility] HospitalBody fluid albumin measurement (mass/volume)Ordered By: Black Zaidi on 48-08-2566Wrtnfvt (Body fld) [Mass/Vol]3.8 g/dL3.2-5.5FGuernsey Memorial HospitalCholesterol [Mass/volume] in Serum or PlasmaOrdered By: Black Zaidi on 49-07-5442Mikhpbwtefb [Mass/Vol]153 mg/bF744-262OgjeescpwGalion Community HospitalComment on above:Chol less than 200 mg/dl low risk Chol 201-239 mg/dl borderline risk Chol 240 mg/dl and greater high riskCholesterol in LDL Calc [Mass/Vol]Ordered By: Black Zaidi on 01-42-4588Xludgzksbfe in LDL [Mass/Vol]99 mg/dL0-100[facility] HospitalComment on above:LDL ATP III CLASSIFICATION LDL less than 100 mg/dL Optimal LDL 100-129 mg/dL Near or above optimal LDL 130-159 mg/dL Borderline high LDL 160-189 mg/dL High LDL greater than 189 mg/dL Very highCholesterol in VLDL Calc [Mass/Vol]Ordered By: Black Zaidi on 30-48-9365Xxyymcbiddx in VLDL [Mass/Vol]14 mg/dLGalion Community HospitalCreatinine and Glomerular filtration rate.predicted panel (S/P/Bld)Ordered By: Black Zaidi on 87-68-6930Vpyfehfgga [Mass/Vol]0.78 mg/dL 0.44-1.03[facility] HospitalEosinophils Auto (Bld) [#/Vol]Ordered By: Black Zaidi on 18-94-1102Dabblfbditj (Bld) [#/Vol]0.1 10*3/uL0.0-0.45 [facility] HospitalEosinophils/100 WBC Auto (Bld)Ordered By: Black Zaidi on 14-74-6364Kosgjhwbwtc/100 WBC (Bld)1.8 %.[facility] HospitalErythrocyte distribution width Auto (RBC) [Ratio]Ordered By: Black Zaidi on 85-32-5700Buyrwhdorph distribution width (RBC) [Ratio]15.9 %11.9-15.3FGuernsey Memorial HospitalEstimated glomerular filtration rate (GFR) non- AmericanOrdered By: Black Zaidi on 93-50-0029YZY/1.73 sq M.predicted among non- blacks MDRD (S/P/Bld) [Vol rate/Area]> 60 mL/MinGalion Community HospitalGlobulin Calc (S) [Mass/Vol]Ordered By: Black Zaidi on 66-34-2039Sssnhcxl (S) [Mass/Vol]2.7 g/dLGalion Community HospitalHematocrit Auto (Bld) [Volume fraction]Ordered By: Black Zaidi on 66-34-3137Wfzbsildey (Bld) [Volume fraction]35.9 %34.0-46.4FGuernsey Memorial HospitalLaboratory - Chemistry and Chemistry - challengeOrdered By: Black Zaidi on 53-76-0908Bukvshm [Mass/Vol] 92 mg/qB53-061MqceptfhqGalion Community HospitalLaboratory - Hematology and Cell countsOrdered By: Black Zaidi on 59-20-4991Iwvsriygn RBC/100 WBC (Bld) [Ratio]0.1 %0-0.5FGuernsey Memorial HospitalLymphocytes Auto (Bld) [#/Vol]Ordered By: Black Zaidi on 21-53-5301Malfprmonel (Bld) [#/Vol]2.1 10*3/uL1.00-4.8 [facility] HospitalLymphocytes/100 WBC Auto (Bld)Ordered By: Black Zaidi on 85-03-6644Qotuwxlujkt/100 WBC (Bld)31.6 %.[facility] Auto (RBC) [Entitic mass]Ordered By: Black Zaidi on 93-67-6888KFW (RBC) [Entitic mass]27.4 pg24.7-34.3FGuernsey Memorial HospitalMCHC Auto (RBC) [Mass/Vol]Ordered By: Black Zaidi on 48-93-5244WUPV (RBC) [Mass/Vol]32.5 g/dL 32.0-35.0[facility] HospitalMCV Auto (RBC) [Entitic vol]Ordered By: Black Zaidi on 88-60-9608PSI (RBC) [Entitic vol]84.3 cF81-180SddkrcnxkGalion Community HospitalMonocyte %Ordered By: Black Zaidi on 13-75-2506Thxzdppc % 72 mg/jC70-350BopdqtdtaGalion Community HospitalComment on above:TRIG ATP III CLASSIFICATION TRIG less than 150 mg/dL Normal TRIG 150-199 mg/dL Borderline high TRIG 200-500 mg/dL High TRIG greater than 500 mg/dL Very high Standard traceable to the Center for Disease Conrtrol and Prevention (CDC) test method.Monocytes Auto (Bld) [#/Vol]Ordered By: Black Zaidi on 01-08-4997Nnastmwqc (Bld) [#/Vol]0.4 10*3/uL0.0-0.8[facility] HospitalMonocytes/100 WBC Auto (Bld)Ordered By: Black Zaidi on 84-39-5802Gfevozwpc/100 WBC (Bld)6.4 %. [facility] HospitalNeutrophils Auto (Bld) [#/Vol]Ordered By: Black Zaidi on 35-50-1400Ubsoikhhrtu (Bld) [#/Vol]4.0 10*3/uL1.8-7.7FGuernsey Memorial HospitalNeutrophils/100 WBC Auto (Bld)Ordered By: Black Zaidi on 12-63-9928Xyfbcmzonun/100 WBC (Bld)59.4 %.[facility] HospitalNo Panel InformationOrdered By: Black Zaidi on 91-63-5983Zpwomjonb GFR ()> 60 mL/MinGalion Community HospitalComment on above:GFR estimated reference range: According to KDOQI guidelines, <60 ml/min/1.73m2 is sufficient todiagnose a patient with chronic kidney disease.Nicotine Metabolite NegativeCutoff=25Galion Community HospitalComment on above:Performed at: - [facility] [id number] Director Of Nursing: Chucky Marie MD, Phone: [phone] Creatinine Clearance (ChemN/[facility] HospitalPlatelet mean volume Auto (Bld) [Entitic vol]Ordered By: Black Zaidi on 20-41-7635Zbzowfsj mean volume (Bld) [Entitic vol]8.9 fL6.3-10.7FGuernsey Memorial HospitalPlatelets Auto (Bld) [#/Vol]Ordered By: Black Zaidi on 85-36-2027Kgzeuahes (Bld) [#/Vol]320 10*3/uL 150-450[facility] HospitalProtein [Mass/volume] in Serum or Plasma Ordered By: Black Zaidi on 47-22-1183Rnoocws [Mass/Vol]6.5 g/dL6.1-7.9[facility] HospitalRBC Auto (Bld) [#/Vol]Ordered By: Black Zaidi on 48-21-1587KIX (Bld) [#/Vol]4.26 10*6/uL3.60-5.00[facility] - Cantonerum or plasma alanine aminotransferase measurement without P-5'-P (enzymatic activiOrdered By: Black Zaidi on 46-14-1831YXE No additional P-5'-P [Catalytic activity/Vol]20 U/K10-85UxfhqkmwfSelect Medical Specialty Hospital - Cantonerum or plasma albumin/globulin mass ratioOrdered By: Black Zaidi on 10-29-2021 Albumin/Globulin [Mass ratio]1.4 {ratio}[facility] - Cantonerum or plasma alkaline phosphatase measurement (enzymatic activity/volume)Ordered By: Black Zaidi on 91-72-7088AAP [Catalytic activity/Vol]64 U/E19-31XjcxlqsmuSelect Medical Specialty Hospital - Cantonerum or plasma aspartate aminotransferase measurement (enzymatic activity/volume)Ordered By: Black Zaidi on 77-34-5909GBG [Catalytic activity/Vol]20 U/P15-96LcaggbwhiSelect Medical Specialty Hospital - Cantonerum or plasma calcium measurement (mass/volume)Ordered By: Black Zaidi on 54-45-4437Aqxsvgm [Mass/Vol] 9.4 mg/dL8.2-10.2FMemorial Hospitalerum or plasma chloride measurement (moles/volume)Ordered By: Black Zaidi on 79-37-6017Dgjbbggu [Moles/Vol]104 mmol/X57-537AveptycapSelect Medical Specialty Hospital - Cantonerum or plasma high density lipoprotein (HDL) cholesterol measurementOrdered By: Black Zaidi on 27-09-3560Bingnuourbj in HDL [Mass/Vol]40 mg/rT17-25EkzaxcbhuGalion Community HospitalComment on above:HDL CHOL ATP-III CLASSIFICATION Cardiovascular Risk HDL > or equal to 60 mg/dL LOW HDL < 40 mg/dL HIGHSerum or plasma potassium measurement (moles/volume)Ordered By: Black Zaidi on 50-92-7984Cqvvlwvmg [Moles/Vol]4.2 mmol/L3.5-5.1FMemorial Hospitalerum or plasma sodium measurement (moles/volume)Ordered By: Black Zaidi on 44-10-7486Kcpsby [Moles/Vol]137 mmol/H783-215KlxdabnqfSelect Medical Specialty Hospital - Cantonerum or plasma total bilirubin measurement (mass/volume) Ordered By: Black Zaidi on 61-81-5098Bdtnabmcx [Mass/Vol]0.3 mg/dL0.3-1.2 [facility] - Cantonerum or plasma total carbon dioxide measurement (moles/volume)Ordered By: Black Zaidi on 71-49-3711UN3 [Moles/Vol] 22.5 mmol/L22.0-30.0[facility] - Cantonerum or plasma total cholesterol/high density lipoprotein (HDL) cholesterol mass ratOrdered By: Black Zaidi on 99-84-1867Xwhadmtbwyd.total/Cholesterol in HDL [Mass ratio]3.8 {ratio} <5.0[facility] - Cantonerum or plasma urea nitrogen measurement (mass/volume)Ordered By: Black Zaidi on 07-83-6534Fjvc nitrogen [Mass/Vol]10 mg/dL9-Galion Community HospitalTS DL <= 0.005 mIU/L QnOrdered By: Black Zaidi on 88-12-5150EIV Qn6.15 m[IU]/L0.45-5.33Galion Community HospitalFree T4on 11-58-4322Csbp T4 [Mass/Vol]0.95 ng/dLNormal0.80-1.80[facility] SpecialistComment on above:Performed By: #### FT4, TSH reflex FT4 #### [facility] [address], [place] [id number] w/ Reflex to Free T4on 70-18-4252AL9 reflexFree B7Rdtykw [facility] SpecialistComment on above:Performed By: #### FT4, TSH reflex FT4 #### [facility] [address], [place] [id number] uIU/mLHigh0.400-4.500NortChillicothe VA [facility] Center SpecialistComment on above:Performed By: #### FT4, TSH reflex FT4 #### [facility] [address], [place] [id number] PELVIS AND TRANSVAGon 84-05-4163RM PELVIS AND TRANSVAG EXAMINATION: US PELVIS AND [...] Electronically authenticated by: RICK OVIEDO Date: 2020-11-12 13:48[facility] Vital Signs Date TimeVital SignValuePerforming WfkuuwpnfJsvzequu60-52-4297 11:28040Body .7 [facility] Diya DO Work Phone: [facility] HospitalIpkmzivdsh69-25-0638 11:28-0400Body mass index (BMI) [Ratio]42.57 kg/x8Avpiu Dyia DO Work Phone: [facility] HospitalDaodbgmisk25-53-4210 11:28-0400Body nakene268.01 kgCoreraphael Bañueloso DO Work Phone: [facility] HospitalLxytpehfyt79-66-8356 11:28-0400Diastolic blood bunpkacb54 mm[Hg]Db Bañueloso DO Work Phone: [phone] Memorial Health SystemsQlhztzyjzv76-04-2919 11:28-0400Systolic blood mm[Hg]Db Keane DO Work Phone: [facility] HospitalRmivhryvsn40-99-4612 08:05-0400Body uzvmne142.7 cmLinnea Hackett PA Work Phone: [facility] HospitalRnjddegxhh87-31-3911 08:05-0400Body mass index (BMI) [Ratio]42.97 kg/l0VftzmhpLinnea Hackett PA Work Phone: [facility] HospitalXebqevhmhv43-88-7168 08:05-0400Body temperature 98.4 [degF]Linnea Hackett PA Work Phone: [facility] HospitalMatdzbrjob48-62-5044 08:05-0400Body exnpfn002.19 kgLinnea Hackett PA Work Phone: [facility] HospitalDlgfssclge70-68-8633 08:05-0400Diastolic blood oijghejr37 mm[Hg]Linnea Hackett PA Work Phone: [facility] HospitalJuosbeirun84-02-0439 08:05-0400Heart rate71 /min Linnea Hackett PA Work Phone: [phone] HospitalIldqvauyxm08-97-7491 08:05-7523KpQ8% (BldA) [Mass fraction]98 %Linnea Hackett PA Work Phone: [phone] HospitalEtdenabivi16-61-1118 08:05-0400Systolic blood wvryhnjg867 mm[Hg]Linnea Hackett PA Work Phone: [facility] HospitalLaghutyelp72-49-7382 13:03-0400Body mass index (BMI) [Ratio]43.33 kg/p3OvskvslxSusie Rodriges ARSON INVESTIGATOR Work Phone: [facility] HospitalXgxuvsirhr85-72-3023 13:03-0400Body rjedgk248.28 kgSusie Rodriges ARSON INVESTIGATOR Work Phone: [facility] HospitalZrrwyxdfkk07-84-4975 13:03-0400Diastolic blood wcnavatt25 mm[Hg]Susie Rodriges ARSON INVESTIGATOR Work Phone: [facility] HospitalVtnaijkity60-40-8879 13:03-0400Systolic blood qajcksxd607 mm[Hg]Susie Rodriges ARSON INVESTIGATOR Work Phone: [facility] HospitalDyeabmaswo58-60-8970 12:20-0400Body wttvby153.7 cmLinnea Hackett PA Work Phone: [facility] HospitalDdwusfpqgi08-36-3086 12:20-0400Body mass index (BMI) [Ratio]43.09 kg/k2GjudjboLinnea Hackett PA Work Phone: [facility] HospitalItboocegul87-82-6573 12:20-0400Body temperature 98.1 [degF]Linnea Hackett PA Work Phone: [facility] HospitalKmrfobkyew13-80-4979 12:20-0400Body zbsomh561.55 kgLinnea Hackett PA Work Phone: [facility] HospitalAkixemsbfl83-79-8343 12:20-0400Diastolic blood qlzjvion70 mm[Hg]Linnea Hackett PA Work Phone: [facility] HospitalDgehtygsiq15-86-6463 12:20-0400Heart rate66 /min Linnea Hackett PA Work Phone: [place] [address]Olzwrfajfl08-44-6307 12:20-5371TrB8% (BldA) [Mass fraction]99 %Linnea Hackett PA Work Phone: [facility] HospitalLubzcuylhc47-61-5819 12:20-0400Systolic blood mm[Hg]Linnea Hackett PA Work Phone: [facility] HospitalTwciksjojv93-86-4448 15:19-0400Body mass index (BMI) [Ratio]43.14 kg/p2Ffuxp Fazio DO Work Phone: [facility] HospitalRtixvmusjq55-31-6101 15:19-0400Body znybft594.71 kgCoreraphael Bañueloso DO Work Phone: [facility] HospitalMjjrbkdolx41-28-6091 15:19-0400Diastolic blood mm[Hg]Db Keane DO Work Phone: [place] [address]Neawtyjouh25-87-0372 15:19-0400Systolic blood mdrgkrit121 mm[Hg]Db Keane DO Work Phone: [facility] HospitalZwjlvlgdej30-40-1390 12:05-0400Body .7 cmLinnea Hackett PA Work Phone: [facility] HospitalFpfovnvutk15-29-7664 12:05-0400Body mass index (BMI) [Ratio]42.42 kg/k8BknodwzLinnea Hackett PA Work Phone: [facility] HospitalIztlzgzkos09-47-7574 12:05-0400Body temperature 97.7 [degF]Linnea Hackett PA Work Phone: [facility] HospitalXcjrpaqlfv57-74-7903 12:05-0400Body hebbeb190.55 kgLinnea Hackett PA Work Phone: [facility] HospitalVemdzcqkgf17-08-6072 12:05-0400Diastolic blood ridxoiju41 mm[Hg]Linnea Hackett PA Work Phone: [facility] HospitalIvxjtbofwo48-48-8440 12:05-0400Heart rate84 /min Linnea Hackett PA Work Phone: [facility] HospitalWxpdepqiix03-33-6465 12:05-7539BwF8% (BldA) [Mass fraction]99 %Linnea Hackett PA Work Phone: [facility] HospitalPhrshdmzso54-05-4895 12:05-0400Systolic blood jmgzifgg237 mm[Hg]Linnea Hackett PA Work Phone: [facility] HospitalAswandyvjz59-02-3100 08:51-0400Body .7 cmQuique Vazquez MD Work Phone: [facility]07-03-2025 08:51-0400 Body mass index (BMI) [Ratio]42.12 kg/t8RlfyclQuique Vazquez MD Work Phone: 1(398)[address]07-03-2025 08:51-0400 Body kcyamn695.65 kgQuique Vazquez MD Work Phone: 1(075)725-[address] [place], [place] 9222707-03-2025 08:51-0400 Diastolic blood cpjyaycw67 mm[Hg]Quique Vazquez MD Work Phone: 1(232)[address]07-03-2025 08:51-0400 Heart rate72 /minQuique Vazquez MD Work Phone: 1(665)[address]07-03-2025 08:51-0400 Systolic blood xmubetts361 mm[Hg]Quique Vazquez MD Work Phone: [facility]06-19-2025 12:05-0400 Diastolic blood mm[Hg]Gene Parson MD Work Phone: cPro[facility] HospitalCuhbgs26-10-2854 12:05-0400Heart rate77 /min Gene Parson MD Work Phone: [facility] HospitalWzchpi88-12-5472 12:05-0400Respiratory rate 16 /minEjacob Parson MD Work Phone: c[facility] HospitalMjsyjg26-32-8591 12:05-0423CmJ8% (BldA) [Mass fraction]99 %Gene Parson MD Work Phone: cPro[facility] HospitalKtaovq92-28-2638 12:05-0400Systolic blood pfxgcryc884 mm[Hg]Gene Parson MD Work Phone: cPro[facility] HospitalXhaged63-07-6035 11:00-0400Body ypdbcl515.7 Roxie Parson MD Work Phone: cPro[facility] HospitalNsknml05-42-6322 11:00-0400Body mass index (BMI) [Ratio]41.66 kg/d5XsektdGene Parson MD Work Phone: [facility] hospitaland Wwascp72-05-5414 11:00-0400Body szxuln470.29 kgGene Parson MD Work Phone: [place] Slqgxk14-42-2561 10:49-5371NlM7% (BldA) [Mass fraction]99 %Linnea Hackett PA-C Work Phone: [facility]04-30-2025 07:44-0400 Body majool879.[address]04-30-2025 07:44-0400 Body mass index (BMI) [Ratio]43.49 kg/m2Ely [address] [place] [address] 07-10-2024 07:44-0400Body .[address] 07-10-2024 07:44-0400Diastolic blood iouolbea99 mm[Hg][address]04-30-2025 07:44-0400Systolic blood syxdflma485 mm[Hg][address]04-28-2025 10:54-0400Body .7 cmLinnea WEBSTER Work Phone: [facility] HospitalQxgnqsrnzm01-47-2516 10:54-0400Body mass index (BMI) [Ratio]41.54 kg/y2XiozqovLinnea WEBSTER Work Phone: [facility] HospitalKysqnjcuhw31-07-0523 10:54-0400Body temperature 98.01 [degF]Linnea WEBSTER Work Phone: [facility] HospitalXertsoppxj97-26-9137 10:54-0400Body ytebsz756.92 kgLinnea WEBSTER Work Phone: [facility] HospitalIzjmchpbfk18-25-4475 10:54-0400Diastolic blood xouphrou92 mm[Hg]Linnea WEBSTER Work Phone: [facility] HospitalCwcnvliigs17-86-1982 10:54-0400Heart rate83 /min Linnea WEBSTER Work Phone: [facility] HospitalHcueffrclv91-44-0947 10:54-4956MhP0% (BldA) [Mass fraction]98 %Linnea WEBSTER Work Phone: [facility] HospitalRvagtzzlmj81-94-7823 10:54-0400Systolic blood ntczydhh084 mm[Hg]Linnea WEBSTER Work Phone: [facility] HospitalXjnotmzpnq99-32-6793 09:42-0500Diastolic blood tgbzjhzo00 mm[Hg]Quique Vazquez MD Work Phone: 1(207)331-[address] [place], [place] 9222702-26-2025 09:42-0500 Systolic blood okjjffaf770 mm[Hg]Quique Vazquez MD Work Phone: 1(265)[address]02-26-2025 09:36-0500 Body wbyaoz253.7 cmQuique Vazquez MD Work Phone: 1(089)[address] [place], [place] 9222702-26-2025 09:36-0500 Body mass index (BMI) [Ratio]43.49 kg/c1AqfekzQuique Vazquez MD Work Phone: 1(664)[address] [place], [place] 9222702-26-2025 09:36-0500 Body fginis642.73 kgQuique Vazquez MD Work Phone: 1(423)208-[address] [place], [place] 9222702-26-2025 09:36-0500 Heart rate79 /minQuique Vazquez MD Work Phone: 1(116)776-[address] [place], [place] 9222702-04-2025 09:59-0500 Body msiatp456.7 cmLinnea Hackett PA Work Phone: [facility] HospitalQzztatbsiu73-54-6220 09:59-0500Body mass index (BMI) [Ratio]43.12 kg/y0FuiisjuLinnea WEBSTER Work Phone: [facility] HospitalLcnxyxrmgp66-45-0827 09:59-0500Body temperature 98.4 [degF]Linnea WEBSTER Work Phone: [facility] HospitalNiicqvsolo28-67-0064 09:59-0500Body tjufoj618.64 kgValentinazahraa Boris PA Work Phone: [facility] HospitalWcsiiryton58-59-2411 09:59-0500Diastolic blood voxukjkm68 mm[Hg]Linnea Hackett PA Work Phone: [facility] HospitalCviognddku61-18-6916 09:59-0500Heart rate80 /min Linnea Hackett PA Work Phone: [facility] HospitalFzhjqilnff93-68-3089 09:59-2412WmS1% (BldA) [Mass fraction]99 %Linnea Hackett PA Work Phone: [facility] HospitalYxhyrwhlcr52-42-6532 09:59-0500Systolic blood svzcflvo431 mm[Hg]Linnea Hackett PA Work Phone: 1(372)223-[address] [place], [place] [address]Brrohyjklu19-20-2356 08:17-0500Body dgluow535.7 cmValentinazahraa Boris PA Work Phone: [place] [address]Lurhifmlou89-21-3649 08:17-0500Body mass index (BMI) [Ratio]42.06 kg/u9Tgtekrm Boris PA Work Phone: [facility] HospitalPabjskmrsd63-93-7482 08:17-0500Body temperature 97.7 [degF]Linnea Hackett PA Work Phone: [facility] HospitalByoqfufkdh22-47-6199 08:17-0500Body ajooex182.47 kgValentinazahraa Boris PA Work Phone: 1(738)961-[address] [place], [place] [address]Uoxpetbrih14-91-2978 08:17-0500Diastolic blood mmxnvxpe72 mm[Hg]Linnea Hackett PA Work Phone: [place] [address]Rxgpkobvbq60-66-8391 08:17-0500Heart rate78 /min Linnea Hackett PA Work Phone: [place] [address]Bjhkulvipv76-29-0833 08:17-3752ThA6% (BldA) [Mass fraction]98 %Linnea Hackett PA Work Phone: [facility] HospitalKpzenunarf93-37-7386 08:17-0500Systolic blood tchxalot447 mm[Hg]Linnea Hackett PA Work Phone: [facility] HospitalBbycvxojiu09-79-6555 11:17-0400Body vzcsca156.7 cmValentinazahraa Boris PA Work Phone: [facility] HospitalXgqeqidhar47-65-5376 11:17-0400Body mass index (BMI) [Ratio]42.45 kg/f4Qdxxhez Boris PA Work Phone: [phone] HospitalBuamflwkmm28-90-7470 11:17-0400Body temperature 98.6 [degF]Linnea Hackett PA Work Phone: [phone] HospitalLpjbmthoco22-62-8201 11:17-0400Body .64 kgValentinazahraa Boris PA Work Phone: [facility] HospitalMuvrwogqbx15-54-9164 11:17-0400Diastolic blood arbemmsx66 mm[Hg]Linnea Hackett PA Work Phone: [facility] HospitalCwmyfmvsxl46-02-0245 11:17-0400Heart rate87 /min Linnea Hackett PA Work Phone: [facility] HospitalUyjduznjff83-21-0120 11:17-5221IyI4% (BldA) [Mass fraction]97 %Linnea Hackett PA Work Phone: [facility] HospitalAacumtqapu93-57-7286 11:17-0400Systolic blood uztnxrxb424 mm[Hg]Linnea Hackett PA Work Phone: 1([phone] HospitalIrpklevhfx36-53-3432 18:32-0400Hourly Rounding Cliff Gusman [facility]09-25-2024 18:31-0400 Diastolic blood xfwrqsfu50 mm[Hg]Cliff Gusman [facility]09-25-2024 18:31-0400Heart rate75 /minCliff Gusman [address]09-25-2024 18:31-0400Mean blood mm[Hg]Cliff Gusman [address] [place], [place] 3361309-25-2024 18:31-0400 Respiratory rate22 /minCliff Gusman [address] [place], [place] 3361309-25-2024 18:31-0506VjF8% (BldA) [Mass fraction]99 %Cliff Gusman [address] [place], [place] 3361309-25-2024 18:31-0400 Systolic blood wqqsgpym061 mm[Hg]Cliff Gusman [address] [place], [place] 3361309-25-2024 17:45-0400 Diastolic blood nuwoyrgb96 mm[Hg]Cliff Gusman [address] [place], [place] 3361309-25-2024 17:45-0400Heart rate83 /minCliff Gusman [address] [place], [place] 3361309-25-2024 17:45-0400 Hourly RoundingCliff Gusman [address] [place], [place] 3361309-25-2024 17:45-0400Mean blood egdefawr72 mm[Hg]Cliff Gusman [address]09-25-2024 17:45-0400 Respiratory rate18 /minCliff Gusman [address] [place], [place] 3361309-25-2024 17:45-1741DvZ1% (BldA) [Mass fraction]99 %Cliff Gusman [address] [place], [place] 3361309-25-2024 17:45-0400 Systolic blood olaxpbhb966 mm[Hg]Cliff Gusman [address] [place], [place] 3361309-25-2024 16:45-0400 Diastolic blood ahqywpae16 mm[Hg]Cliff Gusman [address]09-25-2024 16:45-0400Heart rate93 /minCliff Gusman [address]09-25-2024 16:45-0400 Hourly RoundingJoshmaida Gusman [address] [place], [place] 0486409-25-2024 16:45-0400Mean blood spvulicd432 mm[Hg]Cliff Gusman [address]09-25-2024 16:45-0400 Promise to ReturnCliff Gusman [address] [place], [place] 0486409-25-2024 16:45-0400 Respiratory rate16 /minCliff Gusman [address] [place], [place] 3361309-25-2024 16:45-4812CfI0% (BldA) [Mass fraction]99 %Cliff Gusman [address]09-25-2024 16:45-0400 Systolic blood ijnkllcc392 mm[Hg]Cliff Gusman [address]09-25-2024 16:43-0400 Respiratory rate20 /minCliff Gusman [address] [place], [place] 0486409-25-2024 16:34-0400 Respiratory rate20 /minCliff Gusman [address] [place], [place] 0486409-25-2024 15:46-0400Body iyanyysvzne19.88 [degF]Cliff Gusman [address] [place], [place] 0486409-25-2024 15:46-0400Heart rate90 /minCliff Gusman [address] [place], [place] 0486409-25-2024 15:46-0400 Respiratory rate22 /minCliff Gusman [address] [place], [place] 3361308-02-2024 08:26-0400Heart gvnw179 /minJohn Jhony [address] [place], [place] 0486408-02-2024 08:26-0400 Respiratory rate18 /minSantos Booker [address] [place], [place] 0486408-02-2024 07:43-0400Body ebhpuvgdoti47.24 [degF]Santos Booker [address] [place], [place] 0486408-02-2024 07:43-0400 Diastolic blood vfixzvuk89 mm[Hg]Santos Booker [address] [place], [place] 0486408-02-2024 07:43-0400Heart efet981 /minSantos Booker [address] [place], [place] 0486408-02-2024 07:43-0400 Respiratory rate18 /minSantos Booker [address] [place], [place] 0486408-02-2024 07:43-9335HqD6% (BldA) [Mass fraction]97 %Santos Booker [address] [place], [place] 0486408-02-2024 07:43-0400 Systolic blood oqrqbatj849 mm[Hg]Santos Booker [address] [place], [place] 0486406-24-2024 07:58-0400Blood Pressure LocationMohamed Ad [facility]06-24-2024 07:58-0400 Diastolic blood ajscxmss45 mm[Hg]Magdi Ad [facility]06-24-2024 07:58-0400Heart rate96 /minMohamed Ad [facility]06-24-2024 07:58-0400 Respiratory rate16 /minMohamed Ad [facility]06-24-2024 07:58-5617IkK5% (BldA) [Mass fraction]99 %Mohamed Ad [facility]06-24-2024 07:58-0400 Systolic blood yaxxncwk982 mm[Hg]Magdi Duong [facility]03-15-2024 01:32-0400 Hourly RoundingKaylinn Dokken [address] [place], [place] 0486403-15-2024 01:32-0400 Promise to ReturnKaylinn Dokken [address] [place], [place] 0486403-15-2024 01:00-0400 Diastolic blood ctenbzmk23 mm[Hg]Kaylinn Dokken [address] [place], [place] 0486403-15-2024 01:00-0400Heart rate71 /minKaylinn Dokken [address] [place], [place] 0486403-15-2024 01:00-0400 Respiratory rate18 /minKaylinn Dokken [address] [place], [place] 0486403-15-2024 01:00-4982ReF9% (BldA) [Mass fraction]98 %Kaylinn Dokken [address] [place], [place] 0486403-15-2024 01:00-0400 Systolic blood sjyyufbq414 mm[Hg]Kaylinn Dokken [address] [place], [place] 0486403-15-2024 00:00-0400Heart rate76 /minKaylinn Dokken [address] [place], [place] 0486403-15-2024 00:00-0400 Hourly RoundingKaylinn Dokken [address] [place], [place] 0486403-15-2024 00:00-0400 Promise to ReturnKaylinn Dokken [address] [place], [place] 0486403-15-2024 00:00-0400 Systolic blood ipacwzvc084 mm[Hg]Tarynn Luanaen [address] [place], [place] 3361303-14-2024 23:44-0400 Diastolic blood fhoostqw18 mm[Hg]Janellinn Dorisaen [address] [place], [place] 3361303-14-2024 23:44-0400Heart rate86 /minTarynn Dorisaen [address] [place], [place] 3361303-14-2024 23:44-0400Mean blood xbmrrhid811 mm[Hg]Tarynn Aleah [address] [place], [place] 3361303-14-2024 23:44-0400 Respiratory rate20 /minSandraylinn Dokken [address] [place], [place] 3361303-14-2024 23:44-5913HiB9% (BldA) [Mass fraction]99 %Tarynn Aleah [address] [place], [place] 3361303-14-2024 23:44-0400 Systolic blood odzijmim791 mm[Hg]Tarynn Luanaen [address] [place], [place] 3361303-14-2024 22:41-0400Body ugfvxejqdjk19.06 [degF]Tarynn Aleah [address] [place], [place] 0486403-14-2024 22:41-0400Heart rate99 /Quintininn Dorisaen [address] [place], [place] 0486401-25-2024 15:56-0500 Diastolic blood omytsalp33 mm[Hg]PA-C Linnea Hackett Work Phone: [facility]01-25-2024 15:56-0500 Heart rate91 /minPA-C Linnea Hackett Work Phone: [facility]01-25-2024 15:56-0500 Respiratory rate16 /minPA-C Linnea Hackett Work Phone: 1(121)[address]01-25-2024 15:56-0500 SaO2% (BldA) [Mass fraction]96 %PA-C Linnea Hackett Work Phone: 1(023)[address]01-25-2024 15:56-0500 Systolic blood sgiwuexp711 mm[Hg]PA-C Linnea Hackett Work Phone: 1(867)[address] [place], [place] 2173701-25-2024 15:06-0500 Body skusvcfjknk21 [degF]PA-C Linnea Hackett Work Phone: 1(736)[address] [place], [place] 2173701-25-2024 14:31-0500 Inhaled oxygen flow rate10 L/minDARIN-C Linnea Hackett Work Phone: 1(796)[address] [place], [place] 2173701-25-2024 12:40-0500 Body .72 cmPA-C Linnea Hackett Work Phone: 1(611)[address] [place], [place] 2173701-25-2024 12:40-0500 Body mass index (BMI) [Ratio]41.2 kg/m2PA-C Linnea Hackett Work Phone: 1(795)[address] [place], [place] 2173701-25-2024 12:40-0500 Body kgPA-C Linnea Hackett Work Phone: 1(842)[address] [place], [place] 2173712-05-2023 06:30-0500 Diastolic blood onqqiina18 mm[Hg]Héctor Meghan [facility]12-05-2023 06:30-0500Heart rate69 /minNoah Meghan [facility]12-05-2023 06:30-0500Mean blood gtloiffr77 mm[Hg]Héctor Meghan [facility]12-05-2023 06:30-2150FwS1% (BldA) [Mass fraction]98 %Héctor Meghan [address] [place], [place] 3361312-05-2023 06:30-0500 Systolic blood pnmysnee849 mm[Hg]Héctor Meghan [address] [place], [place] 3361312-05-2023 06:00-0500 Diastolic blood lzsidqqh65 mm[Hg]Héctor Emghan [address] [place], [place] 3361312-05-2023 06:00-0500Heart rate68 /minNoah Meghan [address] [place], [place] 3361312-05-2023 06:00-0500Mean blood uiayxpqw36 mm[Hg]Héctor Meghan [address] [place], [place] 3361312-05-2023 06:00-4924PaJ7% (BldA) [Mass fraction]100 %Héctor Meghan [address] [place], [place] 3361312-05-2023 06:00-0500 Systolic blood bcsrqemj201 mm[Hg]Héctor Meghan [address] [place], [place] 3361312-05-2023 05:00-0500 Diastolic blood unzyvyzj88 mm[Hg]Héctor Meghna [address] [place], [place] 3361312-05-2023 05:00-0500Heart rate85 /minNoah Meghan [address] [place], [place] 3361312-05-2023 05:00-0500Mean blood yyhhkqcs16 mm[Hg]Héctor Meghan [address] [place], [place] 3361312-05-2023 05:00-0500 Respiratory rate17 /minNoah Meghan [address] [place], [place] 3361312-05-2023 05:00-0500 Systolic blood pcuulezj011 mm[Hg]Héctor Meghan [address] [place], [place] 3361312-05-2023 02:30-0500Body camrshaghnp88.78 [degF]Héctor Meghan [facility]12-05-2023 02:30-0500Heart rate94 /minNoah Meghan [facility]12-05-2023 02:30-0500 Respiratory rate16 /minNoah Meghan [facility]11-24-2023 07:56-0500Body uklvef660.9 cmJacqueline Sharma MD Work Phone: [facility]11-24-2023 07:56-0500Body temperature 96.8 [degF]Jacqueline Sharma MD Work Phone: [facility]11-24-2023 07:56-0500Body zxvmuq120.62 kgJacqueline Sharma MD Work Phone: [facility]11-24-2023 07:56-0500Diastolic blood edplovqg65 mm[Hg]Jacqueline Sharma MD Work Phone: [facility]11-24-2023 07:56-0500Heart pvvx033 /Lucia Sharma MD Work Phone: [facility]11-24-2023 07:56-0500Respiratory rate 20 /Lucia Sharma MD Work Phone: [facility]11-24-2023 07:56-2529AyB7% (BldA) [Mass fraction]98 %Jacqueline Sharma MD Work Phone: [facility]11-24-2023 07:56-0500Systolic blood axehpvst764 mm[Hg]Jacqueline Sharma MD Work Phone: [facility]10-16-2023 18:04-0400Diastolic blood szzwdnda32 mm[Hg]Santos Booker [facility]10-16-2023 18:04-0400Heart qqpx465 /minJohn Jhony [address] [place], [place] 0486410-16-2023 18:04-0400Mean blood xbysvlhb559 mm[Hg]Santos Booker [address] [place], [place] 0486410-16-2023 18:04-0400 Respiratory rate18 /minJolaci Jhony [address]10-16-2023 18:04-5509ZdK6% (BldA) [Mass fraction]99 %Santos Booker [address]10-16-2023 18:04-0400 Systolic blood gpuzpnur590 mm[Hg]Santos Booker [address]10-16-2023 17:42-0400 Diastolic blood mm[Hg]Santos Booker [address]10-16-2023 17:42-0400Heart wufg810 /minSantos Galee [address] [place], [place] 0486410-16-2023 17:42-0400Mean blood terovxis876 mm[Hg]Santos Booker [address]10-16-2023 17:42-0400 Respiratory rate18 /minSantos Jhony [address] [place], [place] 0486410-16-2023 17:42-9157SjB9% (BldA) [Mass fraction]99 %Santos Booker [address] [place], [place] 0486410-16-2023 17:42-0400 Systolic blood byqllwzv012 mm[Hg]Santos Booker [address]10-16-2023 16:56-0400 Diastolic blood utcodraj14 mm[Hg]Santos Booker [address]10-16-2023 16:56-0400Heart szah741 /minJolaci Jhony [facility]10-16-2023 16:56-0400Mean blood plxwlvdi714 mm[Hg]Santos Booker [address] [place], [place] 0486410-16-2023 16:56-0400 Respiratory rate18 /minSantos Booker [address] [place], [place] 3361310-16-2023 16:56-3732HuQ5% (BldA) [Mass fraction]100 %Santos Booker [address] [place], [place] 3361310-16-2023 16:56-0400 Systolic blood aqdstubx241 mm[Hg]Santos Booker [address] [place], [place] 3361310-16-2023 14:52-0400Body wicyfbsauei44.06 [degF]Santos Booker [address] [place], [place] 0486410-16-2023 14:52-0400Heart yoko809 /Deisy Booker [address] [place], [place] 0486410-16-2023 14:52-0400 Respiratory rate20 /Deisy Booker [address] [place], [place] 0486409-29-2023 09:29-0400Blood Pressure LocationMichael NILL [phone]-SftupPrem[facility] [place] 12-09-2022 09:29-0400Diastolic blood wchxhrau11 mm[Hg]Gabe NILL [phone]-PzlfsPrem[facility] [place] 12-09-2022 09:29-0400Heart rate89 /minMichael NILL [phone]-XevpzPrem[facility] Health [facility] [place] 12-09-2022 09:29-0400Respiratory rate16 /minMichael NILL [phone]-XgzfyPrem[facility] Health [facility] [place] 12-09-2022 09:29-0400Systolic blood favmmbiz013 mm[Hg]Gabe GODWIN [phone]-EstljPremier Health [facility] [place] 10-14-2022 16:30-0400Body bzwusewciuf81.88 [degF]Cliff Gusman [facility]08-04-2023 16:30-0400 Diastolic blood flhcmeog682 mm[Hg]Cliff Gusman [facility]08-04-2023 16:30-0400Heart uhjs832 /minJoshmaida Gusman [facility]08-04-2023 16:30-0400Mean blood oiyrtllz967 mm[Hg]Cliff Gusman [facility]08-04-2023 16:30-0400 Respiratory rate18 /minCliff Gusman [facility]08-04-2023 16:30-7732TgC6% (BldA) [Mass fraction]100 %Cliff Gusman [facility]08-04-2023 16:30-0400 Systolic blood ttixnltl637 mm[Hg]Cliff Gusman [facility]01-10-2023 12:00-0500Body hzdyxh987.72 Arnaud Gusman Other [email or web address] Other 01-10-2023 12:00-0500Body mass index (BMI) [Ratio] 41.05 kg/i9AvijhdFaby Gusman Other [facility] Other 01-10-2023 12:00-0500Body adhmktgkryr93.5 [degF]Faby Gusman Other [employer] Other 01-10-2023 12:00-0500Body eiotbx956.47 kgFaby Naseem Other [place] [facility] Other 01-10-2023 12:00-0500Diastolic blood bzflojfh10 mm[Hg] Faby Gusman Other [facility] Other 01-10-2023 12:00-0500Respiratory rate20 /minFaby Gusman Other [place] [facility] Other 01-10-2023 12:00-5339NdI8% (BldA) [Mass fraction]99 % Faby Gusman Other [place] [facility] Other 01-10-2023 12:00-0500Systolic blood erejlcsz319 mm[Hg] Faby Gusman Other [place] [facility] Other 12-13-2022 15:41-0500Blood Pressure LocationDachapin [facility]12-13-2022 15:41-0500 Diastolic blood mm[Hg]Leonardo [facility]12-13-2022 15:41-0500Heart rate79 /Clay Bates [facility]12-13-2022 15:41-0500 Respiratory rate18 /Clay Bates [facility]12-13-2022 15:41-7174YuU1% (BldA) [Mass fraction]100 %Leonardo Bates [facility]12-13-2022 15:41-0500 Systolic blood qwqcueyj979 mm[Hg]Leonardo Bates [facility]10-25-2022 14:00-0400 Hourly RoundingNoah Meghan [address] [place], [place] [id number] 14:00-0400 Promise to ReturnNoah Meghan [address] [place], [place] [id number] 02:44-0400 Diastolic blood refttouc11 mm[Hg]Héctor Meghan [address] [place], [place] [id number] 02:44-0400Heart rate71 /minNoah Meghan [address] [place], [place] [id number] 02:44-0400Mean blood kfjgotta45 mm[Hg]Héctor Meghan [address] [place], [place] [id number] 02:44-9899ExV6% (BldA) [Mass fraction]98 %Héctor Meghan [address] [place], [place] [id number] 02:44-0400 Systolic blood dklwpebm373 mm[Hg]Héctor Meghan [address] [place], [place] [id number] 01:41-0400 Diastolic blood qmkqsraf60 mm[Hg]Héctor Meghan [address] [place], [place] [id number] 01:41-0400Heart rate79 /minNoah Meghan [address] [place], [place] [id number] 01:41-0400Mean blood mvdyfkrk16 mm[Hg]Héctor Meghan [address] [place], [place] [id number] 01:41-6192RiV8% (BldA) [Mass fraction]99 %Héctor Meghan [address] [place], [place] [id number] 01:41-0400 Systolic blood rdzarilw837 mm[Hg]Héctor Meghan [address] [place], [place] 3361310-25-2022 01:00-0400 Hourly RoundingNoah Meghan [address] [place], [place] 0486410-25-2022 01:00-0400 Promise to ReturnNozahraa Meghan [address] [place], [place] 0486410-25-2022 00:45-0400Body elxmvxuadbp99.52 [degF]Héctor Meghan [address] [place], [place] 3361310-25-2022 00:45-0400 Diastolic blood buszthhk69 mm[Hg]Héctor Meghan [address] [place], [place] 0486410-25-2022 00:45-0400Heart rate82 /minHéctor Meghan [address] [place], [place] 3361310-25-2022 00:45-0400 Respiratory rate16 /minHéctor Meghan [address] [place], [place] 3361310-25-2022 00:45-8325ByK6% (BldA) [Mass fraction]100 %Héctor Meghan [address] [place], [place] 0486410-25-2022 00:45-0400 Systolic blood zcewlqjz767 mm[Hg]Héctor Meghan [address] [place], [place] 3361309-16-2022 20:34-0400 Diastolic blood sbxuekoy60 mm[Hg]Cliff Gusman [address] [place], [place] 0486409-16-2022 20:34-0400Heart rate73 /minCliff Gusman [address] [place], [place] 0486409-16-2022 20:34-0400 Respiratory rate18 /minCliff Gusman [address] [place], [place] 0486409-16-2022 20:34-5111JnH9% (BldA) [Mass fraction]100 %Cliff Gusman [address] [place], [place] 3361309-16-2022 20:34-0400 Systolic blood ospvdmxn138 mm[Hg]Cliff Gusman [address] [place], [place] 0486409-16-2022 19:35-0400 Diastolic blood acfawvxy77 mm[Hg]Cliff Gusman [address] [place], [place] 0486409-16-2022 19:35-0400Heart rate72 /minClfif Gusman [address]09-16-2022 19:35-0400 Hourly RoundingCliff Gusman [address]09-16-2022 19:35-0400Mean blood lmuwdtog53 mm[Hg]Cliff Gusman [address]09-16-2022 19:35-0400 Nursing Progress Note ReasonOther: Pt back from CT and resting on cart. Denies any needs at this time.Cliff Gusman [address]09-16-2022 19:35-0400 Respiratory rate18 /minCliff Gusman [address] [place], [place] 0486409-16-2022 19:35-5734TkF3% (BldA) [Mass fraction]100 %Cliff Gusman [address] [place], [place] 0486409-16-2022 19:35-0400 Systolic blood nqhsixsy301 mm[Hg]Cliff Gusman [address] [place], [place] 0486409-16-2022 19:08-0400 Diastolic blood offrbapj94 mm[Hg]Cliff Gusman [address] [place], [place] 0486409-16-2022 19:08-0400Heart rate67 /minCliff Gusman [address] [place], [place] 0486409-16-2022 19:08-0400Mean blood lwgjgovq11 mm[Hg]Cliff Gusman [address]09-16-2022 19:08-0400 Respiratory rate18 /minCliff Gusman [address]09-16-2022 19:08-8559YhE4% (BldA) [Mass fraction]97 %Cliff Gusman [address] [place], [place] 0486409-16-2022 19:08-0400 Systolic blood tlrkdqud555 mm[Hg]Cliff Gusman [address] [place], [place] 3361309-16-2022 18:08-0400Body ooldfnuhuoo50.88 [degF]Cliff Gusman [address] [place], [place] 3361309-16-2022 18:08-0400Heart rate82 /Billy Gusman [address] [place], [place] 3361309-14-2022 23:30-0400 Diastolic blood menkcxjj66 mm[Hg]Héctor Meghan [address] [place], [place] 3361309-14-2022 23:30-0400Heart rate71 /minNoah Meghan [address] [place], [place] 0486409-14-2022 23:30-0400Mean blood xqvvcrin48 mm[Hg]Héctor Meghan [address] [place], [place] 0486409-14-2022 23:30-0400 Respiratory rate22 /minNoah Meghan [address] [place], [place] 0486409-14-2022 23:30-4448DaZ2% (BldA) [Mass fraction]98 %Héctor Meghan [address] [place], [place] 0486409-14-2022 23:30-0400 Systolic blood getghawz028 mm[Hg]Héctor Meghan [address] [place], [place] 0486409-14-2022 22:21-0400 Diastolic blood ujbplruf36 mm[Hg]Héctor Meghan [address] [place], [place] 0486409-14-2022 22:21-0400Heart rate79 /minNoah Meghan [address] [place], [place] 0486409-14-2022 22:21-0400Mean blood akwgwfiw29 mm[Hg]Héctor Meghan [address]09-14-2022 22:21-0400 Respiratory rate15 /minNoah Meghan [address] [place], [place] 3361309-14-2022 22:21-6126VaX9% (BldA) [Mass fraction]98 %Héctor Meghan [address] [place], [place] 3361309-14-2022 22:21-0400 Systolic blood uyzkoido921 mm[Hg]Héctor Meghan [address] [place], [place] 3361309-14-2022 21:32-0400Body zjpvrjviuvh93.06 [degF]Héctor Meghan [address] [place], [place] 3361309-14-2022 21:32-0400 Diastolic blood mm[Hg]Héctor Meghan [address] [place], [place] 3361309-14-2022 21:32-0400Heart rate86 /minNoah Meghan [address] [place], [place] 0486409-14-2022 21:32-0400 Respiratory rate28 /minNoah Meghan [address] [place], [place] 0486409-14-2022 21:32-1124BjQ5% (BldA) [Mass fraction]98 %Héctor Meghan [address] [place], [place] 0486409-14-2022 21:32-0400 Systolic blood ekutgccg498 mm[Hg]Héctor Meghan [address] [place] [address] Encounters Encounter DateEncounter TypeCare ProviderFacilityStart: 12-26-2024 End: 49-18-3154Dansbl flowsheetCorey Diya DO Work Phone: [facility] OBGYNStart: 12-26-2024 End: 11-76-6546Cybwuh flowsheetCorey Diya DO Work Phone: [facility] OBGYNStart: 12-26-2024 End: 51-43-0592Mttgwb outpatient visit 15 minutesCorey Diya DO Work Phone: [facility] Jones OBGYNComment on above:Pre-op evaluation; Pelvic pain in female; Dysfunctional uterine bleeding; Menorrhagia with irregular cycleStart: 12-26-2024 End: 99-15-1666Uvcnjsnluhcuh examination doneCorey Yesmail DO Work Phone: NO HealthcareStart: 12-26-2024 End: 90-14-8734mhuozzifymYYVRQ FAZIONot AvailableStart: 12-20-2024 End: 92-14-3340Ufaeni Lisset WEBSTER Work Phone: [facility] MedicineStart: 12-20-2024 End: 90-85-8438Plsxiz Lisset WEBSTER Work Phone: [facility] MedicineStart: 12-20-2024 End: 59-78-6421Gdfjgi outpatient visit 25 minutesLinnea WEBSTER Work Phone: [facility] MedicineComment on above:Acute bronchitis with wheezing (Primary Dx); Non-recurrent acute serous otitis media of right ear; Viral upper respiratory tract infection; Mild intermittent asthma without complication (HCC)Start: 12-20-2024 End: 91-41-2694cbdzrayasrLHXBAXH J SOMMERSNot AvailableStart: 11-20-2024 End: 99-63-9620Ydvhar Bernabe Rodriges NP Work Phone: [facility] OBGYNStart: 11-20-2024 End: 60-77-5355Ifcqrd Bernabe Rodriges NP Work Phone: [facility] OBGYNStart: 11-20-2024 End: 15-90-5287Eaanzg outpatient visit 15 minutesSusie Rodriges NP Work Phone: n[facility] Karen OBGYNComment on above:Pelvic pain in female (Primary Dx); Dysfunctional uterine bleeding; Menorrhagia with irregular cycleStart: 11-20-2024 End: 00-07-2424psbbmawufxRQSMRVIF EBERLYNot AvailableStart: 11-15-2024 End: 80-72-0252Zvlccjxbi Result EncounterGeneric External Data ProviderNOMS External Department UnsolicitedStart: 11-15-2024 End: 25-57-0840Ovdesgbza Result EncounterGeneric External Data ProviderNOME External Department UnsolicitedStart: 11-05-2024 End: 93-31-6708Iyjoamj encounter procedureUriel Marmolejo MD Work Phone: [facility] on above:ResultsStart: 11-05-2024 End: 40-10-3546blgmpsehvbHEZIZH VLADICFacility:[facility] Hospitaltart: 11-05-2024 End: 70-78-2390Nvrarwg evaluation of patient and reportNurse [facility] Work Phone: [facility] on above:Nausea and vomiting, unspecified vomiting typeStart: 11-05-2024 End: 20-01-0650nhapyfjvczKTITYD PACKFacility:[facility] Hospitaltart: 10-31-2024 End: 88-75-4034cxgfeckylzLCKWYA PACKFacility:[facility] Hospitaltart: 10-24-2024 End: 21-38-0182youzhyfcmhAxdubxn J SOMMERSFacility:FTMCStart: 10-24-2024 End: 08-16-6411Vnxfxuxuo Result EncounterLinnea WEBSTER Work Phone: noms External Department UnsolicitedStart: 10-24-2024 End: 87-35-6076Fivtclodn Result EncounterLninea WEBSTER Work Phone: noms External Department UnsolicitedStart: 10-24-2024 End: 82-36-0210Ofunwp outpatient visit 25 minutesLinnea WEBSTER Work Phone: [facility] MedicineComment on above:Cervical radiculopathy (Primary Dx)Start: 10-24-2024 End: 72-71-1835cgrzopfudzLVSIWXO J SOMMERSNot AvailableStart: 10-23-2024 End: 50-96-9397Fakhzyd encounter procedureCorey Diya DO Work Phone: [facility] HealthcareStart: 10-23-2024 End: 26-13-6478Dcgscphf preventive med est patient 18-39 yrsCorey Diya DO Work Phone: [facility] Karen OBGYNComment on above:Well woman exam with routine gynecological exam; Encounter for weight management; Weight gainStart: 10-23-2024 End: 16-24-4276dyewlzllnjOVTDC FAZIONot AvailableStart: 10-23-2024 End: 06-21-7857Ygvobm flowsheetCorey Diya DO Work Phone: [facility] [place] OBGYNStart: 10-23-2024 End: 51-39-2443Lyyhyn flowsheetCorey Diya DO Work Phone: [facility] [place] OBGYNStart: 10-23-2024 End: 13-23-7580Jzuirvloy Result EncounterGeneric External Data ProviderNOMS External Department UnsolicitedStart: 10-14-2024 End: 56-40-7323Fssebo flowsSrinivas WEBSTER Work Phone: [facility]ley MedicineStart: 10-14-2024 End: 46-37-2122Sbputc flowsSrinivas WEBSTER Work Phone: [facility] MedicineStart: 10-14-2024 End: 77-50-2916Kldbjmr encounter statusLinnea WEBSTER Work Phone: [facility] Work Phone: start: 10-14-2024 End: 02-36-9686Nxigqpej preventive med est patient 18-39 yrsLinnea WEBSTER Work Phone: [facility] MedicineComment on above: Preventative health care (Primary Dx)Start: 10-14-2024 End: 92-75-9253bigsrieyfiALDAWET J SOMMERSNot AvailableStart: 10-02-2024 End: 66-25-7218Xhtyibkj ReferredBlack Warner DO-Pill[facility] Corporate HealthStart: 10-02-2024 End: 54-17-8670povmvcrsrjByqptmvHitesh Hackett PA-C Work Phone: [facility] Work Phone: Start: 09-30-2024 End: 70-87-1420tgamstiyikSpctnh Pack PR MANAGER.EMBROIDERY PATTERNMAKER Work Phone: GastroenterologyComment on above:Next stepsStart: 09-24-2024 End: 14-72-8236Cdktpqksd Result EncounterGeneric External Data ProviderNOMS External Department UnsolicitedStart: 09-24-2024 End: 67-07-4565Vczxcsgga Result EncounterGeneric External Data ProviderNOMS External Department UnsolicitedStart: 46-00-9791ldhdowjskdXQTYVT PACK Facility:[facility]: 09-24-2024 End: 12-30-0850Grpwqsfdfp hospital visit by fumzoabtxZdxjz5Chjwnlcdf Imaging Comment on above:Dyspepsia [R10.13]Start: 09-16-2024 End: 49-16-4904erdcmqvppvYgthqkhHitesh Hackett PA-C Work Phone: [facility] Work Phone: Start: 09-16-2024 End: 28-53-3980Smilsbco ReferredChristine Juan Harris DO-LAB Path Spec [place] HospStart: 09-16-2024 End: 72-37-5631Foyprhkvw Result EncounterGeneric External Data ProviderNOMS External Department UnsolicitedStart: 09-16-2024 End: 25-52-7249Xbwrculwu Result EncounterGeneric External Data ProviderNOMS External Department UnsolicitedStart: 09-12-2024 End: 20-32-3263Opsahc outpatient visit 25 minutesQuique Vazquez MD Work Phone: [facility] CenterComment on above:POTS (postural orthostatic tachycardia syndrome); Postural orthostatic tachycardia syndrome (POTS); Acquired hypothyroidism; Type 2 diabetes mellitus without complication, without long-term current use of insulin; Never smoked tobacco; BMI 40.0-44.9, adult (Multi)Start: 09-12-2024 End: 16-37-6026rchvfcibmsASHJXP M [facility] AmbulatoryStart: 09-03-2024 End: 78-65-9237Xjwmiy-up Carl Parson MD Work Phone: [facility] SurgeryStart: 08-29-2024 End: 54-39-7295Wlejcseyh Result EncounterGeneric External Data ProviderNOMS External Department UnsolicitedStart: 08-29-2024 End: 91-80-8492Jjtzqxbaa Result EncounterGeneric External Data ProviderNOMS External Department UnsolicitedStart: 13-27-1319cwhelmpzcvQCIJDR W BLADES [facility]: 08-29-2024 End: 10-01-0176Tgtlqwuxrk hospital visit by physicianGene Parson MD Work Phone: [facility] SurgeryComment on above:Nausea and vomiting, unspecified vomiting type [R11.2]Start: 08-28-2024 End: 44-81-0910Kmanqfn encounter procedureQuique Harris MD FACC -Electrodiagnostics Work Phone: Start: 08-28-2024 End: 49-75-0033rrqqblcjmhFgozwmw TraboulssiFacility:[facility]ontart: 08-14-2024 End: 66-12-0730Jcyihuf encounter procedureLinnea Hackett PA-C Work Phone: [facility] [place] Work Phone: Start: 08-14-2024 End: 88-22-4450xgueazwpeyOhxgdutHitesh Hackett PA-C Work Phone: [facility] Work Phone: Start: 07-30-2024 End: 37-32-7233djipvnbqqmUUJZGS PACKFacility:[facility] Hospitaltart: 07-10-2024 End: 43-19-6080Rigssdnvh Result EncounterGeneric External Data ProviderNOMS External Department UnsolicitedStart: 07-10-2024 End: 68-69-3744Hqtpzqgwa Result EncounterGeneric External Data ProviderNOMS External Department UnsolicitedStart: 07-10-2024 End: 56-35-6816Aptzibfzsp hospital visit by Yi Avina [facility] 2[facility] AlabamaComment on above:Syncope, unspecified syncope typeStart: 07-10-2024 End: 05-66-0424zrwuvsatszAUWMVX [facility]tart: 07-08-2024 End: 03-81-6558Imdous flowsSrinivas WEBSTER Work Phone: noms NE FMStart: 07-08-2024 End: 08-80-1056Fodeql Lisset WEBSTER Work Phone: [facility] NE FMStart: 07-08-2024 End: 15-82-3446Bwjxuz outpatient visit 25 minutesLinnea WEBSTER Work Phone: [facility] NE FMComment on above:Acute cystitis with hematuria (Primary Dx); Periumbilical mass; Epigastric painStart: 07-08-2024 End: 09-20-4049uycqraxipxJBFYTJWMikhail Villalpando AvailableStart: 06-21-2024 End: 00-67-7816Oferixghb department patient visitLINNEA HACKETT Facility:[facility]art: 06-21-2024 End: 70-00-0641Pfstlebah Result EncounterGeneric External Data ProviderNOMS External Department UnsolicitedStart: 06-21-2024 End: 23-01-3063Kkugzibdl Result EncounterGeneric External Data ProviderNOMS External Department UnsolicitedStart: 05-08-2024 End: 52-46-9881Jbdkbb outpatient new 45 minutesQuique Vazquez MD Work Phone: [facility] CenterComment on above:Postural orthostatic tachycardia syndrome (POTS) (Primary Dx); Syncope, unspecified syncope type; Hypothyroidism, unspecified type; BMI 40.0-44.9, adult (Multi); Never smoked tobacco; Morbid obesity (Multi)Start: 05-08-2024 End: 58-70-4609thfjrwfdjiJSADPX M [facility] AmbulatoryStart: 04-18-2024 End: 32-37-4459Edzoyczlw encounterLinnea WEBSTER Work Phone: [facility] NE FMStart: 04-16-2024 End: 48-06-7246Ljekyc flowsheetLinnea WEBSTER Work Phone: [facility] [place] FMStart: 04-16-2024 End: 86-09-7564Qosjio flowsheetLinnea WEBSTER Work Phone: n[facility] [place] FMStart: 04-16-2024 End: 33-98-2380Dmjqlycte Result EncounterLinnea WEBSTER Work Phone: noms External Department UnsolicitedStart: 04-16-2024 End: 03-43-8178xohyrxbqdcJuscbqj J SOMMERSFacility:FTMCStart: 04-16-2024 End: 50-31-9494Hqjjmhg encounter procedureLinnea HACKETT [facility] Start: 04-16-2024 End: 11-61-3451Cyhueb outpatient visit 25 minutesLinnea WEBSTER Work Phone: noms NE FMComment on above:Throat swelling (Primary Dx); Lower abdominal pain; Heart palpitations; Tachycardia; Acquired hypothyroidism (CMS/HCC)Start: 04-16-2024 End: 05-51-8496xlyrdwllxbEYTCRMN J SOMMERSNot AvailableStart: 01-18-2024 End: 55-55-7103Kvbwyo Lisset WEBSTER Work Phone: [facility] NE FMStart: 01-18-2024 End: 53-56-0224Rfjhot Lisset WEBSTER Work Phone: [facility] NE FMStart: 01-18-2024 End: 69-33-6600Fanegm outpatient visit 25 minutesLinnea WEBSTER Work Phone: [facility] NE FMComment on above:Viral upper respiratory tract infection (Primary Dx); Mild intermittent asthma without complication (CMS/HCC)Start: 01-18-2024 End: 34-01-4788auqdulgoiqEESOLYUMikhail Villalpando AvailableStart: 01-08-2024 End: 35-85-4723Bctjxv Lisset WEBSTER Work Phone: [facility] NE FMStart: 01-08-2024 End: 23-29-6748Hytyxp Lisset WEBSTER Work Phone: [facility] NE FMStart: 01-08-2024 End: 27-65-7700Powwye outpatient visit 25 minutesLinnea WEBSTER Work Phone: n[facility] NE FMComment on above:Viral upper respiratory tract infection (Primary Dx); Mild intermittent asthma without complication (CMS/HCC); Non-recurrent acute serous otitis media of right earStart: 01-08-2024 End: 20-18-8214vvwqnaqdcqMTICYEWMikhail Villalpando AvailableStart: 12-06-2023 End: 26-66-5615Ffrpguoxr department patient visitCliff Gusman [facility] Start: 10-13-2023 End: 24-96-3755Yjwuvrizs department patient visitSantos Booker [facility] Start: 32-95-1126Pdbxbzs encounter statusLinnea WEBSTER Work Phone: noms HealthcareStart: 09-21-2023 End: 21-48-1167mdyupmltskMN-C Linnea Hackett Work Phone: [facility] Work Phone: Start: 09-21-2023 End: 45-18-4586Nzboifja ReferredPA-C Linnea Hackett Work Phone: [facility] CountyStart: 09-04-2023 End: 14-74-0649wibgemvnxjMSYI REFERRALFacility:FTMCStart: 09-04-2023 End: 02-52-1619Jiaqbak encounter procedureMolesley Duong [facility] Start: 08-01-2023 End: 98-52-4061Ekmwwaqoy Result EncounterLinnea WEBSTER Work Phone: noms External Department UnsolicitedStart: 08-01-2023 End: 85-04-2040Vsrulekfc Result EncounterLinnea WEBSTER Work Phone: noms External Department UnsolicitedStart: 08-01-2023 End: 98-35-4996bkffzvxursAehnyaq J SOMMERSFacility:FTMCStart: 08-01-2023 End: 41-02-3291Zritxvq encounter procedureLinnea HACKETT [facility] Start: 06-14-2023 End: 35-09-7651Huzkcnywc Result EncounterDeon Parra MD Work Phone: noms External Department UnsolicitedStart: 06-14-2023 End: 99-67-7317Eeakxwlgd Result EncounterDeon Parra MD Work Phone: noms External Department UnsolicitedStart: 06-14-2023 End: 14-66-3727lhahhbvbraXtgnrqo W BauerFacility:FTMCStart: 06-14-2023 End: 67-83-9844Yahadxy encounter procedureDeon Parra [facility] Start: 05-25-2023 End: 69-04-6224Rmudhepgh department patient visitJean Bullard [facility] Start: 05-08-2023 End: 36-16-8128hpdckomxcdPgxqywm J SOMMERSFacility:FTMCStart: 65-99-4920Qlcog Wesley Rush MD Work Phone: noms GENSStart: 04-18-2023 End: 79-91-2103Rzoeya outpatient visit 15 minutesLinnea WEBSTER Work Phone: noms IN FMComment on above:Intractable chronic migraine without 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); Sarcoma (CMS/HCC)Start: 04-06-2023 End: 91-72-6740Wxvnrgwuv to same day surgery Mary Hackett Work Phone: [facility] CenterStart: 04-06-2023 End: 11-50-0161cprbmmgyxbLNBlanca Hackett Work Phone: [facility] Work Phone: Start: 04-04-2023 End: 83-25-1206hvxxdyrtxkQRIrvin Hackett Work Phone: [facility] Work Phone: Start: 04-04-2023 End: 89-58-3803Pxnauue encounter procedureKADY Hackett Work Phone: [facility] Work Phone: Start: 03-15-2023 End: 01-35-8556fwlnrixfvnEJQYAAXH J HARTFacility:FTMCStart: 03-15-2023 End: 44-65-5716Gosyuzx encounter procedureDAMARIA M IYER [facility] Start: 03-15-2023 End: 95-79-5338Yjnmezhry Result EncounterDamaria m Iyer ARSON INVESTIGATOR Work Phone: NOPT External Department UnsolicitedStart: 03-15-2023 End: 41-84-6528Dccfcuufn Result EncounterDamaria m Iyer ARSON INVESTIGATOR Work Phone: NOAC External Department UnsolicitedStart: 02-23-2023 End: 16-00-0022Vhvbhqzux Result EncounterGeneric External Data ProviderNOMS External Department UnsolicitedStart: 02-23-2023 End: 30-11-3866Gpqfcozcl Result EncounterGeneric External Data ProviderNOMS External Department UnsolicitedStart: 02-23-2023 End: 28-74-6313Eyjabmqdhy hospital visit by Gissell Lancaster (Lg Bore/1.5t) Work Phone: RadiologyComment on above:Soft tissue tumor [D49.2] 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 Sharma)Start: 02-03-2023 End: 66-93-7825yyxtdcbztuYddp Shepard MD Work Phone: Hematology/OncologyComment on above:History of sarcoma of soft tissue (Primary Dx); Family history of cancerStart: 02-03-2023 End: 02-45-1760Huspnff encounter procedureLeonardo Bray MD Work Phone: general SurgeryComment on above:Soft tissue tumor (Primary Dx)Start: 01-26-2023 End: 32-69-1064Twltnhozg department patient visitCliff GusmanFacility:[facility] Start: 01-05-2023 End: 24-06-3483ssiyzrbvesPxohyga J SOMMERSFacility:[facility]tart: 01-05-2023 End: 61-03-1781Jpvfjnd encounter procedureLinnea HACKETT [facility] Start: 12-30-2022 End: 38-15-3234kryzolcuzkMuyqvyl R NILLFacility:[facility] HospitalMorenatart: 12-30-2022 End: 28-69-9433Bhadouq encounter procedureMichael R NILL 080-7050Yunaqh-LklqbPremier Health [facility] [place] Start: 12-26-2022 End: 30-82-9100Ahvcdyjsu department patient visitCorinalaci Booker [facility] Start: 12-22-2022 End: 52-71-7905sgulnrsqepWndtipp R NILLFacility:FTMCStart: 12-12-2022 End: 77-16-7837rtkpmydvvzIuylqmz R NILLFacility:FTMCStart: 12-09-2022 End: 32-46-5574nwtytehebzVztipam J SOMMERSFacility: [place]walkStart: 12-09-2022 End: 42-35-8715Jfceqtn encounter procedureMichael R NILL [phone]-AyglrPremier Health [facility] General Surgery Jorge Start: 12-08-2022 End: 98-99-9364efzoqvrjuzHC Nickolas Isaacs Work Phone: [facility] Work Phone: Start: 12-08-2022 End: 31-78-7754Oqecadt encounter procedureMD Nickolas Isaacs Work Phone: [facility]-Flu VaccineStart: 82-32-6926shkggyhmdbKtsmlec NILLFacility: [place]vueStart: 10-14-2022 End: 12-46-5915Phnrqswpl department patient visitCliff Gusman [facility] Start: 10-13-2022 End: 24-57-7525Zugiljd encounter procedureDb KEANE [facility] Start: 04-11-2022 End: 60-14-3051Goxjxpw encounter Deann Weinstein [facility] Start: 03-22-2022 End: 56-70-3733Wtbunfm encounter procedureLinnea HACKETT [facility] Start: 03-22-2022 End: 52-42-5684udvpgpqsmsBfrtcy Lewis Other [place] [email or web address] Other Start: 86-57-5167Lzqkod outpatient visit 15 minutes Faby [facility]: 03-16-2022 End: 39-29-4102Goa-admission assessmentZakslava ALVAREZ [facility] Start: 02-28-2022 End: 40-51-4536Puursof encounter procedureDachapin Bates [facility] Start: 02-23-2022 End: 74-70-0099Hue-admission assessmentLeonardo Bates [facility] Start: 02-22-2022 End: 68-61-6984Fdfefrk encounter procedureLeonardo Bates [facility] Start: 02-08-2022 End: 99-66-8570Xovcigw encounter procedureLinnea HACKETT [facility] Start: 01-04-2022 End: 35-10-5851Utphqphky department patient visitHéctor Christianson [facility] Start: 11-26-2021 End: 64-16-8056Awdpozmyi department patient visitCliff Gusman [facility] Start: 11-24-2021 End: 84-79-9675Bacezhufk department patient visitHéctor Christianson [facility] Start: 11-23-2021 End: 01-12-2999anwxnqapjsAhmawo Taylor Other [facility] [email or web address] Other Start: 79-27-4494Ohpuct outpatient visit 5 minutes Laylageeta [facility] Buford RoadStart: 10-29-2021 End: 10-68-7312Jlflcwlg ReferredMD Nickolas Isaacs Work Phone: [facility]-Employee Benefit ScreeningStart: 11-12-2020 End: 08-59-4468wqwupjgefoUB GRACIE RAMIREZFacility:H1 Procedures DateProcedureProcedure DetailPerforming ClinicianStart: 52-55-7325XE PELVIS W/ TRANSVAGINALGeneric External Data ProviderStart: 46-24-7499Btvdxk hydrogen/methane testNicole Pack PR MANAGER.KATHE Work Phone: start: 77-54-6209BLIS ABO/RHDeborah Yanick WEBSTER Work Phone: Start: [phone] ID#Linnea Yanick WEBSTER Work Phone: start: [phone],APTIMA HPV,AGE GDLNCorey Diya DO Work Phone: Start: 36-09-4700EE GASTRIC EMPTYING SOLIDGeneric External Data ProviderStart: 33-52-1031VYRSO CULTURE - FRMCGeneric External Data ProviderStart: 26-46-1152Umxpp cultureDebtony Hackett PA-C Work Phone: start: [phone] External Data ProviderStart: 95-79-4687Tnuarjmcuqy flx dx w/collj spec when pfrmdNicole Pack PR MANAGER.KATHE Work Phone: start: 28-59-6367Cmzguqfcuhs rig transoral hypopharynx crv esophNicole Pack PR MANAGER.KATHE Work Phone: Start: 56-80-0774CCEEF GI ENDOSCOPYGeneric External Data ProviderStart: 98-10-8305RQ of abdomen and pelvis without contrastLinnea Hackett PA-C Work Phone: start: 49-36-9986Eawj tthrc r-t 2d w/wom-mode compl spec&colr dGeneric External Data ProviderStart: 71-29-7325PDR BACTERIA UR CULT Generic External Data ProviderStart: 99-38-0689Wgo routine ecg w/least 12 lds w/i&Les Vazquez MD Work Phone: Start: 25-48-4843BYTG TSH WITH T4FR REFLEXLinnea WEBSTER Work Phone: start: 61-04-4696MKL NECKLinnea WEBSTER Work Phone: start: 75-79-2579UMG BRAIN W/ + W/O CONTRASTDeon Parra MD Work Phone: Start: 89-29-0717Ambvhmfgijpv cholecystectomyPA-C Linnea Hackett Work Phone: start: 39-87-7000HZ CHEST 2 VIEWSDamaria m Iyer NP Work Phone: start: 21-45-4700Lnn abdomen w/o & w/contrast material Leonardo Bray MD Work Phone: Start: 38-11-6636CPA ABDOMEN WO/W IVCONGeneric External Data ProviderStart: 49-23-5280Nj thorax w/contrast materialJacqueline Sharma MD Work Phone: Start: 45-06-4363Mkfodfbt of lipomaJohn Jhony Start: 42-22-7246Mvfnlhdhnjl of kneeNozahraa Christianson Comment on above:RIGHT KNEE ARTHROSCOPY, partial lateral menisectomyExtraction of wisdom toothNozahraa Meghan Plan of Treatment DateCare ActivityDetailAuthorStart: 94-20-2432Gntdgv Vaccines (1 of 2)Zoster Vaccines (1 of 2)[facility] HospitalStart: 10-28-2025 End: 66-90-4837Qojjxll encounter blmkxsekt67/18/2026 8:30 AM EDT Procedure Visit NOMConnie FERRERAN [address] [place] [address] Db Keane DO [address] [place] [address] NOMConnie Jones OBGYNStart: 05-06-2025 End: 49-19-5502Yxzjvlk encounter bypioqucr90/24/2026 8:50 AM EST Office Visit [facility] [address] [facility] [address] [place] [phone] Quique Vazquez MD [address] [facility] [address], [address] [place] [address] [facility] CenterStart: 12-26-2024 End: 31-26-8765Dwrbmkp encounter procedureNOMS Karen OBGYNComment on above: ArrivedStart: 12-20-2024 End: 69-12-3041Vduufgy encounter procedureNOMS [facility]wood HospitalComment on above:ArrivedStart: 11-20-2024 End: 38-73-0122Zjrjeav encounter procedureNOMS Karen OBGYNComment on above: ArrivedStart: 06-16-0775ZDERE-19 Vaccine ( season)COVID-19 Vaccine ( season)NOMS HealthcareStart: 57-24-6968Dypelbnei vaccinationInfluenza Vaccine (#1)[facility] HospitalStart: 11-05-2024 End: 77-41-4372Dqlwjzp evaluation of patient and eeuikz6111/05/2024 9:00 AM EDT Nurse Visit [facility] Gastroenterology [facility] [address] [place] [address] [facility], Nurse [address] [facility] [address] [place] [address] Nausea and vomiting, unspecified vomiting type [R11.2][facility] Gastroenterology [facility] Comment on above:Nausea and vomiting, unspecified vomiting type [R11.2]Start: 10-24-2024 End: 91-47-0581Dfhijxj encounter erittodbx52/14/2025 12:40 PM EDT Office Visit JAIME [place] [facility] [address] [place] [phone] Linnea Hackett PA [address] [place] [address] NOMConnie [place] [facility] Braseltontart: 10-23-2024 End: 11-20-5870Xfwonoe encounter procedureNOMS BCP OBComment on above:Arrived Start: 14-05-3881Wjwnba Adult PhysicalYearly Adult [facility] HospitalStart: 10-14-2024 End: 99-58-0195Cxdmtmj encounter hemmgzjsk73/04/2025 12:20 PM EDT Office Visit JAIME [place] [facility] [address] [place] [address] Linnea Hackett, DARIN [address] [place] [address] ArrivedNOME [facility] MedicineComment on above:Arrived Start: 08-88-1599PezifKindred Hospital Limatart: 09-16-2024 Bacteria identified in Urine by CultureUrine Grant Hospitaltart: 08-01-2024 End: 57-54-6886Utamyep encounter blztodllc98/22/2025 10:40 AM EDT Office Visit [place] [address] [place] [address] Quique Vazquez MD [address] [place] [phone] [facility] CenterStart: 07-08-2024 End: 77-06-4159Opnashk encounter xbajdcxse39/28/2025 11:00 AM EDT Office Visit NOMS AL[place] DELIA [address] [place] [phone] sLinnea alvarez PA [address] [place] [address] ArrivedNOMS NE FMComment on above:ArrivedStart: 05-08-2024 End: 64-12-4990Bpgr table studyTilt Table Cardiac Services Routine Postural orthostatic tachycardia syndrome (POTS) Syncope, unspecified syncope type Expected: 05/08/2024 (Approximate), Expires: 05/08/2026[facility] Service Area Work Phone: Comment on above:Expected: 05/08/2024 (Approximate), Expires: 05/08/2026Start: 04-16-2024 End: 12-26-2159IFN W/REFLEX TO FT4TSH W/REFLEX TO FT4 Lab Routine Acquired hypothyroidism (CMS/HCC) Expected: 04/16/2024 (Approximate), Expires: 04/16/2025 [facility] Work Phone: comment on above:Expected: 04/16/2024 (Approximate), Expires: 04/16/2025Start: 04-16-2024 End: 84-71-7763Mifywdy encounter apaghzgfx30/04/2025 10:00 AM EST Office Visit NOMConnie FLANNERY [address] [place] [phone] alvarez PA [address] [place] [address] ArrivedNOMS NE FMComment on above:ArrivedStart: 01-18-2024 End: 68-14-4750Aglecaj encounter procedureNOMS NE FMComment on above:Arrived Start: 01-08-2024 End: 08-25-4115Nhnydvo encounter vgciajplg26/28/2024 11:30 AM EDT Office Visit NOMS [place] [address] [place] [phone] sLinnea alvarez PA [address] [place] [address] ArrivedNO IN FMComment on above:ArrivedStart: 98-23-5999Cvdmx-19 Vaccine ( season)Covid-19 Vaccine ( season)[facility] Hospitaltart: 11-60-6828ICIPA-19 Vaccine ( season)COVID-19 Vaccine ( season)[facility] HospitalStart: 87-57-6903Oigzpeeoe vaccination Influenza Vaccine (#1)[facility] Hospitaltart: 10-18-2023 End: 91-76-3712Ctnecno encounter ssyvhmkdq59/07/2024 2:20 PM EDT Office Visit NOMS YOKO OB [address] [facility] [place] [phone] Db Keane DO [address] [facility] [address] [place] [address] NOMS BCP OBStart: 05-31-2023 End: 23-94-3966Kgvqhnc encounter hsrbuhjao44/20/2024 9:00 AM EDT Consult NOMS PULM [address] [place] [address] Nichol Kiser, DO [address] [place] [address] NOMS PULMStart: 04-19-2023 End: 34-50-8286Ccwpgjn encounter awbrrhmux52/07/2024 9:30 AM EST Office Visit [facility] [address] [facility] [address] [place] [phone] Kirk Rush MD [address] [facility] [address] [place] [address] GENSStart: 73-35-8145MneziwoixGalion Community Hospital Start: 51-27-3292KgzcrqolpSelect Medical Specialty Hospital - Cantontart: 02-15-2023 End: 44-06-4368AE CHEST W IVCONCT CHEST W IVCON Radiology Routine History of sarcoma of soft tissue Family history of cancer Expected: 02/15/2023, Expires: 03/09/2024[facility] Work Phone: Comment on above:Expected: 02/15/2023, Expires: 03/09/2024Start: 25-54-9857Duiqm-19 Vaccine ( season)Covid-19 Vaccine ()[facility] Hospitaltart: 13-88-0509Gphwwgqcdf Assessment Depression AssessmentOhio State Harding Hospitaltart: 66-69-9581Cth TestingPap Testing [facility] Hospitaltart: 56-41-2067Smogtlfrm for malignant neoplasm of cervix [facility] Hospitaltart: 47-57-4248Aveglctewmvj Vaccine: Pediatrics (0 to 5 Years) and At-Risk Patients (6 to 64 Years) (1 of 2 - PCV)Pneumococcal Vaccine: Pediatrics (0 to 5 Years) and At-Risk Patients (6 to 64 Years) (1 of 2 - PCV) [facility]Start: 00-13-0608Yeabgzjtfwun Vaccine: Pediatrics and At-Risk Adult Patients (1 of 2 - PCV)Pneumococcal Vaccine: Pediatrics and At-Risk Adult Patients (1 of 2 - PCV)[facility]: 52-45-9496Wzgixv PCP Team Chronic Disease VisitAnnual PCP Team Chronic Disease VisitOhio State Harding Hospitaltart: 30-22-7392Iqjzrqf ScreeningAnxiety ScreeningOhio State Harding Hospitaltart: 76-19-7183Byflpsiqii ScreeningDepression ScreeningOhio State Harding Hospitaltart: 04-60-8075Davvxmbb mellitus screeningDiabetes ScreeningVan Wert [facility]: 37-55-3232Scorlwrjb C ScreeningHepatitis C ScreeningOhio State Harding Hospitaltart: 19-96-7719Ecazsykxq C screeningHepatitis C ScreeningOhio State Harding Hospitaltart: 48-32-6562YAZ ScreeningHIV ScreeningOhio State Harding Hospitaltart: 12-15-0618LIW screeningHIV ScreeningOhio State Harding Hospitaltart: 45-08-0325JJI Vaccines (2 - 2-dose series)HPV Vaccines (2 - 2-dose series)[facility]: 52-19-3412Yeaiopf of varicella vaccinationVaricella Vaccines (1 of 2 - 13+ 2-dose series)[facility] HospitalStart: 12-00-0655Tmauqmkqx vaccinationVaricella Vaccines (1 of 2 - 13+ 2-dose series)[facility]: 71-83-7362QAdF/Tdap/Td Vaccines (6 - Tdap)DTaP/Tdap/Td Vaccines (6 - Tdap)[facility]: 44-29-7828Gtxgn microalbumin profileDTaP,Tdap,Td Vaccine (6 - Tdap)[facility]tart: 61-39-7076Gwtulyum screeningDiabetes: Retinopathy ScreeningVan [facility]ert [facility] Hospital: 96-93-0498Szznfdwaej A1c measurementDiabetes: Hemoglobin A1C [facility]: 50-75-6576WUU screeningHIV Screening [facility]: 06-42-5185Loxnr panelLipid Panel [facility]: 62-91-7327Fubhnoi stimulating hormone measurementTSH LevelUnKettering Health Troy: 73-49-5349Vcxhn screening for proteinDiabetes: Urine Protein ScreeningUnKettering Health Troy: 28-55-3899Fimlbt Adult PhysicalYearly Adult PhysicalUnSelect Medical Specialty Hospital - [facility] End: 12-48-9492WWCTTC TEST GLUCOSEBREATH TEST GLUCOSE Endoscopy Routine Nausea and vomiting, unspecified vomiting type 1 Occurrences starting 10/01/2024 until 10/01/2025leveland ClinicComment on above:1 Occurrences starting 10/01/2024 until 10/01/2025ytology Cervical or vaginal smear or scraping studyPap Smear Pathology and Cytology Routine Well woman exam with routine gynecological exam Ordered: 10/23/2024[facility] Work Phone: comment on above:Ordered: 10/23/2024 End: 10-62-7985Yub abdomen w/o & w/contrast materialMRI ABDOMEN WO/W IVCON Radiology Routine Soft tissue tumor 1 Occurrences starting 02/03/2023 until 1 [facility] Work Phone: comment on above:1 Occurrences starting 02/03/2023 until 03/04/2024NM Stomach Views for gastric emptying solid phase W radionuclide PONM GASTRIC EMPTYING SOLID Radiology Routine Dyspepsia 09/24/2024 9:[address] [facility] Work Phone: patient EducationCholecystectomy (DC) Hydrocodone and AcetaminophenMercy Health [facility] Work Phone: Patient referralMercy Health Perrysburg [facility] Work Phone: Tissue Pathology biopsy reportSt. Mary'S Medical Center Work Phone: comment on above:Release Upon Ordering for 1 Occurrences starting 08/29/2024, 1 completedUR[facility]ULT[facility] Lab Routine 09/16/2024 10:35 PM [facility] End: 13-54-7388EG Heart TransthoracicSOCORRO GENERAL HOSPITAL Service Area Work Phone: Comment on above:Once for 1 Occurrences starting 07/10/2024 until 07/10/2024 End: 62-20-7615VG Mesenteric arteriesUS MESENTERIC ARTERY CMPLT VAS LAB Vascular Lab Routine Nausea and vomiting, unspecified vomiting type 1 Occurrences starting 10/01/2024 until 10/01/2025[facility] Work Phone: comment on above:1 Occurrences starting 10/01/2024 until 6CProMedica [facility] Immunizations Immunization DateImmunizationNotesCare ZxzjdsrtUyvqqffc74-64-7583dypkthmlo virus vaccine, unspecified formulationQuique Vazquez MD Work Phone: [facility] Work Phone: [phone], seasonal, injectableQuique Vazquez MD Work Phone: [facility] Work Phone: [phone]dx, injectable, quadrivalent, preservative Roger Ruvalcaba MD Work Phone: [facility] HospitalQytfgljbkf65-74-1756sawsyjzcn virus vaccine, unspecified formulationMri Bore/1.5t) Work Phone: [facility] HospitalCitsmo06-26-1276fzvzuiuce, seasonal, injectableKirk Ruvalcaba MD Work Phone: [facility] HospitalRervqtkine88-49-7641JCUZ-WkW-8 (COVID-19) mRNA- 1273 vaccineMichael NILL General Surgery Fwgrtobz45-32-0253srdtzudlx, injectable, quadrivalent, contains preservativeKirk Ruvalcaba MD Work Phone: [facility] HospitalEuvwpmhqyn55-34-2678ILNQG-58 mRNA-1273 (Moderna) MD Nickolas Isaacs Work Phone: [facility]01-08-2021COVID-19 mRNA-1273 (Moderna)MD Nickolas Isaacs Work Phone: [facility]10-30-2020seasonal influenza, intradermal, preservative Roger Ruvalcaba MD Work Phone: [facility] HospitalXraknlahke31-21-1280tpsfbtkgl, seasonal, injectable, preservative Roger Ruvalcaba MD Work Phone: [facility] HospitalIziizrusvn19-04-1800MEQ, unspecified formulation Kirk Ruvalcaba MD Work Phone: [facility] HospitalYhhrivsvbe16-99-8900lofml papilloma virus vaccine, quadrivalentKirk Ruvalcaba MD Work Phone: [facility] HospitalMzbukofkre93-40-5405rfvpy papilloma virus vaccine, quadrivalentKirk Ruvalcaba MD Work Phone: [facility] HospitalJwpmhzlayk32-47-8068gvrdtokepb, tetanus toxoids and pertussis María Ruvalcaba MD Work Phone: [facility] HospitalMdvvkdhrtc12-55-4921hnfpicw, mumps and rubella virus María Ruvalcaba MD Work Phone: [facility] HospitalHjcchckhwz97-23-6447vtseevmvhq vaccine, unspecified formulationKirk Ruvalcaba MD Work Phone: [phone] [place], [place] [address]Renihakyaw73-74-7247avddxvpkxk, tetanus toxoids and pertussis María Ruvalcaba MD Work Phone: [phone] [place], [place] [address]Jurimpmulg12-28-5210ubiihtgsfkd influenzae type b vaccine, conjugate unspecified Bobby Ruvalcaba MD Work Phone: [phone] [place], [place] [address]Ldefxakzjg25-53-6728hyuysoh, mumps and rubella virus vaccineKirk Ruvalcaba MD Work Phone: [phone] [place], [place] [address]Guntzmqilq40-01-5569tevmuxtnhd, tetanus toxoids and pertussis vaccineKirk Ruvalcaba MD Work Phone: [phone] [place], [place] [address]Kbhbrpccek98-60-9112ahehqfvyili influenzae type b vaccine, conjugate unspecified Bobby Ruvalcaba MD Work Phone: [phone] [place], [place] [address]Ysbcnvshbf81-13-8121nijyapcef B vaccine, pediatric or pediatric/adolescent dosageKirk Ruvalcaba MD Work Phone: [phone] [place], [place] [address]Cwyrfedqxd32-66-3134twlamzxhsp vaccine, unspecified formulationKirk Ruvalcaba MD Work Phone: [phone] [place], [place] [address]Jxtnkcykox36-72-6256tfakseyyjm vaccine, unspecified Bobby Ruvalcaba MD Work Phone: [phone] [place], [place] [address]Nkrvpwlwon22-34-3399pbvlmdpsie, tetanus toxoids and pertussis María Ruvalcaba MD Work Phone: [phone] [place], [place] [address]Qyfyxgnepy70-59-5309yacafnnoqsq influenzae type b vaccine, conjugate unspecified Bobby Ruvalcaba MD Work Phone: [phone] [place], [place] [address]Ufgfywcogn28-07-0162wmekareoxd, tetanus toxoids and pertussis María Ruvalcaba MD Work Phone: [phone] [place], [place] [address]Uivdoyiihc32-72-5706fqeokhjlket influenzae type b vaccine, conjugate unspecified Bobby Ruvalcaba MD Work Phone: [address] [place], [place] [address]Tcdmbxkwvg31-30-1285hdrabuizoj vaccine, unspecified formulationKirk Ruvalcaba MD Work Phone: [facility] HospitalJkamuvatau49-12-8679dglnygdtz B vaccine, pediatric or pediatric/adolescent Francie Ruvalcaba MD Work Phone: [facility] HospitalMbflnngext33-06-6294ugyykiqdl B vaccine, pediatric or pediatric/adolescent Francie Ruvalcaba MD Work Phone: [facility] Payers DatePayer CategoryPayerPolicy [id number] Care (Private)[facility] Member Subscriber Plan / Payer (Effective 2024-Present) Name: Adina Martinez Relation to Subscriber: Self Name: JuanRanjithia Payer ID: Not on file Type: Not on file Address: [place] [phone] Health [id number]40725.99720-29-2500Yfbmczn 1.2.840.527124.1.13.159.2.7.3.270[id number] 2.16.840.1.810938.3.57[id number] 2.16.840.1.370727.3.57[id number] 2.16.840.1.867465.3.57[id number] 2.16.840.1.046575.3.57[id number] 2.16.840.1.387914.3.57[id number] 2.16.840.1.811308.3.57[id number] 2.16.840.1.862360.3.579.2.[id number] 2.16.840.1.990873.3.57[id number] 2.16.840.1.593400.3.579.2.[id number] 2.16.840.1.487364.3.57[id number] 2.16.840.1.564093.3.57[id number] 2.840.1.219480.3.57[id number] 2.16.840.1.918292.3.57[id number] 2.16.840.1.661621.3.579.2.[id number] 2.16.840.1.082810.3.579.[id number] 2..840.1.598322.3.57[id number] 2.16.840.1.060529.3.57[id number] 2.16.840.1.168153.3.579.2.55308-13-0173Pjvchpf65942601 2.16.840.1.232717.3.57[id number] 2.16.840.1.815375.3.57[id number] 2.16.840.1.589076.3.57[id number] 2.16.840.1.383049.3.579.2.97[id number] 2.16840.1.360257.3.579.2.573824-70-9158Xuzjxma08695893 2.16840.1.601804.3.579.2.96789-04-9878Vyfpyhx30476499 2.0.1.501434.3.579.2.953996-52-5823Vadrxna08077254 2.16840.1.719270.3.579.2.342396-42-8679Qsahzbx81073937 2.0.1.270965.3.57[id number] 2.0.1.329112.3.579.2.9[id number] 2.840.1.847464.3.579.2.815124-07-1271Xrcnwdx57290633 2.0.1.241310.3.579.2.816346-07-3352Pkifhmh1407425 2.16840.1.010625.3.579.2.417248-58-0740Psfnywh5936959 2.0.1.040149.3.579.2.501324-49-7697Ldwhnnm3817599 2.16840.1.665573.3.579.2.685891-48-2521Twgbycx4371038 2.16840.1.422556.3.579.2.229083-59-3264Csxtexz077688459090Ztfn-zeoJhbr Pay 4125uho7-3e76-3uhb-3l45-4df04l5g06n8 Social History DateTypeDetailFacilityTobacco smoking status NHISUnknown if ever smokedMemorial Hospital Work Phone: Start: 62-47-5629Vix Assigned At [facility]tart: 11-18-2022 End: 70-28-3806Gbf Assigned At [facility] nodishes.co.uk Other ToJoint Township District Memorial HospitalComment on above: deniesDEnies.Tobacco smoking statusNo Smoking Status EnteredGood Samaritan Hospitaltart: 08-02-2022 End: 96-71-4932Fzcquas smoking statusNever smoked tobacco (finding)[facility] General [facility] [place] HospitalkStart: 05-25-2022 End: 23-53-5455Klkxovv smoking statusNeC[facility] Surgery [place] HospitalkTobacco smoking status NHISTobacco smoking consumption unknown [facility]tart: 11-18-2022 End: 70-13-1751Pjezaqv of Social functionNOMS HealthcareStart: 45-82-3577Fzhwlc identityIdentifies as female gender (finding)[facility]tart: 08-03-2022 Sexual orientationHeterosexual (finding)[facility]: 08-02-2022 End: 20-41-0749Jvaarqd use and exposureSmokeless tobacco non-userNOMS Healthcare Start: 04-04-2023 End: 24-97-1485Qjxabci intakeCurrent drinker of alcohol (finding)[facility] Within the last year, have you been afraid of your partner or ex-partner?NoNOMS HealthcareAre you now , , , , never or living with a partner?Never marriedNOMS HealthcareHow often to you have a drink containing alcohol?Monthly or lessNOMS HealthcareHow many standard drinks containing alcohol do you have on a typical day?1 or 2NOMS HealthcareHow often do you have 6 or more drinks on 1 occasion?NeverNOMS HealthcareHow hard is it for you to pay for the very basics like food, housing, medical care, and heating Somewhat hardNOMS HealthcareDo you feel stress - tense, restless, nervous, or anxious, or unable to sleep at night because yourmind is troubled all the time - these days [OSQ]Not at allNOMS Healthcare(I/We) worried whether (my/our) food would run out before (I/we) got money to buy more.Never trueNOMS Healthcare Start: 87-70-2467Iusxots Comment1-2 drinks of alcohol less than mthlyNOMS HealthcareDo you feel stress - tense, restless, nervous, or anxious, or unable to sleep at night because yourmind is troubled all the time - these days [OSQ]To some extentNOMS HealthcareIn the past 12 months, was there a time when you were not able to pay the mortgage or rent on time?YesNOME HealthcareStart: 60-86-4511Xijxtpe Comment1-2 yearlyPrem[facility] Health [facility] Hospital Work Phone: Start: 72-18-1419Ypb assigned at birthNot on file [facility] Work Phone: Start: 02-03-2023 End: 91-59-1476Sbexodpb to SARS-CoV-2 (event)Not surePremier Health Miami Valley HospitalStart: 97-43-9302RtmSkzbsg (finding)[facility] Start: 36-35-5998Zaovuwxrf beverage intakeLifetime non-drinker (finding) [facility] HospitalDo you feel stress - tense, restless, nervous, or anxious, or unable to sleep at night because yourmind is troubled all the time - these days [OSQ]Only a littleNOMS Healthcare Goals DatePatient GoalDesired Activity/State Functional Status HtamErtyrnplrxDsytxuGcjmxqzl55-70-0352Abccesm Health Questionnaire 2 item (PHQ- 2) [Reported][facility] HospitalUcyrwlknaz31-33-8489Qufcg score [AUDIT-C]0 10/08/2024 10:37 AM Miles AdamsNOPemiscot Memorial Health SystemsUmryjjliws01-51-9556Bur often do you have a drink containing alcohol?Never 10/08/2024 10:37 AM EDT Mychart, Generic NeverLakeland Regional HospitalIknetiwyxu71-24-2538Acqidlnzew statusPatient does not drink 10/08/2024 10:37 AM EDT Mychart, Generic Patient does not drinkLakeland Regional HospitalGsuemnqqei84-45-1320Etl often do you have 6 or more drinks on 1 occasion?Never 10/08/2024 10:37 AM EDT Mychart, Generic NeverLakeland Regional HospitalInuinzhtlg14-68-3432Fiqizrhprw StatusN/[facility]08-02-2024Functional StatusN/[facility]06-24-2024 Functional StatusAv[facility]03-14-2024Functional StatusN/A [facility]12-05-2023Functional StatusN/[facility]10-16-2023Functional StatusN/[facility] 04-64-3867Kfoturgggb StatusN/[facility] General Surgery Dvqqmoa50-60-9323Cjkgaecouk StatusN/[facility]12-13-2022 Functional StatusN/[facility]10-25-2022Functional StatusN/A [facility]09-16-2022Functional Status[facility]09-14-2022Functional StatusMagruder [facility] Hospital Clinical Notes 03-31-2019 to 12-26-2024 Note Date & CpdpAincVtdtdzhk71-71-7239 History of Present illness Narrative* Carmen Hammond - 12/26/2024 11:10 AM EDT Reason for Appointment: Patient ID: Adina Martinez is a 29 y.o. female who presents for Pre-op Visit Patient presents today for Pre Op appointment. Patient is scheduled to undergo Diagnostic Laparoscopy, possible FREDDY, possible FOE, possible BSO on 01/24/[address] Keane at [facility]. MEDICATIONS Current Outpatient Medications Medication Instructions albuterol HFA 90 mcg/act inhaler 2 puffs, Every 4 hours PRN Albuterol-Budesonide (Airsupra) 90-80 MCG/ACT aerosol 2 puffs, Inhalation, Every 4 hours PRN azithromycin (Zithromax) 250 MG tablet Take 2 tabs PO x 1 day then 1 tab PO daily x 4 days levothyroxine (SYNTHROID) 112 mcg, Oral, Daily before breakfast metFORMIN XR (GLUCOPHAGE-XR) 1,000 mg, Oral, Daily with evening meal, Do not crush, chew, or split. methylPREDNISolone (Medrol Dospak) 4 MG tablets Follow schedule on package instructions metoclopramide (REGLAN) 5 mg, Every 6 hours PRN metoprolol succinate XL (Toprol-XL) 50 MG 24 hr tablet TAKE 1 TABLET (50 MG) BY MOUTH EVERY DAY DO NOT CRUSH OR CHEW pantoprazole (PROTONIX) 40 mg, Daily promethazine-dextromethorphan (Phenergan-DM) 6.25-15 MG/5ML syrup 5 mL, Oral, Every 6 hours PRN ALLERGIES Allergies Allergen Reactions Bee Venom Anaphylaxis and Hives Other Reaction(s): Hives Raspberry Rash and Anaphylaxis Other Unknown Food Rash Pt allergic to berries PROBLEMS Active Ambulatory Problems Diagnosis Date Noted Morbid (severe) obesity due to excess calories ([facility]) 01/10/2020 Acquired hypothyroidism 10/11/2019 Anxiety disorder 08/02/2022 Morbid obesity ([facility] 10/11/2019 Personal history of COVID-19 08/02/2022 Tear of lateral meniscus of knee 08/02/2022 Other post infection and related fatigue syndromes 08/02/2022 Abdominal pain 09/29/2022 Periumbilical mass 11/22/2022 Mild intermittent asthma without complication ([facility]) 12/27/2022 Nausea 12/27/2022 BMI 38.0-38.9,adult 02/14/2023 History [...] 07/08/2024 Encounter for Rh blood typing 10/14/2024 Cervical radiculopathy 11/04/2024 Resolved Ambulatory Problems Diagnosis Date Noted Frontal [...] POTS (postural orthostatic tachycardia syndrome) Thyroid disease [facility]- thyroid ultrasound, trouble swallowing - 12/30/21 Trouble swallowing 12/30/2021 Vitamin D deficiency Social History Tobacco Use Smoking status: Never Smokeless tobacco: Never Substance Use Topics Alcohol use: Yes Comment: 1-2 drinks of alcohol less than mthly Drug use: Never FAMILY HISTORY Family History Problem Relation Name Age of Onset Mental illness Mother [employer]anda [employer] Miscarriages / Stillbirths Mother [employer] Supervisor Hypertension Father Leonardo Clinker Cancer Paternal Grandfather Leonardo Cancer Paternal Grandmother Kathie SURGICAL HISTORY Past Surgical History: Procedure Laterality Date CHOLECYSTECTOMY 04-06-23 KNEE CARTILAGE SURGERY Right 12/2019 knee meniscus. TOTAL KNEE ARTHROPLASTY Right 12/20/2019 MTP WISDOM TOOTH EXTRACTION 2014 REVIEW OF SYSTEMS Review of Systems: Review of Systems Constitutional: Negative. HENT: Negative. Eyes: Negative. Respiratory: Negative. Cardiovascular: Negative. Gastrointestinal: Negative. Genitourinary: Positive for menstrual problem and pelvic pain. Musculoskeletal: Negative. Skin: Negative. Neurological: Negative. All other systems reviewed and are negative. Hematological: Negative. Endocrine: Negative. Allergic/Immunologic: Negative. OBJECTIVE Objective: Physical Exam Constitutional: Appearance: Normal appearance. Adina is well-developed. Cardiovascular: Rate and Rhythm: Normal rate and [...] nursing note reviewed. Exam conducted with a fisheries diver present. Vitals: Estimated body mass index is 42.57 kg/m as calculated from the following: Height as of this encounter: 5' 8 . Weight as of this encounter: 280 lb. BP: 122/74 Patient's last menstrual period was 12/08/2024 (exact date). ASSESSMENT & PLAN ICD-10-CM 1. Pre-op evaluation Z01.818 2. Pelvic pain in female R10.20 3. Dysfunctional uterine bleeding N93.8 4. Menorrhagia with irregular cycle N92.1 Pre Op: Patient is doing well but has complaints of pelvic pain, dysfunctional uterine bleeding, andmenorrhagia. I have discussed conservative management vs. surgical management with the patient in detail and patient desires surgical management at this time. Patient will undergo Diagnostic Laparoscopy, possible FREDDY, possible FOE, possible BSO on 01/24/2025. Surgical consents were signed, mmc was reviewed, and patient is to proceed to [facility] OR. Follow Up: Patient is to follow up between 1-2 weeks post operative to assess proper healing and recovery fromprocedure. Documented by Angelica Eden LPN on behalf of: Db Keane DO documented in this encounterLakeland Regional [id number] History of Present illness Narrative* DARIN Mclean - 12/20/2024 8:00 AM EDT Images from the original note were not included. Adina Martinez is a 29 y.o. female presents with chief complaint of Immunizations (Received ) HPI: History of Present Illness The patient is a 29-year-old female who presents for an annual physical. She reports experiencing symptoms suggestive of bronchitis, including shortness of breath, chest pain, and a persistent cough with mucus production. The mucus is described as yellowish-sierra in color.She has been using albuterol for relief, consuming approximately 30 vials over the past two weeks. Her oxygen saturation was recorded at 98 percent, but she notes that her symptoms tend to worsen at n ight, with a decrease in oxygen saturation to 93 percent. She has not sought urgent care for these symptoms. She has a history of lung issues spanning 4 to 5 years and has been under the care of a store receiving clerk who prescribed several inhalers. She also mentions that two of her maternal cousins havebeen diagnosed with cystic fibrosis. She has a surgery scheduled on 01/24/2025 for exploratory laparoscopy for endometriosis. She has not cleaned her ears in a while and used a Q-tip, which resulted in hearing loss for the past week and a half. She used to have a camera device connected to her phone to clean her ears and has ordered a new one. Sleep: She plans to sleep until 8:30 AM tomorrow. FAMILY HISTORY Two maternal cousins have cystic fibrosis. One cousin has a GI mutation of cystic fibrosis, and theother has both GI and lung mutations. An uncle carries the lung mutation part of cystic fibrosis. MEDICATIONS: Current Outpatient Medications Medication Instructions albuterol HFA 90 mcg/act inhaler 2 puffs, Every 4 hours PRN Albuterol-Budesonide (Airsupra) 90-80 MCG/ACT aerosol 2 puffs, Inhalation, Every 4 hours PRN levothyroxine (SYNTHROID) 112 mcg, Oral, Daily before breakfast metFORMIN XR (GLUCOPHAGE-XR) 1,000 mg, Oral, Daily with evening meal, Do not crush, chew, or split. metoclopramide (REGLAN) 5 mg, Every 6 hours PRN metoprolol succinate XL (Toprol-XL) 50 MG 24 hr tablet TAKE 1 TABLET (50 MG) BY MOUTH EVERY DAY DO NOT CRUSH OR CHEW pantoprazole (PROTONIX) 40 mg, Daily promethazine-dextromethorphan (Phenergan-DM) [...] Social History reviewed. OBJECTIVE: Visit Vitals BP 120/74 (BP Location: Left arm, Patient Position: Sitting, BP Cuff Size: Large adult) Pulse 71 Temp 98.4 F (Temporal) Ht 5' 8 Wt 282 lb 9.6 oz SpO2 98% BMI 42.97 kg/m OB Status Having periods Smoking Status Never BSA 2.48 m BP Readings from Last 3 Encounters: 12/20/24 120/74 11/20/24 118/80 10/24/24 124/80 Wt Readings from Last 3 Encounters: 12/20/24 282 lb 9.6 oz 11/20/24 285 lb 10/24/24 283 lb 6.4 oz Physical Exam Physical Exam Ears: Impacted cerumen noted bilaterally. Respiratory: Collapsed airways noted on auscultation. General: alert & oriented, NAD Head: NC/AT Oral Cavity: MMM Skin: warm, dry Heart: RRR, No m/r/g, S1S2 nml Lungs: CTA b/l Abdomen: soft, ND/NT, BS wnl Musculoskeletal: normal gait Extremities: no clubbing, cyanosis or edema Neurological: nonfocal Psych: mood/affect full range Results ASSESSMENT AND PLAN: Assessment & Plan 1. Bronchitis: - She reports symptoms consistent with bronchitis, including shortness of breath, chest pain, and apersistent cough with yellow-grayish mucus. - Her oxygen level was 98%, but it drops to 93% at night. - She discussed her symptoms and history of lung issues, including the use of 30 vials of albuterolin the past two weeks. She also mentioned a family history of cystic fibrosis. - A steroid pack, antibiotic, and cough medicine with Phenergan will be prescribed. She is advised to continue her breathing treatments and take deep breaths to open up the airways. 2. Endometriosis: - She is scheduled for exploratory laparoscopy on 01/24/2025. It is crucial to manage her current bronchitis to ensure she is healthy for the procedure. 3. Cerumen impaction: - She reports difficulty hearing after using a Q-tip. - Cerumen was noted in her ears. - She is advised to flush her ears out using a camera device to ensure visibility. Assessment/Plan Problem List Items Addressed This Visit Mild intermittent asthma without complication (HCC) Relevant Medications promethazine-dextromethorphan (Phenergan-DM) 6.25-15 MG/5ML syrup Acute bronchitis with wheezing - Primary Relevant Medications azithromycin (Zithromax) 250 MG tablet Viral upper respiratory tract infection Relevant Medications promethazine-dextromethorphan (Phenergan-DM) 6.25-15 MG/5ML syrup Other Visit Diagnoses Non-recurrent acute serous otitis media of right ear Relevant Medications methylPREDNISolone (Medrol Dospak) 4 MG tablets Health Maintenance Due Topic Date Due Influenza Vaccine (1) 11/11/2024 documented in this encounterLakeland Regional [id number] History of Present illness Narrative* Susie Rodriges NP - 11/20/2024 1:30 PM EDT Reason for Appointment: Patient ID: Adina Martinez is a 29 y.o. female who presents for Follow-up Patient presents today for Acute Visit. MEDICATIONS Current Outpatient Medications Medication Instructions albuterol HFA 90 mcg/act inhaler 2 puffs, Every 4 hours PRN Albuterol-Budesonide (Airsupra) 90-80 MCG/ACT aerosol 2 puffs, Inhalation, Every 4 hours PRN levothyroxine (SYNTHROID) 112 mcg, Oral, Daily before breakfast metFORMIN XR (GLUCOPHAGE-XR) 1,000 mg, Oral, Daily with evening meal, Do not crush, chew, or split. metoclopramide (REGLAN) 5 mg, Every 6 hours PRN metoprolol succinate XL (Toprol-XL) 50 MG 24 hr tablet TAKE 1 TABLET (50 MG) BY MOUTH EVERY DAY DO NOT CRUSH OR CHEW pantoprazole (PROTONIX) 40 mg, Daily promethazine-dextromethorphan (Phenergan-DM) 6.25-15 MG/5ML syrup 5 mL, Oral, Every 6 hours PRN ALLERGIES Allergies Allergen Reactions Bee Venom Hives and Anaphylaxis Raspberry Rash and Anaphylaxis Other Unknown Food Rash Pt allergic to berries PROBLEMS Active Ambulatory Problems Diagnosis Date Noted Morbid (severe) obesity due to excess calories ([facility]) 01/10/2020 Acquired hypothyroidism 10/11/2019 Anxiety disorder 08/02/2022 Morbid obesity ([facility]) 10/11/2019 Personal history of COVID-19 08/02/2022 Tear [...] 07/08/2024 Encounter for Rh blood typing 10/14/2024 Cervical radiculopathy 11/04/2024 Resolved Ambulatory Problems Diagnosis Date Noted Frontal [...] POTS (postural orthostatic tachycardia syndrome) Thyroid disease [facility]- thyroid ultrasound, trouble swallowing - 12/30/21 Trouble swallowing 12/30/2021 Vitamin D deficiency Social History Tobacco Use Smoking status: Never Smokeless tobacco: Never Substance Use Topics Alcohol use: Yes Comment: 1-2 drinks of alcohol less than mthly Drug use: Never FAMILY HISTORY Family History Problem Relation Name Age of Onset Mental illness Mother [employer] Super[employer] Miscarriages / Stillbirths Mother [employer] Supervisor Hypertension Father Leonardo Clinker Cancer Paternal Grandfather Leonardo Cancer Paternal Grandmother Kathie SURGICAL HISTORY Past Surgical History: Procedure Laterality Date CHOLECYSTECTOMY 04-06-23 KNEE CARTILAGE SURGERY Right 12/2019 knee meniscus. TOTAL KNEE ARTHROPLASTY Right 12/20/2019 MTP WISDOM TOOTH EXTRACTION 2013 REVIEW OF SYSTEMS Review of Systems: Review of Systems Constitutional: Negative. HENT: Negative. Eyes: Negative. Respiratory: Negative. Cardiovascular: Negative. Gastrointestinal: Positive for abdominal distention. Genitourinary: Positive for menstrual problem and pelvic pain. Abdominal bloating, irregular menses AUB and heavy cycles Musculoskeletal: Negative. Skin: Negative. Neurological: Negative. All other systems reviewed and are negative. Hematological: Negative. Endocrine: Negative. Allergic/Immunologic: Negative. OBJECTIVE Objective: Physical Exam Constitutional: Appearance: Normal appearance. Adina is well-developed. Cardiovascular: Rate and Rhythm: Normal rate and regular rhythm. Pulmonary: Effort: Pulmonary effort is normal. Breath sounds: Normal breath sounds. Abdominal: General: Bowel sounds are normal. There is no distension. Palpations: Abdomen is soft. Tenderness: There is abdominal tenderness. There is no guarding or rebound. Comments: Tenderness with palpation to low abdomen without distention or guarding. Musculoskeletal: General: No swelling. Normal range of motion. Right lower leg: No edema. Left lower leg: No edema. Neurological: Mental Status: Adina is alert and oriented to person, place, and time. Skin: General: Skin is warm and dry. Psychiatric: Mood and Affect: Mood normal. Behavior: Behavior normal. Vitals and nursing note reviewed. Exam conducted with a fisheries diver present. Vitals: Estimated body mass index is 43.33 kg/m as calculated from the following: Height as of 10/24/24: 5' 8 . Weight as of this encounter: 285 lb. BP: 118/80 Patient's last menstrual period was 10/06/2024 (exact date). ASSESSMENT & PLAN ICD-10-CM 1. Pelvic pain in female R10.2 2. Dysfunctional uterine bleeding N93.8 3. Menorrhagia with irregular cycle N92.1 Patient reports abdominal pain and bloating. Complaints of Dysfunctional uterine bleeding, heavy menstrual cycles and continued pelvic pain. Ultrasound completed on 11/15/24 and appears within normal limits. She reports complete GI workup to include colonoscopy without acute findings. Recommend moving forward with diagnostic lap procedure with Dr. Keane for complete evaluation given continued pelvic pain and bloating. Documented by Susie Rodriges NP on behalf of: Susie Rodriges NP documented in this encounterLakeland Regional [id number] NoteHNO ID: [id number] Author: LUDY FABIAN MA Service: ? Author Type: Remote Sensing Analyst Type: Progress Notes Filed: 11/05/2024 11:33 Note Text: Glucose - SIBO Hydrogen Breath Test November 05, 2024 Referring Physician: Irma Nava APRN.EMBROIDERY PATTERNMAKER Indication Nausea and Vomiting Prep: 4 weeks following: none 1 hour before: No Smoking Day of test - No gum chewing Baseline Hydrogen: 16 Methane: 9 Ludy Darbyo MA Time given: 8:40am 50 grams / [...] Test Results (not given to patient): [facility] History of Present illness Narrative* Ludy Fabian MA - 11/05/2024 11:25 AM EDT Glucose - SIBO Hydrogen Breath Test November 05, 2024 Referring Physician: Irma Nava APRN.EMBROIDERY PATTERNMAKER Indication Nausea and Vomiting Prep: 4 weeks following: none 1 hour before: No Smoking Day of test - No gum chewing Baseline Hydrogen: 16 Methane: 9 Ludy Fabian MA Time given: 8:40am 50 grams / 50 grams Clock time start: 8:45am 15 minutes Hydrogen: 30 Methane: 9 Ludy Restberonicao MA 30 minutes Hydrogen: 22 Methane: 11 [...] Pending Ludy Fabian MA documented [facility] History of Present illness Narrative* DARIN Mclean - 10/24/2024 12:40 PM EDT Images from the original note [...] 5 MG tablet Take by mouth HYDROcodone-acetaminophen ([place]) 5-325 MG tablet 1 tablet, Every 4 [...] Topic Date Due Influenza Vaccine (1) 11/11/2024 * DARIN Mclean - 10/24/2024 12:40 PM EDT Images from the original note were not included. Adina Martinez is a 29 y.o. female presents with chief complaint of No chief complaint on file. HPI: Flowsheet Row Patient Outreach from 10/22/2024 in [facility] with Jimena Williamson LPN Hospital Information ED, Hospital or Custodial Facility Discharge? ED Patient has been contacted within 2 days of being seen in the ED Yes Diagnosis Cervical Radiculopathy Discharge Date 10/22/24 Discharged To: Home Setting Discharge Hospital [facility] Engagement Admission Date 10/21/24 Medications Discharge medications [...] and into her back. She has considered massagetherapy as a potential treatment option. She received two injections during her ER visit, one upon a rrival and another before discharge, which left her feeling drowsy. She has regained mobility in her arm, which was not possible on Monday. She has been taking the prescribed muscle relaxant and painmedication, but does not feel the need for [...] unable to obtain her blood type from [facility], despite having undergone two surgeries at these facilities. Her oncologist has recommended that she get a bracelet made with all her medical information due to her POTS diagnosis, as there is a concern that she may faint and be mistaken for someone without a medical history. Diet: She reports maintaining a healthy diet. PAST SURGICAL HISTORY: - Two unspecified surgeries at [facility]. MEDICATIONS: Current Outpatient Medications Medication Instructions albuterol HFA 90 mcg/act inhaler 2 puffs, Every 4 hours PRN Albuterol-Budesonide (Airsupra) 90-80 MCG/ACT aerosol 2 puffs, Inhalation, Every 4 hours PRN HYDROcodone-acetaminophen ([place]em) 5-325 MG tablet 1 tablet, Every 4 [...] despite working out and eating healthy. - Independent Driver increased metformin dosage. - Possibility of using Ozempic discussed but will be considered later. - Advised to continue increased metformin dosage and follow up with glass novelty maker. 3. Blood type determination. - Requested printout of blood type information to take to [facility]. - Order for blood type determination placed on 10/14/2024. Assessment/Plan Problem List Items Addressed This Visit Cervical radiculopathy - Primary Health Maintenance Due Topic Date Due Influenza Vaccine (1) 11/11/2024 documented in this encounterLakeland Regional [id number] History of Present illness Narrative* Lori Lyles LPN - 10/23/2024 3:00 PM EDT Reason for Appointment: Patient ID: Adina Martinez is a 29 y.o. female who presents for Well Women Visit Patient presents today for Annual Exam. MEDICATIONS Current Outpatient Medications Medication Instructions albuterol HFA 90 mcg/act inhaler 2 puffs, Every 4 hours PRN Albuterol-Budesonide (Airsupra) 90-80 MCG/ACT aerosol 2 puffs, Inhalation, Every 4 hours PRN cyclobenzaprine (Flexeril) 5 MG tablet Take by mouth HYDROcodone-acetaminophen ([place]em) 5-325 MG tablet 1 tablet, Every 4 [...] Morbid (severe) obesity due to excess calories ([facility]) 01/10/2020 Acquired hypothyroidism 10/11/2019 Anxiety disorder 08/02/2022 Morbid obesity ([facility]) 10/11/2019 Personal history of COVID-19 08/02/2022 Tear of lateral meniscus of knee 08/02/2022 Other post infection and related fatigue syndromes 08/02/2022 Abdominal pain 09/29/2022 Periumbilical mass 11/22/2022 Mild intermittent asthma without complication ([facility]) 12/27/2022 Nausea 12/27/2022 BMI 38.0-38.9,adult 02/14/2023 History [...] POTS (postural orthostatic tachycardia syndrome) Thyroid disease [facility]- thyroid ultrasound, trouble swallowing - 12/30/21 Trouble swallowing 12/30/2021 Vitamin D deficiency Social History Tobacco Use Smoking status: Never Smokeless tobacco: Never Substance Use Topics Alcohol use: Yes Comment: 1-2 drinks of alcohol less than mthly Drug use: Never FAMILY HISTORY Family History Problem Relation Name Age of Onset Mental illness Mother [employer] Supervisor Miscarriages / Stillbirths Mother [employer] Supervisor Hypertension Father Leonardo Martinez Cancer Paternal Grandfather [...] nursing note reviewed. Exam conducted with a fisheries diver present. Vitals: Estimated body mass index is [...] have them. Patient canalso view results via [employer]. I reinforced importance of condom use for [...] exam unless needed otherwise. Documented by Lori yLles LPN on behalf of: Db Keane DO documented in this encounterLakeland Regional [id number] History of Present illness Narrative* DARIN Mclean - 10/14/2024 12:20 PM EDT [...] which led to a consultation with a stone repairer. This specialist referred her to a [facility]. She underwent an EGD and colonoscopy, [...] a tilt table test performed by her transition nurse, who initially suspected orthostatic hypotension. However, based on the tilt table results and her heart rate over the past year, he now believes she may have POTS. During the tilt table test, her blood pressure was recorded as 70/40. She was prescribed metoprolol 100 mg twice daily, which has been beneficial. Her transition nurse also advised her to monitor for reactive [...] 8 to 9. 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 - Union Representative advised to watch for reactive hypoglycemia. Assessment/Plan Problem List Items Addressed This Visit Preventative health care - Primary Health Maintenance Due Topic Date Due Influenza Vaccine (1) 11/11/2024 documented in this encounterLakeland Regional [id number] History of Present illness Narrative* Chato Bray Nuclear Tech - 09/24/2024 8:30 AM EDT RADIOLOGY SERVICE PROGRESS NOTE SERVICE DATE: 09/24/2024 [...] PATIENT PRESENTS WITH AN IMPLANTABLE OR ATTACHED CHEMICAL PROCESSOR: No CREATININE: Creatinine Date Value Ref Range [...] 8 ounces of water orally ADMINISTRATION TIME: 834 PATIENT DISCHARGED TO: Ambulatory patient, left [place] department area. Is this a therapy: No A Diagnostic radioactive procedure has taken place, with no further precautions necessary other than routine body substance precautions. More information regarding radiation safety can be found usingthis link: [email or web address] SIGNATURE: Prema Martinez PATIENT NAME: Adina Martinez DATE: September 24, 2024 TIME: 9:31 AM PAGER/CONTACT #: documented in this encounterFayette [facility]07-15-2025 NoteHNO ID: [id number] Author: CHATO RBAY Nuclear Tech Service: ? Author Type: Technologist [...] PATIENT PRESENTS WITH AN IMPLANTABLE OR ATTACHED CHEMICAL PROCESSOR: No CREATININE: Creatinine Date Value Ref Range [...] [address] PERFORMED: No IV SITE: [place] only - not applicable, oral or physician administered agents given to patient POST EXAM PIV STATUS: Not applicable PROCEDURE TYPE: NM GET: 0.86 mCi Tc99m SULFUR COLLOID was administered orally via 4 ounces of Egg Beaters,1 pieces of toast, 1 ounce of jelly with 8 ounces of water orally ADMINISTRATION TIME: 834 PATIENT DISCHARGED TO: Ambulatory patient, left [place] department area. Is this a therapy: No A Diagnostic radioactive procedure has taken place, with no further precautions necessary other than routine body substance precautions. More information regarding radiation safety can be found using this link: [email or web address] SIGNATURE: Chato Bray [employer] PATIENT NAME: Adina Martinez DATE: September 24, 2024 TIME: 9:31 AM PAGER/CONTACT #:[facility]07-03-2025 History of Present illness Narrative* Quique Vazquez MD - 09/12/2024 9:00 AM EDT HPI [...] at 42 kg/m , she works in [employer] for [employer] and [employer]. She reports no palpitations orthopnea PND no [...] Scribe Attestation By signing my name below, Nancy, Radha HarrisEula PENN , Scribe attest that this documentation has been prepared under the direction and in the presence of Quique Vazquez MD. Provider Attestation - Scribe documentation All medical record entries made by the Scribe were at my direction and personally dictated by me. Ihave reviewed the chart and agree that the record accurately reflects my personal performance of the history, physical exam, discussion and plan. documented in this [facility]Prem[facility] Work Phone: 1(254) 143-952607-03-2025 Instructions* Patient Instructions* Radha Hill LPN - 09/12/2024 [...] through Care Everywhere. * Heart Healthy Diet (Danish) documented in this encounterPrem[facility] Work Phone: 1(388) 334-734006-19-2025 History and physical note* Gene Parson MD - 08/29/2024 11:15 AM EDT HISTORY AND PHYSICAL Adina Martinez, 29 year [...] Mannie's Esophagus, image tube placement or cryo therapytreatment based on clinical findings. BASELINE BEHAVIOR: Calm [...] organomegaly. Sedation Plan: MAC Additional Comments: None Gene Parson MD [facility]06-19-2025 History and physical note* Gene Parson MD - 08/29/2024 11:15 AM EDT HISTORY AND PHYSICAL Adina Martinez, 29 year [...] Mannie's Esophagus, image tube placement or cryo therapytreatment based on clinical findings. BASELINE BEHAVIOR: Calm [...] organomegaly. Sedation Plan: MAC Additional Comments: None Gene Parson MD [facility] Nurse Note* Tasia El RN - 08/29/2024 11:08 AM EDT PRE OP LEARNING ASSESSMENT PROCEDURE/SURGERY: GI PROCEDURES: Colonoscopy and EGD READINESS TO LEARN COGNITIVE ABILITY: Alert and oriented MOTIVATION TO LEARN: Interested FAMILY SUPPORT: Unable to assess - Family not present PATIENT LEARNS BEST BY: Individual Instruction Verbal Instruction FACTORS AFFECTING LEARNING: None PHYSICAL LIMITATIONS AFFECTING LEARNING: None Electronically Signed By: Tasia El RN In Department: AMBULATORY SURGERY [facility]06-19-20[facility] Nurse Note* Tasia El RN - 08/29/2024 11:08 AM EDT PRE OP LEARNING ASSESSMENT PROCEDURE/SURGERY: GI PROCEDURES: Colonoscopy and EGD READINESS TO LEARN COGNITIVE ABILITY: Alert and oriented MOTIVATION TO LEARN: Interested FAMILY SUPPORT: Unable to assess - Family not present PATIENT LEARNS BEST BY: Individual Instruction Verbal Instruction FACTORS AFFECTING LEARNING: None PHYSICAL LIMITATIONS AFFECTING LEARNING: None Electronically Signed By: Tasia El RN In Department: AMBULATORY SURGERY documented in this encounterF[facility]06-04-2025 [facility]iology [facility] [place] [address] [place] [address] CT Scan Report Signed Patient: Adina Martinez MR#: [id number] : 1995 Acct:[id number] Age/Sex: 29 / F ADM Date: 5 Loc: CT Room: Type: [facility] Attending Dr: Linnea Hackett PA-C, Copies to: Linnea Hackett Pa-C~ Ordering Provider: Linnea Hackett Pa-C Date of Service: 08/14/24 CT/CT abdomen pelvis wo con: R10.32, R19.05 CT ABDOMEN AND PELVIS WITHOUT INTRAVENOUS CONTRAST: CLINICAL HISTORY: Periumbilical mass COMPARISON: CT abdomen pelvis from outside facility 02/14/2023 TECHNIQUE: Spiral images were obtained through the abdomen and pelvis without intravenous contrast.This CT exam was performed using one or more following dose reduction techniques: Automated exposure control, adjustment of the mA and/or kV according to patient size, or use of iterative reconstruction technique. FINDINGS: Lung Bases: [No focal opacity within the bases. Small hiatal hernia.] Organs:Liver, spleen, adrenals, kidneys, pancreas unremarkable. Negative for nephrolithiasis. No hydronephrosis. Prior cholecystectomy.[ GI: Small hiatal hernia. Ngqd-ln-xlydzbdi retained stool within the colon. Mild colonic [...] Miller M.D. 08/14/2024 11:03 AM Dictation Location: [facility]--23 Transcribed By: [facility] 08/14/24 1103 Dictated By: Meet Miller MD 08/14/24 1031 Signed By: 08/14/24 1103 [facility] Work Phone: [phone] 742-381504-28-2025 History of Present illness Narrative* DARIN Mclean 07/08/2024 11:00 AM EDT Images from the original note were not included. Adina Martinez is a 29 y.o. female presents with chief complaint of ER Follow- up and Abdominal Pain HPI: Flowsheet Row Office Visit from 07/08/2024 in [facility] with DARIN Mclean Hospital Information ED, Hospital or Custodial Facility Discharge? ED Patient has been contacted within 2 days of being seen in the ED Yes Diagnosis Stomach pain Discharge Date 06/21/24 Discharged To: Home Setting [facility] Eng[facility] Admission Date 06/21/24 Medications Discharge [...] episode of severe illness following a meal, initiallyattributing it to food poisoning. However, the symptoms [...] also reported. A scheduled appointment with a stone repairer is on 09/03/2024. Her father had advised her to go [facility] in hopes of getting an earlier appointment. However, they informedher that this could not be arranged through [...] all these symptoms started. She was in [place] and had a good time. For the most part, she felt well while she wasthere, although she did experience some pain here and there. Additionally, being out in the sun made her feel exhausted. She has been prescribed Reglan, Zofran, and omeprazole, but these medications have not provided significant relief. No dysuria was initially reported, but a recent development of a burning sensation during urinationis noted. Keflex was previously prescribed for a urinary tract infection. An echocardiogram was done on Monday through [facility] because a doctor diagnosed her with POTS [...] MCG (1000 UT) capsule 2 capsules, Daily Wjoxgwmjkqf-Jcunqdyyg-Xmeial (Trelegy Ellipta) 200-62.5-25 MCG/ACT aerosol powder 1 [...] to keep the upcoming appointment with the stone repairer on 09/03/2024 for furtherevaluation. 2. Urinary tract infection. - Reports a burning sensation during urination. - Urinalysis showed a significant bacterial count with normal urogenital antwan. - Previously prescribed Keflex, which did not alleviate symptoms. - Prescription for Macrobid will be sent to [facility] in [place] to target the urinary tract infection more specifically. 3. Postural Orthostatic Tachycardia Syndrome (POTS). - Diagnosed with POTS, contributing to symptoms of extreme fatigue, shortness of breath, and migraines. - Recent echocardiogram performed; scheduled for a tilt table test next to confirm the diagnosis. - Follow-up with the transition nurse next week. 4. Bruising. - Reports unexplained [...] display for this patient. documented in this encounterLakeland Regional [id number] History of Present illness Narrative* Quique Vazquez MD - 05/08/2024 9:40 AM EST Cardiology Consultation- New Consult Reason for referral: [...] She was evaluated by Dr. Mcfadden at [facility] couple years ago and had an [...] will obtain copy of the echocardiogram from [facility]. 2-morbid obesity, patient was advised on [...] my direction and personally dictated by me. Ihkatie reviewed the chart and agree that the record accurately reflects my personal performance of the history, physical exam, discussion and plan. documented in this [facility] Work Phone: 1(559) 370-158102-26-2025 Instructions* Patient Instructions* Irais Antoine LPN - 05/08/2024 9:40 AM EST Please bring all medicines, vitamins, and herbal supplements with you when you come to the office. Prescriptions will not be filled unless you are compliant with your follow up appointments or have a follow up appointment scheduled as per instruction of your physician. Refills should be requested at the time of your visit. [place] [facility] [place] Visit for results BMI was above normal measurement. Current weight: 130 kg (286 lb) Weight change since last visit (-) denotes wt loss 286 lbs Weight loss needed to achieve BMI 25: 121.9 Lbs Weight loss needed to achieve BMI 30: 89.1 Lbs Provided instructions on dietary changes. documented in this encounterPrem[facility] Work Phone: [phone]) 249-782302-07-2025 Telephone encounter Note* Telephone Encounter - DARIN Mclean - 04/19/2024 8:56 AM EST reviewed [facility] [id number] Miscellaneous Notes* Telephone Encounter - DARIN Mclean - 04/19/2024 8:56 AM EST reviewed * Telephone Encounter - DARIN Mclean - 04/18/2024 1:08 PM EST Please call patient blood work shows we need to increase thyroid medication, sent new dose to [facility] See in 3 months for follow up documented in this encounterNOPemiscot Memorial Health [id number] Telephone encounter Note* Telephone Encounter - DARIN Mclean - 04/18/2024 1:08 PM EST Please call patient blood work shows we need to increase thyroid medication, sent new dose to [facility] See in 3 months for follow up [facility] [id number] History of Present illness Narrative* DARIN Mclean - 04/16/2024 10:00 AM EST Images from the original note were not [...] to 140 or 150 during physical activity. Thishas been ongoing for approximately 3 months. She [...] there was evidence of growth in the pulmonarynodules. A follow-up imaging study is planned for [...] at night, describing it as a burning sensation.She has attempted dietary modifications, including gluten elimination [...] for allergy and genetic testing at [facility], but these were not completed. She has notdiscussed this with her oncologist. She has been monitoring her blood glucose levels due to rapid drops. She carries a nebulizer and 5 different inhalers with her at all times. She plans to discuss hormone testing with her glass novelty maker, as her mother suggested this could be [...] MCG (1000 UT) capsule 2 capsules, Daily Quzpgcmrkeq-Buqldggfh-Nybkhq (Trelegy Ellipta) 200-62.5-25 MCG/ACT aerosol powder 1 puff, Inhalation, Daily levothyroxine (Synthroid, Levoxyl) 100 MCG tablet TAKE 1 TABLET BY MOUTH EVERY MORNING; TAKE BEFOREMEALS methylPREDNISolone (Medrol Dospak) 4 MG tablets Follow [...] her ears. A referral to Cardiology at [facility] has been initiated. 2. Abdominal pain. [...] display for this patient. documented in this encounterLakeland Regional [id number] History of Present illness Narrative* DARIN Mclean - 01/18/2024 8:30 AM EST Images from the original note were not included. Adina Martinez is a 28 y.o. female presents with chief complaint of Follow-up HPI: History of Present Illness The patient is a 28-year-old female who presents for a follow-up visit. She was unable to attend her scheduled follow-up in 09/2023 due to unforeseen circumstances. She had a consultation in [place] yesterday where it was discovered that her uterus is approximately three times its normal size. She was advised to consult her glass novelty maker as this could be indicative of Polycystic Ovary Syndrome (PCOS) or another condition. 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 While these are often benign, there is a 1 to 10 percent chance of them developing into pancreatic cancer. Her doctor plans to discuss the preliminary reports with a case technician and will contact her to discuss [...] MCG (1000 UT) capsule 2 capsules, Daily Vhfscdlllwa-Ydhbiitts-Jcoake (Trelegy Ellipta) 200-62.5-25 MCG/ACT aerosol powder 1 puff, Inhalation, Daily levothyroxine (Synthroid, Levoxyl) 100 MCG tablet TAKE 1 TABLET BY MOUTH EVERY MORNING; TAKE BEFOREMEALS methylPREDNISolone (Medrol Dospak) 4 MG tablets Follow [...] be. She was advised to contact her glass novelty maker for further evaluation. Differential diagnosis includes Polycystic [...] 0.01 cm to 4 cm. A chest x- ray was performed, showing no evidence of acute [...] display for this patient. documented in this encounterLakeland Regional [id number] History of Present illness Narrative* DARIN Mclean - 01/08/2024 11:30 AM EDT Images from the original note were not included. Telehealth Encounter: Verbal consent was obtained from patient for Telehealth Services. Patient Location ([place]) Adina Martinez is a 28 y.o. female [...] down. She has been trying to alleviate thisby lying on her stomach or sitting up. [...] MCG (1000 UT) capsule 2 capsules, Daily Qyxjjbhtior-Lsocvcznm-Ujqvuv (Trelegy Ellipta) 200-62.5-25 MCG/ACT aerosol powder 1 puff, Inhalation, Daily levothyroxine (Synthroid, Levoxyl) 100 MCG tablet TAKE 1 TABLET BY MOUTH EVERY MORNING; TAKE BEFOREMEALS methylPREDNISolone (Medrol Dospak) 4 MG tablets Follow [...] over the past two weeks, including coughing upgreen phlegm and vomiting due to severe coughing. She tested negative for COVID-19 but has been exposed to RSV and pneumonia. An antibiotic regimen with Z-Stephan will be initiated to target the suspected mycoplasma bacteria. A cough medicine containing Phenergan will be prescribed to help suppress thecough and alleviate nausea. A round of steroids will also be initiated to reduce inflammation. Refills for the nebulizer, including albuterol, will be sent to [facility] in [place]. 2. Asthma. The patient has been using Trelegy, her regular inhaler, and a nebulizer but has run out of albuterol. She will continue using her current asthma medications, and albuterol will be called in for her nebulizer. 3. Hypoglycemia. The patient has been experiencing low blood sugar levels, particularly after physical activity. Shehas been monitoring her blood sugar regularly using [...] display for this patient. documented in this encounterLakeland Regional [id number] Hospital Discharge instructions Patient Education 12/06/2023 18:47:51 [...] Follow these instructions at home: Medicines Take buql-tdk-knoxzzl and prescription medicines only as told by [...] provider. Document Revised: 01/12/2023 Document Reviewed: 01/12/2023 [employer] Patient Education 2023 [place] Follow Up Care 12/06/2023 15:44:08 With:Moises Ewing Address:Unknown When:12/09/2023 18:27:27 With:Linnea HACKETT Address: [address] [phone] Business (1) When:Within 3 Day(s) [facility] 09-25-2024 NoteED Patient Education Note Pulmonary Medicine Nonspecific Chest [...] these instructions at home: Medicines ? Take vupk-eyo-oyssrzg and prescription medicines only as told by [...] were done. [facility] care provider[facility], when [...] ? Keep all follo (more content not included)...[facility] 12-06-2023 Evaluation + Plan noteExtracted from:Title:ED NoteAuthor:Juliet Mascorro, Julio Mascorro.Date:12/06/23 Chest pain (R07.9: Chest natasha n, unspecified) [...] Saturation PT & PTT Rapid COVID Antigen ([facility]) Saline Lock Insert Troponin 0 Hr. Troponin 1 Hr. XR Chest Single View [facility] 08-02-2024 Evaluation + Plan noteExtracted from:Title: ED NoteAuthor:Jhony SantosDate:10/13/23 Neck strain (S16.1XXA: Strai n of muscle, fascia and tendon at neck level, initial encounter) Pneumonia (J18.9: Pneumonia, unspecified organism) Orders: albuterol-ipratropium, 3 mL, Soln-Inh, Inhalation, Once, Stop date 10/13/23 8:08:00 EDT, STAT, Start date 10/13/23 8:08:00 EDT dextromethorphan-promethazine, 5 mL, Oral, q6hr for cough, 120 mL, Refill(s) 0, [facility]/pharmacy #[id number],173, cm, 10/13/23 7:45:00 EDT, Height/Length Dosing, 124.7, kg, 10/13/23 7:45:00 EDT, Weight Dosing doxycycline, 100 mg = 1 tab(s), Oral, BID, X 7 day(s), # 14 tab(s), Refills(s) 0, Pharmacy: [facility]/pharmacy #[id number], 173, cm, 10/13/23 7:45:00 EDT, Height/Length Dosing, 124.7, kg, 10/13/23 7:45:00 EDT, Weight Dosing methocarbamol, 750 mg = 1 tab(s), Oral, TID, X 7 day(s), # 21 tab(s), Refills(s) 0, Pharmacy: [facility]/pharmacy #[id number], 173, cm, 10/13/23 7:45:00 EDT, Height/Length Dosing, 124.7, kg, 10/13/23 7:45:00 EDT,Weight Dosing predniSONE, 3, Oral, Daily, # 15 tab(s), Refills(s) 0, Pharmacy: [facility]/pharmacy #[id number], 173, cm, 10/13/23 7:45:00 EDT, Height/Length Dosing, 124.7, kg, 10/13/23 7:45:00 EDT, Weight Dosing XR Chest 2 Views [facility] 08-02-2024 Hospital Discharge instructions Follow Up Care 10/13/2023 07:41:30 With:Linnea HACKETT Address: [place] [address] Business (1) When:Within 3 Day(s) [facility] 03-15-2024 Evaluation + Plan noteExtracted from:Title: ED NoteAuthor:Jean Bullard DO ADate:05/26/23 Acute URI (J06.9: Acute uppe r respiratory infection, unspecified) N&V (nausea and vomiting) (R11.2: Nausea with vomiting, unspecified) Orders: albuterol-ipratropium, 3 mL, Soln-Inh, Inhalation, Once, Stop date 05/25/23 23:23:00 EDT, STAT, Start date 05/25/23 23:23:00 EDT brompheniramine/dextromethorphan/PSE, 5 mL, Oral, QID for cold symptoms, 200 mL, Refill(s) 0, [facility]/pharmacy #[id number], 173, cm, 05/25/23 22:46:00 EDT, [...] q8hr, # 12 tab(s), Refills(s) 0, Pharmacy: [facility]/pharmacy #[id number], 173, cm, 05/25/23 22:46:00 EDT, Height/Length Dosing, 130.4, kg, 05/25/23 22:46:00 EDT, Weight Dosing Sodium Chloride 0.9% intravenous solution 1,000 mL, 1,000 mL, IV, 983.61 mL/hr, for 30 day(s), Stopdate 06/24/23 23:23:00 EDT, STAT, Start date 05/25/23 23:24:00 EDT, 61 minute(s), Total volume (mL): 1,000, 130.4 kg, 2.5, m2 B-Type Natriuretic Peptide Basic Metabolic Panel Beta hCG Qual CBC w/ Auto Diff Continuous Pulse Oximetry ECG 12 Lead Adult ED Cardiac Monitoring eGFR Group A Strep by PCR Influenza A&B Ag Oxygen Therapy PT & PTT Rapid COVID Antigen ([facility]) Rapid Strep w/rfx Saline Lock Insert Troponin 0 Hr. XR Chest Single View [facility]03-15-2024 Hospital Discharge instructions Patient Education 05/26/2023 01:33:30 Upper Respiratory Infection, Adult, Snlp-gi-Lqnn Upper Respiratory Infection, Adult An upper respiratory [...] medicines to help relieve symptoms, such as: Szxf-hxv-dshnuon cold medicines. Medicines to reduce coughing (cough [...] and other clear broths. General instructions Take oxbh-myw-ogzeref and prescription medicines only as told by [...] cannot use soap and water, use hand level designer. Avoid touching your mouth, face, eyes, or [...] get better within 7 10 days. Take unmr-hou-jyjnpoa and prescription medicines only as told by your doctor. This information is not intended to replace advice given to you by your health care provider. Make sure you discuss any questions you have with your health care provider. Document Revised: 09/29/2021 Document Reviewed: 09/29/2021 [employer] Patient Education 2022 [employer] 05/26/2023 01:33:30 Nausea and Vomiting, Adult, Ocrj-nd-Vzlg Nausea and Vomiting, Adult Nausea is feeling [...] fruit juice). ?Low-calorie sports drinks. Eat bland, bbly-sl-hrurhd foods in small amounts as you are able, such as: ?Bananas. ?Applesauce. ?Rice. ?Low-fat (lean) meats. ?[place]. ?Crackers. Avoid drinking fluids that have a lot of sugar or caffeine in them. This includes energy drinks, sports drinks, and soda. Avoid alcohol. Avoid spicy or fatty foods. General instructions Take rvxo-qyc-youavgv and prescription medicines only as told by your doctor. Drink enough fluid to keep your pee (urine) pale yellow. Wash your hands often with soap and water for at least 20 seconds. If you cannot use soap and water, use hand level designer. Make sure that everyone in your home [...] your doctor about eating and drinking. Take mktf-eco-dwejrvy and prescription medicines only as told by your doctor. Contact your doctor if your symptoms get worse or you have new symptoms. Keep all follow-up visits. This information is not intended to replace advice given to you by your health care provider. Make sure you discuss any questions you have with your health care provider. Document Revised: 09/03/2021 Document Reviewed: 09/03/2021 [employer] Patient Education 2022 [employer] Follow Up Care 05/25/2023 22:37:43 With:Linnea HACKETT Address: [address] [place] [address] [place] [address] Business (1) When:05/29/2023 Comments:You can use the Bromfed, Zofran every 6 hours as needed for cough, nausea and vomiting. Please follow-up with your primary care doctor in the next 2 to 3 days for further evaluation management. Please return to the ED for any new or worsening symptoms. [facility]02-06-2024 History of Present illness Narrative* DARIN Mclean - 04/18/2023 1:30 PM EST Telehealth Encounter: Verbal consent was obtained from patient for Telehealth Services. Patient Location ([place]) Adina Martinez is a 28 y.o. 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 Does pt see pulmonology? documented in this [facility]01-03-2024 Progress note* Result Encounter Note - Iveth Iyer NP - 03/15/2023 11:59 PM EST No change since cta on 12/26. Does pt see pulmonology? [facility] Work Phone: 1(350) 887-598012-14-2023 History of Present illness Narrative* Chapito Dean [...] 2023 TIME: 2:53 PM documented in this encounterF[facility]12[facility]-2023 History of Present illness Narrative* Osiris [...] 2023 TIME: 1:54 PM documented in this encounterFayette [facility] Hospital12-05-2023 Evaluation + Plan note Extracted from:Title:ED NoteAuthor:Héctor Christianson DODate:02/14/23 AP (abdominal pain) (R10.9: Unspecified abdominal pain) Orders: dicyclomine, 10 mg = 1 cap(s), Oral, QID, X 7 day(s), # 28 cap(s), Refills(s) 0, Pharmacy: [facility]/pharmacy #[id number], 173, cm, 02/14/23 2:34:00 EST, Height/Length Dosing, 119.3, kg, 02/14/23 2:34:00 EST, Weight Dosing famotidine, 20 mg = 1 tab(s), Oral, Daily, X 7 day(s), # 7 tab(s), Refills(s) 0, Pharmacy: [facility]/pharmacy #[id number], 173, cm, 02/14/23 2:34:00 EST, Height/Length Dosing, 119.3, kg, 02/14/23 2:34:00 EST, Weight Dosing HYDROmorphone, 0.5 mg = 0.5 mL, Injection, IV Push, Once, Stop date 02/14/23 3:41:00 EST, STAT, Start date 02/14/23 3:41:00 EST, 02/14/23 3:41:00 EST ketorolac, 15 mg = 1 mL, Injection, IV Push, Once, Stop date 02/14/23 2:39:00 EST, STAT, Start date02/14/23 2:39:00 EST, 02/14/23 2:39:00 EST morphine, 4 [...] Future Scheduled Tests Laboratory* Lipid Panel 02/22/22 [facility]12-05-2023 Hospital Discharge instructions Patient Education 02/14/2023 07:14:20 [...] Follow these instructions at home: Medicines Take uwql-rkf-jqtyjjy and prescription medicines only as told by [...] Watch your condition for any changes. Take xxws-hum-nxvigdt and prescription medicines only as told by [...] provider. Document Revised: 04/17/2020 Document Reviewed: 07/08/2019 [employer] Patient Education 2022 [employer] Follow Up Care 02/14/2023 02:28:51 With:Linena HACKETT Address: [address] [place], [place] [id number] Business (1) When:Within 3 Day(s) [facility]11-29-2023 Miscellaneous Notes* Telephone Encounter - Maddi Ochoa RN - 02/08/2023 11:29 AM EST Note and orders faxed as requested. Maddi Ochoa RN, BSN Specialty Bilingual Nanny * Telephone Encounter - Winsome Blanc - 02/06/2023 1:09 PM EST Adina Martinez('s) is calling Jacqueline Sharma MD today regarding Bilingual Nanny - Other (Need office note from 02/[address] Sharma) Anne Marie from Dr. Godwin's office called requesting the office note from 02/03 visit. The note needs to be completed. Once completed, the note will be faxed to [phone] Patient has been identified by name and birthdate. Requesting response back: [phone] (home) [phone] (cell) Winsome Blanc February 06, 2023 documented in this encounterFayette [facility] Hospital11-29-2023 History of Present illness Narrative* Jacqueline Sharma MD - 02/08/2023 10:24 AM EST This consult was requested by Dr. 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 HISTORY OF PRESENT ILLNESS: Ms. [...] resection. Pathology has been reviewed here [facility] without inability to determine a precise [...] DARIN Mclean, PA-C [address] [place] [address] Gabe Godwin [address] [place] [address] [facility] [address] documented [facility] History of Present illness Narrative* Leonardo [...] (directly reviewed) which was notable for a ~18u11kr mass in the right lower abdominal wall (deep to Scarpas) abutting the anterior sheath of the rectus muscle. She was taken to the OR in December 2022 for resection, per the operative report it was a piecemeal resection. 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 documented in [facility] Nurse Note* Brooke Garrett RN - 02/03/2023 7:55 AM EST Additional intake questions: Has the patient had fever, nausea, vomiting, diarrhea, constipation, fatigue for > 1 week? Yes, fatigue and migrains Does the patient have a decreased appetite? No Does patient want to see a X Ray Operator? No (yes to any of above refer patient to schedulers for dietitian appointment) ) Does patient have any new or increased numbness or tingling of extremities? No Is patient interested in fertility information? No Does patient need any prescription refills? No Does patient have an advanced directive in place? No, Patient referred to [facility] documented [facility] Hospital Discharge instructions Patient Education 12/26/2022 [...] Follow these instructions at home: Medicines Take achm-ijq-chaatqz and prescription medicines only as told by [...] (atelectasis). You may be given a medical unit secretary (incentive spirometer) to help exercise your lungs [...] provider. Document Revised: 04/02/2020 Document Reviewed: 04/02/2020 [employer] Patient Education 2022 [employer]. 12/26/2022 18:20:38 Nonspecific Chest Pain, Adult Nonspecific [...] Follow these instructions at home: Medicines Take lbdc-tlb-ieekrdb and prescription medicines only as told by [...] provider. Document Revised: 05/13/2021 Document Reviewed: 05/13/2021 [employer] Patient Education 2022 [employer]. Follow Up Care 12/26/2022 14:50:27 With:Linnea HACKETT Address: [place] [address] Business (1) When:12/29/2022 17:49:27 [facility]10-16-2023 Evaluation + Plan noteExtracted from: Title:ED NoteAuthor:Singh HILLMAN, JansenDate:12/26/22 Chest pain (R07.9: Chest natasha n, unspecified) [...] BID, # 20 tab(s), Refills(s) 0, Pharmacy: [facility]/pharmacy #[id number], 170, cm, 12/26/22 14:57:00 EDT, Height/Length Dosing, 115.4, kg, 12/26/22 14:57:00 EDT, Weight Dosing ondansetron, 4 mg = 2 mL, Injection, IV Push, Once, Stop date 12/26/22 15:05:00 EDT, STAT, Start date 12/26/22 15:05:00 EDT, 12/26/22 15:05:00 EDT Sodium Chloride 0.9% intravenous solution, 1,000 mL, Soln-IV, IV, Once, Stop date 12/26/22 15:05:00EDT, STAT, Start date 12/26/22 15:05:00 EDT, Infuse over 61, minute(s) Automated Diff Basic Metabolic Panel CBC w/ Auto Diff CTA Chest ED Cardiac Monitoring eGFR Hepatic Function Panel Lipase Level Oxygen Saturation Oxygen Therapy PT & PTT Saline Lock Insert Troponin 0 Hr. U Beta Hcg Qual Future Appointments Appointment Date:12/30/2022 03:00:00 PM Scheduled Provider:Gabe GODWIN MD Location:[facility] Appointment Type: Post Op 15 Future Scheduled Tests Laboratory* Lipid Panel 02/22/22 [facility]10-12-2023 NotePatient: ADINA MARTINEZ Age: 27 years Sex: Female : 1995 Associated Diagnoses: None Author: Gabe GODWIN MD Subjective no changes to H & PFBellevue HospitalComment on above:Result Comment: Electronically Signed By: Gabe GODWIN MD\.br\Date and Time Signed: 12/22/22 08:31 [id number]:127 [facility]09-29-2023 NoteChief Complaint consultation for abdominal pain/mass HPI Staff 27 year old female presents on consultation from Ngoc Hackett for abdominal pain/mass. Presented to [facility] ED 11/18 with complaint of right [...] patient had evaluation for abd pain at [facility] ED 3 weeks ago, abd/pelvic ct [...] 04/17/2020 Recorded SARS-CoV-2 (COVID-19) mRNA-1273 vaccine 03/20/2020 RecordedBluffton HospitalComment on above:Result Comment: Electronically Signed By: Gabe GODWIN MD\Date and Time Signed: 12/09/22 10:04 [id number] Hospital Discharge instructions Patient Education 10/14/2022 17:44:52 [...] your health care provider. Apply or take iard-lvq-lqfctip and prescription medicines only as told by [...] provider. Document Revised: 12/20/2020 Document Reviewed: 12/22/2020 Elsevier Patient Education 2022 [employer] Follow Up Care 10/14/2022 16:24:03 With:Linnea HACKETT Address: [address] [place] [id number] Business (1) When:10/17/2022 17:34:38 [facility]08-04-2023 Evaluation + Plan noteExtracted from: Title:ED NoteAuthor:Singh HILLMAN, JansenDate:10/14/22 Bee sting (T63.441A: Toxic e ffect of [...] day(s), # 15 tab(s), Refills(s) 0, Pharmacy: [facility]/pharmacy #[id number], 172, cm, 10/14/22 16:35:00 EDT, Height/Length Dosing, 122.5, kg, 10/14/22 16:35:00 EDT,Weight Dosing Future Scheduled Tests Laboratory* Lipid Panel 02/22/22 [facility]08-03-2023 Evaluation + Plan note Diagnostic Tests Pending * FSH and LH 10/13/22 * DHEAS 10/13/22 * DHEA 10/13/22 Future Scheduled Tests Laboratory* Lipid Panel 02/22/22 [facility]01-10-2023 Evaluation note* Encounter Date Diagnosis Assessment Notes Treatment Notes Treatment Clinical Notes Mar, Migraine without sta tus migrainosus, not intractable, unspecified migraine type (ICD-10 - G43.909) Pt received 60 mg IM toradol in office today. Pt tolerated well. Pt advised to follow migraine protocol. Avoid bright light and loud noise. Avoid screentime and heavy concentration. Rest and sleep asmuch as possible. Pt advised to take benadryl prn. F/u with pcp as needed. Pt informed of warning s/sx of worsening CLAUDIO that would indicate the need for immediate eval in ER. Pt understood and agreed to tx plan. Mar,Viral URI (ICD-10 - J06.9)Informed pt that testing was negative. Will treat [...] Pt understood and agreed to treatment plan. Mar,ough (ICD-10 - R05.9)covid and flu neg, see above. [employer] Other 12-13-2022 Evaluation + Plan note Future Scheduled Tests Laboratory* Lipid Panel 02/22/22 Radiology* NM Myocardial Spect Rest/Stress 1 Day 02/22/22 * Echo Transthoracic Complete 02/22/22 [facility]12-13-2022 Evaluation + Plan note Future Scheduled Tests Laboratory* Lipid Panel 02/22/22 [facility]10-25-2022 Evaluation + Plan noteExtracted from: Title:ED NoteAuthor:Héctor Christianson DO.Date:01/04/22 Anterior neck pain (M54.2: C ervicalgia) Orders: cyclobenzaprine, 10 mg = 1 tab(s), Oral, TID, PRN Muscle pain, # 20 tab(s), Refills(s) 0, Pharmacy:[facility]/pharmacy #[id number], 174, cm, 01/04/22 0:47:00 EDT, Height/Length Dosing, 121.7, kg, 01/04/22 0:47:00 EDT, Weight Dosing Automated Diff Basic Metabolic Panel CBC w/ Auto Diff CT Soft Tissue Neck w/ Contrast eGFR TSH With T4fr Reflex [facility]10-25-2022 Hospital Discharge instructions Patient Education 01/04/2022 02:49:57 [...] exercise. Managing pain, stiffness, and swelling Take psiz-pol-sywldoa and prescription medicines only as told by [...] 02/27/2006 Document Revised: 02/09/2018 Document Reviewed: 03/29/2017 [employer] Patient Education 2020 [employer]. Follow Up Care 01/04/2022 00:38:27 With:Linnea HACKETT Address: [place] [address] Business (1) When:Within 3 Day(s) [facility]09-16-2022 Hospital Discharge instructions Patient Education 11/26/2021 20:55:46 [...] Slowly return to your usual activities. Take kfvz-pjg-asgpxin and prescription medicines only as told by [...] 11/22/2001 Document Revised: 07/30/2018 Document Reviewed: 07/30/2018 [employer] Patient Education 2020 [employer]. 11/26/2021 20:55:46 Nonspecific Chest Pain, Adult Nonspecific [...] Follow these instructions at home: Medicines Take uehd-gcd-hidgdak and prescription medicines only as told by [...] 12/07/2005 Document Revised: 08/30/2018 Document Reviewed: 08/30/2018 [employer] Patient Education 2020 [employer]. 11/26/2021 20:55:46 Cough, Adult Cough, Adult Coughing [...] Follow these instructions at home: Medicines Take sjys-pup-tozjcpk and prescription medicines only as told by [...] of a condition that needs treatment. Take uzfg-oia-oxcynmy and prescription medicines only as told by [...] 08/26/2011 Document Revised: 03/18/2019 Document Reviewed: 03/18/2019 [employer] Patient Education 2019 [employer]. 11/26/2021 20:55:46 COVID-19: How to Protect Yourself and Others - [facility] COVID-19: How to Protect Yourself and Others Know how it spreads There is currently no vaccine to prevent coronavirus disease 2019 (COVID-19). The best way to prevent illness is to avoid being exposed to this virus. The virus is thought to spread mainly from kqmtvo-en-jhkgpb. ?Between people who are in close contact [...] are not readily available, use a hand level designer that contains at least 60% alcohol. Cover [...] at higher risk of getting very sick.www.cdc.gov/cor onavirus/2019-ncov/vzve-bkjml-iwplnnsdncn/aebabo-ll-quzlph-risk.html Cover your mouth and nose with a [...] available, clean your hands with a hand level designer that contains at least 60% alcohol. Clean and disinfect Clean AND disinfect frequently touched surfaces daily. This includes tables, doorknobs, light switches, countertops, handles, desks, phones, keyboards, toilets, faucets, and sinks. www.cdc.gov/coronav irus/2019-ncov/luaofzv-aahvrrb-xnzo/ygxnmbjwysmd-fywc-vyje.html If surfaces are dirty, clean them: Use [...] 06/25/2019 Document Revised: 09/19/2019 Document Reviewed: 09/19/2019 [employer] Patient Education 2020 [employer]. 11/26/2021 20:55:46 COVID-19 Frequently Asked Questions COVID-19 [...] the coronavirus come from? In February 2019, [employer] told the World Health Organization (WHO) of several cases of lung disease (human respiratory illness). These cases were linked to an open seafood and livestock market [facility]. The link to the seafood and livestock [...] and virus naming World Health Organization (WHO): www.who.int/emergencies/diseases/vjlnc-dushlatrcna-1824/technical-g uidance/whfiiv-lzw-arzgjhehgch-disease-(covid-2019)-xqm-seo-agpxp-rwlx-jdzhrp-hy Who is at risk for complications from [...] relieve his or her symptoms by using rlbp-bsq-eskjlry medicines that treat sneezing, coughing, and runny [...] water are not available, use alcohol-based hand level designer. Avoid touching your face, mouth, nose, or [...] Prevention (CDC): www.cdc.gov/coronavirus/2019-ncov/travelers/index.html World Health Organization (WHO): www.who.int/emergencies/diseases/ogyxl-tzpguawdtky-8940/travel-advice Know the risks and take action to [...] water are not available, use alcohol-based hand level designer. Cough or sneeze into a tissue, sleeve, [...] in hot, soapy water or use a board filler. Air-dry your dishes. Wash laundry in hot [...] Health Organization (WHO) Information and news updates: www.who.int/emergencies/diseases/qzzuw-oldjnjdrjas-4382 Coronavirus health topic: www.who.int/health-topics/coronavirus Questions and answers on COVID-19: www.who.int/news-room/q-a-detail/q-g-wassmxvkxgmdn Global tracker: who.[employer]Master.Diagnostic Hybrids [place] Academy of Pediatrics (AAP) Information for families: www.healthychildren.org/Danish/health-issues/conditions/chest-lungs/Pages /4744-Owvgj-Bsempvohmfr.aspx The coronavirus situation is changing rapidly. Check [...] 06/25/2019 Document Revised: 06/25/2019 Document Reviewed: 06/25/2019 [employer] Patient Education 2019 [employer] 11/26/2021 20:55:46 COVID-19 COVID-19 COVID-19 is a [...] to fight infection (immunocompromised). Live in a jail or long-term care facility. Have a long-term [...] managed at home with rest, fluids, and sqbg-xvs-tlhwykv medicines. Treatment for a serious infection usually [...] are safe for you. General instructions Take wsro-hpf-roftobg and prescription medicines only as told by [...] high-risk areas and travel restrictions, check the [facility] travel website: wwwnc.cdc.gov/travel/notices If you live in, or must travel to, an area where COVID-19 is a risk, take precautions to avoid infection. ?Stay away from people who are sick. ?Wash your hands often with soap and water for 20 seconds. If soap and water are not available, usean alcohol-based hand level designer. ?Avoid touching your mouth, face, eyes, or [...] water are not available, use alcohol-based hand level designer. Stay away from other members of your [...] have a weak immunity, live in a jail, or have chronic disease. There is no [...] 04/04/2019 Document Revised: 07/25/2019 Document Reviewed: 04/04/2019 Elsevier Patient Education 2020 Elsevier Inc. Follow Up Care 11/26/2021 18:05:35 With:Nickolas Isaacs Address: [address] [place] [id number] [facility] (1) When:11/29/2021 20:25:56 Comments:Follow-up with your primary care provider in 3 to 5 days. If symptoms worsen, do not improve, or new symptoms arise please report back to emergency department for further evaluation. [facility]09-15-2022 Hospital Discharge instructions Patient Education 11/24/2021 23:34:54 Shortness of Breath, Adult, Ghvo-jv-Nniu Shortness of Breath, Adult Shortness of breath [...] Slowly return to your normal activities. Take phsf-pjp-scqkiup and prescription medicines only as told by [...] 08/15/2008 Document Revised: 07/30/2018 Document Reviewed: 07/30/2018 [employer] Patient Education 2020 [employer]. 11/24/2021 23:34:54 Nonspecific Chest Pain, Adult, Sjcc-ma-Bxyn Nonspecific Chest Pain Chest pain can be [...] Follow these instructions at home: Medicines Take pvon-dfu-fhpqinv and prescription medicines only as told by [...] ?Eating a heart-healthy diet. A diet and livestock nutritionist (dietitian) can help you to learn healthy [...] 08/15/2008 Document Revised: 08/30/2018 Document Reviewed: 08/30/2018 [employer] Patient Education 2019 [employer]. 11/24/2021 23:34:54 COVID-19: How to Protect Yourself and Others - [facility] COVID-19: How to Protect Yourself and Others Know how it spreads There is currently no vaccine to prevent coronavirus disease 2019 (COVID-19). The best way to prevent illness is to avoid being exposed to this virus. The virus is thought to spread mainly from wpctos-km-iljipl. ?Between people who are in close contact [...] are not readily available, use a hand level designer that contains at least 60% alcohol. Cover [...] at higher risk of getting very sick.www.cdc.gov/cor onavirus/2019-ncov/giey-otyoq-yairtwfrvpi/caenky-gs-efsoyy-risk.html Cover your mouth and nose with a [...] available, clean your hands with a hand level designer that contains at least 60% alcohol. Clean and disinfect Clean AND disinfect frequently touched surfaces daily. This includes tables, doorknobs, light switches, countertops, handles, desks, phones, keyboards, toilets, faucets, and sinks. www.cdc.gov/coronav irus/2019-ncov/xnupxus-sgsrjsd-rpcr/ikaarzkzdzrs-alcl-vnes.html If surfaces are dirty, clean them: Use [...] 06/25/2019 Document Revised: 09/19/2019 Document Reviewed: 09/19/2019 Elsevier Patient Education 2020 [employer]. 11/24/2021 23:34:54 COVID-19 Frequently Asked Questions COVID-19 [...] the coronavirus come from? In February 2019, [employer] told the World Health Organization (WHO) of several cases of lung disease (human respiratory illness). These cases were linked to an open seafood and livestock market in the city of [facility]. The link to the seafood and livestock [...] and virus naming World Health Organization (WHO): www.who.int/emergencies/diseases/fiteh-pvihqwhvltz-6796/technical-g uidance/mfhgyt-xco-ipbzqdkaecu-disease-(covid-2019)-ueb-dgq-iyohi-szgf-hmyoxj-ex Who is at risk for complications from [...] relieve his or her symptoms by using vett-bfd-myczzdh medicines that treat sneezing, coughing, and runny [...] water are not available, use alcohol-based hand level designer. Avoid touching your face, mouth, nose, or [...] Prevention (CDC): www.cdc.gov/coronavirus/2019-ncov/travelers/index.html World Health Organization (WHO): www.who.int/emergencies/diseases/cklfr-adwnzxfjypk-3266/travel-advice Know the risks and take action to [...] water are not available, use alcohol-based hand level designer. Cough or sneeze into a tissue, sleeve, [...] in hot, soapy water or use a board filler. Air-dry your dishes. Wash laundry in hot [...] Health Organization (WHO) Information and news updates: www.who.int/emergencies/diseases/jpdmg-cteykldxhjx-6995 Coronavirus health topic: www.who.int/health-topics/coronavirus Questions and answers on COVID-19: www.who.int/news-room/q-a-detail/e-m-pnugsyviyzbcg Global tracker: who.AdMaster.Diagnostic Hybrids [place] Academy [employer] Pediatrics (AAP) Information for families: www.healthychildren.org/Danish/health-issues/conditions/chest-lungs/Pages /8183-Ibdcw-Jepdspqaymw.aspx The coronavirus situation is changing rapidly. Check [...] 06/25/2019 Document Revised: 06/25/2019 Document Reviewed: 06/25/2019 [employer] Patient Education 2020 [employer] 11/24/2021 23:34:54 COVID-19 COVID-19 COVID-19 is [...] to fight infection (immunocompromised). Live in a jail or long-term care facility. Have a long-term [...] managed at home with rest, fluids, and zvpn-pjt-sviurua medicines. Treatment for a serious infection usually [...] are safe for you. General instructions Take yafz-bcl-ypctapf and prescription medicines only as told by [...] water are not available, usean alcohol-based hand level designer. ?Avoid touching your mouth, face, eyes, or [...] water are not available, use alcohol-based hand level designer. Stay away from other members of your [...] have a weak immunity, live in a jail, or have chronic disease. There is no [...] 04/04/2019 Document Revised: 07/25/2019 Document Reviewed: 04/04/2019 [employer] Patient Education 2019 [employer]. Follow Up Care 11/24/2021 21:32:05 With:Nickolas Isaacs Address: [address] [place] [address] [place] [id number] Business (1) When:11/27/2021 Comments:Follow-up with your primary care provider in 3 to 5 days. If symptoms worsen, do not improve, or new symptoms arise please report back to emergency department for further evaluation. Continue to takeyour inhaler and nausea medication, as well as Tylenol and ibuprofen to deal with your symptoms. [facility]09-14-2022 Evaluation + Plan noteExtracted from: Title:ED NoteAuthor:Paulie HILLMAN, Laurent JuradoDate:11/24/21 COVID (U07.1: COVID-19) Dyspnea (R06.00: Dyspnea, unspecified) [...] day(s), # 20 tab(s), Refills(s) 0, Pharmacy: [facility], 172.7, cm, 11/24/21 21:47:00 EDT, Height/Length Dosing, 120.5, kg, 09/14/22 21:47:00 EDT, Weight Dosing Automated Diff Basic Metabolic Panel CBC w/ Auto Diff ED Cardiac Monitoring eGFR Oxygen Saturation PT & PTT Saline Lock Insert Troponin 0 Hr. Troponin 3 Hr. Troponin 6 Hr. Troponin 9 Hr. XR Chest Single View [facility]09-13-2022 Evaluation note* Encounter Date Diagnosis Assessment Notes Treatment Notes Treatment Clinical Notes Nov, Contact with and (kelley spected) exposure to covid-19 (ICD-10 - Z20.822) covid pos, see above. Nov,OVID (ICD-10 - U07.1)Informed pt of POS covid test. They are to contact the covid employee hotline regarding quarantine and RTW instructions. Pt understood and agreed to tx plan. [employer] Other [id number] Evaluation + Plan note Future Appointments Appointment [...] Complete 03/31/22 * ECG Stress Exercise 03/31/22 [facility]2020 Evaluation + Plan note Future Appointments Appointment Date:03/31/2022 01:00:00 PM Scheduled Provider: Location:FT.[facility] Appointment Type:CV Echo (FT) Appointment Date:03/31/2022 02:45:00 PM Scheduled Provider: Location:.[facility] Appointment Type:CV Stress (FT) Appointment Date:04/04/2022 03:45:00 PM Scheduled Provider:Leonardo Bates MD Location:[facility] Appointment Type:Cardiology Follow Up (FT) Future Scheduled Tests Laboratory* Lipid Panel 02/22/22 Radiology* Echo Transthoracic Complete 03/31/22 * ECG [facility] Appointment Date:03/24/2022 10:45:00 AM Scheduled Provider: Location:.[facility] Appointment Type:NM Myocard Spect Multi Rest/Stress-Res Appointment Date:03/24/2022 11:45:00 AM Scheduled Provider: [facility] Type:NM Myocard Spect Multi Rest/Stress - R Appointment Date:03/31/2022 08:30:00 AM Scheduled Provider: Location:.[facility] Appointment Type:NM Myocard Spect MultiRest/Stress-Stre Appointment Date:03/31/2022 09:30:00 AM Scheduled Provider: [facility] App[facility] Type:NM Myocard Spect Multi Rest/Stress - S Appointment Date:03/31/2022 01:00:00 PM Scheduled Provider: [facility] Type:CV Echo (FT) Appointment Date:04/04/2022 03:45:00 PM Scheduled Provider:Leoanrdo Bates MD Location:.[facility] Appointment Type:Cardiology Follow Up (FT) Future Scheduled Tests Laboratory* Lipid Panel 02/22/22 Radiology* NM Myocardial Spect Rest/Stress 1 Day 02/22/22 * Echo Transthoracic Complete 03/31/22 * NM Myocardial Spect Rest/Stress 2 Day [facility]24/22 [facility] Future Appointments Appointment Date:12/12/2022 02:30:00 PM Scheduled Provider: Location:[facility] Appointment Type:Surgical PAT FT Appointment Date:12/22/2022 09:00:00 AM Scheduled Provider: Location:[facility] Appointment Type:Surgery FT Future Scheduled Tests Laboratory* Lipid Panel 02/22/22 [facility] [place] Evaluation noteNo assessment information available [facility] Work Phone: Evaluation note* Diagnosis 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, soft tissue, and skin [facility] Diagnosis History of sarcoma of soft tissue- Primary Personal history of malignant neoplasm of other site Family history of cancer Family history of unspecified malignant neoplasm [facility] Diagnosis Intractable chronic migraine without aura and without status migrainosus (CMS/HCC)- Primary 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, site unspecified documented in [facility] encounter [facility] Healthcare[facility]* Diagnosis Soft tissue tumor Neoplasm of unspecified nature of bone, soft tissue, and skin [facility]* Diagnosis History of sarcoma of soft tissue Personal history of malignant neoplasm of other site Family history of cancer Family history of unspecified malignant neoplasm documented in [facility] Diagnosis Acquired hypothyroidism (CMS/HCC)- Primary Unspecified [...] of right ear documented in this encounter [facility]Evaluation [facility]* Diagnosis Acquired hypothyroidism (CMS/HCC)- Primary [...] without complication (CMS/HCC) documented in this encounter [facility]* [...] Primary Unspecified hypothyroidism documented in this encounter [facility] HealthcareEvaluation note* Diagnosis Postural orthostatic tachycardia syndrome (POTS)- Primary Syncope, unspecified syncope type Hypothyroidism, unspecified type BMI 40.0-44.9, adult (Multi) Never smoked tobacco Morbid obesity (Multi) Morbid obesity documented in this encounter [facility] Work Phone: Evaluation note* Diagnosis Acquired [...] Abdominal pain, epigastric [facility] Syncope, unspecified syncope type documented in this encounter [facility] Work Phone: Evaluation note* Diagnosis Nausea and vomiting, unspecified vomiting type Abdominal bloating Flatulence, eructation, and gas pain Epigastric pain Abdominal pain, epigastric [facility] Diagnosis POTS (postural orthostatic tachycardia syndrome) Unspecified tachycardia Postural orthostatic tachycardia syndrome (POTS) Acquired hypothyroidism Unspecified hypothyroidism Type 2 diabetes mellitus without complication, without long-term current use of insulin Never smoked tobacco BMI 40.0-44.9, adult (Multi) documented in this encounter [facility] Work Phone: Evaluation note* Diagnosis Dyspepsia Dyspepsia and other specified disorders of function of stomach documented [facility] Diagnosis Nausea and vomiting, unspecified vomiting type- Primary documented [facility] Diagnosis Acquired hypothyroidism- Primary Unspecified hypothyroidism [...] or radiculitis nos documented in this encounter [facility]* Diagnosis Nausea and vomiting, unspecified vomiting type documented [facility] Diagnosis Bloating- Primary Flatulence, eructation, and gas pain documented [facility]* Diagnosis Acquired hypothyroidism- Primary Unspecified hypothyroidism [...] medical examination at a health care facility Pelvic pain in female- Primary Unspecified symptom associated with female genital organs Dysfunctional uterine bleeding Other disorder of menstruation and other abnormal bleeding from female genital tract Menorrhagia with irregular cycle documented in this encounter [facility]* Diagnosis Acquired hypothyroidism- Primary Unspecified hypothyroidism Generalized anxiety disorder Periumbilical abdominal pain Abdominal [...] recurrent frontal sinusitis Generalized anxiety disorder- Primary Acquired hypothyroidism Unspecified hypothyroidism Intractable chronic migraine without aura and without status migrainosus Sarcoma (HCC) 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, site unspecified Preventative health care- Primary Routine general medical examination at a health care facility Acute bronchitis with wheezing- Primary Non-recurrent acute serous otitis media of right ear Viral upper respiratory tract infection Acute upper respiratory infections of unspecified site Mild intermittent asthma without complication (HCC) documented in this encounter [facility] HealthcareEvaluation [facility]* Diagnosis Acquired hypothyroidism- Primary Unspecified hypothyroidism Generalized anxiety disorder Periumbilical abdominal pain Abdominal [...] recurrent frontal sinusitis Generalized anxiety disorder- Primary Acquired hypothyroidism Unspecified hypothyroidism Intractable chronic migraine without aura and without status migrainosus Sarcoma (HCC) 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, site unspecified Preventative health care- Primary Routine general medical examination at a health care facility Pre-op evaluation Pelvic pain in female Unspecified symptom associated with female genital organs Dysfunctional uterine bleeding Other disorder of menstruation and other abnormal bleeding from female genital tract Menorrhagia with irregular cycle documented in this encounter [facility] HealthcareHistory general Narrative - Reported* Type Description Date Medical History [facility] [employer] Other Hospital course Narrative No data available for this section [facility] No data available for this section [facility] Additional Instructions 1. No driving if taking narcotic pain medication. 2. No lifting more than 20 pounds for 2 weeks. 3. [facility] Work Phone: Progress note No data available for this section [facility]Reason [facility] (narrative)* Consultation (Routine) - Pending ReviewSpecialtyDiagnoses / ProceduresReferred By Contact Referred To ContactNeurology Diagnoses Intractable chronic migraine without aura and without status migrainosus (CMS/HCC) Sarcoma (CMS/HCC) Procedures [place] OFFICE[facility] 60 MINUTES Linnea Hackett PA [address] [place] [address] Deon Parra MD [address] [place] [address] Referral IDStatusReasonStart DateExpiration DateVisits RequestedVisits [id number] Review Special[facility] for [facility]ative)No reason for referral information [facility] Work Phone: Reason for visit Narrative* CV Imaging (Routine) - AuthorizedSpecialtyDiagnoses / ProceduresReferred By ContactReferred To ContactCardiology Diagnoses Syncope, unspecified syncope type Procedures Transthoracic Echo Complete [place] ECHO TTHRC R-T 2D W/WOM-MODE COMPL SPEC&COLR D Quique Vazquez MD [address] [facility] [place] [address] Phone: tel: fax: Referral IDStatusReasonStart DateExpiration DateVisits RequestedVisits [id number] Perform Procedure / [facility] Work Phone: Reason for visit Narrative* Outpatient Procedure (Routine) - ClosedSpecialtyDiagnoses / ProceduresReferred By ContactReferred To Contact[facility] Diagnoses Nausea and vomiting, unspecified vomiting type Abdominal bloating Epigastric pain Procedures COLONOSCOPY DIAGNOSTIC COLONOSCOPY FLX DX W/COLLJ SPEC WHEN PFRMD Irma Nava APRN.EMBROIDERY PATTERNMAKER [address] [place] [address] Phone: tel: fax: [facility] [address] [place] [address] Referral IDStatusReasonStart DateExpiration DateVisits RequestedVisits [id number] Auto-Generated Referral [facility] Narrative* Outpatient Procedure (Routine) - ClosedSpecialtyDiagnoses / ProceduresReferred By ContactReferred To Contact [facility] Diagnoses Nausea and vomiting, unspecified vomiting type Procedures BREATH TEST GLUCOSE BREATH HYDROGEN/METHANE TEST Pack, [employer].EMBROIDERY PATTERNMAKER [address] [place] [address] Phone: tel: fax: [facility] [address] [place] [address] Referral [facility]Status[facility] DateExpiration DateVisits RequestedVisits [id number] Auto-Generated Referral / [facility] Summary Purpose Family History Relationship Condition Age at Onset Recorded Date/T soren father Hypertension Unknown Not SpecifiedHodgkin lymphomaUnknownNot SpecifiedAlive and wellUnknownNot SpecifiedMalignant neoplasm of ovaryUnknownNot SpecifiedHepatic cirrhosisUnknown Relationship Condition Age at Onset Recorded Date/T soren father Hypertension Unknown paternal grandfatherHodgkin lymphomaUnknownmotherAlive and wellUnknownpaternal grandmotherMalignant neoplasm of ovaryUnknownmaternal grandmotherHepatic cirrhosisUnknown Advance Directives Advance Directive Response Recorded Date/ [...] R19.05 August 14, 2024 7:38a m G90.A R5August 28, 2024 8:28 am Unknown September 16, 2024 10:35 pm Chief Complaint Admit Date R10.33 R19.05 August 14, 2024 7:38a m G90.A R55 August 28, 2024 8:28 am Unknown September 16, 2024 10:35 pm Pillars October 02, 2024 8:04 am Reason for Referral SpecialtyDiagnoses / ProceduresReferred By ContactReferred To ContactCT IMAGING Diagnoses History of sarcoma of soft tissue Family history of cancer Procedures CT CHEST W IVCON DIAGNOSTIC COMPUTED TOMOGRAPHY THORAX W/[place] [address] [place] [address] Ct Imaging [place] [address] Referral IDStatusReasonStart DateExpiration DateVisits RequestedVisits [id number] Review Auto-Generated Referral [id number] / ProceduresReferred By ContactReferred To Contact Diagnoses History of sarcoma of soft tissue Family history of cancer Procedures CONSULT TO SOLID TUMOR GENOMICS CLINIC OFFICE/OUTPATIENT [facility] 60-[place] [address] [place] [address] Referral IDStatusReasonStart DateExpiration DateVisits RequestedVisits [id number] PCP Requested Referral /[id number] / ProceduresReferred By ContactReferred To ContactMR IMAGING Diagnoses Soft tissue tumor Procedures MRI ABDOMEN WO/W IVCON MRI ABDOMEN W/O & W/CONTRAST MATERIAL Leonardo Bray MD [address] [place] [address] Mr Imaging [place] [address] Referral IDStatusReasonStart DateExpiration DateVisits RequestedVisits [id number] Review Auto-Generated Referral Additional Source Comments INFORMATION SOURCE (unrecogn ized section and content) DATE CREATED AUTHOR 11/22/2020 [facility] DATE CREATED AUTHOR AUTHOR'S ORGANIZ ATION 07/11/2021 [facility] DATE CREATED AUTHOR AUTHOR'S ORGANIZ ATION 10/20/2023 [facility] DATE CREATED AUTHOR AUTHOR'S ORGANIZ ATION 04/18/2024 [facility] DATE CREATED AUTHOR AUTHOR'S ORGANIZ ATION 07/24/2024 [facility] DATE CREATED AUTHOR AUTHOR'S ORGANIZ ATION 09/14/2024 [facility] DATE CREATED AUTHOR AUTHOR'S ORGANIZ ATION 10/03/2024 [facility] DATE CREATED AUTHOR AUTHOR'S ORGANIZ ATION 10/26/2024 [facility] DATE CREATED AUTHOR AUTHOR'S ORGANIZ ATION 11/01/2024 [facility] DATE CREATED AUTHOR AUTHOR'S ORGANIZ ATION 11/06/2024 [facility] DATE CREATED AUTHOR AUTHOR'S ORGANIZ ATION 12/28/2024 [facility] EPIC Care Teams (unrecognized sec tion and content) Team Status: Active Member Role Status Dates Nickolas Isaacs MD Primary Care Provider Active Team Status: Inactive Member Role Status Dates Nickolas Isaacs MD Primary Care Provider Active Black Zaidi DO CHCAttending ProviderActiveTeam MemberRelationshipSpecialty Start DateEnd Date Linnea Hackett PA-C [address] [place] [address] [facility] - [facility] Tajvanlr52/24/23Team MemberRelationshipSpecialtyStart Date End Date Linnea Hackett PA-C [address] [place] [address] PCP - GeneralUniversity Of Iowa Hospitals And Clinicsly Tliemios70/24/23Team MemberRelationshipSpecialtyStart Date End Date Linnea Hackett PA-C [address] [place] [address] PCP - [facility] Sgbmwfzk78/24/23 Team Status: Active Member Role Status Dates Linnea Hackett PA-C Primary Care Provider Active Team Status: Inactive Member Role Status Dates Kirk Rush MD Attending Provider Active Sta rt: April 04, 2023 End: April 04Elif Caceresimary Care ProviderActiveStart: April 04, 2023 End: April 04, 2023 Team Status: Inactive Member Role Status Dates Kirk Rush MD Attending Provider Active Sta rt: April 06, 2023 End: April 06DARIN Caceres[facility] ProviderActiveStart: April 06, 2023 End: April 06, 2023Team MemberRelationshipSpecialtyStart DateEnd Date Linnea Hackett PA [address] [place] [address] PCP - [facility] [place] [employer]08/11/22 Nickolas Isaacs MD [address] [place] [address] PCP - [facility]09/28/22 Linnea Hackett PA [address] [place] [address] Physician AssistantEmory University Hospital Midtown09/28/22Team MemberRelationshipSpecialtyStart DateEnd Date Linnea Hackett PA [address] [place] [address] PCP - [facility] Commercial08/11/22 Nickolas Isaacs MD [address] [place] [address] PCP - [facility]09/28/22 Linnea Hackett PA [address] [place] [address] Physician [facility]09/28/22 Team Status: Inactive Member Role Status Dates DARIN Mclean-C Primary Care Provider Active Start: September 21, 2023 End: September 20moises Zaidi - [facility] , DO CHCAttending ProviderActiveStart: September 21, 2023 End: September 21, 2023Team MemberRelationshipSpecialtyStart DateEnd Date Linnea Hackett PA-C [address] [place] [address] PCP - [facility] Vlnvkzij02/24/23 [place] [address] [place] [address] Specialty Care CoordinatorHematology/Bgipwmxd60/1/23Te MemberRelationship SpecialtyStart DateEnd Date Linnea Hackett PA-C [address] [place] [address] PCP - [facility]02/03/23 [place]cho[place], [place] [address] [place] [address] Specialty Care CoordinatorHematology/Rvisfczx06/1/23Te MemberRelationship SpecialtyStart DateEnd Date Nickolas Isaacs MD [address] [place] [address] PCP - [facility] Medicine09/28/22 Linnea Hackett PA [address] [place] [address] Physician AssistantUniversity Of Iowa Hospitals And Clinicsly Medicine09/28/22Te MemberRelationshipSpecialtyStart DateEnd Date Nickolas Isaacs MD [address] [place] [address] PCP - [facility] Medicine09/28/22 Linnea Hackett PA [address] [place] [address] Physician AssistantFaEmory Johns Creek Hospital09/28/22Team MemberRelationshipSpecialtyStart DateEnd Date Nickolas Isaacs MD [address] [place] [address] PCP - [facility]09/28/22 Linnea Hackett PA [address] [place] [address] Physician AssistantEmory University Hospital [facility]town09/28/22Te MemberRelationshipSpecialtyStart DateEnd Date Nickolas Isaacs MD [address] [place] [address] PCP - [facility]09/28/22 Linnea Hackett PA [address] [place] [address] Physician [facility]09/28/22Te MemberRelationshipSpecialtyStart DateEnd Date Nickolas Isaacs MD [address] [place] [address] PCP - [facility]09/28/22 Linnea Hackett PA [address] [place] [address] Physician AssistantEmory University [facility]09/28/22Te MemberRelationshipSpecialtyStart DateEnd Date Nickolas Isaacs MD [address] [place] [address] PCP - [facility]09/28/22 Linnea Hackett PA [address] [place] [address] Physician AssistantFamily Medicine09/28/22Team MemberRelationshipSpecialtyStart DateEnd Date Linnea Hackett PA-C [address] [place] [address] PCP - GeneralInternal Medicine04/16/24am MemberRelationshipSpecialtyStart Date End Date Nickolas Isaacs MD [address] [place] [address] PCP - GeneralFamily Medicine09/28/22 Linnea Hackett PA [address] [place] [address] Physician Assistantmily Medicine09/28/22Team MemberRelationshipSpecialtyStart DateEnd Date Nickolas Isaacs MD [address] [place] [address] PCP - GeneralFamily Medicine09/28/22 Linnea Hackett PA [address] [place] [address] Physician AssistantFamily Medicine09/28/22Team MemberRelationshipSpecialtyStart DateEnd Date Linnea Hackett PA-C [address] [place] [address] PCP - GeneralInternal Medicine04/16/24 MemberRelationshipSpecialtyStart Date End Date Nickolas Isaacs MD [address] [place] [address] PCP - GeneralFamily Medicine09/28/22 Linnea Hackett PA [address] [place] [address] Physician Assistantmily Medicine09/28/22 Team Status: Inactive Member Role Status Dates Linnea Hackett PA-C Primary Care Pr ovider, Attending Provider Active Start: August 14, 2024 End: August 14, 2024Team MemberRelationshipSpecialtyStart DateEnd Date Nickolas Isaacs MD [address] [place] [address] PCP - GeneralFamily Medicine09/28/22 Linnea Hackett PA [address] [place] [address] Physician AssistantUniversity Of Iowa Hospitals And Clinicsly Medicine09/28/22Team MemberRelationshipSpecialtyStart DateEnd Date Linnea Hackett PA-C [address] [place] [address] PCP - GeneralFamily Iyngeroh50/24/23 Maddi Ochoa, [place] [address] [place] [address] Specialty Care CoordinatorHematology/Vqyzjcgp78/1/23Team MemberRelationship SpecialtyStart DateEnd Date Linnea Hackett PA-C [address] [place] [address] PCP - GeneralInternal Medicine04/16/24Team MemberRelationshipSpecialtyStart Date End Date Nickolas Isaacs MD [address] [place] [address] PCP - GeneralFamily Medicine09/28/22 Linnea Hackett PA [address] [place] [address] Physician AssistantFamily Medicine09/28/22 Team Status: Inactive Member Role Status Dates Linnea Hackett PA-C Primary Care Provider Active Start: August 14, 2024 End: August 14, 2024Darlyn Mclean ProviderActiveStart: August 14, 2024 End: August 14, 2024 Team Status: Inactive Member Role Status Dates Linnea Hackett PA-C Primary Care Provider Active Start: August 28, 2024 End: August 28, 2024Quique Vazquez MDAttending ProviderActiveStart: August 28, 2024 End: August 28, 2024MoMARGIE Corderoeferring ProviderActiveStart: August 28, 2024 End: August 28, 2024 Team Status: Inactive Member Role Status Dates Haily Ash DO Attending Provider Act gregory Start: September 16, 2024 End: September 16, 2024Team MemberRelationshipSpecialtyStart DateEnd Date Linnea Hackett PA-C [address] [place] [address] PCP - [facility] Fpimyegs38/24/23 [place] [address] [place] [address] Specialty Care CoordinatorHematology/Elsclvvz30/1/23Team MemberRelationship SpecialtyStart DateEnd Date Linnea Hackett PA-C [address] [place] [address] PCP - GeneralUniversity Of Iowa Hospitals And Clinicsly Rujdleyt20/24/23 [place] [address] [facility] [address] Specialty Care CoordinatorHematology/Odcoxmlf64/1/23 Team Status: Active Member Role Status Dates PHYSICIAN NO FAMILY Primary Care Provider Active Team Status: Inactive Member Role Status Dates PHYSICIAN NO FAMILY Primary Care Provider Active Start: October 02, 2024 End: October 02moises Zaidi - [facility] , DO CHCAttending ProviderActiveStart: October 02, 2024 End: October 02, 2024Team MemberRelationshipSpecialtyStart DateEnd Nickolas Isaacs MD [address] [place] [address] PCP - GeneralFamily Medicine09/28/22 Linnea Hackett PA [address] [place] [address] Physician AssistantFamily Medicine09/28/22Team MemberRelationshipSpecialtyStart DateEnd Nickolas Isaacs MD [address] [place] [address] [facility] - [facility] Medicine09/28/22 Linnea Hackett PA [address] [place] [address] Physician AssistantFamily Medicine09/28/22Te MemberRelationshipSpecialtyStart DateEnd Date Linnea Hackett PA-C [address] [place] [address] PCP - Generalmi Mxctjwab94/24/23 [place] [address] [place] [address] Specialty Care CoordinatorHematology/Jfgslfvi21/1/23Team MemberRelationship SpecialtyStart DateEnd Date Linnea Hackett PA-C [address] [place] [address] PCP - [facility] Hxmxiytc87/24/23 [place] [address] [place] [address] Specialty Care CoordinatorHematology/Sfvxmsiw77/1/23Team MemberRelationship SpecialtyStart DateEnd Linnea Hackett PA [address] [place] [address] PCP - [facility] [place] [employer]/ Nickolas Isaacs MD [address] [place] [address] PCP - [facility]09/28/22 Linnea Hackett PA [address] [place] [address] Physician AssistantEmory University Hospital [facility]09/28/22Te MemberRelationshipSpecialtyStart DateEnd Date Linnea Hackett PA [address] [place] [address] PCP - [facility] [place] [facility]08/12/2311 Nickolas Isaacs MD [address] [place] [address] PCP - [facility]09/28/22 Linnea Hackett PA [address] [place] [address] Physician AssistantEmory University [facility]09/28/22Te MemberRelationshipSpecialtyStart DateEnd Date Linnea Hackett PA [address] [place] [address] PCP - [facility] [place] [facility]08/12/2311 Nickolas Isaacs MD [address] [place] [address] PCP - GeneralUniversity Of Iowa Hospitals And Clinicsly Medicine09/28/22 Linnea Hackett PA [address] [place] [address] Physician AssistantEmory [facility]09/28/22Team MemberRelationshipSpecialtyStart DateEnd Linnea Hackett PA [address] [place] [address] PCP - [facility] [place] [employer]08/12/2311 Nickolas Isaacs MD [address] [place] [address] PCP - [facility]09/28/22 Linnea Hackett PA [address] [place] [address] Physician AssistantEmory [facility]09/28/22Te MemberRelationshipSpecialtyStart DateEnd Date Linnea Hackett PA [address] [place] [address] PCP - Medical [facility]08/12/2311 Nickolas Isaacs MD [address] [place] [address] PCP - [facility]09/28/22 Linnea Hackett PA [address] [place] [address] Physician AssistantEmory University Hospital [facility]09/28/22 Goals (unrecognized section and content) Goals may [...] FOR VISIT (unrecogniz ed section and content) ReasonCommentsConsultReasonCommentsConsultReasonCommentsCare Coordinator - Other Need office note from 02/[address] AmaroeasonCommentsRadiology MRI SpecialtyDiagnoses / ProceduresReferred By ContactReferred To ContactMR IMAGING Diagnoses Soft tissue tumor Procedures MRI ABDOMEN WO/W IVCON MRI ABDOMEN W/O & W/CONTRAST MATERIAL Leonardo Bray MD [address] [place] [address] Mr [facility] [place] [address] Referral IDStatusReasonStart DateExpiration DateVisits RequestedVisits [id number] Auto-Generated Referral /[id number] CTSpecialtyDiagnoses / Procedures Referred By ContactReferred To ContactCT IMAGING Diagnoses History of sarcoma of soft tissue Family history of cancer Procedures CT CHEST W IVCON DIAGNOSTIC COMPUTED TOMOGRAPHY THORAX W/[place] [address] [place] [address] Ct [facility] [place] [address] Referral IDStatusReasonStart DateExpiration DateVisits RequestedVisits [id number] Auto-Generated Referral [id number] of BreathPatient reporting issues with breathing. Patient reporting exposure to RSV and pneumonia approximately two weeks. States breathing has been getting worse over last two weeks. Reporting no fevers.CoughPatient reporting chronic cough over last two weeks. ReasonCommentsFollow-upReasonCommentsAllergy TestingHeart ProblemWants to talk about cardiology referralReasonCommentsNew Patient VisitPalps tachycardia SpecialtyDiagnoses / ProceduresReferred By ContactReferred To Contact Diagnoses Postural orthostatic tachycardia syndrome (POTS) Syncope, unspecified syncope type Procedures ECG 12 Lead Quique Vazquez MD [address] [place] [address], [place] [address] Phone: tel: fax: Referral IDStatusReasonStart DateExpiration DateVisits RequestedVisits [id number]/26/20252/26/[id number] Follow-up Abdominal PainReasonCommentsFollow-upTilt tableSpecialtyDiagnoses / Procedures Referred By ContactReferred To ContactCardiology Diagnoses Syncope, unspecified syncope type Procedures Follow Up In Cardiology Quique Vazquez MD [address] [place] [address], [address] [address] Phone: tel: fax: Quique Vazquez MD [address] [place] [address], [place] [address] Phone: tel: fax: Referral IDStatusReasonKeene DateExpiration DateVisits RequestedVisits [id number]/26/20252/26/582241KmoirhZzmygtzwAeocfawwe [place] SpecialtyDiagnoses / ProceduresReferred By ContactReferred To ContactMOLECULAR & FUNCTIONAL IMAGING Diagnoses Dyspepsia Nausea Procedures NM GASTRIC EMPTYING SOLID GASTRIC EMPTYING STUDY Irma Nava APRN.EMBROIDERY PATTERNMAKER [address] [facility] [place] [address] Phone: tel: fax: Molecular Imaging [address] [place] [address] Phone: tel: Referral IDStatusReasonStart DateExpiration DateVisits RequestedVisits [id number] Auto-Generated Referral [id number] Women VisitReasonCommentsResultsReason CommentsImmunizationsReceivedReasonCommentsPre-op Visit Source Comments (unrecognize d section and content) In the event this informatio n is protected by the Federal Confidentiality of Alcohol and Drug Abuse Patient Records regulations: The Federal rules restrict any use of the information to criminally investigate or prosecute any alcohol or drug abuse patient.[facility] HospitalIn the event this information is protected by the Federal Confidentiality of Alcohol and Drug Abuse Patient Records regulations: The Federal rules restrict any use of the information to criminally investigate or prosecute any alcohol or drug abuse patient.[facility] HospitalIn the event this information is protected by the Federal Confidentiality of Alcohol and Drug Abuse Patient Records regulations: The Federal rules restrict any use of the information to criminally investigate or prosecute any alcohol or drug abuse patient.[facility] HospitalIn the event this information is protected by the Federal Confidentiality of Alcohol and Drug Abuse Patient Records regulations: The Federal rules restrict any use of the information to criminally investigate or prosecute any alcohol or drug abuse patient.[facility] HospitalIn the event this information is protected by the Federal Confidentiality of Alcohol and Drug Abuse Patient Records regulations: The Federal rules restrict any use of the information to criminally investigate or prosecute any alcohol or drug abuse patient.[facility] HospitalIn the event this information is protected by the Federal Confidentiality of Alcohol and Drug Abuse Patient Records regulations: The Federal rules restrict any use of the information to criminally investigate or prosecute any alcohol or drug abuse patient.[facility] HospitalIn the event this information is protected by the Federal Confidentiality of Alcohol and Drug Abuse Patient Records regulations: The Federal rules restrict any use of the information to criminally investigate or prosecute any alcohol or drug abuse patient.[facility] HospitalIn the event this information is protected by the Federal Confidentiality of Alcohol and Drug Abuse Patient Records regulations: The Federal rules restrict any use of the information to criminally investigate or prosecute any alcohol or drug abuse patient.[facility] HospitalIn the event this information is protected by the Federal Confidentiality of Alcohol and Drug Abuse Patient Records regulations: The Federal rules restrict any use of the information to criminally investigate or prosecute any alcohol or drug abuse patient.[facility] HospitalIn the event this information is protected by the Federal Confidentiality of Alcohol and Drug Abuse Patient Records regulations: The Federal rules restrict any use of the information to criminally investigate or prosecute any alcohol or drug abuse patient.[facility] HospitalIn the event this information is protected by the Federal Confidentiality of Alcohol and Drug Abuse Patient Records regulations: The Federal rules restrict any use of the information to criminally investigate or prosecute any alcohol or drug abuse patient.[facility] FOR RECORDS PERTAINING TO PATIENTS WHO [...] BE BASED ON THE PRIMARY CLINICAL RECORDS. [employer] [facility]. provides no warranty or guarantee of the accuracy or completeness of information in this document.
== END 2025-01-14 11:06 | disposition home or self-care (01) ==
LOC: PST 11:05
PROVIDERS: PCP Physician Assistant; Visit Provider Obstetrics & Gynecology
DX: Z01.810 Encounter for preprocedural cardiovascular examination (principal); N93.8 Other specified abnormal uterine and vaginal bleeding; N92.1 Excessive and frequent menstruation with irregular cycle; R10.30 Lower abdominal pain, unspecified
CPT/HCPCS: 93005

== ENCOUNTER 2025-01-24 09:29 | Day surgery (SDC) | payer OTHER, SELFPAY ==
[2025-01-14 11:53] VITALS: BP 122/80; PULSE 79; TEMP 36.3; O2SAT 99; BMI 43.1
[2025-01-24] VITALS (12 sets, daily range): BP systolic 107–149; BP diastolic 67–85; PULSE 77–105; TEMP 36.3–36.4; O2SAT 95–100; BMI 42.8
--- OUTSIDE RECORDS SUMMARY | 2025-01-24 09:34 | XMS_ITS | Clinical Summary ---
Author Organization [facility] Address [facility] [place] [address] Care Team Providers Care Silica Spray Mixer Name Role Phone Linnea Escalante PA-C Primary Care Provider Maddi Ochoa RN Unavailable Allergies Active AllergyReactionsCriticalityNoted EfidSfhzdbvtKflvPzpxeqiomgw14/24/2023 LtxptfiWzxlq89/24/2023 raspberries Medications MedicationSigDispense QuantityRefillsLast FilledStart DateEnd DateStatus levothyroxine (SYNTHROID) 100 mcg tablet Take 100 mcg by mouth daily before breakfast.Active metFORMIN (GLUCOPHAGE) 500 mg tablet Take 500 mg by mouth daily with breakfast.Active Cholecalciferol, Vitamin D3, (VITAMIN D) 25 mcg (1,000 unit) cap Take 1,000 Units by mouth once daily.Active albuterol-budesonide HFA (AIRSUPRA) 90-80 mcg/actuation inhaler Inhale 2 puffs as instructed every 4 hours as needed.05/31/2023ctive pantoprazole DR (PROTONIX) 40 mg tablet Take 1 tablet by mouth once daily. 90 tablet 5Active Active Problems ProblemNoted DateDiagnosed DateDepressive mbbmexqg25/20/2304Iluogzj37/16/2024 Anxiety ydtrajyk89/23/2023cquired rbwncynwhchoup81/31/2020Obesity (BMI 30-39.9) 01/30/2011 Encounters DateTypeDepartmentCare RtyqPyxihimcxnu22/02/2025MC Get Medical Advice Gastroenterology [address] [place] [address] Irma Nava APRN.HONEY PROCESSOR After ppegqdap48/26/2025 5:15 PM EDTProcedure [facility] G[facility] [address] [place] [address] Uriel Marmolejo MD Jyxrfal6011/05/2024 9:00 AM EDTNurse Visit [facility] Gastroenter[facility] [address] [place], [place] [address] [facility] Nausea and vomiting, unspecified vomiting type11/05/2024Results Follow-Up Gastroenterology [address] [place], [place] [address] Irma Nava APRN.HONEY PROCESSOR 10/29/2024Travelfrom Last 3 Months Social History Tobacco UseTypesPacks/DayYears UsedDateSmoking Tobacco: NeverSmokeless Tobacco: Never Tobacco Cessation:Counseling Given: Not Answered Alcohol UseStandard Drinks/WeekCommentsNever0 (1 standard drink = 0.6 oz pure alcohol)Area Deprivation IndexAnswerDate RecordedNational Score (1-100), lower number is lower cpec790611/18/2022State Score (1-10), lower number is lower risk6 3Data from: https://www.neighborhoodatlas.medicine.[facility].edu/. Last address used for edudvswakjs[address]CommentsUnknownSex and Gender InformationValueDate RecordedSex Assigned at SejsjLjevix90/02/2023 3:43 PM EDTLegal PpjGrumbm51/07/2023 7:53 PM EDTGender QrgspyeqFrxtsw58/02/2023 3:43 PM EDTSexual AhiwwxshbjaAcvjvamv50/02/2023 3:43 PM EDT Last Filed Vital Signs Vital SignReadingTime TakenCommentsBlood Wfbgobrx513/7706 12:05 PM EDT Lazyv885608/29/2024 12:05 PM WYOTbuunpicxhp62.8 ??C (98.2 ??F)06/21/2024 2:35 PM EDTRespiratory Diiu649208/29/2024 12:05 PM EDTOxygen Bllqsjtwnr82%08/29/2024 12:05 PM EDTInhaled Oxygen Concentration--Sdezfc363.3 kg (274 lb)08/29/2024 11:00 AM CMFHbdeeu537.7 cm (5' 8 )08/29/2024 11:00 AM EDTBody Mass Index41.66008/29/2024 11:00 AM EDT Plan of Treatment Health MaintenanceDue DateLast DoneCommentsDTaP,Tdap,Td Vaccine (6 - Tdap) , 04/24/1996, 1995, Additional history existsAnnual PCP Team Chronic Disease Visit2013HIV Xcacxxsxw99/09/2013Hepatitis C Tdyjseuwb22/09/2013Cervical Cancer Ummosoimk57/09/2016Covid-19 Vaccine ( season)512/04/2020, 04/17/2020, 03/20/2020Influenza Vaccine (#1)510/, 11/12/2023, 12/08/2022, Additional history exists Hepatitis B AywlmqvGpsgceapw01/08/1996, 1995, 1995HPV Vaccine Sxfyhuwxg97/20/2008, 05/30/2007, 03/27/2007 Procedures Procedure NamePriorityDate/TimeAssociated DiagnosisCommentsBREATH TEST GLUCOSE Xpscnnz2511/05/2024 Nausea and vomiting, unspecified vomiting type US MESENTERIC ARTERY CMPLT VAS FQNDncrbfi62/21/2025 8:08 AM EDT Nausea and vomiting, unspecified vomiting type from Last 3 Months Results * BREATH TEST GLUCOSE (11/05/2024)Anatomical RegionLateralityModalityOther Impressions 11/05/2024 You have completed your breath test. Your glucose breath test is negative. (H2 ??or CH4 increases at least 12ppm over the lowest preceding value within the test period may beindicative of a positive study.) Please follow up with the ordering physician with instructions for next steps. Uriel Marmolejo MD Narrative 11/05/2024 Glucose - SIBO Hydrogen Breath Test November 05, 2024 Referring Physician: Irma Nava APRN.HONEY PROCESSOR Indication Nausea and Vomiting Prep: 4 weeks following: none ?1 hour before: No Smoking ?Day of test - No gum chewing Baseline Hydrogen: 16 ?Methane: 9 ?Ludy Fabian MA Time given: 8:40am 50 grams / 50 grams Clock time start: 8:45am 15 minutes Hydrogen: 30 ?Methane: 9 ?Ludy Fabian MA 30 minutes Hydrogen: 22 ?Methane: 11 ?Ludy Fabian MA 45 minutes Hydrogen: 31 ?Methane: 11 ?Ludy Fabian MA 1 hour Hydrogen: 24 ?Methane: 10 ?Ludy Fabian MA 1 hour, 15 minutes Hydrogen: 23 ?Methane: 10 ?Ludy Fabian MA 1 hour, 30 minutes Hydrogen: 20 ?Methane: 8 ?Ludy Fabian MA Symptoms developed during the study: None Patient Results Preliminary Test Results (not given to patient): Pending Ludy Fabian MA Authorizing ProviderResult TypeResult StatusNicole Elijah ARNDTCNPDIGESTIVE DISEASEFinal Result * US MESENTERIC ARTERY CMPLT VAS LAB (10/31/2024 8:08 AM EDT)Specimen (Source) Anatomical Location / LateralityCollection Method / VolumeCollection Time Received Time10/31/2024 8:08 AM EDT [facility] - 10/31/2024 10:07 AM EDT Non-Invasive Vascular Laboratory [place] F30 Renal or Mesenteric Duplex Bilateral/Complete Date [...] NAVA Interpreting physician: KENNY Waters DO Final See Link below for Image Authorizing ProviderResult TypeResult StatusNicole Pack HARBORMASTER.CNPVASCULAR LAB Final ResultPerforming OrganizationAddressCity/State/ZIP CodePhone Number [facility] [address] [place] [phone] from Last 3 Months Insurance Care Teams Team MemberRelationshipSpecialtyStart DateEnd Date Linnea Escalante PA-C [address] [place] [address] PCP - GeneralFamily Quznomxl18/24/23 [place] [address] [place] [phone] Specialty Care CoordinatorHematology/Tvjlkwha39/1/23
--- OUTSIDE RECORDS SUMMARY | 2025-01-24 09:34 | XMS_ITS | Clinical Summary ---
Author Organization [facility] Address [address] [place] [address] Phone Care Team Providers Care Representative Name Role Phone Linnea Escalante PA-C Primary Care Provider [phone] Allergies No known active allergies Medications MedicationSigDispense [...] without complication, without long-term current use of gjdwjpd8309/12/2024MI 40.0-44.9, adult05/08/2024 Never smoked viejnaj5305/08/20249614Kusdivw64/26/4873Qabepbftgkn13/26/2025Syncope 05/08/2024Postural orthostatic tachycardia syndrome (POTS)05/08/2024 Encounters DateTypeDepartmentCare ZxmtAljtaazktfa65/15/2025Telephone [facility] [address] [place] [phone] Kady Lutz, CONY Sweat Chloride Testing; CFTR Genetic Testingfrom Last 3 Months Immunizations ImmunizationAdministration DatesNext GtkEPY5006/30/2000,04/24/1996,1995, 1995,1995Flu vaccine (IIV4), preservative free *Check age/dose* 12/08/2022HPV, Vapavbxzzuc24/20/2008Hepatitis B vaccine, 19 yrs and under (RECOMBIVAX, ENGERIX)1995,1995,1995HiB, oyzxowwxssu86/02/1997, 1995,1995,1995Influenza, seasonal, oerfznzjcq75/01/2024MMR vaccine, subcutaneous (MMR II)06/30/2000,04/14/1996Polio, Ouesphrchsq95/20/2001, 1995,1995,1995 Family History Medical HistoryRelationNameCommentsHypertensionFatherDiabetesMotherRelationName StatusCommentsFatherMother Social History Tobacco UseTypesPacks/DayYears UsedDateSmoking Tobacco: NeverSmokeless Tobacco: Never Tobacco Cessation:Counseling Given: Not Answered Alcohol UseStandard Drinks/WeekCommentsYes0 (1 standard drink = 0.6 oz pure alcohol)1-2 yearlyCommentsUnknownSex and Gender InformationValueDate RecordedSex Assigned at BirthNot on fileLegal WxuXgnudq22/04/2025 12:14 PM EST Gender IdentityNot on fileSexual OrientationNot on file Last Filed Vital Signs Vital SignReadingTime TakenCommentsBlood Awmjyvfb341/72009/12/2024 8:51 AM EDT Zqyob5344/03/2025 8:51 AM EDTTemperature--Respiratory Rate--Oxygen Saturation-- Inhaled Oxygen Concentration--Fldxkt902 kg (277 lb)09/12/2024 8:51 AM EDTHeight 172.7 cm (5' 8 )09/12/2024 8:51 AM EDTBody Mass Index42.12009/12/2024 8:51 AM EDT Plan of Treatment DateTypeDepartmentCare Team (Latest Contact Info)Bvowqepxdyg07/19/2025 9:00 AM ESTClinical Support [facility] [address] [place] [phone] 01/29/2025 10:00 AM ESTMultidisciplinary Visit [facility] [address] [place] [address] [place] [address] [place] [address] 05/06/2025 8:50 AM ESTOffice Visit [facility] [address] [facility] [address] [place] [phone] Quique Vargas MD [address] [facility] [address] [place] [address] Health MaintenanceDue DateLast DoneCommentsDiabetes: Hemoglobin A1C1995 Diabetes: Urine Protein Ofkifjkjc1995HIV Zyghpzgny1995Lipid Panel 1995TSH Level1995Diabetes: Retinopathy Wtddqqvmk75/09/2005 DTaP/Tdap/Td Vaccines (6 - Tdap), 04/24/1996, 1995, Additional history existsHPV Vaccines (2 - 2-dose series) Hepatitis C Usiuzbmte33/09/2013Pneumococcal Vaccine: Pediatrics and At-Risk Adult Patients (1 of 2 - PCV)2014Cervical Cancer Qrzdasroe76/09/2016 HPV/Lstmxr7001/20/2016Pap Smear01/20/2016Influenza Vaccine (#1)2024 01/05/2024, 11/12/2023, 12/08/2022Yearly Adult Jejtbdhq30/09/2023, 10/06/2023, 3COVID-19 Vaccine ( season)512/04/2020, 04/17/2020, 03/20/2020Zoster Vaccines (1 of 2)2045Hepatitis B Vaccines Pqkynyalj97/08/1996, 1995, 1995HIB WdkaoqqjRwetyadsu71/02/1997, 1995, 1995, Additional history existsIPV VaccinesCompleted 06/30/2000, 1995, 1995, Additional history existsMMR Vaccines Rvgheuhzo41/20/2001, 04/14/1996Hepatitis A VaccinesAged OutNo longer eligible based on patient's age to complete this topicMeningococcal VaccineAged OutNo longer eligible based on patient's age to complete this topicRotavirus Vaccines Aged OutNo longer eligible based on patient's age to complete this topic Insurance Care Teams Team MemberRelationshipSpecialtyStart DateEnd Date Linnea Escalante, KADY [address] [place] [address] PCP - GeneralInternal Medicine04/16/24
--- OUTSIDE RECORDS SUMMARY | 2025-01-24 09:34 | XMS_ITS | Encounter Summary ---
Author Organization [facility] Address [address] [facility] [place] [address] Care Team Providers Care Dog Food Shredder Operator Name Role Phone Linnea Escalante Unavailable [phone] Nickolas Isaacs MD Primary Care Provider [phone] Linnea Escalante Unavailable [phone] Encounter Details DateTypeDepartmentCare Team (Latest Contact Info)Lyizelwesuw14/04/2025Clinisync Result Encounter [facility] External Department Unsolicited Db Keane, DO [address] [facility] [address] [place], [place] [address] Social History Tobacco UseTypesPacks/DayYears UsedDateSmoking Tobacco: NeverSmokeless Tobacco: NeverAlcohol UseStandard Drinks/WeekCommentsYes0 (1 standard drink = 0.6 oz pure alcohol)1-2 drinks of alcohol less than gcnhlJ6142 Health LiteracyAnswerDate RecordedHow often do you need [...] week10/08/2024How often do you attend yazidism or caodaism services?1 to 4 times per year10/08/2024Do you belong to any clubs or organizations such as yazidism groups, unions, fraternal or athletic groups, or school groups?No10/08/2024How often do you attend meetings of the clubs or organizations you belong to?Never10/08/2024re you , , , , never , or living with a partner?Never vrhwoht6110/08/2024UDIT-CAnswerDate RecordedQ1: How often do you have a [...] and heating?Somewhat hard10/08/2024PHQ-2AnswerDate RecordedPatient Health Questionnaire-2 Score0 12/20/2024[facility] [place] of Occupational Health - Occupational Stress QuestionnaireAnswerDate RecordedDo you feel stress - tense, restless, nervous, or anxious, or unable to sleep at night because yourmind is troubled all the time - these days?Only a jiyero0310/08/2024Exercise Vital SignAnswerDate Recorded On average, how many [...] place to sleep or slept in [facility] (including now)?No08/01/2022Housing Stability Vital SignAnswerDate RecordedIn the last 12 months, was there a time when you were not able to pay the mortgage or rent on time?No10/08/2024In the past 12 months, how many times have you moved where you were living? At any time in the past 12 months, were you homeless or living in a fci (including now)?No10/08/2024CommentsNoSex and Gender InformationValue Date RecordedSex Assigned at KpkgwEiyxpr52/22/2023 4:36 PM EDTLegal SexFemale 05/25/2022 7:27 PM EDTGender XdwqmrpvYbgezt49/15/2023 7:27 PM EDTSexual BnpzcngfxdvYogyqlzt54/24/2023 8:31 PM EDTdocumented as of this encounter Plan of Treatment DateTypeDepartmentCare Team (Latest Contact Info)Efufwgyecqo60/18/2026 8:30 AM EDTProcedure Visit [facility] Karen DIAZ [address] [place] [address] [place] [address] Db Keane, DO [address] [place] [address] [place] [address] documented as of this encounter Procedures Procedure NamePriorityDate/TimeAssociated DiagnosisCommentsECG 12-LEAD01/14/2025 10:48 AM EST documented in this encounter Results * ECG 12-LEAD (01/14/2025 10:48 AM EST)Anatomical RegionLateralityModalityOther Specimen (Source)Anatomical Location / LateralityCollection Method / Volume Collection TimeReceived Time01/14/2025 10:48 AM EST Narrative 01/14/2025 12:26 PM EST [facility] ?[address] ? [place] [address] ? Electrocardiograph Report ? Signed ? Patient: ADINA MARTINEZ ?MR#: [id number] ?? : 1995 ?Acct:[id number] ?? Age/Sex: 29 / F ?ADM Date: 01/14/25 ?? Loc: PST ? Attending Dr: Db Keane D.O. ? Ordering Physician: Db Keane D.O. ?? Date of Service: 01/14/25 ?? Procedure(s): ECG 12 lead ?? Accession Number(s): [id number] ? cc: ?[facility] ? Test Date: ?2025-01-14 ?? Pat Name: ? ADINA MARTINEZ ? Department: ? Room: ? - ?? Gender: ? Female ? Dock Operations Supervisor: ? : ?1995 ? Requested By: DB SUHA ?? Order Number: [id number] ?Reading MD: ?? MANAN JJ ? Measurements ?? Intervals ?[place] ? Rate: ? 71 ? P: ?14 ?? NE: ? 146 ?QRS: ?14 ?? QRSD: ? 108 ?T: ?13 ?? QT: ? 378 ? QTc: ?411 ? Interpretive Statements ?? SINUS RHYTHM WITH SINUS ARRHYTHMIA ?? No previous ECG available for comparison ?? Electronically Signed On 01-14-2025 12:26:15 EST by MANAN JJ ? Dictated By: ?Manan Jj M.D. ? Signed By: ?01/14/25 1226 ? DD/ 1048 ? TD/TT: ? Repairer Maintenance Building: Procedure Note Radiology, Radiologist, MD - 01/14/[address] [address] Electrocardiograph Report Signed Patient: ADINA MARTINEZ PMR#: [id number] : 1995Acct:[id number] Age/Sex: 29 / FADM Date: 01/14/25 Loc: PST Attending Dr: Db Keane D.O. Ordering Physician: Db Keane D.O. Date of Service: 01/14/25 Procedure(s): ECG 12 lead Accession Number(s): [id number] cc: [facility] Test Date: 2025-01-14 Pat Name: ADINA MARTINEZ Department: Room: - Gender: Female Dock Operations Supervisor: : 1995 Requested By: DB KEANE Order Number: [id number] Reading MD: MANAN JJ Measurements Intervals [place] Rate: 71 P: 14 NE: 146 QRS: 14 QRSD: 108 T: 13 QT: 378 QTc: 411 Interpretive Statements SINUS RHYTHM WITH SINUS ARRHYTHMIA No previous ECG available for comparison Electronically Signed On 01-14-2025 12:26:15 EST by MANAN JJ Dictated By: Manan Jj M.D. Signed By:01/14/25 1226 DD/ 1048 TD/TT: Repairer Maintenance Building: Authorizing ProviderResult TypeResult StatusCoready Keane DOCLINISYNC IMAGINGFinal Result documented in this encounter Visit Diagnoses Not on filedocumented in this encounter Care Teams Team MemberRelationshipSpecialtyStart DateEnd Date Linnea Escalante PA [address] [place] [address] PCP - Medical [facility]08/12/2311 Nickolas Isaacs MD [address] [place] [address] PCP - GeneralFamily Medicine09/28/22 Linnea Escalante PA [address] [place] [address] Physician AssistantFamily Medicine09/28/22documented as of this encounter
--- OUTSIDE RECORDS SUMMARY | 2025-01-24 09:34 | XMS_ITS | Encounter Summary ---
Author Organization [facility] Address [address] [facility] [place] [address] Care Team Providers Care Pad Machine Operator Name Role Phone Linnea Escalante Unavailable [phone] Nickolas Isaacs MD Primary Care Provider [phone] Linnea Escalante Unavailable [phone] Encounter Details DateTypeDepartmentCare Team (Latest Contact Info)Kuzbvoskzvo26/04/2025bstract [facility] [address] [place] [address] Db Keane DO [address] [facility] [address] [place], [facility] Social History Tobacco UseTypesPacks/DayYears UsedDateSmoking Tobacco: NeverSmokeless Tobacco: NeverAlcohol UseStandard Drinks/WeekCommentsYes0 (1 standard drink = 0.6 oz pure alcohol)1-2 drinks of alcohol less than abessI3368 Health LiteracyAnswerDate RecordedHow often do you need [...] times a week10/08/2024How often do you attend hinduism or orthodox services?1 to 4 times per year10/08/2024Do you belong to any clubs or organizations such as hinduism groups, unions, fraChina [employer] or athletic groups, or school groups?No10/08/2024How often do you attend meetings of the clubs or organizations you belong to?Never10/08/2024re you , , , , never , or living with a partner?Never mtdrams7010/08/2024UDIT-CAnswerDate RecordedQ1: How often do you have a [...] and heating?Somewhat hard10/08/2024PHQ-2AnswerDate RecordedPatient Health Questionnaire-2 Score0 12/20/2024[facility] [place] of Occupational Health - Occupational Stress QuestionnaireAnswerDate RecordedDo you feel stress - tense, restless, nervous, or anxious, or unable to sleep at night because yourmind is troubled all the time - these days?Only a vhsjrt0710/08/2024Exercise Vital SignAnswerDate Recorded On average, how many [...] steady place to sleep or slept in [facility] (including now)?No08/01/2022Housing Stability Vital SignAnswerDate RecordedIn the [...] and Gender InformationValue Date RecordedSex Assigned at YrxsrFuklky11/22/2023 4:36 PM EDTLegal SexFemale 05/25/2022 7:27 PM EDTGender NelpoyqeFwogdl43/15/2023 7:27 PM EDTSexual JaizxlrhtqyVxpzibfl35/24/2023 8:31 PM EDTdocumented as of this encounter Plan of Treatment DateTypeDepartmentCare Team (Latest Contact Info)Moihuylvkvg21/18/2026 8:30 AM EDTProcedure Visit [facility] [address] [place] [phone] Db Keane DO [address] [place] [address] documented as of this encounter Visit Diagnoses Not on filedocumented in this encounter Care Teams Team MemberRelationshipSpecialtyStart DateEnd Date Linnea Escalante PA [address] [place] [address] PCP - Medical [employer]08/12/2311 Nickolas Isaacs MD [address] [place] [address] PCP - GeneralFamily Medicine09/28/22 Linnea Escalante PA [address] [place] [address] Physician AssistantFamily Medicine09/28/22documented as of this encounter
--- OUTSIDE RECORDS SUMMARY | 2025-01-24 09:34 | XMS_ITS | Clinical Summary ---
Author Organization [facility] Address [address] [place] [address] Care Team Providers Care Can Crimper Name Role Phone Edmundo Sharma Unavailable Elizabeth Randall MD Unavailable Shyla Nuñez Unavailable Unavailable Linnea Escalante PA-C Primary Care Provider Allergies Active AllergyReactionsCriticalityNoted DateCommentsBee/Wasp StingAnaphylaxis High014RaspberryAnaphylaxis,Rash-WrplEfxs86/03/2023Venom-Honey Bee Anaphylaxis,FwtgkKtzk28/23/2023 Medications MedicationSigDispense QuantityRefillsLast FilledStart DateEnd DateStatus AIRSUPRA [...] /6Active Active Problems ProblemNoted DateDiagnosed DateNausea & ywuvwabo26/10/2025 Immunizations ImmunizationAdministration DatesNext DueInfluenza, Quadrivalent (P-free) (6 [...] (1 standard drink = 0.6 oz pure alcohol)[facility] UtilitiesAnswerDate RecordedIn the past 12 months has the AOBiome, gas, oil, or water [employer] threatened to shut off services in your [...] RecordedIn the last 4 weeks, did getting early childhood education instructor, elder care, or care for another person [...] how often do you feel isolated from others?Zylzbi2804/16/2024CommentsUnknownSex and Gender InformationValueDate RecordedSex Assigned at BirthNot on fileLegal SexFemale 03/28/2023 4:38 PM ESTGender IdentityNot on fileSexual OrientationNot on file OccupationIndustryJob Start DateJob End DateChildren/Adolescent Mental Health WorkerNot on fileNot on fileNot on file Last Filed Vital Signs Vital SignReadingTime TakenCommentsBlood Fvxrfdfq449/6605 8:18 AM EDT Lpuve9678 8:18 AM PQAPfmlezyfhbr19.5 ??C (97.7 ??F)07/17/2024 8:18 AM EDTRespiratory Douc219207/17/2024 8:18 AM EDTOxygen Saturation--Inhaled Oxygen Concentration--Uyncct027 kg (275 lb 9.6 oz)07/17/2024 8:18 AM EDTWITH SHOES Xqgpho727.2 cm (5' 7.01 )07/17/2024 8:18 AM EDTVERIFIEDBody Mass Index43.15 07/17/2024 8:18 AM EDT Plan of Treatment DateTypeDepartmentCare Team (Latest Contact Info)Wukdjhjgmct61/04/2026 8:20 AM ESTAppointment [facility] [place] [place] Floor [employer] A [address] [place] [address] 04/16/2025 10:00 AM ESTOffice Visit [facility] Floor [employer] Principal E [address] [place] [address] Rebeka Aleman PA-C [facility] [address] Cancer Center Floor [employer] [employer] Principal B [facility] [place] [address] Health MaintenanceDue DateLast DoneCommentsHepatitis C Mrhauqstj1995 DTaP,Tdap,and Td Vaccines (6 - Tdap), 04/24/1996, [...] Date Linnea Escalante PA-C [address] [place] [address] PCP - General04/16/24 Edmundo Sharma [address] [place] [address] Hematology and Oncology03/28/23 Elizabeth Randall MD [address] [place] [address] [facility] [place] [phone] Specialty PhysicianMedical Oncology04/12/23 Shyla Nuñez Oncology Care Navigator04/14/23
--- OUTSIDE RECORDS SUMMARY | 2025-01-24 09:34 | XMS_ITS | Clinical Summary ---
Author Organization [facility] Address [address] [facility] [place] [address] Care Team Providers Care Marine Plumber Name Role Phone Linnea Hackett Unavailable [phone] Nickolas Isaacs MD Primary Care Provider [phone] Linnea Hackett Unavailable [phone] Allergies Active AllergyReactionsCriticalityNoted DateCommentsBee VenomAnaphylaxis,Hives High08/02/2022 Other Reaction(s): Hives VltuTvfjQkd96/04/2020 Pt allergic to berries YnswtFnuxnni25/04/2020RaspberryRash,BtkfpevfmvtBdij50/03/2023 Medications MedicationSigDispense QuantityRefillsLast FilledStart DateEnd DateStatus albuterol [...] by mouth every 6 (six) hours if dfmsyd325Active pantoprazole (ProtoNix) 40 MG EC tablet Take [...] PO daily x 4 days 6 tablet 12/20/2024tive promethazine-dextromethorphan (Phenergan-DM) 6.25-15 MG/5ML syrup Indications:Viral upper respiratory tract infection,Mild intermittent asthma without complication (HCC)Take 5 mL by mouth every 6 (six) hours if needed for cough 240 mL 12/20/2024tive Active Problems ProblemNoted DateDiagnosed DateMass of scalp01/17/2025ervical radiculopathy 11/04/2024Encounter for Rh blood bgvzrl9410/14/2024ute cystitis with hematuria 07/08/2024Throat pwlonilq88/04/2025Heart ateoplyrymlp06/04/2025Tachycardia 04/16/2024Viral upper respiratory tract zoetaxsjn75/06/2024reventative health care10/06/2023 Assessment & Plan (10/06/2023 10:48 AM EDT): Annual exam in one year Foreign body of neck07/17/2023New daily persistent nusjrrke73/25/2024Vertigo of central mkmcxf8806/05/2023ight upper quadrant pain04/04/20238765Rpytifx55/16/2024 Assessment & Plan (07/11/2023 3:12 PM EDT): Patient will being seeing oncology at [facility] Had PET Scan done tomorrow 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 Assessment & Plan (03/28/2023 2:42 PM EST): Discussed treatment and side effects of medications and concerning symptoms to monitor for Acute bronchitis with qfqbnumv66/04/2024alculus of gallbladder with cholecystitis without biliary itgmchszyge23/04/5583Bvgyhetglq59/28/2023MI 38.0-38.9,adult02/14/2023History of gunshot wound02/14/20230447Ksjryckfg00/05/2023 Assessment & Plan (07/11/2023 3:10 PM EDT): Improving working with neurology PCOS (polycystic ovarian syndrome)02/14/2023Subcutaneous mass of abdominal wall 02/14/2023Mild intermittent asthma without jwnmlfybtqxw43/17/2023Nausea 12/27/2022 Assessment & Plan (12/27/2022 11:53 AM EDT): Will order zofran as needed Periumbilical mass11/22/2022 Assessment & Plan (12/27/2022 11:56 AM EDT): Healing well, patient needs work excuse 60-70-23-- Patient was advised to work on deep breathing exercises Ragland diet Patient has appt with Dr. Boo on Monday Assessment & Plan (11/22/2022 2:21 PM EDT): Reviewed CT results with patient Will refer to Dr. Boo [facility] for further eval Abdominal pain09/29/2022 Assessment & Plan (11/22/2022 2:22 PM EDT): Will refer to Dr. Boo for further eval Anxiety yrsezrsa70/23/2023 Assessment & Plan (07/11/2023 3:10 PM EDT): Stable, FMLA completed Assessment & Plan (01/05/2023 3:13 PM EDT): Will increase prozac to 20 mg Personal history of COVID-19008/02/2022Tear of lateral meniscus of knee08/02/2022 Overview (08/02/2022): right Other post infection and related fatigue ynqbrmuzk78/23/2023Morbid (severe) obesity due to excess /30/2020Acquired udjqsucllxvwzk13/31/2020 Assessment & Plan (07/11/2023 3:10 PM EDT): Continue current medications Assessment & Plan (01/05/2023 3:13 PM EDT): Will check labs and call with results Assessment & Plan (09/29/2022 12:49 PM EDT): Declined will increase med to 112 mcg cornelius Will refer to endo Morbid xxvpufe4710/11/2019 Resolved Problems ProblemNoted DateDiagnosed DateResolved DateOther acute postprocedural pain OVID-190epression/ Lipoma of abdominal wall/9276Osafzpatwye71/05/202303/ Frontal gyfwmabwb93/04/20224647Mhyrazy05Facial flushing / Encounters DateTypeDepartmentCare DwxvBiozpimgmmm68/04/2025bstract [facility] DIAZ [address] [place] [phone] Rafael Keane DO 5Clinisync Result Encounter [facility] External Department Unsolicited Rafael Keane DO 12/26/2024 11:10 AM EDTConsult NOMConnie DIAZ [address] [place] [phone] Rafael Keane DO Pre-op evaluation; Pelvic pain in female; Dysfunctional uterine bleeding; Menorrhagia with irregular cycle5Bamboo flowsheet [facility] [address] [place] [address] Rafael Keane DO 12/20/2024 8:00 AM EDTOffice Visit [facility] [address] [place] [phone] Linnea Hackett PA Acute bronchitis with wheezing (Primary Dx); Non-recurrent acute serous otitis media of right ear; Viral upper respiratory tract infection; Mild intermittent asthma without complication (HCC)12/20/2024amb flowsheet [facility] [address] [place] [address] Linnea Hackett PA 12/20/20243319Fjdggc09/09/1087Feruoa10/10/2025 1:30 PM EDTOffice Visit [facility] Karen OBKIMBERLEYN [address] [place] [address] Susie Rodriges NP Pelvic pain in female (Primary Dx); Dysfunctional uterine bleeding; Menorrhagia with irregular cycle11/20/2024[facility] flowsheet [facility] [address] [place] [address] Susie Rodriges NP 11/15/2024linisync Result Encounter [facility]OM[facility] External Department Unsolicited Provider, Generic External Data 11/14/20246005Ceztcv35/03/2025Telephone [facility] [address] [place] [address] Yashira Calderon MA 11/04/2024Results Follow-Up [facility] [address] [place] [address] Linnea Hackett PA Transthoracic echo (TTE) ksapbhwt61/25/2025Results Follow-Up [facility] [address] [place] [phone] Linnea Hackett PA [facility]#, [facility], [facility]RH HISTORY CHECK11/01/2024 Orders Only [facility] [address] [address] Ese Jones LPN 10/24/2024 12:40 PM EDTOffice Visit [facility] [address] [place] [phone] Linnea Hackett PA Cervical radiculopathy (Primary Dx)5Clinisync Result Encounter [facility] External Department Unsolicited Linnea Hackett PA 10/24/2024Travelfrom Last 3 Months Immunizations ImmunizationAdministration DatesNext JteBPP3306/30/2000,04/24/1996,1995, 1995,1995HPV, Wnawqvnqavif36/19/2008,03/27/2007HPV, Unspecified 10/31/2007Hep B, Adolescent or Ozktyehoz57/08/1996,1995,1995HiB, owyfftpzzga60/02/1997,1995,1995,1995Influenza, injectable, ljxmhkgtyajg82/09/2021Influenza, injectable, quadrivalent, preservative free 12/08/2022Influenza, seasonal, ianzsjokkz70/11/2023Influenza, seasonal, injectable, preservative free12/30/2011Influenza, seasonal, intradermal, preservative free01/10/2020MMR06/30/2000,04/14/1996Polio, Gvybhjuaakr01/20/2001, 1995,1995,1995 Family History Medical HistoryRelationNameCommentsHypertensionFatherDaniel ClinkerMental illnessMotherJodi JudgeMiscarriages / StillbirthsMotherJodi JudgeCancerPaternal GrandfatherDanielCancerPaternal GrandmotherEvelynRelationNameStatusComments Brother 15 brothersBrother 2AliveBrother 3AliveBrother 4AliveBrother 5Alive FatherDaniel ClinkerAliveMotherJodi JudgeAlivePaternal GrandfatherDanielPaternal GrandmotherEvelynSister 15 sistersSister 2AliveSister 3AliveSister 4AliveSister 5Alive Social History Tobacco UseTypesPacks/DayYears UsedDateSmoking Tobacco: NeverSmokeless Tobacco: Never Tobacco Cessation:Counseling Given: Not Answered Alcohol UseStandard Drinks/WeekCommentsYes0 (1 standard drink = 0.6 oz pure alcohol)1-2 drinks of alcohol less than azwnoQ0225 Health LiteracyAnswerDate RecordedHow often do you need [...] sexual activity by your part ner or ex-partner?10/08/2024Social Connection and Isolation PanelAnswerDate RecordedIn a typical week, how many times do you talk on the phone with family, friends, or neighbors?More than three times a week10/08/2024How often do you get together with friends or relatives?Three times a week10/08/2024How often do you attend gnosticist or methodist services?1 to 4 times per year10/08/2024Do you belong to any clubs or organizations such as gnosticist groups, unions, fraternal or athletic groups, or school groups?No10/08/2024How often do you attend meetings of the clubs or organizations you belong to?Never10/08/2024re you , , , , never , or living with a partner?Never yislsuw1610/08/2024UDIT-CAnswerDate RecordedQ1: How often do you have a [...] and heating?Somewhat hard10/08/2024PHQ-2AnswerDate RecordedPatient Health Questionnaire-2 Score0 12/20/2024[facility] [place] [facility] - Occupational Stress QuestionnaireAnswerDate RecordedDo you feel stress - tense, restless, nervous, or anxious, or unable to sleep at night because yourmind is troubled all the time - these days?Only a btztxk6810/08/2024Exercise Vital SignAnswerDate Recorded On average, how many [...] steady place to sleep or slept in [place] (including now)?No08/01/2022Housing Stability Vital SignAnswerDate RecordedIn the last 12 months, was there a time when you were not able to pay the mortgage or rent on time?No10/08/2024In the past 12 months, how many times have you moved where you were living? At any time in the past 12 months, were you homeless or living in a fci (including now)?10/08/2024CommentsNoSex and Gender InformationValue Date RecordedSex Assigned at HvmdoYaiocj89/22/2023 4:36 PM EDTLegal SexFemale 05/25/2022 7:27 PM EDTGender PknujxtgDnvlhb16/15/2023 7:27 PM EDTSexual KuuyojeumuyVmpwfxcu00/24/2023 8:31 PM EDT Last Filed Vital Signs Vital SignReadingTime TakenCommentsBlood Ishmghag774/7412/26/2024 11:28 AM EDT Xuavk373012/20/2024 8:05 AM LZWXfnruvkhazn03.9 ??C (98.4 ??F)12/20/2024 8:05 AM EDTRespiratory Rate--Oxygen Mwtidbtehd50%12/20/2024 8:05 AM EDTInhaled Oxygen Concentration--Eucjiz903 kg (280 lb)12/26/2024 11:28 AM FCWTrjaok431.7 cm (5' 8 )12/26/2024 11:28 AM EDTBody Mass Index42.5712/26/2024 11:28 AM EDT Plan of Treatment DateTypeDepartmentCare Team (Latest Contact Info)Naakfjfkeci78/18/2026 8:30 AM EDTProcedure Visit [facility] [address] [address] Rafael Keane DO [address] [place] [address] Health MaintenanceDue DateLast DoneCommentsPneumococcal Vaccine: Pediatrics (0 to 5 Years) and At-Risk Patients (6 to 64 Years) (1 of 2 - PCV)2014COVID- 19 Vaccine ( season)2020, 04/17/2020, 03/20/2020ap Smear, 10/13/2022ervical Cancer Gluiffynd16/16/2028 HPV/Agkcyp21/Influenza GbtkbriUhkpuwyln52/18/2025, 01/05/2024, 11/12/2023, Additional history exists Procedures Procedure NamePriorityDate/TimeAssociated DiagnosisCommentsECG 12-LEAD01/14/2025 10:48 AM EST US PELVIS W/ CFHAKPGHVMGT36/05/2025 9:[address] [facility]/RH HISTORY GFHBRFkqfsii58/14/2025 4:[address] [facility] AWIOCiywtms38/14/2025 4:[address] [facility] ID#[id number]/24/2024 4:[address] [facility]/XOZsluofg12/14/2025 4:03 PM EDT PAP DOGRMKtycpsn52/13/2025 12:00 AM EDTTHINPREP PAP AND HPV MRNA E6/E7 W/RFL HPV 16,18/58Ikoomcs94/16/2023 2:31 PM EDT Well woman exam with routine gynecological exam from Last 3 Months or Most Recently Relevant to Health Maintenance Results * ECG 12-LEAD (01/14/2025 10:48 AM EST)Anatomical RegionLateralityModalityOther Specimen (Source)Anatomical Location / LateralityCollection Method / Volume Collection TimeReceived Time01/14/2025 10:48 AM EST Narrative 01/14/2025 12:26 PM EST [facility] ?[address] ? [place] [address] ? Electrocardiograph Report ? Signed ? Patient: CLINKER,ADINA P ?MR#: [id number] ?? : 1995 ?Acct:[id number] ?? Age/Sex: 29 / F ?ADM Date: 11/04/25 ?? Loc: PST ? Attending Dr: Rafael Keane D.O. ? Ordering Physician: Rafael Keane D.O. ?? Date of Service: 01/14/25 ?? Procedure(s): ECG 12 lead ?? Accession Number(s): [id number] ? cc: ?[facility] ? Test Date: ?2025-01-14 ?? Pat Name: ? ADINA RENE ? Department: ? Room: ? - ?? Gender: ? Female ? 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 : ?1995 ? Requested By: RAFAEL KEANE ?? Order Number: [id number] ?Reading MD: ?? DAKOTA HARLEY ? Measurements ?? Intervals ?Gantt ? Rate: ? 71 ? P: ?14 ?? NC: ? 146 ?QRS: ?14 ?? QRSD: ? 108 ?T: ?13 ?? QT: ? 378 ? QTc: ?411 ? Interpretive Statements ?? SINUS RHYTHM WITH SINUS ARRHYTHMIA ?? No previous ECG available for comparison ?? Electronically Signed On 01-14-2025 12:26:15 EST by DAKOTA HARLEY ? Dictated By: ?Dakota Harley M.D. ? Signed By: ?11/04/25 1226 ? DD/ 1048 ? TD/TT: ? Bias Binding Cutter: Procedure Note Radiology, Radiologist, MD - 01/14/2025 [place] [address] Electrocardiograph Report Signed Patient: ADINA RENE PMR#: [id number] : 1995Acct:[id number] Age/Sex: FAD Date: 01/14/25 Loc: [facility] Attending Dr: Rafael Keane D.O. Ordering Physician: Rafael Keane D.O. Date of Service: 01/14/25 Procedure(s): ECG 12 lead Accession Number(s): [id number] cc: [facility] Test Date: 2025-01-14 Pat Name: ADINA RENE Department: Room: - Gender: Female Lockstitch Lining Maker: : 1995 Requested By: RAFAEL KEANE Order Number: [id number] Reading MD: DAKOTA HARLEY Measurements Intervals Gantt Rate: 71 P: 14 NC: 146 QRS: 14 QRSD: 108 T: 13 QT: 378 QTc: 411 Interpretive Statements SINUS RHYTHM WITH SINUS ARRHYTHMIA No previous ECG available for comparison Electronically Signed On 01-14-2025 12:26:15 EST by DAKOTA HARLEY Dictated By: Dakota Harley M.D. Signed By:01/14/25 1226 DD/ 1048 TD/TT: Bias Binding Cutter: Authorizing ProviderResult TypeResult StatusCorey Diya DOCLINISYNC IMAGINGFinal Result * US PELVIS W/ TRANSVAGINAL (11/15/2024 9:32 AM EDT)Anatomical RegionLaterality ModalityOtherSpecimen (Source)Anatomical Location / LateralityCollection Method / VolumeCollection TimeReceived Time11/15/2024 9:32 AM EDT Narrative 11/15/2024 9:34 AM EDT [facility] ?[address] ? [place], [place] [address] ? Ultrasound Report ? Signed ? Patient: ANJU,ADINA P ?MR#: [id number] ?? : 1995 ?Acct:[id number] ?? Age/Sex: 29 / F ?ADM Date: 11/15/24 ?? Loc: US ? Attending Dr: Rafael Keane D.O. ? Ordering Physician: Rafael Keane D.O. ?? Date of Service: 11/15/24 ?? Procedure(s): US pelvis w/ transvaginal ?? Accession Number(s): [id number] ? cc: Rafael Keane D.O.; LINNEA HACKETT ? [facility] ? [address] ? [place] [address] ? Patient Name: ?? ADINA Timmy JTMAITE ? MRN: [facility]:[id number] ? date: 1995 ?Sex: F ?? Assigned Patient Location: US ?? Current Patient Location: [place] ?? Accession/Order Number: [id number] ?? Exam Date: 11/15/2024 ??07:01 ?Report Date: [...] M.D. ??11/15/2024 9:32 AM ? Dictation Location: [facility]-PC-30 ? Electronically authenticated by: [id number] ??Y ?? Date: 11/15/2024 ??09:32 ? Dictated By: ?Lori Valenzuela M.D. ? Signed By: ?11/15/24933 ? DD/ 0932 ? TD/TT: ? Bias Binding Cutter: Procedure Note Radiology, Radiologist, MD - 11/15/2024 [place] [address] Ultrasound Report Signed Patient: ADINA RENE PMR#: [id number] : 1995Acct:[id number] Age/Sex: 29 / FADM Date: 11/15/24 Loc: US Attending Dr: Rafael Keane D.O. Ordering Physician: Rafael Keane D.O. Date of Service: 11/15/24 Procedure(s): US pelvis w/ transvaginal Accession Number(s): [id number] cc: Rafael Keane D.O.; LINNEA HACKETT The [address] [address] Patient Name: ADINA RENE MRN: [id number] date: 1995 Sex: F Assigned Patient Location: US Current Patient Location: [place] Accession/Order Number: [id number] Exam Date: 11/15/2024 07:01 Report Date: 11/15/2024 [...] Valenzuela M.D. 11/15/2024 9:32 AM Dictation Location: [place] [address] Electronically authenticated by: [id number] Y Date: 509:32 Dictated By: Lori Valenzuela M.D. Signed By:11/15/24 0934 DD/ TD/TT: Bias Binding Cutter: Authorizing ProviderResult TypeResult StatusGeneric External Data Provider CLINISYNC IMAGINGFinal Result * [facility] ID# (10/24/2024 4:03 PM EDT)ComponentValueRef RangeTest Method Analysis TimePerformed AtPathologist SignatureST. [facility] BBID#[id number] (Source)Anatomical Location / LateralityCollection Method / VolumeCollection TimeReceived OjxzHkgqt46/14/2025 4:03 PM EDT10/24/2024 4:17 PM EDT Narrative CLINISYNC - 10/24/2024 4:46 PM EDT [facility] [address] [place] [address] Authorizing ProviderResult TypeResult StatusLinnea Hackett PACLINISYNCFinal ResultPerforming OrganizationAddressCity/State/ZIP CodePhone Number [facility] * [facility] ABSC (10/24/2024 4:03 PM EDT)ComponentValueRef RangeTest MethodAnalysis TimePerformed AtPathologist SignatureFT ABSC GEL INTERPNegativeFTMCSpecimen (Source)Anatomical Location / LateralityCollection Method / VolumeCollection TimeReceived MhxaTvnmi65/14/2025 4:03 PM EDT10/24/2024 4:17 PM EDT Narrative CLINISYMD - 10/24/2024 5:09 PM EDT [facility] [address] [place] [address] Authorizing ProviderResult TypeResult StatusLinnea Hackett PACLINISYNCFinal ResultPerforming OrganizationAddressCity/State/ZIP CodePhone Number [facility] * [facility]/RH HISTORY CHECK (10/24/2024 4:03 PM EDT)ComponentValueRef RangeTest MethodAnalysis TimePerformed AtPathologist SignatureST. [facility] H[facility] CHECK Patient discharged priorFTMCSpecimen (Source)Anatomical Location / Laterality Collection Method / VolumeCollection TimeReceived ZsbcIaocb50/14/2025 4:03 PM EDT10/24/2024 4:17 PM EDT Narrative CLINISYMD - 10/24/2024 8:51 PM EDT [facility] [address] [place] [address] Authorizing ProviderResult TypeResult StatusLinnea Hackett PACLINISYNCFinal ResultPerforming OrganizationAddressty/State/ZIP CodePhone Number [facility] * [facility]/RH (10/24/2024 4:03 PM EDT)ComponentValueRef RangeTest MethodAnalysis TimePerformed AtPathologist SignatureST. [facility]/RHO POSFTMCSpecimen (Source) Anatomical Location / LateralityCollection Method / VolumeCollection Time Received ThuxUxqpn72/14/2025 4:03 PM EDT10/24/2024 4:17 PM EDT Narrative CLINISYNC - 10/24/2024 4:46 PM EDT [facility] [address] [place] [address] Authorizing ProviderResult TypeResult StatusLinnea Hackett PACLINISYNCFinal ResultPerforming OrganizationAddressCity/State/ZIP CodePhone Number CLINISYNC [facility] * Pap Smear (10/23/2024 12:00 AM EDT)Specimen (Source)Anatomical Location / LateralityCollection Method / VolumeCollection TimeReceived TimeSwabCervical swab / Unknown Narrative Authorizing ProviderResult TypeResult StatusFazio Nurse Noms Bcp ObLAB CYTOLOGY ORDERABLESFinal ResultPerforming OrganizationAddressCity/State/ZIP CodePhone Number EXTERNAL LAB * THINPREP PAP AND HPV MRNA E6/E7 W/RFL HPV 16,18/45 (10/26/2022 2:31 PM EDT) Narrative Authorizing ProviderResult TypeResult StatusCorey Diya DOLAB BLOOD ORDERABLES Final ResultPerforming OrganizationAddressCity/State/ZIP CodePhone Number EXTERNAL LAB from Last 3 Months or Most Recently Relevant to Health Maintenance Insurance Care Teams Team MemberRelationshipSpecialtyStart DateEnd Linnea Hackett PA [address] [place] [address] PCP - Medical [employer]08/12/2311 Nickolas Isaacs MD [address] [place] [address] [facility] - [facility]09/28/22 Linnea Hackett PA [address] [place] [address] [facility]ician [facility]09/28/22
[2025-01-24 09:45] LABS: Hematocrit 38.0 % (36.0-48.0); Hemoglobin 12.6 g/dL (12.0-16.0); Immature Granulocytes Abs Auto 0.01 10^3/uL (0.00-0.03); Immature Granulocytes Pct Auto 0.1 % (0.0-0.5); Lymphocytes Absolute Auto 2.3 10^3/uL (1.2-3.8); Mean Corpuscular HGB Conc 33.2 g/dL (29.9-35.2); Mean Corpuscular Hemoglobin 28.7 pg (26.7-34.0); Mean Corpuscular Volume 86.6 fL (81.0-99.0); Platelet Count 312 10^3/uL (150-450); Red Blood Count 4.39 10^6/uL (4.20-5.40); White Blood Count 8.2 10^3/uL (4.0-11.0)
--- NOTE | 2025-01-24 11:15 | PM.ONB ---
Brief Operative Note Date of procedure: 01/24/25 Pre-op diagnosis general: pelvic pain Post-op diagnosis: same as pre-op Procedure: NAME OF PROCEDURE: [diagnostic laparoscopy ] PROCEDURE: The patient was taken back to the Operating Room where she was placed in dorsal lithotomy position after given general anesthesia. The patient was prepped and draped in normal sterile fashion. A sponge stick was placed into the patient's vagina. Attention was turned to the patient's abdomen, where a small umbilical incision was made. The fascia was tented using Tawanda clamps and the fascia was entered sharply. Confirmation of intraabdominal placement of the 10 mm port was confirmed under direct visualization using a laparoscope. The patient's abdomen was then insufflated using CO2 gas with approximately 4 liters. A second port was placed left laterally, this was done under direct visualization with a 5 mm port. Survey of the patient's abdomen demonstrated normal liver and gallbladder. Survey of the patient's pelvic anatomy demonstrated normal appearing rt and lt ovary and tubes as well as normal appearing uterus. No endometrial implants could be noted, no evidence of any pelvic disease was seen, normal appearing pelvic cavity. All instruments were removed from the patient's abdomen. The patient's abdomen was deinsufflated of CO2 gas. The patient tolerated the procedure well. Sponge stick was removed from the patient's vagina. The patient's infraumbilical fascia was closed using #0 Vicryl on a GI needle. The patient's skin was closed laterally and infraumbilically using 4-0 Vicryl. The patient tolerated the procedure well. Sponge, lap and needle counts were correct x 2. The patient was taken to Recovery Room in stable condition. Anesthesia: AZRA Surgeon: Db Keane Gerentological Physiotherapist: Alicia Galdamez Estimated blood loss (mL): 5 Pathology: none sent Condition: stable Disposition: PACU
== END 2025-01-24 14:10 | disposition home or self-care (01) ==
LOC: SURGOUT 09:30
PROVIDERS: PCP Physician Assistant; Visit Provider Obstetrics & Gynecology
PROC: (CPT 840; principal; 2025-01-24 10:45)
DX: N93.8 Other specified abnormal uterine and vaginal bleeding (principal); R10.30 Lower abdominal pain, unspecified; N92.1 Excessive and frequent menstruation with irregular cycle; E66.01 Morbid (severe) obesity due to excess calories; Z68.41 Body mass index [BMI] 40.0-44.9, adult; J45.909 Unspecified asthma, uncomplicated; G90.A Postural orthostatic tachycardia syndrome [POTS]; M54.12 Radiculopathy, cervical region; E03.9 Hypothyroidism, unspecified
CPT/HCPCS: 49320; 36415; 84702; 85025; J1100; J1885; J2003; J2250; J2405; J2704; J3010